=== PATIENT | female | born 1960 | race Hispanic/Latino ===

== ENCOUNTER 2018-05-25 11:38 | Inpatient (IN) | payer OTHER, SELFPAY ==
[2018-05-25 12:08] LABS: Arterial Blood Carboxyhemoglob 1.1 % (0-1.5); Blood Gas Oxyhemoglobin 93.4 % (94-97); Blood O2 Saturation 95.6 % (92-98.5)
[2018-05-25] MEDS ORDERED: FUROSEMIDE 40 MG/4 ML VIAL ONE (12:26)
[2018-05-25 12:33] LABS: Absolute Monocytes 0.7 K/uL (0.1-1.3); Absolute Neutrophil 6.3 K/uL (1.8-8.0); Basophils % 0.8 % (0-1.3); Eosinophils % 2.5 % (0-4.4); Lymphocytes % 21.3 % (15.3-44.8); MCH 27.6 pg (27.0-35.0); MCV 84.7 fL (80-100); MPV 10.1 fL (7.6-11.3); Monocytes % 7.2 % (3.3-12.3); RBC Red Blood Cell Count 4.13 M/uL (3.86-4.86)
[2018-05-25 12:45] LABS: Protime INR 1.03
[2018-05-25 12:57] LABS: ALT/SGPT 20 U/L (12-78); AST/SGOT 24 U/L (15-37); Albumin 3.4 g/dL (3.4-5.0); Alkaline Phosphatase 216 U/L (45-117); BUN Blood Urea Nitrogen 71 mg/dL (7-18); Bicarbonate 23 mmol/L (21-32); Bilirubin Direct 0.1 mg/dL (0-0.2); Bilirubin Total 0.4 mg/dL (0.2-1.0); Glucose Level 242 mg/dL (74-106); Magnesium 2.3 mg/dL (1.8-2.4); NT PRO-BNP 9026 pg/mL (<125); Potassium 4.9 mmol/L (3.5-5.1); Protein, Total 8.1 g/dL (6.4-8.2); Sodium Level 138 mmol/L (136-145); Troponin (Emerg Dept Use Only) < 0.02 ng/mL (0.0-0.045)
--- NOTE | 2018-05-25 13:47 | ER ---
Nurse's Notes [facility] Name: Margarita Dominique Age: 58 yrs Sex: Female : 1960 Arrival Date: 05/25/2018 Time: 11:40 Bed 4 Private MD: Diagnosis: Systolic (congestive) heart failure;Acute respiratory failure with hypoxia;Lobar pneumonia, unspecified organism Presentation: 05/25 11:42 Presenting complaint: Child states: left sided chest pain and SOB started yesterday. sv Transition of care: patient was not received from another setting of care. Onset of symptoms was May 24, 2018. Care prior to arrival: None. 11:42 Method Of Arrival: Wheelchair sv 11:42 Acuity: YEFRI 2 sv 13:53 Risk Assessment: Do you want to hurt yourself or someone else? Patient reports no tw2 desire to harm self or others. Initial Sepsis Screen: Does the patient meet any 2 criteria? No. Patient's initial sepsis screen is negative. Does the patient have a suspected source of infection? No. Patient's initial sepsis screen is negative. Triage Assessment: 11:35 Respiratory: Onset: The symptoms/episode began/occurred yesterday, the patient has tw2 moderate shortness of breath. 11:42 General: Appears distressed, Behavior is calm, cooperative. Pain: Complains of pain in sv anterior aspect of left upper chest and left breast. Neuro: Level of Consciousness is awake, alert, obeys commands, Oriented to person, place, time, situation, Moves all extremities. Full function. Respiratory: Reports shortness of breath at rest on exertion labored breathing since yesterday Respiratory effort is even, labored, Respiratory pattern is symmetrical, tachypnea. Historical: - Allergies: 11:56 No Known Allergies; sv - Home Meds: 14:00 hydralazine 25 mg Oral tab 1 tab 3 times per day [Active]; fluticasone 50 mcg/actuation tw2 nasal spsn 1 spray 2 times per day [Active]; Novolin R 12 units with meal Sub-Q [Active]; amlodipine 10 mg tab 1 tab once daily [Active]; aspirin 81 mg Oral chew 1 tab once daily [Active]; furosemide 20 mg Oral tab 1 tab once daily [Active]; isosorbide dinitrate 30 mg Oral tab 1 tab once per day [Active]; vitamin D 2, 50,000 units once weekly [Active]; clopidogrel 75 mg oral tab 1 tab once daily [Active]; Synthroid 25 mcg Oral tab 1 tab once daily [Active]; gabapentin 100 mg oral cap 1 caps once nightly [Active]; atorvastatin 40 mg oral tab 1 tab once daily [Active]; losartan 100 mg oral tab 1 tab once daily [Active]; cyclobenzaprine 10 mg Oral tab 1 tab once per day [Active]; Lantus 100 unit/mL Sub-Q soln 10 units nightly [Active]; carvedilol 25 mg oral tab 1 tab 2 times per day [Active]; - PMHx: 11:56 heart failure; Hypertension; Diabetes - NIDDM; Hypothyroidism; Vitamin D deficiency; sv - Immunization history:: Adult Immunizations. - Social history:: The patient lives at home, Smoking status: . - Ebola Screening: : Patient denies travel to an Ebola-affected area in the 21 days before illness onset. Screenin:52 Abuse screen: Denies threats or abuse. Nutritional screening: No deficits noted. tw2 Tuberculosis screening: No symptoms or risk factors identified. Fall Risk Secondary diagnosis (15 points) impaired mobility. Assessment: 11:45 General: Appears well groomed, Behavior is drowsy. Pain: Denies pain. Neuro: Level of tw2 Consciousness is awake, obeys commands, Oriented to person, place, situation. Cardiovascular: Rhythm is regular. Respiratory: Airway is patent Respiratory effort is shallow, weak, Respiratory pattern is hypoventilation Breath sounds are diminished bilaterally. GI: No signs and/or symptoms were reported involving the gastrointestinal system. Abdomen is flat. : No signs and/or symptoms were reported regarding the genitourinary system. EENT: No signs and/or symptoms were reported regarding the EENT system. Derm: No signs and/or symptoms reported regarding the dermatologic system. Musculoskeletal: Amputation of Right BKA. 12:55 Reassessment: Patient appears in no apparent distress at this time. No changes from tw2 previously documented assessment. Patient and/or family updated on plan of care and expected duration. Pain level reassessed. 13:47 Reassessment: Patient appears in no apparent distress at this time. No changes from tw2 previously documented assessment. Patient and/or family updated on plan of care and expected duration. Pain level reassessed. 13:47 Reassessment: pts SON: Brian . tw2 14:33 Reassessment: Patient appears in no apparent distress at this time. No changes from tw2 previously documented assessment. Patient and/or family updated on plan of care and expected duration. Pain level reassessed. 15:30 Reassessment: Patient appears in no apparent distress at this time. No changes from tw2 previously documented assessment. Patient and/or family updated on plan of care and expected duration. Pain level reassessed. 16:16 Reassessment: Patient appears in no apparent distress at this time. No changes from tw2 previously documented assessment. Patient and/or family updated on plan of care and expected duration. Pain level reassessed. 17:20 Reassessment: Patient appears in no apparent distress at this time. No changes from tw2 previously documented assessment. Patient and/or family updated on plan of care and expected duration. Pain level reassessed. 18:27 Reassessment: Patient appears in no apparent distress at this time. No changes from tw2 previously documented assessment. Patient and/or family updated on plan of care and expected duration. Pain level reassessed. Vital Signs: 11:43 Pulse Ox 80% on R/A; sv 11:50 BP 203 / 86; Pulse 99; Resp 17; Pulse Ox 92% on 4 lpm NC; tw2 12:22 BP 197 / 93; Pulse 99; Resp 24; Temp 98.3(TE); Pulse Ox 93% on 30% BiPAP; tw2 12:55 BP 195 / 90; Pulse 97; Resp 21; Pulse Ox 93% on BiPAP; tw2 13:45 BP 190 / 91; Pulse 96; Resp 18; Pulse Ox 95% on BiPAP; tw2 14:32 BP 165 / 85; Pulse 95; Resp 16; Pulse Ox 98% on BiPAP; tw2 15:30 BP 187 / 87; Pulse 95; Resp 15; Pulse Ox 99% on BiPAP; tw2 16:15 BP 180 / 97; Pulse 94; Resp 16; Pulse Ox 99% on R/A; tw2 17:00 BP 161 / 73; Pulse 84; Resp 17; Pulse Ox 100% on BiPAP; tw2 18:04 BP 167 / 83; Pulse 90; Resp 17; Pulse Ox 99% on BiPAP; tw2 11:43 Pt placed on O2 \T\ 4L per NC. O2 sat up to 90%. Pt placed on 100% NRB \T\ 1151, O2 sat up sv to 100%. 11:50 pt switched to non-rebreather at this time, will continue to monitor tw2 12:22 rate 16, 10/5 tw2 ED Course: 11:35 Placed in gown. Bed in low position. Side rails up X2. Adult w/ patient. Cardiac tw2 monitor on. Pulse ox on. NIBP on. Warm blanket given. 11:40 Patient arrived in ED. tw3 11:40 Missed attempt(s): 22 gauge in right wrist. Bleeding controlled, band aid applied, tw2 catheter tip intact. Inserted saline lock: 24 gauge in left hand, using aseptic technique. Blood collected. 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 11:52 Sunil Conklin MD is Attending Physician. gs 11:55 Triage completed. sv 12:19 Guadalupe Levy RN is Primary Nurse. tw2 12:19 BIPAP Sent. tw2 12:55 Barreto cath inserted, using sterile technique, 18 Fr., by tx, balloon inflated, to tw2 gravity drainage, returned TIFFANY Courtney \T\ TIFFANY Paredes served as analyst microbiology lab. Patient tolerated well. 13:10 XRAY Chest (1 view) In Process Unspecified. EDMS 13:45 Dylon Gomez MD is Hospitalizing Provider. gs 15:58 Blood Culture* Sent. tw2 18:26 No provider procedures requiring assistance completed. Patient admitted, IV remains in tw2 place. Administered Medications: 13:00 Drug: Lasix 80 mg Route: IVP; Site: left hand; tw2 13:47 Follow up: Response: No adverse reaction tw2 14:07 Drug: hydrALAZINE 10 mg Route: IV; Rate: calculated rate; Site: left hand; tw2 14:10 Follow up: Response: No adverse reaction; IV Status: Completed infusion tw2 18:25 Follow up: Response: No adverse reaction; Blood pressure is lowered; 2nd dose not given tw2 per pts bp 16:05 Drug: Rocephin - (cefTRIAXone) 1 grams Route: IVPB; Infused Over: 5 mins; Site: left tw2 hand; 16:10 Follow up: Response: No adverse reaction; IV Status: Completed infusion tw2 16:15 Drug: LevaQUIN 500 mg Volume: 100 ml; Route: IVPB; Infused Over: 60 mins; Site: left tw2 hand; 17:15 Follow up: Response: No adverse reaction; IV Status: Completed infusion tw2 Point of Care Testing: Blood Glucose: 12:58 Blood Glucose: 273 mg/dL; tw2 15:54 Blood Glucose: 261 mg/dL; tw2 Ranges: Intake: Outcome: 13:47 Decision to Hospitalize by Provider. gs 18:26 Admitted to Med/surg accompanied by tech, via stretcher, room 429, with oxygen, with tw2 chart, Report called to tiffany Chowdary 18:26 Condition: stable 18:26 Instructed on the need for admit. 18:28 Patient left the ED. tw2 Signatures: Dispatcher [employer] Madeleine Marinelli RN RN Guadalupe Levy RN RN tw2 Devin, Maribel tw3 Sunil Conklin MD MD Corrections: (The following items were deleted from the chart) 18:02 12:22 BP 197 / 93; Pulse 99bpm; Resp 24bpm; Pulse Ox 93% 02 30% BiPAP; Temp 98.3F tw2 Temporal; rate 10/5; tw2 18:26 18:04 BP 167 / 3; Pulse 90bpm; Resp 17bpm; Pulse Ox 99% BiPAP; tw2 tw2
--- NOTE | 2018-05-25 13:47 | EDPHYS ---
Physician Documentation [facility] Name: Margarita Dominique Age: 58 yrs Sex: Female : 1960 Arrival Date: 05/25/2018 Time: 11:40 Bed 4 Private MD: ED Physician Sunil Conklin HPI: 05/25 13:34 This 58 yrs old Female presents to ER via Wheelchair with complaints of Breathing gs Difficulty. 13:34 The patient has shortness of breath at rest. Onset: The symptoms/episode began/occurred gs today. Duration: The symptoms are continuous. The patient's shortness of breath has no apparent modifying factors. Associated signs and symptoms: Pertinent negatives: non-productive cough, productive cough, fever. Severity of symptoms: At their worst the symptoms were severe in the emergency department the symptoms are unchanged. The patient has experienced similar episodes in the past, a few times. Historical: - Allergies: 11:56 No Known Allergies; sv - Home Meds: 14:00 hydralazine 25 mg Oral tab 1 tab 3 times per day [Active]; fluticasone 50 mcg/actuation tw2 nasal spsn 1 spray 2 times per day [Active]; Novolin R 12 units with meal Sub-Q [Active]; amlodipine 10 mg tab 1 tab once daily [Active]; aspirin 81 mg Oral chew 1 tab once daily [Active]; furosemide 20 mg Oral tab 1 tab once daily [Active]; isosorbide dinitrate 30 mg Oral tab 1 tab once per day [Active]; vitamin D 2, 50,000 units once weekly [Active]; clopidogrel 75 mg oral tab 1 tab once daily [Active]; Synthroid 25 mcg Oral tab 1 tab once daily [Active]; gabapentin 100 mg oral cap 1 caps once nightly [Active]; atorvastatin 40 mg oral tab 1 tab once daily [Active]; losartan 100 mg oral tab 1 tab once daily [Active]; cyclobenzaprine 10 mg Oral tab 1 tab once per day [Active]; Lantus 100 unit/mL Sub-Q soln 10 units nightly [Active]; carvedilol 25 mg oral tab 1 tab 2 times per day [Active]; - PMHx: 11:56 heart failure; Hypertension; Diabetes - NIDDM; Hypothyroidism; Vitamin D deficiency; sv - Immunization history:: Adult Immunizations. - Social history:: The patient lives at home, Smoking status: . - Ebola Screening: : Patient denies travel to an Ebola-affected area in the 21 days before illness onset. ROS: 13:34 All other systems are negative. gs Exam: 13:34 Head/Face: Normocephalic, atraumatic. Eyes: Pupils equal round and reactive to light, gs extra-ocular motions intact. Lids and lashes normal. Conjunctiva and sclera are non-icteric and not injected. Cornea within normal limits. Periorbital areas with no swelling, redness, or edema. ENT: Nares patent. No nasal discharge, no septal abnormalities noted. Tympanic membranes are normal and external auditory canals are clear. Oropharynx with no redness, swelling, or masses, exudates, or evidence of obstruction, uvula midline. Mucous membranes moist. Neck: Trachea midline, no thyromegaly or masses palpated, and no cervical lymphadenopathy. Supple, full range of motion without nuchal rigidity, or vertebral point tenderness. No Meningismus. Chest/axilla: Normal chest wall appearance and motion. Nontender with no deformity. No lesions are appreciated. 13:34 Abdomen/GI: Soft, non-tender, with normal bowel sounds. No distension or tympany. No guarding or rebound. No evidence of tenderness throughout. Back: No spinal tenderness. No costovertebral tenderness. Full range of motion. Skin: Warm, dry with normal turgor. Normal color with no rashes, no lesions, and no evidence of cellulitis. Neuro: Awake and alert, GCS 15, oriented to person, place, time, and situation. Cranial nerves II-XII grossly intact. Motor strength 5/5 in all extremities. Sensory grossly intact. Cerebellar exam normal. Normal gait. 13:34 Constitutional: The patient appears alert, awake, in obvious distress, severely distressed. 13:34 Cardiovascular: Rate: tachycardic, Rhythm: regular, Pulses: no pulse deficits are appreciated. 13:34 ECG was reviewed by the Attending Physician. 13:34 Respiratory: severe repiratory distress is noted, Respirations: tachypnea, Breath sounds: rales, that are moderate, are located in both bases. 13:34 Musculoskeletal/extremity: Perfusion: the patient is warm, Edema, 2+ to the left midcalf and left ankle is noted, amputation on rle. Vital Signs: 11:43 Pulse Ox 80% on R/A; sv 11:50 BP 203 / 86; Pulse 99; Resp 17; Pulse Ox 92% on 4 lpm NC; tw2 12:22 BP 197 / 93; Pulse 99; Resp 24; Temp 98.3(TE); Pulse Ox 93% on 30% BiPAP; tw2 12:55 BP 195 / 90; Pulse 97; Resp 21; Pulse Ox 93% on BiPAP; tw2 13:45 BP 190 / 91; Pulse 96; Resp 18; Pulse Ox 95% on BiPAP; tw2 14:32 BP 165 / 85; Pulse 95; Resp 16; Pulse Ox 98% on BiPAP; tw2 15:30 BP 187 / 87; Pulse 95; Resp 15; Pulse Ox 99% on BiPAP; tw2 16:15 BP 180 / 97; Pulse 94; Resp 16; Pulse Ox 99% on R/A; tw2 17:00 BP 161 / 73; Pulse 84; Resp 17; Pulse Ox 100% on BiPAP; tw2 18:04 BP 167 / 83; Pulse 90; Resp 17; Pulse Ox 99% on BiPAP; tw2 11:43 Pt placed on O2 \T\ 4L per NC. O2 sat up to 90%. Pt placed on 100% NRB \T\ 1151, O2 sat up sv to 100%. 11:50 pt switched to non-rebreather at this time, will continue to monitor tw2 12:22 rate 16, 03/26 tw2 MDM: 11:56 Patient medically screened. gs 13:34 Differential diagnosis: CHF exacerbation, Chronic Obstructive Pulmonary Disease gs Myocardial Infarction pulmonary edema. Data reviewed: vital signs, nurses notes. 05/25 11:57 Order name: Basic Metabolic Panel; Complete Time: 13:16 05/25 11:57 Order name: CBC with Diff; Complete Time: 13:16 05/25 11:57 Order name: LFT's; Complete Time: 13:16 05/25 11:57 Order name: Magnesium; Complete Time: 13:16 05/25 11:57 Order name: NT PRO-BNP; Complete Time: 13:16 05/25 11:57 Order name: PT-INR; Complete Time: 13:16 05/25 11:57 Order name: Troponin (emerg Dept Use Only); Complete Time: 13:16 05/25 11:57 Order name: XRAY Chest (1 view); Complete Time: 15:35 gs 05/25 11:57 Order name: BIPAP 05/25 11:57 Order name: ABG 05/25 15:36 Order name: Blood Culture* 05/25 11:54 Order name: EKG; Complete Time: 11:54 sv 05/25 11:54 Order name: EKG - Nurse/Tech; Complete Time: 13:49 sv 05/25 11:57 Order name: Cardiac monitoring; Complete Time: 12:19 05/25 11:57 Order name: IV Saline Lock; Complete Time: 12:19 gs 05/25 11:57 Order name: Labs collected and sent; Complete Time: 12:19 05/25 11:57 Order name: O2 Per Protocol; Complete Time: 12:19 05/25 11:57 Order name: O2 Sat Monitoring; Complete Time: 12:19 gs EC:34 Rate is 100 beats/min. Rhythm is regular. RI interval is normal. QRS interval is gs normal. QT interval is normal. T waves are Inverted. Clinical impression: Abnormal EKG without significant change. Interpreted by me. Administered Medications: 13:00 Drug: Lasix 80 mg Route: IVP; Site: left hand; tw2 13:47 Follow up: Response: No adverse reaction tw2 14:07 Drug: hydrALAZINE 10 mg Route: IV; Rate: calculated rate; Site: left hand; tw2 14:10 Follow up: Response: No adverse reaction; IV Status: Completed infusion tw2 18:25 Follow up: Response: No adverse reaction; Blood pressure is lowered; 2nd dose not given tw2 per pts bp 16:05 Drug: Rocephin - (cefTRIAXone) 1 grams Route: IVPB; Infused Over: 5 mins; Site: left tw2 hand; 16:10 Follow up: Response: No adverse reaction; IV Status: Completed infusion tw2 16:15 Drug: LevaQUIN 500 mg Volume: 100 ml; Route: IVPB; Infused Over: 60 mins; Site: left tw2 hand; 17:15 Follow up: Response: No adverse reaction; IV Status: Completed infusion tw2 Point of Care Testing: Blood Glucose: 12:58 Blood Glucose: 273 mg/dL; tw2 15:54 Blood Glucose: 261 mg/dL; tw2 Ranges: Critical Glucose Levels:Adult <50 mg/dl or >400 mg/dl <40 mg/dl or >180 mg/dl Disposition: 13:34 Critical Care:. Disposition: 05/25/18 13:47 Hospitalization ordered by Dylon Gomez for Inpatient Admission. Preliminary diagnosis are Systolic (congestive) heart failure, Acute respiratory failure with hypoxia, Lobar pneumonia, unspecified organism. - Bed requested for Telemetry/MedSurg (Inpatient). - Status is Inpatient Admission. tw2 - Condition is Stable. - Problem is new. - Symptoms have improved. UTI on Admission? No Critical care time excluding procedures: 13:34 Critical care time: Bedside Care: 10 minutes, Consultation: 10 minutes, Family gs Intervention: 10 minutes. Total time: 30 minutes Signatures: Dispatcher [employer] EDMadeleine Yao RN RN Guadalupe Levy RN RN tw2 Sunil Conklin MD MD Ricarda Pablo Corrections: (The following items were deleted from the chart) 15:36 13:47 Hospitalization Ordered by Dylon Gomez MD for Inpatient Admission. Preliminary gs diagnosis is Systolic (congestive) heart failure; Acute respiratory failure with hypoxia. Bed requested for Telemetry/MedSurg (Inpatient). Status is Inpatient Admission. Condition is Stable. Problem is new. Symptoms have improved. UTI on Admission? No. gs 17:17 15:36 05/25/2018 13:47 Hospitalization Ordered by Dylon Gomez MD for Inpatient eb Admission. Preliminary diagnosis is Systolic (congestive) heart failure; Acute respiratory failure with hypoxia; Lobar pneumonia, unspecified organism. Bed requested for Telemetry/MedSurg (Inpatient). Status is Inpatient Admission. Condition is Stable. Problem is new. Symptoms have improved. UTI on Admission? No. gs 18:28 17:17 05/25/2018 13:47 Hospitalization Ordered by Dylon Gomez MD for Inpatient tw2 Admission. Preliminary diagnosis is Systolic (congestive) heart failure; Acute respiratory failure with hypoxia; Lobar pneumonia, unspecified organism. Bed requested for Telemetry/MedSurg (Inpatient). Status is Inpatient Admission. Condition is Stable. Problem is new. Symptoms have improved. UTI on Admission? No. eb
[2018-05-25] MEDS ORDERED: HYDRALAZINE HCL 20 MG/ML VIAL ONE (14:12)
--- NOTE | 2018-05-25 14:19 | RAD REPORT ---
EXAM DESCRIPTION: Litzy Single View05/25/2018 1:09 pm CLINICAL HISTORY: Chest pain COMPARISON: none FINDINGS: Right basilar consolidation. Mild additional bilateral pulmonary opacities. The heart is mildly enlarged IMPRESSION: Right basilar consolidation probably representing pneumonia. This should be followed un til it is clear to help exclude a post obstructive process/underlying mass Mild additional bilateral pulmonary opacities may represent superimposed mild interstitial pulmonary edema
[2018-05-25] MEDS ORDERED: CEFTRIAXONE/SWI 1gm 1 GM/10 ML SYR ONE (16:09)
[2018-05-25] MEDS ORDERED: Levofloxacin500mg IV 500 MG/100 ML BAG IV ONE (16:09)
[2018-05-25] MEDS ORDERED: ENOXAPARIN 40 MG/0.4 ML SQ SCH (21:00)
[2018-05-25] MEDS: INSULIN -REGULAR HUMAN 50 UNIT/0.5 ML ML SQ SCH (21:10)
[2018-05-25] MEDS: ENOXAPARIN 30 MG/0.3 ML SQ SCH (21:10)
--- NOTE | 2018-05-25 22:41 | EKG ---
Test Date: 2018-05-25 Test Time: 11:46:36 Suture Winder Hand: MELODY MEASUREMENT RESULTS: Intervals: Rate: 100 AK: 154 QRSD: 96 QT: 358 QTc: 461 [place]: P: 70 AK: 154 QRS: 71 T: 259 INTERPRETIVE STATEMENTS: Normal sinus rhythm Nonspecific ST and T wave abnormality Prolonged QT Abnormal ECG No previous ECG available for comparison Electronically Signed On 05-25-18 22:41:14 [employer] H[employer] by Samy Bertrand
[2018-05-26 06:44] LABS: Absolute Lymphocytes (CBC) 2.4 K/uL (0.7-4.9); Absolute Monocytes 0.7 K/uL (0.1-1.3); Absolute Neutrophil 5.1 K/uL (1.8-8.0); Basophils % 0.6 % (0-1.3); Eosinophils % 2.2 % (0-4.4); Hematocrit 28.9 % (36.0-45.0); Lymphocytes % 28.8 % (15.3-44.8); MCH 27.8 pg (27.0-35.0); MCV 85.1 fL (80-100); MPV 10.1 fL (7.6-11.3); Monocytes % 8.4 % (3.3-12.3)
[2018-05-26 07:00] LABS: Albumin 2.5 g/dL (3.4-5.0); Bilirubin Total 0.3 mg/dL (0.2-1.0); Potassium 4.5 mmol/L (3.5-5.1); Protein, Total 6.3 g/dL (6.4-8.2)
[2018-05-26] MEDS: INSULIN -REGULAR HUMAN 50 UNIT/0.5 ML ML SQ SCH ×4 (07:30→21:09)
[2018-05-26] MEDS: ENOXAPARIN 30 MG/0.3 ML SQ SCH (08:17)
--- NOTE | 2018-05-26 08:50 | P.HP ---
Certification for Inpatient Patient admitted to: Inpatient With expected LOS: >2 Midnights Patient will require the following post-hospital care: None Practitioner: I am a practitioner with admitting privileges, knowledge of patient current condition, hospital course, and medical plan of care. Services: Services provided to patient in accordance with Admission requirements found in Title 42 Section 412.3 of the Code of Federal Regulations Patient History Date of Service: 05/25/18 Reason for admission: Shortness of breath/respiratory failure History of Present Illness: Patient is a 58-year-old female who came to the hospital with shortness of breath. Patient has been having difficulty with her breathing for the last couple of days. Her symptoms have gradually worsened. She came into the hospital for further evaluation. Patient had malignant hypertension. Blood pressure was 200/100 on arrival. Patient was started on IV diuretics. Patient was initially on BiPAP and this is weaned off. Currently on 3 L. Patient will be admitted to the hospital workup for congestive heart failure. Patient will also need renal Consult for acute on chronic kidney failure. Will get a renal ultrasound as well. Allergies No Known Allergies Allergy (Unverified 05/25/18 16:13) Home Medications: Amlodipine [Norvasc*] 10 mg PO DAILY 05/26/18 Aspirin [Aspirin EC 81 MG] 81 mg PO DAILY 05/26/18 Atorvastatin Calcium [Lipitor*] 40 mg PO DAILY 05/26/18 Carvedilol [Coreg*] 25 mg PO BID 05/26/18 Clopidogrel Bisulfate [Clopidogrel] 75 mg PO DAILY 05/26/18 Cyclobenzaprine [Flexeril*] 10 mg PO DAILY 05/26/18 Ergocalciferol (Vitamin D2) [Vitamin D2] 50,000 units PO EVERY 7TH DAY 05/26/18 Fluticasone [Flonase 50MCG Nasal [place]*] 2 puff IH DAILY 05/26/18 Furosemide [Lasix*] 20 mg PO DAILY 05/26/18 Gabapentin [Neurontin*] 100 mg PO BEDTIME 05/26/18 Hydralazine [Apresoline*] 25 mg PO TID 05/26/18 Insulin -Regular Human [Novolin -R*] See Protocol SQ AC 05/26/18 Insulin Glargine Human [Lantus*] 10 units SQ BEDTIME 05/26/18 Isosorbide Dinitrate 30 mg PO DAILY 05/26/18 Levothyroxine [Synthroid*] 25 mcg PO DAILY 05/26/18 Losartan Potassium 100 mg PO DAILY 05/26/18 - Past Medical/Surgical History Has patient received pneumonia vaccine in the past: Yes Diabetic: Yes -: HTN -: DM -: "thyroid issues" -: stroke X2 with weakness to L eye and poor L eye vision -: cardiac stent X1 -: cholecystectomy - Family History Father Medical History: Diabetes Mother Medical History: Heart disease, Hypertension, Diabetes - Social History Smoking Status: Never smoker Alcohol use: No CD- Drugs: No Caffeine use: Yes Place of Residence: Home Review of Systems 10-point ROS is otherwise unremarkable Physical Examination - Vital Signs Temperature: 99.3 F Blood Pressure: 168/78 Pulse: 85 Respirations: 19 Pulse Ox (%): 99 - Physical Exam General: Alert, In no apparent distress, Oriented x3 HEENT: Atraumatic, PERRLA, Mucous membr. moist/pink, EOMI, Sclerae nonicteric Neck: Supple, 2+ carotid pulse no bruit, No LAD, Without JVD or thyroid abnormality Respiratory: Diminished, Crackles/rales Cardiovascular: Regular rate/rhythm, Normal S1 S2, Systolic murmur Gastrointestinal: Normal bowel sounds, Soft and benign, Non-distended, No tenderness Musculoskeletal: No clubbing, No tenderness, Swelling Integumentary: No rashes Neurological: Normal gait, Normal speech, Normal strength at 5/5 x4 extr, Normal tone, Sensation intact, Cranial nerves 3-12 intact, Normal affect Lymphatics: No axilla or inguinal lymphadenopathy - Studies Laboratory Data (last 24 hrs) 05/25/18 12:17: PT 12.2, INR 1.03 05/25/18 12:17: WBC 9.2, Hgb 11.4 L, Hct 35.0 L, Plt Count 226 05/25/18 12:17: Sodium 138, Potassium 4.9, BUN 71 H, Creatinine 4.50 H, Glucose 242 H, Magnesium 2.3, Total Bilirubin 0.4, AST 24, ALT 20, Alkaline Phosphatase 216 H Assessment & Plan - Problems (Diagnosis) (1) Congestive heart failure Current Visit: Yes Status: Acute (2) Chronic kidney failure Current Visit: Yes Status: Acute (3) Hypoalbuminemia Current Visit: Yes Status: Acute (4) CVA (cerebral vascular accident) Current Visit: Yes Status: Acute (5) HTN (hypertension) Current Visit: Yes Status: Acute (6) DM2 (diabetes mellitus, type 2) Current Visit: Yes Status: Acute - Plan 1. Echocardiogram 2. No ESTEFANY inhibitor or an ARB secondary to renal function 3. Low dose Beta vern 4. Nephrology consultation 5. Monitor renal function 6. Strict I's and O's 7. Repeat CXR 8. Daily weights 9. Education regarding diet and treatment of congestive heart failure Discharge Plan: Home Plan to discharge in: Greater than 2 days - Advance Directives Does patient have a Living Will: No Does patient have a Durable POA for Healthcare: No - Code Status/Comfort Care Code Status Assessed: Yes Code Status: Full Code Critical Care: No Time Spent Managing PTS Care (In Minutes): 50
[2018-05-26] MEDS ORDERED: FLUTICASONE IH SCH (09:00)
[2018-05-26] MEDS ORDERED: LOSARTAN POTASSIUM 50 MG TABLET PO SCH (09:00)
[2018-05-26] MEDS ORDERED: DRISDOL (VITAMIN D=ERGOCALCIFEROL) 50000 UNIT CAP PO SCH (09:00)
[2018-05-26 09:53] LABS: Thyroid Stimulating Hormone 1.8 uIU/mL (0.360-3.740)
[2018-05-26] MEDS: ASPIRIN EC 81 MG TAB PO SCH (10:02)
[2018-05-26] MEDS: CYCLOBENZAPRINE 10 MG TAB PO SCH (10:02)
[2018-05-26] MEDS: HYDRALAZINE HCL 25 MG TABLET PO SCH ×3 (10:02→21:07)
[2018-05-26] MEDS: CLOPIDOGREL 75 MG TABLET PO SCH (10:02)
[2018-05-26] MEDS: CARVEDILOL 25 MG TAB PO SCH ×2 (10:03→21:07)
[2018-05-26] MEDS: AMLODIPINE 10 MG TAB PO SCH (10:03)
--- NOTE | 2018-05-26 10:13 | ECHO ---
HEIGHT: 5 ft 3 in WEIGHT: 148 lb 0 oz DATE OF STUDY: 05/26/[address]: Delfin Kamara MD 2-DIMENSIONAL: YES M.MODE: YES DOPPLER: YES COLOR FLOW: YES TDS: NO PORTABLE: NO DEFINITY: NO BUBBLE STUDY: NO DIAGNOSIS: CONGESTIVE HEART FAILURE CARDIAC HISTORY: CATHERIZATION: NO SURGERY: NO PROSTHETIC VALVE: NO PACEMAKER: NO MEASUREMENTS (cm) DIASTOLIC (NORMALS) SYSTOLIC (NORMALS) IVSd 1.1 (0.6-1.2) LA Diam 3.7 (1.9-4.0) LVEF 52% LVIDd 4.5 (3.5-5.7) LVIDs 3.3 (2.0-3.5) %FS 26% LVPWd 1.2 (0.6-1.2) Ao Diam 2.2 (2.0-3.7) 2 DIMENSIONAL ASSESSMENT: RIGHT ATRIUM: NORMAL LEFT ATRIUM: NORMAL RIGHT VENTRICLE: NORMAL LEFT VENTRICLE: NORMAL TRICUSPID VALVE: NORMAL MITRAL VALVE: NORMAL PULMONIC VALVE: NORMAL AORTIC VALVE: NORMAL PERICARDIAL EFFUSION: SMALL AORTIC ROOT: NORMAL LEFT VENTRICULAR WALL MOTION: NORMAL DOPPLER/COLOR FLOW: TRACE TRICUSPID REGURGITATION. MILD MITRAL REGURGITATION. NORMAL RIGHT VENTRICULAR SYSTOLIC PRESSURE. COMMENTS: NORMAL LEFT VENTRICULAR EJECTION FRACTION. SMALL PERICARDIAL EFFUSION. TRACE TRICUSPID REGURGITATION. MILD MITRAL REGURGITATION. TECHNOLOGIST: Brooklyn BEE
--- NOTE | 2018-05-26 10:59 | RAD REPORT ---
EXAM DESCRIPTION: US - Renal Ultrasound-Complete - 05/26/2018 10:36 am CLINICAL HISTORY: . Acute renal insufficiency COMPARISON: None. FINDINGS: The right kidney measures 9 cm with an increased echotexture. The left kidney measures 11 cm with an increased echotexture. Hydronephrosis is not seen. The bladder was poorly visualized as it is decompressed IMPRESSION: Increased renal echotexture consistent with parenchymal disease
[2018-05-26] MEDS: ISOSORBIDE DINIT 20 MG TAB PO SCH ×2 (11:16→21:07)
[2018-05-26 11:17] LABS: Absolute Lymphocytes (CBC) 2.1 K/uL (0.7-4.9); Absolute Monocytes 0.6 K/uL (0.1-1.3); Absolute Neutrophil 6.2 K/uL (1.8-8.0); Basophils % 0.8 % (0-1.3); Eosinophils % 2.1 % (0-4.4); Hematocrit 31.1 % (36.0-45.0); Lymphocytes % 23.1 % (15.3-44.8); MCH 27.6 pg (27.0-35.0); MCV 84.3 fL (80-100); Monocytes % 6.7 % (3.3-12.3); RBC Red Blood Cell Count 3.69 M/uL (3.86-4.86)
[2018-05-26 12:10] LABS: Magnesium 2.4 mg/dL (1.8-2.4); Phosphorus 4.9 mg/dL (2.5-4.9); Troponin I 0.12 ng/mL (0.0-0.045)
[2018-05-26] MEDS ORDERED: CEFAZOLIN 1GM (PREMIX IV) 1 GM/50 ML BAG IVPB SCH (12:45)
[2018-05-26 15:05] LABS: Urine Appearance CLEAR; Urine Bilirubin NEGATIVE (NEG); Urine Blood 2+ (NEG); Urine Color YELLOW; Urine Glucose 2+ (NEG); Urine Protein 3+ (NEG); Urine Specific Gravity 1.015 (1.005-1.030); Urine Urobilinogen 0.2 mg/dL (0.2-1.0); Urine pH 6.5 (5.0-7.0)
[2018-05-26 15:59] LABS: Urine Bacteria 20-50 /HPF (<20); Urine Culture Reflex Order REFLEXED; Urine RBC 20-50 /HPF (NONE SEEN)
[2018-05-26] MEDS: FUROSEMIDE 40 MG/4 ML VIAL IV SCH (17:01)
--- NOTE | 2018-05-26 17:44 | CON ---
Date of Consultation: 05/26/2018 Reason: The patient needs dialysis. History Of Present Illness: The patient is a 58-year-old female, who came in with shortness of breat h. Workup revealed acute renal failure. She had a history of chronic kidney disease. She also had congestive heart failure, and once it was evaluated that she needs dialysis, I was consulted. She is awake, alert, and denies any fevers or chills. No sore throat, runny nose, cough, headaches, or diz ziness. No chest pain. Review of Systems: Otherwise, unremarkable. Past Medical History: Significant for hypertension, diabetes, stroke, cardiac stent x1 and now acute renal failure on chronic kidney disease. Past Surgical History: Cholecystectomy. Allergies: NO ALLERGIES. Social History: She denies smoking or drinking. Family History: Significant for diabetes, heart disease, and hypertension. Physical Examination: Vital Signs: Stable. She is afebrile. General: She is awake, alert, and oriented x3. Head and Neck: Cranial nerves 2 through 12 are grossly within normal limits. Neck: No neck masses. No JVD. Throat clear. Neck is supple. Chest: Clear. Heart: S1, S2. Abdomen: Soft. Extremities: Neurovascularly intact. Neuro: Nonfocal. Diagnostic Data: White count is 9.2, H and H is 10.2 and 31.1, platelets 200, INR is 1.03. Chemistr y reveals BUN of 74, creatinine of 4.3, which is actually gotten worse since [facility]. The BUN has gone up, creatinine is slightly less. Assessment: A 58-year-old female with multiple medical problems, acute renal failure. Recommendation: We will schedule the patient for chest tube catheter placement. The patient via tra nslator understands the risks, benefits, and alternatives and agrees to procedure. /MODL Voice ID: [id number] Report ID: [id number]
--- NOTE | 2018-05-26 18:40 | P.PN ---
Subjective Date of Service: 05/27/18 Chief Complaint: Shortness of breath/respiratory failure Physical Examination - Vital Signs Temperature: 99.2 F Blood Pressure: 122/60 Pulse: 78 Respirations: 16 Pulse Ox (%): 95 Assessment And Plan - Plan - Problems (Diagnosis) (1) Congestive heart failure Current Visit: Yes Status: Acute (2) Chronic kidney failure Current Visit: Yes Status: Acute (3) Hypoalbuminemia Current Visit: Yes Status: Acute (4) CVA (cerebral vascular accident) Current Visit: Yes Status: Acute (5) HTN (hypertension) Current Visit: Yes Status: Acute (6) DM2 (diabetes mellitus, type 2) Current Visit: Yes Status: Acute - Plan 1. Echocardiogram normal with ejection fraction of 52 % 2. No ESTEFANY inhibitor or an ARB secondary to renal function 3. Low dose Beta vern 4. Nephrology consultation, recommendations appreciated. 5. Monitor renal function 6. Strict I's and O's 7. General surgery consulted for dialysis catheter placement. 8. Daily weights 9. Education regarding diet and treatment of congestive heart failure
[2018-05-26] MEDS: ATORVASTATIN 40 MG TAB PO SCH (21:07)
[2018-05-26] MEDS: GABAPENTIN 100 MG CAP PO SCH (21:07)
[2018-05-26] MEDS: INSULIN GLARGINE 100 UNITS/ML SQ SCH (21:09)
[2018-05-26] MEDS: CALCITROL 0.25 MCG CAP PO SCH (22:37)
--- NOTE | 2018-05-27 01:49 | CON ---
Date of Consultation: 05/26/2018 Additional Consulting Physician: Dr. Kamara. Reason For Consultation: Elevated BUN and creatinine, fluid management. History Of Present Illness: This is a pleasant 58-year-old female with significant past medical hist ory of diabetes complicated with neuropathy, nephropathy, and retinopathy, hypertension, hyperlipidem ia, chronic kidney disease. According to the family, the patient seen by her primary care and she wa s referred to Nephrology, but she never went there. Mentioned that she going to need to be on dialys is. Apparently, her lab back in March her GFR of 13, creatinine 3.7. The patient had peripheral v ascular disease, status post right below-knee amputation. The patient was in her regular state of he alth until couple of days ago when she started having increase in her shortness of breath and chest t ightness. For that reason, she came to the hospital, found to have elevated BUN and creatinine, BUN 74, creatinine of 4.3. For that reason, the patient was admitted and we have been consulted. The jim hansen denied taking any nonsteroidal. The patient been on ESTEFANY inhibitor. Past Medical History: Include: 1.Hypertension. 2.Hyperlipidemia. 3.Coronary artery disease. 4.Peripheral vascular disease. 5.Chronic kidney disease stage 4/5 secondary to diabetes. Social History: Denies smoking. Denies drinking. Denies drugs abuse. Past Surgical History: Include right below-knee amputation. Family History: Positive for diabetes and hypertension. Allergies: NO KNOWN DRUGS ALLERGY. Review of Systems: Head and Neck: No red eye. No ear pain. GI: No nausea, no vomiting. : No polyuria, no dysuria, no hematuria. Glassware Verifier: No vaginal discharge. Respiratory: Has shortness of breath. Cardiovascular: Has orthopnea. Endocrine: No polydipsia. Skin: No rash. Neuro: Has neuropathy. Musculoskeletal: Has leg pain. Medications: Home medications include losartan, carvedilol, insulin, levothyroxine, atorvastatin, La six, amlodipine and hydralazine. Current medications in the hospital include losartan, insulin, levothyroxine, isosorbide, atorvastati n, and Norvasc. Physical Examination: Vital Signs: Blood pressure 133/63, pulse of 84. Chest: Crackles on the base. Heart: S1, S2. Systolic murmur. Abdomen: Soft, nontender. Extremity: Right below-knee amputation. Trace edema. Neurological: Alert, oriented x3. No focal. No tremor. Laboratory Data: Sodium 141, potassium 5, bicarb 23, BUN 74, creatinine 4.3, calcium 8.5, phosphorus 4.9, magnesium 2.4. WBC 9.2, H and H 10.2/31.1, platelet of 200. Assessment And Plan: 1.Chronic kidney disease stage 5 progression to end-stage renal disease, need to be started on dialy sis. I am going to arrange for PermCath placement and we will start the patient on dialysis upon yancy cement of the catheter. 2.Hypertension. We will utilize blood pressure for more ultrafiltration and diuresis. I am going t o go ahead and discontinue losartan for the time being. Hold hydralazine for now. 3.Anemia of chronic kidney disease. We will send for anemia workup and we will follow up. 4.Secondary hyperparathyroidism. We will start the patient on calcitriol. 5.Diabetes as by primary. 6.Congestive heart failure, over volume secondary to renal failure, cardiorenal. We will continue d iuresis. We will ultrafiltrate the patient. Thank you Dr. Kamara for allowing us to participate in the care of your patient. RAQUEL/EDOUARD Voice ID: [id number] Report ID: [id number]
[2018-05-27] MEDS: LEVOTHYROXINE SOD 0.025 MG TAB PO SCH (06:30)
[2018-05-27 07:25] LABS: Absolute Monocytes 0.7 K/uL (0.1-1.3); Absolute Neutrophil 5.2 K/uL (1.8-8.0); Basophils % 0.6 % (0-1.3); Eosinophils % 3.1 % (0-4.4); Hematocrit 29.1 % (36.0-45.0); MCH 27.8 pg (27.0-35.0); MCV 84.2 fL (80-100); MPV 9.8 fL (7.6-11.3); Monocytes % 8.1 % (3.3-12.3); RBC Red Blood Cell Count 3.46 M/uL (3.86-4.86)
[2018-05-27] MEDS: INSULIN -REGULAR HUMAN 50 UNIT/0.5 ML ML SQ SCH ×4 (07:30→21:00)
[2018-05-27] MEDS ORDERED: NS 0.9% VIAL 10 ML ONE (08:31)
[2018-05-27] MEDS ORDERED: HEPARIN 5000 UNIT/ML 1 ML VIAL ONE (08:31)
[2018-05-27] MEDS ORDERED: NA CHLORIDE 0.9% 100 ML IV ONE (08:31)
[2018-05-27 08:36] LABS: Rheumatoid Factor NEG (NEG)
[2018-05-27] MEDS ORDERED: NA CHLORIDE 0.9% 500 ML ONE (08:41)
[2018-05-27] MEDS ORDERED: CEFAZOLIN 1GM (PREMIX IV) 1 GM/50 ML BAG ONE (08:50)
[2018-05-27] MEDS: FUROSEMIDE 40 MG/4 ML VIAL IV SCH ×2 (09:00→19:30)
[2018-05-27] MEDS: CARVEDILOL 25 MG TAB PO SCH ×2 (09:00→23:31)
[2018-05-27] MEDS: CYCLOBENZAPRINE 10 MG TAB PO SCH (09:00)
[2018-05-27] MEDS: AMLODIPINE 10 MG TAB PO SCH (09:00)
[2018-05-27] MEDS: ISOSORBIDE DINIT 20 MG TAB PO SCH ×2 (09:00→23:26)
[2018-05-27] MEDS: CLOPIDOGREL 75 MG TABLET PO SCH (09:00)
[2018-05-27] MEDS: ENOXAPARIN 30 MG/0.3 ML SQ SCH (09:00)
[2018-05-27] MEDS: ASPIRIN EC 81 MG TAB PO SCH (09:00)
[2018-05-27] MEDS: LIDOCAINE 1% MPF 5 ML VIAL ONE ×2 (09:00→09:17)
[2018-05-27] MEDS ORDERED: MIDAZOLAM HCL 2 MG/2 ML INJ ONE (09:11)
[2018-05-27] MEDS ORDERED: PROPOFOL 200 MG/20 ML VIAL IV ONE (09:29)
[2018-05-27] MEDS ORDERED: FENTANYL CITR 100 MCG/2 ML ONE (09:29)
[2018-05-27] MEDS ORDERED: LIDOCAINE 1% MPF 5 ML VIAL ONE (09:29)
--- NOTE | 2018-05-27 10:23 | P.OP ---
Preoperative diagnosis: ARF Postoperative diagnosis: same Primary procedure: DUNCAN Menjivar, fluoroscopy Anesthesia: MAC Estimated blood loss: min Specimen: none Findings: normal anatomy Complications: None Transferred to: Recovery Room Condition: Good
--- NOTE | 2018-05-27 10:25 | RAD REPORT ---
EXAM DESCRIPTION: RAD - Fluoroscopy <1 Hour - 05/27/2018 10:20 am CLINICAL HISTORY: Venous catheter insertion. HD CATHETER PLACEMENT COMPARISON: No comparisons FINDINGS: Fluoroscopic imaging is submitted from placement of a venous catheter. Details of the pro cedure not available. Fluoroscopy time: 0.3 minutes.
[2018-05-27] MEDS ORDERED: MEPERIDINE HCL 25 MG/0.5 ML ONE (11:20)
--- NOTE | 2018-05-27 11:24 | RAD REPORT ---
EXAM DESCRIPTION: RAD - Chest Single View - 05/27/2018 11:19 am CLINICAL HISTORY: S/P Tesio Chest pain. COMPARISON: Chest Single View dated 05/25/2018 FINDINGS: Portable technique limits examination quality. Right-sided venous catheter is in place with tip in SVC. No pneumothorax is present. The heart is upp er limit of normal in size. No displaced fractures. IMPRESSION: No postprocedure pneumothorax.
[2018-05-27] MEDS: HYDROCODONE/APAP 5/325 MG TAB PO PRN ×2 (12:29→23:32)
[2018-05-27 13:17] LABS: Albumin 2.7 g/dL (3.4-5.0); Bilirubin Total 0.2 mg/dL (0.2-1.0); Phosphorus 5.5 mg/dL (2.5-4.9); Potassium 4.5 mmol/L (3.5-5.1); Protein, Total 6.7 g/dL (6.4-8.2)
[2018-05-27 13:54] LABS: Urine Protein/Creatinine Ratio 6.93 ratio (<0.15)
[2018-05-27] MEDS: ACETAMINOPHEN 500 MG TAB PO PRN (16:56)
[2018-05-27] MEDS: INSULIN GLARGINE 100 UNITS/ML SQ SCH (21:00)
--- NOTE | 2018-05-27 21:27 | P.PN ---
Subjective Date of Service: 05/28/18 Chief Complaint: Shortness of breath/respiratory failure Subjective: No new changes, No C/O voiced Patient seen and examined at bedside. No family at bedside. Chart reviewed and case discussed with nursing staff. Review of Systems As noted Physical Examination - Vital Signs Temperature: 99.2 F Blood Pressure: 122/60 Pulse: 78 Respirations: 16 Pulse Ox (%): 95 - Physical Exam General: Alert, In no apparent distress, Oriented x3 HEENT: Atraumatic, PERRLA, EOMI Neck: Supple, JVD not distended Respiratory: Clear to auscultation bilaterally, Normal air movement Cardiovascular: Regular rate/rhythm, Normal S1 S2 Gastrointestinal: Normal bowel sounds, No tenderness Musculoskeletal: No tenderness Integumentary: No rashes Neurological: Normal speech, Normal tone, Normal affect Lymphatics: No axilla or inguinal lymphadenopathy Assessment And Plan - Plan - Problems (Diagnosis) (1) Congestive heart failure Current Visit: Yes Status: Acute (2) Chronic kidney failure Current Visit: Yes Status: Acute (3) Hypoalbuminemia Current Visit: Yes Status: Acute (4) CVA (cerebral vascular accident) Current Visit: Yes Status: Acute (5) HTN (hypertension) Current Visit: Yes Status: Acute (6) DM2 (diabetes mellitus, type 2) Current Visit: Yes Status: Acute - Plan 1. Echocardiogram normal with ejection fraction of 52 % 2. No ESTEFANY inhibitor or an ARB secondary to renal function 3. Low dose Beta vern 4. Nephrology consultation, recommendations appreciated. pending HD tomorrow 5. Monitor renal function 6. Strict I's and O's 7. General surgery consulted for dialysis catheter placement. Recommendations appreciated 8. Daily weights 9. Education regarding diet and treatment of congestive heart failure
--- NOTE | 2018-05-27 21:29 | OP ---
Date of Procedure: 05/27/2018 Surgeon: August Gore MD Preoperative Diagnosis: Acute renal failure. Postoperative Diagnosis: Acute renal failure. Procedures: Placement of right IJ Tesio catheter, interpretation of intraoperative fluoroscopy. Estimated Blood Loss: Minimal. Specimen: None. Findings: Normal anatomy. Anesthesia: MAC. Complications: None. Disposition: The patient tolerated the procedure in stable condition and taken to recovery in good g eneral condition. Procedure In Detail: The patient was brought to the OR and placed in prone position. MAC anesthesia was begun. The patient was prepped and draped in usual sterile fashion. Lidocaine 1% was infiltrat ed locally. An 18-gauge needle was used to access the right IJ vein. Guidewire was passed. Positio n was confirmed with fluoroscopy and then counterincision was made. Tunneling device was used to rock glenda the catheter between the 2 wounds. Seldinger technique was used. Tip of the catheter was placed in the SVC under fluoroscopy. Catheter was flushed with heparin and packed with heparin with good b lood flow. Then, 3-0 chromic was used to reapproximate the subcutaneous tissue and close the neck wo und and 3-0 nylon was used to secure the tube to the chest wall. Then, a sterile dressing was applie d. The patient was awakened and taken to recovery in good general condition, and chest x-ray has been ordered. CHRISTY/MODL Voice ID: [id number] Report ID: [id number]
[2018-05-27] MEDS: GABAPENTIN 100 MG CAP PO SCH (23:26)
[2018-05-27] MEDS: ATORVASTATIN 40 MG TAB PO SCH (23:31)
--- NOTE | 2018-05-27 23:37 | P.PN ---
Subjective Date of Service: 05/27/18 Chief Complaint: Shortness of breath/respiratory failure Subjective: No new changes tolerated HD today will dialyse again tomorrow cleared for discharge from nephrology point of view once have arrangement for outpatient dialysis Physical Examination - Vital Signs Temperature: 99.2 F Blood Pressure: 179/79 Pulse: 78 Respirations: 16 Pulse Ox (%): 95 - Physical Exam General: Oriented x3 HEENT: Atraumatic Neck: Supple, Without JVD or thyroid abnormality Respiratory: Clear to auscultation bilaterally Cardiovascular: No edema, Regular rate/rhythm, Normal S1 S2 Gastrointestinal: Normal bowel sounds, Soft and benign, Non-distended Assessment And Plan - Current Problems (Diagnosis) (1) ESRD (end stage renal disease) Current Visit: Yes Status: Acute (2) ESRD (end stage renal disease) Current Visit: Yes Status: Acute (3) DM2 (diabetes mellitus, type 2) Onset Date: 05/26/18 Current Visit: Yes Status: Acute (4) HTN (hypertension) Onset Date: 05/26/18 Current Visit: Yes Status: Acute - Plan ESRD tolerated 1st HD HD tomorrow renal diet HTN cont currenbt mneds Anemia will start on epo MBD High Phos will start on Phoslo DM as per primary
[2018-05-28 05:17] LABS: Absolute Monocytes 0.6 K/uL (0.1-1.3); Absolute Neutrophil 4.6 K/uL (1.8-8.0); Basophils % 0.6 % (0-1.3); Eosinophils % 3.7 % (0-4.4); Hematocrit 27.9 % (36.0-45.0); Lymphocytes % 26.5 % (15.3-44.8); MCH 27.7 pg (27.0-35.0); MCV 83.8 fL (80-100); MPV 9.9 fL (7.6-11.3); Monocytes % 8.2 % (3.3-12.3); RBC Red Blood Cell Count 3.33 M/uL (3.86-4.86)
[2018-05-28 05:41] LABS: Albumin 2.5 g/dL (3.4-5.0); Bilirubin Total 0.2 mg/dL (0.2-1.0); Phosphorus 4.4 mg/dL (2.5-4.9); Potassium 4.4 mmol/L (3.5-5.1); Protein, Total 6.2 g/dL (6.4-8.2)
[2018-05-28] MEDS: INSULIN -REGULAR HUMAN 50 UNIT/0.5 ML ML SQ SCH ×4 (07:30→23:02)
[2018-05-28] MEDS ORDERED: EPOETIN ALFA 10,000 UNIT/ML VIAL SQ SCH (10:00)
[2018-05-28] MEDS: EPOETIN ALFA 4000 UNIT/1 ML VIAL SQ SCH (10:27)
[2018-05-28] MEDS: LEVOTHYROXINE SOD 0.025 MG TAB PO SCH (11:00)
[2018-05-28] MEDS: CYCLOBENZAPRINE 10 MG TAB PO SCH (11:57)
[2018-05-28] MEDS: ASPIRIN EC 81 MG TAB PO SCH (11:57)
[2018-05-28] MEDS: AMLODIPINE 10 MG TAB PO SCH (11:58)
[2018-05-28] MEDS: ISOSORBIDE DINIT 20 MG TAB PO SCH ×2 (11:59→22:58)
[2018-05-28] MEDS: ACETAMINOPHEN 500 MG TAB PO PRN (11:59)
[2018-05-28] MEDS: CARVEDILOL 25 MG TAB PO SCH ×2 (11:59→22:49)
[2018-05-28] MEDS: CA ACETATE 667 MG CAP PO SCH ×3 (12:00→17:38)
[2018-05-28] MEDS: CLOPIDOGREL 75 MG TABLET PO SCH (12:00)
[2018-05-28] MEDS: ENOXAPARIN 30 MG/0.3 ML SQ SCH (12:01)
[2018-05-28] MEDS: FUROSEMIDE 40 MG/4 ML VIAL IV SCH ×2 (12:10→17:38)
[2018-05-28] MEDS: HYDRALAZINE HCL 25 MG TABLET PO SCH ×2 (13:39→22:59)
--- NOTE | 2018-05-28 16:26 | P.PN ---
Subjective Date of Service: 05/28/18 Chief Complaint: Shortness of breath/respiratory failure Subjective: No new changes, No C/O voiced, Improving Patient seen and examined at bedside. No family at bedside. Chart reviewed and case discussed with nursing staff. Review of Systems As noted Physical Examination - Vital Signs Temperature: 99.2 F Blood Pressure: 122/60 Pulse: 78 Respirations: 16 Pulse Ox (%): 95 - Physical Exam General: Alert, In no apparent distress HEENT: Atraumatic, PERRLA, EOMI Neck: Supple, JVD not distended Respiratory: Clear to auscultation bilaterally, Normal air movement Cardiovascular: Regular rate/rhythm, Normal S1 S2 Gastrointestinal: Normal bowel sounds, No tenderness Musculoskeletal: No tenderness Integumentary: No rashes Neurological: Normal speech, Normal tone, Normal affect Lymphatics: No axilla or inguinal lymphadenopathy Assessment And Plan - Plan - Problems (Diagnosis) (1) Congestive heart failure Current Visit: Yes Status: Acute (2) Chronic kidney failure Current Visit: Yes Status: Acute (3) Hypoalbuminemia Current Visit: Yes Status: Acute (4) CVA (cerebral vascular accident) Current Visit: Yes Status: Acute (5) HTN (hypertension) Current Visit: Yes Status: Acute (6) DM2 (diabetes mellitus, type 2) Current Visit: Yes Status: Acute - Plan 1. Echocardiogram normal with ejection fraction of 52 % 2. No ESTEFANY inhibitor or an ARB secondary to renal function 3. Low dose Beta vern 4. Nephrology consultation, recommendations appreciated. Tolerated 1st session of hemodialysis. 5. Monitor renal function 6. Strict I's and O's 7. General surgery consulted for dialysis catheter placement. Recommendations appreciated 8. Daily weights 9. Education regarding diet and treatment of congestive heart failure 10. Accu-Cheks and sliding scale insulin. Will adjust as needed Disposition: Pending outpatient dialysis setup Physician Review: Patient Assessed, Agree with Above Assessment and Plan Time Spent Managing PTS Care (In Minutes): 35
[2018-05-28] MEDS: GABAPENTIN 100 MG CAP PO SCH (21:00)
--- NOTE | 2018-05-28 22:24 | P.PN ---
Subjective Date of Service: 05/28/18 Chief Complaint: Shortness of breath/respiratory failure tolerated HD today BP high , will add hydralazine cleared for discharge from nephrology point of view once have arrangement for outpatient dialysis Physical Examination - Vital Signs Temperature: 99.2 F Blood Pressure: 122/60 Pulse: 78 Respirations: 16 Pulse Ox (%): 95 - Physical Exam General: In no apparent distress, Oriented x3 Neck: Supple Respiratory: Clear to auscultation bilaterally Cardiovascular: No edema, Regular rate/rhythm, Normal S1 S2, No rubs, No murmurs Gastrointestinal: Normal bowel sounds Assessment And Plan - Current Problems (Diagnosis) (1) ESRD (end stage renal disease) Current Visit: Yes Status: Acute (2) ESRD (end stage renal disease) Current Visit: Yes Status: Acute (3) DM2 (diabetes mellitus, type 2) Onset Date: 05/26/18 Current Visit: Yes Status: Acute (4) HTN (hypertension) Onset Date: 05/26/18 Current Visit: Yes Status: Acute - Plan ESRD tolerated 1st HD HD tomorrow renal diet HTN will add hydralazine Anemia will start on epo MBD High Phos will start on Phoslo DM as per primary Physician Review: Patient Assessed, Agree with Above Assessment and Plan
[2018-05-28] MEDS: CALCITROL 0.25 MCG CAP PO SCH (22:49)
[2018-05-28] MEDS: INSULIN GLARGINE 100 UNITS/ML SQ SCH (22:59)
[2018-05-28] MEDS: ATORVASTATIN 40 MG TAB PO SCH (23:04)
[2018-05-29] MEDS ORDERED: ISOSORBIDE DINIT 5 MG TAB PO ONE (00:23)
[2018-05-29] MEDS: HYDROCODONE/APAP 5/325 MG TAB PO PRN (03:02)
[2018-05-29 06:02] LABS: Albumin 2.6 g/dL (3.4-5.0); Phosphorus 4.4 mg/dL (2.5-4.9); Potassium 3.9 mmol/L (3.5-5.1)
[2018-05-29] MEDS: LEVOTHYROXINE SOD 0.025 MG TAB PO SCH (06:29)
[2018-05-29] MEDS: INSULIN -REGULAR HUMAN 50 UNIT/0.5 ML ML SQ SCH ×5 (07:30→20:46)
[2018-05-29] MEDS ORDERED: POTASSIUM 25 MEQ EFFERV TAB PO ONE (09:00)
[2018-05-29] MEDS: CLOPIDOGREL 75 MG TABLET PO SCH (09:15)
[2018-05-29] MEDS: FUROSEMIDE 40 MG/4 ML VIAL IV SCH ×2 (09:15→16:55)
[2018-05-29] MEDS: AMLODIPINE 10 MG TAB PO SCH (09:16)
[2018-05-29] MEDS: ASPIRIN EC 81 MG TAB PO SCH (09:16)
[2018-05-29] MEDS: CYCLOBENZAPRINE 10 MG TAB PO SCH (09:16)
[2018-05-29] MEDS: ISOSORBIDE DINIT 20 MG TAB PO SCH ×2 (09:17→20:32)
[2018-05-29] MEDS: CARVEDILOL 25 MG TAB PO SCH ×2 (09:17→20:33)
[2018-05-29] MEDS: HYDRALAZINE HCL 25 MG TABLET PO SCH ×3 (09:17→20:34)
[2018-05-29] MEDS: ENOXAPARIN 30 MG/0.3 ML SQ SCH (09:19)
[2018-05-29] MEDS: CA ACETATE 667 MG CAP PO SCH ×3 (09:26→17:04)
[2018-05-29] MEDS: EPOETIN ALFA 4000 UNIT/1 ML VIAL SQ SCH (16:19)
--- NOTE | 2018-05-29 17:24 | P.PN ---
Subjective Date of Service: 05/29/18 Chief Complaint: Shortness of breath/respiratory failure Subjective: No new changes, No C/O voiced, Improving Patient seen and examined at bedside. No family at bedside. Chart reviewed and case discussed with nursing staff. Review of Systems As noted Physical Examination - Vital Signs Temperature: 97.9 F Blood Pressure: 123/63 Pulse: 76 Respirations: 20 Pulse Ox (%): 99 - Physical Exam General: Alert, In no apparent distress, Oriented x3 HEENT: Atraumatic, PERRLA, EOMI Neck: Supple, JVD not distended Respiratory: Clear to auscultation bilaterally, Normal air movement Cardiovascular: Regular rate/rhythm, Normal S1 S2 Gastrointestinal: Normal bowel sounds, No tenderness Musculoskeletal: No tenderness Integumentary: No rashes Neurological: Normal speech, Normal tone, Normal affect Lymphatics: No axilla or inguinal lymphadenopathy Assessment And Plan - Plan - Problems (Diagnosis) (1) Congestive heart failure Current Visit: Yes Status: Acute (2) Chronic kidney failure Current Visit: Yes Status: Acute (3) Hypoalbuminemia Current Visit: Yes Status: Acute (4) CVA (cerebral vascular accident) Current Visit: Yes Status: Acute (5) HTN (hypertension) Current Visit: Yes Status: Acute (6) DM2 (diabetes mellitus, type 2) Current Visit: Yes Status: Acute - Plan 1. Echocardiogram normal with ejection fraction of 52 % 2. No ESTEFANY inhibitor or an ARB secondary to renal function 3. Low dose Beta vern 4. Nephrology consultation, recommendations appreciated. Tolerated 2 sessions of hemodialysis. She is pending a 3rd, this will be on Thursday. 1st session of hemodialysis. 5. Monitor renal function 6. Strict I's and O's 7. General surgery consulted for dialysis catheter placement. Recommendations appreciated. She is status post dialysis catheter placement. 8. Daily weights 9. Education regarding diet and treatment of congestive heart failure 10. Accu-Cheks and sliding scale insulin. Will adjust as needed Disposition: Pending outpatient dialysis setup, and a 3rd dialysis session and patient to make sure she tolerates. She will likely be discharged after 3rd dialysis session on Thursday. Physician Review: Patient Assessed, Agree with Above Assessment and Plan
[2018-05-29] MEDS: ATORVASTATIN 40 MG TAB PO SCH (20:34)
[2018-05-29] MEDS: GABAPENTIN 100 MG CAP PO SCH (20:34)
[2018-05-29] MEDS: INSULIN GLARGINE 100 UNITS/ML SQ SCH (20:39)
[2018-05-29] MEDS: ACETAMINOPHEN 500 MG TAB PO PRN (20:42)
[2018-05-29 21:31] LABS: Hepatitis C Virus RNA (PCR)log <1.18 log IU/mL
--- NOTE | 2018-05-30 03:46 | PN ---
Date of Progress Note: 05/29/2018 Chief Complaint: Fluid overload, hypertension. The patient was started on hydralazine for severely elevated blood pressure. Blood pressure is stabi lizing and the patient denies PND, orthopnea. Review of Systems: Denies fever, chills. Physical Examination: Lungs: Clear to auscultation bilaterally. Heart: S1, S2. Abdomen: Soft, benign. Extremities: Edema present in both the legs. Assessment: 1.End-stage renal disease. Dialysis will be done today. Monitor electrolytes closely, adjust dialy sis parameters. 2.Hypertension, controlled. No medication. 3.End-stage renal disease. Continue dialysis today. Dialysis will be done with ultrafiltration. M onitor blood pressure closely during dialysis. Adjust intradialytic hypotension. EB/MODL Voice ID: [id number] Report ID: [id number]
[2018-05-30] MEDS: LEVOTHYROXINE SOD 0.025 MG TAB PO SCH (05:53)
[2018-05-30 05:55] LABS: Albumin 2.5 g/dL (3.4-5.0); Phosphorus 3.4 mg/dL (2.5-4.9); Potassium 3.8 mmol/L (3.5-5.1)
[2018-05-30] MEDS: INSULIN -REGULAR HUMAN 50 UNIT/0.5 ML ML SQ SCH ×4 (07:30→21:00)
[2018-05-30] MEDS: CARVEDILOL 25 MG TAB PO SCH ×2 (08:19→21:18)
[2018-05-30] MEDS: ISOSORBIDE DINIT 20 MG TAB PO SCH ×2 (08:19→21:17)
[2018-05-30] MEDS: AMLODIPINE 10 MG TAB PO SCH (08:20)
[2018-05-30] MEDS: CYCLOBENZAPRINE 10 MG TAB PO SCH (08:20)
[2018-05-30] MEDS: CA ACETATE 667 MG CAP PO SCH ×3 (08:20→16:10)
[2018-05-30] MEDS: HYDROCODONE/APAP 5/325 MG TAB PO PRN (08:20)
[2018-05-30] MEDS: FUROSEMIDE 40 MG/4 ML VIAL IV SCH ×2 (08:20→16:10)
[2018-05-30] MEDS: ASPIRIN EC 81 MG TAB PO SCH (08:20)
[2018-05-30] MEDS: HYDRALAZINE HCL 25 MG TABLET PO SCH ×3 (08:21→21:18)
[2018-05-30] MEDS: CLOPIDOGREL 75 MG TABLET PO SCH (08:21)
[2018-05-30] MEDS: ENOXAPARIN 30 MG/0.3 ML SQ SCH (08:21)
--- NOTE | 2018-05-30 12:21 | P.PN ---
Subjective Date of Service: 05/30/18 Chief Complaint: Shortness of breath/respiratory failure Subjective: No new changes, No C/O voiced, Improving Patient seen and examined at bedside. No family at bedside. Chart reviewed and case discussed with nursing staff. Review of Systems As noted Physical Examination - Vital Signs Temperature: 98.4 F Blood Pressure: 139/62 Pulse: 81 Respirations: 18 Pulse Ox (%): 98 - Physical Exam General: Alert, In no apparent distress, Oriented x3 HEENT: Atraumatic, PERRLA, EOMI Neck: Supple, JVD not distended Respiratory: Clear to auscultation bilaterally, Normal air movement Cardiovascular: Regular rate/rhythm, Normal S1 S2 Gastrointestinal: Normal bowel sounds, No tenderness Musculoskeletal: No tenderness Integumentary: No rashes Neurological: Normal speech, Normal tone, Normal affect Lymphatics: No axilla or inguinal lymphadenopathy Assessment And Plan - Plan - Problems (Diagnosis) (1) Congestive heart failure Current Visit: Yes Status: Acute (2) Chronic kidney failure Current Visit: Yes Status: Acute (3) Hypoalbuminemia Current Visit: Yes Status: Acute (4) CVA (cerebral vascular accident) Current Visit: Yes Status: Acute (5) HTN (hypertension) Current Visit: Yes Status: Acute (6) DM2 (diabetes mellitus, type 2) Current Visit: Yes Status: Acute - Plan 1. Echocardiogram normal with ejection fraction of 52 % 2. No ESTEFANY inhibitor or an ARB secondary to renal function 3. Low dose Beta vern 4. Nephrology consultation, recommendations appreciated. Tolerated 2 sessions of hemodialysis. She is pending a 3rd, this will be on Thursday. 1st session of hemodialysis. 5. Monitor renal function 6. Strict I's and O's 7. General surgery consulted for dialysis catheter placement. Recommendations appreciated. She is status post dialysis catheter placement. 8. Daily weights 9. Education regarding diet and treatment of congestive heart failure 10. Accu-Cheks and sliding scale insulin. Will adjust as needed Disposition: Pending outpatient dialysis setup, and a 3rd dialysis session and patient to make sure she tolerates. She will likely be discharged after 3rd dialysis session on Thursday. Physician Review: Patient Assessed, Agree with Above Assessment and Plan
[2018-05-30] MEDS: GABAPENTIN 100 MG CAP PO SCH (21:00)
[2018-05-30] MEDS: INSULIN GLARGINE 100 UNITS/ML SQ SCH (21:16)
[2018-05-30] MEDS: CALCITROL 0.25 MCG CAP PO SCH (21:17)
[2018-05-30] MEDS: ATORVASTATIN 40 MG TAB PO SCH (21:18)
--- NOTE | 2018-05-30 23:10 | PN ---
Date of Progress Note: 05/30/2018 Chief Complaint: End-stage renal disease. The patient received dialysis yesterday. Procedure was w ell tolerated. Shortness of breath is gradually improving. Review of Systems: Denies fever, chills. Denies PND, orthopnea. Physical Examination: Lungs: Clear to auscultation bilaterally. Heart: S1, S2. No pericardial friction rub. Abdomen: Soft, benign. Extremities: Edema present in both legs. Assessment And Plan: 1.Fluid overload, mild. Dialysis was done with ultrafiltration. Continue p.o. fluid restriction an d low-sodium diet. 2.End-stage renal disease. Dialysis will be done tomorrow. Monitor electrolytes. Adjust dialysis parameters accordingly. 3.The patient will need to continue dialysis 3 times per week. 4.Hypertension, controlled. Continue medication. 5.Renal osteodystrophy. Monitor phosphorus level. Adjust binders as needed. EB/MODL Voice ID: [id number] Report ID: [id number]
[2018-05-31] MEDS: ACETAMINOPHEN 500 MG TAB PO PRN ×2 (00:55→12:21)
[2018-05-31 04:30] LABS: Albumin 2.7 g/dL (3.4-5.0); Magnesium 2.3 mg/dL (1.8-2.4); Phosphorus 3.5 mg/dL (2.5-4.9); Potassium 3.9 mmol/L (3.5-5.1)
[2018-05-31] MEDS: LEVOTHYROXINE SOD 0.025 MG TAB PO SCH (05:46)
[2018-05-31] MEDS: INSULIN -REGULAR HUMAN 50 UNIT/0.5 ML ML SQ SCH ×4 (07:30→21:00)
[2018-05-31] MEDS: CA ACETATE 667 MG CAP PO SCH ×3 (08:00→16:42)
[2018-05-31] MEDS: HYDRALAZINE HCL 25 MG TABLET PO SCH ×3 (09:00→21:20)
[2018-05-31] MEDS: FUROSEMIDE 40 MG/4 ML VIAL IV SCH ×3 (09:00→16:35)
[2018-05-31] MEDS: EPOETIN ALFA 4000 UNIT/1 ML VIAL SQ SCH (09:44)
[2018-05-31] MEDS: CYCLOBENZAPRINE 10 MG TAB PO SCH (12:19)
[2018-05-31] MEDS: CLOPIDOGREL 75 MG TABLET PO SCH (12:19)
[2018-05-31] MEDS: ASPIRIN EC 81 MG TAB PO SCH (12:19)
[2018-05-31] MEDS: CARVEDILOL 25 MG TAB PO SCH ×2 (12:21→21:21)
[2018-05-31] MEDS: ISOSORBIDE DINIT 20 MG TAB PO SCH ×2 (12:21→21:20)
[2018-05-31] MEDS: AMLODIPINE 10 MG TAB PO SCH (12:22)
[2018-05-31] MEDS: ENOXAPARIN 30 MG/0.3 ML SQ SCH (12:23)
[2018-05-31 12:51] LABS: HIV 1/2 Antibody Diff Not indicated.; HIV AG/AB 4TH GEN Non-reactive (Non-reactive)
--- NOTE | 2018-05-31 16:56 | P.PN ---
Subjective Date of Service: 05/31/18 Chief Complaint: Shortness of breath/respiratory failure Patient seen and examined at bedside. Son at bedside. Chart reviewed and case discussed with nursing staff. Complaining of decreased vision and blurry vision along with floaters in the left eye. Patient with a history of stroke about a year ago, with slight residual left-sided weakness. No other concerns or complaints Review of Systems As noted Physical Examination - Vital Signs Temperature: 98.5 F Blood Pressure: 130/50 Pulse: 83 Respirations: 18 Pulse Ox (%): 98 - Physical Exam General: Alert, In no apparent distress, Oriented x3 HEENT: Atraumatic, Mucous membr. moist/pink, Other (No obvious gross abnormality noted in the eyes; decreased left pupillary reflex), EOMI, Sclerae nonicteric Neck: Supple, JVD not distended Respiratory: Clear to auscultation bilaterally, Normal air movement Cardiovascular: Regular rate/rhythm, Normal S1 S2 Gastrointestinal: Normal bowel sounds, No tenderness Musculoskeletal: No tenderness Integumentary: No rashes Neurological: Normal speech, Normal tone, Normal affect Lymphatics: No axilla or inguinal lymphadenopathy Assessment And Plan - Plan - Problems (Diagnosis) (1) Congestive heart failure, diastolic (2) Chronic kidney failure (3) Hypoalbuminemia (4) CVA (cerebral vascular accident) (5) HTN (hypertension) (6) DM2 (diabetes mellitus, type 2) (7) decreased left pupillary reflex (8) left-eye vision changes - Plan 1. Echocardiogram normal with ejection fraction of 52 % 2. No ESTEFANY inhibitor or an ARB secondary to renal function 3. Low dose Beta vern 4. Nephrology consultation, recommendations appreciated. Tolerated 3 sessions of hemodialysis. She is pending a 3rd, this will be on Thursday. 1st session of hemodialysis. 5. Monitor renal function 6. Strict I's and O's 7. General surgery consulted for dialysis catheter placement. Recommendations appreciated. She is status post dialysis catheter placement. 8. Daily weights 9. Education regarding diet and treatment of congestive heart failure 10. Accu-Cheks and sliding scale insulin. Will adjust as needed 11. Left eye vision changes, decreased left pre bili reflex in a patient with a history of stroke. As this is a new change, will go ahead and get imaging. Stroke protocol MRI ordered, pending. This could also be secondary to vitreous floaters, which is more likely. Disposition: Pending outpatient dialysis setup and chair time set up. Physician Review: Patient Assessed, Agree with Above Assessment and Plan Time Spent Managing PTS Care (In Minutes): 35
--- NOTE | 2018-05-31 18:36 | RAD REPORT ---
EXAM DESCRIPTION: MRI - Brain Wo Cont - 05/31/2018 6:21 pm CLINICAL HISTORY: Stroke-like symptoms, weakness COMPARISON: None. TECHNIQUE: Sagittal T1-weighted images were obtained along with axial PD, heavily T2-weighted and T2 -FLAIR images. Axial DWI and ADC mapping sequences were also obtained along with coronal heavily T2-w eighted images. FINDINGS: No intracranial hemorrhage, mass or acute infarction. There is no edema or shift of midlin e structures. No extra-axial fluid collections. Joya-matter/white matter junction is preserved. Signa l voids are seen as a normal finding in the major intracranial vessels. No measurable atrophy. Ventri cles are normal. Scattered chronic ischemic change seen in the cerebral white matter. No globe or orbital content abnormality. No sella or supra sella suspicious finding. Mastoid air cells and paranasal sinuses are clear. IMPRESSION: No acute infarction. No acute intracranial finding. Mild chronic ischemic change without atrophy.
--- NOTE | 2018-05-31 18:38 | RAD REPORT ---
EXAM DESCRIPTION: MRI - MRA Head Wo Cont - 05/31/2018 6:21 pm CLINICAL HISTORY: CVA, stroke-like symptoms, weakness COMPARISON: MR brain same date TECHNIQUE: Axial and coronal 3D phot-gl-vwpwpu image acquisition was performed. 3D rotational images were generated with source and reconstruction images reviewed. Horizontal and vertical axis rotation al views generated using MIP protocol. FINDINGS: Major venous sinuses are patent. Imaging spans the entire length of the each internal carotid artery. No significant internal carotid disease identifiable. No basilar artery abnormality seen. There is significant focal stenosis at the origin of the left posterior cerebral artery. There is significant atherosclerotic changes at the raffy gin of the left anterior cerebral and left middle cerebral arteries. Moderate atherosclerotic change seen in the M1 segment of the right middle cerebral artery. No aneurysm or vascular malformation. No significant atherosclerotic change in the peripheral anterio r middle and posterior cerebral artery distributions. Right posterior communicating artery is present . IMPRESSION: Significant atherosclerotic change and luminal narrowing at the left anterior cerebral a nd middle cerebral artery origins. More moderate disease is present at the proximal right middle cere bral artery. Significant stenosis at the proximal left posterior cerebral artery. No aneurysm or vascular malformation. No significant disease in the internal carotid arteries from origin to termination.
[2018-05-31] MEDS: GABAPENTIN 100 MG CAP PO SCH (21:00)
[2018-05-31] MEDS: INSULIN GLARGINE 100 UNITS/ML SQ SCH (21:20)
[2018-05-31] MEDS: ATORVASTATIN 40 MG TAB PO SCH (21:23)
[2018-06-01 00:07] LABS: Albumin, (SPE) 3.1 g/dL (3.8-4.8); Alpha-1-Globulins 0.3 g/dL (0.2-0.3); Alpha-2-Globulins 0.8 g/dL (0.5-0.9); Gamma Globulins 1.4 g/dL (0.8-1.7); INTERPRETATION REPORT
--- NOTE | 2018-06-01 02:44 | PN ---
Date of Progress Note: 05/31/2018 Chief Complaint: End-stage renal disease, new onset. Subjective: The patient is undergoing dialysis. The patient has fluid overload and received dialysi s today with ultrafiltration. Review of Systems: Denies PND or orthopnea. Physical Examination: Lungs: Clear to auscultation bilaterally. Heart: S1, S2. Abdomen: Soft, benign. Extremities: Edema present in both legs. Impression And Plan: 1.Fluid overload. Continue low-sodium diet and p.o. fluid restriction. 2.End-stage renal disease. Next dialysis on Thursday. 3.Hypertension. Blood pressure controlled. Continue blood pressure medication, low-sodium diet. 4.Renal osteodystrophy. Monitor her phosphorus level. Adjust binders. EB/MODL Voice ID: [id number] Report ID: [id number]
[2018-06-01 03:43] LABS: HBsAG Nonreactive (Nonreactive)
[2018-06-01 05:31] VITALS: BMI 24.5
[2018-06-01] MEDS: LEVOTHYROXINE SOD 0.025 MG TAB PO SCH (05:38)
[2018-06-01] MEDS: INSULIN -REGULAR HUMAN 50 UNIT/0.5 ML ML SQ SCH ×4 (07:30→20:32)
[2018-06-01] MEDS: HYDROCODONE/APAP 5/325 MG TAB PO PRN (10:23)
[2018-06-01] MEDS: CLOPIDOGREL 75 MG TABLET PO SCH (10:23)
[2018-06-01] MEDS: ISOSORBIDE DINIT 20 MG TAB PO SCH ×2 (10:23→21:00)
[2018-06-01] MEDS: ASPIRIN EC 81 MG TAB PO SCH (10:23)
[2018-06-01] MEDS: CYCLOBENZAPRINE 10 MG TAB PO SCH (10:24)
[2018-06-01] MEDS: CA ACETATE 667 MG CAP PO SCH ×3 (10:24→17:16)
[2018-06-01] MEDS: AMLODIPINE 10 MG TAB PO SCH (10:25)
[2018-06-01] MEDS: CARVEDILOL 25 MG TAB PO SCH ×2 (10:25→21:00)
[2018-06-01] MEDS: HYDRALAZINE HCL 25 MG TABLET PO SCH ×2 (10:25→13:58)
[2018-06-01] MEDS: ENOXAPARIN 30 MG/0.3 ML SQ SCH (10:26)
[2018-06-01] MEDS: FUROSEMIDE 40 MG/4 ML VIAL IV SCH ×2 (10:26→17:00)
[2018-06-01] MEDS ORDERED: NA CHLORIDE 0.9% 250 ML ONE (14:54)
--- NOTE | 2018-06-01 17:14 | PN ---
Date of Progress Note: 06/01/2018 Subjective: Patient was seen and examined. Chart reviewed and case discussed with RN. The patient is Slovak-speaking only. [employer] vehicle operator was used to communicate with the patient. The pat jaren overall is doing well. She does not have any complaints, went for dialysis yesterday. Patient well doing well. Review of Systems: Negative except as above. Medications: List reviewed. Physical Examination: Vital Signs: Temperature 98, heart rate 87, blood pressure 102/59, respirations 18, O2 100% on room air. General: Awake, alert, oriented x3, not in any acute distress. CV: S1, S2. Regular rate and rhythm. Peripheral pulses present. No murmurs. Respiratory: Moving air well bilaterally. No wheezing or stridor. No use of accessory muscles pres ent. Abdomen: Abdomen is soft, nontender, nondistended. Positive bowel sounds. No guarding or rigidity. Extremities: No clubbing, cyanosis, or edema. Neuro: Nonfocal. Cranial nerves 2 through 12 intact grossly. No focal neurological deficit. Skin: No rashes. No evidence of skin turgor. Laboratory Data: Blood sugar level was 198. Hepatitis panel nonreactive. HIV nonreactive. Rheumat oid factor negative. Complement levels within normal limits. Assessment: A 58-year-old female with: 1.Acute congestive heart failure, diastolic dysfunction, ejection fraction of 52%. Continue with lo w-dose beta vern and diuretics. No ESTEFANY inhibitor due to renal function improved now doing well of f oxygen. 2.Chronic kidney failure, started on dialysis. Awaiting chair time to be set up as an outpatient, diann cornelius 5. 3.Hypoalbuminemia. 4.Hyperkalemia. 5.History of cerebrovascular accident. MRI done, which did not show any acute changes. MRA did not show any aneurysm or vascular malformation. Does show significant atherosclerotic change and lumina l narrowing at the left anterior cerebral and middle cerebral artery origins. More moderate disease is present at the proximal right MCA. Significant stenosis at the proximal left KNITTER HAND. MRI was done d ue to patient's symptoms regarding her changes in vision. 6.Essential hypertension, stable. Continue home medications. 7.Diabetes mellitus type 2, insulin requiring with hyperglycemia. 8.Left eye vision changes. MRI is negative. Plan: We will await dialysis set up as an outpatient. Discharge once set up. SA/MODL Voice ID: [id number] Report ID: [id number]
[2018-06-01 20:09] LABS: P-ANCA Anti-Myeloperoxidase Ab <1.0 AI (<1.0)
[2018-06-01] MEDS: INSULIN GLARGINE 100 UNITS/ML SQ SCH (20:28)
[2018-06-01] MEDS: ATORVASTATIN 40 MG TAB PO SCH (20:28)
[2018-06-01] MEDS: GABAPENTIN 100 MG CAP PO SCH (20:29)
[2018-06-01] MEDS: CALCITROL 0.25 MCG CAP PO SCH (20:37)
[2018-06-02] MEDS: LEVOTHYROXINE SOD 0.025 MG TAB PO SCH (05:51)
[2018-06-02] MEDS: INSULIN -REGULAR HUMAN 50 UNIT/0.5 ML ML SQ SCH ×2 (07:30→12:29)
[2018-06-02] MEDS: ASPIRIN EC 81 MG TAB PO SCH (09:00)
[2018-06-02] MEDS ORDERED: FUROSEMIDE 40 MG TABLET PO SCH (09:00)
[2018-06-02] MEDS: CA ACETATE 667 MG CAP PO SCH ×2 (09:23→12:29)
[2018-06-02] MEDS: CYCLOBENZAPRINE 10 MG TAB PO SCH (09:24)
[2018-06-02] MEDS: ISOSORBIDE DINIT 20 MG TAB PO SCH (09:25)
[2018-06-02] MEDS: CLOPIDOGREL 75 MG TABLET PO SCH (09:26)
[2018-06-02] MEDS: CARVEDILOL 25 MG TAB PO SCH (09:26)
[2018-06-02] MEDS: ENOXAPARIN 30 MG/0.3 ML SQ SCH (09:27)
[2018-06-02 09:37] VITALS: O2SAT 94
[2018-06-02 11:55] VITALS: BP 114/54; TEMP 98.6
--- NOTE | 2018-06-02 16:10 | PN ---
Date of Progress Note: 06/02/2018 NEPHROLOGY FOLLOWUP Subjective: The patient doing better. No nausea. No vomiting. Tolerating dialysis very well. Objective: Vital signs: Blood pressure 140/70, pulse of 84. Chest: Clear to auscultation. Heart: S1, S2, regular. Abdomen: Soft, nontender. Extremities: Right below-knee amputation. Laboratory Data: WBC 7.5, H and H 9.2/27.9, sodium 134, potassium 3.9, bicarb 28, BUN is 27, creatin ine 3.9. Current Medications: The patient on include: 1.Aspirin. 2.Clonazepam. 3.Plavix. 4.Lovenox. 5.Epogen. 6.Isosorbide. 7.Carvedilol. 8.Atorvastatin. 9.Gabapentin. 10.PhosLo 1 tablet with each meal. 11.Lasix 40 b.i.d. 12.Levothyroxine. 13.Insulin. Assessment And Plan: 1.End-stage renal disease. We will maintain the patient on dialysis. 2.Hypertension, controlled, optimal. Continue current medication. Yesterday, had incident of low b lood pressure. Currently, recovered. I am still holding the Norvasc and the hydralazine. 3.Coronary artery disease. Follow up with the primary. 4.Diabetes, as by primary. 5.Anemia of chronic kidney disease. Continue Epogen. 6.Secondary hyperparathyroidism. We will continue on the binder. 7.Hypothyroidism. TSH within normal limit. I am going to go ahead and discontinue levothyroxine. 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 Workup include SPEP and the serology was negative. I can go ahead and discontinue isosorbide, and start the patient on ESTEFANY inhibitor. MA/MODL Voice ID: [id number] Report ID: [id number]
[2018-06-02] MEDS ORDERED: CARVEDILOL 12.5 MG TAB PO SCH (21:00)
--- NOTE | 2018-06-03 06:17 | DS ---
Date of Discharge: 06/02/2018 Consultants: Dr. Bay, Dr. Low, and Dr. Ravi with Nephrology, and Dr. Gore with Surgery. Procedures: On 05/27/2018, dialysis catheter placement by Dr. Gore, right IJ Tesio. Admitting Diagnoses: 1.Acute congestive heart failure. 2.Chronic kidney failure. 3.Hypoalbuminemia. 4.History of cerebrovascular accident. 5.Essential hypertension. 6.Diabetes mellitus type 2, insulin requiring with hyperglycemia and chronic kidney disease. Discharge Diagnoses: 1.Acute diastolic heart failure exacerbation, EF 52%, improved. 2.Chronic kidney failure stage 5, now started on dialysis. 3.Hypoalbuminemia. 4.Hyperkalemia, corrected. 5.History of cerebrovascular accident. MRI did not show any acute cerebrovascular accident. 6.Essential hypertension. 7.Diabetes mellitus type 2, insulin requiring with hyperglycemia. 8.Left eye vision changes, resolved. Hospital Course: The patient is a 58-year-old female with past medical history of hypertension, diab etes, thyroid, history of stroke with left vision being affected, comes in with shortness of breath a nd respiratory failure, uncontrolled blood pressure in the 200s. The patient was started on IV diure tics. Initially needed BiPAP, was then weaned off. The patient was thought to have acute diastolic heart failure. Workup was initiated. Echocardiogram showed EF of 52%. The patient was also seen by Nephrology for her acute on chronic kidney failure. The patient required dialysis. She had a Tesio catheter placed by Dr. Gore. Dr. Bay and her group was consulted from Nephrology. The patient wa s initiated on dialysis. Chair time was set up with [place]. The patient's son brought up some bob rns regarding transport; however, the patient does have Medicaid and psych social worker aided the patient in finding transport that is covered through Medicaid. The patient did report some changes in her vi moreno in her left eye, which was evaluated with MRI of the brain. The patient does have history of pr evious stroke with changes on her left eye. There was no acute infarction that was seen. The patien t did have some chronic ischemic changes. Brain MRI with MRA showed significant stenosis at the prox imal left DAIRY NUTRITIONIST. There was no aneurysm. She did not have any significant disease in the internal meng tid arteries. She did have some luminal narrowing at the left TESSY and MCA origins. She did have mod erate disease at the proximal right MCA as well. The patient was counseled regarding her ischemic di sease. She is at risk for stroke. She will need outpatient Neurology followup. The patient was the n cleared for discharge and was sent home in a stable condition. Activity: As tolerated. Medications: As per medication reconciliation list. Followup: Follow up with primary care physician in 2-3 days. Follow up with producer, Dr. Bay in 2 weeks. Return to ER for worsening condition. Physical Examination: General: Awake, alert, oriented x3. No acute distress. CV: S1, S2. No murmurs. Respiratory: Moving air well bilaterally. No wheezing. Gastrointestinal: Abdomen is soft, nontender, nondistended. Positive bowel sounds. Extremities: No clubbing, cyanosis, or edema. Neurologic: Nonfocal. Total time spent discharging the patient was 39 minutes. SA/MODL Voice ID: [id number] Report ID: [id number]
[2018-06-03] MEDS ORDERED: LISINOPRIL 10 MG TAB PO SCH (09:00)
== END 2018-06-02 13:06 | disposition home or self-care (01) | DRG 291 ==
LOC: ER 11:38 → ERHOLD 14:10 → 4TH 18:07
PROVIDERS: ADMIT Family Medicine; ATTEND Family Medicine
PROC: 5A09357 Assistance with Respiratory Ventilation, Less than 24 Consecutive Hours, Continuous Positive Airway Pressure (ICD-10-PCS; 2018-05-25)
PROC: 02HV33Z Insertion of Infusion Device into Superior Vena Cava, Percutaneous Approach (ICD-10-PCS; 2018-05-27)
PROC: B518YZA Fluoroscopy of Superior Vena Cava using Other Contrast, Guidance (ICD-10-PCS; 2018-05-27)
PROC: 5A1D70Z Performance of Urinary Filtration, Intermittent, Less than 6 Hours Per Day (ICD-10-PCS; 2018-05-27)
PROC: 0JH63XZ Insertion of Tunneled Vascular Access Device into Chest Subcutaneous Tissue and Fascia, Percutaneous Approach (ICD-10-PCS; principal; 2018-05-27 09:00)
PROC: 5A1D70Z Performance of Urinary Filtration, Intermittent, Less than 6 Hours Per Day (ICD-10-PCS; 2018-05-28)
PROC: 5A1D70Z Performance of Urinary Filtration, Intermittent, Less than 6 Hours Per Day (ICD-10-PCS; 2018-05-29)
PROC: 5A1D70Z Performance of Urinary Filtration, Intermittent, Less than 6 Hours Per Day (ICD-10-PCS; 2018-05-31)
DX: I13.2 Hypertensive heart and chronic kidney disease with heart failure and with stage 5 chronic kidney disease, or end stage renal disease (principal); I50.31 Acute diastolic (congestive) heart failure; J96.90 Respiratory failure, unspecified, unspecified whether with hypoxia or hypercapnia; N18.5 Chronic kidney disease, stage 5; N17.9 Acute kidney failure, unspecified; N25.81 Secondary hyperparathyroidism of renal origin; E11.22 Type 2 diabetes mellitus with diabetic chronic kidney disease; E11.65 Type 2 diabetes mellitus with hyperglycemia; Z99.2 Dependence on renal dialysis; Z79.4 Long term (current) use of insulin; E88.09 Other disorders of plasma-protein metabolism, not elsewhere classified; E87.5 Hyperkalemia; Z86.73 Personal history of transient ischemic attack (TIA), and cerebral infarction without residual deficits; E11.40 Type 2 diabetes mellitus with diabetic neuropathy, unspecified; E11.21 Type 2 diabetes mellitus with diabetic nephropathy; E11.319 Type 2 diabetes mellitus with unspecified diabetic retinopathy without macular edema; Z89.511 Acquired absence of right leg below knee; D63.1 Anemia in chronic kidney disease; N25.0 Renal osteodystrophy; H53.9 Unspecified visual disturbance
CPT/HCPCS: 36415; 51702; 70544; 70551; 71045; 76000; 76770; 80048; 80053; 80069; 80076; 81001; 82550; 82570; 82607; 82728; 82805; 82962; 83520; 83540; 83735; 83880; 83970; 84100; 84156; 84165; 84443; 84466; 84484; 84550; 85025; 85044; 85610; 86021; 86038; 86160; 86225; 86317; 86430; 86704; 86706; 86803; 87040; 87086; 87088; 87340; 87389; 87522; 90935; 93005; 93306; 94660; 94760; 96365; 96375; 99285; C1752; J0360; J0690; J0696; J1644; J1650; J1940; J2175; J2250; J2704; J3010; Q4081

== ENCOUNTER 2018-08-09 15:54 | Emergency (ER) | payer OTHER ==
--- OUTSIDE RECORDS SUMMARY | 2018-08-09 15:56 | XMS REPORT ---
:1960 Author Organization [facility] Address [address] [place] [address] Care Team Providers Name Role Phone Unavailable Unavailable Unavailable Payers Payer Name Policy Type Policy Number Effective Date Expiration Date Problems This patient has no known problems. Allergies, Adverse Reactions, Alerts Allergy Allergy Status Severity Reaction(s) Onset Inactive Treating Comments Name Type Date Date Clinician No Known DA Active U 2018-06 Allergies -07 00:00:0 0 Medications This patient has no known medications. Results Test Description Test Time Test Comments Text Results Atomic Results Result Comments SCR MAMM BILATERAL DAVIS 2018-04-27 15:42:55 - SCR MAMM BILATERAL DAVIS CAD CAD DIGITAL DIGITALBILATERAL DIGITAL SCREENING MAMMOGRAM 3D/2D WITH CAD: 04/21/2018CLINICAL: Asymptomatic. Digital breast tomosynthesis was performed in addition to routine CC and MLO views. Current mammographic images were evaluated by either a [employer] M-Vu or a [employer] ImageChecker CAD (computer aided detection system). No prior exams were available for comparison. There are scattered fibroglandular tissues in both breasts. Symmetric mild bilateral trabecula and skin thickening noted.No suspicious mass, architectural distortion, malignant type calcification, or lymph node abnormality detected. IMPRESSION: NEGATIVEThere is no mammographic evidence of malignancy. Resume annual screening mammography in one year. Marcia Norris M.D. el/:04/27/2018 15:42:55 Phlebotomist Medical Lab Assistant: Jackelin Rocha MM, [facility] Mobile Mammographyletter sent: BIRADS 1-2 Normal Mammogram BI-RADS: 1 Negative
--- NOTE | 2018-08-09 16:42 | RAD REPORT ---
EXAM DESCRIPTION: CT - Head Brain Wo Cont - 08/09/2018 4:35 pm CLINICAL HISTORY: HEADACHE Hypertension, headache COMPARISON: Brain Wo Cont dated 05/31/2018; MRA Head Wo Cont dated 05/31/2018 TECHNIQUE: All CT scans are performed using dose optimization technique as appropriate and may inclu de automated exposure control or mA/KV adjustment according to patient size. FINDINGS: No intracranial hemorrhage, hydrocephalus or extra-axial fluid collection.No areas of brai n edema or evidence of midline shift. The paranasal sinuses and mastoids are clear. The calvarium is intact. Mild atherosclerosis of the ve rtebral arteries. IMPRESSION: No acute intracranial abnormality.
--- NOTE | 2018-08-09 16:53 | RAD REPORT ---
EXAM DESCRIPTION: RAD - Chest Single View - 08/09/2018 4:45 pm CLINICAL HISTORY: MALAISE Chest pain. COMPARISON: Chest Single View dated 05/27/2018; Chest Single View dated 05/25/2018 FINDINGS: Portable technique limits examination quality. The lungs are grossly clear. The heart is normal in size. No displaced fractures.Right-sided venous c atheter has its tip in the SVC - right atrial junction region. IMPRESSION: No acute intrathoracic process suspected.
[2018-08-09] MEDS ORDERED: cloNIDine HCl 0.1 MG TAB ONE (17:27)
[2018-08-09 17:31] LABS: Absolute Lymphocytes (CBC) 2.7 K/uL (0.7-4.9); Absolute Monocytes 0.6 K/uL (0.1-1.3); Absolute Neutrophil 5.5 K/uL (1.8-8.0); Basophils % 1.1 % (0-1.3); Eosinophils % 3.8 % (0-4.4); Hematocrit 42.4 % (36.0-45.0); Lymphocytes % 29.1 % (15.3-44.8); MPV 10.5 fL (7.6-11.3); Monocytes % 6.4 % (3.3-12.3); RBC Red Blood Cell Count 5.02 M/uL (3.86-4.86)
[2018-08-09 17:38] LABS: Protime INR 1.01
[2018-08-09 17:58] LABS: Albumin 3.2 g/dL (3.4-5.0); Bilirubin Direct 0.1 mg/dL (0-0.2); Bilirubin Total 0.3 mg/dL (0.2-1.0); Potassium 3.9 mmol/L (3.5-5.1); Protein, Total 7.9 g/dL (6.4-8.2); Troponin (Emerg Dept Use Only) 0.05 ng/mL (0.0-0.045)
[2018-08-09] MEDS ORDERED: HYDRALAZINE HCL 20 MG/ML VIAL ONE (19:59)
--- NOTE | 2018-08-09 20:29 | EDPHYS ---
Physician Documentation [facility] Name: Margarita Dominique Age: 58 yrs Sex: Female : 1960 Arrival Date: 08/09/2018 Time: 15:57 Bed 5 Private MD: ED Physician Delfin Zeng HPI: 08/09 23:19 This 58 yrs old Female presents to ER via EMS with complaints of Headache, ma2 High Blood Pressure. 23:19 The patient complains of pain to the forehead. Onset: The symptoms/episode ma2 began/occurred gradually, 1 day(s) ago. Associated signs and symptoms: Pertinent negatives: dizziness, malaise, neck stiffness, Photophobia vision changes, weakness. Severity of symptoms: At its worst the pain was moderate, in the emergency department the pain is unchanged. Headache History: The patient has had previous headaches. The patient has experienced similar episodes in the past. Historical: - Allergies: 16:02 No Known Allergies; tw2 - Home Meds: 16:02 amlodipine 10 mg tab 1 tab once daily [Active]; aspirin 81 mg Oral chew 1 tab once tw2 daily [Active]; atorvastatin 40 mg Oral tab 1 tab once daily [Active]; carvedilol 25 mg Oral tab 1 tab 2 times per day [Active]; clopidogrel 75 mg Oral tab 1 tab once daily [Active]; cyclobenzaprine 10 mg Oral tab 1 tab once per day [Active]; fluticasone 50 mcg/actuation nasal spsn 1 spray 2 times per day [Active]; furosemide 20 mg Oral tab 1 tab once daily [Active]; gabapentin 100 mg Oral cap 1 caps once nightly [Active]; hydralazine 25 mg Oral tab 1 tab 3 times per day [Active]; isosorbide dinitrate 30 mg Oral tab 1 tab once per day [Active]; Lantus 100 unit/mL Sub-Q soln 10 units nightly [Active]; losartan 100 mg Oral tab 1 tab once daily [Active]; Synthroid 25 mcg Oral tab 1 tab once daily [Active]; Novolin R 12 units with meal Sub-Q [Active]; vitamin D 2, 50,000 units once weekly [Active]; - PMHx: 16:02 Diabetes - NIDDM; HEART FAILURE; Hypertension; Hypothyroidism; vitamin d deficiency; tw2 - PSHx: 16:02 RIGHT BKA; tw2 - Immunization history:: Adult Immunizations. - Social history:: Smoking status: Patient/guardian denies using alcohol, street drugs, The patient lives with family. - Ebola Screening: : Patient denies travel to an Ebola-affected area in the 21 days before illness onset. - Family history:: not pertinent. ROS: 23:19 Constitutional: Negative for fever, chills, and weight loss, Cardiovascular: Negative ma2 for chest pain, palpitations, and edema, Respiratory: Negative for shortness of breath, cough, wheezing, and pleuritic chest pain, Abdomen/GI: Negative for abdominal pain, nausea, diarrhea, and constipation. 23:19 Neuro: Positive for headache, Negative for dizziness, numbness, seizure activity, weakness. 23:19 All other systems are negative. Exam: 23:19 Constitutional: This is a well developed, well nourished patient who is awake, alert, ma2 and in no acute distress. Chest/axilla: Normal chest wall appearance and motion. Nontender with no deformity. No lesions are appreciated. Cardiovascular: Regular rate and rhythm with a normal S1 and S2. No gallops, murmurs, or rubs. Normal PMI, no JVD. No pulse deficits. Respiratory: Lungs have equal breath sounds bilaterally, clear to auscultation and percussion. No rales, rhonchi or wheezes noted. No increased work of breathing, no retractions or nasal flaring. Abdomen/GI: Soft, non-tender, with normal bowel sounds. No distension or tympany. No guarding or rebound. No evidence of tenderness throughout. MS/ Extremity: Pulses equal, no cyanosis. Neurovascular intact. Full, normal range of motion. Neuro: Awake and alert, GCS 15, oriented to person, place, time, and situation. Cranial nerves II-XII grossly intact. Motor strength 5/5 in all extremities. Sensory grossly intact. Cerebellar exam normal. Normal gait. Vital Signs: 16:11 BP 217 / 79; Pulse 87; Resp 19; Temp 97.9(O); Pulse Ox 100% on R/A; Pain 10/10; tw2 17:14 BP 209 / 121; Pulse 85; Resp 17; Pulse Ox 95% on R/A; tw2 17:30 BP 217 / 85; Pulse 78; Resp 19; Pulse Ox 100% on R/A; tw2 18:23 BP 195 / 70; Pulse 70; Resp 17; Pulse Ox 97% on R/A; tw2 19:28 BP 202 / 81; Pulse 72; Resp 18; Pulse Ox 100% on R/A; Pain 10/10; ed1 20:04 BP 128 / 53; Pulse 76; Resp 22; Pulse Ox 98% on R/A; Pain 8/10; ed1 20:05 BP 128 / 53; ed1 20:41 BP 99 / 47; Pulse 77; Resp 17; Pulse Ox 99% on R/A; Pain 5/10; ed1 21:30 BP 107 / 74; Pulse 74; Resp 16; Pulse Ox 98% on R/A; Pain 5/10; ed1 22:17 BP 111 / 53; Pulse 70; Resp 19; Pulse Ox 99% on R/A; Pain 4/10; ed1 23:20 BP 112 / 46; Pulse 66; Resp 17; Pulse Ox 95% on R/A; Pain 2/10; ed1 16:11 "headache" tw2 [place] Coma Score: 23:19 Eye Response: spontaneous(4). Verbal Response: oriented(5). Motor Response: obeys ma2 commands(6). Total: 15. MDM: 16:16 Patient medically screened. gs 23:19 Differential diagnosis: hyponatremia, otitis, tension headache, uremia. Data reviewed: ma2 vital signs, nurses notes. Counseling: I had a detailed discussion with the patient and/or guardian regarding: the historical points, exam findings, and any diagnostic results supporting the discharge/admit diagnosis, the presence of at least one elevated blood pressure reading (>120/80) during this emergency department visit, the need for outpatient follow up. Response to treatment: the patient's symptoms have markedly improved after treatment. 08/09 16:20 Order name: Basic Metabolic Panel; Complete Time: 18:00 08/09 16:20 Order name: CBC with Diff; Complete Time: 18:00 08/09 16:20 Order name: LFT's; Complete Time: 18:00 08/09 16:20 Order name: Magnesium; Complete Time: 18:00 08/09 16:20 Order name: NT PRO-BNP; Complete Time: 18:00 08/09 16:20 Order name: PT-INR; Complete Time: 18:00 08/09 16:20 Order name: Troponin (emerg Dept Use Only); Complete Time: 18:00 08/09 16:20 Order name: XRAY Chest (1 view); Complete Time: 17:12 08/09 16:20 Order name: EKG; Complete Time: 16:22 gs 08/09 16:20 Order name: CT Head Brain wo Cont; Complete Time: 17:12 08/09 21:20 Order name: Troponin (emerg Dept Use Only); Complete Time: 22:53 08/09 16:20 Order name: Cardiac monitoring; Complete Time: 17:13 08/09 16:20 Order name: EKG - Nurse/Tech; Complete Time: 17:14 08/09 16:20 Order name: IV Saline Lock; Complete Time: 17:13 08/09 16:20 Order name: Labs collected and sent; Complete Time: 17:13 08/09 16:20 Order name: O2 Per Protocol; Complete Time: 17:13 08/09 16:20 Order name: O2 Sat Monitoring; Complete Time: 17:14 gs Administered Medications: 17:17 Drug: cloNIDine 0.2 mg Route: PO; tw2 18:23 Follow up: Response: No adverse reaction; Blood pressure is lowered tw2 19:58 Drug: hydrALAZINE 20 mg Route: IV; Rate: calculated rate; Site: left antecubital; ed1 20:05 Follow up: BP 128 / 53; Response: No adverse reaction; Blood pressure is lowered; IV ed1 Status: Completed infusion; IV Intake: 1ml 21:17 Drug: NS 0.9% 500 ml Volume: 500 ml; Route: IV; Rate: 1 bolus; Site: left antecubital; ed1 22:00 Follow up: IV Status: Completed infusion; IV Intake: 500ml ed1 Disposition: 08/09/18 23:21 Discharged to Home. Impression: Tension-type headache. - Condition is Stable. - Prescriptions for Reglan 10 mg Oral Tablet - take 1 tablet by ORAL route every 6 hours take 30 minutes before meals and at bedtime; 20 tablet. - Medication Reconciliation Form, Thank You Letter, Antibiotic Education, Prescription Opioid Use form. - Follow up: Private Physician; When: Tomorrow; Reason: Continuance of care. Signatures: Dispatcher [employer] EDMS Becka Del Cid RN RN ed1 Guadalupe Levy RN RN tw2 Sunil Conklin MD MD Delfin Zeng MD MD ma2 Corrections: (The following items were deleted from the chart) 20:50 20:28 08/09/2018 20:28 Discharged to Home. Impression: Essential (primary) gs hypertension. Condition is Stable. Forms are Medication Reconciliation Form, Thank You Letter, Antibiotic Education, Prescription Opioid Use. Follow up: Private Physician; When: 2 - 3 days; Reason: Re-evaluation by your physician. 08/10 00:13 08/09 23:21 08/09/2018 23:21 Discharged to Home. Impression: Tension-type headache. ed1 Condition is Stable. Forms are Medication Reconciliation Form, Thank You Letter, Antibiotic Education, Prescription Opioid Use. Follow up: Private Physician; When: Tomorrow; Reason: Continuance of care. ma2
--- NOTE | 2018-08-09 20:29 | ER ---
Nurse's Notes [facility] Name: Margarita Dominique Age: 58 yrs Sex: Female : 1960 Arrival Date: 08/09/2018 Time: 15:57 Bed 5 Private MD: Diagnosis: Tension-type headache Presentation: 08/09 15:57 Presenting complaint: EMS states: pt was at dialysis, had been on dialysis for a little tw2 over 1 hour, they pulled off 1.5L, she started having a headache and they said her pressure was elevated so she took all her morning meds and the staff gave her 0.1 mg clonidine PO, she was 196/113 for us, 12 lead unremarkable, pt c/o left arm pain, 191 mg/dL blood sugar. Transition of care: patient was not received from another setting of care. Onset of symptoms was August 09, 2018. Risk Assessment: Do you want to hurt yourself or someone else? Patient reports no desire to harm self or others. Initial Sepsis Screen: Does the patient meet any 2 criteria? No. Patient's initial sepsis screen is negative. Does the patient have a suspected source of infection? No. Patient's initial sepsis screen is negative. Care prior to arrival: None. 15:57 Method Of Arrival: EMS: [facility] tw2 15:57 Acuity: YEFRI 3 tw2 Triage Assessment: 17:34 Headache History: The patient has had previous headaches. General: Appears. Pain: Pain tw2 currently is 10 out of 10 on a pain scale. Pain began today during dialysis Also complains of no other associated symptoms. Historical: - Allergies: 16:02 No Known Allergies; tw2 - Home Meds: 16:02 amlodipine 10 mg tab 1 tab once daily [Active]; aspirin 81 mg Oral chew 1 tab once tw2 daily [Active]; atorvastatin 40 mg Oral tab 1 tab once daily [Active]; carvedilol 25 mg Oral tab 1 tab 2 times per day [Active]; clopidogrel 75 mg Oral tab 1 tab once daily [Active]; cyclobenzaprine 10 mg Oral tab 1 tab once per day [Active]; fluticasone 50 mcg/actuation nasal spsn 1 spray 2 times per day [Active]; furosemide 20 mg Oral tab 1 tab once daily [Active]; gabapentin 100 mg Oral cap 1 caps once nightly [Active]; hydralazine 25 mg Oral tab 1 tab 3 times per day [Active]; isosorbide dinitrate 30 mg Oral tab 1 tab once per day [Active]; Lantus 100 unit/mL Sub-Q soln 10 units nightly [Active]; losartan 100 mg Oral tab 1 tab once daily [Active]; Synthroid 25 mcg Oral tab 1 tab once daily [Active]; Novolin R 12 units with meal Sub-Q [Active]; vitamin D 2, 50,000 units once weekly [Active]; - PMHx: 16:02 Diabetes - NIDDM; HEART FAILURE; Hypertension; Hypothyroidism; vitamin d deficiency; tw2 - PSHx: 16:02 RIGHT BKA; tw2 - Immunization history:: Adult Immunizations. - Social history:: Smoking status: Patient/guardian denies using alcohol, street drugs, The patient lives with family. - Ebola Screening: : Patient denies travel to an Ebola-affected area in the 21 days before illness onset. - Family history:: not pertinent. Screenin:34 Abuse screen: Denies threats or abuse. Nutritional screening: No deficits noted. tw2 Tuberculosis screening: No symptoms or risk factors identified. Fall Risk Secondary diagnosis (15 points) impaired mobility. Assessment: 16:00 General: Appears in no apparent distress. well groomed, Behavior is calm, cooperative, tw2 appropriate for age. Pain: Complains of pain in "headache". Neuro: Level of Consciousness is awake, alert, obeys commands, Oriented to person, place, time, situation. Neuro: Reports headache. Cardiovascular: Heart tones S1 S2 Patient's skin is warm and dry. Respiratory: Airway is patent Respiratory effort is even, unlabored, Respiratory pattern is regular, symmetrical, Breath sounds are clear bilaterally. GI: No signs and/or symptoms were reported involving the gastrointestinal system. Abdomen is flat, Bowel sounds present X 4 quads. : No signs and/or symptoms were reported regarding the genitourinary system. EENT: No signs and/or symptoms were reported regarding the EENT system. Derm: No signs and/or symptoms reported regarding the dermatologic system. Musculoskeletal: Amputation of RIGHT BKA, pt is wearing prosthesis. 16:13 Reassessment: Dr. Conklin at bedside at this time. tw2 17:30 Reassessment: Patient appears in no apparent distress at this time. Patient and/or tw2 family updated on plan of care and expected duration. Pain level reassessed. Patient is alert, oriented x 3, equal unlabored respirations, skin warm/dry/pink. 18:25 Reassessment: Patient appears in no apparent distress at this time. Patient and/or tw2 family updated on plan of care and expected duration. Pain level reassessed. Patient is alert, oriented x 3, equal unlabored respirations, skin warm/dry/pink. 19:28 Reassessment: Patient appears in no apparent distress at this time. Patient and/or ed1 family updated on plan of care and expected duration. Pain level reassessed. Patient is alert, oriented x 3, equal unlabored respirations, skin warm/dry/pink. 20:04 Reassessment: Patient appears in no apparent distress at this time. No changes from ed1 previously documented assessment. Patient and/or family updated on plan of care and expected duration. Pain level reassessed. Patient is alert, oriented x 3, equal unlabored respirations, skin warm/dry/pink. 20:41 Reassessment: Upon discharge pt's son became concerned about the patients blood ed1 pressure being low. I informed Dr. Conklin and he said we will monitor for a little while longer then discharge the patient if she is stable. Pt's family brought outside food for patient. 21:30 Reassessment: Patient appears in no apparent distress at this time. Patient and/or ed1 family updated on plan of care and expected duration. Pain level reassessed. Patient is alert, oriented x 3, equal unlabored respirations, skin warm/dry/pink. Patient states symptoms have improved. 22:17 Reassessment: Patient appears in no apparent distress at this time. Patient and/or ed1 family updated on plan of care and expected duration. Pain level reassessed. Patient is alert, oriented x 3, equal unlabored respirations, skin warm/dry/pink. Patient states feeling better. Patient states symptoms have improved. 23:20 Reassessment: Patient appears in no apparent distress at this time. Patient and/or ed1 family updated on plan of care and expected duration. Pain level reassessed. Patient is alert, oriented x 3, equal unlabored respirations, skin warm/dry/pink. Patient states feeling better. Patient states symptoms have improved. Vital Signs: 16:11 BP 217 / 79; Pulse 87; Resp 19; Temp 97.9(O); Pulse Ox 100% on R/A; Pain 10/10; tw2 17:14 BP 209 / 121; Pulse 85; Resp 17; Pulse Ox 95% on R/A; tw2 17:30 BP 217 / 85; Pulse 78; Resp 19; Pulse Ox 100% on R/A; tw2 18:23 BP 195 / 70; Pulse 70; Resp 17; Pulse Ox 97% on R/A; tw2 19:28 BP 202 / 81; Pulse 72; Resp 18; Pulse Ox 100% on R/A; Pain 10/10; ed1 20:04 BP 128 / 53; Pulse 76; Resp 22; Pulse Ox 98% on R/A; Pain 8/10; ed1 20:05 BP 128 / 53; ed1 20:41 BP 99 / 47; Pulse 77; Resp 17; Pulse Ox 99% on R/A; Pain 5/10; ed1 21:30 BP 107 / 74; Pulse 74; Resp 16; Pulse Ox 98% on R/A; Pain 5/10; ed1 22:17 BP 111 / 53; Pulse 70; Resp 19; Pulse Ox 99% on R/A; Pain 4/10; ed1 23:20 BP 112 / 46; Pulse 66; Resp 17; Pulse Ox 95% on R/A; Pain 2/10; ed1 16:11 "headache" tw2 [place] Coma Score: 23:19 Eye Response: spontaneous(4). Verbal Response: oriented(5). Motor Response: obeys ma2 commands(6). Total: 15. ED Course: 15:57 Patient arrived in ED. tw2 15:58 Placed in gown. Bed in low position. Side rails up X2. site monitor on. Pulse ox on. tw2 NIBP on. 15:59 Triage completed. tw2 16:02 Sunil Conklin MD is Attending Physician. gs 16:04 EKG done, by offshore wind turbine technician. reviewed by Sunil Conklin MD. sm3 16:05 Guadalupe Levy, TIFFANY is Primary Nurse. tw2 16:06 Arm band placed on. tw2 16:[address] via stretcher. nj 16:35 CT completed. Patient tolerated procedure well. Patient moved back from CT. nj 16:36 CT Head Brain wo Cont In Process Unspecified. EDMS 16:49 XRAY Chest (1 view) In Process Unspecified. EDMS 16:51 Missed attempt(s): 22 gauge in left antecubital area. Bleeding controlled, band aid tw2 applied, catheter tip intact. Missed attempt(s): 22 gauge in left antecubital area. Bleeding controlled, band aid applied, catheter tip intact. 17:15 Inserted saline lock: 22 gauge in left antecubital area, using aseptic technique. Blood ss collected. 19:05 Report given to TIFFANY Ogden. tw2 19:14 Primary Nurse role handed off by Guadalupe Levy RN ed1 19:14 Becka Del Cid, TIFFANY is Primary Nurse. ed1 20:41 Awaiting: approval for discharge. ed1 23:19 Attending Physician role handed off by Sunil Conklin MD ma2 23:19 Delfin Zeng MD is Attending Physician. ma2 23:36 No provider procedures requiring assistance completed. IV discontinued, intact, ed1 bleeding controlled, No redness/swelling at site. Pressure dressing applied. Administered Medications: 17:17 Drug: cloNIDine 0.2 mg Route: PO; tw2 18:23 Follow up: Response: No adverse reaction; Blood pressure is lowered tw2 19:58 Drug: hydrALAZINE 20 mg Route: IV; Rate: calculated rate; Site: left antecubital; ed1 20:05 Follow up: BP 128 / 53; Response: No adverse reaction; Blood pressure is lowered; IV ed1 Status: Completed infusion; IV Intake: 1ml 21:17 Drug: NS 0.9% 500 ml Volume: 500 ml; Route: IV; Rate: 1 bolus; Site: left antecubital; ed1 22:00 Follow up: IV Status: Completed infusion; IV Intake: 500ml ed1 Intake: 20:05 IV: 1ml; Total: 1ml. ed1 22:00 IV: 500ml; Total: 501ml. ed1 Outcome: 20:28 Discharge ordered by . gs 23:21 Discharge ordered by . ma2 23:36 Discharged to home via wheelchair, with family. ed1 23:36 Condition: good 23:36 Discharge instructions given to patient, Instructed on discharge instructions, follow up and referral plans. medication usage, Demonstrated understanding of instructions, follow-up care, medications. 08/10 00:13 Patient left the ED. ed1 Signatures: Dispatcher [employer] EDMS Janice Frisa RN RN ss Becka Del Cid RN RN ed1 Guadalupe Levy RN RN tw2 Darwin Sutherland Gregory, MD MD Delfin Zeng MD MD nj2 Lulu [place] 3 Corrections: (The following items were deleted from the chart) 08/09 22:19 20:41 Reassessment: Upon discharge pt's son became concerned about the patients blood ed1 pressure being low. I informed Dr. Conklin and he said we will monitor for a little while longer then discharge the patient if she is stable ed1
[2018-08-09] MEDS ORDERED: NA CHLORIDE 0.9% 500 ML ONE (21:16)
[2018-08-10 00:56] VITALS: TEMP 97.9
[2018-08-10 01:09] VITALS: BP 112/46; O2SAT 95
--- NOTE | 2018-08-10 08:49 | EKG ---
Test Date: 2018-08-09 Test Time: 16:00:17 Clinical Laboratory Aide: MINNIE MEASUREMENT RESULTS: Intervals: Rate: 84 HI: 166 QRSD: 92 QT: 398 QTc: 470 [place]: P: 69 HI: 166 QRS: 72 T: 36 INTERPRETIVE STATEMENTS: Normal sinus rhythm Cannot rule out Anterior infarct, age undetermined Abnormal ECG Compared to ECG 05/25/2018 11:46:36 Myocardial infarct finding now present ST (T wave) deviation no longer present Prolonged QT interval no longer present Electronically Signed On 08-10-18 08:46:16 LEAD GENERATOR by Bishop Sheehan
== END 2018-08-10 00:13 | disposition home or self-care (01) ==
LOC: ER 15:54
DX: G44.209 Tension-type headache, unspecified, not intractable (principal); E11.9 Type 2 diabetes mellitus without complications; I11.0 Hypertensive heart disease with heart failure; I10 Essential (primary) hypertension; E03.9 Hypothyroidism, unspecified; Z79.82 Long term (current) use of aspirin; Z79.4 Long term (current) use of insulin; Z79.51 Long term (current) use of inhaled steroids
CPT/HCPCS: 36415; 70450; 71045; 80048; 80076; 82962; 83735; 83880; 84484; 85025; 85610; 93005; 96361; 96374; 99285; J0360

== ENCOUNTER 2019-04-12 17:12 | Emergency (ER) | payer OTHER ==
--- NOTE | 2019-04-12 18:44 | RAD REPORT ---
EXAM DESCRIPTION: CT - Head C Spine Mpr Wo Con - 04/12/2019 6:25 pm CLINICAL HISTORY: Head and neck injury status post fall. Head and neck pain COMPARISON: July 2018 TECHNIQUE: Computed axial tomography of the head and cervical spine was obtained. Sagittal and coronal reconstruction was performed. All CT scans are performed using dose optimization technique as appropriate and may include automated exposure control or mA/KV adjustment according to patient size. FINDINGS: An intracranial bleed is not seen. The ventricles are normal in caliber. An extra-axial fl uid collection is not noted.Fluid within the visualized sinuses and mastoids is not seen A cervical fracture is not visualized. No dislocation is noted. IMPRESSION: No acute intracranial abnormality is seen. A cervical fracture is not visualized. If the patient continues to have symptoms to suggest intracra nial /spinal cord pathology then MRI would be recommended
--- NOTE | 2019-04-12 18:50 | EDPHYS ---
Physician Documentation [facility] Name: Margarita Dominique Age: 58 yrs Sex: Female : 1960 Arrival Date: 04/12/2019 Time: 17:15 Bed 30 Private MD: ED Physician Graham Knapp HPI: 04/12 19:06 This 58 yrs old Female presents to ER via Wheelchair with complaints of Fall snw Injury. 19:06 Details of fall: The patient fell from an upright position, while standing. Onset: The snw symptoms/episode began/occurred suddenly, today. Associated injuries: The patient sustained injury to the head, contusion. Severity of symptoms: At their worst the symptoms were mild. It is unknown whether or not the patient has had similar symptoms in the past. dialysis yesterday. Pt states with her foot drop and the amputation she could not regain her balance and fell back and struck occiput, no LOC, no vomiting. Historical: - Allergies: 17:30 No Known Allergies; la1 - PMHx: 17:30 Diabetes - NIDDM; HEART FAILURE; Hypertension; Hypothyroidism; vitamin d deficiency; la1 17:30 Dialysis; la1 - Immunization history:: Adult Immunizations up to date. - Social history:: Smoking status: Patient/guardian denies using tobacco. - Immunization history: Last tetanus immunization: - up to date. - Ebola Screening: : No symptoms or risks identified at this time. ROS: 18:57 Constitutional: Negative for fever, chills, and weight loss, Eyes: Negative for injury, snw pain, redness, and discharge, ENT: Negative for injury, pain, and discharge, Neck: Negative for injury, pain, and swelling, Cardiovascular: Negative for chest pain, palpitations, and edema, Respiratory: Negative for shortness of breath, cough, wheezing, and pleuritic chest pain, Abdomen/GI: Negative for abdominal pain, nausea, vomiting, diarrhea, and constipation, Back: Negative for injury and pain, : Negative for injury, bleeding, discharge, and swelling, MS/Extremity: Negative for injury and deformity, Skin: Negative for injury, rash, and discoloration, Neuro: Negative for headache, weakness, numbness, tingling, and seizure. Exam: 18:56 Constitutional: This is a well developed, well nourished patient who is awake, alert, snw and in no acute distress. Head/Face: Normocephalic, mild contusion to occiput Eyes: Pupils equal round and reactive to light, extra-ocular motions intact. Lids and lashes normal. Conjunctiva and sclera are non-icteric and not injected. Cornea within normal limits. Periorbital areas with no swelling, redness, or edema. ENT: Nares patent. No nasal discharge, no septal abnormalities noted. Tympanic membranes are normal and external auditory canals are clear. Oropharynx with no redness, swelling, or masses, exudates, or evidence of obstruction, uvula midline. Mucous membranes moist. Neck: Trachea midline, no thyromegaly or masses palpated, and no cervical lymphadenopathy. Supple, full range of motion without nuchal rigidity, or vertebral point tenderness. No Meningismus. Chest/axilla: Normal chest wall appearance and motion. Nontender with no deformity. No lesions are appreciated. Cardiovascular: Regular rate and rhythm with a normal S1 and S2. No gallops, murmurs, or rubs. Normal PMI, no JVD. No pulse deficits. Respiratory: Lungs have equal breath sounds bilaterally, clear to auscultation and percussion. No rales, rhonchi or wheezes noted. No increased work of breathing, no retractions or nasal flaring. Abdomen/GI: Soft, non-tender, with normal bowel sounds. No distension or tympany. No guarding or rebound. No evidence of tenderness throughout. Back: No spinal tenderness. No costovertebral tenderness. Full range of motion. Skin: Warm, dry with normal turgor. Normal color with no rashes, no lesions, and no evidence of cellulitis. MS/ Extremity: Pulses equal, no cyanosis. Neurovascular intact. left foot drop with bracing and right AKA with prosthesis Neuro: Awake and alert, GCS 15, oriented to person, place, time, and situation. Cranial nerves II-XII grossly intact. Motor strength 5/5 in all extremities. Sensory grossly intact. Cerebellar exam normal. Normal gait. Psych: Awake, alert, with orientation to person, place and time. Behavior, mood, and affect are within normal limits. Vital Signs: 17:30 BP 155 / 60; Pulse 84; Resp 16; Temp 98.7; Pulse Ox 100% on R/A; Weight 64.41 kg; la1 Height 5 ft. 5 in. (165.10 cm); 19:00 BP 138 / 64; Pulse 81; Resp 16; Pulse Ox 100% on R/A; rv 17:30 Body Mass Index 23.63 (64.41 kg, 165.10 cm) la1 Nadira Coma Score: 18:06 Eye Response: spontaneous(4). Verbal Response: oriented(5). Motor Response: obeys rv commands(6). Total: 15. Trauma Score (Adult): 18:06 Eye Response: spontaneous(1); Verbal Response: oriented(1); Motor Response: obeys rv commands(2); Systolic BP: > 89 mm Hg(4); Respiratory Rate: 10 to 29 per min(4); Bath Score: 15; Trauma Score: 12 MDM: 17:57 Patient medically screened. snw 18:56 Data reviewed: vital signs, nurses notes. Data interpreted: Pulse oximetry: on room air snw is 100 %. Interpretation: normal. Counseling: I had a detailed discussion with the patient and/or guardian regarding: the historical points, exam findings, and any diagnostic results supporting the discharge/admit diagnosis, radiology results, the need for outpatient follow up, to return to the emergency department if symptoms worsen or persist or if there are any questions or concerns that arise at home. Special discussion: Based on the patient's history, exam and DX evaluation, there is no indication for emergent intervention or inpatient [place]. It is understood by the patient/guardian that if the SXs persist or worsen they need to return immediately for re-evaluation. Based on the history and exam findings, there is no indication for further emergent testing or inpatient evaluation. I discussed with the patient/guardian the need to see the primary care provider for further evaluation of the symptoms. 04/12 18:14 Order name: CT Head C Spine; Complete Time: 18:48 snw Administered Medications: No medications were administered Disposition: 04/12/19 18:49 Discharged to Home. Impression: Fall on same level, unspecified, Unspecified injury of head. - Condition is Stable. - Discharge Instructions: Head Injury, Adult, Fall Prevention in the Home. - Medication Reconciliation Form, Thank You Letter, Antibiotic Education, Prescription Opioid Use form. - Follow up: Private Physician; When: 1 - 2 days; Reason: Recheck today's complaints, Continuance of care, Re-evaluation by your physician. Follow up: Emergency Department; When: As needed; Reason: Worsening of condition. Signatures: Dispatcher [employer] EDMS Fred Lucy, TERESA-C HOT MAN-Csnw Vahid Augustin RN RN la1 Bc Posada RN RN rv Corrections: (The following items were deleted from the chart) 19:06 18:49 04/12/2019 18:49 Discharged to Home. Impression: Fall on same level, unspecified; rv Unspecified injury of head. Condition is Stable. Forms are Medication Reconciliation Form, Thank You Letter, Antibiotic Education, Prescription Opioid Use. Follow up: Private Physician; When: 1 - 2 days; Reason: Recheck today's complaints, Continuance of care, Re-evaluation by your physician. Follow up: Emergency Department; When: As needed; Reason: Worsening of condition. snw 19:06 18:56 Constitutional: This is a well developed, well nourished patient who is awake, snw alert, and in no acute distress. Head/Face: Normocephalic, mild contusion to occiput Eyes: Pupils equal round and reactive to light, extra-ocular motions intact. Lids and lashes normal. Conjunctiva and sclera are non-icteric and not injected. Cornea within normal limits. Periorbital areas with no swelling, redness, or edema. ENT: Nares patent. No nasal discharge, no septal abnormalities noted. Tympanic membranes are normal and external auditory canals are clear. Oropharynx with no redness, swelling, or masses, exudates, or evidence of obstruction, uvula midline. Mucous membranes moist. Neck: Trachea midline, no thyromegaly or masses palpated, and no cervical lymphadenopathy. Supple, full range of motion without nuchal rigidity, or vertebral point tenderness. No Meningismus. Chest/axilla: Normal chest wall appearance and motion. Nontender with no deformity. No lesions are appreciated. Cardiovascular: Regular rate and rhythm with a normal S1 and S2. No gallops, murmurs, or rubs. Normal PMI, no JVD. No pulse deficits. Respiratory: Lungs have equal breath sounds bilaterally, clear to auscultation and percussion. No rales, rhonchi or wheezes noted. No increased work of breathing, no retractions or nasal flaring. Abdomen/GI: Soft, non-tender, with normal bowel sounds. No distension or tympany. No guarding or rebound. No evidence of tenderness throughout. Back: No spinal tenderness. No costovertebral tenderness. Full range of motion. Skin: Warm, dry with normal turgor. Normal color with no rashes, no lesions, and no evidence of cellulitis. MS/ Extremity: Pulses equal, no cyanosis. Neurovascular intact. Full, normal range of motion. Neuro: Awake and alert, GCS 15, oriented to person, place, time, and situation. Cranial nerves II-XII grossly intact. Motor strength 5/5 in all extremities. Sensory grossly intact. Cerebellar exam normal. Normal gait. Psych: Awake, alert, with orientation to person, place and time. Behavior, mood, and affect are within normal limits. snw
--- NOTE | 2019-04-12 18:50 | ER ---
Nurse's Notes [facility] Name: Margarita Dominique Age: 58 yrs Sex: Female : 1960 Arrival Date: 04/12/2019 Time: 17:15 Bed 30 Private MD: Diagnosis: Fall on same level, unspecified;Unspecified injury of head Presentation: 04/12 17:29 Presenting complaint: Child states: She lost her balance and fell backward hitting the la1 back of her head, No LOC, no vomiting, takes ASA daily. Pt alert, oriented x3. Transition of care: patient was not received from another setting of care. Onset of symptoms was April 12, 2019. Risk Assessment: Do you want to hurt yourself or someone else? Patient reports no desire to harm self or others. Initial Sepsis Screen: Does the patient meet any 2 criteria? No. Patient's initial sepsis screen is negative. Does the patient have a suspected source of infection? No. Patient's initial sepsis screen is negative. Care prior to arrival: None. 17:29 Method Of Arrival: Wheelchair la1 17:29 Acuity: YEFRI 3 la1 18:09 Mechanism of Injury: Fall. Trauma event details: Injury occurred in the county of [facility], Injury occurred: at home. Injury occurred: April 12, 2019 Injury occurred at: 17:00. Historical: - Allergies: 17:30 No Known Allergies; la1 - PMHx: 17:30 Diabetes - NIDDM; HEART FAILURE; Hypertension; Hypothyroidism; vitamin d deficiency; la1 17:30 Dialysis; la1 - Immunization history:: Adult Immunizations up to date. - Social history:: Smoking status: Patient/guardian denies using tobacco. - Immunization history: Last tetanus immunization: - up to date. - Ebola Screening: : No symptoms or risks identified at this time. Screenin:05 Abuse screen: Denies threats or abuse. Denies injuries from another. Nutritional rv screening: No deficits noted. Tuberculosis screening: No symptoms or risk factors identified. Fall Risk No fall in past 12 months (0 pts). Secondary diagnosis (15 points) impaired mobility, No IV (0 pts). Ambulatory Aid- Furniture (30 pts.). Gait- Weak (10 pts.). Mental Status- Oriented to own ability (0 pts). Total Bell Fall Scale indicates Low Risk Score (25-44 pts). Fall prevention measures have been instituted. Side Rails Up X 2 Placed close to Nursing Station Frequent Obs/Assesments occuring As available Patient and Family Educated on Fall Prevention Program and strategies. Primary Survey: 18:06 NO uncontrolled hemorrhage observed. Breathing/Chest: Respiratory pattern:. rv Circulation: Skin temperature: warm. Disability Alert. Exposure/Environment: There is no evidence of uncontrolled external bleeding. No obvious injuries are noted at this time. A warming method has been applied: A warm blanket has been provided to the patient. Assessment: 17:53 General: Appears in no apparent distress. comfortable, Behavior is calm, cooperative. rv Pain: Complains of pain in scalp. Neuro: Level of Consciousness is awake, alert, obeys commands, Oriented to person, place, time, situation. Cardiovascular: Patient's skin is warm and dry. Respiratory: Airway is patent. GI: No signs and/or symptoms were reported involving the gastrointestinal system. : No signs and/or symptoms were reported regarding the genitourinary system. EENT: No signs and/or symptoms were reported regarding the EENT system. Derm: Skin is intact. Musculoskeletal: No signs and/or symptoms reported regarding the musculoskeletal system. Vital Signs: 17:30 BP 155 / 60; Pulse 84; Resp 16; Temp 98.7; Pulse Ox 100% on R/A; Weight 64.41 kg; la1 Height 5 ft. 5 in. (165.10 cm); 19:00 BP 138 / 64; Pulse 81; Resp 16; Pulse Ox 100% on R/A; rv 17:30 Body Mass Index 23.63 (64.41 kg, 165.10 cm) la1 [place] Coma Score: 18:06 Eye Response: spontaneous(4). Verbal Response: oriented(5). Motor Response: obeys rv commands(6). Total: 15. Trauma Score (Adult): 18:06 Eye Response: spontaneous(1); Verbal Response: oriented(1); Motor Response: obeys rv commands(2); Systolic BP: > 89 mm Hg(4); Respiratory Rate: 10 to 29 per min(4); Nadira Score: 15; Trauma Score: 12 ED Course: 17:15 Patient arrived in ED. mr 17:30 Triage completed. la1 17:30 Arm band placed on right wrist. la1 17:33 Bc Posada, RN is Primary Nurse. rv 17:57 Lucy Ibarra FNP-C [facility]. snw 17:57 Graham Knapp MD is Attending Physician. snw 18:07 Patient has correct armband on for positive identification. Bed in low position. Call rv light in reach. Side rails up X 1. Pulse ox on. NIBP on. 18:09 Patient maintains SpO2 saturation greater than 95% on room air. rv 18:10 Thermoregulation: warm blanket given to patient. rv 18:25 CT Head C Spine In Process Unspecified. EDMS 19:06 No provider procedures requiring assistance completed. Patient did not have IV access rv during this emergency room visit. Administered Medications: No medications were administered Outcome: 18:49 Discharge ordered by . snw 19:06 Discharged to home ambulatory. rv 19:06 Condition: good 19:06 Discharge instructions given to patient, Instructed on discharge instructions, follow up and referral plans. Demonstrated understanding of instructions, follow-up care. 19:06 Patient left the ED. rv Signatures: Dispatcher [employer] EDNV Lucy Ibarra FNP-C CIGARETTE STAMPER-Iwona Cynthia Javed Vahid Augustin RN RN la1 Bc Posada, RN RN rv
[2019-04-12 20:28] VITALS: TEMP 98.7; O2SAT 100
[2019-04-12 20:29] VITALS: BP 138/64
== END 2019-04-12 19:06 | disposition home or self-care (01) ==
LOC: ER 17:12
DX: S09.90XA Unspecified injury of head, initial encounter (principal); W19.XXXA Unspecified fall, initial encounter; Y93.89 Activity, other specified; Y92.9 Unspecified place or not applicable; Z99.2 Dependence on renal dialysis; I10 Essential (primary) hypertension
CPT/HCPCS: 70450; 72125; 99284

== ENCOUNTER 2019-08-25 14:48 | Emergency (ER) | payer OTHER ==
--- OUTSIDE RECORDS SUMMARY | 2019-08-25 14:50 | XMS REPORT ---
:1960 Author Organization [facility] Address [address] [place] [address] Care Team Providers Name Role Phone Unavailable [...] Comments Text Results Atomic Results Result Comments SURGICAL 2018-07-06 RUN SPECIMENS 08:04:00 DATE: 07/06/18 [facility] * LIVE* PAGE 1 RUN TIME: 08 Specimen Inquiry RUN USER: INTERFACE PATIENT : KOBI CORONADO LOC: CYNDIE U # : [id number] AGE/SX: 58/F ROOM: REREG DR: Jonathan Reid MD : [birth year] BED: DIS: STATUS: [facility] TLOC: SPEC #: [id number] RECD: 07/01/18 STATUS: [facility] #: [id number] JENIFFER: 07/01/[address] [facility] [address]: Jonathan Reid MD ENTERED: 07/05/18 SP TYPE: SURG SPEC OTHR DR: No Primary or Family PhysicianORDERED : GM LEVEL 4 CODES: [id number] - COLON, NOS COPIES TO: No Primary or Family Physician Jonathan Reid MD [address] [place] [address] PROCEDURES: GM LEVEL 4 (Incomplete) TISSUES: 1. COLON, NOS - Colon, ascending, bx. 2. COLON, NOS - Colon, transverse, bx. 3. COLON, NOS - Colon, descending, bx. FINAL DIAGNOSIS Colon, ascending, bx.: Tubular adenoma. Colon, transverse, bx.: Tubular adenoma. Colon, descnding, bx.: Tubular adenoma. GROSS AND MICROSCOPIC GROSS EXAMINATION: Received in formalin labeled ascending colon polyp is one hinson tissue fragment measuring 0.3 cm (A). Received in formalin labeled transverse colon polyp are 4 hinson tissue fragments measuring up to 0.3 cm (B). Received in formalin labeled descending colon polyp is one hinson tissue fragment measuring up to 0.3 cm (C). 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 CONTINUED ON NEXT PAGE RUN DATE: 07/06/18 [facility] *LIVE* PAGE 2 RUN TIME: 803 Specimen Inquiry RUN USER: INTERFACE SPEC #: [id number] PATIENT: ANIKA CORONADOA #[id number] (Continued) ---- POST-OP DIAGNOSIS Colon polyp PRE-OP DIAGNOSIS Colon screen Signed SIGNATURE ON FILE Frederick Scott DO 08 END OF REPORT SCR MAMM 2018-04-27 - SCR MAMM BILATERAL DAVIS CAD DIGITALBILATERAL DIGITAL SCREENING MAMMOGRAM 3D/2D WITH CAD: BILATERAL 15:42:55 04/21/2018CLINICAL: Asymptomatic. Digital breast tomosynthesis was performed in addition to DAVIS CAD routine CC and MLO views. Current mammographic images were evaluated by either a Bolster M-Vu or a DIGITAL [employer] ImageChecker CAD (computer aided detection system). No prior exams were available for comparison. There are scattered fibroglandular tissues in both breasts. Symmetric mild bilateral trabecula and skin thickening noted.No suspicious mass, architectural distortion, malignant type calcification, or lymph node abnormality detected. IMPRESSION: NEGATIVEThere is no mammographic evidence of malignancy. Resume annual screening mammography in one year. Marcia Norris M.D. el/:04/27/2018 15:42:55 Carpenter [employer]le [employer] Dolly: Jackelin Rocha MM, [facility] Mammographyletter sent: BIRADS 1-2 Normal Mammogram BI-RADS: 1 Negative
--- OUTSIDE RECORDS SUMMARY | 2019-08-25 14:50 | XMS REPORT ---
:1960 Author Organization [employer] Care Team Providers Name Role Phone Tre Syed Provider Role Unavailable Allergies, Adverse Reactions, Alerts Substance Reaction Event Type N.K.D.A. Info Not Available Non Drug Allergy Problems Problem Type Condition Code Onset Dates Condition Status Assessment Lumbar radiculopathy M54.16 Active Assessment Trochanteric bursitis of left hip M70.62 Active Medications Medication Code Code Instructions Start End Status Dosage System Date Date Atorvastatin [facility] 37444313622 40 MG Oral Active TOME DIXIE Calcium (1) TABLETA(S) POR LA BOCA DIXIE VEZ AL TAMIKO. Clopidogrel [facility] 94711357745 75 MG Oral Active TOME DIXIE Bisulfate (1) TABLETA(S) POR LA BOCA DIXIE VEZ AL TAMIKO. Tramadol HCl [facility] [id number] 50 MG Oral Active (Schedule IV Drug) TOME DIXIE (1) TABLETA(S) POR LA BOCA CADA SEIS HORAS VELVET NECESARIO PARA DOLOR. Acetaminophen-Co [facility] [id number] 300-30 MG Oral Active (Schedule deine #3 III Drug) TOME DIXIE (1) TABLETA(S) POR LA BOCA CADA SEIS HORAS VELVET NECESARIO PARA DOLOR. Levothyroxine [facility] [id number] 25 MCG Oral Active TOME DIXIE Sodium (1) TABLETA(S) POR LA BOCA DIXIE VEZ AL TAMIKO. Lisinopril [facility] [id number] 20 MG Oral Active TOME DIXIE (1) TABLETA(S) POR LA BOCA DIXIE VEZ AL TAMIKO. Lantus SoloStar [facility] [id number] 100 UNIT/ML Active INYECTE 20 Subcutaneous UNIDADES DEBAJO DE LA PIEL CADA NOCHE. Carvedilol [facility] [id number] 25 MG Oral Active TOME DIXIE (1) TABLETA(S) POR LA BOCA DIXIE VEZ AL TAMIKO. Humulin R [facility] [id number] 100 UNIT/ML Active INJECT Injection TWELVE (12) UNITS UNDER THE SKIN WITH MEALS DIRECTED AND USE SLIDING SCALE UP TO MAX DAILY DOSE OF 40 UNITS. Furosemide [facility] [id number] 20 MG Oral Active TOME DIXIE (1) TABLETA(S) POR LA BOCA DIXIE VEZ AL TAMIKO. Lidocaine-Priloc [facility] 24940258910 2.5-2.5 % Active APLIQUE DIXIE cassie External (1) HORA ANTES DEL DIALISIS GREGROIA VECES A LA SEMANA. Amlodipine [facility] [id number] 10 MG Oral Active TOME DIXIE Besylate (1) TABLETA(S) POR LA BOCA DIXIE VEZ AL TAMIKO. Results No Known Results Summary Purpose [employer]ClinicalWorks Submission
--- NOTE | 2019-08-25 16:05 | RAD REPORT ---
EXAM DESCRIPTION: CT - Head Brain Wo Cont - 08/25/2019 3:50 pm CLINICAL HISTORY: right sided vision change COMPARISON: Head Brain Wo Cont dated 08/09/2018 TECHNIQUE: Axial 5 mm thick images of the head were obtained without IV contrast. All CT scans are performed using dose optimization technique as appropriate and may include automated exposure control or mA/KV adjustment according to patient size. FINDINGS: No intracranial hemorrhage, mass, edema or shift of mid-line structures. No acute infarcti on changes seen. No abnormal extra-axial fluid collections. Ventricles are normal. No significant atr ophy changes. Patient has mild chronic ischemic change. There are calcifications along the anterior f anna. Mastoid air cells and visualized portions of the paranasal sinuses are clear. No acute bony findings. IMPRESSION: Negative non-contrast CT head examination for acute finding No significant change from July 2018.
--- NOTE | 2019-08-25 16:24 | RAD REPORT ---
EXAM DESCRIPTION: RAD - Chest Single View - 08/25/2019 3:58 pm CLINICAL HISTORY: weakness, shortness of breath COMPARISON: Chest Single View dated 08/09/2018; Chest Single View dated 05/27/2018 TECHNIQUE: AP portable chest image was obtained 08/25/2019 3:58 pm . FINDINGS: No peripheral mass or consolidation. Double-lumen catheter has been removed since the comp arison study. Mild cardiomegaly is present without vascular engorgement. No significant failure or vo lume overload seen. No measurable pleural effusion and no pneumothorax. No acute bony abnormality see n. No acute aortic findings suspected. IMPRESSION: No acute cardiopulmonary process. Above detailed chest findings are not substantially different from comparison.
--- NOTE | 2019-08-25 18:15 | RAD REPORT ---
EXAM DESCRIPTION: MRI - Brain Wo Cont - 08/25/2019 6:02 pm CLINICAL HISTORY: right sided vision change COMPARISON: Brain Wo Cont dated 05/31/2018; Head Brain Wo Cont dated 08/25/2019 TECHNIQUE: Sagittal T1-weighted images were obtained along with axial PD, heavily T2-weighted and T2 -FLAIR images. Axial DWI and ADC mapping sequences were also obtained along with coronal heavily T2-w eighted images. FINDINGS: No intracranial hemorrhage, mass or acute infarction. There is no edema or shift of midlin e structures. No extra-axial fluid collections. Joya-matter/white matter junction is preserved. Signa l voids are seen as a normal finding in the major intracranial vessels. Atrophy changes are mild. Multiple white matter T2 signal abnormalities are present. This pattern gen erally matches the 2018 study. This is most likely chronic ischemic change. Several other white matte r lesions are in a periventricular distribution. This is probably still chronic ischemic change but d oes raise the possibility of MS or other demyelinization process. No globe or orbital content abnormality. No sella or supra sella abnormality. Mastoid air cells and paranasal sinuses are clear. IMPRESSION: No acute infarction. No mass, hemorrhage or acute intracranial finding. Numerous white matter signal abnormalities are present not substantially different from May 2018 MRI. This is most likely chronic ischemic change. A few of the lesions are in a periventricular dist ribution which raises the possibility of MS. This would need correlation with clinical presentation.
--- NOTE | 2019-08-25 19:45 | EDPHYS ---
Physician Documentation [facility] Name: Margarita Dominique Age: 59 yrs Sex: Female : 1960 Arrival Date: 08/25/2019 Time: 14:59 Bed 6 Private MD: ED Physician Nikita Bunch HPI: 08/24 15:13 This 59 yrs old Female presents to ER via EMS with complaints of vision jmm changes. 15:13 Onset: The symptoms/episode began/occurred gradually, 3 day(s) ago. Duration: This was jmm a single incident. The symptoms are alleviated by nothing. The symptoms are aggravated by nothing. Associated signs and symptoms: Pertinent negatives: chest pain. This is a 59 year old female with a history of DM, ESRD, HTN, that presents to the ED with complaints of right sided vision change. Patient stated this began 3 days ago. Denies unilateral weakness. Patient also complains of ongoing lower back and lower leg extremity pain which was evaluated by ortho last week. . Historical: - Allergies: 15:30 No Known Allergies; rv - Home Meds: 19:36 amlodipine 10 mg tab 1 tab once daily [Active]; aspirin 81 mg Oral chew 1 tab once rv daily [Active]; 19:36 atorvastatin 40 mg Oral tab 1 tab once daily [Active]; rv 19:37 carvedilol 25 mg Oral tab 1 tab 2 times per day [Active]; clopidogrel 75 mg Oral tab 1 rv tab once daily [Active]; cyclobenzaprine 10 mg Oral tab 1 tab once per day [Active]; fluticasone 50 mcg/actuation nasal spsn 1 spray 2 times per day [Active]; furosemide 20 mg Oral tab 1 tab once daily [Active]; gabapentin 100 mg Oral cap 1 caps once nightly [Active]; hydralazine 25 mg Oral tab 1 tab 3 times per day [Active]; isosorbide dinitrate 30 mg Oral tab 1 tab once per day [Active]; Lantus 100 unit/mL Sub-Q soln 10 units nightly [Active]; losartan 100 mg Oral tab 1 tab once daily [Active]; Novolin R 12 units with meal Sub-Q [Active]; Synthroid 25 mcg Oral tab 1 tab once daily [Active]; vitamin D 2, 50,000 units once weekly [Active]; - PMHx: 15:30 Diabetes - NIDDM; Dialysis; HEART FAILURE; Hypertension; Hypothyroidism; vitamin d rv deficiency; CVA; - PSHx: 15:30 BKA RIGHT; rv - Immunization history:: Adult Immunizations up to date. - Social history:: Smoking status: Patient denies any tobacco usage or history of. ROS: 15:13 Constitutional: Negative for fever, chills, and weight loss, Cardiovascular: Negative [facility] for chest pain, palpitations, and edema, Respiratory: Negative for shortness of breath, cough, wheezing, and pleuritic chest pain. 15:13 Back: Positive for pain at rest, pain with movement. 15:13 MS/extremity: Positive for pain. 15:13 Neuro: Positive for visual changes. 15:13 All other systems are negative. Exam: 15:13 Radiologist reports: negative [facility] 15:13 Constitutional: This is a well developed, well nourished patient who is awake, alert, and in no acute distress. Head/Face: atraumatic. Eyes: EOMI, no conjunctival erythema appreciated ENT: Moist Mucus Membranes Neck: Trachea midline, Supple Chest/axilla: Normal chest wall appearance and motion. Cardiovascular: Regular rate and rhythm. No edema appreciated Respiratory: Normal respirations, no respiratory distress appreciated Abdomen/GI: Non distended, soft Back: Normal ROM Skin: General appearance color normal MS/ Extremity: Moves all extremities, no obvious deformities appreciated, no edema noted to the lower extremities Neuro: Awake and alert, normal gait Psych: Behavior is normal, Mood is normal, Patient is cooperative and pleasant 15:13 Neuro: Orientation: is normal, Mentation: is normal, Memory: is normal, Motor: is normal. 15:13 Psych: Behavior/mood is pleasant, cooperative. 17:57 ECG was reviewed by the Attending Physician. m 19:41 Eyes: Periorbital structures: appear normal, Pupils: no acute changes, equal, round, la1 and reactive to light and accomodation, Extraocular movements: intact throughout, Conjunctiva: normal, Corneas: are normal, Sclera: no appreciated abnormality, Lids and lashes: appear normal, bilaterally, Visual hayward: are intact, Nystagmus: is not appreciated. Vital Signs: 14:55 BP 138 / 57; jl7 15:00 BP 138 / 57; Pulse 74; Resp 17; Temp 97.4(TE); Pulse Ox 99% on R/A; Weight 60.33 kg; mh5 Height 5 ft. 3 in. (160.02 cm); Pain 10/10; 16:25 BP 147 / 66; Pulse 78; Resp 16; Temp 97.8(O); Pulse Ox 95% on R/A; mh5 17:20 BP 152 / 66; Pulse 81; Resp 18; Pulse Ox 98% on R/A; mh5 18:51 Pulse 79; Resp 16; Temp 97.7; Pulse Ox 98% on R/A; rv 19:34 BP 166 / 66; Pulse 80; Resp 18; Pulse Ox 100% on R/A; rv 20:35 BP 156 / 89; Pulse 81; Resp 18; Pulse Ox 100% on R/A; mg2 15:00 Body Mass Index 23.56 (60.33 kg, 160.02 cm) 5 MDM: 15:13 Patient medically screened. [facility] 17:57 Data reviewed: vital signs, nurses notes. [facility] 18:01 Transition of care: After a detail discussion of the patient's case, care is [facility] 19:37 Differential diagnosis: CVA, TIA, small vessel disease, MS. Physician consultation: laZak Granados MD was called at 19:38, was contacted at 19:38, regarding consult, outpatient follow-up, in 2-3 days. ED course: pt without focal neurological deficits, PERRLA, EOMS intact. MRI raises suspicion for possible MS but this dx is very unlikely given age and sx. Dr. Granados will see patient in the clinic. Pt amendable to plan. Strict return precautions given including significant changes in vision, mental status, weakness. . 08/24 15:27 Order name: XRAY Chest (1 view); Complete Time: 17:31 [facility] 08/24 15:27 Order name: EKG; Complete Time: 15:38 [facility] 08/24 15:27 Order name: CT Head Brain wo Cont; Complete Time: 16:45 [facility] 08/24 16:46 Order name: MRI - Brain Wo Cont [facility] 08/24 16:46 Order name: Carotid Artery Bilateral US [facility] 08/24 15:27 Order name: Cardiac monitoring; Complete Time: 15:45 [facility] 08/24 15:27 Order name: EKG - Nurse/Tech; Complete Time: 15:45 [facility] 08/24 15:27 Order name: Labs collected and sent; Complete Time: 16:30 [facility] 08/24 15:27 Order name: O2 Per Protocol; Complete Time: 16:30 [facility] 08/24 15:27 Order name: O2 Sat Monitoring; Complete Time: 16:31 jmm EC:57 Rate is 76 beats/min. Rhythm is regular. QRS [place] is Normal. [place] interval is normal. QRS jmm interval is normal. QT interval is normal. No Q waves. T waves are Normal. No ST changes noted. Reviewed by me. Administered Medications: 20:05 Not Given (Physician Discretion): fentaNYL (PF) 25 mcg IVP once; RASS on ADMIN: rv Combtv4, Very Agttd3, Agttd2, Rstlss1, AlertClm0, Drwsy-1, Lt Sdtn-2, Mod Sdtn-3, Dp Sdtn-4, UnArsble-5 20:06 Drug: fentaNYL (PF) 25 mcg Route: IM; Site: right gluteus; rv 20:35 Follow up: Response: No adverse reaction; RASS: Alert and Calm (0) mg2 Disposition: 08/25 07:09 Co-signature as Attending Physician, Nikita Bunch MD I agree with the assessment and kdr plan of care. Disposition: 08/25/19 19:44 Discharged to Home. Impression: Ocular pain, right eye, Sciatica, left side. - Condition is Stable. - Discharge Instructions: Visual Disturbances, Sciatica, Sciatica, [id number]. - Medication Reconciliation Form, Thank You Letter form. - Follow up: Tevin Granados MD; When: 2 - 3 days; Reason: Recheck today's complaints, Re-evaluation by your physician. - Problem is new. - Symptoms have improved. Signatures: Dispatcher [employer] EDMS Nikita Bunch MD MD kdr Mickail, Joel, PA PA [facility] Vahid Augustin, STATOR CONNECTOR-C STATOR CONNECTOR-Cla1 Tristan Hope, RN RN mg2 Bc Posada RN RN rv Corrections: (The following items were deleted from the chart) 08/24 16:54 16:47 This 59 yrs old Female presents to ER via EMS with complaints of vision jmm changes. jmm 20:36 19:44 08/25/2019 19:44 Discharged to Home. Impression: Ocular pain, right eye; mg2 Sciatica, left side. Condition is Stable. Forms are Medication Reconciliation Form, Thank You Letter, Antibiotic Education, Prescription Opioid Use. Follow up: Tevin Granados; When: 2 - 3 days; Reason: Recheck today's complaints, Re-evaluation by your physician. Problem is new. Symptoms have improved. la1
--- NOTE | 2019-08-25 19:45 | ER ---
Nurse's Notes [facility] Name: Margarita Dominique Age: 59 yrs Sex: Female : 1960 Arrival Date: 08/25/2019 Time: 14:59 Bed 6 Private MD: Diagnosis: Ocular pain, right eye;Sciatica, left side Presentation: 08/24 14:55 Chief complaint: EMS states: pt c/o pain to right side of head and left flank that jl7 radiates down left leg. Coronavirus screen: The patient has NOT traveled to a country currently being monitored by the [facility] within the last 14 days. Proceed with normal triage procedures. Ebola Screen: No symptoms or risks identified at this time. Initial Sepsis Screen: Does the patient meet any 2 criteria? No. Patient's initial sepsis screen is negative. Does the patient have a suspected source of infection? No. Patient's initial sepsis screen is negative. Risk Assessment: Do you want to hurt yourself or someone else? Patient reports no desire to harm self or others. Onset of symptoms was August 24, 2019. Care prior to arrival: Glucose check: 284. 14:55 Method Of Arrival: EMS: [facility] jl7 14:55 Acuity: YEFRI 3 jl7 Triage Assessment: 19:35 General: Appears in no apparent distress. comfortable, Behavior is calm, cooperative. rv Historical: - Allergies: 15:30 No Known Allergies; rv - Home Meds: 19:36 amlodipine 10 mg tab 1 tab once daily [Active]; aspirin 81 mg Oral chew 1 tab once rv daily [Active]; 19:36 atorvastatin 40 mg Oral tab 1 tab once daily [Active]; rv 19:37 carvedilol 25 mg Oral tab 1 tab 2 times per day [Active]; clopidogrel 75 mg Oral tab 1 rv tab once daily [Active]; cyclobenzaprine 10 mg Oral tab 1 tab once per day [Active]; fluticasone 50 mcg/actuation nasal spsn 1 spray 2 times per day [Active]; furosemide 20 mg Oral tab 1 tab once daily [Active]; gabapentin 100 mg Oral cap 1 caps once nightly [Active]; hydralazine 25 mg Oral tab 1 tab 3 times per day [Active]; isosorbide dinitrate 30 mg Oral tab 1 tab once per day [Active]; Lantus 100 unit/mL Sub-Q soln 10 units nightly [Active]; losartan 100 mg Oral tab 1 tab once daily [Active]; Novolin R 12 units with meal Sub-Q [Active]; Synthroid 25 mcg Oral tab 1 tab once daily [Active]; vitamin D 2, 50,000 units once weekly [Active]; - PMHx: 15:30 Diabetes - NIDDM; Dialysis; HEART FAILURE; Hypertension; Hypothyroidism; vitamin d rv deficiency; CVA; - PSHx: 15:30 BKA RIGHT; rv - Immunization history:: Adult Immunizations up to date. - Social history:: Smoking status: Patient denies any tobacco usage or history of. Screenin:30 Abuse screen: Denies threats or abuse. Denies injuries from another. Nutritional rv screening: No deficits noted. Tuberculosis screening: No symptoms or risk factors identified. Fall Risk Fall in past 12 months (25 points). Secondary diagnosis (15 points) impaired mobility, No IV (0 pts). Ambulatory Aid- Crutches/Cane/Walker (15 pts). Gait- Impaired (20 pts.). Mental Status- Oriented to own ability (0 pts). Total Bell Fall Scale indicates High Risk Score (45 or more points). Fall prevention measures have been instituted. Side Rails Up X 2 Placed Close to Nursing Station Frequent Obs/Assessments Occuring As available patient and family educated on Fall Prevention Program and Strategies. Assessment: 15:30 General: Appears in no apparent distress. Pain: Complains of pain in right eye Pain rv currently is 10 out of 10 on a pain scale. Neuro: Level of Consciousness is awake, alert, obeys commands, Oriented to person, place, time, situation. Cardiovascular: Patient's skin is warm and dry. Respiratory: Airway is patent. Derm: Skin with poor turgor. 18:48 Reassessment: Patient appears in no apparent distress at this time. No changes from rv previously documented assessment. Patient and/or family updated on plan of care and expected duration. Pain level reassessed. Patient is alert, oriented x 3, equal unlabored respirations, skin warm/dry/pink. UNABLE TO ACCESS VEIN FOR BLOOD TEST. KAREN AVENDANO OPTED TO WAIT FOR THE RADIOLOGY REPORTS BEFORE PROCEEDING TO BLOOD TEST. 19:34 Reassessment: Patient appears in no apparent distress at this time. Patient and/or rv family updated on plan of care and expected duration. Pain level reassessed. Patient is alert, oriented x 3, equal unlabored respirations, skin warm/dry/pink. 20:35 Reassessment: Patient appears in no apparent distress at this time. mg2 Vital Signs: 14:55 BP 138 / 57; jl7 15:00 BP 138 / 57; Pulse 74; Resp 17; Temp 97.4(TE); Pulse Ox 99% on R/A; Weight 60.33 kg; mh5 Height 5 ft. 3 in. (160.02 cm); Pain 10/10; 16:25 BP 147 / 66; Pulse 78; Resp 16; Temp 97.8(O); Pulse Ox 95% on R/A; mh5 17:20 BP 152 / 66; Pulse 81; Resp 18; Pulse Ox 98% on R/A; mh5 18:51 Pulse 79; Resp 16; Temp 97.7; Pulse Ox 98% on R/A; rv 19:34 BP 166 / 66; Pulse 80; Resp 18; Pulse Ox 100% on R/A; rv 20:35 BP 156 / 89; Pulse 81; Resp 18; Pulse Ox 100% on R/A; mg2 15:00 Body Mass Index 23.56 (60.33 kg, 160.02 cm) mh5 ED Course: 14:55 Arm band placed on right wrist. jl7 14:59 Patient arrived in ED. jl7 15:08 Triage completed. jl7 15:10 Claudio Montenegro PA is PHCP. [facility] 15:10 Nikita Bunch MD is Attending Physician. [facility] 15:17 Patient has correct armband on for positive identification. Placed in gown. Bed in low mh5 position. Call light in reach. Side rails up X2. Adult w/ patient. Warm blanket given. ekg monitor tech on. Pulse ox on. NIBP on. 15:29 Bc Posada, TIFFANY is Primary Nurse. rv 15:45 EKG done, by ED staff, reviewed by Claudio JONES. 5 15:50 CT Head Brain wo Cont In Process Unspecified. EDMS 15:59 XRAY Chest (1 view) In Process Unspecified. EDMS 16:31 Initial lab(s) drawn, by ED staff, sent to lab. Missed attempt(s): 20 gauge in right rv antecubital area. 17:57 MRI - Brain Wo Cont In Process Unspecified. EDMS 18:50 Missed attempt(s): 20 gauge in right forearm. upper arm. rv 19:08 Carotid Artery Bilateral US In Process Unspecified. EDMS 19:35 No provider procedures requiring assistance completed. rv 19:43 Tvein Granados MD is Referral Physician. la1 20:36 Patient did not have IV access during this emergency room visit. mg2 Administered Medications: 20:05 Not Given (Physician Discretion): fentaNYL (PF) 25 mcg IVP once; RASS on ADMIN: rv Combtv4, Very Agttd3, Agttd2, Rstlss1, AlertClm0, Drwsy-1, Lt Sdtn-2, Mod Sdtn-3, Dp Sdtn-4, UnArsble-5 20:06 Drug: fentaNYL (PF) 25 mcg Route: IM; Site: right gluteus; rv 20:35 Follow up: Response: No adverse reaction; RASS: Alert and Calm (0) mg2 Outcome: 19:44 Discharge ordered by . la1 20:36 Discharged to home via wheelchair, with family. mg2 20:36 Condition: stable 20:36 Discharge instructions given to patient, family, Instructed on discharge instructions, follow up and referral plans. Demonstrated understanding of instructions, follow-up care. 20:36 Patient left the ED. mg2 Signatures: Dispatcher [employer] EDMS Claudio Montenegro PA PA jmm Attema, Lee, SCAGLIOLA MECHANIC-C SCAGLIOLA MECHANIC-Cla1 Noemí Gleason 5 Brandt Barnes RN RN jl7 Tristan Hope RN RN mg2 Bc Posada RN RN rv
[2019-08-25] MEDS ORDERED: FENTANYL CITR 100 MCG/2 ML ONE (20:06)
[2019-08-25 20:48] VITALS: TEMP 97.7
[2019-08-25 20:50] VITALS: O2SAT 100
[2019-08-25 20:51] VITALS: BP 156/89
--- NOTE | 2019-08-25 21:29 | RAD REPORT ---
EXAM DESCRIPTION: - CP - 08/25/2019 7:08 pm CLINICAL HISTORY: right sided vision change COMPARISON: Thyroid Para Parotid Gland dated 05/12/2019 TECHNIQUE: Real-time sonographic evaluation of bilateral carotid and vertebral systems was performed . Joya scale and Doppler interrogation were performed with waveform tracing bilaterally. FINDINGS: Normal high resistance waveforms are noted in both external carotid arteries. The common c arotid arteries and internal carotid arteries show normal low resistance waveforms. Focal calcified plaquing changes are present at the origin of the right internal carotid artery. This does not cause a significant luminal narrowing. Minimal left-side plaquing changes. Peak systolic an d end diastolic velocity values and the ICA/CCA ratios are in the non-hemodynamically significant ran ge. Antegrade flow seen in both vertebral arteries. Velocity values and ratios were recorded and are retained in the patient's imaging records. IMPRESSION: Calcified plaquing changes are present bilaterally. No significant luminal narrowing. No evidence of a hemodynamically significant stenosis.
--- NOTE | 2019-08-26 13:46 | EKG ---
Test Date: 2019-08-25 Test Time: 15:41:38 Battery Assembler Plastic: CLAUDIA MEASUREMENT RESULTS: Intervals: Rate: 76 MN: 170 QRSD: 88 QT: 420 QTc: 472 [place]: P: 76 MN: 170 QRS: 82 T: 23 INTERPRETIVE STATEMENTS: Normal sinus rhythm Normal ECG Compared to ECG 08/09/2018 16:00:17 Myocardial infarct finding no longer present Electronically Signed On 08-26-19 13:45:10 HOUSEKEEPING/LAUNDRY by Samy Bertrand
== END 2019-08-25 20:36 | disposition home or self-care (01) ==
LOC: ER 14:48
DX: M54.32 Sciatica, left side (principal); E11.22 Type 2 diabetes mellitus with diabetic chronic kidney disease; I12.0 Hypertensive chronic kidney disease with stage 5 chronic kidney disease or end stage renal disease; N18.6 End stage renal disease; E03.9 Hypothyroidism, unspecified; Z99.2 Dependence on renal dialysis; Z79.4 Long term (current) use of insulin
CPT/HCPCS: 93005; 70450; 71045; 93880; 70551; 96372; 99284; J3010

== ENCOUNTER 2020-04-29 13:02 | Inpatient (IN) | payer OTHER ==
--- OUTSIDE RECORDS SUMMARY | 2020-04-29 13:04 | XMS REPORT | Clinical Summary ---
:1960 Author Organization [facility] Address [address] [place] [address] Care Team Providers Name Role Phone Unavailable Primary Care Provider Unavailable Allergies Not on File Medications Not on file Active Problems Not on file Encounters Date Type Specialty Care Team Description 08/11/2019 Documentation Transplant Lesia Syed 07/14/2019 Documentation Transplant Lesia Syed 07/14/2019 Telephone Transplant Lesia Syed Appointment ( Called patient's home # to schedule d ay one renal txp eval appt. No a nswer. Third attempt to reac h to schedule. Left detailed voicem ail message.) 06/30/2019 Telephone Transplant Lesia Syed Appointment ( Cld pt to schedule day one renal t xp eval appt. Pt's number is no longer in service. No way to leave voicemail messa ge.) 06/10/2019 Telephone Transplant Lesia Syed Appointment ( Called patient's home # to schedule d ay one renal txp eval appt. No a nswer. Left detailed voicem ail message.) 06/10/2019 Telephone Transplant Lesia Syed Appointment ( Called patient's son to schedule day one. Phone number appears to no l onger be in service. No way to leave voicemail message.) 06/10/2019 Telephone Transplant Lesia Syed Appointment ( Called patient to schedule day on e. Phone number appears to no l onger be in service. No way to leave voicemail message.) 06/09/2019 Abstract Transplant Lesia Syed after 04/29/2019 Social History Tobacco Use Types Packs/Day Years Used Date Never Smoker Sex Assigned at Date Recorded Not on file Last Filed Vital Signs Vital Sign Reading Time Taken Comments Blood Pressure - - Pulse - - Temperature - - Respiratory Rate - - Oxygen Saturation - - Inhaled Oxygen Concentration - - Weight 59.9 kg (132 lb) 06/09/2019 7:18 AM SALVAGE CLERK Height 160 cm (5' 3") 06/09/2019 7:18 AM SALVAGE CLERK Body Mass Index 23.38 06/09/2019 7:18 AM SALVAGE CLERK Plan of Treatment Not on file Results Not on fileafter 04/29/2019 Insurance Payer Benefit Plan / Subscriber ID Effective Dates Phone Addre ss Type Group [employer] [id number] 2019-Prese MEDICARE MCD CARE nt
--- OUTSIDE RECORDS SUMMARY | 2020-04-29 13:05 | XMS REPORT ---
:1960 Author Organization [facility] Address [address] [facility] [address] [place] [address] Care Team Providers Name Role Phone Tre Syed Unavailable [phone] PROBLEMS No Information ALLERGIES No Known Allergies ENCOUNTERS from 1960 to 2020-03-21 Encounter Location Date Provider Diagnosis [facility] [address] [facility] [address], [place] [address] IMMUNIZATIONS No Information SOCIAL HISTORY Sex Assigned At : Social History Observation Description Sex Assigned At Unknown Alcohol Screen Question Answer Notes Did you have a drink containing alcohol in the past year? No Points 0 Interpretation Negative REASON FOR REFERRAL No Information VITAL SIGNS No information MEDICATIONS Medication SIG (Take, Route, Frequency, Start Date End Date Status Duration) Lidocaine-Prilocaine 2.5-2.5 % APLIQUE DIXIE (1) HORA ANTES Active DEL DIALISIS GREGORIA VECES A LA SEMANA. External for 30 Lisinopril 20 MG TOME DIXIE (1) TABLETA(S) POR Active LA BOCA DIXIE VEZ AL TAMIKO. Oral for 30 Lantus SoloStar 100 UNIT/ML INYECTE 20 UNIDADES DEBAJO Active DE LA PIEL CADA NOCHE. Subcutaneous for 30 Atorvastatin Calcium 40 MG TOME DIXIE (1) TABLETA(S) POR Active LA BOCA DIXIE VEZ AL TAMIKO. Oral for 30 Levothyroxine Sodium 25 MCG TOME DIXIE (1) TABLETA(S) POR Active LA BOCA DIXIE VEZ AL TAMIKO. Oral for 30 Amlodipine Besylate 10 MG TOME DIXIE (1) TABLETA(S) POR Active LA BOCA DIXIE VEZ AL TAMIKO. Oral for 30 Humulin R 100 UNIT/ML INJECT TWELVE (12) UNITS Active UNDER THE SKIN WITH MEALS DIRECTED AND USE SLIDING SCALE UP TO MAX DAILY DOSE OF 40 UNITS. Injection for 30 Clopidogrel Bisulfate 75 MG TOME DIXIE (1) TABLETA(S) POR Active LA BOCA DIXIE VEZ AL TAMIKO. Oral for 30 PROCEDURES No Information RESULTS No Results REASON FOR VISIT FYI MRI LUMBAR MEDICAL (GENERAL) HISTORY Type Description Date Medical History dialysis 2 times a week Medical History right below the knee amputee Medical History DM-NIDDM Medical History HTN-hypertension Medical History HLD Medical History history stroke Medical History Hypothyroidism Medical History vitamin D deficiency Medical History CAD Medical History End stage renal disease Surgical History Placement of right IJ Tesio catheter, in terpretation 05/27/18 of intraoperative fluoroscopy Surgical History right leg amputation Hospitalization History Elevated BUN and creatinine, fluid m anagement. 05/2018 Goals Section No Information Health Concerns No Information MEDICAL EQUIPMENT No Information MENTAL STATUS No Information FUNCTIONAL STATUS No Information ASSESSMENTS No Information PLAN OF TREATMENT No Information Insurance Providers Payer Name Payer Payer Insured Patient Coverage Coverage Address Phone Name Relationship to Start Date End Date Insured Manny Harris O NANI [phone] LUIS CORONADO self [facility] [id number] [place] [id number]
--- OUTSIDE RECORDS SUMMARY | 2020-04-29 13:05 | XMS REPORT | Continuity of Care Document ---
:1960 Author Organization [facility] t Address [address] [place] [id number] Care Team Providers Name Role Phone Graham Wakefield Attending Clinician Kunal Attending Clinician Unavailable Rigoberto Khalil Attending Clinician Rigoberto Khalil Admitting Clinician Payers Payer Name Policy Type Policy Effective Date Expiration Date Sour ce Number [facility] [id number] 2019 ROSELINE Arciniega [id number] 019-Present Problems Condition Condition Condition Status Onset Resolution Last Treating Co mments Source Name Details Category Date Date Treatment Clinician Date N Diagnosis Active 2018-08-20 Mem [facility] - 16:53:00 l N 00:00: [place] 00 Active 07/13/2018 [facility] Cerebral Problem Active 2020-04-08 [facility] hemorrhage 00:38:46 l (disorder) Cerebral He rmann hemorrhage (disorder) Active Problem 04/08/2020 [facility] Diabetes Problem Active 2020-04-08 Mem [facility] mellitus 00:38:46 l (disorder) Diabetes He rmann mellitus (disorder) Active Problem 04/08/2020 [facility] Dizziness Problem Active 2020-04-08 Me moria (finding) 00:38:46 l Vladimir Dizziness (finding) Active Problem 04/08/2020 [facility] End stage Problem Active 2020-04-08 Me moria renal 00:38:46 l failure on End Karthik n dialysis stage (disorder) renal failure on dialysis (disorder) Active Problem 04/08/2020 [facility] Headache Problem Active 2020-04-08 Mem [facility] (finding) 00:38:46 l Headache Karthik n (finding) Active Problem 04/08/2020 [facility] Hypertensi Problem Active 2020-04-08 M emoria ve 00:38:46 l disorder, Vladimir systemic Hypertensi arterial ve (disorder) disorder, systemic arterial (disorder) Active Problem 04/08/2020 [facility] Hyperlipid Problem Active 2020-04-08 M emoria emia 00:38:46 l (disorder) Karthik n Hyperlipid emia (disorder) Active Problem 04/08/2020 [facility] Hypothyroi Problem Active 2020-04-08 M emoria dism 00:38:46 l (disorder) Karthik n Hypothyroi dism (disorder) Active Problem 04/08/2020 [facility] Lumbar Problem Active 2020-04-08 Memor ia radiculopa 00:38:46 l thy Lumbar [place] (disorder) radiculopa thy (disorder) Active Problem 04/08/2020 [facility] Paresthesi Problem Active 2020-04-08 M emoria a 00:38:46 l (finding) Vladimir Paresthesi a (finding) Active Problem 04/08/2020 [facility] Peripheral Problem Active 2020-04-08 M emoria nerve 00:38:46 l disease Vladimir (disorder) Peripheral nerve disease (disorder) Active Problem 04/08/2020 [facility] Allergies, Adverse Reactions, Alerts Allergy Allergy Status Severity Reaction(s) Onset Inactive Treating Comm ents Source Name Type Date Date Clinician No Known DA Active [facility]ie 06-28 Clear s 00:00: [facility] 00 [facility] Social History Social Habit Start Date Stop Date Quantity Comments Source Sex Assigned At [facility] Social History 2018-07-20 2018-07-20 [facility] 21:00:00 21:00:00 Smoking Status Start Date Stop Date Source Social History [facility] Medications Ordered Filled Start Stop Current Ordering Indication Dosage Frequency Signature Comments Components Source Medication Medication Date Date Medication? Clinician (SIG) Name Name amLODIPine 2020-0 Yes 10 mg = 1 Me moria 10 mg oral 5-28 tab, PO, l tablet 20:33: Daily, 0 [place] 00 Refill(s) Aspirin 81 2020-0 Yes 81 mg = 1 Me moria MG Enteric 5-28 tab, PO, l Coated 20:33: Daily, # [place] Tablet 00 90 tab, 3 Refill(s) atorvastati 2020-0 Yes 40 mg = 1 M emoria n 40 mg 5-28 tab, PO, l oral tablet 20:33: Daily, 0 He rmann 00 Refill(s) carvedilol 2020-0 Yes 25 mg = 1 Me moria 25 mg oral 5-28 tab, PO, l tablet 20:33: BID, 0 [place] 00 Refill(s) clopidogrel 2020-0 Yes 75 mg = 1 M emoria 75 mg oral 5-28 tab, PO, l tablet 20:33: Daily, 0 [place] 00 Refill(s) cyclobenzap 2020-0 Yes 10 mg = 1 M emoria rine 10 mg 5-28 tab, PO, l oral tablet 20:33: TID, 0 Herm nilay Refill(s) Fluticasone 2020-0 Yes NASAL, [place] titus propionate 5-28 Daily, 0 l 0.05 20:33: Refill(s) Vladimir MG/ACTUAT 00 Metered Dose Nasal [place] gabapentin 2020-0 Yes 100 mg = 1 M emoria 100 MG Oral 5-28 cap, PO, l Capsule 20:33: Bedtime, 0 Herm nilay 00 Refill(s) Insulin 2020-0 Yes 10 unit, Memori a Glargine 5-28 SUB-Q, l 100 UNT/ML 20:33: Bedtime, [facility] ermann Injectable 00 10 mL, 0 Solution Refill(s) [Lantus] Novolin R 2020-0 Yes 12 unit, [place] titus 5-28 SUB-Q, l 20:33: ONCE, 0 [place] 00 Refill(s) Levothyroxi 2020-0 Yes 25 Memori a ne Sodium 5-28 microgram l 0.025 MG 20:33: = 1 tab, Jossie nn Oral Tablet 00 PO, Daily, [Synthroid] 0 Refill(s) Atorvastati Atorvastati Yes Tre TOME DIXIE [facility] Calcium n Calcium Syed (1) [facility] - TABLETA(S) Memoria POR LA l BOCA DIXIE Outpat[facility] VEZ AL ent TAMIKO. Clinics Clopidogrel Clopidogrel Yes Tre TOME DIXIE [facility] Bisulfate Bisulfate Syed (1) [facility] - TABLETA(S) [facility] POR LA l BOCA DIXIE Outpati VEZ AL ent TAMIKO. Clinics Tramadol Tramadol Yes Tre (Schedule [facility] HCl HCl Syed IV Drug) [facility] - TOME DIXIE Memoria (1) l TABLETA(S) Outpati POR LA ent BOCA CADA Clinics SEIS HORAS EVLVET NECESARIO PARA DOLOR. Acetaminoph Acetaminoph Yes Tre (Schedule [facility] en-Codeine en-Codeine Syed III Drug) [facility] - #3 #3 TOME DIXIE Memoria (1) l TABLETA(S) Outpati POR LA ent BOCA CADA Clinics SEIS HORAS VELVET NECESARIO PARA DOLOR. Levothyroxi Levothyroxi Yes Tre TOME DIXIE [facility] ne Sodium ne Sodium Syed (1) [facility] - TABLETA(S) Memoria POR LA l BOCA DIXIE Outpati VEZ AL ent TAMIKO. Clinics Lisinopril Lisinopril Yes Tre TOME DIXIE [facility] Syed (1) [facility] - TABLETA(S) Memoria POR LA l BOCA DIXIE Outpati VEZ AL ent TAMIKO. Clinics Lantus Lantus Yes Tre INYECTE [address] SoloStar SoloStar Syed UNIDADES [place] es - DEBAJO DE Memoria LA PIEL l CADA Outpati NOCHE. ent Clinics Carvedilol Carvedilol Yes Tre TOME DIXIE [facility] Syed (1) [facility] - TABLETA(S) Memoria POR LA l BOCA DIXIE Outpati VEZ AL ent TAMIKO. Clinics Humulin R Humulin R Yes Tre INJECT [facility] Syed TWELVE [facility] - (12) UNITS Memoria UNDER THE l SKIN WITH Outpati MEALS ent DIRECTED Clinics AND USE SLIDING SCALE UP TO MAX DAILY DOSE OF 40 UNITS. Furosemide Furosemide Yes Tre TOME DIXIE [facility] Syed (1) [facility] - TABLETA(S) Memoria POR LA l BOCA DIIXE Outpati VEZ AL ent TAMIKO. Clinics Lidocaine-P Lidocaine-P Yes Tre APLIQUE [facility] rilocaine rilocaine Syed DIXIE (1) Samantha kes - HORA ANTES Memoria DEL l DIALISIS Outpati GREGORIA VECES ent A LA Clinics SEMANA. Amlodipine Amlodipine Yes Tre TOME DIXIE [facility] Besylate Besylate Syed (1) [facility] - TABLETA(S) Memoria POR LA l BOCA DIXIE Outpati VEZ AL ent TAMIKO. Clinics Vital Signs Vital Name Observation Time Observation Value Comments Source Systolic (mm Hg) 2020-04-05 19:29:00 [place] rial [place] Diastolic (mm Hg) 2020-04-05 19:29:00 Mem orial [place] Heart Rate 2020-04-05 19:29:00 [facility] [place] Respitory Rate 2020-04-05 19:29:00 Memori al [place] Systolic (mm Hg) 2020-02-23 20:37:00 [place] rial [place] Diastolic (mm Hg) 2020-02-23 20:37:00 Mem orial [place] Heart Rate 2020-02-23 20:37:00 [facility] [place] Respitory Rate 2020-02-23 20:37:00 Memori al [place] Temperature Oral (F) 2020-02-23 20:37:00 98.3 F [facility] [place] Height 2020-02-23 20:37:00 157.48 cm [facility] [place] Weight 2020-02-23 20:37:00 [facility] [place] BMI Calculated 2020-02-23 20:37:00 Memori al [place] Systolic (mm Hg) 2020-01-05 20:43:00 [place] rial [place] Diastolic (mm Hg) 2020-01-05 20:43:00 Mem orial [place] Heart Rate 2020-01-05 20:43:00 [facility] [place] Respitory Rate 2020-01-05 20:43:00 Memori al [place] Temperature Oral (F) 2020-01-05 20:43:00 99.1 F [facility] [place] Height 2020-01-05 20:43:00 160.02 cm [facility] [place] Weight 2020-01-05 20:43:00 [facility] [place] BMI Calculated 2020-01-05 20:43:00 Memori al [place] Systolic (mm Hg) 2019-11-17 20:14:00 [place] Gilbert Diastolic (mm Hg) 2019-11-17 20:14:00 Zeyad Downeyann Heart Rate 2019-11-17 20:14:00 Jes [place] Respitory Rate 2019-11-17 20:14:00 Selene Aguirreann Height 2019-11-17 20:14:00 160.02 cm Jes [place] Weight 2019-11-17 20:14:00 Jes Gilbert BMI Calculated 2019-11-17 20:14:00 Selene rossi Vladimir Body height 2019-06-09 07:18:00 160 cm [facility] Body weight 2019-06-09 07:18:00 59.875 kg [facility] BMI 2019-06-09 07:18:00 23.38 kg/m2 [facility] Procedures Procedure Date / Time Performed Performing Clinician Sournader e BKA - Below knee [facility] n amputation Encounters Start End Encounter Admission Attending Care Care Encounter Source Date/Time Date/Time Type Type Clinicians Facility Department ID 2020-04-05 2020-04-05 Outpatient BUSHRA [facility] MHMISCHER [id number] 14:00:00 23:59:59 Shoaib Graham 2020-02-23 2020-02-23 Outpatient B[facility]RA [facility] SHIELAMISCHER [id number] 15:15:00 23:59:59 Shoaib Graham 2020-01-25 2020-01-25 Outpatient STLMLC [facility] [id number] [facility] 2020-01-05 2020-01-05 Outpatient BUSHRA [facility] [id number] 15:15:00 23:59:59 Shoaib 05 Graham 2019-12-29 2019-12-29 Outpatient BUSHRA [facility]fieldSCHOLGA MHMISCHER [id number] 15:15:00 15:15:00 Shoaib 02 Graham 2019-12-29 2019-12-29 Outpatient [facility] [id number] 15:15:00 15:15:00 Shoaib 04 Graham 2019-11-23 2019-11-23 Outpatient [facility] [id number] 13:00:00 23:59:59 Shoaib 03 [facility] 2019-11-17 2019-11-17 Outpatient SHIVAM Wakefield [facility] [id number] 15:00:00 23:59:59 Shoaib 01 [facility] 2019-10-06 2019-10-06 Outpatient SHIVAM Wakefield [facility] [id number] 13:30:00 13:30:00 Shoaib 00 [facility] 2019-08-11 2019-08-11 [facility] [id number] 14:00:00 14:00:00 [facility] 2018-07-20 2018-07-20 Outpatient Remi [facility] [id number] 15:00:00 15:00:00 Ariela Ta 00 Results Test Description Test Time Test Comments Results Result [facility] e Comments SURGICAL 2018-07-06 SPECIMENS 08:04:00 RUN DATE: 07/06/18 [facility] *LIVE* PAGE 1 RUN TIME: 0804 Specimen Inquiry RUN USER: INTERFACE PATIENT: KOBI CORONADO LOC: CYNDIE U #: [id number] AGE/SX: 58/F ROOM: RE06/30/18REG DR: Jonathan Reid MD : 56 BED: DIS: STATUS: DEP [facility] TLOC: SPEC #: [id number] RECD: 07/01/18 STATUS: AMILCAR MORALES #: [id number] JENIFFER: 07/01/[address] [facility] DR: Jonathan Reid MD ENTERED: 07/05/18 SP TYPE: SURG SPEC OTHR DR: No Primary or Family PhysicianORDERED: GM LEVEL 4 CODES: [id number] - COLON, NOS COPIES TO: No Primary or Family Physician Jonathan Reid MD [address] [place] [address] PROCEDURES: GM LEVEL 4 (Incomplete) TISSUES: 1. [...] CONTINUED ON NEXT PAGE RUN DATE: 07/06/18 [facility] *LIVE* PAGE 2 RUN TIME: 08 Specimen Inquiry RUN USER: INTERFACE SPEC #: [id number] PATIENT: ANIKA CORONADOA #[id number] (Continued) POST-OP DIAGNOSIS Colon polyp PRE-OP DIAGNOSIS Colon screen ------ Signed SIGNATURE ON FILE Frederick Scott DO 07/06/18 0804 END OF REPORT SCR MAMM 2018-04-27 - SCR MAMM BILATERAL BILATERAL DAVIS 15:42:55 DAVIS CAD CAD DIGITAL DIGITALBILATERAL DIGITAL SCREENING MAMMOGRAM 3D/2D WITH CAD: 04/21/2018CLINICAL: Asymptomatic. Digital breast tomosynthesis was performed in addition to routine CC and MLO views. Current mammographic images were evaluated by either a [employer] M-Vu or a [employer] Image[employer] CAD (computer aided detection system). No prior exams were available for comparison. There are scattered fibroglandular tissues in both breasts. Symmetric mild bilateral trabecula and skin thickening noted.No suspicious mass, architectural distortion, malignant type calcification, or lymph node abnormality detected. IMPRESSION: NEGATIVEThere is no mammographic evidence of malignancy. Resume annual screening mammography in one year. Marcia Norris M.D. el/:04/27/2018 15:42:55 Spinning Supervisor: Jackelin Rocha MM, [facility] Mammographyletter sent: BIRADS 1-2 Normal Mammogram BI-RADS: 1 Negative
[2020-04-29] MEDS ORDERED: ALBUTEROL 2.5 MG/3 ML NEB SOL ONE (14:10)
--- NOTE | 2020-04-29 14:11 | RAD REPORT ---
EXAM DESCRIPTION: RAD - Chest Single View - 04/29/2020 2:00 pm CLINICAL HISTORY: shortness of breath Chest pain. COMPARISON: Chest Single View dated 08/25/2019; Chest Single View dated 08/09/2018; Chest Single View d ated 05/27/2018; Chest Single View dated 05/25/2018 FINDINGS: Portable technique limits examination quality. Moderate to large infiltrate pattern is seen in the right lower lobe most likely representing pneumon ia. The heart is normal in size. No displaced fractures. IMPRESSION: Moderate to large right lower lobe pneumonia.
[2020-04-29 14:16] LABS: Blood Gas Oxyhemoglobin 90.3 % (94-97); Blood O2 Saturation 92.3 % (92-98.5)
[2020-04-29 14:22] LABS: Absolute Lymphocytes (CBC) 1.2 K/uL (0.7-4.9); Basophils % 0.7 % (0-1.3); Hematocrit 37.8 % (36.0-45.0); Lymphocytes % 16.9 % (15.3-44.8); RBC Red Blood Cell Count 4.28 M/uL (3.86-4.86)
[2020-04-29 14:23] LABS: ALT/SGPT 20 U/L (12-78); AST/SGOT 29 U/L (15-37); Albumin 3.9 g/dL (3.4-5.0); Alkaline Phosphatase 195 U/L (45-117); BUN Blood Urea Nitrogen 54 mg/dL (7-18); Bicarbonate 24 mmol/L (21-32); Bilirubin Direct < 0.1 mg/dL (0-0.2); Bilirubin Total 0.4 mg/dL (0.2-1.0); Glucose Level 331 mg/dL (74-106); Magnesium 2.7 mg/dL (1.8-2.4); NT PRO-BNP 17630 pg/mL (<125); Potassium 5.2 mmol/L (3.5-5.1); Protein, Total 8.5 g/dL (6.4-8.2); Protime INR 0.99; Sodium Level 135 mmol/L (136-145); Troponin (Emerg Dept Use Only) 0.03 ng/mL (0.0-0.045)
--- NOTE | 2020-04-29 14:49 | EDPHYS ---
Physician Documentation [facility] Name: Margarita Dominique Age: 59 yrs Sex: Female : 1960 Arrival Date: 04/29/2020 Time: 13:05 Bed 5 Private MD: AMBIKA Physician Ben Melissa HPI: 04/29 13:55 This 59 yrs old Female presents to ER via Wheelchair with complaints of jmm Breathing Difficulty. 13:55 The patient has shortness of breath at rest. Onset: The symptoms/episode began/occurred jmm 1.5 day(s) ago. Duration: The symptoms are continuous. The patient's shortness of breath is aggravated by nothing, is alleviated by nothing. Associated signs and symptoms: Pertinent negatives: fever. Patient had dialysis this past Thursday. . Historical: - Allergies: : No Known Allergies; iw - Home Meds: :52 amlodipine 10 mg tab 1 tab once daily [Active]; aspirin 81 mg Oral chew 1 tab once iw daily [Active]; atorvastatin 40 mg Oral tab 1 tab once daily [Active]; carvedilol 25 mg Oral tab 1 tab 2 times per day [Active]; clopidogrel 75 mg Oral tab 1 tab once daily [Active]; cyclobenzaprine 10 mg Oral tab 1 tab once per day [Active]; fluticasone 50 mcg/actuation nasal spsn 1 spray 2 times per day [Active]; furosemide 20 mg Oral tab 1 tab once daily [Active]; gabapentin 100 mg Oral cap 1 caps once nightly [Active]; hydralazine 25 mg Oral tab 1 tab 3 times per day [Active]; isosorbide dinitrate 30 mg Oral tab 1 tab once per day [Active]; Lantus 100 unit/mL Sub-Q soln 10 units nightly [Active]; losartan 100 mg Oral tab 1 tab once daily [Active]; Novolin R 12 units with meal Sub-Q [Active]; Synthroid 25 mcg Oral tab 1 tab once daily [Active]; vitamin D 2, 50,000 units once weekly [Active]; - PMHx: 13:52 CVA; Diabetes - NIDDM; Dialysis; HEART FAILURE; Hypertension; Hypothyroidism; vitamin d iw deficiency; - PSHx: 13:52 BKA RIGHT; iw - Immunization history:: Adult Immunizations up to date. - Social history:: Smoking status: unknown. ROS: 13:55 Constitutional: Negative for fever, chills, and weight loss, Cardiovascular: Negative [facility] for chest pain, palpitations, and edema. 13:55 Respiratory: Positive for shortness of breath, wheezing. 13:55 All other systems are negative. Exam: 13:55 Constitutional: This is a well developed, well nourished patient who is awake, alert, m and in no acute distress. Head/Face: atraumatic. Eyes: EOMI, no conjunctival erythema appreciated ENT: Moist Mucus Membranes Neck: Trachea midline, Supple Chest/axilla: Normal chest wall appearance and motion. Cardiovascular: Regular rate and rhythm. No edema appreciated 13:55 Abdomen/GI: Non distended, soft Back: Normal ROM Skin: General appearance color normal MS/ Extremity: Moves all extremities, no obvious deformities appreciated, no edema noted to the lower extremities Neuro: Awake and alert, normal gait Psych: Behavior is normal, Mood is normal, Patient is cooperative and pleasant 13:55 Respiratory: moderate respiratory distress is noted, Respirations: labored breathing, Breath sounds: + upper airway congestion. wheezing: that is severe. 13:57 ECG was reviewed by the Attending Physician. [facility] Vital Signs: 13:40 BP 157 / 80; Pulse 87; Resp 22 S; Temp 97.7; Pulse Ox 58% on R/A; iw 13:45 Pulse Ox 71% on 6 lpm NC; em 14:08 BP 171 / 93; Pulse 90; Resp 20 S; Pulse Ox 96% on BiPAP; em 15:30 BP 174 / 91; Pulse 89; Resp 18; Pulse Ox 100% on BiPAP; em 16:30 BP 167 / 75; Pulse 88; Resp 18; Pulse Ox 99% on BiPAP; em 17:30 BP 174 / 79; Pulse 89; Resp 21; Pulse Ox 96% on BiPAP; em 18:45 BP 168 / 76; Pulse 85; Resp 18; Pulse Ox 96% on BiPAP; em 19:15 BP 172 / 74; Pulse 86; Resp 16; Pulse Ox 96% on 30% BiPAP; rv 19:30 BP 172 / 79; Pulse 87; Resp 17; Pulse Ox 96% on 30% BiPAP; rv 20:00 BP 171 / 74; Pulse 85; Resp 16; Pulse Ox 96% on 30% BiPAP; rv 20:30 BP 168 / 71; Pulse 89; Resp 20; Pulse Ox 97% on 30% BiPAP; rv MDM: 13:31 Patient medically screened. [facility] 14:47 Data reviewed: vital signs, nurses notes. Counseling: I had a detailed discussion with chris the patient and/or guardian regarding: the historical points, exam findings, and any diagnostic results supporting the discharge/admit diagnosis, lab results, radiology results, the need for further work-up and treatment in the hospital. ED course: I discussed the patient with Dr. Kamara whom accepted admission. . 04/29 13:32 Order name: Basic Metabolic Panel; Complete Time: 14:33 [facility] 04/29 13:32 Order name: CBC with Diff; Complete Time: 14:33 [facility] 04/29 13:32 Order name: LFT's; Complete Time: 14:33 [facility] 04/29 13:32 Order name: Magnesium; Complete Time: 14:33 [facility] 04/29 13:32 Order name: NT PRO-BNP; Complete Time: 14:33 [facility] 04/29 13:32 Order name: PT-INR; Complete Time: 14:33 [facility] 04/29 13:32 Order name: Troponin (emerg Dept Use Only); Complete Time: 14:33 [facility] 04/29 13:42 Order name: ABG; Complete Time: 15:15 [facility] 04/29 13:54 Order name: Procalcitonin; Complete Time: 14:44 [facility] 04/29 13:54 Order name: Lactate; Complete Time: 14:33 [facility] 04/29 13:54 Order name: Blood Culture Adult (2) [facility] 04/29 15:07 Order name: CBC with Automated Diff [facility] 04/29 15:07 Order name: CBC with Automated Diff [facility] 04/29 15:07 Order name: Comprehensive Metabolic Panel [facility] 04/29 15:07 Order name: Comprehensive Metabolic Panel [facility] 04/29 15:07 Order name: Lactate [facility] 04/29 15:07 Order name: Lactate [facility] 04/29 15:07 Order name: Lipid Profile [facility] 04/29 15:07 Order name: Lipid Profile [facility] 04/29 15:07 Order name: Magnesium [facility] 04/29 15:07 Order name: Magnesium [facility] 04/29 15:07 Order name: NT PRO-BNP [facility] 04/29 15:07 Order name: NT PRO-BNP [facility] 04/29 15:07 Order name: Phosphorus [facility] 04/29 15:07 Order name: Phosphorus [facility] 04/29 15:07 Order name: Protime (+INR) [facility] 04/29 15:07 Order name: Protime (+INR) [facility] 04/29 13:32 Order name: XRAY Chest (1 view); Complete Time: 14:33 [facility] 04/29 13:32 Order name: EKG; Complete Time: 13:33 [facility] 04/29 13:32 Order name: Cardiac monitoring; Complete Time: 13:54 [facility] 04/29 13:32 Order name: EKG - Nurse/Tech; Complete Time: 13:54 [facility] 04/29 13:32 Order name: IV Saline Lock; Complete Time: 13:54 [facility] 04/29 13:32 Order name: Labs collected and sent; Complete Time: 13:54 [facility] 04/29 13:32 Order name: O2 Per Protocol; Complete Time: 13:54 [facility] 04/29 13:32 Order name: O2 Sat Monitoring; Complete Time: 13:54 [facility] 04/29 13:39 Order name: BIPAP [facility] 04/29 15:07 Order name: CONS Physician Consult [facility] 04/29 15:07 Order name: CONS Physician Consult [facility] 04/29 15:07 Order name: Heart Healthy [facility] 04/29 15:07 Order name: PTT, Activated Partial Thromb [facility] 04/29 15:07 Order name: PTT, Activated Partial Thromb [facility] 04/29 15:09 Order name: Procalcitonin [facility] 04/29 15:09 Order name: Procalcitonin [facility] 04/29 15:44 Order name: CT Chest Wo Con [facility] 04/29 16:27 Order name: SARS-COV-2 RT PCR; Complete Time: 16:29 [facility] 04/29 19:13 Order name: Glucose, Ancillary Testing; Complete Time: 19:17 EDMS EC:57 Rate is 91 beats/min. Rhythm is regular. QRS [place] is Normal. NM interval is normal. QRS jmm interval is normal. QT interval is normal. No Q waves. T waves are Flattened in lead aVL. No ST changes noted. Reviewed by me. Administered Medications: 14:00 Drug: Xopenex (3) 1.25 mg Route: Inhalation; em 14:55 Follow up: Response: No adverse reaction; Marked relief of symptoms em 15:07 Drug: Rocephin 1 grams Route: IV; Rate: calculated rate; Site: right wrist; em 15:30 Follow up: Response: No adverse reaction; IV Status: Completed infusion; IV Intake: 10mlem 18:06 Drug: Decadron - Dexamethasone 10 mg Route: IVP; Site: right wrist; em 19:27 Follow up: Response: No adverse reaction em Disposition: 04/30 09:04 Co-signature as Attending Physician, Ben Melissa MD I agree with the assessment and [facility] plan of care. Disposition: 04/29/20 14:48 Hospitalization ordered by Delfin Kamara for Inpatient Admission. Preliminary diagnosis are Pneumonia, Hypoxia. - Bed requested for Intensive Care Unit. - Status is Inpatient Admission. rv - Condition is Stable. - Problem is new. - Symptoms are unchanged. Signatures: Dispatcher [employer] [facility] Lauren Holt RN RN dw Anderson, Corey, MD MD cha Mickail, Joel, PA PA [facility] Alexx Weems, TIFFANY ALLEN Niru Barbour, TIFFANY ALLEN iw Bc Posada, RN RN rv Corrections: (The following items were deleted from the chart) 04/29 15:09 15:07 Procalcitonin ordered. [facility] EDMS 15:09 15:07 Procalcitonin ordered. [facility] EDMS 15:29 13:40 CORONAVIRUS+MR.LAB.BRZ ordered. [facility] EDWA 19:47 14:48 Hospitalization Ordered by Delfin Kamara MD for Inpatient Admission. Preliminary diagnosis is Pneumonia; Hypoxia. Bed requested for Telemetry/MedSurg (Inpatient). Status is Inpatient Admission. Condition is Stable. Problem is new. Symptoms are unchanged. [facility] 20:48 19:47 04/29/2020 14:48 Hospitalization Ordered by Delfin Kamara MD for Inpatient rv Admission. Preliminary diagnosis is Pneumonia; Hypoxia. Bed requested for Intensive Care Unit. Status is Inpatient Admission. Condition is Stable. Problem is new. Symptoms are unchanged. dw
--- NOTE | 2020-04-29 14:49 | ER ---
Nurse's Notes [facility] Name: Margarita Dominique Age: 59 yrs Sex: Female : 1960 Arrival Date: 04/29/2020 Time: 13:05 Bed 5 Private MD: Diagnosis: Pneumonia;Hypoxia Presentation: 04/29 13:40 Chief complaint: Patient's son or daughter states: pt has been SOB, weak, and cramping iw all over her body X 2 days, today the SOB got worse, pt was 58% on RA, placed on 6 L NC and paged RT for BiPap. Coronavirus screen: shortness of breath, Client presents with at least one sign or symptom that may indicate coronavirus-19. Ebola Screen: Patient negative for fever greater than or equal to 101.5 degrees Fahrenheit, and additional compatible Ebola Virus Disease symptoms Patient denies exposure to infectious person. Patient denies travel to an Ebola-affected area in the 21 days before illness onset. No symptoms or risks identified at this time. Initial Sepsis Screen: Does the patient meet any 2 criteria? No. Patient's initial sepsis screen is negative. Does the patient have a suspected source of infection? No. Patient's initial sepsis screen is negative. Risk Assessment: Do you want to hurt yourself or someone else? Patient reports no desire to harm self or others. Onset of symptoms was April 27, 2020. 13:40 Method Of Arrival: Wheelchair iw 13:40 Acuity: YEFRI 2 iw Triage Assessment: 20:46 General: Appears. Respiratory: Reports shortness of breath Onset: The symptoms/episode rv began/occurred gradually, the patient has moderate shortness of breath. Historical: - Allergies: 13:52 No Known Allergies; iw - Home Meds: 13:52 amlodipine 10 mg tab 1 tab once daily [Active]; aspirin 81 mg Oral chew 1 tab once iw daily [Active]; atorvastatin 40 mg Oral tab 1 tab once daily [Active]; carvedilol 25 mg Oral tab 1 tab 2 times per day [Active]; clopidogrel 75 mg Oral tab 1 tab once daily [Active]; cyclobenzaprine 10 mg Oral tab 1 tab once per day [Active]; fluticasone 50 mcg/actuation nasal spsn 1 spray 2 times per day [Active]; furosemide 20 mg Oral tab 1 tab once daily [Active]; gabapentin 100 mg Oral cap 1 caps once nightly [Active]; hydralazine 25 mg Oral tab 1 tab 3 times per day [Active]; isosorbide dinitrate 30 mg Oral tab 1 tab once per day [Active]; Lantus 100 unit/mL Sub-Q soln 10 units nightly [Active]; losartan 100 mg Oral tab 1 tab once daily [Active]; Novolin R 12 units with meal Sub-Q [Active]; Synthroid 25 mcg Oral tab 1 tab once daily [Active]; vitamin D 2, 50,000 units once weekly [Active]; - PMHx: 13:52 CVA; Diabetes - NIDDM; Dialysis; HEART FAILURE; Hypertension; Hypothyroidism; vitamin d iw deficiency; - PSHx: 13:52 BKA RIGHT; iw - Immunization history:: Adult Immunizations up to date. - Social history:: Smoking status: unknown. Screenin:26 Abuse screen: Denies threats or abuse. Nutritional screening: No deficits noted. em Tuberculosis screening: No symptoms or risk factors identified. Fall Risk None identified. Assessment: 13:40 General: Appears uncomfortable, ill, slender, Behavior is flat. Pain: Complains of pain em in chest Unable to use pain scale. Patient appears to be moaning, FLACC scale score is 7 out of 10. Neuro: Level of Consciousness is lethargic. Cardiovascular: Capillary refill < 3 seconds Patient's skin is warm and dry. Rhythm is sinus rhythm. Respiratory: Airway is patent Respiratory effort is even, labored, Respiratory pattern is tachypnea. Derm: Skin is intact, is healthy with good turgor, is thin, Skin is clammy, Skin is pale, Skin temperature is cool. Musculoskeletal: Range of motion: intact in all extremities. 14:40 Reassessment: Patient appears in no apparent distress at this time. Patient and/or em family updated on plan of care and expected duration. Pain level reassessed. Patient is alert, oriented x 3, equal unlabored respirations, skin warm/dry/pink. Patient states symptoms have improved. 16:25 Reassessment: pt covid pos. provider notified. em 17:51 Reassessment: Patient appears in no apparent distress at this time. Patient and/or em family updated on plan of care and expected duration. Pain level reassessed. Patient is alert, oriented x 3, equal unlabored respirations, skin warm/dry/pink. pending room assignment. 19:02 Reassessment: Patient appears in no apparent distress at this time. Patient and/or em family updated on plan of care and expected duration. Pain level reassessed. Patient is alert, oriented x 3, equal unlabored respirations, skin warm/dry/pink. 20:47 Respiratory: Breath sounds are coarse bilaterally. rv Vital Signs: 13:40 BP 157 / 80; Pulse 87; Resp 22 S; Temp 97.7; Pulse Ox 58% on R/A; iw 13:45 Pulse Ox 71% on 6 lpm NC; em 14:08 BP 171 / 93; Pulse 90; Resp 20 S; Pulse Ox 96% on BiPAP; em 15:30 BP 174 / 91; Pulse 89; Resp 18; Pulse Ox 100% on BiPAP; em 16:30 BP 167 / 75; Pulse 88; Resp 18; Pulse Ox 99% on BiPAP; em 17:30 BP 174 / 79; Pulse 89; Resp 21; Pulse Ox 96% on BiPAP; em 18:45 BP 168 / 76; Pulse 85; Resp 18; Pulse Ox 96% on BiPAP; em 19:15 BP 172 / 74; Pulse 86; Resp 16; Pulse Ox 96% on 30% BiPAP; rv 19:30 BP 172 / 79; Pulse 87; Resp 17; Pulse Ox 96% on 30% BiPAP; rv 20:00 BP 171 / 74; Pulse 85; Resp 16; Pulse Ox 96% on 30% BiPAP; rv 20:30 BP 168 / 71; Pulse 89; Resp 20; Pulse Ox 97% on 30% BiPAP; rv ED Course: 13:05 Patient arrived in ED. mr 13:25 Alexx Weems, RN is Primary Nurse. em 13:26 Patient has correct armband on for positive identification. Placed in gown. Bed in low em position. Call light in reach. Side rails up X2. school bus monitor on. Pulse ox on. NIBP on. 13:26 Arm band placed on. em 13:31 Claudio Montenegro PA is PHCP. chrism 13:31 Ben Melissa MD is Attending Physician. jmm 13:45 EKG done, by ED staff, reviewed by Ben Melissa MD. 3 13:50 Inserted saline lock: 22 gauge in right wrist, using aseptic technique. Blood collected.em 13:50 Initial lab(s) drawn, by me, sent to lab. First set of blood cultures drawn by me. em 13:51 Triage completed. iw 14:01 XRAY Chest (1 view) In Process Unspecified. EDMS 14:48 Delfin Kamara MD is Hospitalizing Provider. [facility] 17:07 Radiology exam delayed due to pt unable to come off of BiPAP at this time- spoke to RT. 3 20:47 No provider procedures requiring assistance completed. IV is patent, with fluids rv infusing freely, Patient admitted, IV remains in place. Administered Medications: 14:00 Drug: Xopenex (3) 1.25 mg Route: Inhalation; em 14:55 Follow up: Response: No adverse reaction; Marked relief of symptoms em 15:07 Drug: Rocephin 1 grams Route: IV; Rate: calculated rate; Site: right wrist; em 15:30 Follow up: Response: No adverse reaction; IV Status: Completed infusion; IV Intake: 10mlem 18:06 Drug: Decadron - Dexamethasone 10 mg Route: IVP; Site: right wrist; em 19:27 Follow up: Response: No adverse reaction em Intake: 15:30 IV: 10ml; Total: 10ml. em Outcome: 14:48 Decision to Hospitalize by Provider. [facility] 20:47 Admitted to ICU accompanied by tech, via stretcher, room 7, Other sbar Report called to rv LOUIE ALLEN 20:47 Condition: good 20:47 Instructed on the need for admit. 20:48 Patient left the ED. rv Signatures: Dispatcher [employer] EDMS Claudio Montenegro, KAREN PA [facility] JavedCynthia little mr WeemsAlexx, RN RN Niru Hines RN TIFFANY [facility] Anusha Mays 3 Bc Posada RN RN rv
[2020-04-29] MEDS ORDERED: ACETAMINOPHEN 500 MG TAB PO PRN (14:57)
[2020-04-29] MEDS ORDERED: ALBUTEROL 2.5 MG/3 ML NEB SOL NEB PRN (14:57)
[2020-04-29] MEDS ORDERED: ONDANSETRON 4 MG/2 ML VIAL IV PRN (14:57)
[2020-04-29] MEDS ORDERED: Levofloxacin500mg IV 500 MG/100 ML BAG IV SCH (15:00)
[2020-04-29] MEDS ORDERED: NA CHLORIDE 0.9% 1,000 ML IV SCH (15:00)
[2020-04-29] MEDS ORDERED: CEFTRIAXONE/SWI 1gm 1 GM/10 ML SYR ONE (15:15)
[2020-04-29] MEDS: PIPER/TAZO/NS 3.375gm 3.375 GM/100 ML BAG IV SCH (16:00)
[2020-04-29] MEDS: INSULIN -REGULAR HUMAN 50 UNIT/0.5 ML ML SQ SCH ×2 (16:30→21:00)
[2020-04-29] MEDS ORDERED: PIPER/TAZO/NS 3.375gm 3.375 GM/100 ML BAG IVPB SCH (18:00)
[2020-04-29] MEDS ORDERED: dexAMETHasone 4 MG/ML VIAL ONE (18:16)
[2020-04-29] MEDS ORDERED: IPRATROPIUM BROM 0.5MG/2.5ML NEB SCH (20:00)
[2020-04-29] MEDS ORDERED: HYDROCORTISONE SUC 100 MG INJ IV SCH (21:00)
[2020-04-29] MEDS ORDERED: WATER FOR INJ,STERILE 10 ML ONE (21:55)
[2020-04-29 22:28] VITALS: BMI 21.9
[2020-04-29] MEDS ORDERED: HYDRALAZINE HCL 20 MG/ML VIAL IV ONE (22:33)
[2020-04-29] MEDS ORDERED: AMLODIPINE 5 MG TAB PO ONE (22:33)
[2020-04-29] MEDS ORDERED: HYDRALAZINE HCL 20 MG/ML VIAL ONE (22:55)
[2020-04-30] MEDS: PIPER/TAZO/NS 3.375gm 3.375 GM/100 ML BAG IV SCH ×2 (01:55→10:29)
[2020-04-30] MEDS ORDERED: PIPER/TAZO/NS 3.375gm 3.375 GM/100 ML BAG ONE (02:04)
[2020-04-30 05:47] LABS: Absolute Lymphocytes (CBC) 0.6 K/uL (0.7-4.9); Basophils % 0.3 % (0-1.3); Hematocrit 35.4 % (36.0-45.0); Lymphocytes % 13.2 % (15.3-44.8); MPV 10.7 fL (7.6-11.3); RBC Red Blood Cell Count 4.05 M/uL (3.86-4.86)
[2020-04-30 06:07] LABS: Protime INR 0.98
[2020-04-30 06:12] LABS: Albumin 3.2 g/dL (3.4-5.0); Bilirubin Total 0.3 mg/dL (0.2-1.0); Magnesium 2.6 mg/dL (1.8-2.4); Phosphorus 5.4 mg/dL (2.5-4.9); Potassium 5.3 mmol/L (3.5-5.1); Protein, Total 7.2 g/dL (6.4-8.2)
--- NOTE | 2020-04-30 06:20 | P.HP ---
Certification for Inpatient Patient admitted to: Inpatient With expected LOS: >2 Midnights Patient will require the following post-hospital care: None Practitioner: I am a practitioner with admitting privileges, knowledge of patient current condition, hospital course, and medical plan of care. Services: Services provided to patient in accordance with Admission requirements found in Title 42 Section 412.3 of the Code of Federal Regulations Patient History Date of Service: 04/29/20 Reason for admission: Right lower lobe pneumonia History of Present Illness: patient is a 59-year-old female who came the hospital with a right lower lobe pneumonia. Patient has been short of breath for the last few days. The family states that the patient has been cramping and has had decreased appetite and generalized weakness. They checked her room air oxygen level which came back in the 60% range. He brought her to the emergency room for further evaluation. In the ER patient is a 2 sats were 68%. Patient was placed on 6 L O2 but was still tachypneic and oxygen level was not improving. Patient was then placed on BiPAP. When came to see the patient she was on BiPAP. Son was at bedside but he was mainly Upper Sorbian speaking too. Spoke to the PA, and plan was to also get a CT with PE protocol. However, they wanted to get the patient weaned off of BiP AP 1st. Concern for pulmonary embolism as well. Patient will need hemodialysis and will consult Nephrology. Allergies No Known Allergies Allergy (Unverified 05/25/18 16:13) Home Medications: Amlodipine [Norvasc*] 10 mg PO DAILY 05/26/18 Aspirin [Aspirin EC 81 MG] 81 mg PO DAILY 05/26/18 Atorvastatin Calcium [Lipitor*] 40 mg PO BEDTIME 05/26/18 Clopidogrel Bisulfate [Clopidogrel] 75 mg PO DAILY 05/26/18 Cyclobenzaprine [Flexeril*] 10 mg PO DAILY 05/26/18 Ergocalciferol (Vitamin D2) [Vitamin D2] 50,000 units PO EVERY 7TH DAY 05/26/18 Fluticasone [Flonase 50MCG Nasal Seale*] 2 puff IH DAILY 05/26/18 Furosemide [Lasix*] 20 mg PO DAILY 05/26/18 Gabapentin [Neurontin*] 100 mg PO BEDTIME 05/26/18 Insulin -Regular Human [Novolin -R*] 23 units SQ ACHS 05/26/18 Insulin Glargine Human [Lantus*] 10 units SQ BEDTIME 05/26/18 Isosorbide Dinitrate 30 mg PO DAILY 05/26/18 Levothyroxine [Synthroid*] 25 mcg PO [id number] 05/26/18 Losartan Potassium 100 mg PO DAILY 05/26/18 carvediloL [Coreg*] 25 mg PO DAILY 05/26/18 Hydralazine [Apresoline*] 25 mg PO TID 04/29/20 Lisinopril [Zestril] 40 mg PO DAILY 04/30/20 - Past Medical/Surgical History Has patient received pneumonia vaccine in the past: Yes Diabetic: Yes -: HTN -: IDDM -: "thyroid issues" -: stroke X2 with weakness to L eye and poor L eye vision -: ESRD w/ dialysis -: CHF -: Vit D deficiency -: cardiac stent X1 -: cholecystectomy -: L Fistula -: R BKA - Family History Father Medical History: Diabetes Mother Medical History: Heart disease, Hypertension, Diabetes - Social History Smoking Status: Never smoker Alcohol use: No CD- Drugs: No Caffeine use: No Place of Residence: Home Review of Systems 10-point ROS is otherwise unremarkable Physical Examination - Vital Signs Temperature: 97.9 F Blood Pressure: 145/54 Pulse: 79 Respirations: 14 Pulse Ox (%): 100 - Physical Exam General: Alert, In no apparent distress, Oriented x2, Moderate distress HEENT: Atraumatic, PERRLA, Mucous membr. moist/pink, EOMI, Sclerae nonicteric Neck: Supple, 2+ carotid pulse no bruit, No LAD, Without JVD or thyroid abnormality Respiratory: Diminished, Rhonchi/gurgles (right lower lobe) Cardiovascular: Regular rate/rhythm, Normal S1 S2, Systolic murmur Gastrointestinal: Normal bowel sounds, Soft and benign, Non-distended, No tenderness Musculoskeletal: No clubbing, No swelling, No tenderness, Other ( right BKA) Integumentary: No rashes Neurological: Normal speech, Normal tone, Sensation intact, Cranial nerves 3-12 intact, Normal affect, Abnormal gait, Abnormal strength Lymphatics: No axilla or inguinal lymphadenopathy - Studies Laboratory Data (last 24 hrs) 04/29/20 13:50: PT 11.7, INR 0.99 04/29/20 13:50: WBC 7.3, Hgb 12.1, Hct 37.8, Plt Count 146 L 04/29/20 13:50: Sodium 135 L, Potassium 5.2 H, BUN 54 H, Creatinine 7.27 H*, Glucose 331 H, Magnesium 2.7 H D, Total Bilirubin 0.4, AST 29, ALT 20, Alkaline Phosphatase 195 H Assessment & Plan - Problems (Diagnosis) (1) Pneumonia due to COVID-19 virus Current Visit: Yes Status: Acute (2) Hypoxemia Current Visit: Yes Status: Acute (3) CVA (cerebral vascular accident) Onset Date: 05/26/18 Current Visit: No Status: Acute (4) Congestive heart failure Onset Date: 05/26/18 Current Visit: No Status: Acute (5) DM2 (diabetes mellitus, type 2) Onset Date: 05/26/18 Current Visit: No Status: Acute (6) ESRD (end stage renal disease) Current Visit: No Status: Acute (7) HTN (hypertension) Onset Date: 05/26/18 Current Visit: No Status: Acute - Plan Plan: 1. try to get CT of the chest with PE protocol and then patient will need to be hemodialyzed afterwards; trying to get patient stabilized on BiPAP 1st. 2. Continue with IV steroids 3. continue with IV antibiotic therapy 4. DVT prophylaxis 5. O2 per protocol; High-flow oxygen/BiPAP 6. Check labs including ferritin, CRP, D-dimer, lactic acid, LDH, procalcitonin 7. Discussed with family regarding code status 8. pulmonary and nephrology consultation 9. GI prophylaxis Discharge Plan: Home Plan to discharge in: Greater than 2 days - Advance Directives Does patient have a Living Will: No Does patient have a Durable POA for Healthcare: No - Code Status/Comfort Care Code Status Assessed: Yes Code Status: Full Code Critical Care: Yes Time Spent Managing PTS Care (In Minutes): 45
[2020-04-30 06:54] LABS: Ferritin 1303.8 ng/mL (8-388)
[2020-04-30 06:57] LABS: C-Reactive Protein < 2.90 mg/L (<3.00)
--- NOTE | 2020-04-30 07:24 | EKG ---
Test Date: 2020-04-29 Test Time: 13:44:08 White Mixing Operator: BOGDAN MEASUREMENT RESULTS: Intervals: Rate: 91 IL: 176 QRSD: 100 QT: 394 QTc: 484 Altha: P: 69 IL: 176 QRS: 70 T: 70 INTERPRETIVE STATEMENTS: Normal sinus rhythm Possible Left atrial enlargement Anterior infarct, age undetermined Abnormal ECG Compared to ECG 08/25/2019 15:41:38 Myocardial infarct finding now present Electronically Signed On 04-30-20 07:23:22 BIOMEDICAL ELECTRONICS TECHNICIAN by Bishop Sheehan
[2020-04-30] MEDS ORDERED: D50W 25 GM/50 ML SYRINGE/VIAL IV PRN (08:04)
[2020-04-30] MEDS ORDERED: GLUCAGON 1 MG/VIAL IM PRN (08:04)
[2020-04-30] MEDS: INSULIN -REGULAR HUMAN 50 UNIT/0.5 ML ML SQ SCH ×4 (08:15→20:00)
[2020-04-30] MEDS: HYDRALAZINE HCL 25 MG TABLET PO SCH ×3 (08:37→20:00)
[2020-04-30] MEDS: ASPIRIN EC 81 MG TAB PO SCH (08:37)
[2020-04-30] MEDS: AMLODIPINE 10 MG TAB PO SCH (08:37)
[2020-04-30] MEDS: FUROSEMIDE 20 MG TABLET PO SCH (08:38)
[2020-04-30] MEDS: HEPARIN 5000 UNIT/ML 1 ML VIAL SQ SCH ×2 (08:39→20:00)
[2020-04-30] MEDS ORDERED: ENOXAPARIN 40 MG/0.4 ML SQ SCH (09:00)
[2020-04-30] MEDS ORDERED: DRISDOL (VITAMIN D=ERGOCALCIFEROL) 50000 UNIT CAP PO SCH (09:00)
[2020-04-30] MEDS ORDERED: HOME MED 1 EA UNK (Isosorbide Dinitrate [Isosorbide Dinitrate] 30 MG) PO SCH (09:00)
[2020-04-30] MEDS: CLOPIDOGREL 75 MG TABLET PO SCH (10:33)
[2020-04-30] MEDS: FLUTICASONE 50MCG NASAL SPRAY NAS SCH (10:34)
--- NOTE | 2020-04-30 11:49 | RAD REPORT ---
EXAM DESCRIPTION: CT - Chest For Pe Angio - 04/30/2020 11:18 am CLINICAL HISTORY: Shortness of breath COMPARISON: April 29, 2020 x-ray TECHNIQUE: Dynamically enhanced axial 3 mm thick images of the chest were obtained during administra tion of <100> mL Isovue 370 IV contrast. Coronal and oblique reconstruction images were generated and reviewed. Exam utilizes a protocol for optimal evaluation of pulmonary arterial tree. Maximum intensity projections 3D imaging was utilized All CT scans are performed using dose optimization technique as appropriate and may include automated exposure control or mA/KV adjustment according to patient size. FINDINGS: A pulmonary embolus is not seen. A thoracic aortic aneurysm is not noted. Small bilateral pleural effusions. A pericardial effusion is not seen. 3 centimeter right middle lobe opacity. Mild additional bilateral pulmonary opacities IMPRESSION: Negative for a pulmonary embolism. 3 centimeter right middle lobe opacity may represent pneumonia. Mild additional bilateral pulmonary opacities may represent mild pulmonary edema
--- NOTE | 2020-04-30 12:14 | P.PN ---
Subjective Date of Service: 04/30/20 Chief Complaint: Right lower lobe pneumonia Subjective: Other (Patient reports improvement. Currently on nasal cannula.) Physical Examination - Vital Signs Temperature: 97.8 F Blood Pressure: 152/68 Pulse: 91 Respirations: 17 Pulse Ox (%): 100 - Physical Exam General: Alert, In no apparent distress, Other (No significant shortness of breath. Patient on nasal cannula) Neck: Supple Respiratory: Other (Patient appears stable.) Cardiovascular: Normal pulses Gastrointestinal: No guarding Neurological: Normal speech, Normal strength at 5/5 x4 extr, Normal tone, Normal affect - Studies Laboratory Data (last 24 hrs) 04/29/20 13:50: PT 11.7, INR 0.99 04/29/20 13:50: WBC 7.3, Hgb 12.1, Hct 37.8, Plt Count 146 L 04/29/20 13:50: Sodium 135 L, Potassium 5.2 H, BUN 54 H, Creatinine 7.27 H*, Glucose 331 H, Magnesium 2.7 H D, Total Bilirubin 0.4, AST 29, ALT 20, Alkaline Phosphatase 195 H Medications List Reviewed: Yes Assessment & Plan Discharge Plan: Home Plan to discharge in: 48 Hours Physician Review Additional Text: Impression: Dyspnea secondary to right middle lobe pneumonia complicated with bilateral COVID 19 infection with hypoxia, mild bilateral pleural effusions, and acute on chronic diastolic CHF/pulmonary edema End-stage renal disease on hemodialysis with pulmonary edema Diabetes mellitus type 2 insulin-dependent with hyperglycemia Hypertension Hypothyroidism Hyperlipidemia History CVA Diabetic neuropathy Plan: Dyspnea secondary to right middle lobe pneumonia complicated with bilateral COVID 19 infection with hypoxia and acute on chronic diastolic CHF/pulmonary edema: IV antibiotics adjusted. Patient now on Levaquin. CT scan shows no pulmonary embolism. Continue heparin for DVT prophylaxis. Will discuss case with pulmonology. No need for steroid treatment as CRP is unremarkable. Patient was positive for COVID. Will wean off oxygen. Continue diuresis. Patient to receive dialysis. Will continue to reassess. Will monitor closely. Monitor lab and CRP closely. Recheck chest x-ray tomorrow. Patient may require home oxygen at discharge. Will help arrange. Anticipate improvement over the next 24-48 hr. End-stage renal disease on hemodialysis with pulmonary edema: Continue IV Lasix. Continue fluid restriction. Patient received dialysis. Nephrology consulted to help with this. Diabetes mellitus type 2 insulin-dependent with hyperglycemia: Will start basal insulin. Continue Accu-Cheks and sliding scale. Will check A1c. Hypertension: Restart home medication. Will monitor and adjust appropriately. Hypothyroidism: Continue home medication Hyperlipidemia: Continue medication. History CVA: Continue home medication. Patient on DVT prophylaxis. Diabetic neuropathy: Continue medication. Time Spent Managing Pts Care (In Minutes): 55
[2020-04-30] MEDS ORDERED: ATORVASTATIN 40 MG TAB PO SCH (21:00)
[2020-04-30] MEDS ORDERED: GABAPENTIN 100 MG CAP PO SCH (21:00)
[2020-04-30] MEDS ORDERED: INSULIN GLARGINE 100 UNITS/ML SQ SCH (21:00)
--- NOTE | 2020-04-30 22:40 | CON ---
Date of Consultation: 04/30/2020 Chief Complaint: Severe shortness of breath, end-stage renal disease, hyperkalemia. History Of Present Illness: The patient is undergoing workup for possible PE. The patient had CT sc an of the chest done and did not show PE. The patient has multiple medical problems. She is admitte d to ICU because of COVID infection. She came to the hospital and chest x-ray showed right lower lob e pneumonia. The patient was short of breath over the last few days. She was feeling progressively worse. She had decreased appetite, generalized weakness, and shortness of breath. When she came to the hospital, oxygen saturation was in 60s. She was admitted to ICU and is on BiPAP. Primarily, she was placed on 6 L O2 nasal cannula. Review of Systems: Unobtainable. The patient is short of breath. Past Medical History: Diabetes mellitus, thyroid disease, hypertension, end-stage renal disease on d ialysis, stroke, left eye poor vision, vision impairment, cardiac stent, coronary artery disease, cho lecystectomy, left upper extremity fistula, right BKA. Family History: Diabetes. Social History: Denies tobacco, alcohol, or illicit drugs. Physical Examination: General: In respiratory distress, confused. Eyes: Anicteric sclerae. EOMI. Respiratory: Rhonchi and diminished breath sounds at right lower lobe. Cardiovascular: S1, S2. Systolic murmur 2/6. GI: Abdomen is nondistended. No rebound. No guarding. Extremities: Right BKA. Skin: Warm and dry. No skin rashes. Neurological: Follows some commands. No tremor. No seizure. Laboratory Data: Hemoglobin 11.5, WBC 4.7, platelet count 143,000. Blood glucose 303. Sodium 136, potassium 5.3, chloride 101, CO2 23, BUN 67, creatinine 8.03, glucose 327, phosphorus 5.4, calcium 8. 2, magnesium 2.6. BNP 28,185. Impression And Plan: 1.End-stage renal disease, hyperkalemia. The patient is on dialysis. Procedure is done with IV con trast. Monitor potassium level. The patient will have 2 potassium dialysis. 2.Pneumonia, COVID infection, per primary team. 3.Anemia. Monitor hemoglobin level. Adjust PRASHANT as needed. 4.Renal osteodystrophy. Monitor phosphorus level. Adjust binders. EB/MODL Voice ID: [id number] Report ID: [id number]
[2020-05-01 05:24] LABS: Absolute Lymphocytes (CBC) 1.1 K/uL (0.7-4.9); Basophils % 0.3 % (0-1.3); Hematocrit 30.5 % (36.0-45.0); Lymphocytes % 12.5 % (15.3-44.8); MPV 10.9 fL (7.6-11.3); RBC Red Blood Cell Count 3.57 M/uL (3.86-4.86)
[2020-05-01 05:48] LABS: BUN Blood Urea Nitrogen 37 mg/dL (7-18); Bicarbonate 30 mmol/L (21-32); C-Reactive Protein < 2.90 mg/L (<3.00); Glucose Level 125 mg/dL (74-106); Magnesium 2.5 mg/dL (1.8-2.4); Potassium 4.1 mmol/L (3.5-5.1); Sodium Level 139 mmol/L (136-145)
[2020-05-01] MEDS ORDERED: LEVOTHYROXINE SOD 0.05 MG TABLET PO SCH (06:00)
[2020-05-01] MEDS: INSULIN -REGULAR HUMAN 50 UNIT/0.5 ML ML SQ SCH ×3 (07:30→17:09)
--- NOTE | 2020-05-01 08:31 | RAD REPORT ---
EXAM DESCRIPTION: RAD - Chest Single View - 05/01/2020 5:54 am CLINICAL HISTORY: Follow up pneumonia, CHF Chest pain. COMPARISON: Chest Single View dated 04/29/2020; Chest Single View dated 08/25/2019; Chest Single View d ated 08/09/2018; Chest Single View dated 05/27/2018 FINDINGS: Portable technique limits examination quality. Moderate improvement in the right lung base pneumonia is seen since comparative study. Small amount o f residual infiltrate is present. The heart is mildly prominent in size. No displaced fractures.
[2020-05-01] MEDS: FLUTICASONE 50MCG NASAL SPRAY NAS SCH (09:37)
[2020-05-01] MEDS: ASPIRIN EC 81 MG TAB PO SCH (09:37)
[2020-05-01] MEDS: CLOPIDOGREL 75 MG TABLET PO SCH (09:38)
[2020-05-01] MEDS: HEPARIN 5000 UNIT/ML 1 ML VIAL SQ SCH (09:38)
[2020-05-01] MEDS: HYDRALAZINE HCL 25 MG TABLET PO SCH (09:38)
[2020-05-01] MEDS: AMLODIPINE 10 MG TAB PO SCH (09:38)
[2020-05-01] MEDS: FUROSEMIDE 20 MG TABLET PO SCH (09:39)
[2020-05-01 11:54] VITALS: O2SAT 94
--- NOTE | 2020-05-01 13:46 | P.DS ---
Admission Date: 04/29/20 Discharge Date: 05/01/20 Primary Care Provider: Nephrology-Dr. Ravi Disposition: ROUTINE DISCHARGE Discharge Condition: GOOD Reason for Admission: Right lower lobe pneumonia Consultations: Nephrology-Dr. Ravi Pulmonary-Dr. Francisco Procedures: CT Scan: FINDINGS: A pulmonary embolus is not seen. A thoracic aortic aneurysm is not noted. Small bilateral pleural effusions. A pericardial effusion is not seen. 3 centimeter right middle lobe opacity. Mild additional bilateral pulmonary opacities IMPRESSION: Negative for a pulmonary embolism. 3 centimeter right middle lobe opacity may represent pneumonia. Mild additional bilateral pulmonary opacities may represent mild pulmonary edema CXR: COMPARISON: Chest Single View dated 04/29/2020; Chest Single View dated 08/25/2019; Chest Single View dated 08/09/2018; Chest Single View dated 05/27/2018 FINDINGS: Portable technique limits examination quality. Moderate improvement in the right lung base pneumonia is seen since comparative study. Small amount of residual infiltrate is present. The heart is mildly prominent in size. No displaced fractures. Medical problem list: Dyspnea secondary to right middle lobe pneumonia complicated with bilateral COVID 19 infection with hypoxia, mild bilateral pleural effusions, and acute on chronic diastolic CHF/pulmonary edema End-stage renal disease on hemodialysis with pulmonary edema Diabetes mellitus type 2 insulin-dependent with hyperglycemia Hypertension Hypothyroidism Hyperlipidemia History CVA Diabetic neuropathy Brief History of Present Illness: 59-year-old female presented to the emergency room with increasing shortness of breath. Patient found to have acute respiratory failure related to pneumonia and COVID. Patient admitted for further evaluation and treatment. Hospital Course: Patient presented with dyspnea secondary to right middle lobe pneumonia complicated with bilateral COVID 19 infection with hypoxia. Patient also head component of acute on chronic diastolic CHF and pulmonary edema. Patient with end-stage renal disease on hemodialysis. The patient was treated in the course of her stay. Her condition improved. Patient was diuresed with medication and dialysis. Patient remains on Levaquin. Patient without the need for oxygen. CRP was unremarkable. No need for IV steroids. At discharge for her renal disease and CHF, patient will continue with a 1500 cc per day fluid restriction and low-salt diet. The patient should monitor her weight daily. If her weight increases by more than 5 lb she is to contact nephrology for further re commendation. At discharge she may continue with Lasix 20 mg daily. Patient will continue with hemodialysis as directed by nephrology. For her pneumonia, patient will continue with Levaquin 250 mg every 48 hr for 3 more doses. Patient was positive for COVID 19. This appears stable at this time. No need for steroid treatments due to CRP being normal. Patient will continue with CDC guidelines on COVID. Patient will remain in isolation for at least 10 days. Continue with hand washing, face mask use and social distancing. Recommend follow up with pulmonology in 1-2 weeks to follow up this hospitalization. Recommend follow up with nephrology as directed. Patient with end-stage renal disease on hemodialysis. Patient will continue with above recommendations. Future medications will need to be renally dose. Recommend no further use of nonsteroidal anti-inflammatories. Patient with diabetes mellitus type 2. Blood sugars were elevated during the course of her stay. Patient previously on insulin regular at home. This has been discontinued. Patient was started on basal insulin-Lantus for better control. Hemoglobin A1c obtained prior to discharge. At discharge she will cont inue with Lantus 10 units at bedtime. Recommend to monitor blood sugar at least twice daily. Recommend to maintain blood sugar less than 140 fasting and less than 200 after meals. Further adjustment in medication may be required. This can be further addressed by her PCP. Patient with hypothyroidism. This remained stable. At discharge she will continue with her medication levothyroxine 25 mcg daily. Patient with hypertension. Medications have been adjusted. Patient has good control of blood pressure only on Norvasc. Patient previously on Norvasc, losartan, carvedilol, hydralazine and lisinopril. Patient did not require all these medications. At discharge will recommend to discontinue losartan, lisinopril, carvedilol, and lisinopril. At discharge she will continue with Norvasc 10 mg daily. Recommend to maintain blood pressure less than 130/80. Further adjustment can be done by her PCP. If the blood pressure continues to rise then she is to contact nephrology for further recommendation. Patient with hyperlipidemia. At discharge she will continue with Lipitor 40 mg daily. Patient with history of CVA. This remained stable. At discharge will continue with aspirin 81 mg daily and Plavix 75 mg daily. Patient also takes gabapentin 100 mg at bedtime for diabetic neuropathy. She may continue with this medication. Vital Signs/Physical Exam: Temp Pulse Resp BP Pulse Ox 98.6 F 98 H 24 H 113/76 96 05/01/20 08:00 05/01/20 11:00 05/01/20 11:00 05/01/20 11:00 05/01/20 11:00 General: Alert, In no apparent distress, Oriented x3, Cooperative HEENT: Atraumatic Neck: Supple Respiratory: Clear to auscultation bilaterally, Normal air movement Cardiovascular: Normal pulses, Regular rate/rhythm Gastrointestinal: Normal bowel sounds, Soft and benign, Non-distended, No tender ness, No masses, No rebound, No guarding Musculoskeletal: No erythema, No tenderness, No warmth Integumentary: No tenderness/swelling, No erythema, No warmth, No cyanosis Neurological: Normal speech, Normal strength at 5/5 x4 extr, Normal tone, Normal affect Laboratory Data at Discharge: WBC 8.6 K/uL (4.3-10.9) D 05/01/20 04:43 Hgb 10.1 g/dL (12.0-15.0) L 05/01/20 04:43 Hct 30.5 % (36.0-45.0) L 05/01/20 04:43 Plt Count 134 K/uL (152-406) L 05/01/20 04:43 PT 11.6 SECONDS (9.5-12.5) 04/30/20 05:05 INR 0.98 04/30/20 05:05 APTT 25.9 SECONDS (24.3-36.9) 04/30/20 05:05 Sodium 139 mmol/L (136-145) 05/01/20 04:43 Potassium 4.1 mmol/L (3.5-5.1) 05/01/20 04:43 BUN 37 mg/dL (7-18) H D 05/01/20 04:43 Creatinine 5.54 mg/dL (0.55-1.3) H* D 05/01/20 04:43 Glucose 125 mg/dL (74-106) H 05/01/20 04:43 Phosphorus 5.4 mg/dL (2.5-4.9) H 04/30/20 05:05 Magnesium 2.5 mg/dL (1.8-2.4) H 05/01/20 04:43 Total Bilirubin 0.3 mg/dL (0.2-1.0) 04/30/20 05:05 AST 26 U/L (15-37) 04/30/20 05:05 ALT 15 U/L (12-78) 04/30/20 05:05 Alkaline Phosphatase 166 U/L (45-117) H 04/30/20 05:05 Triglycerides 67 mg/dL (<150) 04/30/20 05:05 Cholesterol 184 mg/dL (<200) 04/30/20 05:05 HDL Cholesterol 77 mg/dL (40-60) H 04/30/20 05:05 Cholesterol/HDL Ratio 2.39 04/30/20 05:05 Home Medications: Amlodipine [Norvasc*] 10 mg PO DAILY 05/26/18 Aspirin [Aspirin EC 81 MG] 81 mg PO DAILY 05/26/18 Atorvastatin Calcium [Lipitor*] 40 mg PO BEDTIME 05/26/18 Ergocalciferol (Vitamin D2) [Vitamin D2] 50,000 units PO EVERY 7TH DAY 05/26/18 Fluticasone [Flonase 50MCG Nasal [place]*] 2 puff IH DAILY 05/26/18 Furosemide [Lasix*] 20 mg PO DAILY 05/26/18 Gabapentin [Neurontin*] 100 mg PO BEDTIME 05/26/18 Levothyroxine [Synthroid*] 25 mcg PO [id number] 05/26/18 Clopidogrel Bisulfate [Plavix*] 75 mg PO DAILY #30 tablet 05/01/20 Insulin Glargine Human [Lantus*] 10 units SQ BEDTIME #1 vial 05/01/20 Levofloxacin [Levaquin] 250 mg PO SEECOM #3 tablet 05/01/20 New Medications: Insulin Glargine Human [Lantus*] 10 units SQ BEDTIME #1 vial Levofloxacin [Levaquin] 250 mg PO SEECOM #3 tablet Clopidogrel Bisulfate [Plavix*] 75 mg PO DAILY #30 tablet Patient Discharge Instructions: 1. Recommend follow up with PCP in 1 week to follow up this hospitalization. 2. Patient presented with dyspnea secondary to right middle lobe pneumonia complicated with bilateral COVID 19 infection with hypoxia. Patient also head component of acute on chronic diastolic CHF and pulmonary edema. Patient with end-stage renal disease on hemodialysis. The patient was treated in the course of her stay. Her condition improved. Patient was diuresed with medication and dialysis. Patient remains on Levaquin. Patient without the need for oxygen. CRP was unremarkable. No need for IV steroids. At discharge for her renal disease and CHF, patient will continue with a 1500 cc per day fluid restriction and low-salt diet. The patient should monitor her weight daily. If her weight increases by more than 5 lb she is to contact nephrology for further recommendation. At discharge she may continue with Lasix 20 mg daily. Patient will continue with hemodialysis as directed by nephrology. For her pneumonia, patient will continue with Levaquin 250 mg every 48 hr for 3 more doses. Patient was positive for COVID 19. This appears stable at this time. No need for steroid treatments due to CRP being normal. Patient will continue with CDC guidelines on COVID. Patient will remain in isolation for at least 10 days. Continue with hand washing, face mask use and social distancing. Recommend follow up with pulmonology in 1-2 weeks to follow up this hospitalization. Recommend follow up with nephrology as directed. 3. Patient with end-stage renal disease on hemodialysis. Patient will continue with above recommendations. Future medications will need to be renally dose. Recommend no further use of nonsteroidal anti-inflammatories. 4. Patient with diabetes mellitus type 2. Blood sugars were elevated during the course of her stay. Patient previously on insulin regular at home. This has been discontinued. Patient was started on basal insulin-Lantus for better control. Hemoglobin A1c obtained prior to discharge. At discharge she will continue with Lantus 10 units at bedtime. Recommend to monitor blood sugar at least twice daily. Recommend to maintain blood sugar less than 140 fasting and less than 200 after meals. Further adjustment in medication may be required. This can be further addressed by her PCP. 5. Patient with hypothyroidism. This remained stable. At discharge she will continue with her medication levothyroxine 25 mcg daily. 6. Patient with hypertension. Medications have been adjusted. Patient has good control of blood pressure only on Norvasc. Patient previously on Norvasc, losartan, carvedilol, hydralazine and lisinopril. Patient did not require all these medications. At discharge will recommend to discontinue losartan, lisinopril, carvedilol, and lisinopril. At discharge she will lidya nue with Norvasc 10 mg daily. Recommend to maintain blood pressure less than 130/80. Further adjustment can be done by her PCP. If the blood pressure continues to rise then she is to contact nephrology for further recommendation. 7. Patient with hyperlipidemia. At discharge she will continue with Lipitor 40 mg daily. 8. Patient with history of CVA. This remained stable. At discharge will continue with aspirin 81 mg daily and Plavix 75 mg daily. 9. Patient also takes gabapentin 100 mg at bedtime for diabetic neuropathy. She may continue with this medication. Diet: Renal Activity: Ad marlin Followup: NONE,NONE [Primary Care Provider] - Time spent managing pt's care (in minutes): 55
--- NOTE | 2020-05-01 14:28 | PN ---
Date of Progress Note: 05/01/2020 Subjective: The patient was admitted with end-stage renal disease, over volume, COVID pneumonia. Th e patient was dialyzed yesterday, managed to remove 2 L. The patient feeling better. Still has some shortness of breath. Physical Examination: Vital Signs: Blood pressure 125/60, pulse of 88. Chest: Crackles bilateral, more prominent right-sided. Heart: S1, S2. Systolic murmur. Abdomen: Soft, nontender. Extremities: Left below-knee amputation. Neurologic: Alert and oriented x3. No focal. Laboratory Data: Hemoglobin 10.1. Sodium 139, potassium 4.1, bicarb 30, BUN 37, creatinine 5.5, karoline cium 7.8, phosphorus 2.5. Current Medications: The patient on include; 1.Amlodipine. 2.Atorvastatin. 3.Hydralazine 25 t.i.d. 4.Amlodipine 10. 5.Gabapentin. 6.Lasix. 7.Zofran. 8.Levothyroxine. 9.Vitamin D. Assessment And Plan: 1.End-stage renal disease. We will continue the patient on dialysis. The patient is over volume. We will do extra treatment today with sequential. 2.Over volume, respiratory distress. We will do sequential of 2 hours. 3.Anemia of chronic kidney disease, stable. We will continue to monitor. 4.COVID pneumonia, stable. We will follow up with primary. The patient cleared from the renal standpoint for discharge planning after dialysis. KEITH Voice ID: [id number] Report ID: [id number]
[2020-05-01] MEDS ORDERED: Levofloxacin500mg IV 500 MG/100 ML BAG IV SCH (15:00)
[2020-05-01 17:53] VITALS: TEMP 98.4
[2020-05-01 18:40] VITALS: BP 157/69
== END 2020-05-01 18:45 | disposition home or self-care (01) | DRG 177 ==
LOC: ER 13:02 → ERHOLD 15:37 → 3RD-ICU 20:27
PROVIDERS: ADMIT Hospitalist; ATTEND Family Medicine
PROC: 5A09457 Assistance with Respiratory Ventilation, 24-96 Consecutive Hours, Continuous Positive Airway Pressure (ICD-10-PCS; 2020-04-29)
PROC: 5A1D70Z Performance of Urinary Filtration, Intermittent, Less than 6 Hours Per Day (ICD-10-PCS; principal; 2020-04-30)
DX: U07.1 COVID-19 (principal); N18.6 End stage renal disease; J12.89 Other viral pneumonia; I50.33 Acute on chronic diastolic (congestive) heart failure; J96.01 Acute respiratory failure with hypoxia; I13.2 Hypertensive heart and chronic kidney disease with heart failure and with stage 5 chronic kidney disease, or end stage renal disease; E11.22 Type 2 diabetes mellitus with diabetic chronic kidney disease; E11.65 Type 2 diabetes mellitus with hyperglycemia; E11.40 Type 2 diabetes mellitus with diabetic neuropathy, unspecified; I25.10 Atherosclerotic heart disease of native coronary artery without angina pectoris; E87.5 Hyperkalemia; N25.0 Renal osteodystrophy; E78.5 Hyperlipidemia, unspecified; D63.1 Anemia in chronic kidney disease; E03.9 Hypothyroidism, unspecified; Z79.82 Long term (current) use of aspirin; Z79.02 Long term (current) use of antithrombotics/antiplatelets; Z79.4 Long term (current) use of insulin; Z79.890 Hormone replacement therapy; Z79.899 Other long term (current) drug therapy; Z86.73 Personal history of transient ischemic attack (TIA), and cerebral infarction without residual deficits; Z89.511 Acquired absence of right leg below knee; Z95.5 Presence of coronary angioplasty implant and graft; Z90.49 Acquired absence of other specified parts of digestive tract; Z99.2 Dependence on renal dialysis
CPT/HCPCS: 36415; 71045; 71275; 80048; 80053; 80061; 80076; 82728; 82805; 82947; 83036; 83605; 83735; 83880; 84100; 84145; 84484; 85025; 85379; 85610; 85730; 86140; 87040; 90935; 93005; 94660; 94760; 96365; 96375; 99285; J0360; J0696; J1100; J1644; J1720; J1815; J2543; Q9967; U0003

== ENCOUNTER 2020-06-22 04:46 | Observation (INO) | payer OTHER ==
--- OUTSIDE RECORDS SUMMARY | 2020-06-22 04:48 | XMS REPORT | Clinical Summary ---
:1960 [address] [facility] Address [address] [place] [address] Care Team Providers Name Role Phone Unavailable Primary Care Provider Unavailable Allergies Not on File Medications Not on file Active Problems Not on file Encounters Date Type Specialty Care Team Description 08/11/2019 Documentation Transplant Lesia Syed 07/14/2019 Documentation Transplant SyedRomy avinaLesia 07/14/2019 Telephone Transplant Lesia Syed Appointment ( [...] No way to leave voicemail messa ge.) after 06/22/2019 Social History Tobacco Use Types Packs/Day Years Used Date Never Smoker Sex Assigned at Date Recorded Not on file Last Filed Vital Signs Not on file Plan of Treatment Not on file Results Not on fileafter 06/22/2019 Insurance Payer Benefit Plan / Subscriber ID Effective Dates Phone Addre ss Type Group [employer] [id number] 2019-Prese MEDICARE [facility] nt
--- OUTSIDE RECORDS SUMMARY | 2020-06-22 04:49 | XMS REPORT | Continuity of Care Document ---
:1960 Author Organization [facility] t Address [address] [place] [address] Care Team Providers Name Role Phone Graham Wakefield Attending Clinician Kunal Attending Clinician Unavailable Rigoberto Khalil Attending Clinician Rigoberto Khalil Admitting Clinician Payers Payer Name Policy Type Policy Effective Date Expiration Date Sour ce Number [employer]ICARE [id number] 2019 ROSELINE Arciniega [id number] er 019-Present Problems Condition Condition Condition Status Onset Resolution Last Treating Co mments Source Name Details Category Date Date Treatment Clinician Date N Diagnosis Active 2018-08-20 Mem oria - 16:53:00 l N 00:00: Vladimir 00 Active 07/13/2018 [facility] Cerebral Problem Active 2020-06-10 Mem oria hemorrhage 01:37:21 l (disorder) Cerebral He rmann hemorrhage (disorder) Active Problem 06/10/2020 [facility] Diabetes Problem Active 2020-06-10 Mem oria mellitus 01:37:21 l (disorder) Diabetes He rmann mellitus (disorder) Active Problem 06/10/2020 [facility] Dizziness Problem Active 2020-06-10 Me moria (finding) 01:37:21 l [place] Dizziness (finding) Active Problem 06/10/2020 [facility] End stage Problem Active 2020-06-10 Me moria renal 01:37:21 l failure on End Karthik n dialysis stage (disorder) renal failure on dialysis (disorder) Active Problem 06/10/2020 [facility] Headache Problem Active 2020-06-10 Mem oria (finding) 01:37:21 l Headache Karthik n (finding) Active Problem 06/10/2020 [facility] Hypertensi Problem Active 2020-06-10 M emoria ve 01:37:21 l disorder, [place] systemic Hypertensi arterial ve (disorder) disorder, systemic arterial (disorder) Active Problem 06/10/2020 [facility] Hyperlipid Problem Active 2020-06-10 M emoria emia 01:37:21 l (disorder) Karthik n Hyperlipid emia (disorder) Active Problem 06/10/2020 [facility] Hypothyroi Problem Active 2020-06-10 M emoria dism 01:37:21 l (disorder) Karthik n Hypothyroi dism (disorder) Active Problem 06/10/2020 [facility] Lumbar Problem Active 2020-06-10 Memor ia radiculopa 01:37:21 l thy Lumbar Vladimir (disorder) radiculopa thy (disorder) Active Problem 06/10/2020 [facility] Paresthesi Problem Active 2020-06-10 M emoria a 01:37:21 l (finding) [place] Paresthesi a (finding) Active Problem 06/10/2020 [facility] Peripheral Problem Active 2020-06-10 M emoria nerve 01:37:21 l disease Vladimir (disorder) Peripheral nerve disease (disorder) Active Problem 06/10/2020 [facility] Allergies, Adverse Reactions, Alerts Allergy Allergy Status Severity Reaction(s) Onset Inactive Treating Comm ents Source Name Type Date Date Clinician No Known DA Active [facility] All[facility]ie -07 Clear s 00:00: Rosales 00 [facility] Social History Social Habit Start Date Stop Date Quantity Comments Source Sex Assigned At [facility] Social History 2018-07-20 2018-07-20 [facility] ermann 21:00:00 21:00:00 Smoking Status Start Date Stop Date Source Social History [facility] Medications Ordered Filled Start Stop Current Ordering Indication Dosage Frequency Signature Comments Components Source Medication Medication Date Date Medication? Clinician (SIG) Name Name amLODIPine 2020-0 Yes 10 mg = 1 Me moria 10 mg oral 5-28 tab, PO, l tablet 20:33: Daily, 0 [place] 00 Refill(s) Aspirin 81 2020-0 Yes 81 mg = 1 Me moria MG Enteric 5-28 tab, PO, l Coated 20:33: Daily, # [place] Tablet 00 90 tab, 3 Refill(s) atorvastati [...] tab, PO, l tablet 20:33: Daily, 0 [place] 00 Refill(s) cyclobenzap 2020-0 Yes 10 mg = 1 M emoria rine 10 mg 5-28 tab, PO, l oral tablet 20:33: TID, 0 Herm nilay 00 Refill(s) Fluticasone 2020-0 Yes NASAL, [place] titus propionate 5-28 Daily, 0 l 0.05 20:33: Refill(s) [place] MG/ACTUAT 00 Metered Dose Nasal [place] gabapentin 2020-0 Yes 100 mg = 1 M emoria 100 MG Oral 5-28 cap, PO, l Capsule 20:33: Bedtime, 0 Herm nilay 00 Refill(s) Insulin 2020-0 Yes 10 unit, Memori a Glargine 5-28 SUB-Q, l 100 UNT/ML 20:33: [facility] Injectable 00 10 mL, 0 Solution Refill(s) [Lantus] Novolin R 2020-0 Yes 12 unit, [place] titus 5-28 SUB-Q, l 20:33: ONCE, 0 [place] 00 Refill(s) Levothyroxi 2020-0 Yes 25 Memori [...] Clinics SEIS HORAS VELVET NECESARIO PARA DOLOR. Acetaminoph Acetaminoph Yes Tre [...] Yes Tre INYECTE [address] [facility] UNIDADES Kat[place] es - DEBAJO DE [...] DIXIE Outpati VEZ AL ent TAMIKO. Clinics Lidocaine-P Lidocaine-P Yes Tre PONCE [facility] rilocaine rilocaine Syed DIXIE (1) Samantha kes - HORA ANTES Memoria DEL l DIALISIS Outpati GREGORIA VECES ent A LA Clinics SEMANA. Amlodipine Amlodipine Yes Tre MONTOYA DIXIE [facility] Besylate Besylate Syed (1) [facility] - TABLETA(S) Memoria POR LA l BOCA DIXIE Outpati VEZ AL ent TAMIKO. Clinics Vital Signs Vital Name Observation Time Observation Value Comments Source Systolic (mm Hg) 2020-06-07 15:31:00 [place] rial [place] Diastolic (mm Hg) 2020-06-07 15:31:00 Mem orial [place] Heart Rate 2020-06-07 15:31:00 [facility] [place] Respitory Rate 2020-06-07 15:31:00 Mem[facility] al [place] Height 2020-06-07 15:31:00 154.94 cm [facility] [place] Weight 2020-06-07 15:31:00 [facility] [place] BMI Calculated 2020-06-07 15:31:00 Mem[facility] al [place] Systolic (mm Hg) 2020-04-05 19:29:00 [place] rial [place] Diastolic (mm Hg) 2020-04-05 19:29:00 Mem orial [place] Heart Rate 2020-04-05 19:29:00 [facility] [place] Respitory Rate 2020-04-05 19:29:00 [facility] [place] Systolic (mm Hg) 2020-02-23 20:37:00 [place] rial [place] Diastolic (mm Hg) 2020-02-23 20:37:00 Mem orial [place] Heart Rate 2020-02-23 20:37:00 [facility] [place] Respitory Rate 2020-02-23 20:37:00 [facility] [place] Temperature Oral (F) 2020-02-23 20:37:00 98.3 F [facility] [place] Height 2020-02-23 20:37:00 157.48 cm [facility] [place] Weight 2020-02-23 20:37:00 [facility] [place] BMI Calculated 2020-02-23 20:37:00 [facility] al [place] Systolic (mm Hg) 2020-01-05 20:43:00 [place] rial [place] Diastolic (mm Hg) 2020-01-05 20:43:00 Mem orial [place] Heart Rate 2020-01-05 20:43:00 [facility] [place] Respitory Rate 2020-01-05 20:43:00 Memori al [place] Temperature Oral (F) 2020-01-05 20:43:00 99.1 F [facility] [place] Height 2020-01-05 20:43:00 160.02 cm [facility] [place] Weight 2020-01-05 20:43:00 [facility] [place] BMI Calculated 2020-01-05 20:43:00 Memori al [place] Systolic (mm Hg) 2019-11-17 20:14:00 [place] rial [place] Diastolic (mm Hg) 2019-11-17 20:14:00 Mem orial [place] Heart Rate 2019-11-17 20:14:00 [facility] [place] Respitory Rate 2019-11-17 20:14:00 [facility] [place] Height 2019-11-17 20:14:00 160.02 cm [facility] [place] Weight 2019-11-17 20:14:00 [facility] [place] BMI Calculated 2019-11-17 20:14:00 Mem[facility] al [place] Procedures Procedure Date / Time Performed Performing Clinician Negra e BKA - Below knee [facility] Karthik n amputation Encounters Start End Encounter Admission Attending Care Care Encounter Source Date/Time Date/Time Type Type Clinicians Facility Department ID 2020-06-07 2020-06-07 Outpatient SHIVAM Wakefield [id number] 09:15:00 23:59:59 Shoaib 09 Graham 2020-05-22 2020-05-22 Outpatient SHIVAM Wake[place] [id number] 14:45:00 14:45:00 Shoaib Graham 2020-04-05 2020-04-05 Outpatient SHIVAM WakefieldSCHOLGA [id number] 14:00:00 23:59:59 Shoaib 07 Graham 2020-02-23 2020-02-23 Outpatient SHIVAM WakefieldSCHOLGA [id number] 15:15:00 23:59:59 Shoaib Graham 2020-01-25 2020-01-25 Outpatient STLMLC STLMLC [id number] [facility] 2020-01-05 2020-01-05 Outpatient Ashu, MHMISCHER MHMISCHER [id number] 15:15:00 23:59:59 Shoaib 05 [facility] 2019-12-29 2019-12-29 Outpatient Ashu MHMISCHER MHMISCHER [id number] 15:15:00 15:15:00 Shoaib [facility] 2019-12-29 2019-12-29 Outpatient Ashu MHMISCHER MHMISCHER [id number] 15:15:00 15:15:00 Shoaib [facility] 2019-11-23 2019-11-23 Outpatient Ashu MHMISCHER MHMISCHER [id number] 13:00:00 23:59:59 Shoaib [facility] 2019-11-17 2019-11-17 Outpatient Ashu MHMISCHER MHMISCHER [id number] 15:00:00 23:59:59 Shoaib [facility] 2019-10-06 2019-10-06 Outpatient Ashu MHMISCHER MISCHER [id number] 13:30:00 13:30:00 Shoaib 00 [facility] 2019-08-11 2019-08-11 [facility] [id number] 14:00:00 14:00[facility]00 [facility] 2018-07-20 2018-07-20 Outpatient Remi [facility] [id number] [facility]:00:00 [facility] Results Test Description Test Time Test Comments Results Result Sour e Comments SURGICAL 2018-07-06 SPECIMENS 08:04:00 RUN DATE: 07/06/18 [facility] *LIVE* PAGE 1 RUN TIME: 0804 Specimen Inquiry RUN USER: INTERFACE PATIENT: KOBI CORONADO LOC: CYNDIE U #: [id number] AGE/SX: 58/F ROOM: RE06/30/18REG DR: Jonathan Reid MD : 56 BED: DIS: STATUS: DEP [facility] TLOC: SPEC #: [id number] RECD: 07/01/18 STATUS: AMILCAR RE #: [id number] JENIFFER: 07/01/[address] [facility] [address]: Jonathan Reid MD ENTERED: 07/05/18 SP TYPE: SURG SPEC OTHR DR: No Primary or Family PhysicianORDERED: GM LEVEL 4 CODES: [id number] - COLON, NOS COPIES TO: No Primary or Family Physician Jonathan Reid MD [address] [place] [address] PROCEDURES: GM LEVEL 4 (Incomplete) TISSUES: 1. [...] CONTINUED ON NEXT PAGE RUN DATE: 07/06/18 [facility] *LIVE* PAGE 2 RUN TIME: 803 Specimen Inquiry RUN USER: INTERFACE SPEC #: [id number] PATIENT: KOBI CORONADO #[id number] (Continued) POST-OP DIAGNOSIS Colon polyp PRE-OP DIAGNOSIS [...] mammographic images were evaluated by either a [employer] M-Vu or a [employer] ImageChecker CAD (computer aided detection system). No prior exams were available for comparison. There are scattered fibroglandular tissues in both breasts. Symmetric mild bilateral trabecula and skin thickening noted.No suspicious mass, architectural distortion, malignant type calcification, or lymph node abnormality detected. IMPRESSION: NEGATIVEThere is no mammographic evidence of malignancy. Resume annual screening mammography in one year. Marcia Norris M.D. el/:04/27/2018 15:42:55 Plc Engineer: Jackelin Rocha MM, [facility] Mammographyletter sent: BIRADS 1-2 Normal Mammogram BI-RADS: 1 Negative
[2020-06-22 05:30] LABS: Arterial Blood Carboxyhemoglob 1.1 % (0-1.5); Blood Gas Oxyhemoglobin 83.7 % (94-97); Blood O2 Saturation 85.7 % (92-98.5)
[2020-06-22 05:38] LABS: Absolute Lymphocytes (CBC) 2.2 K/uL (0.7-4.9); Basophils % 1.5 % (0-1.3); Hematocrit 32.8 % (36.0-45.0); Lymphocytes % 17.1 % (15.3-44.8); MPV 10.1 fL (7.6-11.3); RBC Red Blood Cell Count 3.73 M/uL (3.86-4.86)
[2020-06-22 05:45] LABS: Protime INR 0.9
[2020-06-22 06:11] LABS: AST/SGOT 12 U/L (15-37); Albumin 3.8 g/dL (3.4-5.0); Alkaline Phosphatase 167 U/L (45-117); BUN Blood Urea Nitrogen 79 mg/dL (7-18); Bicarbonate 24 mmol/L (21-32); Bilirubin Direct 0.1 mg/dL (0-0.2); Bilirubin Total 0.4 mg/dL (0.2-1.0); Glucose Level 335 mg/dL (74-106); Magnesium 3.1 mg/dL (1.8-2.4); NT PRO-BNP 19420 pg/mL (<125); Protein, Total 8.5 g/dL (6.4-8.2); Sodium Level 137 mmol/L (136-145); Troponin (Emerg Dept Use Only) 0.06 ng/mL (0.0-0.045)
[2020-06-22 06:13] LABS: ALT/SGPT < 6 U/L (12-78)
[2020-06-22 06:15] LABS: Potassium 5.9 mmol/L (3.5-5.1)
[2020-06-22 06:30] LABS: SARS-COV-2 RT PCR POSITIVE (NEGATIVE)
--- NOTE | 2020-06-22 06:58 | EDPHYS ---
Physician Documentation [facility] Name: Margarita Dominique Age: 60 yrs Sex: Female : 1960 Arrival Date: 06/22/2020 Time: 04:49 Bed 5 Private MD: ED Physician Jaime Lambert HPI: 06/22 05:29 This 60 yrs old Female presents to ER via Wheelchair with complaints of pkl Shortness Of Breath, Back Pain, Pain All Over. 05:29 The patient has shortness of breath at rest. Onset: The symptoms/episode began/occurred pkl just prior to arrival, 1 hour(s) ago. Associated signs and symptoms: Pertinent positives: upper back and left arm pain. The patient has been recently been admitted at [facility], was discharged last month, Diagnosed with pneumonia and positive Covid 19. Historical: - Allergies: 07:30 No Known Allergies; em - PMHx: 07:30 CVA; Diabetes - NIDDM; Dialysis; HEART FAILURE; Hypertension; Hypothyroidism; vitamin d em deficiency; - PSHx: 07:30 BKA RIGHT; em - Immunization history:: Adult Immunizations up to date. - Social history:: Smoking status: Patient denies any tobacco usage or history of. ROS: 05:29 Eyes: Negative for injury, pain, redness, and discharge, ENT: Negative for injury, pkl pain, and discharge, Neck: Negative for injury, pain, and swelling, Cardiovascular: Negative for chest pain, palpitations, and edema. 05:29 Respiratory: Positive for shortness of breath, at rest. 05:29 Abdomen/GI: Negative for abdominal pain, nausea, vomiting, and diarrhea. 05:29 Back: Positive for of the upper back. 05:29 : Negative for urinary symptoms. 05:29 MS/extremity: Positive for pain, of the left arm. 05:29 Skin: Negative for rash. 05:29 Neuro: Negative for altered mental status. Exam: 05:29 Head/Face: Normocephalic, atraumatic. Eyes: Pupils equal round and reactive to light, pkl extra-ocular motions intact. Lids and lashes normal. Conjunctiva and sclera are non-icteric and not injected. Cornea within normal limits. Periorbital areas with no swelling, redness, or edema. ENT: Nares patent. No nasal discharge, no septal abnormalities noted. Tympanic membranes are normal and external auditory canals are clear. Oropharynx with no redness, swelling, or masses, exudates, or evidence of obstruction, uvula midline. Mucous membranes moist. Neck: Trachea midline, no thyromegaly or masses palpated, and no cervical lymphadenopathy. Supple, full range of motion without nuchal rigidity, or vertebral point tenderness. No Meningismus. Chest/axilla: Normal chest wall appearance and motion. Nontender with no deformity. No lesions are appreciated. Cardiovascular: Regular rate and rhythm with a normal S1 and S2. No gallops, murmurs, or rubs. Normal PMI, no JVD. No pulse deficits. 05:29 Respiratory: moderate respiratory distress is noted, Respirations: labored breathing, that is moderate, Breath sounds: rales, that are moderate, are scattered. 05:29 Abdomen/GI: Bowel sounds: normal, in all quadrants, Palpation: abdomen is soft and non-tender, in all quadrants. 05:29 Back: pain, that is moderate, of the upper back. 05:29 : Exam negative for acute changes. 05:29 Musculoskeletal/extremity: Extremities: grossly normal except: noted in the left arm: pain. 05:29 Skin: Exam negative for rash. 05:29 Neuro: Orientation: appropriate for stated age, Mentation: is normal, Cranial nerves: grossly normal, Motor: moves all fours. Vital Signs: 05:02 BP 130 / 71; Pulse 99; Resp 40; Temp 98.7; Pulse Ox 69% on R/A; Weight 49.9 kg; Height ea 5 ft. (152.40 cm); 05:27 BP 166 / 79; Pulse 107; Resp 28; Pulse Ox 95% ; ea 08:15 BP 158 / 74; Pulse 99; Resp 18; Pulse Ox 100% on R/A; Pain 0/10; em 09:45 BP 163 / 66; Pulse 102; Resp 18; Pulse Ox 97% on R/A; em 11:09 BP 142 / 53; Pulse 99; Resp 22; Temp 98.7; Pulse Ox 98% on R/A; em 05:02 Body Mass Index 21.48 (49.90 kg, 152.40 cm) ea 05:02 Pt placed on 3L of O2 per nasal cannula ea MDM: 04:58 Patient medically screened. pkl 06:51 Data reviewed: vital signs, nurses notes, lab test result(s), EKG, radiologic studies, pkl plain films. ED course: Talked to Dr. Kamara, it. 06/22 05:08 Order name: Basic Metabolic Panel; Complete Time: 06:58 pkl 06/22 05:08 Order name: CBC with Diff; Complete Time: 05:45 pkl 06/22 05:08 Order name: LFT's; Complete Time: 06:58 pkl 06/22 05:08 Order name: Magnesium; Complete Time: 06:58 pkl 06/22 05:08 Order name: NT PRO-BNP; Complete Time: 06:58 pkl 06/22 05:08 Order name: PT-INR; Complete Time: 05:54 pkl 06/22 05:08 Order name: Troponin (emerg Dept Use Only); Complete Time: 06:58 pkl 06/22 05:08 Order name: ABG; Complete Time: 05:45 pkl 06/22 06:30 Order name: COVID-19/FLU A+B; Complete Time: 06:58 EDMS 06/22 06:42 Order name: Blood Culture Adult (2) rv 06/22 06:46 Order name: Chem 7; Complete Time: 19:08 rv 06/22 06:54 Order name: Lactate; Complete Time: 19:08 rv 06/22 05:08 Order name: XRAY Chest (1 view); Complete Time: 19:08 pkl 06/22 06:54 Order name: Procalcitonin; Complete Time: 19:08 rv 06/22 07:29 Order name: Procalcitonin; Complete Time: 19:08 EDMS 06/22 07:29 Order name: C-Reactive Protein; Complete Time: 19:08 EDMS 06/22 07:29 Order name: Basic Metabolic Panel; Complete Time: 19:08 EDMS 06/22 07:29 Order name: Ferritin; Complete Time: 19:08 EDMS 06/22 07:29 Order name: Folic Acid, (Folate); Complete Time: 19:08 EDMS 06/22 07:29 Order name: Iron; Complete Time: 19:08 EDMS 06/22 07:29 Order name: Lactate; Complete Time: 19:08 EDMS 06/22 07:29 Order name: NT PRO-BNP; Complete Time: 19:08 EDMS 06/22 07:29 Order name: Troponin I; Complete Time: 19:08 EDMS 06/22 07:29 Order name: Vitamin B12 Level; Complete Time: 19:08 EDMS 06/22 05:08 Order name: EKG; Complete Time: 05:09 pkl 06/22 05:08 Order name: Cardiac monitoring; Complete Time: 05:44 pkl 06/22 05:08 Order name: EKG - Nurse/Tech; Complete Time: 05:12 pkl 06/22 05:08 Order name: IV Saline Lock; Complete Time: 05:17 pkl 06/22 05:08 Order name: Labs collected and sent; Complete Time: 05:17 pkl 06/22 05:08 Order name: O2 Per Protocol; Complete Time: 05:17 pkl 06/22 05:08 Order name: O2 Sat Monitoring; Complete Time: 05:18 pkl 06/22 07:29 Order name: CONS Pharmacy Consult [facility]WI 06/22 07:29 Order name: CONS Physician Consult [facility] 06/22 07:29 Order name: Renal EDMS Administered Medications: 07:15 Drug: Calcium Gluconate 1 grams Route: IVPB; Infused Over: 60 mins; Site: right upper rv arm; 07:46 Follow up: Response: No adverse reaction; IV Status: Completed infusion; IV Intake: em 100ml 08:15 Follow up: Response: No adverse reaction; IV Status: Completed infusion ph 07:28 CANCELLED (Duplicate Order): Calcium Chloride 10% 10 ml IVP once rv 07:44 Drug: Sodium Bicarbonate 1 amp Route: IVP; Site: right upper arm; em 08:46 Follow up: Response: No adverse reaction ph 07:46 Drug: D50W 50 ml Route: IVP; Site: right upper arm; em 08:46 Follow up: Response: No adverse reaction ph 07:49 Drug: Insulin Regular Human 10 units {Co-Signature: em (Alexx Weems RN).} Route: IVP; sv Site: right upper arm; 08:45 Follow up: Response: No adverse reaction ph Disposition: 07:04 Critical Care:. pkl Disposition: 06/22/20 06:57 Hospitalization ordered by Delfin Kamara for Inpatient Admission. Preliminary diagnosis is Acute dyspnea. Chronic renal disease. Hyperkalemia. Volume overload. Positive Covid 19. Pneumonia. - Bed requested for Telemetry/MedSurg (Inpatient). - Status is Inpatient Admission. em - Condition is Stable. - Problem is new. - Symptoms are unchanged. Critical care time excluding procedures: 07:04 Critical care time: Bedside Care: 40 minutes. Total time: 40 minutes pkl Signatures: Dispatcher [employer] EDWI Madeleine Macias RN RN sv Lam, Pin, MD MD pk Alexx Weems RN RN em Mary Neely RN Ricarda Hart ea, Ronaldo, RN RN Devi Duarte RN Alexx Weems RN em Corrections: (The following items were deleted from the chart) 05:37 05:09 CORONAVIRUS+MR.LAB.BRZ ordered. EDWI EDMS 05:37 05:09 Influenza Screen (A \T\ B)+BA.LAB.BRZ ordered. EDWI EDMS 07:28 06:46 Calcium Chloride 10% 10 ml IVP once ordered. rv rv 07:28 07:28 Calcium Chloride 10% 10 ml IVP once given. rv rv 07:28 07:28 Calcium Chloride 10% 10 ml IVP once ordered. rv rv 07:29 07:28 Troponin I ordered. EDMS EDMS 07:29 07:28 Troponin I ordered. [facility] EDMS 10:00 06:57 Hospitalization Ordered by Delfin Kamara MD for Inpatient Admission. Preliminary eb diagnosis is Acute dyspnea. Chronic renal disease. Hyperkalemia. Volume overload. Positive Covid 19. Pneumonia. Bed requested for Intensive Care Unit. Status is Inpatient Admission. Condition is Stable. Problem is new. Symptoms are unchanged. pkl 11:12 10:00 06/22/2020 06:57 Hospitalization Ordered by Delfin Kamara MD for Inpatient em Admission. Preliminary diagnosis is Acute dyspnea. Chronic renal disease. Hyperkalemia. Volume overload. Positive Covid 19. Pneumonia. Bed requested for Telemetry/MedSurg (Inpatient). Status is Inpatient Admission. Condition is Stable. Problem is new. Symptoms are unchanged. eb
--- NOTE | 2020-06-22 06:58 | ER ---
Nurse's Notes [facility] Name: Margarita Dominique Age: 60 yrs Sex: Female : 1960 Arrival Date: 06/22/2020 Time: 04:49 Bed 5 Private MD: Diagnosis: Acute dyspnea. Chronic renal disease. Hyperkalemia. Volume overload. Positive Covid 19. Pneumonia Presentation: 06/22 05:02 Chief complaint: Patient states: Reports she woke up short of breath and pain to the ea left arm and upper back. Pt reports she is on dialysis MWF but missed wed. Son reports she stated earlier that she felt like she had fluid in her lungs. Coronavirus screen: At this time, the client does not indicate any symptoms associated with coronavirus-19. Ebola Screen: No symptoms or risks identified at this time. Initial Sepsis Screen: Does the patient meet any 2 criteria? No. Patient's initial sepsis screen is negative. Does the patient have a suspected source of infection? No. Patient's initial sepsis screen is negative. Risk Assessment: Do you want to hurt yourself or someone else? Patient reports no desire to harm self or others. Onset of symptoms was June 22, 2020. 05:02 Method Of Arrival: Wheelchair ea 05:02 Acuity: YEFRI 3 ea Triage Assessment: 05:10 General: Appears uncomfortable, Behavior is cooperative. Pain: Complains of pain in ea left scapular area and left bicep. Neuro: Level of Consciousness is awake, alert, obeys commands, Oriented to person, place, time. Cardiovascular: Patient's skin is warm and dry. Cardiovascular: Dialysis shunt: in the left bicep, with palpable thrill, with no edema, no bleeding noted. Respiratory: Reports shortness of breath at rest Airway is patent Respiratory effort is labored, Respiratory pattern is tachypnea Pt placed on O2 at 3L Onset: The symptoms/episode began/occurred this morning, the patient has moderate shortness of breath. Derm: Skin is dry, Skin temperature is warm. Historical: - Allergies: 07:30 No Known Allergies; em - PMHx: 07:30 CVA; Diabetes - NIDDM; Dialysis; HEART FAILURE; Hypertension; Hypothyroidism; vitamin d em deficiency; - PSHx: 07:30 BKA RIGHT; em - Immunization history:: Adult Immunizations up to date. - Social history:: Smoking status: Patient denies any tobacco usage or history of. Screenin:08 Abuse screen: Denies threats or abuse. Nutritional screening: No deficits noted. ea Tuberculosis screening: No symptoms or risk factors identified. Fall Risk IV access (20 points). Gait- Weak (10 pts.). Assessment: 05:11 Reassessment: see triage assessment. ea 07:30 Reassessment: Patient appears in no apparent distress at this time. Patient and/or em family updated on plan of care and expected duration. Pain level reassessed. Patient is alert, oriented x 3, equal unlabored respirations, skin warm/dry/pink. 08:30 Reassessment: Patient appears in no apparent distress at this time. Patient and/or em family updated on plan of care and expected duration. Pain level reassessed. Patient is alert, oriented x 3, equal unlabored respirations, skin warm/dry/pink. 10:30 Reassessment: Patient appears in no apparent distress at this time. Patient and/or em family updated on plan of care and expected duration. Pain level reassessed. Patient is alert, oriented x 3, equal unlabored respirations, skin warm/dry/pink. Vital Signs: 05:02 BP 130 / 71; Pulse 99; Resp 40; Temp 98.7; Pulse Ox 69% on R/A; Weight 49.9 kg; Height ea 5 ft. (152.40 cm); 05:27 BP 166 / 79; Pulse 107; Resp 28; Pulse Ox 95% ; ea 08:15 BP 158 / 74; Pulse 99; Resp 18; Pulse Ox 100% on R/A; Pain 0/10; em 09:45 BP 163 / 66; Pulse 102; Resp 18; Pulse Ox 97% on R/A; em 11:09 BP 142 / 53; Pulse 99; Resp 22; Temp 98.7; Pulse Ox 98% on R/A; em 05:02 Body Mass Index 21.48 (49.90 kg, 152.40 cm) ea 05:02 Pt placed on 3L of O2 per nasal cannula ea ED Course: 04:49 Patient arrived in ED. bp1 04:53 Bc Posada RN is Primary Nurse. rv 04:58 Jaime Lambert MD is Attending Physician. pkl 05:08 Triage completed. ea 05:09 Patient has correct armband on for positive identification. Bed in low position. Call ea light in reach. Pulse ox on. NIBP on. 05:09 Patient placed in an exam room, on a stretcher, on oxygen, on pulse oximetry. EKG ea completed in triage. Results shown to MD. 05:17 Inserted saline lock: 20 gauge in right forearm, using aseptic technique. Blood rv collected. 05:17 Initial lab(s) drawn, by me, sent to lab. rv 06:11 XRAY Chest (1 view) In Process Unspecified. EDMS 06:52 Delfin Kamara MD is Hospitalizing Provider. pkl 07:09 Primary Nurse role handed off by Bc Posada RN eb 07:15 Inserted midline allan [id number]. rv 07:31 Alexx Weems, TIFFANY is Primary Nurse. em 10:53 No provider procedures requiring assistance completed. Patient admitted, IV remains in em place. Administered Medications: 07:15 Drug: Calcium Gluconate 1 grams Route: IVPB; Infused Over: 60 mins; Site: right upper rv arm; 07:46 Follow up: Response: No adverse reaction; IV Status: Completed infusion; IV Intake: em 100ml 08:15 Follow up: Response: No adverse reaction; IV Status: Completed infusion ph 07:28 CANCELLED (Duplicate Order): Calcium Chloride 10% 10 ml IVP once rv 07:44 Drug: Sodium Bicarbonate 1 amp Route: IVP; Site: right upper arm; em 08:46 Follow up: Response: No adverse reaction ph 07:46 Drug: D50W 50 ml Route: IVP; Site: right upper arm; em 08:46 Follow up: Response: No adverse reaction ph 07:49 Drug: Insulin Regular Human 10 units {Co-Signature: em (Alexx Weems RN).} Route: IVP; sv Site: right upper arm; 08:45 Follow up: Response: No adverse reaction ph Intake: 07:46 IV: 100ml; Total: 100ml. em Outcome: 06:57 Decision to Hospitalize by Provider. pkl 10:53 Admitted to Tele accompanied by tech, via wheelchair, room 406, with chart, Report em called to TIFFANY Easley 10:53 Condition: stable 10:53 Instructed on the need for admit, Demonstrated understanding of instructions. 11:12 Patient left the ED. em Signatures: Dispatcher [employer] Madeleine Marinelli, RN Jaime Steel MD MD pkl Munoz, Edgar RN RN em Devi Duarte RN RN Mary Neely RN RN ea Ricarda Pablo Ronaldo, RN RN rv Dottie Tobin RN em Corrections: (The following items were deleted from the chart) 05:22 05:02 BP 130 / 71; Pulse 99bpm; Resp 40bpm; Pulse Ox 69% RA; Temp 98.7F; 49.9 kg; ea Height 5 ft.; BMI: 21.4; ea 07:27 07:27 Inserted midline allan [id number] rv rv 07:28 07:15 Calcium Chloride 10% 10 ml IVP in right upper arm rv rv
[2020-06-22] MEDS ORDERED: D50W 50 ML IV ONE (07:06)
[2020-06-22] MEDS ORDERED: INSULIN -REGULAR HUMAN 50 UNIT/0.5 ML ML ONE (07:06)
[2020-06-22] MEDS ORDERED: CALCIUM GLUCONATE 1 GM IVPB 1 GM/50 ML BAG IV ONE (07:07)
[2020-06-22] MEDS ORDERED: SODIUM BICARB 50 MEQ/50ML VIAL ONE (07:07)
[2020-06-22] MEDS ORDERED: ONDANSETRON 4 MG/2 ML VIAL IV PRN (07:24)
[2020-06-22] MEDS ORDERED: ACETAMINOPHEN 500 MG TAB PO PRN (07:24)
[2020-06-22] MEDS ORDERED: MORPHINE 2 MG/ML SYR IV PRN (07:24)
[2020-06-22] MEDS ORDERED: FUROSEMIDE 40 MG/4 ML VIAL IV ONE (07:24)
--- NOTE | 2020-06-22 08:04 | RAD REPORT ---
EXAM DESCRIPTION: RAD - Chest Single View - 06/22/2020 6:11 am CLINICAL HISTORY: DYSPNEA, shortness of breath, left-sided back and arm pain, delayed dialysis COMPARISON: April 2020 TECHNIQUE: AP portable chest image was obtained 06/22/2020 6:11 am . FINDINGS: Interstitial and alveolar opacities are present most prominent in the right lung base. Hea rt and vasculature are normal. No pneumothorax or large pleural effusion. No acute bony abnormality s een. No acute aortic findings suspected. IMPRESSION: Interstitial and alveolar opacification likely from volume overload due to delayed dialy sis. CHF is possible. Bibasilar pneumonia is possible if there is any supporting history or exam findings.
[2020-06-22 09:42] LABS: Potassium 5.4 mmol/L (3.5-5.1)
[2020-06-22 13:08] VITALS: BMI 21.4
--- NOTE | 2020-06-22 14:39 | P.HP ---
Certification for Inpatient Patient admitted to: Inpatient With expected LOS: >2 Midnights Patient will require the following post-hospital care: None Practitioner: I am a practitioner with admitting privileges, knowledge of patient current condition, hospital course, and medical plan of care. Services: Services provided to patient in accordance with Admission requirements found in Title 42 Section 412.3 of the Code of Federal Regulations Patient History Date of Service: 06/22/20 Reason for admission: Respiratory distress History of Present Illness: Patient is a 60-year-old female who came to the hospital for shortness of breath. Patient missed hemodialysis and has become more short of breath. Patient has a history of end-stage renal dialysis. Patient also was diagnosed with the COVID-19 in April and recovered well. Patient never really got that sick during the infection. She feels like she is pretty much it carrier. She will be admitted to the hospital for dialysis. When she is hemodialyzed then we can discharge home. Allergies No Known Allergies Allergy (Unverified 05/25/18 16:13) Home Medications: Amlodipine [Norvasc*] 10 mg PO DAILY 05/26/18 Aspirin [Aspirin EC 81 MG] 81 mg PO DAILY 05/26/18 Atorvastatin Calcium [Lipitor*] 40 mg PO BEDTIME 05/26/18 Levothyroxine [Synthroid*] 25 mcg PO [id number] 05/26/18 Clopidogrel Bisulfate [Plavix*] 75 mg PO DAILY #30 tablet 05/01/20 Insulin Glargine,Hum.rec.anlog [Lantus Solostar] 5 unit SQ BEDTIME 06/22/20 Insulin Regular, Human [Humulin R U-500 Kwikpen] See Protocol SQ ACHS 06/22/20 Sevelamer Carbonate 2.4 gm PO TIDWM 06/22/20 lisinopriL [Lisinopril] 20 mg PO DAILY 06/22/20 lisinopriL [Lisinopril] 40 mg PO DAILY 06/22/20 - Past Medical/Surgical History Diabetic: Yes -: HTN -: IDDM -: "thyroid issues" -: stroke X2 with weakness to L eye and poor L eye vision -: ESRD w/ dialysis -: CHF -: Vit D deficiency -: COVID-19 -: cardiac stent X1 -: cholecystectomy -: L Fistula -: R BKA - Family History Father Medical History: Diabetes Mother Medical History: Heart disease, Hypertension, Diabetes - Social History Smoking Status: Never smoker Alcohol use: No CD- Drugs: No Caffeine use: Yes Place of Residence: Home Review of Systems 10-point ROS is otherwise unremarkable Physical Examination - Vital Signs Temperature: 97.3 F Blood Pressure: 194/86 Pulse: 104 Respirations: 16 Pulse Ox (%): 95 - Physical Exam General: Alert, In no apparent distress, Oriented x3 HEENT: Atraumatic, PERRLA, Mucous membr. moist/pink, EOMI, Sclerae nonicteric Neck: Supple, 2+ carotid pulse no bruit, No LAD, Without JVD or thyroid abnormality Respiratory: Clear to auscultation bilaterally, Normal air movement Cardiovascular: Regular rate/rhythm, Normal S1 S2, No murmurs Gastrointestinal: Normal bowel sounds, Soft and benign, Non-distended, No tenderness Musculoskeletal: No clubbing, No swelling, No tenderness Integumentary: No rashes, Other (AV fistula) Neurological: Normal gait, Normal speech, Normal strength at 5/5 x4 extr, Normal tone, Sensation intact, Cranial nerves 3-12 intact, Normal affect Lymphatics: No axilla or inguinal lymphadenopathy - Studies Laboratory Data (last 24 hrs) 06/22/20 05:10: PT 10.6, INR 0.90 06/22/20 05:10: WBC 12.9 H, Hgb 10.4 L, Hct 32.8 L, Plt Count 191 06/22/20 05:10: Sodium 137, Potassium 5.9 H*, BUN 79 H, Creatinine 9.96 H*, Glucose 335 H, Magnesium 3.1 H D, Total Bilirubin 0.4, AST 12 L, ALT < 6 L, Alkaline Phosphatase 167 H Assessment & Plan - Problems (Diagnosis) (1) Volume overload Current Visit: Yes Status: Acute (2) COVID-19 Current Visit: Yes Status: Acute (3) CVA (cerebral vascular accident) Onset Date: 05/26/18 Current Visit: No Status: Acute (4) DM2 (diabetes mellitus, type 2) Onset Date: 05/26/18 Current Visit: No Status: Acute (5) ESRD (end stage renal disease) Current Visit: No Status: Acute (6) HTN (hypertension) Onset Date: 05/26/18 Current Visit: No Status: Acute - Plan Plan: 1. Continue with hemodialysis 2. Monitor oxygen level 3. Lasix 100 mg IV push x1 4. Monitor electrolytes 5. If patient's labs in volume status improves after hemodialysis then anticipate discharge home later today. Discharge Plan: Home Plan to discharge in: 24 Hours - Advance Directives Does patient have a Living Will: No Does patient have a Durable POA for Healthcare: No - Code Status/Comfort Care Code Status Assessed: Yes Code Status: Full Code Critical Care: No Time Spent Managing PTS Care (In Minutes): 35
[2020-06-22] MEDS ORDERED: cloNIDine HCL 0.1 MG TAB PO ONE (14:43)
[2020-06-22 15:01] LABS: BUN Blood Urea Nitrogen 82 mg/dL (7-18); Bicarbonate 27 mmol/L (21-32); Ferritin 1204.1 ng/mL (8-388); Folic Acid, (Folate) 19.4 ng/mL (3.1-17.5); Glucose Level 130 mg/dL (74-106); NT PRO-BNP 24785 pg/mL (<125); Potassium 6.2 mmol/L (3.5-5.1); Troponin I 0.91 ng/mL (0.0-0.045)
[2020-06-22 15:02] LABS: C-Reactive Protein < 2.90 mg/L (<3.00)
[2020-06-22 15:04] LABS: Sodium Level 141 mmol/L (136-145)
[2020-06-22] MEDS ORDERED: CALCIUM GLUC 10% INJ 4.65 MEQ in NA CHLORIDE 0.9% 100 ML IV ONE (15:21)
[2020-06-22] MEDS ORDERED: GLUCAGON 1 MG/VIAL IM PRN (15:22)
[2020-06-22] MEDS ORDERED: D50W 25 GM/50 ML SYRINGE IV PRN (15:22)
[2020-06-22] MEDS ORDERED: D50W 25 GM/50 ML SYRINGE IV ONE (15:22)
[2020-06-22] MEDS ORDERED: INSULIN -REGULAR HUMAN 50 UNIT/0.5 ML ML SQ ONE (15:39)
[2020-06-22] MEDS ORDERED: INSULIN -REGULAR HUMAN 50 UNIT/0.5 ML ML SQ SCH (18:00)
--- NOTE | 2020-06-22 23:01 | CON ---
Date of Consultation: 06/22/2020 Chief Complaint: End-stage renal disease, shortness of breath, congestive heart failure, fluid overload, and hypoxemia. History Of Present Illness: Patient came to the hospital because of progressively worse shortness of breath. She missed dialysis on Thursday and came for evaluation to the emergency room. She is a 60-year-old woman. Recently, she was diagnosed with COVID-19 pneumonia back in April and she was hospitalized, recovered well. She has history of hypertension, hyperlipidemia, diabetes mellitus, diabetic kidney disease. Today, she denies PND or orthopnea, although she has some dyspnea on exertion. Past Medical History: Hypertension, insulin-dependent diabetes mellitus, thyroid problem, end-stage renal disease, on hemodialysis; congestive heart failure, diastolic dysfunction, vitamin D deficiency, coronary artery disease, status post PTCA; cholecystectomy, left upper extremity AV fistula, right BKA, COVID infection. Family History: Diabetes, in mother; heart disease, hypertension, diabetes. Social History: Denies tobacco, alcohol, or illicit drugs. Physical Examination: Vital Signs: Blood pressure 194/86, heart rate 104, temperature 97.3, respiratory rate 16. General: Patient is alert, not in acute distress. Respiratory: Normal respiratory effort. Neck : supple , no jvd Heart: S1, S2. No pericardial friction rub. Abdomen: Obese, soft, nontender. Extremities: Edema present in both legs. Neurological: Moving extremities. No tremor. SKIN; no cyanosis, no edema Laboratory Data: WBC 12.9, hemoglobin 10.4, platelet count 191,000. Total bilirubin 0.4, sodium 137, potassium 5.9, BUN 79, creatinine 9.96, glucose 335. Potassium was reevaluated and was 6.2. Impression And Plan: 1. End-stage renal disease, fluid overload, hyperkalemia. Patient will have urgent dialysis to control electrolytes. Plan is to use 1K bath and 2K bath subsequently. Patient will have blood work reevaluated to check potassium level after dialysis. 2. Acute coronary syndrome. Troponin is 0.91. Patient will be evaluated by communications electrician supervisor. 3. Hypervolemia. Fluid overload. Patient will have dialysis with ultrafiltration to control fluid overload. Monitor blood pressure and adjust ultrafiltration goal to prevent intradilytic hypotension. 4. Hypertension. Monitor blood pressure during dialysis. Adjust ultrafiltration goal according to blood pressure results. EB/MODL Voice ID: [id number] Report ID: [id number]
[2020-06-23 05:16] VITALS: TEMP 98.9
[2020-06-23 07:05] LABS: Absolute Lymphocytes (CBC) 2.2 K/uL (0.7-4.9); Basophils % 1.4 % (0-1.3); Hematocrit 25.6 % (36.0-45.0); MPV 10.6 fL (7.6-11.3); RBC Red Blood Cell Count 2.97 M/uL (3.86-4.86)
[2020-06-23 07:15] LABS: Albumin 2.7 g/dL (3.4-5.0); Bilirubin Total 0.5 mg/dL (0.2-1.0); Potassium 4.7 mmol/L (3.5-5.1); Protein, Total 6.2 g/dL (6.4-8.2)
[2020-06-23 08:08] VITALS: BP 118/67
--- NOTE | 2020-06-23 09:35 | P.DS ---
Discharge Date: 06/23/20 Disposition: ROUTINE DISCHARGE Discharge Condition: GOOD Reason for Admission: Respiratory distress - Problems (1) Volume overload Status: Acute (2) COVID-19 Status: Acute (3) CVA (cerebral vascular accident) Onset Date: 05/26/18 Status: Acute (4) DM2 (diabetes mellitus, type 2) Onset Date: 05/26/18 Status: Acute (5) ESRD (end stage renal disease) Status: Acute (6) HTN (hypertension) Onset Date: 05/26/18 Status: Acute Brief History of Present Illness: Patient is a 60-year-old female who came to the hospital for shortness of breath. Patient missed hemodialysis and has become more short of breath. Patient has a history of end-stage renal dialysis. Patient also was diagnosed with the COVID-19 in April and recovered well. Patient never really got that sick during the infection. She feels like she is pretty much it carrier. She will be admitted to the hospital for dialysis. When she is hemodialyzed then we can discharge home. Hospital Course: Patient is doing much better clinically. Patient status post hemodialysis. Respiratory status is much improved. At this time patient is stable for discharge home with outpatient follow up. Vital Signs/Physical Exam: Temp Pulse Resp BP Pulse Ox 98.9 F 85 16 118/67 93 06/23/20 08:00 06/23/20 08:00 06/23/20 08:00 06/23/20 08:00 06/23/20 08:00 General: Alert, In no apparent distress, Oriented x3 Laboratory Data at Discharge: WBC 8.1 K/uL (4.3-10.9) D 06/23/20 06:03 Hgb 8.1 g/dL (12.0-15.0) L 06/23/20 06:03 Hct 25.6 % (36.0-45.0) L D 06/23/20 06:03 Plt Count 163 K/uL (152-406) 06/23/20 06:03 PT 10.6 SECONDS (9.5-12.5) 06/22/20 05:10 INR 0.90 06/22/20 05:10 Sodium 140 mmol/L (136-145) 06/23/20 06:03 Potassium 4.7 mmol/L (3.5-5.1) 06/23/20 06:03 BUN 38 mg/dL (7-18) H D 06/23/20 06:03 Creatinine 5.77 mg/dL (0.55-1.3) H* D 06/23/20 06:03 Glucose 179 mg/dL (74-106) H 06/23/20 06:03 Magnesium 3.1 mg/dL (1.8-2.4) H D 06/22/20 05:10 Total Bilirubin 0.5 mg/dL (0.2-1.0) 06/23/20 06:03 AST 17 U/L (15-37) 06/23/20 06:03 ALT 7 U/L (12-78) L 06/23/20 06:03 Alkaline Phosphatase 121 U/L (45-117) H 06/23/20 06:03 Troponin I 0.91 ng/mL (0.0-0.045) H* 06/22/20 12:51 Home Medications: Amlodipine [Norvasc*] 10 mg PO DAILY 05/26/18 Aspirin [Aspirin EC 81 MG] 81 mg PO DAILY 05/26/18 Atorvastatin Calcium [Lipitor*] 40 mg PO BEDTIME 05/26/18 Levothyroxine [Synthroid*] 25 mcg PO [id number] 05/26/18 Clopidogrel Bisulfate [Plavix*] 75 mg PO DAILY #30 tablet 05/01/20 Insulin Glargine,Hum.rec.anlog [Lantus Solostar] 5 unit SQ BEDTIME 06/22/20 Insulin Regular, Human [Humulin R U-500 Kwikpen] See Protocol SQ ACHS 06/22/20 Sevelamer Carbonate 2.4 gm PO TIDWM 06/22/20 lisinopriL [Lisinopril] 20 mg PO DAILY 06/22/20 lisinopriL [Lisinopril] 40 mg PO DAILY 06/22/20 Patient Discharge Instructions: OK TO DC IV AND DC HOME. FOLLOW-UP WITH PRIMARY CARE PROVIDER IN 1-2 WEEKS. FOLLOW-UP WITH PULMONARY IN 1-2 WEEKS. Follow-up with Nephrology for hemodialysis. RETURN TO THE ER IF symptoms worsen. CALL or TEXT DR. CHILDERS AT [phone] IF ANY QUESTIONS REGARDING HOSPITAL STAY. PLEASE CALL THE FLOOR AT [phone] IF ANY MEDICATION OR NURSING QUESTIONS. Diet: Renal Activity: Fall precautions Followup: Justina Ravi MD [ACTIVE - CAN ADMIT] - 1 Week (Follow up in one week call for appointment) Unknown,U [Primary Care Provider] - 1 Week (follow up with primary care doctor call for appointment) Time spent managing pt's care (in minutes): 35
[2020-06-23 09:59] VITALS: O2SAT 97
[2020-06-23] MEDS ORDERED: AMLODIPINE 10 MG TAB PO ONE (14:43)
--- NOTE | 2020-06-24 20:24 | PN ---
Date of Progress Note: 06/23/2020 Subjective: End-stage renal disease, shortness of breath, congestive heart failure, fluid overload, and hypoxemia. Patient came to the hospital because of progressively worse shortness of breath. She needs dialysis on Thursday. She came to the hospital for evaluation of dyspnea. She previously was diagnosed with COVID pneumonia back in April and hospitalized and recovered. She has history of hypertension, hyperlipidemia, and diabetes mellitus. She underwent dialysis for metabolic clearance and ultrafiltration to control fluid overload. Patient is on p.o. fluid restriction. Review of Systems: Patient is feeling better. Denies PND or orthopnea. Objective: Lungs: Diminished breath sounds at bases. Heart: S1, S2. Abdomen: Soft, benign. Extremities: No edema. Laboratory Studies: BUN 79, creatinine 9.6, potassium 5.9 and 6.2. Patient was treated for hyperkalemia. Impression And Plan: 1. End-stage renal disease, fluid overload, hyperkalemia. Patient underwent urgent dialysis to control electrolytes, 1K bath and 2K bath subsequently were used for treatment of hyperkalemia. Plan is to monitor potassium level and re- evaluate. Continue low-potassium diet. 2. Acute coronary syndrome. Troponin was 0.91. Patient will follow up with oracle distribution consultant. 3. Hypervolemia. Continue p.o. fluid restriction. Ultrafiltration was done to control fluid overload and treat congestive heart failure, hypertension. Monitor blood pressure during dialysis. Adjust ultrafiltration goal according to blood pressure results. TRI/EDOUARD Voice ID: [id number] Report ID: [id number]
--- NOTE | 2020-06-25 10:32 | EKG ---
Test Date: 2020-06-22 Test Time: 05:00:43 Glassware Verifier: NAVIN MEASUREMENT RESULTS: Intervals: Rate: 106 AK: 146 QRSD: 106 QT: 356 QTc: 472 [place]: P: 39 AK: 146 QRS: 46 T: 83 INTERPRETIVE STATEMENTS: Sinus tachycardia Anterior infarct, age undetermined Abnormal ECG Compared to ECG 04/29/2020 13:44:08 Sinus rhythm no longer present Myocardial infarct finding still present Electronically Signed On 06-25-20 10:28:10 MANAGER ASSISTED LIVING by Bishop Sheehan
== END 2020-06-23 11:12 | disposition home or self-care (01) ==
LOC: ER 04:46 → INTOOBSV 07:25 → ERHOLD 07:25 → 4TH 10:42
PROVIDERS: ADMIT Hospitalist; ATTEND Hospitalist
DX: U07.1 COVID-19 (principal); I13.2 Hypertensive heart and chronic kidney disease with heart failure and with stage 5 chronic kidney disease, or end stage renal disease; N18.6 End stage renal disease; I24.9 Acute ischemic heart disease, unspecified; E11.22 Type 2 diabetes mellitus with diabetic chronic kidney disease; E87.70 Fluid overload, unspecified; R09.02 Hypoxemia; E78.5 Hyperlipidemia, unspecified; E87.5 Hyperkalemia; E55.9 Vitamin D deficiency, unspecified; I25.10 Atherosclerotic heart disease of native coronary artery without angina pectoris; Z89.511 Acquired absence of right leg below knee; Z79.4 Long term (current) use of insulin; I69.398 Other sequelae of cerebral infarction; Z95.5 Presence of coronary angioplasty implant and graft
CPT/HCPCS: 96365; 93005; 87040 ×2; 85025 ×2; 80048 ×3; 36415 ×2; 83735; 85610; 82947 ×2; 80076; 83605 ×2; 84484 ×2; 82728; 82746; 82607; 83540; 80053; 84145 ×2; 83880 ×2; 0240U; 86140; 71045; 90935; 82805; 96375; 99285; J1940; J2270; J0610; G0378 ×3

== ENCOUNTER 2020-08-08 00:30 | Inpatient (IN) | payer OTHER ==
[2020-08-08 01:59] LABS: Absolute Lymphocytes (CBC) 0.8 K/uL (0.7-4.9); Basophils % 0.5 % (0-1.3); Hematocrit 33.1 % (36.0-45.0); Lymphocytes % 5.5 % (15.3-44.8); MPV 9.3 fL (7.6-11.3); RBC Red Blood Cell Count 3.79 M/uL (3.86-4.86)
[2020-08-08 02:02] LABS: Protime INR 0.92
[2020-08-08] MEDS ORDERED: FUROSEMIDE 40 MG/4 ML VIAL ONE (02:05)
[2020-08-08 02:19] LABS: Albumin 3.6 g/dL (3.4-5.0); Bilirubin Direct 0.1 mg/dL (0-0.2); Bilirubin Total 0.5 mg/dL (0.2-1.0); Magnesium 3.3 mg/dL (1.8-2.4); Protein, Total 8.4 g/dL (6.4-8.2); Troponin (Emerg Dept Use Only) 0.07 ng/mL (0.0-0.045)
[2020-08-08 02:20] LABS: Potassium 5.9 mmol/L (3.5-5.1)
[2020-08-08 02:55] LABS: Blood Morphology Comment NOTED (NOT SEEN); Ovalocytes 1+; Platelet Estimate ADEQ
--- NOTE | 2020-08-08 02:57 | EDPHYS ---
Physician Documentation [facility] Name: Margarita Dominique Age: 60 yrs Sex: Female : 1960 Arrival Date: 08/08/2020 Time: 00:34 Bed 15 Private MD: ED Physician José Miguel Lynn HPI: 08/08 01:00 This 60 yrs old Female presents to ER via Wheelchair with complaints of rn Breathing Difficulty. 01:00 The patient has shortness of breath at rest. Onset: The symptoms/episode began/occurred rn 1 hour(s) ago. Duration: The symptoms are continuous. The patient's shortness of breath is aggravated by exertion, is alleviated by nothing. Severity of symptoms: At their worst the symptoms were moderate. The patient has experienced similar episodes in the past. The patient has not recently seen a physician. Reports 1 hour ago began with sob, does not feel ill, feels similar to previous when had fluid in lungs, reports last dialysis last Thursday. No hemoptysis. No fever. Recently with pneumonia and COVID. Makes very little urine. . Historical: - Allergies: 00:54 No Known Allergies; tl1 - Home Meds: 00:54 amlodipine 10 mg tab 1 tab once daily [Active]; aspirin 81 mg Oral chew 1 tab once tl1 daily [Active]; atorvastatin 40 mg Oral tab 1 tab once daily [Active]; carvedilol 25 mg Oral tab 1 tab 2 times per day [Active]; clopidogrel 75 mg Oral tab 1 tab once daily [Active]; cyclobenzaprine 10 mg Oral tab 1 tab once per day [Active]; fluticasone 50 mcg/actuation nasal spsn 1 spray 2 times per day [Active]; furosemide 20 mg Oral tab 1 tab once daily [Active]; gabapentin 100 mg Oral cap 1 caps once nightly [Active]; hydralazine 25 mg Oral tab 1 tab 3 times per day [Active]; isosorbide dinitrate 30 mg Oral tab 1 tab once per day [Active]; Lantus 100 unit/mL Sub-Q soln 10 units nightly [Active]; losartan 100 mg Oral tab 1 tab once daily [Active]; Novolin R 12 units with meal Sub-Q [Active]; Synthroid 25 mcg Oral tab 1 tab once daily [Active]; vitamin D 2, 50,000 units once weekly [Active]; - PMHx: 00:54 CVA; Diabetes - NIDDM; Dialysis; HEART FAILURE; Hypertension; Hypothyroidism; vitamin d tl1 deficiency; - Immunization history:: Adult Immunizations up to date. - Social history:: Smoking status: Patient denies any tobacco usage or history of. - Family history:: not pertinent. - Hospitalizations: : The patient was recently seen at [facility]. ROS: 01:00 Constitutional: Negative for fever, chills, and weight loss, Eyes: Negative for injury, rn pain, redness, and discharge, Neck: Negative for injury, pain, and swelling, Cardiovascular: Negative for chest pain, palpitations, and edema, Respiratory: Negative for cough, wheezing, and pleuritic chest pain, Abdomen/GI: Negative for abdominal pain, nausea, vomiting, diarrhea, and constipation, MS/Extremity: Negative for injury and deformity, Skin: Negative for injury, rash, and discoloration, Neuro: Negative for headache, numbness, tingling, and seizure. Exam: 01:00 Constitutional: This is a well developed, well nourished patient who is awake, alert, rn moderate respiratory distress Head/Face: Normocephalic, atraumatic. ENT: no stridor Cardiovascular: Tachycardic, regular Respiratory: + moderate tachypnea, coarse bilatera breath sounds with crackles. Abdomen/GI: Soft, non-tender Skin: Warm, dry MS/ Extremity: Pulses equal, no cyanosis. + thrill LUE. Neuro: Awake and alert, GCS 15 Vital Signs: 00:50 BP 130 / 63; Pulse 101; Resp 28; Temp 97.7; Pulse Ox 62% on R/A; Weight 52.16 kg; tl1 Height 5 ft. 5 in. (165.10 cm); Pain 0/10; 01:51 BP 144 / 101; Pulse 106; Resp 22; Pulse Ox 95% on BiPAP; em 00:50 Body Mass Index 19.14 (52.16 kg, 165.10 cm) tl1 MDM: 00:46 Patient medically screened. rn 02:55 Differential diagnosis: CHF exacerbation, pulmonary edema, ESRD, hyperkalemia. Data rn reviewed: vital signs, nurses notes, lab test result(s), EKG, radiologic studies, plain films, and as a result, I will admit patient. Counseling: I had a detailed discussion with the patient and/or guardian regarding: the historical points, exam findings, and any diagnostic results supporting the discharge/admit diagnosis, lab results, radiology results, the need for further work-up and treatment in the hospital. Response to treatment: the patient's symptoms have markedly improved after treatment, and as a result, I will admit patient. Admission orders: after a detailed discussion of the patient's condition and case, the admit orders are written by me. 08/08 00:59 Order name: Blood Culture Adult (2) rn 08/08 00:59 Order name: BMP; Complete Time: : 08/08 00:59 Order name: CBC with Diff; Complete Time: 04:06 08/08 00:59 Order name: Hepatic Function; Complete Time: : 08/08 00:59 Order name: Magnesium; Complete Time: : 08/08 00:59 Order name: NT PRO-BNP; Complete Time: : 08/08 00:59 Order name: PT-INR; Complete Time: : 08/08 00:59 Order name: Ptt, Activated; Complete Time: : 08/08 00:59 Order name: Troponin (emerg Dept Use Only); Complete Time: : 08/08 01:00 Order name: Procalcitonin; Complete Time: 03:06 08/08 02:20 Order name: Manual Differential; Complete Time: 04:06 [facility] 08/08 04:33 Order name: CORONAVIRUS EDNJ 08/08 05:15 Order name: Glucose, Ancillary Testing [facility] 08/08 00:59 Order name: XRAY CXR (1 view) 08/08 01:00 Order name: BIPAP rn 08/08 05:16 Order name: SARS-COV-2 RT PCR EDNJ 08/08 08:38 Order name: Glucose, Ancillary Testing [facility] 08/08 08:59 Order name: Troponin I [facility] 08/08 12:42 Order name: Glucose, Ancillary Testing [facility] 08/08 15:21 Order name: Troponin I EDN[facility] 08/08 18:58 Order name: Glucose, Ancillary Testing [facility] 08/08 20:11 Order name: Glucose, Ancillary Testing EDN[facility] 08/09 06:24 Order name: CBC with Automated Diff EDMS 08/09 06:40 Order name: Basic Metabolic Panel EDMS 08/09 07:36 Order name: Glucose, Ancillary Testing EDMS 08/09 11:42 Order name: Glucose, Ancillary Testing EDMS 08/09 12:36 Order name: RAD EDMS 08/09 14:01 Order name: ABG Arterial Blood Gas EDMS 08/09 15:59 Order name: Glucose, Ancillary Testing EDMS 08/08 00:59 Order name: EKG; Complete Time: 01:01 rn 08/08 00:59 Order name: Cardiac monitoring; Complete Time: 01:03 rn 08/08 00:59 Order name: EKG - Nurse/Tech; Complete Time: 01:25 rn 08/08 00:59 Order name: IV Saline Lock; Complete Time: 01:44 rn 08/08 00:59 Order name: Labs collected and sent; Complete Time: 01:44 rn 08/08 00:59 Order name: O2 Per Protocol; Complete Time: 01:03 rn 08/08 00:59 Order name: O2 Sat Monitoring; Complete Time: 01:03 rn Administered Medications: 02:16 Drug: Lasix 40 mg Route: IVP; Site: right forearm; em 03:00 Follow up: Response: No adverse reaction em 02:55 Drug: Kayexalate 30 grams Route: PO; em 05:28 Follow up: Response: No adverse reaction em 02:58 Drug: D50W 50 ml Route: IVP; Site: right forearm; em 05:28 Follow up: Response: No adverse reaction em 03:00 Drug: Insulin Regular Human 5 units {Co-Signature: sg (Rich Treviño RN).} Route: IVP; em Site: right forearm; 05:28 Follow up: Response: No adverse reaction em 03:05 Drug: Calcium Gluconate 1 grams Route: IVPB; Infused Over: 60 mins; Site: right forearm;em 05:28 Follow up: Response: No adverse reaction; IV Status: Completed infusion; IV Intake: em 100ml 05:04 Drug: LevaQUIN 500 mg Volume: 100 ml; Route: IVPB; Infused Over: 60 mins; Site: right em forearm; Disposition: 02:55 Critical Care:. rn Disposition: 08/08/20 02:56 Hospitalization ordered by Darien Freeman for Inpatient Admission. Preliminary diagnosis are Hypoxemia, Pulmonary edema, End stage renal disease, Hyperkalemia. - Bed requested for Telemetry/MedSurg (Inpatient). - Status is Inpatient Admission. hb - Condition is Stable. - Problem is an ongoing problem. - Symptoms have improved. Critical care time excluding procedures: 02:55 Critical care time: Bedside Care: 25 minutes, Consultation: 5 minutes. Total time: 30 rn minutes Signatures: Dispatcher [employer] Lauren Draper RN RN dw Munoz, Edgar, RN RN em Nieto, Roman, MD MD rn Attema, Lee, POLICY WRITER TYPIST-C POLICY WRITER TYPIST-Cla1 Marce Diaz RN RN tl1 Harriett Solis RN TIFFANY Manuel Florentino RN RN ja1 Rich Treviño RN Corrections: (The following items were deleted from the chart) 03:26 02:56 Hospitalization Ordered by Darien Freeman DO for Inpatient Admission. Preliminary dw diagnosis is Hypoxemia; Pulmonary edema; End stage renal disease; Hyperkalemia. Bed requested for Telemetry/MedSurg (Inpatient). Status is Inpatient Admission. Condition is Stable. Problem is an ongoing problem. Symptoms have improved. rn 08/09 15:02 08/08 03:26 08/08/2020 02:56 Hospitalization Ordered by Darien Freeman DO for Inpatient ja1 Admission. Preliminary diagnosis is Hypoxemia; Pulmonary edema; End stage renal disease; Hyperkalemia. Bed requested for [facility] ER HOLD. Status is Inpatient Admission. Condition is Stable. Problem is an ongoing problem. Symptoms have improved. dw 08/09 16:35 15:02 08/08/2020 02:56 Hospitalization Ordered by Darien Freeman DO for Inpatient hb Admission. Preliminary diagnosis is Hypoxemia; Pulmonary edema; End stage renal disease; Hyperkalemia. Bed requested for Telemetry/MedSurg (Inpatient). Status is Inpatient Admission. Condition is Stable. Problem is an ongoing problem. Symptoms have improved. ja1
--- NOTE | 2020-08-08 02:57 | ER ---
Nurse's Notes [facility] Name: Margarita Dominique Age: 60 yrs Sex: Female : 1960 Arrival Date: 08/08/2020 Time: 00:34 Bed 15 Private MD: Diagnosis: Hypoxemia;Pulmonary edema;End stage renal disease;Hyperkalemia Presentation: 08/08 00:50 Chief complaint: Patient's son or daughter states: shortness of breath that started tl1 about 1.5 hours ago. Was admitted last month for the same thing. Coronavirus screen: Client presents with at least one sign or symptom that may indicate coronavirus-19. Standard/surgical mask placed on the client. Ebola Screen: Patient negative for fever greater than or equal to 101.5 degrees Fahrenheit, and additional compatible Ebola Virus Disease symptoms Patient denies exposure to infectious person. Patient denies travel to an Ebola-affected area in the 21 days before illness onset. Initial Sepsis Screen: Does the patient meet any 2 criteria? Yes Does the patient have a suspected source of infection? No. Patient's initial sepsis screen is negative. Risk Assessment: Do you want to hurt yourself or someone else? Patient reports no desire to harm self or others. Onset of symptoms was August 08, 2020. 00:50 Method Of Arrival: Wheelchair tl1 00:50 Acuity: YEFRI 2 tl1 Historical: - Allergies: 00:54 No Known Allergies; tl1 - Home Meds: 00:54 amlodipine 10 mg tab 1 tab once daily [Active]; aspirin 81 mg Oral chew 1 tab once tl1 daily [Active]; atorvastatin 40 mg Oral tab 1 tab once daily [Active]; carvedilol 25 mg Oral tab 1 tab 2 times per day [Active]; clopidogrel 75 mg Oral tab 1 tab once daily [Active]; cyclobenzaprine 10 mg Oral tab 1 tab once per day [Active]; fluticasone 50 mcg/actuation nasal spsn 1 spray 2 times per day [Active]; furosemide 20 mg Oral tab 1 tab once daily [Active]; gabapentin 100 mg Oral cap 1 caps once nightly [Active]; hydralazine 25 mg Oral tab 1 tab 3 times per day [Active]; isosorbide dinitrate 30 mg Oral tab 1 tab once per day [Active]; Lantus 100 unit/mL Sub-Q soln 10 units nightly [Active]; losartan 100 mg Oral tab 1 tab once daily [Active]; Novolin R 12 units with meal Sub-Q [Active]; Synthroid 25 mcg Oral tab 1 tab once daily [Active]; vitamin D 2, 50,000 units once weekly [Active]; - PMHx: 00:54 CVA; Diabetes - NIDDM; Dialysis; HEART FAILURE; Hypertension; Hypothyroidism; vitamin d tl1 deficiency; - Immunization history:: Adult Immunizations up to date. - Social history:: Smoking status: Patient denies any tobacco usage or history of. - Family history:: not pertinent. - Hospitalizations: : The patient was recently seen at [facility]. Screenin:02 Abuse screen: Denies threats or abuse. Nutritional screening: No deficits noted. em Tuberculosis screening: No symptoms or risk factors identified. Fall Risk None identified. Assessment: 01:02 General: Appears uncomfortable, Behavior is calm, cooperative, appropriate for age, em Denies fever. Pain: Denies pain. Neuro: Level of Consciousness is awake, alert, obeys commands, Oriented to person, place, time, situation. Cardiovascular: Rhythm is regular. Respiratory: Airway is patent Respiratory effort is labored, Respiratory pattern is tachypnea. Derm: Skin is intact, is healthy with good turgor, Skin is pink, warm \T\ dry. Musculoskeletal: Capillary refill < 3 seconds, Range of motion: intact in all extremities. 01:15 Reassessment: Patient appears in no apparent distress at this time. Patient states em feeling better. Patient states symptoms have improved. 01:50 Reassessment: Patient appears in no apparent distress at this time. Patient and/or em family updated on plan of care and expected duration. Pain level reassessed. Patient is alert, oriented x 3, equal unlabored respirations, skin warm/dry/pink. 03:13 Reassessment: Patient appears in no apparent distress at this time. CHERELLE Redding at bedside. em Vital Signs: 00:50 BP 130 / 63; Pulse 101; Resp 28; Temp 97.7; Pulse Ox 62% on R/A; Weight 52.16 kg; tl1 Height 5 ft. 5 in. (165.10 cm); Pain 0/10; 01:51 BP 144 / 101; Pulse 106; Resp 22; Pulse Ox 95% on BiPAP; em 00:50 Body Mass Index 19.14 (52.16 kg, 165.10 cm) tl1 ED Course: 00:34 Patient arrived in ED. ag3 00:43 Alexx Weems, RN is Primary Nurse. em 00:46 José Miguel Lynn MD is Attending Physician. rn 00:52 Triage completed. tl1 00:54 Arm band placed on right wrist. tl1 01:02 Patient has correct armband on for positive identification. Placed in gown. Bed in low em position. Side rails up X2. Adult w/ patient. equipment monitor phototypesetting on. Pulse ox on. NIBP on. 01:31 XRAY CXR (1 view) In Process Unspecified. EDMS 01:44 Inserted saline lock: 22 gauge in right forearm, using aseptic technique. Blood em collected. 01:44 Initial lab(s) drawn, by me, sent to lab. First set of blood cultures drawn by me. em 02:20 Notified ED physician of a critical lab result(s). k 5.9, cre 10.2. sg 02:55 Darien Freeman DO is Hospitalizing Provider. rn 04:56 No provider procedures requiring assistance completed. Patient admitted, IV remains in em place. 07:23 Primary Nurse role handed off by Alexx Weems RN jl7 07:23 Brandt Barnes, TIFFANY is Primary Nurse. jl7 08:21 Primary Nurse role handed off by Brandt Barnes RN 13:26 Brandt Barnes RN is Primary Nurse. jl7 Administered Medications: 02:16 Drug: Lasix 40 mg Route: IVP; Site: right forearm; em 03:00 Follow up: Response: No adverse reaction em 02:55 Drug: Kayexalate 30 grams Route: PO; em 05:28 Follow up: Response: No adverse reaction em 02:58 Drug: D50W 50 ml Route: IVP; Site: right forearm; em 05:28 Follow up: Response: No adverse reaction em 03:00 Drug: Insulin Regular Human 5 units {Co-Signature: monserrat (Rich Treviño RN).} Route: IVP; em Site: right forearm; 05:28 Follow up: Response: No adverse reaction em 03:05 Drug: Calcium Gluconate 1 grams Route: IVPB; Infused Over: 60 mins; Site: right forearm;em 05:28 Follow up: Response: No adverse reaction; IV Status: Completed infusion; IV Intake: em 100ml 05:04 Drug: LevaQUIN 500 mg Volume: 100 ml; Route: IVPB; Infused Over: 60 mins; Site: right em forearm; Intake: 05:28 IV: 100ml; Total: 100ml. em Outcome: 02:56 Decision to Hospitalize by Provider. rn 04:56 Admitted to ER Hold. Please see [facility] for further documentation. em 04:56 Condition: improved 04:56 Instructed on the need for admit, Demonstrated understanding of instructions. 18 16:35 Patient left the ED. Signatures: Dispatcher [employer] Irlanda Sibley Steven, RN TIFFANY sg Alexx Weems RN RN José Miguel Lynn MD MD rn Lasagna, Tonya, RN RN tl1 Harriett Solis RN RN Brandt Barnes RN RN 7 [place] 3 Rich Treviño RN
[2020-08-08] MEDS ORDERED: SOD POLYSTYREN SUL 15 GM/60 ML UCUP ONE (02:58)
[2020-08-08] MEDS ORDERED: D50W 50 ML IV ONE (02:59)
[2020-08-08] MEDS ORDERED: CALCIUM GLUCONATE 1 GM IVPB 1 GM/50 ML BAG IV ONE (02:59)
[2020-08-08] MEDS ORDERED: INSULIN -REGULAR HUMAN 50 UNIT/0.5 ML ML ONE ×3 (03:02→21:29)
--- NOTE | 2020-08-08 03:03 | P.HP ---
Certification for Inpatient Patient admitted to: Observation With expected LOS: <2 Midnights Patient will require the following post-hospital care: None Practitioner: I am a practitioner with admitting privileges, knowledge of patient current condition, hospital course, and medical plan of care. Services: Services provided to patient in accordance with Admission requirements found in Title 42 Section 412.3 of the Code of Federal Regulations Patient History Date of Service: 08/08/20 Primary Care Provider: Nephrology Dr. Ravi Reason for admission: Pulmonary edema History of Present Illness: 60-year-old female with history of ESRD on HD, chronic diastolic congestive heart failure, diabetes mellitus type 2, hypertension, hyperlipidemia, hypothyroidism, CVA presents emergency department for shortness of breath. Patient presented to the ER with saturations in the 60s to 70s on room air and was placed on BiPAP. Patient reports that she has not been to dialysis since Thursday of last week, became significantly short of breath just a few hr prior to arrival to the emergency department. Workup in the emergency department significant pulmonary edema on the chest x-ray, blood cell count 14.6 with left shift creatinine 10.2, GFR for potassium 5.9 elevated BNP. Patient makes some urine was given Lasix in the emergency department in addition to hyperkalemia cocktail. Patient tolerating BiPAP well, ED provider wishes to admit patient for urgent dialysis. Patient was covered with Levaquin for possible superimposed pneumonia. Anticipate clinical improvement after dialysis with possible discharge depending on her condition after dialysis. Allergies No Known Allergies Allergy (Unverified 05/25/18 16:13) Home Medications: Amlodipine [Norvasc*] 10 mg PO DAILY 05/26/18 Aspirin [Aspirin EC 81 MG] 81 mg PO DAILY 05/26/18 Atorvastatin Calcium [Lipitor*] 40 mg PO BEDTIME 05/26/18 Levothyroxine [Synthroid*] 25 mcg PO XLEIL5RY 05/26/18 Clopidogrel Bisulfate [Plavix*] 75 mg PO DAILY #30 tablet 05/01/20 Insulin Glargine,Hum.rec.anlog [Lantus Solostar] 5 unit SQ BEDTIME 06/22/20 Insulin Regular, Human [Humulin R U-500 Kwikpen] See Protocol SQ ACHS 06/22/20 Sevelamer Carbonate 2.4 gm PO TIDWM 06/22/20 lisinopriL [Lisinopril] 20 mg PO DAILY 06/22/20 lisinopriL [Lisinopril] 40 mg PO DAILY 06/22/20 - Past Medical/Surgical History Diabetic: Yes -: HTN -: IDDM -: Hypothyroidism -: stroke X2 with weakness to L eye and poor L eye vision -: ESRD w/ dialysis -: Chronic diastolic congestive heart failure -: Vit D deficiency -: COVID-19 -: cardiac stent X1 -: cholecystectomy -: L Fistula -: R BKA Psychosocial/ Personal History: Patient lives at home with family - Family History Father -: Diabetes Mother -: Heart disease, Hypertension, Diabetes - Social History Alcohol use: No CD- Drugs: No Caffeine use: Yes Place of Residence: Home Review of Systems 10-point ROS is otherwise unremarkable Respiratory: Cough, Shortness of Breath Cardiovascular: As per HPI Physical Examination - Physical Exam General: Alert, In no apparent distress HEENT: Atraumatic, PERRLA, Mucous membr. moist/pink Neck: Supple, 2+ carotid pulse no bruit, JVD distended Respiratory: Clear to auscultation bilaterally, Crackles/rales (Bilaterally), Other (Patient tachypneic, dyspneic. Tolerating BiPAP.) Cardiovascular: Regular rate/rhythm, Normal S1 S2 Capillary refill: <2 Seconds Gastrointestinal: Normal bowel sounds, Soft and benign, No tenderness, No masses, No rebound Musculoskeletal: No tenderness Integumentary: No rashes Neurological: Normal speech, Normal strength at 5/5 x4 extr, Normal tone Lymphatics: No axilla or inguinal lymphadenopathy - Studies Laboratory Data (last 24 hrs) 08/08/20 01:48: PT 10.6, INR 0.92, APTT 25.7 08/08/20 01:48: WBC 14.60 H, Hgb 10.8 L, Hct 33.1 L, Plt Count 204 08/08/20 01:48: Sodium 143, Potassium 5.9 H*, BUN 84 H, Creatinine 10.20 H*, Glucose 198 H, Magnesium 3.3 H, Total Bilirubin 0.5, AST 16, ALT 13, Alkaline Phosphatase 174 H Assessment and Plan - Plan Assessment Acute hypoxic respiratory failure secondary to ESRD on HD with pulmonary edema and mild hyperkalemia Acute on chronic diastolic congestive heart failure with pulmonary edema Diabetes mellitus type 2 Hypertension Hyperlipidemia Hypothyroidism History of CVA Plan Acute hypoxic respiratory failure secondary to ESRD on HD with pulmonary edema and mild hyperkalemia: Patient given Lasix and hyperkalemia cocktail in the emergency department, no significant EKG changes at this time. Continue to monitor on telemetry, will discuss case with nephrology for urgent dialysis. Patient tolerating BiPAP well at this time. Patient with white blood cell count 14 with left shift, covered with Levaquin for possible superimposed pneumonia. After patient is dialyze if she remains stable can likely be discharged. DVT prophylaxis heparin 5000 units subcutaneous twice daily. Acute on chronic diastolic congestive heart failure with pulmonary edema: Continue home medications, will likely improve with dialysis. Continue fluid restrictions. Diabetes mellitus type 2: A.c. HS Accu-Cheks, sliding scale insulin therapy. Hypertension: Obtain and continue home meds Hyperlipidemia: Obtain and continue home meds Hypothyroidism:Obtain and continue home meds History of CVA:Obtain and continue home meds Discharge Plan: Home Plan to discharge in: 24 Hours - Advance Directives Does patient have a Living Will: No Does patient have a Durable POA for Healthcare: No - Code Status/Comfort Care Code Status Assessed: Yes (Full code) Critical Care: No Time Spent Managing Pts Care (In Minutes): 55
[2020-08-08] MEDS ORDERED: Levofloxacin500mg IV 500 MG/100 ML BAG IV ONE (03:46)
[2020-08-08 06:27] VITALS: BMI 19.7
[2020-08-08] MEDS ORDERED: ONDANSETRON 4 MG/2 ML VIAL IV PRN (07:22)
[2020-08-08] MEDS: INSULIN -REGULAR HUMAN 50 UNIT/0.5 ML ML SQ SCH ×4 (07:30→21:00)
[2020-08-08] MEDS: HEPARIN 5000 UNIT/ML 1 ML VIAL SQ SCH ×2 (09:00→21:00)
[2020-08-08] MEDS ORDERED: HEPARIN 5000 UNIT/ML 1 ML VIAL ONE ×2 (09:06→21:30)
--- NOTE | 2020-08-08 14:34 | RAD REPORT ---
EXAM DESCRIPTION: RAD - Chest Single View - 08/08/2020 1:31 am CLINICAL HISTORY: 60 years Female DYSPNEA COMPARISON: None TECHNIQUE: AP view of the chest was obtained. FINDINGS: Cardiac silhouette is enlarged. Central vessels are indistinct. Airspace opacities lung hayward bilaterally right greater than left. Possible layering pleural fluid o n right. No effusion on left. No pneumothorax. Vascular graft medial soft tissues left upper extremity. Associated surgical clips. IMPRESSION: Enlarged heart with moderate central congestion. Extensive bilateral infiltrates right greater than left. Electronically signed by: Leida Zavala MD 08/08/2020 1:58 AM MODEL DRESSER Due to temporary technical issues with the PACS/Fluency reporting system, reports are being signed by the in house radiologist without review as a courtesy to ensure prompt reporting. The interpreting r adiologist is fully responsible for the content of the report.
[2020-08-08] MEDS: ACETAMINOPHEN 325 MG TABLET PO PRN ×2 (14:54→23:50)
--- NOTE | 2020-08-08 14:55 | P.PN ---
Subjective Date of Service: 08/08/20 Primary Care Provider: Nephrology Dr. Ravi Chief Complaint: Pulmonary edema Subjective: Improving, Other (Patient was on BiPAP this morning without significant distress. Patient reports noncompliance with missed dialysis on Thursday. She apparently did not sleep well that night.) Physical Examination - Vital Signs Temperature: 98.3 F Blood Pressure: 161/72 Pulse: 107 Respirations: 15 Pulse Ox (%): 99 - Studies Laboratory Data (last 24 hrs) 08/08/20 08:25: Troponin I 0.49 H 08/08/20 01:48: PT 10.6, INR 0.92, APTT 25.7 08/08/20 01:48: WBC 14.60 H, Hgb 10.8 L, Hct 33.1 L, Plt Count 204 08/08/20 01:48: Sodium 143, Potassium 5.9 H*, BUN 84 H, Creatinine 10.20 H*, Glucose 198 H, Magnesium 3.3 H, Total Bilirubin 0.5, AST 16, ALT 13, Alkaline Phosphatase 174 H Assessment & Plan Discharge Plan: Home Plan to discharge in: 24 Hours Physician Review Additional Text: Physical exam: Patient alert, cooperative. Currently on BiPAP. Heart: Regular rate and rhythm Lungs: Slight crackles to the bases Abdomen: Soft nontender nondistended Extremities: Good range of motion. No significant edema. Assessment Acute hypoxic respiratory failure secondary to ESRD on HD with pulmonary edema and mild hyperkalemia Acute on chronic diastolic congestive heart failure with pulmonary edema Diabetes mellitus type 2 Hypertension Hyperlipidemia Hypothyroidism History of CVA Plan Acute hypoxic respiratory failure secondary to ESRD on HD with pulmonary edema and mild hyperkalemia: Patient to receive dialysis. Patient had missed dialysis on Thursday. Compliance addressed in detail. Will discuss with nephrology. Wean off BiPAP. Patient may require home oxygen at discharge. Will monitor closely. Patient being covered for possible underlying pneumonia. Will monitor this closely. Spoke with cardiology. No intervention required. Anticipate improvement over the next 24-48 hr with possible discharge after that time. Acute on chronic diastolic congestive heart failure with pulmonary edema: Restart Lasix. Address fluid restriction. Continue dialysis. Diabetes mellitus type 2: A.c. HS Accu-Cheks, sliding scale insulin therapy. Hypertension: restart Norvasc Hyperlipidemia: Restart medication Lipitor Hypothyroidism: Restart medication levothyroxine History of CVA: Restart medication aspirin Time Spent Managing Pts Care (In Minutes): 55
[2020-08-08] MEDS ORDERED: DRISDOL (VITAMIN D=ERGOCALCIFEROL) 50000 UNIT CAP PO SCH (16:00)
--- NOTE | 2020-08-08 16:49 | CON ---
Date of Consultation: 08/08/2020 Reason For Consultation: Elevated BUN and creatinine, hyperkalemia. History Of Present Illness: This is a 60-year-old female, well known to me from dialysis with significant past medical history of end-stage renal disease, on hemodialysis at [facility], hypertension, hyperlipidemia, coronary artery disease. The patient came to the hospital that she could not dialyze because the dialysis center was not functioning. The patient found to have hyperkalemia, over volume. We took the patient for urgent dialysis. We are challenging the patient. Past Medical History: 1. Hypertension. 2. Hyperlipidemia. 3. Coronary artery disease. 4. Peripheral vascular disease, status post below-knee amputation. 5. End-stage renal disease. Social History: Denied smoking, denied drinking, denied drugs abuse. Past Surgical History: Includes AV fistula, below-knee amputation. Family History: Positive for diabetes and hypertension. Allergies: NO KNOWN DRUGS ALLERGY. Review of Systems: Head and Neck: No red eye. No ear pain. GI: No nausea. No vomiting. : No polyuria. No dysuria. No hematuria. WEIGHT ENGINEER: No vaginal discharge. Respiratory: Has shortness of breath. Cardiovascular: No chest pain. Endocrine: No polydipsia. Skin: No rash. Neuro: Has fatigue, has neuropathy. Musculoskeletal: Generalized weakness. Physical Examination: Vital Signs: Blood pressure of 161/72, pulse of 107, afebrile. Chest: Crackles bilateral. Heart: S1, S2. Systolic murmur. Abdomen: Soft, nontender. Extremities: Below-knee amputation. Laboratory Data: H and H 10.8/33.1. Sodium 143, potassium 5.9, bicarb 22, BUN 84, creatinine 10.2, calcium 8.4. Assessment And Plan: 1. End-stage renal disease with hyperkalemia and over volume. We will challenge the patient. The patient is going to be dialyzed on low-potassium bath and we will follow up. 2. Hypertension. We will utilize the blood pressure to establish better volume control. 3. Anemia of chronic kidney disease. We will resume PRASHANT. 4. Elevation of troponin, mostly in the setting of hypertension and hypoxemia secondary to the over volume. We will follow up with primary. The patient is going to be cleared from the Renal standpoint for discharge planning after dialysis. Time spent discussing with the patient, examining the patient, exam [id number], placing order, discussing with staff and other consulting include including Cardiology and Primary 75 minutes. KEITH Voice ID: [id number] Report ID: [id number]
[2020-08-08] MEDS: ATORVASTATIN 40 MG TAB PO SCH (21:00)
[2020-08-08] MEDS ORDERED: ATORVASTATIN 20 MG TAB ONE (21:30)
[2020-08-08] MEDS ORDERED: MIRTAZAPINE 15 MG TAB ONE (21:58)
[2020-08-08] MEDS ORDERED: acetaZOLAMIDE 250 MG TAB ONE (21:58)
[2020-08-09] MEDS ORDERED: ACETAMINOPHEN 325 MG TABLET ONE (00:05)
[2020-08-09] MEDS: LEVOTHYROXINE SOD 0.025 MG TAB PO SCH (05:30)
[2020-08-09] MEDS ORDERED: LEVOTHYROXINE SOD 0.025 MG TAB ONE (05:42)
[2020-08-09 06:09] LABS: Absolute Lymphocytes (CBC) 2.5 K/uL (0.7-4.9); Basophils % 0.2 % (0-1.3); Hematocrit 29.7 % (36.0-45.0); Lymphocytes % 28.5 % (15.3-44.8); MPV 9.5 fL (7.6-11.3); RBC Red Blood Cell Count 3.38 M/uL (3.86-4.86)
[2020-08-09 06:31] LABS: Potassium 4.1 mmol/L (3.5-5.1)
[2020-08-09] MEDS: INSULIN -REGULAR HUMAN 50 UNIT/0.5 ML ML SQ SCH ×4 (07:30→20:27)
[2020-08-09] MEDS ORDERED: FUROSEMIDE 20 MG TABLET ONE (08:14)
[2020-08-09] MEDS ORDERED: CLOPIDOGREL 75 MG TABLET ONE (08:15)
[2020-08-09] MEDS ORDERED: AMLODIPINE 10 MG TAB ONE (08:15)
[2020-08-09] MEDS ORDERED: FOLIC ACID 1 MG TABLET ONE (08:15)
[2020-08-09] MEDS ORDERED: ASPIRIN EC 81 MG TAB PO ONE (08:15)
[2020-08-09] MEDS: ASPIRIN EC 81 MG TAB PO SCH (08:53)
[2020-08-09] MEDS: FOLIC ACID 1 MG TABLET PO SCH (08:53)
[2020-08-09] MEDS: CLOPIDOGREL 75 MG TABLET PO SCH (08:53)
[2020-08-09] MEDS: HEPARIN 5000 UNIT/ML 1 ML VIAL SQ SCH ×2 (08:59→20:27)
[2020-08-09] MEDS ORDERED: FUROSEMIDE 20 MG TABLET PO SCH (09:00)
[2020-08-09] MEDS ORDERED: AMLODIPINE 10 MG TAB PO SCH (09:00)
[2020-08-09] MEDS ORDERED: HEPARIN 5000 UNIT/ML 1 ML VIAL ONE (09:14)
[2020-08-09] MEDS ORDERED: INSULIN -REGULAR HUMAN 50 UNIT/0.5 ML ML ONE ×2 (11:59→16:12)
--- NOTE | 2020-08-09 12:36 | RAD REPORT ---
EXAM DESCRIPTION: RAD - Chest Pa And Lat (2 Views) - 08/09/2020 12:10 pm CLINICAL HISTORY: SOB Chest pain. COMPARISON: Chest Single View dated 08/08/2020; Chest Single View dated 06/22/2020; Chest Single View d ated 05/01/2020; Chest Single View dated 04/29/2020 FINDINGS: Mild interstitial pulmonary edema is present. The heart is moderately enlarged. No displac ed fractures. IMPRESSION: Mild CHF.
--- NOTE | 2020-08-09 13:06 | P.PN ---
Subjective Date of Service: 08/09/20 Primary Care Provider: Nephrology Dr. Ravi Chief Complaint: Pulmonary edema Subjective: Improving, Doing well Physical Examination - Vital Signs Temperature: 98.4 F Blood Pressure: 122/73 Pulse: 93 Respirations: 18 Pulse Ox (%): 91 Assessment & Plan Discharge Plan: Home Plan to discharge in: 24 Hours Physician Review Additional Text: Physical exam: Patient alert, cooperative. Currently on BiPAP. Heart: Regular rate and rhythm Lungs: Slight crackles to the bases Abdomen: Soft nontender nondistended Extremities: Good range of motion. No significant edema. Assessment Acute hypoxic respiratory failure secondary to ESRD on HD with pulmonary edema and mild hyperkalemia Acute on chronic diastolic congestive heart failure with pulmonary edema Diabetes mellitus type 2 Hypertension Hyperlipidemia Hypothyroidism History of CVA Plan Acute hypoxic respiratory failure secondary to ESRD on HD with pulmonary edema and mild hyperkalemia: Patient did well after dialysis yesterday. Patient on room-air saturations but when walking desats. This was confirmed. Chest x-ray still shows mild CHF. Will discuss with nephrology for additional dialysis today. May be able to reassess her after dialysis for possible discharge after that time. Will still try to arrange for home oxygen at discharge. Will discuss with manager social services. Possible discharge in the next 24 hr. Acute on chronic diastolic congestive heart failure with pulmonary edema: Continue Lasix. Contained fluid restriction. Likely additional dialysis today. Diabetes mellitus type 2: A.c. HS Accu-Cheks, sliding scale insulin therapy. Hypertension: Contain Norvasc Hyperlipidemia: Continue medication Lipitor Hypothyroidism: Continue medication levothyroxine History of CVA: Continue medication aspirin Time Spent Managing Pts Care (In Minutes): 55
[2020-08-09 13:58] LABS: Arterial Blood Carboxyhemoglob 1.6 % (0-1.5); Blood Gas Oxyhemoglobin 87.1 % (94-97); Blood O2 Saturation 89.6 % (92-98.5)
--- NOTE | 2020-08-09 19:02 | PN ---
Date of Progress Note: 08/09/2020 Subjective: The patient was admitted with over volume, respiratory distress. The patient had dialysis yesterday, managed to remove 3 L. The patient is still desaturating on ambulation. Objective: Vital Signs: When I saw the patient, blood pressure 122/73, pulse of 93. Chest: Clear to auscultation. Heart: S1, S2. Systolic murmur. Abdomen: Soft, nontender. Extremities: Bilateral below-knee amputation. Neurologic: Alert. No focality. Laboratory Data: H and H 9.7/29.7. Sodium 140, potassium 4.1, bicarb 29, BUN 42, creatinine 5.9, calcium of 8. Current Medications: The patient on include Levaquin, aspirin, Plavix, atorvastatin, amlodipine, folic acid, vitamin D. Assessment And Plan: 1. End-stage renal disease, over volume. We will arrange for another session of dialysis tomorrow. 2. Hypertension, controlled. We will utilize blood pressure to establish better volume control. I am going to go ahead and discontinue amlodipine to allow for more ultrafiltration tomorrow. Continue diuresis. I am going to go ahead and increase Lasix to 80 mg. 3. Anemia of chronic kidney disease. Continue PRASHANT. 4. Hypoxemia, possible secondary to over volume. Repeated chest x-ray look better than yesterday. We will discuss with hospitalist regarding obtaining CT with contrast if hypoxemia persists after dialysis. 5. Diabetes, as by primary. Time spent discussing with the patient, examining the patient, discussing [id number], placing order, discussing with staff and other consulting include including Cardiology and Primary 45 minutes. KEITH Voice ID: [id number] Report ID: [id number] SIMBA
--- NOTE | 2020-08-09 19:52 | PN ---
Date of Progress Note: 08/08/2020 Subjective: This is a dialysis note. The patient was admitted with over volume, hyperkalemia. We took the patient for organ dialysis. Physical Examination: Vital Signs: When I saw the patient, blood pressure 134/60, pulse of 88. The patient complaining of headache. Chest: Crackles bilateral. Heart: S1, S2. Regular. Systolic murmur. Abdomen: Soft, nontender. Extremities: Bilateral below-knee amputation. Neurologic: Alert and oriented x3. Nonfocal. Laboratory Data: Potassium 5.5, hemoglobin 9.2. medicaion Tylenol , renvela , heparin Assessment And Plan: 1. End-stage renal disease, over volume. We will increase goal to 3500. 2. Anemia. Resume PRASHANT. 3. Hypertension. We will utilize the blood pressure for more ultrafiltration. 4. Headache. We will give the patient Tylenol, decrease gapabintien to 300. Time spent discussing with the patient, examining the patient, exam [id number], placing order, discussing with staff and other consulting include Primary 45 minutes. KEITH Voice ID: [id number] Report ID: [id number] SIMBA
[2020-08-09] MEDS: ATORVASTATIN 40 MG TAB PO SCH (20:27)
[2020-08-09] MEDS ORDERED: AMLODIPINE 10 MG TAB PO ONE (22:00)
[2020-08-10] MEDS: LEVOTHYROXINE SOD 0.025 MG TAB PO SCH (06:19)
[2020-08-10] MEDS: INSULIN -REGULAR HUMAN 50 UNIT/0.5 ML ML SQ SCH ×2 (07:30→11:30)
[2020-08-10] MEDS: FOLIC ACID 1 MG TABLET PO SCH (08:55)
[2020-08-10] MEDS: ASPIRIN EC 81 MG TAB PO SCH (08:58)
[2020-08-10] MEDS: CLOPIDOGREL 75 MG TABLET PO SCH (08:58)
[2020-08-10] MEDS: HEPARIN 5000 UNIT/ML 1 ML VIAL SQ SCH (08:59)
[2020-08-10] MEDS ORDERED: Levofloxacin 250mg IV 250 MG/50 ML BAG IV SCH (09:00)
[2020-08-10] MEDS ORDERED: FUROSEMIDE 20 MG TABLET PO SCH (09:00)
[2020-08-10 09:01] VITALS: TEMP 97.8
--- NOTE | 2020-08-10 09:54 | RAD REPORT ---
EXAM DESCRIPTION: RAD - Chest Pa And Lat (2 Views) - 08/10/2020 6:22 am CLINICAL HISTORY: CHF Chest pain. COMPARISON: Chest Pa And Lat (2 Views) dated 08/09/2020; Chest Single View dated 08/08/2020; Chest Sin gle View dated 06/22/2020; Chest Single View dated 05/01/2020 FINDINGS: Reticular markings bilaterally are mildly prominent. These appear mildly improved since pr ior study. The heart is mildly enlarged in size. No displaced fractures. IMPRESSION: Mild improvement in lung aeration since comparative study.
[2020-08-10 11:53] VITALS: O2SAT 96
--- NOTE | 2020-08-10 11:57 | P.PN ---
Subjective Date of Service: 08/10/20 Primary Care Provider: Nephrology Dr. Ravi Chief Complaint: Pulmonary edema Subjective: Improving Subjective Pt with ESRD , admitted for fluid overload and hypekalmeia todaay seen and examined during HD stable VS still on oxygen possible discharge home today with home Osygen Physical exam general: AAOX3, NAD , obese Neck; Supple, No elevated JVD hear: RRR, normal S1,2 no murmur or rub Chest: CTAB, no rales or wheezes Abdomen: Soft , Nt Extremities No edema or ulcer A/P End-stage renal disease on HD MWF HD as per schedule renal dose meds Anemia of chronic disease Cont epogen HTN Controlled Hyperkalemia resolves with HD Fluid overload HD today total time spent 25min Physical Examination - Vital Signs Temperature: 97.8 F Blood Pressure: 150/56 Pulse: 88 Respirations: 18 Pulse Ox (%): 100
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
[2020-08-10 16:41] VITALS: BP 166/72
[2020-08-10] MEDS ORDERED: AMLODIPINE 10 MG TAB PO ONE (21:11)
== END 2020-08-10 16:20 | disposition home or self-care (01) | DRG 291 ==
LOC: ER 00:30 → ERHOLD 02:29 → OBSVTOIN 11:27 → 4TH 08-09 16:09
PROVIDERS: ADMIT Family Medicine; ATTEND Family Medicine
PROC: 5A1D70Z Performance of Urinary Filtration, Intermittent, Less than 6 Hours Per Day (ICD-10-PCS; principal; 2020-08-08)
PROC: 5A09357 Assistance with Respiratory Ventilation, Less than 24 Consecutive Hours, Continuous Positive Airway Pressure (ICD-10-PCS; 2020-08-08)
DX: I13.2 Hypertensive heart and chronic kidney disease with heart failure and with stage 5 chronic kidney disease, or end stage renal disease (principal); N18.6 End stage renal disease; J96.01 Acute respiratory failure with hypoxia; I50.33 Acute on chronic diastolic (congestive) heart failure; E11.22 Type 2 diabetes mellitus with diabetic chronic kidney disease; E87.5 Hyperkalemia; E78.5 Hyperlipidemia, unspecified; D63.1 Anemia in chronic kidney disease; E11.51 Type 2 diabetes mellitus with diabetic peripheral angiopathy without gangrene; E03.9 Hypothyroidism, unspecified; R51.9 Headache, unspecified; R77.8 Other specified abnormalities of plasma proteins; Z79.82 Long term (current) use of aspirin; Z79.02 Long term (current) use of antithrombotics/antiplatelets; Z79.899 Other long term (current) drug therapy; Z79.4 Long term (current) use of insulin; Z79.890 Hormone replacement therapy; Z99.2 Dependence on renal dialysis; Z86.73 Personal history of transient ischemic attack (TIA), and cerebral infarction without residual deficits; Z91.15 Patient's noncompliance with renal dialysis; Z86.16 Personal history of COVID-19; Z90.49 Acquired absence of other specified parts of digestive tract; Z95.5 Presence of coronary angioplasty implant and graft; Z89.511 Acquired absence of right leg below knee; Z20.822 Contact with and (suspected) exposure to COVID-19
CPT/HCPCS: 36415; 71045; 71046; 80048; 80076; 82805; 82947; 83735; 83880; 84145; 84484; 85025; 85610; 85730; 87040; 90935; 94660; 94760; 96365; 96366; 96375; 99285; G0378; J0610; J1644; J1940; U0003

== ENCOUNTER 2021-07-22 06:50 | Inpatient (IN) | payer OTHER ==
--- OUTSIDE RECORDS SUMMARY | 2021-07-22 06:54 | XMS REPORT | Continuity of Care Document ---
:1960 Author Organization [facility] t Address [address] [place] [address] Care Team Providers Name Role Phone Unavailable Unavailable Unavailable Payers Payer Name Policy Type Policy Number Effective Date Expiration Date S ource Problems This patient has no known problems. Allergies, Adverse Reactions, Alerts Allergy Allergy Status Severity Reaction(s) Onset Inactive Treating Comm ents Source Name Type Date Date Clinician No Known DA Active U TERESA Allergie 06-28 Clear s 00:00: Rosales 00 [facility] Medications Ordered Filled Start Stop Current Ordering Indication Dosage Frequency Signature Comments Components Source Medication Medication Date Date Medication? Clinician (SIG) Name Name Atorvastati Atorvastati Yes Tre TOME DIXIE [facility] [...] AL ent [facility]. Clinics Lantus Lantus Yes rTe INYECTE [address] [facility] [...] DIXIE Outpati VEZ AL ent [facility]. Clinics Procedures This patient has no known procedures. Encounters Start End Encounter Admission Attending Care Care Encounter Source Date/Time Date/Time Type Type Clinicians Facility Department ID 2021-07-17 [facility] [id number] [facility] [address] 11:09[facility]09 [id number] [facility] 2020-01-25 2020-01-25 Out[facility] [id number] [facility] 2019-08-11 2019-08-11 [facility] [id number] [facility] 14:[facility] Results Test Description Test Time Test Comments Results Result Sour e Comments SCR MAMM 2020-11-28 BILATERAL DAVIS 13:49:46 CAD DIGITAL Name: Margarita : 1960 Sex: F - SCR MAMM BILATERAL DAVIS CAD DIGITALBILATERAL DIGITAL SCREENING MAMMOGRAM 3D/2D WITH CAD: 11/16/2020LINICAL: Asymptomatic. Digital breast tomosynthesis was performed in addition to routine CC and MLO views. Current mammographic images were evaluated by [employer] CAD (computer-aided detection) software. Comparison is made to exam dated 04/21/2018 mammogram - [facility]. There are scattered fibroglandular tissues in both breasts. There are benign vascular calcifications in both breasts. No suspicious mass, architectural distortion, malignant type calcification, or lymph node abnormality detected. Breast architecture is stable compared to prior exams.IMPRESSION: BENIGNThere is no mammographic evidence of malignancy. Resume annual screening mammography in one year. Fish márquez/penrogers:11/28/2020 13:49:46 Fall Intern: Becka Reed MM, [facility] sent: BIRADS 1-2 Normal Mammogram BI-RADS: 2 Benign SURGICAL 2018-07-06 SPECIMENS 08:04:00 RUN DATE: 07/06/18 [facility] *LIVE* PAGE 1 RUN TIME: 803 Specimen Inquiry RUN USER: INTERFACE PATIENT: MARGARITA CORONADO LOC: CYNDIE U #: [id number] AGE/SX: 58/F ROOM: RE06/30/18REG DR: Jonathan Reid MD : 56 BED: DIS: [place] [facility] [place] SPEC #: [id number] RECD: 07/01/18 STATUS: AMILCAR REQ #: [id number] JENIFFER: 07/01/18 [facility] DR: Jonathan Reid MD ENTERED: 07/05/18 SP TYPE: SURG SPEC OTHR DR: No Primary or Family PhysicianORDERED: LEVEL 4 CODES: [id number] - COLON, NOS COPIES TO: No Primary or Family Physician Jonathan Reid MD [address] [place] [address] PROCEDURES: GM LEVEL 4 (Incomplete) TISSUES: 1. [...] CONTINUED ON NEXT PAGE RUN DATE: 07/06/18 [facility] *LIVE* PAGE 2 RUN TIME: 803 Specimen Inquiry RUN USER: INTERFACE SPEC #: [id number] PATIENT: MARGARITA CORONADO #[id number] (Continued) POST-OP DIAGNOSIS Colon polyp PRE-OP DIAGNOSIS [...] mammographic images were evaluated by either a [employer] or a [employer] CAD (computer aided detection system). No prior exams were available for comparison. There are scattered fibroglandular tissues in both breasts. Symmetric mild bilateral trabecula and skin thickening noted.No suspicious mass, architectural distortion, malignant type calcification, or lymph node abnormality detected. IMPRESSION: NEGATIVEThere is no mammographic evidence of malignancy. Resume annual screening mammography in one year. Marcia Norris M.D. el/:04/27/2018 15:42:55 Fall Intern: Jackelin Rocha MM, [facility] sent: BIRADS 1-2 Normal Mammogram BI-RADS: 1 Negative
[2021-07-22] MEDS ORDERED: FUROSEMIDE 100 MG/10 ML VIAL IV ONE (07:24)
[2021-07-22 07:30] LABS: Hematocrit 37.5 % (36.0-45.0); Lymphocytes % 12.9 % (15.3-44.8); MPV 9.1 fL (7.6-11.3)
[2021-07-22 07:35] LABS: Protime INR 0.96
[2021-07-22 07:57] LABS: ALT/SGPT 50 U/L (12-78); AST/SGOT 72 U/L (15-37); Albumin 3.5 g/dL (3.4-5.0); Alkaline Phosphatase 135 U/L (45-117); BUN Blood Urea Nitrogen 53 mg/dL (7-18); Bicarbonate 27 mmol/L (21-32); Bilirubin Direct < 0.1 mg/dL (0-0.2); Bilirubin Total 0.3 mg/dL (0.2-1.0); Glucose Level 191 mg/dL (74-106); NT PRO-BNP 24336 pg/mL (<125); Potassium 4.8 mmol/L (3.5-5.1); Protein, Total 8.4 g/dL (6.4-8.2); Sodium Level 137 mmol/L (136-145)
[2021-07-22] MEDS ORDERED: CEFTRIAXONE 1000 MG/VIAL ONE (08:14)
[2021-07-22] MEDS ORDERED: NA CHLORIDE 0.9% 250 ML ONE (08:14)
[2021-07-22] MEDS ORDERED: AZITHROMYCIN 500 MG INJ IVPB ONE (08:14)
[2021-07-22] MEDS ORDERED: NA CHLORIDE 0.9% 50 ML ONE (08:15)
--- NOTE | 2021-07-22 08:25 | EDPHYS ---
Physician Documentation [facility] Name: Margarita Dominique Age: 61 yrs Sex: Female : 1960 Arrival Date: 07/22/2021 Time: 06:53 Bed 19 Private MD: ED Physician José Miguel Lynn HPI: 07/22 07:27 This 61 yrs old Female presents to ER via EMS with complaints of shortness of kb breath. 07:27 The patient has shortness of breath at rest. Onset: The symptoms/episode began/occurred kb this morning. Duration: The symptoms are continuous. The patient's shortness of breath is aggravated by nothing, is alleviated by nothing. Associated signs and symptoms: The patient has no apparent associated signs or symptoms. Severity of symptoms: At their worst the symptoms were moderate in the emergency department the symptoms are unchanged. The patient has experienced similar episodes in the past. The patient has not recently seen a physician. Son went into pt's room this morning, noticed she was short of breath and called 911. EMS reports pt was 84% on home O2 of 4L. . Historical: - Allergies: 06:58 No Known Allergies; bb - PMHx: 06:58 CVA; Diabetes - NIDDM; Dialysis; HEART FAILURE; Hypertension; Hypothyroidism; vitamin d bb deficiency; - Immunization history:: Adult Immunizations unknown, Moderna x 3. - Social history:: Smoking status: unknown. ROS: 07:27 Constitutional: Negative for fever, chills, and weight loss. kb 07:27 Respiratory: Positive for shortness of breath. 07:27 All other systems are negative. Exam: 07:27 Constitutional: This is a well developed, well nourished patient who is awake, alert, kb and in no acute distress. Head/Face: Normocephalic, atraumatic. ENT: Moist Mucous membranes Cardiovascular: Regular rate and rhythm with a normal S1 and S2. No gallops, murmurs, or rubs. No pulse deficits. Skin: Warm, dry with normal turgor. Normal color. MS/ Extremity: Pulses equal, no cyanosis. Neurovascular intact. Full, normal range of motion. Neuro: Awake and alert, GCS 15, oriented to person, place, time, and situation. Moves all extremities. Normal gait. Psych: Awake, alert, with orientation to person, place and time. Behavior, mood, and affect are within normal limits. 07:27 Respiratory: moderate respiratory distress is noted, Respirations: labored breathing, Breath sounds: decreased breath sounds, that are moderate, are located in both bases, rhonchi, that are moderate, are scattered. Vital Signs: 06:54 BP 185 / 85; Pulse 96; Resp 20 S; Temp 97.1(O); Pulse Ox 88% on R/A; Weight 49.9 kg bb (R); Height 5 ft. 0 in. (152.40 cm) (R); 07:00 BP 196 / 80; Pulse 90; Resp 18; Temp 98.6; Pulse Ox 95% ; Weight 66.68 kg; Height 5 ft. cb5 5 in. (165.10 cm); Pain 0/10; 09:00 BP 155 / 78; Pulse 90; Resp 16; Temp 98.4; Pain 0/10; cb5 11:00 BP 181 / 62; Pulse 81; Resp 16; Pain 0/10; cb5 13:00 BP 174 / 63; Pulse 80; Resp 16; Pulse Ox 98% ; Pain 0/10; cb5 16:00 BP 164 / 56; Pulse 79; Resp 16; Pain 0/10; cb5 07:00 Body Mass Index 24.46 (66.68 kg, 165.10 cm) cb5 MDM: 06:54 Patient medically screened. 07:28 Data reviewed: vital signs, nurses notes. Data interpreted: Pulse oximetry: on 4L(s) kb per nasal canula, is 84 %. Interpretation: hypoxia. 08:03 Counseling: I had a detailed discussion with the patient and/or guardian regarding: the kb historical points, exam findings, and any diagnostic results supporting the discharge/admit diagnosis, lab results, radiology results, the need for further work-up and treatment in the hospital. 08:08 Physician consultation: Prince Shari ROGEL was called at 08:09, voicemail left, awaiting kb callback. 08:24 Physician consultation: Prince Shari ROGEL was contacted at 08:24, regarding admission, kb to the ICU, patient's condition, and will see patient in ED, wants pt in ICU. 07/22 06:54 Order name: Basic Metabolic Panel kb 07/22 06:54 Order name: CBC with Diff; Complete Time: 07:40 kb 07/22 06:54 Order name: LFT's kb 07/22 06:54 Order name: Magnesium kb 07/22 06:54 Order name: NT PRO-BNP kb 07/22 06:54 Order name: PT-INR; Complete Time: 07:40 kb 07/22 06:54 Order name: Troponin HS kb 07/22 06:54 Order name: XRAY Chest (1 view); Complete Time: 10:37 kb 07/22 06:54 Order name: COVID-19 SARS RT PCR (Document "Date of Onset" if Symptomatic); Complete kb Time: 07:59 07/22 06:54 Order name: BIPAP kb 07/22 08:28 Order name: C-Reactive Protein; Complete Time: 10:37 EDMS 07/22 09:42 Order name: ABG Arterial Blood Gas; Complete Time: 10:37 EDMS 07/22 06:54 Order name: EKG; Complete Time: 06:56 kb 07/22 06:54 Order name: Cardiac monitoring; Complete Time: 06:55 kb 07/22 06:54 Order name: EKG - Nurse/Tech; Complete Time: 08:09 kb 07/22 06:54 Order name: IV Saline Lock; Complete Time: 07:26 kb 07/22 06:54 Order name: Labs collected and sent; Complete Time: 07:26 kb 07/22 06:54 Order name: O2 Per Protocol; Complete Time: 06:55 kb 07/22 06:54 Order name: O2 Sat Monitoring; Complete Time: 06:55 kb Administered Medications: 07:24 Drug: Lasix (furosemide) 80 mg Route: IVP; Site: right hand; cb5 08:19 Drug: Rocephin (cefTRIAXone) 1 grams Route: IV; Rate: calculated rate; Site: right hand;cb5 08:35 Drug: Zithromax (azithromycin) 500 mg Route: IVPB; Infused Over: 1 hrs; Site: right cb5 hand; Disposition: 07/23 06:55 Co-signature as Attending Physician, José Miguel Lynn MD I agree with the assessment and rn plan of care. Attestation: The patient's history, exam findings, diagnostics, and a summary of any interventions or procedures was reviewed in detail with June DUNAWAY. Disposition Summary: 07/22/21 08:24 Hospitalization Ordered Hospitalization Status: Inpatient Admission kb Provider: Prince diego Mccarthy Condition: Fair kb Problem: new kb Symptoms: are unchanged kb Bed/Room Type: Standard kb Location: Telemetry/MedSurg (Inpatient)(07/22/21 18:33) dw Room Assignment: 413(07/22/21 18:33) dw Diagnosis - Pneumonia, unspecified organism kb - Coronavirus infection, unspecified kb - Hypoxia kb Forms: - Medication Reconciliation Form kb - SBAR form kb Signatures: Dispatcher [employer] EDMS June Croft FNP-C FNP-Ckb Woody, Diana RN RN Lori Black RN RN bb José Miguel Lynn MD MD rn Smirch, Shelby, RN RN ss Mariangel Lake RN RN cb5 Corrections: (The following items were deleted from the chart) 07/22 08:24 08:24 Telemetry/MedSurg (Inpatient) kb kb 08:24 08:24 kb kb 16:56 08:24 Intensive Care Unit kb ss 16:56 08:24 kb ss 18:33 16:56 [facility] ER HOLD ss dw 18:33 16:56 ERHOLD- ss dw
--- NOTE | 2021-07-22 08:25 | ER ---
Nurse's Notes [facility] Name: Margarita Dominique Age: 61 yrs Sex: Female : 1960 Arrival Date: 07/22/2021 Time: 06:53 Bed 19 Private MD: Diagnosis: Pneumonia, unspecified organism;Coronavirus infection, unspecified;Hypoxia Presentation: 07/22 06:54 Chief complaint: EMS states: they were toned out for report of pt with SOB pt was 87% bb on home O2 at 4 Lpm NC pt received dialysis on Thursday and was due today. Coronavirus screen: difficulty breathing, Client presents with at least one sign or symptom that may indicate coronavirus-19. Standard/surgical mask placed on the client. Ebola Screen: No symptoms or risks identified at this time. Initial Sepsis Screen: Does the patient meet any 2 criteria? No. Patient's initial sepsis screen is negative. Does the patient have a suspected source of infection? No. Patient's initial sepsis screen is negative. Risk Assessment: Do you want to hurt yourself or someone else? Patient reports no desire to harm self or others. Onset of symptoms was July 22, 2021. 06:54 Method Of Arrival: EMS: [facility] bb 06:54 Acuity: YEFRI 2 bb Historical: - Allergies: 06:58 No Known Allergies; bb - PMHx: 06:58 CVA; Diabetes - NIDDM; Dialysis; HEART FAILURE; Hypertension; Hypothyroidism; vitamin d bb deficiency; - Immunization history:: Adult Immunizations unknown, Moderna x 3. - Social history:: Smoking status: unknown. Screenin:10 Abuse screen: Denies threats or abuse. Denies injuries from another. Nutritional cb5 screening: No deficits noted. Tuberculosis screening: No symptoms or risk factors identified. Fall Risk None identified. Assessment: 07:10 General: Appears in no apparent distress. comfortable, well groomed, well developed, cb5 well nourished, Behavior is calm, cooperative, appropriate for age, quiet. Pain: Denies pain. Neuro: No deficits noted. Level of Consciousness is awake, alert, obeys commands, Oriented to person, place, time, situation, Appropriate for age. Cardiovascular: No deficits noted. Heart tones S1 S2. Respiratory: Breath sounds are clear bilaterally. Denies cough, labored breathing, Parent/caregiver reports the patient having low O2 sats report by son from patients monitor at home. O2 sats were 88-89%. GI: No deficits noted. : Parent/caregiver report the patient having Pt receives dialysis M,W,F. EENT: No deficits noted. Derm: No deficits noted. Musculoskeletal: No deficits noted. 09:42 Reassessment: Patient denies pain at this time. Patient states feeling better. cb5 Vital Signs: 06:54 BP 185 / 85; Pulse 96; Resp 20 S; Temp 97.1(O); Pulse Ox 88% on R/A; Weight 49.9 kg bb (R); Height 5 ft. 0 in. (152.40 cm) (R); 07:00 BP 196 / 80; Pulse 90; Resp 18; Temp 98.6; Pulse Ox 95% ; Weight 66.68 kg; Height 5 ft. cb5 5 in. (165.10 cm); Pain 0/10; 09:00 BP 155 / 78; Pulse 90; Resp 16; Temp 98.4; Pain 0/10; cb5 11:00 BP 181 / 62; Pulse 81; Resp 16; Pain 0/10; cb5 13:00 BP 174 / 63; Pulse 80; Resp 16; Pulse Ox 98% ; Pain 0/10; cb5 16:00 BP 164 / 56; Pulse 79; Resp 16; Pain 0/10; cb5 07:00 Body Mass Index 24.46 (66.68 kg, 165.10 cm) cb5 ED Course: 06:53 Patient arrived in ED. kb 06:54 June Croft FNP-C is [facility]. kb 06:54 Franklin Albarado MD is Attending Physician. kb 06:58 Triage completed. bb 06:58 Arm band placed on Patient placed in an exam room, on a stretcher, on oxygen, on bb monitoring analyst, on pulse oximetry, RT at bedside for placement of bipap. 07:09 Attending Physician role handed off by Franklin Albarado MD rn 07:09 José Miguel Lynn MD is Attending Physician. rn 07:10 Patient has correct armband on for positive identification. Placed in gown. Bed in low cb5 position. Call light in reach. Side rails up X2. 07:10 No provider procedures requiring assistance completed. cb5 07:24 Aleksandra, Mariangel, RN is Primary Nurse. cb5 07:25 XRAY Chest (1 view) Sent. cb5 07:26 Basic Metabolic Panel Sent. cb5 07:26 CBC with Diff Sent. cb5 07:26 LFT's Sent. cb5 07:26 Magnesium Sent. cb5 07:26 NT PRO-BNP Sent. cb5 07:26 PT-INR Sent. cb5 07:26 Troponin HS Sent. cb5 07:27 BIPAP Sent. cb5 07:30 XRAY Chest (1 view) In Process Unspecified. EDMS 08:09 Initial lab(s) drawn, by ED staff, sent to lab. EKG done, by ED staff, reviewed by noah DUNAWAY. 08:19 Magnesium Sent. cb5 08:23 Prince Mccarthy MD is Hospitalizing Provider. kb 08:35 C-Reactive Protein Sent. cb5 19:00 Report given to Dillan Barrientos cb5 19:37 Report given to Karin Alvarado RN. sf1 Administered Medications: 07:24 Drug: Lasix (furosemide) 80 mg Route: IVP; Site: right hand; cb5 08:19 Drug: Rocephin (cefTRIAXone) 1 grams Route: IV; Rate: calculated rate; Site: right hand;cb5 08:35 Drug: Zithromax (azithromycin) 500 mg Route: IVPB; Infused Over: 1 hrs; Site: right cb5 hand; Outcome: 08:24 Decision to Hospitalize by Provider. kb 19:37 Admitted to accompanied by nurse, Report called to Karin Alvarado RN sf1 19:37 Condition: stable 19:42 Patient left the ED. sf1 Signatures: Dispatcher [employer] EDDE June Croft FNP-C FNP-Ckb Ballard, Brenda, RN RN bb Nieto, Roman, MD MD rn Martinez, Maria Mariangel Phillips, RN Iliana Ayon RN RN sf1
[2021-07-22 09:37] LABS: Arterial Blood Carboxyhemoglob 0.8 % (0-1.5); Blood Gas Oxyhemoglobin 91.7 % (94-97); Blood O2 Saturation 93.7 % (92-98.5)
--- NOTE | 2021-07-22 09:47 | RAD REPORT ---
EXAM DESCRIPTION: RAD - Chest Single View - 07/22/2021 7:30 am CLINICAL HISTORY: DYSPNEA Chest pain. COMPARISON: Chest Pa And Lat (2 Views) dated 08/10/2020; Chest Pa And Lat (2 Views) dated 08/09/2020; Chest Single View dated 08/08/2020; Chest Single View dated 06/22/2020 FINDINGS: Portable technique limits examination quality. Extensive bilateral pulmonary opacities are present likely representing pneumonia or pulmonary edema. The heart is normal in size. Stent is present in the medial left arm.
--- NOTE | 2021-07-22 10:40 | P.HP ---
Certification for Inpatient Patient admitted to: Inpatient With expected LOS: >2 Midnights Practitioner: I am a practitioner with admitting privileges, knowledge of patient current condition, hospital course, and medical plan of care. Services: Services provided to patient in accordance with Admission requirements found in Title 42 Section 412.3 of the Code of Federal Regulations Patient History Date of Service: 07/22/21 Reason for admission: shortness of breath History of Present Illness: Patient is a 61 year old [place]ayan-speaking female with a known of HT, ESRD. She presents to the ER complaing of shortness of breath. Patient was reportedly found by son when this occurred. She was having difficulty breathing. Denies any fever, cough or chest pain. She arrived in the ER hemodynamically stable but in severe respiratory distress. She was placed on BIPAP which helped alleviate her symptoms. She tested positive for COVID 19. Her CXR showed extensive bilateral pulmonary disease tour sales representative of PNA. She received ceftriaxone and azithromycin. Allergies No Known Allergies Allergy (Verified 08/08/20 10:34) Home Medications: Amlodipine [Norvasc*] 10 mg PO DAILY 05/26/18 Aspirin [Aspirin EC 81 MG] 81 mg PO DAILY 05/26/18 Atorvastatin Calcium [Lipitor*] 40 mg PO BEDTIME 05/26/18 Levothyroxine [Synthroid*] 25 mcg PO [id number] 05/26/18 Clopidogrel Bisulfate [Plavix*] 75 mg PO DAILY #30 tablet 05/01/20 Ergocalciferol (Vitamin D2) [Vitamin D2] 50,000 unit PO DIRECTED 08/08/20 Furosemide 20 mg PO DAILY 08/08/20 Insulin -Regular Human [Novolin -R*] 12 unit SQ TIDWM 08/08/20 - Past Medical/Surgical History Diabetic: Yes -: HTN -: IDDM -: Hypothyroidism -: stroke X2 with weakness to L eye and poor L eye vision -: ESRD w/ dialysis -: Chronic diastolic congestive heart failure -: Vit D deficiency -: COVID-19 -: cardiac stent X1 -: cholecystectomy -: L Fistula -: R BKA Psychosocial/ Personal History: Patient lives at home with family - Family History Father -: Diabetes Mother -: Heart disease, Hypertension, Diabetes - Social History Alcohol use: No CD- Drugs: No Caffeine use: Yes Physical Examination - Physical Exam General: Moderate distress HEENT: Atraumatic, Normocephalic Neck: Supple Respiratory: Diminished, Other (bipap) Cardiovascular: No edema Neurological: Normal speech - Studies Laboratory Data (last 24 hrs) 07/22/21 07:18: PT 11.0, INR 0.96 07/22/21 07:18: WBC 15.80 H, Hgb 11.9 L, Hct 37.5, Plt Count 198 07/22/21 07:18: Sodium 137, Potassium 4.8, BUN 53 H, Creatinine 8.29 H*, Glucose 191 H, Magnesium OBSTETRICS/GYNECOLOGY NURSE, Total Bilirubin 0.3, AST 72 H, ALT 50, Alkaline Phosphatase 135 H Assessment and Plan - Problems (Diagnosis) (1) Acute hypoxemic respiratory failure due to COVID-19 Current Visit: Yes Status: Acute (2) COVID-19 Current Visit: No Status: Acute (3) CVA (cerebral vascular accident) Onset Date: 05/26/18 Current Visit: No Status: Acute (4) Congestive heart failure Onset Date: 05/26/18 Current Visit: No Status: Acute (5) DM2 (diabetes mellitus, type 2) Onset Date: 05/26/18 Current Visit: No Status: Acute (6) ESRD (end stage renal disease) Current Visit: No Status: Acute (7) HTN (hypertension) Onset Date: 05/26/18 Current Visit: No Status: Acute (8) Pneumonia due to COVID-19 virus Current Visit: No Status: Acute - Plan Assessment Patient is a 61 year old [place]ayan speaking female with a PMH of ESRD, HTN, CVA currently admitted with acute hypoxemic respiratory failure. She is currenlty on BIPAP. Tested positive for COVID 19. CXR with evidence of extensive bilateral PNA plan: Admit to ICU for BIPAP Start dexamethasone and multivitamins and zinc She is a poor candidate for Remdesivir due to ESRD Will Tx with a 5-day course of ceftriaxone and azithromycin VTE and GI ppx Monitor inflammatory markers daily ESRD Non-urgent consult placed to Nephrology for HD HTN Resumed on home anti-HTN regimen Hypothyroidism Resumed on levothyroxine - Advance Directives Does patient have a Living Will: No Does patient have a Durable POA for Healthcare: No
[2021-07-22] MEDS ORDERED: D50W 25 GM/50 ML SYRINGE IV PRN (10:42)
[2021-07-22] MEDS ORDERED: GLUCAGON 1 MG/VIAL IM PRN (10:42)
[2021-07-22] MEDS ORDERED: ASPIRIN EC 81 MG TAB PO SCH (10:42)
[2021-07-22] MEDS: AMLODIPINE 10 MG TAB PO SCH (10:42)
[2021-07-22] MEDS: CLOPIDOGREL 75 MG TABLET PO SCH (10:42)
[2021-07-22] MEDS: INSULIN -REGULAR HUMAN 50 UNIT/0.5 ML ML SQ SCH ×2 (12:00→17:00)
[2021-07-22 16:41] LABS: Magnesium 2.7
[2021-07-22] MEDS: ASCORBIC ACID 500 MG TABLET PO SCH (17:50)
[2021-07-22] MEDS: dexAMETHasone 10 MG/ML VIAL IV SCH ×2 (17:50→21:50)
[2021-07-22] MEDS: ZINC SULFATE 220 MG CAP PO SCH (17:50)
[2021-07-22] MEDS: THIAMINE HCL 100 MG TABLET PO SCH (17:50)
[2021-07-22] MEDS: VITAMIN D 1000 UNIT TAB PO SCH (17:50)
[2021-07-22] MEDS: HEPARIN 5000 UNIT/ML 1 ML VIAL SQ SCH (17:50)
[2021-07-22] MEDS: ATORVASTATIN 40 MG TAB PO SCH (21:50)
[2021-07-23] MEDS: HEPARIN 5000 UNIT/ML 1 ML VIAL SQ SCH ×3 (00:51→17:00)
[2021-07-23] MEDS: AMLODIPINE 10 MG TAB PO SCH (05:04)
[2021-07-23] MEDS: LEVOTHYROXINE SOD 0.025 MG TAB PO SCH (05:04)
--- NOTE | 2021-07-23 08:17 | EKG ---
Test Date: 2021-07-22 Test Time: 07:33:42 Sonar Subsystem Equipment Operator: MEASUREMENT RESULTS: Intervals: Rate: 96 WY: 158 QRSD: 98 QT: 376 QTc: 475 [place]: P: 89 WY: 158 QRS: 66 T: 96 INTERPRETIVE STATEMENTS: Normal sinus rhythm Possible Left atrial enlargement Nonspecific T wave abnormality Abnormal ECG Compared to ECG 08/08/2020 01:22:06 T-wave abnormality now present Sinus tachycardia no longer present Myocardial infarct finding no longer present ST (T wave) deviation no longer present Possible ischemia no longer present Electronically Signed On 07-23-21 08:14:02 SENIOR SQL SERVER DEVELOPER by Bishop Sheehan
[2021-07-23 08:39] LABS: Absolute Lymphocytes (CBC) 0.9 K/uL (0.7-4.9); Hematocrit 35.8 % (36.0-45.0); Lymphocytes % 9.7 % (15.3-44.8); MPV 9.7 fL (7.6-11.3); RBC Red Blood Cell Count 4.14 M/uL (3.86-4.86)
[2021-07-23] MEDS: DULERA 200/5 (MOMETASONE/FORMOTEROL) INHALER IH SCH ×2 (09:00→21:00)
[2021-07-23] MEDS: CEFTRIAXONE 1,000 MG in NA CHLORIDE 0.9% 50 ML IVPB SCH (09:00)
[2021-07-23] MEDS: INSULIN -REGULAR HUMAN 50 UNIT/0.5 ML ML SQ SCH ×3 (09:25→16:47)
[2021-07-23] MEDS: ASCORBIC ACID 500 MG TABLET PO SCH (09:27)
[2021-07-23] MEDS: ZINC SULFATE 220 MG CAP PO SCH (09:27)
[2021-07-23] MEDS: FUROSEMIDE 20 MG TABLET PO SCH (09:27)
[2021-07-23] MEDS: CLOPIDOGREL 75 MG TABLET PO SCH (09:29)
[2021-07-23] MEDS: VITAMIN D 1000 UNIT TAB PO SCH (09:29)
[2021-07-23] MEDS: AZITHROMYCIN IV 500 MG in NA CHLORIDE 0.9% 250 ML IVPB SCH (09:29)
[2021-07-23] MEDS: THIAMINE HCL 100 MG TABLET PO SCH (09:29)
[2021-07-23] MEDS: dexAMETHasone 10 MG/ML VIAL IV SCH ×2 (09:35→21:45)
[2021-07-23 09:36] LABS: Blood Morphology Comment NOT SEEN (NOT SEEN); Platelet Estimate ADEQ; White Blood Cell Scan OK (OK)
[2021-07-23] MEDS ORDERED: NA CHLORIDE 0.9% 250 ML ONE (10:01)
--- NOTE | 2021-07-23 13:13 | CON ---
Date of Consultation: 07/23/2021 Reason For Consultation: Over volume, fluid management, end-stage renal disease. History Of Present Illness: This is a 61-year-old female, well known to me from the dialysis with significant past medical history of CAD, PAD status post angioplasty, status post below-knee amputation, end-stage renal disease on hemodialysis at [facility], diabetes, hypertension, hyperlipidemia. The patient came to the hospital complaining from shortness of breath, saturation was down to the 60s. Primary workup showed over volume with COVID positive. For that reason, the patient was admitted and we have been consulted. The patient denied cough. Denied any fever or chills. Past Medical History: Includes; 1. Diabetes complicated with neuropathy and nephropathy. 2. Hypothyroidism. 3. CVA. 4. Hypertension. 5. End-stage renal disease, on hemodialysis. 6. CAD, status post PTCA. 7. PAD, status post below-knee amputation. Past Surgical History: Includes; 1. Cholecystectomy. 2. AV fistula creation. 3. Right below-knee amputation. Allergies: NO KNOWN DRUG ALLERGIES. Family History: Positive for diabetes, hypertension, CAD. Social History: Denied smoking. Denied drinking. Denied drugs abuse. Review of Systems: Head and Neck: No red eye. No ear pain. GI: No nausea. No vomiting. : No polyuria. No dysuria. No hematuria. Prison Keeper: No vaginal discharge. Respiratory: Has shortness of breath. Has cough without any sputum. Cardiovascular: No chest pain. Endocrine: No polydipsia. Skin: No rash. Neuro: Has neuropathy. Musculoskeletal: No joint pain. Physical Examination: General: When I saw the patient, the patient had dialysis yesterday. We managed to remove 2.5 L. Vital Signs: Blood pressure of 175/72, pulse of 86, afebrile. Chest: Crackles bilateral. Heart: S1, S2. Regular. Abdomen: Soft, nontender. Extremity: Below-knee amputation. Neurologic: Alert. No focality. Laboratory Data: WBC 9.5, H and H 11.6/35.8. Sodium 137, potassium 4.8, bicarb 27, BUN 53, creatinine 8.2, calcium 9.4, albumin 3.5. Current Medications: The patient on include; 1. Amlodipine. 2. Vitamin C. 3. Atorvastatin. 4. Cholecalciferol. 5. Plavix. 6. Lasix. 7. Ceftriaxone. 8. Thiamin. 9. Zinc sulfate. Assessment And Plan: 1. End-stage renal disease, over volume, status post dialysis yesterday, currently normal volume, on room air. We will continue to monitor the patient, back the patient on her regular schedule. 2. Hypertension, controlled, optimal. We will utilize blood pressure for ultrafiltration. 3. Secondary hyperparathyroidism, stable. 4. Anemia of chronic kidney disease. No need for PRASHANT. 5. Congestive heart failure with exacerbation, status post ultrafiltration, recovered. 6. Respiratory failure, multifactorial, secondary to COVID pneumonia/congestive heart failure exacerbation. The patient currently on room air, status post dialysis yesterday, recovering very well. 7. COVID pneumonia as by primary. Time spent examining the patient [id number] , reviewing radiology and laboratory data, placing order discussing the case with the steam locomotive firer/fireman including nursing discussing the case with the hospitalist 65-minute. KEITH Voice ID: [id number] Report ID: [id number] SIMBA
--- NOTE | 2021-07-23 13:49 | P.PN ---
Subjective Date of Service: 07/23/21 Chief Complaint: shortness of breath Subjective: Improving (Weaned off BiPAP and currently on 2 L of oxygen via nasal cannula.) Physical Examination - Vital Signs Temperature: 98.2 F Blood Pressure: 159/71 Pulse: 99 Respirations: 16 Pulse Ox (%): 98 - Physical Exam General: Alert, In no apparent distress HEENT: Atraumatic, Normocephalic Respiratory: Normal air movement Cardiovascular: Normal pulses, Regular rate/rhythm, Normal S1 S2, Other (Left upper extremity AV fistula) Musculoskeletal: No clubbing, No swelling, No contractures Neurological: Normal speech, Cranial nerves 3-12 intact, Normal affect - Studies Laboratory Data (last 24 hrs) 07/22/21 07:18: Magnesium 2.7 Assessment & Plan - Problems (Diagnosis) (1) Acute hypoxemic respiratory failure due to COVID-19 Current Visit: Yes Status: Acute (2) COVID-19 Current Visit: No Status: Acute (3) CVA (cerebral vascular accident) Onset Date: 05/26/18 Current Visit: No Status: Acute (4) Congestive heart failure Onset Date: 05/26/18 Current Visit: No Status: Acute (5) DM2 (diabetes mellitus, type 2) Onset Date: 05/26/18 Current Visit: No Status: Acute (6) ESRD (end stage renal disease) Current Visit: No Status: Acute (7) HTN (hypertension) Onset Date: 05/26/18 Current Visit: No Status: Acute (8) Pneumonia due to COVID-19 virus Current Visit: No Status: Acute Physician Review Additional Text: Assessment Patient is a 61-year-old Setswana-speaking female with a known past medical history of hypertension and ESRD and possibly chronic respiratory failure. She presented with shortness of breath. She has tested positive for Covid and was found to be volume overloaded. She required BiPAP on admission. She has done well over the past 24 hours and was weaned off BiPAP. Acute on chronic hypoxemic respiratory failure COVID-19 pneumonia Decompensated CHF CAD PVD S/P R BKA ESRD Hypertension Plan: Continue current management with systemic steroids, multivitamins and zinc Dialysis as per nephrology Blood pressure control Continue DAPT Patient will most likely be discharged tomorrow. She has home oxygen.
[2021-07-23] MEDS: ATORVASTATIN 40 MG TAB PO SCH (21:54)
[2021-07-24] MEDS: HEPARIN 5000 UNIT/ML 1 ML VIAL SQ SCH ×2 (01:12→08:46)
[2021-07-24 07:08] LABS: Absolute Lymphocytes (CBC) 1.3 K/uL (0.7-4.9); Lymphocytes % 6.8 % (15.3-44.8); MPV 10.3 fL (7.6-11.3); RBC Red Blood Cell Count 3.82 M/uL (3.86-4.86)
--- NOTE | 2021-07-24 07:29 | RAD REPORT ---
EXAM DESCRIPTION: RAD - Chest Single View - 07/24/2021 6:36 am CLINICAL HISTORY: chest pain COMPARISON: Chest Single View dated 07/22/2021; Chest Pa And Lat (2 Views) dated 08/10/2020; Chest Pa And Lat (2 Views) dated 08/09/2020; Chest Single View dated 08/08/2020 FINDINGS: Lines: None. Lungs: Widespread bilateral airspace disease with mild improvement in aeration at the right lung base . Pleural: No significant pleural effusions or pneumothorax. Cardiac: Enlarged cardiac silhouette. Bones: No acute fractures. Other: Vascular stent in the left upper extremity. IMPRESSION: Widespread bilateral airspace disease which may multifocal pneumonia and/or edema with s light improved aeration of the right lung base.
[2021-07-24 07:39] LABS: Potassium 5.1 mmol/L (3.5-5.1)
[2021-07-24] MEDS: INSULIN -REGULAR HUMAN 50 UNIT/0.5 ML ML SQ SCH ×5 (08:40→22:26)
[2021-07-24] MEDS: LEVOTHYROXINE SOD 0.025 MG TAB PO SCH (08:41)
[2021-07-24] MEDS: VITAMIN D 1000 UNIT TAB PO SCH (08:41)
[2021-07-24] MEDS: AMLODIPINE 10 MG TAB PO SCH (08:41)
[2021-07-24] MEDS: ASCORBIC ACID 500 MG TABLET PO SCH (08:42)
[2021-07-24] MEDS: FUROSEMIDE 20 MG TABLET PO SCH (08:42)
[2021-07-24] MEDS: THIAMINE HCL 100 MG TABLET PO SCH (08:42)
[2021-07-24] MEDS: CLOPIDOGREL 75 MG TABLET PO SCH (08:42)
[2021-07-24] MEDS: ZINC SULFATE 220 MG CAP PO SCH (08:42)
[2021-07-24] MEDS: AZITHROMYCIN IV 500 MG in NA CHLORIDE 0.9% 250 ML IVPB SCH (08:44)
[2021-07-24] MEDS: CEFTRIAXONE 1,000 MG in NA CHLORIDE 0.9% 50 ML IVPB SCH (08:45)
[2021-07-24] MEDS: DULERA 200/5 (MOMETASONE/FORMOTEROL) INHALER IH SCH ×2 (09:00→21:00)
[2021-07-24] MEDS ORDERED: HYDROMORPHONE HCL 1 MG/ML INJ IV PRN (09:27)
[2021-07-24] MEDS: dexAMETHasone 10 MG/ML VIAL IV SCH ×2 (09:52→22:25)
[2021-07-24 11:27] LABS: CKMB Creatine Kinase MB 3.7 ng/mL (1.0-3.6)
[2021-07-24 11:33] LABS: Troponin High Sensitivity 1034.5 pg/mL (<58.9)
[2021-07-24] MEDS ORDERED: GLUCAGON 1 MG/VIAL IM PRN (12:45)
[2021-07-24] MEDS ORDERED: D50W 25 GM/50 ML SYRINGE IV PRN (12:45)
--- NOTE | 2021-07-24 13:03 | EKG ---
Test Date: 2021-07-24 Test Time: 06:19:31 Ironworker: RT-O MEASUREMENT RESULTS: Intervals: Rate: 99 NE: 146 QRSD: 98 QT: 380 QTc: 487 [place]: P: 75 NE: 146 QRS: 37 T: 114 INTERPRETIVE STATEMENTS: Normal sinus rhythm Anterior infarct, age undetermined Abnormal ECG Compared to ECG 07/22/2021 07:33:42 Myocardial infarct finding now present T-wave abnormality no longer present Electronically Signed On 07-24-21 13:02:49 CITY PLANT SUPERVISOR by Bishop Sheehan
--- NOTE | 2021-07-24 13:19 | PN ---
Date of Progress Note: 07/24/2021 Subjective: The patient was admitted with COVID pneumonia. The patient yesterday was feeling better. No shortness of breath. Today, the patient developing chest pain, left-sided, radiating to her shoulder, nausea without any vomiting, and started having some cough with bloody sputum. Physical Examination: Vital Signs: Blood pressure 177/79, pulse of 108. Chest: Crackles bilateral. Heart: S1, S2. Systolic murmur. Abdomen: Soft, nontender. Extremity: Below-knee amputation. Laboratory Data: WBC 19, H and H 10.7/33, platelet 174. Sodium 135, potassium 5.1, bicarb 20, BUN 76, creatinine 7.9, calcium 9.3. Current Medications: The patient on include azithromycin, ceftriaxone, Plavix, amlodipine 10 mg, Lasix, levothyroxine, cholecalciferol. Assessment And Plan: 1. End-stage renal disease with over volume. I will take the patient for urgent dialysis with sequential today and we will arrange for another dialysis tomorrow and we will monitor. 2. Hypertension, controlled, optimal. We will utilize blood pressure for more ultrafiltration. 3. Secondary hyperparathyroidism. Continue current treatment. 4. Anemia of chronic kidney disease. Resume PRASHANT. 5. Chest pain, on vascular path Patient will be sent for serial cardiac enzyme and EKG. I agree with CT with PE protocol, but we are going to dialyze the patient today as the patient really hypoxemic with respiratory distress. Then, we will do another session of dialysis tomorrow after the contrast. discussed with cardiology agree on plan plan for cath tomorrow or thursday , start full USA tx , spoke with hospitalist too 6. COVID pneumonia as by primary. time spend exam the patient face to face reviewing the data lab and radiology placing order , discussing the case with nursing staff and discussing with hospitalist and cardiology 35 min RAQUEL/EDOUARD Voice ID: [id number] Report ID: [id number]
--- NOTE | 2021-07-24 14:04 | P.PN ---
Subjective Date of Service: 07/24/21 Chief Complaint: shortness of breath Subjective: Worsening (Having excruciating chest pain radiating to the back of the left arm. She is also hypoxic. Her O2 sat dropped to 85% while on supplemental oxygen. She is pending to have a CT angio of his chest. Her at hs troponin bumped from 43 through more than 1000.) Physical Examination - Vital Signs Temperature: 98.0 F Blood Pressure: 177/79 Pulse: 108 Respirations: 2 Pulse Ox (%): 95 - Physical Exam General: Severe distress HEENT: Atraumatic, Normocephalic Respiratory: Other (Labored breathing) Cardiovascular: No edema, Regular rate/rhythm, Normal S1 S2, Other (AV fistula in place) Neurological: Normal speech, Normal reflexes 2+ Assessment And Plan - Current Problems (Diagnosis) (1) Acute hypoxemic respiratory failure due to COVID-19 Current Visit: Yes Status: Acute (2) COVID-19 Current Visit: No Status: Acute (3) CVA (cerebral vascular accident) Onset Date: 05/26/18 Current Visit: No Status: Acute (4) Congestive heart failure Onset Date: 05/26/18 Current Visit: No Status: Acute (5) DM2 (diabetes mellitus, type 2) Onset Date: 05/26/18 Current Visit: No Status: Acute (6) ESRD (end stage renal disease) Current Visit: No Status: Acute (7) HTN (hypertension) Onset Date: 05/26/18 Current Visit: No Status: Acute (8) Pneumonia due to COVID-19 virus Current Visit: No Status: Acute - Plan Assessment Patient is a 61 year old Yoruba speaking female with a PMH of ESRD, HTN, CVA currently admitted with acute hypoxemic respiratory failure. She is currenlty on BIPAP. Tested positive for COVID 19. CXR with evidence of extensive bilateral PNA plan: Admit to ICU for BIPAP Start dexamethasone and multivitamins and zinc She is a poor candidate for Remdesivir due to ESRD Will Tx with a 5-day course of ceftriaxone and azithromycin VTE and GI ppx Monitor inflammatory markers daily ESRD Non-urgent consult placed to Nephrology for HD HTN Resumed on home anti-HTN regimen Hypothyroidism Resumed on levothyroxine Physician Review Additional Text: Assessment Patient is a 61-year-old Yoruba-speaking female with a known past medical history of hypertension and ESRD and possibly chronic respiratory failure. She presented with shortness of breath. She has tested positive for Covid and was found to be volume overloaded as well. She required BiPAP on admission. She has done well over the past 24 hours and was weaned off BiPAP. On 07/24 she developed excruciating chest pain. Troponin was concerning for NSTEMI. Cardiology was consulted. Acute on chronic hypoxemic respiratory failure COVID-19 pneumonia Decompensated CHF NSTEMI CAD PVD S/P R BKA ESRD Hypertension Plan: Start patient on heparin infusion There is a CT chest angio pending to rule out PE Cardiology has been consulted as well Today are planning for catheter tomorrow or the following day. Continue current management with systemic steroids, multivitamins and zinc Continue dialysis as per nephrology Blood pressure control Continue DAPT Patient will need to stay a few more days
[2021-07-24 15:04] VITALS: BMI 18.7
[2021-07-24 15:19] LABS: Absolute Lymphocytes (CBC) 1.2 K/uL (0.7-4.9); Hematocrit 37.9 % (36.0-45.0); Lymphocytes % 7.6 % (15.3-44.8); MPV 10.7 fL (7.6-11.3); RBC Red Blood Cell Count 4.35 M/uL (3.86-4.86)
--- NOTE | 2021-07-24 15:53 | RAD REPORT ---
EXAM DESCRIPTION: CT - Chest Angio - 07/24/2021 3:18 pm CLINICAL HISTORY: Hypoxia, leukocytosis, dialysis patient COMPARISON: Chest For Pe Angio dated 04/30/2020; Chest Single View dated 07/24/2021 TECHNIQUE: Dynamically enhanced 3 mm thick images of the chest were obtained during administration o f approximately 150mL Isovue 370 IV contrast. Coronal and oblique MIP reconstruction images were gene rated and reviewed. Exam utilizes a protocol to evaluate the pulmonary arterial tree. All CT scans are performed using dose optimization technique as appropriate and may include automated exposure control or mA/KV adjustment according to patient size. FINDINGS: No pulmonary emboli are identified. The aorta as imaged shows no acute or suspicious finding. No pericardial thickening or effusion. Extensive airspace opacification is present throughout the bilateral lobes with sparing of each super ior segment. Bilateral upper lobes and right middle lobe are clear of any significant disease. Small right pleural effusion is present. No pneumothorax or pleural based mass. The lung parenchymal opacif ication may well be residual edema in a dialysis patient. Bilateral pneumonia is unlikely but needs c orrelation with clinical presentation. No focal lung parenchymal mass or cavitation seen. No mediastinal or hilar suspicious masses. No chest wall masses or abnormal axillary lymphadenopathy. IMPRESSION: No pulmonary emboli identified. Significant bilateral lower lobe airspace opacification suspected to be remnant pulmonary edema from volume overload in this dialysis patient. Bilateral lung base pneumonia etiology is unlikely. No associated mass or cavitation seen.
[2021-07-24] MEDS ORDERED: HEPARIN/D5W 25,000 UNIT/500 ML BAG IV SCH (16:00)
[2021-07-24 16:09] LABS: Protime INR 0.95
[2021-07-24 17:52] LABS: Troponin High Sensitivity 9917.5 pg/mL (<58.9)
[2021-07-24 18:01] LABS: CKMB Creatine Kinase MB 12.7 ng/mL (1.0-3.6)
[2021-07-24 21:47] LABS: CKMB Creatine Kinase MB 13.1 ng/mL (1.0-3.6); Troponin High Sensitivity 10237.1 pg/mL (<58.9)
[2021-07-24] MEDS: ATORVASTATIN 40 MG TAB PO SCH (22:25)
[2021-07-25] MEDS: LEVOTHYROXINE SOD 0.025 MG TAB PO SCH (06:17)
[2021-07-25 06:36] LABS: MPV 10.1 fL (7.6-11.3)
--- NOTE | 2021-07-25 08:33 | ECHO ---
HEIGHT: 5 ft 5 in WEIGHT: 112 lb 6.4 oz DATE OF STUDY: 07/24/[address]: Bishop Sheehan MD 2-DIMENSIONAL: YES M.MODE: YES DOPPLER: YES COLOR FLOW: YES TDS: NO PORTABLE: NO DEFINITY: NO BUBBLE STUDY: NO DIAGNOSIS: CHEST PAIN, ELEVATED TROPONIN CARDIAC HISTORY: CATHERIZATION: NO SURGERY: NO PROSTHETIC VALVE: NO PACEMAKER: NO MEASUREMENTS (cm) DIASTOLIC (NORMALS) SYSTOLIC (NORMALS) IVSd 1.1 (0.6-1.2) LA Diam 3.9 (1.9-4.0) LVEF 42% LVIDd 4.1 (3.5-5.7) LVIDs 3.2 (2.0-3.5) %FS 21% LVPWd 1.1 (0.6-1.2) Ao Diam 2.1 (2.0-3.7) 2 DIMENSIONAL ASSESSMENT: RIGHT ATRIUM: NORMAL LEFT ATRIUM: NORMAL RIGHT VENTRICLE: NORMAL LEFT VENTRICLE: NORMAL SIZE TRICUSPID VALVE: NORMAL MITRAL VALVE: NORMAL PULMONIC VALVE: NORMAL AORTIC VALVE: NORMAL PERICARDIAL EFFUSION: TRACE AORTIC ROOT: NORMAL LEFT VENTRICULAR WALL MOTION: MILD GLOBAL HYPOKINESIS. DOPPLER/COLOR FLOW: MILD MITRAL AND TRICUSPID REGURGITATION. COMMENTS: MILD MITRAL AND TRICUSPID REGURGITATION. MILD GLOBAL HYPOKINESIS. EJECTION FRACTION 40-45%. TRACE OF PERICARDIAL EFFUSION. TECHNOLOGIST: CRUZ NIETO
[2021-07-25 08:45] LABS: Absolute Lymphocytes (CBC) 0.7 K/uL (0.7-4.9); Hematocrit 33.7 % (36.0-45.0); Lymphocytes % 5.2 % (15.3-44.8); MPV 10.7 fL (7.6-11.3); RBC Red Blood Cell Count 3.89 M/uL (3.86-4.86)
[2021-07-25] MEDS: INSULIN -REGULAR HUMAN 50 UNIT/0.5 ML ML SQ SCH ×4 (08:48→21:00)
[2021-07-25] MEDS: CEFTRIAXONE 1,000 MG in NA CHLORIDE 0.9% 50 ML IVPB SCH (08:49)
[2021-07-25] MEDS: AZITHROMYCIN IV 500 MG in NA CHLORIDE 0.9% 250 ML IVPB SCH (08:49)
[2021-07-25] MEDS: dexAMETHasone 10 MG/ML VIAL IV SCH (08:50)
[2021-07-25] MEDS: THIAMINE HCL 100 MG TABLET PO SCH (08:50)
[2021-07-25] MEDS: ZINC SULFATE 220 MG CAP PO SCH (08:50)
[2021-07-25] MEDS: FUROSEMIDE 20 MG TABLET PO SCH (08:50)
[2021-07-25] MEDS: AMLODIPINE 10 MG TAB PO SCH (08:51)
[2021-07-25] MEDS: ASCORBIC ACID 500 MG TABLET PO SCH (08:51)
[2021-07-25] MEDS: VITAMIN D 1000 UNIT TAB PO SCH (08:51)
[2021-07-25] MEDS: CLOPIDOGREL 75 MG TABLET PO SCH (08:52)
[2021-07-25] MEDS: DULERA 200/5 (MOMETASONE/FORMOTEROL) INHALER IH SCH ×2 (09:00→21:00)
--- NOTE | 2021-07-25 12:10 | PN ---
Date of Progress Note: 07/25/2021 Subjective: The patient was admitted with COVID pneumonia. The patient had unstable angina, congest carmen heart failure. Yesterday, we had to do urgent dialysis with sequential. The patient seen by Ghassan alatorre, plan for cardiac cath tomorrow. Physical Examination: Vital Signs: Blood pressure 152/67, pulse of 88, afebrile. Chest: Faint rales bilateral base. Heart: S1, S2. Systolic murmur. Abdomen: Soft, nontender. Extremity: Below-knee amputation. Laboratory Data: WBC 13.3, H and H 10.5/33.7. Sodium 135, potassium 5.1, bicarb 20, BUN 76, creatin ine 7.9, calcium 9.3. Troponin is elevated with CK-MB. Current Medications: The patient on include; 1.Azithromycin. 2.Ceftriaxone. 3.Plavix. 4.Amlodipine 10 mg. 5.Lasix. 6.Dexamethasone. 7.Cholecalciferol. 8.Vitamin C. 9.Heparin drip. Assessment And Plan: 1.End-stage renal disease. We will arrange for dialysis today and we will monitor the patient. 2.Over volume, status post dialysis, currently normal volume. Continue current treatment. 3.Congestive heart failure as above. 4.Coronary artery disease with unstable angina, on heparin drip. We will follow up with Cardiology, plan for cardiac cath tomorrow. 5.COVID pneumonia as by primary. 6.Hyperkalemia, status post dialysis, resolved. RAQUEL/EDOUARD Voice ID: [id number] Report ID: [id number]
[2021-07-25] MEDS ORDERED: SODIUM CHLORIDE 0.9% 10ML INJ IV PRN (12:26)
--- NOTE | 2021-07-25 12:26 | P.PN ---
Subjective Date of Service: 07/25/21 Chief Complaint: shortness of breath Subjective: Improving (Pateint is doing well. She has been weaned off O2. Enjoying breakfast w/o cardiopulmonary distress) Physical Examination - Vital Signs Temperature: 97.6 F Blood Pressure: 152/65 Pulse: 88 Respirations: 18 Pulse Ox (%): 96 - Physical Exam General: In no apparent distress, Cooperative HEENT: Atraumatic, Normocephalic Cardiovascular: No edema, Other (LUE AV fistula) Musculoskeletal: No clubbing, No swelling, No contractures Neurological: Normal speech, Normal affect Assessment And Plan - Current Problems (Diagnosis) (1) Acute hypoxemic respiratory failure due to COVID-19 Current Visit: Yes Status: Acute (2) COVID-19 Current Visit: No Status: Acute (3) CVA (cerebral vascular accident) Onset Date: 05/26/18 Current Visit: No Status: Acute (4) Congestive heart failure Onset Date: 05/26/18 Current Visit: No Status: Acute (5) DM2 (diabetes mellitus, type 2) Onset Date: 05/26/18 Current Visit: No Status: Acute (6) ESRD (end stage renal disease) Current Visit: No Status: Acute (7) HTN (hypertension) Onset Date: 05/26/18 Current Visit: No Status: Acute (8) Pneumonia due to COVID-19 virus Current Visit: No Status: Acute Physician Review Additional Text: Assessment Patient is a 61-year-old East Timorese-speaking female with a known past medical history of hypertension and ESRD and possibly chronic respiratory failure. She presented with shortness of breath. She has tested positive for Covid and was found to be volume overloaded as well. She required BiPAP on admission. She has done well with diuresis and COVID regimen. She is currenlty on room air. On 07/24 she developed excruciating chest pain. Troponin was concerning for NSTEMI. Cardiology was consulted. Acute on chronic hypoxemic respiratory failure COVID-19 pneumonia Decompensated CHF NSTEMI CAD PVD S/P R BKA ESRD Hypertension Plan: Continue heparin infusion NPO after midnight for coronary angiogram tomorrow Respiratory status is back to baseline. Will decrease dose of dexamethasone. Continue multivitamins Will add GI ppx given steroid/heparin drip Continue dialysis as per nephrology Blood pressure control Continue DAPT
[2021-07-25] MEDS: PANTOPRAZOLE 40 MG INJ IVP SCH (15:30)
[2021-07-25] MEDS ORDERED: NA CHLORIDE 0.9% 250 ML ONE (16:42)
[2021-07-25] MEDS: ATORVASTATIN 40 MG TAB PO SCH (21:00)
[2021-07-26 01:51] LABS: MPV 10.8 fL (7.6-11.3)
[2021-07-26 02:13] LABS: Albumin 2.9 g/dL (3.4-5.0); Phosphorus 4.9 mg/dL (2.5-4.9); Potassium 4.2 mmol/L (3.5-5.1)
[2021-07-26 02:24] LABS: Platelets, Giant FEW
[2021-07-26] MEDS: INSULIN -REGULAR HUMAN 50 UNIT/0.5 ML ML SQ SCH ×5 (02:29→20:06)
[2021-07-26] MEDS ORDERED: INSULIN -REGULAR HUMAN 50 UNIT/0.5 ML ML IV ONE (02:30)
[2021-07-26] MEDS ORDERED: DIPHENHYDRAMINE 25 MG TAB/CAP PO ONE (02:37)
[2021-07-26] MEDS: CLOPIDOGREL 75 MG TABLET PO SCH (05:01)
[2021-07-26] MEDS: LEVOTHYROXINE SOD 0.025 MG TAB PO SCH (05:01)
[2021-07-26] MEDS: AMLODIPINE 10 MG TAB PO SCH (05:01)
[2021-07-26 05:05] LABS: HBsAG Nonreactive (Nonreactive)
[2021-07-26] MEDS ORDERED: NA CHLORIDE 0.9% 500 ML ONE ×2 (05:42→06:44)
--- NOTE | 2021-07-26 05:43 | P.PN ---
Subjective Date of Service: 07/26/21 Chief Complaint: shortness of breath Subjective: No new changes Physical Examination - Vital Signs Temperature: 98.2 F Blood Pressure: 152/68 Pulse: 85 Respirations: 18 Pulse Ox (%): 98 - Physical Exam General: Other (appears as her stated age) HEENT: Atraumatic, Normocephalic Neck: Supple, JVD not distended Respiratory: Other (symmetric chest expansion) Cardiovascular: No rubs, No murmurs Gastrointestinal: Soft and benign, No guarding Musculoskeletal: No clubbing Integumentary: No warmth Neurological: Normal tone Urinary: Other (no bladder distention) External genitalia: Deferred Rectal: Deferred Assessment And Plan - Plan 1. End-stage renal disease on outpt HD MWF at [facility]. EDW 53.5 kgs. HD access LA AVF. HD received yesterday. Next HD tomorrow. Continue HD TTS sked while in house. Nephro-oleksandr po daily. Monitor renal panel. 2. Congestive heart failure. HD as above 3. Coronary artery disease with unstable angina. [facility] on 07/26/21. 4. COVID pneumonia. Mngt per primary team. 5. Anemia. H/H at goal. Monitor. 6. Renal osteodystrophy. Corrected serum calcium and phosphorus levels at goal. Monitor.
[2021-07-26] MEDS ORDERED: HEPA 1000U/500MLS 1,000 UNIT/500 ML BAG IV ONE (06:41)
[2021-07-26] MEDS ORDERED: LIDOCAINE 1% 20 ML MDV ONE (06:42)
[2021-07-26] MEDS ORDERED: MIDAZOLAM HCL 2 MG/2 ML INJ ONE (06:42)
[2021-07-26] MEDS ORDERED: FENTANYL CITR 100 MCG/2 ML ONE (06:42)
[2021-07-26] MEDS ORDERED: ATROPINE SULF 1 MG/10 ML SYR IV ONE (06:43)
[2021-07-26] MEDS ORDERED: NA CHLORIDE 0.9% 0 ML ONE (06:43)
[2021-07-26] MEDS ORDERED: HYDRALAZINE HCL 20 MG/ML VIAL ONE (07:36)
--- NOTE | 2021-07-26 08:49 | OP ---
Date of Procedure: 07/26/2021 Surgeon: Bishop Sheehan MD Technical Aid: Ms. Vianca Luz. History: Admitted to Dr. Bustamante on 07/22/2021. Had a [id number] myocardial infarction. She i s a dialysis patient. Positive for COVID. Brought to the paving and surfacing labourer today on 08/15/2021, underwent a left heart catheterization with selective coronary arteriogram. Indication: non-STEMI. Procedure In Detail: Ms. Park was brought to the paving and surfacing labourer as an inpatient, prepped and draped in the routine sterile fashion. Given Versed and fentanyl for sedation. A 6-Hungarian sheath introduced i n the right common femoral artery successfully using the Seldinger technique, 10 cc Xylocaine. Angio graphy in the groin was normal. Angio-Seal was used to close the case. Lucie catheter left and ri ght were used to cannulate the left main and right main respectively. The left main was normal. LAD was normal. She had a 50% second diagonal, 40% circumflex proximal. She had what appeared to be 10 0% occlusion of her ramus within multiple stents. The RCA was completely occluded at mid level with collaterals from the LAD to the RCA. There were no complications. Blood Loss: 10 cc. Postoperative Diagnoses: Severe coronary artery disease, severe hypertension. The patient did recei ve 10 mg of hydralazine IV for pressure of 190. We will continue medical therapy. Anesthesia: Total conscious sedation was 45 minutes. Disposition: The patient will go home today and follow up with me in the office in 2 weeks. NB/MODL Voice ID: [id number] Report ID: [id number]
[2021-07-26] MEDS: ZINC SULFATE 220 MG CAP PO SCH (09:00)
[2021-07-26] MEDS: FUROSEMIDE 20 MG TABLET PO SCH (09:00)
[2021-07-26] MEDS: THIAMINE HCL 100 MG TABLET PO SCH (09:00)
[2021-07-26] MEDS: VITAMIN D 1000 UNIT TAB PO SCH (09:00)
[2021-07-26] MEDS: DULERA 200/5 (MOMETASONE/FORMOTEROL) INHALER IH SCH ×2 (09:00→20:06)
[2021-07-26] MEDS: PANTOPRAZOLE 40 MG INJ IVP SCH ×2 (09:00→11:23)
[2021-07-26] MEDS: dexAMETHasone 10 MG/ML VIAL IV SCH (09:00)
[2021-07-26] MEDS: ASCORBIC ACID 500 MG TABLET PO SCH (09:00)
[2021-07-26] MEDS: CEFTRIAXONE 1,000 MG in NA CHLORIDE 0.9% 50 ML IVPB SCH (11:23)
[2021-07-26] MEDS: AZITHROMYCIN IV 500 MG in NA CHLORIDE 0.9% 250 ML IVPB SCH (11:23)
--- NOTE | 2021-07-26 14:53 | P.PN ---
Subjective Date of Service: 07/26/21 Chief Complaint: shortness of breath Subjective: Improving (On angiogram for NSTEMI. Seen this morning after her procedure. She was slightly drowsy.) Physical Examination - Vital Signs Temperature: 98.3 F Blood Pressure: 144/61 Pulse: 87 Respirations: 12 Pulse Ox (%): 99 - Physical Exam General: In no apparent distress, Cooperative, Other (Slightly drowsy) HEENT: Atraumatic, Normocephalic Neck: Supple Cardiovascular: Other (Left upper extremity AV fistula. Right groin without signs of hematoma or tenderness) Neurological: Normal speech, Normal affect Assessment And Plan - Current Problems (Diagnosis) (1) Acute hypoxemic respiratory failure due to COVID-19 Current Visit: Yes Status: Acute (2) COVID-19 Current Visit: No Status: Acute (3) CVA (cerebral vascular accident) Onset Date: 05/26/18 Current Visit: No Status: Acute (4) Congestive heart failure Onset Date: 05/26/18 Current Visit: No Status: Acute (5) DM2 (diabetes mellitus, type 2) Onset Date: 05/26/18 Current Visit: No Status: Acute (6) ESRD (end stage renal disease) Current Visit: No Status: Acute (7) HTN (hypertension) Onset Date: 05/26/18 Current Visit: No Status: Acute (8) Pneumonia due to COVID-19 virus Current Visit: No Status: Acute Physician Review Additional Text: Assessment Patient is a 61-year-old Korean-speaking female with a known past medical history of hypertension and ESRD and possibly chronic respiratory failure. She presented with shortness of breath. She has tested positive for Covid and was found to be volume overloaded as well. She required BiPAP on admission. She has done well with diuresis and COVID regimen. She is currenlty on room air. On 07/24 she developed excruciating chest pain. Troponin was concerning for NSTEMI. Cardiology was consulted. Acute on chronic hypoxemic respiratory failure COVID-19 pneumonia Decompensated CHF NSTEMI CAD PVD S/P R BKA ESRD Hypertension Plan: Left heart cath with selective coronary angiogram. She has severe coronary artery disease Cardiology recommends medical management. She is on dual antiplatelet therapy and high intensity statin Blood pressure control. She is on Norvasc. She can benefit from beta-blockers and ESTEFANY inhibitor if well tolerated Her respiratory status is back to baseline. Continue dexamethasone and multivitamins at current dose Continue VTE and GI prophylaxis She can be discharged tomorrow after her dialysis
[2021-07-26] MEDS: ATORVASTATIN 40 MG TAB PO SCH (20:06)
[2021-07-27] MEDS: LEVOTHYROXINE SOD 0.025 MG TAB PO SCH (05:04)
[2021-07-27] MEDS ORDERED: TRAMADOL HCL 50 MG TAB PO ONE (05:13)
--- NOTE | 2021-07-27 05:35 | P.PN ---
Subjective Date of Service: 07/27/21 Chief Complaint: shortness of breath Subjective: No new changes, Other (Received HD today) Physical Examination - Vital Signs Temperature: 97.7 F Blood Pressure: 127/56 Pulse: 87 Respirations: 16 Pulse Ox (%): 97 - Physical Exam General: Other (appears chronically ill) HEENT: Atraumatic, Normocephalic Neck: Supple, JVD not distended Respiratory: Other (symmetric chest expansion) Cardiovascular: No rubs, No murmurs Gastrointestinal: Soft and benign, No guarding Musculoskeletal: No clubbing Integumentary: No warmth Neurological: Normal tone Urinary: Other (no bladder distention) External genitalia: Deferred Rectal: Deferred Assessment And Plan - Plan 1. End-stage renal disease on outpt HD MWF at [facility]. EDW 53.5 kgs. HD access LA AVF. Next HD today, then resume MWF sked starting Thursday. Nephro-oleksandr po daily. Monitor renal panel. 2. Congestive heart failure. HD as above 3. Coronary artery disease with unstable angina. [facility] on 07/26/21. 4. COVID pneumonia. Mngt per primary team. 5. Anemia. H/H at goal. Monitor. 6. Renal osteodystrophy. Corrected serum calcium and phosphorus levels at goal. Monitor.
[2021-07-27] MEDS: INSULIN -REGULAR HUMAN 50 UNIT/0.5 ML ML SQ SCH ×3 (08:31→16:30)
[2021-07-27] MEDS: DULERA 200/5 (MOMETASONE/FORMOTEROL) INHALER IH SCH (08:32)
[2021-07-27] MEDS: dexAMETHasone 10 MG/ML VIAL IV SCH (08:34)
[2021-07-27] MEDS: ASCORBIC ACID 500 MG TABLET PO SCH (08:35)
[2021-07-27] MEDS: VITAMIN D 1000 UNIT TAB PO SCH (08:35)
[2021-07-27] MEDS: CLOPIDOGREL 75 MG TABLET PO SCH (08:35)
[2021-07-27] MEDS: ZINC SULFATE 220 MG CAP PO SCH (08:35)
[2021-07-27] MEDS: THIAMINE HCL 100 MG TABLET PO SCH (08:36)
[2021-07-27] MEDS: PANTOPRAZOLE 40 MG INJ IVP SCH (08:36)
[2021-07-27] MEDS: AMLODIPINE 10 MG TAB PO SCH (08:36)
[2021-07-27] MEDS: FUROSEMIDE 20 MG TABLET PO SCH (08:46)
[2021-07-27] MEDS ORDERED: DRISDOL (VITAMIN D=ERGOCALCIFEROL) 50000 UNIT CAP PO SCH (09:00)
[2021-07-27] MEDS ORDERED: MULTIVITAMINS,THERAPEUT 1 TAB PO SCH (09:00)
--- NOTE | 2021-07-27 10:58 | P.DS ---
Admission Date: 07/22/21 Discharge Date: 07/27/21 Disposition: DC HOME/HOME HEALTH CARE Discharge Condition: GOOD Reason for Admission: shortness of breath - Problems (1) Acute hypoxemic respiratory failure due to COVID-19 Current Visit: Yes Status: Acute (2) COVID-19 Current Visit: No Status: Acute (3) CVA (cerebral vascular accident) Onset Date: 05/26/18 Current Visit: No Status: Acute (4) Congestive heart failure Onset Date: 05/26/18 Current Visit: No Status: Acute (5) DM2 (diabetes mellitus, type 2) Onset Date: 05/26/18 Current Visit: No Status: Acute (6) ESRD (end stage renal disease) Current Visit: No Status: Acute (7) HTN (hypertension) Onset Date: 05/26/18 Current Visit: No Status: Acute (8) Pneumonia due to COVID-19 virus Current Visit: No Status: Acute Brief History of Present Illness: Patient is a 61 year old Nigerian-speaking female with a known of HT, ESRD. She presents to the ER complaing of shortness of breath. Patient was reportedly found by son when this occurred. She was having difficulty breathing. Denies any fever, cough or chest pain. She arrived in the ER hemodynamically stable but in severe respiratory distress. She was placed on BIPAP which helped alleviate her symptoms. She tested positive for COVID 19. Her CXR showed extensive bilateral pulmonary disease area representative of PNA. She received ceftriaxone and azithromycin. Hospital Course: Patient was admitted for acute hypoxemic respiratory failure secondary to COVID 19. She did well on systemic steroids and BIPAP. She has been weaned off for the most part. Cardiology was also consulted for NSTEMI after she developed chest pain. Coronary angiogram showed severe CAD. She has complete occlusion of RCA and R OM vessel. She will be treated medically Vital Signs/Physical Exam: Temp Pulse Resp BP Pulse Ox 98.4 F 86 16 146/65 H 87 L 07/27/21 08:00 07/27/21 08:46 07/27/21 08:00 07/27/21 08:46 07/27/21 08:00 General: In no apparent distress, Cooperative HEENT: Atraumatic, Normocephalic Respiratory: Other (unlaboured breathing) Cardiovascular: Regular rate/rhythm, Normal S1 S2, Other (L AVF) Musculoskeletal: No clubbing, No swelling, No contractures, No erythema Neurological: Normal speech, Normal affect Laboratory Data at Discharge: WBC 13.30 K/uL (4.3-10.9) H D 07/25/21 06:15 Hgb 10.5 g/dL (12.0-15.0) L 07/25/21 06:15 Hct 33.7 % (36.0-45.0) L 07/25/21 06:15 Plt Count 185 K/uL (152-406) 07/26/21 01:42 PT 10.9 SECONDS (9.5-12.5) 07/24/21 14:30 INR 0.95 07/24/21 14:30 APTT Cancelled 07/26/21 06:19 Sodium 135 mmol/L (136-145) L 07/26/21 01:42 Potassium 4.2 mmol/L (3.5-5.1) 07/26/21 01:42 BUN 51 mg/dL (7-18) H D 07/26/21 01:42 Creatinine 6.01 mg/dL (0.55-1.3) H* D 07/26/21 01:42 Glucose 450 mg/dL (74-106) H* 07/26/21 01:42 Phosphorus 4.9 mg/dL (2.5-4.9) 07/26/21 01:42 Magnesium 2.7 07/22/21 07:18 Total Bilirubin 0.3 mg/dL (0.2-1.0) 07/22/21 07:18 AST 72 U/L (15-37) H 07/22/21 07:18 ALT 50 U/L (12-78) 07/22/21 07:18 Alkaline Phosphatase 135 U/L (45-117) H 07/22/21 07:18 Home Medications: Amlodipine [Norvasc*] 10 mg PO DAILY 05/26/18 Levothyroxine [Synthroid*] 25 mcg PO [id number] 05/26/18 Ergocalciferol (Vitamin D2) [Vitamin D2] 50,000 unit PO DIRECTED 08/08/20 Furosemide 20 mg PO DAILY 08/08/20 Insulin -Regular Human [Novolin -R*] 12 unit SQ TIDWM 08/08/20 Ascorbic Acid [Vitamin C*] 500 mg PO DAILY #14 tablet 07/27/21 Aspirin [Aspirin EC 81 MG] 81 mg PO DAILY #30 07/27/21 Atorvastatin Calcium [Lipitor*] 40 mg PO BEDTIME #14 tab 07/27/21 Cholecalciferol (Vitamin D3) [Vitamin D 1000 Iu Tab*] 1,000 unit PO DAILY #10 tab 07/27/21 Clopidogrel Bisulfate [Plavix*] 75 mg PO DAILY #30 tablet 07/27/21 Dexamethasone [Decadron] 6 mg PO DAILY #3 tablet 07/27/21 Mometasone/Formoterol [Dulera 200 Mcg/5 Mcg Inhaler] 2 puff IH BID inhaler 07/27/21 Thiamine HCl [Vitamin B-1*] 100 mg PO DAILY #14 tablet 07/27/21 Zinc Sulfate [Zinc Sulfate*] 220 mg PO DAILY #14 cap 07/27/21 dexAMETHasone [Dexamethasone] 1 mg PO DAILY #3 tablet 07/27/21 dexAMETHasone [Dexamethasone] 2 mg PO DAILY #3 tablet 07/27/21 dexAMETHasone [Dexamethasone] 4 mg PO DAILY #3 tablet 07/27/21 New Medications: Aspirin [Aspirin EC 81 MG] 81 mg PO DAILY #30 Dexamethasone [Decadron] 6 mg PO DAILY #3 tablet dexAMETHasone [Dexamethasone] 1 mg PO DAILY #3 tablet dexAMETHasone [Dexamethasone] 2 mg PO DAILY #3 tablet dexAMETHasone [Dexamethasone] 4 mg PO DAILY #3 tablet Atorvastatin Calcium [Lipitor*] 40 mg PO BEDTIME #14 tab Clopidogrel Bisulfate [Plavix*] 75 mg PO DAILY #30 tablet Thiamine HCl [Vitamin B-1*] 100 mg PO DAILY #14 tablet Ascorbic Acid [Vitamin C*] 500 mg PO DAILY #14 tablet Cholecalciferol (Vitamin D3) [Vitamin D 1000 Iu Tab*] 1,000 unit PO DAILY #10 tab Zinc Sulfate [Zinc Sulfate*] 220 mg PO DAILY #14 cap Followup: NONE,NONE [Primary Care Provider] -
[2021-07-27 12:21] LABS: Absolute Lymphocytes (CBC) 0.7 K/uL (0.7-4.9); Hematocrit 32.1 % (36.0-45.0); RBC Red Blood Cell Count 3.71 M/uL (3.86-4.86)
[2021-07-27 12:40] LABS: Albumin 2.9 g/dL (3.4-5.0); Phosphorus 7.3 mg/dL (2.5-4.9); Potassium 4.9 mmol/L (3.5-5.1)
--- NOTE | 2021-07-27 14:10 | PN ---
Date of Progress Note: 07/25/2021 Mrs. Xavier Dominique underwent a left heart catheterization yesterday to define her coronary anatomy. S he was found to have a completely occluded stent in her ramus. She has some [id number] diffuse disease in the LAD, circumflex, and the right coronary artery. The plan is to continue medical ther apy. No intervention was planned. Her RCA was completely occluded. She has collaterals from the LA D to it. The patient can go home from our standpoint. Once it is okay with Dr. Mccarthy and primary admitting physician, then we will see her in the office in the very near future. I agree with her pr esent regimen. Her groin was intact. SAM/EDOUARD Voice ID: [id number] Report ID: [id number]
--- NOTE | 2021-07-27 15:42 | CON ---
History Of Present Illness: The patient was admitted on 07/22/[address] Prince Mccarthy's service. She has a history of end-stage renal disease, on dialysis, congestive heart failure, hypertension, h ypothyroidism, vitamin deficiency, diabetes, and CVA. She came in with shortness of breath and was h aving chest pain radiating to the left arm. Had positive troponin consistent with non-ST elevation m yocardial infarction and I was consulted. The patient denied any nausea or vomiting, but has had ramon phoresis, PND, orthopnea, pedal edema. No palpitation. No syncope. Had chest pain as reported justin ier. Past Medical History: As stated above. Allergies: NONE. Review of Systems: Negative. Social History: Negative. Family History: Noncontributory. Medications: At home include Norvasc, aspirin, Lipitor, Plavix, Decadron, Lasix, insulin, levothyrox ine, inhalers, and steroids. Physical Examination: Vital Signs: Stable. She was afebrile. She was still having pain radiating to the left arm intermi ttently. She was in sinus rhythm. HEENT: Negative. Neck: Supple with no bruit. Chest: Clear. Cardiac: Revealed a regular rhythm and rate with S4 gallops. No murmurs or rubs. Abdomen: Benign. Extremities: Revealed no clubbing, cyanosis, or edema. Pulses were present bilaterally symmetricall y in the distal extremities. Neurologic: She was nonfocal. Skin: Warm, dry, and intact. Diagnostic Data: Her troponin was elevated. Creatinine was 6.01. Her glucose was 450 and that was being treated. Her chest x-ray revealed possible pneumonia versus congestive heart failure. Her EKG revealed normal sinus rhythm with left atrial enlargement, nonspecific changes, no ST elevation. Ch est CTA revealed no pulmonary embolus. Impression And Plan: 1.Non-ST elevation myocardial infarction with chest pain radiating to the left arm, history of coron ghazala artery disease, status post stent in the past. We will proceed with a left heart catheterization to define her coronary anatomy. The patient understands the risk and the benefits of the procedure. She agrees to proceed. 2.Her other problems include history of chronic diastolic congestive heart failure, echocardiogram s howed an ejection fraction of 42%. 3.Diabetes. 4.End-stage renal disease, on hemodialysis. 5.Chronic obstructive pulmonary disease. 6.Gastroesophageal reflux disease. 7.Hypothyroidism. 8.Hypertension, well controlled. Again, we will continue her present regimen, do a left heart jacinda terization, and decide on further therapy after that. SAM/EDOUARD Voice ID: [id number] Report ID: [id number]
[2021-07-27 16:19] VITALS: O2SAT 100
[2021-07-27 22:34] VITALS: BP 127/56; TEMP 97.7
== END 2021-07-27 17:36 | disposition home health service (06) | DRG 177 ==
LOC: ER 06:50 → ERHOLD 08:24 → 4TH 19:33
PROVIDERS: ADMIT Internal Medicine; ATTEND Internal Medicine
PROC: 5A1D70Z Performance of Urinary Filtration, Intermittent, Less than 6 Hours Per Day (ICD-10-PCS; 2021-07-22)
PROC: 5A09557 Assistance with Respiratory Ventilation, Greater than 96 Consecutive Hours, Continuous Positive Airway Pressure (ICD-10-PCS; 2021-07-22)
PROC: 4A023N7 Measurement of Cardiac Sampling and Pressure, Left Heart, Percutaneous Approach (ICD-10-PCS; principal; 2021-07-26)
PROC: B2111ZZ Fluoroscopy of Multiple Coronary Arteries using Low Osmolar Contrast (ICD-10-PCS; 2021-07-26)
DX: U07.1 COVID-19 (principal); J12.82 Pneumonia due to coronavirus disease 2019; N18.6 End stage renal disease; I50.33 Acute on chronic diastolic (congestive) heart failure; J96.21 Acute and chronic respiratory failure with hypoxia; I21.4 Non-ST elevation (NSTEMI) myocardial infarction; I13.0 Hypertensive heart and chronic kidney disease with heart failure and stage 1 through stage 4 chronic kidney disease, or unspecified chronic kidney disease; N25.81 Secondary hyperparathyroidism of renal origin; I25.110 Atherosclerotic heart disease of native coronary artery with unstable angina pectoris; E11.22 Type 2 diabetes mellitus with diabetic chronic kidney disease; E11.51 Type 2 diabetes mellitus with diabetic peripheral angiopathy without gangrene; D63.1 Anemia in chronic kidney disease; E78.5 Hyperlipidemia, unspecified; E87.5 Hyperkalemia; K21.9 Gastro-esophageal reflux disease without esophagitis; N25.0 Renal osteodystrophy; E03.9 Hypothyroidism, unspecified; Z79.82 Long term (current) use of aspirin; Z79.890 Hormone replacement therapy; Z79.02 Long term (current) use of antithrombotics/antiplatelets; Z86.73 Personal history of transient ischemic attack (TIA), and cerebral infarction without residual deficits; Z99.2 Dependence on renal dialysis; Z79.4 Long term (current) use of insulin; Z79.899 Other long term (current) drug therapy; Z95.5 Presence of coronary angioplasty implant and graft; Z90.49 Acquired absence of other specified parts of digestive tract; Z89.511 Acquired absence of right leg below knee
CPT/HCPCS: 36415; 71045; 71275; 80048; 80069; 80076; 82550; 82553; 82805; 82947; 83735; 83880; 84484; 85025; 85049; 85610; 85730; 86140; 86704; 86706; 86803; 87340; 90935; 93005; 93306; 93454; 94660; 94760; 96374; 96375; 99285; C1893; C9113; J0360; J0456; J0583; J1100; J1170; J1644; J2250; J3010; J7040; J7050; J7606; Q9967; U0003

== ENCOUNTER 2021-07-31 20:44 | Inpatient (IN) | payer OTHER ==
--- OUTSIDE RECORDS SUMMARY | 2021-07-31 20:57 | XMS REPORT | Continuity of Care Document ---
:1960 Author Organization [facility] t Address [address] [place] [address] Care Team Providers Name Role Phone Unavailable Unavailable Unavailable Payers Payer Name Policy Type Policy Number Effective Date Expiration Date S ource Problems Condition Condition Condition Status Onset Resolution Last Treating Co mments Source Name Details Category Date Date Treatment Clinician Date N Diagnosis Active 2018-08-20 Mem [facility]ria 07-13 16:53:00 l N 00:00: [place] 00 Active 07/13/2018 [place] Paresthesi Problem Active 2020-06-10 M emoria a 01:37:21 l (finding) [place] Paresthesi a (finding) Active Problem 06/10/2020 [facility] Peripheral Problem Active 2020-06-10 M emoria nerve 01:37:21 l disease [place] (disorder) Peripheral nerve disease (disorder) Active Problem 06/10/2020 [facility] Cerebral Problem Active 2020-06-10 Mem oria hemorrhage 01:37:21 l (disorder) Cerebral He rmann hemorrhage (disorder) Active Problem 06/10/2020 [facility] Diabetes Problem Active 2020-06-10 Mem oria mellitus 01:37:21 l (disorder) Diabetes He rmann mellitus (disorder) Active Problem 06/10/2020 [facility] Dizziness Problem Active 2020-06-10 Me moria (finding) 01:37:21 l [place] Dizziness (finding) Active Problem 06/10/2020 [facility] End stage Problem Active 2020-06-10 Me moria renal 01:37:21 l failure on End Karthik n dialysis stage (disorder) renal failure on dialysis (disorder) Active Problem 06/10/2020 [facility] Headache Problem Active 2020-06-10 Mem oria (finding) 01:37:21 l Headache Karthik n (finding) Active Problem 06/10/2020 [facility] Hypertensi Problem Active 2020-06-10 M emoria ve 01:37:21 l disorder, Vladimir systemic Hypertensi arterial ve [...] Memor ia radiculopa 01:37:21 l thy Lumbar [place] (disorder) radiculopa thy (disorder) Active Problem 06/10/2020 [facility] Allergies, Adverse Reactions, Alerts Allergy Allergy Status Severity Reaction(s) Onset Inactive Treating Comm ents Source Name Type Date Date Clinician No Known DA Active [facility] Allergie 06-28 Clear s 00:00: Rosales 00 [facility] Social History Social Habit Start Date Stop Date Quantity Comments Source Sex Assigned At [birth year] [facility] kes - 00:00:00 00:00:00 [facility] Smoking Status Start Date Stop Date Source Social History [facility] Medications Ordered Filled Start Stop Current Ordering Indication Dosage Frequency Signature Comments Components Source Medication Medication Date Date Medication? Clinician (SIG) Name Name amLODIPine Yes 10 mg = 1 Me moria 10 mg oral 5-28 tab, PO, l tablet 20:33: Daily, 0 [place] 00 Refill(s) Aspirin 81 Yes 81 mg = 1 Me moria MG Enteric 5-28 tab, PO, l Coated 20:33: Daily, # [place] Tablet 00 90 tab, 3 Refill(s) atorvastati [...] 5-28 Daily, 0 l 0.05 20:33: Refill(s) [place] MG/ACTUAT 00 Metered Dose Nasal [place] gabapentin 2020-0 Yes 100 mg = 1 M emoria 100 MG Oral 5-28 cap, PO, l Capsule 20:33: Bedtime, 0 Herm nilay 00 Refill(s) Insulin 2020-0 Yes 10 unit, Memori a Glargine 5-28 SUB-Q, l 100 UNT/ML 20:33: Bedtime, # H ermann Injectable 00 10 mL, 0 Solution Refill(s) [Lantus] Novolin R 2020-0 Yes 12 unit, [place] titus 5-28 SUB-Q, l 20:33: ONCE, 0 [place] 00 Refill(s) Levothyroxi 2020-0 Yes 25 Memori a ne Sodium 5-28 microgram l 0.025 MG 20:33: = 1 tab, Jossie nn Oral Tablet 00 PO, Daily, [Synthroid] 0 Refill(s) Atorvastati Atorvastati Yes Tre MONTOYA DIXIE [facility] Calcium n Calcium Syed (1) [facility] - TABLETA(S) [facility] POR LA l BOCA DIXIE [facility]pat[facility] VEZ AL ent [facility]. Clinics Clopidogrel Clopidogrel Yes Tre MONTOYA DIXIE [facility] Bisulfate Bisulfate Syed (1) [...] [facility] en-Codeine en-Codeine Syed III Drug) [place] - #3 #3 TOME DIXIE Mem[facility] (1) [...] Systolic (mm Hg) 2020-06-07 15:31:00 [place] rial [place] Diastolic (mm Hg) 2020-06-07 15:31:00 Mem orial [place] Heart Rate 2020-06-07 15:31:00 [facility] [place] Respitory Rate 2020-06-07 15:31:00 Memori al [place] Height 2020-06-07 15:31:00 154.94 cm [facility] [place] Weight 2020-06-07 15:31:00 [facility] [place] BMI Calculated 2020-06-07 15:31:00 Memori al [place] Systolic (mm Hg) 2020-04-05 19:29:00 [place] rial [place] Diastolic (mm Hg) 2020-04-05 19:29:00 Mem orial [place] Heart Rate 2020-04-05 19:29:00 [facility] [place] Respitory Rate 2020-04-05 19:29:00 Memori al [place] Systolic (mm Hg) 2020-02-23 20:37:00 [place]on rial [place] Diastolic (mm Hg) 2020-02-23 20:37:00 Mem orial [place] Heart Rate 2020-02-23 20:37:00 [facility] [place] Respitory Rate 2020-02-23 20:37:00 Memori al [place] Temperature Oral (F) 2020-02-23 20:37:00 98.3 F [facility] [place] Height 2020-02-23 20:37:00 157.48 cm [facility] [place] Weight 2020-02-23 20:37:00 [facility] [place] BMI Calculated 2020-02-23 20:37:00 Memori al [place] Systolic (mm Hg) 2020-01-05 20:43:00 [place] rial [place] Diastolic (mm Hg) 2020-01-05 20:43:00 Mem orial [place] Heart Rate 2020-01-05 20:43:00 [facility] [place] Respitory Rate 2020-01-05 20:43:00 Memori al [place] Temperature Oral (F) 2020-01-05 20:43:00 99.1 F [facility] [place] Height 2020-01-05 20:43:00 160.02 cm [facility] [place] Weight 2020-01-05 20:43:00 [facility] [place] BMI Calculated 2020-01-05 20:43:00 Memori al [place] Systolic (mm Hg) 2019-11-17 20:14:00 Weston elena [place] Diastolic (mm Hg) 2019-11-17 20:14:00 Mem orial [place] Heart Rate 2019-11-17 20:14:00 Jes [place] Respitory Rate 2019-11-17 20:14:00 Zeyadori al [place] Height 2019-11-17 20:14:00 160.02 cm [facility] [place] Weight 2019-11-17 20:14:00 [facility] [place] BMI Calculated 2019-11-17 20:14:00 Zeyadori al [place] Procedures Procedure Date / Time Performed Performing Clinician Sourc e BKA - Below knee [facility] Karthik n amputation Encounters Start End Encounter Admission Attending Care Care Encounter Source Date/Time Date/Time Type Type Clinicians Facility Department ID 2021-07-17 Outpatient STLMLC [facility] [id number] [facility] 11:09:09 [id number] 2020-06-07 2020-06-08 Outpatient nullFlavo MNA [id number] Mem[facility] 15:15:00 05:59:59 r Neurology 09 l [place] 2020-05-22 2020-05-22 Ambulatory nullFlavo MNA [id number] Memoria 20:45:00 20:45:00 Pre-Reg r Neurology 08 l [place] 2020-04-05 2020-04-06 Outpatient nullFlavo MNA [id number] Mem[facility] 19:00:00 04:59:59 r Neurology 07 l [place] 2020-02-23 2020-02-24 Outpatient nullFlavo MNA [id number] [facility] 20:15:00 04:59:59 r Neurology 06 l [place] 2020-01-25 2020-01-25 Outpatient STLMLC [facility]LMLC [id number] [facility] 2020-01-05 2020-01-06 Outpatient nullFlavo MNA [id number] Mem[facility] 20:15:00 04:59:59 r Neurology 05 l [place] 2019-12-29 2019-12-29 Ambulatory nullFlavo MNA [id number] Mem[facility] 20:15:00 20:15:00 Pre-Reg r Neurology 02 l [place] 2019-12-29 2019-12-29 Ambulatory nullFlavo MNA [id number] [facility] 20:15:00 20:15:00 Pre-Reg r Neurology 04 l [place] 2019-11-23 2019-11-24 Outpatient nullFlavo MNA [id number] [facility] 18:00:00 04:59:59 r Neurology 03 [place] 2019-11-17 2019-11-18 Outpatient nullFlavo MNA [id number] [facility] 20:00:00 04:59:59 r Neurology 01 [place] 2019-10-06 2019-10-06 Ambulatory nullFlavo MNA [id number] [facility] 18:30:00 18:30:00 Pre-Reg r Neurology 00 l [place] 2019-08-11 2019-08-11 [facility] [id number] [facility] 14:00:00 14:00:00 [facility] Clinics 2018-07-20 2018-07-20 Day nullFlavo [facility] [id number] Memoria 21:00:00 21:00:00 Surgery r [place] 00 [facility] Results Test Description Test Time Test Comments Results Result [facility] e Comments SCR MAMM 2020-11-28 BILATERAL DAVIS 13:49:46 CAD DIGITAL Name: Margarita : 1960 Sex: F - SCR MAMM BILATERAL DAVIS CAD DIGITALBILATERAL DIGITAL SCREENING MAMMOGRAM 3D/2D WITH CAD: 11/16/2020LINICAL: Asymptomatic. Digital breast tomosynthesis was performed in addition to routine CC and MLO views. Current mammographic images were evaluated by [employer] ImageRiskIQ CAD (computer-aided detection) software. Comparison is made to exam dated 04/21/2018 mammogram - [facility]. There are scattered fibroglandular tissues in both breasts. There are benign vascular calcifications in both breasts. No suspicious mass, architectural distortion, malignant type calcification, or lymph node abnormality detected. Breast architecture is stable compared to prior exams.IMPRESSION: BENIGNThere is no mammographic evidence of malignancy. Resume annual screening mammography in one year. Fish Alejandro M.D. ss/penrad:11/28/2020 13:49:46 Armored Car Guard: Becka Reed MM, [facility] sent: BIRADS 1-2 Normal Mammogram BI-RADS: 2 Benign SURGICAL 2018-07-06 SPECIMENS 08:04:00 RUN DATE: 07/06/18 [facility] *LIVE* PAGE 1 RUN TIME: 0804 Specimen Inquiry RUN USER: INTERFACE PATIENT: MARGARITA CORONADO LOC: CYNDIE #: [id number] AGE/SX: 58/F ROOM: RE06/30/18REG DR: Jonathan Reid MD : 56 BED: DIS: STATUS: [facility] TLOC: SPEC #: [id number] RECD: 07/01/18 STATUS: AMILCAR MORALES #: [id number] JENIFFER: 07/01/[address] [facility] [address]: Jonathan Reid MD ENTERED: 07/05/18 SP TYPE: SURG SPEC OTHR DR: No Primary or Family PhysicianORDERED: GM LEVEL 4 CODES: [id number] - COLON, NOS COPIES TO: No Primary or Family Physician Jonathan Reid MD [address] [address] PROCEDURES: GM LEVEL 4 (Incomplete) TISSUES: 1. [...] CONTINUED ON NEXT PAGE RUN DATE: 07/06/18 [facility] *LIVE* PAGE 2 RUN TIME: 08 Specimen Inquiry RUN USER: INTERFACE SPEC #: [id number] PATIENT: MARGARITA CORONADO #[id number] (Continued) POST-OP DIAGNOSIS Colon polyp PRE-OP DIAGNOSIS Colon screen ------ Signed SIGNATURE ON FILE SoniaFrederick Allred DO 07/06/18 0804 END OF REPORT SCR MAMM 2018-04-27 - SCR MAMM BILATERAL BILATERAL DAVIS 15:42:55 DAVIS CAD CAD DIGITAL DIGITALBILATERAL DIGITAL SCREENING MAMMOGRAM 3D/2D WITH CAD: 04/21/2018CLINICAL: Asymptomatic. Digital breast tomosynthesis was performed in addition to routine CC and MLO views. Current mammographic images were evaluated by either a 3[employer] Planet M-Vu or a [employer]ate[employer] ImageChecker CAD (computer aided detection system). No prior exams were available for comparison. There are scattered fibroglandular tissues in both breasts. Symmetric mild bilateral trabecula and skin thickening noted.No suspicious mass, architectural distortion, malignant type calcification, or lymph node abnormality detected. IMPRESSION: NEGATIVEThere is no mammographic evidence of malignancy. Resume annual screening mammography in one year. Marcia Norris M.D. el/:04/27/2018 15:42:55 Armored Car Guard: Jackelin Rocha MM, [facility]: BIRADS 1-2 Normal Mammogram BI-RADS: 1 Negative
[2021-07-31] MEDS ORDERED: MORPHINE 4 MG/ML SYR ONE (21:40)
[2021-07-31] MEDS ORDERED: ONDANSETRON 4 MG/2 ML VIAL ONE (21:41)
[2021-07-31 21:43] LABS: Absolute Lymphocytes (CBC) 0.4 K/uL (0.7-4.9); Hematocrit 31.7 % (36.0-45.0); Lymphocytes % 2.6 % (15.3-44.8); RBC Red Blood Cell Count 3.52 M/uL (3.86-4.86)
--- NOTE | 2021-07-31 21:48 | RAD REPORT ---
EXAM DESCRIPTION: RAD - Chest Single View - 07/31/2021 9:40 pm CLINICAL HISTORY: CHEST PAIN COMPARISON: Chest Single View dated 07/24/2021; Chest Single View dated 07/22/2021; Chest Pa And Lat (2 Views) dated 08/10/2020; Chest Pa And Lat (2 Views) dated 08/09/2020; Chest Angio dated 07/24/2021 FINDINGS: Lines: None. Lungs: Widespread bilateral airspace disease Pleural: No significant pleural effusions or pneumothorax. Cardiac: Mild cardiomegaly. Bones: No acute fractures. Other: IMPRESSION: Similar widespread bilateral airspace disease could reflect multifocal pneumonia and/or edema.
[2021-07-31 22:32] LABS: Protime INR 0.97
[2021-08-01 01:46] LABS: Potassium 4.8 mmol/L (3.5-5.1)
--- NOTE | 2021-08-01 02:08 | EDPHYS ---
Physician Documentation [facility] Name: Margarita Dominique Age: 61 yrs Sex: Female : 1960 Arrival Date: 07/31/2021 Time: 20:45 Bed 16 Private MD: ED Physician José Miguel Lynn HPI: 07/31 21:19 This 61 yrs old Female presents to ER via Wheelchair with complaints of Chest rn Pain. 21:19 The patient or guardian reports chest pain that is located primarily in the anterior rn chest wall, left. Onset: 1 hour(s) ago. The pain radiates to the left arm, the left scapula. Associated signs and symptoms: Pertinent negatives: abdominal pain, diaphoresis, headache. The chest pain is described as a heaviness, a pressure. Duration: The patient or guardian reports a single episode, that is still ongoing. Modifying factors: The symptoms are alleviated by nothing. the symptoms are aggravated by nothing. Severity of pain: At its worst the pain was moderate in the emergency department the pain is unchanged. The patient has experienced similar episodes in the past. The patient has been recently been admitted at [facility]. Pt recently admitted to this hospital for respiratory failure and COVID, had cardiac cath for possible NSTEMI, showed multiple occlusions, no intervention done, decision to medically manage. Told to return if symptoms worsen or return and began again tonight, approx 1 hour ago. Reports left sided chest pain that radiates to left arm and left scapula. No trauma. No fever or new cough. No abd pain.. Historical: - Allergies: 21:04 No Known Allergies; sm5 - Home Meds: 21:04 amlodipine 10 mg tab 1 tab once daily [Active]; aspirin 81 mg Oral chew 1 tab once sm5 daily [Active]; atorvastatin 40 mg Oral tab 1 tab once daily [Active]; carvedilol 25 mg Oral tab 1 tab 2 times per day [Active]; clopidogrel 75 mg Oral tab 1 tab once daily [Active]; cyclobenzaprine 10 mg Oral tab 1 tab once per day [Active]; fluticasone 50 mcg/actuation nasal spsn 1 spray 2 times per day [Active]; furosemide 20 mg Oral tab 1 tab once daily [Active]; gabapentin 100 mg Oral cap 1 caps once nightly [Active]; hydralazine 25 mg Oral tab 1 tab 3 times per day [Active]; isosorbide dinitrate 30 mg Oral tab 1 tab once per day [Active]; Lantus 100 unit/mL Sub-Q soln 10 units nightly [Active]; losartan 100 mg Oral tab 1 tab once daily [Active]; Novolin R 12 units with meal Sub-Q [Active]; Synthroid 25 mcg Oral tab 1 tab once daily [Active]; vitamin D 2, 50,000 units once weekly [Active]; - PMHx: 21:04 CVA; Diabetes - NIDDM; Dialysis; HEART FAILURE; Hypertension; Hypothyroidism; vitamin d sm5 deficiency; - Immunization history:: Client reports receiving the 2nd dose of the Covid vaccine. - Social history:: Smoking status: Patient denies any tobacco usage or history of. - Family history:: not pertinent. - Hospitalizations: : The patient was recently seen at [facility]. ROS: 21:19 Constitutional: Negative for fever, chills, and weight loss, Eyes: Negative for injury, rn pain, redness, and discharge, Neck: Negative for injury, pain, and swelling, Cardiovascular: Negative for palpitations Respiratory: Negative for shortness of breath, cough, wheezing, and pleuritic chest pain, Abdomen/GI: Negative for abdominal pain, nausea, vomiting, diarrhea, and constipation, Back: Negative for injury MS/Extremity: Negative for injury and deformity, Skin: Negative for injury, rash, and discoloration, Neuro: Negative for headache, weakness, numbness, tingling, and seizure. Exam: 21:19 Constitutional: Thin female, disheveled Head/Face: Normocephalic, atraumatic. Eyes: rn Periorbital areas with no swelling, redness, or edema. Cardiovascular: Regular rate and rhythm. No pulse deficits. Respiratory: No increased work of breathing, no retractions or nasal flaring. Abdomen/GI: Soft, non-tender Skin: Warm, dry MS/ Extremity: No cyanosis, + RLE amputation. Neuro: Awake and alert, GCS 15 Vital Signs: 20:59 BP 145 / 78; Pulse 88; Resp 16; Pulse Ox 100% on R/A; Pain 0/10; martinez 22:10 BP 165 / 70; Pulse 78; Resp 16; Pulse Ox 100% on 2 lpm NC; Pain 0/10; martinez 23:27 BP 171 / 73; Pulse 88; Resp 16; Pulse Ox 100% on 2 lpm NC; Pain 0/10; martinez 08/01 01:17 BP 136 / 55; Pulse 72; Resp 16; Pulse Ox 100% on NC; Pain 0/10; martinez 02:04 BP 121 / 83; Pulse 93; Resp 16; Pulse Ox 99% on 2 lpm NC; Pain 0/10; martinez 02:54 BP 161 / 69; Pulse 86; Resp 18; Pulse Ox 100% on 2 lpm NC; Pain 0/10; martinez 03:16 BP 139 / 59; Pulse 84; Resp 18; Temp 97.5; Pulse Ox 100% on 2 lpm NC; Pain 0/10; martinez 04:46 BP 137 / 61; Pulse 82; Resp 16; Pulse Ox 100% on 2 lpm NC; Pain 0/10; martinez 05:22 BP 136 / 60; Pulse 82; Resp 16; Pulse Ox 100% on 2 lpm NC; Pain 0/10; martinez 06:20 BP 136 / 64; Pulse 82; Resp 16; Temp 97.5; Pulse Ox 100% on 2 lpm NC; Pain 0/10; martinez 07:35 BP 124 / 57; Pulse 73; Resp 18; Pulse Ox 100% on 2 lpm NC; ic1 08/02 19:30 BP 109 / 52; Pulse 75; Resp 18; Pulse Ox 97% on 2 lpm NC; mk 20:30 BP 119 / 52; Pulse 75; Resp 16; Pulse Ox 97% on 2 lpm NC; mk 21:30 BP 119 / 55; Pulse 75; Resp 18; Pulse Ox 98% on 2 lpm NC; mk Milano Coma Score: 19:30 Eye Response: spontaneous(4). Verbal Response: oriented(5). Motor Response: obeys mk commands(6). Total: 15. 20:30 Eye Response: spontaneous(4). Verbal Response: oriented(5). Motor Response: obeys mk commands(6). Total: 15. 21:30 Eye Response: spontaneous(4). Verbal Response: oriented(5). Motor Response: obeys mk commands(6). Total: 15. Procedures: 08/01 17:12 Central Line: Left internal jugular central venous catheter indicated by admitting sp3 chemical engineering technologist secondary to poor peripheral access. Patient was consented in maintenance journeyman and the nurse. Left internal jugular area was prepped and left central venous internal jugular catheter was placed in standard Seldinger technique in a sterile fashion with easy cannulation, and placement without any difficulty. Post procedure chest x-ray is pending. Dressing was applied by the nurse. MDM: 07/31 20:55 Patient medically screened. rn 08/01 00:01 ED course: Pt pain free after morphine.. rn 02:05 Differential diagnosis: acute myocardial infarction, acute pericarditis, anxiety, rn coronary artery disease chest wall pain, congestive heart failure pleurisy, pneumonia, pneumothorax, stable angina, unstable angina. The patient was not given aspirin in the Emergency Department. Patient reports taking aspirin within the past 24 hours. Data reviewed: vital signs, nurses notes, lab test result(s), EKG, radiologic studies, plain films, and as a result, I will admit patient. Counseling: I had a detailed discussion with the patient and/or guardian regarding: the historical points, exam findings, and any diagnostic results supporting the discharge/admit diagnosis, lab results, radiology results, the need for further work-up and treatment in the hospital. Admission orders: after a detailed discussion of the patient's condition and case, the admit orders are written by me. ED course: Troponin still pending, lab having issues, states have to send out troponin now, glucose 800, patient states hasn't given insulin today or yesterday without good reason. Will admit for chest pain and hyperglycemia.. 07/31 21:04 Order name: Basic Metabolic Panel; Complete Time: 05:43 rn 07/31 21:04 Order name: CBC with Diff; Complete Time: 22:58 rn 07/31 21:04 Order name: NT PRO-BNP; Complete Time: 05:43 rn 07/31 21:04 Order name: PT-INR; Complete Time: :58 rn 07/31 21:04 Order name: Troponin HS; Complete Time: 05:43 rn 08/01 01:57 Order name: SARS-COV-2 RT PCR (Document "Date of Onset" if Symptomatic); Complete Time: rn :43 08/01 06:03 Order name: Glucose, Ancillary Testing; Complete Time: 07:50 EDMS 08/01 07:10 Order name: Troponin High Sensitivity; Complete Time: 07:50 EDMS 08/01 07:59 Order name: Glucose, Ancillary Testing EDMS 08/01 09:10 Order name: Glucose, Ancillary Testing EDMS 08/01 09:48 Order name: Protime (+INR) EDMS 08/01 09:48 Order name: PTT, Activated Partial Thromb EDMS 08/01 09:49 Order name: CBC with Automated Diff EDMS 08/01 10:25 Order name: Glucose, Ancillary Testing EDMS 08/01 11:34 Order name: Glucose, Ancillary Testing EDMS 08/01 12:47 Order name: Glucose, Ancillary Testing EDMS 08/01 13:52 Order name: Glucose, Ancillary Testing EDMS 08/01 14:50 Order name: Glucose, Ancillary Testing EDMS 08/01 15:10 Order name: PTT, Activated Partial Thromb EDMS 08/01 16:18 Order name: Glucose, Ancillary Testing EDMS 08/01 18:30 Order name: T4 Free EDMS 08/01 18:30 Order name: Thyroid Stimulating Hormone EDMS 08/01 18:38 Order name: Glucose, Ancillary Testing EDMS 08/01 18:50 Order name: Troponin High Sensitivity EDMS 08/01 18:55 Order name: PTT, Activated Partial Thromb EDMS 08/01 19:32 Order name: Blood Culture EDMS 08/01 19:47 Order name: Glucose, Ancillary Testing EDMS 08/01 22:59 Order name: Glucose, Ancillary Testing EDMS 08/02 00:30 Order name: Glucose, Ancillary Testing EDMS 08/02 02:26 Order name: Glucose, Ancillary Testing EDMS 07/31 21:04 Order name: XRAY Chest (1 view); Complete Time: 21:51 rn 07/31 21:04 Order name: EKG; Complete Time: 21:05 rn 07/31 21:04 Order name: Cardiac monitoring; Complete Time: 21:24 rn 07/31 21:04 Order name: EKG - Nurse/Tech; Complete Time: 21:24 rn 08/01 03:04 Order name: CONS Physician Consult EDMS 08/01 17:10 Order name: CXR XRAY sp3 08/01 17:29 Order name: RAD EDMS 08/02 03:48 Order name: PTT, Activated Partial Thromb EDMS 08/02 04:44 Order name: Glucose, Ancillary Testing EDMS 08/02 05:49 Order name: PTT, Activated Partial Thromb EDMS 08/02 06:33 Order name: CBC with Automated Diff EDMS 08/02 06:55 Order name: Comprehensive Metabolic Panel EDMS 08/02 06:55 Order name: Renal Panel EDMS 08/02 06:55 Order name: Lipid Profile EDMS 08/02 06:56 Order name: Hemoglobin A1c EDMS 08/02 11:13 Order name: Activated Clotting Time-LR EDMS 08/02 11:13 Order name: Activated Clotting Time-LR EDMS 08/02 11:13 Order name: Activated Clotting Time-LR EDMS 08/02 11:14 Order name: Activated Clotting Time-LR EDMS 08/02 11:14 Order name: Activated Clotting Time-LR EDMS 08/02 11:15 Order name: Activated Clotting Time-LR EDMS 08/02 11:15 Order name: Activated Clotting Time-LR EDMS 08/02 11:42 Order name: Glucose, Ancillary Testing EDMS 08/02 13:44 Order name: Glucose, Ancillary Testing EDMS 08/02 16:24 Order name: Glucose, Ancillary Testing EDMS 08/02 17:11 Order name: Magnesium EDMS 08/02 17:43 Order name: Glucose, Ancillary Testing EDMS 07/31 21:04 Order name: IV Saline Lock; Complete Time: 21:39 rn 07/31 21:04 Order name: Labs collected and sent; Complete Time: 21:39 rn 07/31 21:04 Order name: O2 Per Protocol; Complete Time: 21:24 rn 07/31 21:04 Order name: O2 Sat Monitoring; Complete Time: 21:24 rn Administered Medications: 07/31 21:46 Drug: morphine 4 mg Route: IVP; Site: right antecubital; martienz 21:46 Follow up: Response: No adverse reaction martinez 21:46 Drug: Zofran (Ondansetron) 4 mg Route: IVP; Site: right antecubital; martinez 21:46 Follow up: Response: No adverse reaction martinez 08/01 02:20 Drug: Insulin Regular Human 10 units {Co-Signature: vc1 (Deysi Kramer RN).} Route: martinez IVP; Site: right antecubital; 02:34 Follow up: Response: No adverse reaction martinez 02:20 Drug: Insulin Regular Human 10 units {Co-Signature: vc1 (Deysi Kramer RN).} Route: martinez Sub-Q; Site: abdomen; 02:33 Follow up: Response: No adverse reaction martinez 06:03 Drug: Aspirin Chewable Tablet 324 mg Route: PO; martinez 06:04 Follow up: Response: No adverse reaction martinez Disposition Summary: 08/01/21 02:07 Hospitalization Ordered Hospitalization Status: Observation rn Provider: Justus Mireles rn Condition: Stable rn Problem: new rn Symptoms: have improved rn Bed/Room Type: Standard rn Location: Telemetry/MedSurg (Inpatient)(08/02/21 20:35) Room Assignment: [facility](08/02/21 20:35) mw Diagnosis - Chest pain, unspecified rn - Hyperglycemia, unspecified rn - End stage renal disease rn Forms: - Medication Reconciliation Form rn - SBAR form rn Signatures: Dispatcher [employer] EDMally Juarez, RN RN Claudio Montenegro PA PA jmm Nieto, Roman, MD MD rn Martinez, Eric em1 Janice Frias RN RN Emilee Beard MD MD sp3 Karin Ferris RN RN sm5 Lori Lopez RN RN martinez Kramer RN vc1 Corrections: (The following items were deleted from the chart) 07:24 02:07 rn em1 08:17 07:24 409 em1 em1 09:25 02:07 Tele[facility]Med[facility]urg (observation) [facility]:25 [facility] 20:35 02 09:25 [facility] ER HOLD [facility] 08/02 20:35 02 09:25 ERHOLD- [facility]
--- NOTE | 2021-08-01 02:08 | ER ---
Nurse's Notes [facility] Name: Margarita Dominique Age: 61 yrs Sex: Female : 1960 Arrival Date: 07/31/2021 Time: 20:45 Bed 16 Private MD: Diagnosis: Chest pain, unspecified;Hyperglycemia, unspecified;End stage renal disease Presentation: 07/31 21:03 Chief complaint: Patient's son or daughter states: pt started having chest pain and sm5 bilateral arm pain starting an hour prior to arrival. had a cardiac cath done a week ago. Coronavirus screen: Vaccine status: Patient reports receiving the 2nd dose of the covid vaccine. Ebola Screen: No symptoms or risks identified at this time. Initial Sepsis Screen: Does the patient meet any 2 criteria? No. Patient's initial sepsis screen is negative. Does the patient have a suspected source of infection? No. Patient's initial sepsis screen is negative. Risk Assessment: Do you want to hurt yourself or someone else? Patient reports no desire to harm self or others. Onset of symptoms was July 31, 2021 at 20:00. 21:03 Method Of Arrival: Wheelchair 5 21:03 Acuity: YEFRI 3 sm5 Triage Assessment: 21:06 General: Appears in no apparent distress. Behavior is cooperative. Pain: Complains of sm5 pain in chest, right arm and left arm. Neuro: No deficits noted. Level of Consciousness is awake, alert. Cardiovascular: Reports chest pain, Capillary refill < 3 seconds Patient's skin is warm and dry. Respiratory: No deficits noted. Airway is patent Trachea midline Respiratory effort is even, unlabored. Historical: - Allergies: 21:04 No Known Allergies; sm5 - Home Meds: 21:04 amlodipine 10 mg tab 1 tab once daily [Active]; aspirin 81 mg Oral chew 1 tab once sm5 daily [Active]; atorvastatin 40 mg Oral tab 1 tab once daily [Active]; carvedilol 25 mg Oral tab 1 tab 2 times per day [Active]; clopidogrel 75 mg Oral tab 1 tab once daily [Active]; cyclobenzaprine 10 mg Oral tab 1 tab once per day [Active]; fluticasone 50 mcg/actuation nasal spsn 1 spray 2 times per day [Active]; furosemide 20 mg Oral tab 1 tab once daily [Active]; gabapentin 100 mg Oral cap 1 caps once nightly [Active]; hydralazine 25 mg Oral tab 1 tab 3 times per day [Active]; isosorbide dinitrate 30 mg Oral tab 1 tab once per day [Active]; Lantus 100 unit/mL Sub-Q soln 10 units nightly [Active]; losartan 100 mg Oral tab 1 tab once daily [Active]; Novolin R 12 units with meal Sub-Q [Active]; Synthroid 25 mcg Oral tab 1 tab once daily [Active]; vitamin D 2, 50,000 units once weekly [Active]; - PMHx: 21:04 CVA; Diabetes - NIDDM; Dialysis; HEART FAILURE; Hypertension; Hypothyroidism; vitamin d sm5 deficiency; - Immunization history:: Client reports receiving the 2nd dose of the Covid vaccine. - Social history:: Smoking status: Patient denies any tobacco usage or history of. - Family history:: not pertinent. - Hospitalizations: : The patient was recently seen at [facility]. Screenin:59 Abuse screen: Denies threats or abuse. Denies injuries from another. Nutritional martinez screening: No deficits noted. Tuberculosis screening: No symptoms or risk factors identified. Fall Risk Ambulatory Aid- None/Bed Rest/Nurse Assist (0 pts). Gait- Impaired (20 pts.). Assessment: 20:59 General: Appears uncomfortable, Behavior is calm, cooperative, Reports Chest pain and martinez arm pain x 1 hour. Per the pt's son, she was at this hospital "a few days ago" and discharged. She was said to have come in with the same complaint, chest pain. The pt still has galvan from the ekg stickers on her body. Cardiovascular: Reports chest pain. 20:59 Musculoskeletal: Amputation of Other: with prosthesis to rt lower ext. martinez 20:59 General: Although the pt is 100% on RA, she requested O2, per NC. It was done for her martinez comfort. . 21:20 Pain: Pain began 1 hour ago. martinez 21:20 Pain: Pain radiates to right arm and left arm. martinez 21:23 General: The charge nurse is at bedside, using the doppler for IV access, as the pt is martinez a dialysis pt, with a fistula to her left arm. The first nurse attempted, to no avail. . 23:51 General: We were able to transfer the pt to a "hospital bed" for comfort. She was able martinez to transfer to the bed with minimal assist. . 08/01 04:59 General: I called the pharmacy to change the times on the insulin, as I gave it when martinez ordered, at 0220. The pharmacist thought it best not to change it in the MAR, so I made a note in the MAR, concerning the dosage given, route and time administered. The pt is sleeping with her son at bedside. . 05:19 General: The lab called to say the pt has a troponin of 183.5. made aware, as well. .martinez 05:55 General: The pt's Accucheck was 482. She recv'd 20 units, total, 10 sq and 10 IV \\T\\ martinez 0220. We will continue to monitor. . 07:32 Reassessment: Dr. Mireles called and reported lab values to him by this RN. Also ic1 informed him of the repeat EKG. Acknowledged understanding. 07:44 Reassessment: Attempted report. Nurse states she is not comfortable receiving patient. ic1 business services clerk notified. Pt to be re-evaluated before admission. 07:51 Reassessment: Spoke with house sup regarding pt's placement. Acknowledged understanding.ic1 08:13 Reassessment: No changes from previously documented assessment. Patient is alert, ic1 oriented x 3, equal unlabored respirations, skin warm/dry/pink. Patient denies pain at this time. 09:10 Reassessment: See further charting in [facility]. ic1 08/02 19:30 General: Appears uncomfortable, Behavior is cooperative. Pain: Denies pain. Neuro: mk Level of Consciousness is awake, alert, obeys commands, Oriented to person, place, time, situation, Sheet [place] are equal bilaterally Weakness Speech is normal, Facial droop on left. Cardiovascular: Heart tones S1 S2 present Capillary refill < 3 seconds <3 seconds in all assessable fingers and toes (bilateral hands and R foot). Clubbing of nail beds is absent JVD is absent Patient's skin is warm and dry. Pulses are 1+ in left dorsalis pedis artery are 3+ in right radial artery and left radial artery Edema is absent. Rhythm is sinus rhythm w/ LBBB. Respiratory: Airway is patent Trachea midline Respiratory effort is even, unlabored, Respiratory pattern is regular, symmetrical, Breath sounds are clear. GI: Abdomen is flat, non-distended. : No signs and/or symptoms were reported regarding the genitourinary system. Musculoskeletal: Amputation of right leg. Capillary refill < 3 seconds, in left toes. 19:30 Derm: Skin is intact, is healthy with good turgor, Wound noted R groin no mk bleeding/leaking around site of heart cath. 20:30 Reassessment: No changes from previously documented assessment. Patient is alert, mk oriented x 3, equal unlabored respirations, skin warm/dry/pink. Cardiovascular: Rhythm is sinus rhythm. 21:30 Reassessment: No changes from previously documented assessment. Patient is alert, mk oriented x 3, equal unlabored respirations, skin warm/dry/pink. Cardiovascular: Rhythm is sinus rhythm. Vital Signs: 07/31 20:59 BP 145 / 78; Pulse 88; Resp 16; Pulse Ox 100% on R/A; Pain 0/10; martinez 22:10 BP 165 / 70; Pulse 78; Resp 16; Pulse Ox 100% on 2 lpm NC; Pain 0/10; martinez 23:27 BP 171 / 73; Pulse 88; Resp 16; Pulse Ox 100% on 2 lpm NC; Pain 0/10; martinez 02/10 01:17 BP 136 / 55; Pulse 72; Resp 16; Pulse Ox 100% on NC; Pain 0/10; martinez 02:04 BP 121 / 83; Pulse 93; Resp 16; Pulse Ox 99% on 2 lpm NC; Pain 0/10; martinez 02:54 BP 161 / 69; Pulse 86; Resp 18; Pulse Ox 100% on 2 lpm NC; Pain 0/10; martinez 03:16 BP 139 / 59; Pulse 84; Resp 18; Temp 97.5; Pulse Ox 100% on 2 lpm NC; Pain 0/10; martinez 04:46 BP 137 / 61; Pulse 82; Resp 16; Pulse Ox 100% on 2 lpm NC; Pain 0/10; martinez 05:22 BP 136 / 60; Pulse 82; Resp 16; Pulse Ox 100% on 2 lpm NC; Pain 0/10; martinez 06:20 BP 136 / 64; Pulse 82; Resp 16; Temp 97.5; Pulse Ox 100% on 2 lpm NC; Pain 0/10; martinez 07:35 BP 124 / 57; Pulse 73; Resp 18; Pulse Ox 100% on 2 lpm NC; ic1 08/02 19:30 BP 109 / 52; Pulse 75; Resp 18; Pulse Ox 97% on 2 lpm NC; mk 20:30 BP 119 / 52; Pulse 75; Resp 16; Pulse Ox 97% on 2 lpm NC; mk 21:30 BP 119 / 55; Pulse 75; Resp 18; Pulse Ox 98% on 2 lpm NC; mk Nadira Coma Score: 19:30 Eye Response: spontaneous(4). Verbal Response: oriented(5). Motor Response: obeys mk commands(6). Total: 15. 20:30 Eye Response: spontaneous(4). Verbal Response: oriented(5). Motor Response: obeys mk commands(6). Total: 15. 21:30 Eye Response: spontaneous(4). Verbal Response: oriented(5). Motor Response: obeys mk commands(6). Total: 15. ED Course: 07/31 20:45 Patient arrived in ED. ja2 20:55 José Miguel Lynn MD is Attending Physician. rn 20:58 Lori Lopez RN is Primary Nurse. martinez 20:59 Placed in gown. Bed in low position. Call light in reach. Side rails up X2. Adult w/ martinez patient. ekg monitor on. Pulse ox on. NIBP on. 20:59 Oxygen administration via nasal cannula \\T\\ 2L/min. martinez 21:04 Triage completed. sm5 21:07 Arm band placed on right wrist. sm5 21:07 EKG completed in triage. Results shown to MD. 5 21:20 No provider procedures requiring assistance completed. martinez 21:34 Initial lab(s) drawn, by me, sent to lab. Inserted saline lock: 18 gauge in right upper bb arm, using aseptic technique. Blood collected. Missed attempt(s): 20 gauge in right antecubital area. Bleeding controlled, band aid applied, catheter tip intact. 21:39 Basic Metabolic Panel Sent. martinez 21:39 CBC with Diff Sent. martinez 21:39 NT PRO-BNP Sent. martinez 21:39 PT-INR Sent. martinez 21:40 XRAY Chest (1 view) In Process Unspecified. EDMS 21:40 Troponin HS Sent. martinez 23:28 Basic Metabolic Panel Sent. martinez 23:28 NT PRO-BNP Sent. martinez 23:28 Troponin HS Sent. martinez 08/01 01:48 Notified ED physician of a critical lab result(s). BGL of 793, Creatinine 6.18, Dr ronnie Lynn notified. 02:07 Justus Mireles is Hospitalizing Provider. rn 03:08 SARS-COV-2 RT PCR (Document "Date of Onset" if Symptomatic) Sent. martinez 03:55 SARS-COV-2 RT PCR (Document "Date of Onset" if Symptomatic) Sent. martinez 05:02 Patient admitted, IV remains in place. martinez 08/02 07:23 Primary Nurse role handed off by Lori Lopez RN ll1 21:09 Tracey Pack RN is Primary Nurse. mk Administered Medications: 07/31 21:46 Drug: morphine 4 mg Route: IVP; Site: right antecubital; martinez 21:46 Follow up: Response: No adverse reaction martinez 21:46 Drug: Zofran (Ondansetron) 4 mg Route: IVP; Site: right antecubital; martinez 21:46 Follow up: Response: No adverse reaction martinez 08/01 02:20 Drug: Insulin Regular Human 10 units {Co-Signature: vc1 (Deysi Kramer RN).} Route: martinez IVP; Site: right antecubital; 02:34 Follow up: Response: No adverse reaction martinez 02:20 Drug: Insulin Regular Human 10 units {Co-Signature: vc1 (Deysi Kramer RN).} Route: martinez Sub-Q; Site: abdomen; 02:33 Follow up: Response: No adverse reaction martinez 06:03 Drug: Aspirin Chewable Tablet 324 mg Route: PO; martinez 06:04 Follow up: Response: No adverse reaction martinez Outcome: 07/31 21:20 Condition: stable martinez 08/01 02:07 Decision to Hospitalize by Provider. rn 05:02 Admitted to martinez 07:36 Admitted to Med/surg room 409, with oxygen, Report called to TIFFANY Clemente. ic1 08/02 21:33 Patient left the ED. mk Signatures: Dispatcher [employer] EDMS Lori Caldwell RN RN bb Nieto, Roman, MD MD rn Lewis, Lynsay, RN RN ll1 Marie Ortiz Sarah, RN RN 5 Lori Lopez, RN RN martinez Tracey Pack, RN RN Comfort Benjamin, RN RN ic1 Deysi Kramer RN vc1
[2021-08-01] MEDS: INSULIN -REGULAR HUMAN 50 UNIT/0.5 ML ML SQ SCH ×3 (02:20→22:02)
[2021-08-01] MEDS ORDERED: INSULIN -REGULAR HUMAN 50 UNIT/0.5 ML ML ONE ×3 (02:22→22:53)
[2021-08-01] MEDS ORDERED: NITROGLYCERIN 0.4 MG/TAB SL PRN (04:02)
[2021-08-01] MEDS ORDERED: MORPHINE 2 MG/ML SYR IV PRN (04:02)
[2021-08-01] MEDS ORDERED: ONDANSETRON 4 MG/2 ML VIAL IV PRN (04:02)
--- NOTE | 2021-08-01 04:07 | P.HP ---
Certification for Inpatient Patient admitted to: Inpatient With expected LOS: <2 Midnights Patient will require the following post-hospital care: None Practitioner: I am a practitioner with admitting privileges, knowledge of patient current condition, hospital course, and medical plan of care. Services: Services provided to patient in accordance with Admission requirements found in Title 42 Section 412.3 of the Code of Federal Regulations Patient History Date of Service: 08/01/21 Reason for admission: chest pain History of Present Illness: Ms. Xavier Dominique is a 61 yo F with HTN, DM, CHF, CVA, hypothyroidism, ESRD on HD TTS who was recently discharged on the 07/27 for covid pneumonia and NSTEMI. She had a coronary angiogram that showed severe CAD with complete occlusion of RCA and R OM vessel. Decision was made for medical management and patient was told to return if she experienced chest pain. Today, she had 10/10 sharp pain in her chest radiating to down her left arm that began while she was at rest. Pain was relieved with morphine, and at bedside pain has resolved. She has lingering SOB and weakness from COVID. WBC 16.3 Hgb 9.7 Na 130 Cl 91 BUN 47 Cr 6.18 GFR 7 Glu 793 She was discharged with dexamethasone and did not take her insulin today. Received IV and SQ insulin in the ED. Allergies No Known Allergies Allergy (Verified 08/08/20 10:34) Home Medications: Amlodipine [Norvasc*] 10 mg PO DAILY 05/26/18 Levothyroxine [Synthroid*] 25 mcg PO [id number] 05/26/18 Ergocalciferol (Vitamin D2) [Vitamin D2] 50,000 unit PO DIRECTED 08/08/20 Furosemide 20 mg PO DAILY 08/08/20 Insulin -Regular Human [Novolin -R*] 12 unit SQ TIDWM 08/08/20 Ascorbic Acid [Vitamin C*] 500 mg PO DAILY #14 tablet 07/27/21 Aspirin [Aspirin EC 81 MG] 81 mg PO DAILY #30 07/27/21 Atorvastatin Calcium [Lipitor*] 40 mg PO BEDTIME #14 tab 07/27/21 Cholecalciferol (Vitamin D3) [Vitamin D 1000 Iu Tab*] 1,000 unit PO DAILY #10 tab 07/27/21 Clopidogrel Bisulfate [Plavix*] 75 mg PO DAILY #30 tablet 07/27/21 Dexamethasone [Decadron] 6 mg PO DAILY #3 tablet 07/27/21 Mometasone/Formoterol [Dulera 200 Mcg/5 Mcg Inhaler] 2 puff IH BID inhaler 07/27/21 Thiamine HCl [Vitamin B-1*] 100 mg PO DAILY #14 tablet 07/27/21 Zinc Sulfate [Zinc Sulfate*] 220 mg PO DAILY #14 cap 07/27/21 dexAMETHasone [Dexamethasone] 1 mg PO DAILY #3 tablet 07/27/21 dexAMETHasone [Dexamethasone] 2 mg PO DAILY #3 tablet 07/27/21 dexAMETHasone [Dexamethasone] 4 mg PO DAILY #3 tablet 07/27/21 - Past Medical/Surgical History Diabetic: Yes -: HTN -: IDDM -: Hypothyroidism -: stroke X2 with weakness to L eye and poor L eye vision -: ESRD w/ dialysis -: Chronic diastolic congestive heart failure -: Vit D deficiency -: COVID-19 -: cardiac stent X1 -: cholecystectomy -: L Fistula -: R BKA Psychosocial/ Personal History: Patient lives at home with family - Family History Father -: Diabetes Mother -: Heart disease, Hypertension, Diabetes - Social History Smoking Status: Former smoker Alcohol use: No CD- Drugs: No Caffeine use: No Place of Residence: Home Review of Systems 10-point ROS is otherwise unremarkable General: Weakness Eyes: Unremarkable ENT: Unremarkable Respiratory: Shortness of Breath Cardiovascular: Chest Pain Gastrointestinal: Unremarkable Genitourinary: Unremarkable Musculoskeletal: Unremarkable Integumentary: Unremarkable Neurological: Unremarkable Lymphatics: Unremarkable Physical Examination - Physical Exam General: Alert, In no apparent distress HEENT: Atraumatic, PERRLA, Mucous membr. moist/pink, EOMI, Sclerae nonicteric Neck: Supple, 2+ carotid pulse no bruit, No LAD, Without JVD or thyroid abnormality Respiratory: Diminished Cardiovascular: No edema, Regular rate/rhythm, Normal S1 S2, Systolic murmur Gastrointestinal: Normal bowel sounds, No tenderness Musculoskeletal: No tenderness Integumentary: No rashes Neurological: Normal speech, Normal strength at 5/5 x4 extr, Normal tone, Normal affect Lymphatics: No axilla or inguinal lymphadenopathy Urinary: Dialysis catheter - Studies Laboratory Data (last 24 hrs) 07/31/21 21:30: PT 11.2, INR 0.97 07/31/21 21:30: WBC 16.30 H D, Hgb 9.7 L, Hct 31.7 L, Plt Count 191 07/31/21 21:30: Sodium 130 L, Potassium 4.8, BUN 47 H D, Creatinine 6.18 H* D, Glucose 793 H* Assessment and Plan - Problems (Diagnosis) (1) Chest pain Current Visit: Yes Status: Acute Qualifiers: Chest pain type: unspecified Qualified Code(s): R07.9 - Chest pain, unspecified (2) CAD (coronary artery disease) Current Visit: Yes Status: Chronic Qualifiers: Coronary Disease-Associated Artery/Lesion type: [place] artery [place] vs. transplanted heart: [place] heart Associated angina: with unstable angina Qualified Code(s): I25.110 - Atherosclerotic heart disease of [place] coronary artery with unstable angina pectoris (3) CVA (cerebral vascular accident) Onset Date: 05/26/18 Current Visit: No Status: Chronic Qualifiers: CVA mechanism: unspecified Qualified Code(s): I63.9 - Cerebral infarction, unspecified (4) DM2 (diabetes mellitus, type 2) Onset Date: 05/26/18 Current Visit: No Status: Chronic Qualifiers: Diabetes mellitus terminal carman insulin use: with terminal carman use Diabetes mellitus complication status: with hyperglycemia Qualified Code(s): E11.65 - Type 2 diabetes mellitus with hyperglycemia; Z79.4 - assisted (current) use of insulin (5) ESRD (end stage renal disease) Current Visit: No Status: Chronic (6) HTN (hypertension) Onset Date: 05/26/18 Current Visit: No Status: Chronic Qualifiers: Hypertension type: primary hypertension Qualified Code(s): I10 - Essential (primary) hypertension - Plan cardiology consulted trend troponins, repeat ekg daily aspirin, beta vern, statin, PRN morphine and nitroglycerin lipid and thyroid levels pending A1c pending, sliding scale insulin, q1hr BG checks renal diet, nephrology consulted for dialysis hydralazine PRN for BP spikes DVT ppx Discharge Plan: Home Plan to discharge in: 24 Hours - Advance Directives Does patient have a Living Will: No Does patient have a Durable POA for Healthcare: No - Code Status/Comfort Care Code Status Assessed: Yes (full code ) Critical Care: No Time Spent Managing Pts Care (In Minutes): 70
[2021-08-01] MEDS ORDERED: METOPROLOL TAR 25 MG TAB ONE (04:59)
[2021-08-01 05:19] LABS: Troponin High Sensitivity 183.5 pg/mL (<58.9)
[2021-08-01] MEDS: METOPROLOL TAR 25 MG TAB PO SCH (05:43)
[2021-08-01] MEDS ORDERED: ASPIRIN 81 MG CHEWABLE TABLET ONE (06:02)
[2021-08-01] MEDS ORDERED: HEPARIN/D5W 25,000 UNIT/500 ML BAG IV PRN (08:15)
[2021-08-01 08:29] VITALS: BMI 21.7
[2021-08-01] MEDS ORDERED: HEPARIN/D5W 25,000 UNIT/500 ML BAG IV ONE (08:37)
[2021-08-01] MEDS ORDERED: ASPIRIN 325 MG TAB ONE (08:53)
[2021-08-01] MEDS: ASPIRIN EC 81 MG TAB PO SCH (09:00)
[2021-08-01] MEDS ORDERED: HEPARIN 5000 UNIT/ML 1 ML VIAL SQ SCH (09:00)
[2021-08-01 09:48] LABS: Absolute Lymphocytes (CBC) 2.2 K/uL (0.7-4.9); Hematocrit 29.4 % (36.0-45.0); Lymphocytes % 14.3 % (15.3-44.8); MPV 10.5 fL (7.6-11.3); Protime INR 0.93
[2021-08-01] MEDS ORDERED: EPOETIN 4,000 UNIT/ML VIAL IV SCH (11:15)
--- NOTE | 2021-08-01 11:55 | CON ---
Date of Consultation: 08/01/2021 Reason For Consultation: Elevated BUN and creatinine. History Of Present Illness: This is a 61-year-old female, well known to me from the dialysis with si gnificant past medical history of CAD, status post DC, recently status post cardiac cath complicated with congestive heart failure, PAD, status post right below-knee amputation, status post angioplasty, end-stage renal disease, on hemodialysis at [facility] through left arm AV fistu la, diabetes complicated with neuropathy and nephropathy, hypertension, hyperlipidemia, CVA, the neo ent recently admitted to the hospital with COVID pneumonia, unstable angina with DC. The patient had cardiac cath, treated and recovered. Decision made for medical therapy. The patient was discharged apparently. Yesterday, the patient developed another chest pain, retrosternal, radiating to the teddy ulder with numbness on the left arm. For that reason, reported to the hospital. Upon arrival to the hospital, found to be slightly on the over volume side. The patient is due for dialysis today. For that reason, we have been consulted. Her chest pain completely resolved after the morphine. Past Medical History: Includes; 1.End-stage renal disease, on hemodialysis, TTS. 2.Diabetes complicated with neuropathy and nephropathy. 3.Hypothyroidism. 4.CVA, no residual. 5.Hypertension. 6.CAD, status post DC, status post PTCA, status post catheterization this month. 7.PAD, status post right below-knee amputation. Past Surgical History: Includes cardiac cath, cholecystectomy, AV fistula, right below-knee amputati on. Allergies: NO KNOWN DRUG ALLERGIES. Family History: Positive for diabetes, hypertension, and CAD. Social History: Denied smoking, denied drinking, denied drugs abuse. Review of Systems: Head and Neck: No red eye. No ear pain. GI: No nausea. No vomiting. : No polyuria. No dysuria. No hematuria. Behavior Therapist: No vaginal discharge. Respiratory: No shortness of breath. Cardiovascular: Has chest pain. Endocrine: No polydipsia. Skin: No rash. Neuro: Has neuropathy. Musculoskeletal: No joint pain. Physical Examination: General: When I saw the patient; the patient lying in bed, not in any distress. Vital Signs: Blood pressure of 109/50, pulse of 79, afebrile. Chest: Faint rales bilateral. Heart: S1, S2. Systolic murmur. Abdomen: Soft, nontender. Extremity: Right below-knee amputation. AV fistula, good thrill. Neurological: Alert, oriented x3. No focality. Laboratory Data: WBC 15.5, H and H 9.1/29.4. Sodium 130, potassium 4.8, bicarb 28, BUN 47, creatini ne 6.1, calcium 8.9. BNP 31,000. Current Medications: The patient on include; 1.Heparin drip. 2.Aspirin. 3.Atorvastatin. 4.Metoprolol. 5.Insulin. 6.Morphine p.r.n. Assessment And Plan: 1.End-stage renal disease with over volume. I am going to dialyze the patient today per her schedul e and we will follow up. 2.Hypertension, currently blood pressure on the low margin. We will utilize the blood pressure to e stablish better volume control. 3.Anemia of chronic kidney disease. Resume PRASHANT. 4.Secondary hyperparathyroidism. We will continue to monitor. 5.Hyponatremia secondary to dilutional/cardiorenal, stable. Will be corrected with dialysis. 6.Coronary artery disease, congestive heart failure. We will follow up with Cardiology. We will tr y to establish better volume control with dialysis. Thank you, Dr. Mireles for allowing us to participate in the care of your patient. RAQUEL/EDOUARD Voice ID: [id number] Report ID: [id number]
--- NOTE | 2021-08-01 15:52 | P.PN ---
Date of Service: 08/01/21 Patient troponin trended up to 8757. Patient denies any chest pain at the moment. She endorsed typical chest pain last night. Vitals are stable. Diagnosis: NSTEMI CAD. History of coronary artery occlusion. Case discussed with cardiology. Heparin drip for NSTEMI. Dr. Lara is planning cardiac catheterization tomorrow. Nephrology consulted for hemodialysis. Supportive measures. NTG as needed for chest pain. Aspirin, Plavix, metoprolol and Lipitor.
[2021-08-01] MEDS: CLOPIDOGREL 75 MG TABLET PO SCH (16:15)
[2021-08-01] MEDS ORDERED: LIDOCAINE 1% W/EPI 1:100,000 MDV 50 ML VIAL ONE (16:20)
--- NOTE | 2021-08-01 17:28 | RAD REPORT ---
EXAM DESCRIPTION: RAD - Chest Single View - 08/01/2021 5:22 pm CLINICAL HISTORY: Right IJ placement COMPARISON: Chest Single View dated 07/31/2021; Chest Single View dated 07/24/2021; Chest Single View da niya 07/22/2021; Chest Pa And Lat (2 Views) dated 08/10/2020 FINDINGS: Lines: Left IJ approach central line with tip overlying the right atrium. Lungs: Widespread bilateral airspace disease is unchanged. Pleural: No significant pleural effusions or pneumothorax. Cardiac: Cardiomegaly. Bones: No acute fractures. Other: IMPRESSION: Interval placement of a left IJ approach central venous line with tip overlying the righ t atrium in satisfactory position. No pneumothorax . Similar aeration of the lungs with mild widespre ad bilateral airspace disease.
[2021-08-01] MEDS ORDERED: ACETAMINOPHEN 500 MG TAB ONE (17:42)
[2021-08-01] MEDS: ACETAMINOPHEN 500 MG TAB PO PRN (17:43)
--- NOTE | 2021-08-01 18:13 | CON ---
Date of Consultation: 08/01/2021 Reason For Consultation: Chest pain. History Of Present Illness: A 61-year-old female with history of hypertension, diabetes, CHF, severe hypothyroidism, end-stage renal disease, on hemodialysis, presented with chest pain started last nig ht. It was pressure-like, crushing type with nausea, and completely resolved by now. Recently, she had a non-STEMI and had a coronary angiogram, but no intervention. Known to have coronary artery dis ease. Past Medical History: She has history of diabetes, coronary artery disease, end-stage renal disease, hypertension, hypothyroidism. Medications: Refer to reconciliation sheet for detailed list. Allergies: NO KNOWN DRUG ALLERGIES. Family History: No premature coronary artery disease or cancer. Social History: Does not smoke or drink. Does not use any drugs. Review of Systems: All systems reviewed and they were negative except for what mentioned in HPI. Physical Examination: Vital Signs: Reviewed. Head and Neck: Pupils are equal, reactive to light. Intact eye movements. No JVD. No cervical lym phadenopathy. Neck is supple. Thyroid is not enlarged. Lungs: Clear to auscultation bilaterally. No rhonchi, rales, or crackles. No accessory muscle use. Heart: Regular rate and rhythm. No extra sounds. Abdomen: Soft, nontender. Bowel sounds positive. No organomegaly. No masses or hernia. No rigidi ty or rebound. Extremities: No clubbing or cyanosis. Intact pulses. Skin: No rashes. Neuro: Alert, awake, oriented x3. No acute focal deficits appreciated. Investigations: Troponin 8757. EKG, no ST elevation; however, there was ST depression in lateral le ads. Assessment And Recommendations: Non-ST elevation myocardial infarction, started on heparin drip, low -dose aspirin and plan for coronary angiogram with possible percutaneous coronary intervention tomorr ow morning. The patient is chest pain free. For pain control, we will use nitroglycerin and morphin e and please obtain an echocardiogram as well and trend troponin further until it trends down. Keep the patient n.p.o. past midnight for coronary angiogram in the morning. SR/MODL Voice ID: [id number] Report ID: [id number]
[2021-08-01 18:30] LABS: Thyroid Stimulating Hormone 2.17 uIU/mL (0.360-3.740)
[2021-08-01] MEDS ORDERED: HEPARIN 5000 UNIT/ML 1 ML VIAL ONE (20:48)
[2021-08-01] MEDS: ATORVASTATIN 40 MG TAB PO SCH (21:00)
[2021-08-01] MEDS ORDERED: HEPARIN 5000 UNIT/ML 1 ML VIAL IV SCH (22:00)
[2021-08-01] MEDS ORDERED: ATORVASTATIN 20 MG TAB ONE (22:09)
[2021-08-02] MEDS ORDERED: ONDANSETRON 4 MG/2 ML VIAL ONE ×2 (00:12→06:52)
[2021-08-02] MEDS: INSULIN -REGULAR HUMAN 50 UNIT/0.5 ML ML SQ SCH ×3 (04:02→16:02)
[2021-08-02] MEDS ORDERED: INSULIN -REGULAR HUMAN 50 UNIT/0.5 ML ML ONE ×2 (04:52→13:41)
[2021-08-02] MEDS: METOPROLOL TAR 25 MG TAB PO SCH ×2 (06:00→17:59)
[2021-08-02] MEDS: LEVOTHYROXINE SOD 0.025 MG TAB PO SCH (06:00)
[2021-08-02] MEDS ORDERED: METOPROLOL TAR 25 MG TAB ONE (06:15)
[2021-08-02] MEDS ORDERED: LIDOCAINE 1% 20 ML MDV ONE ×2 (06:24→11:01)
[2021-08-02] MEDS ORDERED: HEPA 1000U/500MLS 2,000 UNIT/1,000 ML BAG IV ONE (06:24)
[2021-08-02 06:29] LABS: Absolute Lymphocytes (CBC) 2.5 K/uL (0.7-4.9); Hematocrit 25.6 % (36.0-45.0); Lymphocytes % 17.2 % (15.3-44.8); MPV 10.6 fL (7.6-11.3); RBC Red Blood Cell Count 2.97 M/uL (3.86-4.86)
--- NOTE | 2021-08-02 06:42 | P.PN ---
Subjective Date of Service: 08/02/21 Chief Complaint: chest pain Subjective: No new changes Physical Examination - Vital Signs Temperature: 98.6 F Blood Pressure: 145/64 Pulse: 94 Respirations: 20 Pulse Ox (%): 100 - Physical Exam General: Other (appears chronically ill) HEENT: Atraumatic, Normocephalic Neck: Supple, JVD not distended Respiratory: Other (symmetric chest expansion) Cardiovascular: No rubs, No murmurs Gastrointestinal: Soft and benign, No guarding Musculoskeletal: No clubbing Integumentary: No warmth Neurological: Normal tone Urinary: Other (no bladder distention) External genitalia: Deferred Rectal: Deferred Assessment And Plan - Plan 1. End-stage renal disease on outpt HD qMWF at [facility], with volume overload. HD today. 2. Hypertension. Cont current BP med regimen. 3. Anemia of chronic kidney disease. PRASHANT qMWF. 4. Secondary hyperparathyroidism. Monitor Ca & Phos. 5. Hyponatremia secondary to dilutional/cardiorenal, stable. Will be corrected with dialysis. 6. Coronary artery disease, congestive heart failure. Cont cardioprudent meds.
[2021-08-02] MEDS ORDERED: FENTANYL CITR 100 MCG/2 ML ONE (06:48)
[2021-08-02] MEDS ORDERED: HEPARIN 5000 UNIT/ML 1 ML VIAL ONE (06:48)
[2021-08-02] MEDS ORDERED: TICAGRELOR 90 MG TABLET PO ONE (06:49)
[2021-08-02] MEDS ORDERED: MIDAZOLAM HCL 2 MG/2 ML INJ ONE (06:49)
[2021-08-02] MEDS ORDERED: VERAPAMIL HCL 10 MG/4 ML VIAL IV ONE (06:49)
[2021-08-02] MEDS ORDERED: ASPIRIN 325 MG TAB ONE (06:49)
[2021-08-02] MEDS ORDERED: CLOPIDOGREL 75 MG TABLET ONE (06:49)
[2021-08-02 06:50] LABS: Albumin 2.5 g/dL (3.4-5.0); Bilirubin Total 0.3 mg/dL (0.2-1.0); Phosphorus 5.9 mg/dL (2.5-4.9); Potassium 4.6 mmol/L (3.5-5.1); Protein, Total 5.9 g/dL (6.4-8.2)
[2021-08-02] MEDS ORDERED: ATROPINE SULF 1 MG/10 ML SYR IV ONE (06:50)
[2021-08-02] MEDS ORDERED: NA CHLORIDE 0.9% 500 ML ONE (07:12)
[2021-08-02] MEDS ORDERED: HEPARIN 10,000 UNIT/10 ML VIAL IV ONE (07:33)
[2021-08-02] MEDS ORDERED: HEPA 1000U/500MLS 1,000 UNIT/500 ML BAG IV ONE (08:29)
[2021-08-02] MEDS: ASPIRIN EC 81 MG TAB PO SCH (09:00)
[2021-08-02] MEDS: CLOPIDOGREL 75 MG TABLET PO SCH (09:00)
--- NOTE | 2021-08-02 16:38 | P.PN ---
Subjective Date of Service: 08/02/21 Chief Complaint: chest pain Seen after cardiac catheterization. She has no complaint. Blood pressure a little elevated. Physical Examination - Vital Signs Temperature: 98.5 F Blood Pressure: 125/54 Pulse: 75 Respirations: 18 Pulse Ox (%): 100 - Physical Exam General: Alert, In no apparent distress, Oriented x3 HEENT: Mucous membr. moist/pink Neck: JVD not distended, Other (Left IJ central venous access) Respiratory: Clear to auscultation bilaterally, Normal air movement Cardiovascular: No edema, Regular rate/rhythm, Normal S1 S2 Gastrointestinal: Normal bowel sounds, Soft and benign, Non-distended, No tenderness Musculoskeletal: No swelling Integumentary: No rashes, No cyanosis Neurological: Normal speech, Normal strength at 5/5 x4 extr Assessment And Plan - Current Problems (Diagnosis) (1) Chest pain Current Visit: Yes Status: Acute Qualifiers: Chest pain type: unspecified Qualified Code(s): R07.9 - Chest pain, unspecified (2) CAD (coronary artery disease) Current Visit: Yes Status: Chronic Qualifiers: Coronary Disease-Associated Artery/Lesion type: [place] artery [place] vs. transplanted heart: [place] heart Associated angina: with unstable angina Qualified Code(s): I25.110 - Atherosclerotic heart disease of [place] coronary artery with unstable angina pectoris (3) DM2 (diabetes mellitus, type 2) Onset Date: 05/26/18 Current Visit: No Status: Chronic Qualifiers: Diabetes mellitus ferry terminal supervisor insulin use: with ferry terminal supervisor use Diabetes mellitus complication status: with hyperglycemia Qualified Code(s): E11.65 - Type 2 diabetes mellitus with hyperglycemia; Z79.4 - emt intermediate (current) use of insulin (4) ESRD (end stage renal disease) Current Visit: No Status: Chronic (5) HTN (hypertension) Onset Date: 05/26/18 Current Visit: No Status: Chronic Qualifiers: Hypertension type: primary hypertension Qualified Code(s): I10 - Essential (primary) hypertension (6) NSTEMI (non-ST elevated myocardial infarction) Current Visit: Yes Status: Acute - Plan Status post cardiac catheterization. Patient had LAD stenting for critical occlusion. He has other occlusions including in-stent occlusion unamenable to intervention. She is currently chest pain-free. Aspirin, Plavix, metoprolol, statin. Start Imdur. Nephrology is following for hemodialysis. Patient to have hemodialysis today. Continue insulin sliding scale. Add home dose premeal insulin. Possible discharge in a.m. if she remains stable.
[2021-08-02 17:10] LABS: Magnesium 2.1
[2021-08-02] MEDS ORDERED: ACETAMINOPHEN 500 MG TAB ONE (17:41)
[2021-08-02] MEDS: ACETAMINOPHEN 500 MG TAB PO PRN (17:42)
[2021-08-02] MEDS: ATORVASTATIN 40 MG TAB PO SCH (22:25)
[2021-08-03] MEDS: ACETAMINOPHEN 500 MG TAB PO PRN (01:14)
[2021-08-03] MEDS: METOPROLOL TAR 25 MG TAB PO SCH ×2 (06:00→17:42)
[2021-08-03] MEDS: LEVOTHYROXINE SOD 0.025 MG TAB PO SCH (06:03)
[2021-08-03 06:30] LABS: Absolute Lymphocytes (CBC) 2.1 K/uL (0.7-4.9); Hematocrit 21.4 % (36.0-45.0); Lymphocytes % 16.6 % (15.3-44.8); MPV 10.7 fL (7.6-11.3); RBC Red Blood Cell Count 2.48 M/uL (3.86-4.86)
[2021-08-03] MEDS: ASPIRIN EC 81 MG TAB PO SCH (08:41)
[2021-08-03] MEDS: CLOPIDOGREL 75 MG TABLET PO SCH (08:41)
[2021-08-03] MEDS: INSULIN -REGULAR HUMAN 50 UNIT/0.5 ML ML SQ SCH ×3 (08:41→16:30)
[2021-08-03 08:42] LABS: Absolute Lymphocytes (CBC) 2.3 K/uL (0.7-4.9); Hematocrit 21.6 % (36.0-45.0); Lymphocytes % 18.3 % (15.3-44.8); MPV 10.8 fL (7.6-11.3)
[2021-08-03 09:41] LABS: Potassium 4.6 mmol/L (3.5-5.1)
[2021-08-03 09:43] LABS: Bilirubin Total 0.3 mg/dL (0.2-1.0); Phosphorus 4.8 mg/dL (2.5-4.9); Protein, Total 5.2 g/dL (6.4-8.2)
[2021-08-03 09:45] LABS: Albumin 2.2 g/dL (3.4-5.0)
[2021-08-03] MEDS ORDERED: NA CHLORIDE 0.9% 250 ML ONE (10:36)
--- NOTE | 2021-08-03 12:53 | P.DS ---
Admission Date: 08/01/21 Discharge Date: 08/03/21 Disposition: ROUTINE DISCHARGE Discharge Condition: FAIR Reason for Admission: chest pain - Problems (1) Chest pain Current Visit: Yes Status: Acute Qualifiers: Chest pain type: unspecified Qualified Code(s): R07.9 - Chest pain, unspecified (2) CAD (coronary artery disease) Current Visit: Yes Status: Chronic Qualifiers: Coronary Disease-Associated Artery/Lesion type: [place] artery [place] vs. transplanted heart: [place] heart Associated angina: with unstable angina Qualified Code(s): I25.110 - Atherosclerotic heart disease of [place] coronary artery with unstable angina pectoris (3) DM2 (diabetes mellitus, type 2) Onset Date: 05/26/18 Current Visit: No Status: Chronic Qualifiers: Diabetes mellitus film developer insulin use: with intermediate use Diabetes mellitus complication status: with hyperglycemia Qualified Code(s): E11.65 - Type 2 diabetes mellitus with hyperglycemia; Z79.4 - senior care (current) use of insulin (4) ESRD (end stage renal disease) Current Visit: No Status: Chronic (5) HTN (hypertension) Onset Date: 05/26/18 Current Visit: No Status: Chronic Qualifiers: Hypertension type: primary hypertension Qualified Code(s): I10 - Essential (primary) hypertension (6) NSTEMI (non-ST elevated myocardial infarction) Current Visit: Yes Status: Acute Brief History of Present Illness: Ms. Xavier Dominique is a 61 yo F with HTN, DM, CHF, CVA, hypothyroidism, ESRD on HD TTS who was recently discharged on the 07/27 for covid pneumonia and NSTEMI. She had a coronary angiogram that showed severe CAD with complete occlusion of RCA and R OM vessel. Decision was made for medical management and patient was told to return if she experienced chest pain. She experienced 10/10 sharp pain in her chest radiating to down her left arm that began while she was at rest. Pain was relieved with morphine, and at bedside pain has resolved. She reported SOB and weakness. WBC 16.3 Hgb 9.7 Na 130 Cl 91 BUN 47 Cr 6.18 GFR 7 Glu 79.3. Initial troponin was mildly elevated. Patient admitted for NSTEMI. Hospital Course: Patient admitted to the medical floor and troponin trended. Patient troponin trended high. She was started on heparin drip for NSTEMI. She was evaluated by cardiology-Dr. Lara who performed cardiac catheterization and stented her LAD. Dr. Lara report other significant coronary artery disease at occlusions unamenable to intervention. CAD being treated with aspirin, Plavix, metoprolol and statin. Dr. Lara also recommend Imdur for angina. Patient underwent hemodialysis after the cardiac catheterization. She was also transfused 1 unit PRBC for hemoglobin of 6.7. Iron profile ordered and the result is pending. Patient is receiving erythropoietin with hemodialysis. Patient deemed stable for discharge per Cardiology. Vital Signs/Physical Exam: Temp Pulse Resp BP Pulse Ox 98.3 F 86 18 120/56 L 100 08/03/21 11:04 08/03/21 11:04 08/03/21 11:04 08/03/21 11:04 08/03/21 11:04 General: Alert, In no apparent distress, Oriented x3 HEENT: Mucous membr. moist/pink Neck: Supple, JVD not distended Respiratory: Clear to auscultation bilaterally, Normal air movement Cardiovascular: No edema, Regular rate/rhythm, Normal S1 S2 Gastrointestinal: Normal bowel sounds, Soft and benign, Non-distended, No tenderness Musculoskeletal: No swelling, No tenderness Integumentary: No rashes, No cyanosis Neurological: Normal strength at 5/5 x4 extr Laboratory Data at Discharge: WBC 12.30 K/uL (4.3-10.9) H 08/03/21 08:00 Hgb 6.7 g/dL (12.0-15.0) L* 08/03/21 08:00 Hct 21.6 % (36.0-45.0) L 08/03/21 08:00 Plt Count 141 K/uL (152-406) L 08/03/21 08:00 PT 10.7 SECONDS (9.5-12.5) 08/01/21 09:26 INR 0.93 08/01/21 09:26 APTT 156.8 SECONDS (24.3-36.9) H* 08/02/21 04:20 Sodium 135 mmol/L (136-145) L 08/03/21 05:51 Potassium 4.6 mmol/L (3.5-5.1) 08/03/21 05:51 BUN 39 mg/dL (7-18) H D 08/03/21 05:51 Creatinine 5.76 mg/dL (0.55-1.3) H* D 08/03/21 05:51 Glucose 173 mg/dL (74-106) H 08/03/21 05:51 Phosphorus 4.8 mg/dL (2.5-4.9) 08/03/21 05:51 Magnesium 2.1 08/02/21 06:00 Total Bilirubin 0.3 mg/dL (0.2-1.0) 08/03/21 05:51 AST 22 U/L (15-37) 08/03/21 05:51 ALT 16 U/L (12-78) 08/03/21 05:51 Alkaline Phosphatase 75 U/L (45-117) 08/03/21 05:51 Triglycerides 39 mg/dL (<150) 08/02/21 06:00 Cholesterol 112 mg/dL (<200) 08/02/21 06:00 HDL Cholesterol 78 mg/dL (40-60) H 08/02/21 06:00 Cholesterol/HDL Ratio 1.44 08/02/21 06:00 Home Medications: Levothyroxine [Synthroid*] 25 mcg PO [id number] 05/26/18 Ergocalciferol (Vitamin D2) [Vitamin D2] 50,000 unit PO DIRECTED 08/08/20 Furosemide 20 mg PO DAILY 08/08/20 Insulin -Regular Human [Novolin -R*] 12 unit SQ TIDWM 08/08/20 Ascorbic Acid [Vitamin C*] 500 mg PO DAILY #14 tablet 07/27/21 Aspirin [Aspirin EC 81 MG] 81 mg PO DAILY #30 07/27/21 Atorvastatin Calcium [Lipitor*] 40 mg PO BEDTIME #14 tab 07/27/21 Cholecalciferol (Vitamin D3) [Vitamin D 1000 Iu Tab*] 1,000 unit PO DAILY #10 tab 07/27/21 Clopidogrel Bisulfate [Plavix*] 75 mg PO DAILY #30 tablet 07/27/21 Mometasone/Formoterol [Dulera 200 Mcg/5 Mcg Inhaler] 2 puff IH BID inhaler 07/27/21 Thiamine HCl [Vitamin B-1*] 100 mg PO DAILY #14 tablet 07/27/21 Zinc Sulfate [Zinc Sulfate*] 220 mg PO DAILY #14 cap 07/27/21 Epoetin [Retacrit] 4,000 unit IV EVERY HD vial 08/03/21 Heparin [Heparin 1,000 units/mL *] 4,000 unit IV EVERY HD PRN vial 08/03/21 Isosorbide Mononitrate [Isosorbide Mononitrate ER] 30 mg PO DAILY #30 tab.er.24h 08/03/21 Metoprolol Tartrate [Lopressor*] 12.5 mg PO BID 6AM 6PM #60 tab 08/03/21 New Medications: Isosorbide Mononitrate [Isosorbide Mononitrate ER] 30 mg PO DAILY #30 tab.er.24h Metoprolol Tartrate [Lopressor*] 12.5 mg PO BID 6AM 6PM #60 tab Diet: Renal Activity: Ad marlin Followup: Keegan Lara MD [ACTIVE - CAN ADMIT] - 1 Week Unknown,U [Primary Care Provider] - Time spent managing pt's care (in minutes): 35
[2021-08-03 16:45] LABS: Hematocrit 30.6 % (36.0-45.0)
[2021-08-03 17:23] VITALS: BP 150/66; TEMP 976
[2021-08-03] MEDS ORDERED: D50W 25 GM/50 ML SYRINGE IV PRN (17:24)
--- NOTE | 2021-08-03 17:32 | P.PN ---
Subjective Date of Service: 08/03/21 Chief Complaint: chest pain Today tolertaed HD yesterday with no cmplications hypoglycemic S/P 1 PRBC Physical exam General: Awake, NAD, thin CHEST; CTAB, no wheezes or rales HEART : RRR. Normal S1,2 systolic murmur Abd: soft, Nt Ext: no edema , rt BKA Skin : No rash 1. End-stage renal disease on outpt HD qMWF at [facility], with volume overload. HD today. 2. Hypertension. Cont current BP med regimen. 3. Anemia of chronic kidney disease. PRASHANT qMWF., S/p PRBC 4. Secondary hyperparathyroidism. Monitor Ca & Phos. 5. Hyponatremia secondary to dilutional/cardiorenal, stable. Will be corrected with dialysis. 6. Coronary artery disease, congestive heart failure. Cont cardioprudent meds. 7. hypoglycemia; off insulin , monitor BS Physical Examination - Vital Signs Temperature: 976 F Blood Pressure: 150/66 Pulse: 80 Respirations: 20 Pulse Ox (%): 98
[2021-08-03 18:18] VITALS: O2SAT 98
== END 2021-08-03 19:30 | disposition home or self-care (01) | DRG 246 ==
LOC: ER 20:44 → ERHOLD 08-01 03:25 → 4TH 08-01 07:34 → ERHOLD 08-01 08:18 → 4TH 08-02 21:17
PROVIDERS: ADMIT Internal Medicine; ATTEND Internal Medicine
PROC: 05HN33Z Insertion of Infusion Device into Left Internal Jugular Vein, Percutaneous Approach (ICD-10-PCS; 2021-08-01)
PROC: 027034Z Dilation of Coronary Artery, One Artery with Drug-eluting Intraluminal Device, Percutaneous Approach (ICD-10-PCS; principal; 2021-08-02)
PROC: 4A023N7 Measurement of Cardiac Sampling and Pressure, Left Heart, Percutaneous Approach (ICD-10-PCS; 2021-08-02)
PROC: 5A1D70Z Performance of Urinary Filtration, Intermittent, Less than 6 Hours Per Day (ICD-10-PCS; 2021-08-02)
DX: I22.2 Subsequent non-ST elevation (NSTEMI) myocardial infarction (principal); N18.6 End stage renal disease; U07.1 COVID-19; I13.2 Hypertensive heart and chronic kidney disease with heart failure and with stage 5 chronic kidney disease, or end stage renal disease; I50.32 Chronic diastolic (congestive) heart failure; E87.1 Hypo-osmolality and hyponatremia; N25.81 Secondary hyperparathyroidism of renal origin; I21.4 Non-ST elevation (NSTEMI) myocardial infarction; I25.110 Atherosclerotic heart disease of native coronary artery with unstable angina pectoris; E11.22 Type 2 diabetes mellitus with diabetic chronic kidney disease; E11.21 Type 2 diabetes mellitus with diabetic nephropathy; E11.40 Type 2 diabetes mellitus with diabetic neuropathy, unspecified; E03.9 Hypothyroidism, unspecified; D63.1 Anemia in chronic kidney disease; E11.649 Type 2 diabetes mellitus with hypoglycemia without coma; Z89.511 Acquired absence of right leg below knee; Z79.4 Long term (current) use of insulin; Z86.73 Personal history of transient ischemic attack (TIA), and cerebral infarction without residual deficits
CPT/HCPCS: 36415; 36430; 71045; 80048; 80053; 80061; 80069; 82947; 83036; 83540; 83735; 83880; 84439; 84443; 84466; 84484; 85014; 85018; 85025; 85049; 85347; 85610; 85730; 86850; 86900; 86901; 87040; 90935; 93005; 93458; 94760; 96372; 96374; 96375; 99285; C1725; C1893; C9600; J1644; J2250; J2405; J3010; J7040; J7050; P9016; U0003

== ENCOUNTER 2022-03-05 16:01 | Emergency (ER) | payer OTHER ==
--- OUTSIDE RECORDS SUMMARY | 2022-03-05 16:12 | XMS REPORT | Continuity of Care Document ---
:1960 Author Organization [facility] t Address [address] [place] [address] Care Team Providers Name Role Phone Pcp, Patient Does Not Have A Primary Care Physician +[id number] Doctor Unassigned, Road Runner Attending Clinician Unavailable Shoaib [place] Attending Clinician Ariela Khalil Attending Clinician Ariela Khalil Admitting Clinician Payers Payer Name Policy Type Policy Number Effective Date Expiration Date S ource Problems Condition Condition Condition Status Onset Resolution Last Treating Co mments Source Name Details Category Date Date Treatment Clinician Date Thyroid Thyroid Disease Active 2018-06 [facility] nodule nodule 2-13 ity of 00:00: [place] [facility] Acquired Acquired Disease Active 2018-06 [facility] rs hypothyroi hypothyroi 2-13 it y of dism dism 00:00: [place] 00 [facility] 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-13 ity of mellitus mellitus 00:00: [place] with with Medical diabetic diabetic Branch polyneurop polyneurop athy, athy, without without long-term long-term current current use of use of insulin insulin History of History of Disease Active 2018-06 [facility] nivers cerebrovas cerebrovas 2-13 it y of cular cular 00:00: [place] disease disease 00 Medical Branch Amputated Amputated Disease Active 2018-06 [facility] vers right leg right leg 2-13 ity of 00:00: [place] 00 [facility] N N Active Diagnosis Active 2018-08-20 Memoria 07/13/201807-13 16:53:00 l MH 00:00: [place] 00 Cerebral Cerebral Problem Active 2020-06-10 [facility] hemorrhage hemorrhage 01:37:21 l (disorder) (disorder) [place] [facility] Active Problem 06/10/2020 [facility] Diabetes Diabetes Problem Active 2020-06-10 [facility] mellitus mellitus 01:37:21 l (disorder) (disorder) [place] Active Problem 06/10/2020 [facility] Dizziness Dizziness Problem Active 2020-06-10 [facility] (finding) (finding) 01:37:21 l Active [place] Problem 06/10/2020 [facility] 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 01:37:21 l failure on failure on [facility] dialysis dialysis (disorder) (disorder) Active Problem 06/10/2020 [facility] Headache Headache Problem Active 2020-06-10 [facility] (finding) (finding) 01:37:21 l Active [place] Problem 06/10/2020 [facility] Hypertensi Hypertens Problem Active 2020-06-10 [facility] ve carmen 01:37:21 l disorder, disorder, Herm nilay systemic systemic arterial arterial (disorder) (disorder) Active Problem 06/10/2020 [facility] Hyperlipid Hyperlipi Problem Active 2020-06-10 [facility] emia demia 01:37:21 l (disorder) (disorder) [place] Active Problem 06/10/2020 [facility] Hypothyroi Hypothyro Problem Active 2020-06-10 [facility] dism idism 01:37:21 l (disorder) (disorder) [place] [facility] Active Problem 06/10/2020 [facility] Lumbar Lumbar Problem Active 2020-06-10 Mem oria radiculopa radiculopa 01:37:21 l thy thy [place] (disorder) (disorder) Active Problem 06/10/2020 [facility] Paresthesi Paresthes Problem Active 2020-06-10 Memoria a ia 01:37:21 l (finding) (finding) Herm nilay Active Problem 06/10/2020 [facility] Peripheral Periphera Problem Active 2020-06-10 [facility] nerve l nerve 01:37:21 l disease disease [place] (disorder) (disorder) Active Problem 06/10/2020 [facility] Allergies, Adverse Reactions, Alerts Allergy Allergy Status Severity Reaction(s) Onset Inactive Treating Comm ents Source Name Type Date Date Clinician No Known DA Active [facility] Social [facility] Social Habit Start Date Stop Date Quantity Comments Source Tobacco use and 2019-06-03 2019-06-03 Smokeless tobacco Un iversity of exposure 00:00:00 00:00:00 non-user [facility] Sex Assigned At [birth year] ROSELINE Mix 00:00:00 00:00:00 [facility] Smoking Status Start Date Stop Date Source Social History [facility] Medications Ordered Filled Start Stop Current Ordering Indication Dosage Frequency Signature Comments Components Source Medication Medication Date Date Medication? Clinician (SIG) Name Name TOME DIXIE No 4 (1) 8-11 TABLETA(S) 00:00: [place] 00 DIARIO. TOME DIXIE No 10 (1) 8-11 TABLETA(S) 00:00: [place] 00 AL ACOSTARSE. TOME DIXIE No 10 (1) 8-11 TABLETA(S) 00:00: [place] 00 DIXIE VEZ AL TAMIKO. TOME DIXIE No 4 (1) 8-11 TABLETA(S) 00:00: [place] 00 DIARIO. TOME DIXIE No 10 (1) 8-11 TABLETA(S) 00:00: [place] 00 AL ACOSTARSE. TOME DIXIE No 10 (1) 8-11 TABLETA(S) 00:00: [place] 00 DIXIE VEZ AL TAMIKO. Dose No 800 Unknown 8-10 00:00: 00 Dose No Unknown 8-10 00:00: 00 Dose No Unknown 8-10 00:00: 00 Dose 2-0 No 4 Unknown 8 00:00: 00 Dose 2022-0 No 6 Unknown 810 00:00: 00 TOME DOS 2021-0 No 100 (2) 8-10 CAPSULA(S) 00:00: [place] 00 GREGORIA VECES AL TAMIKO. INJECT 2021-0 No [id number] TWICE DAILY 8-10 PER SLIDING 00:00: SCALE. 00 Dose 2021-0 No 800 Unknown 8 00:00: 00 Dose 2021-0 No Unknown 8 00:00: 00 Dose 2021-0 No Unknown 8 00:00: 00 Dose 2021-0 No 4 Unknown 01-29 00:00: 00 Dose 2021-0 No 6 Unknown 01-29 00:00: 00 TOME DOS 2021-0 No 100 (2) 8-10 CAPSULA(S) 00:00: [place] 00 GREGORIA VECES AL TAMIKO. INJECT 2021-0 No [id number] TWICE DAILY 8-10 PER SLIDING 00:00: SCALE. 00 TOME DIXIE 2021-0 No 50 (1) 8-09 TABLETA(S) 00:00: [place] 00 DIXIE VEZ AL TAMIKO. &lt 2021-0 No 100 01-28 00:00: 00 Dose 2021-0 No Unknown 01-28 00:00: 00 APPLY TO 2021-0 No AFFECTED - AREA 30 00:00: MINUTES 00 BEFORE TREATMENT. TOME MEDIA 2021-0 No 25 (1/2) 8-09 TABLETA(S) 00:00: [place] 00 DOS VECES AL TAMIKO. (6AM Y 6PM). TOME DIXIE 2021-0 No 25 (1) 8-09 TABLETA(S) 00:00: [place] 00 DIXIE VEZ AL TAMIKO. Dose 2021-0 No Unknown 809 00:00: 00 TOME DIXIE 2021-0 No 50 (1) 8-09 TABLETA(S) 00:00: [place] 00 DIXIE VEZ AL TAMIKO. INJECT 2021-0 No UNDER THE 8-09 SKIN DAILY 00:00: DIRECTED 00 BY SLIDING SCALE (MAX DOSE OF 30 UNITS). TOME DIXIE 2021-0 No 6 (1) 8-09 TABLETA(S) 00:00: [place] 00 DIARIO. TOME DIXIE No 10 (1) 8-09 TABLETA(S) 00:00: [place] 00 AL ACOSTARSE. TOME DOS No 100 (2) 8-09 CAPSULA(S) 00:00: [place] 00 GREGORIA VECES AL TAMIKO. TOME DIXIE No 50 (1) 8-09 TABLETA(S) 00:00: [place] 00 DIXIE VEZ AL TAMIKO. TOME DIXIE No 25 (1) 8-09 TABLETA(S) 00:00: [place] 00 DIXIE VEZ AL TAMIKO. &lt No 100 01-28 00:00: 00 TOME DIXIE No 50 (1) 8-09 TABLETA(S) 00:00: [place] 00 DIXIE VEZ AL TAMIKO. &lt No 100 01-28 00:00: 00 Dose 2021-0 No Unknown 01-28 00:00: 00 APPLY TO No AFFECTED - AREA 30 00:00: MINUTES 00 BEFORE TREATMENT. TOME MEDIA No 25 (1/2) 8-09 TABLETA(S) 00:00: [place] 00 DOS VECES AL TAMIKO. (6AM Y 6PM). TOME DIXIE No 25 (1) 8-09 TABLETA(S) 00:00: [place] 00 DIXIE VEZ AL TAMIKO. Dose 0 No Unknown 01-28 00:00: 00 TOME DIXIE No 50 (1) 8-09 TABLETA(S) 00:00: [place] 00 DIXIE VEZ AL TAMIKO. INJECT 2021-0 No UNDER THE 8-09 SKIN DAILY 00:00: DIRECTED 00 BY SLIDING SCALE (MAX DOSE OF 30 UNITS). TOME DIXIE No 6 (1) 8-09 TABLETA(S) 00:00: [place] 00 DIARIO. TOME DIXIE No 10 (1) 8-09 TABLETA(S) 00:00: [place] 00 AL ACOSTARSE. TOME DOS No 100 (2) 8-09 CAPSULA(S) 00:00: [place] 00 GREGORIA VECES AL TAMIKO. TOME DIXIE No 50 (1) 8-09 TABLETA(S) 00:00: [place] 00 DIXIE VEZ AL TAMIKO. TOME DIXIE No 25 (1) 8-09 TABLETA(S) 00:00: [place] 00 DIXIE VEZ AL TAMIKO. &lt No 100 8-09 00:00: 00 TOME DIXIE No 75 (1) 8-08 TABLETA(S) 00:00: [place] 00 DIXIE VEZ AL TAMIKO PARA [place]. TOME DIXIE No 75 (1) 8-08 TABLETA(S) 00:00: [place] 00 DIXIE VEZ AL TAMIKO PARA [place]. TOME DOS No 100 (2) 8-05 CAPSULA(S) 00:00: [place] 00 GREGORIA VECES AL TAMIKO. TOME DOS No 100 (2) 8-05 CAPSULA(S) 00:00: [place] 00 GREGORIA VECES AL TAMIKO. TOME DIXIE No 4 (1) 8-04 TABLETA(S) 00:00: [place] 00 DIARIO. TOME DIXIE No 4 (1) 8-04 TABLETA(S) 00:00: [place] 00 DIARIO. TOME DIXIE No (1) 7-26 TABLETA(S) 00:00: [place] 00 DIXIE VEZ AL TAMIKO. TOME DIXIE No 25 (1) 7-26 TABLETA(S) 00:00: [place] 00 DIARIO. TOME DIXIE No 25 (1) 7-26 TABLETA(S) 00:00: [place] 00 DIXIE VEZ AL TAMIKO. TOME DIIXE No (1) 7-26 TABLETA(S) 00:00: [place] 00 DIXIE VEZ AL TAMIKO. TOME DIXIE No 25 (1) 7-26 TABLETA(S) 00:00: [place] 00 DIARIO. TOME DIXIE 2022-0 No 25 (1) 7-26 TABLETA(S) 00:00: [place] 00 DIXIE VEZ AL TAMIKO. TOME DIXIE 0 No 30 (1) 7-11 TABLETA(S) 00:00: [place] 00 DIXIE VEZ AL TAMIKO. TOME DIXIE 0 No 30 (1) 7-11 TABLETA(S) 00:00: [place] 00 DIXIE VEZ AL TAMIKO. benzonatate 0 No 1mg 100 mg 7- capsule 00:00: 00 benzonatate 0 No 1mg 100 mg 7-01 capsule 00:00: 00 TOME DIXIE 0 No (1) 7-01 TABLETA(S) 00:00: [place] 00 DIXIE VEZ AL TAMIKO. TOME No GREGORIA(3) 7- TABLETA(S) 00:00: [place] 00 CON COMIDAS. Dose No Unknown 12-20 00:00: 00 TOME DIXIE 0 No (1) 7- TABLETA(S) 00:00: [place] 00 AL ACOSTARSE. Dose No Unknown 12-20 00:00: 00 INJECT PER 0 No SLIDING 7- SCALE FOR 00:00: DIABETES. 00 MAX DOSE OF 30 UNITS. INJECT PER 0 No SLIDING 7-01 SCALE FOR 00:00: DIABETES. 00 MAX DOSE OF 30 UNITS. benzonatate 0 No 1mg 100 mg 7- capsule 00:00: 00 benzonatate 0 No 1mg 100 mg 7- capsule 00:00: 00 TOME DIXIE 0 No (1) 7- TABLETA(S) 00:00: [place] 00 DIXIE VEZ AL TMAIKO. TOME 0 No GREGORIA(3) 7- TABLETA(S) 00:00: [place] 00 CON COMIDAS. Dose 0 No Unknown 12-20 00:00: 00 TOME DIXIE 0 No (1) 7-01 TABLETA(S) 00:00: [place] 00 AL ACOSTARSE. Dose No Unknown 12-20 00:00: 00 INJECT PER No SLIDING 7-01 SCALE FOR 00:00: DIABETES. 00 MAX DOSE OF 30 UNITS. INJECT PER No SLIDING 7-01 SCALE FOR 00:00: DIABETES. 00 MAX DOSE OF 30 UNITS. benzonatate No 1mg 100 mg - capsule 00:00: 00 benzonatate No 1mg 100 mg - capsule 00:00: 00 TOME DIXIE No (1) - TABLETA(S) 00:00: [place] 00 DIXIE VEZ AL TAMIKO. TOME No GREGORIA(3) 12-20 TABLETA(S) 00:00: [place] 00 CON COMIDAS. Dose No Unknown 12-20 00:00: 00 TOME DIXIE No (1) - TABLETA(S) 00:00: [place] 00 AL ACOSTARSE. Dose No Unknown 12-20 00:00: 00 INJECT PER No SLIDING 7- SCALE FOR 00:00: DIABETES. 00 MAX DOSE OF 30 UNITS. INJECT PER No SLIDING 7- SCALE FOR 00:00: DIABETES. 00 MAX DOSE OF 30 UNITS. TOME DIXIE No (1) 6-24 TABLETA(S) 00:00: [place] 00 DIARIO. TOME DIXIE No (1) 6-24 TABLETA(S) 00:00: [place] 00 DIARIO. TOME DIXIE No (1) 6-24 TABLETA(S) 00:00: [place] 00 DIARIO. APPLY TO No AFFECTED 6-22 AREA 30 00:00: MINUTES 00 BEFORE TREATMENT. APPLY TO No AFFECTED 6-22 AREA 30 00:00: MINUTES 00 BEFORE TREATMENT. APPLY TO No AFFECTED 6-22 AREA 30 00:00: MINUTES 00 BEFORE TREATMENT. TOME DIXIE No (1) 6-21 TABLETA(S) 00:00: [place] 00 DIARIO. TOME DIXIE No (1) 6-21 TABLETA(S) 00:00: [place] 00 DIARIO. TOME DIXIE No (1) 6-21 TABLETA(S) 00:00: [place] 00 DIARIO. Lantus No 10(3 Solostar 6-11 mL) U-100 00:00: Insulin 100 00 unit/mL (3 mL) subcutaneou s pen Humulin R No unit/mL Regular 6-11 U-100 00:00: Insulin 100 00 unit/mL injection solution clopidogrel No 1mg 75 mg 6-11 tablet 00:00: 00 furosemide No 1mg 20 mg 6-11 tablet 00:00: 00 isosorbide No 1mg mononitrate 6-11 ER 30 mg 00:00: tablet,exte 00 nded release 24 hr metoprolol No 5mg tartrate 25 6-11 mg tablet 00:00: 00 atorvastati No 1mg n 40 mg 6-11 tablet 00:00: 00 TOME DIXIE No (1) 6-11 TABLETA(S) 00:00: [place] 00 DIXIE VEZ AL TAMIKO EN LA TARDE. TOME MEDIA No (1/2) 6-11 TABLETA(S) 00:00: [place] 00 DOS VECES AL TAMIKO. (6AM Y 6PM). TOME DIXIE No (1) 6-11 TABLETA(S) 00:00: [place] 00 DIXIE VEZ AL TAMIKO. TOME DIXIE No (1) 6-11 TABLETA(S) 00:00: [place] 00 DIXIE VEZ AL TAMIKO. TOME DIXIE No (1) 6-11 PAQUETE(S) 00:00: P[place] 00 GREGORIA VECES AL TAMIKO CON COMIDAS. TOME DIXIE No (1) 6-11 PAQUETE(S) 00:00: [place] 00 GREGORIA VECES AL TAMIKO CON COMIDAS. TOME DIXIE No (1) 6-11 TABLETA(S) 00:00: [place] 00 DIXIE VEZ AL TAMIKO. TOME DIXIE No (1) 6-11 TABLETA(S) 00:00: [place] 00 DIXIE VEZ AL TAMIKO. TOME DIXIE No (1) 6-11 TABLETA(S) 00:00: [place] 00 DIXIE VEZ AL TAMIKO. Lantus No 10(3 Solostar 6-11 mL) U-100 00:00: Insulin 100 00 unit/mL (3 mL) subcutaneou s pen Humulin R No unit/mL Regular 6-11 U-100 00:00: Insulin 100 00 unit/mL injection solution clopidogrel No 1mg 75 mg 6-11 tablet 00:00: 00 furosemide No 1mg 20 mg 6-11 tablet 00:00: 00 isosorbide No 1mg mononitrate 6-11 ER 30 mg 00:00: tablet,exte 00 nded release 24 hr metoprolol No 5mg tartrate 25 6-11 mg tablet 00:00: 00 atorvastati No 1mg n 40 mg 6-11 tablet 00:00: 00 TOME DIXIE No (1) 6-11 TABLETA(S) 00:00: [place] 00 DIXIE VEZ AL TAMIKO EN LA TARDE. TOME MEDIA No (1/2) 6-11 TABLETA(S) 00:00: [place] 00 DOS VECES AL TAMIKO. (6AM Y 6PM). TOME DIXIE No (1) 6-11 TABLETA(S) 00:00: [place] 00 DIXIE VEZ AL TAMIKO. TOME DIXIE No (1) 6-11 TABLETA(S) 00:00: [place] 00 DIXIE VEZ AL TAMIKO. TOME DIXIE No (1) 6-11 PAQUETE(S) 00:00: [place] 00 GREGORIA VECES AL TAMIKO CON COMIDAS. TOME DIXIE No (1) 6-11 PAQUETE(S) 00:00: [place] 00 GREGORIA VECES AL TAMIKO CON COMIDAS. TOME DIXIE No (1) 6-11 TABLETA(S) 00:00: [place] 00 DIXIE VEZ AL TAMIKO. TOME DIXIE No (1) 6-11 TABLETA(S) 00:00: [place] 00 DIXIE VEZ AL TAMIKO. TOME DIXIE No (1) 6-11 TABLETA(S) 00:00: [place] 00 DIXIE VEZ AL TAMIKO. Lantus No 10(3 Solostar 6-11 mL) U-100 00:00: Insulin 100 00 unit/mL (3 mL) subcutaneou s pen Humulin R No unit/mL Regular 6-11 U-100 00:00: Insulin 100 00 unit/mL injection solution clopidogrel No 1mg 75 mg 6-11 tablet 00:00: 00 furosemide No 1mg 20 mg 6-11 tablet 00:00: 00 isosorbide No 1mg mononitrate 6-11 ER 30 mg 00:00: tablet,exte 00 nded release 24 hr metoprolol No 5mg tartrate 25 6-11 mg tablet 00:00: 00 atorvastati No 1mg n 40 mg 6-11 tablet 00:00: 00 TOME DIXIE No (1) 6-11 TABLETA(S) 00:00: [place] 00 DIXIE VEZ AL TAMIKO EN LA TARDE. TOME MEDIA No (1/2) 6-11 TABLETA(S) 00:00: [place] 00 DOS VECES AL TAMIKO. (6AM Y 6PM). TOME DIXIE No (1) 6-11 TABLETA(S) 00:00: [place] 00 DIXIE VEZ AL TAMIKO. TOME DIXIE No (1) 6-11 TABLETA(S) 00:00: [place] 00 DIXIE VEZ AL TAMIKO. TOME DIXIE No (1) 6-11 PAQUETE(S) 00:00: [place] 00 GREGORIA VECES AL TAMIKO CON COMIDAS. TOME DIXIE No (1) 6-11 PAQUETE(S) 00:00: [place] 00 GREGORIA VECES AL TAMIKO CON COMIDAS. TOME DIXIE 2022-0 No (1) 6-11 TABLETA(S) 00:00: [place] 00 DIXIE VEZ AL TAMIKO. TOME DIXIE 2-0 No (1) 6-11 TABLETA(S) 00:00: [place] 00 DIXIE VEZ AL TAMIKO. TOME DIXIE 2-0 No (1) 6-11 TABLETA(S) 00:00: [place] 00 DIXIE VEZ AL TAMIKO. Dose 2-0 No Unknown 1-06 00:00: 00 Dose 2022-0 No Unknown 1-06 00:00: 00 amlodipine 2022-0 No 1mg 10 mg 1-06 tablet 00:00: 00 Dose 2022-0 No Unknown 1-06 00:00: 00 Dose 2022-0 No Unknown 1-06 00:00: 00 Dose 2-0 No Unknown 1-06 00:00: 00 lisinopril 2022-0 No 1mg 40 mg 1-06 tablet 00:00: 00 Dose 2-0 No Unknown 1-06 00:00: 00 levothyroxi 2022-0 No 1mcg ne 25 mcg 1-06 tablet 00:00: 00 Dose 2022-0 No Unknown 1-06 00:00: 00 Dose 2022-0 No Unknown 1-06 00:00: 00 amlodipine 2-0 No 1mg 10 mg 1-06 tablet 00:00: 00 Dose 2-0 No Unknown 1-06 00:00: 00 Dose 2022-0 No Unknown 1-06 00:00: 00 Dose 2022-0 No Unknown 1-06 00:00: 00 lisinopril 2-0 No 1mg 40 mg 1-06 tablet 00:00: 00 Dose 2022-0 No Unknown 1-06 00:00: 00 levothyroxi 2022-0 No 1mcg ne 25 mcg 1-06 tablet 00:00: 00 Dose 2-0 No Unknown 1-06 00:00: 00 Dose 2022-0 No Unknown 1-06 00:00: 00 amlodipine 2022-0 No 1mg 10 mg 1-06 tablet 00:00: 00 Dose 2022-0 No Unknown 1-06 00:00: 00 Dose 2022-0 No Unknown 1-06 00:00: 00 Dose 2022-0 No Unknown 1-06 00:00: 00 lisinopril 2022-0 No 1mg 40 mg 1-06 tablet 00:00: 00 Dose 2022-0 No Unknown 1-06 00:00: 00 levothyroxi 2-0 No 1mcg ne 25 mcg 1-06 tablet 00:00: 00 amlodipine 1-1 No 1mg 10 mg 0-13 tablet 00:00: 00 carvedilol 2020-1 No 1mg 25 mg 0-13 tablet 00:00: 00 hydralazine 1-1 No 1mg 50 mg 0-13 tablet 00:00: 00 lisinopril 1-1 No 1mg 40 mg 0-13 tablet 00:00: 00 levothyroxi 2020-1 No 1mcg ne 25 mcg 0-13 tablet 00:00: 00 amlodipine 2020-1 No 1mg 10 mg 0-13 tablet 00:00: 00 carvedilol 2020-1 No 1mg 25 mg 0-13 tablet 00:00: 00 hydralazine 2020-1 No 1mg 50 mg 0-13 tablet 00:00: 00 lisinopril 2020-1 No 1mg 40 mg 0-13 tablet 00:00: 00 levothyroxi 2020-1 No 1mcg ne 25 mcg 0-13 tablet 00:00: 00 amlodipine 1-1 No 1mg 10 mg 0-13 tablet 00:00: 00 carvedilol 1-1 No 1mg 25 mg 0-13 tablet 00:00: 00 hydralazine 1-1 No 1mg 50 mg 0-13 tablet 00:00: 00 lisinopril 2020-1 No 1mg 40 mg 0-13 tablet 00:00: 00 levothyroxi 2020-1 No 1mcg ne 25 mcg 0-13 tablet 00:00: 00 Humulin R 1-0 No unit/mL Regular 6-05 U-100 00:00: Insulin 100 00 unit/mL injection solution Lantus 2020-0 No 10(3 Solostar 6-05 mL) U-100 00:00: Insulin 100 00 unit/mL (3 mL) subcutaneou s pen hydralazine 2020-0 No 1mg 50 mg 6-05 tablet 00:00: 00 amlodipine 2020-0 No 1mg 10 mg 6-05 tablet 00:00: 00 lisinopril 2021-0 No 1mg 40 mg 6-05 tablet 00:00: 00 carvedilol 2021-0 No 1mg 25 mg 6-05 tablet 00:00: 00 clopidogrel 2021-0 No 1mg 75 mg 6-05 tablet 00:00: 00 atorvastati 2021-0 No 1mg n 40 mg 6-05 tablet 00:00: 00 levothyroxi 2021-0 No 1mcg ne 25 mcg 6-05 tablet 00:00: 00 Humulin R 2021-0 No unit/mL Regular 6-05 U-100 00:00: Insulin 100 00 unit/mL injection solution Lantus 2021-0 No 10(3 Solostar 6-05 mL) U-100 00:00: Insulin 100 00 unit/mL (3 mL) subcutaneou s pen hydralazine 1-0 No 1mg 50 mg 6-05 tablet 00:00: 00 amlodipine 2021-0 No 1mg 10 mg 6-05 tablet 00:00: 00 lisinopril 2021-0 No 1mg 40 mg 6-05 tablet 00:00: 00 carvedilol 2021-0 No 1mg 25 mg 6-05 tablet 00:00: 00 clopidogrel 2021-0 No 1mg 75 mg 6-05 tablet 00:00: 00 atorvastati 2021-0 No 1mg n 40 mg 6-05 tablet 00:00: 00 levothyroxi 2021-0 No 1mcg ne 25 mcg 6-05 tablet 00:00: 00 Humulin R 2021-0 No unit/mL Regular 6-05 U-100 00:00: Insulin 100 00 unit/mL injection solution Lantus 2021-0 No 10(3 Solostar 6-05 mL) U-100 00:00: Insulin 100 00 unit/mL (3 mL) subcutaneou s pen hydralazine 2021-0 No 1mg 50 mg 6-05 tablet 00:00: 00 amlodipine 2021-0 No 1mg 10 mg 6-05 tablet 00:00: 00 lisinopril 2021-0 No 1mg 40 mg 6-05 tablet 00:00: 00 carvedilol 2021-0 No 1mg 25 mg 6-05 tablet 00:00: 00 clopidogrel 2021-0 No 1mg 75 mg 6-05 tablet 00:00: 00 atorvastati 2021-0 No 1mg n 40 mg 6-05 tablet 00:00: 00 levothyroxi 2021-0 No 1mcg ne 25 mcg 6-05 tablet 00:00: 00 lisinopril 2021-0 No 1mg 40 mg 4-28 tablet 00:00: 00 amlodipine 2021-0 No 1mg 10 mg 4-28 tablet 00:00: 00 lisinopril 2021-0 No 1mg 40 mg 4-28 tablet 00:00: 00 levothyroxi 2021-0 No 1mcg ne 25 mcg 4-28 tablet 00:00: 00 lisinopril 2021-0 No 1mg 40 mg 4-28 tablet 00:00: 00 amlodipine 2021-0 No 1mg 10 mg 4-28 tablet 00:00: 00 lisinopril 2021-0 No 1mg 40 mg 4-28 tablet 00:00: 00 levothyroxi 2021-0 No 1mcg ne 25 mcg 4-28 tablet 00:00: 00 lisinopril 2021-0 No 1mg 40 mg 4-28 tablet 00:00: 00 amlodipine 2021-0 No 1mg 10 mg 4-28 tablet 00:00: 00 lisinopril 2021-0 No 1mg 40 mg 4-28 tablet 00:00: 00 levothyroxi 2021-0 No 1mcg ne 25 mcg 4-28 tablet 00:00: 00 Humulin R 2021-0 No unit/mL Regular 2-03 U-100 00:00: Insulin 100 00 unit/mL injection solution Lantus 2021-0 No 10(3 Solostar 2-03 mL) U-100 00:00: Insulin 100 00 unit/mL (3 mL) subcutaneou s pen lisinopril 2021-0 No 1mg 40 mg 2-03 tablet 00:00: 00 clopidogrel 2021-0 No 1mg 75 mg 2-03 tablet 00:00: 00 atorvastati 2021-0 No 1mg n 40 mg 2-03 tablet 00:00: 00 amlodipine 2021-0 No 1mg 10 mg 2-03 tablet 00:00: 00 carvedilol 2021-0 No 1mg 25 mg 2-03 tablet 00:00: 00 levothyroxi 1-0 No 1mcg ne 25 mcg 2-03 tablet 00:00: 00 Humulin R 2021-0 No unit/mL Regular 2-03 U-100 00:00: Insulin 100 00 unit/mL injection solution Lantus 1-0 No 10(3 Solostar 2-03 mL) U-100 00:00: Insulin 100 00 unit/mL (3 mL) subcutaneou s pen lisinopril 1-0 No 1mg 40 mg 2-03 tablet 00:00: 00 clopidogrel 2021-0 No 1mg 75 mg 2-03 tablet 00:00: 00 atorvastati 1-0 No 1mg n 40 mg 2-03 tablet 00:00: 00 amlodipine 2021-0 No 1mg 10 mg 2-03 tablet 00:00: 00 carvedilol 2021-0 No 1mg 25 mg 2-03 tablet 00:00: 00 levothyroxi 1-0 No 1mcg ne 25 mcg 2-03 tablet 00:00: 00 Humulin R 2021-0 No unit/mL Regular 2-03 U-100 00:00: Insulin 100 00 unit/mL injection solution Lantus 1-0 No 10(3 Solostar 2-03 mL) U-100 00:00: Insulin 100 00 unit/mL (3 mL) subcutaneou s pen lisinopril 1-0 No 1mg 40 mg 2-03 tablet 00:00: 00 clopidogrel 2021-0 No 1mg 75 mg 2-03 tablet 00:00: 00 atorvastati 1-0 No 1mg n 40 mg 2-03 tablet 00:00: 00 amlodipine 2021-0 No 1mg 10 mg 2-03 tablet 00:00: 00 carvedilol 2021-0 No 1mg 25 mg 2-03 tablet 00:00: 00 levothyroxi 1-0 No 1mcg ne 25 mcg 2-03 tablet 00:00: 00 levothyroxi 2019-1 No 1mcg ne 25 mcg 2-21 tablet 00:00: 00 levothyroxi 2019-1 No 1mcg ne 25 mcg 2-21 tablet 00:00: 00 levothyroxi 2019-1 No 1mcg ne 25 mcg 2-21 tablet 00:00: 00 Humulin R 2020-1 No unit/mL Regular 0-28 U-100 00:00: Insulin 100 00 unit/mL injection solution Lantus 2020-1 No 5(3 mL) Solostar 0-28 U-100 00:00: Insulin 100 00 unit/mL (3 mL) subcutaneou s pen Lantus 2020-1 No 10(3 Solostar 0-28 mL) U-100 00:00: Insulin 100 00 unit/mL (3 mL) subcutaneou s pen amlodipine 2019-1 No 1mg 10 mg 0-28 tablet 00:00: 00 carvedilol 2020-1 No 1mg 25 mg 0-28 tablet 00:00: 00 lisinopril 2020-1 No 1mg 20 mg 0-28 tablet 00:00: 00 clopidogrel 2020-1 No 1mg 75 mg 0-28 tablet 00:00: 00 atorvastati 2019-1 No 1mg n 40 mg 0-28 tablet 00:00: 00 lisinopril 2019-1 No 1mg 40 mg 0-28 tablet 00:00: 00 Humulin R 2020-1 No unit/mL Regular 0-28 U-100 00:00: Insulin 100 00 unit/mL injection solution Lantus 2019-1 No 5(3 mL) Solostar 0-28 U-100 00:00: Insulin 100 00 unit/mL (3 mL) subcutaneou s pen Lantus 2019-1 No 10(3 Solostar 0-28 mL) U-100 00:00: Insulin 100 00 unit/mL (3 mL) subcutaneou s pen amlodipine 2019-1 No 1mg 10 mg 0-28 tablet 00:00: 00 carvedilol 2020-1 No 1mg 25 mg 0-28 tablet 00:00: 00 lisinopril 2020-1 No 1mg 20 mg 0-28 tablet 00:00: 00 clopidogrel 2020-1 No 1mg 75 mg 0-28 tablet 00:00: 00 atorvastati 2020-1 No 1mg n 40 mg 0-28 tablet 00:00: 00 lisinopril 2020-1 No 1mg 40 mg 0-28 tablet 00:00: 00 Humulin R 2020-1 No unit/mL Regular 0-28 U-100 00:00: Insulin 100 00 unit/mL injection solution Lantus 2020-1 No 5(3 mL) Solostar 0-28 U-100 00:00: Insulin 100 00 unit/mL (3 mL) subcutaneou s pen Lantus 2020-1 No 10(3 Solostar 0-28 mL) U-100 00:00: Insulin 100 00 unit/mL (3 mL) subcutaneou s pen amlodipine 2020-1 No 1mg 10 mg 0-28 tablet 00:00: 00 carvedilol 2020-1 No 1mg 25 mg 0-28 tablet 00:00: 00 lisinopril 2020-1 No 1mg 20 mg 0-28 tablet 00:00: 00 clopidogrel 2020-1 No 1mg 75 mg 0-28 tablet 00:00: 00 atorvastati 2020-1 No 1mg n 40 mg 0-28 tablet 00:00: 00 lisinopril 2020-1 No 1mg 40 mg 0-28 tablet 00:00: 00 levothyroxi 2020-0 No 1mcg ne 25 mcg 9-28 tablet 00:00: 00 levothyroxi 2020-0 No 1mcg ne 25 mcg 9-28 tablet 00:00: 00 levothyroxi 2020-0 No 1mcg ne 25 mcg 9-28 tablet 00:00: 00 gabapentin 2020-0 No 1mg 100 mg 7-20 capsule 00:00: 00 gabapentin 2020-0 No 1mg 100 mg 7-20 capsule 00:00: 00 gabapentin 2020-0 No 1mg 100 mg 7-20 capsule 00:00: 00 Humulin R 2020-0 No 12unit/ Regular 5-30 mL U-100 00:00: Insulin 100 00 unit/mL injection solution Humulin R 2020-0 No unit/mL Regular 5-30 U-100 00:00: Insulin 100 00 unit/mL injection solution Lantus 2020-0 No 20(3 Solostar 5-30 mL) U-100 00:00: Insulin 100 00 unit/mL (3 mL) subcutaneou s pen Lantus 2020-0 No 5(3 mL) Solostar 5-30 U-100 00:00: Insulin 100 00 unit/mL (3 mL) subcutaneou s pen amlodipine 2020-0 No 1mg 10 mg 5-30 tablet 00:00: 00 carvedilol 2020-0 No 1mg 25 mg 5-30 tablet 00:00: 00 lisinopril 2020-0 No 1mg 20 mg 5-30 tablet 00:00: 00 clopidogrel 2020-0 No 1mg 75 mg 5-30 tablet 00:00: 00 atorvastati 2020-0 No 1mg n 40 mg 5-30 tablet 00:00: 00 Humulin R 2020-0 No 12unit/ Regular 5-30 mL U-100 00:00: Insulin 100 00 unit/mL injection solution Humulin R 2020-0 No unit/mL Regular 5-30 U-100 00:00: Insulin 100 00 unit/mL injection solution Lantus 2020-0 No 20(3 Solostar 5-30 mL) U-100 00:00: Insulin 100 00 unit/mL (3 mL) subcutaneou s pen Lantus 2020-0 No 5(3 mL) Solostar 5-30 U-100 00:00: Insulin 100 00 unit/mL (3 mL) subcutaneou s pen amlodipine 2020-0 No 1mg 10 mg 5-30 tablet 00:00: 00 carvedilol 2020-0 No 1mg 25 mg 5-30 tablet 00:00: 00 lisinopril 2020-0 No 1mg 20 mg 5-30 tablet 00:00: 00 clopidogrel 2020-0 No 1mg 75 mg 5-30 tablet 00:00: 00 atorvastati 2020-0 No 1mg n 40 mg 5-30 tablet 00:00: 00 Humulin R 2020-0 No 12unit/ Regular 5-30 mL U-100 00:00: Insulin 100 00 unit/mL injection solution Humulin R 2020-0 No unit/mL Regular 5-30 U-100 00:00: Insulin 100 00 unit/mL injection solution Lantus 2020-0 No 20(3 Solostar 5-30 mL) U-100 00:00: Insulin 100 00 unit/mL (3 mL) subcutaneou s pen Lantus 2020-0 No 5(3 mL) Solostar 5-30 U-100 00:00: Insulin 100 00 unit/mL (3 mL) subcutaneou s pen amlodipine 2020-0 No 1mg 10 mg 5-30 tablet 00:00: 00 carvedilol 2020-0 No 1mg 25 mg 5-30 tablet 00:00: 00 lisinopril 2020-0 No 1mg 20 mg 5-30 tablet 00:00: 00 clopidogrel 2020-0 No 1mg 75 mg 5-30 tablet 00:00: 00 atorvastati 2020-0 No 1mg n 40 mg 5-30 tablet 00:00: 00 amLODIPine 2020-0 Yes 10 mg = 1 Me moria 10 mg oral 5-28 tab, PO, l tablet 20:33: Daily, 0 [place] 00 Refill(s) Aspirin 81 2020-0 Yes 81 [...] tab, PO, l tablet 20:33: BID, 0 [place] 00 Refill(s) clopidogrel 2020-0 Yes 75 mg = 1 M emoria 75 mg oral 5-28 tab, PO, l tablet 20:33: Daily, 0 [place] 00 Refill(s) cyclobenzap 2020-0 Yes 10 mg = 1 M emoria rine 10 mg 5-28 tab, PO, l oral tablet 20:33: TID, 0 Herm nilay Refill(s) Fluticasone 2020-0 Yes NASAL, [place] titus propionate 5-28 Daily, 0 l 0.05 20:33: Refill(s) [place] MG/ACTUAT 00 Metered Dose Nasal [place] gabapentin 2020-0 Yes 100 mg = 1 [...] titus 5-28 SUB-Q, l 20:33: ONCE, 0 [place] 00 Refill(s) Levothyroxi 2020-0 Yes 25 Memori a ne Sodium 5-28 microgram l 0.025 MG 20:33: = 1 tab, Jossie nn Oral Tablet 00 PO, Daily, [Synthroid] 0 Refill(s) amLODIPine 2020-0 Yes 10 mg = 1 Me moria 10 mg oral 5-28 tab, PO, l tablet 20:33: Daily, 0 [place] 00 Refill(s) Aspirin 81 2020-0 Yes 81 mg = 1 Me moria MG Enteric 5-28 tab, PO, l Coated 20:33: Daily, # [place] Tablet 00 90 tab, 3 Refill(s) atorvastati 2020-0 Yes 40 mg = 1 M emoria n 40 mg 5-28 tab, PO, l oral tablet 20:33: Daily, 0 [place] 00 Refill(s) carvedilol 2020-0 Yes 25 mg = 1 Me moria 25 mg oral 5-28 tab, PO, l tablet 20:33: BID, 0 [place] 00 Refill(s) clopidogrel 2020-0 Yes 75 mg = 1 M emoria 75 mg oral 5-28 tab, PO, l tablet 20:33: Daily, 0 [place] 00 Refill(s) cyclobenzap 2020-0 Yes 10 mg = 1 M emoria rine 10 mg 5-28 tab, PO, l oral tablet 20:33: TID, 0 Herm nilay Refill(s) Fluticasone 2020-0 Yes NASAL, [place] titus propionate 5-28 Daily, 0 l 0.05 20:33: Refill(s) [place] MG/ACTUAT 00 Metered Dose Nasal [place] gabapentin 2020-0 Yes 100 mg = 1 [...] titus 5-28 SUB-Q, l 20:33: ONCE, 0 [place] 00 Refill(s) Levothyroxi 2020-0 Yes 25 Memori a ne Sodium 5-28 microgram l 0.025 MG 20:33: = 1 tab, Jossie nn Oral Tablet 00 PO, Daily, [Synthroid] 0 Refill(s) acetaminoph 2020-0 No 1mg en ER 650 3-12 mg 00:00: tablet,exte 00 nded release acetaminoph 2020-0 No 1mg en ER 650 3-12 mg 00:00: tablet,exte 00 nded release acetaminoph 2020-0 No 1mg en ER 650 3-12 mg 00:00: tablet,exte 00 nded release Humulin R 2020-0 No 12unit/ Regular 2-04 mL U-100 00:00: Insulin 100 00 unit/mL injection solution amlodipine 2020-0 No 1mg 10 mg 2-04 tablet 00:00: 00 carvedilol 2020-0 No 1mg 25 mg 2-04 tablet 00:00: 00 lisinopril 2020-0 No 1mg 20 mg 2-04 tablet 00:00: 00 clopidogrel 2020-0 No 1mg 75 mg 2-04 tablet 00:00: 00 atorvastati 2020-0 No 1mg n 40 mg 2-04 tablet 00:00: 00 levothyroxi 2020-0 No 1mcg ne 25 mcg 2-04 tablet 00:00: 00 Humulin R 2020-0 No 12unit/ Regular 2-04 mL U-100 00:00: Insulin 100 00 unit/mL injection solution amlodipine 2020-0 No 1mg 10 mg 2-04 tablet 00:00: 00 carvedilol 2020-0 No 1mg 25 mg 2-04 tablet 00:00: 00 lisinopril 2020-0 No 1mg 20 mg 2-04 tablet 00:00: 00 clopidogrel 2020-0 No 1mg 75 mg 2-04 tablet 00:00: 00 atorvastati 2020-0 No 1mg n 40 mg 2-04 tablet 00:00: 00 levothyroxi 2020-0 No 1mcg ne 25 mcg 2-04 tablet 00:00: 00 Humulin R 2020-0 No 12unit/ Regular 2-04 mL U-100 00:00: Insulin 100 00 unit/mL injection solution amlodipine 2020-0 No 1mg 10 mg 2-04 tablet 00:00: 00 carvedilol 2020-0 No 1mg 25 mg 2-04 tablet 00:00: 00 lisinopril 2020-0 No 1mg 20 mg 2-04 tablet 00:00: 00 clopidogrel No 1mg 75 mg 2-04 tablet 00:00: 00 atorvastati No 1mg n 40 mg 2-04 tablet 00:00: 00 levothyroxi No 1mcg ne 25 mcg 2-04 tablet 00:00: 00 levothyroxi 2018-06 Yes 25ug Take 25 Uni vers ne 25 mcg 2-13 mcg by ity of tablet 10:28: mouth [place] [id number] every Medical morning. Branch clopidogrel 2018-06 Yes 75mg Take 75 mg [facility] 75 mg 2-13 by mouth ity of tablet 10:28: daily. [place] [address] Medical Branch atorvastati 2018-06 Yes 40mg Take 40 mg Univers n 40 mg 2-13 by mouth ity of tablet 10:28: at [place] [address] bedtime. Medical Branch gabapentin 2018-06 Yes 100mg Take 100 Un jen 100 mg 2-13 mg by ity of capsule 10:28: mouth 3 [place] [address] (three) Medical times Branch daily. glimepiride 2018-06 Yes 1mg Take 1 mg U nivers 1 mg tablet 2-13 by mouth ity of 10:28: daily with [place] [address] breakfast. Medical Branch BABY 2018-06 Yes Take by [facility] ASPIRIN 2-13 mouth. ity of ORAL 10:28: [place] [address] Medical Branch furosemide 2018-06 No 1mg 20 mg 1-26 tablet 00:00: 00 furosemide 2018-06 No 1mg 20 mg 1-26 tablet 00:00: 00 furosemide 2018-06 No 1mg 20 mg 1-26 tablet 00:00: 00 Humulin R 2018-06 No 12unit/ Regular 1-06 mL U-100 00:00: Insulin 100 00 unit/mL injection solution Lantus 2018-06 No 20(3 Solostar 1-06 mL) U-100 00:00: Insulin 100 00 unit/mL (3 mL) subcutaneou s pen amlodipine 2018-06 No 1mg 10 mg 1-06 tablet 00:00: 00 carvedilol 2018-06 No 1mg 25 mg 1-06 tablet 00:00: 00 lisinopril 2018-06 No 1mg 20 mg 1-06 tablet 00:00: 00 clopidogrel 2018-06 No 1mg 75 mg 1-06 tablet 00:00: 00 atorvastati 2018-06 No 1mg n 40 mg 1-06 tablet 00:00: 00 levothyroxi 2018-1 No 1mcg ne 25 mcg 1-06 tablet 00:00: 00 Humulin R 2019-1 No 12unit/ Regular 1-06 mL U-100 00:00: Insulin 100 00 unit/mL injection solution Lantus 2018-06 No 20(3 Solostar 1-06 mL) U-100 00:00: Insulin 100 00 unit/mL (3 mL) subcutaneou s pen amlodipine 2018-1 No 1mg 10 mg 1-06 tablet 00:00: 00 carvedilol 2018-1 No 1mg 25 mg 1-06 tablet 00:00: 00 lisinopril 2018-1 No 1mg 20 mg 1-06 tablet 00:00: 00 clopidogrel 2018-1 No 1mg 75 mg 1-06 tablet 00:00: 00 atorvastati 2018-1 No 1mg n 40 mg 1-06 tablet 00:00: 00 levothyroxi 2018-1 No 1mcg ne 25 mcg 1-06 tablet 00:00: 00 Humulin R 2018-1 No 12unit/ Regular 1-06 mL U-100 00:00: Insulin 100 00 unit/mL injection solution Lantus 2018-06 No 20(3 Solostar 1-06 mL) U-100 00:00: Insulin 100 00 unit/mL (3 mL) subcutaneou s pen amlodipine 2018-1 No 1mg 10 mg 1-06 tablet 00:00: 00 carvedilol 2018-1 No 1mg 25 mg 1-06 tablet 00:00: 00 lisinopril 2018-1 No 1mg 20 mg 1-06 tablet 00:00: 00 clopidogrel 2018-1 No 1mg 75 mg 1-06 tablet 00:00: 00 atorvastati 2018-1 No 1mg n 40 mg 1-06 tablet 00:00: 00 levothyroxi 2018-1 No 1mcg ne 25 mcg 1-06 tablet 00:00: 00 furosemide 2019-0 No 1mg 20 mg 9-17 tablet 00:00: 00 furosemide 2019-0 No 1mg 20 mg 9-17 tablet 00:00: 00 furosemide 2019-0 No 1mg 20 mg 9-17 tablet 00:00: 00 carvedilol 2018-0 No 1mg 25 mg 7-10 tablet 00:00: 00 lisinopril 2019-0 No 1mg 20 mg 7-10 tablet 00:00: 00 amlodipine 2019-0 No 1mg 10 mg 7-10 tablet 00:00: 00 carvedilol 2019-0 No 1mg 25 mg 7-10 tablet 00:00: 00 lisinopril 2019-0 No 1mg 20 mg 7-10 tablet 00:00: 00 carvedilol 2019-0 No 1mg 25 mg 7-10 tablet 00:00: 00 amlodipine 2019-0 No 1mg 10 mg 7-10 tablet 00:00: 00 lisinopril 2019-0 No 1mg 20 mg 7-10 tablet 00:00: 00 amlodipine 2019-0 No 1mg 10 mg 7-10 tablet 00:00: 00 carvedilol 2019-0 No 1mg 6.25 mg 7-03 tablet 00:00: 00 glimepiride 2019-0 No 1mg 1 mg tablet 7-03 00:00: 00 hydroxyzine 2019-0 No 1mg HCl 25 mg 7-03 tablet 00:00: 00 levothyroxi 2019-0 No 1mcg ne 25 mcg 7-03 tablet 00:00: 00 gabapentin 2019-0 No 1mg 100 mg 7-03 capsule 00:00: 00 Humulin R 2019-0 No 12unit/ Regular 7-03 mL U-100 00:00: Insulin 100 00 unit/mL injection solution furosemide 2019-0 No 1mg 20 mg 7-03 tablet 00:00: 00 cyclobenzap 2019-0 No 1mg rine 10 mg 7-03 tablet 00:00: 00 carvedilol 2019-0 No 1mg 6.25 mg 7-03 tablet 00:00: 00 glimepiride 2019-0 No 1mg 1 mg tablet 7-03 00:00: 00 hydroxyzine 2019-0 No 1mg HCl 25 mg 7-03 tablet 00:00: 00 levothyroxi 2019-0 No 1mcg ne 25 mcg 7-03 tablet 00:00: 00 gabapentin 2019-0 No 1mg 100 mg 7-03 capsule 00:00: 00 Humulin R 2019-0 No 12unit/ Regular 7-03 mL U-100 00:00: Insulin 100 00 unit/mL injection solution furosemide 2019-0 No 1mg 20 mg 7-03 tablet 00:00: 00 cyclobenzap 2019-0 No 1mg rine 10 mg 7-03 tablet 00:00: 00 carvedilol 2019-0 No 1mg 6.25 mg 7-03 tablet 00:00: 00 glimepiride 2019-0 No 1mg 1 mg tablet 12-22 00:00: 00 hydroxyzine 2019-0 No 1mg HCl 25 mg 7-03 tablet 00:00: 00 levothyroxi 2019-0 No 1mcg ne 25 mcg 7-03 tablet 00:00: 00 gabapentin 2019-0 No 1mg 100 mg 7-03 capsule 00:00: 00 Humulin R 2019-0 No 12unit/ Regular 7-03 mL U-100 00:00: Insulin 100 00 unit/mL injection solution furosemide 2019-0 No 1mg 20 mg 7-03 tablet 00:00: 00 cyclobenzap 2019-0 No 1mg rine 10 mg 7-03 tablet 00:00: 00 furosemide 2019-0 No 1mg 20 mg 5-29 tablet 00:00: 00 furosemide 2019-0 No 1mg 20 mg 5-29 tablet 00:00: 00 furosemide 2019-0 No 1mg 20 mg 5-29 tablet 00:00: 00 furosemide 2019-0 No 1mg 20 mg 4-23 tablet 00:00: 00 furosemide 2019-0 No 1mg 20 mg 4-23 tablet 00:00: 00 furosemide 2019-0 No 1mg 20 mg 4-23 tablet 00:00: 00 carvedilol 2019-0 No 1mg 6.25 mg 3-20 tablet 00:00: 00 isosorbide 2019-0 No 1mg dinitrate 3-20 30 mg 00:00: tablet 00 furosemide 2019-0 No 1mg 20 mg 3-20 tablet 00:00: 00 cyclobenzap 2019-0 No 1mg rine 10 mg 3-20 tablet 00:00: 00 levothyroxi 2019-0 No 1mcg ne 25 mcg 3-20 tablet 00:00: 00 gabapentin 2019-0 No 1mg 100 mg 3-20 capsule 00:00: 00 carvedilol 2019-0 No 1mg 6.25 mg 3-20 tablet 00:00: 00 isosorbide 2019-0 No 1mg dinitrate 3-20 30 mg 00:00: tablet 00 furosemide 2019-0 No 1mg 20 mg 3-20 tablet 00:00: 00 cyclobenzap 2019-0 No 1mg rine 10 mg 3-20 tablet 00:00: 00 levothyroxi 2019-0 No 1mcg ne 25 mcg 3-20 tablet 00:00: 00 gabapentin 2019-0 No 1mg 100 mg 3-20 capsule 00:00: 00 carvedilol 2019-0 No 1mg 6.25 mg 3-20 tablet 00:00: 00 isosorbide 2019-0 No 1mg dinitrate 3-20 30 mg 00:00: tablet 00 furosemide 2019-0 No 1mg 20 mg 3-20 tablet 00:00: 00 cyclobenzap 2019-0 No 1mg rine 10 mg 3-20 tablet 00:00: 00 levothyroxi 2019-0 No 1mcg ne 25 mcg 3-20 tablet 00:00: 00 gabapentin 2019-0 No 1mg 100 mg 3-20 capsule 00:00: 00 Humulin R 2019-0 No 12unit/ Regular 3-04 mL U-100 00:00: Insulin 100 00 unit/mL injection solution Humulin R 2019-0 No 12unit/ Regular 3-04 mL U-100 00:00: Insulin 100 00 unit/mL injection solution Humulin R 2019-0 No 12unit/ Regular 3-04 mL U-100 00:00: Insulin 100 00 unit/mL injection solution carvedilol 2019-0 No 1mg 6.25 mg 1-15 tablet 00:00: 00 hydroxyzine 2019-0 No 1mg HCl 25 mg 1-15 tablet 00:00: 00 carvedilol 2019-0 No 1mg 6.25 mg 1-15 tablet 00:00: 00 hydroxyzine 2019-0 No 1mg HCl 25 mg 1-15 tablet 00:00: 00 carvedilol 2019-0 No 1mg 6.25 mg 1-15 tablet 00:00: 00 hydroxyzine 2019-0 No 1mg HCl 25 mg 1-15 tablet 00:00: 00 Lantus 2019-0 No 10unit/ U-100 1-08 mL Insulin 100 00:00: unit/mL 00 subcutaneou s solution carvedilol 2019-0 No 1mg 25 mg 1-08 tablet 00:00: 00 Lantus 2019-0 No 10unit/ U-100 1-08 mL Insulin 100 00:00: unit/mL 00 subcutaneou s solution carvedilol 2019-0 No 1mg 25 mg 1-08 tablet 00:00: 00 Lantus 2019-0 No 10unit/ U-100 1-08 mL Insulin 100 00:00: unit/mL 00 subcutaneou s solution carvedilol 0 No 1mg 25 mg 1-08 tablet 00:00: 00 levothyroxi 0 No 1mcg ne 25 mcg 1-03 tablet 00:00: 00 levothyroxi 0 No 1mcg ne 25 mcg 1-03 tablet 00:00: 00 levothyroxi 0 No 1mcg ne 25 mcg 1-03 tablet 00:00: 00 Lantus 2018 No 10unit/ U-100 2-13 mL Insulin 100 00:00: unit/mL 00 subcutaneou s solution Novolin R 2017-06 No 12unit/ Regular 2-13 mL U-100 00:00: Insulin 100 00 unit/mL injection solution Lantus 2017-06 No 10unit/ U-100 2-13 mL Insulin 100 00:00: unit/mL 00 subcutaneou s solution Novolin R 2017-06 No 12unit/ Regular 2-13 mL U-100 00:00: Insulin 100 00 unit/mL injection solution Lantus 2017-06 No 10unit/ U-100 2-13 mL Insulin 100 00:00: unit/mL 00 subcutaneou s solution Novolin R 2017-06 No 12unit/ Regular 2-13 mL U-100 00:00: Insulin 100 00 unit/mL injection solution hydralazine 2017-06 No 1mg 25 mg 2-12 tablet 00:00: 00 lisinopril 2017-06 No 1mg 10 mg 2-12 tablet 00:00: 00 cyclobenzap 2017- No 1mg rine 10 mg 2-12 tablet 00:00: 00 furosemide 2017- No 1mg 20 mg 2-12 tablet 00:00: 00 isosorbide 2017- No 1mg dinitrate 2-12 30 mg 00:00: tablet 00 levothyroxi 2017-06 No 1mcg ne 25 mcg 2-12 tablet 00:00: 00 hydralazine 2017- No 1mg 25 mg 2-12 tablet 00:00: 00 lisinopril 2017- No 1mg 10 mg 2-12 tablet 00:00: 00 cyclobenzap 2017- No 1mg rine 10 mg 2-12 tablet 00:00: 00 furosemide 2017- No 1mg 20 mg 2-12 tablet 00:00: 00 isosorbide 2017- No 1mg dinitrate 2-12 30 mg 00:00: tablet 00 levothyroxi 2017- No 1mcg ne 25 mcg 2-12 tablet 00:00: 00 hydralazine 2017- No 1mg 25 mg 2-12 tablet 00:00: 00 lisinopril 2017- No 1mg 10 mg 2-12 tablet 00:00: 00 cyclobenzap 2017- No 1mg rine 10 mg 2-12 tablet 00:00: 00 furosemide 2017- No 1mg 20 mg 2-12 tablet 00:00: 00 isosorbide 2017- No 1mg dinitrate 2-12 30 mg 00:00: tablet 00 levothyroxi 2017-06 No 1mcg ne 25 mcg 2-12 tablet 00:00: 00 amlodipine 2017- No 1mg 10 mg 2-11 tablet 00:00: 00 carvedilol 2017- No 1mg 25 mg 2-11 tablet 00:00: 00 amlodipine 2017- No 1mg 10 mg 2-11 tablet 00:00: 00 carvedilol 2017- No 1mg 25 mg 2-11 tablet 00:00: 00 amlodipine 2017- No 1mg 10 mg 2-11 tablet 00:00: 00 carvedilol 2017- No 1mg 25 mg 2-11 tablet 00:00: 00 gabapentin 2017-1 No 1mg 100 mg 2-06 capsule 00:00: 00 gabapentin 2017- No 1mg 100 mg 2-06 capsule 00:00: 00 gabapentin 2017- No 1mg 100 mg 2-06 capsule 00:00: 00 amlodipine 2017- No 1mg 10 mg 1-21 tablet 00:00: 00 amlodipine 2017- No 1mg 10 mg 1-21 tablet 00:00: 00 amlodipine 2017- No 1mg 10 mg 1-21 tablet 00:00: 00 Novolin R 2018- No unit/mL Regular 1-16 U-100 00:00: Insulin 100 00 unit/mL injection solution Novolin R 2017- No 12unit/ Regular 1-16 mL U-100 00:00: Insulin 100 00 unit/mL injection solution Novolin R 2017-1 No unit/mL Regular 1-16 U-100 00:00: Insulin 100 00 unit/mL injection solution Novolin R 2018-1 No 12unit/ Regular 1-16 mL U-100 00:00: Insulin 100 00 unit/mL injection solution Novolin R 2017-1 No unit/mL Regular 1-16 U-100 00:00: Insulin 100 00 unit/mL injection solution Novolin R 2017-1 No 12unit/ Regular 1-16 mL U-100 00:00: Insulin 100 00 unit/mL injection solution hydralazine 2017- No 1mg 25 mg 0-31 tablet 00:00: 00 hydralazine 2017-1 No 1mg 25 mg 0-31 tablet 00:00: 00 hydralazine 2017-1 No 1mg 25 mg 0-31 tablet 00:00: 00 hydralazine 2017-1 No 1mg 10 mg 0-04 tablet 00:00: 00 hydralazine 2017- No 1mg 10 mg 0-04 tablet 00:00: 00 hydralazine 2017-1 No 1mg 10 mg 0-04 tablet 00:00: 00 fluticasone 2018-0 No 2mcg/ac 50 9-26 tuation mcg/actuati 00:00: on nasal 00 spray,suspe nsion fluticasone 2018-0 No 2mcg/ac 50 9-26 tuation mcg/actuati 00:00: on nasal 00 spray,suspe nsion fluticasone 2018-0 No 2mcg/ac 50 9-26 tuation mcg/actuati 00:00: on nasal 00 spray,suspe nsion Novolin R 2018-0 No 12unit/ Regular 9-04 mL U-100 00:00: Insulin 100 00 unit/mL injection solution Novolin R 2018-0 No 12unit/ Regular 9-04 mL U-100 00:00: Insulin 100 00 unit/mL injection solution Novolin R 2018-0 No 12unit/ Regular 9-04 mL U-100 00:00: Insulin 100 00 unit/mL injection solution amlodipine 2017-0 No 1mg 10 mg 8-13 tablet 00:00: 00 amlodipine 2017-0 No 1mg 10 mg 8-13 tablet 00:00: 00 amlodipine 2018-0 No 1mg 10 mg 8-13 tablet 00:00: 00 amlodipine 2018-0 No 1mg 5 mg tablet 01-27 00:00: 00 amlodipine 2018-0 No 1mg 5 mg tablet 01-27 00:00: 00 amlodipine 2018-0 No 1mg 5 mg tablet 01-27 00:00: 00 Novolin R 2018-0 No unit/mL Regular 8-06 U-100 00:00: Insulin 100 00 unit/mL injection solution Novolin R 2018-0 No 8unit/m Regular 8-06 L U-100 00:00: Insulin 100 00 unit/mL injection solution Novolin R 2018-0 No unit/mL Regular 8-06 U-100 00:00: Insulin 100 00 unit/mL injection solution Novolin R 2018-0 No 8unit/m Regular 8-06 L U-100 00:00: Insulin 100 00 unit/mL injection solution Novolin R 2018-0 No unit/mL Regular 8- U-100 00:00: Insulin 100 00 unit/mL injection solution Novolin R 2018-0 No 8unit/m Regular 8-06 L U-100 00:00: Insulin 100 00 unit/mL injection solution aspirin 81 2018-0 No 1mg mg 7-27 tablet,igor 00:00: yed release 00 furosemide 2018-0 No 1mg 20 mg 7-27 tablet 00:00: 00 isosorbide 2018-0 No 1mg dinitrate 7-27 30 mg 00:00: tablet 00 aspirin 81 2018-0 No 1mg mg 7-27 tablet,igor 00:00: yed release 00 furosemide 2018-0 No 1mg 20 mg 7-27 tablet 00:00: 00 isosorbide 2018-0 No 1mg dinitrate 7-27 30 mg 00:00: tablet 00 aspirin 81 2018-0 No 1mg mg 7-27 tablet,igor 00:00: yed release 00 furosemide 2018-0 No 1mg 20 mg 7-27 tablet 00:00: 00 isosorbide 2018-0 No 1mg dinitrate 7-27 30 mg 00:00: tablet 00 Vitamin D2 2018-0 No 1unit 50,000 unit 7-26 capsule 00:00: 00 Vitamin D2 2018-0 No 1unit 50,000 unit 7-26 capsule 00:00: 00 Vitamin D2 2018-0 No 1unit 50,000 unit 7-26 capsule 00:00: 00 Humulin N 2018-0 No 1unit/m NPH U-100 7-23 L Insulin 00:00: (isophane 00 susp) 100 unit/mL subcutaneou s Humulin N 2018-0 No 1unit/m NPH U-100 7-23 L Insulin 00:00: (isophane 00 susp) 100 unit/mL subcutaneou s Lantus 2018-0 No 1unit/m U-100 7-23 L Insulin 100 00:00: unit/mL 00 subcutaneou s solution Lantus 2018-0 No 10unit/ U-100 7-23 mL Insulin 100 00:00: unit/mL 00 subcutaneou s solution Lantus 2018-0 No 5unit/m U-100 7-23 L Insulin 100 00:00: unit/mL 00 subcutaneou s solution cyclobenzap 2018-0 No 1mg rine 10 mg 7-23 tablet 00:00: 00 metformin 2018-0 No 1mg ER 500 mg 7-23 tablet,exte 00:00: nded 00 release 24 hr carvedilol 2018-0 No 5mg 25 mg 7-23 tablet 00:00: 00 carvedilol 2018-0 No 1mg 25 mg 7-23 tablet 00:00: 00 Synthroid 2018-0 No 1mcg 25 mcg 7-23 tablet 00:00: 00 amlodipine 2018-0 No 1mg 10 7-23 mg-benazepr 00:00: [place] 20 mg 00 capsule gabapentin 2018-0 No 1mg 100 mg 7-23 capsule 00:00: 00 Humulin N 2018-0 No 1unit/m NPH U-100 7-23 L Insulin 00:00: (isophane 00 susp) 100 unit/mL subcutaneou s Humulin N 2018-0 No 1unit/m NPH U-100 7-23 L Insulin 00:00: (isophane 00 susp) 100 unit/mL subcutaneou s Lantus 2018-0 No 1unit/m U-100 7-23 L Insulin 100 00:00: unit/mL 00 subcutaneou s solution Lantus 2018-0 No 10unit/ U-100 7-23 mL Insulin 100 00:00: unit/mL 00 subcutaneou s solution Lantus 2018-0 No 5unit/m U-100 7-23 L Insulin 100 00:00: unit/mL 00 subcutaneou s solution cyclobenzap 2018-0 No 1mg rine 10 mg 7-23 tablet 00:00: 00 metformin 2018-0 No 1mg ER 500 mg 7-23 tablet,exte 00:00: nded 00 release 24 hr carvedilol 2018-0 No 5mg 25 mg 7-23 tablet 00:00: 00 carvedilol 2018-0 No 1mg 25 mg 7-23 tablet 00:00: 00 Synthroid 2018-0 No 1mcg 25 mcg 7-23 tablet 00:00: 00 amlodipine 2018-0 No 1mg 10 7-23 mg-benazepr 00:00: [place] 20 mg 00 capsule gabapentin 2018-0 No 1mg 100 mg 7-23 capsule 00:00: 00 Humulin N 2018-0 No 1unit/m NPH U-100 7-23 L Insulin 00:00: (isophane 00 susp) 100 unit/mL subcutaneou s Humulin N 2018-0 No 1unit/m NPH U-100 7-23 L Insulin 00:00: (isophane 00 susp) 100 unit/mL subcutaneou s Lantus 2018-0 No 1unit/m U-100 7-23 L Insulin 100 00:00: unit/mL 00 subcutaneou s solution Lantus 2018-0 No 10unit/ U-100 7-23 mL Insulin 100 00:00: unit/mL 00 subcutaneou s solution Lantus 2018-0 No 5unit/m U-100 7-23 L Insulin 100 00:00: unit/mL 00 subcutaneou s solution cyclobenzap 2018-0 No 1mg rine 10 mg 7-23 tablet 00:00: 00 metformin 2018-0 No 1mg ER 500 mg 7-23 tablet,exte 00:00: nded 00 release 24 hr carvedilol 2018-0 No 5mg 25 mg 7-23 tablet 00:00: 00 carvedilol 2018-0 No 1mg 25 mg 7-23 tablet 00:00: 00 Synthroid 2018-0 No 1mcg 25 mcg 7-23 tablet 00:00: 00 amlodipine 2018-0 No 1mg 10 7-23 mg-benazepr 00:00: [place] 20 mg 00 capsule gabapentin 2018-0 No 1mg 100 mg 7-23 capsule 00:00: 00 cyclobenzap 2018-0 No 1mg rine 10 mg 7-19 tablet 00:00: 00 metformin 2018-0 No 1mg ER 500 mg 7-19 tablet,exte 00:00: nded 00 release 24 hr carvedilol 2018-0 No 1mg 25 mg 7-19 tablet 00:00: 00 Synthroid 2018-0 No 1mcg 25 mcg 7-19 tablet 00:00: 00 Synthroid 2018-0 No 1mcg 25 mcg 7-19 tablet 00:00: 00 amlodipine 2018-0 No 1mg 5 7-19 mg-benazepr 00:00: il 20 mg 00 capsule amlodipine 2018-0 No 1mg 5 7-19 mg-benazepr 00:00: [place] 20 mg 00 capsule gabapentin 2018-0 No 1mg 100 mg 7-19 capsule 00:00: 00 gabapentin 2018-0 No 1mg 100 mg 7-19 capsule 00:00: 00 Humulin N 2018-0 No 1unit/m NPH U-100 7-19 L Insulin 00:00: (isophane 00 susp) 100 unit/mL subcutaneou s Lantus 2018-0 No 1unit/m U-100 7-19 L Insulin 100 00:00: unit/mL 00 subcutaneou s solution carvedilol 2018-0 No 1mg 25 mg 7-19 tablet 00:00: 00 cyclobenzap 2018-0 No 1mg rine 10 mg 7-19 tablet 00:00: 00 cyclobenzap 2018-0 No 1mg rine 10 mg 7-19 tablet 00:00: 00 metformin 2018-0 No 1mg ER 500 mg 7-19 tablet,exte 00:00: nded 00 release 24 hr carvedilol 2018-0 No 1mg 25 mg 7-19 tablet 00:00: 00 Synthroid 2018-0 No 1mcg 25 mcg 7-19 tablet 00:00: 00 Synthroid 2018-0 No 1mcg 25 mcg 7-19 tablet 00:00: 00 amlodipine 2018-0 No 1mg 5 7-19 mg-benazepr 00:00: il 20 mg 00 capsule amlodipine 2018-0 No 1mg 5 7-19 mg-benazepr 00:00: [place] 20 mg 00 capsule gabapentin 2018-0 No 1mg 100 mg 7-19 capsule 00:00: 00 gabapentin 2018-0 No 1mg 100 mg 7-19 capsule 00:00: 00 Humulin N 2018-0 No 1unit/m NPH U-100 7-19 L Insulin 00:00: (isophane 00 susp) 100 unit/mL subcutaneou s Lantus 2018-0 No 1unit/m U-100 7-19 L Insulin 100 00:00: unit/mL 00 subcutaneou s solution Humulin N 2018-0 No 1unit/m NPH U-100 7-19 L Insulin 00:00: (isophane 00 susp) 100 unit/mL subcutaneou s Lantus 2018-0 No 1unit/m U-100 7-19 L Insulin 100 00:00: unit/mL 00 subcutaneou s solution carvedilol 2018-0 No 1mg 25 mg 7-19 tablet 00:00: 00 cyclobenzap 2018-0 No 1mg rine 10 mg 7-19 tablet 00:00: 00 cyclobenzap 2018-0 No 1mg rine 10 mg 7-19 tablet 00:00: 00 metformin 2018-0 No 1mg ER 500 mg 7-19 tablet,exte 00:00: nded 00 release 24 hr carvedilol 2018-0 No 1mg 25 mg 7-19 tablet 00:00: 00 Synthroid 2018-0 No 1mcg 25 mcg 7-19 tablet 00:00: 00 Synthroid 2018-0 No 1mcg 25 mcg 7-19 tablet 00:00: 00 amlodipine 2018-0 No 1mg 5 7-19 mg-benazepr 00:00: [place] 20 mg 00 capsule amlodipine 2018-0 No 1mg 5 7-19 mg-benazepr 00:00: il 20 mg 00 capsule gabapentin 2018-0 No 1mg 100 mg 7-19 capsule 00:00: 00 gabapentin 2018-0 No 1mg 100 mg 7-19 capsule 00:00: 00 carvedilol 2018-0 No 1mg 25 mg 7-19 tablet 00:00: 00 cyclobenzap 2018-0 No 1mg rine 10 mg 7-19 tablet 00:00: 00 aspirin 81 2018-0 No 1mg mg 7-02 tablet,igor 00:00: yed release 00 aspirin 81 2018-0 No 1mg mg 7-02 tablet,igor 00:00: yed release 00 aspirin 81 2018-0 No 1mg mg 7-02 tablet,igor 00:00: yed release 00 furosemide 2018-0 No 1mg 20 mg 3-12 tablet 00:00: 00 furosemide 2018-0 No 1mg 20 mg 3-12 tablet 00:00: 00 furosemide 2018-0 No 1mg 20 mg 3-12 tablet 00:00: 00 isosorbide 2017-0 No 1mg dinitrate 7-05 30 mg 00:00: tablet 00 isosorbide 2017-0 No 1mg dinitrate 7-05 30 mg 00:00: tablet 00 isosorbide 2017-0 No 1mg dinitrate 7-05 30 mg 00:00: tablet 00 Atorvastati Atorvastati Yes Tre TOME DIXIE Common n Calcium n Calcium Syed (1) Spiri t TABLETA(S) [facility] Clopidogrel Clopidogrel Yes Tre TOME DIXIE Common Bisulfate Bisulfate Syed (1) Spiri t TABLETA(S) [facility] Tramadol Tramadol Yes Tre (Schedule Common HCl HCl Syed IV Drug) Otoniel TOME DIXIE [facility]. Acetaminoph Acetaminoph Yes Tre (Schedule Common en-Codeine en-Codeine Syed III Drug) Otoniel #3 #3 TOME DIXIE - [facility]. Levothyroxi Levothyroxi Yes Tre TOME DIXIE Common ne Sodium ne Sodium Syed (1) Spiri t TABLETA(S) - [facility] Lisinopril Lisinopril Yes Tre TOME DIXIE Common Syed (1) Spirit TABLETA(S) - [facility] Lantus Lantus Yes Tre INYECTE 20 Co mmon SoloStar SoloStar Syed UNIDADES Spi rit DEBAJO DE - [facility] Carvedilol Carvedilol Yes Tre MONTOYA DIXIE Common Syed (1) Spirit TABLETA(S) - [facility] Humulin R Humulin R Yes Tre INJECT Common Syed TWELVE Spirit (12) UNITS - [facility] Center AND USE SLIDING SCALE UP TO MAX DAILY DOSE OF 40 UNITS. Furosemide Furosemide Yes Tre MONTOYA DIXIE Common Syed (1) Spirit TABLETA(S) [facility] Center Lidocaine-P Lidocaine-P Yes Tre APLIQUE Common rilocaine rilocaine Syed DIXIE (1) Sp dede HORA ANTES - [facility] Center SEMANA. Amlodipine Amlodipine Yes Tre COLIN Common Besylate Besylate Syed (1) Spirit TABLETA(S) - [facility] Center Immunizations Ordered Immunization Filled Immunization Date Status Commen ts Source Name Name Moderna COVID-19 2020-10-04 Completed Vaccine 00:00:00 Moderna COVID-19 2020-10-04 Completed Vaccine 00:00:00 Moderna COVID-19 2020-10-04 Completed Vaccine 00:00:00 Moderna COVID-19 2020-09-05 Completed Vaccine 00:00:00 Moderna COVID-19 2020-09-05 Completed Vaccine 00:00:00 Moderna COVID-19 2020-09-05 Completed Vaccine 00:00:00 zoster 2018-02-04 Completed 00:00:00 pneumococcal 2018-02-04 Completed polysacchar 00:00:00 zoster 2018-02-04 Completed 00:00:00 pneumococcal 2018-02-04 Completed polysacchar 00:00:00 zoster 2018-02-04 Completed 00:00:00 pneumococcal 2018-02-04 Completed polysacchar 00:00:00 Vital Signs Vital Name Observation Time Observation Value Comments Source BP Systolic 2022-02-17 17:22:00 159 mm[Hg] BP Diastolic 2022-02-17 17:22:00 71 mm[Hg] Weight Measured 2022-02-17 17:22:00 123.80 pounds Height Measured 2022-02-17 17:22:00 63.00 inches Body Temperature 2022-02-17 17:22:00 97.20 degrees Heart Rate 2022-02-17 17:22:00 69.00 /min Respiratory Rate 2022-02-17 17:22:00 24.00 /min BP Systolic 2022-02-08 16:54:00 179 mm[Hg] BP Diastolic 2022-02-08 16:54:00 82 mm[Hg] Weight Measured 2022-02-08 16:54:00 121.40 pounds Height Measured 2022-02-08 16:54:00 63.00 inches Body Temperature 2022-02-08 16:54:00 98.70 degrees Heart Rate 2022-02-08 16:54:00 75.00 /min Respiratory Rate 2022-02-08 16:54:00 BP Systolic 2022-02-08 16:36:00 179 mm[Hg] BP Diastolic 2022-02-08 16:36:00 82 mm[Hg] Weight Measured 2022-02-08 16:36:00 121.40 pounds Height Measured 2022-02-08 16:36:00 63.00 inches Body Temperature 2022-02-08 16:36:00 98.70 degrees Heart Rate 2022-02-08 16:36:00 75.00 /min Respiratory Rate 2022-02-08 16:36:00 BP Systolic 2022-01-28 13:42:00 151 mm[Hg] BP Diastolic 2022-01-28 13:42:00 74 mm[Hg] Weight Measured 2022-01-28 13:42:00 120.00 pounds Height Measured 2022-01-28 13:42:00 63.00 inches Body Temperature 2022-01-28 13:42:00 97.20 degrees Heart Rate 2022-01-28 13:42:00 79.00 /min Respiratory Rate 2022-01-28 13:42:00 18.00 /min BP Systolic 2021-11-30 15:56:00 137 mm[Hg] BP Diastolic 2021-11-30 15:56:00 64 mm[Hg] Weight Measured 2021-11-30 15:56:00 120.20 pounds Height Measured 2021-11-30 15:56:00 63.00 inches Body Temperature 2021-11-30 15:56:00 98.30 degrees Heart Rate 2021-11-30 15:56:00 73.00 /min Respiratory Rate 2021-11-30 15:56:00 BP Systolic 2020-11-24 14:04:00 168 mm[Hg] BP Diastolic 2020-11-24 14:04:00 66 mm[Hg] Weight Measured 2020-11-24 14:04:00 117.40 pounds Height Measured 2020-11-24 14:04:00 63.00 inches Body Temperature 2020-11-24 14:04:00 98.90 degrees Heart Rate 2020-11-24 14:04:00 86.00 /min Respiratory Rate 2020-11-24 14:04:00 25.00 /min BP Systolic 2020-07-26 13:19:00 198 mm[Hg] BP Diastolic 2020-07-26 13:19:00 78 mm[Hg] Weight Measured 2020-07-26 13:19:00 120.20 pounds Height Measured 2020-07-26 13:19:00 63.00 inches Body Temperature 2020-07-26 13:19:00 98.20 degrees Heart Rate 2020-07-26 13:19:00 95.00 /min Respiratory Rate 2020-07-26 13:19:00 16.00 /min Systolic (mm Hg) 2020-06-07 15:31:00 Weston elena [place] Diastolic (mm Hg) 2020-06-07 [facility] 2020-06-07 15:31:00 [facility] [place] Respitory Rate 2020-06-07 15:31:00 Selene al Vladimir Height 2020-06-07 15:31:00 154.94 cm [facility] Weight 2020-06-07 15:31:00 [facility] [place] BMI Calculated 2020-06-07 15:31:00 Selene al [place] BP Systolic 2020-04-18 15:07:00 168 mm[Hg] BP Diastolic 2020-04-18 15:07:00 69 mm[Hg] Weight Measured 2020-04-18 15:07:00 126.80 pounds Height Measured 2020-04-18 15:07:00 63.00 inches Body Temperature 2020-04-18 15:07:00 98.30 degrees Heart Rate 2020-04-18 15:07:00 77.00 /min Respiratory Rate 2020-04-18 15:07:00 18.00 /min Systolic (mm Hg) 2020-04-05 19:29:00 Weston rial [place] Diastolic (mm Hg) 2020-04-05 19:29:00 Mem orial Vladimir Heart Rate 2020-04-05 19:29:00 [facility] [place] Respitory Rate 2020-04-05 19:29:00 Mem[facility] [place] Systolic (mm Hg) 2020-02-23 20:37:00 Weston rial Vladimir Diastolic (mm Hg) 2020-02-23 20:37:00 Mem orial Vladimir Heart Rate 2020-02-23 20:37:00 [facility] Respitory Rate 2020-02-23 20:37:00 Memori al [place] Temperature Oral (F) 2020-02-23 20:37:00 98.3 F [facility] [place] Height 2020-02-23 20:37:00 157.48 cm [facility] [place] Weight 2020-02-23 20:37:00 [facility] BMI Calculated 2020-02-23 20:37:00 Memori al Vladimir BP Systolic 2020-01-09 17:09:00 159 mm[Hg] BP Diastolic 2020-01-09 17:09:00 75 mm[Hg] Weight Measured 2020-01-09 17:09:00 132.80 pounds Height Measured 2020-01-09 17:09:00 63.00 inches Body Temperature 2020-01-09 17:09:00 98.10 degrees Heart Rate 2020-01-09 17:09:00 85.00 /min Respiratory Rate 2020-01-09 17:09:00 17.00 /min Diastolic (mm Hg) 2020-01-05 20:43:00 Mem orial Vladimir Heart Rate 2020-01-05 20:43:00 [facility] [place] Respitory Rate 2020-01-05 20:43:00 Memori al Vladimir Temperature Oral (F) 2020-01-05 20:43:00 99.1 F [facility] [place] Height 2020-01-05 20:43:00 160.02 cm [facility] [place] Weight 2020-01-05 20:43:00 [facility] BMI Calculated 2020-01-05 20:43:00 Memori al Vladimir Systolic (mm Hg) 2020-01-05 20:43:00 Weston rial Vladimir BP Systolic 2019-11-19 12:06:00 213 mm[Hg] BP Diastolic 2019-11-19 12:06:00 88 mm[Hg] Weight Measured 2019-11-19 12:06:00 128.60 pounds Height Measured 2019-11-19 12:06:00 63.00 inches Body Temperature 2019-11-19 12:06:00 98.60 degrees Heart Rate 2019-11-19 12:06:00 83.00 /min Respiratory Rate 2019-11-19 12:06:00 16.00 /min BP Systolic 2019-11-19 11:25:00 213 mm[Hg] BP Diastolic 2019-11-19 11:25:00 88 mm[Hg] Weight Measured 2019-11-19 11:25:00 128.60 pounds Height Measured 2019-11-19 11:25:00 63.00 inches Body Temperature 2019-11-19 11:25:00 98.60 degrees Heart Rate 2019-11-19 11:25:00 83.00 /min Respiratory Rate 2019-11-19 11:25:00 16.00 /min Systolic (mm Hg) 2019-11-17 20:14:00 Weston elena [place] Diastolic (mm Hg) 2019-11-17 20:14:00 [facility] Heart Rate 2019-11-17 20:14:00 [facility] Respitory Rate 2019-11-17 20:14:00 Zeyadori al [place] Height 2019-11-17 20:14:00 160.02 cm [facility] [place] Weight 2019-11-17 20:14:00 [facility] [place] BMI Calculated 2019-11-17 20:14:00 Memori al Vladimir BP Systolic 2019-09-01 16:43:00 136 mm[Hg] BP Diastolic 2019-09-01 16:43:00 67 mm[Hg] Weight Measured 2019-09-01 16:43:00 134.00 pounds Height Measured 2019-09-01 16:43:00 63.00 inches Body Temperature 2019-09-01 16:43:00 98.70 degrees Heart Rate 2019-09-01 16:43:00 78.00 /min Respiratory Rate 2019-09-01 16:43:00 16.00 /min BP Systolic 2019-08-25 13:37:00 140 mm[Hg] BP Diastolic 2019-08-25 13:37:00 64 mm[Hg] Weight Measured 2019-08-25 13:37:00 133.00 pounds Height Measured 2019-08-25 13:37:00 63.00 inches Body Temperature 2019-08-25 13:37:00 97.90 degrees Heart Rate 2019-08-25 13:37:00 74.00 /min Respiratory Rate 2019-08-25 13:37:00 16.00 /min BP Systolic 2019-07-21 16:06:00 134 mm[Hg] BP Diastolic 2019-07-21 16:06:00 64 mm[Hg] Weight Measured 2019-07-21 16:06:00 132.60 pounds Height Measured 2019-07-21 16:06:00 63.00 inches Body Temperature 2019-07-21 16:06:00 97.90 degrees Heart Rate 2019-07-21 16:06:00 70.00 /min Respiratory Rate 2019-07-21 16:06:00 Procedures Procedure Date / Time Performed Performing Clinician [facility] e REFERRAL- 2022-02-06 05:01:00 [facility] REQUEST/RESPONSE Name Medical Branch 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 Plan of Care Planned Activity Planned Date Details Comments Source Goal Plan of Care Note [code = 75379-7] Goal Plan of Care Note [code = 31806-3] Goal Plan of Care Note [code = 78906-5] Goal Plan of Care Note [code = 52575-9] Goal Plan of Care Note [code = 40014-3] Goal Plan of Care Note [code = 79783-0] Goal Plan of Care Note [code = 36734-4] Goal Plan of Care Note [code = 85955-5] Goal Plan of Care Note [code = 21535-8] Goal Plan of Care Note [code = 41115-5] Goal Plan of Care Note [code = 97837-2] Goal Plan of Care Note [code = 46687-8] Goal Plan of Care Note [code = 65792-0] Goal Plan of Care Note [code = 83292-0] Goal Plan of Care Note [code = 72991-6] Goal Plan of Care Note [code = 76846-6] Goal Plan of Care Note [code = 41775-3] Goal Plan of Care Note [code = 13047-6] Goal Plan of Care Note [code = 97342-9] Goal Plan of Care Note [code = 18626-2] Goal Plan of Care Note [code = 48404-9] Goal Plan of Care Note [code = 75969-7] Goal Plan of Care Note [code = 33265-1] Goal Plan of Care Note [code = 54743-8] Goal Plan of Care Note [code = 17993-8] Goal Plan of Care Note [code = 21948-4] Goal Plan of Care Note [code = 74824-4] Goal Plan of Care Note [code = 15001-3] Goal Plan of Care Note [code = 63859-3] Goal Plan of Care Note [code = 89224-8] Goal Plan of Care Note [code = 88135-0] Goal Plan of Care Note [code = 97283-2] Goal Plan of Care Note [code = 46220-3] Goal Plan of Care Note [code = 90960-7] Goal Plan of Care Note [code = 39086-0] Goal Plan of Care Note [code = 76945-1] Goal Plan of Care Note [code = 57109-7] Goal Plan of Care Note [code = 31948-8] Goal Plan of Care Note [code = 62761-2] Goal Plan of Care Note [code = 78557-4] Goal Plan of Care Note [code = 61865-9] Goal Plan of Care Note [code = 56602-8] Goal Plan of Care Note [code = 89028-0] Goal Plan of Care Note [code = 00598-0] Goal Plan of Care Note [code = 43134-7] Goal Plan of Care Note [code = 97017-5] Goal Plan of Care Note [code = 06022-0] Goal Plan of Care Note [code = 18076-2] Goal Plan of Care Note [code = 81015-3] Goal Plan of Care Note [code = 78004-2] Goal Plan of Care Note [code = 48437-9] Goal Plan of Care Note [code = 24514-8] Goal Plan of Care Note [code = 47257-9] Goal Plan of Care Note [code = 36729-4] Goal Plan of Care Note [code = 94431-0] Goal Plan of Care Note [code = 30716-7] Goal Plan of Care Note [code = 68825-6] Goal Plan of Care Note [code = 15433-7] Goal Plan of Care Note [code = 83570-9] Goal Plan of Care Note [code = 46510-2] Goal Plan of Care Note [code = 88152-8] Goal Plan of Care Note [code = 34451-7] Goal Plan of Care Note [code = 74808-0] Goal Plan of Care Note [code = 90579-9] Goal Plan of Care Note [code = 30415-6] Goal Plan of Care Note [code = 78060-9] Goal Plan of Care Note [code = 97376-5] Goal Plan of Care Note [code = 20594-8] Goal Plan of Care Note [code = 93714-6] Goal Plan of Care Note [code = 16323-9] Goal Plan of Care Note [code = 31404-0] Goal Plan of Care Note [code = 83713-0] Goal Plan of Care Note [code = 87842-9] Goal Plan of Care Note [code = 66275-1] Goal Plan of Care Note [code = 81951-7] Goal Plan of Care Note [code = 85949-1] Goal Plan of Care Note [code = 57903-4] Goal Plan of Care Note [code = 67147-9] Goal Plan of Care Note [code = 39424-2] Goal Plan of Care Note [code = 15061-9] Goal Plan of Care Note [code = 95925-8] Goal Plan of Care Note [code = 90574-3] Goal Plan of Care Note [code = 76978-7] Goal Plan of Care Note [code = 71221-7] Goal Plan of Care Note [code = 00714-8] Goal Plan of Care Note [code = 88357-0] Goal Plan of Care Note [code = 38413-3] Goal Plan of Care Note [code = 27331-2] Goal Plan of Care Note [code = 70462-5] Goal Plan of Care Note [code = 53528-0] Goal Plan of Care Note [code = 84159-9] Goal Plan of Care Note [code = 67310-0] Goal Plan of Care Note [code = 75901-0] Goal Plan of Care Note [code = 98534-4] Goal Plan of Care Note [code = 28769-6] Goal Plan of Care Note [code = 84193-9] Goal Plan of Care Note [code = 12089-6] Goal Plan of Care Note [code = 96872-7] Goal Plan of Care Note [code = 42579-7] Goal Plan of Care Note [code = 33759-4] Goal Plan of Care Note [code = 59351-8] Goal Plan of Care Note [code = 20841-0] Goal Plan of Care Note [code = 30576-5] Goal Plan of Care Note [code = 83117-9] Goal Plan of Care Note [code = 69396-5] Goal Plan of Care Note [code = 30523-7] Goal Plan of Care Note [code = 45938-9] Goal Plan of Care Note [code = 61198-8] Goal Plan of Care Note [code = 95242-4] Goal Plan of Care Note [code = 73505-2] Goal Plan of Care Note [code = 00016-6] Goal Plan of Care Note [code = 60064-6] Goal Plan of Care Note [code = 94300-0] Goal Plan of Care Note [code = 55679-5] Encounters Start End Encounter Admission Attending Care Care Encounter Source Date/Time Date/Time Type Type Clinicians Facility Department ID 2021-07-17 [id number] Common 11:09:09 [id number] [facility] 2022-02-17 2022-02-17 Outpatient [id number] 00:00:00 00:00:00 Visit 295f-4f28 95f-4f28-a -[id number] [id number] 2022-02-08 2022-02-08 Outpatient [id number] 00:00:00 00:00:00 Visit a1r7-7yw3 2y2-1yv3-9 -845f-c0a 45f-c0a5b0 [id number] [id number] 2022-02-06 2022-02-06 Orders Doctor ISAIAS [id number] 00:00:00 00:00:00 Only Unassigned, HODA 350.1.13.[address] [employer] [facility] 4.2.7.2.686 Derek as [phone] Medi karoline 009 Branch 2021-12-20 2021-12-20 Outpatient [id number] 00:00:00 00:00:00 Visit x6ad-2ziv 9fe-4bbf-a -c641-464 [id number] 2020-06-07 2020-06-08 Outpatient nullFlavo MNA [id number] Memoria 15:15:00 05:59:59 r Neurology 09 l Hester Vladimir 2020-06-07 2020-06-08 Outpatient nullFlavo MNA [id number] Memoria 15:15:00 05:59:59 r Neurology 09 l [place] 2020-06-07 2020-06-07 Outpatient Ashu MISCHER MHMISCHER [id number] 09:15:00 23:59:59 Shoaib 09 [place] 2020-06-07 2020-06-07 Outpatient MHIE MHIE [id number] Memoria 09:15:00 09:15:00 09 giovanni [place] 2020-05-22 2020-05-22 Ambulatory nullFlavo MNA [id number] Memoria 20:45:00 20:45:00 Pre-Reg r Neurology 08 l Hester [place] 2020-05-22 2020-05-22 Ambulatory nullFlavo MNA [id number] Memoria 20:45:00 20:45:00 Pre-Reg r Neurology 08 l Hester Vladimir 2020-05-22 2020-05-22 Outpatient MHIE MHIE [id number] Memoria 14:45:00 14:45:00 08 giovanni [place] 2020-05-22 2020-05-22 Outpatient Ashu MISCHER MHMISCHER [id number] 14:45:00 14:45:00 Shoaib 08 [place] 2020-04-05 2020-04-06 Outpatient nullFlavo MNA [id number] Memoria 19:00:00 04:59:59 r Neurology 07 l Hesterseveriano [place] 2020-04-05 2020-04-06 Outpatient nullFlavo MNA [id number] Memoria 19:00:00 04:59:59 r Neurology 07 l Hester [place] 2020-04-05 2020-04-05 [facility] [id number] 14:00:00 23:59:59 Shoaib 07 [place] 2020-04-05 2020-04-05 Outpatient MHIE MHIE [id number] Memoria 14:00:00 14:00:00 07 l [place] 2020-02-23 2020-02-24 Outpatient nullFlavo MNA [id number] Memoria 20:15:00 04:59:59 r Neurology 06 l Hester [place] 2020-02-23 2020-02-24 Outpatient nullFlavo MNA [id number] Memoria 20:15:00 04:59:59 r Neurology 06 l [place] Gilbert 2020-02-23 2020-02-23 [id number] 15:15:00 23:59:59 Shoaib 06 [place] 2020-02-23 2020-02-23 Outpatient MHIE MHIE [id number] Memoria 15:15:00 15:15:00 06 l [place] 2020-01-25 2020-01-25 Outpatient STLMLC STLMLC [id number] Common 00:00:00 00:00:00 [facility] 2020-01-05 2020-01-06 Outpatient nullFlavo MNA [id number] Memoria 20:15:00 04:59:59 r Neurology 05 l Hester [place] 2020-01-05 2020-01-06 Outpatient nullFlavo MNA [id number] Memoria 20:15:00 04:59:59 r Neurology 05 l Hester Vladimir 2020-01-05 2020-01-05 [facility] [id number] 15:15:00 23:59:59 Shoaib 05 [place] 2020-01-05 2020-01-05 Outpatient MHIE MHIE [id number] Memoria 15:15:00 15:15:00 05 l [place] 2019-12-29 2019-12-29 Ambulatory nullFlavo MNA [id number] Memoria 20:15:00 20:15:00 Pre-Reg r Neurology 04 l [place] Gilbert 2019-12-29 2019-12-29 Ambulatory nullFlavo MNA [id number] Memoria 20:15:00 20:15:00 Pre-Reg r Neurology 02 l [place] 2019-12-29 2019-12-29 Ambulatory nullFlavo MNA [id number] Memoria 20:15:00 20:15:00 Pre-Reg r Neurology 02 l [place] 2019-12-29 2019-12-29 Ambulatory nullFlavo MNA [id number] Memoria 20:15:00 20:15:00 Pre-Reg r Neurology 04 l [place] 2019-12-29 2019-12-29 Outpatient MHIE MHIE [id number] Memoria 15:15:00 15:15:00 02 giovanni [place] 2019-12-29 2019-12-29 Outpatient MHIE MHIE [id number] Memoria 15:15:00 15:15:00 04 giovanni Vladimir 2019-12-29 2019-12-29 Outpatient Ashu MHMISCHER MHMISCHER [id number] 15:15:00 15:15:00 Shoaib 02 [place] 2019-12-29 2019-12-29 Outpatient Ashu, MHMISCHER MHMISCHER [id number] 15:15:00 15:15:00 Shoaib 04 [place] 2019-11-23 2019-11-24 Outpatient nullFlavo MNA [id number] Memoria 18:00:00 04:59:59 r Neurology 03 l [place] Gilbert 2019-11-23 2019-11-24 Outpatient nullFlavo MNA [id number] Memoria 18:00:00 04:59:59 r Neurology 03 l [place] Vladimir 2019-11-23 2019-11-23 Outpatient Ashu, MHMISCHER MHMISCHER [id number] 13:00:00 23:59:59 Shoaib 03 [place] 2019-11-23 2019-11-23 Outpatient MHIE MHIE [id number] Memoria 13:00:00 13:00:00 03 giovanni Vladimir 2019-11-17 2019-11-18 Outpatient nullFlavo MNA [id number] Memoria 20:00:00 04:59:59 r Neurology 01 l [place] 2019-11-17 2019-11-18 Outpatient nullFlavo MNA [id number] Memoria 20:00:00 04:59:59 r Neurology 01 l [place] 2019-11-17 2019-11-17 [id number] 15:00:00 23:59:59 Shoaib 01 [place] 2019-11-17 2019-11-17 Outpatient MHIE IE [id number] Memoria 15:00:00 15:00:00 01 giovanni Gilbert 2019-10-06 2019-10-06 Ambulatory nullFlavo MNA [id number] Memoria 18:30:00 18:30:00 Pre-Reg r Neurology 00 l [place] Gilbert 2019-10-06 2019-10-06 Ambulatory nullFlavo MNA [id number] Memoria 18:30:00 18:30:00 Pre-Reg r Neurology 00 l [place] Vladimir 2019-10-06 2019-10-06 [id number] 13:30:00 13:30:00 Shoaib 00 [place] 2019-08-11 2019-08-11 [id number] Common 14:00:00 14:00:00 [facility] 2018-07-20 2018-07-20 Day nullFlavo [facility] [id number] Memoria 21:00:00 21:00:00 Surgery r Vladimir 00 l [facility] 2018-07-20 2018-07-20 Day nullFlavo [facility] [id number] Memoria 21:00:00 21:00:00 Surgery r Vladimir 00 l [facility] 2018-07-20 2018-07-20 [id number] 15:00:00 15:00:00 Ariela Franklin 00 Results Test Description Test Time Test Comments Results Result Comments Source CULTURE, URINE 2022-02-14 SPECIMEN NUMBER: 09:28:15 [id number] CULTURE, URINE SPECIMEN NUMBER: [id number] SPECIMEN COMMENT: URINE SOURCE: URINE REPORT STATUS: FINAL FINAL REPORT: 02/14/2022 <10,000 CFU/ML UROGENITAL HECTOR PRESENT NO COMMON PATHOGENS UNLESS OTHERWISE INDICATED, ALL TESTING PERFORMED [facility], [facility]. [address] [place] [address] MANAGER SOFTWARE: ALLEY COBURN M.D. CLIA NUMBER [id number] [place]. [id number] CULTURE, URINE 2022-02-14 00:00:00 Test Item Value Reference Range Interpretation Comme nts CULTURE, URINE (test code = 45692) SPECIMEN NUMBER: [id number] CULTURE, [id number] 00:00:00 Test Item Value Reference Range Interpretation Comments CULTURE, URINE (test SPECIMEN NUMBER: code = 32254) [id number] VITAMIN D, 25 [id number] 05:45:34 Test Item Value Reference Range Interpretation Comments VITAMIN D, 25 OH 34 NG/ML SEE BELOW NOTE: 25-H YDROXYVITAMIN D (test code = 4958) ASSAY INC LUDES 25-HYDROXYVITAM IN D2 AND D3. METHODOLOGY IS CHEMILUMINESCEN T IMMUNOASSAY. INTERPRETIVE RA NGES PEDIATRIC (<17 YEARS) . . . . . . . . . . . NG/ML 20-100ADULT: IN SUFFICIENT . . . . . . . . . . . . . . NG/ML <20 SUBOP TIMAL . . . . . . . . . . . . . . . NG/ML 20-29 OPT IMAL . . . . . . . . . . . . . . . . . NG/ML 30-100 HEMOGLOBIN [id number] 05:43:15 Test Item Value Reference Range Interpretation Comments HEMOGLOBIN A1c (test 10.5 % 4.2-5.6 H AMERIC AN DIABETES code = 41987) ASSOCIATION IDELINES FOR HGB A1C: PREDIABETES/INC REASED RISK . . . . . . . 5 .7-6.4% DIAGNOSIS OF DI ABETES . . . . . . . . . >=6 .5% WITH CONFIRMATION OR APPROPRIATE SYMPTOMS NOTE: ASSAY MAY BE AFFECTED BY HEMOGLOBINOPATH IES (SICKLE CELL ANEMIA, S- C DISEASE, OTHERS) OR SANDRA FICIALLY LOWERED BY DECR EASED RED CELL SURVIVAL ( HEMOLYTIC ANEMIAS, BLOOD LOSS, ETC.). CONSIDER ALTERN ATE TESTING OR LABORATORY C ONSULTATION. CBC W/AUTO DIFF WITH [id number] 04:31:24 Test Item Value Reference Range Interpretation Comments WBC (test code = 7.5 K/UL 3.5-11.0 1001) RBC (test code = 4.01 M/UL 3.80-5.40 1002) HEMOGLOBIN (test 11.3 G/DL 11.5-15.5 L code = 1003) HEMATOCRIT (test 34.1 % 34.0-45.0 code = 1004) MCV (test code = 85.0 fL 80.0-99.0 1005) MCH (test code = 28.2 PG 25.0-33.0 1006) MCHC (test code = 33.1 G/DL 31.0-36.0 1007) RDW (test code = 13.3 % 11.5-15.0 1038) NEUTROPHILS (test 66.7 % code = 1008) LYMPHOCYTES (test 19.8 % code = 1010) MONOCYTES (test code 7.6 % = 1011) EOSINOPHILS (test 4.5 % code = 1012) BASOPHILS (test code 1.1 % = 1013) IMMATURE 0.3 % GRANULOCYTES (test code = 1036) NUCLEATED RBCS (test 0.0 /100 See_Comment [Autom ated message] code = 1065) WBC'S The system Daqi generated this result transmitted ref erence range: 0.0. The reference range was not used to int erpret this result as normal/abnormal . PLATELET COUNT (test 204 K/UL 130-400 code = 1015) ABSOLUTE NEUTROPHILS 5.03 K/UL 1.50-7.50 (test code = 1066) ABSOLUTE LYMPHOCYTES 1.49 K/UL 1.00-4.00 (test code = 1067) ABSOLUTE MONOCYTES 0.57 K/UL 0.20-1.00 (test code = 1068) ABSOLUTE EOSINOPHILS 0.34 K/UL 0.00-0.50 (test code = 1040) ABSOLUTE BASOPHILS 0.08 K/UL 0.00-0.20 (test code = 1069) ABS IMMATURE 0.02 K/UL 0.00-0.10 GRANULOCYTES (test code = 1020) ABS NUCLEATED RBCS 0.00 K/UL 0.00-0.11 UNLESS O THERWISE (test code = 91709) INDICATE D, ALL TESTING PERFORM ED [facility], [place] [place] [address] [facility] DIRECTOR: ALLEY COBURN M.D. [place] NUMBER [id number] CAP ACCREDITATION N O. [id number] HIV 1/2 4TH GEN, RFLX [id number] 04:04:35 Test Item Value Reference Range Interpretation Comments HIV 1/2 4TH GEN, RFLX CONF (test NON-REACTIVE NON-REACTIVE code = 3514) COMPREHENSIVE METABOLIC [id number] 03:38:50 Test Item Value Reference Range Interpretation Comments GLUCOSE (test code = 134 MG/DL 70-99 H 2216) BUN (test code = 33 MG/DL 8-23 H 2207) CREATININE (test 5.01 MG/DL 0.60-1.30 H code = 2214) eGFR (2020 CKD-EPI) 9 ML/MIN/1.73 >60 L (test code = 30076) CALC BUN/CREAT (test 7 RATIO 6-28 code = 2235) SODIUM (test code = 138 MEQ/L 774-036 1946) POTASSIUM (test code 4.2 MEQ/L 3.5-5.4 = 2227) CHLORIDE (test code 97 MEQ/L 95-107 = 221) CARBON DIOXIDE (test 25 MEQ/L 19-31 code = 2206) CALCIUM (test code = 9.6 MG/DL 8.5-10.5 2208) PROTEIN, TOTAL (test 7.3 G/DL 6.1-8.3 code = 2229) ALBUMIN (test code = 4.4 G/DL 3.5-5.2 2200) CALC GLOBULIN (test 2.9 G/DL 1.9-3.7 code = 2240) CALC A/G RATIO (test 1.5 RATIO 1.0-2.6 code = 2234) BILIRUBIN, TOTAL 0.5 MG/DL See_Comment [Automated message] (test code = 2207) The syste m which generated this result transmit niya reference range : <=1.2. The refe rence range was not u sed to interpret th is result as normal/abnormal . ALKALINE PHOSPHATASE 158 U/L 40-140 H (test code = 2204) AST (test code = 22 U/L 9-40 2217) ALT (test code = 16 U/L 5-40 2218) LIPID [id number] 03:38:50 Test Item Value Reference Range Interpretation Comments CHOLESTEROL (test 142 MG/DL <200 code = 2210) TRIGLYCERIDES (test 59 MG/DL <150 code = 2232) HDL CHOLESTEROL (test 74 MG/DL >39 code = 2220) CALC LDL CHOL (test 54 MG/DL <100 NOTE: C ALCULATED LDL code = 2237) IS BASED ON EVER-REES METHOD WHICHINCLUDES ADJUSTABLE TRIGLYCERIDE:VL DL CHOLESTEROL RAT IO.THIS FACTOR VARIES B Y MEASURED TRIGLY CERIDE AND NON-HDLCHOL ESTEROL CONCENTRATIONS WITH INCREASED CALCU LATED LDL SEENIN HIGH ER TRIGLYCERIDE OR LOWER NON-HDL SPECIME NS. FOR MOREINFORMATION , SEE CLIENT ANNOUNCE MENT AT [email or web address] RISK RATIO LDL/HDL 0.73 RATIO <3.22 (test code = 2238) COMPREHENSIVE METABOLIC [id number] 00:00:00 Test Item Value Reference Range Interpretation Comments GLUCOSE (test code = 2217) 134 MG/DL BUN (test code = 2208) 33 MG/DL CREATININE (test code = 2214) 5.01 MG/DL eGFR (2020 CKD-EPI) (test code 9 ML/MIN/1.73 = 74030) CALC BUN/CREAT (test code = 7 RATIO 5) SODIUM (test code = 2231) 138 MEQ/L POTASSIUM (test code = 2228) 4.2 MEQ/L CHLORIDE (test code = 2215) 97 MEQ/L CARBON DIOXIDE (test code = 25 MEQ/L 2205) CALCIUM (test code = 2209) 9.6 MG/DL PROTEIN, TOTAL (test code = 7.3 G/DL 2228) ALBUMIN (test code = 2201) 4.4 G/DL CALC GLOBULIN (test code = 2.9 G/DL 2239) CALC A/G RATIO (test code = 1.5 RATIO 2233) BILIRUBIN, TOTAL (test code = 0.5 MG/DL 2206) ALKALINE PHOSPHATASE (test code 158 U/L = 2203) AST (test code = 2218) 22 U/L ALT (test code = 2219) 16 U/L COMPREHENSIVE METABOLIC [id number] 00:00:00 Test Item Value Reference Range Interpretation Comments GLUCOSE (test code = 2217) 134 MG/DL BUN (test code = 2208) 33 MG/DL CREATININE (test code = 2214) 5.01 MG/DL eGFR (2020 CKD-EPI) (test code 9 ML/MIN/1.73 = 84467) CALC BUN/CREAT (test code = 7 RATIO 2235) SODIUM (test code = 2231) 138 MEQ/L POTASSIUM (test code = 2228) 4.2 MEQ/L CHLORIDE (test code = 2215) 97 MEQ/L CARBON DIOXIDE (test code = 25 MEQ/L 2205) CALCIUM (test code = 2209) 9.6 MG/DL PROTEIN, TOTAL (test code = 7.3 G/DL 2228) ALBUMIN (test code = 2201) 4.4 G/DL CALC GLOBULIN (test code = 2.9 G/DL 2239) CALC A/G RATIO (test code = 1.5 RATIO 2233) BILIRUBIN, TOTAL (test code = 0.5 MG/DL 2206) ALKALINE PHOSPHATASE (test code 158 U/L = 4) AST (test code = 2218) 22 U/L ALT (test code = 2219) 16 U/L LIPID [id number] 00:00:00 Test Item Value Reference Range Interpretation Comments CHOLESTEROL (test code = 2210) 142 MG/DL TRIGLYCERIDES (test code = 2232) 59 MG/DL HDL CHOLESTEROL (test code = 2220) 74 MG/DL CALC LDL CHOL (test code = 2237) 54 MG/DL RISK RATIO LDL/HDL (test code = 0.73 RATIO 2238) LIPID [id number] 00:00:00 Test Item Value Reference Range Interpretation Comments CHOLESTEROL (test code = 2210) 142 MG/DL TRIGLYCERIDES (test code = 2232) 59 MG/DL HDL CHOLESTEROL (test code = 2220) 74 MG/DL CALC LDL CHOL (test code = 2237) 54 MG/DL RISK RATIO LDL/HDL (test code = 0.73 RATIO 2238) HIV AB/AG COMBO RFLX [id number] 00:00:00 Test Item Value Reference Range Interpretation Comments HIV 1/2 4TH GEN, RFLX CONF (test NON-REACTIVE code = 3514) HIV AB/AG COMBO RFLX [id number] 00:00:00 Test Item Value Reference Range Interpretation Comments HIV 1/2 4TH GEN, RFLX CONF (test NON-REACTIVE code = 3514) CBC W/AUTO [id number] 00:00:00 Test Item Value Reference Range Interpretation Comments WBC (test code = 1001) 7.5 K/UL RBC (test code = 1002) 4.01 M/UL HEMOGLOBIN (test code = 1003) 11.3 G/DL HEMATOCRIT (test code = 1004) 34.1 % MCV (test code = 1005) 85.0 fL MCH (test code = 1006) 28.2 PG MCHC (test code = 1007) 33.1 G/DL RDW (test code = 1038) 13.3 % NEUTROPHILS (test code = 1008) 66.7 % LYMPHOCYTES (test code = 1010) 19.8 % MONOCYTES (test code = 1011) 7.6 % EOSINOPHILS (test code = 1012) 4.5 % BASOPHILS (test code = 1013) 1.1 % IMMATURE GRANULOCYTES (test 0.3 % code = 1036) NUCLEATED RBCS (test code = 0.0 /100WBC'S 1065) PLATELET COUNT (test code = 204 K/UL 1015) ABSOLUTE NEUTROPHILS (test code 5.03 K/UL = 1066) ABSOLUTE LYMPHOCYTES (test code 1.49 K/UL = 1067) ABSOLUTE MONOCYTES (test code = 0.57 K/UL 1068) ABSOLUTE EOSINOPHILS (test code 0.34 K/UL = 1040) ABSOLUTE BASOPHILS (test code = 0.08 K/UL 1069) ABS IMMATURE GRANULOCYTES (test 0.02 K/UL code = 1020) ABS NUCLEATED RBCS (test code = 0.00 K/UL 61542) CBC W/AUTO [id number] 00:00:00 Test Item Value Reference Range Interpretation Comments WBC (test code = 1001) 7.5 K/UL RBC (test code = 1002) 4.01 M/UL HEMOGLOBIN (test code = 1003) 11.3 G/DL HEMATOCRIT (test code = 1004) 34.1 % MCV (test code = 1005) 85.0 fL MCH (test code = 1006) 28.2 PG MCHC (test code = 1007) 33.1 G/DL RDW (test code = 1038) 13.3 % NEUTROPHILS (test code = 1008) 66.7 % LYMPHOCYTES (test code = 1010) 19.8 % MONOCYTES (test code = 1011) 7.6 % EOSINOPHILS (test code = 1012) 4.5 % BASOPHILS (test code = 1013) 1.1 % IMMATURE GRANULOCYTES (test 0.3 % code = 1036) NUCLEATED RBCS (test code = 0.0 /100WBC'S 1065) PLATELET COUNT (test code = 204 K/UL 1015) ABSOLUTE NEUTROPHILS (test code 5.03 K/UL = 1066) ABSOLUTE LYMPHOCYTES (test code 1.49 K/UL = 1067) ABSOLUTE MONOCYTES (test code = 0.57 K/UL 1068) ABSOLUTE EOSINOPHILS (test code 0.34 K/UL = 1040) ABSOLUTE BASOPHILS (test code = 0.08 K/UL 1069) ABS IMMATURE GRANULOCYTES (test 0.02 K/UL code = 1020) ABS NUCLEATED RBCS (test code = 0.00 K/UL 82475) CBC W/AUTO [id number] 00:00:00 Test Item Value Reference Range Interpretation Comments WBC (test code = 1001) 7.5 K/UL RBC (test code = 1002) 4.01 M/UL HEMOGLOBIN (test code = 1003) 11.3 G/DL HEMATOCRIT (test code = 1004) 34.1 % MCV (test code = 1005) 85.0 fL MCH (test code = 1006) 28.2 PG MCHC (test code = 1007) 33.1 G/DL RDW (test code = 1038) 13.3 % NEUTROPHILS (test code = 1008) 66.7 % LYMPHOCYTES (test code = 1010) 19.8 % MONOCYTES (test code = 1011) 7.6 % EOSINOPHILS (test code = 1012) 4.5 % BASOPHILS (test code = 1013) 1.1 % IMMATURE GRANULOCYTES (test 0.3 % code = 1036) NUCLEATED RBCS (test code = 0.0 /100WBC'S 1065) PLATELET COUNT (test code = 204 K/UL 1015) ABSOLUTE NEUTROPHILS (test code 5.03 K/UL = 1066) ABSOLUTE LYMPHOCYTES (test code 1.49 K/UL = 1067) ABSOLUTE MONOCYTES (test code = 0.57 K/UL 1068) ABSOLUTE EOSINOPHILS (test code 0.34 K/UL = 1040) ABSOLUTE BASOPHILS (test code = 0.08 K/UL 1069) ABS IMMATURE GRANULOCYTES (test 0.02 K/UL code = 1020) ABS NUCLEATED RBCS (test code = 0.00 K/UL 33667) VITAMIN D, 25 [id number] 00:00:00 Test Item Value Reference Range Interpretation Comments VITAMIN D, 25 OH (test code = 4958) 34 NG/ML HEMOGLOBIN [id number] 00:00:00 Test Item Value Reference Range Interpretation Comments HEMOGLOBIN A1c (test code = 59738) 10.5 % HEMOGLOBIN [id number] 00:00:00 Test Item Value Reference Range Interpretation Comments HEMOGLOBIN A1c (test code = 37507) 10.5 % COMPREHENSIVE METABOLIC [id number] 00:00:00 Test Item Value Reference Range Interpretation Comments GLUCOSE (test code = 2217) 134 MG/DL BUN (test code = 2208) 33 MG/DL CREATININE (test code = 2214) 5.01 MG/DL eGFR (2020 CKD-EPI) (test code 9 ML/MIN/1.73 = 34931) CALC BUN/CREAT (test code = 7 RATIO 5) SODIUM (test code = 2231) 138 MEQ/L POTASSIUM (test code = 2228) 4.2 MEQ/L CHLORIDE (test code = 2215) 97 MEQ/L CARBON DIOXIDE (test code = 25 MEQ/L 2205) CALCIUM (test code = 2209) 9.6 MG/DL PROTEIN, TOTAL (test code = 7.3 G/DL 2228) ALBUMIN (test code = 2201) 4.4 G/DL CALC GLOBULIN (test code = 2.9 G/DL 2239) CALC A/G RATIO (test code = 1.5 RATIO 2233) BILIRUBIN, TOTAL (test code = 0.5 MG/DL 2206) ALKALINE PHOSPHATASE (test code 158 U/L = 2204) AST (test code = 2218) 22 U/L ALT (test code = 2219) 16 U/L LIPID [id number] 00:00:00 Test Item Value Reference Range Interpretation Comments CHOLESTEROL (test code = 2210) 142 MG/DL TRIGLYCERIDES (test code = 2232) 59 MG/DL HDL CHOLESTEROL (test code = 2220) 74 MG/DL CALC LDL CHOL (test code = 2237) 54 MG/DL RISK RATIO LDL/HDL (test code = 0.73 RATIO 2238) HIV AB/AG COMBO RFLX [id number] 00:00:00 Test Item Value Reference Range Interpretation Comments HIV 1/2 4TH GEN, RFLX CONF (test NON-REACTIVE code = 3514) CBC W/AUTO [id number] 00:00:00 Test Item Value Reference Range Interpretation Comments WBC (test code = 1001) 7.5 K/UL RBC (test code = 1002) 4.01 M/UL HEMOGLOBIN (test code = 1003) 11.3 G/DL HEMATOCRIT (test code = 1004) 34.1 % MCV (test code = 1005) 85.0 fL MCH (test code = 1006) 28.2 PG MCHC (test code = 1007) 33.1 G/DL RDW (test code = 1038) 13.3 % NEUTROPHILS (test code = 1008) 66.7 % LYMPHOCYTES (test code = 1010) 19.8 % MONOCYTES (test code = 1011) 7.6 % EOSINOPHILS (test code = 1012) 4.5 % BASOPHILS (test code = 1013) 1.1 % IMMATURE GRANULOCYTES (test 0.3 % code = 1036) NUCLEATED RBCS (test code = 0.0 /100WBC'S 1065) PLATELET COUNT (test code = 204 K/UL 1015) ABSOLUTE NEUTROPHILS (test code 5.03 K/UL = 1066) ABSOLUTE LYMPHOCYTES (test code 1.49 K/UL = 1067) ABSOLUTE MONOCYTES (test code = 0.57 K/UL 1068) ABSOLUTE EOSINOPHILS (test code 0.34 K/UL = 1040) ABSOLUTE BASOPHILS (test code = 0.08 K/UL 1069) ABS IMMATURE GRANULOCYTES (test 0.02 K/UL code = 1020) ABS NUCLEATED RBCS (test code = 0.00 K/UL 23732) CBC W/AUTO [id number] 00:00:00 Test Item Value Reference Range Interpretation Comments WBC (test code = 1001) 7.5 K/UL RBC (test code = 1002) 4.01 M/UL HEMOGLOBIN (test code = 1003) 11.3 G/DL HEMATOCRIT (test code = 1004) 34.1 % MCV (test code = 1005) 85.0 fL MCH (test code = 1006) 28.2 PG MCHC (test code = 1007) 33.1 G/DL RDW (test code = 1038) 13.3 % NEUTROPHILS (test code = 1008) 66.7 % LYMPHOCYTES (test code = 1010) 19.8 % MONOCYTES (test code = 1011) 7.6 % EOSINOPHILS (test code = 1012) 4.5 % BASOPHILS (test code = 1013) 1.1 % IMMATURE GRANULOCYTES (test 0.3 % code = 1036) NUCLEATED RBCS (test code = 0.0 /100WBC'S 1065) PLATELET COUNT (test code = 204 K/UL 1015) ABSOLUTE NEUTROPHILS (test code 5.03 K/UL = 1066) ABSOLUTE LYMPHOCYTES (test code 1.49 K/UL = 1067) ABSOLUTE MONOCYTES (test code = 0.57 K/UL 1068) ABSOLUTE EOSINOPHILS (test code 0.34 K/UL = 1040) ABSOLUTE BASOPHILS (test code = 0.08 K/UL 1069) ABS IMMATURE GRANULOCYTES (test 0.02 K/UL code = 1020) ABS NUCLEATED RBCS (test code = 0.00 K/UL 78863) VITAMIN D, 25 [id number] 00:00:00 Test Item Value Reference Range Interpretation Comments VITAMIN D, 25 OH (test code = 4958) 34 NG/ML VITAMIN D, 25 [id number] 00:00:00 Test Item Value Reference Range Interpretation Comments VITAMIN D, 25 OH (test code = 4958) 34 NG/ML HEMOGLOBIN [id number] 00:00:00 Test Item Value Reference Range Interpretation Comments HEMOGLOBIN A1c (test code = 01762) 10.5 % HEMOGLOBIN [id number] 00:00:00 Test Item Value Reference Range Interpretation Comments HEMOGLOBIN A1c (test code = 68154) 10.5 % HEMOGLOBIN [id number] 00:00:00 Test Item Value Reference Range Interpretation Comments HEMOGLOBIN A1c (test code = 03178) 10.5 % COMPREHENSIVE METABOLIC [id number] 00:00:00 Test Item Value Reference Range Interpretation Comments GLUCOSE (test code = 2217) 134 MG/DL BUN (test code = 2208) 33 MG/DL CREATININE (test code = 2214) 5.01 MG/DL eGFR (2020 CKD-EPI) (test code 9 ML/MIN/1.73 = 57145) CALC BUN/CREAT (test code = 7 RATIO 2235) SODIUM (test code = 2231) 138 MEQ/L POTASSIUM (test code = 2228) 4.2 MEQ/L CHLORIDE (test code = 2215) 97 MEQ/L CARBON DIOXIDE (test code = 25 MEQ/L 2206) CALCIUM (test code = 2209) 9.6 MG/DL PROTEIN, TOTAL (test code = 7.3 G/DL 2228) ALBUMIN (test code = 2201) 4.4 G/DL CALC GLOBULIN (test code = 2.9 G/DL 2240) CALC A/G RATIO (test code = 1.5 RATIO 2234) BILIRUBIN, TOTAL (test code = 0.5 MG/DL 2206) ALKALINE PHOSPHATASE (test code 158 U/L = 2203) AST (test code = 2218) 22 U/L ALT (test code = 2219) 16 U/L COMPREHENSIVE METABOLIC [id number] 00:00:00 Test Item Value Reference Range Interpretation Comments GLUCOSE (test code = 2217) 134 MG/DL BUN (test code = 2208) 33 MG/DL CREATININE (test code = 2214) 5.01 MG/DL eGFR (2020 CKD-EPI) (test code 9 ML/MIN/1.73 = 87459) CALC BUN/CREAT (test code = 7 RATIO 2235) SODIUM (test code = 2231) 138 MEQ/L POTASSIUM (test code = 2228) 4.2 MEQ/L CHLORIDE (test code = 2215) 97 MEQ/L CARBON DIOXIDE (test code = 25 MEQ/L 2205) CALCIUM (test code = 2209) 9.6 MG/DL PROTEIN, TOTAL (test code = 7.3 G/DL 2228) ALBUMIN (test code = 2201) 4.4 G/DL CALC GLOBULIN (test code = 2.9 G/DL 2240) CALC A/G RATIO (test code = 1.5 RATIO 2234) BILIRUBIN, TOTAL (test code = 0.5 MG/DL 2206) ALKALINE PHOSPHATASE (test code 158 U/L = 2204) AST (test code = 2218) 22 U/L ALT (test code = 2219) 16 U/L LIPID [id number] 00:00:00 Test Item Value Reference Range Interpretation Comments CHOLESTEROL (test code = 2210) 142 MG/DL TRIGLYCERIDES (test code = 2232) 59 MG/DL HDL CHOLESTEROL (test code = 2220) 74 MG/DL CALC LDL CHOL (test code = 2237) 54 MG/DL RISK RATIO LDL/HDL (test code = 0.73 RATIO 2238) LIPID [id number] 00:00:00 Test Item Value Reference Range Interpretation Comments CHOLESTEROL (test code = 2210) 142 MG/DL TRIGLYCERIDES (test code = 2232) 59 MG/DL HDL CHOLESTEROL (test code = 2220) 74 MG/DL CALC LDL CHOL (test code = 2237) 54 MG/DL RISK RATIO LDL/HDL (test code = 0.73 RATIO 2238) HIV AB/AG COMBO RFLX [id number] 00:00:00 Test Item Value Reference Range Interpretation Comments HIV 1/2 4TH GEN, RFLX CONF (test NON-REACTIVE code = 3514) HIV AB/AG COMBO RFLX [id number] 00:00:00 Test Item Value Reference Range Interpretation Comments HIV 1/2 4TH GEN, RFLX CONF (test NON-REACTIVE code = 3514) CBC W/AUTO [id number] 00:00:00 Test Item Value Reference Range Interpretation Comments WBC (test code = 1001) 7.5 K/UL RBC (test code = 1002) 4.01 M/UL HEMOGLOBIN (test code = 1003) 11.3 G/DL HEMATOCRIT (test code = 1004) 34.1 % MCV (test code = 1005) 85.0 fL MCH (test code = 1006) 28.2 PG MCHC (test code = 1007) 33.1 G/DL RDW (test code = 1038) 13.3 % NEUTROPHILS (test code = 1008) 66.7 % LYMPHOCYTES (test code = 1010) 19.8 % MONOCYTES (test code = 1011) 7.6 % EOSINOPHILS (test code = 1012) 4.5 % BASOPHILS (test code = 1013) 1.1 % IMMATURE GRANULOCYTES (test 0.3 % code = 1036) NUCLEATED RBCS (test code = 0.0 /100WBC'S 1065) PLATELET COUNT (test code = 204 K/UL 1015) ABSOLUTE NEUTROPHILS (test code 5.03 K/UL = 1066) ABSOLUTE LYMPHOCYTES (test code 1.49 K/UL = 1067) ABSOLUTE MONOCYTES (test code = 0.57 K/UL 1068) ABSOLUTE EOSINOPHILS (test code 0.34 K/UL = 1040) ABSOLUTE BASOPHILS (test code = 0.08 K/UL 1069) ABS IMMATURE GRANULOCYTES (test 0.02 K/UL code = 1020) ABS NUCLEATED RBCS (test code = 0.00 K/UL 68994) CBC W/AUTO [id number] 00:00:00 Test Item Value Reference Range Interpretation Comments WBC (test code = 1001) 7.5 K/UL RBC (test code = 1002) 4.01 M/UL HEMOGLOBIN (test code = 1003) 11.3 G/DL HEMATOCRIT (test code = 1004) 34.1 % MCV (test code = 1005) 85.0 fL MCH (test code = 1006) 28.2 PG MCHC (test code = 1007) 33.1 G/DL RDW (test code = 1038) 13.3 % NEUTROPHILS (test code = 1008) 66.7 % LYMPHOCYTES (test code = 1010) 19.8 % MONOCYTES (test code = 1011) 7.6 % EOSINOPHILS (test code = 1012) 4.5 % BASOPHILS (test code = 1013) 1.1 % IMMATURE GRANULOCYTES (test 0.3 % code = 1036) NUCLEATED RBCS (test code = 0.0 /100WBC'S 1065) PLATELET COUNT (test code = 204 K/UL 1015) ABSOLUTE NEUTROPHILS (test code 5.03 K/UL = 1066) ABSOLUTE LYMPHOCYTES (test code 1.49 K/UL = 1067) ABSOLUTE MONOCYTES (test code = 0.57 K/UL 1068) ABSOLUTE EOSINOPHILS (test code 0.34 K/UL = 1040) ABSOLUTE BASOPHILS (test code = 0.08 K/UL 1069) ABS IMMATURE GRANULOCYTES (test 0.02 K/UL code = 1020) ABS NUCLEATED RBCS (test code = 0.00 K/UL 42897) CBC W/AUTO [id number] 00:00:00 Test Item Value Reference Range Interpretation Comments WBC (test code = 1001) 7.5 K/UL RBC (test code = 1002) 4.01 M/UL HEMOGLOBIN (test code = 1003) 11.3 G/DL HEMATOCRIT (test code = 1004) 34.1 % MCV (test code = 1005) 85.0 fL MCH (test code = 1006) 28.2 PG MCHC (test code = 1007) 33.1 G/DL RDW (test code = 1038) 13.3 % NEUTROPHILS (test code = 1008) 66.7 % LYMPHOCYTES (test code = 1010) 19.8 % MONOCYTES (test code = 1011) 7.6 % EOSINOPHILS (test code = 1012) 4.5 % BASOPHILS (test code = 1013) 1.1 % IMMATURE GRANULOCYTES (test 0.3 % code = 1036) NUCLEATED RBCS (test code = 0.0 /100WBC'S 1065) PLATELET COUNT (test code = 204 K/UL 1015) ABSOLUTE NEUTROPHILS (test code 5.03 K/UL = 1066) ABSOLUTE LYMPHOCYTES (test code 1.49 K/UL = 1067) ABSOLUTE MONOCYTES (test code = 0.57 K/UL 1068) ABSOLUTE EOSINOPHILS (test code 0.34 K/UL = 1040) ABSOLUTE BASOPHILS (test code = 0.08 K/UL 1069) ABS IMMATURE GRANULOCYTES (test 0.02 K/UL code = 1020) ABS NUCLEATED RBCS (test code = 0.00 K/UL 59223) VITAMIN D, 25 [id number] 00:00:00 Test Item Value Reference Range Interpretation Comments VITAMIN D, 25 OH (test code = 4958) 34 NG/ML VITAMIN D, 25 [id number] 00:00:00 Test Item Value Reference Range Interpretation Comments VITAMIN D, 25 OH (test code = 4958) 34 NG/ML HEMOGLOBIN [id number] 00:00:00 Test Item Value Reference Range Interpretation Comments HEMOGLOBIN A1c (test code = 38031) 10.5 % HEMOGLOBIN [id number] 00:00:00 Test Item Value Reference Range Interpretation Comments HEMOGLOBIN A1c (test code = 79802) 10.5 % HEMOGLOBIN [id number] 00:00:00 Test Item Value Reference Range Interpretation Comments HEMOGLOBIN A1c (test code = 96014) 10.5 % SCR MAMM BILATERAL DAVIS CAD [id number] 13:49:46 Name: , Margarita Carlyn : 1960 Sex: F - SCR MAMM BILATERAL DAVIS CAD DIGITALBILATERAL DIGITAL SCREENING MAMMOGRAM 3D/2D WITH CAD: 11/16/2020LINICAL: Asymptomatic. Digital breasttomosynthesis was performed in addition to routine CC and MLO views. Current mammographic images were evaluated by [employer] CAD (computer-aided detection) software. Comparison is made to exam dated 04/21/2018 mammogram - [facility]. There are scattered fibroglandular tissues in both breasts. There are benign vascular calcifications in both breasts. No suspicious mass, architectural distortion, malignant type calcification, or lymph node abnormality detected. Breast dl ecture is stable compared to prior exams.IMPRESSION: BENIGNThere is no mammographic evidence of malignancy. Resume annual screening mammography in one year. Fish Alejandro M.D. ss/penrad:11/28/2020 13:49:46 Business System Manager: Becka Reed MM, [facility]: BIRADS 1-2 Normal Mammogram BI-RADS: 2 BenignHEMOGLOBIN [id number] 00:00:00 Test Item Value Reference Range Interpretation Comments HEMOGLOBIN A1c (test code = 99176) 8.6 % HEMOGLOBIN [id number] 00:00:00 Test Item Value Reference Range Interpretation Comments HEMOGLOBIN A1c (test code = 85106) 8.6 % HEMOGLOBIN [id number] 00:00:00 Test Item Value Reference Range Interpretation Comments HEMOGLOBIN A1c (test code = 33850) 8.6 % HEMOGLOBIN [id number] 00:00:00 Test Item Value Reference Range Interpretation Comments HEMOGLOBIN A1c (test code = 71368) 8.6 % HEMOGLOBIN [id number] 00:00:00 Test Item Value Reference Range Interpretation Comments HEMOGLOBIN A1c (test code = 32606) 8.6 % HEMOGLOBIN [id number] 00:00:00 Test Item Value Reference Range Interpretation Comments HEMOGLOBIN A1c (test code = 71143) 8.6 % HEMOGLOBIN [id number] 00:00:00 Test Item Value Reference Range Interpretation Comments HEMOGLOBIN A1c (test code = 39146) 8.6 % HEMOGLOBIN [id number] 00:00:00 Test Item Value Reference Range Interpretation Comments HEMOGLOBIN A1c (test code = 27840) 8.6 % LIPID [id number] 00:00:00 Test Item Value Reference Range Interpretation Comments CHOLESTEROL (test code = 2210) 186 MG/DL TRIGLYCERIDES (test code = 2232) 88 MG/DL HDL CHOLESTEROL (test code = 2220) 80 MG/DL CALC LDL CHOL (test code = 2237) 88 MG/DL RISK RATIO LDL/HDL (test code = 1.10 RATIO 2238) LIPID [id number] 00:00:00 Test Item Value Reference Range Interpretation Comments CHOLESTEROL (test code = 2210) 186 MG/DL TRIGLYCERIDES (test code = 2232) 88 MG/DL HDL CHOLESTEROL (test code = 2220) 80 MG/DL CALC LDL CHOL (test code = 2237) 88 MG/DL RISK RATIO LDL/HDL (test code = 1.10 RATIO 2238) COMPREHENSIVE METABOLIC [id number] 00:00:00 Test Item Value Reference Range Interpretation Comments GLUCOSE (test code = 2217) 300 MG/DL BUN (test code = 2208) 19 MG/DL CREATININE (test code = 2214) 4.15 MG/DL eGFR AMER. (test code 13 ML/MIN/1.73 = 56363) eGFR NON- AMER. (test 11 ML/MIN/1.73 code = 30504) CALC BUN/CREAT (test code = 5 RATIO 2235) SODIUM (test code = 2231) 136 MEQ/L POTASSIUM (test code = 2228) 4.0 MEQ/L CHLORIDE (test code = 2215) 97 MEQ/L CARBON DIOXIDE (test code = 28 MEQ/L 2205) CALCIUM (test code = 2209) 9.4 MG/DL PROTEIN, TOTAL (test code = 7.3 G/DL 2228) ALBUMIN (test code = 2201) 4.2 G/DL CALC GLOBULIN (test code = 3.1 G/DL 0) CALC A/G RATIO (test code = 1.4 RATIO 2234) BILIRUBIN, TOTAL (test code = 0.4 MG/DL 2207) ALKALINE PHOSPHATASE (test 153 U/L code = 2204) AST (test code = 2218) 21 U/L ALT (test code = 2219) 13 U/L COMPREHENSIVE METABOLIC [id number] 00:00:00 Test Item Value Reference Range Interpretation Comments GLUCOSE (test code = 2217) 300 MG/DL BUN (test code = 2208) 19 MG/DL CREATININE (test code = 2214) 4.15 MG/DL eGFR AMER. (test code 13 ML/MIN/1.73 = 06651) eGFR NON- AMER. (test 11 ML/MIN/1.73 code = 08399) CALC BUN/CREAT (test code = 5 RATIO 2235) SODIUM (test code = 2231) 136 MEQ/L POTASSIUM (test code = 2228) 4.0 MEQ/L CHLORIDE (test code = 2215) 97 MEQ/L CARBON DIOXIDE (test code = 28 MEQ/L 2205) CALCIUM (test code = 2209) 9.4 MG/DL PROTEIN, TOTAL (test code = 7.3 G/DL 2228) ALBUMIN (test code = 2201) 4.2 G/DL CALC GLOBULIN (test code = 3.1 G/DL 2240) CALC A/G RATIO (test code = 1.4 RATIO 4) BILIRUBIN, TOTAL (test code = 0.4 MG/DL 2206) ALKALINE PHOSPHATASE (test 153 U/L code = 2204) AST (test code = 2218) 21 U/L ALT (test code = 2219) 13 U/L [id number] 00:00:00 Test Item Value Reference Range Interpretation Comments TSH, THIRD GENERATION (test code 0.661 UIU/ML = 2821) [id number] 00:00:00 Test Item Value Reference Range Interpretation Comments TSH, THIRD GENERATION (test code 0.661 UIU/ML = 2821) [id number] 00:00:00 Test Item Value Reference Range Interpretation Comments TSH, THIRD GENERATION (test code 0.661 UIU/ML = 2821) CBC W/AUTO [id number] 00:00:00 Test Item Value Reference Range Interpretation Comments WBC (test code = 1001) 6.5 K/UL RBC (test code = 1002) 4.03 M/UL HEMOGLOBIN (test code = 1003) 11.2 G/DL HEMATOCRIT (test code = 1004) 35.1 % MCV (test code = 1005) 87.1 fL MCH (test code = 1006) 27.8 PG MCHC (test code = 1007) 31.9 G/DL RDW (test code = 1038) 11.7 % NEUTROPHILS (test code = 1008) 60.5 % LYMPHOCYTES (test code = 1010) 28.5 % MONOCYTES (test code = 1011) 6.6 % EOSINOPHILS (test code = 1012) 3.2 % BASOPHILS (test code = 1013) 1.2 % PLATELET COUNT (test code = 1015) 166 K/UL CBC W/AUTO [id number] 00:00:00 Test Item Value Reference Range Interpretation Comments WBC (test code = 1001) 6.5 K/UL RBC (test code = 1002) 4.03 M/UL HEMOGLOBIN (test code = 1003) 11.2 G/DL HEMATOCRIT (test code = 1004) 35.1 % MCV (test code = 1005) 87.1 fL MCH (test code = 1006) 27.8 PG MCHC (test code = 1007) 31.9 G/DL RDW (test code = 1038) 11.7 % NEUTROPHILS (test code = 1008) 60.5 % LYMPHOCYTES (test code = 1010) 28.5 % MONOCYTES (test code = 1011) 6.6 % EOSINOPHILS (test code = 1012) 3.2 % BASOPHILS (test code = 1013) 1.2 % PLATELET COUNT (test code = 1015) 166 K/UL HEMOGLOBIN [id number] 00:00:00 Test Item Value Reference Range Interpretation Comments HEMOGLOBIN A1c (test code = 15473) 8.5 % HEMOGLOBIN [id number] 00:00:00 Test Item Value Reference Range Interpretation Comments HEMOGLOBIN A1c (test code = 35216) 8.5 % LIPID [id number] 00:00:00 Test Item Value Reference Range Interpretation Comments CHOLESTEROL (test code = 2210) 186 MG/DL TRIGLYCERIDES (test code = 2232) 88 MG/DL HDL CHOLESTEROL (test code = 2220) 80 MG/DL CALC LDL CHOL (test code = 2237) 88 MG/DL RISK RATIO LDL/HDL (test code = 1.10 RATIO 2238) COMPREHENSIVE METABOLIC [id number] 00:00:00 Test Item Value Reference Range Interpretation Comments GLUCOSE (test code = 2217) 300 MG/DL BUN (test code = 2208) 19 MG/DL CREATININE (test code = 2214) 4.15 MG/DL eGFR AMER. (test code 13 ML/MIN/1.73 = 34352) eGFR NON- AMER. (test 11 ML/MIN/1.73 code = 49729) CALC BUN/CREAT (test code = 5 RATIO 2235) SODIUM (test code = 2231) 136 MEQ/L POTASSIUM (test code = 2228) 4.0 MEQ/L CHLORIDE (test code = 2215) 97 MEQ/L CARBON DIOXIDE (test code = 28 MEQ/L 2205) CALCIUM (test code = 2209) 9.4 MG/DL PROTEIN, TOTAL (test code = 7.3 G/DL 2228) ALBUMIN (test code = 2201) 4.2 G/DL CALC GLOBULIN (test code = 3.1 G/DL 2240) CALC A/G RATIO (test code = 1.4 RATIO 4) BILIRUBIN, TOTAL (test code = 0.4 MG/DL 2206) ALKALINE PHOSPHATASE (test 153 U/L code = 2204) AST (test code = 2218) 21 U/L ALT (test code = 2219) 13 U/L [id number] 00:00:00 Test Item Value Reference Range Interpretation Comments TSH, THIRD GENERATION (test code 0.661 UIU/ML = 2821) [id number] 00:00:00 Test Item Value Reference Range Interpretation Comments TSH, THIRD GENERATION (test code 0.661 UIU/ML = 2821) CBC W/AUTO [id number] 00:00:00 Test Item Value Reference Range Interpretation Comments WBC (test code = 1001) 6.5 K/UL RBC (test code = 1002) 4.03 M/UL HEMOGLOBIN (test code = 1003) 11.2 G/DL HEMATOCRIT (test code = 1004) 35.1 % MCV (test code = 1005) 87.1 fL MCH (test code = 1006) 27.8 PG MCHC (test code = 1007) 31.9 G/DL RDW (test code = 1038) 11.7 % NEUTROPHILS (test code = 1008) 60.5 % LYMPHOCYTES (test code = 1010) 28.5 % MONOCYTES (test code = 1011) 6.6 % EOSINOPHILS (test code = 1012) 3.2 % BASOPHILS (test code = 1013) 1.2 % PLATELET COUNT (test code = 1015) 166 K/UL CBC W/AUTO [id number] 00:00:00 Test Item Value Reference Range Interpretation Comments WBC (test code = 1001) 6.5 K/UL RBC (test code = 1002) 4.03 M/UL HEMOGLOBIN (test code = 1003) 11.2 G/DL HEMATOCRIT (test code = 1004) 35.1 % MCV (test code = 1005) 87.1 fL MCH (test code = 1006) 27.8 PG MCHC (test code = 1007) 31.9 G/DL RDW (test code = 1038) 11.7 % NEUTROPHILS (test code = 1008) 60.5 % LYMPHOCYTES (test code = 1010) 28.5 % MONOCYTES (test code = 1011) 6.6 % EOSINOPHILS (test code = 1012) 3.2 % BASOPHILS (test code = 1013) 1.2 % PLATELET COUNT (test code = 1015) 166 K/UL CBC W/AUTO [id number] 00:00:00 Test Item Value Reference Range Interpretation Comments WBC (test code = 1001) 6.5 K/UL RBC (test code = 1002) 4.03 M/UL HEMOGLOBIN (test code = 1003) 11.2 G/DL HEMATOCRIT (test code = 1004) 35.1 % MCV (test code = 1005) 87.1 fL MCH (test code = 1006) 27.8 PG MCHC (test code = 1007) 31.9 G/DL RDW (test code = 1038) 11.7 % NEUTROPHILS (test code = 1008) 60.5 % LYMPHOCYTES (test code = 1010) 28.5 % MONOCYTES (test code = 1011) 6.6 % EOSINOPHILS (test code = 1012) 3.2 % BASOPHILS (test code = 1013) 1.2 % PLATELET COUNT (test code = 1015) 166 K/UL HEMOGLOBIN [id number] 00:00:00 Test Item Value Reference Range Interpretation Comments HEMOGLOBIN A1c (test code = 84984) 8.5 % HEMOGLOBIN [id number] 00:00:00 Test Item Value Reference Range Interpretation Comments HEMOGLOBIN A1c (test code = 23368) 8.5 % HEMOGLOBIN [id number] 00:00:00 Test Item Value Reference Range Interpretation Comments HEMOGLOBIN A1c (test code = 69274) 8.5 % LIPID [id number] 00:00:00 Test Item Value Reference Range Interpretation Comments CHOLESTEROL (test code = 2210) 186 MG/DL TRIGLYCERIDES (test code = 2232) 88 MG/DL HDL CHOLESTEROL (test code = 2220) 80 MG/DL CALC LDL CHOL (test code = 2237) 88 MG/DL RISK RATIO LDL/HDL (test code = 1.10 RATIO 2238) LIPID [id number] 00:00:00 Test Item Value Reference Range Interpretation Comments CHOLESTEROL (test code = 2210) 186 MG/DL TRIGLYCERIDES (test code = 2232) 88 MG/DL HDL CHOLESTEROL (test code = 2220) 80 MG/DL CALC LDL CHOL (test code = 2237) 88 MG/DL RISK RATIO LDL/HDL (test code = 1.10 RATIO 2238) COMPREHENSIVE METABOLIC [id number] 00:00:00 Test Item Value Reference Range Interpretation Comments GLUCOSE (test code = 2217) 300 MG/DL BUN (test code = 2208) 19 MG/DL CREATININE (test code = 2214) 4.15 MG/DL eGFR AMER. (test code 13 ML/MIN/1.73 = 58371) eGFR NON- AMER. (test 11 ML/MIN/1.73 code = 69235) CALC BUN/CREAT (test code = 5 RATIO 2235) SODIUM (test code = 2231) 136 MEQ/L POTASSIUM (test code = 2228) 4.0 MEQ/L CHLORIDE (test code = 2215) 97 MEQ/L CARBON DIOXIDE (test code = 28 MEQ/L 2205) CALCIUM (test code = 2209) 9.4 MG/DL PROTEIN, TOTAL (test code = 7.3 G/DL 2228) ALBUMIN (test code = 2201) 4.2 G/DL CALC GLOBULIN (test code = 3.1 G/DL 2239) CALC A/G RATIO (test code = 1.4 RATIO 2234) BILIRUBIN, TOTAL (test code = 0.4 MG/DL 2207) ALKALINE PHOSPHATASE (test 153 U/L code = 2204) AST (test code = 2218) 21 U/L ALT (test code = 2219) 13 U/L COMPREHENSIVE METABOLIC [id number] 00:00:00 Test Item Value Reference Range Interpretation Comments GLUCOSE (test code = 2217) 300 MG/DL BUN (test code = 2208) 19 MG/DL CREATININE (test code = 2214) 4.15 MG/DL eGFR AMER. (test code 13 ML/MIN/1.73 = 88358) eGFR NON- AMER. (test 11 ML/MIN/1.73 code = 06785) CALC BUN/CREAT (test code = 5 RATIO 2235) SODIUM (test code = 2231) 136 MEQ/L POTASSIUM (test code = 2228) 4.0 MEQ/L CHLORIDE (test code = 2215) 97 MEQ/L CARBON DIOXIDE (test code = 28 MEQ/L 220) CALCIUM (test code = 2209) 9.4 MG/DL PROTEIN, TOTAL (test code = 7.3 G/DL 2228) ALBUMIN (test code = 2201) 4.2 G/DL CALC GLOBULIN (test code = 3.1 G/DL 2240) CALC A/G RATIO (test code = 1.4 RATIO 2234) BILIRUBIN, TOTAL (test code = 0.4 MG/DL 2206) ALKALINE PHOSPHATASE (test 153 U/L code = 2204) AST (test code = 2218) 21 U/L ALT (test code = 2219) 13 U/L [id number] 00:00:00 Test Item Value Reference Range Interpretation Comments TSH, THIRD GENERATION (test code 0.661 UIU/ML = 2821) [id number] 00:00:00 Test Item Value Reference Range Interpretation Comments TSH, THIRD GENERATION (test code 0.661 UIU/ML = 2821) [id number] 00:00:00 Test Item Value Reference Range Interpretation Comments TSH, THIRD GENERATION (test code 0.661 UIU/ML = 2821) CBC W/AUTO [id number] 00:00:00 Test Item Value Reference Range Interpretation Comments WBC (test code = 1001) 6.5 K/UL RBC (test code = 1002) 4.03 M/UL HEMOGLOBIN (test code = 1003) 11.2 G/DL HEMATOCRIT (test code = 1004) 35.1 % MCV (test code = 1005) 87.1 fL MCH (test code = 1006) 27.8 PG MCHC (test code = 1007) 31.9 G/DL RDW (test code = 1038) 11.7 % NEUTROPHILS (test code = 1008) 60.5 % LYMPHOCYTES (test code = 1010) 28.5 % MONOCYTES (test code = 1011) 6.6 % EOSINOPHILS (test code = 1012) 3.2 % BASOPHILS (test code = 1013) 1.2 % PLATELET COUNT (test code = 1015) 166 K/UL CBC W/AUTO [id number] 00:00:00 Test Item Value Reference Range Interpretation Comments WBC (test code = 1001) 6.5 K/UL RBC (test code = 1002) 4.03 M/UL HEMOGLOBIN (test code = 1003) 11.2 G/DL HEMATOCRIT (test code = 1004) 35.1 % MCV (test code = 1005) 87.1 fL MCH (test code = 1006) 27.8 PG MCHC (test code = 1007) 31.9 G/DL RDW (test code = 1038) 11.7 % NEUTROPHILS (test code = 1008) 60.5 % LYMPHOCYTES (test code = 1010) 28.5 % MONOCYTES (test code = 1011) 6.6 % EOSINOPHILS (test code = 1012) 3.2 % BASOPHILS (test code = 1013) 1.2 % PLATELET COUNT (test code = 1015) 166 K/UL CBC W/AUTO [id number] 00:00:00 Test Item Value Reference Range Interpretation Comments WBC (test code = 1001) 6.5 K/UL RBC (test code = 1002) 4.03 M/UL HEMOGLOBIN (test code = 1003) 11.2 G/DL HEMATOCRIT (test code = 1004) 35.1 % MCV (test code = 1005) 87.1 fL MCH (test code = 1006) 27.8 PG MCHC (test code = 1007) 31.9 G/DL RDW (test code = 1038) 11.7 % NEUTROPHILS (test code = 1008) 60.5 % LYMPHOCYTES (test code = 1010) 28.5 % MONOCYTES (test code = 1011) 6.6 % EOSINOPHILS (test code = 1012) 3.2 % BASOPHILS (test code = 1013) 1.2 % PLATELET COUNT (test code = 1015) 166 K/UL HEMOGLOBIN [id number] 00:00:00 Test Item Value Reference Range Interpretation Comments HEMOGLOBIN A1c (test code = 69340) 8.5 % HEMOGLOBIN [id number] 00:00:00 Test Item Value Reference Range Interpretation Comments HEMOGLOBIN A1c (test code = 89848) 8.5 % HEMOGLOBIN [id number] 00:00:00 Test Item Value Reference Range Interpretation Comments HEMOGLOBIN A1c (test code = 01915) 8.5 % [id number] 00:00:00 Test Item Value Reference Range Interpretation Comments TSH, THIRD GENERATION (test code 0.749 UIU/ML = 2821) [id number] 00:00:00 Test Item Value Reference Range Interpretation Comments TSH, THIRD GENERATION (test code 0.749 UIU/ML = 2821) [id number] 00:00:00 Test Item Value Reference Range Interpretation Comments TSH, THIRD GENERATION (test code 0.749 UIU/ML = 2821) HEMOGLOBIN [id number] 00:00:00 Test Item Value Reference Range Interpretation Comments HEMOGLOBIN A1c (test code = 88250) 8.2 % HEMOGLOBIN [id number] 00:00:00 Test Item Value Reference Range Interpretation Comments HEMOGLOBIN A1c (test code = 75117) 8.2 % COMPREHENSIVE METABOLIC [id number] 00:00:00 Test Item Value Reference Range Interpretation Comments GLUCOSE (test code = 2217) 154 MG/DL BUN (test code = 2208) 44 MG/DL CREATININE (test code = 2214) 5.28 MG/DL eGFR AMER. (test code = 9 ML/MIN/1.73 95076) eGFR NON- AMER. (test 8 ML/MIN/1.73 code = 56474) CALC BUN/CREAT (test code = 8 RATIO 2235) SODIUM (test code = 2231) 141 MEQ/L POTASSIUM (test code = 2228) 4.8 MEQ/L CHLORIDE (test code = 2215) 99 MEQ/L CARBON DIOXIDE (test code = 23 MEQ/L 2205) CALCIUM (test code = 2209) 9.0 MG/DL PROTEIN, TOTAL (test code = 7.4 G/DL 2228) ALBUMIN (test code = 2201) 4.2 G/DL CALC GLOBULIN (test code = 3.2 G/DL 2239) CALC A/G RATIO (test code = 1.3 RATIO 4) BILIRUBIN, TOTAL (test code = 0.2 MG/DL 2206) ALKALINE PHOSPHATASE (test code 145 U/L = 2204) AST (test code = 2218) 24 U/L ALT (test code = 2219) 16 U/L [id number] 00:00:00 Test Item Value Reference Range Interpretation Comments TSH, THIRD GENERATION (test code 0.749 UIU/ML = 2821) [id number] 00:00:00 Test Item Value Reference Range Interpretation Comments TSH, THIRD GENERATION (test code 0.749 UIU/ML = 2821) HEMOGLOBIN [id number] 00:00:00 Test Item Value Reference Range Interpretation Comments HEMOGLOBIN A1c (test code = 20899) 8.2 % HEMOGLOBIN [id number] 00:00:00 Test Item Value Reference Range Interpretation Comments HEMOGLOBIN A1c (test code = 55446) 8.2 % HEMOGLOBIN [id number] 00:00:00 Test Item Value Reference Range Interpretation Comments HEMOGLOBIN A1c (test code = 57082) 8.2 % COMPREHENSIVE METABOLIC [id number] 00:00:00 Test Item Value Reference Range Interpretation Comments GLUCOSE (test code = 2217) 154 MG/DL BUN (test code = 2208) 44 MG/DL CREATININE (test code = 2214) 5.28 MG/DL eGFR AMER. (test code = 9 ML/MIN/1.73 34259) eGFR NON- AMER. (test 8 ML/MIN/1.73 code = 87907) CALC BUN/CREAT (test code = 8 RATIO 2235) SODIUM (test code = 2231) 141 MEQ/L POTASSIUM (test code = 2228) 4.8 MEQ/L CHLORIDE (test code = 2215) 99 MEQ/L CARBON DIOXIDE (test code = 23 MEQ/L 2205) CALCIUM (test code = 2209) 9.0 MG/DL PROTEIN, TOTAL (test code = 7.4 G/DL 2228) ALBUMIN (test code = 2201) 4.2 G/DL CALC GLOBULIN (test code = 3.2 G/DL 2240) CALC A/G RATIO (test code = 1.3 RATIO 2234) BILIRUBIN, TOTAL (test code = 0.2 MG/DL 2206) ALKALINE PHOSPHATASE (test code 145 U/L = 2204) AST (test code = 2218) 24 U/L ALT (test code = 2219) 16 U/L COMPREHENSIVE METABOLIC [id number] 00:00:00 Test Item Value Reference Range Interpretation Comments GLUCOSE (test code = 2217) 154 MG/DL BUN (test code = 2208) 44 MG/DL CREATININE (test code = 2214) 5.28 MG/DL eGFR AMER. (test code = 9 ML/MIN/1.73 91671) eGFR NON- AMER. (test 8 ML/MIN/1.73 code = 25624) CALC BUN/CREAT (test code = 8 RATIO 2235) SODIUM (test code = 2231) 141 MEQ/L POTASSIUM (test code = 2228) 4.8 MEQ/L CHLORIDE (test code = 2215) 99 MEQ/L CARBON DIOXIDE (test code = 23 MEQ/L 2206) CALCIUM (test code = 2209) 9.0 MG/DL PROTEIN, TOTAL (test code = 7.4 G/DL 2228) ALBUMIN (test code = 2201) 4.2 G/DL CALC GLOBULIN (test code = 3.2 G/DL 2240) CALC A/G RATIO (test code = 1.3 RATIO 2234) BILIRUBIN, TOTAL (test code = 0.2 MG/DL 7) ALKALINE PHOSPHATASE (test code 145 U/L = 2204) AST (test code = 2218) 24 U/L ALT (test code = 2219) 16 U/L [id number] 00:00:00 Test Item Value Reference Range Interpretation Comments TSH, THIRD GENERATION (test code 0.749 UIU/ML = 2821) [id number] 00:00:00 Test Item Value Reference Range Interpretation Comments TSH, THIRD GENERATION (test code 0.749 UIU/ML = 2821) [id number] 00:00:00 Test Item Value Reference Range Interpretation Comments TSH, THIRD GENERATION (test code 0.749 UIU/ML = 2821) HEMOGLOBIN [id number] 00:00:00 Test Item Value Reference Range Interpretation Comments HEMOGLOBIN A1c (test code = 27654) 8.2 % HEMOGLOBIN [id number] 00:00:00 Test Item Value Reference Range Interpretation Comments HEMOGLOBIN A1c (test code = 04032) 8.2 % HEMOGLOBIN [id number] 00:00:00 Test Item Value Reference Range Interpretation Comments HEMOGLOBIN A1c (test code = 36679) 8.2 % COMPREHENSIVE METABOLIC [id number] 00:00:00 Test Item Value Reference Range Interpretation Comments GLUCOSE (test code = 2217) 154 MG/DL BUN (test code = 2208) 44 MG/DL CREATININE (test code = 2214) 5.28 MG/DL eGFR AMER. (test code = 9 ML/MIN/1.73 83593) eGFR NON- AMER. (test 8 ML/MIN/1.73 code = 77359) CALC BUN/CREAT (test code = 8 RATIO 2235) SODIUM (test code = 2231) 141 MEQ/L POTASSIUM (test code = 2228) 4.8 MEQ/L CHLORIDE (test code = 2215) 99 MEQ/L CARBON DIOXIDE (test code = 23 MEQ/L 2205) CALCIUM (test code = 2209) 9.0 MG/DL PROTEIN, TOTAL (test code = 7.4 G/DL 2228) ALBUMIN (test code = 2201) 4.2 G/DL CALC GLOBULIN (test code = 3.2 G/DL 0) CALC A/G RATIO (test code = 1.3 RATIO 2234) BILIRUBIN, TOTAL (test code = 0.2 MG/DL 2206) ALKALINE PHOSPHATASE (test code 145 U/L = 2204) AST (test code = 2218) 24 U/L ALT (test code = 2219) 16 U/L COMPREHENSIVE METABOLIC [id number] 00:00:00 Test Item Value Reference Range Interpretation Comments GLUCOSE (test code = 2217) 154 MG/DL BUN (test code = 2208) 44 MG/DL CREATININE (test code = 2214) 5.28 MG/DL eGFR AMER. (test code = 9 ML/MIN/1.73 80370) eGFR NON- AMER. (test 8 ML/MIN/1.73 code = 37559) CALC BUN/CREAT (test code = 8 RATIO 2235) SODIUM (test code = 2231) 141 MEQ/L POTASSIUM (test code = 2228) 4.8 MEQ/L CHLORIDE (test code = 2215) 99 MEQ/L CARBON DIOXIDE (test code = 23 MEQ/L 220) CALCIUM (test code = 2209) 9.0 MG/DL PROTEIN, TOTAL (test code = 7.4 G/DL 2229) ALBUMIN (test code = 2201) 4.2 G/DL CALC GLOBULIN (test code = 3.2 G/DL 2240) CALC A/G RATIO (test code = 1.3 RATIO 2234) BILIRUBIN, TOTAL (test code = 0.2 MG/DL 2206) ALKALINE PHOSPHATASE (test code 145 U/L = 2203) AST (test code = 2218) 24 U/L ALT (test code = 2219) 16 U/L COMPREHENSIVE METABOLIC [id number] 00:00:00 Test Item Value Reference Range Interpretation Comments GLUCOSE (test code = 2217) 229 MG/DL BUN (test code = 2208) 30 MG/DL CREATININE (test code = 2214) 4.17 MG/DL eGFR AMER. (test code 13 ML/MIN/1.73 = 92861) eGFR NON- AMER. (test 11 ML/MIN/1.73 code = 06283) CALC BUN/CREAT (test code = 7 RATIO 2235) SODIUM (test code = 2231) 140 MEQ/L POTASSIUM (test code = 2228) 4.9 MEQ/L CHLORIDE (test code = 2215) 96 MEQ/L CARBON DIOXIDE (test code = 28 MEQ/L 2205) CALCIUM (test code = 2209) 9.4 MG/DL PROTEIN, TOTAL (test code = 7.6 G/DL 2229) ALBUMIN (test code = 2201) 4.2 G/DL CALC GLOBULIN (test code = 3.4 G/DL 2240) CALC A/G RATIO (test code = 1.2 RATIO 2234) BILIRUBIN, TOTAL (test code = 0.3 MG/DL 2206) ALKALINE PHOSPHATASE (test 140 U/L code = 2204) AST (test code = 2218) 22 U/L ALT (test code = 2219) 10 U/L COMPREHENSIVE METABOLIC [id number] 00:00:00 Test Item Value Reference Range Interpretation Comments GLUCOSE (test code = 2217) 229 MG/DL BUN (test code = 2208) 30 MG/DL CREATININE (test code = 2214) 4.17 MG/DL eGFR AMER. (test code 13 ML/MIN/1.73 = 15443) eGFR NON- AMER. (test 11 ML/MIN/1.73 code = 28992) CALC BUN/CREAT (test code = 7 RATIO 2235) SODIUM (test code = 2231) 140 MEQ/L POTASSIUM (test code = 2228) 4.9 MEQ/L CHLORIDE (test code = 2215) 96 MEQ/L CARBON DIOXIDE (test code = 28 MEQ/L 2205) CALCIUM (test code = 2209) 9.4 MG/DL PROTEIN, TOTAL (test code = 7.6 G/DL 2228) ALBUMIN (test code = 2201) 4.2 G/DL CALC GLOBULIN (test code = 3.4 G/DL 224) CALC A/G RATIO (test code = 1.2 RATIO 2233) BILIRUBIN, TOTAL (test code = 0.3 MG/DL 2206) ALKALINE PHOSPHATASE (test 140 U/L code = 2204) AST (test code = 2218) 22 U/L ALT (test code = 2219) 10 U/L CBC W/AUTO [id number] 00:00:00 Test Item Value Reference Range Interpretation Comments WBC (test code = 1001) 8.6 K/UL RBC (test code = 1002) 4.56 M/UL HEMOGLOBIN (test code = 1003) 12.6 G/DL HEMATOCRIT (test code = 1004) 39.8 % MCV (test code = 1005) 87.3 fL MCH (test code = 1006) 27.6 PG MCHC (test code = 1007) 31.7 G/DL RDW (test code = 1038) 13.4 % NEUTROPHILS (test code = 1008) 59.3 % LYMPHOCYTES (test code = 1010) 29.6 % MONOCYTES (test code = 1011) 6.0 % EOSINOPHILS (test code = 1012) 4.2 % BASOPHILS (test code = 1013) 0.9 % PLATELET COUNT (test code = 1015) 187 K/UL CBC W/AUTO [id number] 00:00:00 Test Item Value Reference Range Interpretation Comments WBC (test code = 1001) 8.6 K/UL RBC (test code = 1002) 4.56 M/UL HEMOGLOBIN (test code = 1003) 12.6 G/DL HEMATOCRIT (test code = 1004) 39.8 % MCV (test code = 1005) 87.3 fL MCH (test code = 1006) 27.6 PG MCHC (test code = 1007) 31.7 G/DL RDW (test code = 1038) 13.4 % NEUTROPHILS (test code = 1008) 59.3 % LYMPHOCYTES (test code = 1010) 29.6 % MONOCYTES (test code = 1011) 6.0 % EOSINOPHILS (test code = 1012) 4.2 % BASOPHILS (test code = 1013) 0.9 % PLATELET COUNT (test code = 1015) 187 K/UL HEMOGLOBIN [id number] 00:00:00 Test Item Value Reference Range Interpretation Comments HEMOGLOBIN A1c (test code = 32861) 8.7 % HEMOGLOBIN [id number] 00:00:00 Test Item Value Reference Range Interpretation Comments HEMOGLOBIN A1c (test code = 78353) 8.7 % COMPREHENSIVE METABOLIC [id number] 00:00:00 Test Item Value Reference Range Interpretation Comments GLUCOSE (test code = 2217) 229 MG/DL BUN (test code = 2208) 30 MG/DL CREATININE (test code = 2214) 4.17 MG/DL eGFR AMER. (test code 13 ML/MIN/1.73 = 41903) eGFR NON- AMER. (test 11 ML/MIN/1.73 code = 12547) CALC BUN/CREAT (test code = 7 RATIO 2234) SODIUM (test code = 2231) 140 MEQ/L POTASSIUM (test code = 2228) 4.9 MEQ/L CHLORIDE (test code = 2215) 96 MEQ/L CARBON DIOXIDE (test code = 28 MEQ/L 2205) CALCIUM (test code = 2209) 9.4 MG/DL PROTEIN, TOTAL (test code = 7.6 G/DL 2228) ALBUMIN (test code = 2201) 4.2 G/DL CALC GLOBULIN (test code = 3.4 G/DL 2239) CALC A/G RATIO (test code = 1.2 RATIO 2233) BILIRUBIN, TOTAL (test code = 0.3 MG/DL 2206) ALKALINE PHOSPHATASE (test 140 U/L code = 2204) AST (test code = 2218) 22 U/L ALT (test code = 2219) 10 U/L CBC W/AUTO [id number] 00:00:00 Test Item Value Reference Range Interpretation Comments WBC (test code = 1001) 8.6 K/UL RBC (test code = 1002) 4.56 M/UL HEMOGLOBIN (test code = 1003) 12.6 G/DL HEMATOCRIT (test code = 1004) 39.8 % MCV (test code = 1005) 87.3 fL MCH (test code = 1006) 27.6 PG MCHC (test code = 1007) 31.7 G/DL RDW (test code = 1038) 13.4 % NEUTROPHILS (test code = 1008) 59.3 % LYMPHOCYTES (test code = 1010) 29.6 % MONOCYTES (test code = 1011) 6.0 % EOSINOPHILS (test code = 1012) 4.2 % BASOPHILS (test code = 1013) 0.9 % PLATELET COUNT (test code = 1015) 187 K/UL CBC W/AUTO [id number] 00:00:00 Test Item Value Reference Range Interpretation Comments WBC (test code = 1001) 8.6 K/UL RBC (test code = 1002) 4.56 M/UL HEMOGLOBIN (test code = 1003) 12.6 G/DL HEMATOCRIT (test code = 1004) 39.8 % MCV (test code = 1005) 87.3 fL MCH (test code = 1006) 27.6 PG MCHC (test code = 1007) 31.7 G/DL RDW (test code = 1038) 13.4 % NEUTROPHILS (test code = 1008) 59.3 % LYMPHOCYTES (test code = 1010) 29.6 % MONOCYTES (test code = 1011) 6.0 % EOSINOPHILS (test code = 1012) 4.2 % BASOPHILS (test code = 1013) 0.9 % PLATELET COUNT (test code = 1015) 187 K/UL CBC W/AUTO [id number] 00:00:00 Test Item Value Reference Range Interpretation Comments WBC (test code = 1001) 8.6 K/UL RBC (test code = 1002) 4.56 M/UL HEMOGLOBIN (test code = 1003) 12.6 G/DL HEMATOCRIT (test code = 1004) 39.8 % MCV (test code = 1005) 87.3 fL MCH (test code = 1006) 27.6 PG MCHC (test code = 1007) 31.7 G/DL RDW (test code = 1038) 13.4 % NEUTROPHILS (test code = 1008) 59.3 % LYMPHOCYTES (test code = 1010) 29.6 % MONOCYTES (test code = 1011) 6.0 % EOSINOPHILS (test code = 1012) 4.2 % BASOPHILS (test code = 1013) 0.9 % PLATELET COUNT (test code = 1015) 187 K/UL HEMOGLOBIN [id number] 00:00:00 Test Item Value Reference Range Interpretation Comments HEMOGLOBIN A1c (test code = 68269) 8.7 % HEMOGLOBIN [id number] 00:00:00 Test Item Value Reference Range Interpretation Comments HEMOGLOBIN A1c (test code = 70841) 8.7 % HEMOGLOBIN [id number] 00:00:00 Test Item Value Reference Range Interpretation Comments HEMOGLOBIN A1c (test code = 89463) 8.7 % COMPREHENSIVE METABOLIC [id number] 00:00:00 Test Item Value Reference Range Interpretation Comments GLUCOSE (test code = 2217) 229 MG/DL BUN (test code = 2208) 30 MG/DL CREATININE (test code = 2214) 4.17 MG/DL eGFR AMER. (test code 13 ML/MIN/1.73 = 59029) eGFR NON- AMER. (test 11 ML/MIN/1.73 code = 64818) CALC BUN/CREAT (test code = 7 RATIO 2235) SODIUM (test code = 2231) 140 MEQ/L POTASSIUM (test code = 2228) 4.9 MEQ/L CHLORIDE (test code = 2215) 96 MEQ/L CARBON DIOXIDE (test code = 28 MEQ/L 2205) CALCIUM (test code = 2209) 9.4 MG/DL PROTEIN, TOTAL (test code = 7.6 G/DL 2228) ALBUMIN (test code = 2201) 4.2 G/DL CALC GLOBULIN (test code = 3.4 G/DL 2239) CALC A/G RATIO (test code = 1.2 RATIO 2234) BILIRUBIN, TOTAL (test code = 0.3 MG/DL 2206) ALKALINE PHOSPHATASE (test 140 U/L code = 2204) AST (test code = 2218) 22 U/L ALT (test code = 2219) 10 U/L COMPREHENSIVE METABOLIC [id number] 00:00:00 Test Item Value Reference Range Interpretation Comments GLUCOSE (test code = 2217) 229 MG/DL BUN (test code = 2208) 30 MG/DL CREATININE (test code = 2214) 4.17 MG/DL eGFR AMER. (test code 13 ML/MIN/1.73 = 13458) eGFR NON- AMER. (test 11 ML/MIN/1.73 code = 52283) CALC BUN/CREAT (test code = 7 RATIO 2235) SODIUM (test code = 2231) 140 MEQ/L POTASSIUM (test code = 2228) 4.9 MEQ/L CHLORIDE (test code = 2215) 96 MEQ/L CARBON DIOXIDE (test code = 28 MEQ/L 2206) CALCIUM (test code = 2209) 9.4 MG/DL PROTEIN, TOTAL (test code = 7.6 G/DL 222) ALBUMIN (test code = 2201) 4.2 G/DL CALC GLOBULIN (test code = 3.4 G/DL 2240) CALC A/G RATIO (test code = 1.2 RATIO 2234) BILIRUBIN, TOTAL (test code = 0.3 MG/DL 220) ALKALINE PHOSPHATASE (test 140 U/L code = 2204) AST (test code = 2218) 22 U/L ALT (test code = 2219) 10 U/L CBC W/AUTO [id number] 00:00:00 Test Item Value Reference Range Interpretation Comments WBC (test code = 1001) 8.6 K/UL RBC (test code = 1002) 4.56 M/UL HEMOGLOBIN (test code = 1003) 12.6 G/DL HEMATOCRIT (test code = 1004) 39.8 % MCV (test code = 1005) 87.3 fL MCH (test code = 1006) 27.6 PG MCHC (test code = 1007) 31.7 G/DL RDW (test code = 1038) 13.4 % NEUTROPHILS (test code = 1008) 59.3 % LYMPHOCYTES (test code = 1010) 29.6 % MONOCYTES (test code = 1011) 6.0 % EOSINOPHILS (test code = 1012) 4.2 % BASOPHILS (test code = 1013) 0.9 % PLATELET COUNT (test code = 1015) 187 K/UL CBC W/AUTO [id number] 00:00:00 Test Item Value Reference Range Interpretation Comments WBC (test code = 1001) 8.6 K/UL RBC (test code = 1002) 4.56 M/UL HEMOGLOBIN (test code = 1003) 12.6 G/DL HEMATOCRIT (test code = 1004) 39.8 % MCV (test code = 1005) 87.3 fL MCH (test code = 1006) 27.6 PG MCHC (test code = 1007) 31.7 G/DL RDW (test code = 1038) 13.4 % NEUTROPHILS (test code = 1008) 59.3 % LYMPHOCYTES (test code = 1010) 29.6 % MONOCYTES (test code = 1011) 6.0 % EOSINOPHILS (test code = 1012) 4.2 % BASOPHILS (test code = 1013) 0.9 % PLATELET COUNT (test code = 1015) 187 K/UL CBC W/AUTO [id number] 00:00:00 Test Item Value Reference Range Interpretation Comments WBC (test code = 1001) 8.6 K/UL RBC (test code = 1002) 4.56 M/UL HEMOGLOBIN (test code = 1003) 12.6 G/DL HEMATOCRIT (test code = 1004) 39.8 % MCV (test code = 1005) 87.3 fL MCH (test code = 1006) 27.6 PG MCHC (test code = 1007) 31.7 G/DL RDW (test code = 1038) 13.4 % NEUTROPHILS (test code = 1008) 59.3 % LYMPHOCYTES (test code = 1010) 29.6 % MONOCYTES (test code = 1011) 6.0 % EOSINOPHILS (test code = 1012) 4.2 % BASOPHILS (test code = 1013) 0.9 % PLATELET COUNT (test code = 1015) 187 K/UL HEMOGLOBIN [id number] 00:00:00 Test Item Value Reference Range Interpretation Comments HEMOGLOBIN A1c (test code = 04970) 8.7 % HEMOGLOBIN [id number] 00:00:00 Test Item Value Reference Range Interpretation Comments HEMOGLOBIN A1c (test code = 84012) 8.7 % HEMOGLOBIN [id number] 00:00:00 Test Item Value Reference Range Interpretation Comments HEMOGLOBIN A1c (test code = 90973) 8.7 % SURGICAL [id number] 08:04:00 RUN DATE: 07/06/18 [facility] *LIVE* PAGE 1 RUN TIME: 803 Specimen Inquiry RUN USER: INTERFACE --------- ---PATIENT: MARGARITA CORONADO LOC: [facility] U #: [id number] AGE/SX: 58/F ROOM: [id number] DR: Jonathan Reid MD : 56 BED: DIS: STATUS: CALEB VILLEGAS TLOC: SPEC #: [id number] RECD: 07/01/18 STATUS: QUIN #: [id number] JENIFFER: 07/01/[address]: Jonathan Reid MD ENTERED: 07/05/18 SP TYPE: SURG SPEC OTHR DR: No Primary or Family PhysicianORDERED: LEVEL 4 CODES: [id number] - COLON, NOS COPIES TO: No Primary or Family Physician Jonathan Reid MD [address] [address] PROCEDURES: GM LEVEL 4 (Incomplete) TISSUES: 1. [...] CONTINUED ON NEXT PAGE RUN DATE: 07/06/18 [facility] *LIVE* PAGE 2 RUN TIME: 0804 Specimen Inquiry RUN USER: INTERFACE --SPEC #: [id number]: MARGARITA CORONADO #[id number] (Continued) POST-OP DIAGNOSIS Colon polyp PRE-OP DIAGNOSIS Colon screen-- Signed SIGNATURE ON FILE SoniaFrederick DO 07/06/18803 END OF REPORT PTH, INTACT, WITH CALCIUM, PHOSPHORUS, [id number] 00:00:00 Test Item Value Reference Range Interpretation Comments INTACT PTH (test code = 5005) 256 PG/ML CALCIUM (test code = 2209) 9.0 MG/DL PHOSPHORUS (test code = 2227) 4.6 MG/DL CREATININE (test code = 2214) 3.71 MG/DL eGFR AMER. (test code 15 ML/MIN/1.73 = 86661) eGFR NON- AMER. (test 13 ML/MIN/1.73 code = 69757) PTH, INTACT, WITH CALCIUM, PHOSPHORUS, [id number] 00:00:00 Test Item Value Reference Range Interpretation Comments INTACT PTH (test code = 5005) 256 PG/ML CALCIUM (test code = 2209) 9.0 MG/DL PHOSPHORUS (test code = 2227) 4.6 MG/DL CREATININE (test code = 2214) 3.71 MG/DL eGFR AMER. (test code 15 ML/MIN/1.73 = 07343) eGFR NON- AMER. (test 13 ML/MIN/1.73 code = 24281) PTH, INTACT, WITH CALCIUM, PHOSPHORUS, [id number] 00:00:00 Test Item Value Reference Range Interpretation Comments INTACT PTH (test code = 5005) 256 PG/ML CALCIUM (test code = 2209) 9.0 MG/DL PHOSPHORUS (test code = 2227) 4.6 MG/DL CREATININE (test code = 2214) 3.71 MG/DL eGFR AMER. (test code 15 ML/MIN/1.73 = 37091) eGFR NON- AMER. (test 13 ML/MIN/1.73 code = 88899) PTH, INTACT, WITH CALCIUM, PHOSPHORUS, [id number] 00:00:00 Test Item Value Reference Range Interpretation Comments INTACT PTH (test code = 5005) 256 PG/ML CALCIUM (test code = 2209) 9.0 MG/DL PHOSPHORUS (test code = 2227) 4.6 MG/DL CREATININE (test code = 2214) 3.71 MG/DL eGFR AMER. (test code 15 ML/MIN/1.73 = 20241) eGFR NON- AMER. (test 13 ML/MIN/1.73 code = 17853) PTH, INTACT, WITH CALCIUM, PHOSPHORUS, [id number] 00:00:00 Test Item Value Reference Range Interpretation Comments INTACT PTH (test code = 5005) 256 PG/ML CALCIUM (test code = 2209) 9.0 MG/DL PHOSPHORUS (test code = 2227) 4.6 MG/DL CREATININE (test code = 2214) 3.71 MG/DL eGFR AMER. (test code 15 ML/MIN/1.73 = 32072) eGFR NON- AMER. (test 13 ML/MIN/1.73 code = 64616) PTH, INTACT, WITH CALCIUM, PHOSPHORUS, [id number] 00:00:00 Test Item Value Reference Range Interpretation Comments INTACT PTH (test code = 5005) 256 PG/ML CALCIUM (test code = 2209) 9.0 MG/DL PHOSPHORUS (test code = 2227) 4.6 MG/DL CREATININE (test code = 2214) 3.71 MG/DL eGFR AMER. (test code 15 ML/MIN/1.73 = 32982) eGFR NON- AMER. (test 13 ML/MIN/1.73 code = 67809) PTH, INTACT, WITH CALCIUM, PHOSPHORUS, [id number] 00:00:00 Test Item Value Reference Range Interpretation Comments INTACT PTH (test code = 5005) 256 PG/ML CALCIUM (test code = 2209) 9.0 MG/DL PHOSPHORUS (test code = 2227) 4.6 MG/DL CREATININE (test code = 2214) 3.71 MG/DL eGFR AMER. (test code 15 ML/MIN/1.73 = 41239) eGFR NON- AMER. (test 13 ML/MIN/1.73 code = 66259) PTH, INTACT, WITH CALCIUM, PHOSPHORUS, [id number] 00:00:00 Test Item Value Reference Range Interpretation Comments INTACT PTH (test code = 5005) 256 PG/ML CALCIUM (test code = 2209) 9.0 MG/DL PHOSPHORUS (test code = 2227) 4.6 MG/DL CREATININE (test code = 2214) 3.71 MG/DL eGFR AMER. (test code 15 ML/MIN/1.73 = 10245) eGFR NON- AMER. (test 13 ML/MIN/1.73 code = 84634) [id number] 00:00:00 Test Item Value Reference Range Interpretation Comments TSH, THIRD GENERATION (test code 2.370 UIU/ML = 2821) VITAMIN D, 25 [id number] 00:00:00 Test Item Value Reference Range Interpretation Comments VITAMIN D, 25 OH (test code = 4958) 31 NG/ML VITAMIN D, 25 [id number] 00:00:00 Test Item Value Reference Range Interpretation Comments VITAMIN D, 25 OH (test code = 4958) 31 NG/ML HEMOGLOBIN [id number] 00:00:00 Test Item Value Reference Range Interpretation Comments HEMOGLOBIN A1c (test code = 04022) 8.0 % HEMOGLOBIN [id number] 00:00:00 Test Item Value Reference Range Interpretation Comments HEMOGLOBIN A1c (test code = 46686) 8.0 % HEMOGLOBIN [id number] 00:00:00 Test Item Value Reference Range Interpretation Comments HEMOGLOBIN A1c (test code = 69794) 8.0 % LIPID [id number] 00:00:00 Test Item Value Reference Range Interpretation Comments CHOLESTEROL (test code = 2210) 183 MG/DL TRIGLYCERIDES (test code = 2232) 126 MG/DL HDL CHOLESTEROL (test code = 2220) 67 MG/DL CALC LDL CHOL (test code = 2237) 91 MG/DL RISK RATIO LDL/HDL (test code = 1.36 RATIO 2238) LIPID [id number] 00:00:00 Test Item Value Reference Range Interpretation Comments CHOLESTEROL (test code = 2210) 183 MG/DL TRIGLYCERIDES (test code = 2232) 126 MG/DL HDL CHOLESTEROL (test code = 2220) 67 MG/DL CALC LDL CHOL (test code = 2237) 91 MG/DL RISK RATIO LDL/HDL (test code = 1.36 RATIO 2238) COMPREHENSIVE METABOLIC [id number] 00:00:00 Test Item Value Reference Range Interpretation Comments GLUCOSE (test code = 2217) 220 MG/DL BUN (test code = 2208) 55 MG/DL CREATININE (test code = 2214) 3.71 MG/DL eGFR AMER. (test code 15 ML/MIN/1.73 = 39428) eGFR NON- AMER. (test 13 ML/MIN/1.73 code = 19902) CALC BUN/CREAT (test code = 15 RATIO 2235) SODIUM (test code = 2231) 139 MEQ/L POTASSIUM (test code = 2228) 5.7 MEQ/L CHLORIDE (test code = 2215) 102 MEQ/L CARBON DIOXIDE (test code = 24 MEQ/L 2206) CALCIUM (test code = 2209) 9.0 MG/DL PROTEIN, TOTAL (test code = 7.1 G/DL 2228) ALBUMIN (test code = 2201) 3.8 G/DL CALC GLOBULIN (test code = 3.3 G/DL 2240) CALC A/G RATIO (test code = 1.2 RATIO 2234) BILIRUBIN, TOTAL (test code = 0.3 MG/DL 2206) ALKALINE PHOSPHATASE (test 202 U/L code = 2204) AST (test code = 2218) 26 U/L ALT (test code = 2219) 15 U/L COMPREHENSIVE METABOLIC [id number] 00:00:00 Test Item Value Reference Range Interpretation Comments GLUCOSE (test code = 2217) 220 MG/DL BUN (test code = 2208) 55 MG/DL CREATININE (test code = 2214) 3.71 MG/DL eGFR AMER. (test code 15 ML/MIN/1.73 = 88313) eGFR NON- AMER. (test 13 ML/MIN/1.73 code = 73260) CALC BUN/CREAT (test code = 15 RATIO 2235) SODIUM (test code = 2231) 139 MEQ/L POTASSIUM (test code = 2228) 5.7 MEQ/L CHLORIDE (test code = 2215) 102 MEQ/L CARBON DIOXIDE (test code = 24 MEQ/L 2205) CALCIUM (test code = 2209) 9.0 MG/DL PROTEIN, TOTAL (test code = 7.1 G/DL 2228) ALBUMIN (test code = 2201) 3.8 G/DL CALC GLOBULIN (test code = 3.3 G/DL 2239) CALC A/G RATIO (test code = 1.2 RATIO 2233) BILIRUBIN, TOTAL (test code = 0.3 MG/DL 2206) ALKALINE PHOSPHATASE (test 202 U/L code = 2204) AST (test code = 2218) 26 U/L ALT (test code = 2219) 15 U/L MICROALBUMIN/CREATININE, RANDOM AND [id number] 00:00:00 Test Item Value Reference Range Interpretation Comments CREATININE, URINE, CONC. (test 38.3 MG/DL code = 2072) ALBUMIN, URINE, RANDOM (test code 275.7 MG/DL = 71609) CALC ALBUMIN/CREAT, RND (test 7198 MG/G code = 92164) MICROALBUMIN/CREATININE, RANDOM AND [id number] 00:00:00 Test Item Value Reference Range Interpretation Comments CREATININE, URINE, CONC. (test 38.3 MG/DL code = 2072) ALBUMIN, URINE, RANDOM (test code 275.7 MG/DL = 40497) CALC ALBUMIN/CREAT, RND (test 7198 MG/G code = 09491) CBC W/AUTO [id number] 00:00:00 Test Item Value Reference Range Interpretation Comments WBC (test code = 1001) 9.9 K/UL RBC (test code = 1002) 3.85 M/UL HEMOGLOBIN (test code = 1003) 10.5 G/DL HEMATOCRIT (test code = 1004) 31.7 % MCV (test code = 1005) 82.3 fL MCH (test code = 1006) 27.3 PG MCHC (test code = 1007) 33.1 G/DL RDW (test code = 1038) 12.4 % NEUTROPHILS (test code = 1008) 64.2 % LYMPHOCYTES (test code = 1010) 25.1 % MONOCYTES (test code = 1011) 6.9 % EOSINOPHILS (test code = 1012) 3.2 % BASOPHILS (test code = 1013) 0.6 % PLATELET COUNT (test code = 1015) 233 K/UL CBC W/AUTO [id number] 00:00:00 Test Item Value Reference Range Interpretation Comments WBC (test code = 1001) 9.9 K/UL RBC (test code = 1002) 3.85 M/UL HEMOGLOBIN (test code = 1003) 10.5 G/DL HEMATOCRIT (test code = 1004) 31.7 % MCV (test code = 1005) 82.3 fL MCH (test code = 1006) 27.3 PG MCHC (test code = 1007) 33.1 G/DL RDW (test code = 1038) 12.4 % NEUTROPHILS (test code = 1008) 64.2 % LYMPHOCYTES (test code = 1010) 25.1 % MONOCYTES (test code = 1011) 6.9 % EOSINOPHILS (test code = 1012) 3.2 % BASOPHILS (test code = 1013) 0.6 % PLATELET COUNT (test code = 1015) 233 K/UL [id number] 00:00:00 Test Item Value Reference Range Interpretation Comments TSH, THIRD GENERATION (test code 2.370 UIU/ML = 2821) [id number] 00:00:00 Test Item Value Reference Range Interpretation Comments TSH, THIRD GENERATION (test code 2.370 UIU/ML = 2821) VITAMIN D, 25 [id number] 00:00:00 Test Item Value Reference Range Interpretation Comments VITAMIN D, 25 OH (test code = 4958) 31 NG/ML HEMOGLOBIN [id number] 00:00:00 Test Item Value Reference Range Interpretation Comments HEMOGLOBIN A1c (test code = 67437) 8.0 % HEMOGLOBIN [id number] 00:00:00 Test Item Value Reference Range Interpretation Comments HEMOGLOBIN A1c (test code = 33129) 8.0 % LIPID [id number] 00:00:00 Test Item Value Reference Range Interpretation Comments CHOLESTEROL (test code = 2210) 183 MG/DL TRIGLYCERIDES (test code = 2232) 126 MG/DL HDL CHOLESTEROL (test code = 2220) 67 MG/DL CALC LDL CHOL (test code = 2237) 91 MG/DL RISK RATIO LDL/HDL (test code = 1.36 RATIO 2238) COMPREHENSIVE METABOLIC [id number] 00:00:00 Test Item Value Reference Range Interpretation Comments GLUCOSE (test code = 2217) 220 MG/DL BUN (test code = 2208) 55 MG/DL CREATININE (test code = 2214) 3.71 MG/DL eGFR AMER. (test code 15 ML/MIN/1.73 = 29942) eGFR NON- AMER. (test 13 ML/MIN/1.73 code = 55795) CALC BUN/CREAT (test code = 15 RATIO 2235) SODIUM (test code = 2231) 139 MEQ/L POTASSIUM (test code = 2228) 5.7 MEQ/L CHLORIDE (test code = 2215) 102 MEQ/L CARBON DIOXIDE (test code = 24 MEQ/L 2205) CALCIUM (test code = 2209) 9.0 MG/DL PROTEIN, TOTAL (test code = 7.1 G/DL 2228) ALBUMIN (test code = 2201) 3.8 G/DL CALC GLOBULIN (test code = 3.3 G/DL 2240) CALC A/G RATIO (test code = 1.2 RATIO 2234) BILIRUBIN, TOTAL (test code = 0.3 MG/DL 2206) ALKALINE PHOSPHATASE (test 202 U/L code = 2204) AST (test code = 2218) 26 U/L ALT (test code = 2219) 15 U/L MICROALBUMIN/CREATININE, RANDOM AND [id number] 00:00:00 Test Item Value Reference Range Interpretation Comments CREATININE, URINE, CONC. (test 38.3 MG/DL code = 2072) ALBUMIN, URINE, RANDOM (test code 275.7 MG/DL = 49376) CALC ALBUMIN/CREAT, RND (test 7198 MG/G code = 62327) CBC W/AUTO [id number] 00:00:00 Test Item Value Reference Range Interpretation Comments WBC (test code = 1001) 9.9 K/UL RBC (test code = 1002) 3.85 M/UL HEMOGLOBIN (test code = 1003) 10.5 G/DL HEMATOCRIT (test code = 1004) 31.7 % MCV (test code = 1005) 82.3 fL MCH (test code = 1006) 27.3 PG MCHC (test code = 1007) 33.1 G/DL RDW (test code = 1038) 12.4 % NEUTROPHILS (test code = 1008) 64.2 % LYMPHOCYTES (test code = 1010) 25.1 % MONOCYTES (test code = 1011) 6.9 % EOSINOPHILS (test code = 1012) 3.2 % BASOPHILS (test code = 1013) 0.6 % PLATELET COUNT (test code = 1015) 233 K/UL CBC W/AUTO [id number] 00:00:00 Test Item Value Reference Range Interpretation Comments WBC (test code = 1001) 9.9 K/UL RBC (test code = 1002) 3.85 M/UL HEMOGLOBIN (test code = 1003) 10.5 G/DL HEMATOCRIT (test code = 1004) 31.7 % MCV (test code = 1005) 82.3 fL MCH (test code = 1006) 27.3 PG MCHC (test code = 1007) 33.1 G/DL RDW (test code = 1038) 12.4 % NEUTROPHILS (test code = 1008) 64.2 % LYMPHOCYTES (test code = 1010) 25.1 % MONOCYTES (test code = 1011) 6.9 % EOSINOPHILS (test code = 1012) 3.2 % BASOPHILS (test code = 1013) 0.6 % PLATELET COUNT (test code = 1015) 233 K/UL CBC W/AUTO [id number] 00:00:00 Test Item Value Reference Range Interpretation Comments WBC (test code = 1001) 9.9 K/UL RBC (test code = 1002) 3.85 M/UL HEMOGLOBIN (test code = 1003) 10.5 G/DL HEMATOCRIT (test code = 1004) 31.7 % MCV (test code = 1005) 82.3 fL MCH (test code = 1006) 27.3 PG MCHC (test code = 1007) 33.1 G/DL RDW (test code = 1038) 12.4 % NEUTROPHILS (test code = 1008) 64.2 % LYMPHOCYTES (test code = 1010) 25.1 % MONOCYTES (test code = 1011) 6.9 % EOSINOPHILS (test code = 1012) 3.2 % BASOPHILS (test code = 1013) 0.6 % PLATELET COUNT (test code = 1015) 233 K/UL [id number] 00:00:00 Test Item Value Reference Range Interpretation Comments TSH, THIRD GENERATION (test code 2.370 UIU/ML = 2821) [id number] 00:00:00 Test Item Value Reference Range Interpretation Comments TSH, THIRD GENERATION (test code 2.370 UIU/ML = 2821) [id number] 00:00:00 Test Item Value Reference Range Interpretation Comments TSH, THIRD GENERATION (test code 2.370 UIU/ML = 2821) VITAMIN D, 25 [id number] 00:00:00 Test Item Value Reference Range Interpretation Comments VITAMIN D, 25 OH (test code = 4958) 31 NG/ML VITAMIN D, 25 [id number] 00:00:00 Test Item Value Reference Range Interpretation Comments VITAMIN D, 25 OH (test code = 4958) 31 NG/ML HEMOGLOBIN [id number] 00:00:00 Test Item Value Reference Range Interpretation Comments HEMOGLOBIN A1c (test code = 55453) 8.0 % HEMOGLOBIN [id number] 00:00:00 Test Item Value Reference Range Interpretation Comments HEMOGLOBIN A1c (test code = 41981) 8.0 % HEMOGLOBIN [id number] 00:00:00 Test Item Value Reference Range Interpretation Comments HEMOGLOBIN A1c (test code = 31234) 8.0 % LIPID [id number] 00:00:00 Test Item Value Reference Range Interpretation Comments CHOLESTEROL (test code = 2210) 183 MG/DL TRIGLYCERIDES (test code = 2232) 126 MG/DL HDL CHOLESTEROL (test code = 2220) 67 MG/DL CALC LDL CHOL (test code = 2237) 91 MG/DL RISK RATIO LDL/HDL (test code = 1.36 RATIO 2238) LIPID [id number] 00:00:00 Test Item Value Reference Range Interpretation Comments CHOLESTEROL (test code = 2210) 183 MG/DL TRIGLYCERIDES (test code = 2232) 126 MG/DL HDL CHOLESTEROL (test code = 2220) 67 MG/DL CALC LDL CHOL (test code = 2237) 91 MG/DL RISK RATIO LDL/HDL (test code = 1.36 RATIO 2238) COMPREHENSIVE METABOLIC [id number] 00:00:00 Test Item Value Reference Range Interpretation Comments GLUCOSE (test code = 2217) 220 MG/DL BUN (test code = 2208) 55 MG/DL CREATININE (test code = 2214) 3.71 MG/DL eGFR AMER. (test code 15 ML/MIN/1.73 = 28790) eGFR NON- AMER. (test 13 ML/MIN/1.73 code = 63506) CALC BUN/CREAT (test code = 15 RATIO 2235) SODIUM (test code = 2231) 139 MEQ/L POTASSIUM (test code = 2228) 5.7 MEQ/L CHLORIDE (test code = 2215) 102 MEQ/L CARBON DIOXIDE (test code = 24 MEQ/L 2205) CALCIUM (test code = 2209) 9.0 MG/DL PROTEIN, TOTAL (test code = 7.1 G/DL 2228) ALBUMIN (test code = 2201) 3.8 G/DL CALC GLOBULIN (test code = 3.3 G/DL 2240) CALC A/G RATIO (test code = 1.2 RATIO 2234) BILIRUBIN, TOTAL (test code = 0.3 MG/DL 2206) ALKALINE PHOSPHATASE (test 202 U/L code = 2204) AST (test code = 2218) 26 U/L ALT (test code = 2219) 15 U/L COMPREHENSIVE METABOLIC [id number] 00:00:00 Test Item Value Reference Range Interpretation Comments GLUCOSE (test code = 2217) 220 MG/DL BUN (test code = 2208) 55 MG/DL CREATININE (test code = 2214) 3.71 MG/DL eGFR AMER. (test code 15 ML/MIN/1.73 = 45602) eGFR NON- AMER. (test 13 ML/MIN/1.73 code = 54600) CALC BUN/CREAT (test code = 15 RATIO 2235) SODIUM (test code = 2231) 139 MEQ/L POTASSIUM (test code = 2228) 5.7 MEQ/L CHLORIDE (test code = 2215) 102 MEQ/L CARBON DIOXIDE (test code = 24 MEQ/L 220) CALCIUM (test code = 2209) 9.0 MG/DL PROTEIN, TOTAL (test code = 7.1 G/DL 2228) ALBUMIN (test code = 2201) 3.8 G/DL CALC GLOBULIN (test code = 3.3 G/DL 2240) CALC A/G RATIO (test code = 1.2 RATIO 2233) BILIRUBIN, TOTAL (test code = 0.3 MG/DL 2206) ALKALINE PHOSPHATASE (test 202 U/L code = 2204) AST (test code = 2218) 26 U/L ALT (test code = 2219) 15 U/L MICROALBUMIN/CREATININE, RANDOM AND [id number] 00:00:00 Test Item Value Reference Range Interpretation Comments CREATININE, URINE, CONC. (test 38.3 MG/DL code = 2072) ALBUMIN, URINE, RANDOM (test code 275.7 MG/DL = 46044) CALC ALBUMIN/CREAT, RND (test 7198 MG/G code = 77826) MICROALBUMIN/CREATININE, RANDOM AND [id number] 00:00:00 Test Item Value Reference Range Interpretation Comments CREATININE, URINE, CONC. (test 38.3 MG/DL code = 2072) ALBUMIN, URINE, RANDOM (test code 275.7 MG/DL = 67003) CALC ALBUMIN/CREAT, RND (test 7198 MG/G code = 81940) CBC W/AUTO [id number] 00:00:00 Test Item Value Reference Range Interpretation Comments WBC (test code = 1001) 9.9 K/UL RBC (test code = 1002) 3.85 M/UL HEMOGLOBIN (test code = 1003) 10.5 G/DL HEMATOCRIT (test code = 1004) 31.7 % MCV (test code = 1005) 82.3 fL MCH (test code = 1006) 27.3 PG MCHC (test code = 1007) 33.1 G/DL RDW (test code = 1038) 12.4 % NEUTROPHILS (test code = 1008) 64.2 % LYMPHOCYTES (test code = 1010) 25.1 % MONOCYTES (test code = 1011) 6.9 % EOSINOPHILS (test code = 1012) 3.2 % BASOPHILS (test code = 1013) 0.6 % PLATELET COUNT (test code = 1015) 233 K/UL CBC W/AUTO [id number] 00:00:00 Test Item Value Reference Range Interpretation Comments WBC (test code = 1001) 9.9 K/UL RBC (test code = 1002) 3.85 M/UL HEMOGLOBIN (test code = 1003) 10.5 G/DL HEMATOCRIT (test code = 1004) 31.7 % MCV (test code = 1005) 82.3 fL MCH (test code = 1006) 27.3 PG MCHC (test code = 1007) 33.1 G/DL RDW (test code = 1038) 12.4 % NEUTROPHILS (test code = 1008) 64.2 % LYMPHOCYTES (test code = 1010) 25.1 % MONOCYTES (test code = 1011) 6.9 % EOSINOPHILS (test code = 1012) 3.2 % BASOPHILS (test code = 1013) 0.6 % PLATELET COUNT (test code = 1015) 233 K/UL CBC W/AUTO [id number] 00:00:00 Test Item Value Reference Range Interpretation Comments WBC (test code = 1001) 9.9 K/UL RBC (test code = 1002) 3.85 M/UL HEMOGLOBIN (test code = 1003) 10.5 G/DL HEMATOCRIT (test code = 1004) 31.7 % MCV (test code = 1005) 82.3 fL MCH (test code = 1006) 27.3 PG MCHC (test code = 1007) 33.1 G/DL RDW (test code = 1038) 12.4 % NEUTROPHILS (test code = 1008) 64.2 % LYMPHOCYTES (test code = 1010) 25.1 % MONOCYTES (test code = 1011) 6.9 % EOSINOPHILS (test code = 1012) 3.2 % BASOPHILS (test code = 1013) 0.6 % PLATELET COUNT (test code = 1015) 233 K/UL [id number] 00:00:00 Test Item Value Reference Range Interpretation Comments TSH, THIRD GENERATION (test code 2.370 UIU/ML = 2821) [id number] 00:00:00 Test Item Value Reference Range Interpretation Comments TSH, THIRD GENERATION (test code 2.370 UIU/ML = 2821) SCR MAMM BILATERAL DAVIS CAD [id number] 15:42:55 - SCR MAMM BILATERAL DAVIS CAD DIGITALBILATERAL DIGITAL SCREENING MAMMOGRAM 3D/2D WITH CAD: 8CLINICAL: Asymptomatic. Digital breast tomosynthesis was performed in addition to routine CC and MLO views. Current mammographic images were evaluated by either a [employer] M-Vu or a [employer] ImageCheckerCAD (computer aided detection system). No prior exams were available for comparison. There are scattered fibroglandular tissues in both breasts. Symmetric mild bilateral trabecula and skin thickening noted.No suspicious mass, architectural distortion, malignant type calcification, or lymph node abnormality detected. IMPRESSION: NEGATIVEThere is no mammographic evidence of malignancy. Resume annual screening mammography in one year. Marcia Norris M.D. el/:04/27/2018 15:42:55 Business System Manager: Jackelin Rocha MM, [facility] Mammographyletter sent: BIRADS 1-2 Normal Mammogram BI-RADS: 1 [id number] 00:00:00 Test Item Value Reference Range Interpretation Comments TSH, THIRD GENERATION (test code 1.510 UIU/ML = 2821) [id number] 00:00:00 Test Item Value Reference Range Interpretation Comments TSH, THIRD GENERATION (test code 1.510 UIU/ML = 2821) [id number] 00:00:00 Test Item Value Reference Range Interpretation Comments TSH, THIRD GENERATION (test code 1.510 UIU/ML = 2821) COMPREHENSIVE METABOLIC [id number] 00:00:00 Test Item Value Reference Range Interpretation Comments GLUCOSE (test code = 2217) 337 MG/DL BUN (test code = 2208) 49 MG/DL CREATININE (test code = 2214) 3.21 MG/DL eGFR AMER. (test code 17 ML/MIN/1.73 = 46131) eGFR NON- AMER. (test 15 ML/MIN/1.73 code = 78791) CALC BUN/CREAT (test code = 15 RATIO 2235) SODIUM (test code = 2231) 137 MEQ/L POTASSIUM (test code = 2228) 5.2 MEQ/L CHLORIDE (test code = 2215) 101 MEQ/L CARBON DIOXIDE (test code = 22 MEQ/L 2206) CALCIUM (test code = 2209) 8.7 MG/DL PROTEIN, TOTAL (test code = 7.0 G/DL 2228) ALBUMIN (test code = 2201) 3.6 G/DL CALC GLOBULIN (test code = 3.4 G/DL 2240) CALC A/G RATIO (test code = 1.1 RATIO 2234) BILIRUBIN, TOTAL (test code = <0.2 MG/DL 2206) ALKALINE PHOSPHATASE (test 186 U/L code = 2204) AST (test code = 2218) 29 U/L ALT (test code = 2219) 17 U/L HEMOGLOBIN [id number] 00:00:00 Test Item Value Reference Range Interpretation Comments HEMOGLOBIN A1c (test code = 62750) 8.2 % HEMOGLOBIN [id number] 00:00:00 Test Item Value Reference Range Interpretation Comments HEMOGLOBIN A1c (test code = 63674) 8.2 % [id number] 00:00:00 Test Item Value Reference Range Interpretation Comments TSH, THIRD GENERATION (test code 1.510 UIU/ML = 2821) [id number] 00:00:00 Test Item Value Reference Range Interpretation Comments TSH, THIRD GENERATION (test code 1.510 UIU/ML = 2821) COMPREHENSIVE METABOLIC [id number] 00:00:00 Test Item Value Reference Range Interpretation Comments GLUCOSE (test code = 2217) 337 MG/DL BUN (test code = 2208) 49 MG/DL CREATININE (test code = 2214) 3.21 MG/DL eGFR AMER. (test code 17 ML/MIN/1.73 = 07538) eGFR NON- AMER. (test 15 ML/MIN/1.73 code = 61858) CALC BUN/CREAT (test code = 15 RATIO 2235) SODIUM (test code = 2231) 137 MEQ/L POTASSIUM (test code = 2228) 5.2 MEQ/L CHLORIDE (test code = 2215) 101 MEQ/L CARBON DIOXIDE (test code = 22 MEQ/L 220) CALCIUM (test code = 2209) 8.7 MG/DL PROTEIN, TOTAL (test code = 7.0 G/DL 2228) ALBUMIN (test code = 2201) 3.6 G/DL CALC GLOBULIN (test code = 3.4 G/DL 0) CALC A/G RATIO (test code = 1.1 RATIO 2234) BILIRUBIN, TOTAL (test code = <0.2 MG/DL 2206) ALKALINE PHOSPHATASE (test 186 U/L code = 2204) AST (test code = 2218) 29 U/L ALT (test code = 2219) 17 U/L COMPREHENSIVE METABOLIC [id number] 00:00:00 Test Item Value Reference Range Interpretation Comments GLUCOSE (test code = 2217) 337 MG/DL BUN (test code = 2208) 49 MG/DL CREATININE (test code = 2214) 3.21 MG/DL eGFR AMER. (test code 17 ML/MIN/1.73 = 54558) eGFR NON- AMER. (test 15 ML/MIN/1.73 code = 52151) CALC BUN/CREAT (test code = 15 RATIO 2235) SODIUM (test code = 2231) 137 MEQ/L POTASSIUM (test code = 2228) 5.2 MEQ/L CHLORIDE (test code = 2215) 101 MEQ/L CARBON DIOXIDE (test code = 22 MEQ/L 2205) CALCIUM (test code = 2209) 8.7 MG/DL PROTEIN, TOTAL (test code = 7.0 G/DL 2228) ALBUMIN (test code = 2201) 3.6 G/DL CALC GLOBULIN (test code = 3.4 G/DL 2240) CALC A/G RATIO (test code = 1.1 RATIO 4) BILIRUBIN, TOTAL (test code = <0.2 MG/DL 2206) ALKALINE PHOSPHATASE (test 186 U/L code = 2204) AST (test code = 2218) 29 U/L ALT (test code = 2219) 17 U/L HEMOGLOBIN [id number] 00:00:00 Test Item Value Reference Range Interpretation Comments HEMOGLOBIN A1c (test code = 90555) 8.2 % HEMOGLOBIN [id number] 00:00:00 Test Item Value Reference Range Interpretation Comments HEMOGLOBIN A1c (test code = 55009) 8.2 % HEMOGLOBIN [id number] 00:00:00 Test Item Value Reference Range Interpretation Comments HEMOGLOBIN A1c (test code = 07970) 8.2 % [id number] 00:00:00 Test Item Value Reference Range Interpretation Comments TSH, THIRD GENERATION (test code 1.510 UIU/ML = 2821) [id number] 00:00:00 Test Item Value Reference Range Interpretation Comments TSH, THIRD GENERATION (test code 1.510 UIU/ML = 2821) [id number] 00:00:00 Test Item Value Reference Range Interpretation Comments TSH, THIRD GENERATION (test code 1.510 UIU/ML = 2821) COMPREHENSIVE METABOLIC [id number] 00:00:00 Test Item Value Reference Range Interpretation Comments GLUCOSE (test code = 2217) 337 MG/DL BUN (test code = 2208) 49 MG/DL CREATININE (test code = 2214) 3.21 MG/DL eGFR AMER. (test code 17 ML/MIN/1.73 = 82367) eGFR NON- AMER. (test 15 ML/MIN/1.73 code = 08919) CALC BUN/CREAT (test code = 15 RATIO 2235) SODIUM (test code = 2231) 137 MEQ/L POTASSIUM (test code = 2228) 5.2 MEQ/L CHLORIDE (test code = 2215) 101 MEQ/L CARBON DIOXIDE (test code = 22 MEQ/L 220) CALCIUM (test code = 2209) 8.7 MG/DL PROTEIN, TOTAL (test code = 7.0 G/DL 2228) ALBUMIN (test code = 2201) 3.6 G/DL CALC GLOBULIN (test code = 3.4 G/DL 2240) CALC A/G RATIO (test code = 1.1 RATIO 2234) BILIRUBIN, TOTAL (test code = <0.2 MG/DL 2206) ALKALINE PHOSPHATASE (test 186 U/L code = 2204) AST (test code = 2218) 29 U/L ALT (test code = 2219) 17 U/L COMPREHENSIVE METABOLIC [id number] 00:00:00 Test Item Value Reference Range Interpretation Comments GLUCOSE (test code = 2217) 337 MG/DL BUN (test code = 2208) 49 MG/DL CREATININE (test code = 2214) 3.21 MG/DL eGFR AMER. (test code 17 ML/MIN/1.73 = 14850) eGFR NON- AMER. (test 15 ML/MIN/1.73 code = 94516) CALC BUN/CREAT (test code = 15 RATIO 2235) SODIUM (test code = 2231) 137 MEQ/L POTASSIUM (test code = 2228) 5.2 MEQ/L CHLORIDE (test code = 2215) 101 MEQ/L CARBON DIOXIDE (test code = 22 MEQ/L 2206) CALCIUM (test code = 2209) 8.7 MG/DL PROTEIN, TOTAL (test code = 7.0 G/DL 2228) ALBUMIN (test code = 2201) 3.6 G/DL CALC GLOBULIN (test code = 3.4 G/DL 2240) CALC A/G RATIO (test code = 1.1 RATIO 2234) BILIRUBIN, TOTAL (test code = <0.2 MG/DL 2206) ALKALINE PHOSPHATASE (test 186 U/L code = 2204) AST (test code = 2218) 29 U/L ALT (test code = 2219) 17 U/L HEMOGLOBIN [id number] 00:00:00 Test Item Value Reference Range Interpretation Comments HEMOGLOBIN A1c (test code = 57650) 8.2 % HEMOGLOBIN [id number] 00:00:00 Test Item Value Reference Range Interpretation Comments HEMOGLOBIN A1c (test code = 12380) 8.2 % HEMOGLOBIN [id number] 00:00:00 Test Item Value Reference Range Interpretation Comments HEMOGLOBIN A1c (test code = 72849) 8.2 % PAP TEST, THINPREP, [id number] 00:00:00 Test Item Value Reference Range Interpretation Comments SOURCE: (test code = Cervical/Endocervical 8001) SLIDES: (test code = 1 8011) LMP: (test code = SEE NOTE 8021) SPECIMEN ADEQUACY: (NOTE) (test code = 61953) INTERPRETATION: (test NO EPITHELIAL code = 32224) ABNORMALITY SEE BELOW SECURITY ADVISOR: MORENO (test code = 8101) YORDAN KAUR(ASCP)IAC LOCATION: (test code (NOTE) = 52786) CPT: (test code = (NOTE) 8140) HPV HIGH RISK WITH GENOTYPE, [id number] 00:00:00 Test Item Value Reference Range Interpretation Comments HPV HIGH RISK INTERP (test code = NEGATIVE 95349) HPV 16 (test code = 94335) NEGATIVE HPV 18 (test code = 63203) NEGATIVE HPV, HR, OTHER GENOTYPES (test code NEGATIVE = 52477) PAP TEST, THINPREP, [id number] 00:00:00 Test Item Value Reference Range Interpretation Comments SOURCE: (test code = Cervical/Endocervical 8001) SLIDES: (test code = 1 8011) LMP: (test code = SEE NOTE 8021) SPECIMEN ADEQUACY: (NOTE) (test code = 69032) INTERPRETATION: (test NO EPITHELIAL code = 78285) ABNORMALITY SEE BELOW SECURITY ADVISOR: MORENO (test code = 8101) PARCHER,CT(ASCP)IAC LOCATION: (test code (NOTE) = 01939) CPT: (test code = (NOTE) 8140) PAP TEST, THINPREP, [id number] 00:00:00 Test Item Value Reference Range Interpretation Comments SOURCE: (test code = Cervical/Endocervical 8001) SLIDES: (test code = 1 8011) LMP: (test code = SEE NOTE 8021) SPECIMEN ADEQUACY: (NOTE) (test code = 19476) INTERPRETATION: (test NO EPITHELIAL code = 54015) ABNORMALITY SEE BELOW SECURITY ADVISOR: MORENO (test code = 8101) PARCHER,CT(ASCP)IAC LOCATION: (test code (NOTE) = 25344) CPT: (test code = (NOTE) 8140) HPV HIGH RISK WITH GENOTYPE, [id number] 00:00:00 Test Item Value Reference Range Interpretation Comments HPV HIGH RISK INTERP (test code = NEGATIVE 96067) HPV 16 (test code = 98153) NEGATIVE HPV 18 (test code = 78680) NEGATIVE HPV, HR, OTHER GENOTYPES (test code NEGATIVE = 04718) HPV HIGH RISK WITH GENOTYPE, [id number] 00:00:00 Test Item Value Reference Range Interpretation Comments HPV HIGH RISK INTERP (test code = NEGATIVE 83427) HPV 16 (test code = 67768) NEGATIVE HPV 18 (test code = 64452) NEGATIVE HPV, HR, OTHER GENOTYPES (test code NEGATIVE = 07974) PAP TEST, THINPREP, [id number] 00:00:00 Test Item Value Reference Range Interpretation Comments SOURCE: (test code = Cervical/Endocervical 8001) SLIDES: (test code = 1 8011) LMP: (test code = SEE NOTE 8021) SPECIMEN ADEQUACY: (NOTE) (test code = 98603) INTERPRETATION: (test NO EPITHELIAL code = 17032) ABNORMALITY SEE BELOW SECURITY ADVISOR: MORENO (test code = 8101) PARCHER,CT(ASCP)IAC LOCATION: (test code (NOTE) = 78253) CPT: (test code = (NOTE) 8140) PAP TEST, THINPREP, [id number] 00:00:00 Test Item Value Reference Range Interpretation Comments SOURCE: (test code = Cervical/Endocervical 8001) SLIDES: (test code = 1 8011) LMP: (test code = SEE NOTE 8021) SPECIMEN ADEQUACY: (NOTE) (test code = 92429) INTERPRETATION: (test NO EPITHELIAL code = 98952) ABNORMALITY SEE BELOW SECURITY ADVISOR: MORENO (test code = 8101) YORDAN KAUR(ASCP)IAC LOCATION: (test code (NOTE) = 68395) CPT: (test code = (NOTE) 8140) HPV HIGH RISK WITH GENOTYPE, [id number] 00:00:00 Test Item Value Reference Range Interpretation Comments HPV HIGH RISK INTERP (test code = NEGATIVE 50969) HPV 16 (test code = 88016) NEGATIVE HPV 18 (test code = 63821) NEGATIVE HPV, HR, OTHER GENOTYPES (test code NEGATIVE = 78837) HPV HIGH RISK WITH GENOTYPE, [id number] 00:00:00 Test Item Value Reference Range Interpretation Comments HPV HIGH RISK INTERP (test code = NEGATIVE 44959) HPV 16 (test code = 42185) NEGATIVE HPV 18 (test code = 70002) NEGATIVE HPV, HR, OTHER GENOTYPES (test code NEGATIVE = 59942) PROTEIN/CREATININE RATIO, [id number] 00:00:00 Test Item Value Reference Range Interpretation Comments PROTEIN, URINE, CONC. (test 682 MG/DL code = 2104) CREATININE, URINE, CONC. (test 112.6 MG/DL code = 2072) CALC PROTEIN/CREATININE (test 6057 MG/GCREAT code = 2158) PROTEIN/CREATININE RATIO, [id number] 00:00:00 Test Item Value Reference Range Interpretation Comments PROTEIN, URINE, CONC. (test 682 MG/DL code = 2104) CREATININE, URINE, CONC. (test 112.6 MG/DL code = 2072) CALC PROTEIN/CREATININE (test 6057 MG/GCREAT code = 2158) VITAMIN D, 25 [id number] 00:00:00 Test Item Value Reference Range Interpretation Comments VITAMIN D, 25 OH (test code = 4958) 19 NG/ML VITAMIN D, 25 [id number] 00:00:00 Test Item Value Reference Range Interpretation Comments VITAMIN D, 25 OH (test code = 4958) 19 NG/ML BASIC METABOLIC [id number] 00:00:00 Test Item Value Reference Range Interpretation Comments GLUCOSE (test code = 2217) 279 MG/DL BUN (test code = 2208) 43 MG/DL CREATININE (test code = 2214) 2.63 MG/DL eGFR AMER. (test code 22 ML/MIN/1.73 = 98394) eGFR NON- AMER. (test 19 ML/MIN/1.73 code = 68477) SODIUM (test code = 2231) 140 MEQ/L POTASSIUM (test code = 2228) 5.1 MEQ/L CHLORIDE (test code = 2215) 101 MEQ/L CARBON DIOXIDE (test code = 26 MEQ/L 2206) CALCIUM (test code = 2209) 8.9 MG/DL INTACT [id number] 00:00:00 Test Item Value Reference Range Interpretation Comments INTACT PTH (test code = 5005) 126 PG/ML INTACT [id number] 00:00:00 Test Item Value Reference Range Interpretation Comments INTACT PTH (test code = 5005) 126 PG/ML PROTEIN/CREATININE RATIO, [id number] 00:00:00 Test Item Value Reference Range Interpretation Comments PROTEIN, URINE, CONC. (test 682 MG/DL code = 2104) CREATININE, URINE, CONC. (test 112.6 MG/DL code = 2072) CALC PROTEIN/CREATININE (test 6057 MG/GCREAT code = 2158) VITAMIN D, 25 [id number] 00:00:00 Test Item Value Reference Range Interpretation Comments VITAMIN D, 25 OH (test code = 4958) 19 NG/ML BASIC METABOLIC [id number] 00:00:00 Test Item Value Reference Range Interpretation Comments GLUCOSE (test code = 2217) 279 MG/DL BUN (test code = 2208) 43 MG/DL CREATININE (test code = 2214) 2.63 MG/DL eGFR AMER. (test code 22 ML/MIN/1.73 = 36571) eGFR NON- AMER. (test 19 ML/MIN/1.73 code = 10642) SODIUM (test code = 2231) 140 MEQ/L POTASSIUM (test code = 2228) 5.1 MEQ/L CHLORIDE (test code = 2215) 101 MEQ/L CARBON DIOXIDE (test code = 26 MEQ/L 2206) CALCIUM (test code = 2209) 8.9 MG/DL BASIC METABOLIC [id number] 00:00:00 Test Item Value Reference Range Interpretation Comments GLUCOSE (test code = 2217) 279 MG/DL BUN (test code = 2208) 43 MG/DL CREATININE (test code = 2214) 2.63 MG/DL eGFR AMER. (test code 22 ML/MIN/1.73 = 58164) eGFR NON- AMER. (test 19 ML/MIN/1.73 code = 55505) SODIUM (test code = 2231) 140 MEQ/L POTASSIUM (test code = 2228) 5.1 MEQ/L CHLORIDE (test code = 2215) 101 MEQ/L CARBON DIOXIDE (test code = 26 MEQ/L 2206) CALCIUM (test code = 2209) 8.9 MG/DL INTACT [id number] 00:00:00 Test Item Value Reference Range Interpretation Comments INTACT PTH (test code = 5005) 126 PG/ML INTACT [id number] 00:00:00 Test Item Value Reference Range Interpretation Comments INTACT PTH (test code = 5005) 126 PG/ML INTACT [id number] 00:00:00 Test Item Value Reference Range Interpretation Comments INTACT PTH (test code = 5005) 126 PG/ML PROTEIN/CREATININE RATIO, [id number] 00:00:00 Test Item Value Reference Range Interpretation Comments PROTEIN, URINE, CONC. (test 682 MG/DL code = 2104) CREATININE, URINE, CONC. (test 112.6 MG/DL code = 2072) CALC PROTEIN/CREATININE (test 6057 MG/GCREAT code = 2158) PROTEIN/CREATININE RATIO, [id number] 00:00:00 Test Item Value Reference Range Interpretation Comments PROTEIN, URINE, CONC. (test 682 MG/DL code = 2104) CREATININE, URINE, CONC. (test 112.6 MG/DL code = 2072) CALC PROTEIN/CREATININE (test 6057 MG/GCREAT code = 2158) VITAMIN D, 25 [id number] 00:00:00 Test Item Value Reference Range Interpretation Comments VITAMIN D, 25 OH (test code = 4958) 19 NG/ML VITAMIN D, 25 [id number] 00:00:00 Test Item Value Reference Range Interpretation Comments VITAMIN D, 25 OH (test code = 4958) 19 NG/ML BASIC METABOLIC [id number] 00:00:00 Test Item Value Reference Range Interpretation Comments GLUCOSE (test code = 2217) 279 MG/DL BUN (test code = 2208) 43 MG/DL CREATININE (test code = 2214) 2.63 MG/DL eGFR AMER. (test code 22 ML/MIN/1.73 = 80735) eGFR NON- AMER. (test 19 ML/MIN/1.73 code = 54540) SODIUM (test code = 2231) 140 MEQ/L POTASSIUM (test code = 2228) 5.1 MEQ/L CHLORIDE (test code = 2215) 101 MEQ/L CARBON DIOXIDE (test code = 26 MEQ/L 2206) CALCIUM (test code = 2209) 8.9 MG/DL BASIC METABOLIC [id number] 00:00:00 Test Item Value Reference Range Interpretation Comments GLUCOSE (test code = 2217) 279 MG/DL BUN (test code = 2208) 43 MG/DL CREATININE (test code = 2214) 2.63 MG/DL eGFR AMER. (test code 22 ML/MIN/1.73 = 21050) eGFR NON- AMER. (test 19 ML/MIN/1.73 code = 52014) SODIUM (test code = 2231) 140 MEQ/L POTASSIUM (test code = 2228) 5.1 MEQ/L CHLORIDE (test code = 2215) 101 MEQ/L CARBON DIOXIDE (test code = 26 MEQ/L 2206) CALCIUM (test code = 2209) 8.9 MG/DL INTACT [id number] 00:00:00 Test Item Value Reference Range Interpretation Comments INTACT PTH (test code = 5005) 126 PG/ML INTACT [id number] 00:00:00 Test Item Value Reference Range Interpretation Comments INTACT PTH (test code = 5005) 126 PG/ML INTACT [id number] 00:00:00 Test Item Value Reference Range Interpretation Comments INTACT PTH (test code = 5005) 126 PG/ML LIPID [id number] 00:00:00 Test Item Value Reference Range Interpretation Comments CHOLESTEROL (test code = 2210) 166 MG/DL TRIGLYCERIDES (test code = 2232) 77 MG/DL HDL CHOLESTEROL (test code = 2220) 71 MG/DL CALC LDL CHOL (test code = 2237) 80 MG/DL RISK RATIO LDL/HDL (test code = 1.12 RATIO 2238) COMPREHENSIVE METABOLIC [id number] 00:00:00 Test Item Value Reference Range Interpretation Comments GLUCOSE (test code = 2217) 241 MG/DL BUN (test code = 2208) 42 MG/DL CREATININE (test code = 2214) 2.62 MG/DL eGFR AMER. (test code 22 ML/MIN/1.73 = 80510) eGFR NON- AMER. (test 19 ML/MIN/1.73 code = 24059) CALC BUN/CREAT (test code = 16 RATIO 2235) SODIUM (test code = 2231) 137 MEQ/L POTASSIUM (test code = 2228) 4.7 MEQ/L CHLORIDE (test code = 2215) 98 MEQ/L CARBON DIOXIDE (test code = 25 MEQ/L 220) CALCIUM (test code = 2209) 8.8 MG/DL PROTEIN, TOTAL (test code = 6.7 G/DL 2228) ALBUMIN (test code = 2201) 3.4 G/DL CALC GLOBULIN (test code = 3.3 G/DL 0) CALC A/G RATIO (test code = 1.0 RATIO 4) BILIRUBIN, TOTAL (test code = 0.3 MG/DL 2206) ALKALINE PHOSPHATASE (test 165 U/L code = 2204) AST (test code = 2218) 20 U/L ALT (test code = 2219) 10 U/L COMPREHENSIVE METABOLIC [id number] 00:00:00 Test Item Value Reference Range Interpretation Comments GLUCOSE (test code = 2217) 241 MG/DL BUN (test code = 2208) 42 MG/DL CREATININE (test code = 2214) 2.62 MG/DL eGFR AMER. (test code 22 ML/MIN/1.73 = 82248) eGFR NON- AMER. (test 19 ML/MIN/1.73 code = 95347) CALC BUN/CREAT (test code = 16 RATIO 2235) SODIUM (test code = 2231) 137 MEQ/L POTASSIUM (test code = 2228) 4.7 MEQ/L CHLORIDE (test code = 2215) 98 MEQ/L CARBON DIOXIDE (test code = 25 MEQ/L 220) CALCIUM (test code = 2209) 8.8 MG/DL PROTEIN, TOTAL (test code = 6.7 G/DL 2228) ALBUMIN (test code = 2201) 3.4 G/DL CALC GLOBULIN (test code = 3.3 G/DL 2240) CALC A/G RATIO (test code = 1.0 RATIO 2234) BILIRUBIN, TOTAL (test code = 0.3 MG/DL 220) ALKALINE PHOSPHATASE (test 165 U/L code = 2204) AST (test code = 2218) 20 U/L ALT (test code = 2219) 10 U/L [id number] 00:00:00 Test Item Value Reference Range Interpretation Comments TSH, THIRD GENERATION (test code 1.300 UIU/ML = 2821) [id number] 00:00:00 Test Item Value Reference Range Interpretation Comments TSH, THIRD GENERATION (test code 1.300 UIU/ML = 2821) [id number] 00:00:00 Test Item Value Reference Range Interpretation Comments TSH, THIRD GENERATION (test code 1.300 UIU/ML = 2821) MICROALBUMIN/CREATININE, RANDOM AND [id number] 00:00:00 Test Item Value Reference Range Interpretation Comments CREATININE, URINE, CONC. (test 33.9 MG/DL code = 2072) ALBUMIN, URINE, RANDOM (test code 196.7 MG/DL = 04462) CALC ALBUMIN/CREAT, RND (test 5802 MG/G code = 72894) MICROALBUMIN/CREATININE, RANDOM AND [id number] 00:00:00 Test Item Value Reference Range Interpretation Comments CREATININE, URINE, CONC. (test 33.9 MG/DL code = 2072) ALBUMIN, URINE, RANDOM (test code 196.7 MG/DL = 43716) CALC ALBUMIN/CREAT, RND (test 5802 MG/G code = 24967) HEMOGLOBIN [id number] 00:00:00 Test Item Value Reference Range Interpretation Comments HEMOGLOBIN A1c (test code = 32550) 9.5 % HEMOGLOBIN [id number] 00:00:00 Test Item Value Reference Range Interpretation Comments HEMOGLOBIN A1c (test code = 79372) 9.5 % LIPID [id number] 00:00:00 Test Item Value Reference Range Interpretation Comments CHOLESTEROL (test code = 2210) 166 MG/DL TRIGLYCERIDES (test code = 2232) 77 MG/DL HDL CHOLESTEROL (test code = 2220) 71 MG/DL CALC LDL CHOL (test code = 2237) 80 MG/DL RISK RATIO LDL/HDL (test code = 1.12 RATIO 2238) COMPREHENSIVE METABOLIC [id number] 00:00:00 Test Item Value Reference Range Interpretation Comments GLUCOSE (test code = 2217) 241 MG/DL BUN (test code = 2208) 42 MG/DL CREATININE (test code = 2214) 2.62 MG/DL eGFR AMER. (test code 22 ML/MIN/1.73 = 97472) eGFR NON- AMER. (test 19 ML/MIN/1.73 code = 94752) CALC BUN/CREAT (test code = 16 RATIO 2235) SODIUM (test code = 2231) 137 MEQ/L POTASSIUM (test code = 2228) 4.7 MEQ/L CHLORIDE (test code = 2215) 98 MEQ/L CARBON DIOXIDE (test code = 25 MEQ/L 2205) CALCIUM (test code = 2209) 8.8 MG/DL PROTEIN, TOTAL (test code = 6.7 G/DL 2228) ALBUMIN (test code = 2201) 3.4 G/DL CALC GLOBULIN (test code = 3.3 G/DL 0) CALC A/G RATIO (test code = 1.0 RATIO 2233) BILIRUBIN, TOTAL (test code = 0.3 MG/DL 2206) ALKALINE PHOSPHATASE (test 165 U/L code = 2204) AST (test code = 2218) 20 U/L ALT (test code = 2219) 10 U/L [id number] 00:00:00 Test Item Value Reference Range Interpretation Comments TSH, THIRD GENERATION (test code 1.300 UIU/ML = 2821) [id number] 00:00:00 Test Item Value Reference Range Interpretation Comments TSH, THIRD GENERATION (test code 1.300 UIU/ML = 2821) MICROALBUMIN/CREATININE, RANDOM AND [id number] 00:00:00 Test Item Value Reference Range Interpretation Comments CREATININE, URINE, CONC. (test 33.9 MG/DL code = 2072) ALBUMIN, URINE, RANDOM (test code 196.7 MG/DL = 19651) CALC ALBUMIN/CREAT, RND (test 5802 MG/G code = 28342) HEMOGLOBIN [id number] 00:00:00 Test Item Value Reference Range Interpretation Comments HEMOGLOBIN A1c (test code = 41502) 9.5 % HEMOGLOBIN [id number] 00:00:00 Test Item Value Reference Range Interpretation Comments HEMOGLOBIN A1c (test code = 97784) 9.5 % HEMOGLOBIN [id number] 00:00:00 Test Item Value Reference Range Interpretation Comments HEMOGLOBIN A1c (test code = 63336) 9.5 % LIPID [id number] 00:00:00 Test Item Value Reference Range Interpretation Comments CHOLESTEROL (test code = 2210) 166 MG/DL TRIGLYCERIDES (test code = 2232) 77 MG/DL HDL CHOLESTEROL (test code = 2220) 71 MG/DL CALC LDL CHOL (test code = 2237) 80 MG/DL RISK RATIO LDL/HDL (test code = 1.12 RATIO 2238) LIPID [id number] 00:00:00 Test Item Value Reference Range Interpretation Comments CHOLESTEROL (test code = 2210) 166 MG/DL TRIGLYCERIDES (test code = 2232) 77 MG/DL HDL CHOLESTEROL (test code = 2220) 71 MG/DL CALC LDL CHOL (test code = 2237) 80 MG/DL RISK RATIO LDL/HDL (test code = 1.12 RATIO 2238) COMPREHENSIVE METABOLIC [id number] 00:00:00 Test Item Value Reference Range Interpretation Comments GLUCOSE (test code = 2217) 241 MG/DL BUN (test code = 2208) 42 MG/DL CREATININE (test code = 2214) 2.62 MG/DL eGFR AMER. (test code 22 ML/MIN/1.73 = 66096) eGFR NON- AMER. (test 19 ML/MIN/1.73 code = 15323) CALC BUN/CREAT (test code = 16 RATIO 2235) SODIUM (test code = 2231) 137 MEQ/L POTASSIUM (test code = 2228) 4.7 MEQ/L CHLORIDE (test code = 2215) 98 MEQ/L CARBON DIOXIDE (test code = 25 MEQ/L 2205) CALCIUM (test code = 2209) 8.8 MG/DL PROTEIN, TOTAL (test code = 6.7 G/DL 2228) ALBUMIN (test code = 2201) 3.4 G/DL CALC GLOBULIN (test code = 3.3 G/DL 2240) CALC A/G RATIO (test code = 1.0 RATIO 2234) BILIRUBIN, TOTAL (test code = 0.3 MG/DL 2207) ALKALINE PHOSPHATASE (test 165 U/L code = 2204) AST (test code = 2218) 20 U/L ALT (test code = 2219) 10 U/L COMPREHENSIVE METABOLIC [id number] 00:00:00 Test Item Value Reference Range Interpretation Comments GLUCOSE (test code = 2217) 241 MG/DL BUN (test code = 2208) 42 MG/DL CREATININE (test code = 2214) 2.62 MG/DL eGFR AMER. (test code 22 ML/MIN/1.73 = 54206) eGFR NON- AMER. (test 19 ML/MIN/1.73 code = 30403) CALC BUN/CREAT (test code = 16 RATIO 2235) SODIUM (test code = 2231) 137 MEQ/L POTASSIUM (test code = 2228) 4.7 MEQ/L CHLORIDE (test code = 2215) 98 MEQ/L CARBON DIOXIDE (test code = 25 MEQ/L 2205) CALCIUM (test code = 2209) 8.8 MG/DL PROTEIN, TOTAL (test code = 6.7 G/DL 2228) ALBUMIN (test code = 2201) 3.4 G/DL CALC GLOBULIN (test code = 3.3 G/DL 2240) CALC A/G RATIO (test code = 1.0 RATIO 2234) BILIRUBIN, TOTAL (test code = 0.3 MG/DL 2206) ALKALINE PHOSPHATASE (test 165 U/L code = 2204) AST (test code = 2218) 20 U/L ALT (test code = 2219) 10 U/L [id number] 00:00:00 Test Item Value Reference Range Interpretation Comments TSH, THIRD GENERATION (test code 1.300 UIU/ML = 2821) [id number] 00:00:00 Test Item Value Reference Range Interpretation Comments TSH, THIRD GENERATION (test code 1.300 UIU/ML = 2821) [id number] 00:00:00 Test Item Value Reference Range Interpretation Comments TSH, THIRD GENERATION (test code 1.300 UIU/ML = 2821) MICROALBUMIN/CREATININE, RANDOM AND [id number] 00:00:00 Test Item Value Reference Range Interpretation Comments CREATININE, URINE, CONC. (test 33.9 MG/DL code = 2072) ALBUMIN, URINE, RANDOM (test code 196.7 MG/DL = 45921) CALC ALBUMIN/CREAT, RND (test 5802 MG/G code = 70030) MICROALBUMIN/CREATININE, RANDOM AND [id number] 00:00:00 Test Item Value Reference Range Interpretation Comments CREATININE, URINE, CONC. (test 33.9 MG/DL code = 2072) ALBUMIN, URINE, RANDOM (test code 196.7 MG/DL = 08977) CALC ALBUMIN/CREAT, RND (test 5802 MG/G code = 00743) HEMOGLOBIN [id number] 00:00:00 Test Item Value Reference Range Interpretation Comments HEMOGLOBIN A1c (test code = 73873) 9.5 % HEMOGLOBIN [id number] 00:00:00 Test Item Value Reference Range Interpretation Comments HEMOGLOBIN A1c (test code = 32603) 9.5 % HEMOGLOBIN [id number] 00:00:00 Test Item Value Reference Range Interpretation Comments HEMOGLOBIN A1c (test code = 04335) 9.5 % LIPID [id number] 00:00:00 Test Item Value Reference Range Interpretation Comments CHOLESTEROL (test code = 2210) 166 MG/DL TRIGLYCERIDES (test code = 2232) 77 MG/DL HDL CHOLESTEROL (test code = 2220) 71 MG/DL CALC LDL CHOL (test code = 2237) 80 MG/DL RISK RATIO LDL/HDL (test code = 1.12 RATIO 2238)
--- NOTE | 2022-03-05 17:28 | RAD REPORT ---
EXAM DESCRIPTION: CT - Head Brain Wo Cont - 03/05/2022 5:09 pm CLINICAL HISTORY: AMS COMPARISON: <Comparisons> TECHNIQUE: All CT scans are performed using dose optimization technique as appropriate and may inclu de automated exposure control or mA/KV adjustment according to patient size. FINDINGS: No intracranial hemorrhage, hydrocephalus or extra-axial fluid collection.No areas of brai n edema or evidence of midline shift. Chronic small vessel ischemic changes The paranasal sinuses and mastoids are clear. The calvarium is intact. IMPRESSION: No acute intracranial abnormality.
--- NOTE | 2022-03-05 17:45 | RAD REPORT ---
EXAM DESCRIPTION: MRI - Brain Wo Cont - 03/05/2022 5:31 pm CLINICAL HISTORY: AMS, rule out CVA COMPARISON: Brain Wo Cont dated 01/04/2020; Brain Wo Cont dated 08/25/2019; Brain Wo Cont dated 018; MRA Head Wo Cont dated 05/31/2018 TECHNIQUE: Sagittal T1-weighted images were obtained along with PD/heavily T2-weighted and T2-FLAIR images. Axial DWI and ADC mapping sequences were also obtained along with coronal heavily T2-weighted images were obtained. FINDINGS: No intracranial hemorrhage, mass or acute infarction. There is no edema or shift of midlin e structures. No extra-axial fluid collections. Signal voids are seen as a normal finding in the leandro r intracranial vessels. Similar mild chronic small vessel ischemic changes. Mastoid air cells and paranasal sinuses are clear. IMPRESSION: No acute intracranial abnormality. Specifically, no evidence of acute infarct. 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
--- NOTE | 2022-03-05 18:47 | EDPHYS ---
Physician Documentation [facility] Name: Margarita Dominique Age: 61 yrs Sex: Female : 1960 Arrival Date: 03/05/2022 Time: 16:02 Bed 18 Private MD: ED Physician José Miguel Lynn HPI: 03/05 16:41 This 61 yrs old Female presents to ER via EMS with complaints of AMS. rn 16:41 The patient presents with decreased responsiveness. Onset: The symptoms/episode rn began/occurred this morning. Possible causes: pain medication. Associated signs and symptoms: Pertinent negatives: abdominal pain, chest pain, headache, seizure, shortness of breath, vertigo, vomiting. Current symptoms: In the emergency department the patient's symptoms have improved. It is unknown whether or not the patient has had similar symptoms in the past. The patient has been recently seen by a physician:. Pt brought from dialysis after completion for AMS, decreased responsiveness. Pt states took a pain medication yesterday, for first time, and made her "very sleepy". Went to dialysis today already sleepy and given a hydrocodone. No syncope. No chest pain/sob/abd pain/vomiting/diarrhea. Pt already improving and much more alert without intervention. Denies focal neurological complaint. . Historical: - Allergies: 16:23 No Known Allergies; jl7 - Home Meds: 16:23 aspirin 81 mg Oral chew 1 tab once daily [Active]; Lantus 100 unit/mL Sub-Q soln 10 jl7 units nightly [Active]; atorvastatin 40 mg Oral tab 1 tab once daily [Active]; Synthroid 25 mcg Oral tab 1 tab once daily [Active]; clopidogrel 75 mg Oral tab 1 tab once daily [Active]; Metoprolol Tartrate 12.5 mg Oral 1 tab 2 times per day [Active]; furosemide 20 mg Oral tab 1 tab once daily [Active]; pregabalin 150 mg Oral cap [Active]; Novolin R 12 units with meal Sub-Q [Active]; isosorbide mononitrate 30 mg Oral Tb24 1 tab once daily [Active]; sevelamer HCl oral [Active]; - PMHx: 16:23 CVA; Diabetes - NIDDM; Dialysis; HEART FAILURE; Hypertension; Hypothyroidism; vitamin d jl7 deficiency; - Immunization history:: Adult Immunizations unknown. - Social history:: Smoking status: unknown. - Family history:: not pertinent. - Hospitalizations: : No recent hospitalization is reported. ROS: 16:41 Constitutional: Negative for fever, chills, and weight loss, Eyes: Negative for injury, rn pain, redness, and discharge, Neck: Negative for injury, pain, and swelling, Cardiovascular: Negative for chest pain, palpitations, and edema, Respiratory: Negative for shortness of breath, cough, wheezing, and pleuritic chest pain, Abdomen/GI: Negative for abdominal pain, nausea, vomiting, diarrhea, and constipation, Back: Negative for injury and pain, MS/Extremity: Negative for injury and deformity, Skin: Negative for injury, rash, and discoloration, Neuro: Negative for headache, numbness, tingling, and seizure Exam: 16:41 Constitutional: This is a well developed, well nourished patient who is awake, alert, rn and in no acute distress. Head/Face: Normocephalic, atraumatic. Eyes: Periorbital areas with no swelling, redness, or edema. ENT: dry MM Cardiovascular: Regular rate and rhythm. No pulse deficits. Respiratory: No increased work of breathing, no retractions or nasal flaring. Abdomen/GI: Soft, non-tender Skin: Warm, dry MS/ Extremity: No cyanosis Neuro: Awake and alert, GCS 15, oriented to person, place, time, and situation. Cranial nerves II-XII grossly intact. + bilateral lower ext prostheses, strength otherwise 4/5 throughout. Sensory grossly intact. 18:28 ECG was reviewed by the Attending Physician. rn Vital Signs: 16:16 BP 194 / 74; Pulse 70; Resp 17; Temp 97.9; Pulse Ox 93% ; jl7 16:45 BP 191 / 71; Pulse 68; Resp 15; Pulse Ox 94% ; jl7 17:48 BP 187 / 63; Pulse 68; Resp 16; Pulse Ox 99% ; jl7 18:15 BP 182 / 72; Pulse 68; Resp 16; Pulse Ox 96% ; jl7 MDM: 16:07 Patient medically screened. rn 18:43 Differential Diagnosis: CVA, electrolyte abnormality, hypoglycemia, TIA, volume rn depletion, medication side effect. Data reviewed: vital signs, nurses notes, lab test result(s), EKG, radiologic studies, CT scan, MRI, and as a result, I will discharge patient. Counseling: I had a detailed discussion with the patient and/or guardian regarding: the historical points, exam findings, and any diagnostic results supporting the discharge/admit diagnosis, lab results, radiology results, the need for outpatient follow up, to return to the emergency department if symptoms worsen or persist or if there are any questions or concerns that arise at home. Response to treatment: the patient's symptoms have markedly improved after treatment, the patient's symptoms have resolved after treatment, the patient's condition has returned to base line, the patient is now symptom free, and as a result, I will discharge patient. Special discussion: I discussed with the patient/guardian in detail that at this point there is no indication for admission to the hospital. It is understood, however, that if the symptoms persist or worsen the patient needs to return immediately for re-evaluation. ED course: CT and MRI brain neg for acute findings, sitting upright and drinking, using phone, improving mental status, near baseline. Sons here now and also believes it to be 2/2 medication she took. Will try and avoid it. Will dc home with return precautions.. 03/05 16:18 Order name: CT Head Brain wo Cont; Complete Time: 17:55 rn 03/05 16:40 Order name: Brain Wo Cont MRI; Complete Time: 17:55 rn 03/05 18:13 Order name: Glucose, Ancillary Testing; Complete Time: 18:36 EDMS 03/05 16:19 Order name: EKG; Complete Time: 16:19 rn 03/05 16:19 Order name: Cardiac monitoring; Complete Time: 18:52 rn 03/05 16:19 Order name: EKG - Nurse/Tech; Complete Time: 18:52 rn 03/05 16:19 Order name: O2 Per Protocol; Complete Time: 18:52 rn 03/05 16:19 Order name: O2 Sat Monitoring; Complete Time: 18:52 rn 03/05 16:19 Order name: Glucose Level; Complete Time: 18:52 rn EC:28 Rate is 69 beats/min. Rhythm is regular. QRS [place] is Normal. [place] interval is normal. QRS rn interval is normal. QT interval is prolonged at 495 msec. No Q waves. T waves are Normal. No ST changes noted. Clinical impression: NSR w/ Non-specific ST/T Changes. Interpreted by me. Reviewed by me. Administered Medications: No medications were administered Disposition Summary: 03/05/22 18:47 Discharge Ordered Location: Home rn Problem: new rn Symptoms: have improved rn Condition: Stable rn Diagnosis - Altered mental status, unspecified rn - Adverse effect of medication rn - End stage renal disease rn Followup: rn - With: Private Physician - When: As needed - Reason: Recheck today's complaints, Re-evaluation by your physician Discharge Instructions: - Discharge Summary Sheet rn - End-Stage Kidney Disease rn Forms: - Medication Reconciliation Form rn - Thank You Letter rn - Antibiotic rn invasive - Prescription Opioid Use rn Signatures: Dispatcher [employer] EDJosé Miguel Mayo MD MD rn Leal, Jahala, RN RN jl7 Corrections: (The following items were deleted from the chart) 18:52 16:19 IV Saline Lock ordered. esdras young 18:52 16:19 Labs collected and sent ordered. esdras young
--- NOTE | 2022-03-05 18:47 | ER ---
[facility] Name: Margarita Dominique Age: 61 yrs Sex: Female : 1960 Arrival Date: 03/05/2022 Time: 16:02 Bed 18 Private MD: Diagnosis: Altered mental status, unspecified;Adverse effect of medication;End stage renal disease Presentation: 03/05 16:16 Chief complaint: EMS states: Toned out by [place] for unresponsive, pt was responsive on jl7 arrival. Pt took a [place] about 2 hours ago and then started feeling drowsy. Coronavirus screen: At this time, the client does not indicate any symptoms associated with coronavirus-19. Ebola Screen: No symptoms or risks identified at this time. Initial Sepsis Screen: Does the patient meet any 2 criteria? No. Patient's initial sepsis screen is negative. Does the patient have a suspected source of infection? No. Patient's initial sepsis screen is negative. Risk Assessment: Do you want to hurt yourself or someone else? Patient reports no desire to harm self or others. Onset of symptoms was March 05, 2022 at 15:15. Care prior to arrival: BP 202/97; HR 70; SpO2 93% on RA. 16:16 Method Of Arrival: EMS: [facility] 16:16 Acuity: YEFRI 2 jl7 Triage Assessment: 16:00 General: Appears in no apparent distress. uncomfortable, Behavior is cooperative, jl7 drowsy. Pain: Denies pain. Neuro: Level of Consciousness is awake, obeys commands, drowsy. Oriented to person, place, time, situation. Cardiovascular: Denies chest pain, Patient's skin is warm and dry. Respiratory: Airway is patent Respiratory effort is even, unlabored, Respiratory pattern is regular, symmetrical, Denies shortness of breath. Derm: Skin is pink, warm \T\ dry. Historical: - Allergies: 16:23 No Known Allergies; jl7 - Home Meds: 16:23 aspirin 81 mg Oral chew 1 tab once daily [Active]; Lantus 100 unit/mL Sub-Q soln 10 jl7 units nightly [Active]; atorvastatin 40 mg Oral tab 1 tab once daily [Active]; Synthroid 25 mcg Oral tab 1 tab once daily [Active]; clopidogrel 75 mg Oral tab 1 tab once daily [Active]; Metoprolol Tartrate 12.5 mg Oral 1 tab 2 times per day [Active]; furosemide 20 mg Oral tab 1 tab once daily [Active]; pregabalin 150 mg Oral cap [Active]; Novolin R 12 units with meal Sub-Q [Active]; isosorbide mononitrate 30 mg Oral Tb24 1 tab once daily [Active]; sevelamer HCl oral [Active]; - PMHx: 16:23 CVA; Diabetes - NIDDM; Dialysis; HEART FAILURE; Hypertension; Hypothyroidism; vitamin d jl7 deficiency; - Immunization history:: Adult Immunizations unknown. - Social history:: Smoking status: unknown. - Family history:: not pertinent. - Hospitalizations: : No recent hospitalization is reported. Screenin:00 Abuse screen: Denies threats or abuse. Denies injuries from another. Nutritional jl7 screening: No deficits noted. Tuberculosis screening: No symptoms or risk factors identified. Fall Risk Total Bell Fall Scale indicates No Risk (0-24 pts). Assessment: 17:20 Reassessment: Pt's son at bedside, pt remains in MRI. jl7 18:00 Reassessment: Pt returned from MRI, denies discomfort at this time. BGL 289, EKG done jl7 and ERD notified. VO to cancel labd. 18:45 Reassessment: ERD at bedside discussing results and POC. jl7 Vital Signs: 16:16 BP 194 / 74; Pulse 70; Resp 17; Temp 97.9; Pulse Ox 93% ; jl7 16:45 BP 191 / 71; Pulse 68; Resp 15; Pulse Ox 94% ; jl7 17:48 BP 187 / 63; Pulse 68; Resp 16; Pulse Ox 99% ; jl7 18:15 BP 182 / 72; Pulse 68; Resp 16; Pulse Ox 96% ; jl7 ED Course: 16:00 Arm band placed on right wrist. jl7 16:00 Patient has correct armband on for positive identification. Bed in low position. Call jl7 light in reach. Side rails up X2. Client placed on continuous cardiac and pulse oximetry monitoring. NIBP monitoring applied. 16:02 Patient arrived in ED. jl7 16:07 José Miguel Lynn MD is Attending Physician. rn 16:20 Missed attempt(s): 24 gauge in right hand. Bleeding controlled, band aid applied, jl7 catheter tip intact. 16:23 Triage completed. jl7 17:11 CT Head Brain wo Cont In Process Unspecified. EDMS 17:32 Brain Wo Cont MRI In Process Unspecified. EDMS 18:12 Brandt Barnes, RN is Primary Nurse. jl7 18:52 No provider procedures requiring assistance completed. Patient did not have IV access jl7 during this emergency room visit. Administered Medications: No medications were administered Medication: 18:45 VIS not applicable for this client. jl7 Outcome: 18:47 Discharge ordered by . rn 19:28 Discharged to home via wheelchair, with family. tw5 19:28 Condition: stable 19:28 Discharge instructions given to patient, family, Instructed on discharge instructions, follow up and referral plans. Demonstrated understanding of instructions, follow-up care. 19:28 Patient left the ED. tw5 Signatures: Dispatcher [employer] José Miguel Douglas MD MD rn Leal, Jahala, RN RN jl7 Bryn Mariofany tw5
--- NOTE | 2022-03-06 13:36 | EKG ---
Test Date: 2022-03-05 Test Time: 18:01:53 [employer] Worker: [place] MEASUREMENT RESULTS: Intervals: Rate: 69 IN: 182 QRSD: 102 QT: 462 QTc: 495 [place]: P: 64 IN: 182 QRS: 65 T: 119 INTERPRETIVE STATEMENTS: Normal sinus rhythm Possible Left atrial enlargement Nonspecific ST and T wave abnormality Prolonged QT Abnormal ECG Compared to ECG 08/01/2021 07:19:41 Prolonged QT interval now present Ventricular premature complex(es) no longer present Left ventricular hypertrophy no longer present Myocardial infarct finding no longer present Possible ischemia no longer present ST (T wave) deviation still present Electronically Signed On 03-06-22 13:34:44 CDT by Keegan Lara
[2022-03-06 14:22] VITALS: TEMP 97.9
[2022-03-06 14:38] VITALS: BP 182/72; O2SAT 96
== END 2022-03-05 19:28 | disposition home or self-care (01) ==
LOC: ER 16:01
DX: R41.82 Altered mental status, unspecified (principal); T50.905A Adverse effect of unspecified drugs, medicaments and biological substances, initial encounter; E11.22 Type 2 diabetes mellitus with diabetic chronic kidney disease; I13.2 Hypertensive heart and chronic kidney disease with heart failure and with stage 5 chronic kidney disease, or end stage renal disease; N18.6 End stage renal disease; Z99.2 Dependence on renal dialysis; Z79.4 Long term (current) use of insulin; Z79.82 Long term (current) use of aspirin
CPT/HCPCS: 70450; 70551; 82947; 93005; 99283

== ENCOUNTER 2022-06-27 15:44 | Emergency (ER) | payer OTHER ==
--- OUTSIDE RECORDS SUMMARY | 2022-06-27 16:00 | XMS REPORT | Continuity of Care Document ---
:1960 Author Organization [facility] t Address [address] [place] [address] Care Team Providers Name Role Phone Pcp, Patient Does Not Have A Primary Care Physician +[id number] Doctor Unassigned, [place] Attending Clinician Unavailable Shoaib [place] Attending Clinician Ariela Khalil Attending Clinician Ariela Khalil Admitting Clinician Payers Payer Name Policy Type Policy Number Effective Date Expiration Date Bibi Bryant C1 [id number] Common [employer] [facility] Problems Condition Condition Condition Status Onset Resolution Last Treating Co mments Source Name Details Category Date Date Treatment Clinician Date Amputated Amputated Disease Active 2018-06 Uni vers right leg right leg 2-13 ity of 00:00: [address] Thyroid Thyroid Disease Active 2018-06 [facility] nodule nodule 2-13 ity of 00:00: [address] Acquired Acquired Disease Active 2018-06 Unive rs hypothyroi hypothyroi 2-13 it y of dism dism 00:00: [place] [facility] 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-13 ity of mellitus mellitus 00:00: [place] with with 00 Medical diabetic diabetic Branch polyneurop polyneurop athy, athy, without without long-term long-term current current use of use of insulin insulin History of History of Disease Active 2018-06 U nivers cerebrovas cerebrovas 2-13 it y of cular cular 00:00: [place] disease disease 00 Medical Branch N N Active Diagnosis Active 2018-08-20 Memoria 07/13/201807-13 16:53:00 l MH 00:00: [place] 00 Cerebral Cerebral Problem Active 2020-06-10 Memoria hemorrhage hemorrhage 01:37:21 l (disorder) (disorder) He rmann Active Problem 06/10/2020 [facility] Diabetes Diabetes Problem Active 2020-06-10 Memoria mellitus mellitus 01:37:21 l (disorder) (disorder) He rmann Active Problem 06/10/2020 [facility] Dizziness Dizziness Problem Active 2020-06-10 Memoria (finding) (finding) 01:37:21 l Active [place] Problem 06/10/2020 [facility] 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 Me moria renal stage 01:37:21 l failure on renal Karthik n dialysis failure on (disorder) dialysis (disorder) Active Problem 06/10/2020 [facility] Headache Headache Problem Active 2020-06-10 Memoria (finding) (finding) 01:37:21 l Active [place] Problem 06/10/2020 [facility] Hypertensi Hypertens Problem [...] [facility] Lumbar Lumbar Problem Active 2020-06-10 [place] titus radiculopa radiculopa 01:37:21 l thy thy Vladimir (disorder) (disorder) Active Problem 06/10/2020 [facility] Paresthesi Paresthes Problem Active 2020-06-10 Memoria a ia 01:37:21 l (finding) (finding) Herm nilay Active Problem 06/10/2020 [facility] Peripheral Periphera Problem Active 2020-06-10 Memoria nerve l nerve 01:37:21 l disease disease [place] (disorder) (disorder) Active Problem 06/10/2020 [facility] Allergies, Adverse Reactions, Alerts Allergy Allergy Status Severity Reaction(s) Onset Inactive Treating Comm ents Source Name Type Date Date Clinician No Known DA Active [facility] Allergie 06-28 Clear s 00:00: [place] 00 [facility] Social History Social Habit Start Date Stop Date Quantity Comments Source Tobacco use and 2019-06-03 2019-06-03 Smokeless tobacco Un iversity of exposure 00:00:00 00:00:00 non-user [facility] Sex Assigned At [birth year] [facility] 00:00:00 00:00:00 [facility] Smoking Status Start Date Stop Date Source Unknown if ever smoked Common Sp dede [facility] Social History [facility] Medications Ordered Filled Start Stop Current Ordering Indication Dosage Frequency Signature Comments Components Source Medication Medication Date Date Medication? Clinician (SIG) Name Name JAN 2021-06 No GREGORIA(3) 0-04 TABLETA(S) 00:00: [place] 00 CON COMIDAS. TOMOvidio 2021-06 No GREGORIA(3) 0-04 TABLETA(S) 00:00: [place] 00 CON COMIDAS. TOME DIXIE No 4 (1) 8-11 TABLETA(S) [...] LA BOCA 00 AL ACOSTARSE. TOME DIXIE 0 No 10 (1) 8-11 TABLETA(S) 00:00: POR [...] DIXIE VEZ AL TAMIKO. Dose 2021-0 No 800 Unknown 8-10 00:00: 00 Dose 2021-0 No Unknown 8-10 00:00: 00 Dose 2021-0 No Unknown 8-10 00:00: 00 Dose 2021-0 No 4 Unknown 8-10 00:00: 00 Dose 2-0 No 6 Unknown 8-10 00:00: 00 Dose 2022-0 No Unknown 8-10 00:00: 00 INJECT 2022-0 No [id number] TWICE DAILY 8-10 PER SLIDING 00:00: SCALE. 00 Dose 2021-0 No 800 Unknown 8-10 00:00: 00 Dose 2022-0 No Unknown 8-10 00:00: 00 Dose 2-0 No Unknown 8-10 00:00: 00 Dose 2-0 No 4 Unknown 8-10 00:00: 00 Dose 2-0 No 6 Unknown 8-10 00:00: 00 Dose 2-0 No Unknown 8-10 00:00: 00 INJECT 2022-0 No [id number] TWICE DAILY 8-10 PER SLIDING 00:00: SCALE. 00 Dose 2021-0 No 800 Unknown 8-10 00:00: 00 Dose 2022-0 No Unknown 8-10 00:00: 00 Dose 2-0 No Unknown 8-10 00:00: 00 Dose 2022-0 No 4 Unknown 8-10 00:00: 00 Dose 2022-0 No 6 Unknown 8-10 00:00: 00 TOME DOS 2021-0 No 100 (2) 8-10 CAPSULA(S) 00:00: POR [place] 00 GREGORIA VECES AL TAMIKO. INJECT 2021-0 No [id number] TWICE DAILY 8-10 PER SLIDING 00:00: SCALE. 00 Dose 2021-0 No 800 Unknown 8-10 00:00: 00 Dose 2021-0 No Unknown 8-10 00:00: 00 Dose 2021-0 No Unknown 8-10 00:00: 00 Dose 2-0 No 4 Unknown 8-10 00:00: 00 Dose 2-0 No 6 Unknown 8-10 00:00: 00 TOME DOS 2021-0 No 100 (2) 8-10 CAPSULA(S) 00:00: POR [place] 00 GREGORIA VECES AL TAMIKO. INJECT 2021-0 No [id number] TWICE DAILY 8-10 PER SLIDING 00:00: SCALE. 00 TOME DIXIE 2021-0 No 50 (1) 8-09 TABLETA(S) 00:00: POR [place] 00 DIXIE VEZ AL TAMIKO. TOME DIXIE 2021-0 No 25 (1) 8-09 TABLETA(S) 00:00: POR [place] 00 DIXIE VEZ AL TAMIKO. &lt 2021-0 No 100 8-09 00:00: 00 TOME DIXIE 2021-0 No 50 (1) 8-09 TABLETA(S) 00:00: POR [place] 00 DIXIE VEZ AL TAMIKO. &lt 2021-0 No 100 8- 00:00: 00 Dose 2021-0 No Unknown 8 00:00: 00 APPLY TO 2021-0 No AFFECTED 8- AREA 30 00:00: MINUTES 00 BEFORE TREATMENT. TOME MEDIA 2021-0 No 25 (1/2) 8-09 TABLETA(S) 00:00: P[place] 00 DOS VECES AL TAMIKO. (6AM Y 6PM). TOME DIXIE 2021-0 No 25 (1) 8-09 TABLETA(S) 00:00: POR [place] 00 DIXIE VEZ AL TAMIKO. Dose 2021-0 No Unknown - 00:00: 00 TOME DIXIE 2021-0 No 50 (1) 8-09 TABLETA(S) 00:00: POR [place] 00 DIXIE VEZ AL TAMIKO. INJECT 2021-0 No UNDER THE - SKIN DAILY 00:00: DIRECTED 00 BY SLIDING SCALE (MAX DOSE OF 30 UNITS). TOME DIXIE 0 No 6 (1) 8-09 TABLETA(S) 00:00: POR [place] 00 DIARIO. TOME DIXIE 0 No 10 (1) 8-09 TABLETA(S) 00:00: POR [place] 00 AL ACOSTARSE. TOME DOS 0 No 100 (2) 8-09 CAPSULA(S) 00:00: POR [place] 00 GREGORIA VECES AL TAMIKO. TOME DIXIE No 50 (1) 8-09 TABLETA(S) 00:00: POR [place] B[place] 00 DIXIE VEZ AL TAMIKO. TOME DIXIE No 25 (1) 8-09 TABLETA(S) 00:00: POR [place] B[place] 00 DIXIE VEZ AL TAMIKO. &lt 0 No 100 8- 00:00: 00 TOME DIXIE 0 No 50 (1) 8-09 TABLETA(S) 00:00: POR [place] B[place] 00 DIXIE VEZ AL TAMIKO. &lt 0 No 100 - 00:00: 00 Dose 2021-0 No Unknown 01-28 00:00: 00 APPLY TO 2021-0 No AFFECTED - AREA 30 00:00: MINUTES 00 BEFORE TREATMENT. TOME MEDIA 2021-0 No 25 (1/2) 8-09 TABLETA(S) 00:00: POR [place] B[place] 00 DOS VECES AL TAMIKO. (6AM Y 6PM). TOME DIXIE 0 No 25 (1) 8-09 TABLETA(S) 00:00: POR [place] B[place] 00 DIXIE VEZ AL TAMIKO. Dose 2021-0 No Unknown - 00:00: 00 TOME DIXIE 2021-0 No 50 (1) 8-09 TABLETA(S) 00:00: POR [place] BOC[place] 00 DIXIE VEZ AL TAMIKO. INJECT 2021-0 No UNDER THE 8-09 SKIN DAILY 00:00: DIRECTED 00 BY SLIDING SCALE (MAX DOSE OF 30 UNITS). TOME DIXIE 0 No 6 (1) 8-09 TABLETA(S) 00:00: POR [place] B[place] 00 DIARIO. TOME DIXIE 0 No 10 (1) 8-09 TABLETA(S) 00:00: POR [place] B[place] 00 AL ACOSTARSE. TOME DOS 0 No 100 (2) 8-09 CAPSULA(S) 00:00: POR [place] B[place] 00 GREGORIA VECES AL TAMIKO. TOME DIXIE No 50 (1) 8-09 TABLETA(S) 00:00: POR [place] B[place] 00 DIXIE VEZ AL TAMIKO. TOME DIXIE No 25 (1) 8-09 TABLETA(S) 00:00: POR [place] B[place] 00 DIXIE VEZ AL TAMIKO. &lt 0 No 100 01-28 00:00: 00 TOME DIXIE 0 No 50 (1) 8-09 TABLETA(S) 00:00: POR LA BOC[place] 00 DIXIE VEZ AL TAMIKO. &lt 0 No 100 01-28 00:00: 00 Dose 2021-0 No Unknown 01-28 00:00: 00 APPLY TO 2021-0 No AFFECTED - AREA 30 00:00: MINUTES 00 BEFORE TREATMENT. TOME MEDIA No 25 (1/2) 8-09 TABLETA(S) 00:00: POR [place] B[place] 00 DOS VECES AL TAMIKO. (6AM Y 6PM). TOME DIXIE 0 No 25 (1) 8-09 TABLETA(S) 00:00: POR [place] B[place] 00 DIXIE VEZ AL TAMIKO. Dose 2021-0 No Unknown 01-28 00:00: 00 TOME DIXIE 0 No 50 (1) 8-09 TABLETA(S) 00:00: POR [place] B[place] 00 DIXIE VEZ AL TAMIKO. INJECT 2021-0 No UNDER THE 8-09 SKIN DAILY 00:00: DIRECTED 00 BY SLIDING SCALE (MAX DOSE OF 30 UNITS). TOME DIXIE 0 No 6 (1) 8-09 TABLETA(S) 00:00: POR [...] GREGORIA VECES AL TAMIKO. TOME DIXIE No 75 (1) 8-08 TABLETA(S) [...] VEZ AL TAMIKO. TOME DIXIE No (1) 7-26 TABLETA(S) 00:00: POR [place] BOCA 00 DIXIE VEZ AL TAMIKO. TOME DIXIE No 25 (1) 7-26 TABLETA(S) 00:00: POR LA BOCA 00 DIARIO. TOME DIXIE No 25 (1) 7-26 TABLETA(S) 00:00: POR LA BOCA 00 DIXIE VEZ AL TAMIKO. TOME DIXIE No (1) 7-26 TABLETA(S) 00:00: POR LA BOCA 00 DIXIE VEZ AL TAMIKO. TOME DIXIE No 25 (1) 7-26 TABLETA(S) 00:00: POR LA BOCA 00 DIARIO. TOME DIXIE No 25 (1) 7-26 TABLETA(S) 00:00: POR LA BOCA 00 DIXIE VEZ AL TAMIKO. TOME DIXIE No (1) 7-26 TABLETA(S) 00:00: POR LA BOCA 00 DIXIE VEZ AL TAMIKO. TOME DIXIE No 25 (1) 7-26 TABLETA(S) 00:00: POR LA BOCA 00 DIARIO. TOME DIXIE No 25 (1) 7-26 TABLETA(S) 00:00: POR LA BOC[place] 00 DIXIE VEZ AL TAMIKO. TOME DIXIE No 30 (1) 7-11 TABLETA(S) 00:00: POR LA B[place] 00 DIXIE VEZ AL TAMIKO. TOME DIXIE No 30 (1) 7-11 TABLETA(S) 00:00: POR LA BOCA 00 DIXIE VEZ AL TAMIKO. TOME DIXIE No 30 (1) 7-11 TABLETA(S) 00:00: POR LA BOCA 00 DIXIE VEZ AL TAMIKO. TOME DIXIE No 30 (1) 7-11 TABLETA(S) 00:00: POR [place] B[place] 00 DIXIE VEZ AL TAMIKO. benzonatate 2021-0 No 1mg 100 mg 7-01 capsule 00:00: 00 benzonatate 2021-0 No 1mg 100 mg 7-01 capsule 00:00: 00 TOME DIXIE 2021-0 No (1) 7-01 TABLETA(S) 00:00: POR [place] B[place] 00 DIXIE VEZ AL TAMIKO. TOME 0 No GREGORIA(3) 7- TABLETA(S) 00:00: POR [place] B[place] 00 CON COMIDAS. Dose 2021-0 No Unknown 12-20 00:00: 00 TOME DIXIE 2021-0 No (1) 7- TABLETA(S) 00:00: POR LA BOCA 00 AL ACOSTARSE. Dose 0 No Unknown 12-20 00:00: 00 INJECT PER 2021-0 No SLIDING 7-01 SCALE FOR 00:00: DIABETES. 00 MAX DOSE OF 30 UNITS. INJECT PER 0 No SLIDING 7-01 SCALE FOR 00:00: DIABETES. 00 MAX DOSE OF 30 UNITS. benzonatate 2021-0 No 1mg 100 mg 7- capsule 00:00: 00 benzonatate 2021-0 No 1mg 100 mg 7- capsule 00:00: 00 TOME DIXIE 2021-0 No (1) 7- TABLETA(S) 00:00: POR LA BOC[place] 00 DIXIE VEZ AL TAMIKO. TOME 0 No GREGORIA(3) - TABLETA(S) 00:00: POR LA BOCA 00 CON COMIDAS. Dose 2021-0 No Unknown 12-20 00:00: 00 TOME DIXIE 2021-0 No (1) 7- TABLETA(S) 00:00: POR LA BOCA 00 AL ACOSTARSE. Dose 2021-0 No Unknown 12-20 00:00: 00 INJECT PER 2021-0 No SLIDING 7-01 SCALE FOR 00:00: DIABETES. 00 MAX DOSE OF 30 UNITS. INJECT PER 2021-0 No SLIDING 7-01 SCALE FOR 00:00: DIABETES. 00 MAX DOSE OF 30 UNITS. benzonatate 2021-0 No 1mg 100 mg 7-01 capsule 00:00: 00 benzonatate 2021-0 No 1mg 100 mg 7-01 capsule 00:00: 00 TOME DIXIE 2021-0 No (1) 7- TABLETA(S) 00:00: POR LA BOCA 00 DIXIE VEZ AL TAMIKO. TOME 0 No GREGORIA(3) 7- TABLETA(S) 00:00: POR LA BOCA 00 CON COMIDAS. Dose 0 No Unknown 12-20 00:00: 00 TOME DIXIE 2021-0 No (1) 7- TABLETA(S) 00:00: POR LA BOCA 00 AL ACOSTARSE. Dose 0 No Unknown 12-20 00:00: 00 INJECT PER 0 No SLIDING 7- SCALE FOR 00:00: DIABETES. 00 MAX DOSE OF 30 UNITS. INJECT PER 0 No SLIDING 7- SCALE FOR 00:00: DIABETES. 00 MAX DOSE OF 30 UNITS. benzonatate No 1mg 100 mg 7- capsule 00:00: 00 benzonatate 2021-0 No 1mg 100 mg 7- capsule 00:00: 00 TOME DIXIE 2021-0 No (1) 7- TABLETA(S) 00:00: POR LA BOCA 00 DIXIE VEZ AL TAMIKO. TOME No GREGORIA(3) 7- TABLETA(S) 00:00: POR LA BOCA 00 CON COMIDAS. Dose 0 No Unknown 12-20 00:00: 00 TOME DIXIE 2021-0 No (1) 7- TABLETA(S) 00:00: POR LA BOCA 00 AL ACOSTARSE. Dose 0 No Unknown 12-20 00:00: 00 INJECT PER 2021-0 No SLIDING - SCALE FOR 00:00: DIABETES. 00 MAX DOSE OF 30 UNITS. INJECT PER 0 No SLIDING 7- SCALE FOR 00:00: DIABETES. 00 MAX DOSE OF 30 UNITS. benzonatate 2021-0 No 1mg 100 mg 7-01 capsule 00:00: 00 benzonatate 2021-0 No 1mg 100 mg 7-01 capsule 00:00: 00 TOME DIXIE 2021-0 No (1) 7-01 TABLETA(S) 00:00: POR LA BOCA 00 DIXIE VEZ AL TAMIKO. TOME 0 No GREGORIA(3) 7- TABLETA(S) 00:00: POR LA BOCA 00 CON COMIDAS. Dose No Unknown 12-20 00:00: 00 TOME DIXIE No (1) 7- TABLETA(S) 00:00: POR LA [...] BOCA 00 DIARIO. TOME DIXIE 2022-0 No (1) 6-21 TABLETA(S) 00:00: POR LA BOCA 00 DIARIO. TOME DIXIE No (1) 6-21 TABLETA(S) 00:00: POR LA BOCA 00 DIARIO. Lantus No 10(3 Solostar 6-11 mL) U-100 00:00: Insulin 100 00 unit/mL (3 mL) subcutaneou s pen Humulin R No unit/mL Regular 6-11 U-100 00:00: Insulin 100 00 unit/mL injection solution clopidogrel No 1mg 75 mg 6-11 tablet 00:00: 00 furosemide 0 No 1mg 20 mg 6-11 tablet 00:00: [...] BOCA 00 DIXIE VEZ AL TAMIKO. Lantus 2022-0 No 10(3 Solostar 6-11 mL) U-100 00:00: Insulin 100 00 unit/mL (3 mL) subcutaneou s pen Humulin R 2022-0 No unit/mL Regular 6-11 U-100 00:00: Insulin 100 00 unit/mL injection solution clopidogrel 2022-0 No 1mg 75 mg 6-11 tablet 00:00: 00 furosemide 2022-0 No 1mg 20 mg 6-11 tablet 00:00: 00 isosorbide 2022-0 No 1mg mononitrate 6-11 ER 30 mg 00:00: tablet,exte 00 nded release 24 hr metoprolol 2022-0 No 5mg tartrate 25 6-11 mg tablet 00:00: 00 Lantus 2022-0 No 10(3 Solostar 6-11 mL) U-100 00:00: Insulin 100 00 unit/mL (3 mL) subcutaneou s pen Humulin R 2022-0 No unit/mL Regular 6-11 U-100 00:00: Insulin 100 00 unit/mL injection solution clopidogrel 2-0 No 1mg 75 mg 6-11 tablet 00:00: 00 furosemide 2022-0 No 1mg 20 mg 6-11 tablet 00:00: 00 isosorbide 2022-0 No 1mg mononitrate 6-11 ER 30 mg 00:00: tablet,exte 00 nded release 24 hr metoprolol 2022-0 No 5mg tartrate 25 6-11 mg tablet 00:00: 00 atorvastati 2022-0 No 1mg n 40 mg 6-11 tablet 00:00: 00 TOME DIXIE 2-0 No (1) 6-11 TABLETA(S) 00:00: POR LA BOCA 00 DIXIE VEZ AL TAMIKO EN LA TARDE. atorvastati 2022-0 No 1mg n 40 mg 6-11 tablet 00:00: 00 TOME MEDIA 2022-0 No (1/2) - TABLETA(S) 00:00: POR LA BOCA 00 DOS VECES AL TAMIKO. (6AM Y 6PM). TOME DIXIE No (1) 11-30 TABLETA(S) 00:00: POR LA BOCA 00 DIXIE VEZ AL TAMIKO. TOME DIXIE No (1) 11-30 TABLETA(S) 00:00: POR LA BOCA 00 DIXIE VEZ AL TAMIKO. TOME DIXIE No (1) 11-30 PAQUETE(S) 00:00: POR LA BOCA 00 GREGORIA VECES AL TAMIKO CON COMIDAS. TOME DIXIE No (1) 11-30 PAQUETE(S) 00:00: POR LA BOCA 00 GREGORIA VECES AL TAMIKO CON COMIDAS. TOME DIXIE No (1) 11-30 TABLETA(S) 00:00: POR LA BOCA 00 DIXIE VEZ AL TAMIKO. TOME DIXIE No (1) 11-30 TABLETA(S) 00:00: POR LA BOCA 00 DIXIE VEZ AL TAMIKO. TOME DIXIE No (1) 11-30 TABLETA(S) 00:00: POR LA BOCA 00 DIXIE VEZ AL TAMIKO. TOME DIXIE No (1) 11-30 TABLETA(S) 00:00: POR LA BOCA 00 DIXIE VEZ AL TAMIKO EN LA TAR[place]. TOME MEDIA No (1/2) - TABLETA(S) 00:00: POR LA BOCA 00 DOS VECES AL TAMIKO. (6AM Y 6PM). TOME DIXIE No (1) 11-30 TABLETA(S) 00:00: POR LA BOCA 00 DIXIE VEZ AL TAMIKO. TOME DIXIE No (1) 11-30 TABLETA(S) 00:00: POR LA BOCA 00 DIXIE VEZ AL TAMIKO. TOME DIXIE No (1) 11-30 PAQUETE(S) 00:00: POR LA BOCA 00 GREGORIA VECES AL TAMIKO CON COMIDAS. TOME DIXIE No (1) 11-30 PAQUETE(S) 00:00: POR LA BOCA 00 GREGORIA [...] 20 mg 6-11 tablet 00:00: 00 isosorbide 0 No 1mg mononitrate 6-11 ER 30 mg [...] VECES AL TAMIKO CON COMIDAS. TOME DIXIE 0 No (1) 6-11 PAQUETE(S) 00:00: POR LA BOCA 00 GREGORIA VECES AL TAMIKO CON COMIDAS. TOME DIXIE 0 No (1) 6-11 TABLETA(S) 00:00: POR LA BOCA 00 DIXIE VEZ AL TAMIKO. TOME DIXIE 0 No (1) 6-11 TABLETA(S) 00:00: POR LA BOCA 00 DIXIE VEZ AL TAMIKO. TOME DIXIE 0 No (1) 6-11 TABLETA(S) 00:00: POR [place] BOC[place] 00 DIXIE VEZ AL TAMIKO. Dose 2-0 No Unknown 1-06 00:00: 00 Dose 2-0 No Unknown 1-06 00:00: 00 amlodipine 2022-0 [...] Dose 2-0 No Unknown 1-06 00:00: 00 amlodipine 2022-0 [...] 25 mcg 1-06 tablet 00:00: 00 amlodipine 2021-1 No 1mg 10 mg 0-13 tablet 00:00: 00 carvedilol 2021-1 No 1mg 25 mg 0-13 tablet 00:00: 00 hydralazine 2021-1 No 1mg 50 mg 0-13 tablet 00:00: [...] mcg 0-13 tablet 00:00: 00 Humulin R 2021-0 No [...] injection solution Lantus 1-0 No 10(3 Solostar 6-05 mL) U-100 00:00: [...] 40 mg 4-28 tablet 00:00: 00 levothyroxi 1-0 No 1mcg ne 25 mcg 4-28 tablet 00:00: 00 Humulin R 2021-0 No unit/mL Regular 2-03 U-100 00:00: Insulin 100 00 unit/mL injection solution Humulin R 2021-0 No unit/mL Regular 2-03 U-100 00:00: Insulin 100 00 unit/mL injection solution Lantus 2021-0 No 10(3 Solostar 2-03 mL) U-100 00:00: Insulin 100 00 unit/mL (3 mL) subcutaneou s pen lisinopril 1-0 No 1mg 40 mg 2-03 tablet 00:00: 00 Lantus 2021-0 No 10(3 Solostar 2-03 mL) U-100 00:00: Insulin 100 00 unit/mL (3 mL) subcutaneou s pen clopidogrel 1-0 No 1mg 75 mg 2-03 tablet 00:00: 00 atorvastati 2021-0 No 1mg n 40 mg 2-03 tablet 00:00: 00 amlodipine 2021-0 No 1mg 10 mg 2-03 tablet 00:00: 00 carvedilol 2021-0 No 1mg 25 mg 2-03 tablet 00:00: 00 levothyroxi 2021-0 No 1mcg ne 25 mcg 2-03 tablet 00:00: 00 lisinopril 2021-0 No 1mg 40 mg 2-03 tablet 00:00: 00 clopidogrel 2021-0 No 1mg 75 mg 2-03 tablet 00:00: 00 atorvastati 2021-0 No 1mg n 40 mg 2-03 tablet 00:00: 00 amlodipine 2021-0 No 1mg 10 mg 2-03 tablet 00:00: 00 carvedilol 2021-0 No 1mg 25 mg 2-03 tablet 00:00: 00 levothyroxi 2021-0 No 1mcg ne 25 mcg 2-03 tablet [...] 25 mg 2-03 tablet 00:00: 00 levothyroxi 2021-0 No 1mcg ne 25 mcg 2-03 tablet 00:00: 00 Humulin R 2021-0 No unit/mL Regular 2-03 U-100 00:00: Insulin 100 00 unit/mL injection solution Lantus 1-0 No 10(3 Solostar 2-03 mL) U-100 00:00: Insulin 100 00 unit/mL (3 mL) subcutaneou s pen lisinopril 1-0 No 1mg 40 mg 2-03 tablet 00:00: 00 clopidogrel 1-0 No 1mg 75 mg 2-03 tablet 00:00: 00 atorvastati 1-0 No 1mg n 40 mg 2-03 tablet 00:00: 00 amlodipine 1-0 No 1mg 10 mg 2-03 tablet 00:00: 00 carvedilol 2021-0 No 1mg 25 mg 2-03 tablet 00:00: 00 levothyroxi 2021-0 No 1mcg ne 25 mcg 2-03 tablet [...] 10 mg 2-03 tablet 00:00: 00 carvedilol 2020-0 No 1mg 25 mg 2-03 tablet 00:00: 00 levothyroxi 2020-0 No 1mcg ne 25 mcg 2-03 tablet [...] mcg 2-21 tablet 00:00: 00 Humulin R 2019-1 No unit/mL Regular 0-28 U-100 00:00: Insulin 100 00 unit/mL injection solution Lantus 2019- No 5(3 mL) Solostar 0-28 U-100 00:00: Insulin 100 00 unit/mL (3 mL) subcutaneou s pen Lantus 2019-1 No 10(3 Solostar 0-28 mL) U-100 00:00: Insulin 100 00 unit/mL (3 mL) subcutaneou s pen amlodipine 2019-1 No 1mg 10 mg 0-28 tablet 00:00: 00 carvedilol 2019-1 No 1mg 25 mg 0-28 tablet 00:00: 00 lisinopril 2019-1 No 1mg 20 mg 0-28 tablet 00:00: 00 clopidogrel 2019-1 No 1mg 75 mg 0-28 tablet 00:00: [...] 10 mg 0-28 tablet 00:00: 00 carvedilol 2019-1 No 1mg 25 mg 0-28 tablet 00:00: [...] mg 0-28 tablet 00:00: 00 Humulin R 2019-1 No unit/mL Regular 0-28 U-100 00:00: Insulin 100 00 unit/mL injection solution Lantus 2020-1 No 5(3 mL) Solostar 0-28 U-100 00:00: Insulin 100 00 unit/mL (3 mL) subcutaneou s pen Lantus 2020-1 No 10(3 Solostar 0-28 mL) U-100 00:00: Insulin 100 00 unit/mL (3 mL) subcutaneou s pen amlodipine 2019-1 No 1mg 10 mg 0-28 tablet 00:00: 00 carvedilol 2019-1 No 1mg 25 mg 0-28 tablet 00:00: [...] tab, PO, l tablet 20:33: Daily, 0 [place] 00 Refill(s) Aspirin 81 2020-0 Yes 81 mg = 1 Me moria MG Enteric 5-28 tab, PO, l Coated 20:33: Daily, # [place] Tablet 00 90 tab, 3 Refill(s) atorvastati [...] tab, PO, l tablet 20:33: Daily, 0 [place] 00 Refill(s) cyclobenzap 2020-0 Yes 10 mg = 1 M emoria rine 10 mg 5-28 tab, PO, l oral tablet 20:33: TID, 0 Herm nilay 00 Refill(s) Fluticasone 2020-0 Yes NASAL, [place] titus propionate 5-28 Daily, 0 l 0.05 20:33: Refill(s) Vladimir MG/ACTUAT 00 Metered Dose Nasal [place] gabapentin 2020-0 Yes 100 mg = 1 [...] titus 5-28 SUB-Q, l 20:33: ONCE, 0 [place] 00 Refill(s) Levothyroxi 2020-0 Yes 25 Memori a ne Sodium 5-28 microgram l 0.025 MG 20:33: = 1 tab, Jossie nn Oral Tablet 00 PO, Daily, [Synthroid] 0 Refill(s) gabapentin 2020-0 Yes 100 mg = 1 [...] titus 5-28 SUB-Q, l 20:33: ONCE, 0 [place] 00 Refill(s) Levothyroxi 2020-0 Yes 25 Memori a ne Sodium 5-28 microgram l 0.025 MG 20:33: = 1 tab, Jossie nn Oral Tablet 00 PO, Daily, [Synthroid] 0 Refill(s) amLODIPine 2020-0 Yes 10 mg = 1 Me moria 10 mg oral 5-28 tab, PO, l tablet 20:33: Daily, 0 [place] 00 Refill(s) Aspirin 81 2020-0 Yes 81 mg = 1 Me moria MG Enteric 5-28 tab, PO, l Coated 20:33: Daily, # [place] Tablet 00 90 tab, 3 Refill(s) atorvastati [...] Refill(s) Vladimir MG/ACTUAT 00 Metered Dose Nasal [place] gabapentin 2020-0 Yes 100 mg = 1 M emoria 100 MG Oral 5-28 cap, PO, l Capsule 20:33: Bedtime, 0 Herm Refill(s) Insulin 2020-0 Yes 10 unit, Memori a Glargine 5-28 SUB-Q, l 100 UNT/ML 20:33: Bedtime, # H ermann Injectable 00 10 mL, 0 Solution Refill(s) [Lantus] Novolin R 2020-0 Yes 12 unit, [place] titus 5-28 SUB-Q, l 20:33: ONCE, 0 [place] 00 Refill(s) Levothyroxi 2020-0 Yes 25 Memori [...] l oral tablet 20:33: Daily, 0 He rm 00 Refill(s) carvedilol 2020-0 Yes 25 mg = 1 Me moria 25 mg oral 5-28 tab, PO, l tablet 20:33: BID, 0 [place] 00 Refill(s) clopidogrel 2020-0 Yes 75 mg = 1 M emoria 75 mg oral 5-28 tab, PO, l tablet 20:33: Daily, 0 [place] 00 Refill(s) cyclobenzap 2020-0 Yes 10 mg = 1 M emoria rine 10 mg 5-28 tab, PO, l oral tablet 20:33: TID, 0 Refill(s) Fluticasone 2020-0 Yes NASAL, [place] titus propionate 5-28 Daily, 0 l 0.05 20:33: Refill(s) [place] MG/ACTUAT 00 Metered Dose [place] acetaminoph 2020-0 No 1mg en ER 650 [...] Insulin 100 00 unit/mL injection solution amlodipine 2019-0 No 1mg 10 mg 2-04 tablet 00:00: 00 carvedilol 2019-0 No 1mg 25 mg 2-04 tablet 00:00: 00 lisinopril 2019-0 No 1mg 20 mg 2-04 tablet 00:00: 00 clopidogrel 2019-0 No 1mg 75 mg 2-04 tablet 00:00: 00 atorvastati 0 No 1mg n 40 mg 2-04 tablet 00:00: 00 levothyroxi 0 No 1mcg ne 25 mcg 2-04 tablet 00:00: 00 levothyroxi 2018-06 Yes 25ug Take 25 Uni vers ne 25 mcg 2-13 mcg by ity of tablet 10:28: mouth [place] [address] every Medical morning. Branch clopidogrel 2018-06 Yes 75mg Take 75 mg [facility] 75 mg 2-13 by mouth ity of tablet 10:28: daily. [place] [address] Medical Branch atorvastati 2018-06 Yes 40mg Take 40 mg [facility] n 40 mg 2-13 by mouth ity of tablet 10:28: at [place] [address] bedtime. Medical Branch gabapentin 2018-06 Yes 100mg Take 100 Un jen 100 mg 2-13 mg by ity of capsule 10:28: mouth 3 [place] [address] (three) Medical times Branch daily. glimepiride 2018-06 Yes 1mg Take 1 mg U nivers 1 mg tablet 2-13 by mouth ity of 10:28: daily with [place] [address] breakfast. Medical Branch BABY 2018-06 Yes Take by [facility] ASPIRIN 2-13 mouth. ity of ORAL 10:28: [place] [address] Medical Branch furosemide 2018-06 No 1mg 20 mg 1-26 tablet 00:00: 00 furosemide 2018-06 No 1mg 20 mg 1-26 tablet 00:00: 00 furosemide 2018-06 No 1mg 20 mg 1-26 tablet 00:00: 00 furosemide 2018-06 No 1mg 20 mg 1-26 tablet 00:00: 00 furosemide 2018-06 No 1mg 20 mg 1-26 tablet 00:00: 00 Humulin R 2018- No 12unit/ Regular 1-06 mL U-100 00:00: Insulin 100 00 unit/mL injection solution Lantus 2018-06 No 20(3 Solostar 1-06 mL) U-100 00:00: Insulin 100 00 unit/mL (3 mL) subcutaneou s pen amlodipine 2018- No 1mg 10 mg 1-06 tablet 00:00: 00 carvedilol 2018- No 1mg 25 mg 1-06 tablet 00:00: 00 lisinopril 2018- No 1mg 20 mg 1-06 tablet 00:00: 00 clopidogrel 2018- No 1mg 75 mg 1-06 tablet 00:00: 00 atorvastati 2018- No 1mg n 40 mg 1-06 tablet 00:00: 00 levothyroxi 2018-06 No 1mcg ne 25 mcg 1-06 tablet 00:00: 00 Humulin R 2018- No 12unit/ Regular 1-06 mL U-100 00:00: Insulin 100 00 unit/mL injection solution Lantus 2018- No 20(3 Solostar 1-06 mL) U-100 00:00: Insulin 100 00 unit/mL (3 mL) subcutaneou s pen amlodipine 2018- No 1mg 10 mg 1-06 tablet 00:00: 00 carvedilol 2018- No 1mg 25 mg 1-06 tablet 00:00: 00 lisinopril 2018- No 1mg 20 mg 1-06 tablet 00:00: 00 clopidogrel 2018- No 1mg 75 mg 1-06 tablet 00:00: 00 atorvastati 2018-06 No 1mg n 40 mg 1-06 tablet 00:00: 00 levothyroxi 2018-06 No 1mcg ne 25 mcg 1-06 tablet 00:00: 00 Humulin R 2018- No 12unit/ Regular 1-06 mL U-100 00:00: Insulin 100 00 unit/mL injection solution Lantus 2018-06 No 20(3 Solostar 1-06 mL) U-100 00:00: Insulin 100 00 unit/mL (3 mL) subcutaneou s pen amlodipine 2018- No 1mg 10 mg 1-06 tablet 00:00: 00 carvedilol 2018- No 1mg 25 mg 1-06 tablet 00:00: 00 lisinopril 2018- No 1mg 20 mg 1-06 tablet 00:00: 00 clopidogrel 2018- No 1mg 75 mg 1-06 tablet 00:00: 00 atorvastati 2018- No 1mg n 40 mg 1-06 tablet 00:00: 00 levothyroxi 2019-1 No 1mcg ne 25 mcg 1-06 tablet 00:00: 00 Humulin R 2019-1 No 12unit/ Regular 1-06 mL U-100 00:00: Insulin 100 00 unit/mL injection solution Lantus 2018- No 20(3 Solostar 1-06 mL) U-100 00:00: [...] Insulin 100 00 unit/mL injection solution Lantus 2018- No 20(3 Solostar 1-06 mL) U-100 00:00: Insulin 100 00 unit/mL (3 mL) subcutaneou s pen amlodipine 2018-1 No 1mg 10 mg 1-06 tablet 00:00: 00 carvedilol 2018-1 No 1mg 25 mg 1-06 tablet 00:00: 00 lisinopril 2019-1 No 1mg 20 mg 1-06 tablet 00:00: 00 clopidogrel 2019-1 No 1mg 75 mg 1-06 tablet 00:00: 00 atorvastati 2019-1 No 1mg n 40 mg 1-06 tablet [...] 20 mg 9-17 tablet 00:00: 00 carvedilol 2019-0 No 1mg [...] 1mg 10 mg 7-10 tablet 00:00: 00 Humulin R 2019-0 No 12unit/ [...] glimepiride 2019-0 No 1mg 1 mg tablet 7- 00:00: 00 hydroxyzine 2019-0 No 1mg HCl [...] glimepiride 2019-0 No 1mg 1 mg tablet 7 00:00: 00 hydroxyzine 2019-0 No 1mg HCl [...] glimepiride 2019-0 No 1mg 1 mg tablet 7 00:00: 00 hydroxyzine 2019-0 No 1mg HCl [...] 1mg 100 mg 7-03 capsule 00:00: 00 furosemide 2019-0 No 1mg 20 [...] 25 mg 1-08 tablet 00:00: 00 levothyroxi 2019-0 No 1mcg ne 25 mcg 1-03 tablet 00:00: 00 levothyroxi 2019-0 No 1mcg ne 25 mcg 1-03 tablet 00:00: 00 levothyroxi 2019-0 No 1mcg ne 25 mcg 1-03 tablet 00:00: 00 levothyroxi 2019-0 No 1mcg ne 25 mcg 1-03 tablet 00:00: 00 levothyroxi 2019-0 No 1mcg ne 25 mcg 1-03 tablet 00:00: 00 Lantus 2018-1 No 10unit/ U-100 2-13 mL Insulin 100 00:00: unit/mL 00 subcutaneou s solution Novolin R 2018-1 No 12unit/ Regular 2-13 mL U-100 00:00: Insulin 100 00 unit/mL injection solution Lantus 2017-1 No 10unit/ U-100 2-13 mL Insulin 100 00:00: unit/mL 00 subcutaneou s solution Novolin R 2018-1 No 12unit/ Regular 2-13 mL U-100 00:00: Insulin 100 00 unit/mL injection solution Lantus 2018-1 No 10unit/ U-100 2-13 mL Insulin 100 00:00: unit/mL 00 subcutaneou s solution Novolin R 2018-1 No 12unit/ Regular 2-13 mL U-100 00:00: Insulin 100 00 unit/mL injection solution Lantus 2018-1 No 10unit/ U-100 2-13 mL Insulin 100 [...] 10 mg 2-12 tablet 00:00: 00 cyclobenzap 2017-06 No 1mg rine 10 mg 2-12 tablet 00:00: 00 furosemide 2017-06 No 1mg 20 mg 2-12 tablet 00:00: 00 isosorbide 2017-06 No 1mg dinitrate 2-12 30 mg 00:00: tablet 00 levothyroxi 2017-06 No 1mcg ne 25 mcg 2-12 tablet 00:00: 00 hydralazine 2017-06 No 1mg 25 mg 2-12 tablet 00:00: 00 lisinopril 2017-06 No 1mg 10 mg 2-12 tablet 00:00: 00 cyclobenzap 2017-06 No 1mg rine 10 mg 2-12 tablet 00:00: 00 furosemide 2017-06 No 1mg 20 mg 2-12 tablet 00:00: 00 isosorbide 2017-06 No 1mg dinitrate 2-12 30 mg 00:00: tablet 00 levothyroxi 2017-06 No 1mcg ne 25 mcg 2-12 tablet 00:00: 00 hydralazine 2017-06 No 1mg 25 mg 2-12 tablet 00:00: 00 lisinopril 2017-06 No 1mg 10 mg 2-12 tablet 00:00: 00 cyclobenzap 2017-06 No 1mg rine 10 mg 2-12 tablet 00:00: 00 furosemide 2017-06 No 1mg 20 mg 2-12 tablet 00:00: 00 isosorbide 2017-06 No 1mg dinitrate 2-12 30 mg 00:00: tablet 00 levothyroxi 2017-06 No 1mcg ne 25 mcg 2-12 tablet 00:00: 00 hydralazine 2017-06 No 1mg 25 mg 2-12 tablet 00:00: 00 lisinopril 2018- No 1mg 10 mg 2-12 tablet 00:00: [...] 25 mg 2-11 tablet 00:00: 00 amlodipine 2017-1 No 1mg 10 mg 2-11 tablet 00:00: 00 carvedilol 2017- No 1mg 25 mg 2-11 tablet 00:00: 00 amlodipine 2017- No 1mg 10 mg 2-11 tablet 00:00: 00 carvedilol 2017- No 1mg 25 mg 2-11 tablet 00:00: 00 gabapentin 2017- No 1mg 100 [...] mg 1-21 tablet 00:00: 00 Novolin R 2017- No unit/mL Regular 1-16 U-100 00:00: Insulin 100 00 unit/mL injection solution Novolin R 2017- No 12unit/ Regular 1-16 mL U-100 00:00: Insulin 100 00 unit/mL injection solution Novolin R 2017- No unit/mL Regular 1-16 U-100 00:00: Insulin 100 00 unit/mL injection solution Novolin R 2017- No 12unit/ Regular 1-16 mL U-100 00:00: Insulin 100 00 unit/mL injection solution Novolin R 2017- No unit/mL Regular 1-16 U-100 00:00: Insulin 100 00 unit/mL injection solution Novolin R 2017- No 12unit/ Regular 1-16 mL U-100 00:00: Insulin 100 00 unit/mL injection solution Novolin R 2017- No unit/mL Regular 1-16 U-100 00:00: Insulin 100 00 unit/mL injection solution Novolin R 2017- No 12unit/ Regular 1-16 mL U-100 00:00: Insulin 100 00 unit/mL injection solution Novolin R 2017- No unit/mL Regular 1-16 U-100 00:00: Insulin 100 00 unit/mL injection solution Novolin R 2017- No 12unit/ Regular 1-16 mL U-100 00:00: Insulin 100 00 unit/mL injection solution hydralazine 2017- No 1mg 25 mg 0-31 tablet 00:00: 00 hydralazine 2017- No 1mg 25 mg 0-31 tablet 00:00: 00 hydralazine 2017- No 1mg 25 mg 0-31 tablet 00:00: 00 hydralazine 2018-1 No 1mg 25 mg 0-31 tablet 00:00: 00 hydralazine 2018-1 No 1mg 25 mg 0-31 tablet 00:00: [...] 100 00 unit/mL injection solution Novolin R 2017-0 No 12unit/ Regular 9-04 mL U-100 00:00: Insulin 100 00 unit/mL injection solution Novolin R 2017-0 No 12unit/ Regular 9-04 mL U-100 00:00: Insulin 100 00 unit/mL injection solution Novolin R 2017-0 No 12unit/ Regular 9-04 mL U-100 00:00: [...] tablet,exte 00:00: nded 00 release 24 hr Humulin N 2018-0 No 1unit/m NPH U-100 [...] 1mcg 25 mcg 7-19 tablet 00:00: 00 Humulin N 2018-0 No 1unit/m [...] 1mg 100 mg 7-19 capsule 00:00: 00 amlodipine 2018-0 No 1mg 5 [...] dinitrate 7-05 30 mg 00:00: tablet 00 Clopidogrel Clopidogrel Yes Tre TOME DIXIE Common Bisulfate Bisulfate Syed (1) Spiri t TABLETA(S) [facility] Tramadol Tramadol Yes Tre (Schedule Common HCl HCl Syed IV Drug) Otoniel TOME DIXIE - [facility] TABLETA[facility] SEIS [place] N[place] PARA DOLOR. Acetaminoph Acetaminoph Yes Tre (Schedule Common en-Codeine en-Codeine Syed III Drug) Otonile #3 #3 TOME DIXIE - [facility] TABLETA(S[facility] SEIS [facility] PARA DOLOR. [...] DE - [facility] LA PIEL [facility] CADA [facility] Center Carvedilol Carvedilol Yes Tre ONTIVEROSE DIXIE Common Syed (1) Spirit TABLETA(S) - [facility] Humulin R Humulin R Yes Tre INJECT Common Syed TWELVE Spirit (12) UNITS - [facility] DIRECTED Center AND USE SLIDING SCALE UP TO MAX DAILY DOSE OF 40 UNITS. Furosemide Furosemide Yes Tre TOME DIXIE Common Syed (1) Spirit TABLETA(S) - [facility] Lidocaine-P Lidocaine-P Yes Tre APLIQUE Common rilocaine rilocaine Syed DIXIE (1) Sp dede HORA ANTES - [facility] DEL [facility]IALIS[facility] VEC[facility] Medical A LA Center SEMANA. Amlodipine Amlodipine Yes Tre TOME DIXIE Common Besylate Besylate Syed (1) Spirit TABLETA(S) - [facility] DIXIE [facility] Humulin R Humulin R No Humulin R 100 UNIT/ML 100 UNIT/ML 100 UNIT/ML Clopidogrel Clopidogrel No Clopidogre Bisulfate Bisulfate l 75 MG 75 MG Bisulfate 75 MG Lidocaine-P Lidocaine-P No Lidocaine- rilocaine rilocaine Prilocaine 2.5-2.5 % 2.5-2.5 % 2.5-2.5 % Lisinopril Lisinopril No Lisinopril 20 MG 20 MG 20 MG Lantus Lantus No Lantus SoloStar SoloStar SoloStar 100 UNIT/ML 100 UNIT/ML 100 UNIT/ML Atorvastati Atorvastati No Atorvastat n Calcium n Calcium in Calcium 40 MG 40 MG 40 MG Levothyroxi Levothyroxi No Levothyrox ne Sodium ne Sodium ine Sodium 25 MCG 25 MCG 25 MCG Amlodipine Amlodipine No Amlodipine Besylate 10 Besylate 10 Besylate MG MG 10 MG Atorvastati Atorvastati Yes Tre TOME DIXIE Common n Calcium n Calcium Syed (1) Spiri t TABLETA(S) - [facility] DIXIE [place] [facility] Immunizations Ordered Immunization Filled Immunization Date Status Commen ts Source Name Name Jackson JEROMEID-19 2020-10-04 Completed Vaccine 00:00:00 Moderna COVID-19 2020-10-04 [...] Time Observation Value Comments Source BP Systolic 2022-05-14 16:22:00 134 mm[Hg] BP Diastolic 2022-05-14 16:22:00 68 mm[Hg] Weight Measured 2022-05-14 16:22:00 120.80 pounds Height Measured 2022-05-14 16:22:00 63.00 inches Body Temperature 2022-05-14 16:22:00 97.90 degrees Heart Rate 2022-05-14 16:22:00 74.00 /min Respiratory Rate 2022-05-14 16:22:00 BP Systolic 2022-02-17 17:22:00 159 mm[Hg] BP [...] /min Systolic (mm Hg) 2020-06-07 15:31:00 Weston rial Vladimir Diastolic (mm Hg) 2020-06-07 15:31:00 Mem orial Vladimir Heart Rate 2020-06-07 15:31:00 [facility] Respitory Rate 2020-06-07 15:31:00 Memori al Vladimir Height 2020-06-07 15:31:00 154.94 cm [facility] Weight 2020-06-07 15:31:00 [facility] BMI Calculated 2020-06-07 15:31:00 [facility] [place] BP Systolic 2020-04-18 15:07:00 168 mm[Hg] BP Diastolic 2020-04-18 15:07:00 69 mm[Hg] Weight Measured 2020-04-18 15:07:00 126.80 pounds Height Measured 2020-04-18 15:07:00 63.00 inches Body Temperature 2020-04-18 15:07:00 98.30 degrees Heart Rate 2020-04-18 15:07:00 77.00 /min Respiratory Rate 2020-04-18 15:07:00 18.00 /min Systolic (mm Hg) 2020-04-05 19:29:00 Weston rial Vladimir Diastolic (mm Hg) 2020-04-05 19:29:00 Mem orial Vladimir Heart Rate 2020-04-05 19:29:00 [facility] Respitory Rate 2020-04-05 19:29:00 Memori al Vladimir Systolic (mm Hg) 2020-02-23 20:37:00 [place] rial Vladimir Diastolic (mm Hg) 2020-02-23 20:37:00 Mem orial Vladimir Heart Rate 2020-02-23 20:37:00 [facility] Respitory Rate 2020-02-23 20:37:00 [facility] [place] Temperature Oral (F) 2020-02-23 20:37:00 98.3 F [facility] [place] Height 2020-02-23 20:37:00 157.48 cm [facility] [place] Weight 2020-02-23 20:37:00 [facility] [place] BMI Calculated 2020-02-23 20:37:00 Memori al Vladimir BP Systolic 2020-01-09 17:09:00 159 mm[Hg] BP Diastolic 2020-01-09 17:09:00 75 mm[Hg] Weight Measured 2020-01-09 17:09:00 132.80 pounds Height Measured 2020-01-09 17:09:00 63.00 inches Body Temperature 2020-01-09 17:09:00 98.10 degrees Heart Rate 2020-01-09 17:09:00 85.00 /min Respiratory Rate 2020-01-09 17:09:00 17.00 /min Systolic (mm Hg) 2020-01-05 20:43:00 [place] rial [place] Diastolic (mm Hg) 2020-01-05 20:43:00 Mem orial [place] Heart Rate 2020-01-05 20:43:00 [facility] Respitory Rate 2020-01-05 20:43:00 [facility] [place] Temperature Oral (F) 2020-01-05 20:43:00 99.1 F [facility] Height 2020-01-05 20:43:00 160.02 cm [facility] Weight 2020-01-05 20:43:00 [facility] [place] BMI Calculated 2020-01-05 20:43:00 [facility] [place] BP Systolic 2019-11-19 12:06:00 213 mm[Hg] BP [...] /min Systolic (mm Hg) 2019-11-17 20:14:00 [place] rial Vladimir Diastolic (mm Hg) 2019-11-17 20:14:00 Mem orial Vladimir Heart Rate 2019-11-17 20:14:00 [facility] Respitory Rate 2019-11-17 20:14:00 Memori al Vladimir Height 2019-11-17 20:14:00 160.02 cm [facility] [place] Weight 2019-11-17 20:14:00 [facility] BMI Calculated 2019-11-17 20:14:00 Memori al Vladimir [...] Procedure Date / Time Performed [facility]forming [facility] 05:01:00 Doctor Unassigned, No Univer [facility] REQUEST/RESPONSE Name Medical Branch BKA - Below knee [facility] Karthik n amputation Plan of Care Planned Activity Planned Date Details Comments Source Goal Plan of Care Note [code = 32839-5] Goal Plan of Care Note [code = 73156-6] Goal Plan of Care Note [code = 95034-3] Goal Plan of Care Note [code = 77088-3] Goal Plan of Care Note [code = 64180-4] Goal Plan of Care Note [code = 79820-7] Goal Plan of Care Note [code = 92661-1] Goal Plan of Care Note [code = 28221-5] Goal Plan of Care Note [code = 31674-9] Goal Plan of Care Note [code = 72063-5] Goal Plan of Care Note [code = 16454-8] Goal Plan of Care Note [code = 70977-2] Goal Plan of Care Note [code = 00531-7] Goal Plan of Care Note [code = 68104-0] Goal Plan of Care Note [code = 82992-6] Goal Plan of Care Note [code = 51508-3] Goal Plan of Care Note [code = 50498-7] Goal Plan of Care Note [code = 68143-8] Goal Plan of Care Note [code = 03296-7] Goal Plan of Care Note [code = 73712-5] Goal Plan of Care Note [code = 75611-6] Goal Plan of Care Note [code = 05281-3] Goal Plan of Care Note [code = 62048-1] Goal Plan of Care Note [code = 79198-9] Goal Plan of Care Note [code = 64340-3] Goal Plan of Care Note [code = 02763-3] Goal Plan of Care Note [code = 15919-5] Goal Plan of Care Note [code = 97322-7] Goal Plan of Care Note [code = 95907-9] Goal Plan of Care Note [code = 70999-9] Goal Plan of Care Note [code = 44611-7] Goal Plan of Care Note [code = 16663-0] Goal Plan of Care Note [code = 23642-7] Goal Plan of Care Note [code = 80243-7] Goal Plan of Care Note [code = 51004-9] Goal Plan of Care Note [code = 24340-6] Goal Plan of Care Note [code = 81055-7] Goal Plan of Care Note [code = 19474-8] Goal Plan of Care Note [code = 82118-3] Goal Plan of Care Note [code = 73361-4] Goal Plan of Care Note [code = 56019-8] Goal Plan of Care Note [code = 78760-3] Goal Plan of Care Note [code = 65999-9] Goal Plan of Care Note [code = 14921-0] Goal Plan of Care Note [code = 80576-2] Goal Plan of Care Note [code = 87924-2] Goal Plan of Care Note [code = 87765-0] Goal Plan of Care Note [code = 41691-1] Goal Plan of Care Note [code = 32977-3] Goal Plan of Care Note [code = 13637-5] Goal Plan of Care Note [code = 88875-0] Goal Plan of Care Note [code = 23391-5] Goal Plan of Care Note [code = 76568-3] Goal Plan of Care Note [code = 79475-6] Goal Plan of Care Note [code = 56337-0] Goal Plan of Care Note [code = 76859-6] Goal Plan of Care Note [code = 96100-0] Goal Plan of Care Note [code = 70363-8] Goal Plan of Care Note [code = 10099-8] Goal Plan of Care Note [code = 38656-6] Goal Plan of Care Note [code = 52777-1] Goal Plan of Care Note [code = 79975-8] Goal Plan of Care Note [code = 56481-8] Goal Plan of Care Note [code = 16093-7] Goal Plan of Care Note [code = 62451-3] Goal Plan of Care Note [code = 82086-4] Goal Plan of Care Note [code = 94192-6] Goal Plan of Care Note [code = 73167-9] Goal Plan of Care Note [code = 75242-6] Goal Plan of Care Note [code = 53937-8] Goal Plan of Care Note [code = 39589-6] Goal Plan of Care Note [code = 93440-8] Goal Plan of Care Note [code = 95053-7] Goal Plan of Care Note [code = 27069-3] Goal Plan of Care Note [code = 19933-4] Goal Plan of Care Note [code = 73976-0] Goal Plan of Care Note [code = 81817-4] Goal Plan of Care Note [code = 83496-2] Goal Plan of Care Note [code = 93650-0] Goal Plan of Care Note [code = 93733-8] Goal Plan of Care Note [code = 37074-6] Goal Plan of Care Note [code = 14403-2] Goal Plan of Care Note [code = 87278-5] Goal Plan of Care Note [code = 95354-8] Goal Plan of Care Note [code = 31827-1] Goal Plan of Care Note [code = 15083-5] Goal Plan of Care Note [code = 23460-1] Goal Plan of Care Note [code = 16735-6] Goal Plan of Care Note [code = 77345-6] Goal Plan of Care Note [code = 94818-2] Goal Plan of Care Note [code = 42273-9] Goal Plan of Care Note [code = 25575-3] Goal Plan of Care Note [code = 00227-7] Goal Plan of Care Note [code = 44809-6] Goal Plan of Care Note [code = 78239-8] Goal Plan of Care Note [code = 05383-8] Goal Plan of Care Note [code = 16258-7] Goal Plan of Care Note [code = 86292-1] Goal Plan of Care Note [code = 57395-4] Goal Plan of Care Note [code = 78550-5] Goal Plan of Care Note [code = 62576-2] Goal Plan of Care Note [code = 84520-4] Goal Plan of Care Note [code = 71622-9] Goal Plan of Care Note [code = 60726-7] Goal Plan of Care Note [code = 25818-1] Goal Plan of Care Note [code = 47608-3] Goal Plan of Care Note [code = 85341-9] Goal Plan of Care Note [code = 58571-5] Goal Plan of Care Note [code = 31538-7] Goal Plan of Care Note [code = 14712-1] Goal Plan of Care Note [code = 41888-5] Goal Plan of Care Note [code = 74616-1] Goal Plan of Care Note [code = 52463-1] Goal Plan of Care Note [code = 62615-3] Goal Plan of Care Note [code = 89309-6] Goal Plan of Care Note [code = 61297-5] Goal Plan of Care Note [code = 63803-3] Goal Plan of Care Note [code = 28829-9] Goal Plan of Care Note [code = 98567-5] Goal Plan of Care Note [code = 24317-7] Goal Plan of Care Note [code = 59035-5] Goal Plan of Care Note [code = 48084-7] Goal Plan of Care Note [code = 12175-0] Goal Plan of Care Note [code = 16470-1] Goal Plan of Care Note [code = 00111-8] Goal Plan of Care Note [code = 79070-9] Goal Plan of Care Note [code = 76434-6] Goal Plan of Care Note [code = 94363-8] Goal Plan of Care Note [code = 06198-5] Goal Plan of Care Note [code = 78953-1] Goal Plan of Care Note [code = 85748-6] Goal Plan of Care Note [code = 16133-3] Goal Plan of Care Note [code = 41809-6] Goal Plan of Care Note [code = 61952-8] Goal Plan of Care Note [code = 65799-6] Goal Plan of Care Note [code = 56840-5] Goal Plan of Care Note [code = 04179-9] Goal Plan of Care Note [code = 73176-3] Goal Plan of Care Note [code = 00337-4] Goal Plan of Care Note [code = 09161-4] Goal Plan of Care Note [code = 55201-4] Goal Plan of Care Note [code = 56288-1] Goal Plan of Care Note [code = 55507-3] Goal Plan of Care Note [code = 13929-4] Goal Plan of Care Note [code = 39823-8] Goal Plan of Care Note [code = 72716-9] Goal Plan of Care Note [code = 56036-8] Goal Plan of Care Note [code = 46832-5] Goal Plan of Care Note [code = 50743-7] Goal Plan of Care Note [code = 92128-1] Goal Plan of Care Note [code = 82425-2] Goal Plan of Care Note [code = 76260-5] Goal Plan of Care Note [code = 86917-7] Goal Plan of Care Note [code = 73668-9] Goal Plan of Care Note [code = 09584-2] Goal Plan of Care Note [code = 23541-4] Goal Plan of Care Note [code = 83138-1] Goal Plan of Care Note [code = 93192-2] Goal Plan of Care Note [code = 79429-8] Goal Plan of Care Note [code = 33187-0] Goal Plan of Care Note [code = 97517-8] Goal Plan of Care Note [code = 92452-0] Goal Plan of Care Note [code = 56779-0] Goal Plan of Care Note [code = 56406-4] Goal Plan of Care Note [code = 34947-6] Goal Plan of Care Note [code = 51412-0] Goal Plan of Care Note [code = 67168-9] Goal Plan of Care Note [code = 96479-6] Goal Plan of Care Note [code = 71247-8] Goal Plan of Care Note [code = 01370-8] Goal Plan of Care Note [code = 12434-3] Goal Plan of Care Note [code = 73570-7] Goal Plan of Care Note [code = 46875-7] Goal Plan of Care Note [code = 53020-6] Goal Plan of Care Note [code = 30947-9] Goal Plan of Care Note [code = 86918-1] Goal Plan of Care Note [code = 56488-9] Goal Plan of Care Note [code = 80173-1] Goal Plan of Care Note [code = 58443-2] Goal Plan of Care Note [code = 04081-9] Goal Plan of Care Note [code = 46777-6] Goal Plan of Care Note [code = 45548-4] Goal Plan of Care Note [code = 12198-2] Goal Plan of Care Note [code = 15426-8] Goal Plan of Care Note [code = 30164-1] Goal Plan of Care Note [code = 13655-5] Goal Plan of Care Note [code = 37815-4] Goal Plan of Care Note [code = 13961-8] Goal Plan of Care Note [code = 28532-6] Goal Plan of Care Note [code = 15545-0] Goal Plan of Care Note [code = 05637-9] Goal Plan of Care Note [code = 88192-6] Encounters Start End Encounter Admission Attending Care Care Encounter Source Date/Time Date/Time Type Type Clinicians Facility Department ID 2021-07-17 Outpatient STLMLC STLMLC [id number] Common 11:09:09 [id number] [facility] 2022-05-14 2022-05-14 Outpatient SFA SFA [id number] Vincenzo 16:21:44 16:21:44 1123 F Gerardo 2022-05-14 2022-05-14 Outpatient [id number]-k 00:00:00 00:00:00 Visit a98x-6305 50f-4791-b -bdf0-428 df0-428aed dqz4x476c 8j858w 2022-02-17 2022-02-17 Outpatient [id number] 00:00:00 00:00:00 Visit 295f-4f28 95f-4f28-a -o360-771 [id number] 628ede 2022-02-08 2022-02-08 Outpatient [id number]-j 00:00:00 00:00:00 Visit b3f3-3sc1 1q6-6es7-7 -845f-c0a 45f-c0a5b0 [id number] 5231e1 2022-02-06 2022-02-06 Orders Doctor ISAIAS [id number] Univers 00:00:00 00:00:00 Only Unassigned, HODA 350.1.13.10 ity of [place] [facility] 4.2.7.2.686 Derek as [id number] [place] [address] [place] 2022-01-28 2022-01-28 Outpatient [id number] 233cad-[id number] 00:00:00 00:00:00 Visit baa2-4154 aa2-4154-9 -1xf9-51r df4-39e625 281bga7a4 afe2e5 2021-12-20 2021-12-20 Outpatient [id number] 00:00:00 00:00:00 Visit w4bz-7tfx 9fe-4bbf-a -r088-821 729-1757be 7xa0t5429 7y7048 2020-06-07 2020-06-08 Outpatient nullFlavo MNA [id number] Memoria 15:15:00 05:59:59 r Neurology 09 l [place] Downeyann 2020-06-07 2020-06-08 Outpatient nullFlavo MNA [id number] Memoria 15:15:00 05:59:59 r Neurology 09 l [place] 2020-06-07 2020-06-07 [facility] 648 [id number] 09:15:00 23:59:59 Shoaib 09 [place] 2020-06-07 2020-06-07 Outpatient MHIE MHIE [id number] Memoria 09:15:00 09:15:00 09 giovanni Vladimir 2020-05-22 2020-05-22 Ambulatory nullFlavo MNA [id number] Memoria 20:45:00 20:45:00 Pre-Reg r Neurology 08 l [place] 2020-05-22 2020-05-22 Ambulatory nullFlavo MNA [id number] Memoria 20:45:00 20:45:00 Pre-Reg r Neurology 08 l [place] 2020-05-22 2020-05-22 Outpatient MHIE MHIE [id number] Memoria 14:45:00 14:45:00 giovanni [place] 2020-05-22 2020-05-22 [facility]patient [id number] [id number] 14:45:00 14:45:00 Shoaib 08 [place] 2020-04-05 2020-04-06 Outpatient nullFlavo MNA [id number] Memoria 19:00:00 04:59:59 r Neurology 07 l Franklinseveriano Downeyann 2020-04-05 2020-04-06 Outpatient nullFlavo MNA [id number] Memoria 19:00:00 04:59:59 r Neurology 07 l Georgia Gilbert 2020-04-05 2020-04-05 [facility] 969 [id number] 14:00:00 23:59:59 Shoaib 07 [place] 2020-04-05 2020-04-05 Outpatient MHIE MHIE [id number] Memoria 14:00:00 14:00:00 07 l Vladimir 2020-02-23 2020-02-24 Outpatient nullFlavo MNA [id number] Memoria 20:15:00 04:59:59 r Neurology 06 l [place] Gilbert 2020-02-23 2020-02-24 Outpatient nullFlavo MNA [id number] Memoria 20:15:00 04:59:59 r Neurology 06 l [place] Gilbert 2020-02-23 2020-02-23 [id number] 15:15:00 23:59:59 Shoaib 06 [place] 2020-02-23 2020-02-23 Outpatient MHIE MHIE [id number] Memoria 15:15:00 15:15:00 06 [place] 2020-01-25 2020-01-25 (TEL) STLMLC STLMLC [id number] m[place] 00:00:00 00:00:00 [facility] 2020-01-05 2020-01-06 Outpatient nullFlavo MNA [id number] Memoria 20:15:00 04:59:59 r Neurology 05 l Georgia Giblert 2020-01-05 2020-01-06 Outpatient nullFlavo MNA [id number] Memoria 20:15:00 04:59:59 r Neurology 05 l [place] Gilbert 2020-01-05 2020-01-05 [id number] 15:15:00 23:59:59 Shoaib 05 [place] 2020-01-05 2020-01-05 Outpatient MHIE MHIE [id number] Memoria 15:15:00 15:15:00 05 giovanni Gilbert 2019-12-29 2019-12-29 Ambulatory nullFlavo MNA [id number] Memoria 20:15:00 20:15:00 Pre-Reg r Neurology 02 l [place] Vladimir 2019-12-29 2019-12-29 Ambulatory nullFlavo MNA [id number] Memoria 20:15:00 20:15:00 Pre-Reg r Neurology 04 l [place] 2019-12-29 2019-12-29 Ambulatory nullFlavo MNA [id number] Memoria 20:15:00 20:15:00 Pre-Reg r Neurology 04 l [place] 2019-12-29 2019-12-29 Ambulatory nullFlavo MNA [id number] Memoria 20:15:00 20:15:00 Pre-Reg r Neurology 02 l [place] 2019-12-29 2019-12-29 Outpatient MHIE MHIE [id number] Memoria 15:15:00 15:15:00 02 l Vladimir 2019-12-29 2019-12-29 Outpatient MHIE MHIE [id number] Memoria 15:15:00 15:15:00 04 giovanni [place] 2019-12-29 2019-12-29 [facility] [id number] 15:15:00 15:15:00 Shoaib 02 [place] 2019-12-29 2019-12-29 Outpatient [facility]IELA [place] [facility] [id number] 15:15:00 15:15:00 Shoaib 04 [place] 2019-11-23 2019-11-24 Outpatient nullFlavo MNA [id number] Memoria 18:00:00 04:59:59 r Neurology 03 l [place] 2019-11-23 2019-11-24 Outpatient nullFlavo MNA [id number] Memoria 18:00:00 04:59:59 r Neurology 03 l [place] 2019-11-23 2019-11-23 Outpatient Ashu MHMISCHER MHMISCHER [id number] 13:00:00 23:59:59 Shoaib 03 [place] 2019-11-23 2019-11-23 Outpatient MHIE MHIE [id number] Memoria 13:00:00 13:00:00 03 l Vladimir 2019-11-17 2019-11-18 Outpatient nullFlavo MNA [id number] Memoria 20:00:00 04:59:59 r Neurology 01 l [place] Vladimir 2019-11-17 2019-11-18 Outpatient nullFlavo MNA [id number] Memoria 20:00:00 04:59:59 r Neurology 01 l [place] 2019-11-17 2019-11-17 [id number] 15:00:00 23:59:59 Shoaib 01 [place] 2019-11-17 2019-11-17 Outpatient SHIELAIE LUIS [id number] Memoria 15:00:00 15:00:00 01 l [place] 2019-10-06 2019-10-06 Ambulatory nullFlavo MNA [id number] Memoria 18:30:00 18:30:00 Pre-Reg r Neurology 00 l [place] 2019-10-06 2019-10-06 Ambulatory nullFlavo MNA [id number] [id number] Memoria 18:30:00 18:30:00 Pre-Reg r Neurology 00 l [place] 2019-10-06 2019-10-06 Outpatient Ashu [facility] [id number] 13:30:00 13:30:00 Shoaib 00 [place] 2019-08-11 2019-08-11 Out[facility] [id number] Common 14:00:00 14:00:00 t Bone [facility] Sp[facility] t [facility] 2018-07-20 2018-07-20 Day [facility]Flavo [facility] [id number] Memoria 21:00:00 21:00:00 Surgery r Vladimir 00 l [place] 2018-07-20 2018-07-20 Day nullFlavo [facility] [id number] Memoria 21:00:00 21:00:00 Surgery r Vladimir 00 l [place] 2018-07-20 2018-07-20 Outpatient Remi [facility] [id number] 15:00:00 15:[facility]:00 [facility] [place] [facility] Results Test Description Test Time Test Comments Results Result Comments Source CULTURE, URINE 2022-02-14 SPECIMEN NUMBER: 09:28:15 [id number] CULTURE, URINE SPECIMEN NUMBER: [id number] SPECIMEN COMMENT: URINE SOURCE: URINE REPORT STATUS: FINAL FINAL REPORT: 02/14/2022 <10,000 CFU/ML UROGENITAL HECTOR PRESENT NO COMMON PATHOGENS UNLESS OTHERWISE INDICATED, ALL TESTING PERFORMED [facility] [address] [place] [address] SUPERVISOR LOOPING: ALLEY COBURN M.D. CLIA NUMBER [id number] [facility] [place]. [id number] CULTURE, URINE 2022-02-14 00:00:00 Test Item Value Reference Range Interpretation Comme nts CULTURE, URINE (test code = 28083) SPECIMEN NUMBER: [id number] CULTURE, [id number] 00:00:00 Test Item Value Reference Range Interpretation Comments CULTURE, URINE (test SPECIMEN NUMBER: code = 84384) [id number] CULTURE, [id number] 00:00:00 Test Item Value Reference Range Interpretation Comments CULTURE, URINE (test SPECIMEN NUMBER: code = 01443) [id number] CULTURE, [id number] 00:00:00 Test Item Value Reference Range Interpretation Comments CULTURE, URINE (test SPECIMEN NUMBER: code = 72336) [id number] CULTURE, [id number] 00:00:00 Test Item Value Reference Range Interpretation Comments CULTURE, URINE (test SPECIMEN NUMBER: code = 11664) [id number] CULTURE, [id number] 00:00:00 Test Item Value Reference Range Interpretation Comments CULTURE, URINE (test SPECIMEN NUMBER: code = 92906) [id number] VITAMIN D, 25 [id number] 05:45:34 Test Item Value Reference Range Interpretation [...] . . . . NG/ML 30-100 HEMOGLOBIN [id number] 05:43:15 Test Item Value Reference Range Interpretation Comments HEMOGLOBIN A1c (test 10.5 % 4.2-5.6 H AMERIC AN DIABETES code = 95204) ASSOCIATION IDELINES FOR HGB A1C: PREDIABETES/INC REASED [...] LABORATORY C ONSULTATION. CBC W/AUTO DIFF WITH [id number] 04:31:24 Test Item Value Reference Range Interpretation [...] message] code = 1065) WBC'S The system INPHI generated this result transmitted ref erence range: [...] 0.00-0.11 UNLESS O THERWISE (test code = 77230) INDICATE D, ALL TESTING PERFORM ED [facility]CLIN[facility] PATH [facility], [facility]. [address] [place] [id number] [place] [address] DIRECTOR: ALLEY COBURN M.D. CLIA NUMBER [id number] CAP ACCREDITATION N O. [id number] HIV 1/2 4TH GEN, RFLX [id number] 04:04:35 Test Item Value Reference Range Interpretation Comments HIV 1/2 4TH GEN, RFLX CONF (test NON-REACTIVE NON-REACTIVE code = 3514) LIPID [id number] 03:38:50 Test Item Value Reference Range Interpretation [...] MOREINFORMATION , SEE CLIENT ANNOUNCE MENT AT [email or web address] RISK RATIO LDL/HDL 0.73 RATIO <3.22 (test code = 2238) COMPREHENSIVE METABOLIC [id number] 03:38:50 Test Item Value Reference Range Interpretation Comments GLUCOSE (test code = 134 MG/DL 70-99 H 2216) BUN (test code = 33 MG/DL 8-23 H 2207) CREATININE (test 5.01 MG/DL 0.60-1.30 H code = 221) eGFR (2020 CKD-EPI) 9 ML/MIN/1.73 >60 L (test code = 78649) CALC BUN/CREAT (test 7 RATIO 6-28 code = 2235) SODIUM (test code = 138 MEQ/L 996-718 2056) POTASSIUM (test code 4.2 MEQ/L 3.5-5.4 = 2227) CHLORIDE (test code 97 MEQ/L 95-107 = 2214) CARBON DIOXIDE (test 25 MEQ/L 19-31 code = 2206) CALCIUM (test code = 9.6 MG/DL 8.5-10.5 2208) PROTEIN, TOTAL (test 7.3 G/DL 6.1-8.3 code = 2228) ALBUMIN (test code = 4.4 G/DL 3.5-5.2 2200) CALC GLOBULIN (test 2.9 G/DL 1.9-3.7 code = 224) CALC A/G RATIO (test 1.5 RATIO 1.0-2.6 code = 223) BILIRUBIN, TOTAL 0.5 MG/DL See_Comment [Automated message] (test code = 220) The syste m which generated this result transmit niya reference range : <=1.2. The refe rence range was not u sed to interpret th is result as normal/abnormal . ALKALINE PHOSPHATASE 158 U/L 40-140 H (test code = 2203) AST (test code = 22 U/L 9-40 2217) ALT (test code = 16 U/L 5-40 2218) COMPREHENSIVE METABOLIC [id number] 00:00:00 Test Item Value Reference Range Interpretation Comments GLUCOSE (test code = 2217) 134 MG/DL BUN (test code = 2207) 33 MG/DL CREATININE (test code = 2214) 5.01 MG/DL eGFR (2020 CKD-EPI) (test code 9 ML/MIN/1.73 = 32902) CALC BUN/CREAT (test code = 7 RATIO 2234) SODIUM (test code = 2231) 138 MEQ/L [...] code = 2219) 16 U/L COMPREHENSIVE METABOLIC [id number] 00:00:00 Test Item Value Reference Range Interpretation Comments GLUCOSE (test code = 2216) 134 MG/DL BUN (test code = 2208) 33 MG/DL CREATININE (test code = 2214) 5.01 MG/DL eGFR (2020 CKD-EPI) (test code 9 ML/MIN/1.73 = 19449) CALC BUN/CREAT (test code = 7 RATIO [...] (test code = 2219) 16 U/L LIPID [id number] 00:00:00 Test Item Value Reference Range Interpretation Comments CHOLESTEROL (test code = 2210) 142 MG/DL TRIGLYCERIDES (test code = 2232) 59 MG/DL HDL CHOLESTEROL (test code = 2220) 74 MG/DL CALC LDL CHOL (test code = 2237) 54 MG/DL RISK RATIO LDL/HDL (test code = 0.73 RATIO 2238) LIPID [id number] 00:00:00 Test Item Value Reference Range Interpretation Comments CHOLESTEROL (test code = 2210) 142 MG/DL TRIGLYCERIDES (test code = 2232) 59 MG/DL HDL CHOLESTEROL (test code = 2220) 74 MG/DL CALC LDL CHOL (test code = 2237) 54 MG/DL RISK RATIO LDL/HDL (test code = 0.73 RATIO 2238) HIV AB/AG COMBO RFLX [id number] 00:00:00 Test Item Value Reference Range Interpretation Comments HIV 1/2 4TH GEN, RFLX CONF (test NON-REACTIVE code = 3514) HIV AB/AG COMBO RFLX [id number] 00:00:00 Test Item Value Reference Range Interpretation Comments HIV 1/2 4TH GEN, RFLX CONF (test NON-REACTIVE code = 3514) CBC W/AUTO [id number] 00:00:00 Test Item Value Reference Range Interpretation [...] NUCLEATED RBCS (test code = 0.00 K/UL 17924) CBC W/AUTO [id number] 00:00:00 Test Item Value Reference Range Interpretation [...] NUCLEATED RBCS (test code = 0.00 K/UL 53783) CBC W/AUTO [id number] 00:00:00 Test Item Value Reference Range Interpretation [...] NUCLEATED RBCS (test code = 0.00 K/UL 10135) VITAMIN D, 25 [id number] 00:00:00 Test Item Value Reference Range Interpretation Comments VITAMIN D, 25 OH (test code = 4958) 34 NG/ML VITAMIN D, 25 [id number] 00:00:00 Test Item Value Reference Range Interpretation Comments VITAMIN D, 25 OH (test code = 4958) 34 NG/ML HEMOGLOBIN [id number] 00:00:00 Test Item Value Reference Range Interpretation Comments HEMOGLOBIN A1c (test code = 81245) 10.5 % HEMOGLOBIN [id number] 00:00:00 Test Item Value Reference Range Interpretation Comments HEMOGLOBIN A1c (test code = 37905) 10.5 % HEMOGLOBIN [id number] 00:00:00 Test Item Value Reference Range Interpretation Comments HEMOGLOBIN A1c (test code = 95936) 10.5 % COMPREHENSIVE METABOLIC [id number] 00:00:00 Test Item Value Reference Range Interpretation Comments GLUCOSE (test code = 2217) 134 MG/DL BUN (test code = 2208) 33 MG/DL CREATININE (test code = 2214) 5.01 MG/DL eGFR (2020 CKD-EPI) (test code 9 ML/MIN/1.73 = 35812) CALC BUN/CREAT (test code = 7 RATIO [...] code = 2219) 16 U/L COMPREHENSIVE METABOLIC [id number] 00:00:00 Test Item Value Reference Range Interpretation Comments GLUCOSE (test code = 2216) 134 MG/DL BUN (test code = 2208) 33 MG/DL CREATININE (test code = 2214) 5.01 MG/DL eGFR (2020 CKD-EPI) (test code 9 ML/MIN/1.73 = 26113) CALC BUN/CREAT (test code = 7 RATIO [...] (test code = 2219) 16 U/L LIPID [id number] 00:00:00 Test Item Value Reference Range Interpretation Comments CHOLESTEROL (test code = 2210) 142 MG/DL TRIGLYCERIDES (test code = 2232) 59 MG/DL HDL CHOLESTEROL (test code = 2220) 74 MG/DL CALC LDL CHOL (test code = 2237) 54 MG/DL RISK RATIO LDL/HDL (test code = 0.73 RATIO 2238) LIPID [id number] 00:00:00 Test Item Value Reference Range Interpretation Comments CHOLESTEROL (test code = 2210) 142 MG/DL TRIGLYCERIDES (test code = 2232) 59 MG/DL HDL CHOLESTEROL (test code = 2220) 74 MG/DL CALC LDL CHOL (test code = 2237) 54 MG/DL RISK RATIO LDL/HDL (test code = 0.73 RATIO 2238) HIV AB/AG COMBO RFLX [id number] 00:00:00 Test Item Value Reference Range Interpretation Comments HIV 1/2 4TH GEN, RFLX CONF (test NON-REACTIVE code = 3514) HIV AB/AG COMBO RFLX [id number] 00:00:00 Test Item Value Reference Range Interpretation Comments HIV 1/2 4TH GEN, RFLX CONF (test NON-REACTIVE code = 3514) CBC W/AUTO [id number] 00:00:00 Test Item Value Reference Range Interpretation [...] NUCLEATED RBCS (test code = 0.00 K/UL 82781) CBC W/AUTO [id number] 00:00:00 Test Item Value Reference Range Interpretation [...] NUCLEATED RBCS (test code = 0.00 K/UL 18010) CBC W/AUTO [id number] 00:00:00 Test Item Value Reference Range Interpretation [...] NUCLEATED RBCS (test code = 0.00 K/UL 38696) VITAMIN D, 25 [id number] 00:00:00 Test Item Value Reference Range Interpretation Comments VITAMIN D, 25 OH (test code = 4958) 34 NG/ML VITAMIN D, 25 [id number] 00:00:00 Test Item Value Reference Range Interpretation Comments VITAMIN D, 25 OH (test code = 4958) 34 NG/ML HEMOGLOBIN [id number] 00:00:00 Test Item Value Reference Range Interpretation Comments HEMOGLOBIN A1c (test code = 86818) 10.5 % HEMOGLOBIN [id number] 00:00:00 Test Item Value Reference Range Interpretation Comments HEMOGLOBIN A1c (test code = 99585) 10.5 % HEMOGLOBIN [id number] 00:00:00 Test Item Value Reference Range Interpretation Comments HEMOGLOBIN A1c (test code = 93734) 10.5 % COMPREHENSIVE METABOLIC [id number] 00:00:00 Test Item Value Reference Range Interpretation Comments GLUCOSE (test code = 2217) 134 MG/DL BUN (test code = 2208) 33 MG/DL CREATININE (test code = 2214) 5.01 MG/DL eGFR (2020 CKD-EPI) (test code 9 ML/MIN/1.73 = 52205) CALC BUN/CREAT (test code = 7 RATIO [...] code = 2219) 16 U/L COMPREHENSIVE METABOLIC [id number] 00:00:00 Test Item Value Reference Range Interpretation Comments GLUCOSE (test code = 221) 134 MG/DL BUN (test code = 2208) 33 MG/DL CREATININE (test code = 2214) 5.01 MG/DL eGFR (2020 CKD-EPI) (test code 9 ML/MIN/1.73 = 40444) CALC BUN/CREAT (test code = 7 RATIO [...] (test code = 2219) 16 U/L LIPID [id number] 00:00:00 Test Item Value Reference Range Interpretation Comments CHOLESTEROL (test code = 2210) 142 MG/DL TRIGLYCERIDES (test code = 2232) 59 MG/DL HDL CHOLESTEROL (test code = 2220) 74 MG/DL CALC LDL CHOL (test code = 2237) 54 MG/DL RISK RATIO LDL/HDL (test code = 0.73 RATIO 2238) LIPID [id number] 00:00:00 Test Item Value Reference Range Interpretation Comments CHOLESTEROL (test code = 2210) 142 MG/DL TRIGLYCERIDES (test code = 2232) 59 MG/DL HDL CHOLESTEROL (test code = 2220) 74 MG/DL CALC LDL CHOL (test code = 2237) 54 MG/DL RISK RATIO LDL/HDL (test code = 0.73 RATIO 2238) HIV AB/AG COMBO RFLX [id number] 00:00:00 Test Item Value Reference Range Interpretation Comments HIV 1/2 4TH GEN, RFLX CONF (test NON-REACTIVE code = 3514) HIV AB/AG COMBO RFLX [id number] 00:00:00 Test Item Value Reference Range Interpretation Comments HIV 1/2 4TH GEN, RFLX CONF (test NON-REACTIVE code = 3514) CBC W/AUTO [id number] 00:00:00 Test Item Value Reference Range Interpretation [...] NUCLEATED RBCS (test code = 0.00 K/UL 27880) CBC W/AUTO [id number] 00:00:00 Test Item Value Reference Range Interpretation [...] NUCLEATED RBCS (test code = 0.00 K/UL 18952) CBC W/AUTO [id number] 00:00:00 Test Item Value Reference Range Interpretation [...] NUCLEATED RBCS (test code = 0.00 K/UL 95849) VITAMIN D, 25 [id number] 00:00:00 Test Item Value Reference Range Interpretation Comments VITAMIN D, 25 OH (test code = 4958) 34 NG/ML HEMOGLOBIN [id number] 00:00:00 Test Item Value Reference Range Interpretation Comments HEMOGLOBIN A1c (test code = 61299) 10.5 % HEMOGLOBIN [id number] 00:00:00 Test Item Value Reference Range Interpretation Comments HEMOGLOBIN A1c (test code = 69495) 10.5 % COMPREHENSIVE METABOLIC [id number] 00:00:00 Test Item Value Reference Range Interpretation Comments GLUCOSE (test code = 2217) 134 MG/DL BUN (test code = 2208) 33 MG/DL CREATININE (test code = 2214) 5.01 MG/DL eGFR (2020 CKD-EPI) (test code 9 ML/MIN/1.73 = 05178) CALC BUN/CREAT (test code = 7 RATIO [...] (test code = 2219) 16 U/L LIPID [id number] 00:00:00 Test Item Value Reference Range Interpretation Comments CHOLESTEROL (test code = 2210) 142 MG/DL TRIGLYCERIDES (test code = 2232) 59 MG/DL HDL CHOLESTEROL (test code = 2220) 74 MG/DL CALC LDL CHOL (test code = 2237) 54 MG/DL RISK RATIO LDL/HDL (test code = 0.73 RATIO 2238) HIV AB/AG COMBO RFLX [id number] 00:00:00 Test Item Value Reference Range Interpretation Comments HIV 1/2 4TH GEN, RFLX CONF (test NON-REACTIVE code = 3514) CBC W/AUTO [id number] 00:00:00 Test Item Value Reference Range Interpretation [...] NUCLEATED RBCS (test code = 0.00 K/UL 96226) CBC W/AUTO [id number] 00:00:00 Test Item Value Reference Range Interpretation [...] NUCLEATED RBCS (test code = 0.00 K/UL 75639) VITAMIN D, 25 [id number] 00:00:00 Test Item Value Reference Range Interpretation Comments VITAMIN D, 25 OH (test code = 4958) 34 NG/ML VITAMIN D, 25 [id number] 00:00:00 Test Item Value Reference Range Interpretation Comments VITAMIN D, 25 OH (test code = 4958) 34 NG/ML HEMOGLOBIN [id number] 00:00:00 Test Item Value Reference Range Interpretation Comments HEMOGLOBIN A1c (test code = 27809) 10.5 % HEMOGLOBIN [id number] 00:00:00 Test Item Value Reference Range Interpretation Comments HEMOGLOBIN A1c (test code = 08708) 10.5 % HEMOGLOBIN [id number] 00:00:00 Test Item Value Reference Range Interpretation Comments HEMOGLOBIN A1c (test code = 76719) 10.5 % COMPREHENSIVE METABOLIC [id number] 00:00:00 Test Item Value Reference Range Interpretation Comments GLUCOSE (test code = 2217) 134 MG/DL BUN (test code = 2208) 33 MG/DL CREATININE (test code = 2214) 5.01 MG/DL eGFR (2020 CKD-EPI) (test code 9 ML/MIN/1.73 = 79157) CALC BUN/CREAT (test code = 7 RATIO [...] code = 2219) 16 U/L COMPREHENSIVE METABOLIC [id number] 00:00:00 Test Item Value Reference Range Interpretation Comments GLUCOSE (test code = 2217) 134 MG/DL BUN (test code = 2208) 33 MG/DL CREATININE (test code = 2214) 5.01 MG/DL eGFR (2020 CKD-EPI) (test code 9 ML/MIN/1.73 = 53887) CALC BUN/CREAT (test code = 7 RATIO [...] BILIRUBIN, TOTAL (test code = 0.5 MG/DL 7) ALKALINE PHOSPHATASE (test code 158 U/L = 2204) AST (test code = 2218) 22 U/L ALT (test code = 2219) 16 U/L LIPID [id number] 00:00:00 Test Item Value Reference Range Interpretation Comments CHOLESTEROL (test code = 2210) 142 MG/DL TRIGLYCERIDES (test code = 2232) 59 MG/DL HDL CHOLESTEROL (test code = 2220) 74 MG/DL CALC LDL CHOL (test code = 2237) 54 MG/DL RISK RATIO LDL/HDL (test code = 0.73 RATIO 2238) LIPID [id number] 00:00:00 Test Item Value Reference Range Interpretation Comments CHOLESTEROL (test code = 2210) 142 MG/DL TRIGLYCERIDES (test code = 2232) 59 MG/DL HDL CHOLESTEROL (test code = 2220) 74 MG/DL CALC LDL CHOL (test code = 2237) 54 MG/DL RISK RATIO LDL/HDL (test code = 0.73 RATIO 2238) HIV AB/AG COMBO RFLX [id number] 00:00:00 Test Item Value Reference Range Interpretation Comments HIV 1/2 4TH GEN, RFLX CONF (test NON-REACTIVE code = 3514) HIV AB/AG COMBO RFLX [id number] 00:00:00 Test Item Value Reference Range Interpretation Comments HIV 1/2 4TH GEN, RFLX CONF (test NON-REACTIVE code = 3514) CBC W/AUTO [id number] 00:00:00 Test Item Value Reference Range Interpretation [...] NUCLEATED RBCS (test code = 0.00 K/UL 89393) CBC W/AUTO [id number] 00:00:00 Test Item Value Reference Range Interpretation [...] NUCLEATED RBCS (test code = 0.00 K/UL 57521) CBC W/AUTO [id number] 00:00:00 Test Item Value Reference Range Interpretation [...] NUCLEATED RBCS (test code = 0.00 K/UL 59293) VITAMIN D, 25 [id number] 00:00:00 Test Item Value Reference Range Interpretation Comments VITAMIN D, 25 OH (test code = 4958) 34 NG/ML VITAMIN D, 25 [id number] 00:00:00 Test Item Value Reference Range Interpretation Comments VITAMIN D, 25 OH (test code = 4958) 34 NG/ML HEMOGLOBIN [id number] 00:00:00 Test Item Value Reference Range Interpretation Comments HEMOGLOBIN A1c (test code = 68036) 10.5 % HEMOGLOBIN [id number] 00:00:00 Test Item Value Reference Range Interpretation Comments HEMOGLOBIN A1c (test code = 44404) 10.5 % HEMOGLOBIN [id number] 00:00:00 Test Item Value Reference Range Interpretation Comments HEMOGLOBIN A1c (test code = 93319) 10.5 % SCR MAMM BILATERAL DAVIS CAD [id number] 13:49:46 Name: Margarita : 1960 Sex: F - SCR MAMM BILATERAL DAVIS CAD DIGITALBILATERAL DIGITAL SCREENING MAMMOGRAM 3D/2D WITH CAD: 11/16/2020LINICAL: Asymptomatic. Digital breasttomosynthesis was performed in addition to routine CC and MLO views. Current mammographic images were evaluated by [employer] CAD (computer-aided detection) software. Comparison is made to exam dated 04/21/2018 mammogram - [facility]. There are scattered fibroglandular tissues in both breasts. There are benign vascular calcifications in both breasts. No suspicious mass, architectural distortion, malignant type calcification, or lymph node abnormality detected. Breast dl ecture is stable compared to prior exams.IMPRESSION: BENIGNThere is no mammographic evidence of malignancy. Resume annual screening mammography in one year. Fish Alejandro M.D. ss/penrad:11/28/2020 13:49:46 Fellmongery Worker: Becka Reed MM, [facility] Mammographyletter sent: BIRADS 1-2 Normal Mammogram BI-RADS: 2 BenignHEMOGLOBIN [id number] 00:00:00 Test Item Value Reference Range Interpretation Comments HEMOGLOBIN A1c (test code = 26690) 8.6 % HEMOGLOBIN [id number] 00:00:00 Test Item Value Reference Range Interpretation Comments HEMOGLOBIN A1c (test code = 52778) 8.6 % HEMOGLOBIN [id number] 00:00:00 Test Item Value Reference Range Interpretation Comments HEMOGLOBIN A1c (test code = 97687) 8.6 % HEMOGLOBIN [id number] 00:00:00 Test Item Value Reference Range Interpretation Comments HEMOGLOBIN A1c (test code = 77053) 8.6 % HEMOGLOBIN [id number] 00:00:00 Test Item Value Reference Range Interpretation Comments HEMOGLOBIN A1c (test code = 89393) 8.6 % HEMOGLOBIN [id number] 00:00:00 Test Item Value Reference Range Interpretation Comments HEMOGLOBIN A1c (test code = 15077) 8.6 % HEMOGLOBIN [id number] 00:00:00 Test Item Value Reference Range Interpretation Comments HEMOGLOBIN A1c (test code = 05561) 8.6 % HEMOGLOBIN [id number] 00:00:00 Test Item Value Reference Range Interpretation Comments HEMOGLOBIN A1c (test code = 22040) 8.6 % HEMOGLOBIN [id number] 00:00:00 Test Item Value Reference Range Interpretation Comments HEMOGLOBIN A1c (test code = 59214) 8.6 % HEMOGLOBIN [id number] 00:00:00 Test Item Value Reference Range Interpretation Comments HEMOGLOBIN A1c (test code = 77585) 8.6 % HEMOGLOBIN [id number] 00:00:00 Test Item Value Reference Range Interpretation Comments HEMOGLOBIN A1c (test code = 70557) 8.6 % HEMOGLOBIN [id number] 00:00:00 Test Item Value Reference Range Interpretation Comments HEMOGLOBIN A1c (test code = 79079) 8.6 % HEMOGLOBIN [id number] 00:00:00 Test Item Value Reference Range Interpretation Comments HEMOGLOBIN A1c (test code = 51931) 8.6 % HEMOGLOBIN [id number] 00:00:00 Test Item Value Reference Range Interpretation Comments HEMOGLOBIN A1c (test code = 93715) 8.6 % LIPID [id number] 00:00:00 Test Item Value Reference Range Interpretation Comments CHOLESTEROL (test code = 2210) 186 MG/DL TRIGLYCERIDES (test code = 2232) 88 MG/DL HDL CHOLESTEROL (test code = 2220) 80 MG/DL CALC LDL CHOL (test code = 2237) 88 MG/DL RISK RATIO LDL/HDL (test code = 1.10 RATIO 2238) LIPID [id number] 00:00:00 Test Item Value Reference Range Interpretation Comments CHOLESTEROL (test code = 2210) 186 MG/DL TRIGLYCERIDES (test code = 2232) 88 MG/DL HDL CHOLESTEROL (test code = 2220) 80 MG/DL CALC LDL CHOL (test code = 2237) 88 MG/DL RISK RATIO LDL/HDL (test code = 1.10 RATIO 2238) COMPREHENSIVE METABOLIC [id number] 00:00:00 Test Item Value Reference Range Interpretation Comments GLUCOSE (test code = 2217) 300 MG/DL BUN (test code = 2208) 19 MG/DL CREATININE (test code = 2214) 4.15 MG/DL eGFR AMER. (test code 13 ML/MIN/1.73 = 47716) eGFR NON- AMER. (test 11 ML/MIN/1.73 code = 35607) CALC BUN/CREAT (test code = 5 RATIO [...] code = 2219) 13 U/L COMPREHENSIVE METABOLIC [id number] 00:00:00 Test Item Value Reference Range Interpretation Comments GLUCOSE (test code = 2217) 300 MG/DL BUN (test code = 2208) 19 MG/DL CREATININE (test code = 2214) 4.15 MG/DL eGFR AMER. (test code 13 ML/MIN/1.73 = 13979) eGFR NON- AMER. (test 11 ML/MIN/1.73 code = 37259) CALC BUN/CREAT (test code = 5 RATIO [...] A/G RATIO (test code = 1.4 RATIO 2233) BILIRUBIN, TOTAL (test code = 0.4 MG/DL 2206) ALKALINE PHOSPHATASE (test 153 U/L code = 2204) AST (test code = 2218) 21 U/L ALT (test code = 2219) 13 U/L [id number] 00:00:00 Test Item Value Reference Range Interpretation Comments TSH, THIRD GENERATION (test code 0.661 UIU/ML = 2821) [id number] 00:00:00 Test Item Value Reference Range Interpretation Comments TSH, THIRD GENERATION (test code 0.661 UIU/ML = 2821) [id number] 00:00:00 Test Item Value Reference Range Interpretation Comments TSH, THIRD GENERATION (test code 0.661 UIU/ML = 2821) CBC W/AUTO [id number] 00:00:00 Test Item Value Reference Range Interpretation [...] code = 1015) 166 K/UL CBC W/AUTO [id number] 00:00:00 Test Item Value Reference Range Interpretation [...] code = 1015) 166 K/UL CBC W/AUTO [id number] 00:00:00 Test Item Value Reference Range Interpretation [...] (test code = 1015) 166 K/UL HEMOGLOBIN [id number] 00:00:00 Test Item Value Reference Range Interpretation Comments HEMOGLOBIN A1c (test code = 98902) 8.5 % HEMOGLOBIN [id number] 00:00:00 Test Item Value Reference Range Interpretation Comments HEMOGLOBIN A1c (test code = 58244) 8.5 % HEMOGLOBIN [id number] 00:00:00 Test Item Value Reference Range Interpretation Comments HEMOGLOBIN A1c (test code = 64334) 8.5 % LIPID [id number] 00:00:00 Test Item Value Reference Range Interpretation Comments CHOLESTEROL (test code = 2210) 186 MG/DL TRIGLYCERIDES (test code = 2232) 88 MG/DL HDL CHOLESTEROL (test code = 2220) 80 MG/DL CALC LDL CHOL (test code = 2237) 88 MG/DL RISK RATIO LDL/HDL (test code = 1.10 RATIO 2238) LIPID [id number] 00:00:00 Test Item Value Reference Range Interpretation Comments CHOLESTEROL (test code = 2210) 186 MG/DL TRIGLYCERIDES (test code = 2232) 88 MG/DL HDL CHOLESTEROL (test code = 2220) 80 MG/DL CALC LDL CHOL (test code = 2237) 88 MG/DL RISK RATIO LDL/HDL (test code = 1.10 RATIO 2238) COMPREHENSIVE METABOLIC [id number] 00:00:00 Test Item Value Reference Range Interpretation Comments GLUCOSE (test code = 2217) 300 MG/DL BUN (test code = 2208) 19 MG/DL CREATININE (test code = 2214) 4.15 MG/DL eGFR AMER. (test code 13 ML/MIN/1.73 = 25401) eGFR NON- AMER. (test 11 ML/MIN/1.73 code = 73413) CALC BUN/CREAT (test code = 5 RATIO [...] code = 2219) 13 U/L COMPREHENSIVE METABOLIC [id number] 00:00:00 Test Item Value Reference Range Interpretation Comments GLUCOSE (test code = 2217) 300 MG/DL BUN (test code = 2208) 19 MG/DL CREATININE (test code = 2214) 4.15 MG/DL eGFR AMER. (test code 13 ML/MIN/1.73 = 30749) eGFR NON- AMER. (test 11 ML/MIN/1.73 code = 56612) CALC BUN/CREAT (test code = 5 RATIO [...] A/G RATIO (test code = 1.4 RATIO 2233) BILIRUBIN, TOTAL (test code = 0.4 MG/DL 2206) ALKALINE PHOSPHATASE (test 153 U/L code = 220) AST (test code = 2218) 21 U/L ALT (test code = 2219) 13 U/L [id number] 00:00:00 Test Item Value Reference Range Interpretation Comments TSH, THIRD GENERATION (test code 0.661 UIU/ML = 2821) [id number] 00:00:00 Test Item Value Reference Range Interpretation Comments TSH, THIRD GENERATION (test code 0.661 UIU/ML = 2821) [id number] 00:00:00 Test Item Value Reference Range Interpretation Comments TSH, THIRD GENERATION (test code 0.661 UIU/ML = 2821) CBC W/AUTO [id number] 00:00:00 Test Item Value Reference Range Interpretation [...] code = 1015) 166 K/UL CBC W/AUTO [id number] 00:00:00 Test Item Value Reference Range Interpretation [...] code = 1015) 166 K/UL CBC W/AUTO [id number] 00:00:00 Test Item Value Reference Range Interpretation [...] (test code = 1015) 166 K/UL HEMOGLOBIN [id number] 00:00:00 Test Item Value Reference Range Interpretation Comments HEMOGLOBIN A1c (test code = 47347) 8.5 % HEMOGLOBIN [id number] 00:00:00 Test Item Value Reference Range Interpretation Comments HEMOGLOBIN A1c (test code = 88149) 8.5 % HEMOGLOBIN [id number] 00:00:00 Test Item Value Reference Range Interpretation Comments HEMOGLOBIN A1c (test code = 07700) 8.5 % LIPID [id number] 00:00:00 Test Item Value Reference Range Interpretation Comments CHOLESTEROL (test code = 2210) 186 MG/DL TRIGLYCERIDES (test code = 2232) 88 MG/DL HDL CHOLESTEROL (test code = 2220) 80 MG/DL CALC LDL CHOL (test code = 2237) 88 MG/DL RISK RATIO LDL/HDL (test code = 1.10 RATIO 2238) LIPID [id number] 00:00:00 Test Item Value Reference Range Interpretation Comments CHOLESTEROL (test code = 2210) 186 MG/DL TRIGLYCERIDES (test code = 2232) 88 MG/DL HDL CHOLESTEROL (test code = 2220) 80 MG/DL CALC LDL CHOL (test code = 2237) 88 MG/DL RISK RATIO LDL/HDL (test code = 1.10 RATIO 2238) COMPREHENSIVE METABOLIC [id number] 00:00:00 Test Item Value Reference Range Interpretation Comments GLUCOSE (test code = 2217) 300 MG/DL BUN (test code = 2208) 19 MG/DL CREATININE (test code = 2214) 4.15 MG/DL eGFR AMER. (test code 13 ML/MIN/1.73 = 34045) eGFR NON- AMER. (test 11 ML/MIN/1.73 code = 88777) CALC BUN/CREAT (test code = 5 RATIO 2235) SODIUM (test code = 2231) 136 MEQ/L POTASSIUM (test code = 2228) 4.0 MEQ/L CHLORIDE (test code = 2215) 97 MEQ/L CARBON DIOXIDE (test code = 28 MEQ/L 2205) CALCIUM (test code = 2209) 9.4 MG/DL PROTEIN, TOTAL (test code = 7.3 G/DL 2228) ALBUMIN (test code = 220) 4.2 G/DL CALC GLOBULIN (test code = 3.1 G/DL 2239) CALC A/G RATIO (test code = 1.4 RATIO 2234) BILIRUBIN, TOTAL (test code = 0.4 MG/DL 2207) ALKALINE PHOSPHATASE (test 153 U/L code = 2204) AST (test code = 2218) 21 U/L ALT (test code = 2219) 13 U/L COMPREHENSIVE METABOLIC [id number] 00:00:00 Test Item Value Reference Range Interpretation Comments GLUCOSE (test code = 2217) 300 MG/DL BUN (test code = 2208) 19 MG/DL CREATININE (test code = 2214) 4.15 MG/DL eGFR AMER. (test code 13 ML/MIN/1.73 = 44739) eGFR NON- AMER. (test 11 ML/MIN/1.73 code = 60337) CALC BUN/CREAT (test code = 5 RATIO [...] ALT (test code = 2219) 13 U/L [id number] 00:00:00 Test Item Value Reference Range Interpretation Comments TSH, THIRD GENERATION (test code 0.661 UIU/ML = 2821) [id number] 00:00:00 Test Item Value Reference Range Interpretation Comments TSH, THIRD GENERATION (test code 0.661 UIU/ML = 2821) [id number] 00:00:00 Test Item Value Reference Range Interpretation Comments TSH, THIRD GENERATION (test code 0.661 UIU/ML = 2821) CBC W/AUTO [id number] 00:00:00 Test Item Value Reference Range Interpretation [...] code = 1015) 166 K/UL CBC W/AUTO [id number] 00:00:00 Test Item Value Reference Range Interpretation [...] (test code = 1015) 166 K/UL HEMOGLOBIN [id number] 00:00:00 Test Item Value Reference Range Interpretation Comments HEMOGLOBIN A1c (test code = 66609) 8.5 % HEMOGLOBIN [id number] 00:00:00 Test Item Value Reference Range Interpretation Comments HEMOGLOBIN A1c (test code = 29303) 8.5 % LIPID [id number] 00:00:00 Test Item Value Reference Range Interpretation Comments CHOLESTEROL (test code = 2210) 186 MG/DL TRIGLYCERIDES (test code = 2232) 88 MG/DL HDL CHOLESTEROL (test code = 2220) 80 MG/DL CALC LDL CHOL (test code = 2237) 88 MG/DL RISK RATIO LDL/HDL (test code = 1.10 RATIO 2238) COMPREHENSIVE METABOLIC [id number] 00:00:00 Test Item Value Reference Range Interpretation Comments GLUCOSE (test code = 2217) 300 MG/DL BUN (test code = 2208) 19 MG/DL CREATININE (test code = 2214) 4.15 MG/DL eGFR AMER. (test code 13 ML/MIN/1.73 = 32809) eGFR NON- AMER. (test 11 ML/MIN/1.73 code = 62740) CALC BUN/CREAT (test code = 5 RATIO [...] A/G RATIO (test code = 1.4 RATIO 2233) BILIRUBIN, TOTAL (test code = 0.4 MG/DL 2206) ALKALINE PHOSPHATASE (test 153 U/L code = 2204) AST (test code = 2218) 21 U/L ALT (test code = 2219) 13 U/L [id number] 00:00:00 Test Item Value Reference Range Interpretation Comments TSH, THIRD GENERATION (test code 0.661 UIU/ML = 2821) [id number] 00:00:00 Test Item Value Reference Range Interpretation Comments TSH, THIRD GENERATION (test code 0.661 UIU/ML = 2821) CBC W/AUTO [id number] 00:00:00 Test Item Value Reference Range Interpretation [...] code = 1015) 166 K/UL CBC W/AUTO [id number] 00:00:00 Test Item Value Reference Range Interpretation [...] code = 1015) 166 K/UL CBC W/AUTO [id number] 00:00:00 Test Item Value Reference Range Interpretation [...] (test code = 1015) 166 K/UL HEMOGLOBIN [id number] 00:00:00 Test Item Value Reference Range Interpretation Comments HEMOGLOBIN A1c (test code = 18106) 8.5 % HEMOGLOBIN [id number] 00:00:00 Test Item Value Reference Range Interpretation Comments HEMOGLOBIN A1c (test code = 17077) 8.5 % HEMOGLOBIN [id number] 00:00:00 Test Item Value Reference Range Interpretation Comments HEMOGLOBIN A1c (test code = 69482) 8.5 % LIPID [id number] 00:00:00 Test Item Value Reference Range Interpretation Comments CHOLESTEROL (test code = 2210) 186 MG/DL TRIGLYCERIDES (test code = 2232) 88 MG/DL HDL CHOLESTEROL (test code = 2220) 80 MG/DL CALC LDL CHOL (test code = 2237) 88 MG/DL RISK RATIO LDL/HDL (test code = 1.10 RATIO 2238) LIPID [id number] 00:00:00 Test Item Value Reference Range Interpretation Comments CHOLESTEROL (test code = 2210) 186 MG/DL TRIGLYCERIDES (test code = 2232) 88 MG/DL HDL CHOLESTEROL (test code = 2220) 80 MG/DL CALC LDL CHOL (test code = 2237) 88 MG/DL RISK RATIO LDL/HDL (test code = 1.10 RATIO 2238) COMPREHENSIVE METABOLIC [id number] 00:00:00 Test Item Value Reference Range Interpretation Comments GLUCOSE (test code = 2217) 300 MG/DL BUN (test code = 2208) 19 MG/DL CREATININE (test code = 2214) 4.15 MG/DL eGFR AMER. (test code 13 ML/MIN/1.73 = 39952) eGFR NON- AMER. (test 11 ML/MIN/1.73 code = 59293) CALC BUN/CREAT (test code = 5 RATIO [...] code = 2219) 13 U/L COMPREHENSIVE METABOLIC [id number] 00:00:00 Test Item Value Reference Range Interpretation Comments GLUCOSE (test code = 2217) 300 MG/DL BUN (test code = 2208) 19 MG/DL CREATININE (test code = 2214) 4.15 MG/DL eGFR AMER. (test code 13 ML/MIN/1.73 = 41148) eGFR NON- AMER. (test 11 ML/MIN/1.73 code = 71208) CALC BUN/CREAT (test code = 5 RATIO [...] ALT (test code = 2219) 13 U/L [id number] 00:00:00 Test Item Value Reference Range Interpretation Comments TSH, THIRD GENERATION (test code 0.661 UIU/ML = 2821) [id number] 00:00:00 Test Item Value Reference Range Interpretation Comments TSH, THIRD GENERATION (test code 0.661 UIU/ML = 2821) [id number] 00:00:00 Test Item Value Reference Range Interpretation Comments TSH, THIRD GENERATION (test code 0.661 UIU/ML = 2821) CBC W/AUTO [id number] 00:00:00 Test Item Value Reference Range Interpretation [...] code = 1015) 166 K/UL CBC W/AUTO [id number] 00:00:00 Test Item Value Reference Range Interpretation [...] code = 1015) 166 K/UL CBC W/AUTO [id number] 00:00:00 Test Item Value Reference Range Interpretation [...] (test code = 1015) 166 K/UL HEMOGLOBIN [id number] 00:00:00 Test Item Value Reference Range Interpretation Comments HEMOGLOBIN A1c (test code = 76942) 8.5 % HEMOGLOBIN [id number] 00:00:00 Test Item Value Reference Range Interpretation Comments HEMOGLOBIN A1c (test code = 85544) 8.5 % HEMOGLOBIN [id number] 00:00:00 Test Item Value Reference Range Interpretation Comments HEMOGLOBIN A1c (test code = 28412) 8.5 % [id number] 00:00:00 Test Item Value Reference Range Interpretation Comments TSH, THIRD GENERATION (test code 0.749 UIU/ML = 2821) [id number] 00:00:00 Test Item Value Reference Range Interpretation Comments TSH, THIRD GENERATION (test code 0.749 UIU/ML = 2821) [id number] 00:00:00 Test Item Value Reference Range Interpretation Comments TSH, THIRD GENERATION (test code 0.749 UIU/ML = 2821) HEMOGLOBIN [id number] 00:00:00 Test Item Value Reference Range Interpretation Comments HEMOGLOBIN A1c (test code = 23972) 8.2 % HEMOGLOBIN [id number] 00:00:00 Test Item Value Reference Range Interpretation Comments HEMOGLOBIN A1c (test code = 45395) 8.2 % HEMOGLOBIN [id number] 00:00:00 Test Item Value Reference Range Interpretation Comments HEMOGLOBIN A1c (test code = 82695) 8.2 % COMPREHENSIVE METABOLIC [id number] 00:00:00 Test Item Value Reference Range Interpretation Comments GLUCOSE (test code = 2217) 154 MG/DL BUN (test code = 2208) 44 MG/DL CREATININE (test code = 2214) 5.28 MG/DL eGFR AMER. (test code = 9 ML/MIN/1.73 04097) eGFR NON- AMER. (test 8 ML/MIN/1.73 code = 26835) CALC BUN/CREAT (test code = 8 RATIO [...] code = 2219) 16 U/L COMPREHENSIVE METABOLIC [id number] 00:00:00 Test Item Value Reference Range Interpretation Comments GLUCOSE (test code = 2217) 154 MG/DL BUN (test code = 2208) 44 MG/DL CREATININE (test code = 2214) 5.28 MG/DL eGFR AMER. (test code = 9 ML/MIN/1.73 55712) eGFR NON- AMER. (test 8 ML/MIN/1.73 code = 74382) CALC BUN/CREAT (test code = 8 RATIO [...] ALT (test code = 2219) 16 U/L [id number] 00:00:00 Test Item Value Reference Range Interpretation Comments TSH, THIRD GENERATION (test code 0.749 UIU/ML = 2821) [id number] 00:00:00 Test Item Value Reference Range Interpretation Comments TSH, THIRD GENERATION (test code 0.749 UIU/ML = 2821) [id number] 00:00:00 Test Item Value Reference Range Interpretation Comments TSH, THIRD GENERATION (test code 0.749 UIU/ML = 2821) HEMOGLOBIN [id number] 00:00:00 Test Item Value Reference Range Interpretation Comments HEMOGLOBIN A1c (test code = 70347) 8.2 % HEMOGLOBIN [id number] 00:00:00 Test Item Value Reference Range Interpretation Comments HEMOGLOBIN A1c (test code = 66462) 8.2 % HEMOGLOBIN [id number] 00:00:00 Test Item Value Reference Range Interpretation Comments HEMOGLOBIN A1c (test code = 45877) 8.2 % COMPREHENSIVE METABOLIC [id number] 00:00:00 Test Item Value Reference Range Interpretation Comments GLUCOSE (test code = 2217) 154 MG/DL BUN (test code = 2208) 44 MG/DL CREATININE (test code = 2214) 5.28 MG/DL eGFR AMER. (test code = 9 ML/MIN/1.73 52036) eGFR NON- AMER. (test 8 ML/MIN/1.73 code = 67235) CALC BUN/CREAT (test code = 8 RATIO [...] code = 2219) 16 U/L COMPREHENSIVE METABOLIC [id number] 00:00:00 Test Item Value Reference Range Interpretation Comments GLUCOSE (test code = 2217) 154 MG/DL BUN (test code = 2208) 44 MG/DL CREATININE (test code = 2214) 5.28 MG/DL eGFR AMER. (test code = 9 ML/MIN/1.73 05661) eGFR NON- AMER. (test 8 ML/MIN/1.73 code = 66402) CALC BUN/CREAT (test code = 8 RATIO 2235) SODIUM (test code = 2231) 141 MEQ/L POTASSIUM (test code = 2228) 4.8 MEQ/L CHLORIDE (test code = 2215) 99 MEQ/L CARBON DIOXIDE (test code = 23 MEQ/L 2205) CALCIUM (test code = 2209) 9.0 MG/DL PROTEIN, TOTAL (test code = 7.4 G/DL 2228) ALBUMIN (test code = 220) 4.2 G/DL CALC GLOBULIN (test code = 3.2 G/DL 2239) CALC A/G RATIO (test code = 1.3 RATIO 2233) BILIRUBIN, TOTAL (test code = 0.2 MG/DL 2206) ALKALINE PHOSPHATASE (test code 145 U/L = 2204) AST (test code = 2218) 24 U/L ALT (test code = 2219) 16 U/L [id number] 00:00:00 Test Item Value Reference Range Interpretation Comments TSH, THIRD GENERATION (test code 0.749 UIU/ML = 2821) [id number] 00:00:00 Test Item Value Reference Range Interpretation Comments TSH, THIRD GENERATION (test code 0.749 UIU/ML = 2821) [id number] 00:00:00 Test Item Value Reference Range Interpretation Comments TSH, THIRD GENERATION (test code 0.749 UIU/ML = 2821) HEMOGLOBIN [id number] 00:00:00 Test Item Value Reference Range Interpretation Comments HEMOGLOBIN A1c (test code = 86889) 8.2 % HEMOGLOBIN [id number] 00:00:00 Test Item Value Reference Range Interpretation Comments HEMOGLOBIN A1c (test code = 90158) 8.2 % COMPREHENSIVE METABOLIC [id number] 00:00:00 Test Item Value Reference Range Interpretation Comments GLUCOSE (test code = 2217) 154 MG/DL BUN (test code = 2208) 44 MG/DL CREATININE (test code = 2214) 5.28 MG/DL eGFR AMER. (test code = 9 ML/MIN/1.73 75930) eGFR NON- AMER. (test 8 ML/MIN/1.73 code = 94901) CALC BUN/CREAT (test code = 8 RATIO [...] ALT (test code = 2219) 16 U/L [id number] 00:00:00 Test Item Value Reference Range Interpretation Comments TSH, THIRD GENERATION (test code 0.749 UIU/ML = 2821) [id number] 00:00:00 Test Item Value Reference Range Interpretation Comments TSH, THIRD GENERATION (test code 0.749 UIU/ML = 2821) HEMOGLOBIN [id number] 00:00:00 Test Item Value Reference Range Interpretation Comments HEMOGLOBIN A1c (test code = 84571) 8.2 % HEMOGLOBIN [id number] 00:00:00 Test Item Value Reference Range Interpretation Comments HEMOGLOBIN A1c (test code = 41332) 8.2 % HEMOGLOBIN [id number] 00:00:00 Test Item Value Reference Range Interpretation Comments HEMOGLOBIN A1c (test code = 39542) 8.2 % COMPREHENSIVE METABOLIC [id number] 00:00:00 Test Item Value Reference Range Interpretation Comments GLUCOSE (test code = 2217) 154 MG/DL BUN (test code = 2208) 44 MG/DL CREATININE (test code = 2214) 5.28 MG/DL eGFR AMER. (test code = 9 ML/MIN/1.73 18013) eGFR NON- AMER. (test 8 ML/MIN/1.73 code = 19707) CALC BUN/CREAT (test code = 8 RATIO 2235) SODIUM (test code = 2231) 141 MEQ/L POTASSIUM (test code = 2228) 4.8 MEQ/L CHLORIDE (test code = 2215) 99 MEQ/L CARBON DIOXIDE (test code = 23 MEQ/L 220) CALCIUM (test code = 2209) 9.0 MG/DL PROTEIN, TOTAL (test code = 7.4 G/DL 222) ALBUMIN (test code = 2201) 4.2 G/DL CALC GLOBULIN (test code = 3.2 G/DL 2240) CALC A/G RATIO (test code = 1.3 RATIO 2234) BILIRUBIN, TOTAL (test code = 0.2 MG/DL 2206) ALKALINE PHOSPHATASE (test code 145 U/L = 2203) AST (test code = 2218) 24 U/L ALT (test code = 2219) 16 U/L COMPREHENSIVE METABOLIC [id number] 00:00:00 Test Item Value Reference Range Interpretation Comments GLUCOSE (test code = 2217) 154 MG/DL BUN (test code = 2208) 44 MG/DL CREATININE (test code = 2214) 5.28 MG/DL eGFR AMER. (test code = 9 ML/MIN/1.73 53719) eGFR NON- AMER. (test 8 ML/MIN/1.73 code = 00214) CALC BUN/CREAT (test code = 8 RATIO [...] ALT (test code = 2219) 16 U/L [id number] 00:00:00 Test Item Value Reference Range Interpretation Comments TSH, THIRD GENERATION (test code 0.749 UIU/ML = 2821) [id number] 00:00:00 Test Item Value Reference Range Interpretation Comments TSH, THIRD GENERATION (test code 0.749 UIU/ML = 2821) [id number] 00:00:00 Test Item Value Reference Range Interpretation Comments TSH, THIRD GENERATION (test code 0.749 UIU/ML = 2821) HEMOGLOBIN [id number] 00:00:00 Test Item Value Reference Range Interpretation Comments HEMOGLOBIN A1c (test code = 35350) 8.2 % HEMOGLOBIN [id number] 00:00:00 Test Item Value Reference Range Interpretation Comments HEMOGLOBIN A1c (test code = 89206) 8.2 % HEMOGLOBIN [id number] 00:00:00 Test Item Value Reference Range Interpretation Comments HEMOGLOBIN A1c (test code = 14911) 8.2 % COMPREHENSIVE METABOLIC [id number] 00:00:00 Test Item Value Reference Range Interpretation Comments GLUCOSE (test code = 2217) 154 MG/DL BUN (test code = 2208) 44 MG/DL CREATININE (test code = 2214) 5.28 MG/DL eGFR AMER. (test code = 9 ML/MIN/1.73 25478) eGFR NON- AMER. (test 8 ML/MIN/1.73 code = 53099) CALC BUN/CREAT (test code = 8 RATIO [...] A/G RATIO (test code = 1.3 RATIO 2233) BILIRUBIN, TOTAL (test code = 0.2 MG/DL 2206) ALKALINE PHOSPHATASE (test code 145 U/L = 2204) AST (test code = 2218) 24 U/L ALT (test code = 2219) 16 U/L COMPREHENSIVE METABOLIC [id number] 00:00:00 Test Item Value Reference Range Interpretation Comments GLUCOSE (test code = 2217) 154 MG/DL BUN (test code = 2208) 44 MG/DL CREATININE (test code = 2214) 5.28 MG/DL eGFR AMER. (test code = 9 ML/MIN/1.73 30749) eGFR NON- AMER. (test 8 ML/MIN/1.73 code = 57528) CALC BUN/CREAT (test code = 8 RATIO [...] A/G RATIO (test code = 1.3 RATIO 223) BILIRUBIN, TOTAL (test code = 0.2 MG/DL 2206) ALKALINE PHOSPHATASE (test code 145 U/L = 4) AST (test code = 2218) 24 U/L ALT (test code = 2219) 16 U/L COMPREHENSIVE METABOLIC [id number] 00:00:00 Test Item Value Reference Range Interpretation Comments GLUCOSE (test code = 2217) 229 MG/DL BUN (test code = 2208) 30 MG/DL CREATININE (test code = 2214) 4.17 MG/DL eGFR AMER. (test code 13 ML/MIN/1.73 = 80331) eGFR NON- AMER. (test 11 ML/MIN/1.73 code = 12179) CALC BUN/CREAT (test code = 7 RATIO [...] = 0.3 MG/DL 2207) ALKALINE PHOSPHATASE (test 140 U/L code = 2204) AST (test code = 2218) 22 U/L ALT (test code = 2219) 10 U/L COMPREHENSIVE METABOLIC [id number] 00:00:00 Test Item Value Reference Range Interpretation Comments GLUCOSE (test code = 2217) 229 MG/DL BUN (test code = 2208) 30 MG/DL CREATININE (test code = 2214) 4.17 MG/DL eGFR AMER. (test code 13 ML/MIN/1.73 = 02266) eGFR NON- AMER. (test 11 ML/MIN/1.73 code = 11570) CALC BUN/CREAT (test code = 7 RATIO [...] code = 2219) 10 U/L CBC W/AUTO [id number] 00:00:00 Test Item Value Reference Range Interpretation [...] code = 1015) 187 K/UL CBC W/AUTO [id number] 00:00:00 Test Item Value Reference Range Interpretation [...] code = 1015) 187 K/UL CBC W/AUTO [id number] 00:00:00 Test Item Value Reference Range Interpretation [...] (test code = 1015) 187 K/UL HEMOGLOBIN [id number] 00:00:00 Test Item Value Reference Range Interpretation Comments HEMOGLOBIN A1c (test code = 41329) 8.7 % HEMOGLOBIN [id number] 00:00:00 Test Item Value Reference Range Interpretation Comments HEMOGLOBIN A1c (test code = 42168) 8.7 % HEMOGLOBIN [id number] 00:00:00 Test Item Value Reference Range Interpretation Comments HEMOGLOBIN A1c (test code = 83201) 8.7 % COMPREHENSIVE METABOLIC [id number] 00:00:00 Test Item Value Reference Range Interpretation Comments GLUCOSE (test code = 2217) 229 MG/DL BUN (test code = 2208) 30 MG/DL CREATININE (test code = 2214) 4.17 MG/DL eGFR AMER. (test code 13 ML/MIN/1.73 = 90687) eGFR NON- AMER. (test 11 ML/MIN/1.73 code = 67248) CALC BUN/CREAT (test code = 7 RATIO [...] A/G RATIO (test code = 1.2 RATIO 4) BILIRUBIN, TOTAL (test code = 0.3 MG/DL 2206) ALKALINE PHOSPHATASE (test 140 U/L code = 2204) AST (test code = 2218) 22 U/L ALT (test code = 2219) 10 U/L COMPREHENSIVE METABOLIC [id number] 00:00:00 Test Item Value Reference Range Interpretation Comments GLUCOSE (test code = 2217) 229 MG/DL BUN (test code = 2208) 30 MG/DL CREATININE (test code = 2214) 4.17 MG/DL eGFR AMER. (test code 13 ML/MIN/1.73 = 43024) eGFR NON- AMER. (test 11 ML/MIN/1.73 code = 01032) CALC BUN/CREAT (test code = 7 RATIO [...] code = 2219) 10 U/L CBC W/AUTO [id number] 00:00:00 Test Item Value Reference Range Interpretation [...] code = 1015) 187 K/UL CBC W/AUTO [id number] 00:00:00 Test Item Value Reference Range Interpretation [...] code = 1015) 187 K/UL CBC W/AUTO [id number] 00:00:00 Test Item Value Reference Range Interpretation [...] (test code = 1015) 187 K/UL HEMOGLOBIN [id number] 00:00:00 Test Item Value Reference Range Interpretation Comments HEMOGLOBIN A1c (test code = 62220) 8.7 % HEMOGLOBIN [id number] 00:00:00 Test Item Value Reference Range Interpretation Comments HEMOGLOBIN A1c (test code = 32722) 8.7 % HEMOGLOBIN [id number] 00:00:00 Test Item Value Reference Range Interpretation Comments HEMOGLOBIN A1c (test code = 71958) 8.7 % COMPREHENSIVE METABOLIC [id number] 00:00:00 Test Item Value Reference Range Interpretation Comments GLUCOSE (test code = 2217) 229 MG/DL BUN (test code = 2208) 30 MG/DL CREATININE (test code = 2214) 4.17 MG/DL eGFR AMER. (test code 13 ML/MIN/1.73 = 16321) eGFR NON- AMER. (test 11 ML/MIN/1.73 code = 31541) CALC BUN/CREAT (test code = 7 RATIO [...] = 0.3 MG/DL 2207) ALKALINE PHOSPHATASE (test 140 U/L code = 2204) AST (test code = 2218) 22 U/L ALT (test code = 2219) 10 U/L COMPREHENSIVE METABOLIC [id number] 00:00:00 Test Item Value Reference Range Interpretation Comments GLUCOSE (test code = 2217) 229 MG/DL BUN (test code = 2208) 30 MG/DL CREATININE (test code = 2214) 4.17 MG/DL eGFR AMER. (test code 13 ML/MIN/1.73 = 13447) eGFR NON- AMER. (test 11 ML/MIN/1.73 code = 02977) CALC BUN/CREAT (test code = 7 RATIO [...] = 0.3 MG/DL 2207) ALKALINE PHOSPHATASE (test 140 U/L code = 2204) AST (test code = 2218) 22 U/L ALT (test code = 2219) 10 U/L CBC W/AUTO [id number] 00:00:00 Test Item Value Reference Range Interpretation [...] code = 1015) 187 K/UL CBC W/AUTO [id number] 00:00:00 Test Item Value Reference Range Interpretation [...] (test code = 1015) 187 K/UL HEMOGLOBIN [id number] 00:00:00 Test Item Value Reference Range Interpretation Comments HEMOGLOBIN A1c (test code = 28475) 8.7 % HEMOGLOBIN [id number] 00:00:00 Test Item Value Reference Range Interpretation Comments HEMOGLOBIN A1c (test code = 58653) 8.7 % COMPREHENSIVE METABOLIC [id number] 00:00:00 Test Item Value Reference Range Interpretation Comments GLUCOSE (test code = 2217) 229 MG/DL BUN (test code = 2208) 30 MG/DL CREATININE (test code = 2214) 4.17 MG/DL eGFR AMER. (test code 13 ML/MIN/1.73 = 57582) eGFR NON- AMER. (test 11 ML/MIN/1.73 code = 28073) CALC BUN/CREAT (test code = 7 RATIO [...] code = 2219) 10 U/L CBC W/AUTO [id number] 00:00:00 Test Item Value Reference Range Interpretation [...] code = 1015) 187 K/UL CBC W/AUTO [id number] 00:00:00 Test Item Value Reference Range Interpretation [...] code = 1015) 187 K/UL CBC W/AUTO [id number] 00:00:00 Test Item Value Reference Range Interpretation [...] (test code = 1015) 187 K/UL HEMOGLOBIN [id number] 00:00:00 Test Item Value Reference Range Interpretation Comments HEMOGLOBIN A1c (test code = 91983) 8.7 % HEMOGLOBIN [id number] 00:00:00 Test Item Value Reference Range Interpretation Comments HEMOGLOBIN A1c (test code = 90345) 8.7 % HEMOGLOBIN [id number] 00:00:00 Test Item Value Reference Range Interpretation Comments HEMOGLOBIN A1c (test code = 57705) 8.7 % COMPREHENSIVE METABOLIC [id number] 00:00:00 Test Item Value Reference Range Interpretation Comments GLUCOSE (test code = 2217) 229 MG/DL BUN (test code = 2208) 30 MG/DL CREATININE (test code = 2214) 4.17 MG/DL eGFR AMER. (test code 13 ML/MIN/1.73 = 26422) eGFR NON- AMER. (test 11 ML/MIN/1.73 code = 24511) CALC BUN/CREAT (test code = 7 RATIO [...] code = 2219) 10 U/L COMPREHENSIVE METABOLIC [id number] 00:00:00 Test Item Value Reference Range Interpretation Comments GLUCOSE (test code = 2217) 229 MG/DL BUN (test code = 2208) 30 MG/DL CREATININE (test code = 2214) 4.17 MG/DL eGFR AMER. (test code 13 ML/MIN/1.73 = 81172) eGFR NON- AMER. (test 11 ML/MIN/1.73 code = 36082) CALC BUN/CREAT (test code = 7 RATIO [...] BILIRUBIN, TOTAL (test code = 0.3 MG/DL 7) ALKALINE PHOSPHATASE (test 140 U/L code = 2204) AST (test code = 2218) 22 U/L ALT (test code = 2219) 10 U/L CBC W/AUTO [id number] 00:00:00 Test Item Value Reference Range Interpretation [...] code = 1015) 187 K/UL CBC W/AUTO [id number] 00:00:00 Test Item Value Reference Range Interpretation [...] code = 1015) 187 K/UL CBC W/AUTO [id number] 00:00:00 Test Item Value Reference Range Interpretation [...] (test code = 1015) 187 K/UL HEMOGLOBIN [id number] 00:00:00 Test Item Value Reference Range Interpretation Comments HEMOGLOBIN A1c (test code = 84113) 8.7 % HEMOGLOBIN [id number] 00:00:00 Test Item Value Reference Range Interpretation Comments HEMOGLOBIN A1c (test code = 74632) 8.7 % HEMOGLOBIN [id number] 00:00:00 Test Item Value Reference Range Interpretation Comments HEMOGLOBIN A1c (test code = 77628) 8.7 % SURGICAL [id number] 08:04:00 RUN DATE: 07/06/18 [facility] *LIVE* PAGE 1 RUN TIME: 08 Specimen Inquiry RUN USER: INTERFACE --------- ---PATIENT: MARGARITA CORONADO LOC: SureshNAOMI U #: [id number] AGE/SX: 58/F ROOM: [id number] DR: Jonathan Reid MD : 56 BED: DIS: STATUS: DEP [facility] [place] TLOC: SPEC #: [id number] RECD: 07/01/18 STATUS: QUIN #: [id number] JENIFFER: 07/01/[address] [facility] [address]: Jonathan Reid MD ENTERED: 07/05/18 SP TYPE: SURG SPEC OTHR DR: No Primary or Family PhysicianORDERED: GM LEVEL 4 CODES: [id number] - COLON, NOS COPIES TO:No Primary or Family Physician Jonathan Reid MD [address] [address] PROCEDURES: GM LEVEL 4 (Incomplete) TISSUES: 1. [...] labeled transverse colon polyp are 4 hinson tissuefragments measuring up to 0.3 cm (B). Received in formalin labeled descending colon polyp is one hinson tissue fragment measuring up to 0.3 cm (C). 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 CONTINUED ON NEXT PAGE - RUN DATE:07/06/18 [facility] *LIVE* PAGE 2 RUN TIME: 803 Specimen Inquiry RUN USER: INTERFACE --SPEC #: [id number]: MARGARITA CORONADO #[id number] (Continued) POST-OP DIAGNOSIS Colon polyp PRE-OP DIAGNOSIS Colon screen-- Signed SIGNATURE ON FILE RajivlashellFrederick DO 07/06/18 0804 END OF REPORT PTH, INTACT, WITH CALCIUM, PHOSPHORUS, [id number] 00:00:00 Test Item Value Reference Range Interpretation Comments INTACT PTH (test code = 5005) 256 PG/ML CALCIUM (test code = 2209) 9.0 MG/DL PHOSPHORUS (test code = 2227) 4.6 MG/DL CREATININE (test code = 2214) 3.71 MG/DL eGFR AMER. (test code 15 ML/MIN/1.73 = 92322) eGFR NON- AMER. (test 13 ML/MIN/1.73 code = 20294) PTH, INTACT, WITH CALCIUM, PHOSPHORUS, [id number] 00:00:00 Test Item Value Reference Range Interpretation Comments INTACT PTH (test code = 5005) 256 PG/ML CALCIUM (test code = 2209) 9.0 MG/DL PHOSPHORUS (test code = 2227) 4.6 MG/DL CREATININE (test code = 2214) 3.71 MG/DL eGFR AMER. (test code 15 ML/MIN/1.73 = 97712) eGFR NON- AMER. (test 13 ML/MIN/1.73 code = 60078) PTH, INTACT, WITH CALCIUM, PHOSPHORUS, [id number] 00:00:00 Test Item Value Reference Range Interpretation Comments INTACT PTH (test code = 5005) 256 PG/ML CALCIUM (test code = 2209) 9.0 MG/DL PHOSPHORUS (test code = 2227) 4.6 MG/DL CREATININE (test code = 2214) 3.71 MG/DL eGFR AMER. (test code 15 ML/MIN/1.73 = 20826) eGFR NON- AMER. (test 13 ML/MIN/1.73 code = 19525) PTH, INTACT, WITH CALCIUM, PHOSPHORUS, [id number] 00:00:00 Test Item Value Reference Range Interpretation Comments INTACT PTH (test code = 5005) 256 PG/ML CALCIUM (test code = 2209) 9.0 MG/DL PHOSPHORUS (test code = 2227) 4.6 MG/DL CREATININE (test code = 2214) 3.71 MG/DL eGFR AMER. (test code 15 ML/MIN/1.73 = 54013) eGFR NON- AMER. (test 13 ML/MIN/1.73 code = 52067) PTH, INTACT, WITH CALCIUM, PHOSPHORUS, [id number] 00:00:00 Test Item Value Reference Range Interpretation Comments INTACT PTH (test code = 5005) 256 PG/ML CALCIUM (test code = 2209) 9.0 MG/DL PHOSPHORUS (test code = 2227) 4.6 MG/DL CREATININE (test code = 2214) 3.71 MG/DL eGFR AMER. (test code 15 ML/MIN/1.73 = 23708) eGFR NON- AMER. (test 13 ML/MIN/1.73 code = 71438) PTH, INTACT, WITH CALCIUM, PHOSPHORUS, [id number] 00:00:00 Test Item Value Reference Range Interpretation Comments INTACT PTH (test code = 5005) 256 PG/ML CALCIUM (test code = 2209) 9.0 MG/DL PHOSPHORUS (test code = 2227) 4.6 MG/DL CREATININE (test code = 2214) 3.71 MG/DL eGFR AMER. (test code 15 ML/MIN/1.73 = 48881) eGFR NON- AMER. (test 13 ML/MIN/1.73 code = 78357) PTH, INTACT, WITH CALCIUM, PHOSPHORUS, [id number] 00:00:00 Test Item Value Reference Range Interpretation Comments INTACT PTH (test code = 5005) 256 PG/ML CALCIUM (test code = 2209) 9.0 MG/DL PHOSPHORUS (test code = 2227) 4.6 MG/DL CREATININE (test code = 2214) 3.71 MG/DL eGFR AMER. (test code 15 ML/MIN/1.73 = 12235) eGFR NON- AMER. (test 13 ML/MIN/1.73 code = 22633) PTH, INTACT, WITH CALCIUM, PHOSPHORUS, [id number] 00:00:00 Test Item Value Reference Range Interpretation Comments INTACT PTH (test code = 5005) 256 PG/ML CALCIUM (test code = 2209) 9.0 MG/DL PHOSPHORUS (test code = 2227) 4.6 MG/DL CREATININE (test code = 2214) 3.71 MG/DL eGFR AMER. (test code 15 ML/MIN/1.73 = 43171) eGFR NON- AMER. (test 13 ML/MIN/1.73 code = 67966) PTH, INTACT, WITH CALCIUM, PHOSPHORUS, [id number] 00:00:00 Test Item Value Reference Range Interpretation Comments INTACT PTH (test code = 5005) 256 PG/ML CALCIUM (test code = 2209) 9.0 MG/DL PHOSPHORUS (test code = 2227) 4.6 MG/DL CREATININE (test code = 2214) 3.71 MG/DL eGFR AMER. (test code 15 ML/MIN/1.73 = 63223) eGFR NON- AMER. (test 13 ML/MIN/1.73 code = 09298) PTH, INTACT, WITH CALCIUM, PHOSPHORUS, [id number] 00:00:00 Test Item Value Reference Range Interpretation Comments INTACT PTH (test code = 5005) 256 PG/ML CALCIUM (test code = 2209) 9.0 MG/DL PHOSPHORUS (test code = 2227) 4.6 MG/DL CREATININE (test code = 2214) 3.71 MG/DL eGFR AMER. (test code 15 ML/MIN/1.73 = 27432) eGFR NON- AMER. (test 13 ML/MIN/1.73 code = 44132) PTH, INTACT, WITH CALCIUM, PHOSPHORUS, [id number] 00:00:00 Test Item Value Reference Range Interpretation Comments INTACT PTH (test code = 5005) 256 PG/ML CALCIUM (test code = 2209) 9.0 MG/DL PHOSPHORUS (test code = 2227) 4.6 MG/DL CREATININE (test code = 2214) 3.71 MG/DL eGFR AMER. (test code 15 ML/MIN/1.73 = 14433) eGFR NON- AMER. (test 13 ML/MIN/1.73 code = 15435) PTH, INTACT, WITH CALCIUM, PHOSPHORUS, [id number] 00:00:00 Test Item Value Reference Range Interpretation Comments INTACT PTH (test code = 5005) 256 PG/ML CALCIUM (test code = 2209) 9.0 MG/DL PHOSPHORUS (test code = 2227) 4.6 MG/DL CREATININE (test code = 2214) 3.71 MG/DL eGFR AMER. (test code 15 ML/MIN/1.73 = 53143) eGFR NON- AMER. (test 13 ML/MIN/1.73 code = 17769) PTH, INTACT, WITH CALCIUM, PHOSPHORUS, [id number] 00:00:00 Test Item Value Reference Range Interpretation Comments INTACT PTH (test code = 5005) 256 PG/ML CALCIUM (test code = 2209) 9.0 MG/DL PHOSPHORUS (test code = 2227) 4.6 MG/DL CREATININE (test code = 2214) 3.71 MG/DL eGFR AMER. (test code 15 ML/MIN/1.73 = 67472) eGFR NON- AMER. (test 13 ML/MIN/1.73 code = 62792) PTH, INTACT, WITH CALCIUM, PHOSPHORUS, [id number] 00:00:00 Test Item Value Reference Range Interpretation Comments INTACT PTH (test code = 5005) 256 PG/ML CALCIUM (test code = 2209) 9.0 MG/DL PHOSPHORUS (test code = 2227) 4.6 MG/DL CREATININE (test code = 2214) 3.71 MG/DL eGFR AMER. (test code 15 ML/MIN/1.73 = 91535) eGFR NON- AMER. (test 13 ML/MIN/1.73 code = 46532) [id number] 00:00:00 Test Item Value Reference Range Interpretation Comments TSH, THIRD GENERATION (test code 2.370 UIU/ML = 2821) VITAMIN D, 25 [id number] 00:00:00 Test Item Value Reference Range Interpretation Comments VITAMIN D, 25 OH (test code = 4958) 31 NG/ML VITAMIN D, 25 [id number] 00:00:00 Test Item Value Reference Range Interpretation Comments VITAMIN D, 25 OH (test code = 4958) 31 NG/ML HEMOGLOBIN [id number] 00:00:00 Test Item Value Reference Range Interpretation Comments HEMOGLOBIN A1c (test code = 64408) 8.0 % HEMOGLOBIN [id number] 00:00:00 Test Item Value Reference Range Interpretation Comments HEMOGLOBIN A1c (test code = 16157) 8.0 % HEMOGLOBIN [id number] 00:00:00 Test Item Value Reference Range Interpretation Comments HEMOGLOBIN A1c (test code = 16538) 8.0 % LIPID [id number] 00:00:00 Test Item Value Reference Range Interpretation Comments CHOLESTEROL (test code = 2210) 183 MG/DL TRIGLYCERIDES (test code = 2232) 126 MG/DL HDL CHOLESTEROL (test code = 2220) 67 MG/DL CALC LDL CHOL (test code = 2237) 91 MG/DL RISK RATIO LDL/HDL (test code = 1.36 RATIO 2238) LIPID [id number] 00:00:00 Test Item Value Reference Range Interpretation Comments CHOLESTEROL (test code = 2210) 183 MG/DL TRIGLYCERIDES (test code = 2232) 126 MG/DL HDL CHOLESTEROL (test code = 2220) 67 MG/DL CALC LDL CHOL (test code = 2237) 91 MG/DL RISK RATIO LDL/HDL (test code = 1.36 RATIO 2238) COMPREHENSIVE METABOLIC [id number] 00:00:00 Test Item Value Reference Range Interpretation Comments GLUCOSE (test code = 2217) 220 MG/DL BUN (test code = 2208) 55 MG/DL CREATININE (test code = 2214) 3.71 MG/DL eGFR AMER. (test code 15 ML/MIN/1.73 = 01236) eGFR NON- AMER. (test 13 ML/MIN/1.73 code = 46474) CALC BUN/CREAT (test code = 15 RATIO [...] code = 2219) 15 U/L COMPREHENSIVE METABOLIC [id number] 00:00:00 Test Item Value Reference Range Interpretation Comments GLUCOSE (test code = 2217) 220 MG/DL BUN (test code = 2208) 55 MG/DL CREATININE (test code = 2214) 3.71 MG/DL eGFR AMER. (test code 15 ML/MIN/1.73 = 46857) eGFR NON- AMER. (test 13 ML/MIN/1.73 code = 94586) CALC BUN/CREAT (test code = 15 RATIO [...] = 2219) 15 U/L MICROALBUMIN/CREATININE, RANDOM AND [id number] 00:00:00 Test Item Value Reference Range Interpretation Comments CREATININE, URINE, CONC. (test 38.3 MG/DL code = 2072) ALBUMIN, URINE, RANDOM (test code 275.7 MG/DL = 35773) CALC ALBUMIN/CREAT, RND (test 7198 MG/G code = 80576) MICROALBUMIN/CREATININE, RANDOM AND [id number] 00:00:00 Test Item Value Reference Range Interpretation Comments CREATININE, URINE, CONC. (test 38.3 MG/DL code = 2072) ALBUMIN, URINE, RANDOM (test code 275.7 MG/DL = 34881) CALC ALBUMIN/CREAT, RND (test 7198 MG/G code = 13928) CBC W/AUTO [id number] 00:00:00 Test Item Value Reference Range Interpretation [...] code = 1015) 233 K/UL CBC W/AUTO [id number] 00:00:00 Test Item Value Reference Range Interpretation [...] code = 1015) 233 K/UL CBC W/AUTO [id number] 00:00:00 Test Item Value Reference Range Interpretation [...] COUNT (test code = 1015) 233 K/UL [id number] 00:00:00 Test Item Value Reference Range Interpretation Comments TSH, THIRD GENERATION (test code 2.370 UIU/ML = 2821) [id number] 00:00:00 Test Item Value Reference Range Interpretation Comments TSH, THIRD GENERATION (test code 2.370 UIU/ML = 2821) [id number] 00:00:00 Test Item Value Reference Range Interpretation Comments TSH, THIRD GENERATION (test code 2.370 UIU/ML = 2821) VITAMIN D, 25 [id number] 00:00:00 Test Item Value Reference Range Interpretation Comments VITAMIN D, 25 OH (test code = 4958) 31 NG/ML VITAMIN D, 25 [id number] 00:00:00 Test Item Value Reference Range Interpretation Comments VITAMIN D, 25 OH (test code = 4958) 31 NG/ML HEMOGLOBIN [id number] 00:00:00 Test Item Value Reference Range Interpretation Comments HEMOGLOBIN A1c (test code = 49514) 8.0 % HEMOGLOBIN [id number] 00:00:00 Test Item Value Reference Range Interpretation Comments HEMOGLOBIN A1c (test code = 69925) 8.0 % HEMOGLOBIN [id number] 00:00:00 Test Item Value Reference Range Interpretation Comments HEMOGLOBIN A1c (test code = 09515) 8.0 % LIPID [id number] 00:00:00 Test Item Value Reference Range Interpretation Comments CHOLESTEROL (test code = 2210) 183 MG/DL TRIGLYCERIDES (test code = 2232) 126 MG/DL HDL CHOLESTEROL (test code = 2220) 67 MG/DL CALC LDL CHOL (test code = 2237) 91 MG/DL RISK RATIO LDL/HDL (test code = 1.36 RATIO 2238) LIPID [id number] 00:00:00 Test Item Value Reference Range Interpretation Comments CHOLESTEROL (test code = 2210) 183 MG/DL TRIGLYCERIDES (test code = 2232) 126 MG/DL HDL CHOLESTEROL (test code = 2220) 67 MG/DL CALC LDL CHOL (test code = 2237) 91 MG/DL RISK RATIO LDL/HDL (test code = 1.36 RATIO 2238) COMPREHENSIVE METABOLIC [id number] 00:00:00 Test Item Value Reference Range Interpretation Comments GLUCOSE (test code = 2217) 220 MG/DL BUN (test code = 2208) 55 MG/DL CREATININE (test code = 2214) 3.71 MG/DL eGFR AMER. (test code 15 ML/MIN/1.73 = 35363) eGFR NON- AMER. (test 13 ML/MIN/1.73 code = 83236) CALC BUN/CREAT (test code = 15 RATIO 2235) SODIUM (test code = 2231) 139 MEQ/L POTASSIUM (test code = 2228) 5.7 MEQ/L CHLORIDE (test code = 2215) 102 MEQ/L CARBON DIOXIDE (test code = 24 MEQ/L 220) CALCIUM (test code = 2209) 9.0 MG/DL PROTEIN, TOTAL (test code = 7.1 G/DL 222) ALBUMIN (test code = 2201) 3.8 G/DL CALC GLOBULIN (test code = 3.3 G/DL 2240) CALC A/G RATIO (test code = 1.2 RATIO 2234) BILIRUBIN, TOTAL (test code = 0.3 MG/DL 2206) ALKALINE PHOSPHATASE (test 202 U/L code = 2204) AST (test code = 2218) 26 U/L ALT (test code = 2219) 15 U/L COMPREHENSIVE METABOLIC [id number] 00:00:00 Test Item Value Reference Range Interpretation Comments GLUCOSE (test code = 2217) 220 MG/DL BUN (test code = 2208) 55 MG/DL CREATININE (test code = 2214) 3.71 MG/DL eGFR AMER. (test code 15 ML/MIN/1.73 = 10382) eGFR NON- AMER. (test 13 ML/MIN/1.73 code = 70284) CALC BUN/CREAT (test code = 15 RATIO [...] = 2219) 15 U/L MICROALBUMIN/CREATININE, RANDOM AND [id number] 00:00:00 Test Item Value Reference Range Interpretation Comments CREATININE, URINE, CONC. (test 38.3 MG/DL code = 2072) ALBUMIN, URINE, RANDOM (test code 275.7 MG/DL = 80330) CALC ALBUMIN/CREAT, RND (test 7198 MG/G code = 46805) MICROALBUMIN/CREATININE, RANDOM AND [id number] 00:00:00 Test Item Value Reference Range Interpretation Comments CREATININE, URINE, CONC. (test 38.3 MG/DL code = 2072) ALBUMIN, URINE, RANDOM (test code 275.7 MG/DL = 93086) CALC ALBUMIN/CREAT, RND (test 7198 MG/G code = 31671) CBC W/AUTO [id number] 00:00:00 Test Item Value Reference Range Interpretation [...] code = 1015) 233 K/UL CBC W/AUTO [id number] 00:00:00 Test Item Value Reference Range Interpretation [...] code = 1015) 233 K/UL CBC W/AUTO [id number] 00:00:00 Test Item Value Reference Range Interpretation [...] COUNT (test code = 1015) 233 K/UL [id number] 00:00:00 Test Item Value Reference Range Interpretation Comments TSH, THIRD GENERATION (test code 2.370 UIU/ML = 2821) [id number] 00:00:00 Test Item Value Reference Range Interpretation Comments TSH, THIRD GENERATION (test code 2.370 UIU/ML = 2821) [id number] 00:00:00 Test Item Value Reference Range Interpretation Comments TSH, THIRD GENERATION (test code 2.370 UIU/ML = 2821) VITAMIN D, 25 [id number] 00:00:00 Test Item Value Reference Range Interpretation Comments VITAMIN D, 25 OH (test code = 4958) 31 NG/ML VITAMIN D, 25 [id number] 00:00:00 Test Item Value Reference Range Interpretation Comments VITAMIN D, 25 OH (test code = 4958) 31 NG/ML HEMOGLOBIN [id number] 00:00:00 Test Item Value Reference Range Interpretation Comments HEMOGLOBIN A1c (test code = 41789) 8.0 % HEMOGLOBIN [id number] 00:00:00 Test Item Value Reference Range Interpretation Comments HEMOGLOBIN A1c (test code = 46368) 8.0 % HEMOGLOBIN [id number] 00:00:00 Test Item Value Reference Range Interpretation Comments HEMOGLOBIN A1c (test code = 11863) 8.0 % LIPID [id number] 00:00:00 Test Item Value Reference Range Interpretation Comments CHOLESTEROL (test code = 2210) 183 MG/DL TRIGLYCERIDES (test code = 2232) 126 MG/DL HDL CHOLESTEROL (test code = 2220) 67 MG/DL CALC LDL CHOL (test code = 2237) 91 MG/DL RISK RATIO LDL/HDL (test code = 1.36 RATIO 2238) LIPID [id number] 00:00:00 Test Item Value Reference Range Interpretation Comments CHOLESTEROL (test code = 2210) 183 MG/DL TRIGLYCERIDES (test code = 2232) 126 MG/DL HDL CHOLESTEROL (test code = 2220) 67 MG/DL CALC LDL CHOL (test code = 2237) 91 MG/DL RISK RATIO LDL/HDL (test code = 1.36 RATIO 2238) COMPREHENSIVE METABOLIC [id number] 00:00:00 Test Item Value Reference Range Interpretation Comments GLUCOSE (test code = 2217) 220 MG/DL BUN (test code = 2208) 55 MG/DL CREATININE (test code = 2214) 3.71 MG/DL eGFR AMER. (test code 15 ML/MIN/1.73 = 64267) eGFR NON- AMER. (test 13 ML/MIN/1.73 code = 02206) CALC BUN/CREAT (test code = 15 RATIO [...] code = 2219) 15 U/L COMPREHENSIVE METABOLIC [id number] 00:00:00 Test Item Value Reference Range Interpretation Comments GLUCOSE (test code = 2217) 220 MG/DL BUN (test code = 2208) 55 MG/DL CREATININE (test code = 2214) 3.71 MG/DL eGFR AMER. (test code 15 ML/MIN/1.73 = 80223) eGFR NON- AMER. (test 13 ML/MIN/1.73 code = 86339) CALC BUN/CREAT (test code = 15 RATIO [...] = 2219) 15 U/L MICROALBUMIN/CREATININE, RANDOM AND [id number] 00:00:00 Test Item Value Reference Range Interpretation Comments CREATININE, URINE, CONC. (test 38.3 MG/DL code = 2072) ALBUMIN, URINE, RANDOM (test code 275.7 MG/DL = 49636) CALC ALBUMIN/CREAT, RND (test 7198 MG/G code = 36482) MICROALBUMIN/CREATININE, RANDOM AND [id number] 00:00:00 Test Item Value Reference Range Interpretation Comments CREATININE, URINE, CONC. (test 38.3 MG/DL code = 2072) ALBUMIN, URINE, RANDOM (test code 275.7 MG/DL = 18452) CALC ALBUMIN/CREAT, RND (test 7198 MG/G code = 22071) CBC W/AUTO [id number] 00:00:00 Test Item Value Reference Range Interpretation [...] code = 1015) 233 K/UL CBC W/AUTO [id number] 00:00:00 Test Item Value Reference Range Interpretation [...] COUNT (test code = 1015) 233 K/UL [id number] 00:00:00 Test Item Value Reference Range Interpretation Comments TSH, THIRD GENERATION (test code 2.370 UIU/ML = 2821) [id number] 00:00:00 Test Item Value Reference Range Interpretation Comments TSH, THIRD GENERATION (test code 2.370 UIU/ML = 2821) VITAMIN D, 25 [id number] 00:00:00 Test Item Value Reference Range Interpretation Comments VITAMIN D, 25 OH (test code = 4958) 31 NG/ML HEMOGLOBIN [id number] 00:00:00 Test Item Value Reference Range Interpretation Comments HEMOGLOBIN A1c (test code = 72487) 8.0 % HEMOGLOBIN [id number] 00:00:00 Test Item Value Reference Range Interpretation Comments HEMOGLOBIN A1c (test code = 42809) 8.0 % LIPID [id number] 00:00:00 Test Item Value Reference Range Interpretation Comments CHOLESTEROL (test code = 2210) 183 MG/DL TRIGLYCERIDES (test code = 2232) 126 MG/DL HDL CHOLESTEROL (test code = 2220) 67 MG/DL CALC LDL CHOL (test code = 2237) 91 MG/DL RISK RATIO LDL/HDL (test code = 1.36 RATIO 2238) COMPREHENSIVE METABOLIC [id number] 00:00:00 Test Item Value Reference Range Interpretation Comments GLUCOSE (test code = 2217) 220 MG/DL BUN (test code = 2208) 55 MG/DL CREATININE (test code = 2214) 3.71 MG/DL eGFR AMER. (test code 15 ML/MIN/1.73 = 63506) eGFR NON- AMER. (test 13 ML/MIN/1.73 code = 50104) CALC BUN/CREAT (test code = 15 RATIO [...] = 2219) 15 U/L MICROALBUMIN/CREATININE, RANDOM AND [id number] 00:00:00 Test Item Value Reference Range Interpretation Comments CREATININE, URINE, CONC. (test 38.3 MG/DL code = 2072) ALBUMIN, URINE, RANDOM (test code 275.7 MG/DL = 67960) CALC ALBUMIN/CREAT, RND (test 7198 MG/G code = 06050) CBC W/AUTO [id number] 00:00:00 Test Item Value Reference Range Interpretation [...] code = 1015) 233 K/UL CBC W/AUTO [id number] 00:00:00 Test Item Value Reference Range Interpretation [...] code = 1015) 233 K/UL CBC W/AUTO [id number] 00:00:00 Test Item Value Reference Range Interpretation [...] COUNT (test code = 1015) 233 K/UL [id number] 00:00:00 Test Item Value Reference Range Interpretation Comments TSH, THIRD GENERATION (test code 2.370 UIU/ML = 2821) [id number] 00:00:00 Test Item Value Reference Range Interpretation Comments TSH, THIRD GENERATION (test code 2.370 UIU/ML = 2821) [id number] 00:00:00 Test Item Value Reference Range Interpretation Comments TSH, THIRD GENERATION (test code 2.370 UIU/ML = 2821) VITAMIN D, 25 [id number] 00:00:00 Test Item Value Reference Range Interpretation Comments VITAMIN D, 25 OH (test code = 4958) 31 NG/ML VITAMIN D, 25 [id number] 00:00:00 Test Item Value Reference Range Interpretation Comments VITAMIN D, 25 OH (test code = 4958) 31 NG/ML HEMOGLOBIN [id number] 00:00:00 Test Item Value Reference Range Interpretation Comments HEMOGLOBIN A1c (test code = 75590) 8.0 % HEMOGLOBIN [id number] 00:00:00 Test Item Value Reference Range Interpretation Comments HEMOGLOBIN A1c (test code = 47808) 8.0 % HEMOGLOBIN [id number] 00:00:00 Test Item Value Reference Range Interpretation Comments HEMOGLOBIN A1c (test code = 07062) 8.0 % LIPID [id number] 00:00:00 Test Item Value Reference Range Interpretation Comments CHOLESTEROL (test code = 2210) 183 MG/DL TRIGLYCERIDES (test code = 2232) 126 MG/DL HDL CHOLESTEROL (test code = 2220) 67 MG/DL CALC LDL CHOL (test code = 2237) 91 MG/DL RISK RATIO LDL/HDL (test code = 1.36 RATIO 2238) LIPID [id number] 00:00:00 Test Item Value Reference Range Interpretation Comments CHOLESTEROL (test code = 2210) 183 MG/DL TRIGLYCERIDES (test code = 2232) 126 MG/DL HDL CHOLESTEROL (test code = 2220) 67 MG/DL CALC LDL CHOL (test code = 2237) 91 MG/DL RISK RATIO LDL/HDL (test code = 1.36 RATIO 2238) COMPREHENSIVE METABOLIC [id number] 00:00:00 Test Item Value Reference Range Interpretation Comments GLUCOSE (test code = 2217) 220 MG/DL BUN (test code = 2208) 55 MG/DL CREATININE (test code = 2214) 3.71 MG/DL eGFR AMER. (test code 15 ML/MIN/1.73 = 22546) eGFR NON- AMER. (test 13 ML/MIN/1.73 code = 37833) CALC BUN/CREAT (test code = 15 RATIO [...] code = 2219) 15 U/L COMPREHENSIVE METABOLIC [id number] 00:00:00 Test Item Value Reference Range Interpretation Comments GLUCOSE (test code = 2217) 220 MG/DL BUN (test code = 2208) 55 MG/DL CREATININE (test code = 2214) 3.71 MG/DL eGFR AMER. (test code 15 ML/MIN/1.73 = 05292) eGFR NON- AMER. (test 13 ML/MIN/1.73 code = 57717) CALC BUN/CREAT (test code = 15 RATIO [...] 0) CALC A/G RATIO (test code = 1.2 RATIO 2233) BILIRUBIN, TOTAL (test code = 0.3 MG/DL 2206) ALKALINE PHOSPHATASE (test 202 U/L code = 2204) AST (test code = 2218) 26 U/L ALT (test code = 2219) 15 U/L MICROALBUMIN/CREATININE, RANDOM AND [id number] 00:00:00 Test Item Value Reference Range Interpretation Comments CREATININE, URINE, CONC. (test 38.3 MG/DL code = 2072) ALBUMIN, URINE, RANDOM (test code 275.7 MG/DL = 84632) CALC ALBUMIN/CREAT, RND (test 7198 MG/G code = 84123) MICROALBUMIN/CREATININE, RANDOM AND [id number] 00:00:00 Test Item Value Reference Range Interpretation Comments CREATININE, URINE, CONC. (test 38.3 MG/DL code = 2072) ALBUMIN, URINE, RANDOM (test code 275.7 MG/DL = 40165) CALC ALBUMIN/CREAT, RND (test 7198 MG/G code = 41097) CBC W/AUTO [id number] 00:00:00 Test Item Value Reference Range Interpretation [...] code = 1015) 233 K/UL CBC W/AUTO [id number] 00:00:00 Test Item Value Reference Range Interpretation [...] code = 1015) 233 K/UL CBC W/AUTO [id number] 00:00:00 Test Item Value Reference Range Interpretation [...] COUNT (test code = 1015) 233 K/UL [id number] 00:00:00 Test Item Value Reference Range Interpretation Comments TSH, THIRD GENERATION (test code 2.370 UIU/ML = 2821) [id number] 00:00:00 Test Item Value Reference Range Interpretation Comments TSH, THIRD GENERATION (test code 2.370 UIU/ML = 2821) SCR MAMM BILATERAL DAVIS CAD [id number] 15:42:55 - SCR MAMM BILATERAL DAVIS CAD DIGITALBILATERAL DIGITAL SCREENING MAMMOGRAM 3D/2D WITH CAD: 8CLINICAL: Asymptomatic. Digital breast tomosynthesis was performed in addition to routine CC and MLO views. Current mammographic images were evaluated by either a [employer] or a [employer] [employer] (computer aided detection system). No prior exams were available for comparison. There are scattered fibroglandular tissues in both breasts. Symmetric mild bilateral trabecula and skin thickening noted.No suspicious mass, architectural distortion, malignant type calcification, or lymph node abnormality detected. IMPRESSION: NEGATIVEThere is no mammographic evidence of malignancy. Resume annual screening mammography in one year. Marcia Norris M.D. el/:04/27/2018 15:42:55 Fellmongery Worker: Jackelin Rocha MM, [facility] Mammographyletter sent: BIRADS 1-2 Normal Mammogram BI-RADS: 1 [id number] 00:00:00 Test Item Value Reference Range Interpretation Comments TSH, THIRD GENERATION (test code 1.510 UIU/ML = 2821) [id number] 00:00:00 Test Item Value Reference Range Interpretation Comments TSH, THIRD GENERATION (test code 1.510 UIU/ML = 2821) [id number] 00:00:00 Test Item Value Reference Range Interpretation Comments TSH, THIRD GENERATION (test code 1.510 UIU/ML = 2821) COMPREHENSIVE METABOLIC [id number] 00:00:00 Test Item Value Reference Range Interpretation Comments GLUCOSE (test code = 2217) 337 MG/DL BUN (test code = 2208) 49 MG/DL CREATININE (test code = 2214) 3.21 MG/DL eGFR AMER. (test code 17 ML/MIN/1.73 = 41012) eGFR NON- AMER. (test 15 ML/MIN/1.73 code = 25140) CALC BUN/CREAT (test code = 15 RATIO [...] code = 2219) 17 U/L COMPREHENSIVE METABOLIC [id number] 00:00:00 Test Item Value Reference Range Interpretation Comments GLUCOSE (test code = 2217) 337 MG/DL BUN (test code = 2208) 49 MG/DL CREATININE (test code = 2214) 3.21 MG/DL eGFR AMER. (test code 17 ML/MIN/1.73 = 05755) eGFR NON- AMER. (test 15 ML/MIN/1.73 code = 38965) CALC BUN/CREAT (test code = 15 RATIO [...] (test code = 2219) 17 U/L HEMOGLOBIN [id number] 00:00:00 Test Item Value Reference Range Interpretation Comments HEMOGLOBIN A1c (test code = 66176) 8.2 % HEMOGLOBIN [id number] 00:00:00 Test Item Value Reference Range Interpretation Comments HEMOGLOBIN A1c (test code = 25596) 8.2 % HEMOGLOBIN [id number] 00:00:00 Test Item Value Reference Range Interpretation Comments HEMOGLOBIN A1c (test code = 64760) 8.2 % [id number] 00:00:00 Test Item Value Reference Range Interpretation Comments TSH, THIRD GENERATION (test code 1.510 UIU/ML = 2821) [id number] 00:00:00 Test Item Value Reference Range Interpretation Comments TSH, THIRD GENERATION (test code 1.510 UIU/ML = 2821) [id number] 00:00:00 Test Item Value Reference Range Interpretation Comments TSH, THIRD GENERATION (test code 1.510 UIU/ML = 2821) COMPREHENSIVE METABOLIC [id number] 00:00:00 Test Item Value Reference Range Interpretation Comments GLUCOSE (test code = 2217) 337 MG/DL BUN (test code = 2208) 49 MG/DL CREATININE (test code = 2214) 3.21 MG/DL eGFR AMER. (test code 17 ML/MIN/1.73 = 17218) eGFR NON- AMER. (test 15 ML/MIN/1.73 code = 76763) CALC BUN/CREAT (test code = 15 RATIO [...] code = 2219) 17 U/L COMPREHENSIVE METABOLIC [id number] 00:00:00 Test Item Value Reference Range Interpretation Comments GLUCOSE (test code = 2217) 337 MG/DL BUN (test code = 2208) 49 MG/DL CREATININE (test code = 2214) 3.21 MG/DL eGFR AMER. (test code 17 ML/MIN/1.73 = 32035) eGFR NON- AMER. (test 15 ML/MIN/1.73 code = 77216) CALC BUN/CREAT (test code = 15 RATIO [...] 2239) CALC A/G RATIO (test code = 1.1 RATIO 2233) BILIRUBIN, TOTAL (test code = <0.2 MG/DL 2206) ALKALINE PHOSPHATASE (test 186 U/L code = 2204) AST (test code = 2218) 29 U/L ALT (test code = 2219) 17 U/L HEMOGLOBIN [id number] 00:00:00 Test Item Value Reference Range Interpretation Comments HEMOGLOBIN A1c (test code = 35472) 8.2 % HEMOGLOBIN [id number] 00:00:00 Test Item Value Reference Range Interpretation Comments HEMOGLOBIN A1c (test code = 09005) 8.2 % HEMOGLOBIN [id number] 00:00:00 Test Item Value Reference Range Interpretation Comments HEMOGLOBIN A1c (test code = 28597) 8.2 % [id number] 00:00:00 Test Item Value Reference Range Interpretation Comments TSH, THIRD GENERATION (test code 1.510 UIU/ML = 2821) [id number] 00:00:00 Test Item Value Reference Range Interpretation Comments TSH, THIRD GENERATION (test code 1.510 UIU/ML = 2821) [id number] 00:00:00 Test Item Value Reference Range Interpretation Comments TSH, THIRD GENERATION (test code 1.510 UIU/ML = 2821) COMPREHENSIVE METABOLIC [id number] 00:00:00 Test Item Value Reference Range Interpretation Comments GLUCOSE (test code = 2217) 337 MG/DL BUN (test code = 2208) 49 MG/DL CREATININE (test code = 2214) 3.21 MG/DL eGFR AMER. (test code 17 ML/MIN/1.73 = 52245) eGFR NON- AMER. (test 15 ML/MIN/1.73 code = 73084) CALC BUN/CREAT (test code = 15 RATIO [...] 2239) CALC A/G RATIO (test code = 1.1 RATIO 2233) BILIRUBIN, TOTAL (test code = <0.2 MG/DL 2206) ALKALINE PHOSPHATASE (test 186 U/L code = 2204) AST (test code = 2218) 29 U/L ALT (test code = 2219) 17 U/L HEMOGLOBIN [id number] 00:00:00 Test Item Value Reference Range Interpretation Comments HEMOGLOBIN A1c (test code = 84273) 8.2 % HEMOGLOBIN [id number] 00:00:00 Test Item Value Reference Range Interpretation Comments HEMOGLOBIN A1c (test code = 18994) 8.2 % [id number] 00:00:00 Test Item Value Reference Range Interpretation Comments TSH, THIRD GENERATION (test code 1.510 UIU/ML = 2821) [id number] 00:00:00 Test Item Value Reference Range Interpretation Comments TSH, THIRD GENERATION (test code 1.510 UIU/ML = 2821) COMPREHENSIVE METABOLIC [id number] 00:00:00 Test Item Value Reference Range Interpretation Comments GLUCOSE (test code = 2217) 337 MG/DL BUN (test code = 2208) 49 MG/DL CREATININE (test code = 2214) 3.21 MG/DL eGFR AMER. (test code 17 ML/MIN/1.73 = 60525) eGFR NON- AMER. (test 15 ML/MIN/1.73 code = 56312) CALC BUN/CREAT (test code = 15 RATIO [...] code = 2219) 17 U/L COMPREHENSIVE METABOLIC [id number] 00:00:00 Test Item Value Reference Range Interpretation Comments GLUCOSE (test code = 2217) 337 MG/DL BUN (test code = 2208) 49 MG/DL CREATININE (test code = 2214) 3.21 MG/DL eGFR AMER. (test code 17 ML/MIN/1.73 = 34624) eGFR NON- AMER. (test 15 ML/MIN/1.73 code = 44724) CALC BUN/CREAT (test code = 15 RATIO [...] (test code = 2219) 17 U/L HEMOGLOBIN [id number] 00:00:00 Test Item Value Reference Range Interpretation Comments HEMOGLOBIN A1c (test code = 44353) 8.2 % HEMOGLOBIN [id number] 00:00:00 Test Item Value Reference Range Interpretation Comments HEMOGLOBIN A1c (test code = 98691) 8.2 % HEMOGLOBIN [id number] 00:00:00 Test Item Value Reference Range Interpretation Comments HEMOGLOBIN A1c (test code = 24418) 8.2 % [id number] 00:00:00 Test Item Value Reference Range Interpretation Comments TSH, THIRD GENERATION (test code 1.510 UIU/ML = 2821) [id number] 00:00:00 Test Item Value Reference Range Interpretation Comments TSH, THIRD GENERATION (test code 1.510 UIU/ML = 2821) [id number] 00:00:00 Test Item Value Reference Range Interpretation Comments TSH, THIRD GENERATION (test code 1.510 UIU/ML = 2821) COMPREHENSIVE METABOLIC [id number] 00:00:00 Test Item Value Reference Range Interpretation Comments GLUCOSE (test code = 2217) 337 MG/DL BUN (test code = 2208) 49 MG/DL CREATININE (test code = 2214) 3.21 MG/DL eGFR AMER. (test code 17 ML/MIN/1.73 = 39792) eGFR NON- AMER. (test 15 ML/MIN/1.73 code = 31267) CALC BUN/CREAT (test code = 15 RATIO [...] code = 2219) 17 U/L COMPREHENSIVE METABOLIC [id number] 00:00:00 Test Item Value Reference Range Interpretation Comments GLUCOSE (test code = 2217) 337 MG/DL BUN (test code = 2208) 49 MG/DL CREATININE (test code = 2214) 3.21 MG/DL eGFR AMER. (test code 17 ML/MIN/1.73 = 84862) eGFR NON- AMER. (test 15 ML/MIN/1.73 code = 14749) CALC BUN/CREAT (test code = 15 RATIO [...] (test code = 2219) 17 U/L HEMOGLOBIN [id number] 00:00:00 Test Item Value Reference Range Interpretation Comments HEMOGLOBIN A1c (test code = 62458) 8.2 % HEMOGLOBIN [id number] 00:00:00 Test Item Value Reference Range Interpretation Comments HEMOGLOBIN A1c (test code = 47090) 8.2 % HEMOGLOBIN [id number] 00:00:00 Test Item Value Reference Range Interpretation Comments HEMOGLOBIN A1c (test code = 37769) 8.2 % PAP TEST, THINPREP, [id number] 00:00:00 Test Item Value Reference Range Interpretation Comments SOURCE: (test code = Cervical/Endocervical 8001) SLIDES: (test code = 1 8011) LMP: (test code = SEE NOTE 8021) SPECIMEN ADEQUACY: (NOTE) (test code = 26421) INTERPRETATION: (test NO EPITHELIAL code = 98597) ABNORMALITY SEE BELOW GUM DIPPER: MORENO (test code = 8101) YORDAN KAUR(ASCP)IAC LOCATION: (test code (NOTE) = 22003) CPT: (test code = (NOTE) 8140) PAP TEST, THINPREP, [id number] 00:00:00 Test Item Value Reference Range Interpretation Comments SOURCE: (test code = Cervical/Endocervical 8001) SLIDES: (test code = 1 8011) LMP: (test code = SEE NOTE 8021) SPECIMEN ADEQUACY: (NOTE) (test code = 41387) INTERPRETATION: (test NO EPITHELIAL code = 42007) ABNORMALITY SEE BELOW GUM DIPPER: MORENO (test code = 8101) YORDAN KAUR(ASCP)IAC LOCATION: (test code (NOTE) = 62691) CPT: (test code = (NOTE) 8140) HPV HIGH RISK WITH GENOTYPE, [id number] 00:00:00 Test Item Value Reference Range Interpretation Comments HPV HIGH RISK INTERP (test code = NEGATIVE 77212) HPV 16 (test code = 55797) NEGATIVE HPV 18 (test code = 72748) NEGATIVE HPV, HR, OTHER GENOTYPES (test code NEGATIVE = 19803) HPV HIGH RISK WITH GENOTYPE, [id number] 00:00:00 Test Item Value Reference Range Interpretation Comments HPV HIGH RISK INTERP (test code = NEGATIVE 94443) HPV 16 (test code = 60660) NEGATIVE HPV 18 (test code = 97808) NEGATIVE HPV, HR, OTHER GENOTYPES (test code NEGATIVE = 22286) PAP TEST, THINPREP, [id number] 00:00:00 Test Item Value Reference Range Interpretation Comments SOURCE: (test code = Cervical/Endocervical 8001) SLIDES: (test code = 1 8011) LMP: (test code = SEE NOTE 8021) SPECIMEN ADEQUACY: (NOTE) (test code = 03821) INTERPRETATION: (test NO EPITHELIAL code = 17326) ABNORMALITY SEE BELOW GUM DIPPER: MORENO (test code = 8101) YORDAN KAUR(ASCP)IAC LOCATION: (test code (NOTE) = 07908) CPT: (test code = (NOTE) 8140) PAP TEST, THINPREP, [id number] 00:00:00 Test Item Value Reference Range Interpretation Comments SOURCE: (test code = Cervical/Endocervical 8001) SLIDES: (test code = 1 8011) LMP: (test code = SEE NOTE 8021) SPECIMEN ADEQUACY: (NOTE) (test code = 02178) INTERPRETATION: (test NO EPITHELIAL code = 38866) ABNORMALITY SEE BELOW GUM DIPPER: MORENO (test code = 8101) YORDAN KAUR(ASCP)IAC LOCATION: (test code (NOTE) = 11575) CPT: (test code = (NOTE) 8140) HPV HIGH RISK WITH GENOTYPE, [id number] 00:00:00 Test Item Value Reference Range Interpretation Comments HPV HIGH RISK INTERP (test code = NEGATIVE 31816) HPV 16 (test code = 51441) NEGATIVE HPV 18 (test code = 17203) NEGATIVE HPV, HR, OTHER GENOTYPES (test code NEGATIVE = 40011) HPV HIGH RISK WITH GENOTYPE, [id number] 00:00:00 Test Item Value Reference Range Interpretation Comments HPV HIGH RISK INTERP (test code = NEGATIVE 88225) HPV 16 (test code = 47894) NEGATIVE HPV 18 (test code = 97738) NEGATIVE HPV, HR, OTHER GENOTYPES (test code NEGATIVE = 37851) PAP TEST, THINPREP, [id number] 00:00:00 Test Item Value Reference Range Interpretation Comments SOURCE: (test code = Cervical/Endocervical 8001) SLIDES: (test code = 1 8011) LMP: (test code = SEE NOTE 8021) SPECIMEN ADEQUACY: (NOTE) (test code = 88425) INTERPRETATION: (test NO EPITHELIAL code = 20616) ABNORMALITY SEE BELOW GUM DIPPER: MORENO (test code = 8101) YORDAN KAUR(ASCP)IAC LOCATION: (test code (NOTE) = 69633) CPT: (test code = (NOTE) 8140) HPV HIGH RISK WITH GENOTYPE, [id number] 00:00:00 Test Item Value Reference Range Interpretation Comments HPV HIGH RISK INTERP (test code = NEGATIVE 27077) HPV 16 (test code = 52547) NEGATIVE HPV 18 (test code = 66375) NEGATIVE HPV, HR, OTHER GENOTYPES (test code NEGATIVE = 65967) PAP TEST, THINPREP, [id number] 00:00:00 Test Item Value Reference Range Interpretation Comments SOURCE: (test code = Cervical/Endocervical 8001) SLIDES: (test code = 1 8011) LMP: (test code = SEE NOTE 8021) SPECIMEN ADEQUACY: (NOTE) (test code = 06896) INTERPRETATION: (test NO EPITHELIAL code = 33021) ABNORMALITY SEE BELOW GUM DIPPER: MORENO (test code = 8101) YORDAN KAUR(ASCP)IAC LOCATION: (test code (NOTE) = 88057) CPT: (test code = (NOTE) 8140) PAP TEST, THINPREP, [id number] 00:00:00 Test Item Value Reference Range Interpretation Comments SOURCE: (test code = Cervical/Endocervical 8001) SLIDES: (test code = 1 8011) LMP: (test code = SEE NOTE 8021) SPECIMEN ADEQUACY: (NOTE) (test code = 22166) INTERPRETATION: (test NO EPITHELIAL code = 70616) ABNORMALITY SEE BELOW GUM DIPPER: MORENO (test code = 8101) YORDAN KAUR(ASCP)IAC LOCATION: (test code (NOTE) = 96853) CPT: (test code = (NOTE) 8140) HPV HIGH RISK WITH GENOTYPE, [id number] 00:00:00 Test Item Value Reference Range Interpretation Comments HPV HIGH RISK INTERP (test code = NEGATIVE 59268) HPV 16 (test code = 25761) NEGATIVE HPV 18 (test code = 16612) NEGATIVE HPV, HR, OTHER GENOTYPES (test code NEGATIVE = 76058) HPV HIGH RISK WITH GENOTYPE, [id number] 00:00:00 Test Item Value Reference Range Interpretation Comments HPV HIGH RISK INTERP (test code = NEGATIVE 88487) HPV 16 (test code = 08415) NEGATIVE HPV 18 (test code = 06647) NEGATIVE HPV, HR, OTHER GENOTYPES (test code NEGATIVE = 24847) PAP TEST, THINPREP, [id number] 00:00:00 Test Item Value Reference Range Interpretation Comments SOURCE: (test code = Cervical/Endocervical 8001) SLIDES: (test code = 1 8011) LMP: (test code = SEE NOTE 8021) SPECIMEN ADEQUACY: (NOTE) (test code = 85797) INTERPRETATION: (test NO EPITHELIAL code = 07820) ABNORMALITY SEE BELOW GUM DIPPER: MORENO (test code = 8101) YORDAN KAUR(ASCP)IAC LOCATION: (test code (NOTE) = 81102) CPT: (test code = (NOTE) 8140) PAP TEST, THINPREP, [id number] 00:00:00 Test Item Value Reference Range Interpretation Comments SOURCE: (test code = Cervical/Endocervical 8001) SLIDES: (test code = 1 8011) LMP: (test code = SEE NOTE 8021) SPECIMEN ADEQUACY: (NOTE) (test code = 06453) INTERPRETATION: (test NO EPITHELIAL code = 86665) ABNORMALITY SEE BELOW GUM DIPPER: MORENO (test code = 8101) YORDAN KAUR(ASCP)IAC LOCATION: (test code (NOTE) = 63159) CPT: (test code = (NOTE) 8140) HPV HIGH RISK WITH GENOTYPE, [id number] 00:00:00 Test Item Value Reference Range Interpretation Comments HPV HIGH RISK INTERP (test code = NEGATIVE 74181) HPV 16 (test code = 21455) NEGATIVE HPV 18 (test code = 64848) NEGATIVE HPV, HR, OTHER GENOTYPES (test code NEGATIVE = 45124) HPV HIGH RISK WITH GENOTYPE, [id number] 00:00:00 Test Item Value Reference Range Interpretation Comments HPV HIGH RISK INTERP (test code = NEGATIVE 63648) HPV 16 (test code = 57932) NEGATIVE HPV 18 (test code = 60026) NEGATIVE HPV, HR, OTHER GENOTYPES (test code NEGATIVE = 58999) PROTEIN/CREATININE RATIO, [id number] 00:00:00 Test Item Value Reference Range Interpretation Comments PROTEIN, URINE, CONC. (test 682 MG/DL code = 2104) CREATININE, URINE, CONC. (test 112.6 MG/DL code = 2072) CALC PROTEIN/CREATININE (test 6057 MG/GCREAT code = 2158) PROTEIN/CREATININE RATIO, [id number] 00:00:00 Test Item Value Reference Range Interpretation Comments PROTEIN, URINE, CONC. (test 682 MG/DL code = 2104) CREATININE, URINE, CONC. (test 112.6 MG/DL code = 2072) CALC PROTEIN/CREATININE (test 6057 MG/GCREAT code = 2158) VITAMIN D, 25 [id number] 00:00:00 Test Item Value Reference Range Interpretation Comments VITAMIN D, 25 OH (test code = 4958) 19 NG/ML VITAMIN D, 25 [id number] 00:00:00 Test Item Value Reference Range Interpretation Comments VITAMIN D, 25 OH (test code = 4958) 19 NG/ML BASIC METABOLIC [id number] 00:00:00 Test Item Value Reference Range Interpretation Comments GLUCOSE (test code = 2217) 279 MG/DL BUN (test code = 2208) 43 MG/DL CREATININE (test code = 2214) 2.63 MG/DL eGFR AMER. (test code 22 ML/MIN/1.73 = 83510) eGFR NON- AMER. (test 19 ML/MIN/1.73 code = 20484) SODIUM (test code = 2231) 140 MEQ/L POTASSIUM (test code = 2228) 5.1 MEQ/L CHLORIDE (test code = 2215) 101 MEQ/L CARBON DIOXIDE (test code = 26 MEQ/L 2206) CALCIUM (test code = 2209) 8.9 MG/DL BASIC METABOLIC [id number] 00:00:00 Test Item Value Reference Range Interpretation Comments GLUCOSE (test code = 2217) 279 MG/DL BUN (test code = 2208) 43 MG/DL CREATININE (test code = 2214) 2.63 MG/DL eGFR AMER. (test code 22 ML/MIN/1.73 = 06013) eGFR NON- AMER. (test 19 ML/MIN/1.73 code = 95600) SODIUM (test code = 2231) 140 MEQ/L POTASSIUM (test code = 2228) 5.1 MEQ/L CHLORIDE (test code = 2215) 101 MEQ/L CARBON DIOXIDE (test code = 26 MEQ/L 2206) CALCIUM (test code = 2209) 8.9 MG/DL INTACT [id number] 00:00:00 Test Item Value Reference Range Interpretation Comments INTACT PTH (test code = 5005) 126 PG/ML INTACT [id number] 00:00:00 Test Item Value Reference Range Interpretation Comments INTACT PTH (test code = 5005) 126 PG/ML INTACT [id number] 00:00:00 Test Item Value Reference Range Interpretation Comments INTACT PTH (test code = 5005) 126 PG/ML PROTEIN/CREATININE RATIO, [id number] 00:00:00 Test Item Value Reference Range Interpretation Comments PROTEIN, URINE, CONC. (test 682 MG/DL code = 2104) CREATININE, URINE, CONC. (test 112.6 MG/DL code = 2072) CALC PROTEIN/CREATININE (test 6057 MG/GCREAT code = 2158) PROTEIN/CREATININE RATIO, [id number] 00:00:00 Test Item Value Reference Range Interpretation Comments PROTEIN, URINE, CONC. (test 682 MG/DL code = 2104) CREATININE, URINE, CONC. (test 112.6 MG/DL code = 2072) CALC PROTEIN/CREATININE (test 6057 MG/GCREAT code = 2158) VITAMIN D, 25 [id number] 00:00:00 Test Item Value Reference Range Interpretation Comments VITAMIN D, 25 OH (test code = 4958) 19 NG/ML VITAMIN D, 25 [id number] 00:00:00 Test Item Value Reference Range Interpretation Comments VITAMIN D, 25 OH (test code = 4958) 19 NG/ML BASIC METABOLIC [id number] 00:00:00 Test Item Value Reference Range Interpretation Comments GLUCOSE (test code = 2217) 279 MG/DL BUN (test code = 2208) 43 MG/DL CREATININE (test code = 2214) 2.63 MG/DL eGFR AMER. (test code 22 ML/MIN/1.73 = 71831) eGFR NON- AMER. (test 19 ML/MIN/1.73 code = 13445) SODIUM (test code = 2231) 140 MEQ/L POTASSIUM (test code = 2228) 5.1 MEQ/L CHLORIDE (test code = 2215) 101 MEQ/L CARBON DIOXIDE (test code = 26 MEQ/L 2206) CALCIUM (test code = 2209) 8.9 MG/DL BASIC METABOLIC [id number] 00:00:00 Test Item Value Reference Range Interpretation Comments GLUCOSE (test code = 2217) 279 MG/DL BUN (test code = 2208) 43 MG/DL CREATININE (test code = 2214) 2.63 MG/DL eGFR AMER. (test code 22 ML/MIN/1.73 = 85385) eGFR NON- AMER. (test 19 ML/MIN/1.73 code = 22331) SODIUM (test code = 2231) 140 MEQ/L POTASSIUM (test code = 2228) 5.1 MEQ/L CHLORIDE (test code = 2215) 101 MEQ/L CARBON DIOXIDE (test code = 26 MEQ/L 2206) CALCIUM (test code = 2209) 8.9 MG/DL INTACT [id number] 00:00:00 Test Item Value Reference Range Interpretation Comments INTACT PTH (test code = 5005) 126 PG/ML INTACT [id number] 00:00:00 Test Item Value Reference Range Interpretation Comments INTACT PTH (test code = 5005) 126 PG/ML INTACT [id number] 00:00:00 Test Item Value Reference Range Interpretation Comments INTACT PTH (test code = 5005) 126 PG/ML PROTEIN/CREATININE RATIO, [id number] 00:00:00 Test Item Value Reference Range Interpretation Comments PROTEIN, URINE, CONC. (test 682 MG/DL code = 2104) CREATININE, URINE, CONC. (test 112.6 MG/DL code = 2072) CALC PROTEIN/CREATININE (test 6057 MG/GCREAT code = 2158) PROTEIN/CREATININE RATIO, [id number] 00:00:00 Test Item Value Reference Range Interpretation Comments PROTEIN, URINE, CONC. (test 682 MG/DL code = 2104) CREATININE, URINE, CONC. (test 112.6 MG/DL code = 2072) CALC PROTEIN/CREATININE (test 6057 MG/GCREAT code = 2158) VITAMIN D, 25 [id number] 00:00:00 Test Item Value Reference Range Interpretation Comments VITAMIN D, 25 OH (test code = 4958) 19 NG/ML VITAMIN D, 25 [id number] 00:00:00 Test Item Value Reference Range Interpretation Comments VITAMIN D, 25 OH (test code = 4958) 19 NG/ML BASIC METABOLIC [id number] 00:00:00 Test Item Value Reference Range Interpretation Comments GLUCOSE (test code = 2217) 279 MG/DL BUN (test code = 2208) 43 MG/DL CREATININE (test code = 2214) 2.63 MG/DL eGFR AMER. (test code 22 ML/MIN/1.73 = 39175) eGFR NON- AMER. (test 19 ML/MIN/1.73 code = 72136) SODIUM (test code = 2231) 140 MEQ/L POTASSIUM (test code = 2228) 5.1 MEQ/L CHLORIDE (test code = 2215) 101 MEQ/L CARBON DIOXIDE (test code = 26 MEQ/L 2206) CALCIUM (test code = 2209) 8.9 MG/DL INTACT [id number] 00:00:00 Test Item Value Reference Range Interpretation Comments INTACT PTH (test code = 5005) 126 PG/ML INTACT [id number] 00:00:00 Test Item Value Reference Range Interpretation Comments INTACT PTH (test code = 5005) 126 PG/ML PROTEIN/CREATININE RATIO, [id number] 00:00:00 Test Item Value Reference Range Interpretation Comments PROTEIN, URINE, CONC. (test 682 MG/DL code = 2104) CREATININE, URINE, CONC. (test 112.6 MG/DL code = 2072) CALC PROTEIN/CREATININE (test 6057 MG/GCREAT code = 2158) VITAMIN D, 25 [id number] 00:00:00 Test Item Value Reference Range Interpretation Comments VITAMIN D, 25 OH (test code = 4958) 19 NG/ML BASIC METABOLIC [id number] 00:00:00 Test Item Value Reference Range Interpretation Comments GLUCOSE (test code = 2217) 279 MG/DL BUN (test code = 2208) 43 MG/DL CREATININE (test code = 2214) 2.63 MG/DL eGFR AMER. (test code 22 ML/MIN/1.73 = 08992) eGFR NON- AMER. (test 19 ML/MIN/1.73 code = 39176) SODIUM (test code = 2231) 140 MEQ/L POTASSIUM (test code = 2228) 5.1 MEQ/L CHLORIDE (test code = 2215) 101 MEQ/L CARBON DIOXIDE (test code = 26 MEQ/L 2206) CALCIUM (test code = 2209) 8.9 MG/DL BASIC METABOLIC [id number] 00:00:00 Test Item Value Reference Range Interpretation Comments GLUCOSE (test code = 2217) 279 MG/DL BUN (test code = 2208) 43 MG/DL CREATININE (test code = 2214) 2.63 MG/DL eGFR AMER. (test code 22 ML/MIN/1.73 = 66482) eGFR NON- AMER. (test 19 ML/MIN/1.73 code = 01911) SODIUM (test code = 2231) 140 MEQ/L POTASSIUM (test code = 2228) 5.1 MEQ/L CHLORIDE (test code = 2215) 101 MEQ/L CARBON DIOXIDE (test code = 26 MEQ/L 2206) CALCIUM (test code = 2209) 8.9 MG/DL INTACT [id number] 00:00:00 Test Item Value Reference Range Interpretation Comments INTACT PTH (test code = 5005) 126 PG/ML INTACT [id number] 00:00:00 Test Item Value Reference Range Interpretation Comments INTACT PTH (test code = 5005) 126 PG/ML INTACT [id number] 00:00:00 Test Item Value Reference Range Interpretation Comments INTACT PTH (test code = 5005) 126 PG/ML PROTEIN/CREATININE RATIO, [id number] 00:00:00 Test Item Value Reference Range Interpretation Comments PROTEIN, URINE, CONC. (test 682 MG/DL code = 2104) CREATININE, URINE, CONC. (test 112.6 MG/DL code = 2072) CALC PROTEIN/CREATININE (test 6057 MG/GCREAT code = 2158) PROTEIN/CREATININE RATIO, [id number] 00:00:00 Test Item Value Reference Range Interpretation Comments PROTEIN, URINE, CONC. (test 682 MG/DL code = 2104) CREATININE, URINE, CONC. (test 112.6 MG/DL code = 2072) CALC PROTEIN/CREATININE (test 6057 MG/GCREAT code = 2158) VITAMIN D, 25 [id number] 00:00:00 Test Item Value Reference Range Interpretation Comments VITAMIN D, 25 OH (test code = 4958) 19 NG/ML VITAMIN D, 25 [id number] 00:00:00 Test Item Value Reference Range Interpretation Comments VITAMIN D, 25 OH (test code = 4958) 19 NG/ML BASIC METABOLIC [id number] 00:00:00 Test Item Value Reference Range Interpretation Comments GLUCOSE (test code = 2217) 279 MG/DL BUN (test code = 2208) 43 MG/DL CREATININE (test code = 2214) 2.63 MG/DL eGFR AMER. (test code 22 ML/MIN/1.73 = 86768) eGFR NON- AMER. (test 19 ML/MIN/1.73 code = 58100) SODIUM (test code = 2231) 140 MEQ/L POTASSIUM (test code = 2228) 5.1 MEQ/L CHLORIDE (test code = 2215) 101 MEQ/L CARBON DIOXIDE (test code = 26 MEQ/L 2206) CALCIUM (test code = 2209) 8.9 MG/DL BASIC METABOLIC [id number] 00:00:00 Test Item Value Reference Range Interpretation Comments GLUCOSE (test code = 2217) 279 MG/DL BUN (test code = 2208) 43 MG/DL CREATININE (test code = 2214) 2.63 MG/DL eGFR AMER. (test code 22 ML/MIN/1.73 = 28226) eGFR NON- AMER. (test 19 ML/MIN/1.73 code = 39525) SODIUM (test code = 2231) 140 MEQ/L POTASSIUM (test code = 2228) 5.1 MEQ/L CHLORIDE (test code = 2215) 101 MEQ/L CARBON DIOXIDE (test code = 26 MEQ/L 2206) CALCIUM (test code = 2209) 8.9 MG/DL INTACT [id number] 00:00:00 Test Item Value Reference Range Interpretation Comments INTACT PTH (test code = 5005) 126 PG/ML INTACT [id number] 00:00:00 Test Item Value Reference Range Interpretation Comments INTACT PTH (test code = 5005) 126 PG/ML INTACT [id number] 00:00:00 Test Item Value Reference Range Interpretation Comments INTACT PTH (test code = 5005) 126 PG/ML LIPID [id number] 00:00:00 Test Item Value Reference Range Interpretation Comments CHOLESTEROL (test code = 2210) 166 MG/DL TRIGLYCERIDES (test code = 2232) 77 MG/DL HDL CHOLESTEROL (test code = 2220) 71 MG/DL CALC LDL CHOL (test code = 2237) 80 MG/DL RISK RATIO LDL/HDL (test code = 1.12 RATIO 2238) COMPREHENSIVE METABOLIC [id number] 00:00:00 Test Item Value Reference Range Interpretation Comments GLUCOSE (test code = 2217) 241 MG/DL BUN (test code = 2208) 42 MG/DL CREATININE (test code = 2214) 2.62 MG/DL eGFR AMER. (test code 22 ML/MIN/1.73 = 77899) eGFR NON- AMER. (test 19 ML/MIN/1.73 code = 79869) CALC BUN/CREAT (test code = 16 RATIO [...] code = 2219) 10 U/L COMPREHENSIVE METABOLIC [id number] 00:00:00 Test Item Value Reference Range Interpretation Comments GLUCOSE (test code = 2217) 241 MG/DL BUN (test code = 2208) 42 MG/DL CREATININE (test code = 2214) 2.62 MG/DL eGFR AMER. (test code 22 ML/MIN/1.73 = 94815) eGFR NON- AMER. (test 19 ML/MIN/1.73 code = 58802) CALC BUN/CREAT (test code = 16 RATIO [...] ALT (test code = 2219) 10 U/L [id number] 00:00:00 Test Item Value Reference Range Interpretation Comments TSH, THIRD GENERATION (test code 1.300 UIU/ML = 2821) [id number] 00:00:00 Test Item Value Reference Range Interpretation Comments TSH, THIRD GENERATION (test code 1.300 UIU/ML = 2821) [id number] 00:00:00 Test Item Value Reference Range Interpretation Comments TSH, THIRD GENERATION (test code 1.300 UIU/ML = 2821) MICROALBUMIN/CREATININE, RANDOM AND [id number] 00:00:00 Test Item Value Reference Range Interpretation Comments CREATININE, URINE, CONC. (test 33.9 MG/DL code = 2072) ALBUMIN, URINE, RANDOM (test code 196.7 MG/DL = 16737) CALC ALBUMIN/CREAT, RND (test 5802 MG/G code = 30041) MICROALBUMIN/CREATININE, RANDOM AND [id number] 00:00:00 Test Item Value Reference Range Interpretation Comments CREATININE, URINE, CONC. (test 33.9 MG/DL code = 2072) ALBUMIN, URINE, RANDOM (test code 196.7 MG/DL = 10773) CALC ALBUMIN/CREAT, RND (test 5802 MG/G code = 90979) HEMOGLOBIN [id number] 00:00:00 Test Item Value Reference Range Interpretation Comments HEMOGLOBIN A1c (test code = 06743) 9.5 % HEMOGLOBIN [id number] 00:00:00 Test Item Value Reference Range Interpretation Comments HEMOGLOBIN A1c (test code = 48442) 9.5 % HEMOGLOBIN [id number] 00:00:00 Test Item Value Reference Range Interpretation Comments HEMOGLOBIN A1c (test code = 05068) 9.5 % LIPID [id number] 00:00:00 Test Item Value Reference Range Interpretation Comments CHOLESTEROL (test code = 2210) 166 MG/DL TRIGLYCERIDES (test code = 2232) 77 MG/DL HDL CHOLESTEROL (test code = 2220) 71 MG/DL CALC LDL CHOL (test code = 2237) 80 MG/DL RISK RATIO LDL/HDL (test code = 1.12 RATIO 2238) LIPID [id number] 00:00:00 Test Item Value Reference Range Interpretation Comments CHOLESTEROL (test code = 2210) 166 MG/DL TRIGLYCERIDES (test code = 2232) 77 MG/DL HDL CHOLESTEROL (test code = 2220) 71 MG/DL CALC LDL CHOL (test code = 2237) 80 MG/DL RISK RATIO LDL/HDL (test code = 1.12 RATIO 2238) COMPREHENSIVE METABOLIC [id number] 00:00:00 Test Item Value Reference Range Interpretation Comments GLUCOSE (test code = 2217) 241 MG/DL BUN (test code = 2208) 42 MG/DL CREATININE (test code = 2214) 2.62 MG/DL eGFR AMER. (test code 22 ML/MIN/1.73 = 32939) eGFR NON- AMER. (test 19 ML/MIN/1.73 code = 33165) CALC BUN/CREAT (test code = 16 RATIO [...] code = 2219) 10 U/L COMPREHENSIVE METABOLIC [id number] 00:00:00 Test Item Value Reference Range Interpretation Comments GLUCOSE (test code = 2217) 241 MG/DL BUN (test code = 2208) 42 MG/DL CREATININE (test code = 2214) 2.62 MG/DL eGFR AMER. (test code 22 ML/MIN/1.73 = 04722) eGFR NON- AMER. (test 19 ML/MIN/1.73 code = 98790) CALC BUN/CREAT (test code = 16 RATIO 2235) SODIUM (test code = 2231) 137 MEQ/L POTASSIUM (test code = 2228) 4.7 MEQ/L CHLORIDE (test code = 2215) 98 MEQ/L CARBON DIOXIDE (test code = 25 MEQ/L 2206) CALCIUM (test code = 2209) 8.8 MG/DL [...] ALT (test code = 2219) 10 U/L [id number] 00:00:00 Test Item Value Reference Range Interpretation Comments TSH, THIRD GENERATION (test code 1.300 UIU/ML = 2821) [id number] 00:00:00 Test Item Value Reference Range Interpretation Comments TSH, THIRD GENERATION (test code 1.300 UIU/ML = 2821) [id number] 00:00:00 Test Item Value Reference Range Interpretation Comments TSH, THIRD GENERATION (test code 1.300 UIU/ML = 2821) MICROALBUMIN/CREATININE, RANDOM AND [id number] 00:00:00 Test Item Value Reference Range Interpretation Comments CREATININE, URINE, CONC. (test 33.9 MG/DL code = 2072) ALBUMIN, URINE, RANDOM (test code 196.7 MG/DL = 49594) CALC ALBUMIN/CREAT, RND (test 5802 MG/G code = 32231) MICROALBUMIN/CREATININE, RANDOM AND [id number] 00:00:00 Test Item Value Reference Range Interpretation Comments CREATININE, URINE, CONC. (test 33.9 MG/DL code = 2072) ALBUMIN, URINE, RANDOM (test code 196.7 MG/DL = 77903) CALC ALBUMIN/CREAT, RND (test 5802 MG/G code = 43853) HEMOGLOBIN [id number] 00:00:00 Test Item Value Reference Range Interpretation Comments HEMOGLOBIN A1c (test code = 44625) 9.5 % HEMOGLOBIN [id number] 00:00:00 Test Item Value Reference Range Interpretation Comments HEMOGLOBIN A1c (test code = 63014) 9.5 % HEMOGLOBIN [id number] 00:00:00 Test Item Value Reference Range Interpretation Comments HEMOGLOBIN A1c (test code = 01545) 9.5 % LIPID [id number] 00:00:00 Test Item Value Reference Range Interpretation Comments CHOLESTEROL (test code = 2210) 166 MG/DL TRIGLYCERIDES (test code = 2232) 77 MG/DL HDL CHOLESTEROL (test code = 2220) 71 MG/DL CALC LDL CHOL (test code = 2237) 80 MG/DL RISK RATIO LDL/HDL (test code = 1.12 RATIO 2238) LIPID [id number] 00:00:00 Test Item Value Reference Range Interpretation Comments CHOLESTEROL (test code = 2210) 166 MG/DL TRIGLYCERIDES (test code = 2232) 77 MG/DL HDL CHOLESTEROL (test code = 2220) 71 MG/DL CALC LDL CHOL (test code = 2237) 80 MG/DL RISK RATIO LDL/HDL (test code = 1.12 RATIO 2238) COMPREHENSIVE METABOLIC [id number] 00:00:00 Test Item Value Reference Range Interpretation Comments GLUCOSE (test code = 2217) 241 MG/DL BUN (test code = 2208) 42 MG/DL CREATININE (test code = 2214) 2.62 MG/DL eGFR AMER. (test code 22 ML/MIN/1.73 = 48927) eGFR NON- AMER. (test 19 ML/MIN/1.73 code = 59017) CALC BUN/CREAT (test code = 16 RATIO [...] code = 2219) 10 U/L COMPREHENSIVE METABOLIC [id number] 00:00:00 Test Item Value Reference Range Interpretation Comments GLUCOSE (test code = 2217) 241 MG/DL BUN (test code = 2208) 42 MG/DL CREATININE (test code = 2214) 2.62 MG/DL eGFR AMER. (test code 22 ML/MIN/1.73 = 03478) eGFR NON- AMER. (test 19 ML/MIN/1.73 code = 37939) CALC BUN/CREAT (test code = 16 RATIO [...] 2239) CALC A/G RATIO (test code = 1.0 RATIO 2233) BILIRUBIN, TOTAL (test code = 0.3 MG/DL 2206) ALKALINE PHOSPHATASE (test 165 U/L code = 220) AST (test code = 2218) 20 U/L ALT (test code = 2219) 10 U/L [id number] 00:00:00 Test Item Value Reference Range Interpretation Comments TSH, THIRD GENERATION (test code 1.300 UIU/ML = 2821) [id number] 00:00:00 Test Item Value Reference Range Interpretation Comments TSH, THIRD GENERATION (test code 1.300 UIU/ML = 2821) [id number] 00:00:00 Test Item Value Reference Range Interpretation Comments TSH, THIRD GENERATION (test code 1.300 UIU/ML = 2821) MICROALBUMIN/CREATININE, RANDOM AND [id number] 00:00:00 Test Item Value Reference Range Interpretation Comments CREATININE, URINE, CONC. (test 33.9 MG/DL code = 2072) ALBUMIN, URINE, RANDOM (test code 196.7 MG/DL = 83686) CALC ALBUMIN/CREAT, RND (test 5802 MG/G code = 64518) MICROALBUMIN/CREATININE, RANDOM AND [id number] 00:00:00 Test Item Value Reference Range Interpretation Comments CREATININE, URINE, CONC. (test 33.9 MG/DL code = 2072) ALBUMIN, URINE, RANDOM (test code 196.7 MG/DL = 65383) CALC ALBUMIN/CREAT, RND (test 5802 MG/G code = 94211) HEMOGLOBIN [id number] 00:00:00 Test Item Value Reference Range Interpretation Comments HEMOGLOBIN A1c (test code = 20294) 9.5 % HEMOGLOBIN [id number] 00:00:00 Test Item Value Reference Range Interpretation Comments HEMOGLOBIN A1c (test code = 33017) 9.5 % LIPID [id number] 00:00:00 Test Item Value Reference Range Interpretation Comments CHOLESTEROL (test code = 2210) 166 MG/DL TRIGLYCERIDES (test code = 2232) 77 MG/DL HDL CHOLESTEROL (test code = 2220) 71 MG/DL CALC LDL CHOL (test code = 2237) 80 MG/DL RISK RATIO LDL/HDL (test code = 1.12 RATIO 2238) COMPREHENSIVE METABOLIC [id number] 00:00:00 Test Item Value Reference Range Interpretation Comments GLUCOSE (test code = 2217) 241 MG/DL BUN (test code = 2208) 42 MG/DL CREATININE (test code = 2214) 2.62 MG/DL eGFR AMER. (test code 22 ML/MIN/1.73 = 38179) eGFR NON- AMER. (test 19 ML/MIN/1.73 code = 69637) CALC BUN/CREAT (test code = 16 RATIO [...] ALT (test code = 2219) 10 U/L [id number] 00:00:00 Test Item Value Reference Range Interpretation Comments TSH, THIRD GENERATION (test code 1.300 UIU/ML = 2821) [id number] 00:00:00 Test Item Value Reference Range Interpretation Comments TSH, THIRD GENERATION (test code 1.300 UIU/ML = 2821) MICROALBUMIN/CREATININE, RANDOM AND [id number] 00:00:00 Test Item Value Reference Range Interpretation Comments CREATININE, URINE, CONC. (test 33.9 MG/DL code = 2072) ALBUMIN, URINE, RANDOM (test code 196.7 MG/DL = 39067) CALC ALBUMIN/CREAT, RND (test 5802 MG/G code = 58946) HEMOGLOBIN [id number] 00:00:00 Test Item Value Reference Range Interpretation Comments HEMOGLOBIN A1c (test code = 10623) 9.5 % HEMOGLOBIN [id number] 00:00:00 Test Item Value Reference Range Interpretation Comments HEMOGLOBIN A1c (test code = 15944) 9.5 % HEMOGLOBIN [id number] 00:00:00 Test Item Value Reference Range Interpretation Comments HEMOGLOBIN A1c (test code = 89200) 9.5 % LIPID [id number] 00:00:00 Test Item Value Reference Range Interpretation Comments CHOLESTEROL (test code = 2210) 166 MG/DL TRIGLYCERIDES (test code = 2232) 77 MG/DL HDL CHOLESTEROL (test code = 2220) 71 MG/DL CALC LDL CHOL (test code = 2237) 80 MG/DL RISK RATIO LDL/HDL (test code = 1.12 RATIO 2238) LIPID [id number] 00:00:00 Test Item Value Reference Range Interpretation Comments CHOLESTEROL (test code = 2210) 166 MG/DL TRIGLYCERIDES (test code = 2232) 77 MG/DL HDL CHOLESTEROL (test code = 2220) 71 MG/DL CALC LDL CHOL (test code = 2237) 80 MG/DL RISK RATIO LDL/HDL (test code = 1.12 RATIO 2238) COMPREHENSIVE METABOLIC [id number] 00:00:00 Test Item Value Reference Range Interpretation Comments GLUCOSE (test code = 2217) 241 MG/DL BUN (test code = 2208) 42 MG/DL CREATININE (test code = 2214) 2.62 MG/DL eGFR AMER. (test code 22 ML/MIN/1.73 = 51632) eGFR NON- AMER. (test 19 ML/MIN/1.73 code = 46321) CALC BUN/CREAT (test code = 16 RATIO 2235) SODIUM (test code = 2231) 137 MEQ/L POTASSIUM (test code = 2228) 4.7 MEQ/L CHLORIDE (test code = 2215) 98 MEQ/L CARBON DIOXIDE (test code = 25 MEQ/L 220) CALCIUM (test code = 2209) 8.8 MG/DL PROTEIN, TOTAL (test code = 6.7 G/DL 222) ALBUMIN (test code = 2201) 3.4 G/DL CALC GLOBULIN (test code = 3.3 G/DL 2240) CALC A/G RATIO (test code = 1.0 RATIO 2234) BILIRUBIN, TOTAL (test code = 0.3 MG/DL 2206) ALKALINE PHOSPHATASE (test 165 U/L code = 2204) AST (test code = 2218) 20 U/L ALT (test code = 2219) 10 U/L COMPREHENSIVE METABOLIC [id number] 00:00:00 Test Item Value Reference Range Interpretation Comments GLUCOSE (test code = 2217) 241 MG/DL BUN (test code = 2208) 42 MG/DL CREATININE (test code = 2214) 2.62 MG/DL eGFR AMER. (test code 22 ML/MIN/1.73 = 49618) eGFR NON- AMER. (test 19 ML/MIN/1.73 code = 26096) CALC BUN/CREAT (test code = 16 RATIO [...] ALT (test code = 2219) 10 U/L [id number] 00:00:00 Test Item Value Reference Range Interpretation Comments TSH, THIRD GENERATION (test code 1.300 UIU/ML = 2821) [id number] 00:00:00 Test Item Value Reference Range Interpretation Comments TSH, THIRD GENERATION (test code 1.300 UIU/ML = 2821) [id number] 00:00:00 Test Item Value Reference Range Interpretation Comments TSH, THIRD GENERATION (test code 1.300 UIU/ML = 2821) MICROALBUMIN/CREATININE, RANDOM AND [id number] 00:00:00 Test Item Value Reference Range Interpretation Comments CREATININE, URINE, CONC. (test 33.9 MG/DL code = 2072) ALBUMIN, URINE, RANDOM (test code 196.7 MG/DL = 99365) CALC ALBUMIN/CREAT, RND (test 5802 MG/G code = 23259) MICROALBUMIN/CREATININE, RANDOM AND [id number] 00:00:00 Test Item Value Reference Range Interpretation Comments CREATININE, URINE, CONC. (test 33.9 MG/DL code = 2072) ALBUMIN, URINE, RANDOM (test code 196.7 MG/DL = 64042) CALC ALBUMIN/CREAT, RND (test 5802 MG/G code = 41863) HEMOGLOBIN [id number] 00:00:00 Test Item Value Reference Range Interpretation Comments HEMOGLOBIN A1c (test code = 98189) 9.5 % HEMOGLOBIN [id number] 00:00:00 Test Item Value Reference Range Interpretation Comments HEMOGLOBIN A1c (test code = 19122) 9.5 % HEMOGLOBIN [id number] 00:00:00 Test Item Value Reference Range Interpretation Comments HEMOGLOBIN A1c (test code = 53083) 9.5 % LIPID [id number] 00:00:00 Test Item Value Reference Range Interpretation Comments CHOLESTEROL (test code = 2210) 166 MG/DL TRIGLYCERIDES (test code = 2232) 77 MG/DL HDL CHOLESTEROL (test code = 2220) 71 MG/DL CALC LDL CHOL (test code = 2237) 80 MG/DL RISK RATIO LDL/HDL (test code = 1.12 RATIO 2238)
--- NOTE | 2022-06-27 17:04 | RAD REPORT ---
EXAM DESCRIPTION: RAD - Hand Left 3 View - 06/27/2022 4:37 pm CLINICAL HISTORY: SMASH INJURY, patient provided history of fourth digit infection COMPARISON: None. FINDINGS: No fracture, dislocation or periosteal reaction noted. Mild IP joint space narrowing seen without spurring or erosive components. No periarticular calcification. Soft tissues are prominent ar ound the second- fifth PIP joints probably baseline arthritic change. No air or foreign body seen in the soft tissues. Dense arterial tree calcifications are present. IMPRESSION: No air or foreign body in the soft tissues. No bone destructive changes.
--- NOTE | 2022-06-27 17:11 | EDPHYS ---
Physician Documentation [facility] Name: Margarita Dominique Age: 62 yrs Sex: Female : 1960 Arrival Date: 06/27/2022 Time: 15:45 Bed 24 Private MD: ED Physician Mac Aguero HPI: 06/27 16:20 This 62 yrs old Female presents to ER via Wheelchair with complaints of Skin snw Problem - right knee/finger. 16:20 The patient or guardian reports an abrasion, a contusion, injury. The complaints affect snw the left ring fingernail. Onset: The symptoms/episode began/occurred and became persistent. 16:22 just finished M/W/F dialysis. snw Historical: - Allergies: 16:10 No Known Allergies; kb3 - PMHx: 16:10 CVA; Diabetes - NIDDM; Dialysis; HEART FAILURE; Hypertension; Hypothyroidism; vitamin d kb3 deficiency; - PSHx: 16:10 LUE fistula; kb3 - Immunization history:: Adult Immunizations up to date, Client reports receiving the 2nd dose of the Covid vaccine, Last tetanus immunization: up to date. - Social history:: Smoking status: Patient denies any tobacco usage or history of. ROS: 16:19 Constitutional: Negative for fever, chills, and weight loss, Eyes: Negative for injury, snw pain, redness, and discharge, ENT: Negative for injury, pain, and discharge, Neck: Negative for injury, pain, and swelling, Cardiovascular: Negative for chest pain, palpitations, and edema, Respiratory: Negative for shortness of breath, cough, wheezing, and pleuritic chest pain, Abdomen/GI: Negative for abdominal pain, nausea, vomiting, diarrhea, and constipation, Back: Negative for injury and pain, : Negative for injury, bleeding, discharge, and swelling, Skin: Negative for injury, rash, and discoloration, Neuro: Negative for headache, weakness, numbness, tingling, and seizure. 16:19 MS/extremity: Positive for injury or acute deformity, of the dorsal aspect of distal phalanx of left ring finger. Exam: 16:17 Constitutional: This is a well developed, well nourished patient who is awake, alert, snw and in no acute distress. Head/Face: Normocephalic, atraumatic. Eyes: Pupils equal round and reactive to light, extra-ocular motions intact. Lids and lashes normal. Conjunctiva and sclera are non-icteric and not injected. Cornea within normal limits. Periorbital areas with no swelling, redness, or edema. ENT: Nares patent. No nasal discharge, no septal abnormalities noted. Tympanic membranes are normal and external auditory canals are clear. Oropharynx with no redness, swelling, or masses, exudates, or evidence of obstruction, uvula midline. Mucous membranes moist. Neck: Trachea midline, no thyromegaly or masses palpated, and no cervical lymphadenopathy. Supple, full range of motion without nuchal rigidity, or vertebral point tenderness. No Meningismus. Chest/axilla: Normal chest wall appearance and motion. Nontender with no deformity. No lesions are appreciated. Cardiovascular: Regular rate and rhythm with a normal S1 and S2. No gallops, murmurs, or rubs. Normal PMI, no JVD. No pulse deficits. Respiratory: Lungs have equal breath sounds bilaterally, clear to auscultation and percussion. No rales, rhonchi or wheezes noted. No increased work of breathing, no retractions or nasal flaring. Abdomen/GI: Soft, non-tender, with normal bowel sounds. No distension or tympany. No guarding or rebound. No evidence of tenderness throughout. Back: No spinal tenderness. No costovertebral tenderness. Full range of motion. MS/ Extremity: Pulses equal, no cyanosis. Neurovascular intact. Full, normal range of motion. Neuro: Awake and alert, GCS 15, oriented to person, place, time, and situation. Cranial nerves II-XII grossly intact. Motor strength 5/5 in all extremities. Sensory grossly intact. Cerebellar exam normal. Normal gait. Psych: Awake, alert, with orientation to person, place and time. Behavior, mood, and affect are within normal limits. 16:17 Skin: Appearance: Color: normal in color, injury, avulsion(s), a small of the left ring fingernail, pt smashed left fingernail and avulsed some of the area last week, area with dried avulsion, mild discoloration to left ring finger. +ROM. Pt also noted abrasion to prosthesis area at site of remote right bka scar. Vital Signs: 16:07 BP 129 / 61; Pulse 82; Resp 18; Temp 98.2; Pulse Ox 100% ; Weight 54.43 kg; Height 5 kb3 ft. 4 in. (162.56 cm); Pain 8/10; 18:01 BP 126 / 62; Pulse 78; Resp 16; Pulse Ox 100% on R/A; em6 16:07 Body Mass Index 20.60 (54.43 kg, 162.56 cm) kb3 MDM: 16:16 Patient medically screened. snw 17:07 Data reviewed: vital signs, nurses notes. Data interpreted: Pulse oximetry: on room air snw is 100 %. Interpretation: normal. Counseling: I had a detailed discussion with the patient and/or guardian regarding: the historical points, exam findings, and any diagnostic results supporting the discharge/admit diagnosis, radiology results, the need for outpatient follow up, to return to the emergency department if symptoms worsen or persist or if there are any questions or concerns that arise at home. Special discussion: I discussed in detail with the patient the higher chance of wound infection based on his presenting history. Based on the history and exam findings, there is no indication for further emergent testing or inpatient evaluation. I discussed with the patient/guardian the need to see the primary care provider for further evaluation of the symptoms. 17:08 Differential diagnosis: abrasion, wound infection, osteomyelitis. snw 0106 16:16 Order name: Hand Left 3 View XRAY; Complete Time: 17:05 snw 06 17:07 [place] [facility] [place]: please cleanse left ring finger/right bka stump with snw hibiclens, bactroban and dress; Complete Time: 18:01 06 17:07 Order name: Wound Care; Complete Time: 18:01 snw 0106 17:07 Order name: Wound dressing; Complete Time: 18:01 snw Administered Medications: 17:50 Drug: Bactroban (mupirocin) Ointment 2 % 1 application Route: Topical; Site: wound; em6 18:01 Follow up: Response: No adverse reaction em6 17:50 Drug: Hibiclens (chlorhexidine) Liquid 4 % 1 application Route: Topical; Site: wound; em6 18:01 Follow up: Response: No adverse reaction em6 Disposition: 18:52 Co-signature as Attending Physician, Mac Aguero DO I was immediately available on-site ms3 in the Emergency Department for consultation in the care of the patient. Disposition Summary: 06/27/22 17:11 Discharge Ordered Location: Home snw Condition: Stable snw Diagnosis - Contusion of finger with damage to nail snw - Abrasion of lower leg snw Followup: snw - With: Emergency Department - When: As needed - Reason: Worsening of condition Followup: snw - With: Private Physician - When: 2 - 3 days - Reason: Recheck today's complaints, Continuance of care, Re-evaluation by your physician Discharge Instructions: - Discharge Summary Sheet snw - Abrasion snw - Deep Skin Avulsion snw Forms: - Medication Reconciliation Form snw - Thank You Letter snw - Antibiotic Education snw - Prescription Opioid Use snw Prescriptions: - mupirocin 2 % Topical ointment - apply 1 application by TOPICAL route 3 times per day for 14 days; 50 gram; snw Refills: 0, Product Selection Permitted Signatures: Dispatcher [employer] EDMS Lucy Batista, [employer] Mac Aguero DO DO ms3 Becka Gleason, RN RN em6 Erin Burciaga, RN RN kb3
--- NOTE | 2022-06-27 17:11 | ER ---
Nurse's Notes [facility] Name: Margarita Dominique Age: 62 yrs Sex: Female : 1960 Arrival Date: 06/27/2022 Time: 15:45 Bed 24 Private MD: Diagnosis: Contusion of finger with damage to nail;Abrasion of lower leg Presentation: 06/27 16:07 Chief complaint: Patient's son or daughter states: pt with finger infection in left kb3 hand digit #4 x2 weeks, worse over the last 2 days. Pt also reports pain in LLE stump making it unable for her to wear her prosthetic. Coronavirus screen: Vaccine status: Patient reports receiving the 2nd dose of the covid vaccine. Client denies travel out of the [place] in the last 14 days. Ebola Screen: Patient negative for fever greater than or equal to 101.5 degrees Fahrenheit, and additional compatible Ebola Virus Disease symptoms Patient denies exposure to infectious person. Patient denies travel to an Ebola-affected area in the 21 days before illness onset. Initial Sepsis Screen: Does the patient meet any 2 criteria? No. Patient's initial sepsis screen is negative. Does the patient have a suspected source of infection? No. Patient's initial sepsis screen is negative. Risk Assessment: Do you want to hurt yourself or someone else? Patient reports no desire to harm self or others. Onset of symptoms was June 25, 2022. 16:07 Method Of Arrival: Wheelchair kb3 16:07 Acuity: YEFRI 3 kb3 Triage Assessment: 16:10 General: Appears in no apparent distress. Behavior is calm, cooperative. Pain: kb3 Complains of pain in dorsal aspect of distal phalanx of left ring finger, dorsal aspect of middle phalanx of left ring finger, dorsal aspect of proximal phalanx of left ring finger and left ring fingernail Pain does not radiate. Pain currently is 8 out of 10 on a pain scale. Historical: - Allergies: 16:10 No Known Allergies; kb3 - PMHx: 16:10 CVA; Diabetes - NIDDM; Dialysis; HEART FAILURE; Hypertension; Hypothyroidism; vitamin d kb3 deficiency; - PSHx: 16:10 LUE fistula; kb3 - Immunization history:: Adult Immunizations up to date, Client reports receiving the 2nd dose of the Covid vaccine, Last tetanus immunization: up to date. - Social history:: Smoking status: Patient denies any tobacco usage or history of. Screenin:44 [facility] ED Fall Risk Assessment (Adult) History of falling in the last 3 months, em6 including since admission No falls in past 3 months (0 pts) Confusion or Disorientation No (0 pts) Intoxicated or Sedated No (0 pts) Impaired Gait Yes (1 pt) Mobility Assist Device Used Yes (1 pt) Altered Elimination No (0 pt) Score/Fall Risk Level 0 - 2 = Low Risk Oriented to surroundings, Maintained a safe environment, Educated pt \T\ family on fall prevention, incl call for assistance when getting out of bed, Assessed \T\ reinforced patient's understanding of fall precautions, Provided non-skid footwear, Hourly rounding (assess needs \T\ fall precautionary measures) done, Used ambulatory aids as needed (educated on \T\ assisted with), Used gait belt as appropriate. Abuse screen: Denies threats or abuse. Nutritional screening: No deficits noted. Tuberculosis screening: No symptoms or risk factors identified. Assessment: 17:45 General: Appears comfortable, Behavior is cooperative. Pain: Complains of pain in left em6 hand and left ring fingernail and dorsal aspect of proximal phalanx of left ring finger and dorsal aspect of middle phalanx of left ring finger and dorsal aspect of distal phalanx of left ring finger Pain does not radiate. Pain currently is 5 out of 10 on a pain scale. Neuro: Yee Agitation-Sedation Scale (RASS): 0 - Alert and Calm. Cardiovascular: Patient's skin is warm and dry. Respiratory: Airway is patent Respiratory effort is even, unlabored, Respiratory pattern is regular, symmetrical. GI: No signs and/or symptoms were reported involving the gastrointestinal system. : No signs and/or symptoms were reported regarding the genitourinary system. EENT: No signs and/or symptoms were reported regarding the EENT system. Derm: left finger drainage noted. Musculoskeletal: Amputation of right leg. Vital Signs: 16:07 BP 129 / 61; Pulse 82; Resp 18; Temp 98.2; Pulse Ox 100% ; Weight 54.43 kg; Height 5 kb3 ft. 4 in. (162.56 cm); Pain 8/10; 18:01 BP 126 / 62; Pulse 78; Resp 16; Pulse Ox 100% on R/A; em6 16:07 Body Mass Index 20.60 (54.43 kg, 162.56 cm) kb3 ED Course: 15:45 Patient arrived in ED. am2 15:48 [facility]C [facility] snw 15:48 Mac Aguero DO is Attending Physician. snw 16:10 Triage completed. kb3 16:10 Arm band placed on right wrist. kb3 16:39 Hand Left 3 View XRAY In Process Unspecified. EDMS 17:44 Becka Gleason, RN is Primary Nurse. em6 17:45 Bed in low position. Call light in reach. Side rails up X 1. Pulse ox on. NIBP on. Warm em6 blanket given. 18:00 No provider procedures requiring assistance completed. Patient did not have IV access em6 during this emergency room visit. Administered Medications: 17:50 Drug: Bactroban (mupirocin) Ointment 2 % 1 application Route: Topical; Site: wound; em6 18:01 Follow up: Response: No adverse reaction em6 17:50 Drug: Hibiclens (chlorhexidine) Liquid 4 % 1 application Route: Topical; Site: wound; em6 18:01 Follow up: Response: No adverse reaction em6 Medication: 18:00 VIS not applicable for this client. em6 Outcome: 17:11 Discharge ordered by . snw 18:00 Discharged to home via wheelchair. em6 18:00 Condition: stable 18:00 Discharge instructions given to patient, family, Instructed on discharge instructions, follow up and referral plans. medication usage, wound care, Demonstrated understanding of instructions, follow-up care, medications, wound care, Prescriptions given X 1. 18:11 Patient left the ED. em6 Signatures: Dispatcher [employer] EDMA Lucy Batista FNP-C [employer] am2 Becka Gleason RN RN em6 Erin Burciaga RN RN kb3 Corrections: (The following items were deleted from the chart) 18:11 17:45 Musculoskeletal: Circulation, motion, and sensation intact. Range of motion: em6 intact in all extremities, em6
[2022-06-27] MEDS ORDERED: MUPIROCIN 2% OINT 22GM TUBE TOP ONE (17:54)
[2022-06-27 18:36] VITALS: TEMP 98.2; O2SAT 100
[2022-06-27 18:38] VITALS: BP 126/62
== END 2022-06-27 18:11 | disposition home or self-care (01) ==
LOC: ER 15:44
DX: S60.142A Contusion of left ring finger with damage to nail, initial encounter (principal); S80.811A Abrasion, right lower leg, initial encounter; Z89.511 Acquired absence of right leg below knee; I10 Essential (primary) hypertension; Z99.2 Dependence on renal dialysis
CPT/HCPCS: 99284

== ENCOUNTER 2022-07-02 22:21 | Inpatient (IN) | payer OTHER ==
--- OUTSIDE RECORDS SUMMARY | 2022-07-02 22:39 | XMS REPORT | Continuity of Care Document ---
:[address] [facility] t Address [address] [place] [address] Care Team Providers Name Role Phone Pcp, Patient Does Not Have A Primary Care Physician +[id number] Doctor Unassigned, [place] Attending Clinician Unavailable Shoaib [place] Attending Clinician Ariela Khalil Attending Clinician Ariela Khalil Admitting Clinician Payers Payer Name Policy Type Policy Number Effective Date Expiration Date Bibi Bryant C1 [id number] Common [employer] [facility] Problems Condition Condition Condition Status Onset Resolution Last Treating Co mments Source Name Details Category Date Date Treatment Clinician Date Thyroid Thyroid Disease Active 2018-06 [facility] nodule nodule 2-13 ity of 00:00: [address] Acquired Acquired Disease Active 2018-06 Unive rs hypothyroi hypothyroi 2-13 it y of dism dism 00:00: [address] 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-13 ity of mellitus mellitus 00:00: [place] with with 00 Medical diabetic diabetic Branch polyneurop polyneurop athy, athy, without without long-term long-term current current use of use of insulin insulin History of History of Disease Active 2018-06 U nivers cerebrovas cerebrovas 2-13 it y of cular cular 00:00: [place] disease disease 00 Medical Branch Amputated Amputated Disease Active 2018-06 Uni vers right leg right leg 2-13 ity of 00:00: [place] 00 Medical Branch N N Active Diagnosis [...] 2020-06-10 Memoria (finding) (finding) 01:37:21 l Active [place] Problem 06/10/2020 [facility] Hypertensi Hypertens Problem [...] Neuro Lumbar Lumbar Problem Active 2020-06-10 Weston titsu radiculopa radiculopa 01:37:21 l thy thy Vladimir (disorder) (disorder) Active Problem 06/10/2020 [facility] Paresthesi Paresthes Problem Active 2020-06-10 Memoria a ia 01:37:21 l (finding) (finding) Herm nilay Active Problem 06/10/2020 [facility] Peripheral Periphera Problem Active 2020-06-10 Memoria nerve l nerve 01:37:21 l disease disease Vladimir (disorder) (disorder) Active Problem 06/10/2020 [facility] Allergies, Adverse Reactions, Alerts Allergy Allergy Status Severity Reaction(s) Onset Inactive Treating Comm ents Source Name Type Date Date Clinician No Known DA Active [facility] Allergie 06-28 Clear s 00:00: Ros[facility] 00 [facility] Social History Social Habit Start Date Stop Date Quantity Comments Source Tobacco use and 2019-06-03 2019-06-03 Smokeless tobacco Un iversity of exposure 00:00:00 00:00:00 non-user [facility] Sex Assigned At [birth year] [facility] 00:00:00 00:00:00 [facility] Smoking Status Start Date Stop Date Source Unknown if ever smoked Common Sp dede [facility] Social History [facility] Medications Ordered Filled Start Stop Current Ordering Indication Dosage Frequency Signature Comments Components Source Medication Medication Date Date Medication? Clinician (SIG) Name Name TOMOvidio No GREGORIA(3) 1-07 TABLETA(S) 00:00: [place] 00 CON COMIDAS. Dose No Unknown 07 00:00: 00 TOME 2021-06 No GREGORIA(3) 0-04 TABLETA(S) 00:00: POR [place] B[place] 00 CON COMIDAS. TOME 2021-06 No GREGORIA(3) 0-04 TABLETA(S) 00:00: POR [...] DIXIE VEZ AL TAMIKO. Dose 0 No 800 Unknown 8-10 00:00: 00 Dose 2021-0 No Unknown 8-10 00:00: 00 Dose 0 No Unknown 8-10 00:00: 00 Dose 2021-0 No 4 Unknown 8-10 00:00: 00 Dose 2021-0 No 6 Unknown 8-10 00:00: 00 Dose 2022-0 No Unknown 8-10 00:00: 00 INJECT 2022-0 No [id number] TWICE DAILY 8-10 PER SLIDING 00:00: SCALE. 00 Dose 2022-0 No 800 Unknown 8-10 00:00: 00 Dose 2022-0 No Unknown 8-10 00:00: 00 Dose 2022-0 No Unknown 8-10 00:00: 00 Dose 2022-0 No 4 Unknown 8-10 00:00: 00 Dose 2022-0 No 6 Unknown 8-10 00:00: 00 Dose 2022-0 No Unknown 8-10 00:00: 00 INJECT 2022-0 No [id number] TWICE DAILY 8-10 PER SLIDING 00:00: SCALE. 00 Dose 2-0 No 800 Unknown 8-10 00:00: 00 Dose 2-0 No Unknown 8-10 00:00: 00 Dose 2-0 No Unknown 8-10 00:00: 00 Dose 2-0 No 4 Unknown 8-10 00:00: 00 Dose 2-0 No 6 Unknown 8-10 00:00: 00 Dose 2-0 No Unknown 8-10 00:00: 00 INJECT 2022-0 No [id number] TWICE DAILY 8-10 PER SLIDING 00:00: SCALE. 00 Dose 2-0 No 800 Unknown 8-10 00:00: 00 Dose 2-0 No Unknown 8-10 00:00: 00 Dose 2-0 No Unknown 8-10 00:00: 00 Dose 2-0 No 4 Unknown 8-10 00:00: 00 Dose 2022-0 No 6 Unknown 8-10 00:00: 00 TOME DOS 2021-0 No 100 (2) 8-10 CAPSULA(S) 00:00: POR LA BOCA 00 GREGORIA VECES AL TAMIKO. INJECT 2-0 No [id number] TWICE DAILY 8-10 PER SLIDING 00:00: SCALE. 00 Dose 2-0 No 800 Unknown 8-10 00:00: 00 Dose 2-0 No Unknown 8-10 00:00: 00 Dose 2-0 No Unknown 8-10 00:00: 00 Dose 2022-0 No 4 Unknown 8-10 00:00: 00 Dose 2022-0 No 6 Unknown 8-10 00:00: 00 TOME DOS 2021-0 No 100 (2) 8-10 CAPSULA(S) 00:00: POR LA BOCA 00 GREGORIA VECES AL TAMIKO. INJECT No [id number] TWICE DAILY 8-10 PER SLIDING 00:00: SCALE. 00 TOME DIXIE No 50 (1) 8-09 TABLETA(S) 00:00: POR LA BOCA 00 DIXIE VEZ AL TAMIKO. &lt No 100 - 00:00: 00 Dose 0 No Unknown 01-28 00:00: 00 APPLY TO No AFFECTED 01-28 AREA 30 00:00: MINUTES 00 BEFORE TREATMENT. TOME MEDIA No 25 (1/2) 8-09 TABLETA(S) 00:00: POR LA BOCA 00 DOS VECES AL TAMIKO. (6AM Y 6PM). TOME DIXIE No 25 (1) 8-09 TABLETA(S) 00:00: POR LA BOCA 00 DIXIE VEZ AL TAMIKO. Dose No Unknown 01-28 00:00: 00 TOME DIXIE No 50 (1) 8-09 TABLETA(S) 00:00: POR LA BOCA 00 DIXIE VEZ AL TAMIKO. INJECT No UNDER THE -09 SKIN DAILY 00:00: DIRECTED 00 BY SLIDING [...] 100 8-09 00:00: 00 TOME DIXIE No 50 (1) 8-09 TABLETA(S) 00:00: POR LA BOCA 00 DIXIE VEZ AL TAMIKO. &lt 0 No 100 8-09 00:00: 00 Dose 2021-0 No Unknown 8 00:00: 00 APPLY TO No AFFECTED 8-09 AREA 30 00:00: MINUTES 00 BEFORE TREATMENT. TOME MEDIA No 25 (1/2) 8-09 TABLETA(S) 00:00: POR LA BOCA 00 DOS VECES AL TAMIKO. (6AM Y 6PM). TOME DIXIE No 25 (1) 8-09 TABLETA(S) 00:00: POR LA BOCA 00 DIXIE VEZ AL TAMIKO. Dose 0 No Unknown 8- 00:00: 00 TOME DIXIE No 50 (1) 8-09 TABLETA(S) 00:00: POR LA BOCA 00 DIXIE VEZ AL TAMIKO. INJECT 0 No UNDER THE 8-09 SKIN DAILY 00:00: [...] VEZ AL TAMIKO. &lt 0 No 100 8-09 00:00: 00 TOME DIXIE No 50 (1) 8-09 TABLETA(S) 00:00: POR LA BOCA 00 DIXIE VEZ AL TAMIKO. &lt No 100 8- 00:00: 00 Dose 2021-0 No Unknown 8- 00:00: 00 APPLY TO 0 No AFFECTED 8-09 AREA 30 00:00: MINUTES 00 BEFORE TREATMENT. TOME MEDIA No 25 (1/2) 8-09 TABLETA(S) 00:00: POR LA BOCA 00 DOS VECES AL TAMIKO. (6AM Y 6PM). TOME DIXIE 0 No 25 (1) 8-09 TABLETA(S) 00:00: POR LA BOCA 00 DIXIE VEZ AL TAMIKO. Dose 2021-0 No Unknown 8-09 00:00: 00 TOME DIXIE No 50 (1) [...] VEZ AL TAMIKO. &lt 0 No 100 8-09 00:00: 00 TOME DIXIE No 50 (1) 8-09 TABLETA(S) 00:00: POR LA BOCA 00 DIXIE VEZ AL TAMIKO. &lt 2021-0 No 100 8-09 00:00: 00 Dose 2021-0 No Unknown 8- 00:00: 00 APPLY TO 2021-0 No AFFECTED 8- AREA 30 00:00: MINUTES 00 BEFORE TREATMENT. TOME MEDIA 0 No 25 (1/2) 8-09 TABLETA(S) 00:00: POR LA BOCA 00 DOS VECES AL TAMIKO. (6AM Y 6PM). TOME DIXIE No 25 (1) 8-09 TABLETA(S) 00:00: POR LA BOCA 00 DIXIE VEZ AL TAMIKO. Dose 2021-0 No Unknown - 00:00: 00 TOME DIXIE 0 No 50 (1) 8-09 TABLETA(S) 00:00: POR LA BOCA 00 DIXIE VEZ AL TAMIKO. INJECT 0 No UNDER THE - SKIN DAILY 00:00: [...] No 100 8- 00:00: 00 TOME DIXIE No 50 (1) 8-09 TABLETA(S) 00:00: POR LA BOCA 00 DIXIE VEZ AL TAMIKO. &lt 0 No 100 - 00:00: 00 Dose 2021-0 No Unknown 01-28 00:00: 00 APPLY TO 0 No AFFECTED - AREA 30 00:00: MINUTES 00 BEFORE TREATMENT. TOME MEDIA No 25 (1/2) 8-09 TABLETA(S) 00:00: POR LA BOCA 00 DOS VECES AL TAMIKO. (6AM Y 6PM). TOME DIXIE No 25 (1) 8-09 TABLETA(S) 00:00: POR LA BOCA 00 DIXIE VEZ AL TAMIKO. Dose 0 No Unknown - 00:00: 00 TOME DIXIE 0 No 50 (1) 8-09 TABLETA(S) 00:00: POR LA BOCA 00 DIXIE VEZ AL TAMIKO. INJECT No UNDER THE 8-09 SKIN DAILY 00:00: [...] BOCA 00 DIXIE VEZ AL TAMIKO. benzonatate No 1mg 100 mg 7-01 capsule 00:00: 00 benzonatate No 1mg 100 mg 7-01 capsule 00:00: [...] 00:00: 00 INJECT PER 0 No SLIDING - SCALE FOR 00:00: DIABETES. 00 MAX DOSE OF 30 UNITS. INJECT PER 0 No SLIDING 7- SCALE FOR 00:00: DIABETES. 00 MAX DOSE OF 30 UNITS. benzonatate 2021-0 No 1mg 100 mg 7- capsule 00:00: 00 benzonatate 2021-0 No 1mg 100 mg 7- capsule 00:00: 00 TOME DIXIE 2021-0 No (1) - TABLETA(S) 00:00: POR LA BOCA 00 DIXIE VEZ AL TAMIKO. TOME No GREGORIA(3) 12-20 TABLETA(S) 00:00: POR LA BOCA 00 CON COMIDAS. Dose No Unknown 12-20 00:00: 00 TOME DIXIE 2021-0 No (1) - TABLETA(S) 00:00: POR LA BOCA 00 AL ACOSTARSE. Dose No Unknown 12-20 00:00: 00 INJECT PER 0 No SLIDING 12-20 SCALE FOR 00:00: DIABETES. 00 MAX DOSE OF 30 UNITS. INJECT PER No SLIDING - SCALE FOR 00:00: DIABETES. 00 MAX DOSE OF 30 UNITS. benzonatate 2021-0 No 1mg 100 mg 7- capsule 00:00: 00 benzonatate 2021-0 No 1mg 100 mg 7- capsule 00:00: 00 TOME DIXIE 2021-0 No (1) - TABLETA(S) 00:00: POR LA [...] 100 mg 7- capsule 00:00: 00 benzonatate No 1mg 100 mg 7- capsule 00:00: 00 TOME DIXIE No (1) 7- TABLETA(S) 00:00: POR LA BOCA 00 DIXIE VEZ AL TAMIKO. TOME No GREGORIA(3) 12-20 TABLETA(S) 00:00: POR LA BOCA 00 CON COMIDAS. Dose No Unknown 12-20 00:00: 00 TOME DIXIE No (1) 7- TABLETA(S) 00:00: POR LA BOCA 00 AL ACOSTARSE. Dose No Unknown 12-20 00:00: 00 INJECT PER No SLIDING 12-20 SCALE FOR 00:00: DIABETES. 00 MAX DOSE OF 30 UNITS. INJECT PER No SLIDING 12-20 SCALE FOR 00:00: DIABETES. 00 MAX DOSE [...] 75 mg 6-11 tablet 00:00: 00 furosemide 2021-0 No 1mg 20 mg 6-11 tablet 00:00: [...] 75 mg 6-11 tablet 00:00: 00 furosemide 2021-0 No 1mg 20 mg 6-11 tablet 00:00: 00 isosorbide 2021-0 No 1mg mononitrate 6-11 ER 30 mg 00:00: tablet,exte 00 nded release 24 hr metoprolol No 5mg tartrate 25 6-11 mg tablet 00:00: 00 Lantus 0 No 10(3 Solostar 6-11 mL) U-100 00:00: [...] VEZ AL TAMIKO EN LA TARDE. atorvastati No 1mg n 40 mg 6-11 tablet 00:00: 00 TOME MEDIA No (1/2) 6-11 TABLETA(S) 00:00: [...] VEZ AL TAMIKO. TOME DIXIE No (1) 6- PAQUETE(S) 00:00: POR LA BOCA 00 GREGORIA [...] 75 mg 6-11 tablet 00:00: 00 furosemide 2021- No 1mg 20 mg 6-11 tablet 00:00: [...] VEZ AL TAMIKO. Dose 2021-0 No Unknown 1-06 00:00: 00 Dose 2021-0 No Unknown -06 00:00: 00 amlodipine No 1mg 10 mg 1-06 tablet 00:00: [...] 50 mg 0-13 tablet 00:00: 00 lisinopril 2021-1 No 1mg 40 mg 0-13 tablet 00:00: 00 levothyroxi 1-1 No 1mcg ne 25 mcg 0-13 tablet [...] 50 mg 0-13 tablet 00:00: 00 lisinopril 2021-1 No 1mg 40 mg 0-13 tablet 00:00: 00 levothyroxi 1-1 No 1mcg ne 25 mcg 0-13 tablet [...] 40 mg 6-05 tablet 00:00: 00 levothyroxi 1-0 No 1mcg ne 25 mcg 6-05 tablet [...] mcg 6-05 tablet 00:00: 00 Humulin R 1-0 No unit/mL Regular 6-05 U-100 00:00: Insulin 100 00 unit/mL injection solution Lantus 1-0 No 10(3 Solostar 6-05 mL) U-100 00:00: Insulin 100 00 unit/mL (3 mL) subcutaneou s pen hydralazine 1-0 No 1mg 50 mg 6-05 tablet 00:00: 00 amlodipine 1-0 No 1mg 10 mg 6-05 tablet 00:00: 00 lisinopril 1-0 No 1mg 40 mg 6-05 tablet 00:00: 00 carvedilol 1-0 No 1mg 25 mg 6-05 tablet 00:00: 00 clopidogrel 1-0 No 1mg 75 mg 6-05 tablet 00:00: [...] unit/mL (3 mL) subcutaneou s pen clopidogrel 2021-0 No 1mg 75 mg 2-03 [...] 40 mg 2-03 tablet 00:00: 00 clopidogrel 2020-0 No 1mg 75 mg 2-03 tablet 00:00: 00 atorvastati 2020-0 No 1mg n 40 mg 2-03 tablet 00:00: 00 amlodipine 2020-0 No 1mg 10 mg 2-03 tablet 00:00: [...] unit/mL (3 mL) subcutaneou s pen Lantus 2019- No 10(3 Solostar 0-28 mL) U-100 00:00: [...] n 40 mg 5-30 tablet 00:00: 00 gabapentin 2020-0 Yes 100 mg = 1 [...] tab, PO, l tablet 20:33: Daily, 0 [place] 00 Refill(s) cyclobenzap 2020-0 Yes 10 mg = 1 M emoria rine 10 mg 5-28 tab, PO, l oral tablet 20:33: TID, 0 Herm nilay 00 Refill(s) Fluticasone 2020-0 Yes NASAL, [place] titus propionate 5-28 Daily, 0 l 0.05 20:33: Refill(s) [place] MG/ACTUAT 00 Metered Dose Nasal Wyatt gabapentin 2020-0 Yes 100 mg = 1 [...] titus 5-28 SUB-Q, l 20:33: ONCE, 0 [place] 00 Refill(s) Levothyroxi 2020-0 Yes 25 Memori [...] Refill(s) Vladimir MG/ACTUAT 00 Metered Dose Nasal Wyatt amLODIPine 2020-0 Yes 10 mg = 1 Me moria 10 mg oral 5-28 tab, PO, l tablet 20:33: Daily, 0 Vladimir 00 Refill(s) Aspirin 81 2020-0 Yes 81 mg = 1 Me moria MG Enteric 5-28 tab, PO, l Coated 20:33: Daily, # [place] Tablet 00 90 tab, 3 Refill(s) atorvastati [...] 5-28 Daily, 0 l 0.05 20:33: Refill(s) [place] MG/ACTUAT 00 Metered Dose Nasal Wyatt gabapentin 2020-0 Yes 100 mg = 1 M emoria 100 MG Oral 5-28 cap, PO, l Capsule 20:33: Bedtime, 0 Herm nilay Refill(s) Insulin 2020-0 Yes 10 unit, Memori a Glargine 5-28 SUB-Q, l 100 UNT/ML 20:33: Bedtime, # H ermann Injectable 00 10 mL, 0 Solution Refill(s) [Lantus] Novolin R 2020-0 Yes 12 unit, Weston titus 5-28 SUB-Q, l 20:33: ONCE, 0 [place] 00 Refill(s) Levothyroxi 2020-0 Yes 25 Memori [...] titus 5-28 SUB-Q, l 20:33: ONCE, 0 [place] 00 Refill(s) Levothyroxi 2020-0 Yes 25 Memori a ne Sodium 5-28 microgram l 0.025 MG 20:33: = 1 tab, Jossie nn Oral Tablet 00 PO, Daily, [Synthroid] 0 Refill(s) amLODIPine 2020-0 Yes 10 mg = 1 Me moria 10 mg oral 5-28 tab, PO, l tablet 20:33: Daily, 0 [place] 00 Refill(s) Aspirin 81 2020-0 Yes 81 [...] tab, PO, l tablet 20:33: Daily, 0 [place] 00 Refill(s) cyclobenzap 2020-0 Yes 10 mg = 1 M emoria rine 10 mg 5-28 tab, PO, l oral tablet 20:33: TID, 0 Herm nilay 00 Refill(s) Fluticasone 2020-0 Yes NASAL, Weston titus propionate 5-28 Daily, 0 l 0.05 20:33: Refill(s) Vladimir MG/ACTUAT 00 Metered Dose Nasal Wy[place] gabapentin 2020-0 Yes 100 mg = 1 M emoria 100 MG Oral 5-28 cap, PO, l Capsule 20:33: Bedtime, 0 Herm nilay Refill(s) Insulin 2020-0 Yes 10 unit, Memori [...] tab, PO, l Coated 20:33: Daily, # [place] Tablet 00 90 tab, 3 Refill(s) atorvastati [...] l oral tablet 20:33: TID, 0 Herm Refill(s) Fluticasone 2020-0 Yes NASAL, Weston titus propionate 5-28 Daily, 0 l 0.05 20:33: Refill(s) Vladimir MG/ACTUAT 00 Metered Dose Nasal Wyatt acetaminoph 2020-0 No 1mg en ER 650 [...] mcg by ity of tablet 10:28: mouth [place] [address] every Medical morning. Branch clopidogrel 2018- Yes 75mg Take 75 mg Univers 75 mg 2-13 by mouth ity of tablet 10:28: daily. [place] [address] Medical Branch atorvastati 2018- Yes 40mg Take 40 mg Univers n 40 mg 2-13 by mouth ity of tablet 10:28: at [place] [address] bedtime. Medical Branch gabapentin 2018- Yes 100mg Take 100 Un jen 100 mg 2-13 mg by ity of capsule 10:28: mouth 3 [place] [address] (three) Medical times Branch daily. glimepiride 2018-06 Yes 1mg Take 1 mg U nivers 1 mg tablet 2-13 by mouth ity of 10:28: daily with [place] [address] breakfast. Medical Branch BABY 2018-06 Yes Take by Univers ASPIRIN 2-13 mouth. ity of ORAL 10:28: [place] [address] Medical Branch furosemide 2018-06 No 1mg 20 [...] mcg 1-06 tablet 00:00: 00 Humulin R 2018-06 No 12unit/ Regular 1-06 mL U-100 00:00: Insulin 100 00 unit/mL injection solution Lantus 2018-06 No 20(3 Solostar 1-06 mL) U-100 00:00: Insulin 100 00 unit/mL (3 mL) subcutaneou s pen amlodipine 2018-06 No 1mg 10 mg 1-06 tablet 00:00: 00 carvedilol 2018-06 No 1mg 25 mg 1-06 tablet 00:00: 00 lisinopril 2019- No 1mg 20 mg 1-06 tablet 00:00: 00 clopidogrel 2018- No 1mg 75 mg 1-06 tablet 00:00: 00 atorvastati 2018- No 1mg n 40 mg 1-06 tablet 00:00: 00 levothyroxi 2018- No 1mcg ne 25 mcg 1-06 tablet [...] 25 mg 1-06 tablet 00:00: 00 lisinopril 2019- No 1mg 20 mg 1-06 tablet 00:00: 00 clopidogrel 2018- No 1mg 75 mg 1-06 tablet 00:00: 00 atorvastati 2018- No 1mg n 40 mg 1-06 tablet 00:00: 00 levothyroxi 2018- No 1mcg ne 25 mcg 1-06 tablet 00:00: 00 Humulin R 2018- No 12unit/ Regular 1-06 mL U-100 00:00: Insulin 100 00 unit/mL injection solution Lantus 2018- No 20(3 Solostar 1-06 mL) U-100 00:00: Insulin 100 00 unit/mL (3 mL) subcutaneou s pen amlodipine 2018-1 No 1mg 10 mg 1-06 tablet 00:00: 00 carvedilol 2019-1 No 1mg 25 mg 1-06 tablet 00:00: [...] 25 mcg 2-12 tablet 00:00: 00 amlodipine 2017-06 No 1mg 10 mg 2-11 tablet 00:00: 00 carvedilol 2018-1 No 1mg 25 mg 2-11 tablet 00:00: 00 amlodipine 2018-1 No 1mg 10 mg 2-11 tablet 00:00: 00 carvedilol 2018-1 No 1mg 25 mg 2-11 tablet 00:00: 00 amlodipine 2018-1 No 1mg 10 mg 2-11 tablet 00:00: 00 carvedilol 2018-1 No 1mg 25 mg 2-11 tablet 00:00: 00 amlodipine 2018-1 No 1mg 10 mg 2-11 tablet 00:00: 00 carvedilol 2018-1 No 1mg 25 mg 2-11 tablet 00:00: 00 amlodipine 2018-1 No 1mg 10 mg 2-11 tablet 00:00: 00 carvedilol 2018-1 No 1mg 25 mg 2-11 tablet 00:00: 00 amlodipine 2018-1 No 1mg 10 mg 2-11 tablet 00:00: 00 carvedilol 2018-1 No 1mg 25 mg 2-11 tablet 00:00: 00 gabapentin 2018-1 No 1mg 100 mg 2-06 capsule 00:00: 00 gabapentin 2018-1 No 1mg 100 mg 2-06 capsule 00:00: 00 gabapentin 2018-1 No 1mg 100 mg 2-06 capsule 00:00: 00 gabapentin 2018-1 No 1mg 100 mg 2-06 capsule 00:00: 00 gabapentin 2018-1 No 1mg 100 mg 2-06 capsule 00:00: 00 gabapentin 2018-1 No 1mg 100 mg 2-06 capsule 00:00: 00 amlodipine 2018-1 No 1mg 10 mg 1-21 tablet 00:00: 00 amlodipine 2018-1 No 1mg 10 mg 1-21 tablet 00:00: 00 amlodipine 2018-1 No 1mg 10 mg 1-21 tablet 00:00: 00 amlodipine 2018-1 No 1mg 10 mg 1-21 tablet 00:00: 00 amlodipine 2018-1 No 1mg 10 mg 1-21 tablet 00:00: 00 amlodipine 2018- No 1mg 10 mg 1-21 tablet 00:00: 00 Novolin R 2017- No unit/mL Regular 1-16 U-100 00:00: Insulin 100 00 unit/mL injection solution Novolin R 2017-06 No 12unit/ Regular 1-16 mL U-100 00:00: Insulin 100 00 unit/mL injection solution Novolin R 2017-06 No unit/mL Regular 1-16 U-100 00:00: Insulin 100 00 unit/mL injection solution Novolin R 2018- No 12unit/ Regular 1-16 mL U-100 00:00: Insulin 100 00 unit/mL injection solution Novolin R 2018-1 No unit/mL Regular 1-16 U-100 00:00: Insulin 100 00 unit/mL injection solution Novolin R 2018- No 12unit/ Regular 1-16 mL U-100 00:00: [...] 100 00 unit/mL injection solution Novolin R 2018- No 12unit/ Regular 1-16 mL U-100 00:00: Insulin 100 00 unit/mL injection solution hydralazine 2017-06 No 1mg 25 mg 0-31 tablet 00:00: [...] on nasal 00 spray,suspe nsion Novolin R 2017-0 No 12unit/ Regular 9-04 [...] 00 Novolin R 2018-0 No unit/mL Regular 806 U-100 00:00: Insulin 100 00 unit/mL injection solution Novolin R 2018-0 No 8unit/m Regular 8-06 L U-100 00:00: Insulin 100 00 unit/mL injection solution Novolin R 2018-0 No unit/mL Regular 806 U-100 00:00: Insulin 100 00 unit/mL injection solution Novolin R 2018-0 No 8unit/m Regular 8-06 L U-100 00:00: Insulin 100 00 unit/mL injection solution Novolin R 2018-0 No unit/mL Regular 806 U-100 00:00: Insulin 100 00 unit/mL injection solution Novolin R 2018-0 No 8unit/m Regular 8-06 L U-100 00:00: Insulin 100 00 unit/mL injection solution Novolin R 2018-0 No unit/mL Regular 8-06 U-100 00:00: Insulin 100 00 unit/mL injection solution Novolin R 2018-0 No 8unit/m Regular 8-06 L U-100 00:00: Insulin 100 00 unit/mL injection solution Novolin R 2018-0 No unit/mL Regular 806 U-100 00:00: Insulin 100 00 unit/mL injection [...] 00:00: tablet 00 Atorvastati Atorvastati Yes Tre MONTOYA DIXIE Common n Calcium n Calcium Syed (1) Spiri t TABLETA(S) - [facility] TAM[facility] Center Clopidogrel Clopidogrel Yes Tre MONTOYA DIXIE Common Bisulfate Bisulfate Syed (1) Spiri t TABLETA(S) - [facility] TAM[facility] Center Tramadol Tramadol Yes Tre (Schedule Common HCl HCl Syed IV Drug) Otoniel TOME DIXIE - [facility] (1[facility] St TABLETA(S) [facility] CAD Center SEIS [place] [facility] N[place]ESARIO PARA DOLOR. Acetaminoph Acetaminoph Yes Tre (Schedule Common en-Codeine en-Codeine Syed III Drug) Otoniel #3 #3 TOME DIXIE - [facility] (1[facility] St TABLETA(S) [facility] CAD Center SEIS HORAS VELVET NECESARIO PARA DOLOR. [...] DE - [facility] LA PIEL [facility] CADA [facility] NOC. Medical Center Carvedilol Carvedilol Yes Tre TOME DIXIE Common Syed (1) Spirit TABLETA(S) - [facility] T[facility]. Center Humulin R Humulin R Yes Tre INJECT Common Syed TWELVE Spirit (12) UNITS - [facility] UNDER THE St SKIN WITH [facility] MEALS Medical DIRECTED Center AND USE SLIDING SCALE UP TO MAX DAILY DOSE OF 40 UNITS. Furosemide Furosemide Yes Tre MONTYOA DIXIE Common Syed (1) Spirit TABLETA(S) - [facility] TAM[facility]. Center Lidocaine-P Lidocaine-P Yes Tre APLIQUE Common rilocaine rilocaine Syed DIXIE (1) Sp dede HORA ANTES - [facility] DEL [facility] GREGORIA VECES Medical A LA Center SEMANA. [...] Besylate 10 Besylate MG MG 10 MG Immunizations Ordered Immunization Filled Immunization Date Status Commen ts Source Name Name Jackson JEROMEID-19 2020-10-04 Completed Vaccine 00:00:00 Jackson COVID-19 2020-10-04 Completed Vaccine 00:00:00 Jackson COVID-19 2020-10-04 Completed Vaccine 00:00:00 Giovannia COVID-19 2020-10-04 Completed Vaccine 00:00:00 Giovannia COVID-19 2020-10-04 Completed Vaccine 00:00:00 Giovannia COVID-19 2020-10-04 Completed Vaccine 00:00:00 Giovannia COVID-19 2020-09-05 Completed Vaccine 00:00:00 Jackson COVID-19 2020-09-05 Completed Vaccine 00:00:00 Giovannia COVID-19 2020-09-05 Completed Vaccine 00:00:00 Giovannia COVID-19 2020-09-05 Completed Vaccine 00:00:00 Giovannia COVID-19 2020-09-05 Completed Vaccine 00:00:00 Giovannia COVID-19 2020-09-05 Completed Vaccine 00:00:00 zoster 2018-02-04 [...] Time Observation Value Comments Source BP Systolic 2022-06-28 10:30:00 124 mm[Hg] BP Diastolic 2022-06-28 10:30:00 79 mm[Hg] Weight Measured 2022-06-28 10:30:00 120.00 pounds Height Measured 2022-06-28 10:30:00 63.00 inches Body Temperature 2022-06-28 10:30:00 Heart Rate 2022-06-28 10:30:00 85.00 /min Respiratory Rate 2022-06-28 10:30:00 BP Systolic 2022-05-14 16:22:00 134 mm[Hg] BP [...] /min Systolic (mm Hg) 2020-06-07 15:31:00 Weston titusl Vladimir Diastolic (mm Hg) 2020-06-07 15:31:00 Mem orial Vladimir Heart Rate 2020-06-07 15:31:00 [facility] [place] Respitory Rate 2020-06-07 15:31:00 Selene al Vladimir Height 2020-06-07 15:31:[address] [facility] 2020-06-07 15:31:00 [facility] Vladimir BMI Calculated 2020-06-07 15:31:00 Selene al [place] BP Systolic 2020-04-18 15:07:00 168 mm[Hg] BP Diastolic 2020-04-18 15:07:00 69 mm[Hg] Weight Measured 2020-04-18 15:07:00 126.80 pounds Height Measured 2020-04-18 15:07:00 63.00 inches Body Temperature 2020-04-18 15:07:00 98.30 degrees Heart Rate 2020-04-18 15:07:00 77.00 /min Respiratory Rate 2020-04-18 15:07:00 18.00 /min Systolic (mm Hg) 2020-04-05 19:29:00 [place] [facility] [place] Diastolic (mm Hg) 2020-04-05 19:29:00 [facility] [place] Heart Rate 2020-04-05 19:29:00 [facility] [place] Respitory Rate 2020-04-05 19:29:00 [facility] [place] Systolic (mm Hg) 2020-02-23 20:37:00 [place] [facility] [place] Diastolic (mm Hg) 2020-02-23 20:37:00 [facility] [place] Heart Rate 2020-02-23 20:37:00 [facility] [place] Respitory Rate 2020-02-23 20:37:00 [facility] [place] Temperature Oral (F) 2020-02-23 20:37:00 98.3 F [facility] [place] Height 2020-02-23 20:37:00 157.48 cm [facility] Weight 2020-02-23 20:37:00 [facility] [place] BMI Calculated 2020-02-23 20:37:00 [facility] [place] BP Systolic 2020-01-09 17:09:00 159 mm[Hg] BP Diastolic 2020-01-09 17:09:00 75 mm[Hg] Weight Measured 2020-01-09 17:09:00 132.80 pounds Height Measured 2020-01-09 17:09:00 63.00 inches Body Temperature 2020-01-09 17:09:00 98.10 degrees Heart Rate 2020-01-09 17:09:00 85.00 /min Respiratory Rate 2020-01-09 17:09:00 17.00 /min Systolic (mm Hg) 2020-01-05 20:43:00 [place] [facility] [place] Diastolic (mm Hg) 2020-01-05 20:43:00 [facility] [place] Heart Rate 2020-01-05 20:43:00 [facility] [place] Respitory Rate 2020-01-05 20:43:00 [facility] [place] Temperature Oral (F) 2020-01-05 20:43:00 99.1 F [facility] Height 2020-01-05 20:43:00 160.02 cm [facility] Weight 2020-01-05 20:43:00 [facility] BMI Calculated 2020-01-05 20:43:00 [facility] [place] BP Systolic 2019-11-19 12:06:00 213 mm[Hg] BP [...] [facility] [place] Heart Rate 2019-11-17 20:14:00 [facility] [place] Resp[facility] [place] [facility] 2019-11-17 20:14:00 160.02 cm [facility] [place] Weight 2019-11-17 20:14:00 [facility] [place] BMI Calculated 2019-11-17 20:14:00 [facility] al [place] [facility] 2019-09-01 16:43:00 136 mm[Hg] BP [...] Procedure Date / Time Performed Performing Clinician [facility] e REFERRAL- 2022-02-06 05:01:00 Doctor Unassigned[facility] REQUEST/RESPONSE Name Medical Branch BKA - Below knee [facility] Karthik n amputation Plan of Care Planned Activity Planned Date Details Comments Source Goal Plan of Care Note [code = 66482-1] Goal Plan of Care Note [code = 54617-3] Goal Plan of Care Note [code = 27910-2] Goal Plan of Care Note [code = 34827-5] Goal Plan of Care Note [code = 82882-3] Goal Plan of Care Note [code = 33477-3] Goal Plan of Care Note [code = 21103-6] Goal Plan of Care Note [code = 50395-5] Goal Plan of Care Note [code = 92179-4] Goal Plan of Care Note [code = 87912-9] Goal Plan of Care Note [code = 47429-0] Goal Plan of Care Note [code = 07626-0] Goal Plan of Care Note [code = 87177-9] Goal Plan of Care Note [code = 03158-8] Goal Plan of Care Note [code = 42591-4] Goal Plan of Care Note [code = 74181-5] Goal Plan of Care Note [code = 24907-1] Goal Plan of Care Note [code = 87814-9] Goal Plan of Care Note [code = 66686-2] Goal Plan of Care Note [code = 11873-6] Goal Plan of Care Note [code = 86247-2] Goal Plan of Care Note [code = 24869-7] Goal Plan of Care Note [code = 15635-0] Goal Plan of Care Note [code = 05232-9] Goal Plan of Care Note [code = 97635-3] Goal Plan of Care Note [code = 63666-4] Goal Plan of Care Note [code = 71663-6] Goal Plan of Care Note [code = 40682-8] Goal Plan of Care Note [code = 25806-0] Goal Plan of Care Note [code = 53609-3] Goal Plan of Care Note [code = 01744-7] Goal Plan of Care Note [code = 97196-2] Goal Plan of Care Note [code = 26534-9] Goal Plan of Care Note [code = 66931-0] Goal Plan of Care Note [code = 88666-3] Goal Plan of Care Note [code = 97715-5] Goal Plan of Care Note [code = 49653-5] Goal Plan of Care Note [code = 25893-2] Goal Plan of Care Note [code = 93832-2] Goal Plan of Care Note [code = 40785-0] Goal Plan of Care Note [code = 19716-7] Goal Plan of Care Note [code = 64622-7] Goal Plan of Care Note [code = 82639-2] Goal Plan of Care Note [code = 91528-6] Goal Plan of Care Note [code = 85741-5] Goal Plan of Care Note [code = 43851-8] Goal Plan of Care Note [code = 31871-8] Goal Plan of Care Note [code = 83909-5] Goal Plan of Care Note [code = 36387-8] Goal Plan of Care Note [code = 28611-6] Goal Plan of Care Note [code = 95390-4] Goal Plan of Care Note [code = 05677-2] Goal Plan of Care Note [code = 50554-0] Goal Plan of Care Note [code = 82143-1] Goal Plan of Care Note [code = 83010-8] Goal Plan of Care Note [code = 58889-9] Goal Plan of Care Note [code = 53362-4] Goal Plan of Care Note [code = 59881-3] Goal Plan of Care Note [code = 50710-6] Goal Plan of Care Note [code = 51005-3] Goal Plan of Care Note [code = 70113-7] Goal Plan of Care Note [code = 40985-3] Goal Plan of Care Note [code = 06566-6] Goal Plan of Care Note [code = 55080-6] Goal Plan of Care Note [code = 98393-8] Goal Plan of Care Note [code = 84253-6] Goal Plan of Care Note [code = 12321-7] Goal Plan of Care Note [code = 15549-7] Goal Plan of Care Note [code = 25395-4] Goal Plan of Care Note [code = 88933-9] Goal Plan of Care Note [code = 91300-5] Goal Plan of Care Note [code = 09963-2] Goal Plan of Care Note [code = 00747-1] Goal Plan of Care Note [code = 57169-0] Goal Plan of Care Note [code = 64148-4] Goal Plan of Care Note [code = 61524-4] Goal Plan of Care Note [code = 37345-7] Goal Plan of Care Note [code = 59004-6] Goal Plan of Care Note [code = 54950-2] Goal Plan of Care Note [code = 28533-5] Goal Plan of Care Note [code = 20686-2] Goal Plan of Care Note [code = 01795-8] Goal Plan of Care Note [code = 69126-7] Goal Plan of Care Note [code = 67478-9] Goal Plan of Care Note [code = 21764-8] Goal Plan of Care Note [code = 39541-2] Goal Plan of Care Note [code = 69972-9] Goal Plan of Care Note [code = 65295-1] Goal Plan of Care Note [code = 75889-3] Goal Plan of Care Note [code = 12739-6] Goal Plan of Care Note [code = 83143-2] Goal Plan of Care Note [code = 30898-5] Goal Plan of Care Note [code = 99682-8] Goal Plan of Care Note [code = 00039-9] Goal Plan of Care Note [code = 37514-1] Goal Plan of Care Note [code = 66288-3] Goal Plan of Care Note [code = 58677-4] Goal Plan of Care Note [code = 31749-7] Goal Plan of Care Note [code = 33600-2] Goal Plan of Care Note [code = 62269-3] Goal Plan of Care Note [code = 98668-3] Goal Plan of Care Note [code = 55877-4] Goal Plan of Care Note [code = 85583-8] Goal Plan of Care Note [code = 93757-6] Goal Plan of Care Note [code = 30317-7] Goal Plan of Care Note [code = 65608-1] Goal Plan of Care Note [code = 02358-9] Goal Plan of Care Note [code = 56608-6] Goal Plan of Care Note [code = 57534-8] Goal Plan of Care Note [code = 77626-9] Goal Plan of Care Note [code = 23297-6] Goal Plan of Care Note [code = 21487-6] Goal Plan of Care Note [code = 92015-1] Goal Plan of Care Note [code = 81797-5] Goal Plan of Care Note [code = 81525-2] Goal Plan of Care Note [code = 23811-5] Goal Plan of Care Note [code = 75244-2] Goal Plan of Care Note [code = 91996-6] Goal Plan of Care Note [code = 43863-7] Goal Plan of Care Note [code = 83945-8] Goal Plan of Care Note [code = 09266-0] Goal Plan of Care Note [code = 91949-4] Goal Plan of Care Note [code = 55262-8] Goal Plan of Care Note [code = 65650-4] Goal Plan of Care Note [code = 45220-9] Goal Plan of Care Note [code = 51122-1] Goal Plan of Care Note [code = 88658-4] Goal Plan of Care Note [code = 10534-2] Goal Plan of Care Note [code = 03403-3] Goal Plan of Care Note [code = 02786-8] Goal Plan of Care Note [code = 16718-7] Goal Plan of Care Note [code = 63700-4] Goal Plan of Care Note [code = 10929-9] Goal Plan of Care Note [code = 73209-7] Goal Plan of Care Note [code = 33290-6] Goal Plan of Care Note [code = 12602-2] Goal Plan of Care Note [code = 59548-1] Goal Plan of Care Note [code = 46241-9] Goal Plan of Care Note [code = 09352-9] Goal Plan of Care Note [code = 36713-9] Goal Plan of Care Note [code = 77033-0] Goal Plan of Care Note [code = 02245-7] Goal Plan of Care Note [code = 98748-3] Goal Plan of Care Note [code = 59617-2] Goal Plan of Care Note [code = 96479-7] Goal Plan of Care Note [code = 21045-5] Goal Plan of Care Note [code = 42424-8] Goal Plan of Care Note [code = 62077-4] Goal Plan of Care Note [code = 25263-4] Goal Plan of Care Note [code = 14357-9] Goal Plan of Care Note [code = 44096-8] Goal Plan of Care Note [code = 05809-3] Goal Plan of Care Note [code = 20265-0] Goal Plan of Care Note [code = 74845-6] Goal Plan of Care Note [code = 69360-9] Goal Plan of Care Note [code = 58755-5] Goal Plan of Care Note [code = 93071-0] Goal Plan of Care Note [code = 71322-2] Goal Plan of Care Note [code = 67446-1] Goal Plan of Care Note [code = 45835-7] Goal Plan of Care Note [code = 23574-0] Goal Plan of Care Note [code = 81362-1] Goal Plan of Care Note [code = 78886-6] Goal Plan of Care Note [code = 76243-2] Goal Plan of Care Note [code = 12498-4] Goal Plan of Care Note [code = 15425-1] Goal Plan of Care Note [code = 42522-6] Goal Plan of Care Note [code = 83331-7] Goal Plan of Care Note [code = 95408-4] Goal Plan of Care Note [code = 74484-7] Goal Plan of Care Note [code = 43904-1] Goal Plan of Care Note [code = 79607-4] Goal Plan of Care Note [code = 32202-3] Goal Plan of Care Note [code = 37514-1] Goal Plan of Care Note [code = 58395-0] Goal Plan of Care Note [code = 89937-6] Goal Plan of Care Note [code = 95110-4] Goal Plan of Care Note [code = 12238-6] Goal Plan of Care Note [code = 98673-5] Goal Plan of Care Note [code = 88476-3] Goal Plan of Care Note [code = 10285-3] Goal Plan of Care Note [code = 67896-7] Goal Plan of Care Note [code = 70625-0] Goal Plan of Care Note [code = 82503-3] Goal Plan of Care Note [code = 87996-4] Goal Plan of Care Note [code = 10529-4] Goal Plan of Care Note [code = 02362-4] Goal Plan of Care Note [code = 35767-4] Goal Plan of Care Note [code = 68475-1] Goal Plan of Care Note [code = 51122-7] Goal Plan of Care Note [code = 94650-6] Goal Plan of Care Note [code = 35110-1] Goal Plan of Care Note [code = 51508-3] Goal Plan of Care Note [code = 75054-6] Goal Plan of Care Note [code = 13281-1] Goal Plan of Care Note [code = 42174-9] Goal Plan of Care Note [code = 62242-7] Goal Plan of Care Note [code = 27274-3] Goal Plan of Care Note [code = 12419-2] Goal Plan of Care Note [code = 41086-0] Goal Plan of Care Note [code = 31858-9] Goal Plan of Care Note [code = 42789-3] Goal Plan of Care Note [code = 44176-6] Goal Plan of Care Note [code = 50796-3] Goal Plan of Care Note [code = 32007-0] Goal Plan of Care Note [code = 92154-4] Goal Plan of Care Note [code = 09608-1] Goal Plan of Care Note [code = 34492-4] Goal Plan of Care Note [code = 24941-5] Goal Plan of Care Note [code = 16592-4] Goal Plan of Care Note [code = 86701-6] Goal Plan of Care Note [code = 88724-2] Goal Plan of Care Note [code = 77770-3] Goal Plan of Care Note [code = 86982-2] Goal Plan of Care Note [code = 57157-8] Goal Plan of Care Note [code = 39329-7] Goal Plan of Care Note [code = 71524-8] Goal Plan of Care Note [code = 55063-6] Goal Plan of Care Note [code = 54765-3] Goal Plan of Care Note [code = 07224-4] Goal Plan of Care Note [code = 95642-1] Goal Plan of Care Note [code = 33487-1] Goal Plan of Care Note [code = 85203-8] Goal Plan of Care Note [code = 27387-0] Goal Plan of Care Note [code = 60561-5] Goal Plan of Care Note [code = 49964-1] Goal Plan of Care Note [code = 22679-5] Goal Plan of Care Note [code = 23462-4] Goal Plan of Care Note [code = 88649-4] Goal Plan of Care Note [code = 11244-6] Goal Plan of Care Note [code = 26925-1] Encounters Start End Encounter Admission Attending Care Care Encounter Source Date/Time Date/Time Type Type Clinicians Facility Department ID 2021-07-17 Outpatient STLMLC STLMLC [id number] Common 11:09:09 [id number] [facility] 2022-06-28 2022-06-28 Outpatient SFA SFA [id number] Vincenzo 10:25:26 10:25:26 0107 F Gerardo 2022-06-28 2022-06-28 Outpatient [id number] r2k33b-1 00:00:00 00:00:00 Visit 03bf-4749 3bf-4749-b -m59l-69d 74e-87ac0c i5j0916t0 8799c7 2022-05-14 2022-05-14 Outpatient SFA SFA [id number] Vincenzo 16:21:44 16:21:44 1123 F Gerardo 2022-05-14 2022-05-14 Outpatient 38yy0bw0- [id number] ba7ke5-o 00:00:00 00:00:00 Visit p99c-6228 50f-4791-b -bdf0-428 df0-428aed njm4c720f 7t988m 2022-02-17 2022-02-17 Outpatient [id number]- [id number] 8f 58l934-6 00:00:00 00:00:00 Visit 295f-4f28 95f-4f28-a -e230-830 684-580464 963653kjx 628ede 2022-02-08 2022-02-08 Outpatient 94g25n53- [id number] e08x90-k 00:00:00 00:00:00 Visit o4n3-4wr5 4m9-7uz6-5 -845f-c0a 45f-c0a5b0 3l19592m1 5231e1 2022-02-06 2022-02-06 Orders Doctor ISAIAS 1.2.840.114 [id number] 00:00:00 00:00:00 Only Unassigned, HODA 350.1.13.10 ity of [place] [facility] 4.2.7.2.686 Derek as [id number] [address] 2022-01-28 2022-01-28 Outpatient [id number]- [id number] 8a 233cad-b 00:00:00 00:00:00 Visit baa2-4154 aa2-4154-9 -0sj3-73t df4-57g941 287waq9h9 afe2e5 2021-12-20 2021-12-20 Outpatient [id number]- [id number] e0 122328-k 00:00:00 00:00:00 Visit l1ns-7yah 9fe-4bbf-a -f334-447 729-1757be 5hr0w2936 0k4710 2020-06-07 2020-06-08 Outpatient nullFlavo MNA [id number] [id number] Memoria 15:15:00 05:59:59 r Neurology 09 l Georgia Gilbert 2020-06-07 2020-06-08 Outpatient nullFlavo MNA 76934 [id number] Memoria 15:15:00 05:59:59 r Neurology 09 l Georgia Gilbert 2020-06-07 2020-06-07 Outpatient [facility] [id number] 09:15:00 23:59:59 Shaoib Stevenson 2020-06-07 2020-06-07 Outpatient MHIE MHIE [id number] Memoria 09:15:00 09:15:00 09 giovanni Gilbert 2020-05-22 2020-05-22 Ambulatory nullFlavo MNA [id number] Memoria 20:45:00 20:45:00 Pre-Reg r Neurology 08 l Butler Vladimir 2020-05-22 2020-05-22 Ambulatory nullFlavo MNA [id number] Memoria 20:45:00 20:45:00 Pre-Reg r Neurology 08 l Butlerseveriano Gilbert 2020-05-22 2020-05-22 Outpatient MHIE IE [id number] Memoria 14:45:00 14:45:00 08 l Vladimir 2020-05-22 2020-05-22 [facility] 134 [id number] 14:45:00 14:45:00 Shoaib 08 Graham 2020-04-05 2020-04-06 Outpatient nullFlavo MNA [id number] [id number] Memoria 19:00:00 04:59:59 r Neurology 07 l Butlerseveriano Gilbert 2020-04-05 2020-04-06 Outpatient nullFlavo MNA [id number] Memoria 19:00:00 04:59:59 r Neurology 07 l Georgia Downeyann 2020-04-05 2020-04-05 [facility] [id number] 14:00:00 23:59:59 Shoaib 07 Graham 2020-04-05 2020-04-05 Outpatient MHIE IE [id number] Memoria 14:00:00 14:00:00 07 giovanni Gilbert 2020-02-23 2020-02-24 Outpatient nullFlavo MNA [id number] Memoria 20:15:00 04:59:59 r Neurology 06 l Butlerseveriano Gilbert 2020-02-23 2020-02-24 Outpatient nullFlavo MNA [id number] Memoria 20:15:00 04:59:59 r Neurology 06 l Butlerseveriano Gilbert 2020-02-23 2020-02-23 [facility] [id number] 15:15:00 23:59:59 Shoaib 06 Graham 2020-02-23 2020-02-23 Outpatient MHIE IE [id number] Memoria 15:15:00 15:15:00 06 [place] 2020-01-25 2020-01-25 (TEL) STLMLC STLMLC [id number] Co mmon 00:00:00 00:00:00 Spirit [facility] 2020-01-05 2020-01-06 Outpatient nullFlavo MNA [id number] [id number] Memoria 20:15:00 04:59:59 r Neurology 05 l Butlerseveriano Gilbert 2020-01-05 2020-01-06 Outpatient nullFlavo MNA [id number] Memoria 20:15:00 04:59:59 r Neurology 05 l Georgia Gilbert 2020-01-05 2020-01-05 Outpatient B[facility]RA [facility] [id number] 15:15:00 23:59:59 Shoaib 05 Graham 2020-01-05 2020-01-05 Outpatient MHIE MHIE [id number] Memoria 15:15:00 15:15:00 05 l [place] 2019-12-29 2019-12-29 Ambulatory nullFlavo MNA [id number] [id number] Memoria 20:15:00 20:15:00 Pre-Reg r Neurology 04 l Butler [place] 2019-12-29 2019-12-29 Ambulatory nullFlavo MNA [id number] [id number] Memoria 20:15:00 20:15:00 Pre-Reg r Neurology 02 l Butlerseveriano Gilbert 2019-12-29 2019-12-29 Ambulatory nullFlavo MNA [id number] Memoria 20:15:00 20:15:00 Pre-Reg r Neurology 02 l Butlerseveriano Gilbert 2019-12-29 2019-12-29 Ambulatory nullFlavo MNA [id number] [id number] Memoria 20:15:00 20:15:00 Pre-Reg r Neurology 04 l [place] 2019-12-29 2019-12-29 Outpatient MHIE MHIE [id number] Memoria 15:15:00 15:15:00 02 l [place] 2019-12-29 2019-12-29 Outpatient MHIE MHIE [id number] Memoria 15:15:00 15:15:00 04 giovanni [place] 2019-12-29 2019-12-29 Outpatient BUSHRA [facility] [place] [id number] 15:15:00 15:15:00 Shoaib 02 [place] 2019-12-29 2019-12-29 Outpatient SHIVAM [place] 046 [id number] 15:15:00 15:15:00 Shoaib 04 Graham 2019-11-23 2019-11-24 Outpatient nullFlavo MNA [id number] Memoria 18:00:00 04:59:59 r Neurology 03 l Georgia Downeyann 2019-11-23 2019-11-24 Outpatient nullFlavo MNA [id number] Memoria 18:00:00 04:59:59 r Neurology 03 l Georgia Downeyann 2019-11-23 2019-11-23 [facility] [id number] 13:00:00 23:59:59 Shoaib 03 [place] 2019-11-23 2019-11-23 Outpatient MHIE MHIE [id number] Memoria 13:00:00 13:00:00 03 giovanni Vladimir 2019-11-17 2019-11-18 Outpatient nullFlavo MNA [id number] Memoria 20:00:00 04:59:59 r Neurology 01 l Butler [place] 2019-11-17 2019-11-18 Outpatient nullFlavo MNA [id number] Memoria 20:00:00 04:59:59 r Neurology 01 l Butler Vladimir 2019-11-17 2019-11-17 [facility] [id number] 15:00:00 23:59:59 Shoaib 01 [place] 2019-11-17 2019-11-17 Outpatient MHIE MHIE [id number] Memoria 15:00:00 15:00:00 01 giovanni Vladimir 2019-10-06 2019-10-06 Ambulatory nullFlavo MNA 70911 [id number] Memoria 18:30:00 18:30:00 Pre-Reg r Neurology 00 l Butler [place] 2019-10-06 2019-10-06 Ambulatory nullFlavo MNA 68796 [id number] Memoria 18:30:00 18:30:00 Pre-Reg r Neurology 00 l Butlerseveriano Downeyann 2019-10-06 2019-10-06 [facility]patient [facility] [id number] 13:30:00 13:30:00 Shoaib 00 [place] 2019-08-11 2019-08-11 Out[facility] [id number] Common 14:00:00 14:00:00 t [facility] 2018-07-20 2018-07-20 Day [facility] [id number] Memoria 21:00:00 21:00:00 Surgery r [place] 00 l [facility] 2018-07-20 2018-07-20 [facility] [id number] Memoria 21:00:00 21:00:00 Surgery r [place] 00 l [facility] 2018-07-20 2018-07-20 Outpatient Remi [facility] [id number] 15:00:00 15:00:00 [facility] 00 Results Test Description Test Time Test Comments Results Result Comments Source LIPID PANEL 2022-06-30 04:57:04 Test Item Value Reference Range Interpretation Comme nts CHOLESTEROL (test code = 2210) 100 MG/DL <200 TRIGLYCERIDES (test code = 2232) 44 MG/DL <150 HDL CHOLESTEROL (test code = 48 MG/DL >39 2220) CALC LDL CHOL (test code = 2237) 39 MG/DL <100 NOTE: CALCULATED LDL IS BASED ON EVER-REES METHOD WHICHINCLUDES A DJUSTABLE TRIGLYCERIDE:VL DL CHOLESTEROL RATIO.THIS FACT OR VARIES BY MEASURED TRIGLY CERIDE AND NON-HDLCHOLESTE ROL CONCENTRATIONS WITH INCREASED CALCULATED LDL SEENIN HIGHER T RIGLYCERIDE OR LOWER NON-HDL S PECIMENS. FOR MOREINFORMATION , SEE CLIENT ANNOUNCEMENT AT [email or web address] RISK RATIO LDL/HDL (test code = 0.81 RATIO <3.22 UNLESS OTHERWISE INDICATED, ALL 2238) TESTING PERFORM ED ATCLINICAL PATHOLOGY [facility], [facility]. [address] [place] [address] LABORATORY DIRE CTOR: ALLEY COBURN M.D. CLIA NUMBER [id number] [place]. [id number] HEMOGLOBIN [id number] 03:34:28 Test Item Value Reference Range Interpretation Comments HEMOGLOBIN A1c (test 10.4 % 4.2-5.6 H AMERIC AN DIABETES code = 60760) ASSOCIATION IDELINES FOR HGB A1C: PREDIABETES/INC REASED [...] ALTERN ATE TESTING OR LABORATORY C ONSULTATION. CULTURE, [id number] 09:28:15SPECIMEN NUMBER: [id number] CULTURE, URINE SPECIMEN NUMBER: [id number] SPECIMEN COMMENT: URINE SOURCE:URINE REPORT STATUS: FINAL FINAL REPORT: 02/14/2022 <10,000 CFU/ML UROGENITAL HECTOR PRESENT NO COM MON PATHOGENS UNLESS OTHERWISE INDICATED, ALL TESTING PERFORMED [facility] [email or web address] [address] [place] [address] STUDENT DEVELOPMENT ADVISOR: ALLEY COBURN M.D. [place] NUMBER [id number]. [id number] CULTURE, [id number] 00:00:00 Test Item Value Reference Range Interpretation Comments CULTURE, URINE (test SPECIMEN NUMBER: code = 38913) [id number] CULTURE, [id number] 00:00:00 Test Item Value Reference Range Interpretation Comments CULTURE, URINE (test SPECIMEN NUMBER: code = 96543) [id number] CULTURE, [id number] 00:00:00 Test Item Value Reference Range Interpretation Comments CULTURE, URINE (test SPECIMEN NUMBER: code = 56259) [id number] CULTURE, [id number] 00:00:00 Test Item Value Reference Range Interpretation Comments CULTURE, URINE (test SPECIMEN NUMBER: code = 03512) [id number] CULTURE, [id number] 00:00:00 Test Item Value Reference Range Interpretation Comments CULTURE, URINE (test SPECIMEN NUMBER: code = 79998) [id number] CULTURE, [id number] 00:00:00 Test Item Value Reference Range Interpretation Comments CULTURE, URINE (test SPECIMEN NUMBER: code = 91676) [id number] CULTURE, [id number] 00:00:00 Test Item Value Reference Range Interpretation Comments CULTURE, URINE (test SPECIMEN NUMBER: code = 33374) [id number] CULTURE, [id number] 00:00:00 Test Item Value Reference Range Interpretation Comments CULTURE, URINE (test SPECIMEN NUMBER: code = 90332) [id number] VITAMIN D, 25 [id number] 05:45:34 Test Item Value Reference Range Interpretation [...] . . . . NG/ML 30-100 HEMOGLOBIN [id number] 05:43:15 Test Item Value Reference Range Interpretation Comments HEMOGLOBIN A1c (test 10.5 % 4.2-5.6 H AMERIC AN DIABETES code = 05741) ASSOCIATION IDELINES FOR HGB A1C: PREDIABETES/INC REASED [...] LABORATORY C ONSULTATION. CBC W/AUTO DIFF WITH [id number] 04:31:24 Test Item Value Reference Range Interpretation [...] message] code = 1065) WBC'S The system [employer] generated this result transmitted ref erence range: [...] 0.00-0.11 UNLESS O THERWISE (test code = 56950) INDICATE D, ALL TESTING PERFORM ED ATCLINICAL PATH OLOGY LABORATORIES, [facility]. [address] [place] [id number] [place] [address] DIRECTOR: ALLEY COBURN M.D. CLIA NUMBER [id number] CAP ACCREDITATION N O. [id number] HIV 1/2 4TH GEN, RFLX [id number] 04:04:35 Test Item Value Reference Range Interpretation Comments HIV 1/2 4TH GEN, RFLX CONF (test NON-REACTIVE NON-REACTIVE code = 3514) COMPREHENSIVE METABOLIC [id number] 03:38:50 Test Item Value Reference Range Interpretation Comments GLUCOSE (test code = 134 MG/DL 70-99 H 2216) BUN (test code = 33 MG/DL 8-23 H 2207) CREATININE (test 5.01 MG/DL 0.60-1.30 H code = 221) eGFR (2020 CKD-EPI) 9 ML/MIN/1.73 >60 L (test code = 17072) CALC BUN/CREAT (test 7 RATIO 6-28 code = 223) SODIUM (test code = 138 MEQ/L 857-763 7971) POTASSIUM (test code 4.2 MEQ/L 3.5-5.4 = 2227) CHLORIDE (test code 97 MEQ/L 95-107 = 2214) CARBON DIOXIDE (test 25 MEQ/L 19-31 code = 220) CALCIUM (test code = 9.6 MG/DL 8.5-10.5 2208) PROTEIN, TOTAL (test 7.3 G/DL 6.1-8.3 code = 2228) ALBUMIN (test code = 4.4 G/DL 3.5-5.2 2200) CALC GLOBULIN (test 2.9 G/DL 1.9-3.7 code = 2239) CALC A/G RATIO (test 1.5 RATIO 1.0-2.6 code = 223) BILIRUBIN, TOTAL 0.5 MG/DL See_Comment [Automated message] (test code = 220) The syste m which generated this result transmit niya reference range : <=1.2. The refe rence range was not u sed to interpret th is result as normal/abnormal . ALKALINE PHOSPHATASE 158 U/L 40-140 H (test code = 220) AST (test code = 22 U/L 9-40 2217) ALT (test code = 16 U/L 5-40 2218) LIPID [id number] 03:38:50 Test Item Value Reference Range Interpretation [...] , SEE CLIENT ANNOUNCE MENT AT [email or web address] [email or web address] LDL/HDL 0.73 RATIO <3.22 (test code = 2238) LIPID [id number] 00:00:00 Test Item Value Reference Range Interpretation Comments CHOLESTEROL (test code = 2210) 142 MG/DL TRIGLYCERIDES (test code = 2232) 59 MG/DL HDL CHOLESTEROL (test code = 2220) 74 MG/DL CALC LDL CHOL (test code = 2237) 54 MG/DL RISK RATIO LDL/HDL (test code = 0.73 RATIO 2238) LIPID [id number] 00:00:00 Test Item Value Reference Range Interpretation Comments CHOLESTEROL (test code = 2210) 142 MG/DL TRIGLYCERIDES (test code = 2232) 59 MG/DL HDL CHOLESTEROL (test code = 2220) 74 MG/DL CALC LDL CHOL (test code = 2237) 54 MG/DL RISK RATIO LDL/HDL (test code = 0.73 RATIO 2238) HIV AB/AG COMBO RFLX [id number] 00:00:00 Test Item Value Reference Range Interpretation Comments HIV 1/2 4TH GEN, RFLX CONF (test NON-REACTIVE code = 3514) HIV AB/AG COMBO RFLX [id number] 00:00:00 Test Item Value Reference Range Interpretation Comments HIV 1/2 4TH GEN, RFLX CONF (test NON-REACTIVE code = 3514) CBC W/AUTO [id number] 00:00:00 Test Item Value Reference Range Interpretation [...] NUCLEATED RBCS (test code = 0.00 K/UL 20101) CBC W/AUTO [id number] 00:00:00 Test Item Value Reference Range Interpretation [...] NUCLEATED RBCS (test code = 0.00 K/UL 43029) CBC W/AUTO [id number] 00:00:00 Test Item Value Reference Range Interpretation [...] NUCLEATED RBCS (test code = 0.00 K/UL 56197) VITAMIN D, 25 [id number] 00:00:00 Test Item Value Reference Range Interpretation Comments VITAMIN D, 25 OH (test code = 4958) 34 NG/ML VITAMIN D, 25 [id number] 00:00:00 Test Item Value Reference Range Interpretation Comments VITAMIN D, 25 OH (test code = 4958) 34 NG/ML HEMOGLOBIN [id number] 00:00:00 Test Item Value Reference Range Interpretation Comments HEMOGLOBIN A1c (test code = 48755) 10.5 % HEMOGLOBIN [id number] 00:00:00 Test Item Value Reference Range Interpretation Comments HEMOGLOBIN A1c (test code = 70036) 10.5 % HEMOGLOBIN [id number] 00:00:00 Test Item Value Reference Range Interpretation Comments HEMOGLOBIN A1c (test code = 90657) 10.5 % COMPREHENSIVE METABOLIC [id number] 00:00:00 Test Item Value Reference Range Interpretation Comments GLUCOSE (test code = 2217) 134 MG/DL BUN (test code = 2208) 33 MG/DL CREATININE (test code = 2214) 5.01 MG/DL eGFR (2020 CKD-EPI) (test code 9 ML/MIN/1.73 = 44007) CALC BUN/CREAT (test code = 7 RATIO [...] code = 2219) 16 U/L COMPREHENSIVE METABOLIC [id number] 00:00:00 Test Item Value Reference Range Interpretation Comments GLUCOSE (test code = 2217) 134 MG/DL BUN (test code = 2208) 33 MG/DL CREATININE (test code = 2214) 5.01 MG/DL eGFR (2020 CKD-EPI) (test code 9 ML/MIN/1.73 = 63954) CALC BUN/CREAT (test code = 7 RATIO [...] (test code = 2219) 16 U/L LIPID [id number] 00:00:00 Test Item Value Reference Range Interpretation Comments CHOLESTEROL (test code = 2210) 142 MG/DL TRIGLYCERIDES (test code = 2232) 59 MG/DL HDL CHOLESTEROL (test code = 2220) 74 MG/DL CALC LDL CHOL (test code = 2237) 54 MG/DL RISK RATIO LDL/HDL (test code = 0.73 RATIO 2238) LIPID [id number] 00:00:00 Test Item Value Reference Range Interpretation Comments CHOLESTEROL (test code = 2210) 142 MG/DL TRIGLYCERIDES (test code = 2232) 59 MG/DL HDL CHOLESTEROL (test code = 2220) 74 MG/DL CALC LDL CHOL (test code = 2237) 54 MG/DL RISK RATIO LDL/HDL (test code = 0.73 RATIO 2238) HIV AB/AG COMBO RFLX [id number] 00:00:00 Test Item Value Reference Range Interpretation Comments HIV 1/2 4TH GEN, RFLX CONF (test NON-REACTIVE code = 3514) HIV AB/AG COMBO RFLX [id number] 00:00:00 Test Item Value Reference Range Interpretation Comments HIV 1/2 4TH GEN, RFLX CONF (test NON-REACTIVE code = 3514) CBC W/AUTO [id number] 00:00:00 Test Item Value Reference Range Interpretation [...] NUCLEATED RBCS (test code = 0.00 K/UL 62920) CBC W/AUTO [id number] 00:00:00 Test Item Value Reference Range Interpretation [...] NUCLEATED RBCS (test code = 0.00 K/UL 93213) CBC W/AUTO [id number] 00:00:00 Test Item Value Reference Range Interpretation [...] NUCLEATED RBCS (test code = 0.00 K/UL 71049) VITAMIN D, 25 [id number] 00:00:00 Test Item Value Reference Range Interpretation Comments VITAMIN D, 25 OH (test code = 4958) 34 NG/ML VITAMIN D, 25 [id number] 00:00:00 Test Item Value Reference Range Interpretation Comments VITAMIN D, 25 OH (test code = 4958) 34 NG/ML HEMOGLOBIN [id number] 00:00:00 Test Item Value Reference Range Interpretation Comments HEMOGLOBIN A1c (test code = 09910) 10.5 % HEMOGLOBIN [id number] 00:00:00 Test Item Value Reference Range Interpretation Comments HEMOGLOBIN A1c (test code = 57520) 10.5 % HEMOGLOBIN [id number] 00:00:00 Test Item Value Reference Range Interpretation Comments HEMOGLOBIN A1c (test code = 88849) 10.5 % COMPREHENSIVE METABOLIC [id number] 00:00:00 Test Item Value Reference Range Interpretation Comments GLUCOSE (test code = 2217) 134 MG/DL BUN (test code = 2208) 33 MG/DL CREATININE (test code = 2214) 5.01 MG/DL eGFR (2020 CKD-EPI) (test code 9 ML/MIN/1.73 = 93091) CALC BUN/CREAT (test code = 7 RATIO [...] code = 2219) 16 U/L COMPREHENSIVE METABOLIC [id number] 00:00:00 Test Item Value Reference Range Interpretation Comments GLUCOSE (test code = 2217) 134 MG/DL BUN (test code = 2208) 33 MG/DL CREATININE (test code = 2214) 5.01 MG/DL eGFR (2020 CKD-EPI) (test code 9 ML/MIN/1.73 = 13723) CALC BUN/CREAT (test code = 7 RATIO 223) SODIUM (test code = 2231) 138 MEQ/L [...] (test code = 2219) 16 U/L LIPID [id number] 00:00:00 Test Item Value Reference Range Interpretation Comments CHOLESTEROL (test code = 2210) 142 MG/DL TRIGLYCERIDES (test code = 2232) 59 MG/DL HDL CHOLESTEROL (test code = 2220) 74 MG/DL CALC LDL CHOL (test code = 2237) 54 MG/DL RISK RATIO LDL/HDL (test code = 0.73 RATIO 2238) LIPID [id number] 00:00:00 Test Item Value Reference Range Interpretation Comments CHOLESTEROL (test code = 2210) 142 MG/DL TRIGLYCERIDES (test code = 2232) 59 MG/DL HDL CHOLESTEROL (test code = 2220) 74 MG/DL CALC LDL CHOL (test code = 2237) 54 MG/DL RISK RATIO LDL/HDL (test code = 0.73 RATIO 2238) HIV AB/AG COMBO RFLX [id number] 00:00:00 Test Item Value Reference Range Interpretation Comments HIV 1/2 4TH GEN, RFLX CONF (test NON-REACTIVE code = 3514) HIV AB/AG COMBO RFLX [id number] 00:00:00 Test Item Value Reference Range Interpretation Comments HIV 1/2 4TH GEN, RFLX CONF (test NON-REACTIVE code = 3514) CBC W/AUTO [id number] 00:00:00 Test Item Value Reference Range Interpretation [...] NUCLEATED RBCS (test code = 0.00 K/UL 89682) CBC W/AUTO [id number] 00:00:00 Test Item Value Reference Range Interpretation [...] NUCLEATED RBCS (test code = 0.00 K/UL 27616) CBC W/AUTO [id number] 00:00:00 Test Item Value Reference Range Interpretation [...] NUCLEATED RBCS (test code = 0.00 K/UL 27321) VITAMIN D, 25 [id number] 00:00:00 Test Item Value Reference Range Interpretation Comments VITAMIN D, 25 OH (test code = 4958) 34 NG/ML VITAMIN D, 25 [id number] 00:00:00 Test Item Value Reference Range Interpretation Comments VITAMIN D, 25 OH (test code = 4958) 34 NG/ML HEMOGLOBIN [id number] 00:00:00 Test Item Value Reference Range Interpretation Comments HEMOGLOBIN A1c (test code = 23615) 10.5 % HEMOGLOBIN [id number] 00:00:00 Test Item Value Reference Range Interpretation Comments HEMOGLOBIN A1c (test code = 41680) 10.5 % HEMOGLOBIN [id number] 00:00:00 Test Item Value Reference Range Interpretation Comments HEMOGLOBIN A1c (test code = 78872) 10.5 % COMPREHENSIVE METABOLIC [id number] 00:00:00 Test Item Value Reference Range Interpretation Comments GLUCOSE (test code = 2217) 134 MG/DL BUN (test code = 2208) 33 MG/DL CREATININE (test code = 2214) 5.01 MG/DL eGFR (2020 CKD-EPI) (test code 9 ML/MIN/1.73 = 90992) CALC BUN/CREAT (test code = 7 RATIO [...] code = 2219) 16 U/L COMPREHENSIVE METABOLIC [id number] 00:00:00 Test Item Value Reference Range Interpretation Comments GLUCOSE (test code = 2217) 134 MG/DL BUN (test code = 2208) 33 MG/DL CREATININE (test code = 2214) 5.01 MG/DL eGFR (2020 CKD-EPI) (test code 9 ML/MIN/1.73 = 25837) CALC BUN/CREAT (test code = 7 RATIO [...] (test code = 2219) 16 U/L LIPID [id number] 00:00:00 Test Item Value Reference Range Interpretation Comments CHOLESTEROL (test code = 2210) 142 MG/DL TRIGLYCERIDES (test code = 2232) 59 MG/DL HDL CHOLESTEROL (test code = 2220) 74 MG/DL CALC LDL CHOL (test code = 2237) 54 MG/DL RISK RATIO LDL/HDL (test code = 0.73 RATIO 2238) LIPID [id number] 00:00:00 Test Item Value Reference Range Interpretation Comments CHOLESTEROL (test code = 2210) 142 MG/DL TRIGLYCERIDES (test code = 2232) 59 MG/DL HDL CHOLESTEROL (test code = 2220) 74 MG/DL CALC LDL CHOL (test code = 2237) 54 MG/DL RISK RATIO LDL/HDL (test code = 0.73 RATIO 2238) HIV AB/AG COMBO RFLX [id number] 00:00:00 Test Item Value Reference Range Interpretation Comments HIV 1/2 4TH GEN, RFLX CONF (test NON-REACTIVE code = 3514) HIV AB/AG COMBO RFLX [id number] 00:00:00 Test Item Value Reference Range Interpretation Comments HIV 1/2 4TH GEN, RFLX CONF (test NON-REACTIVE code = 3514) CBC W/AUTO [id number] 00:00:00 Test Item Value Reference Range Interpretation [...] NUCLEATED RBCS (test code = 0.00 K/UL 95803) CBC W/AUTO [id number] 00:00:00 Test Item Value Reference Range Interpretation [...] NUCLEATED RBCS (test code = 0.00 K/UL 17238) CBC W/AUTO [id number] 00:00:00 Test Item Value Reference Range Interpretation [...] NUCLEATED RBCS (test code = 0.00 K/UL 43722) VITAMIN D, 25 [id number] 00:00:00 Test Item Value Reference Range Interpretation Comments VITAMIN D, 25 OH (test code = 4958) 34 NG/ML HEMOGLOBIN [id number] 00:00:00 Test Item Value Reference Range Interpretation Comments HEMOGLOBIN A1c (test code = 32408) 10.5 % VITAMIN D, 25 [id number] 00:00:00 Test Item Value Reference Range Interpretation Comments VITAMIN D, 25 OH (test code = 4958) 34 NG/ML VITAMIN D, 25 [id number] 00:00:00 Test Item Value Reference Range Interpretation Comments VITAMIN D, 25 OH (test code = 4958) 34 NG/ML HEMOGLOBIN [id number] 00:00:00 Test Item Value Reference Range Interpretation Comments HEMOGLOBIN A1c (test code = 14430) 10.5 % HEMOGLOBIN [id number] 00:00:00 Test Item Value Reference Range Interpretation Comments HEMOGLOBIN A1c (test code = 58842) 10.5 % HEMOGLOBIN [id number] 00:00:00 Test Item Value Reference Range Interpretation Comments HEMOGLOBIN A1c (test code = 19849) 10.5 % COMPREHENSIVE METABOLIC [id number] 00:00:00 Test Item Value Reference Range Interpretation Comments GLUCOSE (test code = 2217) 134 MG/DL BUN (test code = 2208) 33 MG/DL CREATININE (test code = 2214) 5.01 MG/DL eGFR (2020 CKD-EPI) (test code 9 ML/MIN/1.73 = 97951) CALC BUN/CREAT (test code = 7 RATIO [...] A/G RATIO (test code = 1.5 RATIO 4) BILIRUBIN, TOTAL (test code = 0.5 MG/DL 2206) ALKALINE PHOSPHATASE (test code 158 U/L = 4) AST (test code = 2218) 22 U/L ALT (test code = 2219) 16 U/L COMPREHENSIVE METABOLIC [id number] 00:00:00 Test Item Value Reference Range Interpretation Comments GLUCOSE (test code = 2217) 134 MG/DL BUN (test code = 2208) 33 MG/DL CREATININE (test code = 2214) 5.01 MG/DL eGFR (2020 CKD-EPI) (test code 9 ML/MIN/1.73 = 13619) CALC BUN/CREAT (test code = 7 RATIO [...] A/G RATIO (test code = 1.5 RATIO 4) BILIRUBIN, TOTAL (test code = 0.5 MG/DL 2206) ALKALINE PHOSPHATASE (test code 158 U/L = 2204) AST (test code = 2218) 22 U/L ALT (test code = 2219) 16 U/L LIPID [id number] 00:00:00 Test Item Value Reference Range Interpretation Comments CHOLESTEROL (test code = 2210) 142 MG/DL TRIGLYCERIDES (test code = 2232) 59 MG/DL HDL CHOLESTEROL (test code = 2220) 74 MG/DL CALC LDL CHOL (test code = 2237) 54 MG/DL RISK RATIO LDL/HDL (test code = 0.73 RATIO 2238) LIPID [id number] 00:00:00 Test Item Value Reference Range Interpretation Comments CHOLESTEROL (test code = 2210) 142 MG/DL TRIGLYCERIDES (test code = 2232) 59 MG/DL HDL CHOLESTEROL (test code = 2220) 74 MG/DL CALC LDL CHOL (test code = 2237) 54 MG/DL RISK RATIO LDL/HDL (test code = 0.73 RATIO 2238) HIV AB/AG COMBO RFLX [id number] 00:00:00 Test Item Value Reference Range Interpretation Comments HIV 1/2 4TH GEN, RFLX CONF (test NON-REACTIVE code = 3514) HEMOGLOBIN [id number] 00:00:00 Test Item Value Reference Range Interpretation Comments HEMOGLOBIN A1c (test code = 44920) 10.5 % HIV AB/AG COMBO RFLX [id number] 00:00:00 Test Item Value Reference Range Interpretation Comments HIV 1/2 4TH GEN, RFLX CONF (test NON-REACTIVE code = 3514) CBC W/AUTO [id number] 00:00:00 Test Item Value Reference Range Interpretation [...] NUCLEATED RBCS (test code = 0.00 K/UL 86180) CBC W/AUTO [id number] 00:00:00 Test Item Value Reference Range Interpretation [...] NUCLEATED RBCS (test code = 0.00 K/UL 67445) CBC W/AUTO [id number] 00:00:00 Test Item Value Reference Range Interpretation [...] NUCLEATED RBCS (test code = 0.00 K/UL 13529) COMPREHENSIVE METABOLIC [id number] 00:00:00 Test Item Value Reference Range Interpretation Comments GLUCOSE (test code = 2217) 134 MG/DL BUN (test code = 2208) 33 MG/DL CREATININE (test code = 2214) 5.01 MG/DL eGFR (2020 CKD-EPI) (test code 9 ML/MIN/1.73 = 20729) CALC BUN/CREAT (test code = 7 RATIO 2235) SODIUM (test code = 2231) 138 MEQ/L POTASSIUM (test code = 2228) 4.2 MEQ/L CHLORIDE (test code = 2215) 97 MEQ/L CARBON DIOXIDE (test code = 25 MEQ/L 2205) CALCIUM (test code = 2209) 9.6 MG/DL PROTEIN, TOTAL (test code = 7.3 G/DL 2228) ALBUMIN (test code = 220) 4.4 G/DL CALC GLOBULIN (test code = 2.9 G/DL 2239) CALC A/G RATIO (test code = 1.5 RATIO 2233) BILIRUBIN, TOTAL (test code = 0.5 MG/DL 2206) ALKALINE PHOSPHATASE (test code 158 U/L = 2203) AST (test code = 2218) 22 U/L ALT (test code = 2219) 16 U/L LIPID [id number] 00:00:00 Test Item Value Reference Range Interpretation Comments CHOLESTEROL (test code = 2210) 142 MG/DL TRIGLYCERIDES (test code = 2232) 59 MG/DL HDL CHOLESTEROL (test code = 2220) 74 MG/DL CALC LDL CHOL (test code = 2237) 54 MG/DL RISK RATIO LDL/HDL (test code = 0.73 RATIO 8) HIV AB/AG COMBO RFLX [id number] 00:00:00 Test Item Value Reference Range Interpretation Comments HIV 1/2 4TH GEN, RFLX CONF (test NON-REACTIVE code = 3514) CBC W/AUTO [id number] 00:00:00 Test Item Value Reference Range Interpretation [...] NUCLEATED RBCS (test code = 0.00 K/UL 14334) CBC W/AUTO [id number] 00:00:00 Test Item Value Reference Range Interpretation [...] NUCLEATED RBCS (test code = 0.00 K/UL 71673) VITAMIN D, 25 [id number] 00:00:00 Test Item Value Reference Range Interpretation Comments VITAMIN D, 25 OH (test code = 4958) 34 NG/ML VITAMIN D, 25 [id number] 00:00:00 Test Item Value Reference Range Interpretation Comments VITAMIN D, 25 OH (test code = 4958) 34 NG/ML HEMOGLOBIN [id number] 00:00:00 Test Item Value Reference Range Interpretation Comments HEMOGLOBIN A1c (test code = 84976) 10.5 % HEMOGLOBIN [id number] 00:00:00 Test Item Value Reference Range Interpretation Comments HEMOGLOBIN A1c (test code = 41913) 10.5 % HEMOGLOBIN [id number] 00:00:00 Test Item Value Reference Range Interpretation Comments HEMOGLOBIN A1c (test code = 73350) 10.5 % COMPREHENSIVE METABOLIC [id number] 00:00:00 Test Item Value Reference Range Interpretation Comments GLUCOSE (test code = 2217) 134 MG/DL BUN (test code = 2208) 33 MG/DL CREATININE (test code = 2214) 5.01 MG/DL eGFR (2020 CKD-EPI) (test code 9 ML/MIN/1.73 = 98105) CALC BUN/CREAT (test code = 7 RATIO [...] CALC GLOBULIN (test code = 2.9 G/DL 0) CALC A/G RATIO (test code = 1.5 RATIO 2234) BILIRUBIN, TOTAL (test code = 0.5 MG/DL 2206) ALKALINE PHOSPHATASE (test code 158 U/L = 2204) AST (test code = 2218) 22 U/L ALT (test code = 2219) 16 U/L COMPREHENSIVE METABOLIC [id number] 00:00:00 Test Item Value Reference Range Interpretation Comments GLUCOSE (test code = 2217) 134 MG/DL BUN (test code = 2208) 33 MG/DL CREATININE (test code = 2214) 5.01 MG/DL eGFR (2020 CKD-EPI) (test code 9 ML/MIN/1.73 = 79491) CALC BUN/CREAT (test code = 7 RATIO 2235) SODIUM (test code = 2231) 138 MEQ/L POTASSIUM (test code = 2228) 4.2 MEQ/L CHLORIDE (test code = 2215) 97 MEQ/L CARBON DIOXIDE (test code = 25 MEQ/L 2205) CALCIUM (test code = 2209) 9.6 MG/DL PROTEIN, TOTAL (test code = 7.3 G/DL 2228) ALBUMIN (test code = 220) 4.4 G/DL CALC GLOBULIN (test code = 2.9 G/DL 2239) CALC A/G RATIO (test code = 1.5 RATIO 2233) BILIRUBIN, TOTAL (test code = 0.5 MG/DL 2206) ALKALINE PHOSPHATASE (test code 158 U/L = 2203) AST (test code = 2218) 22 U/L ALT (test code = 2219) 16 U/L SCR MAMM BILATERAL DAVIS CAD [id number] 13:49:46 Name: Margarita : 1960 Sex: F - SCR MAMM BILATERAL DAVIS CAD DIGITALBILATERAL DIGITAL SCREENING MAMMOGRAM 3D/2D WITH CAD: 11/16/2020LINICAL: Asymptomatic. Digital breasttomosynthesis was performed in addition to routine CC and MLO views. Current mammographic images were evaluated by [employer] CAD (computer-aided detection) software. Comparison is made to exam dated 04/21/2018 mammogram - [facility]. There are scattered fibroglandular tissues in both breasts. There are benign vascular calcifications in both breasts. No suspicious mass, architectural distortion, malignant type calcification, or lymph node abnormality detected. Breast dl ecture is stable compared to prior exams.IMPRESSION: BENIGNThere is no mammographic evidence of malignancy. Resume annual screening mammography in one year. Fish Alejandro M.D. ss/penrad:11/28/2020 13:49:46 Saxophone Teacher: Becka Reed MM, [facility]: BIRADS 1-2 Normal Mammogram BI-RADS: 2 BenignHEMOGLOBIN [id number] 00:00:00 Test Item Value Reference Range Interpretation Comments HEMOGLOBIN A1c (test code = 92492) 8.6 % HEMOGLOBIN [id number] 00:00:00 Test Item Value Reference Range Interpretation Comments HEMOGLOBIN A1c (test code = 41020) 8.6 % HEMOGLOBIN [id number] 00:00:00 Test Item Value Reference Range Interpretation Comments HEMOGLOBIN A1c (test code = 63837) 8.6 % HEMOGLOBIN [id number] 00:00:00 Test Item Value Reference Range Interpretation Comments HEMOGLOBIN A1c (test code = 64429) 8.6 % HEMOGLOBIN [id number] 00:00:00 Test Item Value Reference Range Interpretation Comments HEMOGLOBIN A1c (test code = 42574) 8.6 % HEMOGLOBIN [id number] 00:00:00 Test Item Value Reference Range Interpretation Comments HEMOGLOBIN A1c (test code = 22281) 8.6 % HEMOGLOBIN [id number] 00:00:00 Test Item Value Reference Range Interpretation Comments HEMOGLOBIN A1c (test code = 98042) 8.6 % HEMOGLOBIN [id number] 00:00:00 Test Item Value Reference Range Interpretation Comments HEMOGLOBIN A1c (test code = 27730) 8.6 % HEMOGLOBIN [id number] 00:00:00 Test Item Value Reference Range Interpretation Comments HEMOGLOBIN A1c (test code = 93645) 8.6 % HEMOGLOBIN [id number] 00:00:00 Test Item Value Reference Range Interpretation Comments HEMOGLOBIN A1c (test code = 77225) 8.6 % HEMOGLOBIN [id number] 00:00:00 Test Item Value Reference Range Interpretation Comments HEMOGLOBIN A1c (test code = 67760) 8.6 % HEMOGLOBIN [id number] 00:00:00 Test Item Value Reference Range Interpretation Comments HEMOGLOBIN A1c (test code = 99802) 8.6 % HEMOGLOBIN [id number] 00:00:00 Test Item Value Reference Range Interpretation Comments HEMOGLOBIN A1c (test code = 17021) 8.6 % HEMOGLOBIN [id number] 00:00:00 Test Item Value Reference Range Interpretation Comments HEMOGLOBIN A1c (test code = 64609) 8.6 % HEMOGLOBIN [id number] 00:00:00 Test Item Value Reference Range Interpretation Comments HEMOGLOBIN A1c (test code = 65254) 8.6 % HEMOGLOBIN [id number] 00:00:00 Test Item Value Reference Range Interpretation Comments HEMOGLOBIN A1c (test code = 22758) 8.6 % HEMOGLOBIN [id number] 00:00:00 Test Item Value Reference Range Interpretation Comments HEMOGLOBIN A1c (test code = 03838) 8.6 % COMPREHENSIVE METABOLIC [id number] 00:00:00 Test Item Value Reference Range Interpretation Comments GLUCOSE (test code = 2217) 300 MG/DL BUN (test code = 2208) 19 MG/DL CREATININE (test code = 2214) 4.15 MG/DL eGFR AMER. (test code 13 ML/MIN/1.73 = 33012) eGFR NON- AMER. (test 11 ML/MIN/1.73 code = 25315) CALC BUN/CREAT (test code = 5 RATIO [...] code = 2219) 13 U/L COMPREHENSIVE METABOLIC [id number] 00:00:00 Test Item Value Reference Range Interpretation Comments GLUCOSE (test code = 2217) 300 MG/DL BUN (test code = 2208) 19 MG/DL CREATININE (test code = 2214) 4.15 MG/DL eGFR AMER. (test code 13 ML/MIN/1.73 = 10639) eGFR NON- AMER. (test 11 ML/MIN/1.73 code = 67303) CALC BUN/CREAT (test code = 5 RATIO [...] ALT (test code = 2219) 13 U/L [id number] 00:00:00 Test Item Value Reference Range Interpretation Comments TSH, THIRD GENERATION (test code 0.661 UIU/ML = 2821) [id number] 00:00:00 Test Item Value Reference Range Interpretation Comments TSH, THIRD GENERATION (test code 0.661 UIU/ML = 2821) [id number] 00:00:00 Test Item Value Reference Range Interpretation Comments TSH, THIRD GENERATION (test code 0.661 UIU/ML = 2821) CBC W/AUTO [id number] 00:00:00 Test Item Value Reference Range Interpretation [...] code = 1015) 166 K/UL CBC W/AUTO [id number] 00:00:00 Test Item Value Reference Range Interpretation [...] code = 1015) 166 K/UL CBC W/AUTO [id number] 00:00:00 Test Item Value Reference Range Interpretation [...] (test code = 1015) 166 K/UL HEMOGLOBIN [id number] 00:00:00 Test Item Value Reference Range Interpretation Comments HEMOGLOBIN A1c (test code = 73749) 8.5 % HEMOGLOBIN [id number] 00:00:00 Test Item Value Reference Range Interpretation Comments HEMOGLOBIN A1c (test code = 88411) 8.5 % HEMOGLOBIN [id number] 00:00:00 Test Item Value Reference Range Interpretation Comments HEMOGLOBIN A1c (test code = 00085) 8.5 % LIPID [id number] 00:00:00 Test Item Value Reference Range Interpretation Comments CHOLESTEROL (test code = 2210) 186 MG/DL TRIGLYCERIDES (test code = 2232) 88 MG/DL HDL CHOLESTEROL (test code = 2220) 80 MG/DL CALC LDL CHOL (test code = 2237) 88 MG/DL RISK RATIO LDL/HDL (test code = 1.10 RATIO 2238) LIPID [id number] 00:00:00 Test Item Value Reference Range Interpretation Comments CHOLESTEROL (test code = 2210) 186 MG/DL TRIGLYCERIDES (test code = 2232) 88 MG/DL HDL CHOLESTEROL (test code = 2220) 80 MG/DL CALC LDL CHOL (test code = 2237) 88 MG/DL RISK RATIO LDL/HDL (test code = 1.10 RATIO 2238) COMPREHENSIVE METABOLIC [id number] 00:00:00 Test Item Value Reference Range Interpretation Comments GLUCOSE (test code = 2217) 300 MG/DL BUN (test code = 2208) 19 MG/DL CREATININE (test code = 2214) 4.15 MG/DL eGFR AMER. (test code 13 ML/MIN/1.73 = 56651) eGFR NON- AMER. (test 11 ML/MIN/1.73 code = 21119) CALC BUN/CREAT (test code = 5 RATIO [...] code = 2219) 13 U/L COMPREHENSIVE METABOLIC [id number] 00:00:00 Test Item Value Reference Range Interpretation Comments GLUCOSE (test code = 2217) 300 MG/DL BUN (test code = 2208) 19 MG/DL CREATININE (test code = 2214) 4.15 MG/DL eGFR AMER. (test code 13 ML/MIN/1.73 = 63638) eGFR NON- AMER. (test 11 ML/MIN/1.73 code = 11576) CALC BUN/CREAT (test code = 5 RATIO 2235) SODIUM (test code = 2231) 136 MEQ/L POTASSIUM (test code = 2228) 4.0 MEQ/L CHLORIDE (test code = 2215) 97 MEQ/L CARBON DIOXIDE (test code = 28 MEQ/L 6) CALCIUM (test code = 2209) 9.4 MG/DL PROTEIN, TOTAL (test code = 7.3 G/DL 2229) ALBUMIN (test code = 2201) 4.2 G/DL CALC GLOBULIN (test code = 3.1 G/DL 2240) CALC A/G RATIO (test code = 1.4 RATIO 2234) BILIRUBIN, TOTAL (test code = 0.4 MG/DL 220) ALKALINE PHOSPHATASE (test 153 U/L code = 2204) AST (test code = 2218) 21 U/L ALT (test code = 2219) 13 U/L [id number] 00:00:00 Test Item Value Reference Range Interpretation Comments TSH, THIRD GENERATION (test code 0.661 UIU/ML = 2821) [id number] 00:00:00 Test Item Value Reference Range Interpretation Comments TSH, THIRD GENERATION (test code 0.661 UIU/ML = 2821) [id number] 00:00:00 Test Item Value Reference Range Interpretation Comments TSH, THIRD GENERATION (test code 0.661 UIU/ML = 2821) CBC W/AUTO [id number] 00:00:00 Test Item Value Reference Range Interpretation [...] code = 1015) 166 K/UL CBC W/AUTO [id number] 00:00:00 Test Item Value Reference Range Interpretation [...] code = 1015) 166 K/UL CBC W/AUTO [id number] 00:00:00 Test Item Value Reference Range Interpretation [...] (test code = 1015) 166 K/UL HEMOGLOBIN [id number] 00:00:00 Test Item Value Reference Range Interpretation Comments HEMOGLOBIN A1c (test code = 44645) 8.5 % HEMOGLOBIN [id number] 00:00:00 Test Item Value Reference Range Interpretation Comments HEMOGLOBIN A1c (test code = 29523) 8.5 % HEMOGLOBIN [id number] 00:00:00 Test Item Value Reference Range Interpretation Comments HEMOGLOBIN A1c (test code = 11214) 8.5 % LIPID [id number] 00:00:00 Test Item Value Reference Range Interpretation Comments CHOLESTEROL (test code = 2210) 186 MG/DL TRIGLYCERIDES (test code = 2232) 88 MG/DL HDL CHOLESTEROL (test code = 2220) 80 MG/DL CALC LDL CHOL (test code = 2237) 88 MG/DL RISK RATIO LDL/HDL (test code = 1.10 RATIO 2238) LIPID [id number] 00:00:00 Test Item Value Reference Range Interpretation Comments CHOLESTEROL (test code = 2210) 186 MG/DL TRIGLYCERIDES (test code = 2232) 88 MG/DL HDL CHOLESTEROL (test code = 2220) 80 MG/DL CALC LDL CHOL (test code = 2237) 88 MG/DL RISK RATIO LDL/HDL (test code = 1.10 RATIO 2238) COMPREHENSIVE METABOLIC [id number] 00:00:00 Test Item Value Reference Range Interpretation Comments GLUCOSE (test code = 2217) 300 MG/DL BUN (test code = 2208) 19 MG/DL CREATININE (test code = 2214) 4.15 MG/DL eGFR AMER. (test code 13 ML/MIN/1.73 = 31076) eGFR NON- AMER. (test 11 ML/MIN/1.73 code = 84649) CALC BUN/CREAT (test code = 5 RATIO [...] code = 2219) 13 U/L COMPREHENSIVE METABOLIC [id number] 00:00:00 Test Item Value Reference Range Interpretation Comments GLUCOSE (test code = 2217) 300 MG/DL BUN (test code = 2208) 19 MG/DL CREATININE (test code = 2214) 4.15 MG/DL eGFR AMER. (test code 13 ML/MIN/1.73 = 63737) eGFR NON- AMER. (test 11 ML/MIN/1.73 code = 89065) CALC BUN/CREAT (test code = 5 RATIO [...] ALT (test code = 2219) 13 U/L [id number] 00:00:00 Test Item Value Reference Range Interpretation Comments TSH, THIRD GENERATION (test code 0.661 UIU/ML = 2821) [id number] 00:00:00 Test Item Value Reference Range Interpretation Comments TSH, THIRD GENERATION (test code 0.661 UIU/ML = 2821) [id number] 00:00:00 Test Item Value Reference Range Interpretation Comments TSH, THIRD GENERATION (test code 0.661 UIU/ML = 2821) CBC W/AUTO [id number] 00:00:00 Test Item Value Reference Range Interpretation [...] code = 1015) 166 K/UL CBC W/AUTO [id number] 00:00:00 Test Item Value Reference Range Interpretation [...] code = 1015) 166 K/UL CBC W/AUTO [id number] 00:00:00 Test Item Value Reference Range Interpretation [...] (test code = 1015) 166 K/UL HEMOGLOBIN [id number] 00:00:00 Test Item Value Reference Range Interpretation Comments HEMOGLOBIN A1c (test code = 45262) 8.5 % HEMOGLOBIN [id number] 00:00:00 Test Item Value Reference Range Interpretation Comments HEMOGLOBIN A1c (test code = 91023) 8.5 % HEMOGLOBIN [id number] 00:00:00 Test Item Value Reference Range Interpretation Comments HEMOGLOBIN A1c (test code = 78076) 8.5 % LIPID [id number] 00:00:00 Test Item Value Reference Range Interpretation Comments CHOLESTEROL (test code = 2210) 186 MG/DL TRIGLYCERIDES (test code = 2232) 88 MG/DL HDL CHOLESTEROL (test code = 2220) 80 MG/DL CALC LDL CHOL (test code = 2237) 88 MG/DL RISK RATIO LDL/HDL (test code = 1.10 RATIO 2238) LIPID [id number] 00:00:00 Test Item Value Reference Range Interpretation Comments CHOLESTEROL (test code = 2210) 186 MG/DL TRIGLYCERIDES (test code = 2232) 88 MG/DL HDL CHOLESTEROL (test code = 2220) 80 MG/DL CALC LDL CHOL (test code = 2237) 88 MG/DL RISK RATIO LDL/HDL (test code = 1.10 RATIO 2238) COMPREHENSIVE METABOLIC [id number] 00:00:00 Test Item Value Reference Range Interpretation Comments GLUCOSE (test code = 2217) 300 MG/DL BUN (test code = 2208) 19 MG/DL CREATININE (test code = 2214) 4.15 MG/DL eGFR AMER. (test code 13 ML/MIN/1.73 = 83149) eGFR NON- AMER. (test 11 ML/MIN/1.73 code = 44890) CALC BUN/CREAT (test code = 5 RATIO [...] code = 2219) 13 U/L COMPREHENSIVE METABOLIC [id number] 00:00:00 Test Item Value Reference Range Interpretation Comments GLUCOSE (test code = 2217) 300 MG/DL BUN (test code = 2208) 19 MG/DL CREATININE (test code = 2214) 4.15 MG/DL eGFR AMER. (test code 13 ML/MIN/1.73 = 28489) eGFR NON- AMER. (test 11 ML/MIN/1.73 code = 32062) CALC BUN/CREAT (test code = 5 RATIO [...] ALT (test code = 2219) 13 U/L [id number] 00:00:00 Test Item Value Reference Range Interpretation Comments TSH, THIRD GENERATION (test code 0.661 UIU/ML = 2821) [id number] 00:00:00 Test Item Value Reference Range Interpretation Comments TSH, THIRD GENERATION (test code 0.661 UIU/ML = 2821) [id number] 00:00:00 Test Item Value Reference Range Interpretation Comments TSH, THIRD GENERATION (test code 0.661 UIU/ML = 2821) CBC W/AUTO [id number] 00:00:00 Test Item Value Reference Range Interpretation [...] code = 1015) 166 K/UL CBC W/AUTO [id number] 00:00:00 Test Item Value Reference Range Interpretation [...] (test code = 1015) 166 K/UL HEMOGLOBIN [id number] 00:00:00 Test Item Value Reference Range Interpretation Comments HEMOGLOBIN A1c (test code = 51699) 8.5 % CBC W/AUTO [id number] 00:00:00 Test Item Value Reference Range Interpretation [...] code = 1015) 166 K/UL CBC W/AUTO [id number] 00:00:00 Test Item Value Reference Range Interpretation [...] code = 1015) 166 K/UL CBC W/AUTO [id number] 00:00:00 Test Item Value Reference Range Interpretation [...] (test code = 1015) 166 K/UL HEMOGLOBIN [id number] 00:00:00 Test Item Value Reference Range Interpretation Comments HEMOGLOBIN A1c (test code = 49281) 8.5 % HEMOGLOBIN [id number] 00:00:00 Test Item Value Reference Range Interpretation Comments HEMOGLOBIN A1c (test code = 89998) 8.5 % HEMOGLOBIN [id number] 00:00:00 Test Item Value Reference Range Interpretation Comments HEMOGLOBIN A1c (test code = 10320) 8.5 % LIPID [id number] 00:00:00 Test Item Value Reference Range Interpretation Comments CHOLESTEROL (test code = 2210) 186 MG/DL TRIGLYCERIDES (test code = 2232) 88 MG/DL HDL CHOLESTEROL (test code = 2220) 80 MG/DL CALC LDL CHOL (test code = 2237) 88 MG/DL RISK RATIO LDL/HDL (test code = 1.10 RATIO 2238) LIPID [id number] 00:00:00 Test Item Value Reference Range Interpretation Comments CHOLESTEROL (test code = 2210) 186 MG/DL TRIGLYCERIDES (test code = 2232) 88 MG/DL HDL CHOLESTEROL (test code = 2220) 80 MG/DL CALC LDL CHOL (test code = 2237) 88 MG/DL RISK RATIO LDL/HDL (test code = 1.10 RATIO 2238) HEMOGLOBIN [id number] 00:00:00 Test Item Value Reference Range Interpretation Comments HEMOGLOBIN A1c (test code = 18712) 8.5 % COMPREHENSIVE METABOLIC [id number] 00:00:00 Test Item Value Reference Range Interpretation Comments GLUCOSE (test code = 2217) 300 MG/DL BUN (test code = 2208) 19 MG/DL CREATININE (test code = 2214) 4.15 MG/DL eGFR AMER. (test code 13 ML/MIN/1.73 = 11029) eGFR NON- AMER. (test 11 ML/MIN/1.73 code = 51182) CALC BUN/CREAT (test code = 5 RATIO [...] code = 2219) 13 U/L COMPREHENSIVE METABOLIC [id number] 00:00:00 Test Item Value Reference Range Interpretation Comments GLUCOSE (test code = 2217) 300 MG/DL BUN (test code = 2208) 19 MG/DL CREATININE (test code = 2214) 4.15 MG/DL eGFR AMER. (test code 13 ML/MIN/1.73 = 60066) eGFR NON- AMER. (test 11 ML/MIN/1.73 code = 20083) CALC BUN/CREAT (test code = 5 RATIO [...] ALT (test code = 2219) 13 U/L [id number] 00:00:00 Test Item Value Reference Range Interpretation Comments TSH, THIRD GENERATION (test code 0.661 UIU/ML = 2821) [id number] 00:00:00 Test Item Value Reference Range Interpretation Comments TSH, THIRD GENERATION (test code 0.661 UIU/ML = 2821) [id number] 00:00:00 Test Item Value Reference Range Interpretation Comments TSH, THIRD GENERATION (test code 0.661 UIU/ML = 2821) LIPID [id number] 00:00:00 Test Item Value Reference Range Interpretation Comments CHOLESTEROL (test code = 2210) 186 MG/DL TRIGLYCERIDES (test code = 2232) 88 MG/DL HDL CHOLESTEROL (test code = 2220) 80 MG/DL CALC LDL CHOL (test code = 2237) 88 MG/DL RISK RATIO LDL/HDL (test code = 1.10 RATIO 2238) COMPREHENSIVE METABOLIC [id number] 00:00:00 Test Item Value Reference Range Interpretation Comments GLUCOSE (test code = 2217) 300 MG/DL BUN (test code = 2208) 19 MG/DL CREATININE (test code = 2214) 4.15 MG/DL eGFR AMER. (test code 13 ML/MIN/1.73 = 42389) eGFR NON- AMER. (test 11 ML/MIN/1.73 code = 99944) CALC BUN/CREAT (test code = 5 RATIO [...] ALT (test code = 2219) 13 U/L [id number] 00:00:00 Test Item Value Reference Range Interpretation Comments TSH, THIRD GENERATION (test code 0.661 UIU/ML = 2821) [id number] 00:00:00 Test Item Value Reference Range Interpretation Comments TSH, THIRD GENERATION (test code 0.661 UIU/ML = 2821) CBC W/AUTO [id number] 00:00:00 Test Item Value Reference Range Interpretation [...] code = 1015) 166 K/UL CBC W/AUTO [id number] 00:00:00 Test Item Value Reference Range Interpretation [...] code = 1015) 166 K/UL CBC W/AUTO [id number] 00:00:00 Test Item Value Reference Range Interpretation [...] (test code = 1015) 166 K/UL HEMOGLOBIN [id number] 00:00:00 Test Item Value Reference Range Interpretation Comments HEMOGLOBIN A1c (test code = 28924) 8.5 % HEMOGLOBIN [id number] 00:00:00 Test Item Value Reference Range Interpretation Comments HEMOGLOBIN A1c (test code = 89952) 8.5 % HEMOGLOBIN [id number] 00:00:00 Test Item Value Reference Range Interpretation Comments HEMOGLOBIN A1c (test code = 00524) 8.5 % LIPID [id number] 00:00:00 Test Item Value Reference Range Interpretation Comments CHOLESTEROL (test code = 2210) 186 MG/DL TRIGLYCERIDES (test code = 2232) 88 MG/DL HDL CHOLESTEROL (test code = 2220) 80 MG/DL CALC LDL CHOL (test code = 2237) 88 MG/DL RISK RATIO LDL/HDL (test code = 1.10 RATIO 2238) LIPID [id number] 00:00:00 Test Item Value Reference Range Interpretation Comments CHOLESTEROL (test code = 2210) 186 MG/DL TRIGLYCERIDES (test code = 2232) 88 MG/DL HDL CHOLESTEROL (test code = 2220) 80 MG/DL CALC LDL CHOL (test code = 2237) 88 MG/DL RISK RATIO LDL/HDL (test code = 1.10 RATIO 2238) HEMOGLOBIN [id number] 00:00:00 Test Item Value Reference Range Interpretation Comments HEMOGLOBIN A1c (test code = 33443) 8.2 % HEMOGLOBIN [id number] 00:00:00 Test Item Value Reference Range Interpretation Comments HEMOGLOBIN A1c (test code = 86627) 8.2 % HEMOGLOBIN [id number] 00:00:00 Test Item Value Reference Range Interpretation Comments HEMOGLOBIN A1c (test code = 95306) 8.2 % COMPREHENSIVE METABOLIC [id number] 00:00:00 Test Item Value Reference Range Interpretation Comments GLUCOSE (test code = 2217) 154 MG/DL BUN (test code = 2208) 44 MG/DL CREATININE (test code = 2214) 5.28 MG/DL eGFR AMER. (test code = 9 ML/MIN/1.73 11305) eGFR NON- AMER. (test 8 ML/MIN/1.73 code = 77152) CALC BUN/CREAT (test code = 8 RATIO [...] code = 2219) 16 U/L COMPREHENSIVE METABOLIC [id number] 00:00:00 Test Item Value Reference Range Interpretation Comments GLUCOSE (test code = 2217) 154 MG/DL BUN (test code = 2208) 44 MG/DL CREATININE (test code = 2214) 5.28 MG/DL eGFR AMER. (test code = 9 ML/MIN/1.73 13634) eGFR NON- AMER. (test 8 ML/MIN/1.73 code = 11676) CALC BUN/CREAT (test code = 8 RATIO [...] ALT (test code = 2219) 16 U/L [id number] 00:00:00 Test Item Value Reference Range Interpretation Comments TSH, THIRD GENERATION (test code 0.749 UIU/ML = 2821) [id number] 00:00:00 Test Item Value Reference Range Interpretation Comments TSH, THIRD GENERATION (test code 0.749 UIU/ML = 2821) [id number] 00:00:00 Test Item Value Reference Range Interpretation Comments TSH, THIRD GENERATION (test code 0.749 UIU/ML = 2821) HEMOGLOBIN [id number] 00:00:00 Test Item Value Reference Range Interpretation Comments HEMOGLOBIN A1c (test code = 07899) 8.2 % HEMOGLOBIN [id number] 00:00:00 Test Item Value Reference Range Interpretation Comments HEMOGLOBIN A1c (test code = 05744) 8.2 % HEMOGLOBIN [id number] 00:00:00 Test Item Value Reference Range Interpretation Comments HEMOGLOBIN A1c (test code = 97136) 8.2 % COMPREHENSIVE METABOLIC [id number] 00:00:00 Test Item Value Reference Range Interpretation Comments GLUCOSE (test code = 2217) 154 MG/DL BUN (test code = 2208) 44 MG/DL CREATININE (test code = 2214) 5.28 MG/DL eGFR AMER. (test code = 9 ML/MIN/1.73 86426) eGFR NON- AMER. (test 8 ML/MIN/1.73 code = 08232) CALC BUN/CREAT (test code = 8 RATIO [...] ALKALINE PHOSPHATASE (test code 145 U/L = 220) AST (test code = 2218) 24 U/L ALT (test code = 2219) 16 U/L COMPREHENSIVE METABOLIC [id number] 00:00:00 Test Item Value Reference Range Interpretation Comments GLUCOSE (test code = 2217) 154 MG/DL BUN (test code = 2208) 44 MG/DL CREATININE (test code = 2214) 5.28 MG/DL eGFR AMER. (test code = 9 ML/MIN/1.73 19868) eGFR NON- AMER. (test 8 ML/MIN/1.73 code = 00110) CALC BUN/CREAT (test code = 8 RATIO [...] ALT (test code = 2219) 16 U/L [id number] 00:00:00 Test Item Value Reference Range Interpretation Comments TSH, THIRD GENERATION (test code 0.749 UIU/ML = 2821) [id number] 00:00:00 Test Item Value Reference Range Interpretation Comments TSH, THIRD GENERATION (test code 0.749 UIU/ML = 2821) [id number] 00:00:00 Test Item Value Reference Range Interpretation Comments TSH, THIRD GENERATION (test code 0.749 UIU/ML = 2821) HEMOGLOBIN [id number] 00:00:00 Test Item Value Reference Range Interpretation Comments HEMOGLOBIN A1c (test code = 06727) 8.2 % HEMOGLOBIN [id number] 00:00:00 Test Item Value Reference Range Interpretation Comments HEMOGLOBIN A1c (test code = 26649) 8.2 % HEMOGLOBIN [id number] 00:00:00 Test Item Value Reference Range Interpretation Comments HEMOGLOBIN A1c (test code = 60562) 8.2 % COMPREHENSIVE METABOLIC [id number] 00:00:00 Test Item Value Reference Range Interpretation Comments GLUCOSE (test code = 2217) 154 MG/DL BUN (test code = 2208) 44 MG/DL CREATININE (test code = 2214) 5.28 MG/DL eGFR AMER. (test code = 9 ML/MIN/1.73 54170) eGFR NON- AMER. (test 8 ML/MIN/1.73 code = 58077) CALC BUN/CREAT (test code = 8 RATIO [...] code = 2219) 16 U/L COMPREHENSIVE METABOLIC [id number] 00:00:00 Test Item Value Reference Range Interpretation Comments GLUCOSE (test code = 2217) 154 MG/DL BUN (test code = 2208) 44 MG/DL CREATININE (test code = 2214) 5.28 MG/DL eGFR AMER. (test code = 9 ML/MIN/1.73 15712) eGFR NON- AMER. (test 8 ML/MIN/1.73 code = 09999) CALC BUN/CREAT (test code = 8 RATIO [...] ALT (test code = 2219) 16 U/L [id number] 00:00:00 Test Item Value Reference Range Interpretation Comments TSH, THIRD GENERATION (test code 0.749 UIU/ML = 2821) [id number] 00:00:00 Test Item Value Reference Range Interpretation Comments TSH, THIRD GENERATION (test code 0.749 UIU/ML = 2821) [id number] 00:00:00 Test Item Value Reference Range Interpretation Comments TSH, THIRD GENERATION (test code 0.749 UIU/ML = 2821) HEMOGLOBIN [id number] 00:00:00 Test Item Value Reference Range Interpretation Comments HEMOGLOBIN A1c (test code = 58561) 8.2 % HEMOGLOBIN [id number] 00:00:00 Test Item Value Reference Range Interpretation Comments HEMOGLOBIN A1c (test code = 12922) 8.2 % HEMOGLOBIN [id number] 00:00:00 Test Item Value Reference Range Interpretation Comments HEMOGLOBIN A1c (test code = 99920) 8.2 % HEMOGLOBIN [id number] 00:00:00 Test Item Value Reference Range Interpretation Comments HEMOGLOBIN A1c (test code = 11591) 8.2 % HEMOGLOBIN [id number] 00:00:00 Test Item Value Reference Range Interpretation Comments HEMOGLOBIN A1c (test code = 44227) 8.2 % COMPREHENSIVE METABOLIC [id number] 00:00:00 Test Item Value Reference Range Interpretation Comments GLUCOSE (test code = 2217) 154 MG/DL BUN (test code = 2208) 44 MG/DL CREATININE (test code = 2214) 5.28 MG/DL eGFR AMER. (test code = 9 ML/MIN/1.73 44455) eGFR NON- AMER. (test 8 ML/MIN/1.73 code = 86768) CALC BUN/CREAT (test code = 8 RATIO [...] code = 2219) 16 U/L COMPREHENSIVE METABOLIC [id number] 00:00:00 Test Item Value Reference Range Interpretation Comments GLUCOSE (test code = 2217) 154 MG/DL BUN (test code = 2208) 44 MG/DL CREATININE (test code = 2214) 5.28 MG/DL eGFR AMER. (test code = 9 ML/MIN/1.73 45036) eGFR NON- AMER. (test 8 ML/MIN/1.73 code = 30556) CALC BUN/CREAT (test code = 8 RATIO [...] ALT (test code = 2219) 16 U/L [id number] 00:00:00 Test Item Value Reference Range Interpretation Comments TSH, THIRD GENERATION (test code 0.749 UIU/ML = 2821) [id number] 00:00:00 Test Item Value Reference Range Interpretation Comments TSH, THIRD GENERATION (test code 0.749 UIU/ML = 2821) [id number] 00:00:00 Test Item Value Reference Range Interpretation Comments TSH, THIRD GENERATION (test code 0.749 UIU/ML = 2821) COMPREHENSIVE METABOLIC [id number] 00:00:00 Test Item Value Reference Range Interpretation Comments GLUCOSE (test code = 2217) 154 MG/DL BUN (test code = 2208) 44 MG/DL CREATININE (test code = 2214) 5.28 MG/DL eGFR AMER. (test code = 9 ML/MIN/1.73 05976) eGFR NON- AMER. (test 8 ML/MIN/1.73 code = 83912) CALC BUN/CREAT (test code = 8 RATIO [...] ALT (test code = 2219) 16 U/L [id number] 00:00:00 Test Item Value Reference Range Interpretation Comments TSH, THIRD GENERATION (test code 0.749 UIU/ML = 2821) [id number] 00:00:00 Test Item Value Reference Range Interpretation Comments TSH, THIRD GENERATION (test code 0.749 UIU/ML = 2821) HEMOGLOBIN [id number] 00:00:00 Test Item Value Reference Range Interpretation Comments HEMOGLOBIN A1c (test code = 35007) 8.2 % HEMOGLOBIN [id number] 00:00:00 Test Item Value Reference Range Interpretation Comments HEMOGLOBIN A1c (test code = 94073) 8.2 % HEMOGLOBIN [id number] 00:00:00 Test Item Value Reference Range Interpretation Comments HEMOGLOBIN A1c (test code = 83396) 8.2 % COMPREHENSIVE METABOLIC [id number] 00:00:00 Test Item Value Reference Range Interpretation Comments GLUCOSE (test code = 2217) 154 MG/DL BUN (test code = 2208) 44 MG/DL CREATININE (test code = 2214) 5.28 MG/DL eGFR AMER. (test code = 9 ML/MIN/1.73 50213) eGFR NON- AMER. (test 8 ML/MIN/1.73 code = 20775) CALC BUN/CREAT (test code = 8 RATIO [...] code = 2219) 16 U/L COMPREHENSIVE METABOLIC [id number] 00:00:00 Test Item Value Reference Range Interpretation Comments GLUCOSE (test code = 2217) 154 MG/DL BUN (test code = 2208) 44 MG/DL CREATININE (test code = 2214) 5.28 MG/DL eGFR AMER. (test code = 9 ML/MIN/1.73 62110) eGFR NON- AMER. (test 8 ML/MIN/1.73 code = 73116) CALC BUN/CREAT (test code = 8 RATIO [...] ALT (test code = 2219) 16 U/L [id number] 00:00:00 Test Item Value Reference Range Interpretation Comments TSH, THIRD GENERATION (test code 0.749 UIU/ML = 2821) [id number] 00:00:00 Test Item Value Reference Range Interpretation Comments TSH, THIRD GENERATION (test code 0.749 UIU/ML = 2821) [id number] 00:00:00 Test Item Value Reference Range Interpretation Comments TSH, THIRD GENERATION (test code 0.749 UIU/ML = 2821) CBC W/AUTO [id number] 00:00:00 Test Item Value Reference Range Interpretation [...] code = 1015) 187 K/UL CBC W/AUTO [id number] 00:00:00 Test Item Value Reference Range Interpretation [...] code = 1015) 187 K/UL CBC W/AUTO [id number] 00:00:00 Test Item Value Reference Range Interpretation [...] (test code = 1015) 187 K/UL HEMOGLOBIN [id number] 00:00:00 Test Item Value Reference Range Interpretation Comments HEMOGLOBIN A1c (test code = 57387) 8.7 % HEMOGLOBIN [id number] 00:00:00 Test Item Value Reference Range Interpretation Comments HEMOGLOBIN A1c (test code = 84069) 8.7 % HEMOGLOBIN [id number] 00:00:00 Test Item Value Reference Range Interpretation Comments HEMOGLOBIN A1c (test code = 76293) 8.7 % COMPREHENSIVE METABOLIC [id number] 00:00:00 Test Item Value Reference Range Interpretation Comments GLUCOSE (test code = 2217) 229 MG/DL BUN (test code = 2208) 30 MG/DL CREATININE (test code = 2214) 4.17 MG/DL eGFR AMER. (test code 13 ML/MIN/1.73 = 34318) eGFR NON- AMER. (test 11 ML/MIN/1.73 code = 80955) CALC BUN/CREAT (test code = 7 RATIO [...] code = 2219) 10 U/L COMPREHENSIVE METABOLIC [id number] 00:00:00 Test Item Value Reference Range Interpretation Comments GLUCOSE (test code = 2217) 229 MG/DL BUN (test code = 2208) 30 MG/DL CREATININE (test code = 2214) 4.17 MG/DL eGFR AMER. (test code 13 ML/MIN/1.73 = 18954) eGFR NON- AMER. (test 11 ML/MIN/1.73 code = 66442) CALC BUN/CREAT (test code = 7 RATIO [...] code = 2219) 10 U/L CBC W/AUTO [id number] 00:00:00 Test Item Value Reference Range Interpretation [...] code = 1015) 187 K/UL CBC W/AUTO [id number] 00:00:00 Test Item Value Reference Range Interpretation [...] code = 1015) 187 K/UL CBC W/AUTO [id number] 00:00:00 Test Item Value Reference Range Interpretation [...] (test code = 1015) 187 K/UL HEMOGLOBIN [id number] 00:00:00 Test Item Value Reference Range Interpretation Comments HEMOGLOBIN A1c (test code = 82864) 8.7 % HEMOGLOBIN [id number] 00:00:00 Test Item Value Reference Range Interpretation Comments HEMOGLOBIN A1c (test code = 25731) 8.7 % HEMOGLOBIN [id number] 00:00:00 Test Item Value Reference Range Interpretation Comments HEMOGLOBIN A1c (test code = 02645) 8.7 % COMPREHENSIVE METABOLIC [id number] 00:00:00 Test Item Value Reference Range Interpretation Comments GLUCOSE (test code = 2217) 229 MG/DL BUN (test code = 2208) 30 MG/DL CREATININE (test code = 2214) 4.17 MG/DL eGFR AMER. (test code 13 ML/MIN/1.73 = 76716) eGFR NON- AMER. (test 11 ML/MIN/1.73 code = 92230) CALC BUN/CREAT (test code = 7 RATIO [...] code = 2219) 10 U/L COMPREHENSIVE METABOLIC [id number] 00:00:00 Test Item Value Reference Range Interpretation Comments GLUCOSE (test code = 2217) 229 MG/DL BUN (test code = 2208) 30 MG/DL CREATININE (test code = 2214) 4.17 MG/DL eGFR AMER. (test code 13 ML/MIN/1.73 = 24245) eGFR NON- AMER. (test 11 ML/MIN/1.73 code = 45734) CALC BUN/CREAT (test code = 7 RATIO [...] code = 2219) 10 U/L CBC W/AUTO [id number] 00:00:00 Test Item Value Reference Range Interpretation [...] code = 1015) 187 K/UL CBC W/AUTO [id number] 00:00:00 Test Item Value Reference Range Interpretation [...] code = 1015) 187 K/UL CBC W/AUTO [id number] 00:00:00 Test Item Value Reference Range Interpretation [...] (test code = 1015) 187 K/UL HEMOGLOBIN [id number] 00:00:00 Test Item Value Reference Range Interpretation Comments HEMOGLOBIN A1c (test code = 46139) 8.7 % HEMOGLOBIN [id number] 00:00:00 Test Item Value Reference Range Interpretation Comments HEMOGLOBIN A1c (test code = 48783) 8.7 % HEMOGLOBIN [id number] 00:00:00 Test Item Value Reference Range Interpretation Comments HEMOGLOBIN A1c (test code = 99314) 8.7 % COMPREHENSIVE METABOLIC [id number] 00:00:00 Test Item Value Reference Range Interpretation Comments GLUCOSE (test code = 2217) 229 MG/DL BUN (test code = 2208) 30 MG/DL CREATININE (test code = 2214) 4.17 MG/DL eGFR AMER. (test code 13 ML/MIN/1.73 = 77993) eGFR NON- AMER. (test 11 ML/MIN/1.73 code = 96278) CALC BUN/CREAT (test code = 7 RATIO [...] code = 2219) 10 U/L COMPREHENSIVE METABOLIC [id number] 00:00:00 Test Item Value Reference Range Interpretation Comments GLUCOSE (test code = 2217) 229 MG/DL BUN (test code = 2208) 30 MG/DL CREATININE (test code = 2214) 4.17 MG/DL eGFR AMER. (test code 13 ML/MIN/1.73 = 07895) eGFR NON- AMER. (test 11 ML/MIN/1.73 code = 17117) CALC BUN/CREAT (test code = 7 RATIO [...] code = 2219) 10 U/L CBC W/AUTO [id number] 00:00:00 Test Item Value Reference Range Interpretation [...] code = 1015) 187 K/UL CBC W/AUTO [id number] 00:00:00 Test Item Value Reference Range Interpretation [...] code = 1015) 187 K/UL CBC W/AUTO [id number] 00:00:00 Test Item Value Reference Range Interpretation [...] code = 1015) 187 K/UL CBC W/AUTO [id number] 00:00:00 Test Item Value Reference Range Interpretation [...] code = 1015) 187 K/UL CBC W/AUTO [id number] 00:00:00 Test Item Value Reference Range Interpretation [...] (test code = 1015) 187 K/UL HEMOGLOBIN [id number] 00:00:00 Test Item Value Reference Range Interpretation Comments HEMOGLOBIN A1c (test code = 82667) 8.7 % HEMOGLOBIN [id number] 00:00:00 Test Item Value Reference Range Interpretation Comments HEMOGLOBIN A1c (test code = 39171) 8.7 % HEMOGLOBIN [id number] 00:00:00 Test Item Value Reference Range Interpretation Comments HEMOGLOBIN A1c (test code = 85472) 8.7 % COMPREHENSIVE METABOLIC [id number] 00:00:00 Test Item Value Reference Range Interpretation Comments GLUCOSE (test code = 2217) 229 MG/DL BUN (test code = 2208) 30 MG/DL CREATININE (test code = 2214) 4.17 MG/DL eGFR AMER. (test code 13 ML/MIN/1.73 = 15204) eGFR NON- AMER. (test 11 ML/MIN/1.73 code = 12490) CALC BUN/CREAT (test code = 7 RATIO [...] ALT (test code = 2219) 10 U/L HEMOGLOBIN [id number] 00:00:00 Test Item Value Reference Range Interpretation Comments HEMOGLOBIN A1c (test code = 07604) 8.7 % COMPREHENSIVE METABOLIC [id number] 00:00:00 Test Item Value Reference Range Interpretation Comments GLUCOSE (test code = 2217) 229 MG/DL BUN (test code = 2208) 30 MG/DL CREATININE (test code = 2214) 4.17 MG/DL eGFR AMER. (test code 13 ML/MIN/1.73 = 05395) eGFR NON- AMER. (test 11 ML/MIN/1.73 code = 84377) CALC BUN/CREAT (test code = 7 RATIO [...] ALT (test code = 2219) 10 U/L HEMOGLOBIN [id number] 00:00:00 Test Item Value Reference Range Interpretation Comments HEMOGLOBIN A1c (test code = 58260) 8.7 % COMPREHENSIVE METABOLIC [id number] 00:00:00 Test Item Value Reference Range Interpretation Comments GLUCOSE (test code = 2217) 229 MG/DL BUN (test code = 2208) 30 MG/DL CREATININE (test code = 2214) 4.17 MG/DL eGFR AMER. (test code 13 ML/MIN/1.73 = 27701) eGFR NON- AMER. (test 11 ML/MIN/1.73 code = 59336) CALC BUN/CREAT (test code = 7 RATIO [...] code = 2219) 10 U/L CBC W/AUTO [id number] 00:00:00 Test Item Value Reference Range Interpretation [...] code = 1015) 187 K/UL CBC W/AUTO [id number] 00:00:00 Test Item Value Reference Range Interpretation [...] code = 1015) 187 K/UL CBC W/AUTO [id number] 00:00:00 Test Item Value Reference Range Interpretation [...] (test code = 1015) 187 K/UL HEMOGLOBIN [id number] 00:00:00 Test Item Value Reference Range Interpretation Comments HEMOGLOBIN A1c (test code = 66082) 8.7 % HEMOGLOBIN [id number] 00:00:00 Test Item Value Reference Range Interpretation Comments HEMOGLOBIN A1c (test code = 19545) 8.7 % HEMOGLOBIN [id number] 00:00:00 Test Item Value Reference Range Interpretation Comments HEMOGLOBIN A1c (test code = 78761) 8.7 % COMPREHENSIVE METABOLIC [id number] 00:00:00 Test Item Value Reference Range Interpretation Comments GLUCOSE (test code = 2217) 229 MG/DL BUN (test code = 2208) 30 MG/DL CREATININE (test code = 2214) 4.17 MG/DL eGFR AMER. (test code 13 ML/MIN/1.73 = 14652) eGFR NON- AMER. (test 11 ML/MIN/1.73 code = 89626) CALC BUN/CREAT (test code = 7 RATIO [...] code = 2219) 10 U/L COMPREHENSIVE METABOLIC [id number] 00:00:00 Test Item Value Reference Range Interpretation Comments GLUCOSE (test code = 2217) 229 MG/DL BUN (test code = 2208) 30 MG/DL CREATININE (test code = 2214) 4.17 MG/DL eGFR AMER. (test code 13 ML/MIN/1.73 = 68433) eGFR NON- AMER. (test 11 ML/MIN/1.73 code = 54273) CALC BUN/CREAT (test code = 7 RATIO [...] ALT (test code = 2219) 10 U/L SURGICAL [id number] 08:04:00 RUN DATE: 07/06/18 [facility] *LIVE* PAGE 1 RUN TIME: 803 Specimen Inquiry RUN USER: INTERFACE --------- ---PATIENT: MARGARITA CORONADO LOC: CYNDIE U #: [id number] AGE/SX: 58/F ROOM: [id number] DR: Jonathan Reid MD : 56 BED: DIS: STATUS: [facility] [place]: SPEC #: [id number] RECD: 07/01/18 STATUS: QUIN #: [id number] JENIFFER: 07/01/[address] [facility] [address]: Jonathan Reid MD ENTERED: 07/05/18 SP TYPE: SURG SPEC OTHR DR: No Primary or Family PhysicianORDERED: GM LEVEL 4 CODES: [id number] - COLON, NOS COPIES TO: No Primary or Family Physician Jonathan Reid MD [address] [place] [address] PROCEDURES: GM LEVEL 4 (Incomplete) TISSUES: 1. [...] CONTINUED ON NEXT PAGE RUN DATE: 07/06/18 [facility] *LIVE* PAGE 2 RUN TIME: 803 Specimen Inquiry RUN USER: INTERFACE -------- ----SPEC #: [id number] PATIENT: MARGARITA CORONADO #[id number] (Continued) POST-OP DIAGNOSIS Colon polyp PRE-OP DIAGNOSIS Colon screen Signed SIGNATURE ON FILE [facility] Brigida LARA 07/06/18 0804 END OF REPORT PTH, INTACT, WITH CALCIUM, PHOSPHORUS, [id number] 00:00:00 Test Item Value Reference Range Interpretation Comments INTACT PTH (test code = 5005) 256 PG/ML CALCIUM (test code = 2209) 9.0 MG/DL PHOSPHORUS (test code = 2227) 4.6 MG/DL CREATININE (test code = 2214) 3.71 MG/DL eGFR AMER. (test code 15 ML/MIN/1.73 = 33906) eGFR NON- AMER. (test 13 ML/MIN/1.73 code = 53705) PTH, INTACT, WITH CALCIUM, PHOSPHORUS, [id number] 00:00:00 Test Item Value Reference Range Interpretation Comments INTACT PTH (test code = 5005) 256 PG/ML CALCIUM (test code = 2209) 9.0 MG/DL PHOSPHORUS (test code = 2227) 4.6 MG/DL CREATININE (test code = 2214) 3.71 MG/DL eGFR AMER. (test code 15 ML/MIN/1.73 = 36237) eGFR NON- AMER. (test 13 ML/MIN/1.73 code = 44800) PTH, INTACT, WITH CALCIUM, PHOSPHORUS, [id number] 00:00:00 Test Item Value Reference Range Interpretation Comments INTACT PTH (test code = 5005) 256 PG/ML CALCIUM (test code = 2209) 9.0 MG/DL PHOSPHORUS (test code = 2227) 4.6 MG/DL CREATININE (test code = 2214) 3.71 MG/DL eGFR AMER. (test code 15 ML/MIN/1.73 = 59349) eGFR NON- AMER. (test 13 ML/MIN/1.73 code = 93170) PTH, INTACT, WITH CALCIUM, PHOSPHORUS, [id number] 00:00:00 Test Item Value Reference Range Interpretation Comments INTACT PTH (test code = 5005) 256 PG/ML CALCIUM (test code = 2209) 9.0 MG/DL PHOSPHORUS (test code = 2227) 4.6 MG/DL CREATININE (test code = 2214) 3.71 MG/DL eGFR AMER. (test code 15 ML/MIN/1.73 = 18453) eGFR NON- AMER. (test 13 ML/MIN/1.73 code = 92628) PTH, INTACT, WITH CALCIUM, PHOSPHORUS, [id number] 00:00:00 Test Item Value Reference Range Interpretation Comments INTACT PTH (test code = 5005) 256 PG/ML CALCIUM (test code = 2209) 9.0 MG/DL PHOSPHORUS (test code = 2227) 4.6 MG/DL CREATININE (test code = 2214) 3.71 MG/DL eGFR AMER. (test code 15 ML/MIN/1.73 = 25190) eGFR NON- AMER. (test 13 ML/MIN/1.73 code = 38188) PTH, INTACT, WITH CALCIUM, PHOSPHORUS, [id number] 00:00:00 Test Item Value Reference Range Interpretation Comments INTACT PTH (test code = 5005) 256 PG/ML CALCIUM (test code = 2209) 9.0 MG/DL PHOSPHORUS (test code = 2227) 4.6 MG/DL CREATININE (test code = 2214) 3.71 MG/DL eGFR AMER. (test code 15 ML/MIN/1.73 = 66796) eGFR NON- AMER. (test 13 ML/MIN/1.73 code = 92742) PTH, INTACT, WITH CALCIUM, PHOSPHORUS, [id number] 00:00:00 Test Item Value Reference Range Interpretation Comments INTACT PTH (test code = 5005) 256 PG/ML CALCIUM (test code = 2209) 9.0 MG/DL PHOSPHORUS (test code = 2227) 4.6 MG/DL CREATININE (test code = 2214) 3.71 MG/DL eGFR AMER. (test code 15 ML/MIN/1.73 = 08959) eGFR NON- AMER. (test 13 ML/MIN/1.73 code = 65836) PTH, INTACT, WITH CALCIUM, PHOSPHORUS, [id number] 00:00:00 Test Item Value Reference Range Interpretation Comments INTACT PTH (test code = 5005) 256 PG/ML CALCIUM (test code = 2209) 9.0 MG/DL PHOSPHORUS (test code = 2227) 4.6 MG/DL CREATININE (test code = 2214) 3.71 MG/DL eGFR AMER. (test code 15 ML/MIN/1.73 = 87838) eGFR NON- AMER. (test 13 ML/MIN/1.73 code = 89776) PTH, INTACT, WITH CALCIUM, PHOSPHORUS, [id number] 00:00:00 Test Item Value Reference Range Interpretation Comments INTACT PTH (test code = 5005) 256 PG/ML CALCIUM (test code = 2209) 9.0 MG/DL PHOSPHORUS (test code = 2227) 4.6 MG/DL CREATININE (test code = 2214) 3.71 MG/DL eGFR AMER. (test code 15 ML/MIN/1.73 = 34367) eGFR NON- AMER. (test 13 ML/MIN/1.73 code = 83371) PTH, INTACT, WITH CALCIUM, PHOSPHORUS, [id number] 00:00:00 Test Item Value Reference Range Interpretation Comments INTACT PTH (test code = 5005) 256 PG/ML CALCIUM (test code = 2209) 9.0 MG/DL PHOSPHORUS (test code = 2227) 4.6 MG/DL CREATININE (test code = 2214) 3.71 MG/DL eGFR AMER. (test code 15 ML/MIN/1.73 = 95328) eGFR NON- AMER. (test 13 ML/MIN/1.73 code = 55995) PTH, INTACT, WITH CALCIUM, PHOSPHORUS, [id number] 00:00:00 Test Item Value Reference Range Interpretation Comments INTACT PTH (test code = 5005) 256 PG/ML CALCIUM (test code = 2209) 9.0 MG/DL PHOSPHORUS (test code = 2227) 4.6 MG/DL CREATININE (test code = 2214) 3.71 MG/DL eGFR AMER. (test code 15 ML/MIN/1.73 = 41045) eGFR NON- AMER. (test 13 ML/MIN/1.73 code = 06921) PTH, INTACT, WITH CALCIUM, PHOSPHORUS, [id number] 00:00:00 Test Item Value Reference Range Interpretation Comments INTACT PTH (test code = 5005) 256 PG/ML CALCIUM (test code = 2209) 9.0 MG/DL PHOSPHORUS (test code = 2227) 4.6 MG/DL CREATININE (test code = 2214) 3.71 MG/DL eGFR AMER. (test code 15 ML/MIN/1.73 = 57606) eGFR NON- AMER. (test 13 ML/MIN/1.73 code = 71032) PTH, INTACT, WITH CALCIUM, PHOSPHORUS, [id number] 00:00:00 Test Item Value Reference Range Interpretation Comments INTACT PTH (test code = 5005) 256 PG/ML CALCIUM (test code = 2209) 9.0 MG/DL PHOSPHORUS (test code = 2227) 4.6 MG/DL CREATININE (test code = 2214) 3.71 MG/DL eGFR AMER. (test code 15 ML/MIN/1.73 = 94441) eGFR NON- AMER. (test 13 ML/MIN/1.73 code = 46555) PTH, INTACT, WITH CALCIUM, PHOSPHORUS, [id number] 00:00:00 Test Item Value Reference Range Interpretation Comments INTACT PTH (test code = 5005) 256 PG/ML CALCIUM (test code = 2209) 9.0 MG/DL PHOSPHORUS (test code = 2227) 4.6 MG/DL CREATININE (test code = 2214) 3.71 MG/DL eGFR AMER. (test code 15 ML/MIN/1.73 = 81940) eGFR NON- AMER. (test 13 ML/MIN/1.73 code = 07978) PTH, INTACT, WITH CALCIUM, PHOSPHORUS, [id number] 00:00:00 Test Item Value Reference Range Interpretation Comments INTACT PTH (test code = 5005) 256 PG/ML CALCIUM (test code = 2209) 9.0 MG/DL PHOSPHORUS (test code = 2227) 4.6 MG/DL CREATININE (test code = 2214) 3.71 MG/DL eGFR AMER. (test code 15 ML/MIN/1.73 = 99023) eGFR NON- AMER. (test 13 ML/MIN/1.73 code = 19951) PTH, INTACT, WITH CALCIUM, PHOSPHORUS, [id number] 00:00:00 Test Item Value Reference Range Interpretation Comments INTACT PTH (test code = 5005) 256 PG/ML CALCIUM (test code = 2209) 9.0 MG/DL PHOSPHORUS (test code = 2227) 4.6 MG/DL CREATININE (test code = 2214) 3.71 MG/DL eGFR AMER. (test code 15 ML/MIN/1.73 = 02967) eGFR NON- AMER. (test 13 ML/MIN/1.73 code = 55138) PTH, INTACT, WITH CALCIUM, PHOSPHORUS, [id number] 00:00:00 Test Item Value Reference Range Interpretation Comments INTACT PTH (test code = 5005) 256 PG/ML CALCIUM (test code = 2209) 9.0 MG/DL PHOSPHORUS (test code = 2227) 4.6 MG/DL CREATININE (test code = 2214) 3.71 MG/DL eGFR AMER. (test code 15 ML/MIN/1.73 = 15300) eGFR NON- AMER. (test 13 ML/MIN/1.73 code = 33619) VITAMIN D, 25 [id number] 00:00:00 Test Item Value Reference Range Interpretation Comments VITAMIN D, 25 OH (test code = 4958) 31 NG/ML HEMOGLOBIN [id number] 00:00:00 Test Item Value Reference Range Interpretation Comments HEMOGLOBIN A1c (test code = 96992) 8.0 % HEMOGLOBIN [id number] 00:00:00 Test Item Value Reference Range Interpretation Comments HEMOGLOBIN A1c (test code = 91155) 8.0 % HEMOGLOBIN [id number] 00:00:00 Test Item Value Reference Range Interpretation Comments HEMOGLOBIN A1c (test code = 68814) 8.0 % LIPID [id number] 00:00:00 Test Item Value Reference Range Interpretation Comments CHOLESTEROL (test code = 2210) 183 MG/DL TRIGLYCERIDES (test code = 2232) 126 MG/DL HDL CHOLESTEROL (test code = 2220) 67 MG/DL CALC LDL CHOL (test code = 2237) 91 MG/DL RISK RATIO LDL/HDL (test code = 1.36 RATIO 2238) LIPID [id number] 00:00:00 Test Item Value Reference Range Interpretation Comments CHOLESTEROL (test code = 2210) 183 MG/DL TRIGLYCERIDES (test code = 2232) 126 MG/DL HDL CHOLESTEROL (test code = 2220) 67 MG/DL CALC LDL CHOL (test code = 2237) 91 MG/DL RISK RATIO LDL/HDL (test code = 1.36 RATIO 2238) COMPREHENSIVE METABOLIC [id number] 00:00:00 Test Item Value Reference Range Interpretation Comments GLUCOSE (test code = 2217) 220 MG/DL BUN (test code = 2208) 55 MG/DL CREATININE (test code = 2214) 3.71 MG/DL eGFR AMER. (test code 15 ML/MIN/1.73 = 18672) eGFR NON- AMER. (test 13 ML/MIN/1.73 code = 34069) CALC BUN/CREAT (test code = 15 RATIO [...] code = 2219) 15 U/L COMPREHENSIVE METABOLIC [id number] 00:00:00 Test Item Value Reference Range Interpretation Comments GLUCOSE (test code = 2217) 220 MG/DL BUN (test code = 2208) 55 MG/DL CREATININE (test code = 2214) 3.71 MG/DL eGFR AMER. (test code 15 ML/MIN/1.73 = 72469) eGFR NON- AMER. (test 13 ML/MIN/1.73 code = 85164) CALC BUN/CREAT (test code = 15 RATIO [...] = 2219) 15 U/L MICROALBUMIN/CREATININE, RANDOM AND [id number] 00:00:00 Test Item Value Reference Range Interpretation Comments CREATININE, URINE, CONC. (test 38.3 MG/DL code = 2072) ALBUMIN, URINE, RANDOM (test code 275.7 MG/DL = 30403) CALC ALBUMIN/CREAT, RND (test 7198 MG/G code = 75981) MICROALBUMIN/CREATININE, RANDOM AND [id number] 00:00:00 Test Item Value Reference Range Interpretation Comments CREATININE, URINE, CONC. (test 38.3 MG/DL code = 2072) ALBUMIN, URINE, RANDOM (test code 275.7 MG/DL = 56498) CALC ALBUMIN/CREAT, RND (test 7198 MG/G code = 02740) CBC W/AUTO [id number] 00:00:00 Test Item Value Reference Range Interpretation [...] code = 1015) 233 K/UL CBC W/AUTO [id number] 00:00:00 Test Item Value Reference Range Interpretation [...] code = 1015) 233 K/UL CBC W/AUTO [id number] 00:00:00 Test Item Value Reference Range Interpretation [...] COUNT (test code = 1015) 233 K/UL [id number] 00:00:00 Test Item Value Reference Range Interpretation Comments TSH, THIRD GENERATION (test code 2.370 UIU/ML = 2821) [id number] 00:00:00 Test Item Value Reference Range Interpretation Comments TSH, THIRD GENERATION (test code 2.370 UIU/ML = 2821) [id number] 00:00:00 Test Item Value Reference Range Interpretation Comments TSH, THIRD GENERATION (test code 2.370 UIU/ML = 2821) VITAMIN D, 25 [id number] 00:00:00 Test Item Value Reference Range Interpretation Comments VITAMIN D, 25 OH (test code = 4958) 31 NG/ML VITAMIN D, 25 [id number] 00:00:00 Test Item Value Reference Range Interpretation Comments VITAMIN D, 25 OH (test code = 4958) 31 NG/ML HEMOGLOBIN [id number] 00:00:00 Test Item Value Reference Range Interpretation Comments HEMOGLOBIN A1c (test code = 87832) 8.0 % HEMOGLOBIN [id number] 00:00:00 Test Item Value Reference Range Interpretation Comments HEMOGLOBIN A1c (test code = 55881) 8.0 % HEMOGLOBIN [id number] 00:00:00 Test Item Value Reference Range Interpretation Comments HEMOGLOBIN A1c (test code = 51633) 8.0 % LIPID [id number] 00:00:00 Test Item Value Reference Range Interpretation Comments CHOLESTEROL (test code = 2210) 183 MG/DL TRIGLYCERIDES (test code = 2232) 126 MG/DL HDL CHOLESTEROL (test code = 2220) 67 MG/DL CALC LDL CHOL (test code = 2237) 91 MG/DL RISK RATIO LDL/HDL (test code = 1.36 RATIO 2238) LIPID [id number] 00:00:00 Test Item Value Reference Range Interpretation Comments CHOLESTEROL (test code = 2210) 183 MG/DL TRIGLYCERIDES (test code = 2232) 126 MG/DL HDL CHOLESTEROL (test code = 2220) 67 MG/DL CALC LDL CHOL (test code = 2237) 91 MG/DL RISK RATIO LDL/HDL (test code = 1.36 RATIO 2238) COMPREHENSIVE METABOLIC [id number] 00:00:00 Test Item Value Reference Range Interpretation Comments GLUCOSE (test code = 2217) 220 MG/DL BUN (test code = 2208) 55 MG/DL CREATININE (test code = 2214) 3.71 MG/DL eGFR AMER. (test code 15 ML/MIN/1.73 = 84430) eGFR NON- AMER. (test 13 ML/MIN/1.73 code = 24171) CALC BUN/CREAT (test code = 15 RATIO [...] = 0.3 MG/DL 220) ALKALINE PHOSPHATASE (test 202 U/L code = 2204) AST (test code = 2218) 26 U/L ALT (test code = 2219) 15 U/L COMPREHENSIVE METABOLIC [id number] 00:00:00 Test Item Value Reference Range Interpretation Comments GLUCOSE (test code = 2217) 220 MG/DL BUN (test code = 2208) 55 MG/DL CREATININE (test code = 2214) 3.71 MG/DL eGFR AMER. (test code 15 ML/MIN/1.73 = 14945) eGFR NON- AMER. (test 13 ML/MIN/1.73 code = 07590) CALC BUN/CREAT (test code = 15 RATIO 223) SODIUM (test code = 2231) 139 MEQ/L [...] ALKALINE PHOSPHATASE (test 202 U/L code = 220) AST (test code = 2218) 26 U/L ALT (test code = 2219) 15 U/L MICROALBUMIN/CREATININE, RANDOM AND [id number] 00:00:00 Test Item Value Reference Range Interpretation Comments CREATININE, URINE, CONC. (test 38.3 MG/DL code = 2072) ALBUMIN, URINE, RANDOM (test code 275.7 MG/DL = 78174) CALC ALBUMIN/CREAT, RND (test 7198 MG/G code = 64931) MICROALBUMIN/CREATININE, RANDOM AND [id number] 00:00:00 Test Item Value Reference Range Interpretation Comments CREATININE, URINE, CONC. (test 38.3 MG/DL code = 2072) ALBUMIN, URINE, RANDOM (test code 275.7 MG/DL = 08760) CALC ALBUMIN/CREAT, RND (test 7198 MG/G code = 49695) CBC W/AUTO [id number] 00:00:00 Test Item Value Reference Range Interpretation [...] code = 1015) 233 K/UL CBC W/AUTO [id number] 00:00:00 Test Item Value Reference Range Interpretation [...] code = 1015) 233 K/UL CBC W/AUTO [id number] 00:00:00 Test Item Value Reference Range Interpretation [...] COUNT (test code = 1015) 233 K/UL [id number] 00:00:00 Test Item Value Reference Range Interpretation Comments TSH, THIRD GENERATION (test code 2.370 UIU/ML = 2821) [id number] 00:00:00 Test Item Value Reference Range Interpretation Comments TSH, THIRD GENERATION (test code 2.370 UIU/ML = 2821) [id number] 00:00:00 Test Item Value Reference Range Interpretation Comments TSH, THIRD GENERATION (test code 2.370 UIU/ML = 2821) VITAMIN D, 25 [id number] 00:00:00 Test Item Value Reference Range Interpretation Comments VITAMIN D, 25 OH (test code = 4958) 31 NG/ML VITAMIN D, 25 [id number] 00:00:00 Test Item Value Reference Range Interpretation Comments VITAMIN D, 25 OH (test code = 4958) 31 NG/ML HEMOGLOBIN [id number] 00:00:00 Test Item Value Reference Range Interpretation Comments HEMOGLOBIN A1c (test code = 90253) 8.0 % HEMOGLOBIN [id number] 00:00:00 Test Item Value Reference Range Interpretation Comments HEMOGLOBIN A1c (test code = 15467) 8.0 % HEMOGLOBIN [id number] 00:00:00 Test Item Value Reference Range Interpretation Comments HEMOGLOBIN A1c (test code = 16445) 8.0 % LIPID [id number] 00:00:00 Test Item Value Reference Range Interpretation Comments CHOLESTEROL (test code = 2210) 183 MG/DL TRIGLYCERIDES (test code = 2232) 126 MG/DL HDL CHOLESTEROL (test code = 2220) 67 MG/DL CALC LDL CHOL (test code = 2237) 91 MG/DL RISK RATIO LDL/HDL (test code = 1.36 RATIO 2238) LIPID [id number] 00:00:00 Test Item Value Reference Range Interpretation Comments CHOLESTEROL (test code = 2210) 183 MG/DL TRIGLYCERIDES (test code = 2232) 126 MG/DL HDL CHOLESTEROL (test code = 2220) 67 MG/DL CALC LDL CHOL (test code = 2237) 91 MG/DL RISK RATIO LDL/HDL (test code = 1.36 RATIO 2238) COMPREHENSIVE METABOLIC [id number] 00:00:00 Test Item Value Reference Range Interpretation Comments GLUCOSE (test code = 2217) 220 MG/DL BUN (test code = 2208) 55 MG/DL CREATININE (test code = 2214) 3.71 MG/DL eGFR AMER. (test code 15 ML/MIN/1.73 = 08365) eGFR NON- AMER. (test 13 ML/MIN/1.73 code = 99943) CALC BUN/CREAT (test code = 15 RATIO [...] code = 2219) 15 U/L COMPREHENSIVE METABOLIC [id number] 00:00:00 Test Item Value Reference Range Interpretation Comments GLUCOSE (test code = 2217) 220 MG/DL BUN (test code = 2208) 55 MG/DL CREATININE (test code = 2214) 3.71 MG/DL eGFR AMER. (test code 15 ML/MIN/1.73 = 96739) eGFR NON- AMER. (test 13 ML/MIN/1.73 code = 92962) CALC BUN/CREAT (test code = 15 RATIO 2235) SODIUM (test code = 2231) 139 MEQ/L POTASSIUM (test code = 2228) 5.7 MEQ/L CHLORIDE (test code = 2215) 102 MEQ/L CARBON DIOXIDE (test code = 24 MEQ/L 220) CALCIUM (test code = 2209) 9.0 MG/DL PROTEIN, TOTAL (test code = 7.1 G/DL 9) ALBUMIN (test code = 2201) 3.8 G/DL CALC GLOBULIN (test code = 3.3 G/DL 2240) CALC A/G RATIO (test code = 1.2 RATIO 2234) BILIRUBIN, TOTAL (test code = 0.3 MG/DL 2206) ALKALINE PHOSPHATASE (test 202 U/L code = 2204) AST (test code = 2218) 26 U/L ALT (test code = 2219) 15 U/L MICROALBUMIN/CREATININE, RANDOM AND [id number] 00:00:00 Test Item Value Reference Range Interpretation Comments CREATININE, URINE, CONC. (test 38.3 MG/DL code = 2072) ALBUMIN, URINE, RANDOM (test code 275.7 MG/DL = 05994) CALC ALBUMIN/CREAT, RND (test 7198 MG/G code = 22727) MICROALBUMIN/CREATININE, RANDOM AND [id number] 00:00:00 Test Item Value Reference Range Interpretation Comments CREATININE, URINE, CONC. (test 38.3 MG/DL code = 2072) ALBUMIN, URINE, RANDOM (test code 275.7 MG/DL = 39643) CALC ALBUMIN/CREAT, RND (test 7198 MG/G code = 86651) CBC W/AUTO [id number] 00:00:00 Test Item Value Reference Range Interpretation [...] code = 1015) 233 K/UL CBC W/AUTO [id number] 00:00:00 Test Item Value Reference Range Interpretation [...] code = 1015) 233 K/UL CBC W/AUTO [id number] 00:00:00 Test Item Value Reference Range Interpretation [...] COUNT (test code = 1015) 233 K/UL [id number] 00:00:00 Test Item Value Reference Range Interpretation Comments TSH, THIRD GENERATION (test code 2.370 UIU/ML = 2821) [id number] 00:00:00 Test Item Value Reference Range Interpretation Comments TSH, THIRD GENERATION (test code 2.370 UIU/ML = 2821) [id number] 00:00:00 Test Item Value Reference Range Interpretation Comments TSH, THIRD GENERATION (test code 2.370 UIU/ML = 2821) VITAMIN D, 25 [id number] 00:00:00 Test Item Value Reference Range Interpretation Comments VITAMIN D, 25 OH (test code = 4958) 31 NG/ML VITAMIN D, 25 [id number] 00:00:00 Test Item Value Reference Range Interpretation Comments VITAMIN D, 25 OH (test code = 4958) 31 NG/ML HEMOGLOBIN [id number] 00:00:00 Test Item Value Reference Range Interpretation Comments HEMOGLOBIN A1c (test code = 06677) 8.0 % HEMOGLOBIN [id number] 00:00:00 Test Item Value Reference Range Interpretation Comments HEMOGLOBIN A1c (test code = 63948) 8.0 % HEMOGLOBIN [id number] 00:00:00 Test Item Value Reference Range Interpretation Comments HEMOGLOBIN A1c (test code = 39431) 8.0 % LIPID [id number] 00:00:00 Test Item Value Reference Range Interpretation Comments CHOLESTEROL (test code = 2210) 183 MG/DL TRIGLYCERIDES (test code = 2232) 126 MG/DL HDL CHOLESTEROL (test code = 2220) 67 MG/DL CALC LDL CHOL (test code = 2237) 91 MG/DL RISK RATIO LDL/HDL (test code = 1.36 RATIO 2238) LIPID [id number] 00:00:00 Test Item Value Reference Range Interpretation Comments CHOLESTEROL (test code = 2210) 183 MG/DL TRIGLYCERIDES (test code = 2232) 126 MG/DL HDL CHOLESTEROL (test code = 2220) 67 MG/DL CALC LDL CHOL (test code = 2237) 91 MG/DL RISK RATIO LDL/HDL (test code = 1.36 RATIO 2238) COMPREHENSIVE METABOLIC [id number] 00:00:00 Test Item Value Reference Range Interpretation Comments GLUCOSE (test code = 2217) 220 MG/DL BUN (test code = 2208) 55 MG/DL CREATININE (test code = 2214) 3.71 MG/DL eGFR AMER. (test code 15 ML/MIN/1.73 = 26460) eGFR NON- AMER. (test 13 ML/MIN/1.73 code = 89474) CALC BUN/CREAT (test code = 15 RATIO [...] code = 2219) 15 U/L COMPREHENSIVE METABOLIC [id number] 00:00:00 Test Item Value Reference Range Interpretation Comments GLUCOSE (test code = 2217) 220 MG/DL BUN (test code = 2208) 55 MG/DL CREATININE (test code = 2214) 3.71 MG/DL eGFR AMER. (test code 15 ML/MIN/1.73 = 12867) eGFR NON- AMER. (test 13 ML/MIN/1.73 code = 85927) CALC BUN/CREAT (test code = 15 RATIO [...] = 2219) 15 U/L MICROALBUMIN/CREATININE, RANDOM AND [id number] 00:00:00 Test Item Value Reference Range Interpretation Comments CREATININE, URINE, CONC. (test 38.3 MG/DL code = 2072) ALBUMIN, URINE, RANDOM (test code 275.7 MG/DL = 47503) CALC ALBUMIN/CREAT, RND (test 7198 MG/G code = 01436) MICROALBUMIN/CREATININE, RANDOM AND [id number] 00:00:00 Test Item Value Reference Range Interpretation Comments CREATININE, URINE, CONC. (test 38.3 MG/DL code = 2072) ALBUMIN, URINE, RANDOM (test code 275.7 MG/DL = 14198) CALC ALBUMIN/CREAT, RND (test 7198 MG/G code = 13760) CBC W/AUTO [id number] 00:00:00 Test Item Value Reference Range Interpretation [...] code = 1015) 233 K/UL CBC W/AUTO [id number] 00:00:00 Test Item Value Reference Range Interpretation [...] code = 1015) 233 K/UL CBC W/AUTO [id number] 00:00:00 Test Item Value Reference Range Interpretation [...] code = 1015) 233 K/UL CBC W/AUTO [id number] 00:00:00 Test Item Value Reference Range Interpretation [...] code = 1015) 233 K/UL CBC W/AUTO [id number] 00:00:00 Test Item Value Reference Range Interpretation [...] COUNT (test code = 1015) 233 K/UL [id number] 00:00:00 Test Item Value Reference Range Interpretation Comments TSH, THIRD GENERATION (test code 2.370 UIU/ML = 2821) [id number] 00:00:00 Test Item Value Reference Range Interpretation Comments TSH, THIRD GENERATION (test code 2.370 UIU/ML = 2821) [id number] 00:00:00 Test Item Value Reference Range Interpretation Comments TSH, THIRD GENERATION (test code 2.370 UIU/ML = 2821) VITAMIN D, 25 [id number] 00:00:00 Test Item Value Reference Range Interpretation Comments VITAMIN D, 25 OH (test code = 4958) 31 NG/ML [id number] 00:00:00 Test Item Value Reference Range Interpretation Comments TSH, THIRD GENERATION (test code 2.370 UIU/ML = 2821) VITAMIN D, 25 [id number] 00:00:00 Test Item Value Reference Range Interpretation Comments VITAMIN D, 25 OH (test code = 4958) 31 NG/ML HEMOGLOBIN [id number] 00:00:00 Test Item Value Reference Range Interpretation Comments HEMOGLOBIN A1c (test code = 69873) 8.0 % HEMOGLOBIN [id number] 00:00:00 Test Item Value Reference Range Interpretation Comments HEMOGLOBIN A1c (test code = 80296) 8.0 % HEMOGLOBIN [id number] 00:00:00 Test Item Value Reference Range Interpretation Comments HEMOGLOBIN A1c (test code = 99401) 8.0 % LIPID [id number] 00:00:00 Test Item Value Reference Range Interpretation Comments CHOLESTEROL (test code = 2210) 183 MG/DL TRIGLYCERIDES (test code = 2232) 126 MG/DL HDL CHOLESTEROL (test code = 2220) 67 MG/DL CALC LDL CHOL (test code = 2237) 91 MG/DL RISK RATIO LDL/HDL (test code = 1.36 RATIO 2238) LIPID [id number] 00:00:00 Test Item Value Reference Range Interpretation Comments CHOLESTEROL (test code = 2210) 183 MG/DL TRIGLYCERIDES (test code = 2232) 126 MG/DL HDL CHOLESTEROL (test code = 2220) 67 MG/DL CALC LDL CHOL (test code = 2237) 91 MG/DL RISK RATIO LDL/HDL (test code = 1.36 RATIO 2238) COMPREHENSIVE METABOLIC [id number] 00:00:00 Test Item Value Reference Range Interpretation Comments GLUCOSE (test code = 2217) 220 MG/DL BUN (test code = 2208) 55 MG/DL CREATININE (test code = 2214) 3.71 MG/DL eGFR AMER. (test code 15 ML/MIN/1.73 = 51845) eGFR NON- AMER. (test 13 ML/MIN/1.73 code = 56612) CALC BUN/CREAT (test code = 15 RATIO [...] code = 2219) 15 U/L COMPREHENSIVE METABOLIC [id number] 00:00:00 Test Item Value Reference Range Interpretation Comments GLUCOSE (test code = 2217) 220 MG/DL BUN (test code = 2208) 55 MG/DL CREATININE (test code = 2214) 3.71 MG/DL eGFR AMER. (test code 15 ML/MIN/1.73 = 46527) eGFR NON- AMER. (test 13 ML/MIN/1.73 code = 22128) CALC BUN/CREAT (test code = 15 RATIO [...] = 2219) 15 U/L MICROALBUMIN/CREATININE, RANDOM AND [id number] 00:00:00 Test Item Value Reference Range Interpretation Comments CREATININE, URINE, CONC. (test 38.3 MG/DL code = 2072) ALBUMIN, URINE, RANDOM (test code 275.7 MG/DL = 34807) CALC ALBUMIN/CREAT, RND (test 7198 MG/G code = 28109) MICROALBUMIN/CREATININE, RANDOM AND [id number] 00:00:00 Test Item Value Reference Range Interpretation Comments CREATININE, URINE, CONC. (test 38.3 MG/DL code = 2072) ALBUMIN, URINE, RANDOM (test code 275.7 MG/DL = 79641) CALC ALBUMIN/CREAT, RND (test 7198 MG/G code = 32573) [id number] 00:00:00 Test Item Value Reference Range Interpretation Comments TSH, THIRD GENERATION (test code 2.370 UIU/ML = 2821) VITAMIN D, 25 [id number] 00:00:00 Test Item Value Reference Range Interpretation Comments VITAMIN D, 25 OH (test code = 4958) 31 NG/ML HEMOGLOBIN [id number] 00:00:00 Test Item Value Reference Range Interpretation Comments HEMOGLOBIN A1c (test code = 47186) 8.0 % HEMOGLOBIN [id number] 00:00:00 Test Item Value Reference Range Interpretation Comments HEMOGLOBIN A1c (test code = 92153) 8.0 % LIPID [id number] 00:00:00 Test Item Value Reference Range Interpretation Comments CHOLESTEROL (test code = 2210) 183 MG/DL TRIGLYCERIDES (test code = 2232) 126 MG/DL HDL CHOLESTEROL (test code = 2220) 67 MG/DL CALC LDL CHOL (test code = 2237) 91 MG/DL RISK RATIO LDL/HDL (test code = 1.36 RATIO 2238) COMPREHENSIVE METABOLIC [id number] 00:00:00 Test Item Value Reference Range Interpretation Comments GLUCOSE (test code = 2217) 220 MG/DL BUN (test code = 2208) 55 MG/DL CREATININE (test code = 2214) 3.71 MG/DL eGFR AMER. (test code 15 ML/MIN/1.73 = 74854) eGFR NON- AMER. (test 13 ML/MIN/1.73 code = 09137) CALC BUN/CREAT (test code = 15 RATIO [...] CALC GLOBULIN (test code = 3.3 G/DL 224) CALC A/G RATIO (test code = 1.2 RATIO 223) BILIRUBIN, TOTAL (test code = 0.3 MG/DL 2206) ALKALINE PHOSPHATASE (test 202 U/L code = 2204) AST (test code = 2218) 26 U/L ALT (test code = 2219) 15 U/L MICROALBUMIN/CREATININE, RANDOM AND [id number] 00:00:00 Test Item Value Reference Range Interpretation Comments CREATININE, URINE, CONC. (test 38.3 MG/DL code = 2072) ALBUMIN, URINE, RANDOM (test code 275.7 MG/DL = 31149) CALC ALBUMIN/CREAT, RND (test 7198 MG/G code = 22867) CBC W/AUTO [id number] 00:00:00 Test Item Value Reference Range Interpretation [...] code = 1015) 233 K/UL CBC W/AUTO [id number] 00:00:00 Test Item Value Reference Range Interpretation [...] code = 1015) 233 K/UL CBC W/AUTO [id number] 00:00:00 Test Item Value Reference Range Interpretation [...] COUNT (test code = 1015) 233 K/UL [id number] 00:00:00 Test Item Value Reference Range Interpretation Comments TSH, THIRD GENERATION (test code 2.370 UIU/ML = 2821) [id number] 00:00:00 Test Item Value Reference Range Interpretation Comments TSH, THIRD GENERATION (test code 2.370 UIU/ML = 2821) [id number] 00:00:00 Test Item Value Reference Range Interpretation Comments TSH, THIRD GENERATION (test code 2.370 UIU/ML = 2821) VITAMIN D, 25 [id number] 00:00:00 Test Item Value Reference Range Interpretation Comments VITAMIN D, 25 OH (test code = 4958) 31 NG/ML SCR MAMM BILATERAL DAVIS CAD [id number] 15:42:55 - SCR MAMM BILATERAL DAVIS CAD DIGITALBILATERAL DIGITAL SCREENING MAMMOGRAM 3D/2D WITH CAD: 8CLINICAL: Asymptomatic. Digital breast tomosynthesis was performed in addition to routine CC and MLO views. Current mammographic images were evaluated by either a [employer] M-Vu or a [employer] Image[employer]erCAD (computer aided detection system). No prior exams were available for comparison. There are scattered fibroglandular tissues in both breasts. Symmetric mild bilateral trabecula and skin thickening noted.No suspicious mass, architectural distortion, malignant type calcification, or lymph node abnormality detected. IMPRESSION: NEGATIVEThere is no mammographic evidence of malignancy. Resume annual screening mammography in one year. Marcia Norris M.D. el/:04/27/2018 15:42:55 Saxophone Teacher: Jackelin Rocha MM, [facility] Mammographyletter sent: BIRADS 1-2 Normal Mammogram BI-RADS: 1 NegativeCOMPREHENSIVE METABOLIC [id number] 00:00:00 Test Item Value Reference Range Interpretation Comments GLUCOSE (test code = 2217) 337 MG/DL BUN (test code = 2208) 49 MG/DL CREATININE (test code = 2214) 3.21 MG/DL eGFR AMER. (test code 17 ML/MIN/1.73 = 53033) eGFR NON- AMER. (test 15 ML/MIN/1.73 code = 22521) CALC BUN/CREAT (test code = 15 RATIO [...] code = 2219) 17 U/L COMPREHENSIVE METABOLIC [id number] 00:00:00 Test Item Value Reference Range Interpretation Comments GLUCOSE (test code = 2217) 337 MG/DL BUN (test code = 2208) 49 MG/DL CREATININE (test code = 2214) 3.21 MG/DL eGFR AMER. (test code 17 ML/MIN/1.73 = 25922) eGFR NON- AMER. (test 15 ML/MIN/1.73 code = 11736) CALC BUN/CREAT (test code = 15 RATIO [...] (test code = 2219) 17 U/L HEMOGLOBIN [id number] 00:00:00 Test Item Value Reference Range Interpretation Comments HEMOGLOBIN A1c (test code = 64905) 8.2 % HEMOGLOBIN [id number] 00:00:00 Test Item Value Reference Range Interpretation Comments HEMOGLOBIN A1c (test code = 66684) 8.2 % HEMOGLOBIN [id number] 00:00:00 Test Item Value Reference Range Interpretation Comments HEMOGLOBIN A1c (test code = 28182) 8.2 % [id number] 00:00:00 Test Item Value Reference Range Interpretation Comments TSH, THIRD GENERATION (test code 1.510 UIU/ML = 2821) [id number] 00:00:00 Test Item Value Reference Range Interpretation Comments TSH, THIRD GENERATION (test code 1.510 UIU/ML = 2821) [id number] 00:00:00 Test Item Value Reference Range Interpretation Comments TSH, THIRD GENERATION (test code 1.510 UIU/ML = 2821) COMPREHENSIVE METABOLIC [id number] 00:00:00 Test Item Value Reference Range Interpretation Comments GLUCOSE (test code = 2217) 337 MG/DL BUN (test code = 2208) 49 MG/DL CREATININE (test code = 2214) 3.21 MG/DL eGFR AMER. (test code 17 ML/MIN/1.73 = 65671) eGFR NON- AMER. (test 15 ML/MIN/1.73 code = 99376) CALC BUN/CREAT (test code = 15 RATIO [...] code = 2219) 17 U/L COMPREHENSIVE METABOLIC [id number] 00:00:00 Test Item Value Reference Range Interpretation Comments GLUCOSE (test code = 2217) 337 MG/DL BUN (test code = 2208) 49 MG/DL CREATININE (test code = 2214) 3.21 MG/DL eGFR AMER. (test code 17 ML/MIN/1.73 = 66820) eGFR NON- AMER. (test 15 ML/MIN/1.73 code = 03960) CALC BUN/CREAT (test code = 15 RATIO [...] (test code = 2219) 17 U/L HEMOGLOBIN [id number] 00:00:00 Test Item Value Reference Range Interpretation Comments HEMOGLOBIN A1c (test code = 65323) 8.2 % HEMOGLOBIN [id number] 00:00:00 Test Item Value Reference Range Interpretation Comments HEMOGLOBIN A1c (test code = 40170) 8.2 % HEMOGLOBIN [id number] 00:00:00 Test Item Value Reference Range Interpretation Comments HEMOGLOBIN A1c (test code = 55312) 8.2 % [id number] 00:00:00 Test Item Value Reference Range Interpretation Comments TSH, THIRD GENERATION (test code 1.510 UIU/ML = 2821) [id number] 00:00:00 Test Item Value Reference Range Interpretation Comments TSH, THIRD GENERATION (test code 1.510 UIU/ML = 2821) [id number] 00:00:00 Test Item Value Reference Range Interpretation Comments TSH, THIRD GENERATION (test code 1.510 UIU/ML = 2821) COMPREHENSIVE METABOLIC [id number] 00:00:00 Test Item Value Reference Range Interpretation Comments GLUCOSE (test code = 2217) 337 MG/DL BUN (test code = 2208) 49 MG/DL CREATININE (test code = 2214) 3.21 MG/DL eGFR AMER. (test code 17 ML/MIN/1.73 = 66908) eGFR NON- AMER. (test 15 ML/MIN/1.73 code = 96934) CALC BUN/CREAT (test code = 15 RATIO [...] code = 2219) 17 U/L COMPREHENSIVE METABOLIC [id number] 00:00:00 Test Item Value Reference Range Interpretation Comments GLUCOSE (test code = 2217) 337 MG/DL BUN (test code = 2208) 49 MG/DL CREATININE (test code = 2214) 3.21 MG/DL eGFR AMER. (test code 17 ML/MIN/1.73 = 11514) eGFR NON- AMER. (test 15 ML/MIN/1.73 code = 99576) CALC BUN/CREAT (test code = 15 RATIO [...] BILIRUBIN, TOTAL (test code = <0.2 MG/DL 2207) ALKALINE PHOSPHATASE (test 186 U/L code = 2204) AST (test code = 2218) 29 U/L ALT (test code = 2219) 17 U/L HEMOGLOBIN [id number] 00:00:00 Test Item Value Reference Range Interpretation Comments HEMOGLOBIN A1c (test code = 77715) 8.2 % HEMOGLOBIN [id number] 00:00:00 Test Item Value Reference Range Interpretation Comments HEMOGLOBIN A1c (test code = 88050) 8.2 % HEMOGLOBIN [id number] 00:00:00 Test Item Value Reference Range Interpretation Comments HEMOGLOBIN A1c (test code = 91504) 8.2 % [id number] 00:00:00 Test Item Value Reference Range Interpretation Comments TSH, THIRD GENERATION (test code 1.510 UIU/ML = 2821) [id number] 00:00:00 Test Item Value Reference Range Interpretation Comments TSH, THIRD GENERATION (test code 1.510 UIU/ML = 2821) [id number] 00:00:00 Test Item Value Reference Range Interpretation Comments TSH, THIRD GENERATION (test code 1.510 UIU/ML = 2821) COMPREHENSIVE METABOLIC [id number] 00:00:00 Test Item Value Reference Range Interpretation Comments GLUCOSE (test code = 2217) 337 MG/DL BUN (test code = 2208) 49 MG/DL CREATININE (test code = 2214) 3.21 MG/DL eGFR AMER. (test code 17 ML/MIN/1.73 = 07502) eGFR NON- AMER. (test 15 ML/MIN/1.73 code = 93112) CALC BUN/CREAT (test code = 15 RATIO [...] code = 2219) 17 U/L COMPREHENSIVE METABOLIC [id number] 00:00:00 Test Item Value Reference Range Interpretation Comments GLUCOSE (test code = 2217) 337 MG/DL BUN (test code = 2208) 49 MG/DL CREATININE (test code = 2214) 3.21 MG/DL eGFR AMER. (test code 17 ML/MIN/1.73 = 47882) eGFR NON- AMER. (test 15 ML/MIN/1.73 code = 75340) CALC BUN/CREAT (test code = 15 RATIO [...] code = 2219) 17 U/L COMPREHENSIVE METABOLIC [id number] 00:00:00 Test Item Value Reference Range Interpretation Comments GLUCOSE (test code = 2217) 337 MG/DL BUN (test code = 2208) 49 MG/DL CREATININE (test code = 2214) 3.21 MG/DL eGFR AMER. (test code 17 ML/MIN/1.73 = 66702) eGFR NON- AMER. (test 15 ML/MIN/1.73 code = 35917) CALC BUN/CREAT (test code = 15 RATIO [...] (test code = 2219) 17 U/L HEMOGLOBIN [id number] 00:00:00 Test Item Value Reference Range Interpretation Comments HEMOGLOBIN A1c (test code = 31130) 8.2 % HEMOGLOBIN [id number] 00:00:00 Test Item Value Reference Range Interpretation Comments HEMOGLOBIN A1c (test code = 55566) 8.2 % HEMOGLOBIN [id number] 00:00:00 Test Item Value Reference Range Interpretation Comments HEMOGLOBIN A1c (test code = 36643) 8.2 % HEMOGLOBIN [id number] 00:00:00 Test Item Value Reference Range Interpretation Comments HEMOGLOBIN A1c (test code = 65649) 8.2 % [id number] 00:00:00 Test Item Value Reference Range Interpretation Comments TSH, THIRD GENERATION (test code 1.510 UIU/ML = 2821) [id number] 00:00:00 Test Item Value Reference Range Interpretation Comments TSH, THIRD GENERATION (test code 1.510 UIU/ML = 2821) [id number] 00:00:00 Test Item Value Reference Range Interpretation Comments TSH, THIRD GENERATION (test code 1.510 UIU/ML = 2821) HEMOGLOBIN [id number] 00:00:00 Test Item Value Reference Range Interpretation Comments HEMOGLOBIN A1c (test code = 58498) 8.2 % [id number] 00:00:00 Test Item Value Reference Range Interpretation Comments TSH, THIRD GENERATION (test code 1.510 UIU/ML = 2821) [id number] 00:00:00 Test Item Value Reference Range Interpretation Comments TSH, THIRD GENERATION (test code 1.510 UIU/ML = 2821) COMPREHENSIVE METABOLIC [id number] 00:00:00 Test Item Value Reference Range Interpretation Comments GLUCOSE (test code = 2217) 337 MG/DL BUN (test code = 2208) 49 MG/DL CREATININE (test code = 2214) 3.21 MG/DL eGFR AMER. (test code 17 ML/MIN/1.73 = 15924) eGFR NON- AMER. (test 15 ML/MIN/1.73 code = 14888) CALC BUN/CREAT (test code = 15 RATIO [...] code = 2219) 17 U/L COMPREHENSIVE METABOLIC [id number] 00:00:00 Test Item Value Reference Range Interpretation Comments GLUCOSE (test code = 2217) 337 MG/DL BUN (test code = 2208) 49 MG/DL CREATININE (test code = 2214) 3.21 MG/DL eGFR AMER. (test code 17 ML/MIN/1.73 = 10554) eGFR NON- AMER. (test 15 ML/MIN/1.73 code = 58264) CALC BUN/CREAT (test code = 15 RATIO [...] (test code = 2219) 17 U/L HEMOGLOBIN [id number] 00:00:00 Test Item Value Reference Range Interpretation Comments HEMOGLOBIN A1c (test code = 77634) 8.2 % HEMOGLOBIN [id number] 00:00:00 Test Item Value Reference Range Interpretation Comments HEMOGLOBIN A1c (test code = 43599) 8.2 % HEMOGLOBIN [id number] 00:00:00 Test Item Value Reference Range Interpretation Comments HEMOGLOBIN A1c (test code = 72563) 8.2 % [id number] 00:00:00 Test Item Value Reference Range Interpretation Comments TSH, THIRD GENERATION (test code 1.510 UIU/ML = 2821) [id number] 00:00:00 Test Item Value Reference Range Interpretation Comments TSH, THIRD GENERATION (test code 1.510 UIU/ML = 2821) [id number] 00:00:00 Test Item Value Reference Range Interpretation Comments TSH, THIRD GENERATION (test code 1.510 UIU/ML = 2821) PAP TEST, THINPREP, [id number] 00:00:00 Test Item Value Reference Range Interpretation Comments SOURCE: (test code = Cervical/Endocervical 8001) SLIDES: (test code = 1 8011) LMP: (test code = SEE NOTE 8021) SPECIMEN ADEQUACY: (NOTE) (test code = 08154) INTERPRETATION: (test NO EPITHELIAL code = 82786) ABNORMALITY SEE BELOW KEG HEADER: MORENO (test code = 8101) YORDAN KAUR(ASCP)IAC LOCATION: (test code (NOTE) = 39850) CPT: (test code = (NOTE) 8140) PAP TEST, THINPREP, [id number] 00:00:00 Test Item Value Reference Range Interpretation Comments SOURCE: (test code = Cervical/Endocervical 8001) SLIDES: (test code = 1 8011) LMP: (test code = SEE NOTE 8021) SPECIMEN ADEQUACY: (NOTE) (test code = 77899) INTERPRETATION: (test NO EPITHELIAL code = 58159) ABNORMALITY SEE BELOW KEG HEADER: MORENO (test code = 8101) YORDAN KAUR(ASCP)IAC LOCATION: (test code (NOTE) = 24602) CPT: (test code = (NOTE) 8140) HPV HIGH RISK WITH GENOTYPE, [id number] 00:00:00 Test Item Value Reference Range Interpretation Comments HPV HIGH RISK INTERP (test code = NEGATIVE 53142) HPV 16 (test code = 61300) NEGATIVE HPV 18 (test code = 16293) NEGATIVE HPV, HR, OTHER GENOTYPES (test code NEGATIVE = 10764) HPV HIGH RISK WITH GENOTYPE, [id number] 00:00:00 Test Item Value Reference Range Interpretation Comments HPV HIGH RISK INTERP (test code = NEGATIVE 63971) HPV 16 (test code = 99044) NEGATIVE HPV 18 (test code = 16152) NEGATIVE HPV, HR, OTHER GENOTYPES (test code NEGATIVE = 93876) PAP TEST, THINPREP, [id number] 00:00:00 Test Item Value Reference Range Interpretation Comments SOURCE: (test code = Cervical/Endocervical 8001) SLIDES: (test code = 1 8011) LMP: (test code = SEE NOTE 8021) SPECIMEN ADEQUACY: (NOTE) (test code = 29459) INTERPRETATION: (test NO EPITHELIAL code = 51208) ABNORMALITY SEE BELOW KEG HEADER: MORENO (test code = 8101) YORDAN KAUR(ASCP)IAC LOCATION: (test code (NOTE) = 73217) CPT: (test code = (NOTE) 8140) PAP TEST, THINPREP, [id number] 00:00:00 Test Item Value Reference Range Interpretation Comments SOURCE: (test code = Cervical/Endocervical 8001) SLIDES: (test code = 1 8011) LMP: (test code = SEE NOTE 8021) SPECIMEN ADEQUACY: (NOTE) (test code = 59013) INTERPRETATION: (test NO EPITHELIAL code = 17916) ABNORMALITY SEE BELOW KEG HEADER: MORENO (test code = 8101) YORDAN KAUR(ASCP)IAC LOCATION: (test code (NOTE) = 30838) CPT: (test code = (NOTE) 8140) HPV HIGH RISK WITH GENOTYPE, [id number] 00:00:00 Test Item Value Reference Range Interpretation Comments HPV HIGH RISK INTERP (test code = NEGATIVE 85308) HPV 16 (test code = 94073) NEGATIVE HPV 18 (test code = 01344) NEGATIVE HPV, HR, OTHER GENOTYPES (test code NEGATIVE = 16969) HPV HIGH RISK WITH GENOTYPE, [id number] 00:00:00 Test Item Value Reference Range Interpretation Comments HPV HIGH RISK INTERP (test code = NEGATIVE 93853) HPV 16 (test code = 84326) NEGATIVE HPV 18 (test code = 89017) NEGATIVE HPV, HR, OTHER GENOTYPES (test code NEGATIVE = 01764) PAP TEST, THINPREP, [id number] 00:00:00 Test Item Value Reference Range Interpretation Comments SOURCE: (test code = Cervical/Endocervical 8001) SLIDES: (test code = 1 8011) LMP: (test code = SEE NOTE 8021) SPECIMEN ADEQUACY: (NOTE) (test code = 45129) INTERPRETATION: (test NO EPITHELIAL code = 69842) ABNORMALITY SEE BELOW KEG HEADER: MORENO (test code = 8101) PARCHERCT(ASCP)IAC LOCATION: (test code (NOTE) = 51271) CPT: (test code = (NOTE) 8140) PAP TEST, THINPREP, [id number] 00:00:00 Test Item Value Reference Range Interpretation Comments SOURCE: (test code = Cervical/Endocervical 8001) SLIDES: (test code = 1 8011) LMP: (test code = SEE NOTE 8021) SPECIMEN ADEQUACY: (NOTE) (test code = 98514) INTERPRETATION: (test NO EPITHELIAL code = 86958) ABNORMALITY SEE BELOW KEG HEADER: MORENO (test code = 8101) PARCHER,CT(ASCP)IAC LOCATION: (test code (NOTE) = 61984) CPT: (test code = (NOTE) 8140) HPV HIGH RISK WITH GENOTYPE, [id number] 00:00:00 Test Item Value Reference Range Interpretation Comments HPV HIGH RISK INTERP (test code = NEGATIVE 50516) HPV 16 (test code = 88867) NEGATIVE HPV 18 (test code = 38153) NEGATIVE HPV, HR, OTHER GENOTYPES (test code NEGATIVE = 85468) HPV HIGH RISK WITH GENOTYPE, [id number] 00:00:00 Test Item Value Reference Range Interpretation Comments HPV HIGH RISK INTERP (test code = NEGATIVE 86590) HPV 16 (test code = 54161) NEGATIVE HPV 18 (test code = 61375) NEGATIVE HPV, HR, OTHER GENOTYPES (test code NEGATIVE = 49051) PAP TEST, THINPREP, [id number] 00:00:00 Test Item Value Reference Range Interpretation Comments SOURCE: (test code = Cervical/Endocervical 8001) SLIDES: (test code = 1 8011) LMP: (test code = SEE NOTE 8021) SPECIMEN ADEQUACY: (NOTE) (test code = 77076) INTERPRETATION: (test NO EPITHELIAL code = 79949) ABNORMALITY SEE BELOW KEG HEADER: MORENO (test code = 8101) PARHERMANCT(ASCP)IAC LOCATION: (test code (NOTE) = 45706) CPT: (test code = (NOTE) 8140) PAP TEST, THINPREP, [id number] 00:00:00 Test Item Value Reference Range Interpretation Comments SOURCE: (test code = Cervical/Endocervical 8001) SLIDES: (test code = 1 8011) LMP: (test code = SEE NOTE 8021) SPECIMEN ADEQUACY: (NOTE) (test code = 02701) INTERPRETATION: (test NO EPITHELIAL code = 52129) ABNORMALITY SEE BELOW KEG HEADER: MORENO (test code = 8101) PARHERMANCT(ASCP)IAC LOCATION: (test code (NOTE) = 61069) CPT: (test code = (NOTE) 8140) PAP TEST, THINPREP, [id number] 00:00:00 Test Item Value Reference Range Interpretation Comments SOURCE: (test code = Cervical/Endocervical 8001) SLIDES: (test code = 1 8011) LMP: (test code = SEE NOTE 8021) SPECIMEN ADEQUACY: (NOTE) (test code = 03793) INTERPRETATION: (test NO EPITHELIAL code = 11697) ABNORMALITY SEE BELOW KEG HEADER: MORENO (test code = 8101) PARHERMANCT(ASCP)IAC LOCATION: (test code (NOTE) = 57479) CPT: (test code = (NOTE) 8140) HPV HIGH RISK WITH GENOTYPE, [id number] 00:00:00 Test Item Value Reference Range Interpretation Comments HPV HIGH RISK INTERP (test code = NEGATIVE 87658) HPV 16 (test code = 01228) NEGATIVE HPV 18 (test code = 43841) NEGATIVE HPV, HR, OTHER GENOTYPES (test code NEGATIVE = 33744) HPV HIGH RISK WITH GENOTYPE, [id number] 00:00:00 Test Item Value Reference Range Interpretation Comments HPV HIGH RISK INTERP (test code = NEGATIVE 35841) HPV 16 (test code = 65227) NEGATIVE HPV 18 (test code = 36172) NEGATIVE HPV, HR, OTHER GENOTYPES (test code NEGATIVE = 35553) HPV HIGH RISK WITH GENOTYPE, [id number] 00:00:00 Test Item Value Reference Range Interpretation Comments HPV HIGH RISK INTERP (test code = NEGATIVE 87543) HPV 16 (test code = 72800) NEGATIVE HPV 18 (test code = 48378) NEGATIVE HPV, HR, OTHER GENOTYPES (test code NEGATIVE = 94048) PAP TEST, THINPREP, [id number] 00:00:00 Test Item Value Reference Range Interpretation Comments SOURCE: (test code = Cervical/Endocervical 8001) SLIDES: (test code = 1 8011) LMP: (test code = SEE NOTE 8021) SPECIMEN ADEQUACY: (NOTE) (test code = 22750) INTERPRETATION: (test NO EPITHELIAL code = 39746) ABNORMALITY SEE BELOW KEG HEADER: MORENO (test code = 8101) YORDAN KAUR(ASCP)IAC LOCATION: (test code (NOTE) = 19569) CPT: (test code = (NOTE) 8140) PAP TEST, THINPREP, [id number] 00:00:00 Test Item Value Reference Range Interpretation Comments SOURCE: (test code = Cervical/Endocervical 8001) SLIDES: (test code = 1 8011) LMP: (test code = SEE NOTE 8021) SPECIMEN ADEQUACY: (NOTE) (test code = 12503) INTERPRETATION: (test NO EPITHELIAL code = 07377) ABNORMALITY SEE BELOW KEG HEADER: MORENO (test code = 8101) YORDAN KAUR(ASCP)IAC LOCATION: (test code (NOTE) = 35785) CPT: (test code = (NOTE) 8140) HPV HIGH RISK WITH GENOTYPE, [id number] 00:00:00 Test Item Value Reference Range Interpretation Comments HPV HIGH RISK INTERP (test code = NEGATIVE 10397) HPV 16 (test code = 61906) NEGATIVE HPV 18 (test code = 10333) NEGATIVE HPV, HR, OTHER GENOTYPES (test code NEGATIVE = 30055) HPV HIGH RISK WITH GENOTYPE, [id number] 00:00:00 Test Item Value Reference Range Interpretation Comments HPV HIGH RISK INTERP (test code = NEGATIVE 92110) HPV 16 (test code = 93666) NEGATIVE HPV 18 (test code = 73338) NEGATIVE HPV, HR, OTHER GENOTYPES (test code NEGATIVE = 81312) VITAMIN D, 25 [id number] 00:00:00 Test Item Value Reference Range Interpretation Comments VITAMIN D, 25 OH (test code = 4958) 19 NG/ML VITAMIN D, 25 [id number] 00:00:00 Test Item Value Reference Range Interpretation Comments VITAMIN D, 25 OH (test code = 4958) 19 NG/ML BASIC METABOLIC [id number] 00:00:00 Test Item Value Reference Range Interpretation Comments GLUCOSE (test code = 2217) 279 MG/DL BUN (test code = 2208) 43 MG/DL CREATININE (test code = 2214) 2.63 MG/DL eGFR AMER. (test code 22 ML/MIN/1.73 = 39829) eGFR NON- AMER. (test 19 ML/MIN/1.73 code = 01767) SODIUM (test code = 2231) 140 MEQ/L POTASSIUM (test code = 2228) 5.1 MEQ/L CHLORIDE (test code = 2215) 101 MEQ/L CARBON DIOXIDE (test code = 26 MEQ/L 2206) CALCIUM (test code = 2209) 8.9 MG/DL BASIC METABOLIC [id number] 00:00:00 Test Item Value Reference Range Interpretation Comments GLUCOSE (test code = 2217) 279 MG/DL BUN (test code = 2208) 43 MG/DL CREATININE (test code = 2214) 2.63 MG/DL eGFR AMER. (test code 22 ML/MIN/1.73 = 28422) eGFR NON- AMER. (test 19 ML/MIN/1.73 code = 73945) SODIUM (test code = 2231) 140 MEQ/L POTASSIUM (test code = 2228) 5.1 MEQ/L CHLORIDE (test code = 2215) 101 MEQ/L CARBON DIOXIDE (test code = 26 MEQ/L 2206) CALCIUM (test code = 2209) 8.9 MG/DL INTACT [id number] 00:00:00 Test Item Value Reference Range Interpretation Comments INTACT PTH (test code = 5005) 126 PG/ML INTACT [id number] 00:00:00 Test Item Value Reference Range Interpretation Comments INTACT PTH (test code = 5005) 126 PG/ML INTACT [id number] 00:00:00 Test Item Value Reference Range Interpretation Comments INTACT PTH (test code = 5005) 126 PG/ML PROTEIN/CREATININE RATIO, [id number] 00:00:00 Test Item Value Reference Range Interpretation Comments PROTEIN, URINE, CONC. (test 682 MG/DL code = 2104) CREATININE, URINE, CONC. (test 112.6 MG/DL code = 2072) CALC PROTEIN/CREATININE (test 6057 MG/GCREAT code = 2158) PROTEIN/CREATININE RATIO, [id number] 00:00:00 Test Item Value Reference Range Interpretation Comments PROTEIN, URINE, CONC. (test 682 MG/DL code = 2104) CREATININE, URINE, CONC. (test 112.6 MG/DL code = 2072) CALC PROTEIN/CREATININE (test 6057 MG/GCREAT code = 2158) VITAMIN D, 25 [id number] 00:00:00 Test Item Value Reference Range Interpretation Comments VITAMIN D, 25 OH (test code = 4958) 19 NG/ML VITAMIN D, 25 [id number] 00:00:00 Test Item Value Reference Range Interpretation Comments VITAMIN D, 25 OH (test code = 4958) 19 NG/ML BASIC METABOLIC [id number] 00:00:00 Test Item Value Reference Range Interpretation Comments GLUCOSE (test code = 2217) 279 MG/DL BUN (test code = 2208) 43 MG/DL CREATININE (test code = 2214) 2.63 MG/DL eGFR AMER. (test code 22 ML/MIN/1.73 = 54813) eGFR NON- AMER. (test 19 ML/MIN/1.73 code = 98179) SODIUM (test code = 2231) 140 MEQ/L POTASSIUM (test code = 2228) 5.1 MEQ/L CHLORIDE (test code = 2215) 101 MEQ/L CARBON DIOXIDE (test code = 26 MEQ/L 2206) CALCIUM (test code = 2209) 8.9 MG/DL BASIC METABOLIC [id number] 00:00:00 Test Item Value Reference Range Interpretation Comments GLUCOSE (test code = 2217) 279 MG/DL BUN (test code = 2208) 43 MG/DL CREATININE (test code = 2214) 2.63 MG/DL eGFR AMER. (test code 22 ML/MIN/1.73 = 44502) eGFR NON- AMER. (test 19 ML/MIN/1.73 code = 94008) SODIUM (test code = 2231) 140 MEQ/L POTASSIUM (test code = 2228) 5.1 MEQ/L CHLORIDE (test code = 2215) 101 MEQ/L CARBON DIOXIDE (test code = 26 MEQ/L 2206) CALCIUM (test code = 2209) 8.9 MG/DL INTACT [id number] 00:00:00 Test Item Value Reference Range Interpretation Comments INTACT PTH (test code = 5005) 126 PG/ML INTACT [id number] 00:00:00 Test Item Value Reference Range Interpretation Comments INTACT PTH (test code = 5005) 126 PG/ML INTACT [id number] 00:00:00 Test Item Value Reference Range Interpretation Comments INTACT PTH (test code = 5005) 126 PG/ML PROTEIN/CREATININE RATIO, [id number] 00:00:00 Test Item Value Reference Range Interpretation Comments PROTEIN, URINE, CONC. (test 682 MG/DL code = 2104) CREATININE, URINE, CONC. (test 112.6 MG/DL code = 2072) CALC PROTEIN/CREATININE (test 6057 MG/GCREAT code = 2158) PROTEIN/CREATININE RATIO, [id number] 00:00:00 Test Item Value Reference Range Interpretation Comments PROTEIN, URINE, CONC. (test 682 MG/DL code = 2104) CREATININE, URINE, CONC. (test 112.6 MG/DL code = 2072) CALC PROTEIN/CREATININE (test 6057 MG/GCREAT code = 2158) VITAMIN D, 25 [id number] 00:00:00 Test Item Value Reference Range Interpretation Comments VITAMIN D, 25 OH (test code = 4958) 19 NG/ML VITAMIN D, 25 [id number] 00:00:00 Test Item Value Reference Range Interpretation Comments VITAMIN D, 25 OH (test code = 4958) 19 NG/ML BASIC METABOLIC [id number] 00:00:00 Test Item Value Reference Range Interpretation Comments GLUCOSE (test code = 2217) 279 MG/DL BUN (test code = 2208) 43 MG/DL CREATININE (test code = 2214) 2.63 MG/DL eGFR AMER. (test code 22 ML/MIN/1.73 = 19086) eGFR NON- AMER. (test 19 ML/MIN/1.73 code = 40510) SODIUM (test code = 2231) 140 MEQ/L POTASSIUM (test code = 2228) 5.1 MEQ/L CHLORIDE (test code = 2215) 101 MEQ/L CARBON DIOXIDE (test code = 26 MEQ/L 2206) CALCIUM (test code = 2209) 8.9 MG/DL BASIC METABOLIC [id number] 00:00:00 Test Item Value Reference Range Interpretation Comments GLUCOSE (test code = 2217) 279 MG/DL BUN (test code = 2208) 43 MG/DL CREATININE (test code = 2214) 2.63 MG/DL eGFR AMER. (test code 22 ML/MIN/1.73 = 08681) eGFR NON- AMER. (test 19 ML/MIN/1.73 code = 45933) SODIUM (test code = 2231) 140 MEQ/L POTASSIUM (test code = 2228) 5.1 MEQ/L CHLORIDE (test code = 2215) 101 MEQ/L CARBON DIOXIDE (test code = 26 MEQ/L 2206) CALCIUM (test code = 2209) 8.9 MG/DL INTACT [id number] 00:00:00 Test Item Value Reference Range Interpretation Comments INTACT PTH (test code = 5005) 126 PG/ML INTACT [id number] 00:00:00 Test Item Value Reference Range Interpretation Comments INTACT PTH (test code = 5005) 126 PG/ML INTACT [id number] 00:00:00 Test Item Value Reference Range Interpretation Comments INTACT PTH (test code = 5005) 126 PG/ML PROTEIN/CREATININE RATIO, [id number] 00:00:00 Test Item Value Reference Range Interpretation Comments PROTEIN, URINE, CONC. (test 682 MG/DL code = 2104) CREATININE, URINE, CONC. (test 112.6 MG/DL code = 2072) CALC PROTEIN/CREATININE (test 6057 MG/GCREAT code = 2158) PROTEIN/CREATININE RATIO, [id number] 00:00:00 Test Item Value Reference Range Interpretation Comments PROTEIN, URINE, CONC. (test 682 MG/DL code = 2104) CREATININE, URINE, CONC. (test 112.6 MG/DL code = 2072) CALC PROTEIN/CREATININE (test 6057 MG/GCREAT code = 2158) VITAMIN D, 25 [id number] 00:00:00 Test Item Value Reference Range Interpretation Comments VITAMIN D, 25 OH (test code = 4958) 19 NG/ML VITAMIN D, 25 [id number] 00:00:00 Test Item Value Reference Range Interpretation Comments VITAMIN D, 25 OH (test code = 4958) 19 NG/ML BASIC METABOLIC [id number] 00:00:00 Test Item Value Reference Range Interpretation Comments GLUCOSE (test code = 2217) 279 MG/DL BUN (test code = 2208) 43 MG/DL CREATININE (test code = 2214) 2.63 MG/DL eGFR AMER. (test code 22 ML/MIN/1.73 = 92183) eGFR NON- AMER. (test 19 ML/MIN/1.73 code = 87594) SODIUM (test code = 2231) 140 MEQ/L POTASSIUM (test code = 2228) 5.1 MEQ/L CHLORIDE (test code = 2215) 101 MEQ/L CARBON DIOXIDE (test code = 26 MEQ/L 2206) CALCIUM (test code = 2209) 8.9 MG/DL BASIC METABOLIC [id number] 00:00:00 Test Item Value Reference Range Interpretation Comments GLUCOSE (test code = 2217) 279 MG/DL BUN (test code = 2208) 43 MG/DL CREATININE (test code = 2214) 2.63 MG/DL eGFR AMER. (test code 22 ML/MIN/1.73 = 82415) eGFR NON- AMER. (test 19 ML/MIN/1.73 code = 19372) SODIUM (test code = 2231) 140 MEQ/L POTASSIUM (test code = 2228) 5.1 MEQ/L CHLORIDE (test code = 2215) 101 MEQ/L CARBON DIOXIDE (test code = 26 MEQ/L 2206) CALCIUM (test code = 2209) 8.9 MG/DL INTACT [id number] 00:00:00 Test Item Value Reference Range Interpretation Comments INTACT PTH (test code = 5005) 126 PG/ML BASIC METABOLIC [id number] 00:00:00 Test Item Value Reference Range Interpretation Comments GLUCOSE (test code = 2217) 279 MG/DL BUN (test code = 2208) 43 MG/DL CREATININE (test code = 2214) 2.63 MG/DL eGFR AMER. (test code 22 ML/MIN/1.73 = 86041) eGFR NON- AMER. (test 19 ML/MIN/1.73 code = 86931) SODIUM (test code = 2231) 140 MEQ/L POTASSIUM (test code = 2228) 5.1 MEQ/L CHLORIDE (test code = 2215) 101 MEQ/L CARBON DIOXIDE (test code = 26 MEQ/L 2206) CALCIUM (test code = 2209) 8.9 MG/DL INTACT [id number] 00:00:00 Test Item Value Reference Range Interpretation Comments INTACT PTH (test code = 5005) 126 PG/ML INTACT [id number] 00:00:00 Test Item Value Reference Range Interpretation Comments INTACT PTH (test code = 5005) 126 PG/ML INTACT [id number] 00:00:00 Test Item Value Reference Range Interpretation Comments INTACT PTH (test code = 5005) 126 PG/ML PROTEIN/CREATININE RATIO, [id number] 00:00:00 Test Item Value Reference Range Interpretation Comments PROTEIN, URINE, CONC. (test 682 MG/DL code = 2104) CREATININE, URINE, CONC. (test 112.6 MG/DL code = 2072) CALC PROTEIN/CREATININE (test 6057 MG/GCREAT code = 2158) PROTEIN/CREATININE RATIO, [id number] 00:00:00 Test Item Value Reference Range Interpretation Comments PROTEIN, URINE, CONC. (test 682 MG/DL code = 2104) CREATININE, URINE, CONC. (test 112.6 MG/DL code = 2072) CALC PROTEIN/CREATININE (test 6057 MG/GCREAT code = 2158) VITAMIN D, 25 [id number] 00:00:00 Test Item Value Reference Range Interpretation Comments VITAMIN D, 25 OH (test code = 4958) 19 NG/ML VITAMIN D, 25 [id number] 00:00:00 Test Item Value Reference Range Interpretation Comments VITAMIN D, 25 OH (test code = 4958) 19 NG/ML INTACT [id number] 00:00:00 Test Item Value Reference Range Interpretation Comments INTACT PTH (test code = 5005) 126 PG/ML PROTEIN/CREATININE RATIO, [id number] 00:00:00 Test Item Value Reference Range Interpretation Comments PROTEIN, URINE, CONC. (test 682 MG/DL code = 2104) CREATININE, URINE, CONC. (test 112.6 MG/DL code = 2072) CALC PROTEIN/CREATININE (test 6057 MG/GCREAT code = 2158) VITAMIN D, 25 [id number] 00:00:00 Test Item Value Reference Range Interpretation Comments VITAMIN D, 25 OH (test code = 4958) 19 NG/ML BASIC METABOLIC [id number] 00:00:00 Test Item Value Reference Range Interpretation Comments GLUCOSE (test code = 2217) 279 MG/DL BUN (test code = 2208) 43 MG/DL CREATININE (test code = 2214) 2.63 MG/DL eGFR AMER. (test code 22 ML/MIN/1.73 = 67055) eGFR NON- AMER. (test 19 ML/MIN/1.73 code = 56838) SODIUM (test code = 2231) 140 MEQ/L POTASSIUM (test code = 2228) 5.1 MEQ/L CHLORIDE (test code = 2215) 101 MEQ/L CARBON DIOXIDE (test code = 26 MEQ/L 2206) CALCIUM (test code = 2209) 8.9 MG/DL BASIC METABOLIC [id number] 00:00:00 Test Item Value Reference Range Interpretation Comments GLUCOSE (test code = 2217) 279 MG/DL BUN (test code = 2208) 43 MG/DL CREATININE (test code = 2214) 2.63 MG/DL eGFR AMER. (test code 22 ML/MIN/1.73 = 30293) eGFR NON- AMER. (test 19 ML/MIN/1.73 code = 36469) SODIUM (test code = 2231) 140 MEQ/L POTASSIUM (test code = 2228) 5.1 MEQ/L CHLORIDE (test code = 2215) 101 MEQ/L CARBON DIOXIDE (test code = 26 MEQ/L 2206) CALCIUM (test code = 2209) 8.9 MG/DL INTACT [id number] 00:00:00 Test Item Value Reference Range Interpretation Comments INTACT PTH (test code = 5005) 126 PG/ML INTACT [id number] 00:00:00 Test Item Value Reference Range Interpretation Comments INTACT PTH (test code = 5005) 126 PG/ML INTACT [id number] 00:00:00 Test Item Value Reference Range Interpretation Comments INTACT PTH (test code = 5005) 126 PG/ML PROTEIN/CREATININE RATIO, [id number] 00:00:00 Test Item Value Reference Range Interpretation Comments PROTEIN, URINE, CONC. (test 682 MG/DL code = 2104) CREATININE, URINE, CONC. (test 112.6 MG/DL code = 2072) CALC PROTEIN/CREATININE (test 6057 MG/GCREAT code = 2158) PROTEIN/CREATININE RATIO, [id number] 00:00:00 Test Item Value Reference Range Interpretation Comments PROTEIN, URINE, CONC. (test 682 MG/DL code = 2104) CREATININE, URINE, CONC. (test 112.6 MG/DL code = 2072) CALC PROTEIN/CREATININE (test 6057 MG/GCREAT code = 2158) [id number] 00:00:00 Test Item Value Reference Range Interpretation Comments TSH, THIRD GENERATION (test code 1.300 UIU/ML = 2821) [id number] 00:00:00 Test Item Value Reference Range Interpretation Comments TSH, THIRD GENERATION (test code 1.300 UIU/ML = 2821) [id number] 00:00:00 Test Item Value Reference Range Interpretation Comments TSH, THIRD GENERATION (test code 1.300 UIU/ML = 2821) MICROALBUMIN/CREATININE, RANDOM AND [id number] 00:00:00 Test Item Value Reference Range Interpretation Comments CREATININE, URINE, CONC. (test 33.9 MG/DL code = 2072) ALBUMIN, URINE, RANDOM (test code 196.7 MG/DL = 77174) CALC ALBUMIN/CREAT, RND (test 5802 MG/G code = 88232) MICROALBUMIN/CREATININE, RANDOM AND [id number] 00:00:00 Test Item Value Reference Range Interpretation Comments CREATININE, URINE, CONC. (test 33.9 MG/DL code = 2072) ALBUMIN, URINE, RANDOM (test code 196.7 MG/DL = 63673) CALC ALBUMIN/CREAT, RND (test 5802 MG/G code = 04327) HEMOGLOBIN [id number] 00:00:00 Test Item Value Reference Range Interpretation Comments HEMOGLOBIN A1c (test code = 02831) 9.5 % HEMOGLOBIN [id number] 00:00:00 Test Item Value Reference Range Interpretation Comments HEMOGLOBIN A1c (test code = 62671) 9.5 % HEMOGLOBIN [id number] 00:00:00 Test Item Value Reference Range Interpretation Comments HEMOGLOBIN A1c (test code = 29719) 9.5 % LIPID [id number] 00:00:00 Test Item Value Reference Range Interpretation Comments CHOLESTEROL (test code = 2210) 166 MG/DL TRIGLYCERIDES (test code = 2232) 77 MG/DL HDL CHOLESTEROL (test code = 2220) 71 MG/DL CALC LDL CHOL (test code = 2237) 80 MG/DL RISK RATIO LDL/HDL (test code = 1.12 RATIO 2238) LIPID [id number] 00:00:00 Test Item Value Reference Range Interpretation Comments CHOLESTEROL (test code = 2210) 166 MG/DL TRIGLYCERIDES (test code = 2232) 77 MG/DL HDL CHOLESTEROL (test code = 2220) 71 MG/DL CALC LDL CHOL (test code = 2237) 80 MG/DL RISK RATIO LDL/HDL (test code = 1.12 RATIO 2238) COMPREHENSIVE METABOLIC [id number] 00:00:00 Test Item Value Reference Range Interpretation Comments GLUCOSE (test code = 2217) 241 MG/DL BUN (test code = 2208) 42 MG/DL CREATININE (test code = 2214) 2.62 MG/DL eGFR AMER. (test code 22 ML/MIN/1.73 = 96444) eGFR NON- AMER. (test 19 ML/MIN/1.73 code = 66870) CALC BUN/CREAT (test code = 16 RATIO [...] code = 2219) 10 U/L COMPREHENSIVE METABOLIC [id number] 00:00:00 Test Item Value Reference Range Interpretation Comments GLUCOSE (test code = 2217) 241 MG/DL BUN (test code = 2208) 42 MG/DL CREATININE (test code = 2214) 2.62 MG/DL eGFR AMER. (test code 22 ML/MIN/1.73 = 98012) eGFR NON- AMER. (test 19 ML/MIN/1.73 code = 32570) CALC BUN/CREAT (test code = 16 RATIO [...] = 0.3 MG/DL 7) ALKALINE PHOSPHATASE (test 165 U/L code = 2204) AST (test code = 2218) 20 U/L ALT (test code = 2219) 10 U/L [id number] 00:00:00 Test Item Value Reference Range Interpretation Comments TSH, THIRD GENERATION (test code 1.300 UIU/ML = 2821) [id number] 00:00:00 Test Item Value Reference Range Interpretation Comments TSH, THIRD GENERATION (test code 1.300 UIU/ML = 2821) [id number] 00:00:00 Test Item Value Reference Range Interpretation Comments TSH, THIRD GENERATION (test code 1.300 UIU/ML = 2821) MICROALBUMIN/CREATININE, RANDOM AND [id number] 00:00:00 Test Item Value Reference Range Interpretation Comments CREATININE, URINE, CONC. (test 33.9 MG/DL code = 2072) ALBUMIN, URINE, RANDOM (test code 196.7 MG/DL = 78319) CALC ALBUMIN/CREAT, RND (test 5802 MG/G code = 07988) MICROALBUMIN/CREATININE, RANDOM AND [id number] 00:00:00 Test Item Value Reference Range Interpretation Comments CREATININE, URINE, CONC. (test 33.9 MG/DL code = 2072) ALBUMIN, URINE, RANDOM (test code 196.7 MG/DL = 02678) CALC ALBUMIN/CREAT, RND (test 5802 MG/G code = 25931) HEMOGLOBIN [id number] 00:00:00 Test Item Value Reference Range Interpretation Comments HEMOGLOBIN A1c (test code = 05000) 9.5 % HEMOGLOBIN [id number] 00:00:00 Test Item Value Reference Range Interpretation Comments HEMOGLOBIN A1c (test code = 72663) 9.5 % HEMOGLOBIN [id number] 00:00:00 Test Item Value Reference Range Interpretation Comments HEMOGLOBIN A1c (test code = 79241) 9.5 % LIPID [id number] 00:00:00 Test Item Value Reference Range Interpretation Comments CHOLESTEROL (test code = 2210) 166 MG/DL TRIGLYCERIDES (test code = 2232) 77 MG/DL HDL CHOLESTEROL (test code = 2220) 71 MG/DL CALC LDL CHOL (test code = 2237) 80 MG/DL RISK RATIO LDL/HDL (test code = 1.12 RATIO 2238) LIPID [id number] 00:00:00 Test Item Value Reference Range Interpretation Comments CHOLESTEROL (test code = 2210) 166 MG/DL TRIGLYCERIDES (test code = 2232) 77 MG/DL HDL CHOLESTEROL (test code = 2220) 71 MG/DL CALC LDL CHOL (test code = 2237) 80 MG/DL RISK RATIO LDL/HDL (test code = 1.12 RATIO 2238) COMPREHENSIVE METABOLIC [id number] 00:00:00 Test Item Value Reference Range Interpretation Comments GLUCOSE (test code = 2217) 241 MG/DL BUN (test code = 2208) 42 MG/DL CREATININE (test code = 2214) 2.62 MG/DL eGFR AMER. (test code 22 ML/MIN/1.73 = 99574) eGFR NON- AMER. (test 19 ML/MIN/1.73 code = 59691) CALC BUN/CREAT (test code = 16 RATIO [...] code = 2219) 10 U/L COMPREHENSIVE METABOLIC [id number] 00:00:00 Test Item Value Reference Range Interpretation Comments GLUCOSE (test code = 2217) 241 MG/DL BUN (test code = 2208) 42 MG/DL CREATININE (test code = 2214) 2.62 MG/DL eGFR AMER. (test code 22 ML/MIN/1.73 = 23788) eGFR NON- AMER. (test 19 ML/MIN/1.73 code = 43546) CALC BUN/CREAT (test code = 16 RATIO [...] ALT (test code = 2219) 10 U/L [id number] 00:00:00 Test Item Value Reference Range Interpretation Comments TSH, THIRD GENERATION (test code 1.300 UIU/ML = 2821) [id number] 00:00:00 Test Item Value Reference Range Interpretation Comments TSH, THIRD GENERATION (test code 1.300 UIU/ML = 2821) [id number] 00:00:00 Test Item Value Reference Range Interpretation Comments TSH, THIRD GENERATION (test code 1.300 UIU/ML = 2821) MICROALBUMIN/CREATININE, RANDOM AND [id number] 00:00:00 Test Item Value Reference Range Interpretation Comments CREATININE, URINE, CONC. (test 33.9 MG/DL code = 2072) ALBUMIN, URINE, RANDOM (test code 196.7 MG/DL = 18895) CALC ALBUMIN/CREAT, RND (test 5802 MG/G code = 08770) MICROALBUMIN/CREATININE, RANDOM AND [id number] 00:00:00 Test Item Value Reference Range Interpretation Comments CREATININE, URINE, CONC. (test 33.9 MG/DL code = 2072) ALBUMIN, URINE, RANDOM (test code 196.7 MG/DL = 14152) CALC ALBUMIN/CREAT, RND (test 5802 MG/G code = 37829) HEMOGLOBIN [id number] 00:00:00 Test Item Value Reference Range Interpretation Comments HEMOGLOBIN A1c (test code = 96784) 9.5 % HEMOGLOBIN [id number] 00:00:00 Test Item Value Reference Range Interpretation Comments HEMOGLOBIN A1c (test code = 64233) 9.5 % HEMOGLOBIN [id number] 00:00:00 Test Item Value Reference Range Interpretation Comments HEMOGLOBIN A1c (test code = 48159) 9.5 % LIPID [id number] 00:00:00 Test Item Value Reference Range Interpretation Comments CHOLESTEROL (test code = 2210) 166 MG/DL TRIGLYCERIDES (test code = 2232) 77 MG/DL HDL CHOLESTEROL (test code = 2220) 71 MG/DL CALC LDL CHOL (test code = 2237) 80 MG/DL RISK RATIO LDL/HDL (test code = 1.12 RATIO 2238) LIPID [id number] 00:00:00 Test Item Value Reference Range Interpretation Comments CHOLESTEROL (test code = 2210) 166 MG/DL TRIGLYCERIDES (test code = 2232) 77 MG/DL HDL CHOLESTEROL (test code = 2220) 71 MG/DL CALC LDL CHOL (test code = 2237) 80 MG/DL RISK RATIO LDL/HDL (test code = 1.12 RATIO 2238) COMPREHENSIVE METABOLIC [id number] 00:00:00 Test Item Value Reference Range Interpretation Comments GLUCOSE (test code = 2217) 241 MG/DL BUN (test code = 2208) 42 MG/DL CREATININE (test code = 2214) 2.62 MG/DL eGFR AMER. (test code 22 ML/MIN/1.73 = 13859) eGFR NON- AMER. (test 19 ML/MIN/1.73 code = 96276) CALC BUN/CREAT (test code = 16 RATIO [...] code = 2219) 10 U/L COMPREHENSIVE METABOLIC [id number] 00:00:00 Test Item Value Reference Range Interpretation Comments GLUCOSE (test code = 2217) 241 MG/DL BUN (test code = 2208) 42 MG/DL CREATININE (test code = 2214) 2.62 MG/DL eGFR AMER. (test code 22 ML/MIN/1.73 = 85787) eGFR NON- AMER. (test 19 ML/MIN/1.73 code = 44761) CALC BUN/CREAT (test code = 16 RATIO [...] ALT (test code = 2219) 10 U/L [id number] 00:00:00 Test Item Value Reference Range Interpretation Comments TSH, THIRD GENERATION (test code 1.300 UIU/ML = 2821) [id number] 00:00:00 Test Item Value Reference Range Interpretation Comments TSH, THIRD GENERATION (test code 1.300 UIU/ML = 2821) [id number] 00:00:00 Test Item Value Reference Range Interpretation Comments TSH, THIRD GENERATION (test code 1.300 UIU/ML = 2821) MICROALBUMIN/CREATININE, RANDOM AND [id number] 00:00:00 Test Item Value Reference Range Interpretation Comments CREATININE, URINE, CONC. (test 33.9 MG/DL code = 2072) ALBUMIN, URINE, RANDOM (test code 196.7 MG/DL = 82800) CALC ALBUMIN/CREAT, RND (test 5802 MG/G code = 74899) MICROALBUMIN/CREATININE, RANDOM AND [id number] 00:00:00 Test Item Value Reference Range Interpretation Comments CREATININE, URINE, CONC. (test 33.9 MG/DL code = 2072) ALBUMIN, URINE, RANDOM (test code 196.7 MG/DL = 03627) CALC ALBUMIN/CREAT, RND (test 5802 MG/G code = 07983) HEMOGLOBIN [id number] 00:00:00 Test Item Value Reference Range Interpretation Comments HEMOGLOBIN A1c (test code = 66194) 9.5 % HEMOGLOBIN [id number] 00:00:00 Test Item Value Reference Range Interpretation Comments HEMOGLOBIN A1c (test code = 85490) 9.5 % HEMOGLOBIN [id number] 00:00:00 Test Item Value Reference Range Interpretation Comments HEMOGLOBIN A1c (test code = 09167) 9.5 % LIPID [id number] 00:00:00 Test Item Value Reference Range Interpretation Comments CHOLESTEROL (test code = 2210) 166 MG/DL TRIGLYCERIDES (test code = 2232) 77 MG/DL HDL CHOLESTEROL (test code = 2220) 71 MG/DL CALC LDL CHOL (test code = 2237) 80 MG/DL RISK RATIO LDL/HDL (test code = 1.12 RATIO 2238) HEMOGLOBIN [id number] 00:00:00 Test Item Value Reference Range Interpretation Comments HEMOGLOBIN A1c (test code = 14844) 9.5 % HEMOGLOBIN [id number] 00:00:00 Test Item Value Reference Range Interpretation Comments HEMOGLOBIN A1c (test code = 99024) 9.5 % LIPID [id number] 00:00:00 Test Item Value Reference Range Interpretation Comments CHOLESTEROL (test code = 2210) 166 MG/DL TRIGLYCERIDES (test code = 2232) 77 MG/DL HDL CHOLESTEROL (test code = 2220) 71 MG/DL CALC LDL CHOL (test code = 2237) 80 MG/DL RISK RATIO LDL/HDL (test code = 1.12 RATIO 2238) LIPID [id number] 00:00:00 Test Item Value Reference Range Interpretation Comments CHOLESTEROL (test code = 2210) 166 MG/DL TRIGLYCERIDES (test code = 2232) 77 MG/DL HDL CHOLESTEROL (test code = 2220) 71 MG/DL CALC LDL CHOL (test code = 2237) 80 MG/DL RISK RATIO LDL/HDL (test code = 1.12 RATIO 2238) COMPREHENSIVE METABOLIC [id number] 00:00:00 Test Item Value Reference Range Interpretation Comments GLUCOSE (test code = 2217) 241 MG/DL BUN (test code = 2208) 42 MG/DL CREATININE (test code = 2214) 2.62 MG/DL eGFR AMER. (test code 22 ML/MIN/1.73 = 68452) eGFR NON- AMER. (test 19 ML/MIN/1.73 code = 22938) CALC BUN/CREAT (test code = 16 RATIO [...] ALKALINE PHOSPHATASE (test 165 U/L code = 2203) AST (test code = 2218) 20 U/L ALT (test code = 2219) 10 U/L COMPREHENSIVE METABOLIC [id number] 00:00:00 Test Item Value Reference Range Interpretation Comments GLUCOSE (test code = 2217) 241 MG/DL BUN (test code = 2208) 42 MG/DL CREATININE (test code = 2214) 2.62 MG/DL eGFR AMER. (test code 22 ML/MIN/1.73 = 85032) eGFR NON- AMER. (test 19 ML/MIN/1.73 code = 07766) CALC BUN/CREAT (test code = 16 RATIO [...] ALT (test code = 2219) 10 U/L [id number] 00:00:00 Test Item Value Reference Range Interpretation Comments TSH, THIRD GENERATION (test code 1.300 UIU/ML = 2821) [id number] 00:00:00 Test Item Value Reference Range Interpretation Comments TSH, THIRD GENERATION (test code 1.300 UIU/ML = 2821) [id number] 00:00:00 Test Item Value Reference Range Interpretation Comments TSH, THIRD GENERATION (test code 1.300 UIU/ML = 2821) MICROALBUMIN/CREATININE, RANDOM AND [id number] 00:00:00 Test Item Value Reference Range Interpretation Comments CREATININE, URINE, CONC. (test 33.9 MG/DL code = 2072) ALBUMIN, URINE, RANDOM (test code 196.7 MG/DL = 68262) CALC ALBUMIN/CREAT, RND (test 5802 MG/G code = 74973) MICROALBUMIN/CREATININE, RANDOM AND [id number] 00:00:00 Test Item Value Reference Range Interpretation Comments CREATININE, URINE, CONC. (test 33.9 MG/DL code = 2072) ALBUMIN, URINE, RANDOM (test code 196.7 MG/DL = 20468) CALC ALBUMIN/CREAT, RND (test 5802 MG/G code = 79807) COMPREHENSIVE METABOLIC [id number] 00:00:00 Test Item Value Reference Range Interpretation Comments GLUCOSE (test code = 2217) 241 MG/DL BUN (test code = 2208) 42 MG/DL CREATININE (test code = 2214) 2.62 MG/DL eGFR AMER. (test code 22 ML/MIN/1.73 = 57913) eGFR NON- AMER. (test 19 ML/MIN/1.73 code = 21456) CALC BUN/CREAT (test code = 16 RATIO [...] ALT (test code = 2219) 10 U/L [id number] 00:00:00 Test Item Value Reference Range Interpretation Comments TSH, THIRD GENERATION (test code 1.300 UIU/ML = 2821) [id number] 00:00:00 Test Item Value Reference Range Interpretation Comments TSH, THIRD GENERATION (test code 1.300 UIU/ML = 2821) MICROALBUMIN/CREATININE, RANDOM AND [id number] 00:00:00 Test Item Value Reference Range Interpretation Comments CREATININE, URINE, CONC. (test 33.9 MG/DL code = 2072) ALBUMIN, URINE, RANDOM (test code 196.7 MG/DL = 76434) CALC ALBUMIN/CREAT, RND (test 5802 MG/G code = 10754) HEMOGLOBIN [id number] 00:00:00 Test Item Value Reference Range Interpretation Comments HEMOGLOBIN A1c (test code = 41417) 9.5 % HEMOGLOBIN [id number] 00:00:00 Test Item Value Reference Range Interpretation Comments HEMOGLOBIN A1c (test code = 49738) 9.5 % HEMOGLOBIN [id number] 00:00:00 Test Item Value Reference Range Interpretation Comments HEMOGLOBIN A1c (test code = 62230) 9.5 % LIPID [id number] 00:00:00 Test Item Value Reference Range Interpretation Comments CHOLESTEROL (test code = 2210) 166 MG/DL TRIGLYCERIDES (test code = 2232) 77 MG/DL HDL CHOLESTEROL (test code = 2220) 71 MG/DL CALC LDL CHOL (test code = 2237) 80 MG/DL RISK RATIO LDL/HDL (test code = 1.12 RATIO 2238) LIPID [id number] 00:00:00 Test Item Value Reference Range Interpretation Comments CHOLESTEROL (test code = 2210) 166 MG/DL TRIGLYCERIDES (test code = 2232) 77 MG/DL HDL CHOLESTEROL (test code = 2220) 71 MG/DL CALC LDL CHOL (test code = 2237) 80 MG/DL RISK RATIO LDL/HDL (test code = 1.12 RATIO 2238) COMPREHENSIVE METABOLIC [id number] 00:00:00 Test Item Value Reference Range Interpretation Comments GLUCOSE (test code = 2217) 241 MG/DL BUN (test code = 2208) 42 MG/DL CREATININE (test code = 2214) 2.62 MG/DL eGFR AMER. (test code 22 ML/MIN/1.73 = 81612) eGFR NON- AMER. (test 19 ML/MIN/1.73 code = 80423) CALC BUN/CREAT (test code = 16 RATIO [...] code = 2219) 10 U/L COMPREHENSIVE METABOLIC [id number] 00:00:00 Test Item Value Reference Range Interpretation Comments GLUCOSE (test code = 2217) 241 MG/DL BUN (test code = 2208) 42 MG/DL CREATININE (test code = 2214) 2.62 MG/DL eGFR AMER. (test code 22 ML/MIN/1.73 = 27948) eGFR NON- AMER. (test 19 ML/MIN/1.73 code = 30252) CALC BUN/CREAT (test code = 16 RATIO [...] ALKALINE PHOSPHATASE (test 165 U/L code = 2203) AST (test code = 2218) 20 U/L ALT (test code = 2219) 10 U/L
--- NOTE | 2022-07-03 00:20 | EDPHYS ---
Physician Documentation [facility] Name: Margarita Dominique Age: 62 yrs Sex: Female : 1960 Arrival Date: 07/02/2022 Time: 22:24 Bed 2 Private MD: ED Physician José Miguel Lynn HPI: 07/02 23:15 This 62 yrs old Female presents to ER via Wheelchair with complaints of Finger pm1 Infection. 23:15 The patient or guardian reports pain, infection. The complaints affect the distal pm1 aspect of left ring finger. Context: The problem was sustained at home, resulted from patient attempted to strike her dog and instead hit the floor with her left ring finger. Onset: The symptoms/episode began/occurred 1 week(s) ago. Modifying factors: The symptoms are alleviated by nothing, the symptoms are aggravated by nothing. Associated signs and symptoms: Pertinent negatives: fever. Severity of symptoms: in the emergency department the symptoms are actually worse. Patient was given oral and topical antibiotics without improvement. Patient was seen at dialysis treatment today and completed. Was recommended by them to report to the ER for IV antibiotics and treatment. Historical: - Allergies: 23:11 No Known Allergies; tw5 - PMHx: 23:11 CVA; Diabetes - NIDDM; Dialysis; HEART FAILURE; Hypertension; Hypothyroidism; vitamin d tw5 deficiency; - PSHx: 23:11 LUE fistula; tw5 - Immunization history:: Flu vaccine is up to date. - Social history:: Smoking status: Patient denies any tobacco usage or history of. ROS: 23:15 Constitutional: Negative for fever, chills, and weight loss, Cardiovascular: Negative pm1 for chest pain, palpitations, and edema, Respiratory: Negative for shortness of breath, cough, wheezing, and pleuritic chest pain. 23:15 Neuro: Negative for headache, weakness, numbness, tingling, and seizure. 23:15 MS/extremity: Positive for pain, of the Distal aspect of left ring finger, discoloration. 23:15 Skin: Positive for discoloration. 23:15 All other systems are negative. Exam: 23:15 Constitutional: This is a well developed, well nourished patient who is awake, alert, pm1 and in no acute distress. Head/Face: Normocephalic, atraumatic. 23:15 Cardiovascular: Exam negative for acute changes, Rate: normal, Rhythm: regular, Pulses: no pulse deficits are appreciated. 23:15 Respiratory: Exam negative for acute changes, respiratory distress, shortness of breath. 23:15 Musculoskeletal/extremity: Extremities: grossly normal except: noted in the Left fourth finger DIP to tip with black discoloration and peeling away of skin. No purulence or discharge present. Mild swelling and redness present from DIP to knuckle of fourth finger: 23:15 Skin: Appearance: normal except for affected area, see MS/extremity exam of fourth finger. 23:15 Neuro: Exam negative for acute changes, Orientation: is normal, Mentation: is normal, Motor: moves all fours. Vital Signs: 23:08 BP 107 / 61; Pulse 90; Resp 18; Temp 98.2; Pulse Ox 92% on R/A; Weight 54.43 kg; Height tw5 5 ft. 2 in. (157.48 cm); Pain 5/10; 23:57 BP 108 / 59; Pulse 91; Resp 18; Pulse Ox 98% on R/A; oe 07/03 02:13 BP 102 / 56; Pulse 87; Resp 16 S; Temp 98.2(O); Pulse Ox 95% on R/A; bb 07/02 23:08 Body Mass Index 21.95 (54.43 kg, 157.48 cm) tw5 MDM: 07/02 23:13 Patient medically screened. pm1 07/03 00:09 ED course: Patient evaluated by Dr Lynn and plan of care is IV antibiotics and pm1 admission/transfer for evaluation and treatment by hand surgery. 00:14 Data reviewed: vital signs. pm1 00:14 Management of patient was discussed with the following: Tribal Delegate: Dr. Christy: Keep pm1 patient NPO will debride in the AM. Apply Silvadene to tip of the finger, Unasyn is fine as IV antibiotic. 00:14 Management of patient was discussed with the following: Hospitalist: Anais JONES. pm1 Admit to [facility] as inpatient. 07/02 23:14 Order name: CBC with Diff; Complete Time: 02:04 pm1 07/02 23:14 Order name: CMP; Complete Time: 02:36 pm1 07/02 23:14 Order name: Hand Left 3 View XRAY pm1 07/02 23:14 Order name: Blood Culture Adult (2) pm1 07/02 23:14 Order name: SARS RAPID; Complete Time: 01:52 pm1 07/02 23:14 Order name: IV Saline Lock; Complete Time: 01:38 pm1 07/03 00:14 Order name: NPO; Complete Time: 02:08 pm1 Administered Medications: 01:50 Drug: Unasyn (ampicillin-sulbactam) 3 grams Route: IVPB; Infused Over: 30 mins; Site: bb right upper arm; 02:24 Follow up: IV Status: Completed infusion; IV Intake: 100ml bb 02:08 Drug: Silvadene (silver sulfADIAZINE) Cream 1 % 1 application Route: Topical; Site: bb left hand; 02:29 Drug: Insulin Regular Human 5 units {Co-Signature: tw5 (Fiorella Mario).} Route: IVP; bb Site: right upper arm; 02:44 Follow up: Response: No adverse reaction bb Disposition: 04:13 Co-signature as Attending Physician, José Miguel Lynn MD I reviewed the patient's care rn provided by the Advanced Practice Provider and agree with the diagnosis and treatment plan. Disposition Summary: 07/03/22 00:19 Hospitalization Ordered Hospitalization Status: Inpatient Admission pm1 Provider: Justus Mireles pmZak Location: Telemetry/MedSurg (Inpatient) pm1 Condition: Stable pm1 Problem: new pm1 Symptoms: have improved pm1 Bed/Room Type: Standard 1 Room Assignment: 228(07/03/22 01:58) cg Diagnosis - Cellulitis of finger - dry gangrene to distal tip of left fourth finger pm1 - Distal tuft fracture left fourth finger pm1 Forms: - Medication Reconciliation Form pm1 - SBAR form pm1 Signatures: Dispatcher [employer] Lori Mcmanus RN RN bb Nieto, Roman, MD MD rn Garcia, Cindy, RN RN cg Marinas, Patrick, NP FORKLIFT MATERIAL HANDLER pm1 Fiorella Mario tw5 Kristy Gilmore PA-C PA-C sb4 Fiorella Mario tw5 Corrections: (The following items were deleted from the chart) 01:58 00:19 pm1 cg
--- NOTE | 2022-07-03 00:20 | ER ---
Nurse's Notes [facility] Name: Margarita Dominique Age: 62 yrs Sex: Female : 1960 Arrival Date: 07/02/2022 Time: 22:24 Bed 2 Private MD: Diagnosis: Cellulitis of finger-dry gangrene to distal tip of left fourth finger Presentation: 07/02 23:08 Chief complaint: Patient's son or daughter states: "She was given antibiotics for it. tw5 They first gave her a cream, but then they gave her a pill. Now they are saying it is so bad that she needs IV antibiotics or she will lose the finger.". Coronavirus screen: Vaccine status: Patient reports receiving the 2nd dose of the covid vaccine. [employer]. Ebola Screen: Patient negative for fever greater than or equal to 101.5 degrees Fahrenheit, and additional compatible Ebola Virus Disease symptoms Patient denies exposure to infectious person. Patient denies travel to an Ebola-affected area in the 21 days before illness onset. Initial Sepsis Screen: Does the patient meet any 2 criteria? No. Patient's initial sepsis screen is negative. Does the patient have a suspected source of infection? Yes: Bone or joint infection. Risk Assessment: Do you want to hurt yourself or someone else? Patient reports no desire to harm self or others. Onset of symptoms is unknown. 23:08 Method Of Arrival: Wheelchair tw5 23:08 Acuity: YEFRI 3 tw5 Triage Assessment: 23:11 General: Appears in no apparent distress. Behavior is calm, cooperative, appropriate tw5 for age. Pain: Complains of pain in palmar aspect of distal phalanx of left ring finger and left ring fingernail Pain currently is 7 out of 10 on a pain scale. Musculoskeletal: black. Injury Description: black. Historical: - Allergies: 23:11 No Known Allergies; tw5 - PMHx: 23:11 CVA; Diabetes - NIDDM; Dialysis; HEART FAILURE; Hypertension; Hypothyroidism; vitamin d tw5 deficiency; - PSHx: 23:11 LUE fistula; tw5 - Immunization history:: Flu vaccine is up to date. - Social history:: Smoking status: Patient denies any tobacco usage or history of. Screenin:12 [facility] ED Fall Risk Assessment (Adult) History of falling in the last 3 months, tw5 including since admission. Abuse screen: Denies threats or abuse. Denies injuries from another. Nutritional screening: No deficits noted. Tuberculosis screening: No symptoms or risk factors identified. Assessment: 07/03 00:00 General: Appears in no apparent distress. emaciated, Behavior is calm, cooperative. bb Neuro: Level of Consciousness is awake, alert, obeys commands, Oriented to person, place, time, situation. Cardiovascular: Capillary refill < 3 seconds Patient's skin is warm and dry. Respiratory: Airway is patent Respiratory effort is even, unlabored, Respiratory pattern is regular. GI: No signs and/or symptoms were reported involving the gastrointestinal system. Derm: Skin is fragile, tip of left ring finger blackened. Musculoskeletal: Circulation, motion, and sensation intact. 01:20 Reassessment: Patient is alert, oriented x 3, equal unlabored respirations, skin bb warm/dry/pink. awaiting diagnostic results. 02:09 Reassessment: Brian [phone] pt's son. bb 02:29 Reassessment: report called to Mary ALLEN for room 228. bb Vital Signs: 07/02 23:08 BP 107 / 61; Pulse 90; Resp 18; Temp 98.2; Pulse Ox 92% on R/A; Weight 54.43 kg; Height tw5 5 ft. 2 in. (157.48 cm); Pain 5/10; 23:57 BP 108 / 59; Pulse 91; Resp 18; Pulse Ox 98% on R/A; oe 07/03 02:13 BP 102 / 56; Pulse 87; Resp 16 S; Temp 98.2(O); Pulse Ox 95% on R/A; bb 07/02 23:08 Body Mass Index 21.95 (54.43 kg, 157.48 cm) tw5 ED Course: 07/02 22:24 Patient arrived in ED. ja2 22:52 Adrian Buitrago NP is PHCP. pm1 22:52 José Miguel Lynn MD is Attending Physician. pm1 23:11 Triage completed. tw5 23:11 Arm band placed on. tw5 23:12 Patient has correct armband on for positive identification. tw5 23:45 Hand Left 3 View XRAY In Process Unspecified. EDMS 23:50 Caldwell, Lori, RN is Primary Nurse. bb 07/03 00:00 Pulse ox on. NIBP on. Warm blanket given. Pillow given. bb 00:18 Justus Mireles is Hospitalizing Provider. pm1 01:30 Lab(s) recollected, by me, sent to lab. Second set of blood cultures drawn by me. bb Accessed peripheral vein via ultrasound, utilizing dynamic ultrasound technique Powerglide midline 20g 8cm to right upper arm using hospital protocol with good blood return and flushes easily pt tolerated well. 02:24 No provider procedures requiring assistance completed. Patient admitted, IV remains in bb place. Administered Medications: 01:50 Drug: Unasyn (ampicillin-sulbactam) 3 grams Route: IVPB; Infused Over: 30 mins; Site: bb right upper arm; 02:24 Follow up: IV Status: Completed infusion; IV Intake: 100ml bb 02:08 Drug: Silvadene (silver sulfADIAZINE) Cream 1 % 1 application Route: Topical; Site: bb left hand; 02:29 Drug: Insulin Regular Human 5 units {Co-Signature: jaylin (Fiorella Mario).} Route: IVP; bb Site: right upper arm; 02:44 Follow up: Response: No adverse reaction bb Medication: 07/02 23:12 VIS not applicable for this client. tw5 Intake: 07/03 02:24 IV: 100ml; Total: 100ml. bb Outcome: 00:19 Decision to Hospitalize by Provider. pm1 02:24 Admitted to Tele accompanied by tech, via stretcher, room 228, with chart, Report bb called to receiving RN 02:24 Condition: stable 02:24 Instructed on the need for admit. 03:04 Patient left the ED. bb Signatures: Dispatcher [employer] Lori Mcmanus RN RN bb Adrian Buitrago, PORTABLE CANTEEN OPERATOR PORTABLE CANTEEN OPERATOR pm1 Lenin [place] Jessica ja2 Wood, Tiffany tw5 Tiffany Wood tw5
--- NOTE | 2022-07-03 00:28 | P.HP ---
Certification for Inpatient Patient admitted to: Inpatient With expected LOS: >2 Midnights Patient will require the following post-hospital care: None Practitioner: I am a practitioner with admitting privileges, knowledge of patient current condition, hospital course, and medical plan of care. Services: Services provided to patient in accordance with Admission requirements found in Title 42 Section 412.3 of the Code of Federal Regulations Patient History Date of Service: 07/03/22 Reason for admission: Cellulitus/Gangrene L 4th Digit History of Present Illness: Patient is a 62 year old female with past medical history of hypertension, insulin dependent type 2 diabetes, ESRD on HD, chronic diastolic CHF, hypothyroidism, and previous CVAs who presented to the emergency department with left 4th finger infection/pain. Patient is ivorian speaking only. Son at bedside translating. Patient states that she initially injured it, by jamming it, about 1 week ago and has been treating it with topical and oral antibiotics. However, it has not improved. She presents today with some gangrenous apperance at the tip of the 4th left finger with surrounding erythema. No significant lab abnormalities. Dr. Christy was contacted and will take patient to OR for debriedment in the morning. She will be admitted to hospitalist service for further management. Allergies No Known Allergies Allergy (Verified 08/08/20 10:34) Home medications list reviewed: Yes Home Medications: Levothyroxine [Synthroid*] 25 mcg PO [id number] 05/26/18 Ergocalciferol (Vitamin D2) [Vitamin D2] 50,000 unit PO DIRECTED 08/08/20 Furosemide 20 mg PO DAILY 08/08/20 Insulin -Regular Human [Novolin -R*] 12 unit SQ TIDWM 08/08/20 Ascorbic Acid [Vitamin C*] 500 mg PO DAILY #14 tablet 07/27/21 Aspirin [Aspirin EC 81 MG] 81 mg PO DAILY #30 07/27/21 Atorvastatin Calcium [Lipitor*] 40 mg PO BEDTIME #14 tab 07/27/21 Cholecalciferol (Vitamin D3) [Vitamin D 1000 Iu Tab*] 1,000 unit PO DAILY #10 tab 07/27/21 Clopidogrel Bisulfate [Plavix*] 75 mg PO DAILY #30 tablet 07/27/21 Mometasone/Formoterol [Dulera 200 Mcg/5 Mcg Inhaler] 2 puff IH BID inhaler 07/27/21 Thiamine HCl [Vitamin B-1*] 100 mg PO DAILY #14 tablet 07/27/21 Zinc Sulfate [Zinc Sulfate*] 220 mg PO DAILY #14 cap 07/27/21 Epoetin [Retacrit] 4,000 unit IV EVERY HD vial 08/03/21 Heparin [Heparin 1,000 units/mL *] 4,000 unit IV EVERY HD PRN vial 08/03/21 Isosorbide Mononitrate [Isosorbide Mononitrate ER] 30 mg PO DAILY #30 tab.er.24h 08/03/21 Metoprolol Tartrate [Lopressor*] 12.5 mg PO BID 6AM 6PM #60 tab 08/03/21 - Past Medical/Surgical History Diabetic: Yes -: HTN -: IDDM -: Hypothyroidism -: CVA X2 with left eye deficit -: ESRD on HD -: Chronic diastolic congestive heart failure -: Vit D deficiency -: cardiac stent X1 -: cholecystectomy -: L Fistula -: R BKA Psychosocial/ Personal History: Patient lives at home with family - Family History Father -: Diabetes Mother -: Heart disease, Hypertension, Diabetes - Social History Smoking Status: Never smoker Alcohol use: No CD- Drugs: No Caffeine use: No Place of Residence: Home Review of Systems Musculoskeletal: Other (finger pain/wound) Physical Examination - Vital Signs Temperature: 98.2 F Blood Pressure: 108/59 Pulse: 91 Respirations: 18 Pulse Ox (%): 98 - Physical Exam General: Alert, In no apparent distress HEENT: Atraumatic, PERRLA, EOMI, Sclerae nonicteric Neck: Supple, 2+ carotid pulse no bruit, No LAD, Without JVD or thyroid abnormality Respiratory: Clear to auscultation bilaterally, Normal air movement Cardiovascular: Regular rate/rhythm, Normal S1 S2 Gastrointestinal: Normal bowel sounds, No tenderness Musculoskeletal: No tenderness Integumentary: Other (L 4th DIP-tip black discoloration. No purulence or discharge. Surrounding cellulitis) Neurological: Normal speech, Sensation intact Assessment and Plan - Problems (Diagnosis) (1) Gangrene of finger of left hand Current Visit: Yes Status: Acute (2) Cellulitis of ring finger of left hand Current Visit: Yes Status: Acute (3) Congestive heart failure Current Visit: Yes Status: Chronic Qualifiers: Heart failure type: diastolic Heart failure chronicity: chronic Qualified Code(s): I50.32 - Chronic diastolic (congestive) heart failure (4) ESRD (end stage renal disease) Current Visit: Yes Status: Chronic (5) CAD (coronary artery disease) Current Visit: Yes Status: Chronic Qualifiers: Coronary Disease-Associated Artery/Lesion type: [place] artery [place] vs. 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 NPO. IV unasyn. Dr. Christy to take patient to OR for debriedment. She does NOT meet sepsis criteria. Pain medication as needed. Patient received HD today. Consult nephrology for eventual HD. Glucose monitoring with sliding scale insulin. Monitor and replete electrolytes per protocol. Reconcile and continue home medications. VTE prophylaxis. Full code. Discharge Plan: Home Plan to discharge in: Greater than 2 days - Advance Directives Does patient have a Living Will: No Does patient have a Durable POA for Healthcare: No - Code Status/Comfort Care Code Status Assessed: Yes Code Status: Full Code Physician Review: Patient Assessed, Agree with Above Assessment and Plan Critical Care: No Time Spent Managing Pts Care (In Minutes): 50
[2022-07-03 01:42] LABS: SARS-CoV-2 Antigen Rapid Res Negative (Negative)
[2022-07-03] MEDS ORDERED: AMPICILLIN/SULBACTAM 3GM/VIAL ONE ×2 (01:42→20:22)
[2022-07-03] MEDS ORDERED: NA CHLORIDE 0.9% 100 ML IV ONE ×2 (01:42→21:26)
[2022-07-03] MEDS ORDERED: SILVER SULFADIAZINE 1% 25 GM TOP ONE (01:43)
[2022-07-03 01:56] LABS: Absolute Lymphocytes (CBC) 0.5 K/uL (0.7-4.9); Hematocrit 33.4 % (36.0-45.0); Lymphocytes % 6.7 % (15.3-44.8); MCV 98.4 fL (80-100); MPV 10.5 fL (7.6-11.3); RBC Red Blood Cell Count 3.39 M/uL (3.86-4.86)
[2022-07-03 02:17] LABS: Albumin 2.8 g/dL (3.4-5.0); Bilirubin Total 2.4 mg/dL (0.2-1.0); Potassium 3.4 mmol/L (3.5-5.1); Protein, Total 7.3 g/dL (6.4-8.2)
[2022-07-03] MEDS ORDERED: INSULIN -REGULAR HUMAN 50 UNIT/0.5 ML ML ONE (02:35)
[2022-07-03] MEDS ORDERED: MORPHINE 2 MG/ML SYR IV PRN (02:52)
[2022-07-03] MEDS ORDERED: ONDANSETRON 4 MG/2 ML VIAL IV PRN (02:52)
[2022-07-03 04:16] VITALS: BMI 23.2
[2022-07-03] MEDS: INSULIN -REGULAR HUMAN 50 UNIT/0.5 ML ML SQ SCH ×4 (05:39→17:17)
[2022-07-03] MEDS: NA CHLORIDE 0.9% 1,000 ML ONE ×2 (11:45→11:47)
[2022-07-03] MEDS ORDERED: propofoL 200 MG/20 ML VIAL IV ONE (12:24)
[2022-07-03] MEDS ORDERED: MIDAZOLAM HCL 2 MG/2 ML INJ ONE (12:24)
[2022-07-03] MEDS ORDERED: ONDANSETRON 4 MG/2 ML VIAL ONE (12:25)
[2022-07-03] MEDS ORDERED: FENTANYL CITR 100 MCG/2 ML ONE (12:25)
[2022-07-03] MEDS ORDERED: LIDOCAINE 2% MPF 5 ML VIAL ONE (12:25)
[2022-07-03] MEDS: NA CHLORIDE 0.9% 500 ML ONE ×2 (12:29→12:30)
[2022-07-03] MEDS ORDERED: Phenylephrine HCl 10 MG/ML 1 ML VIAL ONE (12:41)
[2022-07-03] MEDS ORDERED: EPHEDRINE SULF 50 MG/ML VIAL ONE (12:53)
[2022-07-03] MEDS ORDERED: CODEINE 30MG/APAP 300MG TAB PO PRN (12:57)
--- NOTE | 2022-07-03 15:55 | P.CNS ---
Date of Consult: 07/03/22 Reason for Consult: esrd Chief Complaint: Cellulitus/Gangrene L 4th Digit History of Present Illness: 62-year-old -Eritrean speaking female with past medical history of HTN, ESRD on HD at [facility] presented for left fourth finger cellulitis. She underwent debridement with Dr. Nik Bonilla today. She feels very fatigued. Her blood pressure systolic has been in the 90s. She is complaining of pain over the surgical area. She is also wanting to eat. She denies any headache nausea vomiting. She is unable to tell what her regular topography technician is. Renal consulted for continuation of dialysis Allergies No Known Allergies Allergy (Verified 08/08/20 10:34) Home Medications: Levothyroxine [Synthroid*] 25 mcg PO [id number] 05/26/18 Ergocalciferol (Vitamin D2) [Vitamin D2] 50,000 unit PO DIRECTED 08/08/20 Furosemide 20 mg PO DAILY 08/08/20 Insulin -Regular Human [Novolin -R*] 12 unit SQ TIDWM 08/08/20 Ascorbic Acid [Vitamin C*] 500 mg PO DAILY #14 tablet 07/27/21 Aspirin [Aspirin EC 81 MG] 81 mg PO DAILY #30 07/27/21 Atorvastatin Calcium [Lipitor*] 40 mg PO BEDTIME #14 tab 07/27/21 Cholecalciferol (Vitamin D3) [Vitamin D 1000 Iu Tab*] 1,000 unit PO DAILY #10 ta b 07/27/21 Clopidogrel Bisulfate [Plavix*] 75 mg PO DAILY #30 tablet 07/27/21 Mometasone/Formoterol [Dulera 200 Mcg/5 Mcg Inhaler] 2 puff IH BID inhaler 07/27/21 Thiamine HCl [Vitamin B-1*] 100 mg PO DAILY #14 tablet 07/27/21 Zinc Sulfate [Zinc Sulfate*] 220 mg PO DAILY #14 cap 07/27/21 Epoetin [Retacrit] 4,000 unit IV EVERY HD vial 08/03/21 Heparin [Heparin 1,000 units/mL *] 4,000 unit IV EVERY HD PRN vial 08/03/21 Isosorbide Mononitrate [Isosorbide Mononitrate ER] 30 mg PO DAILY #30 tab.er.24h 08/03/21 Metoprolol Tartrate [Lopressor*] 12.5 mg PO BID 6AM 6PM #60 tab 08/03/21 - Past Medical/Surgical History Diabetic: Yes -: HTN -: IDDM -: Hypothyroidism -: CVA X2 with left eye deficit -: ESRD on HD -: Chronic diastolic congestive heart failure -: Vit D deficiency -: cardiac stent X1 -: cholecystectomy -: L Fistula -: R BKA Psychosocial/ Personal History: Patient lives at home with family - Family History Father Medical History: Diabetes Mother Medical History: Heart disease, Hypertension, Diabetes - Social History Smoking Status: Unknown if ever smoked Alcohol use: No CD- Drugs: No Caffeine use: No Place of Residence: Home Review of Systems 10-point ROS is otherwise unremarkable Physical Examination Temp Pulse Resp BP Pulse Ox 97 F 88 18 121/42 L 99 07/03/22 13:47 07/03/22 13:47 07/03/22 13:47 07/03/22 13:47 07/03/22 12:00 General: Alert, In no apparent distress, Oriented x3 HEENT: Atraumatic, Normocephalic Neck: Supple, 2+ carotid pulse no bruit, JVD not distended Respiratory: Clear to auscultation bilaterally, Normal air movement Cardiovascular: Normal pulses, Regular rate/rhythm, Normal S1 S2 Capillary refill: Other (left AVF) Gastrointestinal: Normal bowel sounds, Hypoactive Musculoskeletal: Other (right BKA, dsg over left 4th fnger digit ) Neurological: Normal speech, Normal strength at 5/5 x4 extr, Cranial nerves 3-12 intact - Problems (1) Cellulitis of ring finger of left hand Current Visit: Yes Status: Acute (2) Gangrene of finger of left hand Current Visit: Yes Status: Acute (3) DM2 (diabetes mellitus, type 2) Current Visit: Yes Status: Chronic Qualifiers: Diabetes mellitus half-way insulin use: with half-way use Diabetes mellitus complication status: with skin complications Diabetes mellitus complication detail: with other skin complication Qualified Code(s): E11.628 - Type 2 diabetes mellitus with other skin complications; Z79.4 - retirement (current) use of insulin (4) ESRD (end stage renal disease) Current Visit: Yes Status: Chronic (5) HTN (hypertension) Current Visit: Yes Status: Chronic Qualifiers: Hypertension type: primary hypertension Qualified Code(s): I10 - Essential (primary) hypertension Physician Review: Patient Assessed, Agree with Above Assessment and Plan Physician Review Additional Text: ESRD Left hand AV fistula Left hand fourth digit gangrene/cellulitis History of amputation Diabetes mellitus PVD status post right BKA Plan Continue HD in a.m./MWF -Status post debridement of left fourth finger output since same hand with AV fistula, may need to rule out steal syndrome Will follow blood flow in dialysis tomorrow and after arterial pulsation, patient may benefit from angioplasty of the AV fistula if poor blood flow or suspected steal syndrome. We will consult vascular surgery to further evaluate Continue HD in a.m./QB/QF 350/700 K of 3.5/UF 0 to 1 L Volume status Time Spent Managing Pts care (In Minutes): 60
--- NOTE | 2022-07-03 17:07 | RAD REPORT ---
EXAM DESCRIPTION: RAD - Hand Left 3 View - 07/02/2022 11:43 pm CLINICAL HISTORY: 62 years Female PAIN COMPARISON: June 27, 2022 TECHNIQUE: 3 images of the left hand were obtained. FINDINGS: No acute fractures seen. No abnormal periosteal reaction noted. Prominent soft tissues PIP joints as well as second and third metacarpal phalangeal joints unchanged. Erosive changes first met acarpal phalangeal joint unchanged. Normal bony mineralization. No erosive or lytic lesions seen. Vascular calcifications. No radiopaque foreign body. IMPRESSION: No acute fracture or dislocation seen. Findings unchanged when correlated with the prior study. Mild degenerative changes again seen. Electronically signed by: Leida Zavala MD 07/03/2022 12:13 AM TAX RECORD CLERK Due to temporary technical issues with the PACS/Fluency reporting system, reports are being signed by the in house radiologists without review as a courtesy to insure prompt reporting. The interpreting radiologist is fully responsible for the content of the report.
--- NOTE | 2022-07-03 17:08 | P.PN ---
Date of Service: 07/03/22 Patient seen and examined. Diagnosis: Left hand fourth digit gangrene/cellulitis ESRD Left hand AV fistula History of amputation Diabetes mellitus PVD status post right BKA Plan: Patient seen by plastic surgery-Dr. Olmos for debridement. She has a history of peripheral vascular disease. Steal syndrome also suspected. Patient will need an angiogram. Will consult Dr. Lara for angiogram. Seen by nephrology. Hemodialysis per nephrology. Pain management as needed.
--- NOTE | 2022-07-03 17:31 | OP ---
Surgeon: Daniel Christy MD Preoperative Diagnosis: Gangrene of the left ring finger. Postoperative Diagnosis: Gangrene of the left ring finger. Procedure: Amputation of the left ring finger and flap closure at the DIP level. Anesthesia: General. Description Of The Procedure: After satisfactory induction of general anesthesia, left arm prepped with Betadine scrub, Betadine paint. Dry sterile drapes were placed in usual manner. Elliptical incision was made around the open area. Dissection carried down to the radial side proximal to the DIP joint. The DIP joint was incised with scalpel and cultures were taken. The bone and articular cartilage were removed with a rounger and smoothed. Wound was jet lavaged, irrigated with 3 L of Betadine solution. The flap was then closed with 4-0 Prolene simple sutures, dressed with Xeroform, 2-inch Eliane. Patient tolerated procedure well and returned to recovery. MICHELLE/EDOUARD Voice ID: [id number] Report ID: [id number] SIMBA
--- NOTE | 2022-07-03 17:46 | HP ---
Date of Admission: 07/03/2022 History Of Present Illness: The patient is a 62-year-old black female who is left-hand dominant who had a fistula in her left forearm about 3 or 4 years ago and about a month ago. Also about a month ago, she accidentally hit her left ring finger and dislocated nail bed and it then got infected and now she has dry gangrene of the left middle finger. She has history of diabetes, renal failure, hypertension, CHF, thyroid disease. She has had previous fistulas and right BKA. Social History: She does not smoke or drink. Allergies: NO ALLERGIES. Present Medications: See her list. Physical Examination: Vital Signs: 5 feet 2 inches, 120 pounds. Extremities: Dry gangrene radial half of distal phalanx involving the nail bed area. Assessment: Dry gangrene. Plan: Amputation probably at the distal phalanx level. MICHELLE/EDOUARD Voice ID: [id number] MTDD
[2022-07-03 19:32] LABS: Hepatitis B surface AG Interp. Nonreactive (Nonreactive)
[2022-07-03] MEDS: AMPICILLIN/SULBACT 3 GM in NA CHLORIDE 0.9% 100 ML IVPB SCH (21:31)
[2022-07-03] MEDS: ACETAMINOPHEN 500 MG TAB PO PRN (22:33)
[2022-07-04] MEDS: ACETAMINOPHEN 500 MG TAB PO PRN (02:15)
[2022-07-04 04:59] LABS: Absolute Lymphocytes (CBC) 1.1 K/uL (0.7-4.9); Hematocrit 34.4 % (36.0-45.0); Lymphocytes % 13.3 % (15.3-44.8); MCV 97.2 fL (80-100); MPV 10.3 fL (7.6-11.3); RBC Red Blood Cell Count 3.54 M/uL (3.86-4.86)
[2022-07-04] MEDS: INSULIN -REGULAR HUMAN 50 UNIT/0.5 ML ML SQ SCH ×4 (06:00→18:32)
--- NOTE | 2022-07-04 08:49 | RAD REPORT ---
EXAM DESCRIPTION: US - Extremity Nonvascular Complete - 07/04/2022 1:48 am CLINICAL HISTORY: possible steal syndrome Arm pain COMPARISON: No comparisons TECHNIQUE: Real-time sonographic evaluation of the area of interest was performed. FINDINGS: Turbulent flow is seen through a left arm graft. No significant flow reversal evident. No high-grade stenosis or occlusion.
--- NOTE | 2022-07-04 13:29 | P.DS ---
Admission Date: 07/03/22 Discharge Date: 07/04/22 Disposition: ROUTINE DISCHARGE Discharge Condition: FAIR Reason for Admission: Cellulitus/Gangrene L 4th Digit - Problems (1) Arteriovenous fistula of left upper extremity Status: Acute (2) Cellulitis of ring finger of left hand Status: Acute (3) Gangrene of finger of left hand Status: Acute (4) DM2 (diabetes mellitus, type 2) Status: Chronic Qualifiers: Diabetes mellitus fdc insulin use: with exterminator termite use Diabetes mellitus complication status: with skin complications Diabetes mellitus complication detail: with other skin complication Qualified Code(s): E11.628 - Type 2 diabetes mellitus with other skin complications; Z79.4 - intermediate (current) use of insulin (5) ESRD (end stage renal disease) Status: Chronic Brief History of Present Illness: Patient is a 62 year old female with past medical history of hypertension, insulin dependent type 2 diabetes, ESRD on HD, chronic diastolic CHF, hypothyroidism, and previous CVAs who presented to the emergency department with left 4th finger infection/pain. Patient is taiwanese speaking only. Son at bedside translating. Patient stated that she initially injured it, by jamming it, about 1 week ago and was treating it with topical and oral antibiotics. However, it did not improved. She presented with gangrenous apperance at the tip of the 4th left finger with surrounding erythema. No significant lab abnormalities. Dr. Christy was contacted who recommended taking patient to OR for debriedment. She was admitted to hospitalist service for further management. Hospital Course: Patient admitted to the medical floor and treated with IV Unasyn. She was seen in consultation by Dr. Nimco Cohn who performed proximal phalanx amputation. Wound culture currently growing gram-negative rods. Noted patient has an AV fistula as dialysis access on that upper extremity making steal syndrome possible. She was seen in consultation by nephrology Dr. Chao who recommended vascular surgery evaluation. Patient will likely need an angiogram. She was seen by infectious disease for antibiotic management. Patient is clinically stable for discharge Vital Signs/Physical Exam: Temp Pulse Resp BP Pulse Ox 97.4 F 85 14 136/73 99 07/04/22 12:00 07/04/22 12:00 07/04/22 12:00 07/04/22 12:00 07/04/22 12:00 General: Alert, In no apparent distress, Oriented x3 HEENT: Mucous membr. moist/pink Neck: Supple, JVD not distended Respiratory: Clear to auscultation bilaterally, Normal air movement Cardiovascular: Regular rate/rhythm Gastrointestinal: Normal bowel sounds, Soft and benign, Non-distended, No tenderness Musculoskeletal: Other (Left fourth finger distal phalanx amputation) Integumentary: No rashes, No cyanosis Neurological: Normal strength at 5/5 x4 extr Laboratory Data at Discharge: WBC 8.00 K/uL (4.3-10.9) 07/04/22 04:45 Hgb 10.8 g/dL (12.0-15.0) L 07/04/22 04:45 Hct 34.4 % (36.0-45.0) L 07/04/22 04:45 Plt Count 141 K/uL (152-406) L 07/04/22 04:45 Sodium 136 mmol/L (136-145) 07/04/22 04:45 Potassium 4.0 mmol/L (3.5-5.1) D 07/04/22 04:45 BUN 40 mg/dL (7-18) H 07/04/22 04:45 Creatinine 4.70 mg/dL (0.55-1.02) H 07/04/22 04:45 Glucose 211 mg/dL (74-106) H 07/04/22 04:45 Total Bilirubin 2.4 mg/dL (0.2-1.0) H 07/03/22 01:30 AST 21 U/L (15-37) 07/03/22 01:30 ALT 15 U/L (13-56) 07/03/22 01:30 Alkaline Phosphatase 317 U/L (45-117) H 07/03/22 01:30 Home Medications: Levothyroxine [Synthroid*] 25 mcg PO MLOCW2BS 05/26/18 Ergocalciferol (Vitamin D2) [Vitamin D2] 50,000 unit PO DIRECTED 08/08/20 Furosemide 20 mg PO DAILY 08/08/20 Insulin -Regular Human [Novolin -R*] 12 unit SQ TIDWM 08/08/20 Ascorbic Acid [Vitamin C*] 500 mg PO DAILY #14 tablet 07/27/21 Aspirin [Aspirin EC 81 MG] 81 mg PO DAILY #30 07/27/21 Atorvastatin Calcium [Lipitor*] 40 mg PO BEDTIME #14 tab 07/27/21 Cholecalciferol (Vitamin D3) [Vitamin D 1000 Iu Tab*] 1,000 unit PO DAILY #10 tab 07/27/21 Clopidogrel Bisulfate [Plavix*] 75 mg PO DAILY #30 tablet 07/27/21 Mometasone/Formoterol [Dulera 200 Mcg/5 Mcg Inhaler] 2 puff IH BID inhaler 07/27/21 Thiamine HCl [Vitamin B-1*] 100 mg PO DAILY #14 tablet 07/27/21 Zinc Sulfate [Zinc Sulfate*] 220 mg PO DAILY #14 cap 07/27/21 Epoetin [Retacrit] 4,000 unit IV EVERY HD vial 08/03/21 Heparin [Heparin 1,000 units/mL *] 4,000 unit IV EVERY HD PRN vial 08/03/21 Isosorbide Mononitrate [Isosorbide Mononitrate ER] 30 mg PO DAILY #30 tab.er.24h 08/03/21 Metoprolol Tartrate [Lopressor*] 12.5 mg PO BID 6AM 6PM #60 tab 08/03/21 Codeine/APAP [Tylenol #3*] 1 tab PO Q4HP PRN #20 tab 07/04/22 Silver Sulfadiazine Crm [Silvadene*] 1 appl TOP TID #1 jar 07/04/22 levoFLOXacin [Levaquin] 500 mg PO Q48H #7 tab 07/04/22 New Medications: Codeine/APAP [Tylenol #3*] 1 tab PO Q4HP PRN #20 tab PRN Reason: Pain Scale 5-7 (Moderate) levoFLOXacin [Levaquin] 500 mg PO Q48H #7 tab Silver Sulfadiazine Crm [Silvadene*] 1 appl TOP TID #1 jar Physician Discharge Instructions: Keep wound dressing clean, dry and intact Diet: Renal Activity: Ad marlin Followup: Daniel Christy MD [ACTIVE - CAN ADMIT] - 07/07/22 9:00 am (Follow up in the [facility] office: [address] [place], [address]) JARAD MUNOZ [OUTSIDE PHYSICIAN] - 1-2 Weeks (Vascular Surgery) Time spent managing pt's care (in minutes): 34
--- NOTE | 2022-07-04 15:15 | P.PN ---
Subjective Date of Service: 07/04/22 Chief Complaint: Cellulitus/Gangrene L 4th Digit Subjective: No new changes (tolerating po well) Physical Examination - Vital Signs Temperature: 97.4 F Blood Pressure: 136/73 Pulse: 85 Respirations: 14 Pulse Ox (%): 99 - Physical Exam General: Alert, In no apparent distress, Oriented x3 HEENT: Atraumatic Neck: Supple, 2+ carotid pulse no bruit Respiratory: Clear to auscultation bilaterally, Normal air movement Cardiovascular: No edema, Normal pulses, Other (BKA, left AVF , dsg over left finger ) Gastrointestinal: Normal bowel sounds, Soft and benign, Non-distended Musculoskeletal: No clubbing, No swelling Neurological: Normal speech, Normal strength at 5/5 x4 extr Assessment And Plan - Current Problems (Diagnosis) (1) Cellulitis of ring finger of left hand Current Visit: Yes Status: Acute (2) Gangrene of finger of left hand Current Visit: Yes Status: Acute (3) DM2 (diabetes mellitus, type 2) Current Visit: Yes Status: Chronic Qualifiers: Diabetes mellitus halfway insulin use: with halfway use Diabetes mellitus complication status: with skin complications Diabetes mellitus complication detail: with other skin complication Qualified Code(s): E11.628 - Type 2 diabetes mellitus with other skin complications; Z79.4 - [facility] (current) use of insulin (4) ESRD (end stage renal disease) Current Visit: Yes Status: Chronic (5) HTN (hypertension) Current Visit: Yes Status: Chronic Qualifiers: Hypertension type: primary hypertension Qualified Code(s): I10 - Essential (primary) hypertension Physician Review: Patient Assessed, Agree with Above Assessment and Plan Physician Review Additional Text: 07/04/22 15:13 ESRD - c/w HD today/MWF HTN -controlled Hypokalemia-resolved DM PVD with BKA left finger necrosis - s/p possible steal syndrome PLAN - continue HD today tolerating no UF well volume status controlled C/W ABX , RENALLY DOSE all meds unable to obtain vascular angiogram of AVF to r/o steal syndrome , can follow as outpt
[2022-07-04] MEDS: AMPICILLIN/SULBACT 3 GM in NA CHLORIDE 0.9% 100 ML IVPB SCH (21:00)
--- NOTE | 2022-07-04 21:14 | CON ---
History Of Present Illness: Patient is a 62-year-old female I was consulted for evaluation of left 4 th ring finger partial amputation of distal phalanx as patient's wound cultures are growing 4+ gram-n egative rods. Patient has significant past medical history of end-stage renal disease, hypertension, type 2 diabetes mellitus, congestive heart failure, hypothyroidism, previous stroke, came in because she jammed her ring finger about a week ago prior to admission. Past Medical History: As per HPI. Social History: Nonsmoker, nondrinker. Family History: Noncontributory. Medications: Unasyn. See MAR for other medications. Allergies: NO KNOWN DRUG ALLERGIES. Review of Systems: 10-point review was performed. Physical Examination: General: This is a 62-year-old female, lying in bed, not in any acute cardiopulmonary distress. Vital Signs: Temperature 97.2, pulse 85, respirations 14, blood pressure 117/57. Lungs: Basal crackles. Heart: S1, S2. Regular. Abdomen: Soft, nontender. Bowel sounds present. Extremities: Left right finger with surgical dressing on it, small amount of blood at the tip of the dressing. Laboratory Data: WBC 8, hemoglobin 10.8, platelets 141. BUN of 40, creatinine 4.7. Assessment And Plan: A 62-year-old female with end-stage renal disease, coming in status post trauma to the left ring finger, status post amputation of distal phalanx for digital gangrene and celluliti s. End-stage renal disease, left hand arteriovenous fistula, diabetes mellitus, anemia of chronic di sease. We will recommend awaiting culture results. Patient can be switched to Levaquin 500 mg q.48 hours and Silvadene to the wound site daily for the next 2 weeks. Monitor patient for signs of infec tion and cellulitis. We will follow the patient closely. Thank you Dr. Mireles for consult. NF/MODL Voice ID: [id number] Report ID: [id number]
[2022-07-05 03:44] VITALS: BP 131/69; TEMP 98; O2SAT 93
== END 2022-07-05 00:35 | disposition home or self-care (01) | DRG 255 ==
LOC: ER 22:21 → ERHOLD 07-03 00:20 → 2ND 07-03 02:44
PROVIDERS: ADMIT Internal Medicine; ATTEND Internal Medicine
PROC: 0X6T0Z1 Detachment at Left Ring Finger, High, Open Approach (ICD-10-PCS; principal; 2022-07-03 12:30)
PROC: 5A1D70Z Performance of Urinary Filtration, Intermittent, Less than 6 Hours Per Day (ICD-10-PCS; 2022-07-04)
DX: E11.52 Type 2 diabetes mellitus with diabetic peripheral angiopathy with gangrene (principal); N18.6 End stage renal disease; I50.32 Chronic diastolic (congestive) heart failure; I13.2 Hypertensive heart and chronic kidney disease with heart failure and with stage 5 chronic kidney disease, or end stage renal disease; L03.012 Cellulitis of left finger; E11.22 Type 2 diabetes mellitus with diabetic chronic kidney disease; E11.628 Type 2 diabetes mellitus with other skin complications; D63.1 Anemia in chronic kidney disease; E87.6 Hypokalemia; I77.0 Arteriovenous fistula, acquired; E03.9 Hypothyroidism, unspecified; I25.10 Atherosclerotic heart disease of native coronary artery without angina pectoris; S62.635A Displaced fracture of distal phalanx of left ring finger, initial encounter for closed fracture; Z95.5 Presence of coronary angioplasty implant and graft; Z79.4 Long term (current) use of insulin; Z99.2 Dependence on renal dialysis; Z86.73 Personal history of transient ischemic attack (TIA), and cerebral infarction without residual deficits; Z79.82 Long term (current) use of aspirin; Z90.49 Acquired absence of other specified parts of digestive tract; Z79.02 Long term (current) use of antithrombotics/antiplatelets; Z79.899 Other long term (current) drug therapy; Z89.511 Acquired absence of right leg below knee; Z79.890 Hormone replacement therapy; Z20.822 Contact with and (suspected) exposure to COVID-19
CPT/HCPCS: 36415; 76881; 80048; 80053; 82947; 85025; 87040; 87070; 87075; 87077; 87186; 87205; 87340; 87811; 88305; 90935; 96365; 96375; 99285; J0295; J1815; J2001; J2250; J2270; J2370; J2405; J2704; J3010; J7030; J7040

== ENCOUNTER 2022-07-22 09:30 | Day surgery (SDC) | payer OTHER ==
--- NOTE | 2022-07-22 09:41 | RAD REPORT ---
EXAM DESCRIPTION: RAD - Chest Pa And Lat (2 Views) - 07/22/2022 9:27 am CLINICAL HISTORY: pre op for surgery COMPARISON: None TECHNIQUE: Frontal and lateral views of the chest were obtained with the patient in a wheelchair. FINDINGS: The lungs are clear of peripheral mass or consolidation. Interstitial pattern is less prom inent than seen on the 2021 comparison. No failure or volume overload. No active lung parenchymal pro cess suspected. Heart size is upper normal to mildly enlarged but not clearly different from comparison. No acute v ascular engorgement. Trachea is in the midline. No pleural effusion or pneumothorax seen. No acute bony finding noted. No aortic abnormality. IMPRESSION: No acute cardiopulmonary process. Heart size is upper normal to slightly enlarged but unchanged. No acute failure or volume overload fi ndings.
[2022-07-22 09:42] LABS: Absolute Lymphocytes (CBC) 0.6 K/uL (0.7-4.9); Hematocrit 37.5 % (36.0-45.0); Lymphocytes % 7.5 % (15.3-44.8); MCV 97.7 fL (80-100); MPV 10.1 fL (7.6-11.3); RBC Red Blood Cell Count 3.84 M/uL (3.86-4.86)
[2022-07-22] MEDS ORDERED: CEFAZOLIN SODIUM 1 GM/VIAL ONE (10:02)
[2022-07-22 10:25] LABS: Anisocytosis 1+; Blood Morphology Comment NOTED (NOT SEEN); Platelet Estimate DECR; White Blood Cell Scan OK (OK)
[2022-07-22 10:26] LABS: Target Cells 1+
[2022-07-22] MEDS: NA CHLORIDE 0.9% 500 ML ONE ×2 (10:33→11:22)
[2022-07-22] MEDS ORDERED: INSULIN -REGULAR HUMAN 50 UNIT/0.5 ML ML ONE ×2 (10:54→12:36)
[2022-07-22] MEDS ORDERED: FENTANYL CITR 100 MCG/2 ML ONE (11:28)
[2022-07-22] MEDS ORDERED: propofoL 200 MG/20 ML VIAL IV ONE (11:28)
[2022-07-22] MEDS: FENTANYL CITR 100 MCG/2 ML ONE ×2 (12:55→13:02)
[2022-07-22 13:10] VITALS: O2SAT 98
[2022-07-22 15:07] VITALS: BP 114/54; TEMP 97.2
--- NOTE | 2022-08-06 07:58 | OP ---
Surgeon: Daniel Christy MD Preoperative Diagnosis: Gangrene of the left ring finger. Postoperative Diagnosis: Gangrene of the left ring finger. Procedure Performed: Amputation of left ring finger at the proximal phalanx level with flap closure. Anesthesia: General. Procedure In Detail: After satisfactory induction of general anesthesia, left hand was prepped with Betadine scrub and Betadine paint. Dry sterile drapes were applied in usual manner. The hand was pl aced on Roto Lock table. Elliptical incision was made around the proximal phalanx. Incision was car ried down to the extensor tendon. Flexor tendons were cut. The bone was cut with a bone cutter and then the wound was irrigated with Betadine solution and then the flaps were advanced and closed with 4-0 Prolene with vertical mattress simple sutures. Dressed with Xeroform, 2 inch Eliane, and Kerlix. The patient tolerated procedure well and returned to recovery. MICHELLE/EDOUARD Voice ID: [id number] Report ID: [id number]
== END 2022-07-22 14:27 | disposition home or self-care (01) ==
LOC: OR 09:30
PROVIDERS: ATTEND Specialist
PROC: 0X6T0Z1 Detachment at Left Ring Finger, High, Open Approach (ICD-10-PCS; principal; 2022-07-22 11:00)
DX: I96 Gangrene, not elsewhere classified (principal); S61.304A Unspecified open wound of right ring finger with damage to nail, initial encounter; L08.9 Local infection of the skin and subcutaneous tissue, unspecified
CPT/HCPCS: 85025; 36415; 82947 ×3; 88305; 71046; 26952; J2704; J1815 ×2; J3010 ×2; J7040; J0690

== ENCOUNTER 2022-07-25 12:58 | Emergency (ER) | payer OTHER ==
--- OUTSIDE RECORDS SUMMARY | 2022-07-25 13:14 | XMS REPORT | Continuity of Care Document ---
:1960 Author Organization [facility] t Address [address] [place] [id number] Care Team Providers Name Role Phone Pcp, Patient Does Not Have A Primary Care Physician [id number] Doctor Unassigned, [place] Attending Clinician Unavailable Shoaib [place] Attending Clinician Ariela Khalil Attending Clinician Ariela Khalil Admitting Clinician Payers Payer Name Policy Type Policy Number Effective Date Expiration Date Bibi Bryant C1 [id number] Common [employer] [facility] Problems Condition Condition Condition Status Onset Resolution Last Treating Co mments Source Name Details Category Date Date Treatment Clinician Date Thyroid Thyroid Disease Active 2018-06 [facility] nodule nodule 2-13 ity of 00:00: [address] Acquired Acquired Disease Active 2018-06 Unive rs hypothyroi hypothyroi 2-13 it y of dism dism 00:00: [address] 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-13 ity of mellitus mellitus 00:00: [place] with with 00 Medical diabetic diabetic Branch polyneurop polyneurop athy, athy, without without long-term long-term current current use of use of insulin insulin History of History of Disease Active 2018-06 U nivers cerebrovas cerebrovas 2-13 it y of cular cular 00:00: [place] disease disease 00 Medical Branch Amputated Amputated Disease Active 2018-06 Uni vers right leg right leg 2-13 ity of 00:00: [place] 00 Medical Branch N N Active Diagnosis Active 2018-08-20 Memoria 07/13/201807-13 16:53:00 l MH 00:00: [place] [facility] 00 Cerebral Cerebral Problem Active 2020-06-10 Memoria hemorrhage hemorrhage 01:37:21 l (disorder) (disorder) [place] [facility] Active Problem 06/10/2020 [facility] Diabetes Diabetes Problem Active 2020-06-10 Memoria mellitus mellitus 01:37:21 l (disorder) (disorder) [place] Active Problem 06/10/2020 [facility] Dizziness Dizziness Problem Active 2020-06-10 Memoria (finding) (finding) 01:37:21 l Active [place] Problem 06/10/2020 [facility] 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 01:37:21 l failure on failure on He rmann dialysis dialysis (disorder) (disorder) Active Problem 06/10/2020 [facility] Headache Headache Problem Active 2020-06-10 Memoria (finding) (finding) 01:37:21 l Active [place] Problem 06/10/2020 [facility] Hypertensi Hypertens Problem [...] Allergie 06-28 Clear s 00:00: [place] 00 [facility] Social History Social Habit Start Date Stop Date Quantity Comments Source Tobacco use and 2019-06-03 2019-06-03 Smokeless tobacco Un iversity of exposure 00:00:00 00:00:00 non-user [facility] Sex Assigned At [birth year] [facility] 00:00:00 00:00:00 [facility] Smoking Status Start Date Stop Date Source Unknown if ever smoked Common Sp dede [facility] Social History [facility] Medications Ordered Filled Start Stop Current Ordering Indication Dosage Frequency Signature Comments Components Source Medication Medication Date Date Medication? Clinician (SIG) Name Name TOMOvidio No GREGORIA(3) 1-07 TABLETA(S) 00:00: [place] 00 CON COMIDAS. Dose No Unknown 06-28 00:00: 00 TOME 2021-06 No GREGORIA(3) 0-04 TABLETA(S) 00:00: [place] 00 CON COMIDAS. TOM2021-06 No GREGORIA(3) 0-04 TABLETA(S) 00:00: POR LA [...] Unknown 8-10 00:00: 00 INJECT 2022-0 No [id number] TWICE DAILY 8-10 PER SLIDING 00:00: SCALE. 00 Dose 2022-0 No 800 Unknown 8-10 00:00: 00 Dose 2022-0 No Unknown 8-10 00:00: 00 Dose 2022-0 No Unknown 8-10 00:00: 00 Dose 2022-0 No 4 Unknown 8-10 00:00: 00 Dose 2022-0 No 6 Unknown 8-10 00:00: 00 Dose 2022-0 No Unknown 8-10 00:00: 00 INJECT 2022-0 No [id number] TWICE DAILY 8-10 PER SLIDING 00:00: SCALE. 00 Dose 2-0 No 800 Unknown 8-10 00:00: 00 Dose 2-0 No Unknown 8-10 00:00: 00 Dose 2-0 No Unknown 8-10 00:00: 00 Dose 2-0 No 4 Unknown 8-10 00:00: 00 Dose 2-0 No 6 Unknown 8-10 00:00: 00 Dose 2-0 No Unknown 8-10 00:00: 00 INJECT 2022-0 No [id number] TWICE DAILY 8-10 PER SLIDING 00:00: SCALE. [...] GREGORIA VECES AL TAMIKO. INJECT 2-0 No [id number] TWICE DAILY 8-10 PER SLIDING 00:00: SCALE. [...] 00 GREGORIA VECES AL TAMIKO. INJECT No [id number] TWICE DAILY 8-10 PER SLIDING 00:00: SCALE. [...] VEZ AL TAMIKO. INJECT No UNDER THE - SKIN DAILY 00:00: [...] 8-09 00:00: 00 Dose 2021-0 No Unknown 01-28 00:00: 00 APPLY TO No AFFECTED 8-09 [...] No 100 8-09 00:00: 00 TOME DIXIE 0 No 50 (1) 8-09 TABLETA(S) 00:00: POR [place] BOC[place] 00 DIXIE VEZ AL TAMIKO. &lt 0 No 100 8- 00:00: 00 Dose 2021-0 No Unknown - 00:00: 00 APPLY TO 0 No AFFECTED 8-09 AREA 30 00:00: MINUTES 00 BEFORE TREATMENT. TOME MEDIA No 25 (1/2) 8-09 TABLETA(S) 00:00: POR [place] B[place] 00 DOS VECES AL TAMIKO. (6AM Y 6PM). TOME DIXIE 0 No 25 (1) 8-09 TABLETA(S) 00:00: POR LA BOCA 00 DIXIE VEZ AL TAMIKO. Dose 2021-0 No Unknown 8- 00:00: 00 TOME DIXIE [...] 8- 00:00: 00 Dose 2021-0 No Unknown - 00:00: 00 APPLY TO 0 No AFFECTED - AREA 30 00:00: MINUTES 00 BEFORE TREATMENT. TOME MEDIA No 25 (1/2) 8-09 TABLETA(S) 00:00: POR LA BOCA 00 DOS VECES AL TAMIKO. (6AM Y 6PM). TOME DIXIE No 25 (1) 8-09 TABLETA(S) 00:00: POR LA BOCA 00 DIXIE VEZ AL TAMIKO. Dose 2021-0 No Unknown 01-28 00:00: 00 TOME DIXIE 2021-0 No 50 [...] VEZ AL TAMIKO. Dose 2021-0 No Unknown 8- 00:00: 00 TOME DIXIE 0 No [...] DIXIE VEZ AL TAMIKO. TOME No GREGORIA(3) - TABLETA(S) 00:00: POR LA [...] 00:00: 00 TOME DIXIE 2021-0 No (1) 12-20 TABLETA(S) 00:00: POR LA BOCA 00 DIXIE [...] 6-11 PAQUETE(S) 00:00: POR LA BOCA 00 GREGOIRA VECES AL TAMIKO CON COMIDAS. TOME DIXIE [...] 25 6-11 mg tablet 00:00: 00 Lantus No 10(3 Solostar 6-11 mL) U-100 [...] 6-11 TABLETA(S) 00:00: POR [place] BOCA 00 DXIIE VEZ AL TAMIKO. TOME DIXIE No (1) [...] POR LA BOCA 00 DIXIE VEZ AL TMAIKO EN LA TARDE. TOME MEDIA No (1/2) [...] VEZ AL TAMIKO. Dose 0 No Unknown 1-06 00:00: 00 Dose 2021-0 No Unknown 1-06 00:00: 00 amlodipine No 1mg 10 mg [...] n 40 mg 5-30 tablet 00:00: 00 Levothyroxi 2020-0 Yes 25 Memori a ne Sodium 5-28 microgram l 0.025 MG 20:33: = 1 tab, Jossie nn Oral Tablet 00 PO, Daily, [Synthroid] 0 Refill(s) amLODIPine 2020-0 Yes 10 mg = 1 Me moria 10 mg oral 5-28 tab, PO, l tablet 20:33: Daily, 0 [place] 00 Refill(s) Aspirin 81 2020-0 Yes 81 [...] tab, PO, l tablet 20:33: BID, 0 [place] 00 Refill(s) clopidogrel 2020-0 Yes 75 mg [...] Refill(s) Vladimir MG/ACTUAT 00 Metered Dose Nasal Fults gabapentin 2020-0 Yes 100 mg = 1 [...] tab, PO, l tablet 20:33: Daily, 0 [place] 00 Refill(s) Aspirin 81 2020-0 Yes 81 mg = 1 Me moria MG Enteric 5-28 tab, PO, l Coated 20:33: Daily, # [place] Tablet 00 90 tab, 3 Refill(s) amLODIPine 2020-0 Yes 10 mg = 1 Me moria 10 mg oral 5-28 tab, PO, l tablet 20:33: Daily, 0 [place] 00 Refill(s) Aspirin 81 2020-0 Yes 81 mg = 1 Me moria MG Enteric 5-28 tab, PO, l Coated 20:33: Daily, # [place] Tablet 00 90 tab, 3 Refill(s) atorvastati 2020-0 Yes 40 mg = 1 M emoria n 40 mg 5-28 tab, PO, l oral tablet 20:33: Daily, 0 He rm Refill(s) carvedilol 2020-0 Yes 25 mg = 1 Me moria 25 mg oral 5-28 tab, PO, l tablet 20:33: BID, 0 Vladimir Refill(s) clopidogrel 2020-0 Yes 75 mg = 1 M emoria 75 mg oral 5-28 tab, PO, l tablet 20:33: Daily, 0 [place] 00 Refill(s) cyclobenzap 2020-0 Yes 10 mg = 1 M emoria rine 10 mg 5-28 tab, PO, l oral tablet 20:33: TID, 0 Herm nilay Refill(s) Fluticasone 2020-0 Yes NASAL, [place] titus propionate 5-28 Daily, 0 l 0.05 20:33: Refill(s) [place] MG/ACTUAT 00 Metered Dose Nasal Fults gabapentin 2020-0 Yes 100 mg = 1 M emoria 100 MG Oral 5-28 cap, PO, l Capsule 20:33: Bedtime, 0 Herm nilay Refill(s) Insulin 2020-0 Yes 10 unit, Memori a Glargine 5-28 SUB-Q, l 100 UNT/ML 20:33: Bedtime, # H ermann Injectable 00 10 mL, 0 Solution Refill(s) [Lantus] Novolin R 2020-0 Yes 12 unit, [place] titus 5-28 SUB-Q, l 20:33: ONCE, 0 [place] 00 Refill(s) Levothyroxi 2020-0 Yes 25 Memori a ne Sodium 5-28 microgram l 0.025 MG 20:33: = 1 tab, Jossie nn Oral Tablet 00 PO, Daily, [Synthroid] 0 Refill(s) atorvastati 2020-0 Yes 40 mg = 1 M emoria n 40 mg 5-28 tab, PO, l oral tablet 20:33: Daily, 0 He rm Refill(s) carvedilol 2020-0 Yes 25 mg = 1 Me moria 25 mg oral 5-28 tab, PO, l tablet 20:33: BID, 0 [place] 00 Refill(s) clopidogrel 2020-0 Yes 75 mg = 1 M emoria 75 mg oral 5-28 tab, PO, l tablet 20:33: Daily, 0 [place] Refill(s) cyclobenzap 2020-0 Yes 10 mg = 1 M emoria rine 10 mg 5-28 tab, PO, l oral tablet 20:33: TID, 0 Herm nilay Refill(s) Fluticasone 2020-0 Yes NASAL, [place] titus propionate 5-28 Daily, 0 l 0.05 20:33: Refill(s) [place] MG/ACTUAT 00 Metered Dose Nasal Fults gabapentin 2020-0 Yes 100 mg = 1 [...] tab, PO, l tablet 20:33: Daily, 0 [place] 00 Refill(s) Aspirin 81 2020-0 Yes 81 mg = 1 Me moria MG Enteric 5-28 tab, PO, l Coated 20:33: Daily, # [place] Tablet 00 90 tab, 3 Refill(s) atorvastati 2020-0 Yes 40 mg = 1 M emoria n 40 mg 5-28 tab, PO, l oral tablet 20:33: Daily, 0 He rmann Refill(s) carvedilol 2020-0 Yes 25 mg = [...] 5-28 Daily, 0 l 0.05 20:33: Refill(s) [place] MG/ACTUAT 00 Metered Dose Nasal Fults gabapentin 2019-0 Yes 100 mg = 1 M emoria 100 MG Oral 5-28 cap, PO, l Capsule 20:33: Bedtime, 0 Herm nilay Refill(s) Insulin 2020-0 Yes 10 unit, Memori a Glargine - SUB-Q, l 100 UNT/ML 20:33: Bedtime, # H ermann Injectable 00 10 mL, 0 Solution Refill(s) [Lantus] Novolin R 2020-0 Yes 12 unit, [place] titus 5-28 SUB-Q, l 20:33: ONCE, 0 [place] 00 Refill(s) Levothyroxi 2020-0 Yes 25 Memori a ne Sodium 5- microgram l 0.025 MG 20:33: = 1 tab, Jossie nn Oral Tablet 00 PO, Daily, [Synthroid] 0 Refill(s) amLODIPine 2020-0 Yes 10 mg = 1 Me moria 10 mg oral 5-28 tab, PO, l tablet 20:33: Daily, 0 [place] 00 Refill(s) Aspirin 81 2020-0 Yes 81 [...] tab, PO, l tablet 20:33: BID, 0 [place] 00 Refill(s) clopidogrel 2020-0 Yes 75 mg = 1 M emoria 75 mg oral 5-28 tab, PO, l tablet 20:33: Daily, 0 [place] 00 Refill(s) cyclobenzap 2020-0 Yes 10 mg = 1 M emoria rine 10 mg 5-28 tab, PO, l oral tablet 20:33: TID, 0 Herm nilay Refill(s) Fluticasone 2020-0 Yes NASAL, [place] titus propionate 5-28 Daily, 0 l 0.05 20:33: Refill(s) [place] MG/ACTUAT 00 Metered Dose Nasal Fults gabapentin 2020-0 Yes 100 mg = 1 [...] tab, PO, l tablet 20:33: Daily, 0 [place] 00 Refill(s) Aspirin 81 2020-0 Yes 81 mg = 1 Me moria MG Enteric 5-28 tab, PO, l Coated 20:33: Daily, # [place] Tablet 00 90 tab, 3 Refill(s) atorvastati [...] tab, PO, l tablet 20:33: Daily, 0 [place] 00 Refill(s) cyclobenzap 2020-0 Yes 10 mg = 1 M emoria rine 10 mg 5-28 tab, PO, l oral tablet 20:33: TID, 0 Herm nilay Refill(s) Fluticasone 2020-0 Yes NASAL, [place] titus propionate 5-28 Daily, 0 l 0.05 20:33: Refill(s) [place] MG/ACTUAT 00 Metered Dose Nasal Fults gabapentin 2020-0 Yes 100 mg = 1 M emoria 100 MG Oral 5-28 cap, PO, l Capsule 20:33: Bedtime, 0 Herm nilay Refill(s) Insulin 2020-0 Yes 10 unit, Memori a Glargine 5-28 SUB-Q, l 100 UNT/ML 20:33: Bedtime, # H ermann Injectable 00 10 mL, 0 Solution Refill(s) [Lantus] Novolin R 2020-0 Yes 12 unit, [place] titus 5-28 SUB-Q, l 20:33: ONCE, 0 [place] 00 Refill(s) acetaminoph 2020-0 No 1mg en ER [...] 40 mg 2-04 tablet 00:00: 00 levothyroxi 2019-0 No 1mcg ne 25 mcg 2-04 tablet 00:00: 00 levothyroxi 2018-06 Yes 25ug Take 25 Uni vers ne 25 mcg 2-13 mcg by ity of tablet 10:28: mouth [place] [address] every Medical morning. Branch clopidogrel 2018-06 Yes 75mg Take 75 mg Univers 75 mg 2-13 by mouth ity of tablet 10:28: daily. [place] [address] Medical Branch atorvastati 2018-06 Yes 40mg Take 40 mg Univers n 40 mg 2-13 by mouth ity of tablet 10:28: at [place] [address] bedtime. Medical Branch gabapentin 2018- Yes 100mg Take 100 Un jen 100 mg 2-13 mg by ity of capsule 10:28: mouth 3 [place] [address] (three) Medical times Branch daily. glimepiride 2018-06 Yes 1mg Take 1 mg U nivers 1 mg tablet 2-13 by mouth ity of 10:28: daily with [place] [address] breakfast. Medical Branch BABY 2018-06 Yes Take by Univers ASPIRIN 2-13 mouth. ity of ORAL 10:28: [place] [address] Medical Branch furosemide 2018-06 No 1mg 20 [...] 20 mg 1-06 tablet 00:00: 00 clopidogrel 2019- No 1mg 75 mg 1-06 tablet 00:00: 00 atorvastati 2018- No 1mg n 40 mg 1-06 tablet 00:00: 00 levothyroxi 2018- No 1mcg ne 25 mcg 1-06 tablet 00:00: 00 Humulin R 2019- No 12unit/ Regular 1-06 mL U-100 00:00: [...] mcg 1-06 tablet 00:00: 00 Humulin R 2019- No 12unit/ Regular 1-06 mL U-100 00:00: [...] unit/mL 00 subcutaneou s solution Novolin R 2018- No 12unit/ Regular 2-13 mL U-100 00:00: Insulin 100 00 unit/mL injection solution Lantus 2017- No 10unit/ U-100 2-13 mL Insulin 100 [...] 10 mg 2-12 tablet 00:00: 00 cyclobenzap 2018-1 No 1mg rine 10 mg 2-12 tablet [...] 10 mg 2-11 tablet 00:00: 00 carvedilol 2017-06 No 1mg 25 mg 2-11 tablet 00:00: [...] unit/mL injection solution Novolin R 2018- No unit/mL Regular 1-16 [...] 25 mg 0-31 tablet 00:00: 00 hydralazine 2017-06 No 1mg 25 mg 0-31 [...] 10 mg 0-04 tablet 00:00: 00 hydralazine 2017-06 No 1mg 10 mg 0-04 tablet 00:00: 00 hydralazine 2017- No 1mg 10 mg 0-04 tablet 00:00: 00 hydralazine 2018-1 No 1mg 10 mg 0-04 tablet 00:00: 00 hydralazine 2018-1 No 1mg 10 mg 0-04 tablet 00:00: [...] (Schedule Common HCl HCl Syed IV Drug) Spirit TOME DIXIE - [facility] TABLETA[facility] CAD Center SEIS [place] PARA DOLOR. Acetaminoph Acetaminoph Yes Tre (Schedule Common en-Codeine en-Codeine Syed III Drug) Otoniel #3 #3 TOME DIXIE - [facility] TABLETA(S[facility] Medical [facility] Center SEIS [place] [place] PARA DOLOR. Levothyroxi Levothyroxi Yes Tre TOME DIXIE Common ne Sodium ne Sodium Syed (1) Spiri t TABLETA(S) - [facility] BOCA DIXIE [facility] Medical TAMIKO. Center Lisinopril Lisinopril Yes Tre MONTOYA DIXIE Common Syed (1) Spirit TABLETA(S) - [facility] BOCA DIXIE [facility] Medical TAMIKO. Center Lantus Lantus Yes Tre INYECTE 20 Co mmon SoloStar SoloStar Syed UNIDADES Spi rit DEBAJO DE - [facility] LA PIEL [facility] CADA [facility] NOC. Medical Center Carvedilol Carvedilol Yes Tre ONTIVEROSE [...] HORA ANTES - CH[facility] DEL [facility]ISIS [facility] GREGORIA VECES Medical A LA Center SEMANA. Amlodipine Amlodipine Yes Tre MONTOYA DIXIE Common Besylate Besylate Syed (1) Spirit [...] Status Commen ts Source Name Name [place] ALVARADO-Enrique 2020-10-04 Completed Vaccine 00:00:00 [place] COVID-19 2020-10-04 Completed Vaccine 00:00:00 [place] COVID-19 2020-10-04 Completed Vaccine 00:00:00 [place] COVID-19 2020-10-04 Completed Vaccine 00:00:00 [place] COVID-19 2020-10-04 Completed Vaccine 00:00:00 [place] COVID-19 2020-10-04 Completed Vaccine 00:00:00 [place] COVID-19 2020-09-05 Completed Vaccine 00:00:00 [place] COVID-19 2020-09-05 Completed Vaccine 00:00:00 [place] COVID-19 2020-09-05 Completed Vaccine 00:00:00 [place] COVID-19 2020-09-05 Completed Vaccine 00:00:00 [place] COVID-19 2020-09-05 Completed Vaccine 00:00:00 [place] COVID-19 2020-09-05 Completed Vaccine 00:00:00 zoster 2018-02-04 [...] Diastolic (mm Hg) 2020-06-07 15:31:00 Mem orial [place] Heart Rate 2020-06-07 15:31:00 [facility] [place] Respitory Rate 2020-06-07 15:31:00 Memori al [place] Height 2020-06-07 15:31:00 154.94 cm [facility] [place] Weight 2020-06-07 15:31:00 [facility] [place] BMI Calculated 2020-06-07 15:31:00 Memori al [place] BP Systolic 2020-04-18 15:07:00 168 mm[Hg] BP Diastolic 2020-04-18 15:07:00 69 mm[Hg] Weight Measured 2020-04-18 15:07:00 126.80 pounds Height Measured 2020-04-18 15:07:00 63.00 inches Body Temperature 2020-04-18 15:07:00 98.30 degrees Heart Rate 2020-04-18 15:07:00 77.00 /min Respiratory Rate 2020-04-18 15:07:00 18.00 /min Systolic (mm Hg) 2020-04-05 19:29:00 [place] rial [place] Diastolic (mm Hg) 2020-04-05 19:29:00 Mem orial [place] Heart Rate 2020-04-05 19:29:00 [facility] [place] Respitory Rate 2020-04-05 19:29:00 Memori al [place] Systolic (mm Hg) 2020-02-23 20:37:00 [place] rial [place] Diastolic (mm Hg) 2020-02-23 20:37:00 Mem orial [place] Heart Rate 2020-02-23 20:37:00 [facility] [place] Respitory Rate 2020-02-23 20:37:00 Memori al [place] Temperature Oral (F) 2020-02-23 20:37:00 98.3 F [facility] [place] Height 2020-02-23 20:37:00 157.48 cm [facility] [place] Weight 2020-02-23 20:37:00 [facility] [place] BMI Calculated 2020-02-23 20:37:00 Memori al [place] BP Systolic 2020-01-09 17:09:00 159 mm[Hg] BP Diastolic 2020-01-09 17:09:00 75 mm[Hg] Weight Measured 2020-01-09 17:09:00 132.80 pounds Height Measured 2020-01-09 17:09:00 63.00 inches Body Temperature 2020-01-09 17:09:00 98.10 degrees Heart Rate 2020-01-09 17:09:00 85.00 /min Respiratory Rate 2020-01-09 17:09:00 17.00 /min Systolic (mm Hg) 2020-01-05 20:43:00 Weston rial [place] Diastolic (mm Hg) 2020-01-05 20:43:00 Mem orial [place] Heart Rate 2020-01-05 20:43:00 [facility] [place] Respitory Rate 2020-01-05 20:43:00 Memori al [place] Temperature Oral (F) 2020-01-05 20:43:00 99.1 F [facility] [place] Height 2020-01-05 20:43:00 160.02 cm [facility] [place] Weight 2020-01-05 20:43:00 [facility] [place] BMI Calculated 2020-01-05 20:43:00 Memori al [place] BP Systolic 2019-11-19 12:06:00 213 mm[Hg] [...] Diastolic (mm Hg) 2019-11-17 20:14:00 Mem orial [place] Heart Rate 2019-11-17 20:14:00 [facility] [place] Respitory Rate 2019-11-17 20:14:[address] [facility] [place] Height 2019-11-17 20:14:00 160.02 cm [facility] [place] Weight 2019-11-17 20:14:00 [facility] [place] BMI Calculated 2019-11-17 20:14:00 Memori al Vladimir [...] Procedure Date / Time Performed Performing Clinician [facility] e REFERRAL- 2022-02-06 05:01:00 Doctor Unassigned, No [facility] REQUEST/RESPONSE Name Medical Branch BKA - Below knee [facility] Karthik n amputation Plan of Care Planned Activity Planned Date Details Comments Source Goal Plan of Care Note [code = 52326-5] Goal Plan of Care Note [code = 63234-9] Goal Plan of Care Note [code = 98911-7] Goal Plan of Care Note [code = 87794-4] Goal Plan of Care Note [code = 61874-0] Goal Plan of Care Note [code = 91993-1] Goal Plan of Care Note [code = 50874-7] Goal Plan of Care Note [code = 15500-6] Goal Plan of Care Note [code = 07761-5] Goal Plan of Care Note [code = 88531-4] Goal Plan of Care Note [code = 32784-5] Goal Plan of Care Note [code = 37131-8] Goal Plan of Care Note [code = 52811-5] Goal Plan of Care Note [code = 57318-0] Goal Plan of Care Note [code = 07507-4] Goal Plan of Care Note [code = 78283-7] Goal Plan of Care Note [code = 96525-9] Goal Plan of Care Note [code = 87369-0] Goal Plan of Care Note [code = 94530-9] Goal Plan of Care Note [code = 45038-1] Goal Plan of Care Note [code = 12287-5] Goal Plan of Care Note [code = 52827-7] Goal Plan of Care Note [code = 94329-1] Goal Plan of Care Note [code = 92372-0] Goal Plan of Care Note [code = 20953-8] Goal Plan of Care Note [code = 71242-4] Goal Plan of Care Note [code = 91587-4] Goal Plan of Care Note [code = 29551-7] Goal Plan of Care Note [code = 03489-4] Goal Plan of Care Note [code = 85095-1] Goal Plan of Care Note [code = 89061-9] Goal Plan of Care Note [code = 76183-7] Goal Plan of Care Note [code = 75390-4] Goal Plan of Care Note [code = 28562-2] Goal Plan of Care Note [code = 85572-3] Goal Plan of Care Note [code = 80742-3] Goal Plan of Care Note [code = 16984-2] Goal Plan of Care Note [code = 16120-0] Goal Plan of Care Note [code = 71765-9] Goal Plan of Care Note [code = 33908-6] Goal Plan of Care Note [code = 81879-7] Goal Plan of Care Note [code = 02690-4] Goal Plan of Care Note [code = 27369-0] Goal Plan of Care Note [code = 40158-8] Goal Plan of Care Note [code = 75360-9] Goal Plan of Care Note [code = 08889-2] Goal Plan of Care Note [code = 99716-7] Goal Plan of Care Note [code = 33085-7] Goal Plan of Care Note [code = 68378-2] Goal Plan of Care Note [code = 26575-1] Goal Plan of Care Note [code = 63276-3] Goal Plan of Care Note [code = 33791-0] Goal Plan of Care Note [code = 35636-2] Goal Plan of Care Note [code = 68774-7] Goal Plan of Care Note [code = 43690-4] Goal Plan of Care Note [code = 02447-9] Goal Plan of Care Note [code = 43084-8] Goal Plan of Care Note [code = 02810-5] Goal Plan of Care Note [code = 52013-6] Goal Plan of Care Note [code = 91027-0] Goal Plan of Care Note [code = 44036-1] Goal Plan of Care Note [code = 08769-3] Goal Plan of Care Note [code = 74008-8] Goal Plan of Care Note [code = 27050-4] Goal Plan of Care Note [code = 24249-8] Goal Plan of Care Note [code = 36342-8] Goal Plan of Care Note [code = 57245-6] Goal Plan of Care Note [code = 80592-9] Goal Plan of Care Note [code = 14869-0] Goal Plan of Care Note [code = 47994-9] Goal Plan of Care Note [code = 16170-8] Goal Plan of Care Note [code = 60581-5] Goal Plan of Care Note [code = 46545-6] Goal Plan of Care Note [code = 24900-5] Goal Plan of Care Note [code = 02098-1] Goal Plan of Care Note [code = 35382-4] Goal Plan of Care Note [code = 33573-5] Goal Plan of Care Note [code = 06879-7] Goal Plan of Care Note [code = 59699-1] Goal Plan of Care Note [code = 74263-8] Goal Plan of Care Note [code = 05300-9] Goal Plan of Care Note [code = 57139-5] Goal Plan of Care Note [code = 45494-3] Goal Plan of Care Note [code = 84951-3] Goal Plan of Care Note [code = 46105-8] Goal Plan of Care Note [code = 86250-5] Goal Plan of Care Note [code = 59043-1] Goal Plan of Care Note [code = 27264-9] Goal Plan of Care Note [code = 32612-5] Goal Plan of Care Note [code = 47179-6] Goal Plan of Care Note [code = 27330-4] Goal Plan of Care Note [code = 33735-4] Goal Plan of Care Note [code = 90837-2] Goal Plan of Care Note [code = 27585-0] Goal Plan of Care Note [code = 16219-2] Goal Plan of Care Note [code = 80201-9] Goal Plan of Care Note [code = 54616-5] Goal Plan of Care Note [code = 17880-8] Goal Plan of Care Note [code = 54195-1] Goal Plan of Care Note [code = 19222-0] Goal Plan of Care Note [code = 52211-5] Goal Plan of Care Note [code = 88867-6] Goal Plan of Care Note [code = 01020-7] Goal Plan of Care Note [code = 54786-8] Goal Plan of Care Note [code = 37090-6] Goal Plan of Care Note [code = 85104-5] Goal Plan of Care Note [code = 34102-9] Goal Plan of Care Note [code = 31502-7] Goal Plan of Care Note [code = 56260-2] Goal Plan of Care Note [code = 69888-4] Goal Plan of Care Note [code = 43828-2] Goal Plan of Care Note [code = 98711-6] Goal Plan of Care Note [code = 36628-6] Goal Plan of Care Note [code = 98304-3] Goal Plan of Care Note [code = 55860-5] Goal Plan of Care Note [code = 46758-2] Goal Plan of Care Note [code = 48837-5] Goal Plan of Care Note [code = 80003-2] Goal Plan of Care Note [code = 37772-3] Goal Plan of Care Note [code = 37323-9] Goal Plan of Care Note [code = 02832-2] Goal Plan of Care Note [code = 01214-1] Goal Plan of Care Note [code = 24471-4] Goal Plan of Care Note [code = 88454-8] Goal Plan of Care Note [code = 89417-2] Goal Plan of Care Note [code = 88021-1] Goal Plan of Care Note [code = 10433-4] Goal Plan of Care Note [code = 04677-4] Goal Plan of Care Note [code = 96465-3] Goal Plan of Care Note [code = 62682-6] Goal Plan of Care Note [code = 64466-6] Goal Plan of Care Note [code = 58593-3] Goal Plan of Care Note [code = 79105-5] Goal Plan of Care Note [code = 66921-9] Goal Plan of Care Note [code = 40362-8] Goal Plan of Care Note [code = 18635-5] Goal Plan of Care Note [code = 08775-8] Goal Plan of Care Note [code = 42709-0] Goal Plan of Care Note [code = 09588-7] Goal Plan of Care Note [code = 76180-1] Goal Plan of Care Note [code = 39289-1] Goal Plan of Care Note [code = 80588-9] Goal Plan of Care Note [code = 48337-2] Goal Plan of Care Note [code = 47795-9] Goal Plan of Care Note [code = 85252-2] Goal Plan of Care Note [code = 58364-6] Goal Plan of Care Note [code = 23965-7] Goal Plan of Care Note [code = 04907-9] Goal Plan of Care Note [code = 98789-4] Goal Plan of Care Note [code = 47733-8] Goal Plan of Care Note [code = 11981-8] Goal Plan of Care Note [code = 61544-5] Goal Plan of Care Note [code = 64108-3] Goal Plan of Care Note [code = 43978-9] Goal Plan of Care Note [code = 99609-5] Goal Plan of Care Note [code = 92943-3] Goal Plan of Care Note [code = 00564-9] Goal Plan of Care Note [code = 30752-8] Goal Plan of Care Note [code = 02176-0] Goal Plan of Care Note [code = 51488-0] Goal Plan of Care Note [code = 97188-3] Goal Plan of Care Note [code = 42686-0] Goal Plan of Care Note [code = 61642-5] Goal Plan of Care Note [code = 82784-9] Goal Plan of Care Note [code = 37643-0] Goal Plan of Care Note [code = 99940-7] Goal Plan of Care Note [code = 72720-8] Goal Plan of Care Note [code = 24078-6] Goal Plan of Care Note [code = 84058-7] Goal Plan of Care Note [code = 48071-9] Goal Plan of Care Note [code = 12526-9] Goal Plan of Care Note [code = 69990-2] Goal Plan of Care Note [code = 28453-9] Goal Plan of Care Note [code = 29277-3] Goal Plan of Care Note [code = 91453-7] Goal Plan of Care Note [code = 60749-4] Goal Plan of Care Note [code = 27431-4] Goal Plan of Care Note [code = 35679-9] Goal Plan of Care Note [code = 70145-6] Goal Plan of Care Note [code = 61013-9] Goal Plan of Care Note [code = 38865-7] Goal Plan of Care Note [code = 90317-8] Goal Plan of Care Note [code = 20481-8] Goal Plan of Care Note [code = 64056-3] Goal Plan of Care Note [code = 75379-9] Goal Plan of Care Note [code = 27640-3] Goal Plan of Care Note [code = 84326-4] Goal Plan of Care Note [code = 01972-0] Goal Plan of Care Note [code = 83123-3] Goal Plan of Care Note [code = 35379-0] Goal Plan of Care Note [code = 79418-3] Goal Plan of Care Note [code = 72765-4] Goal Plan of Care Note [code = 20261-9] Goal Plan of Care Note [code = 50742-0] Goal Plan of Care Note [code = 43561-0] Goal Plan of Care Note [code = 56894-0] Goal Plan of Care Note [code = 09328-3] Goal Plan of Care Note [code = 45289-3] Goal Plan of Care Note [code = 23157-9] Goal Plan of Care Note [code = 30659-9] Goal Plan of Care Note [code = 40804-0] Goal Plan of Care Note [code = 28915-3] Goal Plan of Care Note [code = 26078-4] Goal Plan of Care Note [code = 29001-0] Goal Plan of Care Note [code = 92930-6] Goal Plan of Care Note [code = 66860-5] Goal Plan of Care Note [code = 68190-6] Goal Plan of Care Note [code = 95439-0] Goal Plan of Care Note [code = 88459-9] Goal Plan of Care Note [code = 83373-7] Goal Plan of Care Note [code = 38231-3] Goal Plan of Care Note [code = 93567-8] Goal Plan of Care Note [code = 78261-0] Goal Plan of Care Note [code = 80582-1] Goal Plan of Care Note [code = 80874-3] Goal Plan of Care Note [code = 91643-2] Goal Plan of Care Note [code = 61389-4] Goal Plan of Care Note [code = 48114-7] Goal Plan of Care Note [code = 19901-3] Goal Plan of Care Note [code = 16672-1] Goal Plan of Care Note [code = 38717-9] Goal Plan of Care Note [code = 90515-2] Goal Plan of Care Note [code = 78411-0] Goal Plan of Care Note [code = 67495-4] Goal Plan of Care Note [code = 81224-6] Goal Plan of Care Note [code = 70022-8] Goal Plan of Care Note [code = 93322-4] Goal Plan of Care Note [code = 91129-2] Goal Plan of Care Note [code = 81251-6] Goal Plan of Care Note [code = 39780-0] Goal Plan of Care Note [code = 60557-3] Encounters Start End Encounter Admission Attending Care Care Encounter Source Date/Time Date/Time Type Type Clinicians Facility Department ID 2021-07-17 Outpatient STLMLC STLMLC [id number] Common 11:09:09 [id number] [facility] 2022-06-28 2022-06-28 Outpatient LATOYA KLEIN [id number] Vincenzo 10:25:26 10:25:26 0107 F Gerardo 2022-06-28 2022-06-28 Outpatient [id number] c7e42e-3 00:00:00 00:00:00 Visit 03bf-4749 3bf-4749-b -e62f-90c 74e-87ac0c f5s7799g4 8799c7 2022-05-14 2022-05-14 Outpatient SFA LATOYA [id number] Vincenzo 16:21:44 16:21:44 1123 F Gerardo 2022-05-14 2022-05-14 Outpatient [id number]- [id number] gw2ks6-d 00:00:00 00:00:00 Visit e06a-7670 50f-4791-b -bdf0-428 df0-428aed ydi8g510f 3j015w 2022-02-17 2022-02-17 Outpatient [id number]- [id number] 8f 00x766-6 00:00:00 00:00:00 Visit 295f-4f28 95f-4f28-a -l733-314 684-852950 245994ezg 628ede 2022-02-08 2022-02-08 Outpatient 27q80b52- [id number] r80r70-t 00:00:00 00:00:00 Visit z9b3-1lh1 9i4-8vt2-7 -845f-c0a 45f-c0a5b0 2w33359l3 5231e1 2022-02-06 2022-02-06 Orders Doctor ISAIAS [id number] [facility] 00:00:00 00:00:00 Only Unassigned, HODA 350.1.13.10 ity of [place] [facility] 4.2.7.2.686 Derek as [phone] [place] [address] [place] 2022-01-28 2022-01-28 Outpatient [id number]- [id number] 8a 233cad-b 00:00:00 00:00:00 Visit baa2-4154 aa2-4154-9 -4hg1-97b df4-64r059 923nwg4e4 afe2e5 2021-12-20 2021-12-20 Outpatient [id number]- [id number] e0 851093-v 00:00:00 00:00:00 Visit b5iy-4gvh 9fe-4bbf-a -s892-028 729-1757be 6tc4s1962 4t7776 2020-06-07 2020-06-08 Outpatient nullFlavo MNA [id number] Memoria 15:15:00 05:59:59 r Neurology 09 l Seymour Vladimir 2020-06-07 2020-06-08 Outpatient nullFlavo MNA [id number] Memoria 15:15:00 05:59:59 r Neurology 09 l Georgia Gilbert 2020-06-07 2020-06-07 Outpatient SHIVMA [place] [facility] [id number] 09:15:00 23:59:59 Shoaib 09 Graham 2020-06-07 2020-06-07 Outpatient MHIE MHIE [id number] Memoria 09:15:00 09:15:00 09 l Vladimir 2020-05-22 2020-05-22 Ambulatory nullFlavo MNA [id number] Memoria 20:45:00 20:45:00 Pre-Reg r Neurology 08 l Seymour Vladimir 2020-05-22 2020-05-22 Ambulatory nullFlavo MNA [id number] Memoria 20:45:00 20:45:00 Pre-Reg r Neurology 08 l Seymour [place] 2020-05-22 2020-05-22 Outpatient MHIE MHIE [id number] Memoria 14:45:00 14:45:00 08 l Vladimir 2020-05-22 2020-05-22 [facility] [id number] 14:45:00 14:45:00 Shoaib 08 Graham 2020-04-05 2020-04-06 Outpatient nullFlavo MNA [id number] Memoria 19:00:00 04:59:59 r Neurology 07 l Georgia Gilbert 2020-04-05 2020-04-06 Outpatient nullFlavo MNA [id number] Memoria 19:00:00 04:59:59 r Neurology 07 l Georgia Gilebrt 2020-04-05 2020-04-05 [facility] [id number] 14:00:00 23:59:59 Shoaib 07 Graham 2020-04-05 2020-04-05 Outpatient MHIE MHIE [id number] Memoria 14:00:00 14:00:00 07 l [place] 2020-02-23 2020-02-24 Outpatient nullFlavo MNA [id number] Memoria 20:15:00 04:59:59 r Neurology 06 l Georgia Gilbert 2020-02-23 2020-02-24 Outpatient nullFlavo MNA [id number] Memoria 20:15:00 04:59:59 r Neurology 06 l Seymourseveriano Gilbert 2020-02-23 2020-02-23 [facility] [id number] 15:15:00 23:59:59 Shoaib 06 Graham 2020-02-23 2020-02-23 Outpatient MHIE MHIE [id number] Memoria 15:15:00 15:15:00 06 giovanni Gilbert 2020-01-25 2020-01-25 (TEL) STLMLC STLMLC [id number] mmon 00:00:00 00:00:00 [facility] 2020-01-05 2020-01-06 Outpatient nullFlavo MNA [id number] Memoria 20:15:00 04:59:59 r Neurology 05 l Georgia Downeyann 2020-01-05 2020-01-06 Outpatient nullFlavo MNA [id number] Memoria 20:15:00 04:59:59 r Neurology 05 l Georgia Gilbert 2020-01-05 2020-01-05 Outpatient BUSHRA [facility] [id number] 15:15:00 23:59:59 Shoaib 05 Graham 2020-01-05 2020-01-05 Outpatient MHIE MHIE [id number] Memoria 15:15:00 15:15:00 05 giovanni [place] 2019-12-29 2019-12-29 Ambulatory nullFlavo MNA [id number] Memoria 20:15:00 20:15:00 Pre-Reg r Neurology 02 l Georgia [place] 2019-12-29 2019-12-29 Ambulatory nullFlavo MNA [id number] Memoria 20:15:00 20:15:00 Pre-Reg r Neurology 04 l Georgia [place] 2019-12-29 2019-12-29 Ambulatory nullFlavo MNA [id number] Memoria 20:15:00 20:15:00 Pre-Reg r Neurology 04 l Georgia [place] 2019-12-29 2019-12-29 Ambulatory nullFlavo MNA [id number] Memoria 20:15:00 20:15:00 Pre-Reg r Neurology 02 l Georgia [place] 2019-12-29 2019-12-29 Outpatient MHIE IE [id number] Memoria 15:15:00 15:15:00 02 l [place] 2019-12-29 2019-12-29 Outpatient MHIE MHIE [id number] Memoria 15:15:00 15:15:00 04 giovanni [place] 2019-12-29 2019-12-29 Outpatient [facility] [id number] 15:15:00 15:15:00 Shoaib 02 [place] 2019-12-29 2019-12-29 Outpatient [facility] [id number] 15:15:00 15:15:00 Shoaib 04 Graham 2019-11-23 2019-11-24 Outpatient nullFlavo MNA [id number] Memoria 18:00:00 04:59:59 r Neurology 03 l Georgia Gilbert 2019-11-23 2019-11-24 Outpatient nullFlavo MNA [id number] Memoria 18:00:00 04:59:59 r Neurology 03 l Georgia Gilbert 2019-11-23 2019-11-23 [facility] [id number] 13:00:00 23:59:59 Shoaib 03 Graham 2019-11-23 2019-11-23 Outpatient MHIE MHIE [id number] Memoria 13:00:00 13:00:00 03 giovanni DowneyVladimir 2019-11-17 2019-11-18 Outpatient nullFlavo MNA [id number] Memoria 20:00:00 04:59:59 r Neurology 01 l Georgia Downeyann 2019-11-17 2019-11-18 Outpatient nullFlavo MNA [id number] Memoria 20:00:00 04:59:59 r Neurology 01 l Seymour [place] 2019-11-17 2019-11-17 [facility] [id number] 15:00:00 23:59:59 Shoaib 01 Graham 2019-11-17 2019-11-17 Outpatient MHIE MHIE [id number] Memoria 15:00:00 15:00:00 01 l Vladimir 2019-10-06 2019-10-06 Ambulatory nullFlavo MNA [id number] Memoria 18:30:00 18:30:00 Pre-Reg r Neurology 00 l Seymour [place] 2019-10-06 2019-10-06 Ambulatory nullFlavo MNA [id number] [id number] Memoria 18:30:00 18:30:00 Pre-Reg r Neurology 00 l Georgia Downeyann 2019-10-06 2019-10-06 Outpatient Ashu, [facility] [id number] 13:30:00 13:30:00 Shoaib 00 Graham 2019-08-11 2019-08-11 Out[facility] [id number] Common 14:00:00 14:00:00 [facility] 2018-07-20 2018-07-20 Day [facility]Fl[facility] [id number] Memoria 21:00:00 21:00:00 Surgery r Vladimir 00 l [facility] 2018-07-20 2018-07-20 [facility] [id number] Memoria 21:00:00 21:00:00 Surgery r Vladimir 00 l [facility] 2018-07-20 2018-07-20 Outpatient Remi [facility] [id number] 15:00:00 [facility] 00 Results Test Description Test Time Test [...] FOR MOREINFORMATION , SEE CLIENT ANNOUNCEMENT AT [email or web address] RISK RATIO LDL/HDL (test code = 0.81 RATIO <3.22 UNLESS OTHERWISE INDICATED, ALL 2238) TESTING PERFORM ED ATCLINICAL PATHOLOGY [facility], [facility]. [address] [place] [address] LABORATORY DIRE CTOR: ALLEY COBURN M.D. CLIA NUMBER [id number] [facility] [place]. [id number] HEMOGLOBIN [id number] 03:34:28 Test Item Value Reference Range Interpretation Comments HEMOGLOBIN A1c (test 10.4 % 4.2-5.6 H AMERIC AN DIABETES code = 47719) ASSOCIATION IDELINES FOR HGB A1C: PREDIABETES/INC REASED [...] ATE TESTING OR LABORATORY C ONSULTATION. CULTURE, [id number] 09:28:15SPECIMEN NUMBER: [id number] CULTURE, URINE SPECIMEN NUMBER: [id number] SPECIMEN COMMENT: URINE SOURCE:URINE REPORT STATUS: FINAL FINAL REPORT: 02/14/2022 <10,000 CFU/ML UROGENITAL HECTOR PRESENT NO COM MON PATHOGENS UNLESS OTHERWISE INDICATED, ALL TESTING PERFORMED [facility] [employer] [address] [place] [address] CARPENTER PROTOTYPE: ALLEY COBURN M.D. CLIA NUMBER [id number]. [id number] CULTURE, [id number] 00:00:00 Test Item Value Reference Range Interpretation Comments CULTURE, URINE (test SPECIMEN NUMBER: code = 95567) [id number] CULTURE, [id number] 00:00:00 Test Item Value Reference Range Interpretation Comments CULTURE, URINE (test SPECIMEN NUMBER: code = 10327) [id number] CULTURE, [id number] 00:00:00 Test Item Value Reference Range Interpretation Comments CULTURE, URINE (test SPECIMEN NUMBER: code = 54158) [id number] CULTURE, [id number] 00:00:00 Test Item Value Reference Range Interpretation Comments CULTURE, URINE (test SPECIMEN NUMBER: code = 84159) [id number] CULTURE, [id number] 00:00:00 Test Item Value Reference Range Interpretation Comments CULTURE, URINE (test SPECIMEN NUMBER: code = 97158) [id number] CULTURE, [id number] 00:00:00 Test Item Value Reference Range Interpretation Comments CULTURE, URINE (test SPECIMEN NUMBER: code = 25162) [id number] CULTURE, [id number] 00:00:00 Test Item Value Reference Range Interpretation Comments CULTURE, URINE (test SPECIMEN NUMBER: code = 85331) [id number] CULTURE, [id number] 00:00:00 Test Item Value Reference Range Interpretation Comments CULTURE, URINE (test SPECIMEN NUMBER: code = 95983) [id number] VITAMIN D, 25 [id number] 05:45:34 Test Item Value Reference Range Interpretation [...] . . . . NG/ML 30-100 HEMOGLOBIN [id number] 05:43:15 Test Item Value Reference Range Interpretation Comments HEMOGLOBIN A1c (test 10.5 % 4.2-5.6 H AMERIC AN DIABETES code = 21968) ASSOCIATION IDELINES FOR HGB A1C: PREDIABETES/INC REASED [...] LABORATORY C ONSULTATION. CBC W/AUTO DIFF WITH [id number] 04:31:24 Test Item Value Reference Range Interpretation [...] message] code = 1065) WBC'S The system [employer] generated this result transmitted ref erence range: [...] 0.00-0.11 UNLESS O THERWISE (test code = 91241) INDICATE D, ALL TESTING PERFORM ED ATCLINICAL PATH OLOGY FORMERLY [facility], [facility]. [address] [place] [address] [place] [address] DIRECTOR: Curtis LEVYIA NUMBER [id number] CAP ACCREDITATION N O. [id number] HIV 1/2 4TH GEN, RFLX [id number] 04:04:35 Test Item Value Reference Range Interpretation Comments HIV 1/2 4TH GEN, RFLX CONF (test NON-REACTIVE NON-REACTIVE code = 3514) COMPREHENSIVE METABOLIC [id number] 03:38:50 Test Item Value Reference Range Interpretation Comments GLUCOSE (test code = 134 MG/DL 70-99 H 2216) BUN (test code = 33 MG/DL 8-23 H 2207) CREATININE (test 5.01 MG/DL 0.60-1.30 H code = 2214) eGFR (2020 CKD-EPI) 9 ML/MIN/1.73 >60 L (test code = 88870) CALC BUN/CREAT (test 7 RATIO 6-28 code = 223) SODIUM (test code = 138 MEQ/L 266-862 9286) POTASSIUM (test code 4.2 MEQ/L 3.5-5.4 = 2227) CHLORIDE (test code 97 MEQ/L 95-107 = 2214) CARBON DIOXIDE (test 25 MEQ/L 19-31 code = 220) CALCIUM (test code = 9.6 MG/DL 8.5-10.5 2208) PROTEIN, TOTAL (test 7.3 G/DL 6.1-8.3 code = 222) ALBUMIN (test code = 4.4 G/DL 3.5-5.2 [...] code = 16 U/L 5-40 2218) LIPID [id number] 03:38:50 Test Item Value Reference Range Interpretation [...] MOREINFORMATION , SEE CLIENT ANNOUNCE MENT AT [email or web address] RISK RATIO LDL/HDL 0.73 RATIO <3.22 (test code = 2238) COMPREHENSIVE METABOLIC [id number] 00:00:00 Test Item Value Reference Range Interpretation Comments GLUCOSE (test code = 2217) 134 MG/DL BUN (test code = 2208) 33 MG/DL CREATININE (test code = 2214) 5.01 MG/DL eGFR (2020 CKD-EPI) (test code 9 ML/MIN/1.73 = 04005) CALC BUN/CREAT (test code = 7 RATIO [...] code = 2219) 16 U/L COMPREHENSIVE METABOLIC [id number] 00:00:00 Test Item Value Reference Range Interpretation Comments GLUCOSE (test code = 2217) 134 MG/DL BUN (test code = 2208) 33 MG/DL CREATININE (test code = 2214) 5.01 MG/DL eGFR (2020 CKD-EPI) (test code 9 ML/MIN/1.73 = 98466) CALC BUN/CREAT (test code = 7 RATIO [...] (test code = 2219) 16 U/L LIPID [id number] 00:00:00 Test Item Value Reference Range Interpretation Comments CHOLESTEROL (test code = 2210) 142 MG/DL TRIGLYCERIDES (test code = 2232) 59 MG/DL HDL CHOLESTEROL (test code = 2220) 74 MG/DL CALC LDL CHOL (test code = 2237) 54 MG/DL RISK RATIO LDL/HDL (test code = 0.73 RATIO 2238) LIPID [id number] 00:00:00 Test Item Value Reference Range Interpretation Comments CHOLESTEROL (test code = 2210) 142 MG/DL TRIGLYCERIDES (test code = 2232) 59 MG/DL HDL CHOLESTEROL (test code = 2220) 74 MG/DL CALC LDL CHOL (test code = 2237) 54 MG/DL RISK RATIO LDL/HDL (test code = 0.73 RATIO 2238) HIV AB/AG COMBO RFLX [id number] 00:00:00 Test Item Value Reference Range Interpretation Comments HIV 1/2 4TH GEN, RFLX CONF (test NON-REACTIVE code = 3514) HIV AB/AG COMBO RFLX [id number] 00:00:00 Test Item Value Reference Range Interpretation Comments HIV 1/2 4TH GEN, RFLX CONF (test NON-REACTIVE code = 3514) CBC W/AUTO [id number] 00:00:00 Test Item Value Reference Range Interpretation [...] NUCLEATED RBCS (test code = 0.00 K/UL 41633) CBC W/AUTO [id number] 00:00:00 Test Item Value Reference Range Interpretation [...] NUCLEATED RBCS (test code = 0.00 K/UL 84687) CBC W/AUTO [id number] 00:00:00 Test Item Value Reference Range Interpretation [...] NUCLEATED RBCS (test code = 0.00 K/UL 65434) VITAMIN D, 25 [id number] 00:00:00 Test Item Value Reference Range Interpretation Comments VITAMIN D, 25 [place] (test code = 4958) 34 NG/ML VITAMIN D, 25 [id number] 00:00:00 Test Item Value Reference Range Interpretation Comments VITAMIN D, 25 [place] (test code = 4958) 34 NG/ML HEMOGLOBIN [id number] 00:00:00 Test Item Value Reference Range Interpretation Comments HEMOGLOBIN A1c (test code = 76149) 10.5 % HEMOGLOBIN [id number] 00:00:00 Test Item Value Reference Range Interpretation Comments HEMOGLOBIN A1c (test code = 16899) 10.5 % HEMOGLOBIN [id number] 00:00:00 Test Item Value Reference Range Interpretation Comments HEMOGLOBIN A1c (test code = 76517) 10.5 % COMPREHENSIVE METABOLIC [id number] 00:00:00 Test Item Value Reference Range Interpretation Comments GLUCOSE (test code = 2217) 134 MG/DL BUN (test code = 2208) 33 MG/DL CREATININE (test code = 2214) 5.01 MG/DL eGFR (2020 CKD-EPI) (test code 9 ML/MIN/1.73 = 23741) CALC BUN/CREAT (test code = 7 RATIO [...] code = 2219) 16 U/L COMPREHENSIVE METABOLIC [id number] 00:00:00 Test Item Value Reference Range Interpretation Comments GLUCOSE (test code = 2217) 134 MG/DL BUN (test code = 2208) 33 MG/DL CREATININE (test code = 2214) 5.01 MG/DL eGFR (2020 CKD-EPI) (test code 9 ML/MIN/1.73 = 04804) CALC BUN/CREAT (test code = 7 RATIO [...] (test code = 2219) 16 U/L LIPID [id number] 00:00:00 Test Item Value Reference Range Interpretation Comments CHOLESTEROL (test code = 2210) 142 MG/DL TRIGLYCERIDES (test code = 2232) 59 MG/DL HDL CHOLESTEROL (test code = 2220) 74 MG/DL CALC LDL CHOL (test code = 2237) 54 MG/DL RISK RATIO LDL/HDL (test code = 0.73 RATIO 2238) LIPID [id number] 00:00:00 Test Item Value Reference Range Interpretation Comments CHOLESTEROL (test code = 2210) 142 MG/DL TRIGLYCERIDES (test code = 2232) 59 MG/DL HDL CHOLESTEROL (test code = 2220) 74 MG/DL CALC LDL CHOL (test code = 2237) 54 MG/DL RISK RATIO LDL/HDL (test code = 0.73 RATIO 2238) HIV AB/AG COMBO RFLX [id number] 00:00:00 Test Item Value Reference Range Interpretation Comments HIV 1/2 4TH GEN, RFLX CONF (test NON-REACTIVE code = 3514) HIV AB/AG COMBO RFLX [id number] 00:00:00 Test Item Value Reference Range Interpretation Comments HIV 1/2 4TH GEN, RFLX CONF (test NON-REACTIVE code = 3514) CBC W/AUTO [id number] 00:00:00 Test Item Value Reference Range Interpretation [...] NUCLEATED RBCS (test code = 0.00 K/UL 71691) CBC W/AUTO [id number] 00:00:00 Test Item Value Reference Range Interpretation [...] NUCLEATED RBCS (test code = 0.00 K/UL 18895) CBC W/AUTO [id number] 00:00:00 Test Item Value Reference Range Interpretation [...] NUCLEATED RBCS (test code = 0.00 K/UL 33751) VITAMIN D, 25 [id number] 00:00:00 Test Item Value Reference Range Interpretation Comments VITAMIN D, 25 [place] (test code = 4958) 34 NG/ML VITAMIN D, 25 [id number] 00:00:00 Test Item Value Reference Range Interpretation Comments VITAMIN D, 25 [place] (test code = 4958) 34 NG/ML HEMOGLOBIN [id number] 00:00:00 Test Item Value Reference Range Interpretation Comments HEMOGLOBIN A1c (test code = 81927) 10.5 % HEMOGLOBIN [id number] 00:00:00 Test Item Value Reference Range Interpretation Comments HEMOGLOBIN A1c (test code = 48847) 10.5 % HEMOGLOBIN [id number] 00:00:00 Test Item Value Reference Range Interpretation Comments HEMOGLOBIN A1c (test code = 95847) 10.5 % COMPREHENSIVE METABOLIC [id number] 00:00:00 Test Item Value Reference Range Interpretation Comments GLUCOSE (test code = 2217) 134 MG/DL BUN (test code = 2208) 33 MG/DL CREATININE (test code = 2214) 5.01 MG/DL eGFR (2020 CKD-EPI) (test code 9 ML/MIN/1.73 = 25378) CALC BUN/CREAT (test code = 7 RATIO [...] code = 2219) 16 U/L COMPREHENSIVE METABOLIC [id number] 00:00:00 Test Item Value Reference Range Interpretation Comments GLUCOSE (test code = 2217) 134 MG/DL BUN (test code = 2208) 33 MG/DL CREATININE (test code = 2214) 5.01 MG/DL eGFR (2020 CKD-EPI) (test code 9 ML/MIN/1.73 = 76552) CALC BUN/CREAT (test code = 7 RATIO [...] (test code = 2219) 16 U/L LIPID [id number] 00:00:00 Test Item Value Reference Range Interpretation Comments CHOLESTEROL (test code = 2210) 142 MG/DL TRIGLYCERIDES (test code = 2232) 59 MG/DL HDL CHOLESTEROL (test code = 2220) 74 MG/DL CALC LDL CHOL (test code = 2237) 54 MG/DL RISK RATIO LDL/HDL (test code = 0.73 RATIO 2238) LIPID [id number] 00:00:00 Test Item Value Reference Range Interpretation Comments CHOLESTEROL (test code = 2210) 142 MG/DL TRIGLYCERIDES (test code = 2232) 59 MG/DL HDL CHOLESTEROL (test code = 2220) 74 MG/DL CALC LDL CHOL (test code = 2237) 54 MG/DL RISK RATIO LDL/HDL (test code = 0.73 RATIO 2238) HIV AB/AG COMBO RFLX [id number] 00:00:00 Test Item Value Reference Range Interpretation Comments HIV 1/2 4TH GEN, RFLX CONF (test NON-REACTIVE code = 3514) HIV AB/AG COMBO RFLX [id number] 00:00:00 Test Item Value Reference Range Interpretation Comments HIV 1/2 4TH GEN, RFLX CONF (test NON-REACTIVE code = 3514) CBC W/AUTO [id number] 00:00:00 Test Item Value Reference Range Interpretation [...] NUCLEATED RBCS (test code = 0.00 K/UL 22984) CBC W/AUTO [id number] 00:00:00 Test Item Value Reference Range Interpretation [...] NUCLEATED RBCS (test code = 0.00 K/UL 19218) CBC W/AUTO [id number] 00:00:00 Test Item Value Reference Range Interpretation [...] NUCLEATED RBCS (test code = 0.00 K/UL 66158) VITAMIN D, 25 [id number] 00:00:00 Test Item Value Reference Range Interpretation Comments VITAMIN D, 25 [place] (test code = 4958) 34 NG/ML VITAMIN D, 25 [id number] 00:00:00 Test Item Value Reference Range Interpretation Comments VITAMIN D, 25 OH (test code = 4958) 34 NG/ML HEMOGLOBIN [id number] 00:00:00 Test Item Value Reference Range Interpretation Comments HEMOGLOBIN A1c (test code = 38121) 10.5 % HEMOGLOBIN [id number] 00:00:00 Test Item Value Reference Range Interpretation Comments HEMOGLOBIN A1c (test code = 50942) 10.5 % HEMOGLOBIN [id number] 00:00:00 Test Item Value Reference Range Interpretation Comments HEMOGLOBIN A1c (test code = 84922) 10.5 % COMPREHENSIVE METABOLIC [id number] 00:00:00 Test Item Value Reference Range Interpretation Comments GLUCOSE (test code = 2217) 134 MG/DL BUN (test code = 2208) 33 MG/DL CREATININE (test code = 2214) 5.01 MG/DL eGFR (2020 CKD-EPI) (test code 9 ML/MIN/1.73 = 59319) CALC BUN/CREAT (test code = 7 RATIO [...] code = 2219) 16 U/L COMPREHENSIVE METABOLIC [id number] 00:00:00 Test Item Value Reference Range Interpretation Comments GLUCOSE (test code = 2217) 134 MG/DL BUN (test code = 2208) 33 MG/DL CREATININE (test code = 2214) 5.01 MG/DL eGFR (2020 CKD-EPI) (test code 9 ML/MIN/1.73 = 36939) CALC BUN/CREAT (test code = 7 RATIO 2235) SODIUM (test code = 2231) 138 MEQ/L POTASSIUM (test code = 2228) 4.2 MEQ/L CHLORIDE (test code = 2215) 97 MEQ/L CARBON DIOXIDE (test code = 25 MEQ/L 2205) CALCIUM (test code = 2209) 9.6 MG/DL PROTEIN, TOTAL (test code = 7.3 G/DL 2229) ALBUMIN (test code = 2201) 4.4 G/DL CALC GLOBULIN (test code = 2.9 G/DL 2240) CALC A/G RATIO (test code = 1.5 RATIO 2234) BILIRUBIN, TOTAL (test code = 0.5 MG/DL 2206) ALKALINE PHOSPHATASE (test code 158 U/L = 2204) AST (test code = 2218) 22 U/L ALT (test code = 2219) 16 U/L LIPID [id number] 00:00:00 Test Item Value Reference Range Interpretation Comments CHOLESTEROL (test code = 2210) 142 MG/DL TRIGLYCERIDES (test code = 2232) 59 MG/DL HDL CHOLESTEROL (test code = 2220) 74 MG/DL CALC LDL CHOL (test code = 2237) 54 MG/DL RISK RATIO LDL/HDL (test code = 0.73 RATIO 2238) LIPID [id number] 00:00:00 Test Item Value Reference Range Interpretation Comments CHOLESTEROL (test code = 2210) 142 MG/DL TRIGLYCERIDES (test code = 2232) 59 MG/DL HDL CHOLESTEROL (test code = 2220) 74 MG/DL CALC LDL CHOL (test code = 2237) 54 MG/DL RISK RATIO LDL/HDL (test code = 0.73 RATIO 2238) HIV AB/AG COMBO RFLX [id number] 00:00:00 Test Item Value Reference Range Interpretation Comments HIV 1/2 4TH GEN, RFLX CONF (test NON-REACTIVE code = 3514) HIV AB/AG COMBO RFLX [id number] 00:00:00 Test Item Value Reference Range Interpretation Comments HIV 1/2 4TH GEN, RFLX CONF (test NON-REACTIVE code = 3514) CBC W/AUTO [id number] 00:00:00 Test Item Value Reference Range Interpretation [...] NUCLEATED RBCS (test code = 0.00 K/UL 30307) CBC W/AUTO [id number] 00:00:00 Test Item Value Reference Range Interpretation [...] NUCLEATED RBCS (test code = 0.00 K/UL 96813) CBC W/AUTO [id number] 00:00:00 Test Item Value Reference Range Interpretation [...] NUCLEATED RBCS (test code = 0.00 K/UL 85851) VITAMIN D, 25 [id number] 00:00:00 Test Item Value Reference Range Interpretation Comments VITAMIN D, 25 OH (test code = 4958) 34 NG/ML HEMOGLOBIN [id number] 00:00:00 Test Item Value Reference Range Interpretation Comments HEMOGLOBIN A1c (test code = 41308) 10.5 % VITAMIN D, 25 [id number] 00:00:00 Test Item Value Reference Range Interpretation Comments VITAMIN D, 25 OH (test code = 4958) 34 NG/ML VITAMIN D, 25 [id number] 00:00:00 Test Item Value Reference Range Interpretation Comments VITAMIN D, 25 OH (test code = 4958) 34 NG/ML HEMOGLOBIN [id number] 00:00:00 Test Item Value Reference Range Interpretation Comments HEMOGLOBIN A1c (test code = 22936) 10.5 % HEMOGLOBIN [id number] 00:00:00 Test Item Value Reference Range Interpretation Comments HEMOGLOBIN A1c (test code = 23136) 10.5 % HEMOGLOBIN [id number] 00:00:00 Test Item Value Reference Range Interpretation Comments HEMOGLOBIN A1c (test code = 88478) 10.5 % COMPREHENSIVE METABOLIC [id number] 00:00:00 Test Item Value Reference Range Interpretation Comments GLUCOSE (test code = 7) 134 MG/DL BUN (test code = 2208) 33 MG/DL CREATININE (test code = 2214) 5.01 MG/DL eGFR (2020 CKD-EPI) (test code 9 ML/MIN/1.73 = 65736) CALC BUN/CREAT (test code = 7 RATIO [...] code = 2219) 16 U/L COMPREHENSIVE METABOLIC [id number] 00:00:00 Test Item Value Reference Range Interpretation Comments GLUCOSE (test code = 2217) 134 MG/DL BUN (test code = 2208) 33 MG/DL CREATININE (test code = 2214) 5.01 MG/DL eGFR (2020 CKD-EPI) (test code 9 ML/MIN/1.73 = 01388) CALC BUN/CREAT (test code = 7 RATIO [...] (test code = 2219) 16 U/L LIPID [id number] 00:00:00 Test Item Value Reference Range Interpretation Comments CHOLESTEROL (test code = 2210) 142 MG/DL TRIGLYCERIDES (test code = 2232) 59 MG/DL HDL CHOLESTEROL (test code = 2220) 74 MG/DL CALC LDL CHOL (test code = 2237) 54 MG/DL RISK RATIO LDL/HDL (test code = 0.73 RATIO 2238) LIPID [id number] 00:00:00 Test Item Value Reference Range Interpretation Comments CHOLESTEROL (test code = 2210) 142 MG/DL TRIGLYCERIDES (test code = 2232) 59 MG/DL HDL CHOLESTEROL (test code = 2220) 74 MG/DL CALC LDL CHOL (test code = 2237) 54 MG/DL RISK RATIO LDL/HDL (test code = 0.73 RATIO 2238) HIV AB/AG COMBO RFLX [id number] 00:00:00 Test Item Value Reference Range Interpretation Comments HIV 1/2 4TH GEN, RFLX CONF (test NON-REACTIVE code = 3514) HEMOGLOBIN [id number] 00:00:00 Test Item Value Reference Range Interpretation Comments HEMOGLOBIN A1c (test code = 32900) 10.5 % HIV AB/AG COMBO RFLX [id number] 00:00:00 Test Item Value Reference Range Interpretation Comments HIV 1/2 4TH GEN, RFLX CONF (test NON-REACTIVE code = 3514) CBC W/AUTO [id number] 00:00:00 Test Item Value Reference Range Interpretation [...] NUCLEATED RBCS (test code = 0.00 K/UL 16372) CBC W/AUTO [id number] 00:00:00 Test Item Value Reference Range Interpretation [...] NUCLEATED RBCS (test code = 0.00 K/UL 69770) CBC W/AUTO [id number] 00:00:00 Test Item Value Reference Range Interpretation [...] NUCLEATED RBCS (test code = 0.00 K/UL 85469) COMPREHENSIVE METABOLIC [id number] 00:00:00 Test Item Value Reference Range Interpretation Comments GLUCOSE (test code = 2217) 134 MG/DL BUN (test code = 2208) 33 MG/DL CREATININE (test code = 2214) 5.01 MG/DL eGFR (2020 CKD-EPI) (test code 9 ML/MIN/1.73 = 78162) CALC BUN/CREAT (test code = 7 RATIO 2235) SODIUM (test code = 2231) 138 MEQ/L POTASSIUM (test code = 2228) 4.2 MEQ/L CHLORIDE (test code = 2215) 97 MEQ/L CARBON DIOXIDE (test code = 25 MEQ/L 2205) CALCIUM (test code = 220) 9.6 MG/DL PROTEIN, TOTAL (test code = [...] (test code = 2219) 16 U/L LIPID [id number] 00:00:00 Test Item Value Reference Range Interpretation Comments CHOLESTEROL (test code = 2210) 142 MG/DL TRIGLYCERIDES (test code = 2232) 59 MG/DL HDL CHOLESTEROL (test code = 2220) 74 MG/DL CALC LDL CHOL (test code = 2237) 54 MG/DL RISK RATIO LDL/HDL (test code = 0.73 RATIO 8) HIV AB/AG COMBO RFLX [id number] 00:00:00 Test Item Value Reference Range Interpretation Comments HIV 1/2 4TH GEN, RFLX CONF (test NON-REACTIVE code = 3514) CBC W/AUTO [id number] 00:00:00 Test Item Value Reference Range Interpretation [...] NUCLEATED RBCS (test code = 0.00 K/UL 91251) CBC W/AUTO [id number] 00:00:00 Test Item Value Reference Range Interpretation [...] NUCLEATED RBCS (test code = 0.00 K/UL 59950) VITAMIN D, 25 [id number] 00:00:00 Test Item Value Reference Range Interpretation Comments VITAMIN D, 25 OH (test code = 4958) 34 NG/ML VITAMIN D, 25 [id number] 00:00:00 Test Item Value Reference Range Interpretation Comments VITAMIN D, 25 OH (test code = 4958) 34 NG/ML HEMOGLOBIN [id number] 00:00:00 Test Item Value Reference Range Interpretation Comments HEMOGLOBIN A1c (test code = 40532) 10.5 % HEMOGLOBIN [id number] 00:00:00 Test Item Value Reference Range Interpretation Comments HEMOGLOBIN A1c (test code = 31342) 10.5 % HEMOGLOBIN [id number] 00:00:00 Test Item Value Reference Range Interpretation Comments HEMOGLOBIN A1c (test code = 57597) 10.5 % SCR MAMM BILATERAL DAVIS CAD [id number] 13:49:46 Name: Margarita : 1960 Sex: F - SCR MAMM BILATERAL DAVIS CAD DIGITALBILATERAL DIGITAL SCREENING MAMMOGRAM 3D/2D WITH CAD: 11/16/2020LINICAL: Asymptomatic. Digital breasttomosynthesis was performed in addition to routine CC and MLO views. Current mammographic images were evaluated by [employer] (computer-aided detection) software. Comparison is made [...] one year. Fish Alejandro M.D. ss/penrad:11/28/2020 13:49:46 Offensive Coordinator: Becka Reed MM, [facility] Mammographyletter sent: BIRADS 1-2 Normal Mammogram BI-RADS: 2 BenignHEMOGLOBIN [id number] 00:00:00 Test Item Value Reference Range Interpretation Comments HEMOGLOBIN A1c (test code = 08877) 8.6 % HEMOGLOBIN [id number] 00:00:00 Test Item Value Reference Range Interpretation Comments HEMOGLOBIN A1c (test code = 24800) 8.6 % HEMOGLOBIN [id number] 00:00:00 Test Item Value Reference Range Interpretation Comments HEMOGLOBIN A1c (test code = 48008) 8.6 % HEMOGLOBIN [id number] 00:00:00 Test Item Value Reference Range Interpretation Comments HEMOGLOBIN A1c (test code = 71236) 8.6 % HEMOGLOBIN [id number] 00:00:00 Test Item Value Reference Range Interpretation Comments HEMOGLOBIN A1c (test code = 06963) 8.6 % HEMOGLOBIN [id number] 00:00:00 Test Item Value Reference Range Interpretation Comments HEMOGLOBIN A1c (test code = 66649) 8.6 % HEMOGLOBIN [id number] 00:00:00 Test Item Value Reference Range Interpretation Comments HEMOGLOBIN A1c (test code = 91783) 8.6 % HEMOGLOBIN [id number] 00:00:00 Test Item Value Reference Range Interpretation Comments HEMOGLOBIN A1c (test code = 22536) 8.6 % HEMOGLOBIN [id number] 00:00:00 Test Item Value Reference Range Interpretation Comments HEMOGLOBIN A1c (test code = 70743) 8.6 % HEMOGLOBIN [id number] 00:00:00 Test Item Value Reference Range Interpretation Comments HEMOGLOBIN A1c (test code = 25653) 8.6 % HEMOGLOBIN [id number] 00:00:00 Test Item Value Reference Range Interpretation Comments HEMOGLOBIN A1c (test code = 82039) 8.6 % HEMOGLOBIN [id number] 00:00:00 Test Item Value Reference Range Interpretation Comments HEMOGLOBIN A1c (test code = 99508) 8.6 % HEMOGLOBIN [id number] 00:00:00 Test Item Value Reference Range Interpretation Comments HEMOGLOBIN A1c (test code = 25046) 8.6 % HEMOGLOBIN [id number] 00:00:00 Test Item Value Reference Range Interpretation Comments HEMOGLOBIN A1c (test code = 78028) 8.6 % HEMOGLOBIN [id number] 00:00:00 Test Item Value Reference Range Interpretation Comments HEMOGLOBIN A1c (test code = 45430) 8.6 % HEMOGLOBIN [id number] 00:00:00 Test Item Value Reference Range Interpretation Comments HEMOGLOBIN A1c (test code = 95221) 8.6 % HEMOGLOBIN [id number] 00:00:00 Test Item Value Reference Range Interpretation Comments HEMOGLOBIN A1c (test code = 88671) 8.6 % LIPID [id number] 00:00:00 Test Item Value Reference Range Interpretation Comments CHOLESTEROL (test code = 2210) 186 MG/DL TRIGLYCERIDES (test code = 2232) 88 MG/DL HDL CHOLESTEROL (test code = 2220) 80 MG/DL CALC LDL CHOL (test code = 2237) 88 MG/DL RISK RATIO LDL/HDL (test code = 1.10 RATIO 2238) COMPREHENSIVE METABOLIC [id number] 00:00:00 Test Item Value Reference Range Interpretation Comments GLUCOSE (test code = 2217) 300 MG/DL BUN (test code = 2208) 19 MG/DL CREATININE (test code = 2214) 4.15 MG/DL eGFR AMER. (test code 13 ML/MIN/1.73 = 60052) eGFR NON- AMER. (test 11 ML/MIN/1.73 code = 95276) CALC BUN/CREAT (test code = 5 RATIO [...] code = 2219) 13 U/L COMPREHENSIVE METABOLIC [id number] 00:00:00 Test Item Value Reference Range Interpretation Comments GLUCOSE (test code = 2217) 300 MG/DL BUN (test code = 2208) 19 MG/DL CREATININE (test code = 2214) 4.15 MG/DL eGFR AMER. (test code 13 ML/MIN/1.73 = 14694) eGFR NON- AMER. (test 11 ML/MIN/1.73 code = 86830) CALC BUN/CREAT (test code = 5 RATIO [...] ALT (test code = 2219) 13 U/L [id number] 00:00:00 Test Item Value Reference Range Interpretation Comments TSH, THIRD GENERATION (test code 0.661 UIU/ML = 2821) [id number] 00:00:00 Test Item Value Reference Range Interpretation Comments TSH, THIRD GENERATION (test code 0.661 UIU/ML = 2821) [id number] 00:00:00 Test Item Value Reference Range Interpretation Comments TSH, THIRD GENERATION (test code 0.661 UIU/ML = 2821) CBC W/AUTO [id number] 00:00:00 Test Item Value Reference Range Interpretation [...] code = 1015) 166 K/UL CBC W/AUTO [id number] 00:00:00 Test Item Value Reference Range Interpretation [...] code = 1015) 166 K/UL CBC W/AUTO [id number] 00:00:00 Test Item Value Reference Range Interpretation [...] (test code = 1015) 166 K/UL HEMOGLOBIN [id number] 00:00:00 Test Item Value Reference Range Interpretation Comments HEMOGLOBIN A1c (test code = 10256) 8.5 % HEMOGLOBIN [id number] 00:00:00 Test Item Value Reference Range Interpretation Comments HEMOGLOBIN A1c (test code = 88658) 8.5 % HEMOGLOBIN [id number] 00:00:00 Test Item Value Reference Range Interpretation Comments HEMOGLOBIN A1c (test code = 58933) 8.5 % LIPID [id number] 00:00:00 Test Item Value Reference Range Interpretation Comments CHOLESTEROL (test code = 2210) 186 MG/DL TRIGLYCERIDES (test code = 2232) 88 MG/DL HDL CHOLESTEROL (test code = 2220) 80 MG/DL CALC LDL CHOL (test code = 2237) 88 MG/DL RISK RATIO LDL/HDL (test code = 1.10 RATIO 2238) LIPID [id number] 00:00:00 Test Item Value Reference Range Interpretation Comments CHOLESTEROL (test code = 2210) 186 MG/DL TRIGLYCERIDES (test code = 2232) 88 MG/DL HDL CHOLESTEROL (test code = 2220) 80 MG/DL CALC LDL CHOL (test code = 2237) 88 MG/DL RISK RATIO LDL/HDL (test code = 1.10 RATIO 2238) COMPREHENSIVE METABOLIC [id number] 00:00:00 Test Item Value Reference Range Interpretation Comments GLUCOSE (test code = 2217) 300 MG/DL BUN (test code = 2208) 19 MG/DL CREATININE (test code = 2214) 4.15 MG/DL eGFR AMER. (test code 13 ML/MIN/1.73 = 27344) eGFR NON- AMER. (test 11 ML/MIN/1.73 code = 52991) CALC BUN/CREAT (test code = 5 RATIO [...] code = 2219) 13 U/L COMPREHENSIVE METABOLIC [id number] 00:00:00 Test Item Value Reference Range Interpretation Comments GLUCOSE (test code = 2217) 300 MG/DL BUN (test code = 2208) 19 MG/DL CREATININE (test code = 2214) 4.15 MG/DL eGFR AMER. (test code 13 ML/MIN/1.73 = 39641) eGFR NON- AMER. (test 11 ML/MIN/1.73 code = 03638) CALC BUN/CREAT (test code = 5 RATIO [...] ALT (test code = 2219) 13 U/L [id number] 00:00:00 Test Item Value Reference Range Interpretation Comments TSH, THIRD GENERATION (test code 0.661 UIU/ML = 2821) [id number] 00:00:00 Test Item Value Reference Range Interpretation Comments TSH, THIRD GENERATION (test code 0.661 UIU/ML = 2821) [id number] 00:00:00 Test Item Value Reference Range Interpretation Comments TSH, THIRD GENERATION (test code 0.661 UIU/ML = 2821) CBC W/AUTO [id number] 00:00:00 Test Item Value Reference Range Interpretation [...] code = 1015) 166 K/UL CBC W/AUTO [id number] 00:00:00 Test Item Value Reference Range Interpretation [...] code = 1015) 166 K/UL CBC W/AUTO [id number] 00:00:00 Test Item Value Reference Range Interpretation [...] (test code = 1015) 166 K/UL HEMOGLOBIN [id number] 00:00:00 Test Item Value Reference Range Interpretation Comments HEMOGLOBIN A1c (test code = 61967) 8.5 % HEMOGLOBIN [id number] 00:00:00 Test Item Value Reference Range Interpretation Comments HEMOGLOBIN A1c (test code = 44540) 8.5 % HEMOGLOBIN [id number] 00:00:00 Test Item Value Reference Range Interpretation Comments HEMOGLOBIN A1c (test code = 99889) 8.5 % LIPID [id number] 00:00:00 Test Item Value Reference Range Interpretation Comments CHOLESTEROL (test code = 2210) 186 MG/DL TRIGLYCERIDES (test code = 2232) 88 MG/DL HDL CHOLESTEROL (test code = 2220) 80 MG/DL CALC LDL CHOL (test code = 2237) 88 MG/DL RISK RATIO LDL/HDL (test code = 1.10 RATIO 2238) LIPID [id number] 00:00:00 Test Item Value Reference Range Interpretation Comments CHOLESTEROL (test code = 2210) 186 MG/DL TRIGLYCERIDES (test code = 2232) 88 MG/DL HDL CHOLESTEROL (test code = 2220) 80 MG/DL CALC LDL CHOL (test code = 2237) 88 MG/DL RISK RATIO LDL/HDL (test code = 1.10 RATIO 2238) COMPREHENSIVE METABOLIC [id number] 00:00:00 Test Item Value Reference Range Interpretation Comments GLUCOSE (test code = 2217) 300 MG/DL BUN (test code = 2208) 19 MG/DL CREATININE (test code = 2214) 4.15 MG/DL eGFR AMER. (test code 13 ML/MIN/1.73 = 53707) eGFR NON- AMER. (test 11 ML/MIN/1.73 code = 46981) CALC BUN/CREAT (test code = 5 RATIO [...] code = 2219) 13 U/L COMPREHENSIVE METABOLIC [id number] 00:00:00 Test Item Value Reference Range Interpretation Comments GLUCOSE (test code = 2217) 300 MG/DL BUN (test code = 2208) 19 MG/DL CREATININE (test code = 2214) 4.15 MG/DL eGFR AMER. (test code 13 ML/MIN/1.73 = 30771) eGFR NON- AMER. (test 11 ML/MIN/1.73 code = 60348) CALC BUN/CREAT (test code = 5 RATIO [...] ALT (test code = 2219) 13 U/L [id number] 00:00:00 Test Item Value Reference Range Interpretation Comments TSH, THIRD GENERATION (test code 0.661 UIU/ML = 2821) [id number] 00:00:00 Test Item Value Reference Range Interpretation Comments TSH, THIRD GENERATION (test code 0.661 UIU/ML = 2821) [id number] 00:00:00 Test Item Value Reference Range Interpretation Comments TSH, THIRD GENERATION (test code 0.661 UIU/ML = 2821) CBC W/AUTO [id number] 00:00:00 Test Item Value Reference Range Interpretation [...] code = 1015) 166 K/UL CBC W/AUTO [id number] 00:00:00 Test Item Value Reference Range Interpretation [...] code = 1015) 166 K/UL CBC W/AUTO [id number] 00:00:00 Test Item Value Reference Range Interpretation [...] (test code = 1015) 166 K/UL HEMOGLOBIN [id number] 00:00:00 Test Item Value Reference Range Interpretation Comments HEMOGLOBIN A1c (test code = 13579) 8.5 % HEMOGLOBIN [id number] 00:00:00 Test Item Value Reference Range Interpretation Comments HEMOGLOBIN A1c (test code = 80571) 8.5 % HEMOGLOBIN [id number] 00:00:00 Test Item Value Reference Range Interpretation Comments HEMOGLOBIN A1c (test code = 48828) 8.5 % LIPID [id number] 00:00:00 Test Item Value Reference Range Interpretation Comments CHOLESTEROL (test code = 2210) 186 MG/DL TRIGLYCERIDES (test code = 2232) 88 MG/DL HDL CHOLESTEROL (test code = 2220) 80 MG/DL CALC LDL CHOL (test code = 2237) 88 MG/DL RISK RATIO LDL/HDL (test code = 1.10 RATIO 2238) LIPID [id number] 00:00:00 Test Item Value Reference Range Interpretation Comments CHOLESTEROL (test code = 2210) 186 MG/DL TRIGLYCERIDES (test code = 2232) 88 MG/DL HDL CHOLESTEROL (test code = 2220) 80 MG/DL CALC LDL CHOL (test code = 2237) 88 MG/DL RISK RATIO LDL/HDL (test code = 1.10 RATIO 2238) COMPREHENSIVE METABOLIC [id number] 00:00:00 Test Item Value Reference Range Interpretation Comments GLUCOSE (test code = 2217) 300 MG/DL BUN (test code = 2208) 19 MG/DL CREATININE (test code = 2214) 4.15 MG/DL eGFR AMER. (test code 13 ML/MIN/1.73 = 56417) eGFR NON- AMER. (test 11 ML/MIN/1.73 code = 70992) CALC BUN/CREAT (test code = 5 RATIO [...] code = 2219) 13 U/L COMPREHENSIVE METABOLIC [id number] 00:00:00 Test Item Value Reference Range Interpretation Comments GLUCOSE (test code = 2217) 300 MG/DL BUN (test code = 2208) 19 MG/DL CREATININE (test code = 2214) 4.15 MG/DL eGFR AMER. (test code 13 ML/MIN/1.73 = 63336) eGFR NON- AMER. (test 11 ML/MIN/1.73 code = 66543) CALC BUN/CREAT (test code = 5 RATIO [...] ALT (test code = 2219) 13 U/L [id number] 00:00:00 Test Item Value Reference Range Interpretation Comments TSH, THIRD GENERATION (test code 0.661 UIU/ML = 2821) [id number] 00:00:00 Test Item Value Reference Range Interpretation Comments TSH, THIRD GENERATION (test code 0.661 UIU/ML = 2821) [id number] 00:00:00 Test Item Value Reference Range Interpretation Comments TSH, THIRD GENERATION (test code 0.661 UIU/ML = 2821) CBC W/AUTO [id number] 00:00:00 Test Item Value Reference Range Interpretation [...] code = 1015) 166 K/UL CBC W/AUTO [id number] 00:00:00 Test Item Value Reference Range Interpretation [...] (test code = 1015) 166 K/UL HEMOGLOBIN [id number] 00:00:00 Test Item Value Reference Range Interpretation Comments HEMOGLOBIN A1c (test code = 19621) 8.5 % CBC W/AUTO [id number] 00:00:00 Test Item Value Reference Range Interpretation [...] code = 1015) 166 K/UL CBC W/AUTO [id number] 00:00:00 Test Item Value Reference Range Interpretation [...] code = 1015) 166 K/UL CBC W/AUTO [id number] 00:00:00 Test Item Value Reference Range Interpretation [...] (test code = 1015) 166 K/UL HEMOGLOBIN [id number] 00:00:00 Test Item Value Reference Range Interpretation Comments HEMOGLOBIN A1c (test code = 14894) 8.5 % HEMOGLOBIN [id number] 00:00:00 Test Item Value Reference Range Interpretation Comments HEMOGLOBIN A1c (test code = 97941) 8.5 % HEMOGLOBIN [id number] 00:00:00 Test Item Value Reference Range Interpretation Comments HEMOGLOBIN A1c (test code = 40236) 8.5 % LIPID [id number] 00:00:00 Test Item Value Reference Range Interpretation Comments CHOLESTEROL (test code = 2210) 186 MG/DL TRIGLYCERIDES (test code = 2232) 88 MG/DL HDL CHOLESTEROL (test code = 2220) 80 MG/DL CALC LDL CHOL (test code = 2237) 88 MG/DL RISK RATIO LDL/HDL (test code = 1.10 RATIO 2238) LIPID [id number] 00:00:00 Test Item Value Reference Range Interpretation Comments CHOLESTEROL (test code = 2210) 186 MG/DL TRIGLYCERIDES (test code = 2232) 88 MG/DL HDL CHOLESTEROL (test code = 2220) 80 MG/DL CALC LDL CHOL (test code = 2237) 88 MG/DL RISK RATIO LDL/HDL (test code = 1.10 RATIO 2238) HEMOGLOBIN [id number] 00:00:00 Test Item Value Reference Range Interpretation Comments HEMOGLOBIN A1c (test code = 86518) 8.5 % COMPREHENSIVE METABOLIC [id number] 00:00:00 Test Item Value Reference Range Interpretation Comments GLUCOSE (test code = 2217) 300 MG/DL BUN (test code = 2208) 19 MG/DL CREATININE (test code = 2214) 4.15 MG/DL eGFR AMER. (test code 13 ML/MIN/1.73 = 26456) eGFR NON- AMER. (test 11 ML/MIN/1.73 code = 64555) CALC BUN/CREAT (test code = 5 RATIO [...] code = 2219) 13 U/L COMPREHENSIVE METABOLIC [id number] 00:00:00 Test Item Value Reference Range Interpretation Comments GLUCOSE (test code = 2217) 300 MG/DL BUN (test code = 2208) 19 MG/DL CREATININE (test code = 2214) 4.15 MG/DL eGFR AMER. (test code 13 ML/MIN/1.73 = 20900) eGFR NON- AMER. (test 11 ML/MIN/1.73 code = 99702) CALC BUN/CREAT (test code = 5 RATIO [...] ALT (test code = 2219) 13 U/L [id number] 00:00:00 Test Item Value Reference Range Interpretation Comments TSH, THIRD GENERATION (test code 0.661 UIU/ML = 2821) [id number] 00:00:00 Test Item Value Reference Range Interpretation Comments TSH, THIRD GENERATION (test code 0.661 UIU/ML = 2821) [id number] 00:00:00 Test Item Value Reference Range Interpretation Comments TSH, THIRD GENERATION (test code 0.661 UIU/ML = 2821) LIPID [id number] 00:00:00 Test Item Value Reference Range Interpretation Comments CHOLESTEROL (test code = 2210) 186 MG/DL TRIGLYCERIDES (test code = 2232) 88 MG/DL HDL CHOLESTEROL (test code = 2220) 80 MG/DL CALC LDL CHOL (test code = 2237) 88 MG/DL RISK RATIO LDL/HDL (test code = 1.10 RATIO 2238) COMPREHENSIVE METABOLIC [id number] 00:00:00 Test Item Value Reference Range Interpretation Comments GLUCOSE (test code = 2217) 300 MG/DL BUN (test code = 2208) 19 MG/DL CREATININE (test code = 2214) 4.15 MG/DL eGFR AMER. (test code 13 ML/MIN/1.73 = 00250) eGFR NON- AMER. (test 11 ML/MIN/1.73 code = 82532) CALC BUN/CREAT (test code = 5 RATIO [...] ALT (test code = 2219) 13 U/L [id number] 00:00:00 Test Item Value Reference Range Interpretation Comments TSH, THIRD GENERATION (test code 0.661 UIU/ML = 2821) [id number] 00:00:00 Test Item Value Reference Range Interpretation Comments TSH, THIRD GENERATION (test code 0.661 UIU/ML = 2821) CBC W/AUTO [id number] 00:00:00 Test Item Value Reference Range Interpretation [...] code = 1015) 166 K/UL CBC W/AUTO [id number] 00:00:00 Test Item Value Reference Range Interpretation [...] code = 1015) 166 K/UL CBC W/AUTO [id number] 00:00:00 Test Item Value Reference Range Interpretation [...] (test code = 1015) 166 K/UL HEMOGLOBIN [id number] 00:00:00 Test Item Value Reference Range Interpretation Comments HEMOGLOBIN A1c (test code = 07137) 8.5 % HEMOGLOBIN [id number] 00:00:00 Test Item Value Reference Range Interpretation Comments HEMOGLOBIN A1c (test code = 16752) 8.5 % HEMOGLOBIN [id number] 00:00:00 Test Item Value Reference Range Interpretation Comments HEMOGLOBIN A1c (test code = 09811) 8.5 % LIPID [id number] 00:00:00 Test Item Value Reference Range Interpretation Comments CHOLESTEROL (test code = 2210) 186 MG/DL TRIGLYCERIDES (test code = 2232) 88 MG/DL HDL CHOLESTEROL (test code = 2220) 80 MG/DL CALC LDL CHOL (test code = 2237) 88 MG/DL RISK RATIO LDL/HDL (test code = 1.10 RATIO 2238) [id number] 00:00:00 Test Item Value Reference Range Interpretation Comments TSH, THIRD GENERATION (test code 0.749 UIU/ML = 2821) [id number] 00:00:00 Test Item Value Reference Range Interpretation Comments TSH, THIRD GENERATION (test code 0.749 UIU/ML = 2821) HEMOGLOBIN [id number] 00:00:00 Test Item Value Reference Range Interpretation Comments HEMOGLOBIN A1c (test code = 95812) 8.2 % HEMOGLOBIN [id number] 00:00:00 Test Item Value Reference Range Interpretation Comments HEMOGLOBIN A1c (test code = 86476) 8.2 % HEMOGLOBIN [id number] 00:00:00 Test Item Value Reference Range Interpretation Comments HEMOGLOBIN A1c (test code = 86263) 8.2 % COMPREHENSIVE METABOLIC [id number] 00:00:00 Test Item Value Reference Range Interpretation Comments GLUCOSE (test code = 2217) 154 MG/DL BUN (test code = 2208) 44 MG/DL CREATININE (test code = 2214) 5.28 MG/DL eGFR AMER. (test code = 9 ML/MIN/1.73 14963) eGFR NON- AMER. (test 8 ML/MIN/1.73 code = 88187) CALC BUN/CREAT (test code = 8 RATIO [...] code = 2219) 16 U/L COMPREHENSIVE METABOLIC [id number] 00:00:00 Test Item Value Reference Range Interpretation Comments GLUCOSE (test code = 2217) 154 MG/DL BUN (test code = 2208) 44 MG/DL CREATININE (test code = 2214) 5.28 MG/DL eGFR AMER. (test code = 9 ML/MIN/1.73 56716) eGFR NON- AMER. (test 8 ML/MIN/1.73 code = 45948) CALC BUN/CREAT (test code = 8 RATIO [...] ALT (test code = 2219) 16 U/L [id number] 00:00:00 Test Item Value Reference Range Interpretation Comments TSH, THIRD GENERATION (test code 0.749 UIU/ML = 2821) [id number] 00:00:00 Test Item Value Reference Range Interpretation Comments TSH, THIRD GENERATION (test code 0.749 UIU/ML = 2821) [id number] 00:00:00 Test Item Value Reference Range Interpretation Comments TSH, THIRD GENERATION (test code 0.749 UIU/ML = 2821) HEMOGLOBIN [id number] 00:00:00 Test Item Value Reference Range Interpretation Comments HEMOGLOBIN A1c (test code = 69974) 8.2 % HEMOGLOBIN [id number] 00:00:00 Test Item Value Reference Range Interpretation Comments HEMOGLOBIN A1c (test code = 09971) 8.2 % HEMOGLOBIN [id number] 00:00:00 Test Item Value Reference Range Interpretation Comments HEMOGLOBIN A1c (test code = 60340) 8.2 % COMPREHENSIVE METABOLIC [id number] 00:00:00 Test Item Value Reference Range Interpretation Comments GLUCOSE (test code = 2217) 154 MG/DL BUN (test code = 2208) 44 MG/DL CREATININE (test code = 2214) 5.28 MG/DL eGFR AMER. (test code = 9 ML/MIN/1.73 07657) eGFR NON- AMER. (test 8 ML/MIN/1.73 code = 47128) CALC BUN/CREAT (test code = 8 RATIO [...] code = 2219) 16 U/L COMPREHENSIVE METABOLIC [id number] 00:00:00 Test Item Value Reference Range Interpretation Comments GLUCOSE (test code = 2217) 154 MG/DL BUN (test code = 2208) 44 MG/DL CREATININE (test code = 2214) 5.28 MG/DL eGFR AMER. (test code = 9 ML/MIN/1.73 06042) eGFR NON- AMER. (test 8 ML/MIN/1.73 code = 62979) CALC BUN/CREAT (test code = 8 RATIO [...] ALT (test code = 2219) 16 U/L [id number] 00:00:00 Test Item Value Reference Range Interpretation Comments TSH, THIRD GENERATION (test code 0.749 UIU/ML = 2821) [id number] 00:00:00 Test Item Value Reference Range Interpretation Comments TSH, THIRD GENERATION (test code 0.749 UIU/ML = 2821) [id number] 00:00:00 Test Item Value Reference Range Interpretation Comments TSH, THIRD GENERATION (test code 0.749 UIU/ML = 2821) HEMOGLOBIN [id number] 00:00:00 Test Item Value Reference Range Interpretation Comments HEMOGLOBIN A1c (test code = 97839) 8.2 % HEMOGLOBIN [id number] 00:00:00 Test Item Value Reference Range Interpretation Comments HEMOGLOBIN A1c (test code = 90587) 8.2 % HEMOGLOBIN [id number] 00:00:00 Test Item Value Reference Range Interpretation Comments HEMOGLOBIN A1c (test code = 30331) 8.2 % COMPREHENSIVE METABOLIC [id number] 00:00:00 Test Item Value Reference Range Interpretation Comments GLUCOSE (test code = 2217) 154 MG/DL BUN (test code = 2208) 44 MG/DL CREATININE (test code = 2214) 5.28 MG/DL eGFR AMER. (test code = 9 ML/MIN/1.73 03760) eGFR NON- AMER. (test 8 ML/MIN/1.73 code = 37298) CALC BUN/CREAT (test code = 8 RATIO [...] code = 2219) 16 U/L COMPREHENSIVE METABOLIC [id number] 00:00:00 Test Item Value Reference Range Interpretation Comments GLUCOSE (test code = 2217) 154 MG/DL BUN (test code = 2208) 44 MG/DL CREATININE (test code = 2214) 5.28 MG/DL eGFR AMER. (test code = 9 ML/MIN/1.73 97307) eGFR NON- AMER. (test 8 ML/MIN/1.73 code = 65546) CALC BUN/CREAT (test code = 8 RATIO [...] ALT (test code = 2219) 16 U/L [id number] 00:00:00 Test Item Value Reference Range Interpretation Comments TSH, THIRD GENERATION (test code 0.749 UIU/ML = 2821) [id number] 00:00:00 Test Item Value Reference Range Interpretation Comments TSH, THIRD GENERATION (test code 0.749 UIU/ML = 2821) [id number] 00:00:00 Test Item Value Reference Range Interpretation Comments TSH, THIRD GENERATION (test code 0.749 UIU/ML = 2821) HEMOGLOBIN [id number] 00:00:00 Test Item Value Reference Range Interpretation Comments HEMOGLOBIN A1c (test code = 05861) 8.2 % HEMOGLOBIN [id number] 00:00:00 Test Item Value Reference Range Interpretation Comments HEMOGLOBIN A1c (test code = 11630) 8.2 % HEMOGLOBIN [id number] 00:00:00 Test Item Value Reference Range Interpretation Comments HEMOGLOBIN A1c (test code = 95769) 8.2 % HEMOGLOBIN [id number] 00:00:00 Test Item Value Reference Range Interpretation Comments HEMOGLOBIN A1c (test code = 77047) 8.2 % HEMOGLOBIN [id number] 00:00:00 Test Item Value Reference Range Interpretation Comments HEMOGLOBIN A1c (test code = 76693) 8.2 % COMPREHENSIVE METABOLIC [id number] 00:00:00 Test Item Value Reference Range Interpretation Comments GLUCOSE (test code = 2217) 154 MG/DL BUN (test code = 2208) 44 MG/DL CREATININE (test code = 2214) 5.28 MG/DL eGFR AMER. (test code = 9 ML/MIN/1.73 59516) eGFR NON- AMER. (test 8 ML/MIN/1.73 code = 25537) CALC BUN/CREAT (test code = 8 RATIO 2234) SODIUM (test code = 2231) 141 MEQ/L [...] code = 2219) 16 U/L COMPREHENSIVE METABOLIC [id number] 00:00:00 Test Item Value Reference Range Interpretation Comments GLUCOSE (test code = 2217) 154 MG/DL BUN (test code = 2208) 44 MG/DL CREATININE (test code = 2214) 5.28 MG/DL eGFR AMER. (test code = 9 ML/MIN/1.73 68085) eGFR NON- AMER. (test 8 ML/MIN/1.73 code = 48585) CALC BUN/CREAT (test code = 8 RATIO [...] ALT (test code = 2219) 16 U/L [id number] 00:00:00 Test Item Value Reference Range Interpretation Comments TSH, THIRD GENERATION (test code 0.749 UIU/ML = 2821) [id number] 00:00:00 Test Item Value Reference Range Interpretation Comments TSH, THIRD GENERATION (test code 0.749 UIU/ML = 2821) [id number] 00:00:00 Test Item Value Reference Range Interpretation Comments TSH, THIRD GENERATION (test code 0.749 UIU/ML = 2821) COMPREHENSIVE METABOLIC [id number] 00:00:00 Test Item Value Reference Range Interpretation Comments GLUCOSE (test code = 2217) 154 MG/DL BUN (test code = 2208) 44 MG/DL CREATININE (test code = 2214) 5.28 MG/DL eGFR AMER. (test code = 9 ML/MIN/1.73 88423) eGFR NON- AMER. (test 8 ML/MIN/1.73 code = 20118) CALC BUN/CREAT (test code = 8 RATIO [...] ALT (test code = 2219) 16 U/L [id number] 00:00:00 Test Item Value Reference Range Interpretation Comments TSH, THIRD GENERATION (test code 0.749 UIU/ML = 2821) [id number] 00:00:00 Test Item Value Reference Range Interpretation Comments TSH, THIRD GENERATION (test code 0.749 UIU/ML = 2821) HEMOGLOBIN [id number] 00:00:00 Test Item Value Reference Range Interpretation Comments HEMOGLOBIN A1c (test code = 01310) 8.2 % HEMOGLOBIN [id number] 00:00:00 Test Item Value Reference Range Interpretation Comments HEMOGLOBIN A1c (test code = 19176) 8.2 % HEMOGLOBIN [id number] 00:00:00 Test Item Value Reference Range Interpretation Comments HEMOGLOBIN A1c (test code = 64585) 8.2 % COMPREHENSIVE METABOLIC [id number] 00:00:00 Test Item Value Reference Range Interpretation Comments GLUCOSE (test code = 2217) 154 MG/DL BUN (test code = 2208) 44 MG/DL CREATININE (test code = 2214) 5.28 MG/DL eGFR AMER. (test code = 9 ML/MIN/1.73 23396) eGFR NON- AMER. (test 8 ML/MIN/1.73 code = 79409) CALC BUN/CREAT (test code = 8 RATIO [...] code = 2219) 16 U/L COMPREHENSIVE METABOLIC [id number] 00:00:00 Test Item Value Reference Range Interpretation Comments GLUCOSE (test code = 2217) 154 MG/DL BUN (test code = 2208) 44 MG/DL CREATININE (test code = 2214) 5.28 MG/DL eGFR AMER. (test code = 9 ML/MIN/1.73 77800) eGFR NON- AMER. (test 8 ML/MIN/1.73 code = 77370) CALC BUN/CREAT (test code = 8 RATIO [...] ALT (test code = 2219) 16 U/L [id number] 00:00:00 Test Item Value Reference Range Interpretation Comments TSH, THIRD GENERATION (test code 0.749 UIU/ML = 2821) COMPREHENSIVE METABOLIC [id number] 00:00:00 Test Item Value Reference Range Interpretation Comments GLUCOSE (test code = 2217) 229 MG/DL BUN (test code = 2208) 30 MG/DL CREATININE (test code = 2214) 4.17 MG/DL eGFR AMER. (test code 13 ML/MIN/1.73 = 21620) eGFR NON- AMER. (test 11 ML/MIN/1.73 code = 10417) CALC BUN/CREAT (test code = 7 RATIO [...] code = 2219) 10 U/L CBC W/AUTO [id number] 00:00:00 Test Item Value Reference Range Interpretation [...] code = 1015) 187 K/UL CBC W/AUTO [id number] 00:00:00 Test Item Value Reference Range Interpretation [...] code = 1015) 187 K/UL CBC W/AUTO [id number] 00:00:00 Test Item Value Reference Range Interpretation [...] (test code = 1015) 187 K/UL HEMOGLOBIN [id number] 00:00:00 Test Item Value Reference Range Interpretation Comments HEMOGLOBIN A1c (test code = 11492) 8.7 % HEMOGLOBIN [id number] 00:00:00 Test Item Value Reference Range Interpretation Comments HEMOGLOBIN A1c (test code = 16215) 8.7 % HEMOGLOBIN [id number] 00:00:00 Test Item Value Reference Range Interpretation Comments HEMOGLOBIN A1c (test code = 23854) 8.7 % COMPREHENSIVE METABOLIC [id number] 00:00:00 Test Item Value Reference Range Interpretation Comments GLUCOSE (test code = 2217) 229 MG/DL BUN (test code = 2208) 30 MG/DL CREATININE (test code = 2214) 4.17 MG/DL eGFR AMER. (test code 13 ML/MIN/1.73 = 78551) eGFR NON- AMER. (test 11 ML/MIN/1.73 code = 66509) CALC BUN/CREAT (test code = 7 RATIO [...] code = 2219) 10 U/L COMPREHENSIVE METABOLIC [id number] 00:00:00 Test Item Value Reference Range Interpretation Comments GLUCOSE (test code = 2217) 229 MG/DL BUN (test code = 2208) 30 MG/DL CREATININE (test code = 2214) 4.17 MG/DL eGFR AMER. (test code 13 ML/MIN/1.73 = 15954) eGFR NON- AMER. (test 11 ML/MIN/1.73 code = 93944) CALC BUN/CREAT (test code = 7 RATIO [...] code = 2219) 10 U/L CBC W/AUTO [id number] 00:00:00 Test Item Value Reference Range Interpretation [...] code = 1015) 187 K/UL CBC W/AUTO [id number] 00:00:00 Test Item Value Reference Range Interpretation [...] code = 1015) 187 K/UL CBC W/AUTO [id number] 00:00:00 Test Item Value Reference Range Interpretation [...] (test code = 1015) 187 K/UL HEMOGLOBIN [id number] 00:00:00 Test Item Value Reference Range Interpretation Comments HEMOGLOBIN A1c (test code = 79493) 8.7 % HEMOGLOBIN [id number] 00:00:00 Test Item Value Reference Range Interpretation Comments HEMOGLOBIN A1c (test code = 83872) 8.7 % HEMOGLOBIN [id number] 00:00:00 Test Item Value Reference Range Interpretation Comments HEMOGLOBIN A1c (test code = 19647) 8.7 % COMPREHENSIVE METABOLIC [id number] 00:00:00 Test Item Value Reference Range Interpretation Comments GLUCOSE (test code = 2217) 229 MG/DL BUN (test code = 2208) 30 MG/DL CREATININE (test code = 2214) 4.17 MG/DL eGFR AMER. (test code 13 ML/MIN/1.73 = 11930) eGFR NON- AMER. (test 11 ML/MIN/1.73 code = 53654) CALC BUN/CREAT (test code = 7 RATIO [...] code = 2219) 10 U/L COMPREHENSIVE METABOLIC [id number] 00:00:00 Test Item Value Reference Range Interpretation Comments GLUCOSE (test code = 2217) 229 MG/DL BUN (test code = 2208) 30 MG/DL CREATININE (test code = 2214) 4.17 MG/DL eGFR AMER. (test code 13 ML/MIN/1.73 = 81240) eGFR NON- AMER. (test 11 ML/MIN/1.73 code = 91902) CALC BUN/CREAT (test code = 7 RATIO [...] code = 2219) 10 U/L CBC W/AUTO [id number] 00:00:00 Test Item Value Reference Range Interpretation [...] code = 1015) 187 K/UL CBC W/AUTO [id number] 00:00:00 Test Item Value Reference Range Interpretation [...] code = 1015) 187 K/UL CBC W/AUTO [id number] 00:00:00 Test Item Value Reference Range Interpretation [...] (test code = 1015) 187 K/UL HEMOGLOBIN [id number] 00:00:00 Test Item Value Reference Range Interpretation Comments HEMOGLOBIN A1c (test code = 60567) 8.7 % HEMOGLOBIN [id number] 00:00:00 Test Item Value Reference Range Interpretation Comments HEMOGLOBIN A1c (test code = 16342) 8.7 % HEMOGLOBIN [id number] 00:00:00 Test Item Value Reference Range Interpretation Comments HEMOGLOBIN A1c (test code = 32423) 8.7 % COMPREHENSIVE METABOLIC [id number] 00:00:00 Test Item Value Reference Range Interpretation Comments GLUCOSE (test code = 2217) 229 MG/DL BUN (test code = 2208) 30 MG/DL CREATININE (test code = 2214) 4.17 MG/DL eGFR AMER. (test code 13 ML/MIN/1.73 = 86985) eGFR NON- AMER. (test 11 ML/MIN/1.73 code = 57383) CALC BUN/CREAT (test code = 7 RATIO [...] code = 2219) 10 U/L COMPREHENSIVE METABOLIC [id number] 00:00:00 Test Item Value Reference Range Interpretation Comments GLUCOSE (test code = 2217) 229 MG/DL BUN (test code = 2208) 30 MG/DL CREATININE (test code = 2214) 4.17 MG/DL eGFR AMER. (test code 13 ML/MIN/1.73 = 67546) eGFR NON- AMER. (test 11 ML/MIN/1.73 code = 41834) CALC BUN/CREAT (test code = 7 RATIO [...] code = 2219) 10 U/L CBC W/AUTO [id number] 00:00:00 Test Item Value Reference Range Interpretation [...] code = 1015) 187 K/UL CBC W/AUTO [id number] 00:00:00 Test Item Value Reference Range Interpretation [...] code = 1015) 187 K/UL CBC W/AUTO [id number] 00:00:00 Test Item Value Reference Range Interpretation [...] code = 1015) 187 K/UL CBC W/AUTO [id number] 00:00:00 Test Item Value Reference Range Interpretation [...] code = 1015) 187 K/UL CBC W/AUTO [id number] 00:00:00 Test Item Value Reference Range Interpretation [...] (test code = 1015) 187 K/UL HEMOGLOBIN [id number] 00:00:00 Test Item Value Reference Range Interpretation Comments HEMOGLOBIN A1c (test code = 87073) 8.7 % HEMOGLOBIN [id number] 00:00:00 Test Item Value Reference Range Interpretation Comments HEMOGLOBIN A1c (test code = 92601) 8.7 % HEMOGLOBIN [id number] 00:00:00 Test Item Value Reference Range Interpretation Comments HEMOGLOBIN A1c (test code = 95492) 8.7 % COMPREHENSIVE METABOLIC [id number] 00:00:00 Test Item Value Reference Range Interpretation Comments GLUCOSE (test code = 2217) 229 MG/DL BUN (test code = 2208) 30 MG/DL CREATININE (test code = 2214) 4.17 MG/DL eGFR AMER. (test code 13 ML/MIN/1.73 = 89100) eGFR NON- AMER. (test 11 ML/MIN/1.73 code = 08794) CALC BUN/CREAT (test code = 7 RATIO [...] (test code = 2219) 10 U/L HEMOGLOBIN [id number] 00:00:00 Test Item Value Reference Range Interpretation Comments HEMOGLOBIN A1c (test code = 32626) 8.7 % COMPREHENSIVE METABOLIC [id number] 00:00:00 Test Item Value Reference Range Interpretation Comments GLUCOSE (test code = 2217) 229 MG/DL BUN (test code = 2208) 30 MG/DL CREATININE (test code = 2214) 4.17 MG/DL eGFR AMER. (test code 13 ML/MIN/1.73 = 46132) eGFR NON- AMER. (test 11 ML/MIN/1.73 code = 19014) CALC BUN/CREAT (test code = 7 RATIO [...] (test code = 2219) 10 U/L HEMOGLOBIN [id number] 00:00:00 Test Item Value Reference Range Interpretation Comments HEMOGLOBIN A1c (test code = 34630) 8.7 % COMPREHENSIVE METABOLIC [id number] 00:00:00 Test Item Value Reference Range Interpretation Comments GLUCOSE (test code = 2217) 229 MG/DL BUN (test code = 2208) 30 MG/DL CREATININE (test code = 2214) 4.17 MG/DL eGFR AMER. (test code 13 ML/MIN/1.73 = 98927) eGFR NON- AMER. (test 11 ML/MIN/1.73 code = 60219) CALC BUN/CREAT (test code = 7 RATIO [...] code = 2219) 10 U/L CBC W/AUTO [id number] 00:00:00 Test Item Value Reference Range Interpretation [...] code = 1015) 187 K/UL CBC W/AUTO [id number] 00:00:00 Test Item Value Reference Range Interpretation [...] code = 1015) 187 K/UL CBC W/AUTO [id number] 00:00:00 Test Item Value Reference Range Interpretation [...] (test code = 1015) 187 K/UL HEMOGLOBIN [id number] 00:00:00 Test Item Value Reference Range Interpretation Comments HEMOGLOBIN A1c (test code = 06959) 8.7 % HEMOGLOBIN [id number] 00:00:00 Test Item Value Reference Range Interpretation Comments HEMOGLOBIN A1c (test code = 05373) 8.7 % HEMOGLOBIN [id number] 00:00:00 Test Item Value Reference Range Interpretation Comments HEMOGLOBIN A1c (test code = 97307) 8.7 % COMPREHENSIVE METABOLIC [id number] 00:00:00 Test Item Value Reference Range Interpretation Comments GLUCOSE (test code = 2217) 229 MG/DL BUN (test code = 2208) 30 MG/DL CREATININE (test code = 2214) 4.17 MG/DL eGFR AMER. (test code 13 ML/MIN/1.73 = 66471) eGFR NON- AMER. (test 11 ML/MIN/1.73 code = 85820) CALC BUN/CREAT (test code = 7 RATIO [...] (test code = 2219) 10 U/L SURGICAL [id number] 08:04:00 RUN DATE: 07/06/18 [facility] *LIVE* PAGE 1 RUN TIME: 08 Specimen Inquiry RUN USER: INTERFACE --------- ---PATIENT: MARGARITA CORONADO LOC: SureshNAOMI U #: [id number] AGE/SX: 58/F ROOM: [id number]/30/18REG DR: Jonathan Reid MD : 56 BED: DIS: STATUS: [facility] [place]: SPEC #: [id number] RECD: 07/01/18 STATUS: AMILCAR MORALES #: [id number] JENIFFER: 07/01/[address] [facility] [address]: Jonathan Reid MD ENTERED: 07/05/18 SP TYPE: SURGSPEC OTHR DR: No Primary or Family PhysicianORDERED: GM LEVEL 4 CODES: [id number] - COLON, NOS COPIES TO: No Primary or Family Physician Jonathan Reid MD [address] [address] PROCEDURES: GM LEVEL 4 (Incomplete) TISSUES: 1. COLON, NOS - Colon, ascending, bx. 2. COLON, NOS - Colon, transverse, bx. 3. COLON, NOS - Colon, descending, bx. FINAL DIAGNOSIS Colon, ascending, bx.: Tubular adenoma. Colon, transverse, bx.: Tubular adenoma. Colon, descnding, bx.: Tubular adenoma. GROSSAND MICROSCOPIC GROSS EXAMINATION: Received in formalin labeled ascending colon polyp is one hinson tissue fragment measuring 0.3 cm (A). Received in formalin labeled transverse colon polyp are 4 hinson tissue fragments measuring up to 0.3 cm (B). Received in formalin labeled descending colon polyp is onetan tissue fragment measuring up to 0.3 cm (C). 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 CONTINUED ON NEXT PAGE RUN DATE: 07/06/18 [facility] *LIVE* PAGE 2 RUN TIME: 803 Specimen Inquiry RUN USER: INTERFACE -------- ----SPEC #: [id number] PATIENT: MARGARITA CORONADO #[id number] (Continued) POST-OP DIAGNOSIS Colon polyp PRE-OP DIAGNOSIS Colon scree n SignedSIGNATURE ON FILE Frederick Scott Brigida LARA 07/06/18 0804 END OF REPORT PTH, INTACT, WITH CALCIUM, PHOSPHORUS, [id number] 00:00:00 Test Item Value Reference Range Interpretation Comments INTACT PTH (test code = 5005) 256 PG/ML CALCIUM (test code = 2209) 9.0 MG/DL PHOSPHORUS (test code = 2227) 4.6 MG/DL CREATININE (test code = 2214) 3.71 MG/DL eGFR AMER. (test code 15 ML/MIN/1.73 = 05145) eGFR NON- AMER. (test 13 ML/MIN/1.73 code = 35531) PTH, INTACT, WITH CALCIUM, PHOSPHORUS, [id number] 00:00:00 Test Item Value Reference Range Interpretation Comments INTACT PTH (test code = 5005) 256 PG/ML CALCIUM (test code = 2209) 9.0 MG/DL PHOSPHORUS (test code = 2227) 4.6 MG/DL CREATININE (test code = 2214) 3.71 MG/DL eGFR AMER. (test code 15 ML/MIN/1.73 = 59443) eGFR NON- AMER. (test 13 ML/MIN/1.73 code = 43857) PTH, INTACT, WITH CALCIUM, PHOSPHORUS, [id number] 00:00:00 Test Item Value Reference Range Interpretation Comments INTACT PTH (test code = 5005) 256 PG/ML CALCIUM (test code = 2209) 9.0 MG/DL PHOSPHORUS (test code = 2227) 4.6 MG/DL CREATININE (test code = 2214) 3.71 MG/DL eGFR AMER. (test code 15 ML/MIN/1.73 = 24353) eGFR NON- AMER. (test 13 ML/MIN/1.73 code = 76937) PTH, INTACT, WITH CALCIUM, PHOSPHORUS, [id number] 00:00:00 Test Item Value Reference Range Interpretation Comments INTACT PTH (test code = 5005) 256 PG/ML CALCIUM (test code = 2209) 9.0 MG/DL PHOSPHORUS (test code = 2227) 4.6 MG/DL CREATININE (test code = 2214) 3.71 MG/DL eGFR AMER. (test code 15 ML/MIN/1.73 = 81471) eGFR NON- AMER. (test 13 ML/MIN/1.73 code = 18864) PTH, INTACT, WITH CALCIUM, PHOSPHORUS, [id number] 00:00:00 Test Item Value Reference Range Interpretation Comments INTACT PTH (test code = 5005) 256 PG/ML CALCIUM (test code = 2209) 9.0 MG/DL PHOSPHORUS (test code = 2227) 4.6 MG/DL CREATININE (test code = 2214) 3.71 MG/DL eGFR AMER. (test code 15 ML/MIN/1.73 = 37919) eGFR NON- AMER. (test 13 ML/MIN/1.73 code = 50873) PTH, INTACT, WITH CALCIUM, PHOSPHORUS, [id number] 00:00:00 Test Item Value Reference Range Interpretation Comments INTACT PTH (test code = 5005) 256 PG/ML CALCIUM (test code = 2209) 9.0 MG/DL PHOSPHORUS (test code = 2227) 4.6 MG/DL CREATININE (test code = 2214) 3.71 MG/DL eGFR AMER. (test code 15 ML/MIN/1.73 = 52562) eGFR NON- AMER. (test 13 ML/MIN/1.73 code = 61246) PTH, INTACT, WITH CALCIUM, PHOSPHORUS, [id number] 00:00:00 Test Item Value Reference Range Interpretation Comments INTACT PTH (test code = 5005) 256 PG/ML CALCIUM (test code = 2209) 9.0 MG/DL PHOSPHORUS (test code = 2227) 4.6 MG/DL CREATININE (test code = 2214) 3.71 MG/DL eGFR AMER. (test code 15 ML/MIN/1.73 = 12286) eGFR NON- AMER. (test 13 ML/MIN/1.73 code = 27622) PTH, INTACT, WITH CALCIUM, PHOSPHORUS, [id number] 00:00:00 Test Item Value Reference Range Interpretation Comments INTACT PTH (test code = 5005) 256 PG/ML CALCIUM (test code = 2209) 9.0 MG/DL PHOSPHORUS (test code = 2227) 4.6 MG/DL CREATININE (test code = 2214) 3.71 MG/DL eGFR AMER. (test code 15 ML/MIN/1.73 = 70620) eGFR NON- AMER. (test 13 ML/MIN/1.73 code = 38846) PTH, INTACT, WITH CALCIUM, PHOSPHORUS, [id number] 00:00:00 Test Item Value Reference Range Interpretation Comments INTACT PTH (test code = 5005) 256 PG/ML CALCIUM (test code = 2209) 9.0 MG/DL PHOSPHORUS (test code = 2227) 4.6 MG/DL CREATININE (test code = 2214) 3.71 MG/DL eGFR AMER. (test code 15 ML/MIN/1.73 = 57233) eGFR NON- AMER. (test 13 ML/MIN/1.73 code = 90315) PTH, INTACT, WITH CALCIUM, PHOSPHORUS, [id number] 00:00:00 Test Item Value Reference Range Interpretation Comments INTACT PTH (test code = 5005) 256 PG/ML CALCIUM (test code = 2209) 9.0 MG/DL PHOSPHORUS (test code = 2227) 4.6 MG/DL CREATININE (test code = 2214) 3.71 MG/DL eGFR AMER. (test code 15 ML/MIN/1.73 = 01062) eGFR NON- AMER. (test 13 ML/MIN/1.73 code = 21939) PTH, INTACT, WITH CALCIUM, PHOSPHORUS, [id number] 00:00:00 Test Item Value Reference Range Interpretation Comments INTACT PTH (test code = 5005) 256 PG/ML CALCIUM (test code = 2209) 9.0 MG/DL PHOSPHORUS (test code = 2227) 4.6 MG/DL CREATININE (test code = 2214) 3.71 MG/DL eGFR AMER. (test code 15 ML/MIN/1.73 = 18194) eGFR NON- AMER. (test 13 ML/MIN/1.73 code = 55651) PTH, INTACT, WITH CALCIUM, PHOSPHORUS, [id number] 00:00:00 Test Item Value Reference Range Interpretation Comments INTACT PTH (test code = 5005) 256 PG/ML CALCIUM (test code = 2209) 9.0 MG/DL PHOSPHORUS (test code = 2227) 4.6 MG/DL CREATININE (test code = 2214) 3.71 MG/DL eGFR AMER. (test code 15 ML/MIN/1.73 = 91500) eGFR NON- AMER. (test 13 ML/MIN/1.73 code = 87666) PTH, INTACT, WITH CALCIUM, PHOSPHORUS, [id number] 00:00:00 Test Item Value Reference Range Interpretation Comments INTACT PTH (test code = 5005) 256 PG/ML CALCIUM (test code = 2209) 9.0 MG/DL PHOSPHORUS (test code = 2227) 4.6 MG/DL CREATININE (test code = 2214) 3.71 MG/DL eGFR AMER. (test code 15 ML/MIN/1.73 = 49021) eGFR NON- AMER. (test 13 ML/MIN/1.73 code = 98449) PTH, INTACT, WITH CALCIUM, PHOSPHORUS, [id number] 00:00:00 Test Item Value Reference Range Interpretation Comments INTACT PTH (test code = 5005) 256 PG/ML CALCIUM (test code = 2209) 9.0 MG/DL PHOSPHORUS (test code = 2227) 4.6 MG/DL CREATININE (test code = 2214) 3.71 MG/DL eGFR AMER. (test code 15 ML/MIN/1.73 = 93735) eGFR NON- AMER. (test 13 ML/MIN/1.73 code = 04486) PTH, INTACT, WITH CALCIUM, PHOSPHORUS, [id number] 00:00:00 Test Item Value Reference Range Interpretation Comments INTACT PTH (test code = 5005) 256 PG/ML CALCIUM (test code = 2209) 9.0 MG/DL PHOSPHORUS (test code = 2227) 4.6 MG/DL CREATININE (test code = 2214) 3.71 MG/DL eGFR AMER. (test code 15 ML/MIN/1.73 = 08738) eGFR NON- AMER. (test 13 ML/MIN/1.73 code = 63980) PTH, INTACT, WITH CALCIUM, PHOSPHORUS, [id number] 00:00:00 Test Item Value Reference Range Interpretation Comments INTACT PTH (test code = 5005) 256 PG/ML CALCIUM (test code = 2209) 9.0 MG/DL PHOSPHORUS (test code = 2227) 4.6 MG/DL CREATININE (test code = 2214) 3.71 MG/DL eGFR AMER. (test code 15 ML/MIN/1.73 = 84967) eGFR NON- AMER. (test 13 ML/MIN/1.73 code = 73418) PTH, INTACT, WITH CALCIUM, PHOSPHORUS, [id number] 00:00:00 Test Item Value Reference Range Interpretation Comments INTACT PTH (test code = 5005) 256 PG/ML CALCIUM (test code = 2209) 9.0 MG/DL PHOSPHORUS (test code = 2227) 4.6 MG/DL CREATININE (test code = 2214) 3.71 MG/DL eGFR AMER. (test code 15 ML/MIN/1.73 = 50771) eGFR NON- AMER. (test 13 ML/MIN/1.73 code = 21346) VITAMIN D, 25 [id number] 00:00:00 Test Item Value Reference Range Interpretation Comments VITAMIN D, 25 OH (test code = 4958) 31 NG/ML HEMOGLOBIN [id number] 00:00:00 Test Item Value Reference Range Interpretation Comments HEMOGLOBIN A1c (test code = 74009) 8.0 % HEMOGLOBIN [id number] 00:00:00 Test Item Value Reference Range Interpretation Comments HEMOGLOBIN A1c (test code = 63903) 8.0 % HEMOGLOBIN [id number] 00:00:00 Test Item Value Reference Range Interpretation Comments HEMOGLOBIN A1c (test code = 59672) 8.0 % LIPID [id number] 00:00:00 Test Item Value Reference Range Interpretation Comments CHOLESTEROL (test code = 2210) 183 MG/DL TRIGLYCERIDES (test code = 2232) 126 MG/DL HDL CHOLESTEROL (test code = 2220) 67 MG/DL CALC LDL CHOL (test code = 2237) 91 MG/DL RISK RATIO LDL/HDL (test code = 1.36 RATIO 2238) LIPID [id number] 00:00:00 Test Item Value Reference Range Interpretation Comments CHOLESTEROL (test code = 2210) 183 MG/DL TRIGLYCERIDES (test code = 2232) 126 MG/DL HDL CHOLESTEROL (test code = 2220) 67 MG/DL CALC LDL CHOL (test code = 2237) 91 MG/DL RISK RATIO LDL/HDL (test code = 1.36 RATIO 2238) COMPREHENSIVE METABOLIC [id number] 00:00:00 Test Item Value Reference Range Interpretation Comments GLUCOSE (test code = 2217) 220 MG/DL BUN (test code = 2208) 55 MG/DL CREATININE (test code = 2214) 3.71 MG/DL eGFR AMER. (test code 15 ML/MIN/1.73 = 96242) eGFR NON- AMER. (test 13 ML/MIN/1.73 code = 61058) CALC BUN/CREAT (test code = 15 RATIO [...] code = 2219) 15 U/L COMPREHENSIVE METABOLIC [id number] 00:00:00 Test Item Value Reference Range Interpretation Comments GLUCOSE (test code = 2217) 220 MG/DL BUN (test code = 2208) 55 MG/DL CREATININE (test code = 2214) 3.71 MG/DL eGFR AMER. (test code 15 ML/MIN/1.73 = 35406) eGFR NON- AMER. (test 13 ML/MIN/1.73 code = 62778) CALC BUN/CREAT (test code = 15 RATIO [...] = 2219) 15 U/L MICROALBUMIN/CREATININE, RANDOM AND [id number] 00:00:00 Test Item Value Reference Range Interpretation Comments CREATININE, URINE, CONC. (test 38.3 MG/DL code = 2072) ALBUMIN, URINE, RANDOM (test code 275.7 MG/DL = 79165) CALC ALBUMIN/CREAT, RND (test 7198 MG/G code = 77924) MICROALBUMIN/CREATININE, RANDOM AND [id number] 00:00:00 Test Item Value Reference Range Interpretation Comments CREATININE, URINE, CONC. (test 38.3 MG/DL code = 2072) ALBUMIN, URINE, RANDOM (test code 275.7 MG/DL = 22625) CALC ALBUMIN/CREAT, RND (test 7198 MG/G code = 67054) CBC W/AUTO [id number] 00:00:00 Test Item Value Reference Range Interpretation [...] code = 1015) 233 K/UL CBC W/AUTO [id number] 00:00:00 Test Item Value Reference Range Interpretation [...] code = 1015) 233 K/UL CBC W/AUTO [id number] 00:00:00 Test Item Value Reference Range Interpretation [...] COUNT (test code = 1015) 233 K/UL [id number] 00:00:00 Test Item Value Reference Range Interpretation Comments TSH, THIRD GENERATION (test code 2.370 UIU/ML = 2821) [id number] 00:00:00 Test Item Value Reference Range Interpretation Comments TSH, THIRD GENERATION (test code 2.370 UIU/ML = 2821) [id number] 00:00:00 Test Item Value Reference Range Interpretation Comments TSH, THIRD GENERATION (test code 2.370 UIU/ML = 2821) VITAMIN D, 25 [id number] 00:00:00 Test Item Value Reference Range Interpretation Comments VITAMIN D, 25 OH (test code = 4958) 31 NG/ML VITAMIN D, 25 [id number] 00:00:00 Test Item Value Reference Range Interpretation Comments VITAMIN D, 25 OH (test code = 4958) 31 NG/ML HEMOGLOBIN [id number] 00:00:00 Test Item Value Reference Range Interpretation Comments HEMOGLOBIN A1c (test code = 76824) 8.0 % HEMOGLOBIN [id number] 00:00:00 Test Item Value Reference Range Interpretation Comments HEMOGLOBIN A1c (test code = 67977) 8.0 % HEMOGLOBIN [id number] 00:00:00 Test Item Value Reference Range Interpretation Comments HEMOGLOBIN A1c (test code = 79052) 8.0 % LIPID [id number] 00:00:00 Test Item Value Reference Range Interpretation Comments CHOLESTEROL (test code = 2210) 183 MG/DL TRIGLYCERIDES (test code = 2232) 126 MG/DL HDL CHOLESTEROL (test code = 2220) 67 MG/DL CALC LDL CHOL (test code = 2237) 91 MG/DL RISK RATIO LDL/HDL (test code = 1.36 RATIO 2238) LIPID [id number] 00:00:00 Test Item Value Reference Range Interpretation Comments CHOLESTEROL (test code = 2210) 183 MG/DL TRIGLYCERIDES (test code = 2232) 126 MG/DL HDL CHOLESTEROL (test code = 2220) 67 MG/DL CALC LDL CHOL (test code = 2237) 91 MG/DL RISK RATIO LDL/HDL (test code = 1.36 RATIO 2238) COMPREHENSIVE METABOLIC [id number] 00:00:00 Test Item Value Reference Range Interpretation Comments GLUCOSE (test code = 2217) 220 MG/DL BUN (test code = 2208) 55 MG/DL CREATININE (test code = 2214) 3.71 MG/DL eGFR AMER. (test code 15 ML/MIN/1.73 = 68990) eGFR NON- AMER. (test 13 ML/MIN/1.73 code = 98300) CALC BUN/CREAT (test code = 15 RATIO [...] code = 2219) 15 U/L COMPREHENSIVE METABOLIC [id number] 00:00:00 Test Item Value Reference Range Interpretation Comments GLUCOSE (test code = 2217) 220 MG/DL BUN (test code = 2208) 55 MG/DL CREATININE (test code = 2214) 3.71 MG/DL eGFR AMER. (test code 15 ML/MIN/1.73 = 59635) eGFR NON- AMER. (test 13 ML/MIN/1.73 code = 69587) CALC BUN/CREAT (test code = 15 RATIO [...] = 2219) 15 U/L MICROALBUMIN/CREATININE, RANDOM AND [id number] 00:00:00 Test Item Value Reference Range Interpretation Comments CREATININE, URINE, CONC. (test 38.3 MG/DL code = 2072) ALBUMIN, URINE, RANDOM (test code 275.7 MG/DL = 76141) CALC ALBUMIN/CREAT, RND (test 7198 MG/G code = 03133) MICROALBUMIN/CREATININE, RANDOM AND [id number] 00:00:00 Test Item Value Reference Range Interpretation Comments CREATININE, URINE, CONC. (test 38.3 MG/DL code = 2072) ALBUMIN, URINE, RANDOM (test code 275.7 MG/DL = 75976) CALC ALBUMIN/CREAT, RND (test 7198 MG/G code = 57222) CBC W/AUTO [id number] 00:00:00 Test Item Value Reference Range Interpretation [...] code = 1015) 233 K/UL CBC W/AUTO [id number] 00:00:00 Test Item Value Reference Range Interpretation [...] code = 1015) 233 K/UL CBC W/AUTO [id number] 00:00:00 Test Item Value Reference Range Interpretation [...] COUNT (test code = 1015) 233 K/UL [id number] 00:00:00 Test Item Value Reference Range Interpretation Comments TSH, THIRD GENERATION (test code 2.370 UIU/ML = 2821) [id number] 00:00:00 Test Item Value Reference Range Interpretation Comments TSH, THIRD GENERATION (test code 2.370 UIU/ML = 2821) [id number] 00:00:00 Test Item Value Reference Range Interpretation Comments TSH, THIRD GENERATION (test code 2.370 UIU/ML = 2821) VITAMIN D, 25 [id number] 00:00:00 Test Item Value Reference Range Interpretation Comments VITAMIN D, 25 OH (test code = 4958) 31 NG/ML VITAMIN D, 25 [id number] 00:00:00 Test Item Value Reference Range Interpretation Comments VITAMIN D, 25 OH (test code = 4958) 31 NG/ML HEMOGLOBIN [id number] 00:00:00 Test Item Value Reference Range Interpretation Comments HEMOGLOBIN A1c (test code = 01232) 8.0 % HEMOGLOBIN [id number] 00:00:00 Test Item Value Reference Range Interpretation Comments HEMOGLOBIN A1c (test code = 12932) 8.0 % HEMOGLOBIN [id number] 00:00:00 Test Item Value Reference Range Interpretation Comments HEMOGLOBIN A1c (test code = 31752) 8.0 % LIPID [id number] 00:00:00 Test Item Value Reference Range Interpretation Comments CHOLESTEROL (test code = 2210) 183 MG/DL TRIGLYCERIDES (test code = 2232) 126 MG/DL HDL CHOLESTEROL (test code = 2220) 67 MG/DL CALC LDL CHOL (test code = 2237) 91 MG/DL RISK RATIO LDL/HDL (test code = 1.36 RATIO 2238) LIPID [id number] 00:00:00 Test Item Value Reference Range Interpretation Comments CHOLESTEROL (test code = 2210) 183 MG/DL TRIGLYCERIDES (test code = 2232) 126 MG/DL HDL CHOLESTEROL (test code = 2220) 67 MG/DL CALC LDL CHOL (test code = 2237) 91 MG/DL RISK RATIO LDL/HDL (test code = 1.36 RATIO 2238) COMPREHENSIVE METABOLIC [id number] 00:00:00 Test Item Value Reference Range Interpretation Comments GLUCOSE (test code = 2217) 220 MG/DL BUN (test code = 2208) 55 MG/DL CREATININE (test code = 2214) 3.71 MG/DL eGFR AMER. (test code 15 ML/MIN/1.73 = 92783) eGFR NON- AMER. (test 13 ML/MIN/1.73 code = 09027) CALC BUN/CREAT (test code = 15 RATIO [...] code = 2219) 15 U/L COMPREHENSIVE METABOLIC [id number] 00:00:00 Test Item Value Reference Range Interpretation Comments GLUCOSE (test code = 2217) 220 MG/DL BUN (test code = 2208) 55 MG/DL CREATININE (test code = 2214) 3.71 MG/DL eGFR AMER. (test code 15 ML/MIN/1.73 = 94846) eGFR NON- AMER. (test 13 ML/MIN/1.73 code = 72581) CALC BUN/CREAT (test code = 15 RATIO [...] = 2219) 15 U/L MICROALBUMIN/CREATININE, RANDOM AND [id number] 00:00:00 Test Item Value Reference Range Interpretation Comments CREATININE, URINE, CONC. (test 38.3 MG/DL code = 2072) ALBUMIN, URINE, RANDOM (test code 275.7 MG/DL = 50131) CALC ALBUMIN/CREAT, RND (test 7198 MG/G code = 95190) MICROALBUMIN/CREATININE, RANDOM AND [id number] 00:00:00 Test Item Value Reference Range Interpretation Comments CREATININE, URINE, CONC. (test 38.3 MG/DL code = 2072) ALBUMIN, URINE, RANDOM (test code 275.7 MG/DL = 16018) CALC ALBUMIN/CREAT, RND (test 7198 MG/G code = 56018) CBC W/AUTO [id number] 00:00:00 Test Item Value Reference Range Interpretation [...] code = 1015) 233 K/UL CBC W/AUTO [id number] 00:00:00 Test Item Value Reference Range Interpretation [...] code = 1015) 233 K/UL CBC W/AUTO [id number] 00:00:00 Test Item Value Reference Range Interpretation [...] COUNT (test code = 1015) 233 K/UL [id number] 00:00:00 Test Item Value Reference Range Interpretation Comments TSH, THIRD GENERATION (test code 2.370 UIU/ML = 2821) [id number] 00:00:00 Test Item Value Reference Range Interpretation Comments TSH, THIRD GENERATION (test code 2.370 UIU/ML = 2821) [id number] 00:00:00 Test Item Value Reference Range Interpretation Comments TSH, THIRD GENERATION (test code 2.370 UIU/ML = 2821) VITAMIN D, 25 [id number] 00:00:00 Test Item Value Reference Range Interpretation Comments VITAMIN D, 25 OH (test code = 4958) 31 NG/ML VITAMIN D, 25 [id number] 00:00:00 Test Item Value Reference Range Interpretation Comments VITAMIN D, 25 OH (test code = 4958) 31 NG/ML HEMOGLOBIN [id number] 00:00:00 Test Item Value Reference Range Interpretation Comments HEMOGLOBIN A1c (test code = 87913) 8.0 % HEMOGLOBIN [id number] 00:00:00 Test Item Value Reference Range Interpretation Comments HEMOGLOBIN A1c (test code = 87563) 8.0 % HEMOGLOBIN [id number] 00:00:00 Test Item Value Reference Range Interpretation Comments HEMOGLOBIN A1c (test code = 73077) 8.0 % LIPID [id number] 00:00:00 Test Item Value Reference Range Interpretation Comments CHOLESTEROL (test code = 2210) 183 MG/DL TRIGLYCERIDES (test code = 2232) 126 MG/DL HDL CHOLESTEROL (test code = 2220) 67 MG/DL CALC LDL CHOL (test code = 2237) 91 MG/DL RISK RATIO LDL/HDL (test code = 1.36 RATIO 2238) LIPID [id number] 00:00:00 Test Item Value Reference Range Interpretation Comments CHOLESTEROL (test code = 2210) 183 MG/DL TRIGLYCERIDES (test code = 2232) 126 MG/DL HDL CHOLESTEROL (test code = 2220) 67 MG/DL CALC LDL CHOL (test code = 2237) 91 MG/DL RISK RATIO LDL/HDL (test code = 1.36 RATIO 2238) COMPREHENSIVE METABOLIC [id number] 00:00:00 Test Item Value Reference Range Interpretation Comments GLUCOSE (test code = 2217) 220 MG/DL BUN (test code = 2208) 55 MG/DL CREATININE (test code = 2214) 3.71 MG/DL eGFR AMER. (test code 15 ML/MIN/1.73 = 63453) eGFR NON- AMER. (test 13 ML/MIN/1.73 code = 13388) CALC BUN/CREAT (test code = 15 RATIO [...] code = 2219) 15 U/L COMPREHENSIVE METABOLIC [id number] 00:00:00 Test Item Value Reference Range Interpretation Comments GLUCOSE (test code = 2217) 220 MG/DL BUN (test code = 2208) 55 MG/DL CREATININE (test code = 2214) 3.71 MG/DL eGFR AMER. (test code 15 ML/MIN/1.73 = 24350) eGFR NON- AMER. (test 13 ML/MIN/1.73 code = 70806) CALC BUN/CREAT (test code = 15 RATIO [...] = 2219) 15 U/L MICROALBUMIN/CREATININE, RANDOM AND [id number] 00:00:00 Test Item Value Reference Range Interpretation Comments CREATININE, URINE, CONC. (test 38.3 MG/DL code = 2072) ALBUMIN, URINE, RANDOM (test code 275.7 MG/DL = 85231) CALC ALBUMIN/CREAT, RND (test 7198 MG/G code = 81651) MICROALBUMIN/CREATININE, RANDOM AND [id number] 00:00:00 Test Item Value Reference Range Interpretation Comments CREATININE, URINE, CONC. (test 38.3 MG/DL code = 2072) ALBUMIN, URINE, RANDOM (test code 275.7 MG/DL = 11859) CALC ALBUMIN/CREAT, RND (test 7198 MG/G code = 31412) CBC W/AUTO [id number] 00:00:00 Test Item Value Reference Range Interpretation [...] code = 1015) 233 K/UL CBC W/AUTO [id number] 00:00:00 Test Item Value Reference Range Interpretation [...] code = 1015) 233 K/UL CBC W/AUTO [id number] 00:00:00 Test Item Value Reference Range Interpretation [...] code = 1015) 233 K/UL CBC W/AUTO [id number] 00:00:00 Test Item Value Reference Range Interpretation [...] code = 1015) 233 K/UL CBC W/AUTO [id number] 00:00:00 Test Item Value Reference Range Interpretation [...] COUNT (test code = 1015) 233 K/UL [id number] 00:00:00 Test Item Value Reference Range Interpretation Comments TSH, THIRD GENERATION (test code 2.370 UIU/ML = 2821) [id number] 00:00:00 Test Item Value Reference Range Interpretation Comments TSH, THIRD GENERATION (test code 2.370 UIU/ML = 2821) [id number] 00:00:00 Test Item Value Reference Range Interpretation Comments TSH, THIRD GENERATION (test code 2.370 UIU/ML = 2821) VITAMIN D, 25 [id number] 00:00:00 Test Item Value Reference Range Interpretation Comments VITAMIN D, 25 OH (test code = 4958) 31 NG/ML [id number] 00:00:00 Test Item Value Reference Range Interpretation Comments TSH, THIRD GENERATION (test code 2.370 UIU/ML = 2821) VITAMIN D, 25 [id number] 00:00:00 Test Item Value Reference Range Interpretation Comments VITAMIN D, 25 OH (test code = 4958) 31 NG/ML HEMOGLOBIN [id number] 00:00:00 Test Item Value Reference Range Interpretation Comments HEMOGLOBIN A1c (test code = 75001) 8.0 % HEMOGLOBIN [id number] 00:00:00 Test Item Value Reference Range Interpretation Comments HEMOGLOBIN A1c (test code = 67707) 8.0 % HEMOGLOBIN [id number] 00:00:00 Test Item Value Reference Range Interpretation Comments HEMOGLOBIN A1c (test code = 35911) 8.0 % LIPID [id number] 00:00:00 Test Item Value Reference Range Interpretation Comments CHOLESTEROL (test code = 2210) 183 MG/DL TRIGLYCERIDES (test code = 2232) 126 MG/DL HDL CHOLESTEROL (test code = 2220) 67 MG/DL CALC LDL CHOL (test code = 2237) 91 MG/DL RISK RATIO LDL/HDL (test code = 1.36 RATIO 2238) LIPID [id number] 00:00:00 Test Item Value Reference Range Interpretation Comments CHOLESTEROL (test code = 2210) 183 MG/DL TRIGLYCERIDES (test code = 2232) 126 MG/DL HDL CHOLESTEROL (test code = 2220) 67 MG/DL CALC LDL CHOL (test code = 2237) 91 MG/DL RISK RATIO LDL/HDL (test code = 1.36 RATIO 2238) COMPREHENSIVE METABOLIC [id number] 00:00:00 Test Item Value Reference Range Interpretation Comments GLUCOSE (test code = 2217) 220 MG/DL BUN (test code = 2208) 55 MG/DL CREATININE (test code = 2214) 3.71 MG/DL eGFR AMER. (test code 15 ML/MIN/1.73 = 15845) eGFR NON- AMER. (test 13 ML/MIN/1.73 code = 82227) CALC BUN/CREAT (test code = 15 RATIO [...] code = 2219) 15 U/L COMPREHENSIVE METABOLIC [id number] 00:00:00 Test Item Value Reference Range Interpretation Comments GLUCOSE (test code = 2217) 220 MG/DL BUN (test code = 2208) 55 MG/DL CREATININE (test code = 2214) 3.71 MG/DL eGFR AMER. (test code 15 ML/MIN/1.73 = 74084) eGFR NON- AMER. (test 13 ML/MIN/1.73 code = 12735) CALC BUN/CREAT (test code = 15 RATIO [...] = 2219) 15 U/L MICROALBUMIN/CREATININE, RANDOM AND [id number] 00:00:00 Test Item Value Reference Range Interpretation Comments CREATININE, URINE, CONC. (test 38.3 MG/DL code = 2072) ALBUMIN, URINE, RANDOM (test code 275.7 MG/DL = 62764) CALC ALBUMIN/CREAT, RND (test 7198 MG/G code = 51137) MICROALBUMIN/CREATININE, RANDOM AND [id number] 00:00:00 Test Item Value Reference Range Interpretation Comments CREATININE, URINE, CONC. (test 38.3 MG/DL code = 2072) ALBUMIN, URINE, RANDOM (test code 275.7 MG/DL = 50393) CALC ALBUMIN/CREAT, RND (test 7198 MG/G code = 50793) [id number] 00:00:00 Test Item Value Reference Range Interpretation Comments TSH, THIRD GENERATION (test code 2.370 UIU/ML = 2821) VITAMIN D, 25 [id number] 00:00:00 Test Item Value Reference Range Interpretation Comments VITAMIN D, 25 OH (test code = 4958) 31 NG/ML HEMOGLOBIN [id number] 00:00:00 Test Item Value Reference Range Interpretation Comments HEMOGLOBIN A1c (test code = 62461) 8.0 % HEMOGLOBIN [id number] 00:00:00 Test Item Value Reference Range Interpretation Comments HEMOGLOBIN A1c (test code = 73890) 8.0 % LIPID [id number] 00:00:00 Test Item Value Reference Range Interpretation Comments CHOLESTEROL (test code = 2210) 183 MG/DL TRIGLYCERIDES (test code = 2232) 126 MG/DL HDL CHOLESTEROL (test code = 2220) 67 MG/DL CALC LDL CHOL (test code = 2237) 91 MG/DL RISK RATIO LDL/HDL (test code = 1.36 RATIO 2238) COMPREHENSIVE METABOLIC [id number] 00:00:00 Test Item Value Reference Range Interpretation Comments GLUCOSE (test code = 2217) 220 MG/DL BUN (test code = 2208) 55 MG/DL CREATININE (test code = 2214) 3.71 MG/DL eGFR AMER. (test code 15 ML/MIN/1.73 = 90831) eGFR NON- AMER. (test 13 ML/MIN/1.73 code = 85542) CALC BUN/CREAT (test code = 15 RATIO [...] = 2219) 15 U/L MICROALBUMIN/CREATININE, RANDOM AND [id number] 00:00:00 Test Item Value Reference Range Interpretation Comments CREATININE, URINE, CONC. (test 38.3 MG/DL code = 2072) ALBUMIN, URINE, RANDOM (test code 275.7 MG/DL = 74358) CALC ALBUMIN/CREAT, RND (test 7198 MG/G code = 17317) CBC W/AUTO [id number] 00:00:00 Test Item Value Reference Range Interpretation [...] code = 1015) 233 K/UL CBC W/AUTO [id number] 00:00:00 Test Item Value Reference Range Interpretation [...] code = 1015) 233 K/UL CBC W/AUTO [id number] 00:00:00 Test Item Value Reference Range Interpretation [...] COUNT (test code = 1015) 233 K/UL [id number] 00:00:00 Test Item Value Reference Range Interpretation Comments TSH, THIRD GENERATION (test code 2.370 UIU/ML = 2821) [id number] 00:00:00 Test Item Value Reference Range Interpretation Comments TSH, THIRD GENERATION (test code 2.370 UIU/ML = 2821) [id number] 00:00:00 Test Item Value Reference Range Interpretation Comments TSH, THIRD GENERATION (test code 2.370 UIU/ML = 2821) VITAMIN D, 25 [id number] 00:00:00 Test Item Value Reference Range Interpretation Comments VITAMIN D, 25 OH (test code = 4958) 31 NG/ML SCR MAMM BILATERAL DAVIS CAD [id number] 15:42:55 - SCR MAMM BILATERAL DAVIS CAD DIGITALBILATERAL DIGITAL SCREENING MAMMOGRAM 3D/2D WITH CAD: 8CLINICAL: Asymptomatic. Digital breast tomosynthesis was performed in addition to routine CC and MLO views. Current mammographic images were evaluated by either a [employer] M-Vu or a [employer] Image[employer]er[employer] (computer aided detection system). No prior exams were available for comparison. There are scattered fibroglandular tissues in both breasts. Symmetric mild bilateral trabecula and skin thickening noted.No suspicious mass, architectural distortion, malignant type calcification, or lymph node abnormality detected. IMPRESSION: NEGATIVEThere is no mammographic evidence of malignancy. Resume annual screening mammography in one year. Marcia Norris M.D. el/:04/27/2018 15:42:55 Offensive Coordinator: Jackelin Rocha MM, [facility] Mammographyletter sent: BIRADS 1-2 Normal Mammogram BI-RADS: 1 [id number] 00:00:00 Test Item Value Reference Range Interpretation Comments TSH, THIRD GENERATION (test code 1.510 UIU/ML = 2821) [id number] 00:00:00 Test Item Value Reference Range Interpretation Comments TSH, THIRD GENERATION (test code 1.510 UIU/ML = 2821) COMPREHENSIVE METABOLIC [id number] 00:00:00 Test Item Value Reference Range Interpretation Comments GLUCOSE (test code = 2217) 337 MG/DL BUN (test code = 2208) 49 MG/DL CREATININE (test code = 2214) 3.21 MG/DL eGFR AMER. (test code 17 ML/MIN/1.73 = 85006) eGFR NON- AMER. (test 15 ML/MIN/1.73 code = 11903) CALC BUN/CREAT (test code = 15 RATIO [...] ALKALINE PHOSPHATASE (test 186 U/L code = 220) AST (test code = 2218) 29 U/L ALT (test code = 2219) 17 U/L COMPREHENSIVE METABOLIC [id number] 00:00:00 Test Item Value Reference Range Interpretation Comments GLUCOSE (test code = 2217) 337 MG/DL BUN (test code = 2208) 49 MG/DL CREATININE (test code = 2214) 3.21 MG/DL eGFR AMER. (test code 17 ML/MIN/1.73 = 81342) eGFR NON- AMER. (test 15 ML/MIN/1.73 code = 97748) CALC BUN/CREAT (test code = 15 RATIO [...] (test code = 2219) 17 U/L HEMOGLOBIN [id number] 00:00:00 Test Item Value Reference Range Interpretation Comments HEMOGLOBIN A1c (test code = 17460) 8.2 % HEMOGLOBIN [id number] 00:00:00 Test Item Value Reference Range Interpretation Comments HEMOGLOBIN A1c (test code = 49644) 8.2 % HEMOGLOBIN [id number] 00:00:00 Test Item Value Reference Range Interpretation Comments HEMOGLOBIN A1c (test code = 39854) 8.2 % [id number] 00:00:00 Test Item Value Reference Range Interpretation Comments TSH, THIRD GENERATION (test code 1.510 UIU/ML = 2821) [id number] 00:00:00 Test Item Value Reference Range Interpretation Comments TSH, THIRD GENERATION (test code 1.510 UIU/ML = 2821) [id number] 00:00:00 Test Item Value Reference Range Interpretation Comments TSH, THIRD GENERATION (test code 1.510 UIU/ML = 2821) COMPREHENSIVE METABOLIC [id number] 00:00:00 Test Item Value Reference Range Interpretation Comments GLUCOSE (test code = 2217) 337 MG/DL BUN (test code = 2208) 49 MG/DL CREATININE (test code = 2214) 3.21 MG/DL eGFR AMER. (test code 17 ML/MIN/1.73 = 74047) eGFR NON- AMER. (test 15 ML/MIN/1.73 code = 16667) CALC BUN/CREAT (test code = 15 RATIO [...] code = 2219) 17 U/L COMPREHENSIVE METABOLIC [id number] 00:00:00 Test Item Value Reference Range Interpretation Comments GLUCOSE (test code = 2217) 337 MG/DL BUN (test code = 2208) 49 MG/DL CREATININE (test code = 2214) 3.21 MG/DL eGFR AMER. (test code 17 ML/MIN/1.73 = 93250) eGFR NON- AMER. (test 15 ML/MIN/1.73 code = 36626) CALC BUN/CREAT (test code = 15 RATIO [...] (test code = 2219) 17 U/L HEMOGLOBIN [id number] 00:00:00 Test Item Value Reference Range Interpretation Comments HEMOGLOBIN A1c (test code = 58902) 8.2 % HEMOGLOBIN [id number] 00:00:00 Test Item Value Reference Range Interpretation Comments HEMOGLOBIN A1c (test code = 92006) 8.2 % HEMOGLOBIN [id number] 00:00:00 Test Item Value Reference Range Interpretation Comments HEMOGLOBIN A1c (test code = 65740) 8.2 % [id number] 00:00:00 Test Item Value Reference Range Interpretation Comments TSH, THIRD GENERATION (test code 1.510 UIU/ML = 2821) [id number] 00:00:00 Test Item Value Reference Range Interpretation Comments TSH, THIRD GENERATION (test code 1.510 UIU/ML = 2821) [id number] 00:00:00 Test Item Value Reference Range Interpretation Comments TSH, THIRD GENERATION (test code 1.510 UIU/ML = 2821) COMPREHENSIVE METABOLIC [id number] 00:00:00 Test Item Value Reference Range Interpretation Comments GLUCOSE (test code = 2217) 337 MG/DL BUN (test code = 2208) 49 MG/DL CREATININE (test code = 2214) 3.21 MG/DL eGFR AMER. (test code 17 ML/MIN/1.73 = 58460) eGFR NON- AMER. (test 15 ML/MIN/1.73 code = 71191) CALC BUN/CREAT (test code = 15 RATIO [...] code = 2219) 17 U/L COMPREHENSIVE METABOLIC [id number] 00:00:00 Test Item Value Reference Range Interpretation Comments GLUCOSE (test code = 2217) 337 MG/DL BUN (test code = 2208) 49 MG/DL CREATININE (test code = 2214) 3.21 MG/DL eGFR AMER. (test code 17 ML/MIN/1.73 = 69466) eGFR NON- AMER. (test 15 ML/MIN/1.73 code = 86302) CALC BUN/CREAT (test code = 15 RATIO [...] (test code = 2219) 17 U/L HEMOGLOBIN [id number] 00:00:00 Test Item Value Reference Range Interpretation Comments HEMOGLOBIN A1c (test code = 83192) 8.2 % HEMOGLOBIN [id number] 00:00:00 Test Item Value Reference Range Interpretation Comments HEMOGLOBIN A1c (test code = 52974) 8.2 % HEMOGLOBIN [id number] 00:00:00 Test Item Value Reference Range Interpretation Comments HEMOGLOBIN A1c (test code = 22045) 8.2 % [id number] 00:00:00 Test Item Value Reference Range Interpretation Comments TSH, THIRD GENERATION (test code 1.510 UIU/ML = 2821) [id number] 00:00:00 Test Item Value Reference Range Interpretation Comments TSH, THIRD GENERATION (test code 1.510 UIU/ML = 2821) [id number] 00:00:00 Test Item Value Reference Range Interpretation Comments TSH, THIRD GENERATION (test code 1.510 UIU/ML = 2821) COMPREHENSIVE METABOLIC [id number] 00:00:00 Test Item Value Reference Range Interpretation Comments GLUCOSE (test code = 2217) 337 MG/DL BUN (test code = 2208) 49 MG/DL CREATININE (test code = 2214) 3.21 MG/DL eGFR AMER. (test code 17 ML/MIN/1.73 = 58763) eGFR NON- AMER. (test 15 ML/MIN/1.73 code = 93202) CALC BUN/CREAT (test code = 15 RATIO 5) SODIUM (test code = 2231) 137 MEQ/L [...] code = 2219) 17 U/L COMPREHENSIVE METABOLIC [id number] 00:00:00 Test Item Value Reference Range Interpretation Comments GLUCOSE (test code = 2217) 337 MG/DL BUN (test code = 2208) 49 MG/DL CREATININE (test code = 2214) 3.21 MG/DL eGFR AMER. (test code 17 ML/MIN/1.73 = 49047) eGFR NON- AMER. (test 15 ML/MIN/1.73 code = 70689) CALC BUN/CREAT (test code = 15 RATIO [...] code = 2219) 17 U/L COMPREHENSIVE METABOLIC [id number] 00:00:00 Test Item Value Reference Range Interpretation Comments GLUCOSE (test code = 2217) 337 MG/DL BUN (test code = 2208) 49 MG/DL CREATININE (test code = 2214) 3.21 MG/DL eGFR AMER. (test code 17 ML/MIN/1.73 = 01420) eGFR NON- AMER. (test 15 ML/MIN/1.73 code = 20108) CALC BUN/CREAT (test code = 15 RATIO [...] ALKALINE PHOSPHATASE (test 186 U/L code = 220) AST (test code = 2218) 29 U/L ALT (test code = 2219) 17 U/L HEMOGLOBIN [id number] 00:00:00 Test Item Value Reference Range Interpretation Comments HEMOGLOBIN A1c (test code = 03919) 8.2 % HEMOGLOBIN [id number] 00:00:00 Test Item Value Reference Range Interpretation Comments HEMOGLOBIN A1c (test code = 80975) 8.2 % HEMOGLOBIN [id number] 00:00:00 Test Item Value Reference Range Interpretation Comments HEMOGLOBIN A1c (test code = 12972) 8.2 % HEMOGLOBIN [id number] 00:00:00 Test Item Value Reference Range Interpretation Comments HEMOGLOBIN A1c (test code = 65606) 8.2 % [id number] 00:00:00 Test Item Value Reference Range Interpretation Comments TSH, THIRD GENERATION (test code 1.510 UIU/ML = 2821) [id number] 00:00:00 Test Item Value Reference Range Interpretation Comments TSH, THIRD GENERATION (test code 1.510 UIU/ML = 2821) [id number] 00:00:00 Test Item Value Reference Range Interpretation Comments TSH, THIRD GENERATION (test code 1.510 UIU/ML = 2821) HEMOGLOBIN [id number] 00:00:00 Test Item Value Reference Range Interpretation Comments HEMOGLOBIN A1c (test code = 47596) 8.2 % [id number] 00:00:00 Test Item Value Reference Range Interpretation Comments TSH, THIRD GENERATION (test code 1.510 UIU/ML = 2821) [id number] 00:00:00 Test Item Value Reference Range Interpretation Comments TSH, THIRD GENERATION (test code 1.510 UIU/ML = 2821) COMPREHENSIVE METABOLIC [id number] 00:00:00 Test Item Value Reference Range Interpretation Comments GLUCOSE (test code = 2217) 337 MG/DL BUN (test code = 2208) 49 MG/DL CREATININE (test code = 2214) 3.21 MG/DL eGFR AMER. (test code 17 ML/MIN/1.73 = 92169) eGFR NON- AMER. (test 15 ML/MIN/1.73 code = 18329) CALC BUN/CREAT (test code = 15 RATIO [...] code = 2219) 17 U/L COMPREHENSIVE METABOLIC [id number] 00:00:00 Test Item Value Reference Range Interpretation Comments GLUCOSE (test code = 2217) 337 MG/DL BUN (test code = 2208) 49 MG/DL CREATININE (test code = 2214) 3.21 MG/DL eGFR AMER. (test code 17 ML/MIN/1.73 = 50980) eGFR NON- AMER. (test 15 ML/MIN/1.73 code = 34074) CALC BUN/CREAT (test code = 15 RATIO [...] (test code = 2219) 17 U/L HEMOGLOBIN [id number] 00:00:00 Test Item Value Reference Range Interpretation Comments HEMOGLOBIN A1c (test code = 10794) 8.2 % HEMOGLOBIN [id number] 00:00:00 Test Item Value Reference Range Interpretation Comments HEMOGLOBIN A1c (test code = 65954) 8.2 % HEMOGLOBIN [id number] 00:00:00 Test Item Value Reference Range Interpretation Comments HEMOGLOBIN A1c (test code = 79084) 8.2 % [id number] 00:00:00 Test Item Value Reference Range Interpretation Comments TSH, THIRD GENERATION (test code 1.510 UIU/ML = 2821) PAP TEST, THINPREP, [id number] 00:00:00 Test Item Value Reference Range Interpretation Comments SOURCE: (test code = Cervical/Endocervical 8001) SLIDES: (test code = 1 8011) LMP: (test code = SEE NOTE 8021) SPECIMEN ADEQUACY: (NOTE) (test code = 39022) INTERPRETATION: (test NO EPITHELIAL code = 70007) ABNORMALITY SEE BELOW HAND EDGER: MORENO (test code = 8101) YORDAN KAUR(ASCP)IAC LOCATION: (test code (NOTE) = 83775) CPT: (test code = (NOTE) 8140) PAP TEST, THINPREP, [id number] 00:00:00 Test Item Value Reference Range Interpretation Comments SOURCE: (test code = Cervical/Endocervical 8001) SLIDES: (test code = 1 8011) LMP: (test code = SEE NOTE 8021) SPECIMEN ADEQUACY: (NOTE) (test code = 93276) INTERPRETATION: (test NO EPITHELIAL code = 34675) ABNORMALITY SEE BELOW HAND EDGER: MORENO (test code = 8101) VINCENTCT(ASCP)IAC LOCATION: (test code (NOTE) = 70876) CPT: (test code = (NOTE) 8140) HPV HIGH RISK WITH GENOTYPE, [id number] 00:00:00 Test Item Value Reference Range Interpretation Comments HPV HIGH RISK INTERP (test code = NEGATIVE 38651) HPV 16 (test code = 02649) NEGATIVE HPV 18 (test code = 97230) NEGATIVE HPV, HR, OTHER GENOTYPES (test code NEGATIVE = 08010) HPV HIGH RISK WITH GENOTYPE, [id number] 00:00:00 Test Item Value Reference Range Interpretation Comments HPV HIGH RISK INTERP (test code = NEGATIVE 62578) HPV 16 (test code = 81468) NEGATIVE HPV 18 (test code = 02869) NEGATIVE HPV, HR, OTHER GENOTYPES (test code NEGATIVE = 94668) PAP TEST, THINPREP, [id number] 00:00:00 Test Item Value Reference Range Interpretation Comments SOURCE: (test code = Cervical/Endocervical 8001) SLIDES: (test code = 1 8011) LMP: (test code = SEE NOTE 8021) SPECIMEN ADEQUACY: (NOTE) (test code = 07355) INTERPRETATION: (test NO EPITHELIAL code = 53777) ABNORMALITY SEE BELOW HAND EDGER: MORENO (test code = 8101) YORDAN KAUR(ASCP)IAC LOCATION: (test code (NOTE) = 70837) CPT: (test code = (NOTE) 8140) PAP TEST, THINPREP, [id number] 00:00:00 Test Item Value Reference Range Interpretation Comments SOURCE: (test code = Cervical/Endocervical 8001) SLIDES: (test code = 1 8011) LMP: (test code = SEE NOTE 8021) SPECIMEN ADEQUACY: (NOTE) (test code = 82637) INTERPRETATION: (test NO EPITHELIAL code = 24615) ABNORMALITY SEE BELOW HAND EDGER: MORENO (test code = 8101) VINCENTCT(ASCP)IAC LOCATION: (test code (NOTE) = 50540) CPT: (test code = (NOTE) 8140) HPV HIGH RISK WITH GENOTYPE, [id number] 00:00:00 Test Item Value Reference Range Interpretation Comments HPV HIGH RISK INTERP (test code = NEGATIVE 34264) HPV 16 (test code = 01500) NEGATIVE HPV 18 (test code = 02847) NEGATIVE HPV, HR, OTHER GENOTYPES (test code NEGATIVE = 22814) HPV HIGH RISK WITH GENOTYPE, [id number] 00:00:00 Test Item Value Reference Range Interpretation Comments HPV HIGH RISK INTERP (test code = NEGATIVE 69745) HPV 16 (test code = 98786) NEGATIVE HPV 18 (test code = 73138) NEGATIVE HPV, HR, OTHER GENOTYPES (test code NEGATIVE = 02986) PAP TEST, THINPREP, [id number] 00:00:00 Test Item Value Reference Range Interpretation Comments SOURCE: (test code = Cervical/Endocervical 8001) SLIDES: (test code = 1 8011) LMP: (test code = SEE NOTE 8021) SPECIMEN ADEQUACY: (NOTE) (test code = 90548) INTERPRETATION: (test NO EPITHELIAL code = 45983) ABNORMALITY SEE BELOW HAND EDGER: MORENO (test code = 8101) YORDAN KAUR(ASCP)IAC LOCATION: (test code (NOTE) = 59175) CPT: (test code = (NOTE) 8140) PAP TEST, THINPREP, [id number] 00:00:00 Test Item Value Reference Range Interpretation Comments SOURCE: (test code = Cervical/Endocervical 8001) SLIDES: (test code = 1 8011) LMP: (test code = SEE NOTE 8021) SPECIMEN ADEQUACY: (NOTE) (test code = 19566) INTERPRETATION: (test NO EPITHELIAL code = 80919) ABNORMALITY SEE BELOW HAND EDGER: MORENO (test code = 8101) YORDAN KAUR(ASCP)IAC LOCATION: (test code (NOTE) = 74009) CPT: (test code = (NOTE) 8140) HPV HIGH RISK WITH GENOTYPE, [id number] 00:00:00 Test Item Value Reference Range Interpretation Comments HPV HIGH RISK INTERP (test code = NEGATIVE 92900) HPV 16 (test code = 49746) NEGATIVE HPV 18 (test code = 55647) NEGATIVE HPV, HR, OTHER GENOTYPES (test code NEGATIVE = 42718) HPV HIGH RISK WITH GENOTYPE, [id number] 00:00:00 Test Item Value Reference Range Interpretation Comments HPV HIGH RISK INTERP (test code = NEGATIVE 73093) HPV 16 (test code = 19016) NEGATIVE HPV 18 (test code = 35825) NEGATIVE HPV, HR, OTHER GENOTYPES (test code NEGATIVE = 86765) PAP TEST, THINPREP, [id number] 00:00:00 Test Item Value Reference Range Interpretation Comments SOURCE: (test code = Cervical/Endocervical 8001) SLIDES: (test code = 1 8011) LMP: (test code = SEE NOTE 8021) SPECIMEN ADEQUACY: (NOTE) (test code = 15252) INTERPRETATION: (test NO EPITHELIAL code = 63582) ABNORMALITY SEE BELOW HAND EDGER: MORENO (test code = 8101) PARCHER,CT(ASCP)IAC LOCATION: (test code (NOTE) = 15396) CPT: (test code = (NOTE) 8140) PAP TEST, THINPREP, [id number] 00:00:00 Test Item Value Reference Range Interpretation Comments SOURCE: (test code = Cervical/Endocervical 8001) SLIDES: (test code = 1 8011) LMP: (test code = SEE NOTE 8021) SPECIMEN ADEQUACY: (NOTE) (test code = 23708) INTERPRETATION: (test NO EPITHELIAL code = 66179) ABNORMALITY SEE BELOW HAND EDGER: MORENO (test code = 8101) PARCHER,CT(ASCP)IAC LOCATION: (test code (NOTE) = 90830) CPT: (test code = (NOTE) 8140) PAP TEST, THINPREP, [id number] 00:00:00 Test Item Value Reference Range Interpretation Comments SOURCE: (test code = Cervical/Endocervical 8001) SLIDES: (test code = 1 8011) LMP: (test code = SEE NOTE 8021) SPECIMEN ADEQUACY: (NOTE) (test code = 17347) INTERPRETATION: (test NO EPITHELIAL code = 37372) ABNORMALITY SEE BELOW HAND EDGER: MORENO (test code = 8101) PARCHER,CT(ASCP)IAC LOCATION: (test code (NOTE) = 71315) CPT: (test code = (NOTE) 8140) HPV HIGH RISK WITH GENOTYPE, [id number] 00:00:00 Test Item Value Reference Range Interpretation Comments HPV HIGH RISK INTERP (test code = NEGATIVE 90910) HPV 16 (test code = 52110) NEGATIVE HPV 18 (test code = 43155) NEGATIVE HPV, HR, OTHER GENOTYPES (test code NEGATIVE = 68907) HPV HIGH RISK WITH GENOTYPE, [id number] 00:00:00 Test Item Value Reference Range Interpretation Comments HPV HIGH RISK INTERP (test code = NEGATIVE 50012) HPV 16 (test code = 55709) NEGATIVE HPV 18 (test code = 62168) NEGATIVE HPV, HR, OTHER GENOTYPES (test code NEGATIVE = 41589) HPV HIGH RISK WITH GENOTYPE, [id number] 00:00:00 Test Item Value Reference Range Interpretation Comments HPV HIGH RISK INTERP (test code = NEGATIVE 99026) HPV 16 (test code = 27511) NEGATIVE HPV 18 (test code = 04599) NEGATIVE HPV, HR, OTHER GENOTYPES (test code NEGATIVE = 47522) PAP TEST, THINPREP, [id number] 00:00:00 Test Item Value Reference Range Interpretation Comments SOURCE: (test code = Cervical/Endocervical 8001) SLIDES: (test code = 1 8011) LMP: (test code = SEE NOTE 8021) SPECIMEN ADEQUACY: (NOTE) (test code = 58869) INTERPRETATION: (test NO EPITHELIAL code = 13522) ABNORMALITY SEE BELOW HAND EDGER: MORENO (test code = 8101) PARCHER,CT(ASCP)IAC LOCATION: (test code (NOTE) = 35286) CPT: (test code = (NOTE) 8140) PAP TEST, THINPREP, [id number] 00:00:00 Test Item Value Reference Range Interpretation Comments SOURCE: (test code = Cervical/Endocervical 8001) SLIDES: (test code = 1 8011) LMP: (test code = SEE NOTE 8021) SPECIMEN ADEQUACY: (NOTE) (test code = 43023) INTERPRETATION: (test NO EPITHELIAL code = 46179) ABNORMALITY SEE BELOW HAND EDGER: MORENO (test code = 8101) PARCHER,CT(ASCP)IAC LOCATION: (test code (NOTE) = 23186) CPT: (test code = (NOTE) 8140) HPV HIGH RISK WITH GENOTYPE, [id number] 00:00:00 Test Item Value Reference Range Interpretation Comments HPV HIGH RISK INTERP (test code = NEGATIVE 57324) HPV 16 (test code = 54955) NEGATIVE HPV 18 (test code = 39439) NEGATIVE HPV, HR, OTHER GENOTYPES (test code NEGATIVE = 05301) HPV HIGH RISK WITH GENOTYPE, [id number] 00:00:00 Test Item Value Reference Range Interpretation Comments HPV HIGH RISK INTERP (test code = NEGATIVE 96824) HPV 16 (test code = 36074) NEGATIVE HPV 18 (test code = 08472) NEGATIVE HPV, HR, OTHER GENOTYPES (test code NEGATIVE = 85959) PROTEIN/CREATININE RATIO, [id number] 00:00:00 Test Item Value Reference Range Interpretation Comments PROTEIN, URINE, CONC. (test 682 MG/DL code = 2104) CREATININE, URINE, CONC. (test 112.6 MG/DL code = 2072) CALC PROTEIN/CREATININE (test 6057 MG/GCREAT code = 2158) PROTEIN/CREATININE RATIO, [id number] 00:00:00 Test Item Value Reference Range Interpretation Comments PROTEIN, URINE, CONC. (test 682 MG/DL code = 2104) CREATININE, URINE, CONC. (test 112.6 MG/DL code = 2072) CALC PROTEIN/CREATININE (test 6057 MG/GCREAT code = 2158) VITAMIN D, 25 [id number] 00:00:00 Test Item Value Reference Range Interpretation Comments VITAMIN D, 25 OH (test code = 4958) 19 NG/ML VITAMIN D, 25 [id number] 00:00:00 Test Item Value Reference Range Interpretation Comments VITAMIN D, 25 OH (test code = 4958) 19 NG/ML BASIC METABOLIC [id number] 00:00:00 Test Item Value Reference Range Interpretation Comments GLUCOSE (test code = 2217) 279 MG/DL BUN (test code = 2208) 43 MG/DL CREATININE (test code = 2214) 2.63 MG/DL eGFR AMER. (test code 22 ML/MIN/1.73 = 99443) eGFR NON- AMER. (test 19 ML/MIN/1.73 code = 86849) SODIUM (test code = 2231) 140 MEQ/L POTASSIUM (test code = 2228) 5.1 MEQ/L CHLORIDE (test code = 2215) 101 MEQ/L CARBON DIOXIDE (test code = 26 MEQ/L 2206) CALCIUM (test code = 2209) 8.9 MG/DL BASIC METABOLIC [id number] 00:00:00 Test Item Value Reference Range Interpretation Comments GLUCOSE (test code = 2217) 279 MG/DL BUN (test code = 2208) 43 MG/DL CREATININE (test code = 2214) 2.63 MG/DL eGFR AMER. (test code 22 ML/MIN/1.73 = 95219) eGFR NON- AMER. (test 19 ML/MIN/1.73 code = 02173) SODIUM (test code = 2231) 140 MEQ/L POTASSIUM (test code = 2228) 5.1 MEQ/L CHLORIDE (test code = 2215) 101 MEQ/L CARBON DIOXIDE (test code = 26 MEQ/L 2206) CALCIUM (test code = 2209) 8.9 MG/DL INTACT [id number] 00:00:00 Test Item Value Reference Range Interpretation Comments INTACT PTH (test code = 5005) 126 PG/ML INTACT [id number] 00:00:00 Test Item Value Reference Range Interpretation Comments INTACT PTH (test code = 5005) 126 PG/ML INTACT [id number] 00:00:00 Test Item Value Reference Range Interpretation Comments INTACT PTH (test code = 5005) 126 PG/ML PROTEIN/CREATININE RATIO, [id number] 00:00:00 Test Item Value Reference Range Interpretation Comments PROTEIN, URINE, CONC. (test 682 MG/DL code = 2104) CREATININE, URINE, CONC. (test 112.6 MG/DL code = 2072) CALC PROTEIN/CREATININE (test 6057 MG/GCREAT code = 2158) PROTEIN/CREATININE RATIO, [id number] 00:00:00 Test Item Value Reference Range Interpretation Comments PROTEIN, URINE, CONC. (test 682 MG/DL code = 2104) CREATININE, URINE, CONC. (test 112.6 MG/DL code = 2072) CALC PROTEIN/CREATININE (test 6057 MG/GCREAT code = 2158) VITAMIN D, 25 [id number] 00:00:00 Test Item Value Reference Range Interpretation Comments VITAMIN D, 25 OH (test code = 4958) 19 NG/ML VITAMIN D, 25 [id number] 00:00:00 Test Item Value Reference Range Interpretation Comments VITAMIN D, 25 OH (test code = 4958) 19 NG/ML BASIC METABOLIC [id number] 00:00:00 Test Item Value Reference Range Interpretation Comments GLUCOSE (test code = 2217) 279 MG/DL BUN (test code = 2208) 43 MG/DL CREATININE (test code = 2214) 2.63 MG/DL eGFR AMER. (test code 22 ML/MIN/1.73 = 96663) eGFR NON- AMER. (test 19 ML/MIN/1.73 code = 00314) SODIUM (test code = 2231) 140 MEQ/L POTASSIUM (test code = 2228) 5.1 MEQ/L CHLORIDE (test code = 2215) 101 MEQ/L CARBON DIOXIDE (test code = 26 MEQ/L 2206) CALCIUM (test code = 2209) 8.9 MG/DL BASIC METABOLIC [id number] 00:00:00 Test Item Value Reference Range Interpretation Comments GLUCOSE (test code = 2217) 279 MG/DL BUN (test code = 2208) 43 MG/DL CREATININE (test code = 2214) 2.63 MG/DL eGFR AMER. (test code 22 ML/MIN/1.73 = 18057) eGFR NON- AMER. (test 19 ML/MIN/1.73 code = 80668) SODIUM (test code = 2231) 140 MEQ/L POTASSIUM (test code = 2228) 5.1 MEQ/L CHLORIDE (test code = 2215) 101 MEQ/L CARBON DIOXIDE (test code = 26 MEQ/L 2206) CALCIUM (test code = 2209) 8.9 MG/DL INTACT [id number] 00:00:00 Test Item Value Reference Range Interpretation Comments INTACT PTH (test code = 5005) 126 PG/ML INTACT [id number] 00:00:00 Test Item Value Reference Range Interpretation Comments INTACT PTH (test code = 5005) 126 PG/ML INTACT [id number] 00:00:00 Test Item Value Reference Range Interpretation Comments INTACT PTH (test code = 5005) 126 PG/ML PROTEIN/CREATININE RATIO, [id number] 00:00:00 Test Item Value Reference Range Interpretation Comments PROTEIN, URINE, CONC. (test 682 MG/DL code = 2104) CREATININE, URINE, CONC. (test 112.6 MG/DL code = 2072) CALC PROTEIN/CREATININE (test 6057 MG/GCREAT code = 2158) PROTEIN/CREATININE RATIO, [id number] 00:00:00 Test Item Value Reference Range Interpretation Comments PROTEIN, URINE, CONC. (test 682 MG/DL code = 2104) CREATININE, URINE, CONC. (test 112.6 MG/DL code = 2072) CALC PROTEIN/CREATININE (test 6057 MG/GCREAT code = 2158) VITAMIN D, 25 [id number] 00:00:00 Test Item Value Reference Range Interpretation Comments VITAMIN D, 25 OH (test code = 4958) 19 NG/ML VITAMIN D, 25 [id number] 00:00:00 Test Item Value Reference Range Interpretation Comments VITAMIN D, 25 OH (test code = 4958) 19 NG/ML BASIC METABOLIC [id number] 00:00:00 Test Item Value Reference Range Interpretation Comments GLUCOSE (test code = 2217) 279 MG/DL BUN (test code = 2208) 43 MG/DL CREATININE (test code = 2214) 2.63 MG/DL eGFR AMER. (test code 22 ML/MIN/1.73 = 56580) eGFR NON- AMER. (test 19 ML/MIN/1.73 code = 40136) SODIUM (test code = 2231) 140 MEQ/L POTASSIUM (test code = 2228) 5.1 MEQ/L CHLORIDE (test code = 2215) 101 MEQ/L CARBON DIOXIDE (test code = 26 MEQ/L 2206) CALCIUM (test code = 2209) 8.9 MG/DL BASIC METABOLIC [id number] 00:00:00 Test Item Value Reference Range Interpretation Comments GLUCOSE (test code = 2217) 279 MG/DL BUN (test code = 2208) 43 MG/DL CREATININE (test code = 2214) 2.63 MG/DL eGFR AMER. (test code 22 ML/MIN/1.73 = 51172) eGFR NON- AMER. (test 19 ML/MIN/1.73 code = 10636) SODIUM (test code = 2231) 140 MEQ/L POTASSIUM (test code = 2228) 5.1 MEQ/L CHLORIDE (test code = 2215) 101 MEQ/L CARBON DIOXIDE (test code = 26 MEQ/L 2206) CALCIUM (test code = 2209) 8.9 MG/DL INTACT [id number] 00:00:00 Test Item Value Reference Range Interpretation Comments INTACT PTH (test code = 5005) 126 PG/ML INTACT [id number] 00:00:00 Test Item Value Reference Range Interpretation Comments INTACT PTH (test code = 5005) 126 PG/ML INTACT [id number] 00:00:00 Test Item Value Reference Range Interpretation Comments INTACT PTH (test code = 5005) 126 PG/ML PROTEIN/CREATININE RATIO, [id number] 00:00:00 Test Item Value Reference Range Interpretation Comments PROTEIN, URINE, CONC. (test 682 MG/DL code = 2104) CREATININE, URINE, CONC. (test 112.6 MG/DL code = 2072) CALC PROTEIN/CREATININE (test 6057 MG/GCREAT code = 2158) PROTEIN/CREATININE RATIO, [id number] 00:00:00 Test Item Value Reference Range Interpretation Comments PROTEIN, URINE, CONC. (test 682 MG/DL code = 2104) CREATININE, URINE, CONC. (test 112.6 MG/DL code = 2072) CALC PROTEIN/CREATININE (test 6057 MG/GCREAT code = 2158) VITAMIN D, 25 [id number] 00:00:00 Test Item Value Reference Range Interpretation Comments VITAMIN D, 25 OH (test code = 4958) 19 NG/ML VITAMIN D, 25 [id number] 00:00:00 Test Item Value Reference Range Interpretation Comments VITAMIN D, 25 OH (test code = 4958) 19 NG/ML BASIC METABOLIC [id number] 00:00:00 Test Item Value Reference Range Interpretation Comments GLUCOSE (test code = 2217) 279 MG/DL BUN (test code = 2208) 43 MG/DL CREATININE (test code = 2214) 2.63 MG/DL eGFR AMER. (test code 22 ML/MIN/1.73 = 41609) eGFR NON- AMER. (test 19 ML/MIN/1.73 code = 20161) SODIUM (test code = 2231) 140 MEQ/L POTASSIUM (test code = 2228) 5.1 MEQ/L CHLORIDE (test code = 2215) 101 MEQ/L CARBON DIOXIDE (test code = 26 MEQ/L 2206) CALCIUM (test code = 2209) 8.9 MG/DL BASIC METABOLIC [id number] 00:00:00 Test Item Value Reference Range Interpretation Comments GLUCOSE (test code = 2217) 279 MG/DL BUN (test code = 2208) 43 MG/DL CREATININE (test code = 2214) 2.63 MG/DL eGFR AMER. (test code 22 ML/MIN/1.73 = 42399) eGFR NON- AMER. (test 19 ML/MIN/1.73 code = 63083) SODIUM (test code = 2231) 140 MEQ/L POTASSIUM (test code = 2228) 5.1 MEQ/L CHLORIDE (test code = 2215) 101 MEQ/L CARBON DIOXIDE (test code = 26 MEQ/L 2206) CALCIUM (test code = 2209) 8.9 MG/DL INTACT [id number] 00:00:00 Test Item Value Reference Range Interpretation Comments INTACT PTH (test code = 5005) 126 PG/ML BASIC METABOLIC [id number] 00:00:00 Test Item Value Reference Range Interpretation Comments GLUCOSE (test code = 2217) 279 MG/DL BUN (test code = 2208) 43 MG/DL CREATININE (test code = 2214) 2.63 MG/DL eGFR AMER. (test code 22 ML/MIN/1.73 = 54929) eGFR NON- AMER. (test 19 ML/MIN/1.73 code = 60973) SODIUM (test code = 2231) 140 MEQ/L POTASSIUM (test code = 2228) 5.1 MEQ/L CHLORIDE (test code = 2215) 101 MEQ/L CARBON DIOXIDE (test code = 26 MEQ/L 2206) CALCIUM (test code = 2209) 8.9 MG/DL INTACT [id number] 00:00:00 Test Item Value Reference Range Interpretation Comments INTACT PTH (test code = 5005) 126 PG/ML INTACT [id number] 00:00:00 Test Item Value Reference Range Interpretation Comments INTACT PTH (test code = 5005) 126 PG/ML INTACT [id number] 00:00:00 Test Item Value Reference Range Interpretation Comments INTACT PTH (test code = 5005) 126 PG/ML PROTEIN/CREATININE RATIO, [id number] 00:00:00 Test Item Value Reference Range Interpretation Comments PROTEIN, URINE, CONC. (test 682 MG/DL code = 2104) CREATININE, URINE, CONC. (test 112.6 MG/DL code = 2072) CALC PROTEIN/CREATININE (test 6057 MG/GCREAT code = 2158) PROTEIN/CREATININE RATIO, [id number] 00:00:00 Test Item Value Reference Range Interpretation Comments PROTEIN, URINE, CONC. (test 682 MG/DL code = 2104) CREATININE, URINE, CONC. (test 112.6 MG/DL code = 2072) CALC PROTEIN/CREATININE (test 6057 MG/GCREAT code = 2158) VITAMIN D, 25 [id number] 00:00:00 Test Item Value Reference Range Interpretation Comments VITAMIN D, 25 OH (test code = 4958) 19 NG/ML VITAMIN D, 25 [id number] 00:00:00 Test Item Value Reference Range Interpretation Comments VITAMIN D, 25 OH (test code = 4958) 19 NG/ML INTACT [id number] 00:00:00 Test Item Value Reference Range Interpretation Comments INTACT PTH (test code = 5005) 126 PG/ML PROTEIN/CREATININE RATIO, [id number] 00:00:00 Test Item Value Reference Range Interpretation Comments PROTEIN, URINE, CONC. (test 682 MG/DL code = 2104) CREATININE, URINE, CONC. (test 112.6 MG/DL code = 2072) CALC PROTEIN/CREATININE (test 6057 MG/GCREAT code = 2158) VITAMIN D, 25 [id number] 00:00:00 Test Item Value Reference Range Interpretation Comments VITAMIN D, 25 OH (test code = 4958) 19 NG/ML BASIC METABOLIC [id number] 00:00:00 Test Item Value Reference Range Interpretation Comments GLUCOSE (test code = 2217) 279 MG/DL BUN (test code = 2208) 43 MG/DL CREATININE (test code = 2214) 2.63 MG/DL eGFR AMER. (test code 22 ML/MIN/1.73 = 25866) eGFR NON- AMER. (test 19 ML/MIN/1.73 code = 57266) SODIUM (test code = 2231) 140 MEQ/L POTASSIUM (test code = 2228) 5.1 MEQ/L CHLORIDE (test code = 2215) 101 MEQ/L CARBON DIOXIDE (test code = 26 MEQ/L 220) CALCIUM (test code = 2209) 8.9 MG/DL BASIC METABOLIC [id number] 00:00:00 Test Item Value Reference Range Interpretation Comments GLUCOSE (test code = 2217) 279 MG/DL BUN (test code = 2208) 43 MG/DL CREATININE (test code = 2214) 2.63 MG/DL eGFR AMER. (test code 22 ML/MIN/1.73 = 97613) eGFR NON- AMER. (test 19 ML/MIN/1.73 code = 54267) SODIUM (test code = 2231) 140 MEQ/L POTASSIUM (test code = 2228) 5.1 MEQ/L CHLORIDE (test code = 2215) 101 MEQ/L CARBON DIOXIDE (test code = 26 MEQ/L 2206) CALCIUM (test code = 2209) 8.9 MG/DL INTACT [id number] 00:00:00 Test Item Value Reference Range Interpretation Comments INTACT PTH (test code = 5005) 126 PG/ML INTACT [id number] 00:00:00 Test Item Value Reference Range Interpretation Comments INTACT PTH (test code = 5005) 126 PG/ML INTACT [id number] 00:00:00 Test Item Value Reference Range Interpretation Comments INTACT PTH (test code = 5005) 126 PG/ML [id number] 00:00:00 Test Item Value Reference Range Interpretation Comments TSH, THIRD GENERATION (test code 1.300 UIU/ML = 2821) [id number] 00:00:00 Test Item Value Reference Range Interpretation Comments TSH, THIRD GENERATION (test code 1.300 UIU/ML = 2821) [id number] 00:00:00 Test Item Value Reference Range Interpretation Comments TSH, THIRD GENERATION (test code 1.300 UIU/ML = 2821) MICROALBUMIN/CREATININE, RANDOM AND [id number] 00:00:00 Test Item Value Reference Range Interpretation Comments CREATININE, URINE, CONC. (test 33.9 MG/DL code = 2072) ALBUMIN, URINE, RANDOM (test code 196.7 MG/DL = 25900) CALC ALBUMIN/CREAT, RND (test 5802 MG/G code = 74369) MICROALBUMIN/CREATININE, RANDOM AND [id number] 00:00:00 Test Item Value Reference Range Interpretation Comments CREATININE, URINE, CONC. (test 33.9 MG/DL code = 2072) ALBUMIN, URINE, RANDOM (test code 196.7 MG/DL = 93283) CALC ALBUMIN/CREAT, RND (test 5802 MG/G code = 24803) HEMOGLOBIN [id number] 00:00:00 Test Item Value Reference Range Interpretation Comments HEMOGLOBIN A1c (test code = 76042) 9.5 % HEMOGLOBIN [id number] 00:00:00 Test Item Value Reference Range Interpretation Comments HEMOGLOBIN A1c (test code = 23583) 9.5 % HEMOGLOBIN [id number] 00:00:00 Test Item Value Reference Range Interpretation Comments HEMOGLOBIN A1c (test code = 13936) 9.5 % LIPID [id number] 00:00:00 Test Item Value Reference Range Interpretation Comments CHOLESTEROL (test code = 2210) 166 MG/DL TRIGLYCERIDES (test code = 2232) 77 MG/DL HDL CHOLESTEROL (test code = 2220) 71 MG/DL CALC LDL CHOL (test code = 2237) 80 MG/DL RISK RATIO LDL/HDL (test code = 1.12 RATIO 2238) LIPID [id number] 00:00:00 Test Item Value Reference Range Interpretation Comments CHOLESTEROL (test code = 2210) 166 MG/DL TRIGLYCERIDES (test code = 2232) 77 MG/DL HDL CHOLESTEROL (test code = 2220) 71 MG/DL CALC LDL CHOL (test code = 2237) 80 MG/DL RISK RATIO LDL/HDL (test code = 1.12 RATIO 2238) COMPREHENSIVE METABOLIC [id number] 00:00:00 Test Item Value Reference Range Interpretation Comments GLUCOSE (test code = 2217) 241 MG/DL BUN (test code = 2208) 42 MG/DL CREATININE (test code = 2214) 2.62 MG/DL eGFR AMER. (test code 22 ML/MIN/1.73 = 88054) eGFR NON- AMER. (test 19 ML/MIN/1.73 code = 92774) CALC BUN/CREAT (test code = 16 RATIO [...] code = 2219) 10 U/L COMPREHENSIVE METABOLIC [id number] 00:00:00 Test Item Value Reference Range Interpretation Comments GLUCOSE (test code = 2217) 241 MG/DL BUN (test code = 2208) 42 MG/DL CREATININE (test code = 2214) 2.62 MG/DL eGFR AMER. (test code 22 ML/MIN/1.73 = 97882) eGFR NON- AMER. (test 19 ML/MIN/1.73 code = 40951) CALC BUN/CREAT (test code = 16 RATIO [...] ALT (test code = 2219) 10 U/L [id number] 00:00:00 Test Item Value Reference Range Interpretation Comments TSH, THIRD GENERATION (test code 1.300 UIU/ML = 2821) [id number] 00:00:00 Test Item Value Reference Range Interpretation Comments TSH, THIRD GENERATION (test code 1.300 UIU/ML = 2821) [id number] 00:00:00 Test Item Value Reference Range Interpretation Comments TSH, THIRD GENERATION (test code 1.300 UIU/ML = 2821) MICROALBUMIN/CREATININE, RANDOM AND [id number] 00:00:00 Test Item Value Reference Range Interpretation Comments CREATININE, URINE, CONC. (test 33.9 MG/DL code = 2072) ALBUMIN, URINE, RANDOM (test code 196.7 MG/DL = 01830) CALC ALBUMIN/CREAT, RND (test 5802 MG/G code = 31265) MICROALBUMIN/CREATININE, RANDOM AND [id number] 00:00:00 Test Item Value Reference Range Interpretation Comments CREATININE, URINE, CONC. (test 33.9 MG/DL code = 2072) ALBUMIN, URINE, RANDOM (test code 196.7 MG/DL = 14879) CALC ALBUMIN/CREAT, RND (test 5802 MG/G code = 49265) HEMOGLOBIN [id number] 00:00:00 Test Item Value Reference Range Interpretation Comments HEMOGLOBIN A1c (test code = 45452) 9.5 % HEMOGLOBIN [id number] 00:00:00 Test Item Value Reference Range Interpretation Comments HEMOGLOBIN A1c (test code = 30323) 9.5 % HEMOGLOBIN [id number] 00:00:00 Test Item Value Reference Range Interpretation Comments HEMOGLOBIN A1c (test code = 65518) 9.5 % LIPID [id number] 00:00:00 Test Item Value Reference Range Interpretation Comments CHOLESTEROL (test code = 2210) 166 MG/DL TRIGLYCERIDES (test code = 2232) 77 MG/DL HDL CHOLESTEROL (test code = 2220) 71 MG/DL CALC LDL CHOL (test code = 2237) 80 MG/DL RISK RATIO LDL/HDL (test code = 1.12 RATIO 2238) LIPID [id number] 00:00:00 Test Item Value Reference Range Interpretation Comments CHOLESTEROL (test code = 2210) 166 MG/DL TRIGLYCERIDES (test code = 2232) 77 MG/DL HDL CHOLESTEROL (test code = 2220) 71 MG/DL CALC LDL CHOL (test code = 2237) 80 MG/DL RISK RATIO LDL/HDL (test code = 1.12 RATIO 2238) COMPREHENSIVE METABOLIC [id number] 00:00:00 Test Item Value Reference Range Interpretation Comments GLUCOSE (test code = 2217) 241 MG/DL BUN (test code = 2208) 42 MG/DL CREATININE (test code = 2214) 2.62 MG/DL eGFR AMER. (test code 22 ML/MIN/1.73 = 06062) eGFR NON- AMER. (test 19 ML/MIN/1.73 code = 55576) CALC BUN/CREAT (test code = 16 RATIO [...] code = 2219) 10 U/L COMPREHENSIVE METABOLIC [id number] 00:00:00 Test Item Value Reference Range Interpretation Comments GLUCOSE (test code = 2217) 241 MG/DL BUN (test code = 2208) 42 MG/DL CREATININE (test code = 2214) 2.62 MG/DL eGFR AMER. (test code 22 ML/MIN/1.73 = 81959) eGFR NON- AMER. (test 19 ML/MIN/1.73 code = 21766) CALC BUN/CREAT (test code = 16 RATIO [...] ALT (test code = 2219) 10 U/L [id number] 00:00:00 Test Item Value Reference Range Interpretation Comments TSH, THIRD GENERATION (test code 1.300 UIU/ML = 2821) [id number] 00:00:00 Test Item Value Reference Range Interpretation Comments TSH, THIRD GENERATION (test code 1.300 UIU/ML = 2821) [id number] 00:00:00 Test Item Value Reference Range Interpretation Comments TSH, THIRD GENERATION (test code 1.300 UIU/ML = 2821) MICROALBUMIN/CREATININE, RANDOM AND [id number] 00:00:00 Test Item Value Reference Range Interpretation Comments CREATININE, URINE, CONC. (test 33.9 MG/DL code = 2072) ALBUMIN, URINE, RANDOM (test code 196.7 MG/DL = 50966) CALC ALBUMIN/CREAT, RND (test 5802 MG/G code = 85866) MICROALBUMIN/CREATININE, RANDOM AND [id number] 00:00:00 Test Item Value Reference Range Interpretation Comments CREATININE, URINE, CONC. (test 33.9 MG/DL code = 2072) ALBUMIN, URINE, RANDOM (test code 196.7 MG/DL = 06049) CALC ALBUMIN/CREAT, RND (test 5802 MG/G code = 49344) HEMOGLOBIN [id number] 00:00:00 Test Item Value Reference Range Interpretation Comments HEMOGLOBIN A1c (test code = 45541) 9.5 % HEMOGLOBIN [id number] 00:00:00 Test Item Value Reference Range Interpretation Comments HEMOGLOBIN A1c (test code = 97898) 9.5 % HEMOGLOBIN [id number] 00:00:00 Test Item Value Reference Range Interpretation Comments HEMOGLOBIN A1c (test code = 32859) 9.5 % LIPID [id number] 00:00:00 Test Item Value Reference Range Interpretation Comments CHOLESTEROL (test code = 2210) 166 MG/DL TRIGLYCERIDES (test code = 2232) 77 MG/DL HDL CHOLESTEROL (test code = 2220) 71 MG/DL CALC LDL CHOL (test code = 2237) 80 MG/DL RISK RATIO LDL/HDL (test code = 1.12 RATIO 2238) LIPID [id number] 00:00:00 Test Item Value Reference Range Interpretation Comments CHOLESTEROL (test code = 2210) 166 MG/DL TRIGLYCERIDES (test code = 2232) 77 MG/DL HDL CHOLESTEROL (test code = 2220) 71 MG/DL CALC LDL CHOL (test code = 2237) 80 MG/DL RISK RATIO LDL/HDL (test code = 1.12 RATIO 2238) COMPREHENSIVE METABOLIC [id number] 00:00:00 Test Item Value Reference Range Interpretation Comments GLUCOSE (test code = 2217) 241 MG/DL BUN (test code = 2208) 42 MG/DL CREATININE (test code = 2214) 2.62 MG/DL eGFR AMER. (test code 22 ML/MIN/1.73 = 54062) eGFR NON- AMER. (test 19 ML/MIN/1.73 code = 09620) CALC BUN/CREAT (test code = 16 RATIO [...] code = 2219) 10 U/L COMPREHENSIVE METABOLIC [id number] 00:00:00 Test Item Value Reference Range Interpretation Comments GLUCOSE (test code = 2217) 241 MG/DL BUN (test code = 2208) 42 MG/DL CREATININE (test code = 2214) 2.62 MG/DL eGFR AMER. (test code 22 ML/MIN/1.73 = 74321) eGFR NON- AMER. (test 19 ML/MIN/1.73 code = 84547) CALC BUN/CREAT (test code = 16 RATIO [...] ALT (test code = 2219) 10 U/L [id number] 00:00:00 Test Item Value Reference Range Interpretation Comments TSH, THIRD GENERATION (test code 1.300 UIU/ML = 2821) [id number] 00:00:00 Test Item Value Reference Range Interpretation Comments TSH, THIRD GENERATION (test code 1.300 UIU/ML = 2821) [id number] 00:00:00 Test Item Value Reference Range Interpretation Comments TSH, THIRD GENERATION (test code 1.300 UIU/ML = 2821) MICROALBUMIN/CREATININE, RANDOM AND [id number] 00:00:00 Test Item Value Reference Range Interpretation Comments CREATININE, URINE, CONC. (test 33.9 MG/DL code = 2072) ALBUMIN, URINE, RANDOM (test code 196.7 MG/DL = 36519) CALC ALBUMIN/CREAT, RND (test 5802 MG/G code = 17166) MICROALBUMIN/CREATININE, RANDOM AND [id number] 00:00:00 Test Item Value Reference Range Interpretation Comments CREATININE, URINE, CONC. (test 33.9 MG/DL code = 2072) ALBUMIN, URINE, RANDOM (test code 196.7 MG/DL = 31447) CALC ALBUMIN/CREAT, RND (test 5802 MG/G code = 11714) HEMOGLOBIN [id number] 00:00:00 Test Item Value Reference Range Interpretation Comments HEMOGLOBIN A1c (test code = 83936) 9.5 % HEMOGLOBIN [id number] 00:00:00 Test Item Value Reference Range Interpretation Comments HEMOGLOBIN A1c (test code = 99612) 9.5 % HEMOGLOBIN [id number] 00:00:00 Test Item Value Reference Range Interpretation Comments HEMOGLOBIN A1c (test code = 35136) 9.5 % LIPID [id number] 00:00:00 Test Item Value Reference Range Interpretation Comments CHOLESTEROL (test code = 2210) 166 MG/DL TRIGLYCERIDES (test code = 2232) 77 MG/DL HDL CHOLESTEROL (test code = 2220) 71 MG/DL CALC LDL CHOL (test code = 2237) 80 MG/DL RISK RATIO LDL/HDL (test code = 1.12 RATIO 2238) HEMOGLOBIN [id number] 00:00:00 Test Item Value Reference Range Interpretation Comments HEMOGLOBIN A1c (test code = 30806) 9.5 % HEMOGLOBIN [id number] 00:00:00 Test Item Value Reference Range Interpretation Comments HEMOGLOBIN A1c (test code = 25140) 9.5 % LIPID [id number] 00:00:00 Test Item Value Reference Range Interpretation Comments CHOLESTEROL (test code = 2210) 166 MG/DL TRIGLYCERIDES (test code = 2232) 77 MG/DL HDL CHOLESTEROL (test code = 2220) 71 MG/DL CALC LDL CHOL (test code = 2237) 80 MG/DL RISK RATIO LDL/HDL (test code = 1.12 RATIO 2238) LIPID [id number] 00:00:00 Test Item Value Reference Range Interpretation Comments CHOLESTEROL (test code = 2210) 166 MG/DL TRIGLYCERIDES (test code = 2232) 77 MG/DL HDL CHOLESTEROL (test code = 2220) 71 MG/DL CALC LDL CHOL (test code = 2237) 80 MG/DL RISK RATIO LDL/HDL (test code = 1.12 RATIO 2238) COMPREHENSIVE METABOLIC [id number] 00:00:00 Test Item Value Reference Range Interpretation Comments GLUCOSE (test code = 2217) 241 MG/DL BUN (test code = 2208) 42 MG/DL CREATININE (test code = 2214) 2.62 MG/DL eGFR AMER. (test code 22 ML/MIN/1.73 = 15083) eGFR NON- AMER. (test 19 ML/MIN/1.73 code = 55051) CALC BUN/CREAT (test code = 16 RATIO [...] code = 2219) 10 U/L COMPREHENSIVE METABOLIC [id number] 00:00:00 Test Item Value Reference Range Interpretation Comments GLUCOSE (test code = 2217) 241 MG/DL BUN (test code = 2208) 42 MG/DL CREATININE (test code = 2214) 2.62 MG/DL eGFR AMER. (test code 22 ML/MIN/1.73 = 83405) eGFR NON- AMER. (test 19 ML/MIN/1.73 code = 45218) CALC BUN/CREAT (test code = 16 RATIO 2235) SODIUM (test code = 2231) 137 MEQ/L POTASSIUM (test code = 2228) 4.7 MEQ/L CHLORIDE (test code = 2215) 98 MEQ/L CARBON DIOXIDE (test code = 25 MEQ/L 2205) CALCIUM (test code = 2209) 8.8 MG/DL PROTEIN, TOTAL (test code = 6.7 G/DL 2229) ALBUMIN (test code = 2201) 3.4 G/DL CALC GLOBULIN (test code = 3.3 G/DL 2240) CALC A/G RATIO (test code = 1.0 RATIO 2234) BILIRUBIN, TOTAL (test code = 0.3 MG/DL 2206) ALKALINE PHOSPHATASE (test 165 U/L code = 2204) AST (test code = 2218) 20 U/L ALT (test code = 2219) 10 U/L [id number] 00:00:00 Test Item Value Reference Range Interpretation Comments TSH, THIRD GENERATION (test code 1.300 UIU/ML = 2821) [id number] 00:00:00 Test Item Value Reference Range Interpretation Comments TSH, THIRD GENERATION (test code 1.300 UIU/ML = 2821) [id number] 00:00:00 Test Item Value Reference Range Interpretation Comments TSH, THIRD GENERATION (test code 1.300 UIU/ML = 2821) MICROALBUMIN/CREATININE, RANDOM AND [id number] 00:00:00 Test Item Value Reference Range Interpretation Comments CREATININE, URINE, CONC. (test 33.9 MG/DL code = 2072) ALBUMIN, URINE, RANDOM (test code 196.7 MG/DL = 17281) CALC ALBUMIN/CREAT, RND (test 5802 MG/G code = 12152) MICROALBUMIN/CREATININE, RANDOM AND [id number] 00:00:00 Test Item Value Reference Range Interpretation Comments CREATININE, URINE, CONC. (test 33.9 MG/DL code = 2072) ALBUMIN, URINE, RANDOM (test code 196.7 MG/DL = 12734) CALC ALBUMIN/CREAT, RND (test 5802 MG/G code = 42844) COMPREHENSIVE METABOLIC [id number] 00:00:00 Test Item Value Reference Range Interpretation Comments GLUCOSE (test code = 2217) 241 MG/DL BUN (test code = 2208) 42 MG/DL CREATININE (test code = 2214) 2.62 MG/DL eGFR AMER. (test code 22 ML/MIN/1.73 = 30543) eGFR NON- AMER. (test 19 ML/MIN/1.73 code = 66950) CALC BUN/CREAT (test code = 16 RATIO [...] ALT (test code = 2219) 10 U/L [id number] 00:00:00 Test Item Value Reference Range Interpretation Comments TSH, THIRD GENERATION (test code 1.300 UIU/ML = 2821) [id number] 00:00:00 Test Item Value Reference Range Interpretation Comments TSH, THIRD GENERATION (test code 1.300 UIU/ML = 2821) MICROALBUMIN/CREATININE, RANDOM AND [id number] 00:00:00 Test Item Value Reference Range Interpretation Comments CREATININE, URINE, CONC. (test 33.9 MG/DL code = 2072) ALBUMIN, URINE, RANDOM (test code 196.7 MG/DL = 15608) CALC ALBUMIN/CREAT, RND (test 5802 MG/G code = 72532) HEMOGLOBIN [id number] 00:00:00 Test Item Value Reference Range Interpretation Comments HEMOGLOBIN A1c (test code = 47248) 9.5 % HEMOGLOBIN [id number] 00:00:00 Test Item Value Reference Range Interpretation Comments HEMOGLOBIN A1c (test code = 41099) 9.5 % HEMOGLOBIN [id number] 00:00:00 Test Item Value Reference Range Interpretation Comments HEMOGLOBIN A1c (test code = 53599) 9.5 % LIPID [id number] 00:00:00 Test Item Value Reference Range Interpretation Comments CHOLESTEROL (test code = 2210) 166 MG/DL TRIGLYCERIDES (test code = 2232) 77 MG/DL HDL CHOLESTEROL (test code = 2220) 71 MG/DL CALC LDL CHOL (test code = 2237) 80 MG/DL RISK RATIO LDL/HDL (test code = 1.12 RATIO 2238) LIPID [id number] 00:00:00 Test Item Value Reference Range Interpretation Comments CHOLESTEROL (test code = 2210) 166 MG/DL TRIGLYCERIDES (test code = 2232) 77 MG/DL HDL CHOLESTEROL (test code = 2220) 71 MG/DL CALC LDL CHOL (test code = 2237) 80 MG/DL RISK RATIO LDL/HDL (test code = 1.12 RATIO 2238) COMPREHENSIVE METABOLIC [id number] 00:00:00 Test Item Value Reference Range Interpretation Comments GLUCOSE (test code = 2217) 241 MG/DL BUN (test code = 2208) 42 MG/DL CREATININE (test code = 2214) 2.62 MG/DL eGFR AMER. (test code 22 ML/MIN/1.73 = 67972) eGFR NON- AMER. (test 19 ML/MIN/1.73 code = 74417) CALC BUN/CREAT (test code = 16 RATIO [...] code = 2219) 10 U/L COMPREHENSIVE METABOLIC [id number] 00:00:00 Test Item Value Reference Range Interpretation Comments GLUCOSE (test code = 2217) 241 MG/DL BUN (test code = 2208) 42 MG/DL CREATININE (test code = 2214) 2.62 MG/DL eGFR AMER. (test code 22 ML/MIN/1.73 = 79078) eGFR NON- AMER. (test 19 ML/MIN/1.73 code = 85915) CALC BUN/CREAT (test code = 16 RATIO [...]
--- NOTE | 2022-07-25 13:29 | RAD REPORT ---
EXAM DESCRIPTION: CT - Abdomen Pelvis Wo Contrast - 07/25/2022 1:15 pm CLINICAL HISTORY: Abdominal pain /diarrhea COMPARISON: None TECHNIQUE: Computed axial tomography of the abdomen and pelvis was obtained. IV and oral contrast we re not requested. All CT scans are performed using dose optimization technique as appropriate and may include automated exposure control or mA/KV adjustment according to patient size. FINDINGS: The evaluation of solid organs, vessels and bowel is limited secondary to the lack of con trast administration. Small pleural effusions. The liver, spleen, pancreas, adrenals appear grossly normal Small kidneys. Extensive vascular calcifications. No evidence of diverticulitis. Diffuse edema within subcutaneous tissues. Small amount ascites abdomen. Small to moderate amount of ascites pelvis IMPRESSION: Small amount ascites abdomen. Small to moderate amount of ascites pelvis
[2022-07-25 14:05] LABS: ALT/SGPT 12 U/L (13-56); AST/SGOT 48 U/L (15-37); Albumin 2.6 g/dL (3.4-5.0); Alkaline Phosphatase 395 U/L (45-117); BUN Blood Urea Nitrogen 48 mg/dL (7-18); Bicarbonate 24 mmol/L (21-32); Bilirubin Total 2.4 mg/dL (0.2-1.0); Glomerular Filtration Rate 9 ml/min (=/>90); Lipase 143 U/L (73-393); NT PRO-BNP > 35000 pg/mL (<125); Potassium 4.4 mmol/L (3.5-5.1); Protein, Total 7.3 g/dL (6.4-8.2); Sodium Level 129 mmol/L (136-145)
[2022-07-25 14:07] LABS: Absolute Lymphocytes (CBC) 0.8 K/uL (0.7-4.9); Hematocrit 37.7 % (36.0-45.0); Lymphocytes % 10.3 % (15.3-44.8); MPV 11.2 fL (7.6-11.3); RBC Red Blood Cell Count 3.85 M/uL (3.86-4.86)
--- NOTE | 2022-07-25 14:15 | RAD REPORT ---
EXAM DESCRIPTION: [facility] Single View07/25/2022 2:02 pm CLINICAL HISTORY: Shortness of breath COMPARISON: July 22, 2022 FINDINGS: The lungs appear clear of acute infiltrate. The heart is moderately enlarged. Small bilateral pleural effusions
[2022-07-25 14:20] LABS: SARS-COV-2 RT PCR NEGATIVE (NEGATIVE)
[2022-07-25 14:30] LABS: Glucose Level 545 mg/dL (74-106)
--- NOTE | 2022-07-25 16:45 | ER ---
Nurse's Notes [facility] Name: Margarita Dominique Age: 62 yrs Sex: Female : 1960 Arrival Date: 07/25/2022 Time: 13:04 Bed 4 Private MD: Diagnosis: Hyperglycemia, unspecified;End stage renal disease;Muscle weakness (generalized) Presentation: 07/25 13:04 Chief complaint: EMS states: toned out to [facility] for N/V. EMS reports BGL 484. ld1 Family reports "I think she is taking pain medication because she is so drowsy.". Coronavirus screen: At this time, the client does not indicate any symptoms associated with coronavirus-19. Ebola Screen: No symptoms or risks identified at this time. Initial Sepsis Screen: Does the patient meet any 2 criteria? No. Patient's initial sepsis screen is negative. Does the patient have a suspected source of infection? No. Patient's initial sepsis screen is negative. Risk Assessment: Do you want to hurt yourself or someone else? Patient reports no desire to harm self or others. Onset of symptoms was July 25, 2022. 13:04 Method Of Arrival: EMS: [facility] ld1 13:04 Acuity: YEFRI 3 ld1 Triage Assessment: 13:07 General: Appears in no apparent distress. comfortable, Behavior is calm, cooperative, ld1 appropriate for age. Pain: Denies pain. EENT: No signs and/or symptoms were reported regarding the EENT system. Neuro: Level of Consciousness is awake, alert, obeys commands, Oriented to person, place, time, situation. Cardiovascular: Capillary refill < 3 seconds Patient's skin is warm and dry. Rhythm is sinus rhythm. Respiratory: Airway is patent Respiratory effort is even, unlabored. GI: Abdomen is flat, non-distended, Reports nausea, vomiting. : No signs and/or symptoms were reported regarding the genitourinary system. Derm: No signs and/or symptoms reported regarding the dermatologic system. Musculoskeletal: No signs and/or symptoms reported regarding the musculoskeletal system. 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 - Social history:: Smoking status: Patient denies any tobacco usage or history of. Patient/guardian denies using alcohol. - Family history:: not pertinent. - Hospitalizations: : The patient was recently seen at [facility]. Screenin:09 [facility] ED Fall Risk Assessment (Adult) History of falling in the last 3 months, ld1 including since admission No falls in past 3 months (0 pts). Abuse screen: Denies threats or abuse. Denies injuries from another. Nutritional screening: No deficits noted. Tuberculosis screening: No symptoms or risk factors identified. Assessment: 13:09 Reassessment: See triage assessment. ld1 14:30 Reassessment: Patient appears in no apparent distress at this time. Patient and/or hb family updated on plan of care and expected duration. Pain level reassessed. Patient is alert, oriented x 3, equal unlabored respirations, skin warm/dry/pink. 15:52 Reassessment: Patient appears in no apparent distress at this time. Patient and/or hb family updated on plan of care and expected duration. Pain level reassessed. Patient is alert, oriented x 3, equal unlabored respirations, skin warm/dry/pink. Vital Signs: 13:04 BP 129 / 70; Pulse 87; Resp 14; Temp 98.3(O); Pulse Ox 94% on R/A; Height 5 ft. 1 in. ld1 (154.94 cm); Pain 0/10; 13:04 Weight 52.5 kg; ld1 14:35 BP 117 / 89; Pulse 86; Resp 15; Pulse Ox 97% on R/A; hb ED Course: 13:04 Patient arrived in ED. rn 13:04 José Miguel Lynn MD is Attending Physician. rn 13:07 Triage completed. ld1 13:07 Arm band placed on right wrist. ld1 13:09 Patient has correct armband on for positive identification. Placed in gown. Bed in low ld1 position. Call light in reach. Side rails up X2. color television console monitor on. Pulse ox on. NIBP on. Door closed. Noise minimized. 13:09 No provider procedures requiring assistance completed. ld1 13:17 CT Abd/Pelvis - Without Contrast In Process Unspecified. EDMS 13:39 Inserted saline lock: 24 gauge in left forearm, using aseptic technique. Blood hb collected. 14:04 XRAY Chest (1 view) In Process Unspecified. EDMS 14:35 Harriett Solis, RN is Primary Nurse. hb 17:20 IV discontinued, intact, bleeding controlled. hb Administered Medications: 15:48 Drug: Insulin Regular Human 5 units {Co-Signature: ld1 (Jackelin Raymond RN).} Route: hb Sub-Q; Site: right upper arm; Medication: 13:09 VIS not applicable for this client. ld1 Outcome: 16:44 Discharge ordered by . rn 17:19 Discharged to home via wheelchair, with family. hb 17:19 Condition: stable 17:19 Discharge instructions given to patient, family, Instructed on discharge instructions, follow up and referral plans. medication usage, Demonstrated understanding of instructions, follow-up care, medications. 17:20 Patient left the ED. hb Signatures: Dispatcher [employer] EDNJ José Miguel Lynn MD MD rn Baxter, Heather, RN RN Jackelin Raymond RN RN ld1 Jackelin Raymond RN ld1
--- NOTE | 2022-07-25 16:45 | EDPHYS ---
Physician Documentation [facility] Name: Margarita Dominique Age: 62 yrs Sex: Female : 1960 Arrival Date: 07/25/2022 Time: 13:04 Bed 4 Private MD: ED Physician José Miguel Lynn HPI: 07/25 16:12 This 62 yrs old Female presents to ER via EMS with complaints of high blood rn sugar. 16:12 The patient or guardian reports hyperglycemia, that was potentially precipitated by rn sleeping. Onset: The symptoms/episode began/occurred 5 day(s) ago. Associated signs and symptoms: Pertinent negatives: seizure activity. Current symptoms: In the emergency department the patient's symptoms are unchanged from the initial presentation. The patient has not experienced similar symptoms in the past. The patient has been recently seen by a physician:. Pt reports high blood sugar, for a few days, recently had finger amputated, is taking abx, is sleeping a lot due to pain medication, and has been missing her insulin doses. NO fever. WOund healing well. Went to dialysis today and sent here because vomited x 1 and had high blood sugar. . 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 - Social history:: Smoking status: Patient denies any tobacco usage or history of. Patient/guardian denies using alcohol. - Family history:: not pertinent. - Hospitalizations: : The patient was recently seen at [facility]. ROS: 16:12 Constitutional: Negative for fever, chills, and weight loss, Eyes: Negative for injury, rn pain, redness, and discharge, Neck: Negative for injury, pain, and swelling, Cardiovascular: Negative for chest pain, palpitations Respiratory: Negative for wheezing, and pleuritic chest pain, Abdomen/GI: Negative for abdominal pain, diarrhea, and constipation, MS/Extremity: Negative for injury and deformity, Skin: Negative for injury, rash, and discoloration, Neuro: Negative for headache, numbness, tingling, and seizure. Exam: 16:12 Constitutional: This is a well developed, well nourished patient who is awake, alert, rn and in no acute distress. Head/Face: Normocephalic, atraumatic. Cardiovascular: Regular rate and rhythm. No pulse deficits. Respiratory: No increased work of breathing, no retractions or nasal flaring. Abdomen/GI: Soft, non-tender Skin: Warm, dry MS/ Extremity: Pulses equal, no cyanosis. Neuro: Awake and alert, GCS 15 Vital Signs: 13:04 BP 129 / 70; Pulse 87; Resp 14; Temp 98.3(O); Pulse Ox 94% on R/A; Height 5 ft. 1 in. ld1 (154.94 cm); Pain 0/10; 13:04 Weight 52.5 kg; ld1 14:35 BP 117 / 89; Pulse 86; Resp 15; Pulse Ox 97% on R/A; hb MDM: 13:04 Patient medically screened. rn 16:33 Differential diagnosis: hyperglycemia, dehydration, ESRD, medication side effect, rn hyperglycemia. Data reviewed: vital signs, nurses notes, lab test result(s), radiologic studies, plain films, and as a result, I will discharge patient. Consideration of Admission/Observation Escalation of care including admission/observation considered. Historians other than the Patient: Daughter/Son: Son here to confirm story. He states she has been taking pain medication that is making her sleepy. He spoke with [facility] and scheduled dialysis for tomorrow at 12:30, he does not want her admitted and wants to take her home. . Care significantly affected by the following chronic conditions: Diabetes, Hypertension, Chronic Kidney Disease. Counseling: I had a detailed discussion with the patient and/or guardian regarding: the historical points, exam findings, and any diagnostic results supporting the discharge/admit diagnosis, lab results, radiology results, the need for outpatient follow up, to return to the emergency department if symptoms worsen or persist or if there are any questions or concerns that arise at home. Response to treatment: the patient's symptoms have markedly improved after treatment, and as a result, I will discharge patient. Special discussion: I discussed with the patient/guardian in detail that at this point there is no indication for admission to the hospital. It is understood, however, that if the symptoms persist or worsen the patient needs to return immediately for re-evaluation. 07/25 13:06 Order name: CBC with Diff; Complete Time: 14:40 rn 07/25 13:06 Order name: CMP; Complete Time: 14:40 rn 07/25 13:06 Order name: Lipase; Complete Time: 14:40 rn 07/25 13:06 Order name: COVID-19/FLU A+B; Complete Time: 14:40 rn 07/25 13:06 Order name: Ketone, Serum; Complete Time: 14:40 rn 07/25 13:06 Order name: BNP; Complete Time: 14:40 rn 07/25 13:06 Order name: CT Abd/Pelvis - Without Contrast; Complete Time: 14:40 rn 07/25 13:06 Order name: IV Saline Lock; Complete Time: 13:38 rn 07/25 13:06 Order name: Labs collected and sent; Complete Time: 13:38 rn 07/25 13:06 Order name: Glucose Level; Complete Time: 13:38 rn 07/25 13:06 Order name: XRAY Chest (1 view); Complete Time: 14:40 rn 07/25 13:49 Order name: Glucose, Ancillary Testing; Complete Time: 14:40 EDMS Administered Medications: 15:48 Drug: Insulin Regular Human 5 units {Co-Signature: ld1 (Jackelin Raymond RN).} Route: Sub-Q; Site: right upper arm; Disposition Summary: 07/25/22 16:44 Discharge Ordered Location: Home rn Problem: new rn Symptoms: have improved rn Condition: Stable rn Diagnosis - Hyperglycemia, unspecified rn - End stage renal disease rn - Muscle weakness (generalized) rn Followup: rn - With: Private Physician - When: As needed - Reason: Recheck today's complaints, Re-evaluation by your physician Discharge Instructions: - Discharge Summary Sheet rn - Hyperglycemia rn - Weakness rn - 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 rn
[2022-07-25 17:34] VITALS: TEMP 98.3
[2022-07-25 17:40] VITALS: BP 117/89; O2SAT 97
== END 2022-07-25 17:20 | disposition home or self-care (01) ==
LOC: ER 12:58
DX: E11.65 Type 2 diabetes mellitus with hyperglycemia (principal); M62.81 Muscle weakness (generalized); E11.22 Type 2 diabetes mellitus with diabetic chronic kidney disease; I13.2 Hypertensive heart and chronic kidney disease with heart failure and with stage 5 chronic kidney disease, or end stage renal disease; I50.9 Heart failure, unspecified; N18.6 End stage renal disease; Z99.2 Dependence on renal dialysis; Z20.822 Contact with and (suspected) exposure to COVID-19
CPT/HCPCS: 85025; 36415; 82010; 82947; 83690; 80053; 83880; 0240U; 74176; 71045; 96372; 99284

== ENCOUNTER 2022-08-18 15:01 | Inpatient (IN) | payer OTHER ==
--- OUTSIDE RECORDS SUMMARY | 2022-08-18 16:00 | XMS REPORT | Continuity of Care Document ---
:1960 Author Organization [facility] t Address [address] [facility]. [place]. [address] [place] [address] Care Team Providers Name Role Phone Pcp, Patient Does Not Have A Primary Care Physician +[id number] Doctor Unassigned, Moran Attending Clinician Unavailable Shoaib [place] Attending Clinician Ariela Khalil Attending Clinician Ariela Khalil Admitting Clinician Payers Payer Name Policy Type Policy Number Effective Date Expiration Date Bibi Bryant C1 [id number] Common [facility] Problems Condition Condition Condition Status Onset Resolution Last Treating Co mments Source Name Details Category Date Date Treatment Clinician Date Thyroid Thyroid Disease Active 2018-06 Univers nodule nodule 2-13 ity of 00:00: [address] Acquired Acquired Disease Active 2018-06 Unive rs hypothyroi hypothyroi 2-13 it y of dism dism 00:00: [address] 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-13 ity of mellitus mellitus 00:00: [place] with with 00 Medical diabetic diabetic Branch polyneurop polyneurop athy, athy, without without long-term long-term current current use of use of insulin insulin History of History of Disease Active 2018-06 U nivers cerebrovas cerebrovas 2-13 it y of cular cular 00:00: [place] disease disease 00 Medical Branch Amputated Amputated Disease Active 2018-06 Uni vers right leg right leg 2-13 ity of 00:00: [place] 00 Medical Branch N N Active Diagnosis Active 2018-08-20 Memoria 07/13/201807-13 16:53:00 l MH 00:00: [facility] 00 Cerebral Cerebral Problem Active [...] 2020-06-10 Memoria (finding) (finding) 01:37:21 l Active Van Problem 06/10/2020 [facility] Hypertensi Hypertens Problem [...] nerve l nerve 01:37:21 l disease disease Van (disorder) (disorder) Active Problem 06/10/2020 [facility] Allergies, Adverse Reactions, Alerts Allergy Allergy Status Severity Reaction(s) Onset Inactive Treating Comm ents Source Name Type Date Date Clinician No Known DA Active U [facility] Allergie 06-28 Clear s 00:00: Ros[place] 00 [facility] Social History Social Habit Start Date Stop Date Quantity Comments Source Tobacco use and 2019-06-03 2019-06-03 Smokeless tobacco Un iversity of exposure 00:00:00 00:00:00 non-user [facility] Sex Assigned At [birth year] [facility] 00:00:00 00:00:00 [facility] Smoking Status Start Date Stop Date Source Unknown if ever smoked Common Sp ded[facility] Social History [facility] Medications Ordered Filled Start Stop [...] Unknown 8-10 00:00: 00 INJECT 2022-0 No [id number] TWICE DAILY 8-10 PER SLIDING 00:00: SCALE. 00 Dose 2022-0 No 800 Unknown 8-10 00:00: 00 Dose 2022-0 No Unknown 8-10 00:00: 00 Dose 2022-0 No Unknown 8-10 00:00: 00 Dose 2022-0 No 4 Unknown 8-10 00:00: 00 Dose 2022-0 No 6 Unknown 8-10 00:00: 00 Dose 2022-0 No Unknown 8-10 00:00: 00 INJECT 2022-0 No [id number] TWICE DAILY 8-10 PER SLIDING 00:00: SCALE. 00 Dose 2-0 No 800 Unknown 8-10 00:00: 00 Dose 2-0 No Unknown 8-10 00:00: 00 Dose 2-0 No Unknown 8-10 00:00: 00 Dose 2-0 No 4 Unknown 8-10 00:00: 00 Dose 2-0 No 6 Unknown 8-10 00:00: 00 Dose 2-0 No Unknown 8-10 00:00: 00 INJECT 2022-0 No [id number] TWICE DAILY 8-10 PER SLIDING 00:00: SCALE. [...] GREGORIA VECES AL TAMIKO. INJECT 2-0 No [id number] TWICE DAILY 8-10 PER SLIDING 00:00: SCALE. 00 Dose 2-0 No 800 Unknown 8-10 00:00: 00 Dose 2022-0 No Unknown 8-10 00:00: 00 Dose 2022-0 No Unknown 8-10 00:00: 00 Dose 2022-0 No 4 Unknown 8-10 00:00: 00 Dose 2022-0 No 6 Unknown 8-10 00:00: 00 TOME DOS 2-0 No 100 (2) 8-10 CAPSULA(S) 00:00: POR [place] BOCA 00 GREGORIA VECES AL TAMIKO. INJECT No [id number] TWICE DAILY 8-10 PER SLIDING 00:00: SCALE. [...] 8- 00:00: 00 Dose 2021-0 No Unknown 01-28 00:00: 00 APPLY TO No AFFECTED 8-09 AREA 30 00:00: MINUTES 00 BEFORE TREATMENT. TOME MEDIA No 25 (1/2) 8-09 TABLETA(S) 00:00: POR LA BOCA 00 DOS VECES AL TAMIKO. (6AM Y 6PM). TOME DIXIE No 25 (1) 8-09 TABLETA(S) 00:00: POR LA BOCA 00 DIXIE VEZ AL TAMIKO. Dose 0 No Unknown 8 00:00: 00 TOME DIXIE No 50 (1) [...] 8- 00:00: 00 Dose 2021-0 No Unknown 01-28 [...] 12-20 00:00: 00 INJECT PER No SLIDING - SCALE FOR 00:00: DIABETES. 00 MAX DOSE OF 30 UNITS. INJECT PER No SLIDING 12-20 SCALE FOR 00:00: DIABETES. 00 MAX DOSE OF 30 UNITS. TOME DIXIE No (1) 6-24 TABLETA(S) 00:00: POR LA BOCA 00 DIARIO. TOME IDXIE No (1) 6-24 TABLETA(S) 00:00: POR LA [...] Insulin 100 00 unit/mL injection solution clopidogrel 2021- No 1mg 75 mg 6-11 tablet 00:00: 00 furosemide 2021-0 No 1mg 20 mg 6-11 tablet 00:00: 00 isosorbide 2021-0 No 1mg mononitrate 6-11 ER 30 mg 00:00: tablet,exte 00 nded release 24 hr metoprolol 2021- No 5mg tartrate 25 6-11 mg tablet [...] 6-11 TABLETA(S) 00:00: POR LA BOCA 00 IDXIE VEZ AL TAMIKO. TOME DIXIE No (1) [...] 0 No Unknown 1-06 00:00: 00 Dose 0 No Unknown 1-06 00:00: 00 amlodipine No [...] n 40 mg 5-30 tablet 00:00: 00 atorvastati 2020-0 Yes 40 mg = 1 M emoria n 40 mg 5-28 tab, PO, l oral tablet 20:33: Daily, 0 Refill(s) carvedilol 2020-0 Yes 25 mg = 1 Me moria 25 mg oral 5-28 tab, PO, l tablet 20:33: BID, 0 Refill(s) clopidogrel 2020-0 Yes 75 mg = 1 M emoria 75 mg oral 5-28 tab, PO, l tablet 20:33: Daily, 0 Van 00 Refill(s) cyclobenzap 2020-0 Yes 10 mg = 1 M emoria rine 10 mg 5-28 tab, PO, l oral tablet 20:33: TID, 0 Herm nilay 00 Refill(s) Fluticasone 2020-0 Yes NASAL, [place] titus propionate 5-28 Daily, 0 l 0.05 20:33: Refill(s) Vladimir MG/ACTUAT 00 Metered Dose Nasal [place] gabapentin 2020-0 Yes 100 mg = 1 M emoria 100 MG Oral 5-28 cap, PO, l Capsule 20:33: Bedtime, 0 Herm nilay 00 Refill(s) Insulin 2020-0 Yes 10 unit, Memori a Glargine -28 SUB-Q, l 100 UNT/ML 20:33: Bedtime, # H ermann Injectable 00 10 mL, 0 Solution Refill(s) [Lantus] Novolin R 2020-0 Yes 12 unit, [place] titus 5-28 SUB-Q, l 20:33: ONCE, 0 Vladimir 00 Refill(s) Levothyroxi 2019-0 Yes 25 Memori a ne Sodium 5-28 microgram l 0.025 MG 20:33: = 1 tab, Jossie nn Oral Tablet 00 PO, Daily, [Synthroid] 0 Refill(s) amLODIPine 2020-0 Yes 10 mg = 1 Me moria 10 mg oral 5-28 tab, PO, l tablet 20:33: Daily, 0 Van 00 Refill(s) amLODIPine 2020-0 Yes 10 mg = [...] 20:33: Daily, 0 He rmann 00 Refill(s) Aspirin 81 2020-0 Yes 81 mg = 1 Me moria MG Enteric 5-28 tab, PO, l Coated 20:33: Daily, # Van Tablet 00 90 tab, 3 Refill(s) carvedilol 2020-0 Yes 25 mg = 1 Me moria 25 mg oral 5-28 tab, PO, l tablet 20:33: BID, 0 Van Refill(s) clopidogrel 2020-0 Yes 75 mg = 1 M emoria 75 mg oral 5-28 tab, PO, l tablet 20:33: Daily, 0 Van Refill(s) cyclobenzap 2020-0 Yes 10 mg = 1 M emoria rine 10 mg 5-28 tab, PO, l oral tablet 20:33: TID, 0 Herm nilay Refill(s) Fluticasone 2020-0 Yes NASAL, [place] titus propionate 5-28 Daily, 0 l 0.05 20:33: Refill(s) Van MG/ACTUAT 00 Metered Dose Nasal [place] gabapentin 2020-0 Yes 100 mg = 1 M emoria 100 MG Oral 5-28 cap, PO, l Capsule 20:33: Bedtime, 0 Herm nilay Refill(s) Insulin 2020-0 Yes 10 unit, Memori a Glargine 5-28 SUB-Q, l 100 UNT/ML 20:33: Bedtime, # H ermann Injectable 00 10 mL, 0 Solution Refill(s) [Lantus] Novolin R 2020-0 Yes 12 unit, [place] titus 5-28 SUB-Q, l 20:33: ONCE, 0 Van 00 Refill(s) Levothyroxi 2020-0 Yes 25 Memori [...] tab, PO, l tablet 20:33: BID, 0 Van 00 Refill(s) clopidogrel 2020-0 Yes 75 mg = 1 M emoria 75 mg oral 5-28 tab, PO, l tablet 20:33: Daily, 0 Van 00 Refill(s) cyclobenzap 2020-0 Yes 10 mg = 1 M emoria rine 10 mg 5-28 tab, PO, l oral tablet 20:33: TID, 0 Herm nilay 00 Refill(s) Fluticasone 2020-0 Yes NASAL, [place] titus propionate 5-28 Daily, 0 l 0.05 20:33: Refill(s) Van MG/ACTUAT 00 Metered Dose Nasal [place] gabapentin 2020-0 Yes 100 mg = 1 [...] titus 5-28 SUB-Q, l 20:33: ONCE, 0 Van 00 Refill(s) Levothyroxi 2020-0 Yes 25 Memori a ne Sodium 5-28 microgram l 0.025 MG 20:33: = 1 tab, Jossie nn Oral Tablet 00 PO, Daily, [Synthroid] 0 Refill(s) amLODIPine 2020-0 Yes 10 mg = 1 Me moria 10 mg oral 5-28 tab, PO, l tablet 20:33: Daily, 0 Van 00 Refill(s) Aspirin 81 2020-0 Yes 81 [...] tab, PO, l tablet 20:33: Daily, 0 Van 00 Refill(s) cyclobenzap 2020-0 Yes 10 mg = 1 M emoria rine 10 mg 5-28 tab, PO, l oral tablet 20:33: TID, 0 Herm nilay Refill(s) Fluticasone 2020-0 Yes NASAL, [place] titus propionate 5-28 Daily, 0 l 0.05 20:33: Refill(s) Van MG/ACTUAT 00 Metered Dose Nasal [place] gabapentin 2020-0 Yes 100 mg = 1 [...] tab, PO, l tablet 20:33: Daily, 0 Van 00 Refill(s) Aspirin 81 2020-0 Yes 81 mg = 1 Me moria MG Enteric 5-28 tab, PO, l Coated 20:33: Daily, # Van Tablet 00 90 tab, 3 Refill(s) atorvastati 2020-0 Yes 40 mg = 1 M emoria n 40 mg 5-28 tab, PO, l oral tablet 20:33: Daily, 0 He rmann 00 Refill(s) carvedilol 2020-0 Yes 25 mg = 1 Me moria 25 mg oral 5-28 tab, PO, l tablet 20:33: BID, 0 Van 00 Refill(s) clopidogrel 2020-0 Yes 75 mg [...] 5-28 Daily, 0 l 0.05 20:33: Refill(s) Van MG/ACTUAT 00 Metered Dose Nasal [place] gabapentin 2020-0 Yes 100 mg = 1 [...] tab, PO, l Coated 20:33: Daily, # Van Tablet 00 90 tab, 3 Refill(s) atorvastati [...] tab, PO, l tablet 20:33: Daily, 0 Van 00 Refill(s) cyclobenzap 2020-0 Yes 10 mg = 1 M emoria rine 10 mg 5-28 tab, PO, l oral tablet 20:33: TID, 0 Herm nilay 00 Refill(s) Fluticasone 2020-0 Yes NASAL, [place] titus propionate 5-28 Daily, 0 l 0.05 20:33: Refill(s) Vladimir MG/ACTUAT 00 Metered Dose Nasal [place] gabapentin 2020-0 Yes 100 mg = 1 [...] titus 5-28 SUB-Q, l 20:33: ONCE, 0 Van 00 Refill(s) Levothyroxi 2020-0 Yes 25 Memori a ne Sodium 5-28 microgram l 0.025 MG 20:33: = 1 tab, Jossie nn Oral Tablet 00 PO, Daily, [Synthroid] 0 Refill(s) amLODIPine 2020-0 Yes 10 mg = 1 Me moria 10 mg oral 5-28 tab, PO, l tablet 20:33: Daily, 0 Van 00 Refill(s) Aspirin 81 2020-0 Yes 81 [...] tab, PO, l tablet 20:33: Daily, 0 Van 00 Refill(s) cyclobenzap 2020-0 Yes 10 mg = 1 M emoria rine 10 mg 5-28 tab, PO, l oral tablet 20:33: TID, 0 Herm nilay Refill(s) Fluticasone 2020-0 Yes NASAL, [place] titus propionate 5-28 Daily, 0 l 0.05 20:33: Refill(s) Van MG/ACTUAT 00 Metered Dose Nasal [place] gabapentin 2020-0 Yes 100 mg = 1 [...] titus 5-28 SUB-Q, l 20:33: ONCE, 0 Van 00 Refill(s) Levothyroxi 2020-0 Yes 25 Memori [...] tab, PO, l Coated 20:33: Daily, # Van Tablet 00 90 tab, 3 Refill(s) atorvastati 2020-0 Yes 40 mg = 1 M emoria n 40 mg 5-28 tab, PO, l oral tablet 20:33: Daily, 0 He rmann 00 Refill(s) carvedilol 2020-0 Yes 25 mg = 1 Me moria 25 mg oral 5-28 tab, PO, l tablet 20:33: BID, 0 Van 00 Refill(s) clopidogrel 2020-0 Yes 75 mg = 1 M emoria 75 mg oral 5-28 tab, PO, l tablet 20:33: Daily, 0 Van 00 Refill(s) cyclobenzap 2020-0 Yes 10 mg = 1 M emoria rine 10 mg 5-28 tab, PO, l oral tablet 20:33: TID, 0 Herm nilay Refill(s) Fluticasone 2020-0 Yes NASAL, [place] titus propionate 5-28 Daily, 0 l 0.05 20:33: Refill(s) Vladimir MG/ACTUAT 00 Metered Dose Nasal [place] gabapentin 2020-0 Yes 100 mg = 1 [...] tab, PO, l tablet 20:33: Daily, 0 Van 00 Refill(s) Aspirin 81 2020-0 Yes 81 mg = 1 Me moria MG Enteric 5-28 tab, PO, l Coated 20:33: Daily, # Vladimir Tablet 00 90 tab, 3 Refill(s) acetaminoph 2020-0 No 1mg en ER [...] 75 mg 2-04 tablet 00:00: 00 atorvastati 2019-0 No 1mg n 40 mg 2-04 tablet 00:00: 00 levothyroxi 2020-0 No 1mcg ne 25 mcg 2-04 tablet 00:00: 00 levothyroxi 2018-06 Yes 25ug Take 25 Uni vers ne 25 mcg 2-13 mcg by ity of tablet 10:28: mouth [place] [address] every Medical morning. Branch clopidogrel 2018-06 Yes 75mg Take 75 mg Univers 75 mg 2-13 by mouth ity of tablet 10:28: daily. [place] [address] Medical Branch atorvastati 2018-06 Yes 40mg Take 40 mg Univers n 40 mg 2-13 by mouth ity of tablet 10:28: at [place] [address] bedtime. Medical Branch gabapentin 2018-06 Yes 100mg Take 100 Un jen 100 mg 2-13 mg by ity of capsule 10:28: mouth 3 [place] [address] (three) Medical times Branch daily. glimepiride 2018-06 Yes 1mg Take 1 mg U nivers 1 mg tablet 2-13 by mouth ity of 10:28: daily with [place] [address] breakfast. [facility] Branch BABY 2018-06 Yes Take by Univers ASPIRIN 2-13 mouth. ity of ORAL 10:28: [address] furosemide 2018-06 No 1mg 20 mg 1-26 [...] pen amlodipine 2019-1 No 1mg 10 mg 1-06 tablet 00:00: [...] 00 unit/mL injection solution Lantus 2018-1 No 20(3 Solostar 1-06 mL) U-100 00:00: [...] 25 mcg 1-03 tablet 00:00: 00 Lantus 2018- No 10unit/ U-100 2-13 mL Insulin 100 00:00: unit/mL 00 subcutaneou s solution Novolin R 2017-06 No 12unit/ Regular 2-13 mL U-100 00:00: Insulin 100 00 unit/mL injection solution Lantus 2017-06 No 10unit/ U-100 2-13 mL Insulin 100 00:00: unit/mL 00 subcutaneou s solution Novolin R 2017- No 12unit/ Regular 2-13 mL U-100 00:00: Insulin 100 00 unit/mL injection solution Lantus 2017-06 No 10unit/ U-100 2-13 mL Insulin 100 00:00: unit/mL 00 subcutaneou s solution Novolin R 2017-1 No 12unit/ Regular 2-13 mL U-100 00:00: Insulin 100 00 unit/mL injection solution Lantus 2017-06 No 10unit/ U-100 2-13 mL Insulin 100 00:00: unit/mL 00 subcutaneou s solution Novolin R 20181 No 12unit/ Regular 2-13 mL U-100 00:00: [...] 20 mg 2-12 tablet 00:00: 00 isosorbide No 1mg dinitrate 2-12 30 mg 00:00: [...] Insulin 100 00 unit/mL injection solution amlodipine 2018-0 No 1mg 10 mg 8-13 [...] 00 Novolin R 2018-0 No unit/mL Regular 8 U-100 00:00: Insulin 100 00 unit/mL injection solution Novolin R 2018-0 No 8unit/m Regular 806 L U-100 00:00: Insulin 100 00 unit/mL injection solution Novolin R 2018-0 No unit/mL Regular 8 U-100 00:00: Insulin 100 00 unit/mL injection solution Novolin R 2018-0 No 8unit/m Regular 8-06 L U-100 00:00: Insulin 100 00 unit/mL injection solution Novolin R 2018-0 No unit/mL Regular 8 U-100 00:00: Insulin 100 00 unit/mL injection solution Novolin R 2018-0 No 8unit/m Regular 806 L U-100 00:00: Insulin 100 00 unit/mL injection solution Novolin R 2018-0 No unit/mL Regular 8 U-100 00:00: Insulin 100 00 unit/mL injection solution Novolin R 2018-0 No 8unit/m Regular 806 L U-100 00:00: Insulin 100 00 unit/mL injection solution Novolin R 2018-0 No unit/mL Regular 806 U-100 00:00: Insulin 100 00 unit/mL injection solution Novolin R 2018-0 No 8unit/m Regular 8-06 L U-100 00:00: Insulin 100 00 unit/mL injection solution Novolin R 2018-0 No unit/mL Regular 8 U-100 00:00: Insulin 100 00 unit/mL injection [...] aspirin 81 2018-0 No 1mg mg 7-02 tablet,igro 00:00: yed release 00 aspirin 81 2018-0 [...] dinitrate 7-05 30 mg 00:00: tablet 00 Lidocaine-P Lidocaine-P Yes Tre APLIQUE Common rilocaine rilocaine Syed DIXIE (1) Sp dede [facility] SEMANA. Amlodipine Amlodipine [...] (1) St TABLETA(S[facility] SEIS HORAS VELVET NECESARIO PARA DOLOR. Acetaminoph Acetaminoph Yes Tre (Schedule Common en-Codeine en-Codeine Syed III Drug) Spirit #3 #3 TOME DIXIE - CHI (1) St TABLETA(S) [facility] SEIS HORAS VELVET NECESARIO [...] NOCHE. Medical Center Carvedilol Carvedilol Yes Tre COLIN Common Syed (1) Spirit TABLETA(S) - CH[facility] POR LA St BOCA DIXIE [facility] VEZ AL Medical TAMIKO. Center Humulin R Humulin R Yes Tre INJECT Common Syed TWELVE Spirit (12) UNITS - [facility] UNDER THE St SKIN WITH [facility] MEALS Medical DIRECTED Center AND USE SLIDING SCALE UP TO MAX DAILY DOSE OF 40 UNITS. Furosemide Furosemide Yes Tre COLIN Common Syed (1) Spirit TABLETA(S) - CHI [...] Diastolic (mm Hg) 2020-06-07 15:31:00 Mem orial Van Heart Rate 2020-06-07 15:31:00 Memorial Vladimir Respitory Rate 2020-06-07 15:31:00 Memori al Vladimir Height 2020-06-07 15:31:00 154.94 cm Memorial Van Weight 2020-06-07 15:31:00 Memorial Van BMI Calculated 2020-06-07 15:31:00 Memori al Van BP Systolic 2020-04-18 15:07:00 168 mm[Hg] BP Diastolic 2020-04-18 15:07:00 69 mm[Hg] Weight Measured 2020-04-18 15:07:00 126.80 pounds Height Measured 2020-04-18 15:07:00 63.00 inches Body Temperature 2020-04-18 15:07:00 98.30 degrees Heart Rate 2020-04-18 15:07:00 77.00 /min Respiratory Rate 2020-04-18 15:07:00 18.00 /min Systolic (mm Hg) 2020-04-05 19:29:00 [place] rial Vladimir Diastolic (mm Hg) 2020-04-05 19:29:00 Mem orial Vladimir Heart Rate 2020-04-05 19:29:00 Memorial Van Respitory Rate 2020-04-05 19:29:00 Memori al Van Systolic (mm Hg) 2020-02-23 20:37:00 [place] rial Vladimir Diastolic (mm Hg) 2020-02-23 20:37:00 Mem orial Vladimir Heart Rate 2020-02-23 20:37:00 Memorial Van Respitory Rate 2020-02-23 20:37:00 Memori al Van Temperature Oral (F) 2020-02-23 20:37:00 98.3 F Memorial Vladimir Height 2020-02-23 20:37:00 157.48 cm Memorial Vladimir Weight 2020-02-23 20:37:00 Memorial Vladimir BMI Calculated 2020-02-23 20:37:00 Memori al Van BP Systolic 2020-01-09 17:09:00 159 mm[Hg] BP Diastolic 2020-01-09 17:09:00 75 mm[Hg] Weight Measured 2020-01-09 17:09:00 132.80 pounds Height Measured 2020-01-09 17:09:00 63.00 inches Body Temperature 2020-01-09 17:09:00 98.10 degrees Heart Rate 2020-01-09 17:09:00 85.00 /min Respiratory Rate 2020-01-09 17:09:00 17.00 /min Systolic (mm Hg) 2020-01-05 20:43:00 [place] rial Van Diastolic (mm Hg) 2020-01-05 20:43:00 Mem orial Van Heart Rate 2020-01-05 20:43:00 Memorial Vladimir Respitory Rate 2020-01-05 20:43:00 Memori al Van Temperature Oral (F) 2020-01-05 20:43:00 99.1 F Memorial Vladimir Height 2020-01-05 20:43:00 160.02 cm Memorial Van Weight 2020-01-05 20:43:00 Memorial Vladimir BMI Calculated 2020-01-05 20:43:00 Memori al Van BP Systolic 2019-11-19 12:06:00 213 mm[Hg] BP [...] Diastolic (mm Hg) 2019-11-17 20:14:00 Mem orial Van Heart Rate 2019-11-17 20:14:00 Memorial Van Respitory Rate 2019-11-17 20:14:00 Memori al Vladimir Height 2019-11-17 20:14:00 160.02 cm Memorial Van Weight 2019-11-17 20:14:00 Memorial Vladimir BMI Calculated [...] Procedure Date / Time Performed Performing Clinician [facility] e REFERRAL- 2022-02-06 05:01:00 Doctor Unassigned, No Univer [facility] REQUEST/RESPONSE Name Medical Branch BKA - Below knee Memorial Karthik n amputation Plan of Care Planned Activity Planned Date Details Comments Source Goal Plan of Care Note [code = 20294-1] Goal Plan of Care Note [code = 28088-3] Goal Plan of Care Note [code = 21921-2] Goal Plan of Care Note [code = 09300-7] Goal Plan of Care Note [code = 10611-9] Goal Plan of Care Note [code = 82829-9] Goal Plan of Care Note [code = 17992-4] Goal Plan of Care Note [code = 78463-7] Goal Plan of Care Note [code = 97814-7] Goal Plan of Care Note [code = 15919-0] Goal Plan of Care Note [code = 76446-7] Goal Plan of Care Note [code = 52844-6] Goal Plan of Care Note [code = 06991-5] Goal Plan of Care Note [code = 13283-2] Goal Plan of Care Note [code = 60383-6] Goal Plan of Care Note [code = 53787-3] Goal Plan of Care Note [code = 08980-0] Goal Plan of Care Note [code = 95349-9] Goal Plan of Care Note [code = 54692-7] Goal Plan of Care Note [code = 72981-2] Goal Plan of Care Note [code = 64584-9] Goal Plan of Care Note [code = 14174-6] Goal Plan of Care Note [code = 88078-7] Goal Plan of Care Note [code = 59301-4] Goal Plan of Care Note [code = 95003-7] Goal Plan of Care Note [code = 68833-9] Goal Plan of Care Note [code = 71153-9] Goal Plan of Care Note [code = 74089-8] Goal Plan of Care Note [code = 64929-0] Goal Plan of Care Note [code = 48876-8] Goal Plan of Care Note [code = 34090-8] Goal Plan of Care Note [code = 93802-7] Goal Plan of Care Note [code = 25171-0] Goal Plan of Care Note [code = 51205-9] Goal Plan of Care Note [code = 16630-2] Goal Plan of Care Note [code = 44046-2] Goal Plan of Care Note [code = 72564-3] Goal Plan of Care Note [code = 42477-2] Goal Plan of Care Note [code = 48545-4] Goal Plan of Care Note [code = 96200-4] Goal Plan of Care Note [code = 21267-6] Goal Plan of Care Note [code = 54509-7] Goal Plan of Care Note [code = 53653-2] Goal Plan of Care Note [code = 99933-3] Goal Plan of Care Note [code = 90088-2] Goal Plan of Care Note [code = 53338-9] Goal Plan of Care Note [code = 89476-1] Goal Plan of Care Note [code = 84384-8] Goal Plan of Care Note [code = 07673-8] Goal Plan of Care Note [code = 35411-2] Goal Plan of Care Note [code = 39266-1] Goal Plan of Care Note [code = 28873-9] Goal Plan of Care Note [code = 42742-0] Goal Plan of Care Note [code = 19283-4] Goal Plan of Care Note [code = 56166-1] Goal Plan of Care Note [code = 11595-5] Goal Plan of Care Note [code = 84658-6] Goal Plan of Care Note [code = 39204-1] Goal Plan of Care Note [code = 59725-7] Goal Plan of Care Note [code = 48401-7] Goal Plan of Care Note [code = 86454-5] Goal Plan of Care Note [code = 61563-6] Goal Plan of Care Note [code = 48198-8] Goal Plan of Care Note [code = 50926-1] Goal Plan of Care Note [code = 44151-8] Goal Plan of Care Note [code = 05630-0] Goal Plan of Care Note [code = 52180-7] Goal Plan of Care Note [code = 27692-9] Goal Plan of Care Note [code = 82479-9] Goal Plan of Care Note [code = 85992-4] Goal Plan of Care Note [code = 57832-7] Goal Plan of Care Note [code = 02898-8] Goal Plan of Care Note [code = 98960-8] Goal Plan of Care Note [code = 35302-3] Goal Plan of Care Note [code = 22837-6] Goal Plan of Care Note [code = 12040-6] Goal Plan of Care Note [code = 20412-0] Goal Plan of Care Note [code = 32252-5] Goal Plan of Care Note [code = 04302-3] Goal Plan of Care Note [code = 07188-7] Goal Plan of Care Note [code = 17010-7] Goal Plan of Care Note [code = 57842-2] Goal Plan of Care Note [code = 34255-7] Goal Plan of Care Note [code = 28433-0] Goal Plan of Care Note [code = 43723-6] Goal Plan of Care Note [code = 79671-5] Goal Plan of Care Note [code = 26539-8] Goal Plan of Care Note [code = 77584-9] Goal Plan of Care Note [code = 46023-5] Goal Plan of Care Note [code = 14903-3] Goal Plan of Care Note [code = 98473-2] Goal Plan of Care Note [code = 97332-1] Goal Plan of Care Note [code = 19400-3] Goal Plan of Care Note [code = 08362-1] Goal Plan of Care Note [code = 50933-8] Goal Plan of Care Note [code = 06316-2] Goal Plan of Care Note [code = 99073-4] Goal Plan of Care Note [code = 91994-7] Goal Plan of Care Note [code = 63370-6] Goal Plan of Care Note [code = 04193-7] Goal Plan of Care Note [code = 65919-0] Goal Plan of Care Note [code = 15929-1] Goal Plan of Care Note [code = 29951-8] Goal Plan of Care Note [code = 04699-0] Goal Plan of Care Note [code = 90855-3] Goal Plan of Care Note [code = 04827-6] Goal Plan of Care Note [code = 87716-4] Goal Plan of Care Note [code = 16625-2] Goal Plan of Care Note [code = 08965-8] Goal Plan of Care Note [code = 17336-5] Goal Plan of Care Note [code = 72262-8] Goal Plan of Care Note [code = 75463-7] Goal Plan of Care Note [code = 72687-8] Goal Plan of Care Note [code = 29380-8] Goal Plan of Care Note [code = 22191-5] Goal Plan of Care Note [code = 37484-7] Goal Plan of Care Note [code = 96327-0] Goal Plan of Care Note [code = 55898-6] Goal Plan of Care Note [code = 26685-9] Goal Plan of Care Note [code = 68051-6] Goal Plan of Care Note [code = 93760-3] Goal Plan of Care Note [code = 12116-9] Goal Plan of Care Note [code = 79487-6] Goal Plan of Care Note [code = 27884-5] Goal Plan of Care Note [code = 06177-3] Goal Plan of Care Note [code = 03109-9] Goal Plan of Care Note [code = 66589-7] Goal Plan of Care Note [code = 39248-1] Goal Plan of Care Note [code = 89929-0] Goal Plan of Care Note [code = 78037-3] Goal Plan of Care Note [code = 78100-3] Goal Plan of Care Note [code = 68622-3] Goal Plan of Care Note [code = 59846-5] Goal Plan of Care Note [code = 01743-6] Goal Plan of Care Note [code = 73603-0] Goal Plan of Care Note [code = 98753-6] Goal Plan of Care Note [code = 23809-4] Goal Plan of Care Note [code = 53814-0] Goal Plan of Care Note [code = 69195-6] Goal Plan of Care Note [code = 95127-3] Goal Plan of Care Note [code = 46978-6] Goal Plan of Care Note [code = 84056-6] Goal Plan of Care Note [code = 57739-6] Goal Plan of Care Note [code = 35123-4] Goal Plan of Care Note [code = 31600-4] Goal Plan of Care Note [code = 72552-3] Goal Plan of Care Note [code = 71963-2] Goal Plan of Care Note [code = 27622-9] Goal Plan of Care Note [code = 50959-5] Goal Plan of Care Note [code = 13250-9] Goal Plan of Care Note [code = 58238-9] Goal Plan of Care Note [code = 97347-4] Goal Plan of Care Note [code = 66553-8] Goal Plan of Care Note [code = 18936-4] Goal Plan of Care Note [code = 47026-1] Goal Plan of Care Note [code = 42117-2] Goal Plan of Care Note [code = 66891-5] Goal Plan of Care Note [code = 91670-3] Goal Plan of Care Note [code = 51134-7] Goal Plan of Care Note [code = 36310-3] Goal Plan of Care Note [code = 32474-9] Goal Plan of Care Note [code = 09627-7] Goal Plan of Care Note [code = 20559-6] Goal Plan of Care Note [code = 03329-2] Goal Plan of Care Note [code = 82457-4] Goal Plan of Care Note [code = 12278-5] Goal Plan of Care Note [code = 72397-3] Goal Plan of Care Note [code = 41577-9] Goal Plan of Care Note [code = 66883-6] Goal Plan of Care Note [code = 43894-8] Goal Plan of Care Note [code = 36531-1] Goal Plan of Care Note [code = 00676-7] Goal Plan of Care Note [code = 38198-4] Goal Plan of Care Note [code = 49536-6] Goal Plan of Care Note [code = 49822-0] Goal Plan of Care Note [code = 88384-4] Goal Plan of Care Note [code = 20957-3] Goal Plan of Care Note [code = 96579-4] Goal Plan of Care Note [code = 78212-1] Goal Plan of Care Note [code = 33520-4] Goal Plan of Care Note [code = 79531-6] Goal Plan of Care Note [code = 13035-4] Goal Plan of Care Note [code = 89066-0] Goal Plan of Care Note [code = 62707-7] Goal Plan of Care Note [code = 95838-5] Goal Plan of Care Note [code = 38821-5] Goal Plan of Care Note [code = 63961-0] Goal Plan of Care Note [code = 38712-0] Goal Plan of Care Note [code = 24233-2] Goal Plan of Care Note [code = 57488-6] Goal Plan of Care Note [code = 00383-9] Goal Plan of Care Note [code = 30314-3] Goal Plan of Care Note [code = 35844-9] Goal Plan of Care Note [code = 35853-7] Goal Plan of Care Note [code = 64959-8] Goal Plan of Care Note [code = 40234-2] Goal Plan of Care Note [code = 39125-2] Goal Plan of Care Note [code = 34184-6] Goal Plan of Care Note [code = 88313-5] Goal Plan of Care Note [code = 44709-3] Goal Plan of Care Note [code = 20197-1] Goal Plan of Care Note [code = 55117-7] Goal Plan of Care Note [code = 18183-0] Goal Plan of Care Note [code = 99351-0] Goal Plan of Care Note [code = 52212-2] Goal Plan of Care Note [code = 38562-8] Goal Plan of Care Note [code = 85807-3] Goal Plan of Care Note [code = 89531-5] Goal Plan of Care Note [code = 06967-4] Goal Plan of Care Note [code = 01775-2] Goal Plan of Care Note [code = 07257-5] Goal Plan of Care Note [code = 28060-5] Goal Plan of Care Note [code = 84316-8] Goal Plan of Care Note [code = 99409-5] Goal Plan of Care Note [code = 34254-3] Goal Plan of Care Note [code = 88123-6] Goal Plan of Care Note [code = 46273-6] Goal Plan of Care Note [code = 35170-9] Goal Plan of Care Note [code = 20428-4] Goal Plan of Care Note [code = 44572-8] Goal Plan of Care Note [code = 83233-0] Goal Plan of Care Note [code = 61993-1] Goal Plan of Care Note [code = 79388-5] Goal Plan of Care Note [code = 37888-8] Goal Plan of Care Note [code = 03366-9] Goal Plan of Care Note [code = 11778-1] Goal Plan of Care Note [code = 21077-7] Goal Plan of Care Note [code = 98126-1] Goal Plan of Care Note [code = 33180-5] Goal Plan of Care Note [code = 50679-2] Goal Plan of Care Note [code = 50291-8] Encounters Start End Encounter Admission Attending Care Care Encounter Source Date/Time Date/Time Type Type Clinicians Facility Department ID 2021-07-17 Outpatient STLM STLC [id number] Common 11:09:09 [id number] [facility] 2022-08-05 2022-08-05 Outpatient SFA SFA [id number] Vincenzo 12:02:26 12:02:26 0214 F Gerardo 2022-06-28 2022-06-28 Outpatient SFA SFA [id number] Vincenzo 10:25:26 10:25:26 0107 F Gerardo 2022-06-28 2022-06-28 Outpatient [id number]- [id number] y7f61f-4 00:00:00 00:00:00 Visit 03bf-4749 3bf-4749-b -l65e-41q 74e-87ac0c b7g8124d2 8799c7 2022-05-14 2022-05-14 Outpatient SFA SFA 84112-9 022 Vincenzo 16:21:44 16:21:44 1123 F Gerardo 2022-05-14 2022-05-14 Outpatient [id number]- [id number] ir1ii0-a 00:00:00 00:00:00 Visit d93l-7764 50f-4791-b -bdf0-428 df0-428aed kwd8c936z 0i034k 2022-02-17 2022-02-17 Outpatient [id number]- [id number] 8f 04u795-6 00:00:00 00:00:00 Visit 295f-4f28 95f-4f28-a -u468-535 684-849548 059388ygd 628ede 2022-02-08 2022-02-08 Outpatient 70p19d07- [id number] b99g16-q 00:00:00 00:00:00 Visit b1d3-7db3 2q0-8ry8-6 -845f-c0a 45f-c0a5b0 0t15281n2 5231e1 2022-02-06 2022-02-06 Orders Doctor ISAIAS [id number] [facility] 00:00:00 00:00:00 Only Unassigned, HODA 350.1.13.10 ity of [facility] 4.2.7.2.686 Derek as [id number] [facility] karoline 009 [place] 2022-01-28 2022-01-28 Outpatient [id number]- [id number] 8a 233cad-b 00:00:00 00:00:00 Visit baa2-4154 aa2-4154-9 -8jq8-59c df4-54w845 665ols0r8 afe2e5 2021-12-20 2021-12-20 Outpatient [id number]- [id number] e0 995980-e 00:00:00 00:00:00 Visit q8cl-1npb 9fe-4bbf-a -f872-554 729-1757be 2ev1h0109 8u3448 2020-06-07 2020-06-08 Outpatient nullFlavo MNA [id number] Memoria 15:15:00 05:59:59 r Neurology 09 l Bonner Van 2020-06-07 2020-06-08 Outpatient nullFlavo MNA [id number] Memoria 15:15:00 05:59:59 r Neurology 09 l Bonner Vladimir 2020-06-07 2020-06-07 Outpatient SHIVAM [place] MISCHER [id number] 09:15:00 23:59:59 Shoaib 09 Graham 2020-06-07 2020-06-07 Outpatient MHIE MHIE [id number] Memoria 09:15:00 09:15:00 09 l Vladimir 2020-05-22 2020-05-22 Ambulatory nullFlavo MNA [id number] Memoria 20:45:00 20:45:00 Pre-Reg r Neurology 08 l Bonner Van 2020-05-22 2020-05-22 Ambulatory nullFlavo MNA [id number] Memoria 20:45:00 20:45:00 Pre-Reg r Neurology 08 l Bonner Van 2020-05-22 2020-05-22 Outpatient MHIE MHIE [id number] Memoria 14:45:00 14:45:00 08 giovanni Gilbert 2020-05-22 2020-05-22 [id number] 14:45:00 14:45:00 Shoaib 08 Graham 2020-04-05 2020-04-06 Outpatient nullFlavo MNA [id number] Memoria 19:00:00 04:59:59 r Neurology 07 l Georgia Gilbert 2020-04-05 2020-04-06 Outpatient nullFlavo MNA [id number] Memoria 19:00:00 04:59:59 r Neurology 07 l Georgia Gilbert 2020-04-05 2020-04-05 [facility] [id number] 14:00:00 23:59:59 Shoaib 07 Graham 2020-04-05 2020-04-05 Outpatient MHIE MHIE [id number] Memoria 14:00:00 14:00:00 07 giovanni Gilbert 2020-02-23 2020-02-24 Outpatient nullFlavo MNA [id number] Memoria 20:15:00 04:59:59 r Neurology 06 l Bonnerseveriano Gilbert 2020-02-23 2020-02-24 Outpatient nullFlavo MNA [id number] Memoria 20:15:00 04:59:59 r Neurology 06 l Bonner Vladimir 2020-02-23 2020-02-23 [facility] [id number] 15:15:00 23:59:59 Shoaib 06 Graham 2020-02-23 2020-02-23 Outpatient MHIE MHIE [id number] Memoria 15:15:00 15:15:00 06 giovanni DowneyVan 2020-01-25 2020-01-25 (TEL) STLMLC STLMLC [id number] Co mmon 00:00:00 00:00:00 [facility] 2020-01-05 2020-01-06 Outpatient nullFlavo MNA [id number] Memoria 20:15:00 04:59:59 r Neurology 05 l Georgia Van 2020-01-05 2020-01-06 Outpatient nullFlavo MNA [id number] Memoria 20:15:00 04:59:59 r Neurology 05 l Georgia Van 2020-01-05 2020-01-05 Outpatient B[facility]RA [facility] [id number] 15:15:00 23:59:59 Shoaib 05 Graham 2020-01-05 2020-01-05 Outpatient MHIE MHIE [id number] Memoria 15:15:00 15:15:00 05 giovanni Van 2019-12-29 2019-12-29 Ambulatory nullFlavo MNA [id number] Memoria 20:15:00 20:15:00 Pre-Reg r Neurology 04 l Georgia Van 2019-12-29 2019-12-29 Ambulatory nullFlavo MNA [id number] Memoria 20:15:00 20:15:00 Pre-Reg r Neurology 02 l Georgia Van 2019-12-29 2019-12-29 Ambulatory nullFlavo MNA [id number] Memoria 20:15:00 20:15:00 Pre-Reg r Neurology 02 l Georgia Van 2019-12-29 2019-12-29 Ambulatory nullFlavo MNA [id number] Memoria 20:15:00 20:15:00 Pre-Reg r Neurology 04 l Georgia Van 2019-12-29 2019-12-29 Outpatient MHIE MHIE [id number] Memoria 15:15:00 15:15:00 04 giovanni Van 2019-12-29 2019-12-29 Outpatient MHIE MHIE [id number] Memoria 15:15:00 15:15:00 02 giovanni Van 2019-12-29 2019-12-29 Outpatient [facility] [id number] 15:15:00 15:15:00 Shoaib 02 Graham 2019-12-29 2019-12-29 Outpatient [facility]RA [facility] [id number] 15:15:00 15:15:00 Shoaib 04 Graham 2019-11-23 2019-11-24 Outpatient nullFlavo MNA [id number] Memoria 18:00:00 04:59:59 r Neurology 03 l Bonnerseveriano Downeyann 2019-11-23 2019-11-24 Outpatient nullFlavo MNA [id number] Memoria 18:00:00 04:59:59 r Neurology 03 l Georgia Downeyann 2019-11-23 2019-11-23 [facility] [id number] 13:00:00 23:59:59 Shoaib 03 Graham 2019-11-23 2019-11-23 Outpatient MHIE MHIE [id number] Memoria 13:00:00 13:00:00 03 giovanni Vladimir 2019-11-17 2019-11-18 Outpatient nullFlavo MNA [id number] Memoria 20:00:00 04:59:59 r Neurology 01 l Bonner Vladimir 2019-11-17 2019-11-18 Outpatient nullFlavo MNA [id number] Memoria 20:00:00 04:59:59 r Neurology 01 l Bonner Van 2019-11-17 2019-11-17 [id number] 15:00:00 23:59:59 Shoaib 01 Graham 2019-11-17 2019-11-17 Outpatient MHIE MHIE [id number] Memoria 15:00:00 15:00:00 01 l Vladimir 2019-10-06 2019-10-06 Ambulatory nullFlavo MNA [id number] Memoria 18:30:00 18:30:00 Pre-Reg r Neurology 00 l Bonner Vladimir 2019-10-06 2019-10-06 Ambulatory nullFlavo MNA [id number] Memoria 18:30:00 18:30:00 Pre-Reg r Neurology 00 l Bonner Van 2019-10-06 2019-10-06 [facility] [id number] 13:30:00 13:30:00 Shoaib 00 Graham 2019-08-11 2019-08-11 [facility] [id number] Common 14:00:00 14:00:00 [facility] 2018-07-20 2018-07-20 Day [facility]Flavo [facility] [id number] Memoria 21:00:00 21:00:00 Surgery r Van 00 l [facility] 2018-07-20 2018-07-20 Day [facility] [id number] Memoria 21:00:00 21:00:00 Surgery r Van 00 l [facility] 2018-07-20 2018-07-20 Outpatient Remi [facility] [id number] 15:00:00 [facility] Results Test Description Test Time Test [...] FOR MOREINFORMATION , SEE CLIENT ANNOUNCEMENT AT [email or web address] RISK RATIO LDL/HDL (test code = 0.81 RATIO <3.22 UNLESS OTHERWISE INDICATED, ALL 2238) TESTING PERFORM ED ATCLINICAL PATHOLOGY [facility] [place], [facility]. [address] [place] [address] LABORATORY DIRE CTOR: ALLEY COBURN M.D. CLIA NUMBER [id number] [facility] [place]. [id number] HEMOGLOBIN [id number] 03:34:28 Test Item Value Reference Range Interpretation Comments HEMOGLOBIN A1c (test 10.4 % 4.2-5.6 H AMERIC AN DIABETES code = 45067) ASSOCIATION IDELINES FOR HGB A1C: PREDIABETES/INC REASED [...] ATE TESTING OR LABORATORY C ONSULTATION. CULTURE, [id number] 09:28:15SPECIMEN NUMBER: [id number] CULTURE, URINE SPECIMEN NUMBER: [id number] SPECIMEN COMMENT: URINE SOURCE:URINE REPORT STATUS: FINAL FINAL REPORT: 02/14/2022 <10,000 CFU/ML UROGENITAL HECTOR PRESENT NO COM MON PATHOGENS UNLESS OTHERWISE INDICATED, ALL TESTING PERFORMED [facility] [employer] [address] [place] [address] FORMS ANALYST: ALLEY COBUNR M.D. CLIA NUMBER [id number]. [id number] CULTURE, [id number] 00:00:00 Test Item Value Reference Range Interpretation Comments CULTURE, URINE (test SPECIMEN NUMBER: code = 73251) [id number] CULTURE, [id number] 00:00:00 Test Item Value Reference Range Interpretation Comments CULTURE, URINE (test SPECIMEN NUMBER: code = 88730) [id number] CULTURE, [id number] 00:00:00 Test Item Value Reference Range Interpretation Comments CULTURE, URINE (test SPECIMEN NUMBER: code = 54642) [id number] CULTURE, [id number] 00:00:00 Test Item Value Reference Range Interpretation Comments CULTURE, URINE (test SPECIMEN NUMBER: code = 95133) [id number] CULTURE, [id number] 00:00:00 Test Item Value Reference Range Interpretation Comments CULTURE, URINE (test SPECIMEN NUMBER: code = 60089) [id number] CULTURE, [id number] 00:00:00 Test Item Value Reference Range Interpretation Comments CULTURE, URINE (test SPECIMEN NUMBER: code = 73653) [id number] CULTURE, [id number] 00:00:00 Test Item Value Reference Range Interpretation Comments CULTURE, URINE (test SPECIMEN NUMBER: code = 06901) [id number] CULTURE, [id number] 00:00:00 Test Item Value Reference Range Interpretation Comments CULTURE, URINE (test SPECIMEN NUMBER: code = 11853) [id number] VITAMIN D, 25 [id number] 05:45:34 Test Item Value Reference Range Interpretation [...] . . . . NG/ML 30-100 HEMOGLOBIN [id number] 05:43:15 Test Item Value Reference Range Interpretation Comments HEMOGLOBIN A1c (test 10.5 % 4.2-5.6 H AMERIC AN DIABETES code = 49385) ASSOCIATION IDELINES FOR HGB A1C: PREDIABETES/INC REASED [...] LABORATORY C ONSULTATION. CBC W/AUTO DIFF WITH [id number] 04:31:24 Test Item Value Reference Range Interpretation [...] message] code = 1065) WBC'S The system [employer] generated this result transmitted ref erence range: [...] 0.00-0.11 UNLESS O THERWISE (test code = 12716) INDICATE D, ALL TESTING PERFORM ED ATCLINICAL PATH OLOGY LABORATORIES, [facility]. [address] [place] [id number] [place] [address] DIRECTOR: ALLEY COBURN M.D. CLIA NUMBER [id number] CAP ACCREDITATION N O. [id number] HIV 1/2 4TH GEN, RFLX [id number] 04:04:35 Test Item Value Reference Range Interpretation Comments HIV 1/2 4TH GEN, RFLX CONF (test NON-REACTIVE NON-REACTIVE code = 3514) COMPREHENSIVE METABOLIC [id number] 03:38:50 Test Item Value Reference Range Interpretation Comments GLUCOSE (test code = 134 MG/DL 70-99 H 2216) BUN (test code = 33 MG/DL 8-23 H 2207) CREATININE (test 5.01 MG/DL 0.60-1.30 H code = 221) eGFR (2020 CKD-EPI) 9 ML/MIN/1.73 >60 L (test code = 21814) CALC BUN/CREAT (test 7 RATIO 6-28 code = 2235) SODIUM (test code = 138 MEQ/L 625-107 0349) POTASSIUM (test code 4.2 MEQ/L 3.5-5.4 = [...] RATIO (test 1.5 RATIO 1.0-2.6 code = 2233) BILIRUBIN, TOTAL 0.5 MG/DL See_Comment [Automated message] [...] code = 16 U/L 5-40 2218) LIPID [id number] 03:38:50 Test Item Value Reference Range Interpretation [...] , SEE CLIENT ANNOUNCE MENT AT [email or web address] RISK RATIO LDL/HDL 0.73 RATIO <3.22 (test code = 2238) HEMOGLOBIN [id number] 00:00:00 Test Item Value Reference Range Interpretation Comments HEMOGLOBIN A1c (test code = 27545) 10.5 % HEMOGLOBIN [id number] 00:00:00 Test Item Value Reference Range Interpretation Comments HEMOGLOBIN A1c (test code = 40128) 10.5 % COMPREHENSIVE METABOLIC [id number] 00:00:00 Test Item Value Reference Range Interpretation Comments GLUCOSE (test code = 7) 134 MG/DL BUN (test code = 2208) 33 MG/DL CREATININE (test code = 2214) 5.01 MG/DL eGFR (2020 CKD-EPI) (test code 9 ML/MIN/1.73 = 73063) CALC BUN/CREAT (test code = 7 RATIO [...] code = 2219) 16 U/L COMPREHENSIVE METABOLIC [id number] 00:00:00 Test Item Value Reference Range Interpretation Comments GLUCOSE (test code = 7) 134 MG/DL BUN (test code = 2208) 33 MG/DL CREATININE (test code = 2214) 5.01 MG/DL eGFR (2020 CKD-EPI) (test code 9 ML/MIN/1.73 = 66634) CALC BUN/CREAT (test code = 7 RATIO [...] (test code = 2219) 16 U/L LIPID [id number] 00:00:00 Test Item Value Reference Range Interpretation Comments CHOLESTEROL (test code = 2210) 142 MG/DL TRIGLYCERIDES (test code = 2232) 59 MG/DL HDL CHOLESTEROL (test code = 2220) 74 MG/DL CALC LDL CHOL (test code = 2237) 54 MG/DL RISK RATIO LDL/HDL (test code = 0.73 RATIO 2238) LIPID [id number] 00:00:00 Test Item Value Reference Range Interpretation Comments CHOLESTEROL (test code = 2210) 142 MG/DL TRIGLYCERIDES (test code = 2232) 59 MG/DL HDL CHOLESTEROL (test code = 2220) 74 MG/DL CALC LDL CHOL (test code = 2237) 54 MG/DL RISK RATIO LDL/HDL (test code = 0.73 RATIO 2238) HIV AB/AG COMBO RFLX [id number] 00:00:00 Test Item Value Reference Range Interpretation Comments HIV 1/2 4TH GEN, RFLX CONF (test NON-REACTIVE code = 3514) HIV AB/AG COMBO RFLX [id number] 00:00:00 Test Item Value Reference Range Interpretation Comments HIV 1/2 4TH GEN, RFLX CONF (test NON-REACTIVE code = 3514) CBC W/AUTO [id number] 00:00:00 Test Item Value Reference Range Interpretation [...] NUCLEATED RBCS (test code = 0.00 K/UL 60899) CBC W/AUTO [id number] 00:00:00 Test Item Value Reference Range Interpretation [...] NUCLEATED RBCS (test code = 0.00 K/UL 72393) CBC W/AUTO [id number] 00:00:00 Test Item Value Reference Range Interpretation [...] NUCLEATED RBCS (test code = 0.00 K/UL 54267) VITAMIN D, 25 [id number] 00:00:00 Test Item Value Reference Range Interpretation Comments VITAMIN D, 25 OH (test code = 4958) 34 NG/ML VITAMIN D, 25 [id number] 00:00:00 Test Item Value Reference Range Interpretation Comments VITAMIN D, 25 OH (test code = 4958) 34 NG/ML HEMOGLOBIN [id number] 00:00:00 Test Item Value Reference Range Interpretation Comments HEMOGLOBIN A1c (test code = 54591) 10.5 % HEMOGLOBIN [id number] 00:00:00 Test Item Value Reference Range Interpretation Comments HEMOGLOBIN A1c (test code = 73758) 10.5 % HEMOGLOBIN [id number] 00:00:00 Test Item Value Reference Range Interpretation Comments HEMOGLOBIN A1c (test code = 27888) 10.5 % COMPREHENSIVE METABOLIC [id number] 00:00:00 Test Item Value Reference Range Interpretation Comments GLUCOSE (test code = 7) 134 MG/DL BUN (test code = 2208) 33 MG/DL CREATININE (test code = 2214) 5.01 MG/DL eGFR (2020 CKD-EPI) (test code 9 ML/MIN/1.73 = 41845) CALC BUN/CREAT (test code = 7 RATIO [...] code = 2219) 16 U/L COMPREHENSIVE METABOLIC [id number] 00:00:00 Test Item Value Reference Range Interpretation Comments GLUCOSE (test code = 2217) 134 MG/DL BUN (test code = 2208) 33 MG/DL CREATININE (test code = 2214) 5.01 MG/DL eGFR (2020 CKD-EPI) (test code 9 ML/MIN/1.73 = 93187) CALC BUN/CREAT (test code = 7 RATIO [...] (test code = 2219) 16 U/L LIPID [id number] 00:00:00 Test Item Value Reference Range Interpretation Comments CHOLESTEROL (test code = 2210) 142 MG/DL TRIGLYCERIDES (test code = 2232) 59 MG/DL HDL CHOLESTEROL (test code = 2220) 74 MG/DL CALC LDL CHOL (test code = 2237) 54 MG/DL RISK RATIO LDL/HDL (test code = 0.73 RATIO 2238) LIPID [id number] 00:00:00 Test Item Value Reference Range Interpretation Comments CHOLESTEROL (test code = 2210) 142 MG/DL TRIGLYCERIDES (test code = 2232) 59 MG/DL HDL CHOLESTEROL (test code = 2220) 74 MG/DL CALC LDL CHOL (test code = 2237) 54 MG/DL RISK RATIO LDL/HDL (test code = 0.73 RATIO 2238) HIV AB/AG COMBO RFLX [id number] 00:00:00 Test Item Value Reference Range Interpretation Comments HIV 1/2 4TH GEN, RFLX CONF (test NON-REACTIVE code = 3514) HIV AB/AG COMBO RFLX [id number] 00:00:00 Test Item Value Reference Range Interpretation Comments HIV 1/2 4TH GEN, RFLX CONF (test NON-REACTIVE code = 3514) CBC W/AUTO [id number] 00:00:00 Test Item Value Reference Range Interpretation [...] NUCLEATED RBCS (test code = 0.00 K/UL 79073) CBC W/AUTO [id number] 00:00:00 Test Item Value Reference Range Interpretation [...] NUCLEATED RBCS (test code = 0.00 K/UL 50505) CBC W/AUTO [id number] 00:00:00 Test Item Value Reference Range Interpretation [...] NUCLEATED RBCS (test code = 0.00 K/UL 44525) VITAMIN D, 25 [id number] 00:00:00 Test Item Value Reference Range Interpretation Comments VITAMIN D, 25 OH (test code = 4958) 34 NG/ML VITAMIN D, 25 [id number] 00:00:00 Test Item Value Reference Range Interpretation Comments VITAMIN D, 25 OH (test code = 4958) 34 NG/ML HEMOGLOBIN [id number] 00:00:00 Test Item Value Reference Range Interpretation Comments HEMOGLOBIN A1c (test code = 46889) 10.5 % HEMOGLOBIN [id number] 00:00:00 Test Item Value Reference Range Interpretation Comments HEMOGLOBIN A1c (test code = 67809) 10.5 % HEMOGLOBIN [id number] 00:00:00 Test Item Value Reference Range Interpretation Comments HEMOGLOBIN A1c (test code = 68090) 10.5 % COMPREHENSIVE METABOLIC [id number] 00:00:00 Test Item Value Reference Range Interpretation Comments GLUCOSE (test code = 7) 134 MG/DL BUN (test code = 2208) 33 MG/DL CREATININE (test code = 2214) 5.01 MG/DL eGFR (2020 CKD-EPI) (test code 9 ML/MIN/1.73 = 10321) CALC BUN/CREAT (test code = 7 RATIO [...] code = 2219) 16 U/L COMPREHENSIVE METABOLIC [id number] 00:00:00 Test Item Value Reference Range Interpretation Comments GLUCOSE (test code = 2217) 134 MG/DL BUN (test code = 2208) 33 MG/DL CREATININE (test code = 2214) 5.01 MG/DL eGFR (2020 CKD-EPI) (test code 9 ML/MIN/1.73 = 88051) CALC BUN/CREAT (test code = 7 RATIO [...] (test code = 2219) 16 U/L LIPID [id number] 00:00:00 Test Item Value Reference Range Interpretation Comments CHOLESTEROL (test code = 2210) 142 MG/DL TRIGLYCERIDES (test code = 2232) 59 MG/DL HDL CHOLESTEROL (test code = 2220) 74 MG/DL CALC LDL CHOL (test code = 2237) 54 MG/DL RISK RATIO LDL/HDL (test code = 0.73 RATIO 2238) LIPID [id number] 00:00:00 Test Item Value Reference Range Interpretation Comments CHOLESTEROL (test code = 2210) 142 MG/DL TRIGLYCERIDES (test code = 2232) 59 MG/DL HDL CHOLESTEROL (test code = 2220) 74 MG/DL CALC LDL CHOL (test code = 2237) 54 MG/DL RISK RATIO LDL/HDL (test code = 0.73 RATIO 2238) HIV AB/AG COMBO RFLX [id number] 00:00:00 Test Item Value Reference Range Interpretation Comments HIV 1/2 4TH GEN, RFLX CONF (test NON-REACTIVE code = 3514) HIV AB/AG COMBO RFLX [id number] 00:00:00 Test Item Value Reference Range Interpretation Comments HIV 1/2 4TH GEN, RFLX CONF (test NON-REACTIVE code = 3514) CBC W/AUTO [id number] 00:00:00 Test Item Value Reference Range Interpretation [...] NUCLEATED RBCS (test code = 0.00 K/UL 19935) CBC W/AUTO [id number] 00:00:00 Test Item Value Reference Range Interpretation [...] NUCLEATED RBCS (test code = 0.00 K/UL 86799) CBC W/AUTO [id number] 00:00:00 Test Item Value Reference Range Interpretation [...] NUCLEATED RBCS (test code = 0.00 K/UL 50926) VITAMIN D, 25 [id number] 00:00:00 Test Item Value Reference Range Interpretation Comments VITAMIN D, 25 OH (test code = 4958) 34 NG/ML VITAMIN D, 25 [id number] 00:00:00 Test Item Value Reference Range Interpretation Comments VITAMIN D, 25 OH (test code = 4958) 34 NG/ML HEMOGLOBIN [id number] 00:00:00 Test Item Value Reference Range Interpretation Comments HEMOGLOBIN A1c (test code = 30453) 10.5 % HEMOGLOBIN [id number] 00:00:00 Test Item Value Reference Range Interpretation Comments HEMOGLOBIN A1c (test code = 91423) 10.5 % HEMOGLOBIN [id number] 00:00:00 Test Item Value Reference Range Interpretation Comments HEMOGLOBIN A1c (test code = 51313) 10.5 % COMPREHENSIVE METABOLIC [id number] 00:00:00 Test Item Value Reference Range Interpretation Comments GLUCOSE (test code = 7) 134 MG/DL BUN (test code = 2208) 33 MG/DL CREATININE (test code = 2214) 5.01 MG/DL eGFR (2020 CKD-EPI) (test code 9 ML/MIN/1.73 = 09155) CALC BUN/CREAT (test code = 7 RATIO [...] code = 2219) 16 U/L COMPREHENSIVE METABOLIC [id number] 00:00:00 Test Item Value Reference Range Interpretation Comments GLUCOSE (test code = 2217) 134 MG/DL BUN (test code = 2208) 33 MG/DL CREATININE (test code = 2214) 5.01 MG/DL eGFR (2020 CKD-EPI) (test code 9 ML/MIN/1.73 = 12777) CALC BUN/CREAT (test code = 7 RATIO [...] (test code = 2219) 16 U/L LIPID [id number] 00:00:00 Test Item Value Reference Range Interpretation Comments CHOLESTEROL (test code = 2210) 142 MG/DL TRIGLYCERIDES (test code = 2232) 59 MG/DL HDL CHOLESTEROL (test code = 2220) 74 MG/DL CALC LDL CHOL (test code = 2237) 54 MG/DL RISK RATIO LDL/HDL (test code = 0.73 RATIO 2238) LIPID [id number] 00:00:00 Test Item Value Reference Range Interpretation Comments CHOLESTEROL (test code = 2210) 142 MG/DL TRIGLYCERIDES (test code = 2232) 59 MG/DL HDL CHOLESTEROL (test code = 2220) 74 MG/DL CALC LDL CHOL (test code = 2237) 54 MG/DL RISK RATIO LDL/HDL (test code = 0.73 RATIO 2238) HIV AB/AG COMBO RFLX [id number] 00:00:00 Test Item Value Reference Range Interpretation Comments HIV 1/2 4TH GEN, RFLX CONF (test NON-REACTIVE code = 3514) HIV AB/AG COMBO RFLX [id number] 00:00:00 Test Item Value Reference Range Interpretation Comments HIV 1/2 4TH GEN, RFLX CONF (test NON-REACTIVE code = 3514) CBC W/AUTO [id number] 00:00:00 Test Item Value Reference Range Interpretation [...] NUCLEATED RBCS (test code = 0.00 K/UL 27336) CBC W/AUTO [id number] 00:00:00 Test Item Value Reference Range Interpretation [...] NUCLEATED RBCS (test code = 0.00 K/UL 10911) CBC W/AUTO [id number] 00:00:00 Test Item Value Reference Range Interpretation [...] NUCLEATED RBCS (test code = 0.00 K/UL 95524) VITAMIN D, 25 [id number] 00:00:00 Test Item Value Reference Range Interpretation Comments VITAMIN D, 25 OH (test code = 4958) 34 NG/ML HEMOGLOBIN [id number] 00:00:00 Test Item Value Reference Range Interpretation Comments HEMOGLOBIN A1c (test code = 75620) 10.5 % VITAMIN D, 25 [id number] 00:00:00 Test Item Value Reference Range Interpretation Comments VITAMIN D, 25 OH (test code = 4958) 34 NG/ML VITAMIN D, 25 [id number] 00:00:00 Test Item Value Reference Range Interpretation Comments VITAMIN D, 25 OH (test code = 4958) 34 NG/ML HEMOGLOBIN [id number] 00:00:00 Test Item Value Reference Range Interpretation Comments HEMOGLOBIN A1c (test code = 89460) 10.5 % HEMOGLOBIN [id number] 00:00:00 Test Item Value Reference Range Interpretation Comments HEMOGLOBIN A1c (test code = 74360) 10.5 % HEMOGLOBIN [id number] 00:00:00 Test Item Value Reference Range Interpretation Comments HEMOGLOBIN A1c (test code = 52797) 10.5 % COMPREHENSIVE METABOLIC [id number] 00:00:00 Test Item Value Reference Range Interpretation Comments GLUCOSE (test code = 2217) 134 MG/DL BUN (test code = 2208) 33 MG/DL CREATININE (test code = 2214) 5.01 MG/DL eGFR (2020 CKD-EPI) (test code 9 ML/MIN/1.73 = 72650) CALC BUN/CREAT (test code = 7 RATIO [...] code = 2219) 16 U/L COMPREHENSIVE METABOLIC [id number] 00:00:00 Test Item Value Reference Range Interpretation Comments GLUCOSE (test code = 2217) 134 MG/DL BUN (test code = 2208) 33 MG/DL CREATININE (test code = 2214) 5.01 MG/DL eGFR (2020 CKD-EPI) (test code 9 ML/MIN/1.73 = 52606) CALC BUN/CREAT (test code = 7 RATIO [...] (test code = 2219) 16 U/L LIPID [id number] 00:00:00 Test Item Value Reference Range Interpretation Comments CHOLESTEROL (test code = 2210) 142 MG/DL TRIGLYCERIDES (test code = 2232) 59 MG/DL HDL CHOLESTEROL (test code = 2220) 74 MG/DL CALC LDL CHOL (test code = 2237) 54 MG/DL RISK RATIO LDL/HDL (test code = 0.73 RATIO 2238) LIPID [id number] 00:00:00 Test Item Value Reference Range Interpretation Comments CHOLESTEROL (test code = 2210) 142 MG/DL TRIGLYCERIDES (test code = 2232) 59 MG/DL HDL CHOLESTEROL (test code = 2220) 74 MG/DL CALC LDL CHOL (test code = 2237) 54 MG/DL RISK RATIO LDL/HDL (test code = 0.73 RATIO 2238) HIV AB/AG COMBO RFLX [id number] 00:00:00 Test Item Value Reference Range Interpretation Comments HIV 1/2 4TH GEN, RFLX CONF (test NON-REACTIVE code = 3514) HEMOGLOBIN [id number] 00:00:00 Test Item Value Reference Range Interpretation Comments HEMOGLOBIN A1c (test code = 90140) 10.5 % HIV AB/AG COMBO RFLX [id number] 00:00:00 Test Item Value Reference Range Interpretation Comments HIV 1/2 4TH GEN, RFLX CONF (test NON-REACTIVE code = 3514) CBC W/AUTO [id number] 00:00:00 Test Item Value Reference Range Interpretation [...] NUCLEATED RBCS (test code = 0.00 K/UL 09407) CBC W/AUTO [id number] 00:00:00 Test Item Value Reference Range Interpretation [...] NUCLEATED RBCS (test code = 0.00 K/UL 64874) CBC W/AUTO [id number] 00:00:00 Test Item Value Reference Range Interpretation [...] NUCLEATED RBCS (test code = 0.00 K/UL 19372) COMPREHENSIVE METABOLIC [id number] 00:00:00 Test Item Value Reference Range Interpretation Comments GLUCOSE (test code = 2217) 134 MG/DL BUN (test code = 2208) 33 MG/DL CREATININE (test code = 2214) 5.01 MG/DL eGFR (2020 CKD-EPI) (test code 9 ML/MIN/1.73 = 45714) CALC BUN/CREAT (test code = 7 RATIO [...] (test code = 2219) 16 U/L LIPID [id number] 00:00:00 Test Item Value Reference Range Interpretation Comments CHOLESTEROL (test code = 2210) 142 MG/DL TRIGLYCERIDES (test code = 2232) 59 MG/DL HDL CHOLESTEROL (test code = 2220) 74 MG/DL CALC LDL CHOL (test code = 2237) 54 MG/DL RISK RATIO LDL/HDL (test code = 0.73 RATIO 2238) HIV AB/AG COMBO RFLX [id number] 00:00:00 Test Item Value Reference Range Interpretation Comments HIV 1/2 4TH GEN, RFLX CONF (test NON-REACTIVE code = 3514) CBC W/AUTO [id number] 00:00:00 Test Item Value Reference Range Interpretation [...] NUCLEATED RBCS (test code = 0.00 K/UL 27778) CBC W/AUTO [id number] 00:00:00 Test Item Value Reference Range Interpretation [...] NUCLEATED RBCS (test code = 0.00 K/UL 07653) VITAMIN D, 25 [id number] 00:00:00 Test Item Value Reference Range Interpretation Comments VITAMIN D, 25 OH (test code = 4958) 34 NG/ML VITAMIN D, 25 [id number] 00:00:00 Test Item Value Reference Range Interpretation Comments VITAMIN D, 25 OH (test code = 4958) 34 NG/ML HEMOGLOBIN [id number] 00:00:00 Test Item Value Reference Range Interpretation Comments HEMOGLOBIN A1c (test code = 90671) 10.5 % SCR MAMM BILATERAL DAVIS CAD [id number] 13:49:46 Name: Margarita : 1960 Sex: F - SCR MAMM BILATERAL DAVIS CAD DIGITALBILATERAL DIGITAL SCREENING MAMMOGRAM 3D/2D WITH CAD: 11/16/2020LINICAL: Asymptomatic. Digital breasttomosynthesis was performed in addition to routine CC and MLO views. Current mammographic images were evaluated by [employer] CAD (computer-aided detection) software. Comparison is made [...] one year. Fish Alejandro M.D. ss/penrad:11/28/2020 13:49:46 Completion Engineer: Becka Reed MM, [facility] sent: BIRADS 1-2 Normal Mammogram BI-RADS: 2 BenignHEMOGLOBIN [id number] 00:00:00 Test Item Value Reference Range Interpretation Comments HEMOGLOBIN A1c (test code = 97315) 8.6 % HEMOGLOBIN [id number] 00:00:00 Test Item Value Reference Range Interpretation Comments HEMOGLOBIN A1c (test code = 42264) 8.6 % HEMOGLOBIN [id number] 00:00:00 Test Item Value Reference Range Interpretation Comments HEMOGLOBIN A1c (test code = 66829) 8.6 % HEMOGLOBIN [id number] 00:00:00 Test Item Value Reference Range Interpretation Comments HEMOGLOBIN A1c (test code = 65180) 8.6 % HEMOGLOBIN [id number] 00:00:00 Test Item Value Reference Range Interpretation Comments HEMOGLOBIN A1c (test code = 03526) 8.6 % HEMOGLOBIN [id number] 00:00:00 Test Item Value Reference Range Interpretation Comments HEMOGLOBIN A1c (test code = 60548) 8.6 % HEMOGLOBIN [id number] 00:00:00 Test Item Value Reference Range Interpretation Comments HEMOGLOBIN A1c (test code = 51132) 8.6 % HEMOGLOBIN [id number] 00:00:00 Test Item Value Reference Range Interpretation Comments HEMOGLOBIN A1c (test code = 20778) 8.6 % HEMOGLOBIN [id number] 00:00:00 Test Item Value Reference Range Interpretation Comments HEMOGLOBIN A1c (test code = 52034) 8.6 % HEMOGLOBIN [id number] 00:00:00 Test Item Value Reference Range Interpretation Comments HEMOGLOBIN A1c (test code = 90693) 8.6 % HEMOGLOBIN [id number] 00:00:00 Test Item Value Reference Range Interpretation Comments HEMOGLOBIN A1c (test code = 31942) 8.6 % HEMOGLOBIN [id number] 00:00:00 Test Item Value Reference Range Interpretation Comments HEMOGLOBIN A1c (test code = 71233) 8.6 % HEMOGLOBIN [id number] 00:00:00 Test Item Value Reference Range Interpretation Comments HEMOGLOBIN A1c (test code = 21518) 8.6 % HEMOGLOBIN [id number] 00:00:00 Test Item Value Reference Range Interpretation Comments HEMOGLOBIN A1c (test code = 30551) 8.6 % HEMOGLOBIN [id number] 00:00:00 Test Item Value Reference Range Interpretation Comments HEMOGLOBIN A1c (test code = 86458) 8.6 % HEMOGLOBIN [id number] 00:00:00 Test Item Value Reference Range Interpretation Comments HEMOGLOBIN A1c (test code = 59334) 8.6 % HEMOGLOBIN [id number] 00:00:00 Test Item Value Reference Range Interpretation Comments HEMOGLOBIN A1c (test code = 25521) 8.6 % HEMOGLOBIN [id number] 00:00:00 Test Item Value Reference Range Interpretation Comments HEMOGLOBIN A1c (test code = 37797) 8.5 % HEMOGLOBIN [id number] 00:00:00 Test Item Value Reference Range Interpretation Comments HEMOGLOBIN A1c (test code = 85661) 8.5 % HEMOGLOBIN [id number] 00:00:00 Test Item Value Reference Range Interpretation Comments HEMOGLOBIN A1c (test code = 81288) 8.5 % LIPID [id number] 00:00:00 Test Item Value Reference Range Interpretation Comments CHOLESTEROL (test code = 2210) 186 MG/DL TRIGLYCERIDES (test code = 2232) 88 MG/DL HDL CHOLESTEROL (test code = 2220) 80 MG/DL CALC LDL CHOL (test code = 2237) 88 MG/DL RISK RATIO LDL/HDL (test code = 1.10 RATIO 2238) LIPID [id number] 00:00:00 Test Item Value Reference Range Interpretation Comments CHOLESTEROL (test code = 2210) 186 MG/DL TRIGLYCERIDES (test code = 2232) 88 MG/DL HDL CHOLESTEROL (test code = 2220) 80 MG/DL CALC LDL CHOL (test code = 2237) 88 MG/DL RISK RATIO LDL/HDL (test code = 1.10 RATIO 2238) COMPREHENSIVE METABOLIC [id number] 00:00:00 Test Item Value Reference Range Interpretation Comments GLUCOSE (test code = 2217) 300 MG/DL BUN (test code = 2208) 19 MG/DL CREATININE (test code = 2214) 4.15 MG/DL eGFR AMER. (test code 13 ML/MIN/1.73 = 86414) eGFR NON- AMER. (test 11 ML/MIN/1.73 code = 64760) CALC BUN/CREAT (test code = 5 RATIO [...] code = 2219) 13 U/L COMPREHENSIVE METABOLIC [id number] 00:00:00 Test Item Value Reference Range Interpretation Comments GLUCOSE (test code = 2217) 300 MG/DL BUN (test code = 2208) 19 MG/DL CREATININE (test code = 2214) 4.15 MG/DL eGFR AMER. (test code 13 ML/MIN/1.73 = 65551) eGFR NON- AMER. (test 11 ML/MIN/1.73 code = 24978) CALC BUN/CREAT (test code = 5 RATIO [...] ALT (test code = 2219) 13 U/L [id number] 00:00:00 Test Item Value Reference Range Interpretation Comments TSH, THIRD GENERATION (test code 0.661 UIU/ML = 2821) [id number] 00:00:00 Test Item Value Reference Range Interpretation Comments TSH, THIRD GENERATION (test code 0.661 UIU/ML = 2821) [id number] 00:00:00 Test Item Value Reference Range Interpretation Comments TSH, THIRD GENERATION (test code 0.661 UIU/ML = 2821) CBC W/AUTO [id number] 00:00:00 Test Item Value Reference Range Interpretation [...] code = 1015) 166 K/UL CBC W/AUTO [id number] 00:00:00 Test Item Value Reference Range Interpretation [...] code = 1015) 166 K/UL CBC W/AUTO [id number] 00:00:00 Test Item Value Reference Range Interpretation [...] (test code = 1015) 166 K/UL HEMOGLOBIN [id number] 00:00:00 Test Item Value Reference Range Interpretation Comments HEMOGLOBIN A1c (test code = 06154) 8.5 % HEMOGLOBIN [id number] 00:00:00 Test Item Value Reference Range Interpretation Comments HEMOGLOBIN A1c (test code = 72964) 8.5 % HEMOGLOBIN [id number] 00:00:00 Test Item Value Reference Range Interpretation Comments HEMOGLOBIN A1c (test code = 01977) 8.5 % LIPID [id number] 00:00:00 Test Item Value Reference Range Interpretation Comments CHOLESTEROL (test code = 2210) 186 MG/DL TRIGLYCERIDES (test code = 2232) 88 MG/DL HDL CHOLESTEROL (test code = 2220) 80 MG/DL CALC LDL CHOL (test code = 2237) 88 MG/DL RISK RATIO LDL/HDL (test code = 1.10 RATIO 2238) LIPID [id number] 00:00:00 Test Item Value Reference Range Interpretation Comments CHOLESTEROL (test code = 2210) 186 MG/DL TRIGLYCERIDES (test code = 2232) 88 MG/DL HDL CHOLESTEROL (test code = 2220) 80 MG/DL CALC LDL CHOL (test code = 2237) 88 MG/DL RISK RATIO LDL/HDL (test code = 1.10 RATIO 2238) COMPREHENSIVE METABOLIC [id number] 00:00:00 Test Item Value Reference Range Interpretation Comments GLUCOSE (test code = 2217) 300 MG/DL BUN (test code = 2208) 19 MG/DL CREATININE (test code = 2214) 4.15 MG/DL eGFR AMER. (test code 13 ML/MIN/1.73 = 80409) eGFR NON- AMER. (test 11 ML/MIN/1.73 code = 19479) CALC BUN/CREAT (test code = 5 RATIO [...] code = 2219) 13 U/L COMPREHENSIVE METABOLIC [id number] 00:00:00 Test Item Value Reference Range Interpretation Comments GLUCOSE (test code = 2217) 300 MG/DL BUN (test code = 2208) 19 MG/DL CREATININE (test code = 2214) 4.15 MG/DL eGFR AMER. (test code 13 ML/MIN/1.73 = 93600) eGFR NON- AMER. (test 11 ML/MIN/1.73 code = 33885) CALC BUN/CREAT (test code = 5 RATIO [...] ALT (test code = 2219) 13 U/L [id number] 00:00:00 Test Item Value Reference Range Interpretation Comments TSH, THIRD GENERATION (test code 0.661 UIU/ML = 2821) [id number] 00:00:00 Test Item Value Reference Range Interpretation Comments TSH, THIRD GENERATION (test code 0.661 UIU/ML = 2821) [id number] 00:00:00 Test Item Value Reference Range Interpretation Comments TSH, THIRD GENERATION (test code 0.661 UIU/ML = 2821) CBC W/AUTO [id number] 00:00:00 Test Item Value Reference Range Interpretation [...] code = 1015) 166 K/UL CBC W/AUTO [id number] 00:00:00 Test Item Value Reference Range Interpretation [...] code = 1015) 166 K/UL CBC W/AUTO [id number] 00:00:00 Test Item Value Reference Range Interpretation [...] (test code = 1015) 166 K/UL HEMOGLOBIN [id number] 00:00:00 Test Item Value Reference Range Interpretation Comments HEMOGLOBIN A1c (test code = 56500) 8.5 % HEMOGLOBIN [id number] 00:00:00 Test Item Value Reference Range Interpretation Comments HEMOGLOBIN A1c (test code = 33670) 8.5 % HEMOGLOBIN [id number] 00:00:00 Test Item Value Reference Range Interpretation Comments HEMOGLOBIN A1c (test code = 87587) 8.5 % LIPID [id number] 00:00:00 Test Item Value Reference Range Interpretation Comments CHOLESTEROL (test code = 2210) 186 MG/DL TRIGLYCERIDES (test code = 2232) 88 MG/DL HDL CHOLESTEROL (test code = 2220) 80 MG/DL CALC LDL CHOL (test code = 2237) 88 MG/DL RISK RATIO LDL/HDL (test code = 1.10 RATIO 2238) LIPID [id number] 00:00:00 Test Item Value Reference Range Interpretation Comments CHOLESTEROL (test code = 2210) 186 MG/DL TRIGLYCERIDES (test code = 2232) 88 MG/DL HDL CHOLESTEROL (test code = 2220) 80 MG/DL CALC LDL CHOL (test code = 2237) 88 MG/DL RISK RATIO LDL/HDL (test code = 1.10 RATIO 2238) COMPREHENSIVE METABOLIC [id number] 00:00:00 Test Item Value Reference Range Interpretation Comments GLUCOSE (test code = 2217) 300 MG/DL BUN (test code = 2208) 19 MG/DL CREATININE (test code = 2214) 4.15 MG/DL eGFR AMER. (test code 13 ML/MIN/1.73 = 65146) eGFR NON- AMER. (test 11 ML/MIN/1.73 code = 46141) CALC BUN/CREAT (test code = 5 RATIO [...] code = 2219) 13 U/L COMPREHENSIVE METABOLIC [id number] 00:00:00 Test Item Value Reference Range Interpretation Comments GLUCOSE (test code = 2217) 300 MG/DL BUN (test code = 2208) 19 MG/DL CREATININE (test code = 2214) 4.15 MG/DL eGFR AMER. (test code 13 ML/MIN/1.73 = 61894) eGFR NON- AMER. (test 11 ML/MIN/1.73 code = 41554) CALC BUN/CREAT (test code = 5 RATIO 2234) SODIUM (test code = 2231) 136 MEQ/L [...] ALT (test code = 2219) 13 U/L [id number] 00:00:00 Test Item Value Reference Range Interpretation Comments TSH, THIRD GENERATION (test code 0.661 UIU/ML = 2821) [id number] 00:00:00 Test Item Value Reference Range Interpretation Comments TSH, THIRD GENERATION (test code 0.661 UIU/ML = 2821) [id number] 00:00:00 Test Item Value Reference Range Interpretation Comments TSH, THIRD GENERATION (test code 0.661 UIU/ML = 2821) CBC W/AUTO [id number] 00:00:00 Test Item Value Reference Range Interpretation [...] code = 1015) 166 K/UL CBC W/AUTO [id number] 00:00:00 Test Item Value Reference Range Interpretation [...] code = 1015) 166 K/UL CBC W/AUTO [id number] 00:00:00 Test Item Value Reference Range Interpretation [...] (test code = 1015) 166 K/UL HEMOGLOBIN [id number] 00:00:00 Test Item Value Reference Range Interpretation Comments HEMOGLOBIN A1c (test code = 33967) 8.5 % HEMOGLOBIN [id number] 00:00:00 Test Item Value Reference Range Interpretation Comments HEMOGLOBIN A1c (test code = 81551) 8.5 % HEMOGLOBIN [id number] 00:00:00 Test Item Value Reference Range Interpretation Comments HEMOGLOBIN A1c (test code = 56085) 8.5 % LIPID [id number] 00:00:00 Test Item Value Reference Range Interpretation Comments CHOLESTEROL (test code = 2210) 186 MG/DL TRIGLYCERIDES (test code = 2232) 88 MG/DL HDL CHOLESTEROL (test code = 2220) 80 MG/DL CALC LDL CHOL (test code = 2237) 88 MG/DL RISK RATIO LDL/HDL (test code = 1.10 RATIO 2238) LIPID [id number] 00:00:00 Test Item Value Reference Range Interpretation Comments CHOLESTEROL (test code = 2210) 186 MG/DL TRIGLYCERIDES (test code = 2232) 88 MG/DL HDL CHOLESTEROL (test code = 2220) 80 MG/DL CALC LDL CHOL (test code = 2237) 88 MG/DL RISK RATIO LDL/HDL (test code = 1.10 RATIO 2238) COMPREHENSIVE METABOLIC [id number] 00:00:00 Test Item Value Reference Range Interpretation Comments GLUCOSE (test code = 2217) 300 MG/DL BUN (test code = 2208) 19 MG/DL CREATININE (test code = 2214) 4.15 MG/DL eGFR AMER. (test code 13 ML/MIN/1.73 = 37756) eGFR NON- AMER. (test 11 ML/MIN/1.73 code = 58724) CALC BUN/CREAT (test code = 5 RATIO [...] code = 2219) 13 U/L COMPREHENSIVE METABOLIC [id number] 00:00:00 Test Item Value Reference Range Interpretation Comments GLUCOSE (test code = 2217) 300 MG/DL BUN (test code = 2208) 19 MG/DL CREATININE (test code = 2214) 4.15 MG/DL eGFR AMER. (test code 13 ML/MIN/1.73 = 71197) eGFR NON- AMER. (test 11 ML/MIN/1.73 code = 16420) CALC BUN/CREAT (test code = 5 RATIO [...] ALT (test code = 2219) 13 U/L [id number] 00:00:00 Test Item Value Reference Range Interpretation Comments TSH, THIRD GENERATION (test code 0.661 UIU/ML = 2821) [id number] 00:00:00 Test Item Value Reference Range Interpretation Comments TSH, THIRD GENERATION (test code 0.661 UIU/ML = 2821) [id number] 00:00:00 Test Item Value Reference Range Interpretation Comments TSH, THIRD GENERATION (test code 0.661 UIU/ML = 2821) CBC W/AUTO [id number] 00:00:00 Test Item Value Reference Range Interpretation [...] code = 1015) 166 K/UL CBC W/AUTO [id number] 00:00:00 Test Item Value Reference Range Interpretation [...] (test code = 1015) 166 K/UL HEMOGLOBIN [id number] 00:00:00 Test Item Value Reference Range Interpretation Comments HEMOGLOBIN A1c (test code = 53919) 8.5 % CBC W/AUTO [id number] 00:00:00 Test Item Value Reference Range Interpretation [...] code = 1015) 166 K/UL CBC W/AUTO [id number] 00:00:00 Test Item Value Reference Range Interpretation [...] code = 1015) 166 K/UL CBC W/AUTO [id number] 00:00:00 Test Item Value Reference Range Interpretation [...] (test code = 1015) 166 K/UL HEMOGLOBIN [id number] 00:00:00 Test Item Value Reference Range Interpretation Comments HEMOGLOBIN A1c (test code = 56139) 8.5 % HEMOGLOBIN [id number] 00:00:00 Test Item Value Reference Range Interpretation Comments HEMOGLOBIN A1c (test code = 97730) 8.5 % HEMOGLOBIN [id number] 00:00:00 Test Item Value Reference Range Interpretation Comments HEMOGLOBIN A1c (test code = 60905) 8.5 % LIPID [id number] 00:00:00 Test Item Value Reference Range Interpretation Comments CHOLESTEROL (test code = 2210) 186 MG/DL TRIGLYCERIDES (test code = 2232) 88 MG/DL HDL CHOLESTEROL (test code = 2220) 80 MG/DL CALC LDL CHOL (test code = 2237) 88 MG/DL RISK RATIO LDL/HDL (test code = 1.10 RATIO 2238) LIPID [id number] 00:00:00 Test Item Value Reference Range Interpretation Comments CHOLESTEROL (test code = 2210) 186 MG/DL TRIGLYCERIDES (test code = 2232) 88 MG/DL HDL CHOLESTEROL (test code = 2220) 80 MG/DL CALC LDL CHOL (test code = 2237) 88 MG/DL RISK RATIO LDL/HDL (test code = 1.10 RATIO 2238) HEMOGLOBIN [id number] 00:00:00 Test Item Value Reference Range Interpretation Comments HEMOGLOBIN A1c (test code = 75120) 8.5 % COMPREHENSIVE METABOLIC [id number] 00:00:00 Test Item Value Reference Range Interpretation Comments GLUCOSE (test code = 2217) 300 MG/DL BUN (test code = 2208) 19 MG/DL CREATININE (test code = 2214) 4.15 MG/DL eGFR AMER. (test code 13 ML/MIN/1.73 = 83465) eGFR NON- AMER. (test 11 ML/MIN/1.73 code = 70931) CALC BUN/CREAT (test code = 5 RATIO [...] code = 2219) 13 U/L COMPREHENSIVE METABOLIC [id number] 00:00:00 Test Item Value Reference Range Interpretation Comments GLUCOSE (test code = 2217) 300 MG/DL BUN (test code = 2208) 19 MG/DL CREATININE (test code = 2214) 4.15 MG/DL eGFR AMER. (test code 13 ML/MIN/1.73 = 30687) eGFR NON- AMER. (test 11 ML/MIN/1.73 code = 26806) CALC BUN/CREAT (test code = 5 RATIO [...] ALT (test code = 2219) 13 U/L [id number] 00:00:00 Test Item Value Reference Range Interpretation Comments TSH, THIRD GENERATION (test code 0.661 UIU/ML = 2821) [id number] 00:00:00 Test Item Value Reference Range Interpretation Comments TSH, THIRD GENERATION (test code 0.661 UIU/ML = 2821) [id number] 00:00:00 Test Item Value Reference Range Interpretation Comments TSH, THIRD GENERATION (test code 0.661 UIU/ML = 2821) LIPID [id number] 00:00:00 Test Item Value Reference Range Interpretation Comments CHOLESTEROL (test code = 2210) 186 MG/DL TRIGLYCERIDES (test code = 2232) 88 MG/DL HDL CHOLESTEROL (test code = 2220) 80 MG/DL CALC LDL CHOL (test code = 2237) 88 MG/DL RISK RATIO LDL/HDL (test code = 1.10 RATIO 2238) COMPREHENSIVE METABOLIC [id number] 00:00:00 Test Item Value Reference Range Interpretation Comments GLUCOSE (test code = 2217) 300 MG/DL BUN (test code = 2208) 19 MG/DL CREATININE (test code = 2214) 4.15 MG/DL eGFR AMER. (test code 13 ML/MIN/1.73 = 30738) eGFR NON- AMER. (test 11 ML/MIN/1.73 code = 66318) CALC BUN/CREAT (test code = 5 RATIO [...] ALT (test code = 2219) 13 U/L [id number] 00:00:00 Test Item Value Reference Range Interpretation Comments TSH, THIRD GENERATION (test code 0.661 UIU/ML = 2821) [id number] 00:00:00 Test Item Value Reference Range Interpretation Comments TSH, THIRD GENERATION (test code 0.661 UIU/ML = 2821) CBC W/AUTO [id number] 00:00:00 Test Item Value Reference Range Interpretation [...] code = 1015) 166 K/UL CBC W/AUTO [id number] 00:00:00 Test Item Value Reference Range Interpretation [...] code = 1015) 166 K/UL CBC W/AUTO [id number] 00:00:00 Test Item Value Reference Range Interpretation [...] COUNT (test code = 1015) 166 K/UL COMPREHENSIVE METABOLIC [id number] 00:00:00 Test Item Value Reference Range Interpretation Comments GLUCOSE (test code = 2217) 154 MG/DL BUN (test code = 2208) 44 MG/DL CREATININE (test code = 2214) 5.28 MG/DL eGFR AMER. (test code = 9 ML/MIN/1.73 59491) eGFR NON- AMER. (test 8 ML/MIN/1.73 code = 72576) CALC BUN/CREAT (test code = 8 RATIO [...] code = 2219) 16 U/L COMPREHENSIVE METABOLIC [id number] 00:00:00 Test Item Value Reference Range Interpretation Comments GLUCOSE (test code = 2217) 154 MG/DL BUN (test code = 2208) 44 MG/DL CREATININE (test code = 2214) 5.28 MG/DL eGFR AMER. (test code = 9 ML/MIN/1.73 50897) eGFR NON- AMER. (test 8 ML/MIN/1.73 code = 81744) CALC BUN/CREAT (test code = 8 RATIO [...] ALT (test code = 2219) 16 U/L [id number] 00:00:00 Test Item Value Reference Range Interpretation Comments TSH, THIRD GENERATION (test code 0.749 UIU/ML = 2821) [id number] 00:00:00 Test Item Value Reference Range Interpretation Comments TSH, THIRD GENERATION (test code 0.749 UIU/ML = 2821) [id number] 00:00:00 Test Item Value Reference Range Interpretation Comments TSH, THIRD GENERATION (test code 0.749 UIU/ML = 2821) HEMOGLOBIN [id number] 00:00:00 Test Item Value Reference Range Interpretation Comments HEMOGLOBIN A1c (test code = 73199) 8.2 % HEMOGLOBIN [id number] 00:00:00 Test Item Value Reference Range Interpretation Comments HEMOGLOBIN A1c (test code = 12529) 8.2 % HEMOGLOBIN [id number] 00:00:00 Test Item Value Reference Range Interpretation Comments HEMOGLOBIN A1c (test code = 57701) 8.2 % COMPREHENSIVE METABOLIC [id number] 00:00:00 Test Item Value Reference Range Interpretation Comments GLUCOSE (test code = 2217) 154 MG/DL BUN (test code = 2208) 44 MG/DL CREATININE (test code = 2214) 5.28 MG/DL eGFR AMER. (test code = 9 ML/MIN/1.73 24914) eGFR NON- AMER. (test 8 ML/MIN/1.73 code = 00832) CALC BUN/CREAT (test code = 8 RATIO [...] BILIRUBIN, TOTAL (test code = 0.2 MG/DL 220) ALKALINE PHOSPHATASE (test code 145 U/L = 2204) AST (test code = 2218) 24 U/L ALT (test code = 2219) 16 U/L COMPREHENSIVE METABOLIC [id number] 00:00:00 Test Item Value Reference Range Interpretation Comments GLUCOSE (test code = 2217) 154 MG/DL BUN (test code = 2208) 44 MG/DL CREATININE (test code = 2214) 5.28 MG/DL eGFR AMER. (test code = 9 ML/MIN/1.73 18883) eGFR NON- AMER. (test 8 ML/MIN/1.73 code = 27699) CALC BUN/CREAT (test code = 8 RATIO 2235) SODIUM (test code = 2231) 141 MEQ/L POTASSIUM (test code = 2228) 4.8 MEQ/L CHLORIDE (test code = 2215) 99 MEQ/L CARBON DIOXIDE (test code = 23 MEQ/L 6) CALCIUM (test code = 2209) 9.0 MG/DL [...] ALT (test code = 2219) 16 U/L [id number] 00:00:00 Test Item Value Reference Range Interpretation Comments TSH, THIRD GENERATION (test code 0.749 UIU/ML = 2821) [id number] 00:00:00 Test Item Value Reference Range Interpretation Comments TSH, THIRD GENERATION (test code 0.749 UIU/ML = 2821) [id number] 00:00:00 Test Item Value Reference Range Interpretation Comments TSH, THIRD GENERATION (test code 0.749 UIU/ML = 2821) HEMOGLOBIN [id number] 00:00:00 Test Item Value Reference Range Interpretation Comments HEMOGLOBIN A1c (test code = 81493) 8.2 % HEMOGLOBIN [id number] 00:00:00 Test Item Value Reference Range Interpretation Comments HEMOGLOBIN A1c (test code = 42741) 8.2 % HEMOGLOBIN [id number] 00:00:00 Test Item Value Reference Range Interpretation Comments HEMOGLOBIN A1c (test code = 77865) 8.2 % COMPREHENSIVE METABOLIC [id number] 00:00:00 Test Item Value Reference Range Interpretation Comments GLUCOSE (test code = 2217) 154 MG/DL BUN (test code = 2208) 44 MG/DL CREATININE (test code = 2214) 5.28 MG/DL eGFR AMER. (test code = 9 ML/MIN/1.73 50082) eGFR NON- AMER. (test 8 ML/MIN/1.73 code = 54368) CALC BUN/CREAT (test code = 8 RATIO [...] code = 2219) 16 U/L COMPREHENSIVE METABOLIC [id number] 00:00:00 Test Item Value Reference Range Interpretation Comments GLUCOSE (test code = 2217) 154 MG/DL BUN (test code = 2208) 44 MG/DL CREATININE (test code = 2214) 5.28 MG/DL eGFR AMER. (test code = 9 ML/MIN/1.73 48750) eGFR NON- AMER. (test 8 ML/MIN/1.73 code = 65167) CALC BUN/CREAT (test code = 8 RATIO [...] 2218) 24 U/L ALT (test code = 221) 16 U/L [id number] 00:00:00 Test Item Value Reference Range Interpretation Comments TSH, THIRD GENERATION (test code 0.749 UIU/ML = 2821) [id number] 00:00:00 Test Item Value Reference Range Interpretation Comments TSH, THIRD GENERATION (test code 0.749 UIU/ML = 2821) [id number] 00:00:00 Test Item Value Reference Range Interpretation Comments TSH, THIRD GENERATION (test code 0.749 UIU/ML = 2821) HEMOGLOBIN [id number] 00:00:00 Test Item Value Reference Range Interpretation Comments HEMOGLOBIN A1c (test code = 47805) 8.2 % HEMOGLOBIN [id number] 00:00:00 Test Item Value Reference Range Interpretation Comments HEMOGLOBIN A1c (test code = 82627) 8.2 % HEMOGLOBIN [id number] 00:00:00 Test Item Value Reference Range Interpretation Comments HEMOGLOBIN A1c (test code = 69551) 8.2 % COMPREHENSIVE METABOLIC [id number] 00:00:00 Test Item Value Reference Range Interpretation Comments GLUCOSE (test code = 2217) 154 MG/DL BUN (test code = 2208) 44 MG/DL CREATININE (test code = 2214) 5.28 MG/DL eGFR AMER. (test code = 9 ML/MIN/1.73 76100) eGFR NON- AMER. (test 8 ML/MIN/1.73 code = 22812) CALC BUN/CREAT (test code = 8 RATIO [...] code = 2219) 16 U/L COMPREHENSIVE METABOLIC [id number] 00:00:00 Test Item Value Reference Range Interpretation Comments GLUCOSE (test code = 2217) 154 MG/DL BUN (test code = 2208) 44 MG/DL CREATININE (test code = 2214) 5.28 MG/DL eGFR AMER. (test code = 9 ML/MIN/1.73 21011) eGFR NON- AMER. (test 8 ML/MIN/1.73 code = 26417) CALC BUN/CREAT (test code = 8 RATIO [...] ALT (test code = 2219) 16 U/L [id number] 00:00:00 Test Item Value Reference Range Interpretation Comments TSH, THIRD GENERATION (test code 0.749 UIU/ML = 2821) [id number] 00:00:00 Test Item Value Reference Range Interpretation Comments TSH, THIRD GENERATION (test code 0.749 UIU/ML = 2821) [id number] 00:00:00 Test Item Value Reference Range Interpretation Comments TSH, THIRD GENERATION (test code 0.749 UIU/ML = 2821) HEMOGLOBIN [id number] 00:00:00 Test Item Value Reference Range Interpretation Comments HEMOGLOBIN A1c (test code = 15686) 8.2 % HEMOGLOBIN [id number] 00:00:00 Test Item Value Reference Range Interpretation Comments HEMOGLOBIN A1c (test code = 87963) 8.2 % HEMOGLOBIN [id number] 00:00:00 Test Item Value Reference Range Interpretation Comments HEMOGLOBIN A1c (test code = 98618) 8.2 % HEMOGLOBIN [id number] 00:00:00 Test Item Value Reference Range Interpretation Comments HEMOGLOBIN A1c (test code = 28970) 8.2 % HEMOGLOBIN [id number] 00:00:00 Test Item Value Reference Range Interpretation Comments HEMOGLOBIN A1c (test code = 28833) 8.2 % COMPREHENSIVE METABOLIC [id number] 00:00:00 Test Item Value Reference Range Interpretation Comments GLUCOSE (test code = 2217) 154 MG/DL BUN (test code = 2208) 44 MG/DL CREATININE (test code = 2214) 5.28 MG/DL eGFR AMER. (test code = 9 ML/MIN/1.73 33642) eGFR NON- AMER. (test 8 ML/MIN/1.73 code = 57739) CALC BUN/CREAT (test code = 8 RATIO [...] code = 2219) 16 U/L COMPREHENSIVE METABOLIC [id number] 00:00:00 Test Item Value Reference Range Interpretation Comments GLUCOSE (test code = 2217) 154 MG/DL BUN (test code = 2208) 44 MG/DL CREATININE (test code = 2214) 5.28 MG/DL eGFR AMER. (test code = 9 ML/MIN/1.73 49442) eGFR NON- AMER. (test 8 ML/MIN/1.73 code = 34822) CALC BUN/CREAT (test code = 8 RATIO [...] ALT (test code = 2219) 16 U/L [id number] 00:00:00 Test Item Value Reference Range Interpretation Comments TSH, THIRD GENERATION (test code 0.749 UIU/ML = 2821) [id number] 00:00:00 Test Item Value Reference Range Interpretation Comments TSH, THIRD GENERATION (test code 0.749 UIU/ML = 2821) [id number] 00:00:00 Test Item Value Reference Range Interpretation Comments TSH, THIRD GENERATION (test code 0.749 UIU/ML = 2821) COMPREHENSIVE METABOLIC [id number] 00:00:00 Test Item Value Reference Range Interpretation Comments GLUCOSE (test code = 2217) 154 MG/DL BUN (test code = 2208) 44 MG/DL CREATININE (test code = 2214) 5.28 MG/DL eGFR AMER. (test code = 9 ML/MIN/1.73 46024) eGFR NON- AMER. (test 8 ML/MIN/1.73 code = 69123) CALC BUN/CREAT (test code = 8 RATIO [...] ALT (test code = 2219) 16 U/L [id number] 00:00:00 Test Item Value Reference Range Interpretation Comments TSH, THIRD GENERATION (test code 0.749 UIU/ML = 2821) [id number] 00:00:00 Test Item Value Reference Range Interpretation Comments TSH, THIRD GENERATION (test code 0.749 UIU/ML = 2821) HEMOGLOBIN [id number] 00:00:00 Test Item Value Reference Range Interpretation Comments HEMOGLOBIN A1c (test code = 99149) 8.2 % HEMOGLOBIN [id number] 00:00:00 Test Item Value Reference Range Interpretation Comments HEMOGLOBIN A1c (test code = 65895) 8.2 % HEMOGLOBIN [id number] 00:00:00 Test Item Value Reference Range Interpretation Comments HEMOGLOBIN A1c (test code = 73670) 8.2 % HEMOGLOBIN [id number] 00:00:00 Test Item Value Reference Range Interpretation Comments HEMOGLOBIN A1c (test code = 67923) 8.7 % HEMOGLOBIN [id number] 00:00:00 Test Item Value Reference Range Interpretation Comments HEMOGLOBIN A1c (test code = 60875) 8.7 % COMPREHENSIVE METABOLIC [id number] 00:00:00 Test Item Value Reference Range Interpretation Comments GLUCOSE (test code = 2217) 229 MG/DL BUN (test code = 2208) 30 MG/DL CREATININE (test code = 2214) 4.17 MG/DL eGFR AMER. (test code 13 ML/MIN/1.73 = 80690) eGFR NON- AMER. (test 11 ML/MIN/1.73 code = 46245) CALC BUN/CREAT (test code = 7 RATIO [...] code = 2219) 10 U/L COMPREHENSIVE METABOLIC [id number] 00:00:00 Test Item Value Reference Range Interpretation Comments GLUCOSE (test code = 2217) 229 MG/DL BUN (test code = 2208) 30 MG/DL CREATININE (test code = 2214) 4.17 MG/DL eGFR AMER. (test code 13 ML/MIN/1.73 = 33906) eGFR NON- AMER. (test 11 ML/MIN/1.73 code = 66917) CALC BUN/CREAT (test code = 7 RATIO [...] code = 2219) 10 U/L CBC W/AUTO [id number] 00:00:00 Test Item Value Reference Range Interpretation [...] code = 1015) 187 K/UL CBC W/AUTO [id number] 00:00:00 Test Item Value Reference Range Interpretation [...] code = 1015) 187 K/UL CBC W/AUTO [id number] 00:00:00 Test Item Value Reference Range Interpretation [...] (test code = 1015) 187 K/UL HEMOGLOBIN [id number] 00:00:00 Test Item Value Reference Range Interpretation Comments HEMOGLOBIN A1c (test code = 24922) 8.7 % HEMOGLOBIN [id number] 00:00:00 Test Item Value Reference Range Interpretation Comments HEMOGLOBIN A1c (test code = 06208) 8.7 % HEMOGLOBIN [id number] 00:00:00 Test Item Value Reference Range Interpretation Comments HEMOGLOBIN A1c (test code = 78442) 8.7 % COMPREHENSIVE METABOLIC [id number] 00:00:00 Test Item Value Reference Range Interpretation Comments GLUCOSE (test code = 2217) 229 MG/DL BUN (test code = 2208) 30 MG/DL CREATININE (test code = 2214) 4.17 MG/DL eGFR AMER. (test code 13 ML/MIN/1.73 = 39065) eGFR NON- AMER. (test 11 ML/MIN/1.73 code = 53153) CALC BUN/CREAT (test code = 7 RATIO [...] code = 2219) 10 U/L COMPREHENSIVE METABOLIC [id number] 00:00:00 Test Item Value Reference Range Interpretation Comments GLUCOSE (test code = 2217) 229 MG/DL BUN (test code = 2208) 30 MG/DL CREATININE (test code = 2214) 4.17 MG/DL eGFR AMER. (test code 13 ML/MIN/1.73 = 87834) eGFR NON- AMER. (test 11 ML/MIN/1.73 code = 60634) CALC BUN/CREAT (test code = 7 RATIO [...] code = 2219) 10 U/L CBC W/AUTO [id number] 00:00:00 Test Item Value Reference Range Interpretation [...] code = 1015) 187 K/UL CBC W/AUTO [id number] 00:00:00 Test Item Value Reference Range Interpretation [...] code = 1015) 187 K/UL CBC W/AUTO [id number] 00:00:00 Test Item Value Reference Range Interpretation [...] (test code = 1015) 187 K/UL HEMOGLOBIN [id number] 00:00:00 Test Item Value Reference Range Interpretation Comments HEMOGLOBIN A1c (test code = 57106) 8.7 % HEMOGLOBIN [id number] 00:00:00 Test Item Value Reference Range Interpretation Comments HEMOGLOBIN A1c (test code = 54142) 8.7 % HEMOGLOBIN [id number] 00:00:00 Test Item Value Reference Range Interpretation Comments HEMOGLOBIN A1c (test code = 89742) 8.7 % COMPREHENSIVE METABOLIC [id number] 00:00:00 Test Item Value Reference Range Interpretation Comments GLUCOSE (test code = 2217) 229 MG/DL BUN (test code = 2208) 30 MG/DL CREATININE (test code = 2214) 4.17 MG/DL eGFR AMER. (test code 13 ML/MIN/1.73 = 40114) eGFR NON- AMER. (test 11 ML/MIN/1.73 code = 90247) CALC BUN/CREAT (test code = 7 RATIO [...] code = 2219) 10 U/L COMPREHENSIVE METABOLIC [id number] 00:00:00 Test Item Value Reference Range Interpretation Comments GLUCOSE (test code = 2217) 229 MG/DL BUN (test code = 2208) 30 MG/DL CREATININE (test code = 2214) 4.17 MG/DL eGFR AMER. (test code 13 ML/MIN/1.73 = 19234) eGFR NON- AMER. (test 11 ML/MIN/1.73 code = 04153) CALC BUN/CREAT (test code = 7 RATIO [...] code = 2219) 10 U/L CBC W/AUTO [id number] 00:00:00 Test Item Value Reference Range Interpretation [...] code = 1015) 187 K/UL CBC W/AUTO [id number] 00:00:00 Test Item Value Reference Range Interpretation [...] code = 1015) 187 K/UL CBC W/AUTO [id number] 00:00:00 Test Item Value Reference Range Interpretation [...] (test code = 1015) 187 K/UL HEMOGLOBIN [id number] 00:00:00 Test Item Value Reference Range Interpretation Comments HEMOGLOBIN A1c (test code = 09143) 8.7 % HEMOGLOBIN [id number] 00:00:00 Test Item Value Reference Range Interpretation Comments HEMOGLOBIN A1c (test code = 82299) 8.7 % HEMOGLOBIN [id number] 00:00:00 Test Item Value Reference Range Interpretation Comments HEMOGLOBIN A1c (test code = 75482) 8.7 % COMPREHENSIVE METABOLIC [id number] 00:00:00 Test Item Value Reference Range Interpretation Comments GLUCOSE (test code = 2217) 229 MG/DL BUN (test code = 2208) 30 MG/DL CREATININE (test code = 2214) 4.17 MG/DL eGFR AMER. (test code 13 ML/MIN/1.73 = 49215) eGFR NON- AMER. (test 11 ML/MIN/1.73 code = 13510) CALC BUN/CREAT (test code = 7 RATIO [...] code = 2219) 10 U/L COMPREHENSIVE METABOLIC [id number] 00:00:00 Test Item Value Reference Range Interpretation Comments GLUCOSE (test code = 2217) 229 MG/DL BUN (test code = 2208) 30 MG/DL CREATININE (test code = 2214) 4.17 MG/DL eGFR AMER. (test code 13 ML/MIN/1.73 = 50623) eGFR NON- AMER. (test 11 ML/MIN/1.73 code = 72515) CALC BUN/CREAT (test code = 7 RATIO [...] code = 2219) 10 U/L CBC W/AUTO [id number] 00:00:00 Test Item Value Reference Range Interpretation [...] code = 1015) 187 K/UL CBC W/AUTO [id number] 00:00:00 Test Item Value Reference Range Interpretation [...] code = 1015) 187 K/UL CBC W/AUTO [id number] 00:00:00 Test Item Value Reference Range Interpretation [...] code = 1015) 187 K/UL CBC W/AUTO [id number] 00:00:00 Test Item Value Reference Range Interpretation [...] code = 1015) 187 K/UL CBC W/AUTO [id number] 00:00:00 Test Item Value Reference Range Interpretation [...] (test code = 1015) 187 K/UL HEMOGLOBIN [id number] 00:00:00 Test Item Value Reference Range Interpretation Comments HEMOGLOBIN A1c (test code = 77233) 8.7 % HEMOGLOBIN [id number] 00:00:00 Test Item Value Reference Range Interpretation Comments HEMOGLOBIN A1c (test code = 82689) 8.7 % HEMOGLOBIN [id number] 00:00:00 Test Item Value Reference Range Interpretation Comments HEMOGLOBIN A1c (test code = 31832) 8.7 % COMPREHENSIVE METABOLIC [id number] 00:00:00 Test Item Value Reference Range Interpretation Comments GLUCOSE (test code = 2217) 229 MG/DL BUN (test code = 2208) 30 MG/DL CREATININE (test code = 2214) 4.17 MG/DL eGFR AMER. (test code 13 ML/MIN/1.73 = 53542) eGFR NON- AMER. (test 11 ML/MIN/1.73 code = 44534) CALC BUN/CREAT (test code = 7 RATIO [...] (test code = 2219) 10 U/L HEMOGLOBIN [id number] 00:00:00 Test Item Value Reference Range Interpretation Comments HEMOGLOBIN A1c (test code = 44335) 8.7 % COMPREHENSIVE METABOLIC [id number] 00:00:00 Test Item Value Reference Range Interpretation Comments GLUCOSE (test code = 2217) 229 MG/DL BUN (test code = 2208) 30 MG/DL CREATININE (test code = 2214) 4.17 MG/DL eGFR AMER. (test code 13 ML/MIN/1.73 = 94405) eGFR NON- AMER. (test 11 ML/MIN/1.73 code = 78506) CALC BUN/CREAT (test code = 7 RATIO [...] (test code = 2219) 10 U/L HEMOGLOBIN [id number] 00:00:00 Test Item Value Reference Range Interpretation Comments HEMOGLOBIN A1c (test code = 34114) 8.7 % COMPREHENSIVE METABOLIC [id number] 00:00:00 Test Item Value Reference Range Interpretation Comments GLUCOSE (test code = 2217) 229 MG/DL BUN (test code = 2208) 30 MG/DL CREATININE (test code = 2214) 4.17 MG/DL eGFR AMER. (test code 13 ML/MIN/1.73 = 14671) eGFR NON- AMER. (test 11 ML/MIN/1.73 code = 10482) CALC BUN/CREAT (test code = 7 RATIO [...] code = 2219) 10 U/L CBC W/AUTO [id number] 00:00:00 Test Item Value Reference Range Interpretation [...] code = 1015) 187 K/UL CBC W/AUTO [id number] 00:00:00 Test Item Value Reference Range Interpretation [...] code = 1015) 187 K/UL CBC W/AUTO [id number] 00:00:00 Test Item Value Reference Range Interpretation [...] (test code = 1015) 187 K/UL HEMOGLOBIN [id number] 00:00:00 Test Item Value Reference Range Interpretation Comments HEMOGLOBIN A1c (test code = 14389) 8.7 % SURGICAL [id number] 08:04:00 RUN DATE: 07/06/18 [facility] *LIVE* PAGE 1 RUN TIME: 08 Specimen Inquiry RUN USER: INTERFACE --------- ---PATIENT: MARGARITA CORONADO LOC: [facility]NDIE U #: [id number] AGE/SX: 58/F ROOM: [id number] DR: Jonathan Reid MD : 56 BED: DIS: STATUS: DEP [facility] [place] TLOC: SPEC #: [id number] RECD: 07/01/18 STATUS: QUIN #: [id number] JENIFFER: 07/01/[address] [facility] [address]: Jonathan Reid MD ENTERED: 07/05/18 SP TYPE: SURGSPEC OTHR DR: No Primary or Family PhysicianORDERED: GM LEVEL 4 CODES: [id number] - COLON, NOS COPIES TO: No Primary or Family Physician Jonathan Reid MD [address] [address] PROCEDURES: GM LEVEL 4 (Incomplete) TISSUES: 1. 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 CONTINUED ON NEXT PAGE RUN DATE: 07/06/18 [facility] *LIVE* PAGE 2 RUN TIME: 803 Specimen Inquiry RUN USER: INTERFACE ----- -------SPEC #: [id number] PATIENT: MARGARITA CORONADO #[id number] (Continued) POST-OP DIAGNOSIS Colon polyp PRE- OP DIAGNOSIS Colon scr een Signed SIGNATURE ON FILE SoniaFrederick Brigida LARA 07/06/18 0804 END OF REPORT PTH, INTACT, WITH CALCIUM, PHOSPHORUS, [id number] 00:00:00 Test Item Value Reference Range Interpretation Comments INTACT PTH (test code = 5005) 256 PG/ML CALCIUM (test code = 2209) 9.0 MG/DL PHOSPHORUS (test code = 2227) 4.6 MG/DL CREATININE (test code = 2214) 3.71 MG/DL eGFR AMER. (test code 15 ML/MIN/1.73 = 63488) eGFR NON- AMER. (test 13 ML/MIN/1.73 code = 46861) PTH, INTACT, WITH CALCIUM, PHOSPHORUS, [id number] 00:00:00 Test Item Value Reference Range Interpretation Comments INTACT PTH (test code = 5005) 256 PG/ML CALCIUM (test code = 2209) 9.0 MG/DL PHOSPHORUS (test code = 2227) 4.6 MG/DL CREATININE (test code = 2214) 3.71 MG/DL eGFR AMER. (test code 15 ML/MIN/1.73 = 93298) eGFR NON- AMER. (test 13 ML/MIN/1.73 code = 76261) PTH, INTACT, WITH CALCIUM, PHOSPHORUS, [id number] 00:00:00 Test Item Value Reference Range Interpretation Comments INTACT PTH (test code = 5005) 256 PG/ML CALCIUM (test code = 2209) 9.0 MG/DL PHOSPHORUS (test code = 2227) 4.6 MG/DL CREATININE (test code = 2214) 3.71 MG/DL eGFR AMER. (test code 15 ML/MIN/1.73 = 83838) eGFR NON- AMER. (test 13 ML/MIN/1.73 code = 40909) PTH, INTACT, WITH CALCIUM, PHOSPHORUS, [id number] 00:00:00 Test Item Value Reference Range Interpretation Comments INTACT PTH (test code = 5005) 256 PG/ML CALCIUM (test code = 2209) 9.0 MG/DL PHOSPHORUS (test code = 2227) 4.6 MG/DL CREATININE (test code = 2214) 3.71 MG/DL eGFR AMER. (test code 15 ML/MIN/1.73 = 68060) eGFR NON- AMER. (test 13 ML/MIN/1.73 code = 03709) PTH, INTACT, WITH CALCIUM, PHOSPHORUS, [id number] 00:00:00 Test Item Value Reference Range Interpretation Comments INTACT PTH (test code = 5005) 256 PG/ML CALCIUM (test code = 2209) 9.0 MG/DL PHOSPHORUS (test code = 2227) 4.6 MG/DL CREATININE (test code = 2214) 3.71 MG/DL eGFR AMER. (test code 15 ML/MIN/1.73 = 64959) eGFR NON- AMER. (test 13 ML/MIN/1.73 code = 64787) PTH, INTACT, WITH CALCIUM, PHOSPHORUS, [id number] 00:00:00 Test Item Value Reference Range Interpretation Comments INTACT PTH (test code = 5005) 256 PG/ML CALCIUM (test code = 2209) 9.0 MG/DL PHOSPHORUS (test code = 2227) 4.6 MG/DL CREATININE (test code = 2214) 3.71 MG/DL eGFR AMER. (test code 15 ML/MIN/1.73 = 56389) eGFR NON- AMER. (test 13 ML/MIN/1.73 code = 92400) PTH, INTACT, WITH CALCIUM, PHOSPHORUS, [id number] 00:00:00 Test Item Value Reference Range Interpretation Comments INTACT PTH (test code = 5005) 256 PG/ML CALCIUM (test code = 2209) 9.0 MG/DL PHOSPHORUS (test code = 2227) 4.6 MG/DL CREATININE (test code = 2214) 3.71 MG/DL eGFR AMER. (test code 15 ML/MIN/1.73 = 79399) eGFR NON- AMER. (test 13 ML/MIN/1.73 code = 31951) PTH, INTACT, WITH CALCIUM, PHOSPHORUS, [id number] 00:00:00 Test Item Value Reference Range Interpretation Comments INTACT PTH (test code = 5005) 256 PG/ML CALCIUM (test code = 2209) 9.0 MG/DL PHOSPHORUS (test code = 2227) 4.6 MG/DL CREATININE (test code = 2214) 3.71 MG/DL eGFR AMER. (test code 15 ML/MIN/1.73 = 87934) eGFR NON- AMER. (test 13 ML/MIN/1.73 code = 87861) PTH, INTACT, WITH CALCIUM, PHOSPHORUS, [id number] 00:00:00 Test Item Value Reference Range Interpretation Comments INTACT PTH (test code = 5005) 256 PG/ML CALCIUM (test code = 2209) 9.0 MG/DL PHOSPHORUS (test code = 2227) 4.6 MG/DL CREATININE (test code = 2214) 3.71 MG/DL eGFR AMER. (test code 15 ML/MIN/1.73 = 44028) eGFR NON- AMER. (test 13 ML/MIN/1.73 code = 17844) PTH, INTACT, WITH CALCIUM, PHOSPHORUS, [id number] 00:00:00 Test Item Value Reference Range Interpretation Comments INTACT PTH (test code = 5005) 256 PG/ML CALCIUM (test code = 2209) 9.0 MG/DL PHOSPHORUS (test code = 2227) 4.6 MG/DL CREATININE (test code = 2214) 3.71 MG/DL eGFR AMER. (test code 15 ML/MIN/1.73 = 08887) eGFR NON- AMER. (test 13 ML/MIN/1.73 code = 04297) PTH, INTACT, WITH CALCIUM, PHOSPHORUS, [id number] 00:00:00 Test Item Value Reference Range Interpretation Comments INTACT PTH (test code = 5005) 256 PG/ML CALCIUM (test code = 2209) 9.0 MG/DL PHOSPHORUS (test code = 2227) 4.6 MG/DL CREATININE (test code = 2214) 3.71 MG/DL eGFR AMER. (test code 15 ML/MIN/1.73 = 07191) eGFR NON- AMER. (test 13 ML/MIN/1.73 code = 67408) PTH, INTACT, WITH CALCIUM, PHOSPHORUS, [id number] 00:00:00 Test Item Value Reference Range Interpretation Comments INTACT PTH (test code = 5005) 256 PG/ML CALCIUM (test code = 2209) 9.0 MG/DL PHOSPHORUS (test code = 2227) 4.6 MG/DL CREATININE (test code = 2214) 3.71 MG/DL eGFR AMER. (test code 15 ML/MIN/1.73 = 78056) eGFR NON- AMER. (test 13 ML/MIN/1.73 code = 37938) PTH, INTACT, WITH CALCIUM, PHOSPHORUS, [id number] 00:00:00 Test Item Value Reference Range Interpretation Comments INTACT PTH (test code = 5005) 256 PG/ML CALCIUM (test code = 2209) 9.0 MG/DL PHOSPHORUS (test code = 2227) 4.6 MG/DL CREATININE (test code = 2214) 3.71 MG/DL eGFR AMER. (test code 15 ML/MIN/1.73 = 22057) eGFR NON- AMER. (test 13 ML/MIN/1.73 code = 87135) PTH, INTACT, WITH CALCIUM, PHOSPHORUS, [id number] 00:00:00 Test Item Value Reference Range Interpretation Comments INTACT PTH (test code = 5005) 256 PG/ML CALCIUM (test code = 2209) 9.0 MG/DL PHOSPHORUS (test code = 2227) 4.6 MG/DL CREATININE (test code = 2214) 3.71 MG/DL eGFR AMER. (test code 15 ML/MIN/1.73 = 27290) eGFR NON- AMER. (test 13 ML/MIN/1.73 code = 76504) PTH, INTACT, WITH CALCIUM, PHOSPHORUS, [id number] 00:00:00 Test Item Value Reference Range Interpretation Comments INTACT PTH (test code = 5005) 256 PG/ML CALCIUM (test code = 2209) 9.0 MG/DL PHOSPHORUS (test code = 2227) 4.6 MG/DL CREATININE (test code = 2214) 3.71 MG/DL eGFR AMER. (test code 15 ML/MIN/1.73 = 05349) eGFR NON- AMER. (test 13 ML/MIN/1.73 code = 36096) PTH, INTACT, WITH CALCIUM, PHOSPHORUS, [id number] 00:00:00 Test Item Value Reference Range Interpretation Comments INTACT PTH (test code = 5005) 256 PG/ML CALCIUM (test code = 2209) 9.0 MG/DL PHOSPHORUS (test code = 2227) 4.6 MG/DL CREATININE (test code = 2214) 3.71 MG/DL eGFR AMER. (test code 15 ML/MIN/1.73 = 21720) eGFR NON- AMER. (test 13 ML/MIN/1.73 code = 36278) PTH, INTACT, WITH CALCIUM, PHOSPHORUS, [id number] 00:00:00 Test Item Value Reference Range Interpretation Comments INTACT PTH (test code = 5005) 256 PG/ML CALCIUM (test code = 2209) 9.0 MG/DL PHOSPHORUS (test code = 2227) 4.6 MG/DL CREATININE (test code = 2214) 3.71 MG/DL eGFR AMER. (test code 15 ML/MIN/1.73 = 11346) eGFR NON- AMER. (test 13 ML/MIN/1.73 code = 14805) [id number] 00:00:00 Test Item Value Reference Range Interpretation Comments TSH, THIRD GENERATION (test code 2.370 UIU/ML = 2821) [id number] 00:00:00 Test Item Value Reference Range Interpretation Comments TSH, THIRD GENERATION (test code 2.370 UIU/ML = 2821) VITAMIN D, 25 [id number] 00:00:00 Test Item Value Reference Range Interpretation Comments VITAMIN D, 25 OH (test code = 4958) 31 NG/ML VITAMIN D, 25 [id number] 00:00:00 Test Item Value Reference Range Interpretation Comments VITAMIN D, 25 OH (test code = 4958) 31 NG/ML HEMOGLOBIN [id number] 00:00:00 Test Item Value Reference Range Interpretation Comments HEMOGLOBIN A1c (test code = 22767) 8.0 % HEMOGLOBIN [id number] 00:00:00 Test Item Value Reference Range Interpretation Comments HEMOGLOBIN A1c (test code = 50669) 8.0 % HEMOGLOBIN [id number] 00:00:00 Test Item Value Reference Range Interpretation Comments HEMOGLOBIN A1c (test code = 39883) 8.0 % LIPID [id number] 00:00:00 Test Item Value Reference Range Interpretation Comments CHOLESTEROL (test code = 2210) 183 MG/DL TRIGLYCERIDES (test code = 2232) 126 MG/DL HDL CHOLESTEROL (test code = 2220) 67 MG/DL CALC LDL CHOL (test code = 2237) 91 MG/DL RISK RATIO LDL/HDL (test code = 1.36 RATIO 2238) LIPID [id number] 00:00:00 Test Item Value Reference Range Interpretation Comments CHOLESTEROL (test code = 2210) 183 MG/DL TRIGLYCERIDES (test code = 2232) 126 MG/DL HDL CHOLESTEROL (test code = 2220) 67 MG/DL CALC LDL CHOL (test code = 2237) 91 MG/DL RISK RATIO LDL/HDL (test code = 1.36 RATIO 2238) COMPREHENSIVE METABOLIC [id number] 00:00:00 Test Item Value Reference Range Interpretation Comments GLUCOSE (test code = 2217) 220 MG/DL BUN (test code = 2208) 55 MG/DL CREATININE (test code = 2214) 3.71 MG/DL eGFR AMER. (test code 15 ML/MIN/1.73 = 63859) eGFR NON- AMER. (test 13 ML/MIN/1.73 code = 15847) CALC BUN/CREAT (test code = 15 RATIO [...] code = 2219) 15 U/L COMPREHENSIVE METABOLIC [id number] 00:00:00 Test Item Value Reference Range Interpretation Comments GLUCOSE (test code = 2217) 220 MG/DL BUN (test code = 2208) 55 MG/DL CREATININE (test code = 2214) 3.71 MG/DL eGFR AMER. (test code 15 ML/MIN/1.73 = 44335) eGFR NON- AMER. (test 13 ML/MIN/1.73 code = 49888) CALC BUN/CREAT (test code = 15 RATIO [...] = 2219) 15 U/L MICROALBUMIN/CREATININE, RANDOM AND [id number] 00:00:00 Test Item Value Reference Range Interpretation Comments CREATININE, URINE, CONC. (test 38.3 MG/DL code = 2072) ALBUMIN, URINE, RANDOM (test code 275.7 MG/DL = 03533) CALC ALBUMIN/CREAT, RND (test 7198 MG/G code = 43626) MICROALBUMIN/CREATININE, RANDOM AND [id number] 00:00:00 Test Item Value Reference Range Interpretation Comments CREATININE, URINE, CONC. (test 38.3 MG/DL code = 2072) ALBUMIN, URINE, RANDOM (test code 275.7 MG/DL = 80341) CALC ALBUMIN/CREAT, RND (test 7198 MG/G code = 04384) CBC W/AUTO [id number] 00:00:00 Test Item Value Reference Range Interpretation [...] code = 1015) 233 K/UL CBC W/AUTO [id number] 00:00:00 Test Item Value Reference Range Interpretation [...] code = 1015) 233 K/UL CBC W/AUTO [id number] 00:00:00 Test Item Value Reference Range Interpretation [...] COUNT (test code = 1015) 233 K/UL [id number] 00:00:00 Test Item Value Reference Range Interpretation Comments TSH, THIRD GENERATION (test code 2.370 UIU/ML = 2821) [id number] 00:00:00 Test Item Value Reference Range Interpretation Comments TSH, THIRD GENERATION (test code 2.370 UIU/ML = 2821) [id number] 00:00:00 Test Item Value Reference Range Interpretation Comments TSH, THIRD GENERATION (test code 2.370 UIU/ML = 2821) VITAMIN D, 25 [id number] 00:00:00 Test Item Value Reference Range Interpretation Comments VITAMIN D, 25 OH (test code = 4958) 31 NG/ML VITAMIN D, 25 [id number] 00:00:00 Test Item Value Reference Range Interpretation Comments VITAMIN D, 25 OH (test code = 4958) 31 NG/ML HEMOGLOBIN [id number] 00:00:00 Test Item Value Reference Range Interpretation Comments HEMOGLOBIN A1c (test code = 64731) 8.0 % HEMOGLOBIN [id number] 00:00:00 Test Item Value Reference Range Interpretation Comments HEMOGLOBIN A1c (test code = 80316) 8.0 % HEMOGLOBIN [id number] 00:00:00 Test Item Value Reference Range Interpretation Comments HEMOGLOBIN A1c (test code = 27733) 8.0 % LIPID [id number] 00:00:00 Test Item Value Reference Range Interpretation Comments CHOLESTEROL (test code = 2210) 183 MG/DL TRIGLYCERIDES (test code = 2232) 126 MG/DL HDL CHOLESTEROL (test code = 2220) 67 MG/DL CALC LDL CHOL (test code = 2237) 91 MG/DL RISK RATIO LDL/HDL (test code = 1.36 RATIO 2238) LIPID [id number] 00:00:00 Test Item Value Reference Range Interpretation Comments CHOLESTEROL (test code = 2210) 183 MG/DL TRIGLYCERIDES (test code = 2232) 126 MG/DL HDL CHOLESTEROL (test code = 2220) 67 MG/DL CALC LDL CHOL (test code = 2237) 91 MG/DL RISK RATIO LDL/HDL (test code = 1.36 RATIO 2238) COMPREHENSIVE METABOLIC [id number] 00:00:00 Test Item Value Reference Range Interpretation Comments GLUCOSE (test code = 2217) 220 MG/DL BUN (test code = 2208) 55 MG/DL CREATININE (test code = 2214) 3.71 MG/DL eGFR AMER. (test code 15 ML/MIN/1.73 = 56043) eGFR NON- AMER. (test 13 ML/MIN/1.73 code = 79488) CALC BUN/CREAT (test code = 15 RATIO [...] code = 2219) 15 U/L COMPREHENSIVE METABOLIC [id number] 00:00:00 Test Item Value Reference Range Interpretation Comments GLUCOSE (test code = 2217) 220 MG/DL BUN (test code = 2208) 55 MG/DL CREATININE (test code = 2214) 3.71 MG/DL eGFR AMER. (test code 15 ML/MIN/1.73 = 33694) eGFR NON- AMER. (test 13 ML/MIN/1.73 code = 53929) CALC BUN/CREAT (test code = 15 RATIO [...] = 2219) 15 U/L MICROALBUMIN/CREATININE, RANDOM AND [id number] 00:00:00 Test Item Value Reference Range Interpretation Comments CREATININE, URINE, CONC. (test 38.3 MG/DL code = 2072) ALBUMIN, URINE, RANDOM (test code 275.7 MG/DL = 68069) CALC ALBUMIN/CREAT, RND (test 7198 MG/G code = 89800) MICROALBUMIN/CREATININE, RANDOM AND [id number] 00:00:00 Test Item Value Reference Range Interpretation Comments CREATININE, URINE, CONC. (test 38.3 MG/DL code = 2072) ALBUMIN, URINE, RANDOM (test code 275.7 MG/DL = 78701) CALC ALBUMIN/CREAT, RND (test 7198 MG/G code = 88322) CBC W/AUTO [id number] 00:00:00 Test Item Value Reference Range Interpretation [...] code = 1015) 233 K/UL CBC W/AUTO [id number] 00:00:00 Test Item Value Reference Range Interpretation [...] code = 1015) 233 K/UL CBC W/AUTO [id number] 00:00:00 Test Item Value Reference Range Interpretation [...] COUNT (test code = 1015) 233 K/UL [id number] 00:00:00 Test Item Value Reference Range Interpretation Comments TSH, THIRD GENERATION (test code 2.370 UIU/ML = 2821) [id number] 00:00:00 Test Item Value Reference Range Interpretation Comments TSH, THIRD GENERATION (test code 2.370 UIU/ML = 2821) [id number] 00:00:00 Test Item Value Reference Range Interpretation Comments TSH, THIRD GENERATION (test code 2.370 UIU/ML = 2821) VITAMIN D, 25 [id number] 00:00:00 Test Item Value Reference Range Interpretation Comments VITAMIN D, 25 OH (test code = 4958) 31 NG/ML VITAMIN D, 25 [id number] 00:00:00 Test Item Value Reference Range Interpretation Comments VITAMIN D, 25 OH (test code = 4958) 31 NG/ML HEMOGLOBIN [id number] 00:00:00 Test Item Value Reference Range Interpretation Comments HEMOGLOBIN A1c (test code = 61983) 8.0 % HEMOGLOBIN [id number] 00:00:00 Test Item Value Reference Range Interpretation Comments HEMOGLOBIN A1c (test code = 44093) 8.0 % HEMOGLOBIN [id number] 00:00:00 Test Item Value Reference Range Interpretation Comments HEMOGLOBIN A1c (test code = 08745) 8.0 % LIPID [id number] 00:00:00 Test Item Value Reference Range Interpretation Comments CHOLESTEROL (test code = 2210) 183 MG/DL TRIGLYCERIDES (test code = 2232) 126 MG/DL HDL CHOLESTEROL (test code = 2220) 67 MG/DL CALC LDL CHOL (test code = 2237) 91 MG/DL RISK RATIO LDL/HDL (test code = 1.36 RATIO 2238) LIPID [id number] 00:00:00 Test Item Value Reference Range Interpretation Comments CHOLESTEROL (test code = 2210) 183 MG/DL TRIGLYCERIDES (test code = 2232) 126 MG/DL HDL CHOLESTEROL (test code = 2220) 67 MG/DL CALC LDL CHOL (test code = 2237) 91 MG/DL RISK RATIO LDL/HDL (test code = 1.36 RATIO 2238) COMPREHENSIVE METABOLIC [id number] 00:00:00 Test Item Value Reference Range Interpretation Comments GLUCOSE (test code = 2217) 220 MG/DL BUN (test code = 2208) 55 MG/DL CREATININE (test code = 2214) 3.71 MG/DL eGFR AMER. (test code 15 ML/MIN/1.73 = 10847) eGFR NON- AMER. (test 13 ML/MIN/1.73 code = 06573) CALC BUN/CREAT (test code = 15 RATIO [...] code = 2219) 15 U/L COMPREHENSIVE METABOLIC [id number] 00:00:00 Test Item Value Reference Range Interpretation Comments GLUCOSE (test code = 2217) 220 MG/DL BUN (test code = 2208) 55 MG/DL CREATININE (test code = 2214) 3.71 MG/DL eGFR AMER. (test code 15 ML/MIN/1.73 = 67324) eGFR NON- AMER. (test 13 ML/MIN/1.73 code = 21536) CALC BUN/CREAT (test code = 15 RATIO [...] = 2219) 15 U/L MICROALBUMIN/CREATININE, RANDOM AND [id number] 00:00:00 Test Item Value Reference Range Interpretation Comments CREATININE, URINE, CONC. (test 38.3 MG/DL code = 2072) ALBUMIN, URINE, RANDOM (test code 275.7 MG/DL = 94814) CALC ALBUMIN/CREAT, RND (test 7198 MG/G code = 55529) MICROALBUMIN/CREATININE, RANDOM AND [id number] 00:00:00 Test Item Value Reference Range Interpretation Comments CREATININE, URINE, CONC. (test 38.3 MG/DL code = 2072) ALBUMIN, URINE, RANDOM (test code 275.7 MG/DL = 90359) CALC ALBUMIN/CREAT, RND (test 7198 MG/G code = 04697) CBC W/AUTO [id number] 00:00:00 Test Item Value Reference Range Interpretation [...] code = 1015) 233 K/UL CBC W/AUTO [id number] 00:00:00 Test Item Value Reference Range Interpretation [...] code = 1015) 233 K/UL CBC W/AUTO [id number] 00:00:00 Test Item Value Reference Range Interpretation [...] COUNT (test code = 1015) 233 K/UL [id number] 00:00:00 Test Item Value Reference Range Interpretation Comments TSH, THIRD GENERATION (test code 2.370 UIU/ML = 2821) [id number] 00:00:00 Test Item Value Reference Range Interpretation Comments TSH, THIRD GENERATION (test code 2.370 UIU/ML = 2821) [id number] 00:00:00 Test Item Value Reference Range Interpretation Comments TSH, THIRD GENERATION (test code 2.370 UIU/ML = 2821) VITAMIN D, 25 [id number] 00:00:00 Test Item Value Reference Range Interpretation Comments VITAMIN D, 25 OH (test code = 4958) 31 NG/ML VITAMIN D, 25 [id number] 00:00:00 Test Item Value Reference Range Interpretation Comments VITAMIN D, 25 OH (test code = 4958) 31 NG/ML HEMOGLOBIN [id number] 00:00:00 Test Item Value Reference Range Interpretation Comments HEMOGLOBIN A1c (test code = 04079) 8.0 % HEMOGLOBIN [id number] 00:00:00 Test Item Value Reference Range Interpretation Comments HEMOGLOBIN A1c (test code = 00451) 8.0 % HEMOGLOBIN [id number] 00:00:00 Test Item Value Reference Range Interpretation Comments HEMOGLOBIN A1c (test code = 56206) 8.0 % LIPID [id number] 00:00:00 Test Item Value Reference Range Interpretation Comments CHOLESTEROL (test code = 2210) 183 MG/DL TRIGLYCERIDES (test code = 2232) 126 MG/DL HDL CHOLESTEROL (test code = 2220) 67 MG/DL CALC LDL CHOL (test code = 2237) 91 MG/DL RISK RATIO LDL/HDL (test code = 1.36 RATIO 2238) LIPID [id number] 00:00:00 Test Item Value Reference Range Interpretation Comments CHOLESTEROL (test code = 2210) 183 MG/DL TRIGLYCERIDES (test code = 2232) 126 MG/DL HDL CHOLESTEROL (test code = 2220) 67 MG/DL CALC LDL CHOL (test code = 2237) 91 MG/DL RISK RATIO LDL/HDL (test code = 1.36 RATIO 2238) COMPREHENSIVE METABOLIC [id number] 00:00:00 Test Item Value Reference Range Interpretation Comments GLUCOSE (test code = 2217) 220 MG/DL BUN (test code = 2208) 55 MG/DL CREATININE (test code = 2214) 3.71 MG/DL eGFR AMER. (test code 15 ML/MIN/1.73 = 70115) eGFR NON- AMER. (test 13 ML/MIN/1.73 code = 67477) CALC BUN/CREAT (test code = 15 RATIO [...] code = 2219) 15 U/L COMPREHENSIVE METABOLIC [id number] 00:00:00 Test Item Value Reference Range Interpretation Comments GLUCOSE (test code = 2217) 220 MG/DL BUN (test code = 2208) 55 MG/DL CREATININE (test code = 2214) 3.71 MG/DL eGFR AMER. (test code 15 ML/MIN/1.73 = 64454) eGFR NON- AMER. (test 13 ML/MIN/1.73 code = 78879) CALC BUN/CREAT (test code = 15 RATIO [...] = 2219) 15 U/L MICROALBUMIN/CREATININE, RANDOM AND [id number] 00:00:00 Test Item Value Reference Range Interpretation Comments CREATININE, URINE, CONC. (test 38.3 MG/DL code = 2072) ALBUMIN, URINE, RANDOM (test code 275.7 MG/DL = 77079) CALC ALBUMIN/CREAT, RND (test 7198 MG/G code = 22689) MICROALBUMIN/CREATININE, RANDOM AND [id number] 00:00:00 Test Item Value Reference Range Interpretation Comments CREATININE, URINE, CONC. (test 38.3 MG/DL code = 2072) ALBUMIN, URINE, RANDOM (test code 275.7 MG/DL = 11360) CALC ALBUMIN/CREAT, RND (test 7198 MG/G code = 42124) CBC W/AUTO [id number] 00:00:00 Test Item Value Reference Range Interpretation [...] code = 1015) 233 K/UL CBC W/AUTO [id number] 00:00:00 Test Item Value Reference Range Interpretation [...] code = 1015) 233 K/UL CBC W/AUTO [id number] 00:00:00 Test Item Value Reference Range Interpretation [...] code = 1015) 233 K/UL CBC W/AUTO [id number] 00:00:00 Test Item Value Reference Range Interpretation [...] code = 1015) 233 K/UL CBC W/AUTO [id number] 00:00:00 Test Item Value Reference Range Interpretation [...] COUNT (test code = 1015) 233 K/UL [id number] 00:00:00 Test Item Value Reference Range Interpretation Comments TSH, THIRD GENERATION (test code 2.370 UIU/ML = 2821) [id number] 00:00:00 Test Item Value Reference Range Interpretation Comments TSH, THIRD GENERATION (test code 2.370 UIU/ML = 2821) [id number] 00:00:00 Test Item Value Reference Range Interpretation Comments TSH, THIRD GENERATION (test code 2.370 UIU/ML = 2821) VITAMIN D, 25 [id number] 00:00:00 Test Item Value Reference Range Interpretation Comments VITAMIN D, 25 OH (test code = 4958) 31 NG/ML [id number] 00:00:00 Test Item Value Reference Range Interpretation Comments TSH, THIRD GENERATION (test code 2.370 UIU/ML = 2821) VITAMIN D, 25 [id number] 00:00:00 Test Item Value Reference Range Interpretation Comments VITAMIN D, 25 OH (test code = 4958) 31 NG/ML HEMOGLOBIN [id number] 00:00:00 Test Item Value Reference Range Interpretation Comments HEMOGLOBIN A1c (test code = 94435) 8.0 % HEMOGLOBIN [id number] 00:00:00 Test Item Value Reference Range Interpretation Comments HEMOGLOBIN A1c (test code = 57348) 8.0 % HEMOGLOBIN [id number] 00:00:00 Test Item Value Reference Range Interpretation Comments HEMOGLOBIN A1c (test code = 09983) 8.0 % LIPID [id number] 00:00:00 Test Item Value Reference Range Interpretation Comments CHOLESTEROL (test code = 2210) 183 MG/DL TRIGLYCERIDES (test code = 2232) 126 MG/DL HDL CHOLESTEROL (test code = 2220) 67 MG/DL CALC LDL CHOL (test code = 2237) 91 MG/DL RISK RATIO LDL/HDL (test code = 1.36 RATIO 2238) LIPID [id number] 00:00:00 Test Item Value Reference Range Interpretation Comments CHOLESTEROL (test code = 2210) 183 MG/DL TRIGLYCERIDES (test code = 2232) 126 MG/DL HDL CHOLESTEROL (test code = 2220) 67 MG/DL CALC LDL CHOL (test code = 2237) 91 MG/DL RISK RATIO LDL/HDL (test code = 1.36 RATIO 2238) COMPREHENSIVE METABOLIC [id number] 00:00:00 Test Item Value Reference Range Interpretation Comments GLUCOSE (test code = 2217) 220 MG/DL BUN (test code = 2208) 55 MG/DL CREATININE (test code = 2214) 3.71 MG/DL eGFR AMER. (test code 15 ML/MIN/1.73 = 46438) eGFR NON- AMER. (test 13 ML/MIN/1.73 code = 62161) CALC BUN/CREAT (test code = 15 RATIO [...] code = 2219) 15 U/L COMPREHENSIVE METABOLIC [id number] 00:00:00 Test Item Value Reference Range Interpretation Comments GLUCOSE (test code = 2217) 220 MG/DL BUN (test code = 2208) 55 MG/DL CREATININE (test code = 2214) 3.71 MG/DL eGFR AMER. (test code 15 ML/MIN/1.73 = 78386) eGFR NON- AMER. (test 13 ML/MIN/1.73 code = 72369) CALC BUN/CREAT (test code = 15 RATIO 223) SODIUM (test code = 2231) 139 MEQ/L POTASSIUM (test code = 2228) 5.7 MEQ/L CHLORIDE (test code = 2215) 102 MEQ/L CARBON DIOXIDE (test code = 24 MEQ/L 2205) CALCIUM (test code = 2209) 9.0 MG/DL PROTEIN, TOTAL (test code = 7.1 G/DL 2228) ALBUMIN (test code = 220) 3.8 G/DL CALC GLOBULIN (test code = 3.3 G/DL 2239) CALC A/G RATIO (test code = 1.2 RATIO 2233) BILIRUBIN, TOTAL (test code = 0.3 MG/DL 2206) ALKALINE PHOSPHATASE (test 202 U/L code = 220) AST (test code = 2218) 26 U/L ALT (test code = 2219) 15 U/L MICROALBUMIN/CREATININE, RANDOM AND [id number] 00:00:00 Test Item Value Reference Range Interpretation Comments CREATININE, URINE, CONC. (test 38.3 MG/DL code = 2072) ALBUMIN, URINE, RANDOM (test code 275.7 MG/DL = 59556) CALC ALBUMIN/CREAT, RND (test 7198 MG/G code = 44917) MICROALBUMIN/CREATININE, RANDOM AND [id number] 00:00:00 Test Item Value Reference Range Interpretation Comments CREATININE, URINE, CONC. (test 38.3 MG/DL code = 2072) ALBUMIN, URINE, RANDOM (test code 275.7 MG/DL = 82350) CALC ALBUMIN/CREAT, RND (test 7198 MG/G code = 67138) [id number] 00:00:00 Test Item Value Reference Range Interpretation Comments TSH, THIRD GENERATION (test code 2.370 UIU/ML = 2821) VITAMIN D, 25 [id number] 00:00:00 Test Item Value Reference Range Interpretation Comments VITAMIN D, 25 OH (test code = 4958) 31 NG/ML HEMOGLOBIN [id number] 00:00:00 Test Item Value Reference Range Interpretation Comments HEMOGLOBIN A1c (test code = 37220) 8.0 % HEMOGLOBIN [id number] 00:00:00 Test Item Value Reference Range Interpretation Comments HEMOGLOBIN A1c (test code = 04624) 8.0 % LIPID [id number] 00:00:00 Test Item Value Reference Range Interpretation Comments CHOLESTEROL (test code = 2210) 183 MG/DL TRIGLYCERIDES (test code = 2232) 126 MG/DL HDL CHOLESTEROL (test code = 2220) 67 MG/DL CALC LDL CHOL (test code = 2237) 91 MG/DL RISK RATIO LDL/HDL (test code = 1.36 RATIO 2238) COMPREHENSIVE METABOLIC [id number] 00:00:00 Test Item Value Reference Range Interpretation Comments GLUCOSE (test code = 2217) 220 MG/DL BUN (test code = 2208) 55 MG/DL CREATININE (test code = 2214) 3.71 MG/DL eGFR AMER. (test code 15 ML/MIN/1.73 = 18832) eGFR NON- AMER. (test 13 ML/MIN/1.73 code = 49779) CALC BUN/CREAT (test code = 15 RATIO [...] = 2219) 15 U/L MICROALBUMIN/CREATININE, RANDOM AND [id number] 00:00:00 Test Item Value Reference Range Interpretation Comments CREATININE, URINE, CONC. (test 38.3 MG/DL code = 207) ALBUMIN, URINE, RANDOM (test code 275.7 MG/DL = 32383) CALC ALBUMIN/CREAT, RND (test 7198 MG/G code = 53549) CBC W/AUTO [id number] 00:00:00 Test Item Value Reference Range Interpretation [...] code = 1015) 233 K/UL CBC W/AUTO [id number] 00:00:00 Test Item Value Reference Range Interpretation [...] code = 1015) 233 K/UL CBC W/AUTO [id number] 00:00:00 Test Item Value Reference Range Interpretation [...] COUNT (test code = 1015) 233 K/UL [id number] 00:00:00 Test Item Value Reference Range Interpretation Comments TSH, THIRD GENERATION (test code 2.370 UIU/ML = 2821) SCR MAMM BILATERAL DAVIS CAD [id number] 15:42:55 - SCR MAMM BILATERAL DAVIS CAD DIGITALBILATERAL DIGITAL SCREENING MAMMOGRAM 3D/2D WITH CAD: 8CLINICAL: Asymptomatic. Digital breast tomosynthesis was performed in addition to routine CC and MLO views. Current mammographic images were evaluated by either a [employer] M-Vu or a [employer] Image[employer]erCAD (computer aided detection system). No prior exams were available for comparison. There are scattered fibroglandular tissues in both breasts. Symmetric mild bilateral trabecula and skin thickening noted.No suspicious mass, architectural distortion, malignant type calcification, or lymph node abnormality detected. IMPRESSION: NEGATIVEThere is no mammographic evidence of malignancy. Resume annual screening mammography in one year. Marcia Norris M.D. el/:04/27/2018 15:42:55 Completion Engineer: Jackelin Rocha MM, [facility] Mammographyletter sent: BIRADS 1-2 Normal Mammogram BI-RADS: 1 NegativeHEMOGLOBIN [id number] 00:00:00 Test Item Value Reference Range Interpretation Comments HEMOGLOBIN A1c (test code = 83173) 8.2 % HEMOGLOBIN [id number] 00:00:00 Test Item Value Reference Range Interpretation Comments HEMOGLOBIN A1c (test code = 40961) 8.2 % HEMOGLOBIN [id number] 00:00:00 Test Item Value Reference Range Interpretation Comments HEMOGLOBIN A1c (test code = 39252) 8.2 % [id number] 00:00:00 Test Item Value Reference Range Interpretation Comments TSH, THIRD GENERATION (test code 1.510 UIU/ML = 2821) [id number] 00:00:00 Test Item Value Reference Range Interpretation Comments TSH, THIRD GENERATION (test code 1.510 UIU/ML = 2821) [id number] 00:00:00 Test Item Value Reference Range Interpretation Comments TSH, THIRD GENERATION (test code 1.510 UIU/ML = 2821) COMPREHENSIVE METABOLIC [id number] 00:00:00 Test Item Value Reference Range Interpretation Comments GLUCOSE (test code = 2217) 337 MG/DL BUN (test code = 2208) 49 MG/DL CREATININE (test code = 2214) 3.21 MG/DL eGFR AMER. (test code 17 ML/MIN/1.73 = 12225) eGFR NON- AMER. (test 15 ML/MIN/1.73 code = 87746) CALC BUN/CREAT (test code = 15 RATIO [...] code = 2219) 17 U/L COMPREHENSIVE METABOLIC [id number] 00:00:00 Test Item Value Reference Range Interpretation Comments GLUCOSE (test code = 2217) 337 MG/DL BUN (test code = 2208) 49 MG/DL CREATININE (test code = 2214) 3.21 MG/DL eGFR AMER. (test code 17 ML/MIN/1.73 = 39992) eGFR NON- AMER. (test 15 ML/MIN/1.73 code = 04367) CALC BUN/CREAT (test code = 15 RATIO [...] (test code = 2219) 17 U/L HEMOGLOBIN [id number] 00:00:00 Test Item Value Reference Range Interpretation Comments HEMOGLOBIN A1c (test code = 47160) 8.2 % HEMOGLOBIN [id number] 00:00:00 Test Item Value Reference Range Interpretation Comments HEMOGLOBIN A1c (test code = 47688) 8.2 % HEMOGLOBIN [id number] 00:00:00 Test Item Value Reference Range Interpretation Comments HEMOGLOBIN A1c (test code = 93723) 8.2 % [id number] 00:00:00 Test Item Value Reference Range Interpretation Comments TSH, THIRD GENERATION (test code 1.510 UIU/ML = 2821) [id number] 00:00:00 Test Item Value Reference Range Interpretation Comments TSH, THIRD GENERATION (test code 1.510 UIU/ML = 2821) [id number] 00:00:00 Test Item Value Reference Range Interpretation Comments TSH, THIRD GENERATION (test code 1.510 UIU/ML = 2821) COMPREHENSIVE METABOLIC [id number] 00:00:00 Test Item Value Reference Range Interpretation Comments GLUCOSE (test code = 2217) 337 MG/DL BUN (test code = 2208) 49 MG/DL CREATININE (test code = 2214) 3.21 MG/DL eGFR AMER. (test code 17 ML/MIN/1.73 = 73627) eGFR NON- AMER. (test 15 ML/MIN/1.73 code = 31113) CALC BUN/CREAT (test code = 15 RATIO [...] code = 2219) 17 U/L COMPREHENSIVE METABOLIC [id number] 00:00:00 Test Item Value Reference Range Interpretation Comments GLUCOSE (test code = 2217) 337 MG/DL BUN (test code = 2208) 49 MG/DL CREATININE (test code = 2214) 3.21 MG/DL eGFR AMER. (test code 17 ML/MIN/1.73 = 57333) eGFR NON- AMER. (test 15 ML/MIN/1.73 code = 19526) CALC BUN/CREAT (test code = 15 RATIO [...] (test code = 2219) 17 U/L HEMOGLOBIN [id number] 00:00:00 Test Item Value Reference Range Interpretation Comments HEMOGLOBIN A1c (test code = 41675) 8.2 % HEMOGLOBIN [id number] 00:00:00 Test Item Value Reference Range Interpretation Comments HEMOGLOBIN A1c (test code = 55489) 8.2 % HEMOGLOBIN [id number] 00:00:00 Test Item Value Reference Range Interpretation Comments HEMOGLOBIN A1c (test code = 32414) 8.2 % [id number] 00:00:00 Test Item Value Reference Range Interpretation Comments TSH, THIRD GENERATION (test code 1.510 UIU/ML = 2821) [id number] 00:00:00 Test Item Value Reference Range Interpretation Comments TSH, THIRD GENERATION (test code 1.510 UIU/ML = 2821) [id number] 00:00:00 Test Item Value Reference Range Interpretation Comments TSH, THIRD GENERATION (test code 1.510 UIU/ML = 2821) COMPREHENSIVE METABOLIC [id number] 00:00:00 Test Item Value Reference Range Interpretation Comments GLUCOSE (test code = 2217) 337 MG/DL BUN (test code = 2208) 49 MG/DL CREATININE (test code = 2214) 3.21 MG/DL eGFR AMER. (test code 17 ML/MIN/1.73 = 51972) eGFR NON- AMER. (test 15 ML/MIN/1.73 code = 37982) CALC BUN/CREAT (test code = 15 RATIO [...] code = 2219) 17 U/L COMPREHENSIVE METABOLIC [id number] 00:00:00 Test Item Value Reference Range Interpretation Comments GLUCOSE (test code = 2217) 337 MG/DL BUN (test code = 2208) 49 MG/DL CREATININE (test code = 2214) 3.21 MG/DL eGFR AMER. (test code 17 ML/MIN/1.73 = 94732) eGFR NON- AMER. (test 15 ML/MIN/1.73 code = 32249) CALC BUN/CREAT (test code = 15 RATIO [...] (test code = 2219) 17 U/L HEMOGLOBIN [id number] 00:00:00 Test Item Value Reference Range Interpretation Comments HEMOGLOBIN A1c (test code = 20567) 8.2 % HEMOGLOBIN [id number] 00:00:00 Test Item Value Reference Range Interpretation Comments HEMOGLOBIN A1c (test code = 49034) 8.2 % HEMOGLOBIN [id number] 00:00:00 Test Item Value Reference Range Interpretation Comments HEMOGLOBIN A1c (test code = 09566) 8.2 % [id number] 00:00:00 Test Item Value Reference Range Interpretation Comments TSH, THIRD GENERATION (test code 1.510 UIU/ML = 2821) [id number] 00:00:00 Test Item Value Reference Range Interpretation Comments TSH, THIRD GENERATION (test code 1.510 UIU/ML = 2821) [id number] 00:00:00 Test Item Value Reference Range Interpretation Comments TSH, THIRD GENERATION (test code 1.510 UIU/ML = 2821) COMPREHENSIVE METABOLIC [id number] 00:00:00 Test Item Value Reference Range Interpretation Comments GLUCOSE (test code = 2217) 337 MG/DL BUN (test code = 2208) 49 MG/DL CREATININE (test code = 2214) 3.21 MG/DL eGFR AMER. (test code 17 ML/MIN/1.73 = 68061) eGFR NON- AMER. (test 15 ML/MIN/1.73 code = 32496) CALC BUN/CREAT (test code = 15 RATIO [...] code = 2219) 17 U/L COMPREHENSIVE METABOLIC [id number] 00:00:00 Test Item Value Reference Range Interpretation Comments GLUCOSE (test code = 2217) 337 MG/DL BUN (test code = 2208) 49 MG/DL CREATININE (test code = 2214) 3.21 MG/DL eGFR AMER. (test code 17 ML/MIN/1.73 = 73449) eGFR NON- AMER. (test 15 ML/MIN/1.73 code = 06878) CALC BUN/CREAT (test code = 15 RATIO [...] code = 2219) 17 U/L COMPREHENSIVE METABOLIC [id number] 00:00:00 Test Item Value Reference Range Interpretation Comments GLUCOSE (test code = 2217) 337 MG/DL BUN (test code = 2208) 49 MG/DL CREATININE (test code = 2214) 3.21 MG/DL eGFR AMER. (test code 17 ML/MIN/1.73 = 92416) eGFR NON- AMER. (test 15 ML/MIN/1.73 code = 02735) CALC BUN/CREAT (test code = 15 RATIO [...] (test code = 2219) 17 U/L HEMOGLOBIN [id number] 00:00:00 Test Item Value Reference Range Interpretation Comments HEMOGLOBIN A1c (test code = 73111) 8.2 % HEMOGLOBIN [id number] 00:00:00 Test Item Value Reference Range Interpretation Comments HEMOGLOBIN A1c (test code = 24997) 8.2 % HEMOGLOBIN [id number] 00:00:00 Test Item Value Reference Range Interpretation Comments HEMOGLOBIN A1c (test code = 43399) 8.2 % HEMOGLOBIN [id number] 00:00:00 Test Item Value Reference Range Interpretation Comments HEMOGLOBIN A1c (test code = 77377) 8.2 % [id number] 00:00:00 Test Item Value Reference Range Interpretation Comments TSH, THIRD GENERATION (test code 1.510 UIU/ML = 2821) [id number] 00:00:00 Test Item Value Reference Range Interpretation Comments TSH, THIRD GENERATION (test code 1.510 UIU/ML = 2821) [id number] 00:00:00 Test Item Value Reference Range Interpretation Comments TSH, THIRD GENERATION (test code 1.510 UIU/ML = 2821) HEMOGLOBIN [id number] 00:00:00 Test Item Value Reference Range Interpretation Comments HEMOGLOBIN A1c (test code = 59646) 8.2 % [id number] 00:00:00 Test Item Value Reference Range Interpretation Comments TSH, THIRD GENERATION (test code 1.510 UIU/ML = 2821) [id number] 00:00:00 Test Item Value Reference Range Interpretation Comments TSH, THIRD GENERATION (test code 1.510 UIU/ML = 2821) COMPREHENSIVE METABOLIC [id number] 00:00:00 Test Item Value Reference Range Interpretation Comments GLUCOSE (test code = 2217) 337 MG/DL BUN (test code = 2208) 49 MG/DL CREATININE (test code = 2214) 3.21 MG/DL eGFR AMER. (test code 17 ML/MIN/1.73 = 92801) eGFR NON- AMER. (test 15 ML/MIN/1.73 code = 19261) CALC BUN/CREAT (test code = 15 RATIO [...] code = 2219) 17 U/L COMPREHENSIVE METABOLIC [id number] 00:00:00 Test Item Value Reference Range Interpretation Comments GLUCOSE (test code = 2217) 337 MG/DL BUN (test code = 2208) 49 MG/DL CREATININE (test code = 2214) 3.21 MG/DL eGFR AMER. (test code 17 ML/MIN/1.73 = 53776) eGFR NON- AMER. (test 15 ML/MIN/1.73 code = 79363) CALC BUN/CREAT (test code = 15 RATIO [...] ALT (test code = 2219) 17 U/L PAP TEST, THINPREP, [id number] 00:00:00 Test Item Value Reference Range Interpretation Comments SOURCE: (test code = Cervical/Endocervical 8001) SLIDES: (test code = 1 8011) LMP: (test code = SEE NOTE 8021) SPECIMEN ADEQUACY: (NOTE) (test code = 88284) INTERPRETATION: (test NO EPITHELIAL code = 63977) ABNORMALITY SEE BELOW [employer] COORDINATOR: MORENO (test code = 8101) YORDAN KAUR(ASCP)IAC LOCATION: (test code (NOTE) = 79005) CPT: (test code = (NOTE) 8140) PAP TEST, THINPREP, [id number] 00:00:00 Test Item Value Reference Range Interpretation Comments SOURCE: (test code = Cervical/Endocervical 8001) SLIDES: (test code = 1 8011) LMP: (test code = SEE NOTE 8021) SPECIMEN ADEQUACY: (NOTE) (test code = 89010) INTERPRETATION: (test NO EPITHELIAL code = 79557) ABNORMALITY SEE BELOW [employer] COORDINATOR: MORENO (test code = 8101) VINCENTCT(ASCP)IAC LOCATION: (test code (NOTE) = 23550) CPT: (test code = (NOTE) 8140) HPV HIGH RISK WITH GENOTYPE, [id number] 00:00:00 Test Item Value Reference Range Interpretation Comments HPV HIGH RISK INTERP (test code = NEGATIVE 40495) HPV 16 (test code = 73500) NEGATIVE HPV 18 (test code = 52860) NEGATIVE HPV, HR, OTHER GENOTYPES (test code NEGATIVE = 86899) HPV HIGH RISK WITH GENOTYPE, [id number] 00:00:00 Test Item Value Reference Range Interpretation Comments HPV HIGH RISK INTERP (test code = NEGATIVE 82158) HPV 16 (test code = 26790) NEGATIVE HPV 18 (test code = 73611) NEGATIVE HPV, HR, OTHER GENOTYPES (test code NEGATIVE = 90122) PAP TEST, THINPREP, [id number] 00:00:00 Test Item Value Reference Range Interpretation Comments SOURCE: (test code = Cervical/Endocervical 8001) SLIDES: (test code = 1 8011) LMP: (test code = SEE NOTE 8021) SPECIMEN ADEQUACY: (NOTE) (test code = 40311) INTERPRETATION: (test NO EPITHELIAL code = 16362) ABNORMALITY SEE BELOW [employer] COORDINATOR: MORENO (test code = 8101) VINCENTCT(ASCP)IAC LOCATION: (test code (NOTE) = 74768) CPT: (test code = (NOTE) 8140) PAP TEST, THINPREP, [id number] 00:00:00 Test Item Value Reference Range Interpretation Comments SOURCE: (test code = Cervical/Endocervical 8001) SLIDES: (test code = 1 8011) LMP: (test code = SEE NOTE 8021) SPECIMEN ADEQUACY: (NOTE) (test code = 90860) INTERPRETATION: (test NO EPITHELIAL code = 54383) ABNORMALITY SEE BELOW [employer] COORDINATOR: MORENO (test code = 8101) VINCENTCT(ASCP)IAC LOCATION: (test code (NOTE) = 91467) CPT: (test code = (NOTE) 8140) HPV HIGH RISK WITH GENOTYPE, [id number] 00:00:00 Test Item Value Reference Range Interpretation Comments HPV HIGH RISK INTERP (test code = NEGATIVE 78298) HPV 16 (test code = 14568) NEGATIVE HPV 18 (test code = 30338) NEGATIVE HPV, HR, OTHER GENOTYPES (test code NEGATIVE = 64284) HPV HIGH RISK WITH GENOTYPE, [id number] 00:00:00 Test Item Value Reference Range Interpretation Comments HPV HIGH RISK INTERP (test code = NEGATIVE 85701) HPV 16 (test code = 42025) NEGATIVE HPV 18 (test code = 96943) NEGATIVE HPV, HR, OTHER GENOTYPES (test code NEGATIVE = 16363) PAP TEST, THINPREP, [id number] 00:00:00 Test Item Value Reference Range Interpretation Comments SOURCE: (test code = Cervical/Endocervical 8001) SLIDES: (test code = 1 8011) LMP: (test code = SEE NOTE 8021) SPECIMEN ADEQUACY: (NOTE) (test code = 64142) INTERPRETATION: (test NO EPITHELIAL code = 76814) ABNORMALITY SEE BELOW [employer] COORDINATOR: MORENO (test code = 8101) YORDAN KAUR(ASCP)IAC LOCATION: (test code (NOTE) = 21103) CPT: (test code = (NOTE) 8140) PAP TEST, THINPREP, [id number] 00:00:00 Test Item Value Reference Range Interpretation Comments SOURCE: (test code = Cervical/Endocervical 8001) SLIDES: (test code = 1 8011) LMP: (test code = SEE NOTE 8021) SPECIMEN ADEQUACY: (NOTE) (test code = 22846) INTERPRETATION: (test NO EPITHELIAL code = 92355) ABNORMALITY SEE BELOW [employer] SERVICES COORDINATOR: MORENO (test code = 8101) YORDAN KAUR(ASCP)IAC LOCATION: (test code (NOTE) = 89262) CPT: (test code = (NOTE) 8140) HPV HIGH RISK WITH GENOTYPE, [id number] 00:00:00 Test Item Value Reference Range Interpretation Comments HPV HIGH RISK INTERP (test code = NEGATIVE 00057) HPV 16 (test code = 97744) NEGATIVE HPV 18 (test code = 86566) NEGATIVE HPV, HR, OTHER GENOTYPES (test code NEGATIVE = 18856) HPV HIGH RISK WITH GENOTYPE, [id number] 00:00:00 Test Item Value Reference Range Interpretation Comments HPV HIGH RISK INTERP (test code = NEGATIVE 49965) HPV 16 (test code = 90112) NEGATIVE HPV 18 (test code = 15666) NEGATIVE HPV, HR, OTHER GENOTYPES (test code NEGATIVE = 82471) PAP TEST, THINPREP, [id number] 00:00:00 Test Item Value Reference Range Interpretation Comments SOURCE: (test code = Cervical/Endocervical 8001) SLIDES: (test code = 1 8011) LMP: (test code = SEE NOTE 8021) SPECIMEN ADEQUACY: (NOTE) (test code = 00275) INTERPRETATION: (test NO EPITHELIAL code = 25968) ABNORMALITY SEE BELOW [employer] COORDINATOR: MORENO (test code = 8101) PARCHER,CT(ASCP)IAC LOCATION: (test code (NOTE) = 96638) CPT: (test code = (NOTE) 8140) PAP TEST, THINPREP, [id number] 00:00:00 Test Item Value Reference Range Interpretation Comments SOURCE: (test code = Cervical/Endocervical 8001) SLIDES: (test code = 1 8011) LMP: (test code = SEE NOTE 8021) SPECIMEN ADEQUACY: (NOTE) (test code = 50800) INTERPRETATION: (test NO EPITHELIAL code = 58128) ABNORMALITY SEE BELOW [employer] SERVICES COORDINATOR: MORENO (test code = 8101) PARCHER,CT(ASCP)IAC LOCATION: (test code (NOTE) = 10882) CPT: (test code = (NOTE) 8140) PAP TEST, THINPREP, [id number] 00:00:00 Test Item Value Reference Range Interpretation Comments SOURCE: (test code = Cervical/Endocervical 8001) SLIDES: (test code = 1 8011) LMP: (test code = SEE NOTE 8021) SPECIMEN ADEQUACY: (NOTE) (test code = 25245) INTERPRETATION: (test NO EPITHELIAL code = 09761) ABNORMALITY SEE BELOW [employer] COORDINATOR: MORENO (test code = 8101) PARCHER,CT(ASCP)IAC LOCATION: (test code (NOTE) = 31379) CPT: (test code = (NOTE) 8140) HPV HIGH RISK WITH GENOTYPE, [id number] 00:00:00 Test Item Value Reference Range Interpretation Comments HPV HIGH RISK INTERP (test code = NEGATIVE 50748) HPV 16 (test code = 17758) NEGATIVE HPV 18 (test code = 56473) NEGATIVE HPV, HR, OTHER GENOTYPES (test code NEGATIVE = 86318) HPV HIGH RISK WITH GENOTYPE, [id number] 00:00:00 Test Item Value Reference Range Interpretation Comments HPV HIGH RISK INTERP (test code = NEGATIVE 93231) HPV 16 (test code = 63682) NEGATIVE HPV 18 (test code = 17691) NEGATIVE HPV, HR, OTHER GENOTYPES (test code NEGATIVE = 25299) HPV HIGH RISK WITH GENOTYPE, [id number] 00:00:00 Test Item Value Reference Range Interpretation Comments HPV HIGH RISK INTERP (test code = NEGATIVE 56161) HPV 16 (test code = 42745) NEGATIVE HPV 18 (test code = 77254) NEGATIVE HPV, HR, OTHER GENOTYPES (test code NEGATIVE = 69607) PAP TEST, THINPREP, [id number] 00:00:00 Test Item Value Reference Range Interpretation Comments SOURCE: (test code = Cervical/Endocervical 8001) SLIDES: (test code = 1 8011) LMP: (test code = SEE NOTE 8021) SPECIMEN ADEQUACY: (NOTE) (test code = 97297) INTERPRETATION: (test NO EPITHELIAL code = 09418) ABNORMALITY SEE BELOW [employer] COORDINATOR: MORENO (test code = 8101) PARCHER,CT(ASCP)IAC LOCATION: (test code (NOTE) = 91419) CPT: (test code = (NOTE) 8140) PAP TEST, THINPREP, [id number] 00:00:00 Test Item Value Reference Range Interpretation Comments SOURCE: (test code = Cervical/Endocervical 8001) SLIDES: (test code = 1 8011) LMP: (test code = SEE NOTE 8021) SPECIMEN ADEQUACY: (NOTE) (test code = 83402) INTERPRETATION: (test NO EPITHELIAL code = 82265) ABNORMALITY SEE BELOW [employer] COORDINATOR: MORENO (test code = 8101) PARCHER,CT(ASCP)IAC LOCATION: (test code (NOTE) = 64547) CPT: (test code = (NOTE) 8140) HPV HIGH RISK WITH GENOTYPE, [id number] 00:00:00 Test Item Value Reference Range Interpretation Comments HPV HIGH RISK INTERP (test code = NEGATIVE 21067) HPV 16 (test code = 99538) NEGATIVE HPV 18 (test code = 18154) NEGATIVE HPV, HR, OTHER GENOTYPES (test code NEGATIVE = 37407) HPV HIGH RISK WITH GENOTYPE, [id number] 00:00:00 Test Item Value Reference Range Interpretation Comments HPV HIGH RISK INTERP (test code = NEGATIVE 40087) HPV 16 (test code = 23876) NEGATIVE HPV 18 (test code = 99305) NEGATIVE HPV, HR, OTHER GENOTYPES (test code NEGATIVE = 34933) INTACT [id number] 00:00:00 Test Item Value Reference Range Interpretation Comments INTACT PTH (test code = 5005) 126 PG/ML INTACT [id number] 00:00:00 Test Item Value Reference Range Interpretation Comments INTACT PTH (test code = 5005) 126 PG/ML INTACT [id number] 00:00:00 Test Item Value Reference Range Interpretation Comments INTACT PTH (test code = 5005) 126 PG/ML PROTEIN/CREATININE RATIO, [id number] 00:00:00 Test Item Value Reference Range Interpretation Comments PROTEIN, URINE, CONC. (test 682 MG/DL code = 2104) CREATININE, URINE, CONC. (test 112.6 MG/DL code = 2072) CALC PROTEIN/CREATININE (test 6057 MG/GCREAT code = 2158) PROTEIN/CREATININE RATIO, [id number] 00:00:00 Test Item Value Reference Range Interpretation Comments PROTEIN, URINE, CONC. (test 682 MG/DL code = 2104) CREATININE, URINE, CONC. (test 112.6 MG/DL code = 2072) CALC PROTEIN/CREATININE (test 6057 MG/GCREAT code = 2158) VITAMIN D, 25 [id number] 00:00:00 Test Item Value Reference Range Interpretation Comments VITAMIN D, 25 OH (test code = 4958) 19 NG/ML VITAMIN D, 25 [id number] 00:00:00 Test Item Value Reference Range Interpretation Comments VITAMIN D, 25 OH (test code = 4958) 19 NG/ML BASIC METABOLIC [id number] 00:00:00 Test Item Value Reference Range Interpretation Comments GLUCOSE (test code = 2217) 279 MG/DL BUN (test code = 2208) 43 MG/DL CREATININE (test code = 2214) 2.63 MG/DL eGFR AMER. (test code 22 ML/MIN/1.73 = 56106) eGFR NON- AMER. (test 19 ML/MIN/1.73 code = 71189) SODIUM (test code = 2231) 140 MEQ/L POTASSIUM (test code = 2228) 5.1 MEQ/L CHLORIDE (test code = 2215) 101 MEQ/L CARBON DIOXIDE (test code = 26 MEQ/L 2206) CALCIUM (test code = 2209) 8.9 MG/DL BASIC METABOLIC [id number] 00:00:00 Test Item Value Reference Range Interpretation Comments GLUCOSE (test code = 2217) 279 MG/DL BUN (test code = 2208) 43 MG/DL CREATININE (test code = 2214) 2.63 MG/DL eGFR AMER. (test code 22 ML/MIN/1.73 = 36912) eGFR NON- AMER. (test 19 ML/MIN/1.73 code = 35686) SODIUM (test code = 2231) 140 MEQ/L POTASSIUM (test code = 2228) 5.1 MEQ/L CHLORIDE (test code = 2215) 101 MEQ/L CARBON DIOXIDE (test code = 26 MEQ/L 2206) CALCIUM (test code = 2209) 8.9 MG/DL INTACT [id number] 00:00:00 Test Item Value Reference Range Interpretation Comments INTACT PTH (test code = 5005) 126 PG/ML INTACT [id number] 00:00:00 Test Item Value Reference Range Interpretation Comments INTACT PTH (test code = 5005) 126 PG/ML INTACT [id number] 00:00:00 Test Item Value Reference Range Interpretation Comments INTACT PTH (test code = 5005) 126 PG/ML PROTEIN/CREATININE RATIO, [id number] 00:00:00 Test Item Value Reference Range Interpretation Comments PROTEIN, URINE, CONC. (test 682 MG/DL code = 2104) CREATININE, URINE, CONC. (test 112.6 MG/DL code = 2072) CALC PROTEIN/CREATININE (test 6057 MG/GCREAT code = 2158) PROTEIN/CREATININE RATIO, [id number] 00:00:00 Test Item Value Reference Range Interpretation Comments PROTEIN, URINE, CONC. (test 682 MG/DL code = 2104) CREATININE, URINE, CONC. (test 112.6 MG/DL code = 2072) CALC PROTEIN/CREATININE (test 6057 MG/GCREAT code = 2158) VITAMIN D, 25 [id number] 00:00:00 Test Item Value Reference Range Interpretation Comments VITAMIN D, 25 OH (test code = 4958) 19 NG/ML VITAMIN D, 25 [id number] 00:00:00 Test Item Value Reference Range Interpretation Comments VITAMIN D, 25 OH (test code = 4958) 19 NG/ML BASIC METABOLIC [id number] 00:00:00 Test Item Value Reference Range Interpretation Comments GLUCOSE (test code = 2217) 279 MG/DL BUN (test code = 2208) 43 MG/DL CREATININE (test code = 2214) 2.63 MG/DL eGFR AMER. (test code 22 ML/MIN/1.73 = 96399) eGFR NON- AMER. (test 19 ML/MIN/1.73 code = 13557) SODIUM (test code = 2231) 140 MEQ/L POTASSIUM (test code = 2228) 5.1 MEQ/L CHLORIDE (test code = 2215) 101 MEQ/L CARBON DIOXIDE (test code = 26 MEQ/L 2206) CALCIUM (test code = 2209) 8.9 MG/DL BASIC METABOLIC [id number] 00:00:00 Test Item Value Reference Range Interpretation Comments GLUCOSE (test code = 2217) 279 MG/DL BUN (test code = 2208) 43 MG/DL CREATININE (test code = 2214) 2.63 MG/DL eGFR AMER. (test code 22 ML/MIN/1.73 = 41969) eGFR NON- AMER. (test 19 ML/MIN/1.73 code = 81118) SODIUM (test code = 2231) 140 MEQ/L POTASSIUM (test code = 2228) 5.1 MEQ/L CHLORIDE (test code = 2215) 101 MEQ/L CARBON DIOXIDE (test code = 26 MEQ/L 2206) CALCIUM (test code = 2209) 8.9 MG/DL INTACT [id number] 00:00:00 Test Item Value Reference Range Interpretation Comments INTACT PTH (test code = 5005) 126 PG/ML INTACT [id number] 00:00:00 Test Item Value Reference Range Interpretation Comments INTACT PTH (test code = 5005) 126 PG/ML INTACT [id number] 00:00:00 Test Item Value Reference Range Interpretation Comments INTACT PTH (test code = 5005) 126 PG/ML PROTEIN/CREATININE RATIO, [id number] 00:00:00 Test Item Value Reference Range Interpretation Comments PROTEIN, URINE, CONC. (test 682 MG/DL code = 2104) CREATININE, URINE, CONC. (test 112.6 MG/DL code = 2072) CALC PROTEIN/CREATININE (test 6057 MG/GCREAT code = 2158) PROTEIN/CREATININE RATIO, [id number] 00:00:00 Test Item Value Reference Range Interpretation Comments PROTEIN, URINE, CONC. (test 682 MG/DL code = 2104) CREATININE, URINE, CONC. (test 112.6 MG/DL code = 2072) CALC PROTEIN/CREATININE (test 6057 MG/GCREAT code = 2158) VITAMIN D, 25 [id number] 00:00:00 Test Item Value Reference Range Interpretation Comments VITAMIN D, 25 OH (test code = 4958) 19 NG/ML VITAMIN D, 25 [id number] 00:00:00 Test Item Value Reference Range Interpretation Comments VITAMIN D, 25 OH (test code = 4958) 19 NG/ML BASIC METABOLIC [id number] 00:00:00 Test Item Value Reference Range Interpretation Comments GLUCOSE (test code = 2217) 279 MG/DL BUN (test code = 2208) 43 MG/DL CREATININE (test code = 2214) 2.63 MG/DL eGFR AMER. (test code 22 ML/MIN/1.73 = 64828) eGFR NON- AMER. (test 19 ML/MIN/1.73 code = 46545) SODIUM (test code = 2231) 140 MEQ/L POTASSIUM (test code = 2228) 5.1 MEQ/L CHLORIDE (test code = 2215) 101 MEQ/L CARBON DIOXIDE (test code = 26 MEQ/L 2206) CALCIUM (test code = 2209) 8.9 MG/DL BASIC METABOLIC [id number] 00:00:00 Test Item Value Reference Range Interpretation Comments GLUCOSE (test code = 2217) 279 MG/DL BUN (test code = 2208) 43 MG/DL CREATININE (test code = 2214) 2.63 MG/DL eGFR AMER. (test code 22 ML/MIN/1.73 = 17397) eGFR NON- AMER. (test 19 ML/MIN/1.73 code = 88204) SODIUM (test code = 2231) 140 MEQ/L POTASSIUM (test code = 2228) 5.1 MEQ/L CHLORIDE (test code = 2215) 101 MEQ/L CARBON DIOXIDE (test code = 26 MEQ/L 2206) CALCIUM (test code = 2209) 8.9 MG/DL INTACT [id number] 00:00:00 Test Item Value Reference Range Interpretation Comments INTACT PTH (test code = 5005) 126 PG/ML INTACT [id number] 00:00:00 Test Item Value Reference Range Interpretation Comments INTACT PTH (test code = 5005) 126 PG/ML INTACT [id number] 00:00:00 Test Item Value Reference Range Interpretation Comments INTACT PTH (test code = 5005) 126 PG/ML PROTEIN/CREATININE RATIO, [id number] 00:00:00 Test Item Value Reference Range Interpretation Comments PROTEIN, URINE, CONC. (test 682 MG/DL code = 2104) CREATININE, URINE, CONC. (test 112.6 MG/DL code = 2072) CALC PROTEIN/CREATININE (test 6057 MG/GCREAT code = 2158) PROTEIN/CREATININE RATIO, [id number] 00:00:00 Test Item Value Reference Range Interpretation Comments PROTEIN, URINE, CONC. (test 682 MG/DL code = 2104) CREATININE, URINE, CONC. (test 112.6 MG/DL code = 2072) CALC PROTEIN/CREATININE (test 6057 MG/GCREAT code = 2158) VITAMIN D, 25 [id number] 00:00:00 Test Item Value Reference Range Interpretation Comments VITAMIN D, 25 OH (test code = 4958) 19 NG/ML VITAMIN D, 25 [id number] 00:00:00 Test Item Value Reference Range Interpretation Comments VITAMIN D, 25 OH (test code = 4958) 19 NG/ML BASIC METABOLIC [id number] 00:00:00 Test Item Value Reference Range Interpretation Comments GLUCOSE (test code = 2217) 279 MG/DL BUN (test code = 2208) 43 MG/DL CREATININE (test code = 2214) 2.63 MG/DL eGFR AMER. (test code 22 ML/MIN/1.73 = 67116) eGFR NON- AMER. (test 19 ML/MIN/1.73 code = 10957) SODIUM (test code = 2231) 140 MEQ/L POTASSIUM (test code = 2228) 5.1 MEQ/L CHLORIDE (test code = 2215) 101 MEQ/L CARBON DIOXIDE (test code = 26 MEQ/L 2206) CALCIUM (test code = 2209) 8.9 MG/DL BASIC METABOLIC [id number] 00:00:00 Test Item Value Reference Range Interpretation Comments GLUCOSE (test code = 2217) 279 MG/DL BUN (test code = 2208) 43 MG/DL CREATININE (test code = 2214) 2.63 MG/DL eGFR AMER. (test code 22 ML/MIN/1.73 = 98923) eGFR NON- AMER. (test 19 ML/MIN/1.73 code = 54505) SODIUM (test code = 2231) 140 MEQ/L POTASSIUM (test code = 2228) 5.1 MEQ/L CHLORIDE (test code = 2215) 101 MEQ/L CARBON DIOXIDE (test code = 26 MEQ/L 2206) CALCIUM (test code = 2209) 8.9 MG/DL INTACT [id number] 00:00:00 Test Item Value Reference Range Interpretation Comments INTACT PTH (test code = 5005) 126 PG/ML BASIC METABOLIC [id number] 00:00:00 Test Item Value Reference Range Interpretation Comments GLUCOSE (test code = 2217) 279 MG/DL BUN (test code = 2208) 43 MG/DL CREATININE (test code = 2214) 2.63 MG/DL eGFR AMER. (test code 22 ML/MIN/1.73 = 26565) eGFR NON- AMER. (test 19 ML/MIN/1.73 code = 07451) SODIUM (test code = 2231) 140 MEQ/L POTASSIUM (test code = 2228) 5.1 MEQ/L CHLORIDE (test code = 2215) 101 MEQ/L CARBON DIOXIDE (test code = 26 MEQ/L 2206) CALCIUM (test code = 2209) 8.9 MG/DL INTACT [id number] 00:00:00 Test Item Value Reference Range Interpretation Comments INTACT PTH (test code = 5005) 126 PG/ML INTACT [id number] 00:00:00 Test Item Value Reference Range Interpretation Comments INTACT PTH (test code = 5005) 126 PG/ML INTACT [id number] 00:00:00 Test Item Value Reference Range Interpretation Comments INTACT PTH (test code = 5005) 126 PG/ML PROTEIN/CREATININE RATIO, [id number] 00:00:00 Test Item Value Reference Range Interpretation Comments PROTEIN, URINE, CONC. (test 682 MG/DL code = 2104) CREATININE, URINE, CONC. (test 112.6 MG/DL code = 2072) CALC PROTEIN/CREATININE (test 6057 MG/GCREAT code = 2158) PROTEIN/CREATININE RATIO, [id number] 00:00:00 Test Item Value Reference Range Interpretation Comments PROTEIN, URINE, CONC. (test 682 MG/DL code = 2104) CREATININE, URINE, CONC. (test 112.6 MG/DL code = 2072) CALC PROTEIN/CREATININE (test 6057 MG/GCREAT code = 2158) VITAMIN D, 25 [id number] 00:00:00 Test Item Value Reference Range Interpretation Comments VITAMIN D, 25 OH (test code = 4958) 19 NG/ML VITAMIN D, 25 [id number] 00:00:00 Test Item Value Reference Range Interpretation Comments VITAMIN D, 25 OH (test code = 4958) 19 NG/ML INTACT [id number] 00:00:00 Test Item Value Reference Range Interpretation Comments INTACT PTH (test code = 5005) 126 PG/ML PROTEIN/CREATININE RATIO, [id number] 00:00:00 Test Item Value Reference Range Interpretation Comments PROTEIN, URINE, CONC. (test 682 MG/DL code = 2104) CREATININE, URINE, CONC. (test 112.6 MG/DL code = 2072) CALC PROTEIN/CREATININE (test 6057 MG/GCREAT code = 2158) VITAMIN D, 25 [id number] 00:00:00 Test Item Value Reference Range Interpretation Comments VITAMIN D, 25 OH (test code = 4958) 19 NG/ML BASIC METABOLIC [id number] 00:00:00 Test Item Value Reference Range Interpretation Comments GLUCOSE (test code = 2217) 279 MG/DL BUN (test code = 2208) 43 MG/DL CREATININE (test code = 2214) 2.63 MG/DL eGFR AMER. (test code 22 ML/MIN/1.73 = 10590) eGFR NON- AMER. (test 19 ML/MIN/1.73 code = 83096) SODIUM (test code = 2231) 140 MEQ/L POTASSIUM (test code = 2228) 5.1 MEQ/L CHLORIDE (test code = 2215) 101 MEQ/L CARBON DIOXIDE (test code = 26 MEQ/L 2206) CALCIUM (test code = 2209) 8.9 MG/DL BASIC METABOLIC [id number] 00:00:00 Test Item Value Reference Range Interpretation Comments GLUCOSE (test code = 2217) 279 MG/DL BUN (test code = 2208) 43 MG/DL CREATININE (test code = 2214) 2.63 MG/DL eGFR AMER. (test code 22 ML/MIN/1.73 = 32228) eGFR NON- AMER. (test 19 ML/MIN/1.73 code = 56063) SODIUM (test code = 2231) 140 MEQ/L POTASSIUM (test code = 2228) 5.1 MEQ/L CHLORIDE (test code = 2215) 101 MEQ/L CARBON DIOXIDE (test code = 26 MEQ/L 2206) CALCIUM (test code = 2209) 8.9 MG/DL LIPID [id number] 00:00:00 Test Item Value Reference Range Interpretation Comments CHOLESTEROL (test code = 2210) 166 MG/DL TRIGLYCERIDES (test code = 2232) 77 MG/DL HDL CHOLESTEROL (test code = 2220) 71 MG/DL CALC LDL CHOL (test code = 2237) 80 MG/DL RISK RATIO LDL/HDL (test code = 1.12 RATIO 2238) LIPID [id number] 00:00:00 Test Item Value Reference Range Interpretation Comments CHOLESTEROL (test code = 2210) 166 MG/DL TRIGLYCERIDES (test code = 2232) 77 MG/DL HDL CHOLESTEROL (test code = 2220) 71 MG/DL CALC LDL CHOL (test code = 2237) 80 MG/DL RISK RATIO LDL/HDL (test code = 1.12 RATIO 2238) COMPREHENSIVE METABOLIC [id number] 00:00:00 Test Item Value Reference Range Interpretation Comments GLUCOSE (test code = 2217) 241 MG/DL BUN (test code = 2208) 42 MG/DL CREATININE (test code = 2214) 2.62 MG/DL eGFR AMER. (test code 22 ML/MIN/1.73 = 50743) eGFR NON- AMER. (test 19 ML/MIN/1.73 code = 91953) CALC BUN/CREAT (test code = 16 RATIO [...] A/G RATIO (test code = 1.0 RATIO 223) BILIRUBIN, TOTAL (test code = 0.3 MG/DL 2206) ALKALINE PHOSPHATASE (test 165 U/L code = 2204) AST (test code = 2218) 20 U/L ALT (test code = 2219) 10 U/L COMPREHENSIVE METABOLIC [id number] 00:00:00 Test Item Value Reference Range Interpretation Comments GLUCOSE (test code = 2217) 241 MG/DL BUN (test code = 2208) 42 MG/DL CREATININE (test code = 2214) 2.62 MG/DL eGFR AMER. (test code 22 ML/MIN/1.73 = 96063) eGFR NON- AMER. (test 19 ML/MIN/1.73 code = 93810) CALC BUN/CREAT (test code = 16 RATIO [...] ALT (test code = 2219) 10 U/L [id number] 00:00:00 Test Item Value Reference Range Interpretation Comments TSH, THIRD GENERATION (test code 1.300 UIU/ML = 2821) [id number] 00:00:00 Test Item Value Reference Range Interpretation Comments TSH, THIRD GENERATION (test code 1.300 UIU/ML = 2821) [id number] 00:00:00 Test Item Value Reference Range Interpretation Comments TSH, THIRD GENERATION (test code 1.300 UIU/ML = 2821) MICROALBUMIN/CREATININE, RANDOM AND [id number] 00:00:00 Test Item Value Reference Range Interpretation Comments CREATININE, URINE, CONC. (test 33.9 MG/DL code = 2072) ALBUMIN, URINE, RANDOM (test code 196.7 MG/DL = 52166) CALC ALBUMIN/CREAT, RND (test 5802 MG/G code = 11140) MICROALBUMIN/CREATININE, RANDOM AND [id number] 00:00:00 Test Item Value Reference Range Interpretation Comments CREATININE, URINE, CONC. (test 33.9 MG/DL code = 2072) ALBUMIN, URINE, RANDOM (test code 196.7 MG/DL = 78859) CALC ALBUMIN/CREAT, RND (test 5802 MG/G code = 39208) HEMOGLOBIN [id number] 00:00:00 Test Item Value Reference Range Interpretation Comments HEMOGLOBIN A1c (test code = 22298) 9.5 % HEMOGLOBIN [id number] 00:00:00 Test Item Value Reference Range Interpretation Comments HEMOGLOBIN A1c (test code = 34428) 9.5 % HEMOGLOBIN [id number] 00:00:00 Test Item Value Reference Range Interpretation Comments HEMOGLOBIN A1c (test code = 54083) 9.5 % LIPID [id number] 00:00:00 Test Item Value Reference Range Interpretation Comments CHOLESTEROL (test code = 2210) 166 MG/DL TRIGLYCERIDES (test code = 2232) 77 MG/DL HDL CHOLESTEROL (test code = 2220) 71 MG/DL CALC LDL CHOL (test code = 2237) 80 MG/DL RISK RATIO LDL/HDL (test code = 1.12 RATIO 2238) LIPID [id number] 00:00:00 Test Item Value Reference Range Interpretation Comments CHOLESTEROL (test code = 2210) 166 MG/DL TRIGLYCERIDES (test code = 2232) 77 MG/DL HDL CHOLESTEROL (test code = 2220) 71 MG/DL CALC LDL CHOL (test code = 2237) 80 MG/DL RISK RATIO LDL/HDL (test code = 1.12 RATIO 2238) COMPREHENSIVE METABOLIC [id number] 00:00:00 Test Item Value Reference Range Interpretation Comments GLUCOSE (test code = 2217) 241 MG/DL BUN (test code = 2208) 42 MG/DL CREATININE (test code = 2214) 2.62 MG/DL eGFR AMER. (test code 22 ML/MIN/1.73 = 73586) eGFR NON- AMER. (test 19 ML/MIN/1.73 code = 37320) CALC BUN/CREAT (test code = 16 RATIO [...] code = 2219) 10 U/L COMPREHENSIVE METABOLIC [id number] 00:00:00 Test Item Value Reference Range Interpretation Comments GLUCOSE (test code = 2217) 241 MG/DL BUN (test code = 2208) 42 MG/DL CREATININE (test code = 2214) 2.62 MG/DL eGFR AMER. (test code 22 ML/MIN/1.73 = 02402) eGFR NON- AMER. (test 19 ML/MIN/1.73 code = 77691) CALC BUN/CREAT (test code = 16 RATIO [...] ALT (test code = 2219) 10 U/L [id number] 00:00:00 Test Item Value Reference Range Interpretation Comments TSH, THIRD GENERATION (test code 1.300 UIU/ML = 2821) [id number] 00:00:00 Test Item Value Reference Range Interpretation Comments TSH, THIRD GENERATION (test code 1.300 UIU/ML = 2821) [id number] 00:00:00 Test Item Value Reference Range Interpretation Comments TSH, THIRD GENERATION (test code 1.300 UIU/ML = 2821) MICROALBUMIN/CREATININE, RANDOM AND [id number] 00:00:00 Test Item Value Reference Range Interpretation Comments CREATININE, URINE, CONC. (test 33.9 MG/DL code = 2072) ALBUMIN, URINE, RANDOM (test code 196.7 MG/DL = 69982) CALC ALBUMIN/CREAT, RND (test 5802 MG/G code = 96247) MICROALBUMIN/CREATININE, RANDOM AND [id number] 00:00:00 Test Item Value Reference Range Interpretation Comments CREATININE, URINE, CONC. (test 33.9 MG/DL code = 2072) ALBUMIN, URINE, RANDOM (test code 196.7 MG/DL = 87390) CALC ALBUMIN/CREAT, RND (test 5802 MG/G code = 05086) HEMOGLOBIN [id number] 00:00:00 Test Item Value Reference Range Interpretation Comments HEMOGLOBIN A1c (test code = 16208) 9.5 % HEMOGLOBIN [id number] 00:00:00 Test Item Value Reference Range Interpretation Comments HEMOGLOBIN A1c (test code = 33914) 9.5 % HEMOGLOBIN [id number] 00:00:00 Test Item Value Reference Range Interpretation Comments HEMOGLOBIN A1c (test code = 46663) 9.5 % LIPID [id number] 00:00:00 Test Item Value Reference Range Interpretation Comments CHOLESTEROL (test code = 2210) 166 MG/DL TRIGLYCERIDES (test code = 2232) 77 MG/DL HDL CHOLESTEROL (test code = 2220) 71 MG/DL CALC LDL CHOL (test code = 2237) 80 MG/DL RISK RATIO LDL/HDL (test code = 1.12 RATIO 2238) LIPID [id number] 00:00:00 Test Item Value Reference Range Interpretation Comments CHOLESTEROL (test code = 2210) 166 MG/DL TRIGLYCERIDES (test code = 2232) 77 MG/DL HDL CHOLESTEROL (test code = 2220) 71 MG/DL CALC LDL CHOL (test code = 2237) 80 MG/DL RISK RATIO LDL/HDL (test code = 1.12 RATIO 2238) COMPREHENSIVE METABOLIC [id number] 00:00:00 Test Item Value Reference Range Interpretation Comments GLUCOSE (test code = 2217) 241 MG/DL BUN (test code = 2208) 42 MG/DL CREATININE (test code = 2214) 2.62 MG/DL eGFR AMER. (test code 22 ML/MIN/1.73 = 42241) eGFR NON- AMER. (test 19 ML/MIN/1.73 code = 94747) CALC BUN/CREAT (test code = 16 RATIO [...] code = 2219) 10 U/L COMPREHENSIVE METABOLIC [id number] 00:00:00 Test Item Value Reference Range Interpretation Comments GLUCOSE (test code = 2217) 241 MG/DL BUN (test code = 2208) 42 MG/DL CREATININE (test code = 2214) 2.62 MG/DL eGFR AMER. (test code 22 ML/MIN/1.73 = 67766) eGFR NON- AMER. (test 19 ML/MIN/1.73 code = 10402) CALC BUN/CREAT (test code = 16 RATIO [...] ALT (test code = 2219) 10 U/L [id number] 00:00:00 Test Item Value Reference Range Interpretation Comments TSH, THIRD GENERATION (test code 1.300 UIU/ML = 2821) [id number] 00:00:00 Test Item Value Reference Range Interpretation Comments TSH, THIRD GENERATION (test code 1.300 UIU/ML = 2821) [id number] 00:00:00 Test Item Value Reference Range Interpretation Comments TSH, THIRD GENERATION (test code 1.300 UIU/ML = 2821) MICROALBUMIN/CREATININE, RANDOM AND [id number] 00:00:00 Test Item Value Reference Range Interpretation Comments CREATININE, URINE, CONC. (test 33.9 MG/DL code = 2072) ALBUMIN, URINE, RANDOM (test code 196.7 MG/DL = 54445) CALC ALBUMIN/CREAT, RND (test 5802 MG/G code = 25094) MICROALBUMIN/CREATININE, RANDOM AND [id number] 00:00:00 Test Item Value Reference Range Interpretation Comments CREATININE, URINE, CONC. (test 33.9 MG/DL code = 2072) ALBUMIN, URINE, RANDOM (test code 196.7 MG/DL = 19720) CALC ALBUMIN/CREAT, RND (test 5802 MG/G code = 79546) HEMOGLOBIN [id number] 00:00:00 Test Item Value Reference Range Interpretation Comments HEMOGLOBIN A1c (test code = 76416) 9.5 % HEMOGLOBIN [id number] 00:00:00 Test Item Value Reference Range Interpretation Comments HEMOGLOBIN A1c (test code = 52240) 9.5 % HEMOGLOBIN [id number] 00:00:00 Test Item Value Reference Range Interpretation Comments HEMOGLOBIN A1c (test code = 74128) 9.5 % LIPID [id number] 00:00:00 Test Item Value Reference Range Interpretation Comments CHOLESTEROL (test code = 2210) 166 MG/DL TRIGLYCERIDES (test code = 2232) 77 MG/DL HDL CHOLESTEROL (test code = 2220) 71 MG/DL CALC LDL CHOL (test code = 2237) 80 MG/DL RISK RATIO LDL/HDL (test code = 1.12 RATIO 2238) LIPID [id number] 00:00:00 Test Item Value Reference Range Interpretation Comments CHOLESTEROL (test code = 2210) 166 MG/DL TRIGLYCERIDES (test code = 2232) 77 MG/DL HDL CHOLESTEROL (test code = 2220) 71 MG/DL CALC LDL CHOL (test code = 2237) 80 MG/DL RISK RATIO LDL/HDL (test code = 1.12 RATIO 2238) COMPREHENSIVE METABOLIC [id number] 00:00:00 Test Item Value Reference Range Interpretation Comments GLUCOSE (test code = 2217) 241 MG/DL BUN (test code = 2208) 42 MG/DL CREATININE (test code = 2214) 2.62 MG/DL eGFR AMER. (test code 22 ML/MIN/1.73 = 39719) eGFR NON- AMER. (test 19 ML/MIN/1.73 code = 14614) CALC BUN/CREAT (test code = 16 RATIO [...] code = 2219) 10 U/L COMPREHENSIVE METABOLIC [id number] 00:00:00 Test Item Value Reference Range Interpretation Comments GLUCOSE (test code = 2217) 241 MG/DL BUN (test code = 2208) 42 MG/DL CREATININE (test code = 2214) 2.62 MG/DL eGFR AMER. (test code 22 ML/MIN/1.73 = 42858) eGFR NON- AMER. (test 19 ML/MIN/1.73 code = 58616) CALC BUN/CREAT (test code = 16 RATIO [...] ALT (test code = 2219) 10 U/L [id number] 00:00:00 Test Item Value Reference Range Interpretation Comments TSH, THIRD GENERATION (test code 1.300 UIU/ML = 2821) [id number] 00:00:00 Test Item Value Reference Range Interpretation Comments TSH, THIRD GENERATION (test code 1.300 UIU/ML = 2821) [id number] 00:00:00 Test Item Value Reference Range Interpretation Comments TSH, THIRD GENERATION (test code 1.300 UIU/ML = 2821) MICROALBUMIN/CREATININE, RANDOM AND [id number] 00:00:00 Test Item Value Reference Range Interpretation Comments CREATININE, URINE, CONC. (test 33.9 MG/DL code = 2072) ALBUMIN, URINE, RANDOM (test code 196.7 MG/DL = 17407) CALC ALBUMIN/CREAT, RND (test 5802 MG/G code = 58169) MICROALBUMIN/CREATININE, RANDOM AND [id number] 00:00:00 Test Item Value Reference Range Interpretation Comments CREATININE, URINE, CONC. (test 33.9 MG/DL code = 2072) ALBUMIN, URINE, RANDOM (test code 196.7 MG/DL = 13967) CALC ALBUMIN/CREAT, RND (test 5802 MG/G code = 48773) HEMOGLOBIN [id number] 00:00:00 Test Item Value Reference Range Interpretation Comments HEMOGLOBIN A1c (test code = 41822) 9.5 % HEMOGLOBIN [id number] 00:00:00 Test Item Value Reference Range Interpretation Comments HEMOGLOBIN A1c (test code = 85470) 9.5 % HEMOGLOBIN [id number] 00:00:00 Test Item Value Reference Range Interpretation Comments HEMOGLOBIN A1c (test code = 94439) 9.5 % LIPID [id number] 00:00:00 Test Item Value Reference Range Interpretation Comments CHOLESTEROL (test code = 2210) 166 MG/DL TRIGLYCERIDES (test code = 2232) 77 MG/DL HDL CHOLESTEROL (test code = 2220) 71 MG/DL CALC LDL CHOL (test code = 2237) 80 MG/DL RISK RATIO LDL/HDL (test code = 1.12 RATIO 2238) HEMOGLOBIN [id number] 00:00:00 Test Item Value Reference Range Interpretation Comments HEMOGLOBIN A1c (test code = 75559) 9.5 % HEMOGLOBIN [id number] 00:00:00 Test Item Value Reference Range Interpretation Comments HEMOGLOBIN A1c (test code = 89185) 9.5 % LIPID [id number] 00:00:00 Test Item Value Reference Range Interpretation Comments CHOLESTEROL (test code = 2210) 166 MG/DL TRIGLYCERIDES (test code = 2232) 77 MG/DL HDL CHOLESTEROL (test code = 2220) 71 MG/DL CALC LDL CHOL (test code = 2237) 80 MG/DL RISK RATIO LDL/HDL (test code = 1.12 RATIO 2238) LIPID [id number] 00:00:00 Test Item Value Reference Range Interpretation Comments CHOLESTEROL (test code = 2210) 166 MG/DL TRIGLYCERIDES (test code = 2232) 77 MG/DL HDL CHOLESTEROL (test code = 2220) 71 MG/DL CALC LDL CHOL (test code = 2237) 80 MG/DL RISK RATIO LDL/HDL (test code = 1.12 RATIO 2238) COMPREHENSIVE METABOLIC [id number] 00:00:00 Test Item Value Reference Range Interpretation Comments GLUCOSE (test code = 2217) 241 MG/DL BUN (test code = 2208) 42 MG/DL CREATININE (test code = 2214) 2.62 MG/DL eGFR AMER. (test code 22 ML/MIN/1.73 = 56968) eGFR NON- AMER. (test 19 ML/MIN/1.73 code = 57955) CALC BUN/CREAT (test code = 16 RATIO [...] code = 2219) 10 U/L COMPREHENSIVE METABOLIC [id number] 00:00:00 Test Item Value Reference Range Interpretation Comments GLUCOSE (test code = 2217) 241 MG/DL BUN (test code = 2208) 42 MG/DL CREATININE (test code = 2214) 2.62 MG/DL eGFR AMER. (test code 22 ML/MIN/1.73 = 46044) eGFR NON- AMER. (test 19 ML/MIN/1.73 code = 36420) CALC BUN/CREAT (test code = 16 RATIO 2235) SODIUM (test code = 2231) 137 MEQ/L POTASSIUM (test code = 2228) 4.7 MEQ/L CHLORIDE (test code = 2215) 98 MEQ/L CARBON DIOXIDE (test code = 25 MEQ/L 2205) CALCIUM (test code = 2209) 8.8 MG/DL PROTEIN, TOTAL (test code = 6.7 G/DL 2228) ALBUMIN (test code = 220) 3.4 G/DL CALC GLOBULIN (test code = 3.3 G/DL 2239) CALC A/G RATIO (test code = 1.0 RATIO 2233) BILIRUBIN, TOTAL (test code = 0.3 MG/DL 2206) ALKALINE PHOSPHATASE (test 165 U/L code = 2204) AST (test code = 2218) 20 U/L ALT (test code = 2219) 10 U/L [id number] 00:00:00 Test Item Value Reference Range Interpretation Comments TSH, THIRD GENERATION (test code 1.300 UIU/ML = 2821) [id number] 00:00:00 Test Item Value Reference Range Interpretation Comments TSH, THIRD GENERATION (test code 1.300 UIU/ML = 2821) [id number] 00:00:00 Test Item Value Reference Range Interpretation Comments TSH, THIRD GENERATION (test code 1.300 UIU/ML = 2821) MICROALBUMIN/CREATININE, RANDOM AND [id number] 00:00:00 Test Item Value Reference Range Interpretation Comments CREATININE, URINE, CONC. (test 33.9 MG/DL code = 2072) ALBUMIN, URINE, RANDOM (test code 196.7 MG/DL = 49807) CALC ALBUMIN/CREAT, RND (test 5802 MG/G code = 67368) MICROALBUMIN/CREATININE, RANDOM AND [id number] 00:00:00 Test Item Value Reference Range Interpretation Comments CREATININE, URINE, CONC. (test 33.9 MG/DL code = 2072) ALBUMIN, URINE, RANDOM (test code 196.7 MG/DL = 08660) CALC ALBUMIN/CREAT, RND (test 5802 MG/G code = 08112) COMPREHENSIVE METABOLIC [id number] 00:00:00 Test Item Value Reference Range Interpretation Comments GLUCOSE (test code = 2217) 241 MG/DL BUN (test code = 2208) 42 MG/DL CREATININE (test code = 2214) 2.62 MG/DL eGFR AMER. (test code 22 ML/MIN/1.73 = 21723) eGFR NON- AMER. (test 19 ML/MIN/1.73 code = 62873) CALC BUN/CREAT (test code = 16 RATIO [...] ALT (test code = 2219) 10 U/L [id number] 00:00:00 Test Item Value Reference Range Interpretation Comments TSH, THIRD GENERATION (test code 1.300 UIU/ML = 2821) [id number] 00:00:00 Test Item Value Reference Range Interpretation Comments TSH, THIRD GENERATION (test code 1.300 UIU/ML = 2821) MICROALBUMIN/CREATININE, RANDOM AND [id number] 00:00:00 Test Item Value Reference Range Interpretation Comments CREATININE, URINE, CONC. (test 33.9 MG/DL code = 2072) ALBUMIN, URINE, RANDOM (test code 196.7 MG/DL = 26034) CALC ALBUMIN/CREAT, RND (test 5802 MG/G code = 16902) HEMOGLOBIN [id number] 00:00:00 Test Item Value Reference Range Interpretation Comments HEMOGLOBIN A1c (test code = 34390) 9.5 % HEMOGLOBIN [id number] 00:00:00 Test Item Value Reference Range Interpretation Comments HEMOGLOBIN A1c (test code = 64066) 9.5 % HEMOGLOBIN [id number] 00:00:00 Test Item Value Reference Range Interpretation Comments HEMOGLOBIN A1c (test code = 50411) 9.5 %
[2022-08-18 16:43] LABS: SARS-CoV-2 Antigen Rapid Res Negative (Negative)
[2022-08-18 17:02] LABS: Hematocrit 45.9 % (36.0-45.0); Lymphocytes % 6.6 % (15.3-44.8); MCV 93.8 fL (80-100); MPV 10.8 fL (7.6-11.3)
[2022-08-18 17:10] LABS: Protime INR 1.29
[2022-08-18 17:21] LABS: BUN Blood Urea Nitrogen 28 mg/dL (7-18); Bicarbonate 24 mmol/L (21-32); Glomerular Filtration Rate 12 ml/min (=/>90); Glucose Level 321 mg/dL (74-106); Magnesium 2.3 mg/dL (1.6-2.4); NT PRO-BNP > 35000 pg/mL (<125); Potassium 3.6 mmol/L (3.5-5.1); Sodium Level 128 mmol/L (136-145)
--- NOTE | 2022-08-18 17:42 | RAD REPORT ---
EXAM DESCRIPTION: US - Upper Ext Artery Uni Willian - 08/18/2022 5:19 pm CLINICAL HISTORY: PAIN COMPARISON: Extremity Nonvascular Complete dated 07/04/2022 TECHNIQUE: Left upper extremity arterial Doppler examination was performed with waveform tracing. FINDINGS: Biphasic flow noted throughout the axillary through brachial artery with spectral broadeni ng, which may relate to hyperdynamic circulation given its presence of an AV fistula. Monophasic flow with blunted upstroke along the radial and ulnar arteries. The evaluated left common carotid artery reveals high resistive waveform pattern. IMPRESSION: Monophasic flow with blunted upstroke along the radial and ulnar arteries, concerning fo r moderate peripheral vascular disease. Left common carotid artery reveals high resistive waveform pattern, which can be related to distal st enosis. The findings were communicated to Ben Page on 08/18/2022 at 17:33 hours.
--- NOTE | 2022-08-18 17:44 | RAD REPORT ---
EXAM DESCRIPTION: US - UPPER EXTREMITY VENOUS UNILATE - 08/18/2022 5:19 pm CLINICAL HISTORY: Pain COMPARISON: None. TECHNIQUE: Real-time sonographic evaluation of the left upper extremity deep venous system was perfo rmed. FINDINGS: Patent AV fistula. Normal compressibility, flow augmentation, phasic flow and spontaneous flow is identified in the visualized left upper extremity deep venous system, although evaluation is limited given patient's pain and limited compressibility. No intraluminal filling defects seen. IMPRESSION: No evidence of deep venous thrombosis of the left upper extremity.
[2022-08-18] MEDS ORDERED: FENTANYL CITR 100 MCG/2 ML ONE (17:46)
[2022-08-18] MEDS ORDERED: INSULIN -REGULAR HUMAN 50 UNIT/0.5 ML ML ONE (18:10)
--- NOTE | 2022-08-18 18:31 | ER ---
Nurse's Notes [facility] Name: Margarita Dominique Age: 62 yrs Sex: Female : 1960 Arrival Date: 08/18/2022 Time: 15:03 Bed 8 Private MD: Diagnosis: Cutaneous abscess of left hand;Cellulitis of left upper limb Presentation: 08/18 15:25 Chief complaint: Patient states: Reports left hand and fourth digit pain. Coronavirus sg5 screen: Vaccine status: Patient reports receiving the 2nd dose of the covid vaccine. Ebola Screen: No symptoms or risks identified at this time. Initial Sepsis Screen: Does the patient meet any 2 criteria? No. Patient's initial sepsis screen is negative. Does the patient have a suspected source of infection? No. Patient's initial sepsis screen is negative. Risk Assessment: Do you want to hurt yourself or someone else? Patient reports no desire to harm self or others. Onset of symptoms was August 16, 2022. 15:25 Method Of Arrival: Wheelchair sg5 15:25 Acuity: YEFRI 3 sg5 Triage Assessment: 15:29 General: Appears uncomfortable, Behavior is calm, cooperative, appropriate for age. sg5 Pain: Complains of pain in left hand 4th digit. 15:29 Pain: Pain currently is 6 out of 10 on a pain scale. sg5 Historical: - Allergies: 15:29 No Known Allergies; sg5 - PMHx: 15:29 CVA; Diabetes - NIDDM; Dialysis; Hypertension; HEART FAILURE; Hypothyroidism; vitamin d sg5 deficiency; - PSHx: 15:29 LUE fistula; sg5 - Immunization history:: Adult Immunizations up to date, Client reports receiving the 2nd dose of the Covid vaccine, Last tetanus immunization: unknown, Flu vaccine is up to date. - Social history:: Smoking status: Patient denies any tobacco usage or history of. Screenin:57 [facility] ED Fall Risk Assessment (Adult) History of falling in the last [address], [facility] including since admission Confusion or Disorientation. Abuse screen: Denies threats or abuse. Denies injuries from another. Nutritional screening: No deficits noted. Tuberculosis screening: No symptoms or risk factors identified. Assessment: 16:50 Reassessment: unable to get access at this time; blood work and line delayed at this jh5 time. epic specialist notified. RN x3 attempted line. Vital Signs: 15:25 BP 133 / 41; Pulse 94; Resp 16; Temp 97.5; Pulse Ox 98% on R/A; Weight 54.88 kg; Height sg5 5 ft. 0 in. (152.40 cm); Pain 6/10; 18:45 BP 125 / 48; Pulse 88; Pulse Ox 95% on R/A; ap3 20:36 BP 128 / 56; Pulse 84; Resp 18 S; Pulse Ox 98% on R/A; as6 15:25 Body Mass Index 23.63 (54.88 kg, 152.40 cm) sg5 ED Course: 15:03 Patient arrived in ED. am2 15:08 Ben Magaña PA is PHCP. cp 15:09 Mac Aguero DO is Attending Physician. cp 15:29 Triage completed. sg5 15:29 Arm band placed on right wrist. sg5 16:28 SARS RAPID Sent. ld1 17:20 Missed attempt(s): 22 gauge in right forearm. Bleeding controlled, band aid applied, iw catheter tip intact. 17:33 Inserted saline lock: 22 gauge in right forearm, using aseptic technique. iw 17:57 Patient has correct armband on for positive identification. Bed in low position. Call [facility] light in reach. Side rails up X 1. Side rails up X2. 17:57 No provider procedures requiring assistance completed. jh5 18:29 Franc Borges MD is Hospitalizing Provider. cp 18:39 XRAY Hand LEFT 3 View In Process Unspecified. EDMS 18:39 XRAY Chest (1 view) In Process Unspecified. EDMS 19:08 Fadi Nava, TIFFANY is Primary Nurse. as6 20:36 Patient admitted, IV remains in place. as6 Administered Medications: 17:49 Drug: fentaNYL (PF) 25 mcg Route: IVP; Site: right forearm; 5 21:24 Follow up: Response: No adverse reaction as6 18:10 Drug: Insulin Regular Human 10 units {Co-Signature: ld1 (Jackelin Raymond RN).} Route: jh5 IVP; Site: right forearm; 21:24 Follow up: Response: No adverse reaction as6 19:54 Drug: Cefepime 1 grams Route: IVPB; Rate: 200 ml/hr; Infused Over: 30 mins; Site: right as6 forearm; 21:24 Follow up: Response: No adverse reaction; IV Status: Completed infusion; IV Intake: as6 100ml 20:35 Drug: vancoMYCIN 1 grams Route: IVPB; Infused Over: 2 hrs; Site: right forearm; as6 21:24 Follow up: Response: No adverse reaction; IV Status: Infusion continued upon admission; as6 IV Intake: 170ml Medication: 17:57 VIS not applicable for this client. jh5 Intake: 21:24 IV: 170ml; Total: 170ml. as6 21:24 IV: 100ml; Total: 270ml. as6 Outcome: 18:30 Decision to Hospitalize by Provider. cp 20:35 Condition: stable as6 20:35 Instructed on the need for admit. 21:28 Admitted to Tele accompanied by tech, via wheelchair, room 416, with chart, Report as6 called to Lakeisha ALLEN 21:28 Patient left the ED. as6 Signatures: Dispatcher [employer] EDNiru Robbins, RN RN Ben Donald, KAREN PA Oralia Parra amOralia Hernandez RN RN ap3 Jackelin Raymond RN RN ld1 Marie Trent RN RN jh5 Fadi Nava RN RN as6 Madeleine Garcia RN RN sg5 Jackelin Raymond RN ld1
--- NOTE | 2022-08-18 18:31 | EDPHYS ---
Physician Documentation [facility] Name: Margarita Dominique Age: 62 yrs Sex: Female : 1960 Arrival Date: 08/18/2022 Time: 15:03 Bed 8 Private MD: ED Physician Mac Aguero HPI: 08/18 16:05 This 62 yrs old Female presents to ER via Wheelchair with complaints of Hand cp Pain, Wound Infection. 16:05 The patient or guardian reports pain. cp 16:05 The complaints affect the stewart side of left hand. cp 16:05 Associated signs and symptoms: Pertinent negatives:. Patient is a 62-year-old female cp brought to the emergency department accompanied by her son with complaints of left hand pain. Son reports patient was referred to the emergency department to be admitted for planned surgery to left hand by Dr. Christy. Son reports patient had appointment today with Dr. Christy and was told to proceed to the emergency room for evaluation after dialysis. 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 Christy in June 2022. Historical: - Allergies: 15:29 No Known Allergies; sg5 - PMHx: 15:29 CVA; Diabetes - NIDDM; Dialysis; Hypertension; HEART FAILURE; Hypothyroidism; vitamin d sg5 deficiency; - PSHx: 15:29 LUE fistula; sg5 - Immunization history:: Adult Immunizations up to date, Client reports receiving the 2nd dose of the Covid vaccine, Last tetanus immunization: unknown, Flu vaccine is up to date. - Social history:: Smoking status: Patient denies any tobacco usage or history of. ROS: 16:10 Constitutional: Negative for fever. cp 16:10 Eyes: Negative for injury, pain, redness, and discharge. cp 16:10 Cardiovascular: Negative for chest pain. 16:10 Respiratory: Negative for cough, shortness of breath, wheezing. 16:10 Abdomen/GI: Negative for abdominal pain, vomiting, diarrhea, constipation. cp 16:10 MS/extremity: Positive for pain, of the left hand. 16:10 Neuro: Negative for altered mental status, headache. 16:10 All other systems are negative. cp Exam: 16:15 Constitutional: The patient appears in no acute distress, alert, awake, cp non-diaphoretic, non-toxic, well developed, well nourished. 16:15 Head/Face: Normocephalic, atraumatic. cp 16:15 Eyes: Periorbital structures: appear normal, Conjunctiva: normal, no exudate, no cp injection, Sclera: no appreciated abnormality, Lids and lashes: appear normal, bilaterally. 16:15 ENT: External ear(s): are unremarkable, Nose: is normal, Mouth: Lips: moist, Oral mucosa: moist, Posterior pharynx: is normal, airway is patent, no erythema, no exudate. 16:15 Chest/axilla: Inspection: normal. 16:15 Cardiovascular: Rate: normal, Rhythm: regular. 16:15 Respiratory: the patient does not display signs of respiratory distress, Respirations: cp normal, no use of accessory muscles, no retractions, labored breathing, is not present, Breath sounds: are clear throughout, no decreased breath sounds, no stridor, no wheezing. 16:15 Abdomen/GI: Inspection: abdomen appears normal, Palpation: abdomen is soft and non-tender, in all quadrants. 16:15 Musculoskeletal/extremity: Extremities: noted in the left hand: Marked pain to palpation palmar side, area of abscess noted, left fourth finger amputated with a surgical wound appearing with mild dehiscence and discoloration, no drainage from surgical wound, right BKA. 16:15 Neuro: Orientation: no acute changes, Mentation: is normal. 16:30 ECG was reviewed by the Attending Physician. cp Vital Signs: 15:25 BP 133 / 41; Pulse 94; Resp 16; Temp 97.5; Pulse Ox 98% on R/A; Weight 54.88 kg; Height sg5 5 ft. 0 in. (152.40 cm); Pain 6/10; 18:45 BP 125 / 48; Pulse 88; Pulse Ox 95% on R/A; ap3 20:36 BP 128 / 56; Pulse 84; Resp 18 S; Pulse Ox 98% on R/A; as6 15:25 Body Mass Index 23.63 (54.88 kg, 152.40 cm) sg5 MDM: 15:30 Patient medically screened. cp 17:00 Differential diagnosis: sepsis, cellulitis, abscess, osteomyelitis. cp 18:24 Data reviewed: vital signs, nurses notes, lab test result(s), EKG, radiologic studies, cp plain films, ultrasound. Management of patient was discussed with the following: Mat Linker: DR Christy who requests admission to services of hospitalist for I\T\D of left hand tomorrow. 19:15 ED course: spoke with Vahid Augustin NP who reports DR Broges has declined admission due to cp lack of vascular surgery availability and is requesting transfer. 19:21 ED course: spoke with DR Christy concerning issue with admission and DR Borges cp refusing at this time, will reach out to DR Heredia for possible admission. Msg left on voicemail of DR Heredia \[id number]. 20:00 ED course: after DR Aguero discussion with DR Broges concerning admission, DR Borges has cp agreed to admit patient and consult DR Christy. 08/18 16:03 Order name: CRP cp 08/18 16:03 Order name: Basic Metabolic Panel cp 08/18 16:03 Order name: CBC with Diff cp 08/18 16:03 Order name: Magnesium cp 08/18 16:03 Order name: NT PRO-BNP cp 08/18 16:03 Order name: PT-INR cp 08/18 16:04 Order name: SARS RAPID jh5 08/18 16:44 Order name: SARS-COV-2 Antigen Rapid; Complete Time: 17:13 EDMS 08/18 17:06 Order name: CBC with Automated Diff; Complete Time: 17:13 EDMS 08/18 17:13 Interpretation: Normal except: WBC 14.70; RBC 4.90; HCT 45.9; MCHC 31.6; PLT 95; RDW cp 15.7; TATA% 86.6; LYM% 6.6; NEUT A 12.7. 08/18 17:10 Order name: Protime (+INR); Complete Time: 17:13 EDMS 08/18 17:22 Order name: Basic Metabolic Panel; Complete Time: 17:48 EDMS 08/18 17:49 Interpretation: Normal except: NA 128; CL 94; GLUC 321; BUN 28; CRE 3.96; GFR 12. cp 08/18 17:22 Order name: NT PRO-BNP; Complete Time: 17:48 EDMS 08/18 17:49 Interpretation: Abnormal: NT PRO-BNP > 49344. cp 08/18 17:22 Order name: C-Reactive Protein; Complete Time: 17:48 EDMS 08/18 17:22 Order name: Magnesium; Complete Time: 17:48 EDMS 08/18 16:03 Order name: XRAY Hand LEFT 3 View; Complete Time: 18:58 cp 08/18 16:03 Order name: US Extremity Venous Unilateral Ltd cp 08/18 16:03 Order name: US LE Artery Uni Ltd cp 08/18 16:03 Order name: IV; Complete Time: 16:28 cp 08/18 16:03 Order name: XRAY Chest (1 view); Complete Time: 18:58 cp 08/18 16:03 Order name: EKG; Complete Time: 16:04 cp 08/18 16:03 Order name: Cardiac monitoring; Complete Time: 16:55 cp 08/18 17:43 Order name: US; Complete Time: 17:48 EDMS 08/18 17:49 Interpretation: Report reviewed. 08/18 17:45 Order name: US; Complete Time: 17:48 EDMS 08/18 17:49 Interpretation: Report reviewed. 08/18 17:51 Order name: Lactate w/ 2H reflex if indic. 08/18 17:51 Order name: Blood Culture Adult (2) 08/18 17:52 Order name: Procalcitonin 08/18 16:03 Order name: EKG - Nurse/Tech; Complete Time: 16:28 cp 08/18 16:03 Order name: Labs collected and sent; Complete Time: 17:41 cp 08/18 16:03 Order name: O2 Per Protocol; Complete Time: 16:04 08/18 16:03 Order name: O2 Sat Monitoring; Complete Time: 16:04 cp EC:30 Rate is 94 beats/min. Rhythm is regular. MA interval is normal. QRS interval is cp prolonged at 116 msec. QT interval is normal. Interpreted by me. Reviewed by me. Administered Medications: 17:49 Drug: fentaNYL (PF) 25 mcg Route: IVP; Site: right forearm; [facility] 21:24 Follow up: Response: No adverse reaction as6 18:10 Drug: Insulin Regular Human 10 units {Co-Signature: ld1 (Jackelin Raymond RN).} Route: jh5 IVP; Site: right forearm; 21:24 Follow up: Response: No adverse reaction as6 19:54 Drug: Cefepime 1 grams Route: IVPB; Rate: 200 ml/hr; Infused Over: 30 mins; Site: right as6 forearm; 21:24 Follow up: Response: No adverse reaction; IV Status: Completed infusion; IV Intake: as6 100ml 20:35 Drug: vancoMYCIN 1 grams Route: IVPB; Infused Over: 2 hrs; Site: right forearm; as6 21:24 Follow up: Response: No adverse reaction; IV Status: Infusion continued upon admission; as6 IV Intake: 170ml Disposition: 16:32 Co-signature as Attending Physician, Mac WILLSON was immediately available on-site ms3 in the Emergency Department for consultation in the care of the patient. Disposition Summary: 08/18/22 18:30 Hospitalization Ordered Hospitalization Status: Inpatient Admission cp Provider: Franc Borges cp Location: Telemetry/[facility] (Inpatient) cp Condition: Stable cp Problem: new cp Symptoms: have improved cp Bed/Room Type: Standard cp Room Assignment: 416(08/18/22 20:29) mw Diagnosis - Cutaneous abscess of left hand cp - Cellulitis of left upper limb cp Forms: - Medication Reconciliation Form cp - SBAR form cp Signatures: Dispatcher [employer] EDMS Mally Randle RN RN mw Vahid Augustin, IT PROJECT MANAGER-C IT PROJECT MANAGER-Cla1 Ben Magaña PA PA cp Sims, Marcus, DO DO ms3 Marie Trent RN RN jh5 Fadi Nava RN RN as6 Madeleine Garcia RN RN sg5 Jackelin Raymond RN ld1 Corrections: (The following items were deleted from the chart) 19:23 19:21 ED course: spoke with DR Christy concerning issue with admission and DR Jony tamayo refusing at this time, will reach out to DR Heredia for possible admission. cp 20:29 18:30 cp mw 08/19 20:33 08/18 16:05 Patient is a 62-year-old female brought to the emergency department cp accompanied by her son with complaints of left hand pain. Son reports patient was referred to the emergency department to be admitted for planned surgery to left hand by Dr. Olmos. Son reports patient had appointment today with Dr. Olmos and was told to proceed to the emergency room for evaluation after dialysis. 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 Olmos in June 2022. cp
--- NOTE | 2022-08-18 18:37 | EKG ---
Test Date: 2022-08-18 Test Time: 16:28:22 Talent Consultant: SAQIB MEASUREMENT RESULTS: Intervals: Rate: 94 IA: 166 QRSD: 116 QT: 384 QTc: 480 [place]: P: 87 IA: 166 QRS: 26 T: 117 INTERPRETIVE STATEMENTS: Normal sinus rhythm Low voltage QRS Cannot rule out Anterior infarct, age undetermined ST & T wave abnormality, consider lateral ischemia Abnormal ECG Compared to ECG 03/05/2022 18:01:53 Low QRS voltage now present Myocardial infarct finding now present Possible ischemia now present Prolonged QT interval no longer present ST (T wave) deviation still present Electronically Signed On 08-18-22 18:36:34 BUILDING SERVICE WORKER by Keegan Lara
--- NOTE | 2022-08-18 18:49 | RAD REPORT ---
[facility] CLINICAL HISTORY: dialysis COMPARISON: No comparisons TECHNIQUE: Portable AP view of the chest. FINDINGS: The lungs are clear. No pneumothorax or effusion. Stable mild cardiomegaly. The mediastina l contours are unchanged. Vascular stent seen along the left arm. IMPRESSION: No acute pulmonary process. Stable mild cardiomegaly.
--- NOTE | 2022-08-18 18:51 | RAD REPORT ---
EXAM DESCRIPTION: CARY HERNANDEZ - 08/18/2022 5:31 pm CLINICAL HISTORY: Pain COMPARISON: 05/01/2023. TECHNIQUE: Three views of the left hand FINDINGS: Evidence of amputation along the distal aspect of the fourth digit proximal phalanx. A sma ll comminuted chip fracture is noted. Extensive soft tissue gas present along the remainder of the fo urth digit and more extensively along the palm of the hand including the deep soft tissues. There is no dislocation or periosteal reaction noted. No foreign bodies. IMPRESSION: Amputation at the level of the distal aspect fourth digit proximal phalanx. Extensive soft tissue gas as above. Please correlate clinically for evidence of recent trauma versus gas-forming organism infection.
[2022-08-18] MEDS ORDERED: NA CHLORIDE 0.9% 100 ML ONE (19:27)
[2022-08-18] MEDS ORDERED: NA CHLORIDE 0.9% 250 ML ONE (19:27)
[2022-08-18] MEDS ORDERED: CEFEPIME 1 GM/VIAL ONE (19:27)
[2022-08-18] MEDS ORDERED: VANCOMYCIN 1 GM/VIAL ONE (19:27)
--- NOTE | 2022-08-18 21:08 | P.HP ---
Certification for Inpatient Patient admitted to: Inpatient With expected LOS: >2 Midnights Patient will require the following post-hospital care: None Practitioner: I am a practitioner with admitting privileges, knowledge of patient current condition, hospital course, and medical plan of care. Services: Services provided to patient in accordance with Admission requirements found in Title 42 Section 412.3 of the Code of Federal Regulations Patient History Date of Service: 08/18/22 Reason for admission: Severe sepsis, left hand infection, PAD History of Present Illness: 62-year-old female with history of ESRD on HD, insulin-dependent diabetes, chronic diastolic congestive heart failure, hypothyroidism, previous CVA presents to the emergency department concern of infection in her right hand. She was recently seen in the hospital and admitted on 07/03/2022 for cellulitis/gangrene of the left fourth digit, at that time she had a proximal phalanx amputation. There was concern for subclavian steal syndrome at that time given presence of her AV fistula on that upper extremity, patient was counseled to follow-up with vascular surgery for angiogram. It appears patient has had an additional debridement/partial amputation of the left fourth finger since her most recent admission with hand surgery. Patient presented to the emergency department today after being sent in from her surgeon Dr. Christy who had requested patient be admitted to the hospitalist service for additional surgical procedures involving her left hand with suspected infectious process/gangrene present. She was evaluated in the emergency department her labs were significant for leukocytosis white blood cell count 14.7 demonstration of her ESRD, elevated C-reactive protein 79.5 lactic acid 2.6 initially. Arterial Doppler was performed which revealed monophasic flow with blunted upstroke along the radial and ulnar arteries concerning for moderate peripheral vascular disease, left common carotid artery reveals high resistive waveform pattern which can be related to distal stenosis. X-ray of the hand was performed which revealed amputation at the level of the distal aspect fourth digit proximal phalanx, extensive soft tissue gas as above. Please correlate clinically for evidence of recent trauma versus gas-forming organism infection. Patient criteria for severe sepsis at this time she was given broad-spectrum antibiotics in the emergency department with vancomycin/cefepime. Given presence of AV fistula in the left upper extremity and poor arterial flow there is concern for subclavian steal syndrome versus moderate PAD. This was discussed with ED, surgery, hospitalist attending initially transfer for vascular evaluation was recommended but surgery felt comfortable managing patient here with outpatient vascular evaluation. This was discussed at length with the patient including the importance of close follow-up with vascular once discharged from hospital as she will likely develop further ischemia/gangrenous infections and require more amputations if this is not addressed. Patient verbalized understanding. Allergies No Known Allergies Allergy (Verified 07/22/22 08:54) Home Medications: Levothyroxine [Synthroid*] 25 mcg PO [id number] 05/26/18 Insulin -Regular Human [Novolin -R*] 12 unit SQ TIDWM 08/08/20 Aspirin [Aspirin EC 81 MG] 81 mg PO DAILY #30 07/27/21 Cholecalciferol (Vitamin D3) [Vitamin D 1000 Iu Tab*] 1,000 unit PO DAILY #10 tab 07/27/21 Mometasone/Formoterol [Dulera 200 Mcg/5 Mcg Inhaler] 2 puff IH BID inhaler 07/27/21 Codeine/APAP [Tylenol #3*] 1 tab PO Q4HP PRN #20 tab 07/04/22 Silver Sulfadiazine Crm [Silvadene*] 1 appl TOP TID #1 jar 07/04/22 - Past Medical/Surgical History Diabetic: Yes -: HTN -: IDDM -: Hypothyroidism -: CVA X2 with left eye deficit -: ESRD on HD -: Chronic diastolic congestive heart failure -: Vit D deficiency -: COVID-19 -: cardiac stent X1 -: cholecystectomy -: L Fistula -: R BKA -: Left fourth digit amputation Psychosocial/ Personal History: Patient lives at home with family - Family History Father -: Diabetes Mother -: Heart disease, Hypertension, Diabetes - Social History Smoking Status: Never smoker Alcohol use: No CD- Drugs: No Caffeine use: No Place of Residence: Home Review of Systems 10-point ROS is otherwise unremarkable Musculoskeletal: Hand Pain, Other (Reports left hand cool, painful) Physical Examination - Physical Exam General: Alert, In no apparent distress, Oriented x3 HEENT: Atraumatic, PERRLA, Mucous membr. moist/pink, EOMI, Sclerae nonicteric Neck: Supple, 2+ carotid pulse no bruit, No LAD, Without JVD or thyroid abnormality Respiratory: Clear to auscultation bilaterally, Normal air movement Cardiovascular: Regular rate/rhythm, Normal S1 S2, Abnormal pulses (Weak radial/ulnar pulses bilaterally, left hand cooler than right hand. Sensation diminished but intact.) Capillary refill: >2 Seconds Gastrointestinal: Normal bowel sounds, No tenderness Musculoskeletal: No tenderness Integumentary: No rashes Neurological: Normal gait, Normal speech, Normal strength at 5/5 x4 extr, Normal tone, Normal affect Lymphatics: No axilla or inguinal lymphadenopathy - Studies Laboratory Data (last 24 hrs) 08/18/22 16:42: PT 14.2 H, INR 1.29 08/18/22 16:42: WBC 14.70 H, Hgb 14.5, Hct 45.9 H, Plt Count 95 L 08/18/22 16:42: Sodium 128 L, Potassium 3.6, BUN 28 H, Creatinine 3.96 H, Glucose 321 H, Magnesium 2.3 Assessment and Plan - Plan Assessment: Severe sepsis secondary to left fourth phalanx/hand infectious process-concern for gas gangrene Moderate PAD/possible subclavian steal syndrome ESRD on HD Diabetes mellitus type 2insulin-dependent Chronic diastolic congestive heart failure Hypothyroidism Previous CVA Plan: Severe sepsis secondary to left fourth phalanx/hand infectious process-concern for gas gangrene Blood cultures obtained in ED, initial lactate 2.6. SIRS criteria present including tachycardia, leukocytosis. No hypotension at this time. Blood cultures obtained in ED. Continue broad-spectrum antibiotics Unasyn/clindamycin. Patient to be seen by hand surgery tomorrow for debridement . Will need very close vascular follow-up given possibility of subclavian steal syndrome/PAD with worsening wound. Moderate PAD/possible subclavian steal syndrome Noted, patient has been counseled previously on importance of follow-up with vascular, she has yet to obtain appointment with vascular on an outpatient basis. Again counseled at length on the importance of close follow-up with vascular including loss of limb if she is unable to do so. Case was discussed with hospitalist attending, hand surgery, ED staff. Surgery feels comfortable managing patient care at this time. ESRD on HD Nephrology consulted for dialysis. Had dialysis today. Diabetes mellitus type 2insulin-dependent Sliding scale insulin, A1c in the morning. Chronic diastolic congestive heart failure Volume management with dialysis. Hypothyroidism Previous CVA Continue home meds. DVT PPX: SCDs until cleared by surgery Code status: Full Discharge Plan: Home Plan to discharge in: [facility] than 2 days - Advance Directives Does patient have a Living Will: No Does patient have a Durable POA for Healthcare: No - Code Status/Comfort Care Code Status Assessed: Yes (Full code) Critical Care: No Time Spent Managing Pts Care (In Minutes): 70
[2022-08-18] MEDS ORDERED: ONDANSETRON 4 MG/2 ML VIAL IV PRN (21:43)
[2022-08-18] MEDS: INSULIN -REGULAR HUMAN 50 UNIT/0.5 ML ML SQ SCH (21:43)
[2022-08-18] MEDS ORDERED: MORPHINE 2 MG/ML SYR IV PRN (21:43)
[2022-08-18] MEDS: AMPICILLIN/SULBACT 3 GM in NA CHLORIDE 0.9% 100 ML IVPB SCH (22:56)
[2022-08-19] MEDS ORDERED: CLINDAMYCIN 600MG/D5W 50 ML IV ONE (00:51)
[2022-08-19] MEDS: CLINDAMYCIN 600MG/D5W 50 ML IV SCH ×3 (01:02→17:02)
--- NOTE | 2022-08-19 04:41 | P.PN ---
Date of Service: 08/18/22 Patient with patent IV but staff unable to obtain additional blood specimen at this time for repeat lactate and second set of blood culture despite multiple attempts from various staff members. ABX started, patient not hypotensive or showing other signs of septic shock at this time. Will attempt labs again this morning. If there is not success patient may require PICC vs midline.
[2022-08-19] MEDS: INSULIN -REGULAR HUMAN 50 UNIT/0.5 ML ML SQ SCH ×4 (07:30→21:20)
[2022-08-19] MEDS ORDERED: NA CHLORIDE 0.9% 500 ML ONE (08:56)
[2022-08-19] MEDS: AMPICILLIN/SULBACT 3 GM in NA CHLORIDE 0.9% 100 ML IVPB SCH ×2 (09:00→21:21)
[2022-08-19] MEDS ORDERED: MIDAZOLAM HCL 2 MG/2 ML INJ ONE (09:52)
[2022-08-19] MEDS ORDERED: LIDOCAINE 1% MPF 2 ML AMPULE ONE (09:53)
[2022-08-19] MEDS ORDERED: EPINEPHRINE/PF 1 MG/ML AMP ONE (10:01)
[2022-08-19] MEDS ORDERED: propofoL 200 MG/20 ML VIAL IV ONE ×2 (10:16→10:38)
[2022-08-19] MEDS ORDERED: LIDOCAINE 2% MPF 5 ML VIAL ONE (10:16)
--- NOTE | 2022-08-19 10:18 | P.CNS ---
Date of Consult: 08/19/22 Reason for Consult: ESRD Requesting Physician: Vahid Augustin Chief Complaint: Severe sepsis, left hand infection, PAD History of Present Illness: 62 y o female pt with hx HTN, DM 2, HLD, Hypothyroidism, ESRD, admitted for management of hand cellulitis. she was found to be septic and has been started on antibiotics. she was asked to be evaluated by nephrology or management of ESRD needs. she still has some pain in the hand. Allergies No Known Allergies Allergy (Verified 07/22/22 08:54) Home Medications: Levothyroxine [Synthroid*] 25 mcg PO [id number] 05/26/18 Insulin -Regular Human [Novolin -R*] 12 unit SQ TIDWM 08/08/20 Aspirin [Aspirin EC 81 MG] 81 mg PO DAILY #30 07/27/21 Cholecalciferol (Vitamin D3) [Vitamin D 1000 Iu Tab*] 1,000 unit PO DAILY #10 tab 07/27/21 Mometasone/Formoterol [Dulera 200 Mcg/5 Mcg Inhaler] 2 puff IH BID inhaler 07/27/21 Codeine/APAP [Tylenol #3*] 1 tab PO Q4HP PRN #20 tab 07/04/22 Silver Sulfadiazine Crm [Silvadene*] 1 appl TOP TID #1 jar 07/04/22 - Past Medical/Surgical History Diabetic: Yes -: HTN -: IDDM -: Hypothyroidism -: CVA X2 with left eye deficit -: ESRD on HD -: Chronic diastolic congestive heart failure -: Vit D deficiency -: COVID-19 -: cardiac stent X1 -: cholecystectomy -: L Fistula -: R BKA -: Left fourth digit amputation Psychosocial/ Personal History: Patient lives at home with family - Family History Father Medical History: Diabetes Mother Medical History: Heart disease, Hypertension, Diabetes - Social History Smoking Status: Unknown if ever smoked Alcohol use: No CD- Drugs: No Caffeine use: No Place of Residence: Home Review of Systems General: Other ENT: Unremarkable Respiratory: Unremarkable Cardiovascular: Unremarkable Gastrointestinal: Unremarkable Genitourinary: Unremarkable Musculoskeletal: Hand Pain Integumentary: Unremarkable Physical Examination Temp Pulse Resp BP Pulse Ox 97.0 F 83 16 129/60 95 08/19/22 08:00 08/19/22 08:00 08/19/22 08:00 08/19/22 08:00 08/19/22 08:00 General: Alert, Oriented x3 HEENT: Atraumatic, Normocephalic Neck: Supple Respiratory: Normal air movement Cardiovascular: Regular rate/rhythm, Normal S1 S2 Gastrointestinal: Soft and benign Musculoskeletal: No swelling Neurological: Normal speech, Normal strength at 5/5 x4 extr Laboratory Data (last 24 hrs) 08/18/22 16:42: PT 14.2 H, INR 1.29 08/18/22 16:42: WBC 14.70 H, Hgb 14.5, Hct 45.9 H, Plt Count 95 L 08/18/22 16:42: Sodium 128 L, Potassium 3.6, BUN 28 H, Creatinine 3.96 H, Glucose 321 H, Magnesium 2.3 Conclusions/Impression: ESRD Hypothyroidism Dm 2 Hypertension Hand cellulitis Plan: Dialysis as per schedule today. Session to run for 3.5hrs UF of 2 or as tolerated. 3k potassium bath to be used. Renal diet to be continued. Antibiotics to be continued for cellulitis.
[2022-08-19] MEDS ORDERED: LIDOCAINE 1% W/EPI 1:100,000 10 ML VIAL ONE (10:38)
[2022-08-19] MEDS ORDERED: EPHEDRINE SULF 50 MG/ML VIAL ONE (10:47)
[2022-08-19] MEDS ORDERED: Phenylephrine HCl 10 MG/ML 1 ML VIAL ONE (10:47)
[2022-08-19] MEDS ORDERED: SILVER SULFADIAZINE 1% 25 GM TOP ONE (11:27)
[2022-08-19] MEDS ORDERED: NA CHLORIDE 0.9% 1,000 ML ONE (11:50)
--- NOTE | 2022-08-19 12:50 | DS ---
History: Patient is a 62-year-old black female who is left-hand dominant, has undergone left ring fi nger amputation in the past for dry gangrene. Has a nonhealing wound at the level of the proximal ph alanx. She has had renal failure, she is on dialysis; peripheral vascular disease; diabetes; hyperte nsion. She has had right BKA and the left hand surgery. She also has shunt for dialysis in the left arm. insulin, aspirin, Plavix, and thyroid replacement. She is 5 feet 4 inches 120 poun ds, is quite thin. The hand has a small area of dry gangrene several mm by 1 cm with incision line. She has some tenderness proximally. Assessment: Nonhealing left ring finger. Plan: Ray amputation, possible open. MICHELLE/EDOUARD Voice ID: [id number] Report ID: [id number]
--- NOTE | 2022-08-19 13:35 | OP ---
Surgeon: Daniel Christy MD Preoperative Diagnosis: Dry gangrene of left ring finger amputation site. Postoperative Diagnosis: Dry gangrene of left ring finger amputation site. Procedure: Left ring finger ray amputation. Anesthesia: General. Procedure In Detail: After satisfactory induction of general anesthesia, left hand was prepped with Betadine scrub and Betadine paint. Dry sterile drapes were applied in usual manner. Hand was placed on Roto Lock table. Incision was made over dorsum of the hand extending over the metacarpal head of the ring finger. saw used to cut the bone and then with tracking the bone, the undersurfa ce was cut for the flexor tendon and then the soft tissue. After this was done, cultures were taken proximally. The wound was jet lavaged, irrigated with 3 L of dilute Betadine solution. The patient then had the transverse deep metacarpal ligament tied to each other from the middle to the little wit h horizontal mattress of 3-0 Vicryl. Then the subcu tissue was closed with 4-0 Vicryl. Skin closed with 4-0 Prolene with vertical mattress simple sutures. Dressed with 2 inch Eliane with Silvadene cre am and then Kerlix. The patient tolerated the procedure well, returned to Recovery. MICHELLE/EDOUARD Voice ID: [id number] Report ID: [id number]
--- NOTE | 2022-08-19 16:02 | P.PN ---
Subjective Date of Service: 08/19/22 Chief Complaint: Severe sepsis, left hand infection, PAD Ms. Margarita Adhikari is Faroese-speaking only. The following history was obtained with the assistance of [employer] certified [place] housekeeper/custodian/laundry worker, Mr. Veras, (ID# [id number]). She reports no acute concerns this morning. Her left hand is with some pain, but this is controlled with her current pain regimen. She has been NPO past midnight in anticipation for surgery today with Dr. Christy. Review of Systems 10-point ROS is otherwise unremarkable Musculoskeletal: Hand Pain (left) Physical Examination - Vital Signs Temperature: 97.5 F Blood Pressure: 108/44 Pulse: 88 Respirations: 16 Pulse Ox (%): 95 - Physical Exam General: Alert, In no apparent distress, Oriented x3 HEENT: Atraumatic, Mucous membr. moist/pink, EOMI, Sclerae nonicteric Neck: JVD not distended Respiratory: Clear to auscultation bilaterally, Normal air movement Cardiovascular: Normal pulses, Regular rate/rhythm, No gallops, No rubs, No murmurs, Edema (1-2+, LLE) Gastrointestinal: Normal bowel sounds, Soft and benign, Non-distended, No tenderness, No rebound, No guarding Musculoskeletal: Other (s/p R BKA) Integumentary: No rashes Neurological: Normal speech, Normal affect - Studies Laboratory Data (last 24 hrs) 08/18/22 16:42: PT 14.2 H, INR 1.29 08/18/22 16:42: WBC 14.70 H, Hgb 14.5, Hct 45.9 H, Plt Count 95 L 08/18/22 16:42: Sodium 128 L, Potassium 3.6, BUN 28 H, Creatinine 3.96 H, Glucose 321 H, Magnesium 2.3 Microbiology Data (last 24 hrs): 08/18/22 19:36 Blood - Blood Anaerobic Blood Culture - Final Assessment And Plan - Plan # Severe Sepsis likely secondary to Left 4th Finger Infection with Gangrene She met sepsis criteria based on HR > 90 bpm and WBC > 12,000, and the suspected source is soft tissue/skin infection. Severe sepsis is suspected due to concern for tissue hypoperfusion/organ dysfunction based on lactic acid > 2 mmol/L. - Sepsis order set was initiated - Initial Lactate was 2.6, unable to trend due to inability to obtain labs due to difficult vascular access - Blood cultures drawn before antibiotics were given - Wound cultures pending - Broad spectrum antibiotics started: Ampicillin-Sulbactam + Clindamycin - In regards to fluids: - 30 mL/kg of IV fluids was not administered given SBP > 90, MAP > 65, lactic acid < 4, and concern for fluid overload (dialysis-dependent) # Left 4th Finger Dry Gangrene suspect secondary to Moderate Peripheral Vascular Disease with possible AV Fistula Ischemic Steal Syndrome # History of Cerebrovascular Accident # S/P Right Svxeh-uwd-Gudg Amputation - Evaluation thus far: - Arterial Doppler ultrasound = "monophasic flow with blunted upstroke along the radial and ulnar arteries, concerning for moderate peripheral vascular disease. Left common carotid artery reveals high resistive waveform pattern, which can be related to distal stenosis." - Left upper extremity venous Doppler = "no evidence of deep venous thrombosis of the left upper extremity." - Consulted Hand Surgery and spoke with Dr. Christy - recommendations appreciated - S/P dry gangrene of left ring finger amputation site - Consulted Interventional Radiology and spoke with Dr. Nolen - recommendations appreciated - He recommended NPO after midnight - he will evaluate her tomorrow # End-Stage Renal Disease on Hemodialysis # Chronic Diastolic Congestive Heart Failure - Nephrology consulted for dialysis # Type II Diabetes Mellitus - Correction scale insulin # Hypothyroidism - Resume home medications once verified Franc Borges M.D.
--- NOTE | 2022-08-19 17:05 | CON ---
Date of Consultation: 08/19/2022 Reason For Consultation: Elevated BUN and creatinine, dialysis management. History Of Present Illness: This is a 62-year-old female, well known to me from dialysis with signif icant past medical history of hypertension, diabetes, hypothyroidism, end-stage renal disease. The diana thorne was admitted to the hospital because of cellulitis with gangrene on the left finger, status po st amputation. The patient scheduled for dialysis Thursday, Thursday, Thursday. The patient denied any chest pain, any nausea, any vomiting. Past Medical History: Includes; 1.Diabetes. 2.Hypertension. 3.PAD, status post right below-knee amputation. 4.CVA. 5.Diabetes complicated with neuropathy. Past Surgical History: Includes; 1.PTCA. 2.Cholecystectomy. 3.AV fistula creation. 4.Right below-knee amputation. 5.Left fourth digit amputation. Home Medications: Include levothyroxine, insulin, aspirin, codeine, Renvela. Allergies: NO KNOWN DRUGS ALLERGY. Family History: Positive for diabetes and hypertension. Social History: Denied smoking, denied drinking, denied drugs abuse. Lives with family. Family History: Positive for diabetes and hypertension. Review of Systems: Head and Neck: No red eye. No ear pain. GI: No nausea. No vomiting. : No polyuria. No dysuria. No hematuria. Land Leveler: No vaginal discharge. Respiratory: Has shortness of breath. Cardiovascular: No chest pain. Endocrine: No polydipsia. Skin: No rash. Physical Examination: Vital Signs: Blood pressure 108/44, pulse of 88. Chest: Crackles bilateral base. Heart: S1, S2. Regular. Abdomen: Soft, nontender. Extremity: Right below-knee amputation. Amputation of the left middle finger. Neuro: Alert. No focality. Laboratory Data: Hemoglobin 14.4. Sodium 128, potassium 3.6, bicarb 24, BUN 28, creatinine 3.9, karoline cium 9.2. Assessment And Plan: 1.End-stage renal disease, slightly on the over volume side. I will arrange for dialysis for tomorr ow. 2.Hyponatremia will be corrected with dialysis. 3.Over volume. We will challenge the patient. 4.Anemia of chronic kidney disease. No need for PRASHANT. 5.Gangrenous finger, status post amputation. We will follow up with primary. Continue current anti biotic. Follow up with Surgery. KEITH Voice ID: [id number] Report ID: [id number]
[2022-08-20] MEDS: CLINDAMYCIN 600MG/D5W 50 ML IV SCH ×2 (00:49→08:52)
[2022-08-20 03:55] VITALS: O2SAT 96
[2022-08-20 04:03] VITALS: BMI 24.1
[2022-08-20] MEDS: INSULIN -REGULAR HUMAN 50 UNIT/0.5 ML ML SQ SCH ×2 (07:30→13:51)
[2022-08-20] MEDS ORDERED: AMPICILLIN/SULBACTAM 3GM/VIAL ONE (08:41)
[2022-08-20] MEDS ORDERED: NA CHLORIDE 0.9% 100 ML ONE (08:43)
[2022-08-20] MEDS ORDERED: Ringers Lactate 1,000 ML IV SCH (09:00)
[2022-08-20] MEDS ORDERED: CLOPIDOGREL 75 MG TABLET PO SCH (09:00)
[2022-08-20] MEDS ORDERED: ASPIRIN 81 MG CHEWABLE TABLET PO SCH (09:00)
[2022-08-20] MEDS ORDERED: SILVER SULFADIAZINE 1% 50 GM TOP SCH (09:00)
[2022-08-20] MEDS ORDERED: ATORVASTATIN 40 MG TAB PO SCH (09:00)
[2022-08-20] MEDS: AMPICILLIN/SULBACT 3 GM in NA CHLORIDE 0.9% 100 ML IVPB SCH (09:00)
[2022-08-20] MEDS ORDERED: NOREPINEPHRINE BITARTRATE/D5W 4 MG/250 ML BAG IV SCH (10:00)
[2022-08-20] MEDS ORDERED: RSI MEDICATION KIT IV ONE (10:14)
--- NOTE | 2022-08-20 10:47 | RAD REPORT ---
EXAM DESCRIPTION: Litzy Single View3 10:39 am CLINICAL HISTORY: Device placement endotracheal tube placement IMPRESSION: An endotracheal tube has been inserted with its tip 15 millimeters above the top of the aortic arch
--- NOTE | 2022-08-20 10:48 | P.PN ---
Subjective Date of Service: 08/20/22 Chief Complaint: Severe sepsis, left hand infection, PAD Physical Examination - Vital Signs Temperature: 97.3 F Blood Pressure: 93/42 Pulse: 88 Respirations: 16 Pulse Ox (%): 95 - Studies Microbiology Data (last 24 hrs): 08/18/22 19:36 Blood - Blood Anaerobic Blood Culture - Final
[2022-08-20] MEDS ORDERED: propofoL 1,000 MG/100 ML VIAL IV ONE (10:56)
[2022-08-20] MEDS ORDERED: MIDAZOLAM HCL 2 MG/2 ML INJ IV PRN (10:56)
[2022-08-20] MEDS ORDERED: LORazepam 2 MG/ML VIAL IV PRN (10:56)
[2022-08-20] MEDS ORDERED: propofoL 1,000 MG/100 ML VIAL IV SCH (11:00)
[2022-08-20 11:11] LABS: Arterial Blood Carboxyhemoglob 1.6 % (0-1.5); Blood Gas Oxyhemoglobin 97.1 % (94-97); Blood O2 Saturation 99.8 % (92-98.5)
--- NOTE | 2022-08-20 11:13 | EKG ---
Test Date: 2022-08-20 Test Time: 10:28:52 Senior Software Development Manager: MELODY MEASUREMENT RESULTS: Intervals: Rate: 125 RI: 184 QRSD: 100 QT: 322 QTc: 464 [place]: P: 50 RI: 184 QRS: 89 T: 54 INTERPRETIVE STATEMENTS: Sinus tachycardia Low voltage QRS ST & T wave abnormality, consider inferior ischemia Abnormal ECG Compared to ECG 08/18/2022 16:28:22 Sinus rhythm no longer present Myocardial infarct finding no longer present ST (T wave) deviation still present Possible ischemia still present Electronically Signed On 08-20-22 11:13:16 SENIOR ADVISORY by Keegan Lara
[2022-08-20 11:30] LABS: Absolute Lymphocytes (CBC) 5.4 K/uL (0.7-4.9); Hematocrit 39.6 % (36.0-45.0); Lymphocytes % 23.6 % (15.3-44.8); MCV 95.2 fL (80-100); MPV 11.3 fL (7.6-11.3); RBC Red Blood Cell Count 4.16 M/uL (3.86-4.86)
[2022-08-20 11:50] LABS: Albumin 1.9 g/dL (3.4-5.0); Phosphorus 7.2 mg/dL (2.5-4.9); Potassium 5.3 mmol/L (3.5-5.1); Troponin High Sensitivity 32.7 pg/mL (<58.9)
[2022-08-20] MEDS ORDERED: Meropenem 500 MG in NA CHLORIDE 0.9% 100 ML IV SCH (12:00)
--- NOTE | 2022-08-20 12:26 | P.CNS ---
Date of Consult: 08/20/22 Reason for Consult: Respiratory failure on a ventilator Chief Complaint: Severe sepsis, left hand infection, PAD History of Present Illness: Patient is 62 years of age end-stage renal disease on hemodialysis multiple medical problems diabetes heart failure stroke scented to the emergency room with infection of the left hand there is concerned about subclavian steal syndrome patient's condition deteriorated became hypotensive was intubated currently on a ventilator Patient had amputation of the left index finger Allergies No Known Allergies Allergy (Verified 07/22/22 08:54) Home Medications: Levothyroxine [Synthroid*] 25 mcg PO [id number] 05/26/18 Insulin -Regular Human [Novolin -R*] 12 unit SQ TIDWM 08/08/20 Aspirin [Aspirin EC 81 MG] 81 mg PO DAILY #30 07/27/21 Cholecalciferol (Vitamin D3) [Vitamin D 1000 Iu Tab*] 1,000 unit PO DAILY #10 tab 07/27/21 Mometasone/Formoterol [Dulera 200 Mcg/5 Mcg Inhaler] 2 puff IH BID inhaler 07/27/21 Codeine/APAP [Tylenol #3*] 1 tab PO Q4HP PRN #20 tab 07/04/22 Silver Sulfadiazine Crm [Silvadene*] 1 appl TOP TID #1 jar 07/04/22 Atorvastatin Calcium [Lipitor] 40 mg PO BEDTIME tab 08/20/22 Clopidogrel Bisulfate [Plavix*] 75 mg PO DAILY 08/20/22 Heparin [Heparin 1,000 units/mL *] 4,000 unit IV EVERY HD PRN vial 08/20/22 - Past Medical/Surgical History Diabetic: Yes -: HTN -: IDDM -: Hypothyroidism -: CVA X2 with left eye deficit -: ESRD on HD -: Chronic diastolic congestive heart failure -: Vit D deficiency -: COVID-19 -: cardiac stent X1 -: cholecystectomy -: L Fistula -: R BKA -: Left fourth digit amputation Psychosocial/ Personal History: Patient lives at home with family - Family History Father Medical History: Diabetes Mother Medical History: Heart disease, Hypertension, Diabetes - Social History Smoking Status: Unknown if ever smoked Alcohol use: No CD- Drugs: No Caffeine use: No Place of Residence: Home Review of Systems is unable to be obtained Physical Examination Temp Pulse Resp BP Pulse Ox 97.3 F 88 16 93/42 L 95 08/20/22 10:55 08/20/22 10:55 08/20/22 10:55 08/20/22 10:55 08/20/22 10:55 General: Unresponsive HEENT: Atraumatic Neck: Supple Respiratory: Clear to auscultation bilaterally Cardiovascular: No edema (Amputation of the right above-knee) - Problems (1) Respiratory failure Current Visit: Yes Status: Acute Plan: Patient is 62 years of age admitted with infection of the left hand had undergone an amputation developed respiratory distress hypertension admitted intubated chest x-ray shows cardiomegaly endotracheal tube satisfactory position labs reviewed white count is significantly elevated currently is hemodynamically stable have added IV vancomycin blood cultures have been ordered patient to be weaned off from vasopressors Doppler shows compromised blood flow to the left hand Qualifiers: Chronicity: acute
[2022-08-20] MEDS ORDERED: NA CHLORIDE 0.9% 250 ML IV PRN (12:27)
--- NOTE | 2022-08-20 12:34 | PN ---
Date of Progress Note: 08/20/2022 Subjective: The patient was admitted with gangrenous finger. [facility] The patient developed low blood pressure during the morning, even become pulseless. The patien t was coded only. Transient cardiac resuscitation was done. The patient was intubated and started o n Levophed. Blood pressure has been stabilized. The patient apparently became acidotic. The patien t intubated currently. Physical Examination: Vital Signs: Blood pressure of 151/60, pulse of 88. Chest: Clear to auscultation. Heart: S1, S2. Systolic murmur. Abdomen: Soft, nontender. Extremities: Dressing on the left hand and stump on the right below-knee amputation looked clean. N o erythema. Neuro: The patient has been sedated. Laboratory Data: WBC 14.7, H and H 14.5/45.9. Chemistry still pending. ABG; pH 7.28, CO2 20, O2 58 9, base excess -16, bicarb of 9. Current Medications: The patient on; 1.Levophed. 2.Ampicillin and sulbactam. 3.Clindamycin. 4.Plavix. 5.Sedation. 6.Zofran. 7.Morphine. Assessment And Plan: 1.End-stage renal disease with severe acidosis. The patient on pressor. I am going to go ahead and arrange for the dialysis today to correct the acidosis. I am not going to do any fluid removal and we will follow up the patient closely. 2.Septic shock with severe acidosis. As above, we will dialyze the patient. We will give 1 amp of bicarb. Antibiotic has been adjusted. We will follow up with ID. I am going to go ahead and add si ngle dose of vancomycin today. I will send for cortisol level. Continue Levophed. 3.Acidosis secondary to lactic acidosis secondary to low blood pressure secondary to sepsis/renal fa ilure. Will be corrected with dialysis. I do not see the need for bicarb drip right now. We will f ollow up lab after. 4.Gangrenous finger. Follow up with primary and Vascular. 5.Over volume. Currently, the patient is intubated. 6.Hyponatremia will be corrected with dialysis. RAQUEL/EDOUARD Voice ID: [id number] Report ID: [id number]
[2022-08-20] MEDS ORDERED: VANCOMYCIN 1 GM in NA CHLORIDE 0.9% 250 ML IVPB SCH (13:00)
[2022-08-20] MEDS ORDERED: Meropenem 500 MG VIAL IV ONE (13:46)
--- NOTE | 2022-08-20 14:07 | P.DS ---
Admission Date: 08/18/22 Discharge Date: 08/20/22 Disposition: TRANSFER TO [facility] Comment: [facility] Discharge Condition: FAIR Reason for Admission: Severe sepsis, left hand infection, PAD Consultations: 1. Hand Surgery 2. Cardiology 3. Pulmonology 4. Interventional Radiology Procedures: - 08/19/2022 - Left Ring Finger Amputation - 08/20/2022 - Endotracheal Intubation Hospital Course: DIAGNOSES: # Suspect Septic Shock likely secondary to Left 4th Finger Gram-Negative Infection with Dry Gangrene -This morning she met septic shock criteria, based on multiple systolic blood pressures < 90 mmHg. Blood cultures x 2 and lactic acid repeated. 30 mL/kg not given due to concern for volume overload (dialysis dependent). Antibiotics changed to meropenem. - Sepsis fluid reassessment completed at 12:00 PM on 08/20/2022 # Left 4th Finger Dry Gangrene suspect secondary to Moderate Peripheral Vascular Disease with possible AV Fistula Ischemic Steal Syndrome # Coronary Artery Disease s/p PCI # History of Cerebrovascular Accident # S/P Right Suqli-goh-Xsvs Amputation # End-Stage Renal Disease on Hemodialysis # Chronic Diastolic Congestive Heart Failure # Type II Diabetes Mellitus # Hypothyroidism HOSPITAL COURSE: Ms. Margarita Adhikari is a 62 year old female with a past medical history significant for end-stage renal disease on hemodialysis, moderate peripheral vascular disease with possible AV fistula ischemic steal syndrome, chronic diastolic congestive heart failure, coronary artery disease s/p PCI, type 2 diabetes mellitus, and hypothyroidism who was admitted to the [facility] on 08/18/2022 for severe sepsis secondary to left fourth finger infection with gangrene. She was admitted to the Medicine service. Upon further evaluation, her arterial Doppler ultrasound revealed, "monophasic flow with blunted upstroke along the radial and ulnar arteries, concerning for moderate peripheral vascular disease. Left common carotid artery reveals high resistive waveform pattern, which can be related to distal stenosis." Her left upper extremity ultrasound revealed, "no evidence of deep venous thrombosis of the left upper extremity." Hand Surgery was consulted and she was evaluated by Dr. Christy. She underwent amputation of left ring finger amputation, without any apparent complications. Interventional Radiology was consulted for an angiogram of the left arm this morning; however, this morning on rounds, she was hypotensive. She began to experience dizziness and lightheadedness. Her blood pressure was in the (60s-70s)/(30s-40s). She was placed in Trendelenburg position and given 3 boluses of Lactated Ringers' (250 mL, 250 mL, 500 mL), with minimal improvement in her blood pressure. She was started on norepinephrine drip. There was concern for cardiogenic shock given that her heart rates were inappropriately in the 60s-70s. Her aspirin and clopidogrel were on hold due to her hand surgery, and were restarted today. Her STAT EKG was without STEMI criteria. Her initial troponin was within normal limits. I spoke with Dr. Lara, who evaluated her. He does not believe this to be cardiogenic shock. He recommended continuing the norepinpehrine. She was transferred to the ICU, and en route to the ICU, she went into pulseless electrical activity arrest, requiring 2-3 minutes of chest compressions. Her pulse returned, but she remained unresponsive. Dr. Melissa (Emergency Medicine) responded and ran the Code Blue. She underwent successful endotracheal intubation. Given her critical condition, complex comorbidities, and limited resources at our facility, it was thought that she would be better served at a tertiary care center. A transfer request to [facility] was initiated and a doc-to-doc was completed with [facility] training and development professional, Dr. Thompson. He has generously accepted her for transfer. With the assistance of a certified [employer] or university faculty member Ms. Sandoval Goodrich (ID #[id number]), I spoke with her son, Mr. Brian Wray. I updated him on the plan of care and he verbalized understanding. He agreed to the transfer. He was given the opportunity to ask questions and reported no further questions. Furthermore, all questions were answered to the best of my ability. A copy of this discharge summary will be sent to the above providers to facilitate continuity of care. Today, I personally spent 60 minutes on her case, of which greater than 50% of the time was spent in patient education, counseling, and coordination of care as described above. - Physical Exam General: Intubated, sedated HEENT: Atraumatic, Sclerae nonicteric, endotracheal tube in place Respiratory: Diminished, but clear to auscultation bilaterally Cardiovascular: Regular rate/rhythm, Edema (1-2+, LLE), on norepinephrine Gastrointestinal: Diminished, Soft, Non-distended, No tenderness Musculoskeletal: Other (s/p R BKA), R femoral central line in place, left hand in surgical dressing Neurological: Sedated Vital Signs/Physical Exam: Temp Pulse Resp BP Pulse Ox 97.8 F 95 H 16 112/53 L 100 08/20/22 12:00 08/20/22 12:15 08/20/22 12:15 08/20/22 12:15 08/20/22 12:15 Laboratory Data at Discharge: WBC 22.70 K/uL (4.3-10.9) H* 08/20/22 10:28 Hgb 12.2 g/dL (12.0-15.0) 08/20/22 10:28 Hct 39.6 % (36.0-45.0) 08/20/22 10:28 Plt Count 108 K/uL (152-406) L 08/20/22 10:28 PT 14.2 SECONDS (9.5-12.5) H 08/18/22 16:42 INR 1.29 08/18/22 16:42 Sodium 125 mmol/L (136-145) L 08/20/22 10:28 Potassium 5.3 mmol/L (3.5-5.1) H 08/20/22 10:28 BUN 44 mg/dL (7-18) H 08/20/22 10:28 Creatinine 5.24 mg/dL (0.55-1.02) H* 08/20/22 10:28 Glucose 232 mg/dL (74-106) H 08/20/22 10:28 Phosphorus 7.2 mg/dL (2.5-4.9) H 08/20/22 10:28 Magnesium 2.3 mg/dL (1.6-2.4) 08/18/22 16:42 Home Medications: Levothyroxine [Synthroid*] 25 mcg PO [id number] 05/26/18 Insulin -Regular Human [Novolin -R*] 12 unit SQ TIDWM 08/08/20 Aspirin [Aspirin EC 81 MG] 81 mg PO DAILY #30 07/27/21 Cholecalciferol (Vitamin D3) [Vitamin D 1000 Iu Tab*] 1,000 unit PO DAILY #10 tab 07/27/21 Mometasone/Formoterol [Dulera 200 Mcg/5 Mcg Inhaler] 2 puff IH BID inhaler 07/27/21 Codeine/APAP [Tylenol #3*] 1 tab PO Q4HP PRN #20 tab 07/04/22 Silver Sulfadiazine Crm [Silvadene*] 1 appl TOP TID #1 jar 07/04/22 Atorvastatin Calcium [Lipitor] 40 mg PO BEDTIME tab 08/20/22 Clopidogrel Bisulfate [Plavix*] 75 mg PO DAILY 08/20/22 Heparin [Heparin 1,000 units/mL *] 4,000 unit IV EVERY HD PRN vial 08/20/22 Physician Discharge Instructions: - Continue care at [facility] ICU. Diet: NPO Activity: Bedrest Time spent managing pt's care (in minutes): 60
--- NOTE | 2022-08-20 14:37 | RAD REPORT ---
EXAM DESCRIPTION: RAD - Abdomen 1 View (KUB) - 08/20/2022 2:31 pm CLINICAL HISTORY: Placement of NGT/OGT. Post Insertion. Pain COMPARISON: No comparisons FINDINGS: Enteric tube is in the stomach. Consider a 6 inches of advancement for optimal placement.
[2022-08-20 15:10] VITALS: TEMP 97.8
[2022-08-20] MEDS ORDERED: ATROPINE SULF 1 MG/10 ML SYR IV ONE (15:54)
[2022-08-20] MEDS ORDERED: EPINEPHrine 1 MG/10 ML SYR IV ONE (15:54)
[2022-08-20 17:09] VITALS: BP 131/62
--- NOTE | 2022-08-20 17:29 | EKG ---
Test Date: 2022-08-20 Test Time: 09:33:24 Process Technician: FEDE MEASUREMENT RESULTS: Intervals: Rate: 70 MO: 220 QRSD: 94 QT: 374 QTc: 403 [place]: P: 83 MO: 220 QRS: 108 T: 154 INTERPRETIVE STATEMENTS: Sinus rhythm with 1st degree AV block Incomplete right bundle branch block Possible Right ventricular hypertrophy Nonspecific ST and T wave abnormality Abnormal ECG Compared to ECG 08/18/2022 16:28:22 First degree AV block now present Incomplete right bundle-branch block now present Myocardial infarct finding no longer present Possible ischemia no longer present ST (T wave) deviation still present Electronically Signed On 08-20-22 17:28:28 PRINTING SPECIALIST by Keegan Lara
--- NOTE | 2022-08-20 18:35 | CON ---
Date of Consultation: 08/20/2022 Reason For Consultation: Hypotension, possible cardiac event or cardiogenic shock. History Of Present Illness: This 62-year-old female with end-stage renal disease on hemodialysis has coronary artery disease status post PCI of the LAD done by myself recently. She has history of diab etes, hypothyroidism, status post amputation below the knee on the right lower extremity with signifi cant peripheral vascular disease. She apparently was admitted with severe sepsis, left hand infectio n and gram-negative sepsis. She was hypotensive on arrival, required pressors. I was consulted to e valuate the presence of cardiogenic shock, evaluated by her bedside. She apparently had a brief epis ode of cardiac arrest. She was resuscitated and intubated and the patient is not able to give me his tory. I discussed the case with the primary hospitalist Dr. Borges and I obtained a stat bedside echo and her ejection fraction was normal and there were no signs of ischemia or acute heart attack. Past Medical History: As outlined above in the HPI. Medications: Refer to reconciliation sheet for detailed list. Allergies: NO KNOWN DRUG ALLERGIES. Family History: No premature coronary artery disease or cancer. Social History: She does not smoke or drink. Does not use any drugs. Review of Systems: All systems reviewed and they were negative except as mentioned in HPI. Physical Examination: Vital Signs: Reviewed. Head and Neck: Pupils are equal and reactive to light. Intact eye movements. No JVD. No cervical lymphadenopathy. Neck is supple. Thyroid is not enlarged. Lungs: Clear to auscultation bilaterally. No rhonchi, wheezing, or crackles. No accessory muscle u se. Heart: Regular rate and rhythm. No extra sounds. Abdomen: Soft, nontender. Bowel sounds positive. No organomegaly. No masses or hernia. No rigidi ty or rebound. Extremities: No clubbing or cyanosis. Intact pulses. Skin: No rash or nodules. Neurologic: She is sedated on the vent. Lymph Nodes: No cervical or axillary lymphadenopathy. Investigations: Troponin first set was negative. BUN 44, creatinine 5.4, potassium was 5.3, and whi te blood count 22,000. Assessment/recommendation: 1.Hypotension. This is not cardiac. I obtained a bedside echo and her ejection fraction is normal. There is no cardiogenic shock involved. This is likely all sepsis related. Recommend aggressive m anagement in ICU with pressors and IV antibiotics and to manage the source of her infection. 2.Coronary artery disease status post PCI of the LAD recently. She is to be continued on Plavix and aspirin and statin. Put NG tube and give her medications through that route. 3.End-stage renal disease, on hemodialysis. 4.Dyslipidemia. Continue statin. Cardiology will sign off. The patient apparently is being transferred to higher level of care today for further management of her septic condition. SR/MODL Voice ID: [id number] Report ID: [id number]
--- NOTE | 2022-08-21 07:56 | ECHO ---
HEIGHT: 5 ft 0 in WEIGHT: 123 lb 8 oz DATE OF STUDY: 08/20/[address]: Benjamin Francisco MD 2-DIMENSIONAL: YES M.MODE: YES DOPPLER: YES COLOR FLOW: YES TDS: NO PORTABLE: YES DEFINITY: NO BUBBLE STUDY: NO DIAGNOSIS: RESPIRATORY FAILURE SHOCK CARDIAC HISTORY: CATHERIZATION: SURGERY: PROSTHETIC VALVE: PACEMAKER: MEASUREMENTS (cm) DIASTOLIC (NORMALS) SYSTOLIC (NORMALS) IVSd 0.9 (0.6-1.2) LA Diam 4.2 (1.9-4.0) LVEF 50-55% LVIDd 4.5 (3.5-5.7) LVIDs 3.0 (2.0-3.5) %FS % LVPWd 1.0 (0.6-1.2) Ao Diam 2.1 (2.0-3.7) 2 DIMENSIONAL ASSESSMENT: RIGHT ATRIUM: NORMAL LEFT ATRIUM: ENLARGED RIGHT VENTRICLE: NORMAL LEFT VENTRICLE: NORMAL TRICUSPID VALVE: SEVERE TR MITRAL VALVE: MODERATE TO SEVERE MR PULMONIC VALVE: MILD PI AORTIC VALVE: MILD AI PERICARDIAL EFFUSION: SMALL AORTIC ROOT: NORMAL LEFT VENTRICULAR WALL MOTION: NORMAL DOPPLER/COLOR FLOW: SEE BELOW. COMMENTS: 1. LOW NORMAL LEFT VENTRICULAR EJECTION FRACTION 50-55%. 2. NORMAL WALL MOTION. 3. SEVERE TRICUSPID REGURGITATION. 4. MODERATE TO SEVERE MITRAL REGURGITATION. 5. SEVERE PULMONARY HYPERTENSION WITH RIGHT VENTRICULAR SYSTOLIC PRESSURE >80 mmHg. 6. SMALL PERICARDIAL EFFUSION. 7. MILD AORTIC AND PULMONARY REGURGITATION. 8. LEFT ATRIAL ENLARGEMENT. TECHNOLOGIST: Amanda GOMEZ
--- NOTE | 2022-08-21 09:38 | PN ---
The patient's dressing was changed today. No signs of infection. We will continue Silvadene cream o grayson the incision line and 2 inch Eliane. She is hypotensive, heart rate is 88. She is in Trendelenbu rg position. Medical Service will manage her blood pressure. MICHELLE/EDOUARD Voice ID: [id number] Report ID: [id number]
== END 2022-08-20 15:55 | disposition short-term general hospital (02) | DRG 853 ==
LOC: ER 15:01 → 4TH 20:24 → 3RD-ICU 08-20 10:29
PROVIDERS: ADMIT Internal Medicine; ATTEND Internal Medicine
PROC: 0X6T0Z0 Detachment at Left Ring Finger, Complete, Open Approach (ICD-10-PCS; principal; 2022-08-19 10:00)
PROC: 5A1935Z Respiratory Ventilation, Less than 24 Consecutive Hours (ICD-10-PCS; 2022-08-20)
PROC: 0BH17EZ Insertion of Endotracheal Airway into Trachea, Via Natural or Artificial Opening (ICD-10-PCS; 2022-08-20)
PROC: 5A12012 Performance of Cardiac Output, Single, Manual (ICD-10-PCS; 2022-08-20)
DX: A41.50 Gram-negative sepsis, unspecified (principal); J96.00 Acute respiratory failure, unspecified whether with hypoxia or hypercapnia; N18.6 End stage renal disease; R65.21 Severe sepsis with septic shock; L03.114 Cellulitis of left upper limb; L02.512 Cutaneous abscess of left hand; I50.32 Chronic diastolic (congestive) heart failure; E11.52 Type 2 diabetes mellitus with diabetic peripheral angiopathy with gangrene; I13.2 Hypertensive heart and chronic kidney disease with heart failure and with stage 5 chronic kidney disease, or end stage renal disease; E87.1 Hypo-osmolality and hyponatremia; E87.20 Acidosis, unspecified; E11.22 Type 2 diabetes mellitus with diabetic chronic kidney disease; D63.1 Anemia in chronic kidney disease; E78.5 Hyperlipidemia, unspecified; E03.9 Hypothyroidism, unspecified; Z78.1 Physical restraint status; Z99.2 Dependence on renal dialysis; Z79.4 Long term (current) use of insulin; Z86.73 Personal history of transient ischemic attack (TIA), and cerebral infarction without residual deficits; Z86.16 Personal history of COVID-19; Z90.49 Acquired absence of other specified parts of digestive tract; Z79.82 Long term (current) use of aspirin; Z79.899 Other long term (current) drug therapy; Z79.890 Hormone replacement therapy; Z89.511 Acquired absence of right leg below knee; Z89.022 Acquired absence of left finger(s); Z20.822 Contact with and (suspected) exposure to COVID-19
CPT/HCPCS: 36415; 71045; 74018; 80048; 80069; 80202; 82805; 82947; 83036; 83605; 83735; 83880; 84145; 84484; 85025; 85610; 86140; 87040; 87070; 87075; 87077; 87186; 87205; 87811; 88305; 93005; 93306; 93931; 93971; 94002; 96365; 96375; 99285; J0171; J0295; J0461; J0692; J1644; J1815; J2001; J2250; J2270; J2370; J2704; J3010; J3370; J7030; J7040; J7050; J7120